=== PATIENT | male | born 1970 | race Caucasian/White ===

== ENCOUNTER 2023-12-22 18:06 | Inpatient (IN) | payer BC, SELFPAY ==
[2023-12-22 18:07] VITALS: BP 134/78; PULSE 90; RESP 18; TEMP 36.4; O2SAT 94
[2023-12-22 20:07] VITALS: BP 147/80; PULSE 78; RESP 17; O2SAT 98
[2023-12-22] MEDS: Ceftriaxone 1 GM/50 ML BAG IV (20:31)
[2023-12-22] MEDS: 0.9% Normal Saline (500mL Bag) 500 ML 999 ML IV (20:32)
[2023-12-22] MEDS: Morphine 4 MG/ML Syringe IV (20:50)
[2023-12-22] MEDS: Ondansetron 4 MG/2 ML Vial IV (20:50)
[2023-12-22 21:02] LABS: Lactic Acid 1.8 mmol/L (0.4-1.9)
[2023-12-22 21:10] LABS: Absolute Lymphocyte Count 2.21 X10^3/uL (0.83-4.51); Absolute Neutrophil Count 6.9 X10^3/uL (2.0-7.7); Basophil# 0.03 X10^3/uL; Basophil% 0.3 % (0-1); Hematocrit 51.8 % (40-54); Hemoglobin 16.8 g/dL (13.0-16.5); Lymphocyte # 2.21 X10^3/ul (0.83-4.51); Lymphocyte % 21.6 % (19-41); Mean Corp Hgb Conc 32.4 g/dL (32-36); Mean Corpuscular Hgb 29.2 pg (27.0-32.0); Mean Corpuscular Volume 89.9 fL (80-94); Mean Platelet Vol. 10.4 fl (6.2-12.0); Monocyte# 0.84 X10^3/uL; Monocyte% 8.2 % (0-10); NRBC Flagged by Analyzer 0 % (0-5); Neutrophil # 6.93 X10^3/uL (2.7-7.7); Neutrophil % 67.6 % (47-70); Platelet Count 324 K/mm3 (150-450); RBC Distribution Width CV 14.8 % (11.6-14.6); RBC Distribution Width SD 48.8 fl (35.1-43.9); Red Blood Count 5.76 M/mm3 (4.6-6.2); White Blood Count 10.2 K/mm3 (4.4-11.0)
[2023-12-22 21:16] LABS: International Normalized Ratio 1.1; Prothrombin Time (Protime)PT. 14.5 SECONDS (11.7-14.9)
[2023-12-22 21:17] LABS: Partial Thromboplast Time 29.6 Seconds (24.1-36.2)
[2023-12-22 21:27] VITALS: BP 168/105; PULSE 78; RESP 17; TEMP 36.6; O2SAT 99
[2023-12-22 21:30] LABS: ALB/GLOB Ratio 0.7 RATIO (0.9-2.4); AST(SGOT) 24 U/L (15-37); Alanine Aminotransfer ALT/SGPT 28 U/L (16-61); Albumin, Serum 3.3 g/dL (3.2-5.0); Alkaline Phosphatase 192 U/L (45-117); Anion Gap 4 (5-15); BUN 9 mg/dL (7-18); BUN/Creat Ratio 10.8 RATIO (10-20); Chloride 100 mmol/L (98-107); Creatinine, Serum 0.84 mg/dL (0.70-1.30); EST Glomerular Filtration Rate 103 mL/min (>60); Est Glom Filt Rate - Afr Amer 124 mL/min (>60); Globulin 4.9 g/dL (2.2-4.2); Glucose 98 mg/dL (74-106); Protein, Total 8.2 g/dL (6.4-8.2); Sodium Level 137 mmol/L (136-145)
--- NOTE | 2023-12-22 21:35 | RAD_ITS ---
INDICATION: BILATERAL EXTREMITY CELLULITIS EXAMINATION/TECHNIQUE: X-RAY - RIGHT XR Tibia/Fibula 2 Views COMPARISON: None. FINDINGS: SOFT TISSUES: Diffuse soft tissue swelling. No evidence of soft tissue gas. BONES/JOINTS: No fracture or dislocation. Severe degenerative changes of the knee. No erosive changes. RAD/Tibia & Fibula 2 Views IMPRESSION: Diffuse soft tissue swelling with no evidence of soft tissue gas and no acute osseous abnormality. Electronically Signed: Fernando Thomas DO at 22:06 EDT ,
--- NOTE | 2023-12-22 21:35 | RAD_ITS ---
INDICATION: Bilateral extremity cellulitis EXAMINATION/TECHNIQUE: X-RAY - LEFT XR Tibia/Fibula 2 Views COMPARISON: None. FINDINGS: SOFT TISSUES: Diffuse soft tissue swelling. No evidence of soft tissue gas. BONES/JOINTS: No fracture or dislocation. Severe degenerative changes of the knee. No erosive changes. RAD/Tibia & Fibula 2 Views IMPRESSION: Diffuse soft tissue swelling with no evidence of soft tissue gas and no acute osseous abnormality. Electronically Signed: Fernando Thomas DO at 22:07 EDT ,
--- NOTE | 2023-12-22 21:35 | RAD_ITS ---
INDICATION: sob EXAMINATION/TECHNIQUE: X-RAY - XR Chest 1 View COMPARISON: None. FINDINGS: LINES/DEVICES: None. LUNGS: No consolidation or evidence of an effusion. No evidence of edema or a pneumothorax. Pulmonary vascular congestion. MEDIASTINUM AND CARDIOVASCULAR STRUCTURES: Cardiac silhouette is normal in size and contour. Mediastinum is unremarkable. BONES AND SOFT TISSUES: No acute abnormality. RAD/Chest 1 View (Portable) IMPRESSION: Pulmonary vascular congestion. Electronically Signed: Fernando Thomas DO at 22:05 EDT ,
[2023-12-22 21:44] LABS: BNP,B-Type NATRIURETIC PEPTIDE 21.3 pg/mL (0-100)
[2023-12-22 22:00] VITALS: BP 102/76; PULSE 63; RESP 13; O2SAT 97
[2023-12-22 22:03] VITALS: BP 130/78; PULSE 84; RESP 16; TEMP 36.9; O2SAT 98
--- NOTE | 2023-12-22 22:04 | EX.ED.DYSGE1 ---
HPI History of Present Illness Chief Complaint: Wound Narrative Narrative: Patient is a 53-year-old male with no known significant past medical history does not follow with a physician on regular basis who presents to the emerged part with a chief complaint of bilateral lower extremity wounds. He states that he was recently admitted to [facility] for wounds to the bilateral lower extremities he states that he was given injections into his abdomen and that made him pee to get fluid off of him he states that he was given IV antibiotics however he states that he has not been on any antibiotics for quite some time now. He states that he has increasing redness and pain in the lower extremities prompting him to come here for further evaluation management today. Patient rates his pain a 7 out of 10 on exam bilaterally. Patient denies any history of blood clots. [facility] Medical History (Updated 12/22/23 @ 22:[address] Brennon Steiner DO) Tobacco abuse History of cellulitis Morbid obesity Medical History no medical history Allergy/AdvReac Type Severity Reaction Status Date / Time No Known Allergies Allergy Verified 12/22/23 18:07 Family History no significant family his Surgical History no surgical history Social History Smoking Status: Current every day smoker tobacco type: cigarettes ROS ROS ED ROS Narrative Constitutional: Complains of chills denies any fevers, headaches, lightness, dizziness Eyes: Denies any changes in vision double vision blurry vision Cardiovascular: Denies chest pain or palpitations Respiratory: Denies coughing wheezing shortness of breath Abdomen: Denies abdominal pain nausea vomit diarrhea : Denies any urinary symptoms Neurological: Denies numbness, weakness, tingling Musculoskeletal: Complains of bilateral extremity swelling and wounds as noted above Skin: Complains of lower extremity wounds as noted above EXAM Physical Exam Narrative Exam Narrative: General: Patient lying in bed did appear to be uncomfortable secondary to his leg pain Head: Atraumatic, normocephalic Eyes: PERRL bilaterally, EOMI bilateral, no conjunctival injection noted Neck: Soft, supple, trach midline Cardiovascular: Regular rate and rhythm no murmurs gallops rubs noted Respiratory: Clear to auscultation bilaterally Abdomen: Soft, no tenderness palpation Extremities: Patient has 2+ pitting edema in the bilateral lower extremities, +4/5 strength noted in the bilateral upper and lower extremities Neurological: Patient is following commands knew that he was at [facility] years 2023 Skin: Patient has bilateral lower extremity cellulitis noted on exam with chronic wounds in the lower extremities no purulent drainage noted Const Vital Signs: 12/22/23 18:07 12/22/23 20:07 12/22/23 20:26 Temperature 97.6 F L Temperature Source Temporal Pulse Rate 90 78 Respiratory Rate 18 17 Blood Pressure 134/78 H 147/80 H Blood Pressure Mean 96 102 Pulse Ox 94 98 Oxygen Delivery Method Room Air Room Air Room Air 12/22/23 21:27 12/22/23 22:00 12/22/23 22:03 Temperature 98 F 98.4 F Temperature Source Temporal Pulse Rate 78 63 84 Respiratory Rate 17 13 16 Blood Pressure 168/105 H 102/76 130/78 H Blood Pressure Mean 126 84 95 Pulse Ox 99 97 98 Oxygen Delivery Method MDM MDM MDM Narrative Medical decision making narrative: Patient is a 53-year-old male who presented to the emergency department chief complaint of bilateral lower extremity swelling and wounds. Patient will have a workup performed here on the differential diagnose includes Melamin to bilateral lower extremity cellulitis, CHF, osteomyelitis. Once workup is obtained reviewed he will be reevaluated. Patient will be given IV fluids however will not be given the full 30 cc/kg bolus as there is concern for a component of CHF exacerbation/volume overload. Patient be given vancomycin and Rocephin. Once the labs are obtained and reviewed he will be reevaluated. Patient CBC reviewed and was largely unremarkable no evidence leukocytosis white blood count normal at 10.2, hemoglobin was 16.8, platelet count normal at 324. Patient's INR normal 1.1, sodium normal 137, potassium normal at 4, creatinine normal at 0.84. Patient's AST and ALT were normal at 24 and 28 respectively, lactic acid normal 1.8, proBNP normal at 21.3. Patient's EKG reviewed showed sinus rhythm with a rate of 81 bpm. Patient's x-rays reviewed of his chest and showed concern for pulmonary vascular congestion. Patient's x-ray of his tibia-fibula is showed diffuse soft tissue swelling with no evidence of soft tissue gas and no osseous abnormality. Patient's x-ray of his tibia-fibula on the right showed diffuse soft tissue swelling as well no evidence of gas or any osseous abnormality. At this point in time do believe the patient will warrant admission to the hospital for his bilateral lower extremity cellulitis and likely volume overload status. Patient's case was discussed with hospitalist Dr. Pérez who accept patient for admission. Patient was notified with all question concerns answered at bedside. Lab Data Labs: Laboratory Results - last 24 hr 12/22/23 12/22/23 12/22/23 20:10 20:15 22:21 WBC 10.2 RBC 5.76 Hgb 16.8 H Hct 51.8 MCV 89.9 MCH 29.2 MCHC 32.4 RDW Std Deviation 48.8 H RDW Coeff of Pradeep 14.8 H Plt Count 324 MPV 10.4 Immature Gran % (Auto) 0.300 Neut % (Auto) 67.6 Lymph % (Auto) 21.6 [place] % (Auto) 8.2 Eos % (Auto) 2.0 Baso % (Auto) 0.3 Absolute Neuts (auto) 6.9 Absolute Lymphs (auto) 2.21 Nucleated RBC % 0 PT 14.5 INR 1.1 APTT 29.6 Sodium 137 Potassium 4.0 Chloride 100 Carbon Dioxide 33.0 H Anion Gap 4 L BUN 9 Creatinine 0.84 Est GFR (MDRD) Af Amer 124 Est GFR (MDRD) Non-Af 103 BUN/Creatinine Ratio 10.8 Glucose 98 Lactic Acid 1.8 Calcium 9.0 Total Bilirubin 0.90 AST 24 ALT 28 Alkaline Phosphatase 192 H B-Natriuretic Peptide 21.3 Cancelled Total Protein 8.2 Albumin 3.3 Globulin 4.9 H Albumin/Globulin Ratio 0.7 L Radiography Diagnostic Testing: Clinical Impression(s) from Imaging Studies Chest X-Ray 12/22/23 21:35 IMPRESSION: Pulmonary vascular congestion. Electronically Signed: Fernando Thomas DO at 22:05 EDT , Tibia/Fibula X-Ray 12/22/23 21:35 IMPRESSION: Diffuse soft tissue swelling with no evidence of soft tissue gas and no acute osseous abnormality. Electronically Signed: Fernando Thomas DO at 22:07 EDT , Tibia/Fibula X-Ray 12/22/23 21:35 IMPRESSION: Diffuse soft tissue swelling with no evidence of soft tissue gas and no acute osseous abnormality. Electronically Signed: Fernando Thomas DO at 22:06 EDT , Discharge Plan Triage Chief Complaint: Wound ED Provider: Brennon Steiner Dx/Rx/DC Orders Clinical Impression: Edema, Cellulitis Primary Care Provider: Care Physician,No Primary
--- NOTE | 2023-12-22 22:23 | PCM.HP.STD ---
HPI - General General Date of Admission: 12/22/23 Date of Service: 12/22/23 Chief Complaint: Bilateral leg pain, swelling, wounds HPI Narrative AZALIA MARTÍNEZ, is a 53 M who presented to the emergency department at [facility] on 12/22/2019 for with worsening bilateral lower extremity swelling, pain, and wounds that have been present for some time. The patient reports that he had recently been admitted at [facility]. He reported that since his discharge he is getting worse. He denies any knowledge of being treated with antibiotics there and states he takes no chronic medications and has been on no medications recently. He has a friend at the bedside who has been assisting in taking care of him. 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 He states he was told his oxygen levels drop at night but have never been tested for sleep apnea. He denies any chest pain or shortness of breath but states his swelling in his legs has been worsening. He does admit to tobacco abuse. Vital signs on presentation showed temperature of 97.6, heart rate 90, blood pressure 134/78, pulse ox 94% on room air. CBC shows erythrocytosis but is otherwise unremarkable with no leukocytosis or left shift. Coags are normal. Chemistry panel is normal except elevated serum bicarb of 33 which I highly suspect is chronic. Glucose level is normal. Lactic acid was 1.8. Liver functions are unremarkable. UA is not consistent with infection. Chest x-ray shows pulmonary vascular congestion but is otherwise unremarkable. Bilateral tibia and fibula films shows soft tissue changes with no deep changes or pocketing/abscess. He was treated with ceftriaxone emergency department and request for admission was made. [facility] Medical History (Updated 12/23/23 @ 00:50 by Cleo Moses) COPD (chronic obstructive pulmonary disease) Tobacco abuse History of cellulitis Morbid obesity Medical History no medical history Home Medications ?Medication ?Instructions ?Recorded ?Last Taken ?Type NK 12/22/23 Unknown History Allergy/AdvReac Type Severity Reaction Status Date / Time No Known Allergies Allergy Verified 12/22/23 18:07 Family History no significant family his no significant family history Surgical History (Updated 12/23/23 @ 00:50 by Cleo Moses) History of appendectomy Surgical History no surgical history Social History (Updated 12/23/23 @ 00:[address] 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 Smoking Status: Current every day smoker tobacco type: cigarettes alcohol intake: never substance use type: does not use ROS Constitutional Constitutional: Denies anorexia, change in weight, chills, fatigue, fever(s), malaise, night sweats, weakness or other Eyes Eyes: Denies blurry vision, change in eye color, change in vision, discharge from eye(s), double vision, erythema, eye pain, loss of vision or other ENT HEENT: Denies abnormal hearing, dysphagia, ear pain, epistaxis, headache(s), hearing loss, nasal congestion, nasal discharge, post nasal drip, sinus pressure, sore throat or other Cardiovascular Cardiovascular: Reports edema; Denies chest pain, claudication, dyspnea on exertion, lightheadedness, orthopnea, palpitations, paroxysmal nocturnal dyspnea, rapid heart rate, syncope or other Respiratory/Chest Respiratory/Chest: Denies cough, dyspnea, excessive phlegm production, hemoptysis, productive cough, shortness of breath at rest, shortness of breath with exertion, wheezing or other Gastrointestinal Gastrointestinal: Denies abdominal pain, coffee ground emesis, constipation, diarrhea, dyspepsia, hematemesis, hematochezia, loose stools, melena, nausea, vomiting or other Genitourinary Genitourinary: Denies burning urination, difficulty urinating, dysuria, hematuria, nocturia, urinary frequency, urinary hesitancy, urinary incontinence, urinary urgency or other Musculoskeletal Musculoskeletal: Reports back pain, joint pain and joint stiffness; Denies arthralgias, joint swelling, myalgias, neck pain or other Integumentary Integumentary: Reports dry skin, lesions, rash and wounds; Denies jaundice, new lesions, pruritus or other Neurologic Neurologic: Denies abnormal gait, abnormal speech, confusion, disequilibrium, dizziness, focal weakness, headache(s), numbness, paresthesias, seizure-like activity, seizures, syncope, tingling, tremor(s) or other Psychiatric Psychiatric: Denies anxiety, depression, homicidal ideation, suicidal ideation or other Endocrine Endocrinology: Denies change in body appearance, cold intolerance, excessive sweating, heat intolerance, polydipsia, polyuria or other Hematologic/Lymphatic Hematologic/Lymphatic: Denies anemia, easy bleeding, easy bruising, lymphadenopathy or other Allergic/Immunologic Allergic/Immunologic: Denies rhinitis, hives, eczemia, asthma or other Vital Signs Vital Signs Vital Signs: 12/22/23 18:07 12/22/23 20:07 12/22/23 20:26 Temperature 97.6 F L Temperature Source Temporal Pulse Rate 90 78 Respiratory Rate 18 17 Blood Pressure 134/78 H 147/80 H Blood Pressure Mean 96 102 Pulse Ox 94 98 Oxygen Delivery Method Room Air Room Air Room Air 12/22/23 21:27 12/22/23 22:00 12/22/23 22:03 Temperature 98 F 98.4 F Temperature Source Temporal Pulse Rate 78 63 84 Respiratory Rate 17 13 16 Blood Pressure 168/105 H 102/76 130/78 H Blood Pressure Mean 126 84 95 Pulse Ox 99 97 98 Oxygen Delivery Method Physical Exam Const alert, oriented x3, no apparent distress and well nourished; Negative for average body habitus or healthy appearing Constitutional Narrative: Super morbidly obese, white male, sitting up in a bed, appears comfortable, does not appear toxic, friend at bedside, somewhat disheveled General Appearance: cooperative HEENT normocephalic, head/scalp atraumatic, hearing grossly normal bilaterally and moist oral mucous membranes HEENT Narrative: Mallampati is 3, dentition is poor, no thrush Eyes PERRL, EOMs intact bilaterally and conjunctivae normal Eyes Narrative: No scleral icterus Neck no lymphadenopathy and supple Neck Narrative: Neck is short and thick, trachea midline, no thyroid enlargement Resp normal respiratory effort, no retractions, no use of accessory muscles and clear to auscultation bilaterally Resp Narrative: Distant breath sounds due to body habitus, diminished diffusely without any adventitious sounds Auscultation: Negative for crackles, rhonchi or wheezes Cardio regular rate, regular rhythm, S1 normal heart sound, S2 normal heart sound, no murmurs, no rub, no gallops and no clicks Cardio Narrative: Distant heart tones GI normal to inspection, nondistended, normoactive bowel sounds, soft to palpation and non-tender GI Narrative: Large protuberant abdomen Extremity Extremity Narrative: 3+ bilateral lower extremity edema, no cyanosis or clubbing, significant onychomycosis Skin No no rashes or lesions noted, No no wounds, skin turgor normal, no jaundice, no petechiae and no mottling Skin Narrative: Bilateral lower extremities with erythema and edema and tenderness to palpation, multiple superficial wounds noted with purulent drainage from ankle to knee area Neuro oriented x3, CN's II-XII intact bilaterally, moves all extremities and no focal motor deficits Speech: speech normal Psych affect normal Psych Narrative: Eye contact is good and patient interacts appropriately Results Lab / Micro Data 12/22/23 20:10 12/22/23 20:10 Labs: Laboratory Results - last 24 hr 12/22/23 20:10: WBC 10.2, RBC 5.76, Hgb 16.8 H, Hct 51.8, MCV 89.9, MCH 29.2, MCHC 32.4, RDW Std Deviation 48.8 H, RDW Coeff of Pradeep 14.8 H, Plt Count 324, MPV 10.4, Immature Gran % (Auto) 0.300, Neut % (Auto) 67.6, Lymph % (Auto) 21.6, [place] % (Auto) 8.2, Eos % (Auto) 2.0, Baso % (Auto) 0.3, Absolute Neuts (auto) 6.9, Absolute Lymphs (auto) 2.21, Nucleated RBC % 0, PT 14.5, INR 1.1, APTT 29.6, Sodium 137, Potassium 4.0, Chloride 100, Carbon Dioxide 33.0 H, Anion Gap 4 L, BUN 9, Creatinine 0.84, Est GFR (MDRD) Af Amer 124, Est GFR (MDRD) Non-Af 103, BUN/Creatinine Ratio 10.8, Glucose 98, Calcium 9.0, Total Bilirubin 0.90, AST 24, ALT 28, Alkaline Phosphatase 192 H, B-Natriuretic Peptide 21.3, Total Protein 8.2, Albumin 3.3, Globulin 4.9 H, Albumin/Globulin Ratio 0.7 L 12/22/23 20:15: Lactic Acid 1.8 Imaging Radiology Impression Chest X-Ray 12/22/23 21:35 IMPRESSION: Pulmonary vascular congestion. Electronically Signed: Fernando Thomas DO at 22:05 EDT , Tibia/Fibula X-Ray 12/22/23 21:35 IMPRESSION: Diffuse soft tissue swelling with no evidence of soft tissue gas and no acute osseous abnormality. Electronically Signed: Fernando Thomas DO at 22:07 EDT , Tibia/Fibula X-Ray 12/22/23 21:35 IMPRESSION: Diffuse soft tissue swelling with no evidence of soft tissue gas and no acute osseous abnormality. Electronically Signed: Fernando ThomasDO at 22:06 EDT , Assessment & Plan Assessment/Plan (1) Cellulitis: (2) Edema: (3) Metabolic alkalosis: (4) Erythrocytosis: PLAN: Plan Bilateral lower extremity wounds and cellulitis -Check cultures of wounds -Blood cultures are pending -Elevate bilateral lower extremities -Wound care consultation -Check MRSA wound PCR -Will cover with broad-spectrum antibiotics for now with vancomycin and Zosyn Lower extremity edema -Highly suspect patient has some component of right-sided heart failure due to untreated sleep apnea -Check echocardiogram -Lasix 40 mg 3 times daily for now -Fluid restrict and sodium restrict diet Metabolic alkalosis -Highly suspect compensatory for respiratory acidosis -Highly suspect patient has obstructive sleep apnea -Should be assessed after discharge for SINA if patient agreeable -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
--- NOTE | 2023-12-22 22:28 | ECHOCS_ITS ---
Reason For Study: CHF Procedure This was a 2D Doppler, Color Flow transthoracic echocardiogram. The study was technically difficult. The study was technically limited. Limited views were obtained. Contrast injection was performed. Due to body habitus. Exam performed portable in patient room. Left Ventricle The left ventricle is not well visualized. The left ventricular ejection fraction is 65 %. Unable to assess diastolic function based on available data. Right Ventricle The right ventricle is not well visualized. Atria The left atrium is not well visualized. The right atrium is not well visualized. Mitral Valve Mitral valve not well visualized. Tricuspid Valve The tricuspid valve is not well visualized. Aortic Valve The aortic valve is not well visualized. Pulmonic Valve The pulmonic valve is not well visualized. Great Vessels The aortic root is not well visualized. Pericardium/Pleural No pericardial effusion. Medication Diluted definity 9.0ml given slow IV push to enhance endocardial definition. MMode/2D Measurements & Calculations LVIDd: 5.4 cm IVSd: 1.2 cm Ao root diam: 3.0 cm LVIDs: 3.5 cm LVPWd: 1.2 cm FS: 35.7 % LVAd ap4: 34.0 cm2 SV(MOD-sp4): 68.8 ml SV(sp4-el): 71.7 ml LVLd ap4: 8.6 cm EDV(MOD-sp4): 112.2 ml EDV(sp4-el): 114.6 ml LVAs ap4: 20.0 cm2 LVLs ap4: 7.9 cm ESV(MOD-sp4): 43.4 ml ESV(sp4-el): 42.9 ml EF(MOD-sp4): 61.3 % EF(sp4-el): 62.5 % LA dimension(2D): 3.2 cm Doppler Measurements & Calculations PA V2 max: 86.7 cm/sec PA V2 mean: 55.5 cm/sec PA V2 VTI: 14.4 cm ECHO/Echo Complete W/ Contrast Interpretation Summary Technically difficult study with suboptimal images. The left ventricular ejection fraction is estimated at 65%. Ordering Physician: Irena Pérez Referring Physician: SARAI PCP Performed By: Farheen Mendez RDCS, RVT
[2023-12-22 22:49] LABS: Squamous Epithelial Cells - UA 0 SEEN /hpf (0-5)
[2023-12-22] MEDS: Ketorolac 15 MG/ML Vial IV (22:49)
[2023-12-22 22:58] LABS: Color, Urine Yellow (Yellow); Glucose, Dipstick Normal (Normal); Ketone-Dipstick 5 mg/dl (Negative); Leukocyte Esterase-Dipstick 25 /ul (Negative); Nitrite-Dipstick Negative (Negative); Occult Blood-Urine Negative /ul (Negative); Protein-Dipstick 30 mg/dl (Negative); Specific Gravity, Urine 1.025 (1.002-1.030); Urine Clarity Sl. Cloudy (Clear); Urine Urobilinogen 4 mg/dl (Normal)
[2023-12-22 23:00] VITALS: BP 122/52; PULSE 76; RESP 12; TEMP 36.6; O2SAT 97
[2023-12-22 23:08] LABS: Bacteria 1+ /hpf (None Seen); Mucous, Urine 1+ /hpf (<or=2+); Red Blood Cells-Urine 0-5 SEEN /hpf (0-5); Urine Bilirubin Dipstick 1 mg/dL (Negative); White Blood Cells 0-5 SEEN /hpf (0-5)
[2023-12-23] VITALS (15 sets, daily range): BP systolic 119–147; BP diastolic 65–86; PULSE 71–82; RESP 16–20; TEMP 36.4–36.8; O2SAT 76–96; BMI 65.0; BMI 64.8
--- NOTE | 2023-12-23 00:58 | VDLE_ITS ---
Reason For Study: BLE Swelling RIGHT LEFT GSV is normal. GSV is normal. CFV is compressible, spontaneous, phasic, CFV is compressible, spontaneous, phasic, competent and demonstrates normal competent, and demonstrates normal augmentation. augmentation. FV is compressible, spontaneous, phasic, FV is compressible, spontaneous, phasic, competent and demonstrates normal competent and demonstrates normal augmentation. augmentation. POP V is compressible, spontaneous, phasic, POP V is compressible, spontaneous, phasic, competent and demonstrates normal competent and demonstrates normal augmentation. augmentation. T/P Trunk is compressible. T/P Trunk is compressible. PTV is compressible. PTV is compressible. RT PerV is compressible. LT PerV is compressible. Procedure This is a venous duplex using B-mode, color flow and spectral Doppler. Exam performed in department. The exam was diagnostic. The study was technically difficult. Limited views were obtained. A preliminary report was called and/or faxed to M/S 3 RN. VL/Venous Duplex US - Sammy Extrem Interpretation Summary Deep veins of the lower extremities are bilaterally patent and compressible seg mentally. There is no evidence of deep vein thrombosis on either side. Valvular competence appears in tact within the proximal deep venous systems bilaterally. The great saphenous veins appear bila terally patent and compressible segmentally. Ordering Physician: Irena Pérez Performed By: Chris Lozada, RVT
[2023-12-23] MEDS: Vancomycin HCl 2,000 MG in 0.9% Normal Saline (500mL Bag) 500 ML 250 MG IV (01:31)
[2023-12-23] MEDS: oxyCODONE 5 MG Tablet PO ×3 (01:40→19:51)
[2023-12-23] MEDS: MELATONIN 3 MG TABLET PO (01:41)
[2023-12-23] MEDS: Acetaminophen 325 MG Tablet 650 MG PO ×3 (01:41→19:51)
[2023-12-23] MEDS: Furosemide 40 MG/4 ML Vial IV ×4 (01:41→22:03)
[2023-12-23] MEDS: Senna/Docusate Sodium 1 Tablet 2 TABLET PO (02:09)
--- NOTE | 2023-12-23 02:18 | PCM.RX.CS ---
Consult Antibiotic Management Pharmacy has been consulted to manage selected antibiotic: Vancomycin Type of Intervention Type of Consult: New start Labs Labs: Sodium 137 mmol/L (136-145) 12/22/23 20:10 Potassium 4.0 mmol/L (3.5-5.1) 12/22/23 20:10 Chloride 100 mmol/L (98-107) 12/22/23 20:10 Carbon Dioxide 33.0 mmol/L (21.0-32.0) H 12/22/23 20:10 Anion Gap 4 (5-15) L 12/22/23 20:10 BUN 9 mg/dL (7-18) 12/22/23 20:10 Creatinine 0.84 mg/dL (0.70-1.30) 12/22/23 20:10 Est GFR (MDRD) Af Amer 124 mL/min (>60) 12/22/23 20:10 Est GFR (MDRD) Non-Af 103 mL/min (>60) 12/22/23 20:10 BUN/Creatinine Ratio 10.8 RATIO (10-20) 12/22/23 20:10 Glucose 98 mg/dL (74-106) 12/22/23 20:10 Dosing Weight Weight used for dosin.3 kg Estimated Creatinine Clearance Estimated Creatinine Clearance: >120 Goal Trough Goal Trough: 15-20 mcg/mL Pharmacy Plan for Drug Dosing Pharmacy Plan for Drug Dosing: Pharmacy Service will continue to monitor and adjust dosing as required. LOADING DOSE 2GM. 1500MG Q8H TROUGH PRIOR TO 4TH DOSE Follow-Up Labs Follow-Up Labs: Trough: Vancomycin Date/Time Labs Ordered Labs to be done on [date and time ordered]: 12/23 @ 0100
[2023-12-23] MEDS: Piperacil/Tazobactam 3.375 GM in 0.9% Normal Saline (50mL MB+) 50 ML IV ×3 (06:02→22:04)
[2023-12-23 07:07] LABS: Absolute Lymphocyte Count 1.69 X10^3/uL (0.83-4.51); Absolute Neutrophil Count 3.9 X10^3/uL (2.0-7.7); Basophil# 0.05 X10^3/uL; Basophil% 0.8 % (0-1); Eosinophil# 0.24 X10^3/uL; Eosinophils% 3.6 % (0-5); Hematocrit 51.2 % (40-54); Hemoglobin 16.1 g/dL (13.0-16.5); Lymphocyte # 1.69 X10^3/ul (0.83-4.51); Lymphocyte % 25.7 % (19-41); Mean Corp Hgb Conc 31.4 g/dL (32-36); Mean Corpuscular Hgb 28.6 pg (27.0-32.0); Mean Corpuscular Volume 91.1 fL (80-94); Mean Platelet Vol. 9.3 fl (6.2-12.0); Monocyte# 0.71 X10^3/uL; Monocyte% 10.8 % (0-10); NRBC Flagged by Analyzer 0 % (0-5); Neutrophil # 3.88 X10^3/uL (2.7-7.7); Neutrophil % 58.9 % (47-70); Platelet Count 262 K/mm3 (150-450); RBC Distribution Width CV 14.6 % (11.6-14.6); RBC Distribution Width SD 48.8 fl (35.1-43.9); Red Blood Count 5.62 M/mm3 (4.6-6.2); White Blood Count 6.6 K/mm3 (4.4-11.0)
--- NOTE | 2023-12-23 07:30 | PN.HOSP_ITS ---
Reason for Visit Reason for Visit: Diagnoses Secondary polycythemia (12/22/23) Alkalosis (12/22/23) Cellulitis, unspecified (12/22/23) Edema, unspecified (12/22/23) Subjective Subjective Patient is a 53-year-old gentleman with chronic lower extremity wounds presented to the emergency department with increasing redness and pain Objective Data Objective Data Vital Signs: Vital Signs Temp Pulse Resp BP Pulse Ox O2 Del Method O2 Flow Rate 97.7 F L 72 16 137/80 H 93 Nasal Cannula 2 12/23/23 06:08 12/23/23 06:08 12/23/23 06:08 12/23/23 06:08 12/23/23 06:08 12/23/23 06:08 12/23/23 06:08 Oxygen Flow Rate (L/min) 2 Oxygen Delivery Method Nasal Cannula Weight: 217.3 kg Body Mass Index (BMI) 64.8 Intake & Output: Intake and Output for Last 24 Hours 12/21/23 12/22/23 12/23/23 23:59 23:59 23:59 Intake Total 550 / 550 740 / 740 Output Total 1000 / 1000 Balance 550 / 550 -260 / -260 Lab / Micro Data 12/23/23 06:48 12/23/23 06:48 Labs: Laboratory Results - last 24 hr 12/22/23 20:10: WBC 10.2, RBC 5.76, Hgb 16.8 H, Hct 51.8, MCV 89.9, MCH 29.2, MCHC 32.4, RDW Std Deviation 48.8 H, RDW Coeff of Pradeep 14.8 H, Plt Count 324, MPV 10.4, Immature Gran % (Auto) 0.300, Neut % (Auto) 67.6, Lymph % (Auto) 21.6, [place] % (Auto) 8.2, Eos % (Auto) 2.0, Baso % (Auto) 0.3, Absolute Neuts (auto) 6.9, Absolute Lymphs (auto) 2.21, Nucleated RBC % 0, PT 14.5, INR 1.1, APTT 29.6, Sodium 137, Potassium 4.0, Chloride 100, Carbon Dioxide 33.0 H, Anion Gap 4 L, BUN 9, Creatinine 0.84, Est GFR (MDRD) Af Amer 124, Est GFR (MDRD) Non-Af 103, BUN/Creatinine Ratio 10.8, Glucose 98, Calcium 9.0, Total Bilirubin 0.90, AST 24, ALT 28, Alkaline Phosphatase 192 H, B-Natriuretic Peptide 21.3, Total Protein 8.2, Albumin 3.3, Globulin 4.9 H, Albumin/Globulin Ratio 0.7 L 12/22/23 20:15: Lactic Acid 1.8 12/22/23 22:21: B-Natriuretic Peptide Cancelled 12/22/23 22:45: Urine Color Yellow, Urine Clarity Sl. Cloudy, Urine pH 5.0, Ur Specific [place] 1.025, Urine Protein 30 H, Urine Glucose (UA) Normal, Urine Ketones 5 H, Urine Occult Blood Negative, Urine Nitrite Negative, Urine Bilirubin 1 H, Urine Urobilinogen 4 H, Ur Leukocyte Esterase 25 H, Urine RBC 0-5 SEEN, Urine WBC 0-5 SEEN, Ur Squamous Epith Cells 0 SEEN, Urine Bacteria 1+, Urine Mucus 1+ 12/23/23 06:48: WBC 6.6, RBC 5.62, Hgb 16.1, Hct 51.2, MCV 91.1, MCH 28.6, MCHC 31.4 L, RDW Std Deviation 48.8 H, RDW Coeff of Pradeep 14.6, Plt Count 262, MPV 9.3, Immature Gran % (Auto) 0.200, Neut % (Auto) 58.9, Lymph % (Auto) 25.7, [place] % (Auto) 10.8 H, Eos % (Auto) 3.6, Baso % (Auto) 0.8, Absolute Neuts (auto) 3.9, Absolute Lymphs (auto) 1.69, Nucleated RBC % 0 Micro: Microbiology 12/23/23 01:55 Wound - Leg Skin and Soft Tissue MRSA/MSSA (PCR - Final Radiography Diagnostic Testing: Radiology Impression Chest X-Ray 12/22/23 21:35 IMPRESSION: Pulmonary vascular congestion. Electronically Signed: Fernando Thomas DO at 22:05 EDT , Tibia/Fibula X-Ray 12/22/23 21:35 IMPRESSION: Diffuse soft tissue swelling with no evidence of soft tissue gas and no acute osseous abnormality. Electronically Signed: Fernando Thomas DO at 22:07 EDT , Tibia/Fibula X-Ray 12/22/23 21:35 IMPRESSION: Diffuse soft tissue swelling with no evidence of soft tissue gas and no acute osseous abnormality. Electronically Signed: Fernando Thomas DO at 22:06 EDT , Physical Exam Narrative GENERAL: cooperative HEENT: Atraumatic; normocephalic EYES; Anicteric, Normal Conjunctiva NECK; supple, normal thyroid, RESPIRATORY: Diminished to auscultation CARDIOVASCULAR: Regular S1 S2, GI: soft, normoactive bowel sounds, : No Renal angle tenderness; EXTREMITIES: Bilateral stasis dermatitis MUSCULOSKELETAL: no muscle wasting NEURO: Awake; no lateralizing signs. SKIN: No Rash PSYCH; Flat affect Assessment & Plan Assessment/Plan (1) Cellulitis: (2) Edema: (3) Metabolic alkalosis: (4) Erythrocytosis: PLAN: Plan Patient is a 53-year-old gentleman with chronic lower extremity wounds presented to the emergency department with increasing redness and pain 1. Bilateral lower extremity wounds with cellulitis ? Patient has been admitted to regular nursing floor started on broad-spectrum antibiotic therapy with vancomycin and Zosyn. MRSA wound PCR was ordered with consultation placed to wound care nurse 2. Bilateral chronic venous stasis ? Patient seen in consultation by wound care. Patient may need compression stockings as outpatient 3. Suspected congestive heart failure with preserved ejection fraction ? Patient placed on diuretic therapy initiated strict input and output Daily weight as well as echo ordered for EF assessment 4. Class III obesity with BMI of 65 ? Complicating care weight loss advised 5. Tobacco dependence ? Counseled on cessation, offered nicotine patch for tobacco cravings 6. Polycythemia ? Suspected to be secondary to chronic hypoxia 7. Suspected sleep apnea ? Patient informed and advised to follow-up with primary care provider for sleep study as outpatient 8. Homelessness ? Impacting patient's care patient apparently lives in his truck 9. DVT prophylaxis ? On enoxaparin Time spent in the patient's overall evaluation,decision-making process, review of diagnostic data, adjustment of management, discussion with other providers, nursing nursing and ancillary staff involved in patient's care documentation, 52 Minutes Charges/Coding Visit Charges Inpatient E&M: 55809 Subs Hosp L3
[2023-12-23 08:18] LABS: Anion Gap 5 (5-15); BUN 9 mg/dL (7-18); BUN/Creat Ratio 12.2 RATIO (10-20); Calcium,Total 8.4 mg/dL (8.5-10.1); Chloride 101 mmol/L (98-107); Creatinine, Serum 0.74 mg/dL (0.70-1.30); EST Glomerular Filtration Rate 118 mL/min (>60); Est Glom Filt Rate - Afr Amer 143 mL/min (>60); Estimated Creatinine Clearance 220.46 ml/min; Glucose 120 mg/dL (74-106); Magnesium 2.2 mg/dL (1.6-2.6); Potassium 3.7 mmol/L (3.5-5.1); Sodium Level 136 mmol/L (136-145)
[2023-12-23] MEDS: Enoxaparin 40 MG/0.4 ML Syringe SC ×2 (09:07→22:04)
--- NOTE | 2023-12-23 09:07 | WOUNDNOTE ---
wound photo: right lower leg
[2023-12-23] MEDS: Menthol/Lanolin/Calamine/Znox 113 GM Tube 1 APPLIC TOPICAL (09:08)
[2023-12-23] MEDS: Nystatin Powder 15gm Bottle 1 APPLIC TOPICAL ×2 (09:08→22:03)
--- NOTE | 2023-12-23 09:08 | WOUNDNOTE ---
wound photo: right posterolateral lower leg
--- NOTE | 2023-12-23 09:08 | WOUNDNOTE ---
wound photo: left lower leg
--- NOTE | 2023-12-23 09:09 | WOUNDNOTE ---
wound photo: left posterior lower leg
[2023-12-23] MEDS: Vancomycin HCl 1,500 MG in 0.9% Normal Saline (500mL Bag) 500 ML 250 MG IV ×2 (09:13→17:02)
--- NOTE | 2023-12-23 09:50 | CASEMGMT ---
RN CM Face to Face with patient for initial transition planning/care coordination assessment. RN CM introduced self and role at [facility]. Patient lying in bed, alert and oriented. Patient willing to participate in assessment and is able to answer all questions appropriately. Care providers, pharmacy, and demographics verified. Strata: 1 PCP: No PCPGOLDEN to provide patient with list Specialists: none [facility]erred [facility]acy[facility] Insurance: [place] Prescription Benefit: yes Living Will/HPOA: none LNOK: friend Living Arrangements: Patient states he currently lives in his semi but just recently purchased a camper to stay in. Patient is independent and states he can perfom his own wound care. Transportation: self, friend DME/HHC: Patient has cane. Denies previous HHC or SNF Patient wishes to discharge home, denies need for home health at this time. Patient states he has no further needs or concerns at this time. CM to follow for discharge planning needs that may arise. Disposition Plan: Patient to discharge home with support from friends and follow-up plans in place. Fabby NUÑEZ, RN, CM
[2023-12-23 09:55] LABS: Phosphorus 4.1 mg/dL (2.5-4.9)
--- NOTE | 2023-12-23 10:49 | CASEMGMT ---
Discharge Planning PCP list sent to RN CM. Aishwarya Webb DC Planning Asst.
--- NOTE | 2023-12-23 15:08 | CASEMGMT ---
Addendum entered by Ana Castro 12/23/23 15:40: LADONNA provided list from [facility] for primary care providers. DARLEEN Holden Original Note: Social Work- SW met with pt, as it was reported that he lives in a semi that he drives. Pt also has a camper on a private lot in [place] that he resides in when he is not on the road. Pt states his primary residence is [facility]. Pt reports that he has no financial needs and needs no community information. SW will remain available to follow. DARLEEN Holden
[2023-12-23] MEDS: Juven (unflavored) Packet 1 PACKET PO (17:03)
[2023-12-24] VITALS (8 sets, daily range): BP systolic 128–136; BP diastolic 60–73; PULSE 69–84; RESP 16–20; TEMP 36.4–36.8; O2SAT 93–96; BMI 67.3
[2023-12-24] MEDS: oxyCODONE 5 MG Tablet PO ×4 (01:33→21:19)
[2023-12-24] MEDS: Acetaminophen 325 MG Tablet 650 MG PO ×3 (01:33→21:19)
[2023-12-24 02:02] LABS: Vancomycin, Trough Level 15.4 ug/mL (5.0-15.0)
[2023-12-24] MEDS: Vancomycin HCl 1,500 MG in 0.9% Normal Saline (500mL Bag) 500 ML 250 MG IV ×3 (02:25→17:44)
[2023-12-24] MEDS: Furosemide 40 MG/4 ML Vial IV ×3 (05:39→21:18)
[2023-12-24] MEDS: Piperacil/Tazobactam 3.375 GM in 0.9% Normal Saline (50mL MB+) 50 ML IV ×3 (05:39→21:18)
[2023-12-24 06:36] LABS: Absolute Lymphocyte Count 1.92 X10^3/uL (0.83-4.51); Absolute Neutrophil Count 3.6 X10^3/uL (2.0-7.7); Basophil# 0.05 X10^3/uL; Basophil% 0.8 % (0-1); Eosinophil# 0.27 X10^3/uL; Eosinophils% 4.2 % (0-5); Hematocrit 50.5 % (40-54); Hemoglobin 15.8 g/dL (13.0-16.5); Lymphocyte # 1.92 X10^3/ul (0.83-4.51); Lymphocyte % 30.1 % (19-41); Mean Corp Hgb Conc 31.3 g/dL (32-36); Mean Corpuscular Hgb 28.5 pg (27.0-32.0); Mean Corpuscular Volume 91.2 fL (80-94); Mean Platelet Vol. 9.3 fl (6.2-12.0); Monocyte# 0.55 X10^3/uL; Monocyte% 8.6 % (0-10); NRBC Flagged by Analyzer 0 % (0-5); Neutrophil # 3.56 X10^3/uL (2.7-7.7); Platelet Count 252 K/mm3 (150-450); RBC Distribution Width CV 14.6 % (11.6-14.6); Red Blood Count 5.54 M/mm3 (4.6-6.2); White Blood Count 6.4 K/mm3 (4.4-11.0)
[2023-12-24 07:07] LABS: Anion Gap 3 (5-15); BUN 14 mg/dL (7-18); BUN/Creat Ratio 19.1 RATIO (10-20); Calcium,Total 8.4 mg/dL (8.5-10.1); Chloride 98 mmol/L (98-107); Creatinine, Serum 0.73 mg/dL (0.70-1.30); EST Glomerular Filtration Rate 119 mL/min (>60); Est Glom Filt Rate - Afr Amer 144 mL/min (>60); Estimated Creatinine Clearance 228.91 ml/min; Glucose 142 mg/dL (74-106); Magnesium 2.2 mg/dL (1.6-2.6); Phosphorus 3.4 mg/dL (2.5-4.9); Potassium 3.5 mmol/L (3.5-5.1); Sodium Level 136 mmol/L (136-145)
--- NOTE | 2023-12-24 07:30 | PN.HOSP_ITS ---
Reason for Visit Reason for Visit: Diagnoses Secondary polycythemia (12/22/23) Alkalosis (12/22/23) Cellulitis, unspecified (12/22/23) Edema, unspecified (12/22/23) Subjective Subjective Patient seen much more interactive compared to previous day. Patient wound PCR came back positive for Staph aureus cultures however still pending Objective Data Objective Data Vital Signs: Vital Signs Temp Pulse Resp BP Pulse Ox O2 Del Method O2 Flow Rate 97.8 F 73 16 136/73 H 96 Nasal Cannula 3 12/24/23 05:37 12/24/23 05:37 12/24/23 05:37 12/24/23 05:37 12/24/23 05:37 12/24/23 05:37 12/24/23 05:37 Oxygen Flow Rate (L/min) 3 Oxygen Delivery Method Nasal Cannula Weight: 225.4 kg Body Mass Index (BMI) 67.3 Intake & Output: Intake and Output for Last 24 Hours 12/22/23 12/23/23 12/24/23 23:59 23:59 23:59 Intake Total 550 / 550 2650 / 3450 1380 / 1380 Output Total 4000 / 5550 2550 / 2550 Balance 550 / 550 -1350 / -2100 -1170 / -1170 Lab / Micro Data 12/24/23 06:14 12/24/23 06:14 Labs: Laboratory Results - last 24 hr 12/23/23 06:48: Sodium 136, Potassium 3.7, Chloride 101, Carbon Dioxide 30.0, Anion Gap 5, BUN 9, Creatinine 0.74, Estim Creat Clear Calc 220.46, Est GFR (MDRD) Af Amer 143, Est GFR (MDRD) Non-Af 118, BUN/Creatinine Ratio 12.2, G lucose 120 H, Calcium 8.4 L, Phosphorus 4.1, Magnesium 2.2, TSH 3.150 12/24/23 01:05: Vancomycin Trough 15.4 H 12/24/23 06:14: WBC 6.4, RBC 5.54, Hgb 15.8, Hct 50.5, MCV 91.2, MCH 28.5, MCHC 31.3 L, RDW Std Deviation 49.0 H, RDW Coeff of Pradeep 14.6, Plt Count 252, MPV 9.3, Immature Gran % (Auto) 0.300, Neut % (Auto) 56.0, Lymph % (Auto) 30.1, [place] % (Auto) 8.6, Eos % (Auto) 4.2, Baso % (Auto) 0.8, Absolute Neuts (auto) 3.6, Absolute Lymphs (auto) 1.92, Nucleated RBC % 0, Sodium 136, Potassium 3.5, Chloride 98, Carbon Dioxide 35.0 H, Anion Gap 3 L, BUN 14, Creatinine 0.73, Estim Creat Clear Calc 228.91, Est GFR (MDRD) Af Amer 144, Est GFR (MDRD) Non-Af 119, BUN/Creatinine Ratio 19.1, Glucose 142 H, Calcium 8.4 L, Phosphorus 3.4, Magnesium 2.2 Micro: Microbiology 12/23/23 01:55 Skin - Leg Gram Stain - Final 12/23/23 01:55 Wound - Leg Skin and Soft Tissue MRSA/MSSA (PCR - Final Staphylococcus aureus Radiography Diagnostic Testing: Radiology Impression Echocardiogram 12/22/23 22:28 Interpretation Summary Technically difficult study with suboptimal images. The left ventricular ejection fraction is estimated at 65%. Ordering Physician: Irena Pérez Referring Physician: SARAI PCP Performed By: Farheen Mendez, DIAMOND, RVT Venous Doppler Study 12/23/23 00:58 Interpretation Summary Deep veins of the lower extremities are bilaterally patent and compressible segmentally. There is no evidence of deep vein thrombosis on either side. Valvular competence appears intact within the proximal deep venous systems bilaterally. The great saphenous veins appear bilaterally patent and compressible segmentally. Ordering Physician: Irena Pérez Performed By: Chris Lozada RVT Physical Exam Narrative GENERAL: cooperative HEENT: Atraumatic; normocephalic EYES; Anicteric, Normal Conjunctiva NECK; supple, normal thyroid, RESPIRATORY: Diminished to auscultation CARDIOVASCULAR: Regular S1 S2, GI: soft, normoactive bowel sounds, : No Renal angle tenderness; EXTREMITIES: Bilateral stasis dermatitis; wrapped MUSCULOSKELETAL: no muscle wasting NEURO: Awake; no lateralizing signs. SKIN: No Rash PSYCH; Flat affect Assessment & Plan Assessment/Plan (1) Cellulitis: (2) Edema: (3) Metabolic alkalosis: (4) Erythrocytosis: PLAN: Plan Patient is a 53-year-old gentleman with chronic lower extremity wounds presented to the emergency department with increasing redness and pain 1. Bilateral lower extremity wounds with cellulitis ? Patient has been admitted to regular nursing floor started on broad-spectrum antibiotic therapy with vancomycin and Zosyn. MRSA wound PCR was ordered with consultation placed to wound care nurse ? 12/24/2023;Patient seen much more interactive compared to previous day. Patient wound PCR came back positive for Staph aureus cultures however still pending 2. Bilateral chronic venous stasis ? Patient seen in consultation by wound care. Patient may need compression stockings as outpatient 3. Suspected congestive heart failure with preserved ejection fraction ? Patient placed on diuretic therapy initiated strict input and output Daily weight as well as echo ordered for EF assessment 4. Class III obesity with BMI of 65 ? Complicating care weight loss advised 5. Tobacco dependence ? Counseled on cessation, offered nicotine patch for tobacco cravings 6. Polycythemia ? Suspected to be secondary to chronic hypoxia 7. Suspected sleep apnea ? Patient informed and advised to follow-up with primary care provider for sleep study as outpatient 8. Homelessness ? Impacting patient's care patient apparently lives in his truck 9. DVT prophylaxis ? On enoxaparin Time spent in the patient's overall evaluation,decision-making process, review of diagnostic data, adjustment of management, discussion with other providers, nursing nursing and ancillary staff involved in patient's care documentation, 38 minutes Charges/Coding Visit Charges Inpatient E&M: 52438 Subs Hosp L2
[2023-12-24] MEDS: Juven (unflavored) Packet 1 PACKET PO ×2 (10:00→17:44)
[2023-12-24] MEDS: Nystatin Powder 15gm Bottle 1 APPLIC TOPICAL (10:01)
[2023-12-24] MEDS: Menthol/Lanolin/Calamine/Znox 113 GM Tube 1 APPLIC TOPICAL (10:01)
[2023-12-24] MEDS: Enoxaparin 40 MG/0.4 ML Syringe SC ×2 (10:01→21:18)
[2023-12-25] MEDS: Vancomycin HCl 1,500 MG in 0.9% Normal Saline (500mL Bag) 500 ML 250 MG IV ×2 (02:00→10:23)
[2023-12-25 02:07] VITALS: BP 118/70; PULSE 74; RESP 18; TEMP 36.6; O2SAT 94
[2023-12-25] MEDS: Furosemide 40 MG/4 ML Vial IV (05:08)
[2023-12-25] MEDS: Piperacil/Tazobactam 3.375 GM in 0.9% Normal Saline (50mL MB+) 50 ML IV (05:09)
[2023-12-25 05:12] VITALS: BP 117/75; PULSE 85; RESP 18; TEMP 36.6; O2SAT 92
[2023-12-25 05:20] VITALS: BMI 67.3
[2023-12-25 06:41] LABS: Absolute Lymphocyte Count 2.03 X10^3/uL (0.83-4.51); Absolute Neutrophil Count 3.6 X10^3/uL (2.0-7.7); Basophil# 0.05 X10^3/uL; Basophil% 0.8 % (0-1); Eosinophil# 0.26 X10^3/uL; Eosinophils% 4.1 % (0-5); Hematocrit 51.2 % (40-54); Hemoglobin 16.2 g/dL (13.0-16.5); Lymphocyte # 2.03 X10^3/ul (0.83-4.51); Lymphocyte % 31.7 % (19-41); Mean Corp Hgb Conc 31.6 g/dL (32-36); Mean Corpuscular Hgb 28.5 pg (27.0-32.0); Mean Platelet Vol. 9.4 fl (6.2-12.0); Monocyte# 0.51 X10^3/uL; NRBC Flagged by Analyzer 0 % (0-5); Neutrophil # 3.55 X10^3/uL (2.7-7.7); Neutrophil % 55.2 % (47-70); Platelet Count 271 K/mm3 (150-450); RBC Distribution Width CV 14.2 % (11.6-14.6); RBC Distribution Width SD 46.6 fl (35.1-43.9); Red Blood Count 5.69 M/mm3 (4.6-6.2); White Blood Count 6.4 K/mm3 (4.4-11.0)
[2023-12-25] MEDS: Acetaminophen 325 MG Tablet 650 MG PO ×2 (06:50→13:07)
[2023-12-25] MEDS: oxyCODONE 5 MG Tablet PO ×2 (06:50→13:07)
--- NOTE | 2023-12-25 07:28 | PN.HOSP_ITS ---
Reason for Visit Reason for Visit: Diagnoses Secondary polycythemia (12/22/23) Alkalosis (12/22/23) Cellulitis, unspecified (12/22/23) Edema, unspecified (12/22/23) Subjective Subjective Patient seen plan is for patient to be assessed for possible discharge Objective Data Objective Data Vital Signs: Vital Signs Temp Pulse Resp BP Pulse Ox O2 Del Method O2 Flow Rate 97.8 F 85 18 117/75 92 Room Air 4 12/25/23 05:12 12/25/23 05:12 12/25/23 05:12 12/25/23 05:12 12/25/23 05:12 12/25/23 05:12 12/24/23 11:47 Oxygen Flow Rate (L/min) 4 Oxygen Delivery Method Room Air Weight: 225.4 kg Body Mass Index (BMI) 67.3 Intake & Output: Intake and Output for Last 24 Hours 12/23/23 12/24/23 12/25/23 23:59 23:59 23:59 Intake Total 2650 / 3450 3540 / 4340 2130 / 2130 Output Total 4000 / 5550 5150 / 7650 4500 / 4500 Balance -1350 / -2100 -1610 / -3310 -2370 / -2370 Lab / Micro Data 12/25/23 06:13 12/25/23 06:13 Labs: Laboratory Results - last 24 hr 12/25/23 06:13: WBC 6.4, RBC 5.69, Hgb 16.2, Hct 51.2, MCV 90.0, MCH 28.5, MCHC 31.6 L, RDW Std Deviation 46.6 H, RDW Coeff of Pradeep 14.2, Plt Count 271, MPV 9.4, Immature Gran % (Auto) 0.200, Neut % (Auto) 55.2, Lymph % (Auto) 31.7, [place] % (Auto) 8.0, Eos % (Auto) 4.1, Baso % (Auto) 0.8, Absolute Neuts (auto) 3.6, Absolute Lymphs (auto) 2.03, Nucleated RBC % 0 Micro: Microbiology 12/23/23 01:55 Skin - Leg Gram Stain - Final 12/23/23 01:55 Skin - Leg Wound Culture - Preliminary Mixed Gram Positive Organisms 12/22/23 22:45 Urine, Clean Catch Urine Culture - Final Mixed Gram Positive Organisms 12/23/23 01:55 Wound - Leg Skin and Soft Tissue MRSA/MSSA (PCR - Final Staphylococcus aureus Physical Exam Narrative GENERAL: cooperative HEENT: Atraumatic; normocephalic EYES; Anicteric, Normal Conjunctiva NECK; supple, normal thyroid, RESPIRATORY: Diminished to auscultation CARDIOVASCULAR: Regular S1 S2, GI: soft, normoactive bowel sounds, : No Renal angle tenderness; EXTREMITIES: Bilateral stasis dermatitis; wrapped MUSCULOSKELETAL: no muscle wasting NEURO: Awake; no lateralizing signs. SKIN: No Rash PSYCH; Flat affect Assessment & Plan Assessment/Plan (1) Cellulitis: (2) Edema: (3) Metabolic alkalosis: (4) Erythrocytosis: PLAN: Plan Patient is a 53-year-old gentleman with chronic lower extremity wounds presented to the emergency department with increasing redness and pain 1. Bilateral lower extremity wounds with cellulitis ? Patient has been admitted to regular nursing floor started on broad-spectrum antibiotic therapy with vancomycin and Zosyn. MRSA wound PCR was ordered with consultation placed to wound care nurse ? 12/24/2023;Patient seen much more interactive compared to previous day. Patient wound PCR came back positive for Staph aureus cultures however still pending ? 12/25/2023; final cultures reported as no growth plan is for patient to be discharged home 2. Bilateral chronic venous stasis ? Patient seen in consultation by wound care. Patient may need compression stockings as outpatient 3. Suspected congestive heart failure with preserved ejection fraction ? Patient placed on diuretic therapy initiated strict input and output Daily weight as well as echo ordered for EF assessment 4. Class III obesity with BMI of 65 ? Complicating care weight loss advised 5. Tobacco dependence ? Counseled on cessation, offered nicotine patch for tobacco cravings 6. Polycythemia ? Suspected to be secondary to chronic hypoxia 7. Suspected sleep apnea ? Patient informed and advised to follow-up with primary care provider for sleep study as outpatient 8. Homelessness ? Impacting patient's care patient apparently lives in his truck 9. DVT prophylaxis ? On enoxaparin Time spent in the patient's overall evaluation,decision-making process, review of diagnostic data, adjustment of management, discussion with other providers, nursing nursing and ancillary staff involved in patient's care documentation, 38 minutes
[2023-12-25] MEDS: Juven (unflavored) Packet 1 PACKET PO (07:59)
[2023-12-25 08:05] LABS: Anion Gap 5 (5-15); BUN 17 mg/dL (7-18); BUN/Creat Ratio 21.9 RATIO (10-20); Chloride 98 mmol/L (98-107); Creatinine, Serum 0.78 mg/dL (0.70-1.30); EST Glomerular Filtration Rate 112 mL/min (>60); Est Glom Filt Rate - Afr Amer 135 mL/min (>60); Estimated Creatinine Clearance 214.23 ml/min; Glucose 116 mg/dL (74-106); Potassium 3.8 mmol/L (3.5-5.1); Sodium Level 137 mmol/L (136-145)
[2023-12-25 08:12] VITALS: O2SAT 95
--- NOTE | 2023-12-25 09:13 | DS.PCM_ITS ---
Providers Date of Admission: 12/22/23 Date of Discharge: 12/25/23 Primary Care Physician: Deana Primary Care Phys Consultations 12/23/23 00:33 Consult: Onc/Wound/building wrecker Routine Comment: Reason For Visit: CELLULITIS/EDEMA Diagnosis Discharge Diagnosis (1) Cellulitis: Status: Acute Code(s): L03.90 - Cellulitis, unspecified (2) Edema: Status: Acute Code(s): R60.9 - Edema, unspecified (3) Metabolic alkalosis: Status: Acute Code(s): E87.3 - Alkalosis (4) Erythrocytosis: Status: Acute Code(s): D75.1 - Secondary polycythemia Plan Patient is a 53-year-old gentleman with chronic lower extremity wounds presented to the emergency department with increasing redness and pain 1. Bilateral lower extremity wounds with cellulitis ? Patient has been admitted to regular nursing floor started on broad-spectrum antibiotic therapy with vancomycin and Zosyn. MRSA wound PCR was ordered with consultation placed to wound care nurse ? 12/24/2023;Patient seen much more interactive compared to previous day. Patient wound PCR came back positive for Staph aureus cultures however still pending ? 12/25/2023; final cultures reported as no growth plan is for patient to be discharged home. Patient was discharged home with doxycycline. Instructions were written for patient to follow-up on the viral assessment clinic as well as the wound care center 2. Bilateral chronic venous stasis ? Patient seen in consultation by wound care. Patient may need compression stockings as outpatient 3. Suspected congestive heart failure with preserved ejection fraction ? Patient placed on diuretic therapy initiated strict input and output Daily weight as well as echo ordered for EF assessment ? 2D echo demonstrated ejection fraction of 65% 4. Class III obesity with BMI of 65 ? Complicating care weight loss advised 5. Tobacco dependence ? Counseled on cessation, offered nicotine patch for tobacco cravings 6. Polycythemia ? Suspected to be secondary to chronic hypoxia 7. Suspected sleep apnea ? Patient informed and advised to follow-up with primary care provider for sleep study as outpatient 8. Homelessness ? Impacting patient's care patient apparently lives in his truck 9. DVT prophylaxis ? On enoxaparin Time spent in the patient's overall evaluation,decision-making process, review of diagnostic data, adjustment of management, discussion with other providers, nursing nursing and ancillary staff involved in patient's care documentation, 38 minutes Medications at Discharge Home Medications acetaminophen 325 mg tablet 650 mg (2 x 325 mg) PO Q6H PRN PRN Pain 1-10 Or Fever >100.7 #0 tabs 12/25/23 doxycycline hyclate 100 mg tablet 100 mg PO BID #14 tabs 12/25/23 furosemide 40 mg tablet (Lasix) 40 mg PO DAILY #60 tabs 12/25/23 Physical Exam Narrative GENERAL: cooperative HEENT: Atraumatic; normocephalic EYES; Anicteric, Normal Conjunctiva NECK; supple, normal thyroid, RESPIRATORY: Diminished to auscultation CARDIOVASCULAR: Regular S1 S2, GI: soft, normoactive bowel sounds, : No Renal angle tenderness; EXTREMITIES: Bilateral stasis dermatitis; wrapped MUSCULOSKELETAL: no muscle wasting NEURO: Awake; no lateralizing signs. SKIN: No Rash PSYCH; Flat affect Weight / BMI Weight Weight: 225.4 kg Body Mass Index (BMI) 67.3 ABG / Lab / Microbiology Data 12/25/23 06:13 12/25/23 06:13 Laboratory: Laboratory Results - last 24 hr 12/25/23 06:13: WBC 6.4, RBC 5.69, Hgb 16.2, Hct 51.2, MCV 90.0, MCH 28.5, MCHC 31.6 L, RDW Std Deviation 46.6 H, RDW Coeff of Pradeep 14.2, Plt Count 271, MPV 9.4, Immature Gran % (Auto) 0.200, Neut % (Auto) 55.2, Lymph % (Auto) 31.7, [place] % (Auto) 8.0, Eos % (Auto) 4.1, Baso % (Auto) 0.8, Absolute Neuts (auto) 3.6, Absolute Lymphs (auto) 2.03, Nucleated RBC % 0, Sodium 137, Potassium 3.8, Chloride 98, Carbon Dioxide 34.0 H, Anion Gap 5, BUN 17, Creatinine 0.78, Estim Creat Clear Calc 214.23, Est GFR (MDRD) Af Amer 135, Est GFR (MDRD) Non-Af 112, BUN/Creatinine Ratio 21.9 H, Glucose 116 H, Calcium 9.0 Microbiology: Microbiology 12/23/23 01:55 Skin - Leg Gram Stain - Final 12/23/23 01:55 Skin - Leg Wound Culture - Preliminary Mixed Gram Positive Organisms 12/22/23 22:45 Urine, Clean Catch Urine Culture - Final Mixed Gram Positive Organisms 12/23/23 01:55 Wound - Leg Skin and Soft Tissue MRSA/MSSA (PCR - Final Staphylococcus aureus D/C Instructions Discharge Diet: No restrictions Discharge Activity: Return to Normal Activity Call your doctor if you observe: Fever of 101 or Higher, Shortness of breath, Fainting spells and Chest pain Meaningful Use Info Meaningful Use Meaningful Use Diagnoses (Choose all that apply): CHF CHF FLAQUITO/ARB ordered at discharge?: No Reason FLAQUITO/ARB not ordered?: Not indicated Documented LVEF (%): 65 Ischemic Stroke Statin Dosing Therapy Reference: STATIN DOSE THERAPY REFERENCE: * Patients > 75 years receive moderate or high dose statin therapy. * Patients 75 years or YOUNGER should receive HIGH intensity statin dose unless contraindicated. You will be required to document reason for non-treatment if statin daily dose does not meet guidelines. HIGH DOSE STATIN THERAPY DAILY Atorvastatin > than or = to 40 mg Rosuvastatin > than or = to 20 mg Amlodipine + Atorvastatin > than or = to 2.5/40 mg Ezetimibe + Simvastatin 10/80 mg Simvastatin 80mg Discharge Plan Admission Admit Date/Time: 12/22/23 22:24 Attending Provider: Isma Parkinson Primary Care Provider: Care Physician,No Primary Consulting Providers: Irena Pérez Discharge Orders/Prescriptions Prescriptions: New furosemide [Lasix] 40 mg tablet 40 mg PO DAILY Qty: 60 0RF doxycycline hyclate 100 mg tablet 100 mg PO BID Qty: 14 0RF acetaminophen 325 mg Tablet 650 mg PO Q6H PRN PRN (Reason: Pain 1-10 Or Fever >100.7) Qty: 0 0RF Referrals / Follow Up: Keli Mitchell [Non-Staff] - Within 1 Week Care Physician,No Primary [Primary Care Provider] - Center,Wound [Non-Staff] - 12/28/23 Disposition Disposition (needs filled in before D/C Order can be placed): Home, Self Care
[2023-12-25] MEDS: Nystatin Powder 15gm Bottle 1 APPLIC TOPICAL (10:23)
[2023-12-25] MEDS: Menthol/Lanolin/Calamine/Znox 113 GM Tube 1 APPLIC TOPICAL (10:23)
[2023-12-25] MEDS: Enoxaparin 40 MG/0.4 ML Syringe SC (10:24)
[2023-12-25 10:30] VITALS: BP 122/75; PULSE 70; RESP 18; TEMP 36.6; O2SAT 93
[2023-12-25 11:00] VITALS: PULSE 70
[2023-12-25 15:30] VITALS: BP 132/70; PULSE 68; RESP 16; TEMP 36.8; O2SAT 98
== END 2023-12-25 16:43 | disposition home or self-care (01) | DRG 603 ==
LOC: ED 20:41 → MS3 22:34
PROVIDERS: Admitting Provider Internal Medicine; Emergency Provider Emergency Medicine; Visit Provider Internal Medicine
DX: L03.116 Cellulitis of left lower limb (principal); E87.29 Other acidosis; I50.30 Unspecified diastolic (congestive) heart failure; E87.3 Alkalosis; Z68.44 Body mass index [BMI] 60.0-69.9, adult; Z59.00 Homelessness unspecified; J44.9 Chronic obstructive pulmonary disease, unspecified; E66.01 Morbid (severe) obesity due to excess calories; G47.33 Obstructive sleep apnea (adult) (pediatric); F17.210 Nicotine dependence, cigarettes, uncomplicated; D75.1 Secondary polycythemia; I87.8 Other specified disorders of veins; L03.115 Cellulitis of right lower limb; R09.02 Hypoxemia; Z90.49 Acquired absence of other specified parts of digestive tract
CPT/HCPCS: 36415; 71045; 73590; 80048; 80053; 80202; 81001; 83605; 83735; 83880; 84100; 84443; 85025; 85610; 85730; 87040; 87070; 87077; 87086; 87088; 87186; 87205; 87640; 93005; 93306; 93970; 94668; 97161; 97165; 97802; 99285; J7040; Q9957; A4216; C8929; J1940; J2405

== ENCOUNTER 2023-12-28 14:17 | Outpatient (RCR) | payer BC, SELFPAY ==
[2023-12-28 14:43] VITALS: BP 158/90; PULSE 88; RESP 20; BMI 67.3
--- NOTE | 2023-12-28 16:06 | HP.PCM_ITS ---
History of Present Illness Date of Service: 12/28/23 Chief Complaint: Ulcers bilateral lower legs and edema History of Wound: 53 year old male presents with a one month history of bilateral leg ulcers, bilateral lower leg edema and a recent hospitalization for cellulitis of his lower legs bilaterally. He states that his legs were very swollen and they were draining a lot of clear/yellow fluid. 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 He was initially hospitalized in [facility]. He was discharged home. He then went to [facility] a few days later for increased redness, pain and edema of his lower legs. He was hospitalized 12/22/23 - 12/25/23 with cellulitis and edema of his lower legs bilaterally. He had wound cultures of his leg obtained on 12/23/23 which were positive for Staphylococcus pseuintermediu, Schaalia odotolyticus and Enterococus faecalis. He was discharged home on Doxycycline. Venous doppler done 12/23/23 which showed no evidence of DVT on either side. Deep veins of the lower extremities are bilaterally patent and compressible segmentally. Valvular competence appears to be intact within the proximal deep venous systems bilaterally. The great saphenous veins appear bilaterally patent and compression segmentally. He had a cardiac echo on 12/23/23 which showed left ventricular EF = 65%. He was discharged home using Calmoseptine cream on his legs and wrapping them with AP wraps for compression. He was referred to the wound healing center for further management on his leg ulcers. Today he denies fever, chills, nausea or vomiting. Progress of Wound: He has a cluster of ulcers on both his right and left lower legs. They are superficial, fibrous and very painful .He has hemosiderin staining of his lower legs and +2-+3 non pitting edema bilaterally. [facility] Medical History (Updated 12/28/23 @ 17:53 by Betty Dumont NP, PHARMACOLOGIST-C) COPD (chronic obstructive pulmonary disease) Tobacco abuse History of cellulitis Morbid obesity Home Medications ?Medication ?Instructions ?Recorded ?Last Taken ?Type doxycycline hyclate 100 mg tablet 100 mg PO BID #14 tabs 12/25/23 Unknown Rx furosemide 40 mg tablet (Lasix) 40 mg PO DAILY #60 tabs 12/25/23 Unknown Rx amoxicillin 875 mg-potassium 1 tab PO BID 10 days #20 tabs 12/28/23 Unknown Rx clavulanate 125 mg tablet Allergy/AdvReac Type Severity Reaction Status Date / Time No Known Allergies Allergy Verified 12/28/23 15:05 Family History Mother Cancer Father Cancer Surgical History (Updated 12/28/23 @ 17:43 by Betty Dumont NP, PHARMACOLOGIST-C) History of cholecystectomy History of appendectomy Social History (Updated 12/28/23 @ 17:46 by Betty Dumont NP, PHARMACOLOGIST-C) household members: friend(s) 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 Smoking Status: Current every day smoker tobacco type: cigarettes Smoking packs per day: 1.5 Smoking cigarettes per day: 30.0 Years smoked: 36 Smoking pack- years: 54.00 Tobacco: How many years used: 36 alcohol intake: never substance use type: does not use ROS Constitutional Constitutional: Denies chills or fever(s) Eyes Eyes: Reports none ENT HEENT: Reports none Cardiovascular Cardiovascular: Denies chest pain or dyspnea Respiratory/Chest Respiratory/Chest: Denies cough Gastrointestinal Gastrointestinal: Denies dyspepsia, nausea or vomiting Musculoskeletal Musculoskeletal: Reports none Integumentary Integumentary: Reports skin ulcer Neurologic Neurologic: Reports none Psychiatric Psychiatric: Reports none Endocrine Endocrinology: Reports systems reviewed and no addt'l complaints, except as documented Vital Signs Vital Signs Vital Signs: 12/28/23 14:43 Pulse Rate 88 Respiratory Rate 20 H Blood Pressure 158/90 H Blood Pressure Mean 112 Blood Pressure Source Monitor Blood Pressure Position Sitting Blood Pressure Location Left Forearm Oxygen Delivery Method Room Air Weight Weight: 497 lb Body Mass Index (BMI) 67.3 Physical Exam Const alert and oriented x3 General Appearance: cooperative HEENT normocephalic Head and Scalp: atraumatic Eyes General Eye: normal appearance of both eyes Neck full ROM Resp normal respiratory effort, normal air movement and clear to auscultation bilaterally Effort and Inspection: able to speak in complete sentences Cardio regular rate and regular rhythm Back/Spine normal ROM Extremity normal capillary refill Extremity Narrative: +2-+3 non pitting edema bilateral lower extremities. Peripheral Pulses: Yes pulses 2+ throughout Skin Wound Narrative: Right and left lower anterior legs have a cluster of ulcers that are superficial with fibrous, dark red ulcer bed that are fibrous. They are very painful to touch. Neuro oriented x3 and moves all extremities Psych mental status grossly normal, thought process normal and cooperative Appearance: appropriate Debridement Note Debridement Note Wound debrided: lower anterior leg ulcer cluster Laterality: Right Wound Grade/Stage: StageIII Type of Debridement: Excisional debridement Anesthesia Used: 5% Lidocaine Gel Depth: Down to and including healthy tissue and in the subcutaneous layer Percentage of wound debrided: 100 Instrument Used: 5mm curette Tissue Removed: Non viable tissue and slough Severity: Fat Layer Exposed Bleeding Controlled with: Pressure and Compression and gauze Patient tolerated procedure: Patient tolerated procedure well Post-Debridement Measurements and Additional Note: Post-Debridement Measurements/Treatment - Nurse 1 - General Ulcer Assessment Start: 12/28/23 14:38 Freq: Status: Active Protocol: ANTONIO Activity Type Activity Date Activity User E-sign Co-sign Detail Recorded Client Recorded Date Recorded By Document 12/28/23 14:43 [facility] [id number] 12/28/23 15:05 [facility] 12/28/23 14:43 - Today's Visit Information Type of service Initial Visit Arrival Mode Ambulatory,Cane Transfer Assistance None Patient Identification Verified (Name & Yes ) Patient Requires Transmission-Based No Precautions Height and Weight Height 6 ft Weight 497 lb Weight in Pounds 497.0 lbs Weight Measurement Method Stated by Patient Body Mass Index (BMI) 67.3 BMI Classification Obese BSA - Berta 3.14 Vital Signs Pulse Rate (60-100) 88 Pulse Location Monitor Respiratory Rate (12-18) 20 H Respiratory rate source Observation Oxygen Delivery Method Room Air Blood Pressure (90/60-120/80) 158/90 H Blood Pressure Mean 112 Source Monitor Position Sitting Blood Pressure Location Left Forearm History Since Last Visit- (Skip if this is Patient's initial visit) Left Footwear Regular Shoe Right Footwear Regular Shoe Pain Scale: 0-10 Numeric Is Patient Pain Free? Yes Lower Extremity Assessment/ Foot Assessment/ Toe Nail Assessment Left -Polpliteal Pulses Palpable No -Popliteal Doppler Monophasic -Posterior Tibial Doppler Multiphasic -Extremity Color Hyperpigmented, Hemosiderin -Hair Growth on Legs No -Hair Growth on Toes No -Temperature of Extremity Warm -Capillary Refill Greater than 3 Seconds -Dependent Rubor No -Blanched when Elevated No -Lipodermatosclerosis No -Other Deformity No -Prior Foot Ulcer No -Charcot Joint No -Prior Amputation No -Thick Yes -Discolored Yes -Deformed Yes -Improper Length & Hygeine Yes Right -Popliteal Doppler Monophasic -Posterior Tibial Doppler Monophasic -Extremity Color Hyperpigmented, Hemosiderin -Hair Growth on Legs No -Hair Growth on Toes No -Temperature of Extremity Warm -Capillary Refill Greater than 3 Seconds -Dependent Rubor No -Blanched when Elevated No -Lipodermatosclerosis No -Other Deformity No -Prior Foot Ulcer No -Charcot Joint No -Prior Amputation No -Thick Yes -Discolored Yes -Deformed Yes Communication Assessment Preferred language Macedonian Shoe Dresser Required No Able to Read Yes Able to Write Yes Communication Tools None Right Hearing Abillity Normal Left Hearing Abillity Normal Visual Assistive Devices Glasses Teaching Assessment Preferences Verbal,Written Barriers to Learning None Readiness To Learn Excellent Willingness to Engage in Self Management High Activies Readiness to Engage in Self Management High Activities Anxiety Level Calm Cooperation Cooperative Perception Coherent Interest in Health Problem Asks Questions Education Importance Acknowledges Need Does Patient Smoke tobacco or other No substances Smoking Status Current every day smoker Is Patient Diabetic No Functional Assessment Recent Decline in Ability to Perform Denies Any Declines Culture/Spiritism/Column Precaster Cultural/Spiritism Needs that may affect No Treatment Plan Teaching: Wound Center *Welcome to the Wound Center -Person Taught Patient -Teaching Method Discussion -Response to teaching Verbalize Understanding - Nurse 1 - General Ulcer Measurement Start: 12/28/23 14:38 Freq: Status: Active Protocol: Activity Type Activity Date Activity User E-sign Co-sign Detail Recorded Client Recorded Date Recorded By Document 12/28/23 14:43 [facility] [id number] 12/28/23 15:05 [facility] 12/28/23 14:43 Wound Center Nurse 1 #2 L Stafford Cluster -Current Size (cm) - Length 1.8 -Current Size (cm) - Width 4.2 -Current Size (cm) - Depth 0.1 -Total Square Cm 7.56 -Date of Last Picture (Recall this 12/28/23 field) -Photo Taken Yes -Exudate Type Serosanguineous -Wound Margin Distinct, Outline Attached -Granulation Amt Medium (34-66%) -Granulation Quality Red -Necrosis Amt Medium (34-66%) -Necrotic Tissue Type Adherent Slough -Structure Exposed N/A -Texture (Michaela-wound Skin Appearance) Localized Edema ,Scarring -Moisture (Michaela-wound Skin Appearance) No Abnormality -Color (Michaela-wound Skin Appearance) Ecchymosis, Erythema, Hemosiderin Staining -Temperature (Michaela-wound Skin No Abnormality Appearance) (Pt Warm) -Tenderness on Palpation (Michaela-wound No Skin Appearance) -Ulcer Cleansing Soap and Water -Foul Odor after Cleansing No -Anesthetic Used 5% Lidocaine Gel #1 RLE Cluster -Combined with other wound No -Current Size (cm) - Length 6 -Current Size (cm) - Width 3.9 -Current Size (cm) - Depth 0.1 -Total Square Cm 23.4 -Date of Last Picture (Recall this 12/28/23 field) -Photo Taken Yes -Exudate Amt Medium -Exudate Type Serosanguineous -Wound Margin Distinct, Outline Attached -Granulation Amt Medium (34-66%) -Granulation Quality Red -Necrosis Amt Medium (34-66%) -Necrotic Tissue Type Adherent Slough -Structure Exposed N/A -Texture (Michaela-wound Skin Appearance) Localized Edema ,Scarring -Color (Michaela-wound Skin Appearance) Ecchymosis, Erythema, Hemosiderin Staining -Temperature (Michaela-wound Skin No Abnormality Appearance) (Pt Warm) -Tenderness on Palpation (Michaela-wound No Skin Appearance) -Ulcer Cleansing Soap and Water -Foul Odor after Cleansing No -Anesthetic Used 5% Lidocaine Gel Lower Limb Edema Present Yes Right Calf (cm) 54.9 Right Ankle (cm) 31.3 Left Calf (cm) 52.9 Left Ankle (cm) 32.3 WC - Nurse 2 - General Ulcer CM Notes Start: 12/28/23 14:38 Freq: Status: Active Protocol: Activity Type Activity Date Activity User E-sign Co-sign Detail Recorded Client Recorded Date Recorded By Document 12/28/23 15:18 [id number] 12/28/23 15:36 12/28/23 15:18 Wound Center Nurse 2 #2 L Stafford Cluster -Time 15:18 -Correct Patient Yes -Correct Side, Site, Position Yes -Correct Procedure Yes -Procedure Performed Yes -Type of Procedure Debridement -Clinical Debridement Subcutaneous -Tissue Removed Subcutaneous -Post Debridement (cm) - Length 9.0 -Post Debridement (cm) - Width 4.3 -Post Debridement (cm) - Depth 0.1 -Total Square (Post) (cm) 38.70 -Area of Debridement (cm) - Length 9.0 -Area of Debridement (cm) - Width 4.3 -Total Square (Area) (cm) 38.70 -Tunneling No -Undermining/Tunneling No -Circular Undermining No -Wound/Ulcer Outcome Not Healed -Ulcer Cleansing Rinsed/ Irrigated with Saline -Foul Odor after Cleansing No -Bioengineered Tissue No -Bleeding Controlled with Pressure -Treatment Response Procedure Tolerated Well -Debridement - Subq, 1st 20sq cm Yes -Debridement, SubQ, ea addt'l 20sq cm 3 or part thereof #1 RLE Cluster -Time 15:18 -Correct Patient Yes -Correct Side, Site, Position Yes -Correct Procedure Yes -Procedure Performed Yes -Type of Procedure Debridement -Clinical Debridement Subcutaneous -Tissue Removed Subcutaneous -Post Debridement (cm) - Length 7.5 -Post Debridement (cm) - Width 4.7 -Post Debridement (cm) - Depth 0.2 -Total Square (Post) (cm) 35.25 -Area of Debridement (cm) - Length 7.5 -Area of Debridement (cm) - Width 4.7 -Total Square (Area) (cm) 35.25 -Tunneling No -Undermining/Tunneling No -Circular Undermining No -Wound/Ulcer Outcome Not Healed -Ulcer Cleansing Rinsed/ Irrigated with Saline -Foul Odor after Cleansing No -Bioengineered Tissue No -Bleeding Controlled with Pressure -Treatment Response Procedure Tolerated Well -Debridement - Subq, 1st 20sq cm No Pain Scale: 0-10 Numeric Is Patient Pain Free? Yes - Nurse 3 - General Ulcer D/C NN Start: 12/28/23 14:38 Freq: Status: Active Protocol: Activity Type Activity Date Activity User E-sign Co-sign Detail Recorded Client Recorded Date Recorded By Document 12/28/23 15:55 KW [id number] 12/28/23 15:56 KW 12/28/23 15:55 Wound Care Center Nurse 3 #2 L Stafford Cluster -Primary Dressing Applied C Hydrogel ($), NonAdherent Contact Layer -Primary Dressing Covered/Secured with Dry Gauze & Roll Gauze, Secured with Tape #1 RLE Cluster -Primary Dressing Applied NonAdherent Contact Layer -Primary Dressing Covered/Secured with Dry Gauze & Roll Gauze, Secured with Tape Left -Compression Wrap Ap Wrap Right -Compression Wrap Ap Wrap Pain Scale: 0-10 Numeric Is Patient Pain Free? No WC - Visit Discharge Discharge Condition Stable Ambulatory Status Ambulatory Transportation Private Auto Medication Reconcilliation completed & No provided to patient/care provider Clinical Summary of Care Provided Yes Additional Wound Wound debrided: lower anterior leg ulcer cluster Laterality: Left Wound Grade/Stage: StageIII Type of Debridement: Excisional debridement Anesthesia Used: 5% Lidocaine Gel Depth: Down to and including healthy tissue and in the subcutaneous layer Percentage of wound debrided: 100 Instrument Used: 3mm curette Tissue Removed: Non viable tissue and slough Severity: Fat Layer Exposed Amount of bleeding with debridement: Mild Bleeding Controlled with: Pressure and Compression and gauze Patient tolerated procedure: Patient tolerated procedure well Charges/Coding Visit Charges Office Visits / Consults: 31972 OV L4 Est 30min (25 modifier) Procedures Integumentary [id number]: [id number] Marcela subq tissue 20 sq cm/< Add On Codes: 43522 Marcela subq tissue add-on (X 3) Assessment/Plan Assessment/Plan (1) Ulcer of right lower extremity with fat layer exposed: CODE(S): L97.912 - Non-pressure chronic ulcer of unspecified part of right lower leg with fat layer exposed (2) Ulcer of left lower extremity with fat layer exposed: CODE(S): L97.922 - Non-pressure chronic ulcer of unspecified part of left lower leg with fat layer exposed (3) Edema: CODE(S): R60.9 - Edema, unspecified QUALIFIERS: Edema type: unspecified Qualified Code(s): R60.9 - Edema, unspecified (4) Morbid obesity: CODE(S): E66.01 - Morbid (severe) obesity due to excess calories (5) Tobacco abuse: CODE(S): Z72.0 - Tobacco use PLAN: Plan Patient evaluated at the wound healing center. Patient has ulcer clusters on bilateral lower legs. Wound care - He will place collagen hydrogel over the ulcers top with Adaptic. He can cover these areas with ABD and hold that in place with Kerlix wrap. He will change his dressings daily. At the time of his dressing changes he will wash his legs with soap and water and pat them dry. Compression will be Ap wrap's. He had venous studies done while he was hospitalized which showed no incompetence. Will obtain arterial studies before we start to compress him with anything more than Ap wrap's. He wound cultures obtained while he was hospitalized. He was sent home on doxycycline but we will switch that to Augmentin. He does not have a PCP. Instructed him to find a PCP, gave him a list of suggestions on where he could establish care. He will follow-up in 1 week. Greater than 35 minutes was spent reviewing old records, assessing patient, educating patient.
--- NOTE | 2023-12-29 09:25 | WC ---
PHOTO 12/28/23 Ana CLUSTER(I)
--- NOTE | 2023-12-29 09:26 | WC ---
PHOTO 12/28/23 LEFT MIGUEL CLUSTER(I)
== END 2023-12-31 23:59 | disposition home or self-care (01) ==
LOC: WC 14:17
PROVIDERS: Referring Provider Internal Medicine; Visit Provider Nurse Practitioner Family
DX: L97.812 Non-pressure chronic ulcer of other part of right lower leg with fat layer exposed (principal); L97.822 Non-pressure chronic ulcer of other part of left lower leg with fat layer exposed; J44.9 Chronic obstructive pulmonary disease, unspecified; E66.01 Morbid (severe) obesity due to excess calories; R60.0 Localized edema; F17.210 Nicotine dependence, cigarettes, uncomplicated; Z79.899 Other long term (current) drug therapy
CPT/HCPCS: 11042; 11045; 99214; G0463

== ENCOUNTER 2024-01-09 10:45 | Outpatient (RCR) | payer BC, SELFPAY ==
[2024-01-01 00:36] VITALS: BP 158/90; PULSE 88; RESP 20; BMI 67.3
--- NOTE | 2024-01-06 13:33 | ART_ITS ---
Reason For Study: BLE EDEMA Procedure A bilateral lower extremity continuous wave Doppler with analog waveform analysis,segmental pressures,and ankle brachial indexes without exercise. Left Segmental Pressures Left brachial= 136mmHg. Left posterior tibial artery = 145mmHg. Left dorsalis pedis artery = 136mmHg. Left digit = 150 mmHg. The left posterior tibial artery waveforms are triphasic. The left dorsalis pedis waveforms are triphasic. Right Segmental Pressures Right brachial= 128mmHg. Right posterior tibial artery = 161mmHg. Right dorsalis pedis artery = 159mmHg. Right digit = 147 mmHg. The right posterior tibial artery waveforms are triphasic. The right dorsalis pedis waveforms are triphasic. Indices The right resting ankle brachial index is 1.18. The right ankle brachial index by the posterior tibial artery is 1.18. The right ankle brachial index by the dorsalis pedis is 1.17. The right digital-brachial index is 1.08. The left resting ankle brachial index is 1.07. The left ankle brachial index by the posterior tibial artery is 1.07. The left ankle brachial index by the dorsalis pedis is 1.0. The left digital-brachial index is 1.10. VL/Lower Ext Art Exam w/o Exercis Interpretation Summary Triphasic Doppler waveforms are noted at ankle level bilaterally. Pulse-volume recordings appear satisfactory at all levels bilaterally. Resting ankle-brachial indices are norm al bilaterally. Digital-brachial indices are normal bilaterally. There is no evidence of significant arterial occlusive disease in the lower ext remities bilaterally. Ordering Physician: Ray Us Referring Physician: RAY US DANCE ENTERTAINER-C Performed By: Farheen Mendez RVT, RDCS
[2024-01-09 11:03] VITALS: BP 167/83; PULSE 81; RESP 18; TEMP 35.9; BMI 67.3
--- NOTE | 2024-01-09 12:57 | PN.PCM_ITS ---
History of Present Illness Date of Service: 01/09/24 Chief Complaint: Ulcers bilateral lower legs and edema History of Wound: 53 year old male presents with a one month history of bilateral leg ulcers, bilateral lower leg edema and a recent hospitalization for cellulitis of his lower legs bilaterally. He states that his legs were very swollen and they were draining a lot of clear/yellow fluid. 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 He was initially hospitalized in [facility]. He was discharged home. He then went to [facility] a few days later for increased redness, pain and edema of his lower legs. He was hospitalized 12/22/23 - 12/25/23 with cellulitis and edema of his lower legs bilaterally. He had wound cultures of his leg obtained on 12/23/23 which were positive for Staphylococcus pseuintermediu, Schaalia odotolyticus and Enterococus faecalis. He was discharged home on Doxycycline. Venous doppler done 12/23/23 which showed no evidence of DVT on either side. Deep veins of the lower extremities are bilaterally patent and compressible segmentally. Valvular competence appears to be intact within the proximal deep venous systems bilaterally. The great saphenous veins appear bilaterally patent and compression segmentally. He had a cardiac echo on 12/23/23 which showed left ventricular EF = 65%. Arterial studies done 01/06/24 which showed triphasic doppler waveforms at ankle level bilaterally. Pulse-volume recordings appear satisfactory at all levels bilaterally. Resting ankle-brachial indices are normal bilaterally. Digital- brachial indices are normal bilaterally. Left CHRISTIAN = 1.08, Right CHRISTIAN-1.07 He was referred to the wound healing center for further management on his leg ulcers. Today he denies fever, chills, nausea or vomiting. Progress of Wound: His ulcers have improved since his last visit. Right leg is now two different ulcers. The left leg ulcer cluster is much smaller. His edema is +2. The ulcers continue to be very painful. He has increased drainage/dry s cabbing/crusting on the ulcers. He has not received his wound care supplies. He had arterial studies done last week, which were normal. Objective Data Objective Data Vital Signs: Vital Signs Temp Pulse Resp BP O2 Del Method 96.7 F L 81 18 167/83 H Room Air 01/09/24 11:03 01/09/24 11:03 01/09/24 11:03 01/09/24 11:03 01/09/24 11:03 Oxygen Delivery Method Room Air Weight: 497 lb Body Mass Index (BMI) 67.3 Charges/Coding Procedures Integumentary 111xxx-113xx: [id number] Marcela subq tissue 20 sq cm/< Debridement Note Debridement Note Wound debrided: lower anterior leg ulcer (superior and inferior) Laterality: Right Wound Grade/Stage: StageIII Type of Debridement: Excisional debridement Anesthesia Used: 5% Lidocaine Gel Depth: Down to and including healthy tissue and in the subcutaneous layer Percentage of wound debrided: 100 Instrument Used: 3mm curette and 5mm curette Tissue Removed: Non viable tissue and slough Severity: Fat Layer Exposed Bleeding Controlled with: Pressure and Compression and gauze Patient tolerated procedure: Patient tolerated procedure well Post-Debridement Measurements and Additional Note: Post-Debridement Measurements/Treatment - Nurse 1 - General Ulcer Assessment Start: 01/09/24 11:01 Freq: Status: Active Protocol: ANTONIO Activity Type Activity Date Activity User E-sign Co-sign Detail Recorded Client Recorded Date Recorded By Document 01/09/24 11:03 CALVIN [id number] 01/09/24 11:09 01/09/24 11:03 - Today's Visit Information Type of service Follow-up Visit (Physician/RENTAL COORDINATOR ) Arrival Mode Ambulatory,Cane Accompanied by friend Patient Identification Verified (Name & Yes ) Height and Weight Body Mass Index (BMI) 67.3 BMI Classification Obese Vital Signs Temperature (97.8 F-99.1 F) 96.7 F L Temperature Source Temporal Pulse Rate (60-100) 81 Pulse Location Monitor Respiratory Rate (12-18) 18 Respiratory rate source Observation Oxygen Delivery Method Room Air Blood Pressure (90/60-120/80) 167/83 H Blood Pressure Mean (mm Hg) 111 Source Monitor Position Semi-Fowlers Blood Pressure Location Left Arm History Since Last Visit- (Skip if this is Patient's initial visit) Have you changed medications since your No last visit? Any new allergies or adverse reactions No Had a fall/change in ADL's that may No increase risk of falls Signs or symptoms of abuse and/or No neglect since last visit Have you been in the hospital since your No last visit? Has dressing in place as prescribed Yes Has compression in place as prescribed Yes Has offloadiing in place as prescribed N/A Experienced any changes in pain level or No management Left Footwear Regular Shoe Right Footwear Regular Shoe Pain Scale: 0-10 Numeric Is Patient Pain Free? Yes WC - Nurse 1 - General Ulcer Measurement Start: 01/09/24 11:01 Freq: Status: Active Protocol: Activity Type Activity Date Activity User E-sign Co-sign Detail Recorded Client Recorded Date Recorded By Document 01/09/24 11:03 [id number] 01/09/24 11:09 01/09/24 11:03 Wound Center Nurse 1 #2 L Stafford Cluster -Current Size (cm) - Length 1.7 -Current Size (cm) - Width 3.8 -Current Size (cm) - Depth 0.1 -Total Square Cm 6.46 -Date of Last Picture (Recall this 01/09/24 field) -Exudate Amt Small -Exudate Type Serosanguineous -Wound Margin Distinct, Outline Attached -Granulation Amt Small (1-33%) -Granulation Quality Red -Necrosis Amt Large (67-100%) -Necrotic Tissue Type Eschar -Texture (Michaela-wound Skin Appearance) Assessed -Moisture (Michaela-wound Skin Appearance) Assessed,Dry/ Scaly -Color (Michaela-wound Skin Appearance) Assessed, Hemosiderin Staining -Temperature (Michaela-wound Skin No Abnormality Appearance) (Pt Warm) -Tenderness on Palpation (Michaela-wound No Skin Appearance) -Ulcer Cleansing Soap and Water -Foul Odor after Cleansing No -Anesthetic Used 4% Lidocaine Solution #1 RLE superior -Current Size (cm) - Length 6.1 -Current Size (cm) - Width 1.1 -Current Size (cm) - Depth 0.1 -Total Square Cm 6.71 -Date of Last Picture (Recall this 01/09/24 field) -Exudate Amt Small -Exudate Type Serosanguineous -Wound Margin Distinct, Outline Attached -Granulation Amt Small (1-33%) -Granulation Quality Red -Necrosis Amt Large (67-100%) -Necrotic Tissue Type Eschar -Texture (Michaela-wound Skin Appearance) Assessed -Moisture (Michaela-wound Skin Appearance) Assessed,Dry/ Scaly -Color (Michaela-wound Skin Appearance) Assessed, Hemosiderin Staining -Temperature (Michaela-wound Skin No Abnormality Appearance) (Pt Warm) -Tenderness on Palpation (Michaela-wound No Skin Appearance) -Ulcer Cleansing Soap and Water -Foul Odor after Cleansing No -Anesthetic Used 4% Lidocaine Solution Right Calf (cm) 56 Right Ankle (cm) 32.5 Left Calf (cm) 59 Left Ankle (cm) 33.5 WC - Nurse 2 - General Ulcer CM Notes Start: 01/09/24 11:01 Freq: Status: Active Protocol: Activity Type Activity Date Activity User E-sign Co-sign Detail Recorded Client Recorded Date Recorded By Document 01/09/24 11:30 MIKEY [id number] 01/09/24 11:44 MIKEY 01/09/24 11:30 Wound Center Nurse 2 3-right leg inferior -Time 11:41 -Correct Patient Yes -Correct Side, Site, Position Yes -Correct Procedure Yes -Procedure Performed Yes -Type of Procedure Debridement -Clinical Debridement Subcutaneous -Tissue Removed Subcutaneous -Post Debridement (cm) - Length 3.0 -Post Debridement (cm) - Width 3.0 -Post Debridement (cm) - Depth 0.2 -Total Square (Post) (cm) 9.00 -Area of Debridement (cm) - Length 3.0 -Area of Debridement (cm) - Width 3.0 -Total Square (Area) (cm) 9.00 -Tunneling No -Undermining/Tunneling No -Circular Undermining No -Wound/Ulcer Outcome Not Healed -Ulcer Cleansing Rinsed/ Irrigated with Saline -Foul Odor after Cleansing No -Bioengineered Tissue No -Bleeding Controlled with Pressure -Treatment Response Procedure Tolerated Well -Offloading No -Debridement - Subq, 1st 20sq cm Yes #2 L Stafford Cluster -Time 11:43 -Correct Patient Yes -Correct Side, Site, Position Yes -Correct Procedure Yes -Procedure Performed Yes -Type of Procedure Debridement -Clinical Debridement Subcutaneous -Tissue Removed Subcutaneous -Post Debridement (cm) - Length 2.0 -Post Debridement (cm) - Width 4.5 -Post Debridement (cm) - Depth 0.2 -Total Square (Post) (cm) 9.00 -Area of Debridement (cm) - Length 2.0 -Area of Debridement (cm) - Width 4.5 -Total Square (Area) (cm) 9.00 -Tunneling No -Undermining/Tunneling No -Circular Undermining No -Wound/Ulcer Outcome Not Healed -Ulcer Cleansing Rinsed/ Irrigated with Saline -Foul Odor after Cleansing No -Bioengineered Tissue No -Bleeding Controlled with Pressure -Treatment Response Procedure Tolerated Well -Offloading No -Debridement - Subq, 1st 20sq cm No #1 RLE superior -Time 11:40 -Correct Patient Yes -Correct Side, Site, Position Yes -Correct Procedure Yes -Procedure Performed Yes -Type of Procedure Debridement -Clinical Debridement Subcutaneous -Tissue Removed Subcutaneous -Post Debridement (cm) - Length 0.7 -Post Debridement (cm) - Width 1.0 -Post Debridement (cm) - Depth 0.2 -Total Square (Post) (cm) 0.70 -Area of Debridement (cm) - Length 0.7 -Area of Debridement (cm) - Width 1.0 -Total Square (Area) (cm) 0.70 -Tunneling No -Undermining/Tunneling No -Circular Undermining No -Wound/Ulcer Outcome Not Healed -Ulcer Cleansing Rinsed/ Irrigated with Saline -Foul Odor after Cleansing No -Bioengineered Tissue No -Bleeding Controlled with Pressure -Treatment Response Procedure Tolerated Well -Offloading No -Debridement - Subq, 1st 20sq cm No Pain Scale: 0-10 Numeric Is Patient Pain Free? Yes WC - Nurse 3 - General Ulcer D/C NN Start: 01/09/24 11:01 Freq: Status: Active Protocol: Activity Type Activity Date Activity User E-sign Co-sign Detail Recorded Client Recorded Date Recorded By Document 01/09/24 12:02 DL [id number] 01/09/24 12:05 DL 01/09/24 12:02 Wound Care Center Nurse 3 3-right leg inferior -Ulcer Cleansing Rinsed/ Irrigated with Saline -Foul Odor after Cleansing No -Primary Dressing Applied C Hydrogel ($), NonAdherent Contact Layer -Primary Dressing Covered/Secured with Dry Gauze & Roll Gauze, Secured with Tape #2 L Stafford Cluster -Ulcer Cleansing Rinsed/ Irrigated with Saline -Foul Odor after Cleansing No -Primary Dressing Applied NonAdherent Contact Layer -Other Dressing hydrogel -Primary Dressing Covered/Secured with Dry Gauze & Roll Gauze, Secured with Tape #1 RLE superior -Ulcer Cleansing Rinsed/ Irrigated with Saline -Foul Odor after Cleansing No -Primary Dressing Applied NonAdherent Contact Layer -Other Dressing hydrogel -Primary Dressing Covered/Secured with Dry Gauze & Roll Gauze, Secured with Tape arsh -Tubular Bandage Single Layer -Size of Tubigrip Used Size F -Size F ($) 1 Pain Scale: 0-10 Numeric Is Patient Pain Free? Yes WC - Visit Discharge Discharge Condition Stable Ambulatory Status Ambulatory Transportation Private Auto Notes: dressing applied per Leticia Redding today Additional Wound Wound debrided: lower anterior leg ulcer cluster Laterality: Left Wound Grade/Stage: StageIII Type of Debridement: Excisional debridement Anesthesia Used: 5% Lidocaine Gel Depth: Down to and including healthy tissue and in the subcutaneous layer Percentage of wound debrided: 100 Instrument Used: 5mm curette Tissue Removed: Non viable tissue and slough Severity: Fat Layer Exposed Amount of bleeding with debridement: Mild Bleeding Controlled with: Pressure and Compression and gauze Patient tolerated procedure: Patient tolerated procedure well Assessment/Plan Assessment/Plan (1) Ulcer of right lower extremity with fat layer exposed: CODE(S): L97.912 - Non-pressure chronic ulcer of unspecified part of right lower leg with fat layer exposed (2) Ulcer of left lower extremity with fat layer exposed: CODE(S): L97.922 - Non-pressure chronic ulcer of unspecified part of left lower leg with fat layer exposed (3) Edema: CODE(S): R60.9 - Edema, unspecified QUALIFIERS: Edema type: unspecified Qualified Code(s): R60.9 - Edema, unspecified (4) Morbid obesity: CODE(S): E66.01 - Morbid (severe) obesity due to excess calories (5) Tobacco abuse: CODE(S): Z72.0 - Tobacco use PLAN: Plan Patient evaluated at the wound healing center. Wound care - He will place collagen hydrogel over the ulcers top with Adaptic. He can cover these areas with ABD and hold that in place with Kerlix wrap. He will change his dressings daily. At the time of his dressing changes he will wash his legs with soap and water and pat them dry. Compression will be Single tubigrip. Arterial studies done 01/06/24 which showed triphasic doppler waveforms at ankle level bilaterally. Pulse-volume recordings appear satisfactory at all levels bilaterally. Resting ankle-brachial indices are normal bilaterally. Digital- brachial indices are normal bilaterally. Left CHRISTIAN = 1.08, Right CHRISTIAN-1.07 He wound cultures obtained while he was hospitalized. He was sent home on doxycycline but we will switch that to Augmentin. He does not have a PCP. Instructed him to find a PCP, gave him a list of suggestions on where he could establish care. He will follow-up in 2 weeks. He is not able to come weekly due to his work schedule.
--- NOTE | 2024-01-10 08:31 | WC ---
PHOTO 01/09/24 LT MIGUEL
== END 2024-01-30 23:59 | disposition home or self-care (01) ==
LOC: WC 10:45
PROVIDERS: Referring Provider Internal Medicine; Visit Provider Nurse Practitioner Family
DX: L97.812 Non-pressure chronic ulcer of other part of right lower leg with fat layer exposed (principal); L97.822 Non-pressure chronic ulcer of other part of left lower leg with fat layer exposed; E66.01 Morbid (severe) obesity due to excess calories; Z68.44 Body mass index [BMI] 60.0-69.9, adult; R60.0 Localized edema; Z72.0 Tobacco use
CPT/HCPCS: 11042; 93923

== ENCOUNTER 2024-06-13 20:50 | Observation (INO) | payer BC, SELFPAY ==
[2024-06-13 20:52] VITALS: BP 162/76; PULSE 75; RESP 18; TEMP 36.7; O2SAT 97
--- NOTE | 2024-06-13 20:59 | ED.VIS.DYS ---
HPI History of Present Illness Chief Complaint: Cold Sx PFSH PFS Medical History COPD (chronic obstructive pulmonary disease) Tobacco abuse History of cellulitis Morbid obesity Home Medications ?Medication ?Instructions ?Recorded ?Last Taken ?Type NK 06/13/24 Unknown History Allergy/AdvReac Type Severity Reaction Status Date / Time No Known Allergies Allergy Verified 06/13/24 20:54 Family History (Reviewed 12/28/23 @ 17:42 by Betty Dumont ONLINE ADVERTISING DIRECTOR, ONLINE ADVERTISING DIRECTOR-C) Mother Cancer Father Cancer Surgical History History of cholecystectomy History of appendectomy Social History (Updated 12/28/23 @ 17:46 by Betty Dumont ONLINE ADVERTISING DIRECTOR, ONLINE ADVERTISING DIRECTOR-C) household members: friend(s) 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 He states this began 3 to 4 days ago. He further states he has no chest pain. No sick contacts. No new leg swelling. Denies any bleeding diathesis. The patient denies recent surgery in the last 4 weeks or immobilization in the last 3 days, denies previous diagnosis of DVT or PE, hemoptysis, unilateral leg swelling or malignancy with treatment the last 6 months or palliative. No estrogen use noted. REVIEW OF SYSTEMS: Pertinent positives: As per HPI Pertinent negatives: Leg swelling, syncope PHYSICAL EXAM: Nursing triage notes reviewed, Vital signs reviewed Constitutional: please see mdm HENT: MMM Eyes: Pupils equal round and reactive to light, Extraocular muscles intact Neck: No stridor, no JVD, full neck ROM Lungs: Clear to auscultation, No wheezing or rales. No increased work of breathing, no conversational dyspnea, no accessory muscle use, no nasal flaring. No respiratory distress noted Heart: Regular rate and rhythm, No murmurs, No rubs and No gallops, 2+ distal pulses (radial, femoral, posterior tibial) in all extremities Abdomen: Soft, there is no tenderness, rigidity, rebound or guarding, no obvious peritoneal signs, no palpable pulsatile abdominal masses, no auscultated abdominal bruit : No CVAT Extremities: 2+ pitting edema bilateral lower extremities, chronic venous stasis changes noted. Neuro: No new focal neurological deficits, cranial nerves II through XII intact, 5/5 strength in all present extremities. Intact sensation to light touch in all present extremities, 2+ reflexes bilateral patella tendons. Skin: No rash or lesions noted MEDICAL DECISION MAKING: Chief Complaint: As per HPI External records reviewed: Reviewed prior imaging. Prior Echocardiogram from Factors affecting care: Obesity, COPD, Social determinants of health: Tobacco abuse History obtained from others: none Consults: Internal Medicine (Dr. Sheikh) -who accepted the patient to [facility] observation. MDM Narrative: Patient was initially hemodynamically stable, afebrile, nontoxic-appearing. Exam without focal cardiopulmonary abnormalities. No lower extremity edema. No stigmata of VTE. I considered the following differential diagnosis: ACS, arrhythmia, anemia, electrolyte disturbance ALL IMAGES (IF OBTAINED) HAVE BEEN PERSONALLY REVIEWED AND INTERPRETED BY MYSELF. High-sensitivity troponin is negative, no evidence of myocardial ischemia EKG with normal sinus rhythm rate of 77, normal axis, normal intervals, no STEMI COVID/flu/RSV. CBC without leukocytosis, severe anemia, no thrombocytopenia. BMP without evidence of significant electrolyte abnormalities, no anion gap, no acute kidney injury. Upon reassessment pt was hypoxic at rest. I initially attributed this to likely SINA and a component of obesity hypoventilation syndrome. The patient was then ambulated and he was unable to maintain his oxygen. He dropped as low as 84% with a good waveform. Given exertional hypoxia I decided to admit the patient. This time I reassessed his PE risk factors which remain negative. I do not suspect he suffering from a pulmonary embolism. Added VBG, BNP pending given hypoxia VBG shows chronic CO2 retention with a pH of 7.354 and a pCO2 of 59. Awaiting BNP. The patient and/or family, caregivers express understanding. The patient and/or family, caregivers agrees with the plan. Shared decision making: I will have a discussion with the patient and or visitors regarding risk/benefits of further testing or admission. They will be made aware of of the risk/benefits inherent in this decision they will be given the opportunity to voice understanding. Total critical care time today provided was at least 0 minutes. This excludes separately billable procedures. Critical care time (if documented) is secondary to the patient having high probability of clinically significant/life threatening deterioration in the patient's condition which required my urgent intervention. Impression: 1. Viral URI 2. Dyspnea 3. Hypoxia 4. Obesity Hypoventilation Syndrome Dispo: admit This note was generated with [employer] dictation software. It may contain incorrect words, spelling, and punctuation that were not noted in review of the chart prior to signing. Lab Data Labs: Laboratory Results - last 24 hr 06/13/24 06/13/24 06/13/24 21:20 21:20 22:30 WBC Cancelled 9.7 Corrected WBC Cancelled RBC Cancelled 5.30 Hgb Cancelled 15.3 Hct Cancelled 47.6 MCV Cancelled 89.8 MCH Cancelled 28.9 MCHC Cancelled 32.1 RDW Std Deviation Cancelled 47.6 H RDW Coeff of Pradeep Cancelled 14.6 Plt Count Cancelled 231 MPV Cancelled 9.9 Immature Gran % (Auto) Cancelled 0.300 Neut % (Auto) Cancelled 64.6 Lymph % (Auto) Cancelled 25.3 Trinity % (Auto) Cancelled 7.5 Eos % (Auto) Cancelled 2.0 Baso % (Auto) Cancelled 0.3 Absolute Neuts (auto) Cancelled 6.3 Absolute Lymphs (auto) Cancelled 2.46 Total Counted Cancelled Neutrophils % (Manual) Cancelled Band Neutrophils % Cancelled Lymphocytes % (Manual) Cancelled Monocytes % (Manual) Cancelled Eosinophils % (Manual) Cancelled Basophils % (Manual) Cancelled Metamyelocytes % Cancelled Myelocytes % Cancelled Promyelocytes % Cancelled Blast Cells % Cancelled Plasma Cell % (Manual) Cancelled Other Cells % Cancelled Nucleated RBC % Cancelled 0 Nucleated RBCs/100 WBC Cancelled Differential Comment Cancelled Diff Path Review Cancelled Hypersegmented Neuts Cancelled Atypical Lymphocytes Cancelled Reactive Lymphocytes Cancelled Smudge Cells Cancelled Toxic Granulation Cancelled Toxic Vacuolation Cancelled Dohle Bodies Cancelled [place] Cancelled Platelet Estimate Cancelled Plt Morphology Comment Cancelled RBC Morphology Cancelled Cancelled Polychromasia Cancelled Hypochromasia Cancelled Basophilic Stippling Cancelled Anisocytosis Cancelled Microcytosis Cancelled Macrocytosis Cancelled Spherocytes Cancelled Sickle Cells Cancelled Target Cells Cancelled Tear Drop Cells Cancelled Ovalocytes Cancelled Stomatocytes Cancelled Barrera-Croom Bodies Cancelled Zuly Cells Cancelled Bite Cells Cancelled Crenated Cell Cancelled Acanthocytes (Spur) Cancelled Rouleaux Cancelled Schistocytes Cancelled Sodium 136 Potassium 3.9 Chloride 104 Carbon Dioxide 26.0 Anion Gap 6 BUN 9 Creatinine 0.83 Estim Creat Clear Calc 212.46 Est GFR (MDRD) Af Amer 125 Est GFR (MDRD) Non-Af 103 BUN/Creatinine Ratio 10.8 Glucose 113 H Calcium 8.6 Troponin I High Sens 12 Radiography Diagnostic Testing: Clinical Impression(s) from Imaging Studies Chest X-Ray 06/13/24 21:28 IMPRESSION: Mild cardiomegaly and mild prominence of the pulmonary interstitium. No significant change. Reading Location: [facility] Discharge Plan Triage Chief Complaint: Cold Sx ED Provider: Jim Cortes Dx/Rx/DC Orders Prescriptions: No Action NK Primary Care Provider: Care Physician,No Primary Referrals: Care Physician,No Primary [Primary Care Provider] - Print Language: Italian
--- NOTE | 2024-06-13 21:07 | EKG12_ITS ---
Test Reason : DYSRHYTHMIA Blood Pressure : */* mmHG Vent. Rate : 77 BPM Atrial Rate : 77 BPM P-R Int : 174 ms QRS Dur : 104 ms QT Int : 388 ms P-R-T Axes : 70 41 50 degrees QTcB Int : 439 ms Normal sinus rhythm Normal ECG Confirmed by MILADY PETTIT, SABINE ([id number]), news assignment editor MURALI MORA ([id number]) on 06/15/2024 1:02:01 PM Referred By: Confirmed By: SABINE HENNING MD
[2024-06-13] MEDS: Ondansetron 4 MG/2 ML Vial IV (21:20)
[2024-06-13 21:23] VITALS: PULSE 72; BMI 73.0
--- NOTE | 2024-06-13 21:28 | RAD_ITS ---
PROCEDURE: CHEST 1 VIEW (PORTABLE) REASON FOR EXAM: Shortness of breath. TECHNIQUE: Frontal view of the chest. COMPARISON: Chest x-ray from 12/22/2023. FINDINGS: Cardiac size is stable and mildly prominent. There is mild prominence of the pulmonary interstitium. No consolidation, pleural effusion, or pneumothorax is present. RAD/Chest 1 View (Portable) IMPRESSION: Mild cardiomegaly and mild prominence of the pulmonary interstitium. No signif icant change. Reading Location: [facility]
[2024-06-13 21:57] LABS: Anion Gap 6 (5-15); BUN 9 mg/dL (7-18); BUN/Creat Ratio 10.8 RATIO (10-20); Calcium,Total 8.6 mg/dL (8.5-10.1); Chloride 104 mmol/L (98-107); Creatinine, Serum 0.83 mg/dL (0.70-1.30); EST Glomerular Filtration Rate 103 mL/min (>60); Est Glom Filt Rate - Afr Amer 125 mL/min (>60); Estimated Creatinine Clearance 212.46 ml/min; Glucose 113 mg/dL (74-106); Potassium 3.9 mmol/L (3.5-5.1); Sodium Level 136 mmol/L (136-145); Troponin-I HS 12 pg/mL (3.0-78.0)
[2024-06-13 22:42] LABS: Absolute Lymphocyte Count 2.46 X10^3/uL (0.83-4.51); Absolute Neutrophil Count 6.3 X10^3/uL (2.0-7.7); Basophil# 0.03 X10^3/uL; Basophil% 0.3 % (0-1); Eosinophil# 0.19 X10^3/uL; Hematocrit 47.6 % (40-54); Hemoglobin 15.3 g/dL (13.0-16.5); Lymphocyte # 2.46 X10^3/ul (0.83-4.51); Lymphocyte % 25.3 % (19-41); Mean Corp Hgb Conc 32.1 g/dL (32-36); Mean Corpuscular Hgb 28.9 pg (27.0-32.0); Mean Corpuscular Volume 89.8 fL (80-94); Mean Platelet Vol. 9.9 fl (6.2-12.0); Monocyte# 0.73 X10^3/uL; Monocyte% 7.5 % (0-10); NRBC Flagged by Analyzer 0 % (0-5); Neutrophil # 6.27 X10^3/uL (2.7-7.7); Neutrophil % 64.6 % (47-70); Platelet Count 231 K/mm3 (150-450); RBC Distribution Width CV 14.6 % (11.6-14.6); RBC Distribution Width SD 47.6 fl (35.1-43.9); White Blood Count 9.7 K/mm3 (4.4-11.0)
[2024-06-13 22:45] VITALS: O2SAT 93
[2024-06-13 23:09] VITALS: O2SAT 84
--- NOTE | 2024-06-13 23:27 | HP.PCM.HOS_ITS ---
[facility] - General General Date of Admission: 06/14/24 Date of Service: 06/13/24 Chief Complaint: Viral URI and SOB. [facility] Narrative AZALIA MARTÍNEZ, is a 53 M with a past medical history of tobacco abuse ~1 ppd x ~36 years; with subsequent COPD with 'blue-bloater' phenotype, super-morbid obesity; with BMI of 73 this admission, SINA, history of polycythemia; attributed to chronic hypoxia, chronic venous stasis with history of bilateral foot ulcers and LE cellulitis with admission here from December 22, 2023 to December 25, 2023 with subsequent discharge on oral doxycycline and with follow up treatment by the [facility] here on January 09, 2024 with noted improvement, history of appendectomy, history of cholecystectomy and history of homelessness who presents to [facility] ER complaining viral URI and shortness of breath. Mr. Martínez reports his symptoms began approximately 3-4 days prior to admission with the gradual-onset of SOB, fatigue and generalized weakness due to suspected viral URI. He denies associated fever, chills, nausea, vomiting, diarrhea, constipation, increased LE swelling, wheezing, chest pain, headache or known sick contacts. In the ER he was noted to have an unremarkable CXR and laboratory studies but he became hypoxic at 84% when he ambulated in the ER and then the ER physician sought admission so patient could continue his supplemental oxygen for hypoxia likely due to a combination of obesity hypoventilation syndrome, SINA and continued tobacco abuse with COPD that is not flaring at this time. He was then admitted to the general medical floor under observation status for a stay that is expected to be less than 2 midnights. [facility] Medical History (Updated 06/14/24 @ 05:[address] 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 Eyes: Patient denies changes in vision or discharge from eyes. ENT: Patient denies runny nose, sore throat or ear pain. Resp: Patient admits to SOB and nonproductive cough. CV: Patient denies chest pain, palpitations, heart racing or lower extremity edema. GI: Patient denies abdominal pain, nausea, vomiting, diarrhea or constipation. : Patient denies dysuria or hematuria. MSK: Patient admits to chronic debility with chronic Left leg pain attributed to previous falls as per HPI. Skin: Patient denies rash, abscess, wounds or jaundice. Psych: Patient denies symptoms of uncontrolled depression or anxiety. Neuro: Patient denies headache, paresthesias or focal neurologic deficits. Allergy: Patient denies lip swelling, tongue swelling or urticaria. Hematology: Patient denies recent bleeding. Endocrinology: Patient denies polyuria, polydipsia or polyphagia. 14 point ROS otherwise negative except for positives noted above in HPI. Vital Signs Vital Signs Vital Signs: 06/13/24 20:52 06/13/24 21:23 06/13/24 22:45 Temperature 98.0 F Temperature Source Temporal Pulse Rate 75 72 Respiratory Rate 18 Blood Pressure 162/76 H Blood Pressure Mean 104 Pulse Ox 97 93 Oxygen Delivery Method Room Air Nasal Cannula Oxygen Flow Rate (L/min) 2 Weight Weight: 538 lb 9.428 oz Body Mass Index (BMI) 73.0 Results Lab / Micro Data 06/13/24 22:30 06/13/24 21:20 Labs: Laboratory Results - last 24 hr 06/13/24 21:20: WBC Cancelled, Corrected WBC Cancelled, RBC Cancelled, Hgb Cancelled, Hct Cancelled, MCV Cancelled, MCH Cancelled, MCHC Cancelled, RDW Std Deviation Cancelled, RDW Coeff of Pradeep Cancelled, Plt Count Cancelled, MPV Cancelled, Immature Gran % (Auto) Cancelled, Neut % (Auto) Cancelled, Lymph % (Auto) Cancelled, [place] % (Auto) Cancelled, Eos % (Auto) Cancelled, Baso % (Auto) Cancelled, Absolute Neuts (auto) Cancelled, Absolute Lymphs (auto) Cancelled, Total Counted Cancelled, Neutrophils % (Manual) Cancelled, Band Neutrophils % Cancelled, Lymphocytes % (Manual) Cancelled, Monocytes % (Manual) Cancelled, Eosinophils % (Manual) Cancelled, Basophils % (Manual) Cancelled, Metamyelocytes % Cancelled, Myelocytes % Cancelled, Promyelocytes % Cancelled, Blast Cells % Cancelled, Plasma Cell % (Manual) Cancelled, Other Cells % Cancelled, Nucleated RBC % Cancelled, Nucleated RBCs/100 WBC Cancelled, Differential Comment Cancelled, Diff Path Review Cancelled, Hypersegmented Neuts Cancelled, Atypical Lymphocytes Cancelled, Reactive Lymphocytes Cancelled, Smudge Cells Cancelled, Toxic Granulation Cancelled, Toxic Vacuolation Cancelled, Dohle Bodies Cancelled, Cierra Rods Cancelled, Platelet Estimate Cancelled, Plt Morphology Comment Cancelled, RBC Morphology Cancelled 06/13/24 21:20: RBC Morphology Cancelled, Polychromasia Cancelled, Hypochromasia Cancelled, Basophilic Stippling Cancelled, Anisocytosis Cancelled, Microcytosis Cancelled, Macrocytosis Cancelled, Spherocytes Cancelled, Sickle Cells Cancelled, Target Cells Cancelled, Tear Drop Cells Cancelled, Ovalocytes Cancelled, Stomatocytes Cancelled, [place] Bodies Cancelled, [place] Cells Cancelled, Bite Cells Cancelled, Crenated Cell Cancelled, Acanthocytes (Spur) Cancelled, Rouleaux Cancelled, Schistocytes Cancelled, Sodium 136, Potassium 3.9, Chloride 104, Carbon Dioxide 26.0, Anion Gap 6, BUN 9, Creatinine 0.83, Estim Creat Clear Calc 212.46, Est GFR (MDRD) Af Amer 125, Est GFR (MDRD) Non-Af 103, BUN/Creatinine Ratio 10.8, Glucose 113 H, Calcium 8.6, Troponin I High Sens 12 06/13/24 22:30: WBC 9.7, RBC 5.30, Hgb 15.3, Hct 47.6, MCV 89.8, MCH 28.9, MCHC 32.1, RDW Std Deviation 47.6 H, RDW Coeff of Pradeep 14.6, Plt Count 231, MPV 9.9, Immature Gran % (Auto) 0.300, Neut % (Auto) 64.6, Lymph % (Auto) 25.3, [place] % (Auto) 7.5, Eos % (Auto) 2.0, Baso % (Auto) 0.3, Absolute Neuts (auto) 6.3, Absolute Lymphs (auto) 2.46, Nucleated RBC % 0 Micro: Microbiology 06/13/24 21:10 Mucosa - Nose SARS-CoV-2, Influenza & RSV (PCR) - Final Imaging Radiology Impression Chest X-Ray 06/13/24 21:28 IMPRESSION: Mild cardiomegaly and mild prominence of the pulmonary interstitium. No significant change. Reading Location: [facility] Assessment & Plan Assessment/Plan (1) Viral URI with cough: (2) Morbid obesity: (3) SINA (obstructive sleep apnea): (4) COPD (chronic obstructive pulmonary disease): QUALIFIERS: COPD type: unspecified COPD Qualified Code(s): J44.9 - Chronic obstructive pulmonary disease, unspecified (5) Tobacco abuse: PLAN: Plan 1. Viral URI with Hypoxia likely due to a combination of obesity hypoventilation syndrome, SINA and continued tobacco abuse with COPD that is not flaring at this time - Admit to general medical floor under observation status. Check extended viral respiratory panel with initial viral screening negative for influenza, RSV and COVID-19. Give acetaminophen prn for pain or fever. 2. Super-morbid obesity; with BMI of 73 this admission complicating #1 - Weight loss will be recommended. Check TSH. This complicates his case and may hamper recovery. 3. History of polycythemia; attributed to chronic hypoxia - Stable with normal range hemoglobin of 15.3 g/dL present on admission. 4. Chronic venous stasis with history of bilateral foot ulcers and LE cellulitis with admission here from December 22, 2023 to December 25, 2023 with subsequent discharge on oral doxycycline and with follow up treatment by the [facility] here on January 09, 2024 with noted improvement - Noted with no evidence of recurrence at this time. 5. History of appendectomy - Noted. 6. History of cholecystectomy - Noted. 7. History of homelessness - Case Management consulted to help patient with any ongoing needs related to this issue and to help him get supplemental oxygen if he qualifies with help appreciated in advance. 8. DVT prophylaxis - Lovenox 40 mg sq BID plus SCD's. Total time: Approximately (but not less than) 70 minutes. Charges/Coding Visit Charges OBSV E&M: 25993 Observ/hosp same date L2
[2024-06-13 23:39] VITALS: BP 142/75; PULSE 75; RESP 18; TEMP 36.6; O2SAT 95
[2024-06-13 23:44] LABS: Blood Gas Specimen Type VEN; O2 Delivery Device Cannula; SITE Not entered; VBG BASE EXCESS 8 mmol/L (-1.0-3.5); VBG Bicarbonate 33 mmol/L (22-26); VBG PO2 48 mmHg (25-40); VBG SO2 80 % (50-70); VBG TCO2 35 mmol/L (23-33); VBG pCO2 59.9 mmHg (41-51); VBG pH 7.35 (7.32-7.42)
[2024-06-13 23:50] LABS: BNP,B-Type NATRIURETIC PEPTIDE 29.4 pg/mL (0-100)
[2024-06-14] VITALS (8 sets, daily range): BP systolic 108–148; BP diastolic 62–96; PULSE 76–87; RESP 15–18; TEMP 36.5–37; O2SAT 85–96; BMI 67.9; BMI 67.8
--- NOTE | 2024-06-14 07:23 | PCM.PN.HOSP ---
Reason for Visit Reason for Visit: Diagnoses Morbid (severe) obesity due to excess calories (06/14/24) Obstructive sleep apnea (adult) (pediatric) (06/14/24) Acute upper respiratory infection, unspecified (06/14/24) Chronic obstructive pulmonary disease, unspecified (06/14/24) Tobacco use (06/14/24) Subjective Subjective Breathing well with oxygen. Objective Data Objective Data Vital Signs: Vital Signs Temp Pulse Resp BP Pulse Ox O2 Del Method O2 Flow Rate 36.6 C 79 18 108/68 96 Nasal Cannula 2 06/14/24 06:31 06/14/24 06:31 06/14/24 06:31 06/14/24 06:31 06/14/24 06:31 06/14/24 06:34 06/14/24 06:34 Oxygen Flow Rate (L/min) 2 Oxygen Delivery Method Nasal Cannula Weight: 227.25 kg Body Mass Index (BMI) 67.8 Intake & Output: Intake and Output for Last 24 Hours 06/12/24 06/13/24 06/14/24 23:59 23:59 23:59 Output Total 350 / 350 Balance -350 / -350 Lab / Micro Data 06/14/24 05:37 06/14/24 05:37 Labs: Laboratory Results - last 24 hr 06/13/24 21:20: WBC Cancelled, Corrected WBC Cancelled, RBC Cancelled, Hgb Cancelled, Hct Cancelled, MCV Cancelled, MCH Cancelled, MCHC Cancelled, RDW Std Deviation Cancelled, RDW Coeff of Pradeep Cancelled, Plt Count Cancelled, MPV Cancelled, Immature Gran % (Auto) Cancelled, Neut % (Auto) Cancelled, Lymph % (Auto) Cancelled, [place] % (Auto) Cancelled, Eos % (Auto) Cancelled, Baso % (Auto) Cancelled, Absolute Neuts (auto) Cancelled, Absolute Lymphs (auto) Cancelled, Total Counted Cancelled, Neutrophils % (Manual) Cancelled, Band Neutrophils % Cancelled, Lymphocytes % (Manual) Cancelled, Monocytes % (Manual) Cancelled, Eosinophils % (Manual) Cancelled, Basophils % (Manual) Cancelled, Metamyelocytes % Cancelled, Myelocytes % Cancelled, Promyelocytes % Cancelled, Blast Cells % Cancelled, Plasma Cell % (Manual) Cancelled, Other Cells % Cancelled, Nucleated RBC % Cancelled, Nucleated RBCs/100 WBC Cancelled, Differential Comment Cancelled, Diff Path Review Cancelled, Hypersegmented Neuts Cancelled, Atypical Lymphocytes Cancelled, Reactive Lymphocytes Cancelled, Smudge Cells Cancelled, Toxic Granulation Cancelled, Toxic Vacuolation Cancelled, Dohle Bodies Cancelled, Cierra Rods Cancelled, Platelet Estimate Cancelled, Plt Morphology Comment Cancelled, RBC Morphology Cancelled 06/13/24 21:20: RBC Morphology Cancelled, Polychromasia Cancelled, Hypochromasia Cancelled, Basophilic Stippling Cancelled, Anisocytosis Cancelled, Microcytosis Cancelled, Macrocytosis Cancelled, Spherocytes Cancelled, Sickle Cells Cancelled, Target Cells Cancelled, Tear Drop Cells Cancelled, Ovalocytes Cancelled, Stomatocytes Cancelled, [place] Bodies Cancelled, [place] Cells Cancelled, Bite Cells Cancelled, Crenated Cell Cancelled, Acanthocytes (Spur) Cancelled, Rouleaux Cancelled, Schistocytes Cancelled, Sodium 136, Potassium 3.9, Chloride 104, Carbon Dioxide 26.0, Anion Gap 6, BUN 9, Creatinine 0.83, Estim Creat Clear Calc 212.46, Est GFR (MDRD) Af Amer 125, Est GFR (MDRD) Non-Af 103, BUN/Creatinine Ratio 10.8, Glucose 113 H, Calcium 8.6, Troponin I High Sens 12, B-Natriuretic Peptide 29.4 06/13/24 22:30: WBC 9.7, RBC 5.30, Hgb 15.3, Hct 47.6, MCV 89.8, MCH 28.9, MCHC 32.1, RDW Std Deviation 47.6 H, RDW Coeff of Pradeep 14.6, Plt Count 231, MPV 9.9, Immature Gran % (Auto) 0.300, Neut % (Auto) 64.6, Lymph % (Auto) 25.3, [place] % (Auto) 7.5, Eos % (Auto) 2.0, Baso % (Auto) 0.3, Absolute Neuts (auto) 6.3, Absolute Lymphs (auto) 2.46, Nucleated RBC % 0 Micro: Microbiology 06/13/24 21:10 Mucosa - Nose SARS-CoV-2, Influenza & RSV (PCR) - Final ABG Data ABG results: ABG 02/12/25 23:40 Specimen Type BUD Sample Site Not entered O2 % 3.0 VBG pH 7.35 VBG pO2 48 H VBG HCO3 33 H VBG Total CO2 35 H VBG O2 Sat (Calc) 80 H VBG Base Excess 8 H POC Mix VBG pCO2 Pt Tmp 59.9 H O2 Delivery Device Cannula Radiography Diagnostic Testing: Radiology Impression Chest X-Ray 06/13/24 21:28 IMPRESSION: Mild cardiomegaly and mild prominence of the pulmonary interstitium. No significant change. Reading Location: [facility] Physical Exam Const alert and no apparent distress HEENT head/scalp atraumatic and moist oral mucous membranes Resp normal respiratory effort, no retractions, no use of accessory muscles and clear to auscultation bilaterally Cardio regular rate, regular rhythm, S1 normal heart sound and S2 normal heart sound GI normal to inspection, nondistended, normoactive bowel sounds, soft to palpation and non-tender Assessment & Plan Assessment/Plan (1) Viral URI with cough: (2) Morbid obesity: (3) SINA (obstructive sleep apnea): (4) COPD (chronic obstructive pulmonary disease): QUALIFIERS: COPD type: unspecified COPD Qualified Code(s): J44.9 - Chronic obstructive pulmonary disease, unspecified (5) Tobacco abuse: PLAN: Plan Viral URI COVID/Influenza/RSV negative. Acute hypoxia 2/2 unspecified viral illness compounded by COPD, SINA, OHVS wean oxygen as tolerated requires 2 liters oxygen with activity. followup with pulmonary for SINA mgmt. Chronic conditions: obesity class III: complicates care and recovery polycythemia DVT prophylaxis - Lovenox 40 mg sq BID
[2024-06-14 07:58] LABS: ALB/GLOB Ratio 0.8 RATIO (0.9-2.4); AST(SGOT) 32 U/L (15-37); Alanine Aminotransfer ALT/SGPT 37 U/L (16-61); Albumin, Serum 3.1 g/dL (3.2-5.0); Alkaline Phosphatase 179 U/L (45-117); Anion Gap 3 (5-15); BUN 8 mg/dL (7-18); BUN/Creat Ratio 11.1 RATIO (10-20); Calcium,Total 8.5 mg/dL (8.5-10.1); Chloride 105 mmol/L (98-107); Creatinine, Serum 0.72 mg/dL (0.70-1.30); EST Glomerular Filtration Rate 122 mL/min (>60); Est Glom Filt Rate - Afr Amer 147 mL/min (>60); Estimated Creatinine Clearance 233.34 ml/min; Globulin 3.9 g/dL (2.2-4.2); Glucose 127 mg/dL (74-106); Magnesium 2.2 mg/dL (1.6-2.6); Phosphorus 3.9 mg/dL (2.5-4.9); Potassium 3.4 mmol/L (3.5-5.1); Sodium Level 139 mmol/L (136-145)
[2024-06-14 08:18] LABS: Hemoglobin A1c 6.1 % (3.8-5.6)
[2024-06-14] MEDS: Enoxaparin 40 MG/0.4 ML Syringe SC (10:07)
[2024-06-14] MEDS: Acetaminophen 325 MG Tablet 650 MG PO (10:07)
[2024-06-14 13:50] LABS: Absolute Lymphocyte Count 1.98 X10^3/uL (0.83-4.51); Absolute Neutrophil Count 5.2 X10^3/uL (2.0-7.7); Basophil# 0.05 X10^3/uL; Basophil% 0.6 % (0-1); Eosinophil# 0.21 X10^3/uL; Eosinophils% 2.6 % (0-5); Hematocrit 46.2 % (40-54); Hemoglobin 14.6 g/dL (13.0-16.5); Lymphocyte # 1.98 X10^3/ul (0.83-4.51); Lymphocyte % 24.4 % (19-41); Mean Corp Hgb Conc 31.6 g/dL (32-36); Mean Corpuscular Volume 91.7 fL (80-94); Mean Platelet Vol. 10.1 fl (6.2-12.0); Monocyte# 0.66 X10^3/uL; Monocyte% 8.1 % (0-10); NRBC Flagged by Analyzer 0 % (0-5); Neutrophil # 5.21 X10^3/uL (2.7-7.7); Neutrophil % 64.1 % (47-70); Platelet Count 239 K/mm3 (150-450); Red Blood Count 5.04 M/mm3 (4.6-6.2); White Blood Count 8.1 K/mm3 (4.4-11.0)
--- NOTE | 2024-06-14 14:03 | DS.PCM_ITS ---
Providers Date of Admission: 06/14/24 Primary Care Physician: Deana Primary Care Phys Reason For Visit: HYPOXIA DUE TO POSSIBLE VIRAL URI AND OHS WITH SINA Diagnosis Discharge Diagnosis (1) Viral URI with cough: Status: Acute Code(s): J06.9 - Acute upper respiratory infection, unspecified (2) Morbid obesity: Status: Acute Code(s): E66.01 - Morbid (severe) obesity due to excess calories (3) SINA (obstructive sleep apnea): Status: Acute Code(s): G47.33 - Obstructive sleep apnea (adult) (pediatric) (4) COPD (chronic obstructive pulmonary disease): Status: Chronic Code(s): J44.9 - Chronic obstructive pulmonary disease, unspecified Qualifiers: COPD type: unspecified COPD Qualified Code(s): J44.9 - Chronic obstructive pulmonary disease, unspecified (5) Tobacco abuse: Status: Acute Code(s): Z72.0 - Tobacco use Plan Viral URI * COVID/Influenza/RSV negative. Acute hypoxia * 2/2 unspecified viral illness compounded by COPD, SINA, OHVS * wean oxygen as tolerated * requires 2 liters oxygen with activity. * followup with pulmonary for SINA mgmt. Chronic conditions: * obesity class III: complicates care and recovery * polycythemia DVT prophylaxis - Lovenox 40 mg sq BID Medications at Discharge Home Medications NK 06/13/24 Hospital Course Operations None Procedures None Weight / BMI Weight Weight: 227.25 kg Body Mass Index (BMI) 67.8 ABG / Lab / Microbiology Data 06/14/24 05:37 06/14/24 05:37 Laboratory: Laboratory Results - last 24 hr 06/13/24 21:20: WBC Cancelled, Corrected WBC Cancelled, RBC Cancelled, Hgb Cancelled, Hct Cancelled, MCV Cancelled, MCH Cancelled, MCHC Cancelled, RDW Std Deviation Cancelled, RDW Coeff of Pradeep Cancelled, Plt Count Cancelled, MPV Cancelled, Immature Gran % (Auto) Cancelled, Neut % (Auto) Cancelled, Lymph % (Auto) Cancelled, [place] % (Auto) Cancelled, Eos % (Auto) Cancelled, Baso % (Auto) Cancelled, Absolute Neuts (auto) Cancelled, Absolute Lymphs (auto) Cancelled, Total Counted Cancelled, Neutrophils % (Manual) Cancelled, Band Neutrophils % Cancelled, Lymphocytes % (Manual) Cancelled, Monocytes % (Manual) Cancelled, Eosinophils % (Manual) Cancelled, Basophils % (Manual) Cancelled, Metamyelocytes % Cancelled, Myelocytes % Cancelled, Promyelocytes % Cancelled, Blast Cells % Cancelled, Plasma Cell % (Manual) Cancelled, Other Cells % Cancelled, Nucleated RBC % Cancelled, Nucleated RBCs/100 WBC Cancelled, Differential Comment Cancelled, Diff Path Review Cancelled, Hypersegmented Neuts Cancelled, Atypical Lymphocytes Cancelled, Reactive Lymphocytes Cancelled, Smudge Cells Cancelled, Toxic Granulation Cancelled, Toxic Vacuolation Cancelled, Dohle Bodies Cancelled, Cierra Rods Cancelled, Platelet Estimate Cancelled, Plt Morphology Comment Cancelled, RBC Morphology Cancelled 06/13/24 21:20: RBC Morphology Cancelled, Polychromasia Cancelled, Hypochromasia Cancelled, Basophilic Stippling Cancelled, Anisocytosis Cancelled, Microcytosis Cancelled, Macrocytosis Cancelled, Spherocytes Cancelled, Sickle Cells Cancelled, Target Cells Cancelled, Tear Drop Cells Cancelled, Ovalocytes Cancelled, Stomatocytes Cancelled, [place] Bodies Cancelled, [place] Cells Cancelled, Bite Cells Cancelled, Crenated Cell Cancelled, Acanthocytes (Spur) Cancelled, Rouleaux Cancelled, Schistocytes Cancelled, Sodium 136, Potassium 3.9, Chloride 104, Carbon Dioxide 26.0, Anion Gap 6, BUN 9, Creatinine 0.83, Estim Creat Clear Calc 212.46, Est GFR (MDRD) Af Amer 125, Est GFR (MDRD) Non-Af 103, BUN/Creatinine Ratio 10.8, Glucose 113 H, Calcium 8.6, Troponin I High Sens 12, B-Natriuretic Peptide 29.4 06/13/24 22:30: WBC 9.7, RBC 5.30, Hgb 15.3, Hct 47.6, MCV 89.8, MCH 28.9, MCHC 32.1, RDW Std Deviation 47.6 H, RDW Coeff of Pradeep 14.6, Plt Count 231, MPV 9.9, Immature Gran % (Auto) 0.300, Neut % (Auto) 64.6, Lymph % (Auto) 25.3, [place] % (Auto) 7.5, Eos % (Auto) 2.0, Baso % (Auto) 0.3, Absolute Neuts (auto) 6.3, Absolute Lymphs (auto) 2.46, Nucleated RBC % 0 06/14/24 05:37: WBC 8.1, RBC 5.04, Hgb 14.6, Hct 46.2, MCV 91.7, MCH 29.0, MCHC 31.6 L, RDW Std Deviation 50.0 H, RDW Coeff of Pradeep 15.0 H, Plt Count 239, MPV 10.1, Immature Gran % (Auto) 0.200, Neut % (Auto) 64.1, Lymph % (Auto) 24.4, [place] % (Auto) 8.1, Eos % (Auto) 2.6, Baso % (Auto) 0.6, Absolute Neuts (auto) 5.2, Absolute Lymphs (auto) 1.98, Nucleated RBC % 0, Sodium 139, Potassium 3.4 L , Chloride 105, Carbon Dioxide 31.0, Anion Gap 3 L, BUN 8, Creatinine 0.72, Estim Creat Clear Calc 233.34, Est GFR (MDRD) Af Amer 147, Est GFR (MDRD) Non-Af 122, BUN/Creatinine Ratio 11.1, Glucose 127 H, Hemoglobin A1c 6.1 H, Calcium 8.5, Phosphorus 3.9, Magnesium 2.2, Total Bilirubin 0.60, AST 32, ALT 37, A lkaline Phosphatase 179 H, Total Protein 7.0, Albumin 3.1 L, Globulin 3.9, A lbumin/Globulin Ratio 0.8 L, TSH 1.840 Microbiology: Microbiology 06/14/24 07:43 Mucosa - Nasopharyngeal Respiratory Panel (PCR) - Final 06/13/24 21:10 Mucosa - Nose SARS-CoV-2, Influenza & RSV (PCR) - Final ABG: ABG 06/13/24 23:40 Specimen Type BUD Sample Site Not entered O2 % 3.0 VBG pH 7.35 VBG pO2 48 H VBG HCO3 33 H VBG Total CO2 35 H VBG O2 Sat (Calc) 80 H VBG Base Excess 8 H POC Mix VBG pCO2 Pt Tmp 59.9 H O2 Delivery Device Cannula Radiography Diagnostic Testing: Radiology Impression Chest X-Ray 06/13/24 21:28 IMPRESSION: Mild cardiomegaly and mild prominence of the pulmonary interstitium. No significant change. Reading Location: [facility] Instructions Discharge Diet: No restrictions DC O2, CPAP, BIPAP Needs RN Home O2 Qualification: Home O2 Qualification: Is the patient on home oxygen No 06/14/24 12:09 Home O2 Qualification: AT REST 1- Pulse Ox at rest 92 06/14/24 12:09 Home O2 Qualification: WITH AMBULATION 1- Pulse Ox with ambulation 85 06/14/24 12:09 1- Oxygen Flow Rate with 0 06/14/24 12:09 ambulation 2- Pulse Ox with ambulation 92 06/14/24 12:09 2- Oxygen Flow Rate with 2 06/14/24 12:09 ambulation Home O2 Discharge instructions: Yes Type of respiratory needs?: Oxygen Oxygen frequency: With Ambulation Oxygen liters per minute during Ambulation: 2 DC home with Oxygen: Yes Home O2 MD Review: I have reviewed the oxygen testing, and the patient qualifies for home oxygen equipment and portability. The patient is mobile in the home and the community. Meaningful Use Info Meaningful Use Meaningful Use Diagnoses (Choose all that apply): None applicable Ischemic Stroke Statin Dosing Therapy Reference: STATIN DOSE THERAPY REFERENCE: * Patients > 75 years receive moderate or high dose statin therapy. * Patients 75 years or YOUNGER should receive HIGH intensity statin dose unless contraindicated. You will be required to document reason for non-treatment if statin daily dose does not meet guidelines. HIGH DOSE STATIN THERAPY DAILY Atorvastatin > than or = to 40 mg Rosuvastatin > than or = to 20 mg Amlodipine + Atorvastatin > than or = to 2.5/40 mg Ezetimibe + Simvastatin 10/80 mg Simvastatin 80mg Discharge Plan Admission Admit Date/Time: 06/14/24 00:28 Primary Reason for Your Visit: hypoxia. Attending Provider: Ferny Coats Primary Care Provider: Care Physician,No Primary Consulting Providers: Isma Schneider Instructions Additional Instructions / Restrictions: You likely had a viral infection despite negative testing here. This was complicated by your weight. You will need oxygen with activity (2 liters/minute). Please follow up with pulmonary for outpt follow up. Discharge Orders/Prescriptions Prescriptions: No Action NK Referrals / Follow Up: [facility] [Provider Group] - Within 1 Month Care Physician,No Primary [Primary Care Provider] - Disposition Disposition (needs filled in before D/C Order can be placed): Home, Self Care
--- NOTE | 2024-06-14 15:36 | CASEMGMT ---
Addendum entered by Pratima Cole 06/14/24 16:26: Home O2 testing re-checked. Pt does not qualify for home O2. MADISON FRANKS back to room and he is aware and is appreciative. Dr Coats also made aware. Pt states he does not have a pulse ox. MADISON FRANKS encouraged him to purchase this to monitor his pulse ox. Questions answered and pt voices understanding. Pt does not have a PCP and is interested in getting one. Pt provided w/PCP directory for the [facility], per pt request. He was also provided w/[facility] info. 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 When he is not on the road, he lives in a camper in [place] and states he has everything he needs in the camper. He uses a cane @ baseline and denies further DME needs. Original Note: MADISON FRANKS NOTE: Home O2 testing completed, pt qualifies for O2 @ 2 L/M w/exertion. MADISON FRANKS to room. Pt resting in bed. Introduced self and role. Pt states he does not think he needs home O2. He states pulse ox mostly dropped as he went to sit down after walking and he thinks he was holding his breath, stating, My big belly gets in the way and I think I hold my breath. Libby WALLACE, states will re-test pt. Cher NUÑEZ RN, CM
== END 2024-06-14 17:52 | disposition home or self-care (01) ==
LOC: ED 22:15 → MS3 06-14 01:31
PROVIDERS: Admitting Provider Internal Medicine; Emergency Provider Emergency Medicine
DX: J06.9 Acute upper respiratory infection, unspecified (principal); J44.9 Chronic obstructive pulmonary disease, unspecified; Z68.45 Body mass index [BMI] 70 or greater, adult; E66.2 Morbid (severe) obesity with alveolar hypoventilation; E66.813 Obesity, class 3; G47.33 Obstructive sleep apnea (adult) (pediatric); R53.83 Other fatigue; F17.210 Nicotine dependence, cigarettes, uncomplicated; E87.29 Other acidosis; R53.1 Weakness; R06.02 Shortness of breath; I87.8 Other specified disorders of veins; D75.1 Secondary polycythemia
CPT/HCPCS: 99285; 36415; 71045; 80048; 80053; 82803; 83036; 83735; 83880; 84100; 84443; 84484; 85025; 87631; 87633; 93005; 94668; 96372; 96374; 99221; A4216; G0378; J2405

== ENCOUNTER 2024-09-06 00:23 | Inpatient (IN) | payer BC, MEDICAID, SELFPAY ==
[2024-09-06] VITALS (31 sets, daily range): BP systolic 98–158; BP diastolic 51–105; PULSE 70–88; RESP 16–30; TEMP 36.2–37.1; O2SAT 91–96; BMI 58.6; BMI 67.8
--- NOTE | 2024-09-06 00:36 | EKG12_ITS ---
Test Reason : SOB Blood Pressure : */* mmHG Vent. Rate : 78 BPM Atrial Rate : 78 BPM P-R Int : 166 ms QRS Dur : 96 ms QT Int : 392 ms P-R-T Axes : 56 52 57 degrees QTcB Int : 446 ms Normal sinus rhythm Normal ECG Confirmed by Se Walsh ([id number]), editor newspaper PATRICK MORALES ([id number]) on 09/07/2024 12:18:10 PM Referred By: Confirmed By: Se Walsh
--- NOTE | 2024-09-06 00:37 | EDS_ITS ---
HPI History of Present Illness Chief Complaint: Shortness of Breath Informant: patient and friend Narrative Narrative: 53-year-old male with a history of COPD but taking no maintenance medications or inhalers/nebulizers states he has been having trouble breathing for a while but worse in the past 3 days with increased cough and sputum production, color changed to green, no blood, chills, and some pleuritic discomfort in his left lung at times but not constantly. No other chest pain. Feeling malaised. No new GI symptoms or abdominal pain, palpitations, syncope, leg edema changes. 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 Smoking Status: Current every day smoker tobacco type: cigarettes Tobacco: How many years used: 36 alcohol intake: never substance use type: does not use ROS ROS ED Constitutional Constitutional ED: Reports chills and malaise; Denies fever(s) Eyes Eyes: Denies change in vision or diplopia ENT ENT ED: Denies rhinorrhea or sore throat Cardiovascular Cardiovascular: Reports chest pain and other Details: Chronic leg edema without changes ; Denies palpitations or syncope Respiratory/Chest Respiratory/Chest: Reports cough, dyspnea, dyspnea on exertion and sputum Gastrointestinal Gastrointestinal: Denies abdominal pain, diarrhea, nausea or vomiting Genitourinary Genitourinary ED: Denies dysuria or hematuria Musculoskeletal Musculoskeletal: Denies back pain or neck pain Integumentary Denies abscess or rash Neurologic Neurologic: Denies headache(s), paresthesias or weakness Psychiatric Psychiatric: Denies anxiety or suicidal thoughts EXAM Physical Exam Const Vital Signs: 09/06/24 00:23 09/06/24 00:47 09/06/24 00:53 Temperature 98 F Temperature Source Oral Pulse Rate 86 88 Respiratory Rate 26 H 20 H Respiratory Effort Blood Pressure Blood Pressure Mean Pulse Ox 92 Oxygen Delivery Method Room Air Room Air Oxygen Flow Rate (L/min) Fraction of Inspired Oxygen (FIO2) 09/06/24 00:59 09/06/24 00:59 09/06/24 01:10 Temperature Temperature Source Pulse Rate Respiratory Rate Respiratory Effort Normal Blood Pressure 141/62 H Blood Pressure Mean 88 Pulse Ox Oxygen Delivery Method Nasal Cannula Oxygen Flow Rate (L/min) 3 Fraction of Inspired Oxygen (FIO2) 09/06/24 01:19 09/06/24 01:27 09/06/24 02:00 Temperature 97.9 F 98.2 F Temperature Source Oral Temporal Pulse Rate 81 78 Respiratory Rate 25 H 16 Respiratory Effort Blood Pressure 152/91 H 98/51 L Blood Pressure Mean 111 66 Pulse Ox 91 94 Oxygen Delivery Method Nasal Cannula Nasal Cannula Nasal Cannula Oxygen Flow Rate (L/min) 3 4 Fraction of Inspired Oxygen (FIO2) 3 09/06/24 02:23 09/06/24 03:00 09/06/24 04:00 Temperature 98.2 F 98.7 F Temperature Source Oral Oral Pulse Rate 77 75 76 Respiratory Rate 20 H 19 H Respiratory Effort Blood Pressure 139/75 H 150/82 H Blood Pressure Mean 96 104 Pulse Ox 96 93 Oxygen Delivery Method Nasal Cannula Nasal Cannula Oxygen Flow Rate (L/min) 4 4 Fraction of Inspired Oxygen (FIO2) Positive well nourished, well developed and obese General Appearance ED: well developed and NAD Nutritional Appearance: obese HEENT Reports moist mucous membranes normocephalic and atraumatic Eyes PERRL and EOMs intact bilaterally Neck full ROM, no lymphadenopathy, supple and no meningeal signs Resp clear to auscultation bilaterally Resp Narrative: A little tachypneic no distress, conversive in full sentences Cardio regular rate and regular rhythm Cardio Narrative: Faint heart sounds, exam limited by obesity GI non-tender and non-distended GI Narrative: Morbidly obese, nontender and without pain Auscultation: normoactive bowel sounds Palpation: soft Back/Spine no CVA tenderness General Back: other FROM Extremity normal to inspection General Extremety ED: Yes edema; Negative for pulses abnormal or tenderness General Extremity: edema bilateral lower extremity Details: moderate (Appears to be chronic stasis dermatitis); Negative for pulses abnormal Neuro oriented x3, CN's II-XII intact bilaterally and no sensory deficits noted Sensorium / Orientation: awake and alert Motor Exam: strength 5/5 throughout Psych Thought Process: normal thought process Skin no rashes or lesions noted and no wounds MDM MDM MDM Narrative Medical decision making narrative: Patient is having symptoms consistent with a COPD exacerbation. After nebulizer treatment he feels better, however his oxygen went lower, down to 84% on room air and he is not on oxygen at home. Put him on nasal cannula which kept him in the low 90s. Two-view chest x-ray on my interpretation shows possibility of bilateral pneumonia. Cardiac workup unremarkable. He is amenable to staying in the hospital. Empiric antibiotics were started and I added a proBNP because of his diffuse leg edema bilaterally and a D-dimer. He is 53 and his D-dimer came back at 0.53. Technically the cutoff would be 0.52 for him when corrected for his age, however it is also noted that in 2 months he is going to be 54. He is feeling better, his symptoms are that of infection/COPD, so I think this is sensitive enough to rule out PE in context of his clinical symptoms. Given his hypoxemia, will admit. Solu-Medrol, Rocephin, Zithromax started. His proBNP came back within normal limits for his age. Lab Data Attestation: I reviewed the patient's lab results. Labs: Laboratory Results - last 24 hr 09/06/24 09/06/24 00:52 02:48 WBC 10.6 RBC 6.08 Hgb 17.7 H Hct 52.6 MCV 86.5 MCH 29.1 MCHC 33.7 RDW Std Deviation 43.9 RDW Coeff of Pradeep 13.9 Plt Count 258 MPV 9.6 Immature Gran % (Auto) 0.300 Neut % (Auto) 75.4 H Lymph % (Auto) 15.8 L Wilkinson % (Auto) 6.6 Eos % (Auto) 1.4 Baso % (Auto) 0.5 Absolute Neuts (auto) 8.0 H Absolute Lymphs (auto) 1.67 Nucleated RBC % 0 D-Dimer Quant (PE/DVT) 0.53 H* Sodium 137 Potassium 4.2 Chloride 101 Carbon Dioxide 24.5 Anion Gap 11 BUN 11 Creatinine 0.75 Estim Creat Clear Calc 203.83 Est GFR (MDRD) Non-Af 109 BUN/Creatinine Ratio 15.2 Glucose 113 H Calcium 8.9 Troponin T High Sens 10 Troponin T Hi Sens 2 Hr 9 NT pro BNP II 306 Radiography Diagnostic Testing: Clinical Impression(s) from Imaging Studies Chest X-Ray 09/06/24 01:20 IMPRESSION: Bilateral patchy increased appearance of the perihilar markings with a lower zone predominance may represent inflammatory/infectious process with possibility of edema considered less likely, clinically correlate. No pleural effusion. No focal consolidation. There is a continued appearance of narrowing of the midtrachea around the level of the clavicular heads which has a similar appearance to the prior studies and may represent possibility of goiter or other process, clinically correlate. Reading Location: [facility] Rhythm Strip Rhythm Strip: Sinus Rhythm Rate: 78 Ectopy: None EKG Initial EKG: Attestation: I personally reviewed and interpreted this EKG as follows: Interpretation: Sinus Rhythm and No Acute Injury Pattern Comments: Nml axis & intervals; nml EKG Management Discussion w/another healthcare provider: Hospitalist Discharge Plan Dx/Rx/DC Orders Clinical Impression: Hypoxemia, Acute exacerbation of chronic obstructive pulmonary disease (COPD), Pneumonia Disposition Disposition: Acute Care [facility]
[2024-09-06] MEDS: MethylPREDNISolone 125 MG/2 ML Vial IV (00:57)
[2024-09-06] MEDS: Ipratropium/Albuterol Sulfate 3 ML AMPUL.NEB INHALATION (01:00)
[2024-09-06 01:08] LABS: Absolute Lymphocyte Count 1.67 X10^3/uL (0.83-4.51); Basophil# 0.05 X10^3/uL; Basophil% 0.5 % (0-1); Eosinophil# 0.15 X10^3/uL; Eosinophils% 1.4 % (0-5); Hematocrit 52.6 % (40-54); Hemoglobin 17.7 g/dL (13.0-16.5); Lymphocyte # 1.67 X10^3/ul (0.83-4.51); Lymphocyte % 15.8 % (19-41); Mean Corp Hgb Conc 33.7 g/dL (32-36); Mean Corpuscular Hgb 29.1 pg (27.0-32.0); Mean Corpuscular Volume 86.5 fL (80-94); Mean Platelet Vol. 9.6 fl (6.2-12.0); Monocyte% 6.6 % (0-10); NRBC Flagged by Analyzer 0 % (0-5); Neutrophil # 7.98 X10^3/uL (2.7-7.7); Neutrophil % 75.4 % (47-70); Platelet Count 258 K/mm3 (150-450); RBC Distribution Width CV 13.9 % (11.6-14.6); RBC Distribution Width SD 43.9 fl (35.1-43.9); Red Blood Count 6.08 M/mm3 (4.6-6.2); White Blood Count 10.6 K/mm3 (4.4-11.0)
--- NOTE | 2024-09-06 01:20 | RAD_ITS ---
PROCEDURE: CHEST PA AND LATERAL 09/06/2024 REASON FOR EXAM: COUGH/SOB TECHNIQUE: Frontal and lateral views of the chest. COMPARISON: 06/13/2024 FINDINGS: Bilateral patchy increased appearance of the perihilar markings with a lower zone predominance may represent inflammatory/infectious process with possibility of edema considered less likely, clinically correlate. No pleural effusion. No focal consolidation. The cardiac and mediastinal contours appear within limits. There is a continued appearance of narrowing of the midtrachea around the level of the clavicular heads which has a similar appearance to the prior studies and may represent possibility of goiter or other process, clinically correlate. The visualized osseous structures appear within limits. RAD/Chest PA and Lateral IMPRESSION: Bilateral patchy increased appearance of the perihilar markings with a lower zo ne predominance may represent inflammatory/infectious process with possibility of edema considered less likel y, clinically correlate. No pleural effusion. No focal consolidation. There is a continued appearance of narrowing of the midtrachea around the level of the clavicular heads which has a similar appearance to the prior studies and may represent possibility of goiter or othe r process, clinically correlate. Reading Location: [id number]
[2024-09-06 02:01] LABS: Troponin T High Sensitivity 10 ng/L (<=22)
[2024-09-06 02:09] LABS: Anion Gap 11 (5-15); BUN 11 mg/dL (4-19); BUN/Creat Ratio 15.2 RATIO (10-20); Calcium,Total 8.9 mg/dL (7.6-11.0); Carbon Dioxide 24.5 mmol/L (21.0-32.0); Chloride 101 mmol/L (98-108); Creatinine, Serum 0.75 mg/dL (0.70-1.20); EST Glomerular Filtration Rate 109 (>60); Estimated Creatinine Clearance 203.83 ml/min (50-250); Glucose 113 mg/dL (70-99); Potassium 4.2 mmol/L (3.3-5.1); Sodium Level 137 mmol/L (133-145)
[2024-09-06] MEDS: Azithromycin 500 MG in 0.9% Normal Saline (250mL Bag) 250 ML 255 MG IV ×2 (02:43→21:27)
[2024-09-06 02:55] LABS: D-Dimer Quantitative (DVT/PE) 0.53 FEU/ug/m (0.27-0.49)
[2024-09-06 03:01] LABS: Pro- Brain NATRIURETIC PEPTIDE 306 pg/mL (<=900)
[2024-09-06 03:09] LABS: Troponin T High Sens 2 HR 9 ng/L (<=22)
[2024-09-06] MEDS: Piperacil/Tazobactam 4.5 GM in 0.9% Normal Saline (100mL MB+) 100 ML IV (03:59)
--- NOTE | 2024-09-06 04:09 | PCM.HP.STD ---
[facility] - General General Date of Admission: 09/06/24 Date of Service: 09/06/24 Chief Complaint: SOB. [facility] Narrative AZALIA MATTHEW, is a 53 M with a past medical history of tobacco abuse ~1 ppd x ~36 years; with subsequent COPD with 'blue-bloater' phenotype, super-morbid obesity; with BMI of 58.7 this admission, SINA, history of polycythemia; attributed to chronic hypoxia, chronic venous stasis with history of bilateral foot ulcers and LE cellulitis with admission here from December 22, 2023 to December 25, 2023 with subsequent discharge on oral doxycycline and with follow up treatment by the [facility] here on January 09, 2024 with noted improvement, history of appendectomy, history of cholecystectomy, history of homelessness and relatively recent admission here from June 13, 2024 to June 14, 2024 for treatment of viral URI with hypoxia in the setting of obesity hypoventilation syndrome and SINA complicated by ongoing tobacco abuse with COPD that was not flaring at that time who re-presents to [facility] ER complaining of shortness of breath. Mr. Matthew reports his symptoms began ~3 days prior to admission with increasing cough productive of greenish sputum and dyspnea on exertion that progressed to shortness of breath at rest. He admits to taking no maintenance medications or inhalers/nebulizers. He states his symptoms are similar to his previous COPD exacerbations with malaise and intermittent pleuritic discomfort primarily in his Left lung that is made worse with cough. He admits to chills and pleuritic chest pain with increasing wheezing. He denies associated fever, visual changes, runny nose, sore throat, palpitations, heart racing, syncope, near syncope, abdominal pain, nausea, vomiting, diarrhea, back pain, headache or rash. In the ER he was noted to have a CXR that revealed bilateral patchy increased appearance of the perihilar markings with a lower zone predominance that may represent inflammatory/infectious process with possibility of edema considered less likely and clinical correlation recommended with no pleural effusion or focal consolidation but with a continued appearance of narrowing of the mid-trachea around the level of the clavicular heads which is a similar appearance to prior studies and may represent possibility of goiter or other process with clinical correlation recommended. He was then diagnosed with suspected Pneumonia complicated by clinical evidence of AE COPD with Acute Respiratory Insufficiency compounded by mildly elevated D-dimer 0.53 present on admission and he was then admitted to the general medical floor for ongoing care for status expected to extend beyond 2 midnights. [facility] Medical History (Updated 09/06/24 @ 05:[address] 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 Eyes: Patient denies changes in vision or discharge from eyes. ENT: Patient denies runny nose, sore throat or ear pain. Resp: Patient admits to dyspnea on exertion the progressive shortness of breath at rest with wheezing and cough productive of greenish sputum as per HPI. CV: Patient admits to pleuritic chest pain mainly over his left lower rib cage with chronic lower extremity edema. He denies palpitations or heart racing. GI: Patient denies abdominal pain, nausea, vomiting, diarrhea or constipation. : Patient denies dysuria, hematuria urinary frequency. MSK: Patient denies arthralgias or myalgias. Skin: Patient denies rash, abscess, wounds or jaundice. Psych: Patient denies symptoms of uncontrolled depression or anxiety. Neuro: Patient denies headache, paresthesias or focal neurologic deficits. Allergy: Patient denies lip swelling, tongue swelling or urticaria. Hematology: Patient denies easy bleeding or easy bruisability. Endocrinology: Patient denies polyuria, polydipsia, polyphagia or heat/cold intolerance. 14 point ROS otherwise negative except for positives noted above in HPI. Vital Signs Vital Signs Vital Signs: 09/06/24 00:23 09/06/24 00:47 09/06/24 00:53 Temperature 98 F Temperature Source Oral Pulse Rate 86 88 Respiratory Rate 26 H 20 H Respiratory Effort Blood Pressure Blood Pressure Mean Pulse Ox 92 Oxygen Delivery Method Room Air Room Air Oxygen Flow Rate (L/min) Fraction of Inspired Oxygen (FIO2) 09/06/24 00:59 09/06/24 00:59 09/06/24 01:10 Temperature Temperature Source Pulse Rate Respiratory Rate Respiratory Effort Normal Blood Pressure 141/62 H Blood Pressure Mean 88 Pulse Ox Oxygen Delivery Method Nasal Cannula Oxygen Flow Rate (L/min) 3 Fraction of Inspired Oxygen (FIO2) 09/06/24 01:19 09/06/24 01:27 09/06/24 02:00 Temperature 97.9 F 98.2 F Temperature Source Oral Temporal Pulse Rate 81 78 Respiratory Rate 25 H 16 Respiratory Effort Blood Pressure 152/91 H 98/51 L Blood Pressure Mean 111 66 Pulse Ox 91 94 Oxygen Delivery Method Nasal Cannula Nasal Cannula Nasal Cannula Oxygen Flow Rate (L/min) 3 4 Fraction of Inspired Oxygen (FIO2) 3 09/06/24 02:23 09/06/24 03:00 Temperature 98.2 F Temperature Source Oral Pulse Rate 77 75 Respiratory Rate 20 H Respiratory Effort Blood Pressure 139/75 H Blood Pressure Mean 96 Pulse Ox 96 Oxygen Delivery Method Nasal Cannula Oxygen Flow Rate (L/min) 4 Fraction of Inspired Oxygen (FIO2) Weight Weight: 432 lb 12.278 oz Body Mass Index (BMI) 58.6 Physical Exam Const alert, oriented x3 and no apparent distress Constitutional Narrative: Patient is morbidly obese and dyspneic at rest. General Appearance: cooperative HEENT normocephalic, head/scalp atraumatic, hearing grossly normal bilaterally and moist oral mucous membranes Eyes PERRL and EOMs intact bilaterally Neck no lymphadenopathy and supple Resp Resp Narrative: Diminished breath sounds throughout with scattered wheezing and rhonchi. Auscultation: rhonchi and wheezes Cardio regular rate and regular rhythm GI normal to inspection, nondistended, normoactive bowel sounds, soft to palpation, non-tender and non-distended GI Narrative: Morbidly obese. Extremity Extremity Narrative: ~1-2+ bilateral lower extremity pitting edema. Skin Skin Narrative: Patient has evidence of rash, abscess, wounds or jaundice. Neuro oriented x3, CN's II-XII intact bilaterally, moves all extremities and no focal motor deficits Sensorium / Orientation: awake, alert, oriented to person, oriented to place and oriented to time Speech: speech normal Psych affect normal Results Medical Records Data Attestation: I reviewed the patient's medical records Lab / Micro Data Attestation: I reviewed the patient's lab results. 09/06/24 00:52 09/06/24 00:52 Labs: Laboratory Results - last 24 hr 09/06/24 00:52: WBC 10.6, RBC 6.08, Hgb 17.7 H, Hct 52.6, MCV 86.5, MCH 29.1, MCHC 33.7, RDW Std Deviation 43.9, RDW Coeff of Pradeep 13.9, Plt Count 258, MPV 9.6, Immature Gran % (Auto) 0.300, Neut % (Auto) 75.4 H, Lymph % (Auto) 15.8 L, [place] % (Auto) 6.6, Eos % (Auto) 1.4, Baso % (Auto) 0.5, Absolute Neuts (auto) 8.0 H, Absolute Lymphs (auto) 1.67, Nucleated RBC % 0, D-Dimer Quant (PE/DVT) 0.53 H*, Sodium 137, Potassium 4.2, Chloride 101, Carbon Dioxide 24.5, Anion Gap 11, BUN 11, Creatinine 0.75, Estim Creat Clear Calc 203.83, Est GFR (MDRD) Non-Af 109, BUN/Creatinine Ratio 15.2, Glucose 113 H, Calcium 8.9, Troponin T High Sens 10, NT pro BNP II 306 09/06/24 02:48: Troponin T Hi Sens 2 Hr 9 Micro: Microbiology 09/06/24 00:45 Mucosa - Nose SARS-CoV-2, Influenza & RSV (PCR) - Final Rhythm Strip Rhythm Strip: Sinus Rhythm Rate: 78 Ectopy: None Imaging Radiology Impression Chest X-Ray 09/06/24 01:20 IMPRESSION: Bilateral patchy increased appearance of the perihilar markings with a lower zone predominance may represent inflammatory/infectious process with possibility of edema considered less likely, clinically correlate. No pleural effusion. No focal consolidation. There is a continued appearance of narrowing of the midtrachea around the level of the clavicular heads which has a similar appearance to the prior studies and may represent possibility of goiter or other process, clinically correlate. Reading Location: [id number] Imaging Services [address] [place] [address] [id number] CTA Chest W/WO Contrast MR#: [id number] Acct: [id number] Name: AZALIA MATTHEW II Rep #: [id number] : 1970 M 53 From: Jas Steve MD PCP: Care Physician,No Primary Status: ADM IN Study: CTA Chest W/WO Contrast Date of Exam: 09/06/24 Exam# [id number] Ordering Dr: Isma Schneider DO PROCEDURE: CTA CHEST W/WO CONTRAST 09/06/2024 REASON FOR EXAM: PNA SUSPECTED ON CXR PLUS ELEVATED D-DIMER. ? PE. TECHNIQUE: CTA imaging of the chest with intravenous contrast. Multiplanar and multisequence images were obtained. Coronal and sagittal MIP images CONTRAST: 100 cc Isovue 370 IV One or more dose reduction techniques were used (e.g., Automated exposure control, adjustment of the mA and/or kV according to patient size, use of iterative reconstruction technique). RADIATION DOSE SUMMARY: CTDlvol: 41.45 mGy DLP: 844.49 mGycm FINDINGS: Pulmonary venous greater than pulmonary arterial contrast density limits the evaluation for pulmonary embolism. No large central or hilar pulmonary embolism identified. The segmental and subsegmental branches are not well evaluated without a definite filling defect identified. Thoracic aorta appears within limits. No pericardial or pleural effusion. Status post cholecystectomy. A smooth symmetric narrowing of the midtrachea without obvious mass. The thyroid appears within limits. The central airways are patent. Bilateral perihilar ground-glass opacities appears greatest right upper lobe may be inflammatory or infectious, possible viral etiology not excluded. No focal consolidation. The visualized osseous structures appear within limits. CT/CTA Chest W/WO Contrast IMPRESSION: Pulmonary venous greater than pulmonary arterial contrast density limits the evaluation for pulmonary embolism. No large central or hilar pulmonary embolism identified. The segmental and subsegmental branches are not well evaluated without a definite filling defect identified. Bilateral perihilar ground-glass opacities appears greatest right upper lobe may be inflammatory or infectious, possible viral etiology not excluded. No focal consolidation. Reading Location: [id number] CC: Dr. Isma Schneider DO; No Primary Care Physician ~ Pharmacovigilance Safety Expert: Signed Assessment & Plan Assessment/Plan (1) Pneumonia: QUALIFIERS: Laterality: unspecified laterality Lung location: unspecified part of lung Pneumonia type: due to unspecified organism Qualified Code(s): J18.9 - Pneumonia, unspecified organism (2) Acute exacerbation of chronic obstructive pulmonary disease (COPD): (3) Tracheal stenosis: (4) Acute respiratory insufficiency: (5) Morbid obesity with BMI of 50.0-59.9, adult: (6) Obesity hypoventilation syndrome: (7) SINA (obstructive sleep apnea): (8) Tobacco abuse: (9) Elevated d-dimer: PLAN: Plan 1. Pneumonia - Admit to general medical floor. Maintain IV piperacillin-tazobactam and IV azithromycin begun in ER and await culture and sensitivity data. Check urinary antigens to Streptococcus pneumonia and Legionella. Check extended viral respiratory panel. Start acidophilus probiotic with supplemental vitamin D3, vitamin C and zinc to help boost immunity and hopefully speed recovery. Give scheduled guaifenesin twice daily. Give acetaminophen as needed for [id number] (level 1-5/10) pain or fever. Give morphine IV as needed for severe (level 6-10/10) pain. 2. AE COPD with CXR this admission revealing narrowing of mid-trachea around the level of the clavicular heads Acute Respiratory Insufficiency complicating #1 - Continue IV methylprednisolone begun in the ER. Wean supplemental oxygen as tolerated. CTA of the chest with IV contrast ordered to further delineate etiology of tracheal narrowing and to evaluate for PE. 3. Super-morbid obesity; with BMI of 58.7 this admission plus SINA and OHS compounding #1 & #2 - Weight loss will be recommended. Continue nocturnal CPAP as previous. Check TSH. This complicates his case and may hamper recovery. 4. History of tobacco abuse ~1 ppd x ~36 years; with subsequent COPD with 'blue-bloater' phenotype adding to the medical complexity of #1 - #3 - Tobacco Cessation will be strongly encouraged with Nicotine patch offered to control cravings. 5. Elevated D-dimer of 0.53 present on admission adding to the burden of disease outlined from #1 - #4 - Check CTA of chest with IV contrast and LE Doppler to evaluate for DVT. 6. History of polycythemia; attributed to chronic hypoxia related to tobacco abuse and OHS - Noted with hemoglobin of 17.7 g deciliter present on admission (up from 14.6 on June 14, 2024). 7. Relatively recent admission here from June 13, 2024 to June 14, 2024 for treatment of viral URI with hypoxia in the setting of obesity hypoventilation syndrome and SIAN complicated by ongoing tobacco abuse with COPD that was not flaring at that time - Noted. 8. Chronic venous stasis with history of bilateral foot ulcers and LE cellulitis with admission here from December 22, 2023 to December 25, 2023 with subsequent discharge on oral doxycycline and with follow up treatment by the [facility] here on January 09, 2024 with noted improvement - Noted. 9. History of appendectomy - Noted for the sake of completeness. 10. History of cholecystectomy - Noted. 11. History of homelessness - Noted. 12. DVT/GI prophylaxis - Enoxaparin 40 mg sq BID. Famotidine 20 mg PO BID. Total time: Approximately (but not less than) 75 minutes. Charges/Coding Visit Charges Inpatient E&M: 38390 Init Hosp L3
[2024-09-06] MEDS: Acetaminophen 500 MG Tablet 1000 MG PO (04:17)
--- NOTE | 2024-09-06 04:50 | VDLE_ITS ---
Reason For Study Reason For Study: Elevated D-dimer RIGHT LEFT GSV is normal. GSV is normal. CFV is compressible, spontaneous, phasic, competent CFV is compressible, spontaneous, phasic, competent, and demonstrates normal augmentation. and demonstrates normal augmentation. FV is compressible, spontaneous, phasic, competent FV is compressible, spontaneous, phasic, competent and demonstrates normal augmentation. and demonstrates normal augmentation. POP V is compressible, spontaneous, phasic, competent POP V is compressible, spontaneous, phasic, competent and demonstrates normal augmentation. and demonstrates normal augmentation. T/P Trunk is compressible. T/P Trunk is compressible. PTV is compressible. PTV is compressible. RT PerV is compressible. LT PerV is compressible. Procedure This is a venous duplex using B-mode, color flow and spectral Doppler. Exam performed in department. A preliminary report was called and/or faxed to [facility]. VL/Venous Duplex US - Sammy Extrem Interpretation Summary Deep veins of the bilateral lower extremities are patent and compressible segme ntally. There is no evidence of bilateral lower extremity deep vein thrombosis. The bilateral great saphenous veins appea r patent and compressible segmentally. Ordering Physician: Isma Schneider Performed By: Fabby Hilliard RVT
--- NOTE | 2024-09-06 04:50 | CT_ITS ---
PROCEDURE: CTA CHEST W/WO CONTRAST 09/06/2024 REASON FOR EXAM: PNA SUSPECTED ON CXR PLUS ELEVATED D-DIMER. ? PE. TECHNIQUE: CTA imaging of the chest with intravenous contrast. Multiplanar and multisequence images were obtained. Coronal and sagittal MIP images CONTRAST: 100 cc Isovue 370 IV One or more dose reduction techniques were used (e.g., Automated exposure control, adjustment of the mA and/or kV according to patient size, use of iterative reconstruction technique). RADIATION DOSE SUMMARY: CTDlvol: 41.45 mGy DLP: 844.49 mGycm FINDINGS: Pulmonary venous greater than pulmonary arterial contrast density limits the evaluation for pulmonary embolism. No large central or hilar pulmonary embolism identified. The segmental and subsegmental branches are not well evaluated without a definite filling defect identified. Thoracic aorta appears within limits. No pericardial or pleural effusion. Status post cholecystectomy. A smooth symmetric narrowing of the midtrachea without obvious mass. The thyroid appears within limits. The central airways are patent. Bilateral perihilar ground-glass opacities appears greatest right upper lobe may be inflammatory or infectious, possible viral etiology not excluded. No focal consolidation. The visualized osseous structures appear within limits. CT/CTA Chest W/WO Contrast IMPRESSION: Pulmonary venous greater than pulmonary arterial contrast density limits the ev aluation for pulmonary embolism. No large central or hilar pulmonary embolism identified. The segmental and subsegmental branches are not well evaluated without a definite filling defect identified. Bilateral perihilar ground-glass opacities appears greatest right upper lobe ma y be inflammatory or infectious, possible viral etiology not excluded. No focal consolidation. Reading Location: [id number]
[2024-09-06 05:28] LABS: Magnesium 2.1 mg/dL (1.5-2.2)
--- NOTE | 2024-09-06 05:56 | US_ITS ---
PROCEDURE: ULTRASOUND THYROID N/A REASON FOR EXAM: TRACHEAL STENOSIS ON CT. ? GOITER/THYROID MASS TECHNIQUE: Real-time grayscale and color flow imaging was performed along with routine image documentation. COMPARISON: NO RELEVANT PRIOR. FINDINGS: Right thyroid lobe size: 5.1 x 2.1 x 1.6 cm Left thyroid lobe size: 4.9 x 2.0 x 1.6 cm Isthmus: 0.4 cm Background parenchymal echotexture is heterogeneous. Nodules: No nodules are identified. US/Thyroid IMPRESSION: Normal thyroid gland size. No suspicious nodules are demonstrated. No follow-up warranted at this time. Reading Location: [facility]
[2024-09-06] MEDS: 0.9% Saline Lock 10 ML Syringe IV ×3 (06:49→20:10)
[2024-09-06] MEDS: 0.9% Normal Saline (1000mL) 1,000 ML 70 ML IV (06:49)
[2024-09-06] MEDS: Ascorbic Acid 500 MG Tablet 1000 MG PO ×2 (09:36→18:24)
[2024-09-06] MEDS: Famotidine 20 MG Tablet PO ×2 (09:36→21:35)
[2024-09-06] MEDS: Lactobacillis Acidophilus 1 CAP PO (09:36)
[2024-09-06] MEDS: Enoxaparin 40 MG/0.4 ML Syringe SC ×2 (09:36→21:35)
[2024-09-06] MEDS: Cholecalciferol (Vit D3) 125 MCG CAPSULE (5,000 UNITS) PO (09:37)
[2024-09-06] MEDS: MethylPREDNISolone 125 MG/2 ML Vial 60 MG IV ×2 (09:37→21:35)
[2024-09-06] MEDS: Zinc Sulfate 50 mg zinc (220 mg) ORAL capsule PO (09:38)
--- NOTE | 2024-09-06 10:05 | PN.HOSP_ITS ---
Hospitalist Note .-year-old gentleman with history of COPD admitted with shortness of breath for several days to weeks but got worse in the last 3 days with increased cough and sputum production, greenish-yellow sputum, chills. Pleuritic chest discomfort on the left chest Acute exacerbation of COPD: Possible viral pneumonia with super morbid obesity: CTA chest was negative for large central or hilar PE. Segmental and subsegmental could not be evaluated because of timing of contrast. Small symmetric narrowing of the mid trachea without obvious mass. Bilateral perihilar groundglass opacity appears greatest in the right upper lobe may be inflammatory or infectious. No focal consolidation. It still is possible viral pneumonia although respiratory panel is negative. Patient is being managed on scheduled bronchodilator, IV Solu-Medrol, Mucinex, incentive spirometry and Pep. Discontinue Zosyn. Continue azithromycin. Patient is being managed on scheduled bronchodilator, IV Solu-Medrol, Mucinex, incentive spirometry and Pep. Microbiology Past 72 Hours 09/06/24 11:05 Mucosa - Nose Respiratory Panel (PCR) - Final 09/06/24 00:45 Mucosa - Nose SARS-CoV-2, Influenza & RSV (PCR) - Final Laboratory Results 09/06/24 00:52: WBC 10.6, RBC 6.08, Hgb 17.7 H, Hct 52.6, MCV 86.5, MCH 29.1, MCHC 33.7, RDW Std Deviation 43.9, RDW Coeff of Pradeep 13.9, Plt Count 258, MPV 9.6, Immature Gran % (Auto) 0.300, Neut % (Auto) 75.4 H, Lymph % (Auto) 15.8 L, Gregory % (Auto) 6.6, Eos % (Auto) 1.4, Baso % (Auto) 0.5, Absolute Neuts (auto) 8.0 H, Absolute Lymphs (auto) 1.67, Nucleated RBC % 0, D-Dimer Quant (PE/DVT) 0.53 H*, Sodium 137, Potassium 4.2, Chloride 101, Carbon Dioxide 24.5, Anion Gap 11, BUN 11, Creatinine 0.75, Estim Creat Clear Calc 203.83, Est GFR (MDRD) Non- Af 109, BUN/Creatinine Ratio 15.2, Glucose 113 H, Calcium 8.9, Troponin T High Sens 10, NT pro BNP II 306 09/06/24 02:48: Magnesium 2.1, Troponin T Hi Sens 2 Hr 9, TSH 3.070 09/06/24 06:55: Urine Color Yellow, Urine Clarity Clear, Urine pH 5.0, Ur Specific [place] 1.010, Urine Protein 30 H, Urine Glucose (UA) Normal, Urine Ketones Negative, Urine Occult Blood 10 H, Urine Nitrite Negative, Urine Bilirubin Negative, Urine Urobilinogen Normal, Ur Leukocyte Esterase Negative, Urine RBC 0-5 SEEN, Urine WBC 0-5 SEEN, Ur Squamous Epith Cells 0-5 SEEN, Urine Bacteria 0 SEEN, Urine Mucus 0 SEEN
--- NOTE | 2024-09-06 10:08 | CASEMGMT ---
MADISON FRANKS Assessment: Face to Face with pt for initial transition planning/care coordination assessment. MADISON FRANKS introduced self and role at [facility], pt voices understanding and consents to assessment. Pt is A&O x4 and answers all questions appropriately at this time. Care providers, pharmacy, and demographics verified/updated. Strata: 1 Admitting Dx: Pneumonia, AE COPD and Espiratory Insufficiency PCP: None, provide pt with a list of local providers. Discussed VSC with patient. Specialists: Denies Preferred Pharmacy: [facility] Insurance: [employer] Prescription Benefit: yes LNOK: Friend, Jose Living Arrangements: Pt lives alone in a camper in [place]. Pt states he is being kicked off the property and needs to find a new living arragement. Pt would like to get in touch with [employer]. MADISON FRANKS informed SW on the floor of pt housing situation, SW to follow up. ADLs: Pt reports I at baseline, states I live alone and handle all my own stuff Transportation: Pt reports I drive myself when I'm able, [place]. When MADISON FRANKS asked about transportatoin home, pt states I have my own transportation, at least I better, he (referring to person who's land his camper is on) has my truck right now and he better bring it back DME: [facility] HHC/SNF: Denies Hx of. Pt states no concerns with going home at time of dc. MADISON FRANKS discussed O2 needs, Pt does not currently have oxygen at home. Pt states he does not have electricity, he states I have a solar panel with a 12 volt that I can keep a cooler of food cold in, but it wouldn't be enough for oxygen to run off of. LADONNA/GOLDEN to follow. Advised pt to ask CM if any further question/concerns/needs arise, voices understanding. Pt Goal: Pt needs some assistance finding a place to live upon [place]. States the jami who's land my camper is on, his sister just changed the land into her name and she's kicking me off of it. She thinks I'm just like everyone else that's on drugs, a thief, doing all kinds of bad things. But I'm not like them. Plan: MADISON FRANKS/LADONNA to follow along for safe DC plan. Follow for O2 needs. Lisa WALLACE CM
[2024-09-06 14:06] LABS: Bacteria 0 SEEN /hpf (None Seen); Mucous, Urine 0 SEEN /hpf (<or=2+)
[2024-09-06 14:09] LABS: Color, Urine Yellow (Yellow); Glucose, Dipstick Normal (Normal); Ketone-Dipstick Negative (Negative); Leukocyte Esterase-Dipstick Negative /ul (Negative); Nitrite-Dipstick Negative (Negative); Occult Blood-Urine 10 /ul (Negative); Protein-Dipstick 30 mg/dl (Negative); Urine Bilirubin Dipstick Negative (Negative); Urine Clarity Clear (Clear); Urine Urobilinogen Normal (Normal)
--- NOTE | 2024-09-06 14:50 | CASEMGMT ---
Addendum entered by Ana Castro 09/07/24 10:29: SW called [employer]; they do not accept people with oxygen and also do not have any availability at this time. DARLEEN Holden Original Note: Social Work- SW met with pt to discuss community resources. SW introduced self and role; pt agreeable to meeting. Pt reports that he lives in a camper on a friend's property, however, the friend recently lost the property and pt is now required to move his camper. 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 SW provided information for TRA with [employer] for food stamps, as well as [facility], [facility], and financial assistance resources. SW also provided information for homeward bound and residential list. SW provided information for SSD. SW answered questions and provided education. Pt reports no additional needs at this time. DARLEEN Holden
[2024-09-06 14:53] LABS: Red Blood Cells-Urine 0-5 SEEN /hpf (0-5); Squamous Epithelial Cells - UA 0-5 SEEN /hpf (0-5); White Blood Cells 0-5 SEEN /hpf (0-5)
[2024-09-06] MEDS: Acetaminophen 325 MG Tablet 650 MG PO (15:20)
[2024-09-06] MEDS: Morphine 2 MG/ML Syringe IV (20:10)
[2024-09-06] MEDS: 0.9% Normal Saline (250mL Bag) 250 ML 15 ML IV (21:30)
[2024-09-07] VITALS (11 sets, daily range): BP systolic 120–189; BP diastolic 58–97; PULSE 64–81; RESP 18–20; TEMP 36.5–36.7; O2SAT 87–94; BMI 92.2
[2024-09-07] MEDS: Morphine 2 MG/ML Syringe IV ×2 (04:04→09:04)
[2024-09-07] MEDS: 0.9% Saline Lock 10 ML Syringe IV ×3 (04:04→21:56)
[2024-09-07 05:51] LABS: Absolute Lymphocyte Count 1.25 X10^3/uL (0.83-4.51); Absolute Neutrophil Count 10.1 X10^3/uL (2.0-7.7); Basophil# 0.02 X10^3/uL; Basophil% 0.2 % (0-1); Hematocrit 52.9 % (40-54); Hemoglobin 17.6 g/dL (13.0-16.5); Lymphocyte # 1.25 X10^3/ul (0.83-4.51); Lymphocyte % 10.7 % (19-41); Mean Corp Hgb Conc 33.3 g/dL (32-36); Mean Corpuscular Hgb 29.5 pg (27.0-32.0); Mean Corpuscular Volume 88.8 fL (80-94); Mean Platelet Vol. 9.8 fl (6.2-12.0); Monocyte# 0.35 X10^3/uL; NRBC Flagged by Analyzer 0 % (0-5); Neutrophil # 10.05 X10^3/uL (2.7-7.7); Neutrophil % 85.7 % (47-70); Platelet Count 262 K/mm3 (150-450); RBC Distribution Width CV 13.9 % (11.6-14.6); RBC Distribution Width SD 45.1 fl (35.1-43.9); Red Blood Count 5.96 M/mm3 (4.6-6.2); White Blood Count 11.7 K/mm3 (4.4-11.0)
[2024-09-07 06:26] LABS: AST(SGOT) 17 U/L (<=37); Alanine Aminotransfer ALT/SGPT 23 U/L (<=46); Albumin, Serum 3.9 g/dL (3.5-5.0); Alkaline Phosphatase 174 U/L (40-129); Anion Gap 10 (5-15); BUN 12 mg/dL (4-19); BUN/Creat Ratio 18.5 RATIO (10-20); Calcium,Total 9.1 mg/dL (7.6-11.0); Carbon Dioxide 23.2 mmol/L (21.0-32.0); Chloride 103 mmol/L (98-108); Creatinine, Serum 0.65 mg/dL (0.70-1.20); EST Glomerular Filtration Rate 113 (>60); Estimated Creatinine Clearance 232.49 ml/min (50-250); Globulin 3.9 g/dL (2.2-4.2); Glucose 156 mg/dL (70-99); Phosphorus 2.8 mg/dL (2.7-4.5); Potassium 4.4 mmol/L (3.3-5.1); Protein, Total 7.8 g/dL (5.9-8.4); Sodium Level 136 mmol/L (133-145)
[2024-09-07] MEDS: MethylPREDNISolone 125 MG/2 ML Vial 60 MG IV ×2 (09:03→22:18)
[2024-09-07] MEDS: hydrALAZINE 20 MG/ML Vial 5 MG IV (09:03)
[2024-09-07] MEDS: Enoxaparin 40 MG/0.4 ML Syringe SC ×2 (09:13→22:02)
[2024-09-07] MEDS: Cholecalciferol (Vit D3) 125 MCG CAPSULE (5,000 UNITS) PO (09:15)
[2024-09-07] MEDS: Famotidine 20 MG Tablet PO ×2 (09:16→22:02)
[2024-09-07] MEDS: Ascorbic Acid 500 MG Tablet 1000 MG PO (09:16)
[2024-09-07] MEDS: Chlorthalidone 50 MG Tablet 12.5 MG PO (11:37)
--- NOTE | 2024-09-07 12:30 | CASEMGMT ---
MADISON FRANKS in to [facility]'s room to discuss needs at discharge. Patient plans to return to his camper that only has 12v battery for electricity. Patient currently on oxygen but hoping to wean off of it prior to discharge. Patient prefers [employer] if he would need oxygen and would utilize portable tanks. RN GOLDEN encouraged patient to continue to us IS. Patient denies further needs at discharge. MADISON FRANKS placed green sheet on chart should patient need home oxygen at discharge.
[2024-09-07] MEDS: Lisinopril 20 MG Tablet PO (12:56)
--- NOTE | 2024-09-07 16:06 | PCM.PN.HOSP ---
Reason for Visit Reason for Visit: Diagnoses Morbid (severe) obesity due to excess calories (09/06/24) Morbid (severe) obesity with alveolar hypoventilation (09/06/24) Obstructive sleep apnea (adult) (pediatric) (09/06/24) Pneumonia, unspecified organism (09/06/24) Other specified diseases of upper respiratory tract (09/06/24) Chronic obstructive pulmonary disease with (acute) exacerbation (09/06/24) Other abnormalities of breathing (09/06/24) Other specified abnormal findings of blood chemistry (09/06/24) Body mass index [BMI] 50.0-59.9, adult (09/06/24) Tobacco use (09/06/24) Objective Data Objective Data Vital Signs: Vital Signs Temp Pulse Resp BP Pulse Ox O2 Del Method O2 Flow Rate 98.1 F 79 20 H 146/87 H 94 Nasal Cannula 2 09/07/24 14:50 09/07/24 14:50 09/07/24 14:50 09/07/24 14:50 09/07/24 14:50 09/07/24 14:50 09/07/24 14:50 FiO2 3 09/06/24 01:19 Oxygen Flow Rate (L/min) 2 Oxygen Delivery Method Nasal Cannula Weight: 500 lb 14.244 oz Body Mass Index (BMI) 92.2 Intake & Output: Intake and Output for Last 24 Hours 09/05/24 09/06/24 09/07/24 23:59 23:59 23:59 Intake Total 3210 / 3210 387.5 / 387.5 Output Total 790 / 790 400 / 400 Balance 2420 / 2420 -12.5 / -12.5 Lab / Micro Data 09/07/24 05:00 09/07/24 05:00 Labs: Laboratory Results - last 24 hr 09/07/24 05:00: WBC 11.7 H, RBC 5.96, Hgb 17.6 H, Hct 52.9, MCV 88.8, MCH 29.5, MCHC 33.3, RDW Std Deviation 45.1 H, RDW Coeff of Pradeep 13.9, Plt Count 262, MPV 9.8, Immature Gran % (Auto) 0.400, Neut % (Auto) 85.7 H, Lymph % (Auto) 10.7 L, [place] % (Auto) 3.0, Eos % (Auto) 0.0, Baso % (Auto) 0.2, Absolute Neuts (auto) 10.1 H, Absolute Lymphs (auto) 1.25, Nucleated RBC % 0, Sodium 136, Potassium 4.4, Chloride 103, Carbon Dioxide 23.2, Anion Gap 10, BUN 12, Creatinine 0.65 L, Estim Creat Clear Calc 232.49, Est GFR (MDRD) Non-Af 113, BUN/Creatinine Ratio 18.5, Glucose 156 H, Calcium 9.1, Phosphorus 2.8, Total Bilirubin 0.70, AST 17, ALT 23, Alkaline Phosphatase 174 H, Total Protein 7.8, Albumin 3.9, Globulin 3.9, Albumin/Globulin Ratio 1.0 Micro: Microbiology 09/06/24 11:05 Mucosa - Nose Respiratory Panel (PCR) - Final 09/06/24 00:45 Mucosa - Nose SARS-CoV-2, Influenza & RSV (PCR) - Final Rhythm Strip Rhythm Strip: Sinus Rhythm Rate: 78 Ectopy: None Physical Exam Narrative Seen and examined Patient shortness of breath is better. Morbidly obese. Possibly might have sleep apnea with short and wide neck. Patient lives in [facility] Physical exam General: Alert, Oriented x3, Cooperative. BMI 67.9 kg/m? HEENT: Atraumatic, PERRLA, EOMI, Normocephalic. Oral: Deep oropharyngeal structures could not be visualized Neck: Supple, No JVD, Negative Carotid Bruits Chest wall/Lungs: Air entry diminished in bilateral lungs. Bilateral expiratory wheezing Cardiovascular: Regular rate and rhythm, Normal S1,S2, No M/G/R Abdomen: Bowel Sounds Present, Soft, Non Tender, Non-Distended : No dysuria. No renal angle tenderness. No suprapubic tenderness. Extremities: No edema, Capillary Refill Less than 3 Seconds Skin: No rashes, No breakdown Musculoskeletal: No Tenderness to Palpation of Joints or Extremities Neurological: Cranial nerves II-XII grossly intact, DTR 2+/4. No acute focal neurological deficit. Psych/Mental Status: Flat affect. Assessment & Plan Assessment/Plan (1) Pneumonia: QUALIFIERS: Pneumonia type: due to unspecified organism Laterality: unspecified laterality Lung location: unspecified part of lung Qualified Code(s): J18.9 - Pneumonia, unspecified organism (2) Acute exacerbation of chronic obstructive pulmonary disease (COPD): (3) Tracheal stenosis: (4) Acute respiratory insufficiency: (5) Morbid obesity with BMI of 50.0-59.9, adult: (6) Obesity hypoventilation syndrome: (7) SINA (obstructive sleep apnea): (8) Tobacco abuse: (9) Elevated d-dimer: PLAN: Plan 53 year-old gentleman with history of COPD admitted with shortness of breath for several days to weeks but got worse in the last 3 days with increased cough and sputum production, greenish-yellow sputum, chills. Pleuritic chest discomfort on the left chest Acute exacerbation of COPD, possible due to viral pneumonia with super morbid obesity: CTA chest was negative for large central or hilar PE. Segmental and subsegmental could not be evaluated because of timing of contrast. Small symmetric narrowing of the mid trachea without obvious mass. Bilateral perihilar groundglass opacity appears greatest in the right upper lobe may be inflammatory or infectious. No focal consolidation. It still is possible viral pneumonia although respiratory panel is negative. Patient is being managed on scheduled bronchodilator, IV Solu-Medrol, Mucinex, incentive spirometry and Pep. Discontinue Zosyn. Continue azithromycin. Patient is being managed on scheduled bronchodilator, IV Solu-Medrol, Mucinex, incentive spirometry and Pep. Super-morbid obesity; with BMI of 67.9 kg/m?. Patient might have obesity hypoventilation syndrome/obstructive sleep apnea Chronic cigarette smoking/tobacco abuse ~1 ppd x ~36 years, Chronic venous stasis/varicose vein due to super morbid obesity DVT/GI prophylaxis - Enoxaparin 40 mg sq BID. Famotidine 20 mg PO BID. Charges/Coding Visit Charges Inpatient E&M: 07337 Subs Hosp L2
[2024-09-07] MEDS: Azithromycin 500 MG in 0.9% Normal Saline (250mL Bag) 250 ML 255 MG IV (22:21)
[2024-09-08 03:38] VITALS: BP 126/72; PULSE 65; RESP 18; TEMP 36.6; O2SAT 92
[2024-09-08 03:52] VITALS: O2SAT 92
[2024-09-08 04:19] VITALS: BMI 92.2
[2024-09-08 04:28] VITALS: PULSE 78
[2024-09-08 08:51] VITALS: BP 133/92; PULSE 72; RESP 20; TEMP 36.6; O2SAT 94
[2024-09-08] MEDS: MethylPREDNISolone 125 MG/2 ML Vial 60 MG IV (08:57)
[2024-09-08] MEDS: Famotidine 20 MG Tablet PO (08:59)
[2024-09-08] MEDS: Chlorthalidone 50 MG Tablet 12.5 MG PO (08:59)
[2024-09-08] MEDS: Lisinopril 20 MG Tablet PO (08:59)
[2024-09-08] MEDS: Cholecalciferol (Vit D3) 125 MCG CAPSULE (5,000 UNITS) PO (08:59)
[2024-09-08] MEDS: Ascorbic Acid 500 MG Tablet 1000 MG PO (09:00)
[2024-09-08] MEDS: Enoxaparin 40 MG/0.4 ML Syringe SC (09:00)
[2024-09-08] MEDS: 0.9% Saline Lock 10 ML Syringe IV (09:05)
--- NOTE | 2024-09-08 09:41 | DCINST_ITS ---
Discharge Instructions DC O2, CPAP, BIPAP needs Home O2 Discharge instructions: No Follow Up Care Test Results: Test results from this visit will be discussed in further detail at your follow- up appointment, if applicable. Discharge Plan Admission Admit Date/Time: 09/06/24 04:44 Primary Reason for Your Visit: COPD exacerbation Attending Provider: Francesco Montgomery Primary Care Provider: Care Physician,No Primary Consulting Providers: Isma Schneider Discharge Orders/Prescriptions Prescriptions: New nicotine 14 mg/24 hr Patch 24 Hour 14 mg transdermal DAILY 28 Days Qty: 28 0RF lisinopril 20 mg Tablet 20 mg PO DAILY 30 Days Qty: 30 0RF chlorthalidone 50 mg Tablet 12.5 mg PO DAILY 30 Days Qty: 8 0RF albuterol sulfate 90 mcg/actuation aerosol powdr breath activated 1 inh inhalation Q6H 30 Days Qty: 1 0RF prednisone 20 mg tablet 40 mg PO DAILY 5 Days Qty: 10 0RF dextromethorphan-guaifenesin [Mucinex DM] 60-1,200 mg tablet extended release 12 hr 1 tab PO Q12H 7 Days Qty: 14 0RF Referrals / Follow Up: Care Physician,No Primary [Primary Care Provider] - Chadd Gomez DO [Med Staff - Active Staff] - Within 2 Weeks (For sleep study, PFT. Possible OHS/SINA) Disposition Disposition (needs filled in before D/C Order can be placed): Home, Self Care
--- NOTE | 2024-09-08 10:50 | DS.PCM_ITS ---
Providers Date of Admission: 09/06/24 Date of Discharge: 09/08/24 Primary Care Physician: No Primary Care Phys Reason For Visit: PNEUMONIA, AE COPD AND ESPIRATORY INSUFFICIENCY. Diagnosis Discharge Diagnosis (1) Pneumonia: Status: Acute Code(s): J18.9 - Pneumonia, unspecified organism Qualifiers: Pneumonia type: due to unspecified organism Laterality: unspecified laterality Lung location: unspecified part of lung Qualified Code(s): J18.9 - Pneumonia, unspecified organism (2) Acute exacerbation of chronic obstructive pulmonary disease (COPD): Status: Chronic Code(s): J44.1 - Chronic obstructive pulmonary disease with (acute) exacerbation (3) Tracheal stenosis: Status: Acute Code(s): J39.8 - Other specified diseases of upper respiratory tract (4) Acute respiratory insufficiency: Status: Acute Code(s): R06.89 - Other abnormalities of breathing (5) Morbid obesity with BMI of 50.0-59.9, adult: Status: Acute Code(s): E66.01 - Morbid (severe) obesity due to excess calories; Z68.43 - Body mass index [BMI] 50.0-59.9, adult (6) Obesity hypoventilation syndrome: Status: Acute Code(s): E66.2 - Morbid (severe) obesity with alveolar hypoventilation (7) SINA (obstructive sleep apnea): Status: Acute Code(s): G47.33 - Obstructive sleep apnea (adult) (pediatric) (8) Tobacco abuse: Status: Acute Code(s): Z72.0 - Tobacco use (9) Elevated d-dimer: Status: Acute Code(s): R79.89 - Other specified abnormal findings of blood chemistry Plan 53 year-old gentleman with history of COPD admitted with shortness of breath for several days to weeks but got worse in the last 3 days with increased cough and sputum production, greenish-yellow sputum, chills. Pleuritic chest discomfort on the left chest Acute exacerbation of COPD, possible due to viral pneumonia with super morbid obesity: CTA chest was negative for large central or hilar PE. Segmental and subsegmental could not be evaluated because of timing of contrast. Small symmetric narrowing of the mid trachea without obvious mass. Bilateral perihilar groundglass opacity appears greatest in the right upper lobe may be inflammatory or infectious. No focal consolidation. It still is possible viral pneumonia although respiratory panel is negative. Patient is being managed on scheduled bronchodilator, IV Solu-Medrol, Mucinex, incentive spirometry and Pep. Discontinue Zosyn. Continue azithromycin. Patient is being managed on scheduled bronchodilator, IV Solu-Medrol, Mucinex, incentive spirometry and Pep. 09/08: Patient is doing well. Wheezing has much improved. Patient on room air. Patient is discharged on burst therapy of prednisone, albuterol inhaler, Mucinex DM. Advised follow-up in pulmonary clinic for PFT and sleep studies Hypertensive urgency: Patient blood pressure was very high, when he came in about 189/97, 186/94 and got controlled on lisinopril 20 mg daily and chlorthalidone 12.5 mg daily. Prescription given for both antihypertensive medications. Patient has to find PCP follow-up within 1 month. Super-morbid obesity; with BMI of 67.9 kg/m?. Patient might have obesity hypoventilation syndrome/obstructive sleep apnea Chronic cigarette smoking/tobacco abuse ~1 ppd x ~36 years, prescription given for nicotine patch Chronic venous stasis/varicose vein due to super morbid obesity DVT/GI prophylaxis - Enoxaparin 40 mg sq BID. Famotidine 20 mg PO BID. Discharge medication reconciliation done. Discharge follow-up instructions completed. Discharge process discussed with the patient and all questions were answered to patient's satisfaction. Follow with PCP in 1 to 2 weeks Total time spent, exact 35 minutes on discharge meds reconciliation, examination, coordination of care with nurses and ancillary staff, review of imaging and blood test and discussion with the patient on follow-up instructions. Medications at Discharge Home Medications albuterol sulfate 90 mcg/actuation breath activated powder inhaler 1 inh inhalation Q6H 1 month #1 ea 09/08/24 chlorthalidone 50 mg tablet 12.5 mg (1/4 x 50 mg) PO DAILY 30 days #8 tabs 09/08/24 dextromethorphan-guaifenesin ER 60 mg-1,200 mg tab,extend release,12hr (Mucinex DM) 1 tab PO Q12H 7 days #14 tabs 09/08/24 lisinopril 20 mg tablet 20 mg PO DAILY 30 days #30 tabs 09/08/24 nicotine 14 mg/24 hr daily transdermal patch 14 mg transdermal DAILY 4 weeks #28 ea 09/08/24 prednisone 20 mg tablet 40 mg (2 x 20 mg) PO DAILY 5 days #10 tabs 09/08/24 Physical Exam Narrative Seen and examined Patient shortness of breath has much improved. No audible wheezing. Morbidly obese. Possibly might have sleep apnea with short and wide neck. Patient lives in [facility] Physical exam General: Alert, Oriented x3, Cooperative. BMI 67.9 kg/m? HEENT: Atraumatic, PERRLA, EOMI, Normocephalic. Oral: Deep oropharyngeal structures could not be visualized Neck: Supple, No JVD, Negative Carotid Bruits Chest wall/Lungs: Air entry diminished in bilateral lungs. Mild expiratory wheezing Cardiovascular: Regular rate and rhythm, Normal S1,S2, No M/G/R Abdomen: Bowel Sounds Present, Soft, Non Tender, Non-Distended : No dysuria. No renal angle tenderness. No suprapubic tenderness. Extremities: No edema, Capillary Refill Less than 3 Seconds Skin: No rashes, No breakdown Musculoskeletal: No Tenderness to Palpation of Joints or Extremities Neurological: Cranial nerves II-XII grossly intact, DTR 2+/4. No acute focal neurological deficit. Psych/Mental Status: Flat affect. Weight / BMI Weight Weight: 500 lb 14.244 oz Body Mass Index (BMI) 92.2 ABG / Lab / Microbiology Data 09/07/24 05:00 09/07/24 05:00 Microbiology: Microbiology 09/06/24 11:05 Mucosa - Nose Respiratory Panel (PCR) - Final 09/06/24 00:45 Mucosa - Nose SARS-CoV-2, Influenza & RSV (PCR) - Final D/C Instructions DC O2, CPAP, BIPAP Needs Home O2 Discharge instructions: No Meaningful Use Info Meaningful Use Meaningful Use Diagnoses (Choose all that apply): None applicable Ischemic Stroke Statin Dosing Therapy Reference: STATIN DOSE THERAPY REFERENCE: * Patients > 75 years receive moderate or high dose statin therapy. * Patients 75 years or YOUNGER should receive HIGH intensity statin dose unless contraindicated. You will be required to document reason for non-treatment if statin daily dose does not meet guidelines. HIGH DOSE STATIN THERAPY DAILY Atorvastatin > than or = to 40 mg Rosuvastatin > than or = to 20 mg Amlodipine + Atorvastatin > than or = to 2.5/40 mg Ezetimibe + Simvastatin 10/80 mg Simvastatin 80mg Discharge Plan Admission Admit Date/Time: 09/06/24 04:44 Primary Reason for Your Visit: COPD exacerbation Attending Provider: Francesco Montgomery Primary Care Provider: Care Physician,No Primary Consulting Providers: Isma Schneider Discharge Orders/Prescriptions Prescriptions: New nicotine 14 mg/24 hr Patch 24 Hour 14 mg transdermal DAILY 28 Days Qty: 28 0RF lisinopril 20 mg Tablet 20 mg PO DAILY 30 Days Qty: 30 0RF chlorthalidone 50 mg Tablet 12.5 mg PO DAILY 30 Days Qty: 8 0RF albuterol sulfate 90 mcg/actuation aerosol powdr breath activated 1 inh inhalation Q6H 30 Days Qty: 1 0RF prednisone 20 mg tablet 40 mg PO DAILY 5 Days Qty: 10 0RF dextromethorphan-guaifenesin [Mucinex DM] 60-1,200 mg tablet extended release 12 hr 1 tab PO Q12H 7 Days Qty: 14 0RF Referrals / Follow Up: Chadd Gomez DO [Med Staff - Active Staff] - Within 2 Weeks (For sleep study, PFT. Possible OHS/SINA) Care Physician,No Primary [Primary Care Provider] - Disposition Disposition (needs filled in before D/C Order can be placed): Home, Self Care Charges/Coding Visit Charges Inpatient E&M: 80150 Disch Hosp >30min
[2024-09-08 12:16] VITALS: BP 153/80; PULSE 71; RESP 16; TEMP 36.6; O2SAT 92
[2024-09-08] MEDS: Azithromycin 250 MG Tablet 500 MG PO (12:26)
[2024-09-08 12:29] VITALS: O2SAT 90; O2SAT 92
== END 2024-09-08 14:15 | disposition home or self-care (01) | DRG 190 ==
LOC: ED 03:04 → PCU 04:54
PROVIDERS: Admitting Provider Internal Medicine; Emergency Provider Emergency Medicine; Visit Provider Internal Medicine
DX: J44.1 Chronic obstructive pulmonary disease with (acute) exacerbation (principal); J12.9 Viral pneumonia, unspecified; E66.2 Morbid (severe) obesity with alveolar hypoventilation; Z68.43 Body mass index [BMI] 50.0-59.9, adult; J44.0 Chronic obstructive pulmonary disease with (acute) lower respiratory infection; I16.0 Hypertensive urgency; F17.210 Nicotine dependence, cigarettes, uncomplicated; J39.8 Other specified diseases of upper respiratory tract; Z90.49 Acquired absence of other specified parts of digestive tract; R06.89 Other abnormalities of breathing; R79.89 Other specified abnormal findings of blood chemistry; R09.02 Hypoxemia
CPT/HCPCS: 36415; 71046; 71275; 76536; 80048; 80053; 81001; 83735; 83880; 84100; 84443; 84484; 85025; 85379; 87631; 87633; 93005; 93970; 94640; 94668; 99252; 99284; Q9967; A4216; G0463

== ENCOUNTER 2024-11-09 21:59 | Inpatient (IN) | payer BC, MEDICAID, SELFPAY ==
[2024-11-09 22:00] VITALS: BP 131/79; PULSE 82; RESP 18; TEMP 36.6; O2SAT 91
[2024-11-09 22:02] VITALS: BMI 71.8
--- NOTE | 2024-11-09 22:18 | RAD_ITS ---
PROCEDURE: CHEST 1 VIEW (PORTABLE) 11/09/2024 REASON FOR EXAM: SOB TECHNIQUE: Frontal view of the chest. COMPARISON: 09/06/2024 FINDINGS: Lungs/Pleura: There is pulmonary vascular congestion, perihilar and interstitial pulmonary edema. No large pleural effusions. No pneumothorax. Heart/Mediastinum: Cardiomegaly. Bones/Soft tissues: No significant abnormality. RAD/Chest 1 View (Portable) IMPRESSION: Cardiomegaly with vascular congestion and pulmonary edema. Reading Location: [id number]
--- NOTE | 2024-11-09 22:18 | RAD_ITS ---
PROCEDURE: L/S SPINE MIN 4 VIEWS 11/09/2024 REASON FOR EXAM: LOW BACK PAIN, FALL WEEK AGO WORSENING PAIN TECHNIQUE: L/S SPINE MIN 4 VIEWS COMPARISON: None. FINDINGS: No evidence of acute fracture or subluxation. Multilevel spondylotic changes with varying degrees of disc space narrowing with vacuum disc phenomena, endplate sclerosis and anterior osteophytosis, and hypertrophic facet arthropathy. Normal symmetric appearance of the sacroiliac joints. Normal bone mineralization. Unremarkable soft tissues. Cholecystectomy surgical clips. RAD/L/S Spine Min 4 Views IMPRESSION: No evidence of acute fracture or subluxation. Multilevel degenerative changes. Reading Location: [id number]
--- NOTE | 2024-11-09 22:20 | EDS_ITS ---
HPI History of Present Illness Chief Complaint: Edema Narrative Narrative: Patient is a 53-year-old male with past medical history of COPD, BMI of 71, SINA who presented to the emergency department with chief complaint of low back pain, bilateral heel pain, swelling in his lower extremities with shortness of breath. Patient states that he recently became homeless he states and notes that he was recently started on a medication by his doctor for the swelling in his lower extremities he states that this is not Lasix. Patient states that has had significant worsening shortness of breath on exertion as well. Patient states that he cannot put pressure on his heels bilaterally as this is significantly painful for him he notes that this started today. Patient states that he fell about a week to week and a half ago after picking up a generator and he landed on his back. He states he did not pass out did not lose consciousness denies any blood thinning medications. He states that the other day he fell as well and landed on the left side in the doorway. Once again he states he did not hit his head not pass out. [facility] Medical History Tracheal stenosis Obesity hypoventilation syndrome SINA (obstructive sleep apnea) Tobacco abuse COPD (chronic obstructive pulmonary disease) History of cellulitis Morbid obesity Home Medications ?Medication ?Instructions ?Recorded ?Last Taken ?Type chlorthalidone 50 mg tablet 12.5 mg (1/4 x 50 mg) PO D AILY 30 09/08/24 Unknown Rx days #8 tabs dextromethorphan-guaifenesin ER 60 1 tab PO Q12H 7 day s #14 tabs 09/08/24 Unknown Rx mg-1,200 mg tab,extend release,12hr (Mucinex DM) lisinopril 20 mg tablet 20 mg PO DAILY 30 days #30 t abs 09/08/24 Unknown Rx nicotine 14 mg/24 hr daily 14 mg transdermal DAILY 4 w eeks 09/08/24 Unknown Rx transdermal patch #28 ea albuterol sulfate 90 mcg/actuation 1 inh inhalation Q6 H PRN shortness 11/09/24 Unknown History breath activated powder inhaler of breath losartan 50 mg-hydrochlorothiazide 1 tab PO DAILY 10/30 05/26 Unknown History 12.5 mg tablet Allergy/AdvReac Type Severity Reaction Status Date / Time No Known Allergies Allergy Verified 11/09/24 22:03 Family History Mother Cancer Father Cancer Surgical History History of cholecystectomy History of appendectomy Social History household members: friend(s) 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 Smoking Status: Current every day smoker tobacco type: cigarettes Tobacco: How many years used: 36 alcohol intake: never substance use type: does not use ROS ROS ED ROS Narrative Constitutional: Denies any fevers, chills, headaches Eyes: Denies change in vision double vision blurry vision Cardiovascular: Denies chest pain Respiratory: Complains shortness of breath as noted above denies coughing Abdomen: Denies abdominal pain nausea vomit diarrhea : Denies urinary symptoms Neurological: Denies any numbness, wheeze, tingling Musculoskeletal: Complains of low back pain, heel pain as noted above Skin: Denies any new rashes or lesions EXAM Physical Exam Narrative Exam Narrative: General: Patient lying in bed rest comfortably did not appear to be in acute distress Head: Atraumatic, normocephalic Eyes: PERRL bilaterally, EOMI blood, no conjunctival injection noted Neck: Soft, supple, trachea midline Cardiovascular: Regular rate and rhythm no murmurs gallops rubs noted Respiratory: Clear to auscultation bilaterally Abdomen: No tenderness palpation Musculoskeletal: Patient has tenderness palpation over the heels bilaterally Extremities: +4/5 strength noted in the bilateral upper and lower extremities, Neurological: Patient functions knew that he was at [facility] year is 2024 Skin: Patient has chronic skin changes noted to the bilateral lower extremities no concern for infection at this point time Const Vital Signs: 11/09/24 22:00 11/09/24 22:29 Temperature 97.9 F Temperature Source Oral Pulse Rate 82 Respiratory Rate 18 Blood Pressure 131/79 H Blood Pressure Mean 96 Pulse Ox 91 95 Oxygen Delivery Method Room Air Room Air MDM MDM MDM Narrative Medical decision making narrative: Patient is a 53-year-old male who presented to the emergency department with a chief complaint of low back pain, bilateral heel pain, dyspnea on exertion. On the differential diagnose includes Melamin to compression fracture, plantar fasciitis, CHF. Once workup is obtained reviewed he will be reevaluated. Echocardiogram from 12/22/2023 was reviewed and showed ejection fraction of 65% and they were unable to assess diastolic function. Patient CBC reviewed and showed a white blood count of 8.3, hemoglobin is 15.4, plate count of 253. Patient sodium was normal at 139, potassium normal 3.9, creatinine was 0.73. Patient's proBNP was 184. Patient chest x-ray reviewed by myself and by radiology which showed cardiomegaly with vascular congestion pulmonary edema. Patient lumbar spine reviewed by myself by radiology showed no acute fracture or subluxation multilevel degenerative changes. Patient's x-ray of his feet bilaterally showed calcaneal spurs no acute abnormalities marked generalized bilateral lower extremity soft tissue edema. This was reviewed by myself and by radiology as well. Patient was ambulated here in the emergency department and with minimal exertion he dropped to 86%. Patient was given IV Lasix 40 mg. Will discuss case with hospitalist for admission. Discussed case with hospitalist Dr. Toledo who will accept patient for admis nora. Updated the patient he was agreeable to plan all question concerns answered at bedside. Lab Data Labs: Laboratory Results - last 24 hr 11/09/24 22:28 WBC 8.3 RBC 5.37 Hgb 15.4 Hct 47.9 MCV 89.2 MCH 28.7 MCHC 32.2 RDW Std Deviation 46.8 H RDW Coeff of Pradeep 14.5 Plt Count 253 MPV 9.6 Immature Gran % (Auto) 0.200 Neut % (Auto) 66.1 Lymph % (Auto) 22.6 [place] % (Auto) 8.4 Eos % (Auto) 2.2 Baso % (Auto) 0.5 Absolute Neuts (auto) 5.5 Absolute Lymphs (auto) 1.88 Nucleated RBC % 0 Sodium 139 Potassium 3.9 Chloride 101 Carbon Dioxide 26.8 Anion Gap 11 BUN 11 Creatinine 0.73 Estim Creat Clear Calc 232.29 Est GFR (MDRD) Non-Af 109 BUN/Creatinine Ratio 14.3 Glucose 93 Calcium 9.0 NT pro BNP II 184 Radiography Diagnostic Testing: Clinical Impression(s) from Imaging Studies Chest X-Ray 11/09/24 22:18 IMPRESSION: Cardiomegaly with vascular congestion and pulmonary edema. Reading Location: [facility] Lumbar Spine X-Ray 11/09/24 22:18 IMPRESSION: No evidence of acute fracture or subluxation. Multilevel degenerative changes. Reading Location: [facility] Foot X-Ray 11/09/24 22:23 IMPRESSION: 1. Bilateral calcaneal spurs. No acute abnormality. 2. Marked generalized bilateral lower extremity soft tissue edema. Reading Location: [facility] Foot X-Ray 11/09/24 22:45 IMPRESSION: 1. Bilateral calcaneal spurs. No acute abnormality. 2. Marked generalized bilateral lower extremity soft tissue edema. Reading Location: [facility] Discharge Plan Triage Chief Complaint: Edema Other Complaint: Lower Extremity Injury ED Provider: Brennon Steiner Dx/Rx/DC Orders Clinical Impression: Acute hypoxic respiratory failure, SINA (obstructive sleep apnea), CHF (congestive heart failure), Bilateral leg edema, Dyspnea on exertion, Back pain, Heel pain, bilateral Prescriptions: No Action nicotine 14 mg/24 hr Patch 24 Hour 14 mg transdermal DAILY 28 Days Qty: 28 0RF lisinopril 20 mg Tablet 20 mg PO DAILY 30 Days Qty: 30 0RF chlorthalidone 50 mg Tablet 12.5 mg PO DAILY 30 Days Qty: 8 0RF dextromethorphan-guaifenesin [Mucinex DM] 60-1,200 mg tablet extended release 12 hr 1 tab PO Q12H 7 Days Qty: 14 0RF losartan-hydrochlorothiazide 50-12.5 mg tablet 1 tab PO DAILY albuterol sulfate 90 mcg/actuation aerosol powdr breath activated 1 inh inhalation Q6H PRN (Reason: shortness of breath) Primary Care Provider: Juliana Cox Referrals: Care Physician,No Primary [Non-Staff] - Print Language: [place] Disposition Disposition: [facility]
--- NOTE | 2024-11-09 22:23 | RAD_ITS ---
PROCEDURE: FOOT MIN 3 VIEWS 11/09/2024 REASON FOR EXAM: HEEL PAIN TECHNIQUE: Frontal lateral oblique radiographs of bilateral feet. COMPARISON: None. FINDINGS: No acute fracture or dislocation. Bilaterally, joint spaces are preserved. Alignment is anatomic on these nonweightbearing radiographs. No osseous erosion or destruction. Bilateral plantar calcaneal spurs, slightly larger on the right. Marked diffuse lower extremity soft tissue swelling/edema. RAD/Foot min 3 Views IMPRESSION: 1. Bilateral calcaneal spurs. No acute abnormality. 2. Marked generalized bilateral lower extremity soft tissue edema. Reading Location: [id number]
[2024-11-09 22:29] VITALS: O2SAT 95
--- NOTE | 2024-11-09 22:45 | RAD_ITS ---
PROCEDURE: FOOT MIN 3 VIEWS 11/09/2024 REASON FOR EXAM: HEEL PAIN TECHNIQUE: Frontal lateral oblique radiographs of bilateral feet. COMPARISON: None. FINDINGS: No acute fracture or dislocation. Bilaterally, joint spaces are preserved. Alignment is anatomic on these nonweightbearing radiographs. No osseous erosion or destruction. Bilateral plantar calcaneal spurs, slightly larger on the right. Marked diffuse lower extremity soft tissue swelling/edema. RAD/Foot min 3 Views IMPRESSION: 1. Bilateral calcaneal spurs. No acute abnormality. 2. Marked generalized bilateral lower extremity soft tissue edema. Reading Location: [id number]
--- OUTSIDE RECORDS SUMMARY | 2024-11-09 22:47 | XMS RPT_ITS | CCD ---
Author Organization [facility] Care Team Providers Care Stable Hand Name Role Phone MD LD GIMENEZ Primary Care Provider [phone] MD NELLY DIMAS Emergency Provider [phone] MD AIDE MONREAL Other Provider Unavailable MD ALLA HERNANDEZ Admit Provider MD ALLA HERNANDEZ Attending Provider AIDE MONREAL Consulting Unavailable ALLA HERNANDEZ Admitting Unavailable ALLA HERNANDEZ Attending Unavailable LD GIMENEZ Primary Care Unavailable JOSE, ANSON Attending Unavailable JOSE, ANSON Referring Unavailable JOSE, ANSON Primary Care Unavailable PCP, NONE Primary Care Unavailable DEEPAK, SHAWNA Attending Unavailable DEEPAK, SHAWNA Referring Unavailable MEDONE, SERVICE Admitting Unavailable PCP, NONE Primary Care Unavailable CUMMINS, CANELO Attending Unavailable CUMMINSMICHELLECANELO Referring Unavailable MEDONE, SERVICE Admitting Unavailable GLOSSER, JOSIAS Referring Unavailable MEDONE, SERVICE Admitting Unavailable GLOSSER, JOSIAS Attending Unavailable PCP, NONE Primary Care Unavailable MEDONE, SERVICE Admitting Unavailable VERONICA, AAFTAB Attending Unavailable VERONICA, AAFTAB Referring Unavailable PCP, NONE Primary Care Unavailable PCP, NONE Primary Care Unavailable CUMMINS, CANELO Admitting Unavailable ANASTASIIA, HUMERA H Consulting Unavailable MEDONE, SERVICE Attending Unavailable LIZBETH DON Consulting Unavailable PCP, NONE Primary Care Unavailable DEEPAK, SHAWNA Attending Unavailable DEEPAK, SHAWNA Referring Unavailable MEDONE, SERVICE Admitting Unavailable Pcp, None Primary Care Provider Unavailabl e Care Physician, No Primary Primary Care Provider Unavailable Dr. Jim Cortes DO Emergency Provider Dr. Isma Sheikh DO Admit Provider Unavail able Dr. Isma Sheikh DO Other Provider Unavail able Dr. Ferny Coats DO Attending Provider Dr. Ferny Coats DO Other Provider Grzegorz PETTIT, Dr. Soni Emergency Provider Dr. Isma Sheikh DO Attending Provider Unav ailrehan Montgomery MD, Dr. Maya Attending Provider Janay PETTIT, Dr. Isaacs Attending Provider [phone] Ulises PETTIT, Dr. Maya Other Provider Care Physician, No Primary Primary Care Unava ilable de Isma Peterson Admitting Unavailable de Isma Peterson Consulting Unavailable Francesco Montgomery Attending Unavailable Francesco Montgomery Consulting Unavailable Isma Parkinson Attending Unavailable Care Physician, No Primary Primary Care Unava ilable Irena Pérez Admitting Unavailable Irena Pérez Consulting Unavailable Isma Parkinson Consulting Unavailable Care Physician, No Primary Primary Care Unava ilable Ferny Gustafson Attending Unavailable de Isma Peterson Referring Unavailable Kareem Rizzo Attending Unavailable Care Physician, No Primary Primary Care Unava ilable Care Physician, No Primary Primary Care Unava ilable Julia LOOM CHECKER, Ray E Attending Unavailabl e Julia LOOM CHECKER, Ray E Consulting Unavailerika e Isma Parkinson Referring Unavailable Care Physician, No Primary Primary Care Unava ilable Julia LOOM CHECKER, Ray E Referring Unavailabl e Julia LOOM CHECKER, Ray E Attending Unavailabl e Julia LOOM CHECKER, Ray E Consulting Unavailabl e Irena Pérez Attending Unavailable Care Physician, No Primary Primary Care Unava ilable Julia LOOM CHECKER, Ray E Attending Unavailerika e Isma Parkinson Referring Unavailable Care Physician, No Primary Primary Care Unava ilable de Isma Peterson Consulting Unavailable Isma Sheikh Admitting Unavailable de Isma Peterson Attending Unavailable Ferny Coats Attending Unavailable Ferny Coats Consulting Unavailable Care Physician, No Primary Primary Care Unava ilable Julia LOOM CHECKER, Ray E Attending UnavailIsma Carolina Referring Unavailable Ferny Coats Attending Unavailable Care Physician, No Primary Primary Care Unava ilable de Isma Peterson Admitting Unavailable de Isma Peterson Consulting Unavailable Care Physician, No Primary Primary Care Unava ilable Isma Sheikh Consulting Unavailable Isma Sheikh Admitting Unavailable Francesco Montgomery Attending Unavailable Care Physician, No Primary Primary Care Unava ilable Irena Pérez Consulting Unavailable Irena Pérez Admitting Unavailable Isma Parkinson Attending Unavailable Care Physician, No Primary Primary Care Unava ilable Julia LOOM CHECKER, Ray E Attending Unavailabl e Isma Parkinson Referring Unavailable Isma Sheikh Attending Unavailable Medications Current Medications Medication Drug Class(es) Dates Sig (Normalized) Sig (Original) 200 actuat albuterol 0.09 mg/actuat dry powder inhaler (1 source) beta2-Adrenergic Agonist Start: 09-08-2024 Albuterol Sulfate 90 mcg/actuation aerosol powdr breath activated Active 1 NMA INHALATION EVERY 6 HOURS 05 31September 08, 2024 12:00am azithromycin 250 mg oral tablet (5 sources) Macrolide Antimicrobial Start: 05-21-2022 Azithromycin Active 250 MG PO As Per Instructions 6 May 21, 2022 12:00am take two tablets by mouth on day one then take one tablet by mouth on days 2-5 then stop benzonatate 100 mg oral capsule (5 sources) Non-narcotic Antitussive Start: 05-21-2022 take 1 capsule by mouth every six hours Benzonatate (Tessalon Perle) 100 MG Capsule Active 100 MG PO Q6H 12 May 21, 2022 1:31pm chlorthalidone 50 mg oral tablet (1 source) Thiazide-like Diuretic Start: 09-08-2024 Chlorthalidone 50 mg Tablet Active 12.5 mg PO DAILY 8 September 08, 2024 12:00am 12 hr dextromethorphan hydrobromide 60 mg / guaiFENesin 1200 mg extended release oral tablet (1 source) Uncompetitive T-[place] te Receptor Antagonist, Sigma-1 Agonist Start: 09-08-2024 take 60-1200 mg by mouth every twelve hours Dextromethorphan-Gu aifenesin (Mucinex Dm) 60-1,200 mg tablet extended release 12 hr Active 1 {tbl} PO Q12H 14 September 08, 2024 12:00am lisinopril 20 mg oral tablet (1 source) Angiotensin Converting Enzyme Inhibitor Start: 05-10-2025 take 1 tablet by mouth once daily Lisinopril 20 mg Tablet Active 20 mg PO DAILY September 08, 2024 12:00am Naproxen (1 source) Nonsteroidal Anti-inflammatory Drug Naproxen Sodium (ALEVE PO) Take by mouth. Active 24 hr nicotine 0.583 mg/hr transdermal system (3 sources) Cholinergic Nicotinic Agonist Start: 09-08-2024 apply 1 dose transdermal route every twenty-four hours Nicotine 14 mg/24 hr Patch 24 Hour Active 14 mg TD DAILY September 08, 2024 12:00am Start: 11-22-2023 apply 1 dose transde rmal route every twenty-four hours 1 patch (21 mg), Transdermal, EVERY 24 HOURS SCHEDULED (Daily), First dose on Tue11/22/23 at 1745, Until Discontinued Start: 11-22-2023 4 mg, Oral, VA N, Smoking cessation, Starting on Tue11/22/23 at 1713, Until Discontinued, Caution: Do not crush or chew. [place] (Nk) (1 source) Start: 06-13-2024 [place] (Nk) A ctive June 13, 2024 1:00am Ondansetron (ZOFRAN-ODT) disintegrating tablet 4 mg (1 source) Start: 11-22-2023 take 1 tablet by mouth every six hours as needed Ondansetron (ZOFRAN-ODT) disintegrating tablet 4 mg predniSONE 20 mg oral tablet (11 sources) Start: 09-08-2024 take 2 tablets by mouth once daily Prednisone 20 mg tablet Active 40 mg PO DAILY 10 September 08, 2024 12:00am Start: 05-21-2022 Prednisone Act manny 0 MG PO As Per Instructions 15 May 21, 2022 12:00am take one tablet by mouth twice daily for 5 days then take one tablet by mouth daily for 5 days then stop. Start: 01-05-2013 End: 01-11-2013 take 1 tablet by mouth twice daily Prednisone (Prednisone 2o Mg Tablet) 20 MG Tablet Discontinued 20 MG PO Two Times A Day January 04, 2013 11:00pm January 11, 2013 11:47am silver sulfADIAZINE 10 mg/ml topical cream (2 sources) Sulfonamide Antibacterial Start: 11-26-2023 silver sulfADIAZINE (SILVADENE) 1 % cream Apply topically two times a day. 50 g 11/26/2023 Active Completed/Discontinued Medications Medication Drug Class(es) Dates Sig (Normalized) Sig (Original) acetaminophen 325 mg oral tablet (3 sources) Start: 12-25-2023 End: 12-28-2023 Acetaminophen 325 mg Tablet Discontinued 650 mg PO EVERY 6 HOURS NEEDED as needed for Pain 1-10 Or Fever >100.7 0 December 25, 2023 12:00am December 28, 2023 3:06pm Start: 11-22-2023 take 1 tablet by lashay th every six hours as needed 650 mg, Oral, EVERY 6 HOURS PRN, Mild Pain, Fever, Headaches, Starting on Tue11/22/23 at 1714, Until Discontinued, Maximum dose of acetaminophen is 4000 mg from all sources in 24 hours. aluminum hydroxide 40 mg/ml / magnesium hydroxide 40 mg/ml oral suspension (1 source) Start: 11-22-2023 take 30 mL by mouth every six hours as needed 30 mL, Oral, EVERY 6 HOURS PRN, Indigestion, Starting on Tue11/22/23 at 1713, Until Discontinued amoxicillin 875 mg / clavulanate 125 mg oral tablet (2 sources) Penicillin-class Antibacterial Start: 12-28-2023 End: 06-13-2024 Amoxicillin-Pot Clavulanate 875-125 mg tablet Discontinued 1 {tbl} PO TWICE A DAY 18 02December 28, 2023 12:00am June 14, 2024 12:38am calcium carbonate 500 mg chewable tablet (1 source) Start: 11-22-2023 take 1 tablet by mouth every four hours as needed 1,000 mg, Oral, EVERY 4 HOURS PRN, Heartburn, Starting on Tue11/22/23 at 1713, Until Discontinued cefepIme (MAXIPIME) 2,000 mg in sodium chloride 0.9 % 100 mL ivpb (1 source) Start: 11-22-2023 End: 11-22-2023 2,000 mg, Intravenous, Administer over 30 Minutes, On Tue11/22/23 at 1530, NOW, 1 dose, Indications: Wound Infection ciprofloxacin 500 mg oral tablet (10 sources) Quinolone Antimicrobial Start: 06-27-2013 End: 05-20-2022 take 1 tablet by mouth twice daily Ciprofloxacin Hcl (Cipro) 500 MG Tablet Discontinued 500 MG PO Two Times A Day 14 June 27, 2013 12:00am May 20, 2022 11:52pm Start: 01-05-2013 End: 01-11-2013 take 1 tablet by mouth twice daily Ciprofloxacin Hcl (Cipro) 500 MG Tablet Discontinued 500 MG PO Two Times A Day January 04, 2013 11:00pm January 11, 2013 11:47am doxycycline hyclate 100 mg oral tablet (2 sources) Tetracycline-class Drug Start: 12-25-2023 End: 06-13-2024 take 1 tablet by mouth twice daily Doxycycline Hyclate 100 mg tablet Discontinued 100 mg PO TWICE A DAY 14 December 25, 2023 12:00am June 14, 2024 12:38am 0.6 ml enoxaparin sodium 100 mg/ml prefilled syringe (1 source) Low Molecular Weight Heparin Start: 11-22-2023 inject 1 dose by subcutaneous injection twice daily as needed 60 mg, Subcutaneous, EVERY 12 HOURS SCHEDULED (2 times per day), First dose on Tue11/22/23 at 2000, Until Discontinued, If administering subcutaneously: Do not administer into bruised or scarred skin, into or near wounds, or through clothing. For abdominal surgery patients, do not administer in the abdomen., Indications: Prophylaxis of Venous Thromboembolism, Allow pharmacy to adjust dose and frequency as needed based on indication of use, renal function, and other relevant information? Yes For electrolyte abnormalities subsequent to initial labs (refer to the [facility] Electrolyte Replacement Orders) (1 source) Start: 11-22-2023 Other, PRN, For electrolyte abnormalities, Starting on Tue11/22/23 at 1713, Until Discontinued, For Potassium level furosemide 40 mg oral tablet (5 sources) Loop Diuretic Start: 12-25-2023 End: 06-13-2024 take 1 tablet by mouth once daily Furosemide (Lasix) 40 mg tablet Discontinued 40 mg PO DAILY 60 December 25, 2023 12:00am June 14, 2024 12:38am Start: 11-24-2023 take 40 mg intraveno usly every twenty-four hours 40 mg, IV Push, EVERY 24 HOURS SCHEDULED (Daily), First dose on Magaly 11/24/23 at 1245, Until Discontinued, Caution: This medication looks and/or sounds like another medication. Start: 11-23-2023 End: 11-23-2023 take 1 dose intravenously three times daily 40 mg, IV Push, EVERY 8 HOURS SCHEDULED (3 times per day), First dose (after last modification) on Tue11/23/23 at 0600, Until Discontinued, Caution: This medication looks and/or sounds like another medication. Start: 11-22-2023 End: 11-22-2023 take 60 mg intravenously every six hours 60 mg, IV Push, EVERY 6 HOURS, 2 doses, First dose on Tue11/22/23 at 1515, Last dose on Tue11/22/23 at 2115, Caution: This medication looks and/or sounds like another medication. 0.5 ml HYDROmorphone hydrochloride 1 mg/ml prefilled syringe (1 source) Opioid Agonist Start: 11-24-2023 End: 11-24-2023 take 0.5 mg intravenously once 0.5 mg, IV Push, ONCE, 1 dose, On Tue11/24/23 at 1215, Caution: This medication looks and/or sounds like another medication. melatonin 3 mg oral tablet (1 source) Start: 11-22-2023 take 3 mg by mouth once daily as needed for sleep 3 mg, Oral, NIGHTLY PRN, Sleep, Starting on Tue11/22/23 at 1713, Until Discontinued ondansetron 4 mg oral tablet (5 sources) Serotonin-3 Receptor Antagonist Start: 06-27-2013 End: 05-20-2022 take 1 tablet by mouth every six hours Ondansetron Hcl (Zofran) 4 MG Tablet Discontinued 4 MG PO Q6H June 27, 2013 9:17pm May 20, 2022 11:52pm oxyCODONE hydrochloride 5 mg oral tablet (2 sources) Opioid Agonist Start: 11-24-2023 take 1 tablet by mouth every four hours as needed 5 mg, Oral, EVERY 4 HOURS PRN, Moderate Pain, for dressing changes., Starting on Tue11/24/23 at 1143, Until Discontinued, Caution: This medication looks and/or sounds like another medication. Start: 11-23-2023 End: 11-23-2023 take 1 dose by mouth once 5 mg, Oral, ONCE, 1 dose, On Tue11/23/23 at 2215, Caution: This medication looks and/or sounds like another medication. Perflutren Lipid Microsphere (DEFINITY) 6.52 MG/ML injection (1 source) Start: 11-23-2023 End: 11-23-2023 1 dose, Starting on Tue11/23/23 at 0924, Until Tue11/23/23 at 0929, Created by emily shoemaker Perflutren Lipid Microsphere (DEFINITY) injection 1.3 mL (1 source) Start: 11-23-2023 End: 11-23-2023 1.3 mL, IV Push, ONCE, 1 dose, On Tue11/23/23 at 1000, Mix 1.3ml with 8.7ml NaCl for IV injection., Radiology polyethylene glycol 3350 62265 mg powder for oral solution (1 source) Osmotic Laxative Start: 11-22-2023 take 17 g by mouth every twenty-four hours as needed 17 g, Oral, DAILY PRN, Constipation, constipation, Starting on Tue11/22/23 at 1713, Until Discontinued, This is a maintenance laxative, begin for prevention of constipation. microencapsulated potassium chloride 20 meq extended release oral tablet (3 sources) Start: 11-23-2023 End: 11-24-2023 40 mEq, Oral, ONCE, 1 dose, On Tue11/24/23 at 0715, If potassium level 3.4-3.6 Repeat potassium in AM Start: 11-22-2023 End: 11-22-2023 take 4-5 [oz_av] by mouth at mealtime 40 mEq, Oral, NOW, 1 dose, On Tue11/22/23 at 1530, Mix in 4-5 oz water or beverage - Take with food Unna-Flex Elastic Unna Boot 4x10 yards ex misc 1 Application (1 source) Start: 11-24-2023 End: 11-26-2023 1 Application, Topical, KEYON Y, First dose on Tue11/24/23 at 0900, Until Discontinued, After applying Aquacel ag to wounds on the bilateral lower legs, loosely wrap Unna zinc from ankle to knee followed by kerlix. Change daily and prn. , Wound 11/22/23 Pretibial Distal;Right, Wound 11/22/23 Pretibial Left, Wound 11/22/23 Pretibial Distal;Left Problems Active Problems Problem Classification Problem Date Documented Date Episodic/Chronic Allergic reactions (5 sources) Urticaria 05-21-2022 Episodic Chronic obstructive pulmonary disease and bronchiectasis (20 sources) Chronic obstructive lung disease; Translations: [Chronic obstructive pulmonary disease, unspecified] Onset: 11-22-2023 05-20-2022 Chronic Chronic ulcer of skin (10 sources) Non-pressure chronic ulcer of other part of left lower leg with unspecified severity; Translations: [Non-pressure chronic ulcer of other part of right lower leg with unspecified severity] Onset: 11-22-2023 12-28-2023 Chronic Congestive heart failure; nonhypertensive (7 sources) Heart failure, unspecified; Translations: [Unspecified diastolic (congestive) heart failure] Onset: 11-22-2023 Resolved: 11-26-2023 11-22-2023 Chronic Immunizations and screening for infectious disease (10 sources) Suspected disease caused by 2019-nCoV; Translations: [Person under investigation for COVID-19] 05-20-2022 Episodic Noninfectious gastroenteritis (5 sources) Gastroenteritis 05-21-2022 Episodic Nonspecific chest pain (10 sources) Chest discomfort; Translations: [Other chest pain] 05-20-2022 Episodic Other diseases of veins and lymphatics (1 source) Venous insufficiency (chronic) (peripheral); Translations: [Venous insufficiency (chronic) (peripheral)] Onset: 11-22-2023 Episodic Other hematologic conditions (2 sources) Erythrocytosis; Translations: [Secondary polycythemia] 01-02-2024 Episodic Other lower respiratory disease (5 sources) Dyspnea; Translations: [Shortness of breath] 05-20-2022 Episodic Other lower respiratory disease (5 sources) Hemoptysis; Translations: [Hemoptysis] 05-20-2022 Episodic Other lower respiratory disease (5 sources) Hemoptysis; Translations: [Hemoptysis, unspecified] 05-21-2022 Episodic Other lower respiratory disease (5 sources) Shortness of breath; Translations: [Shortness of breath] 05-21-2022 Episodic Other lower respiratory disease (1 source) Hypoxemia; Translations: [Hypoxemia] Onset: 11-22-2023 Episodic Other lower respiratory disease (4 sources) Respiratory insufficiency; Translations: [Other abnormalities of breathing] 09-06-2024 Episodic Other lower respiratory disease (2 sources) Hypoxemia; Translations: [Hypoxemia] 09-06-2024 Episodic Other lower respiratory disease (1 source) Other abnormalities of breathing; Translations: [Other abnormalities of breathing] Onset: 09-08-2024 Episodic Other nutritional; endocrine; and metabolic disorders (1 source) Body mass index (BMI) 60.0-69.9, adult; Translations: [Body mass index (BMI) 60.0-69.9, adult] Onset: 11-22-2023 Chronic Other nutritional; endocrine; and metabolic disorders (3 sources) Morbid (severe) obesity due to excess calories; Translations: [Morbid (severe) obesity due to excess calories] Onset: 11-22-2023 Chronic Other nutritional; endocrine; and metabolic disorders (4 sources) Morbid obesity; Translations: [Morbid (severe) obesity due to excess calories] 06-22-2024 Chronic Other nutritional; endocrine; and metabolic disorders (4 sources) Body mass index 40+ - severely obese; Translations: [Morbid (severe) obesity due to excess calories] 09-06-2024 Chronic Other nutritional; endocrine; and metabolic disorders (4 sources) Alveolar hypoventilation; Translations: [Morbid (severe) obesity with alveolar hypoventilation] 09-06-2024 Chronic Other nutritional; endocrine; and metabolic disorders (1 source) Body mass index (BMI) 50.0-59.9, adult; Translations: [Body mass index [BMI] 50.0-59.9, adult] Onset: 09-08-2024 Chronic Other nutritional; endocrine; and metabolic disorders (1 source) Morbid (severe) obesity with alveolar hypoventilation; Translations: [Morbid (severe) obesity with alveolar hypoventilation] Onset: 09-08-2024 Chronic Other screening for suspected conditions (not mental disorders or infectious disease) (15 sources) D-dimer above reference range; Translations: [Other specified abnormal findings of blood chemistry] Onset: 09-08-2024 05-20-2022 Episodic Other upper respiratory disease (2 sources) Stenosis of trachea; Translations: [Other specified diseases of upper respiratory tract] 09-06-2024 Episodic Other upper respiratory disease (1 source) Other specified diseases of upper respiratory tract; Translations: [Other specified diseases of upper respiratory tract] Onset: 09-08-2024 Episodic Other upper respiratory infections (6 sources) Viral upper respiratory tract infection; Translations: [Acute upper respiratory infection, unspecified] Onset: 06-14-2024 06-14-2024 Episodic Peripheral and visceral atherosclerosis (4 sources) Peripheral vascular disease, unspecified; Translations: [Peripheral vascular disease] Onset: 11-22-2023 11-26-2023 Chronic Pneumonia (except that caused by tuberculosis or sexually transmitted disease) (5 sources) Pneumonia; Translations: [Pneumonia, unspecified organism] Onset: 09-08-2024 09-06-2024 Episodic Residual codes; unclassified (6 sources) Obstructive sleep apnea syndrome; Translations: [Obstructive sleep apnea (adult) (pediatric)] 09-06-2024 Chronic Residual codes; unclassified (1 source) Obstructive sleep apnea (adult) (pediatric); Translations: [Obstructive sleep apnea (adult) (pediatric)] Onset: 09-08-2024 Chronic Residual codes; unclassified (2 sources) Edema; Translations: [Edema, unspecified] 12-28-2023 Episodic Residual codes; unclassified (6 sources) Tobacco user; Translations: [Tobacco use] 09-06-2024 Episodic Residual codes; unclassified (2 sources) Tobacco use; Translations: [Tobacco use] Onset: 01-31-2024 Episodic Respiratory failure; insufficiency; arrest (adult) (1 source) Acute respiratory failure with hypoxia; Translations: [Acute respiratory failure with hypoxia] Onset: 11-22-2023 Episodic Substance-related disorders (1 source) Nicotine dependence, cigarettes, uncomplicated; Translations: [Nicotine dependence, cigarettes, uncomplicated] Onset: 11-22-2023 Chronic Unclassified (1 source) For sleep study, PFT. Possible OHS/SINA Past or Other Problems Problem Classification Problem Date Documented Date Episodic/Chronic Fluid and electrolyte disorders (4 sources) Hypokalemia; Translations: [Metabolic alkalosis] Onset: 11-22-2023 01-02-2024 Episodic Other diseases of veins and lymphatics (3 sources) Disorder of vein of lower extremity; Translations: [Venous insufficiency (chronic) (peripheral)] Onset: 11-25-2023 11-26-2023 Episodic Other hematologic conditions (1 source) Secondary polycythemia; Translations: [Secondary polycythemia] Onset: 12-25-2023 Episodic Other lower respiratory disease (1 source) Hypoxia; Translations: [Hypoxemia] 11-22-2023 Episodic Residual codes; unclassified (2 sources) Edema, unspecified; Translations: [Edema, unspecified] Onset: 01-31-2024 Episodic Skin and subcutaneous tissue infections (9 sources) Cellulitis of left lower limb; Translations: [Cellulitis of right lower limb] Onset: 11-22-2023 11-22-2023 Episodic Results Test Name Value Interpretation Reference Range Facility Discharge Instructionon 08-30 Discharge Instruction [facility] Medical Records Department [address] [place] [address] Instructions for Home/Discharge Instructions 09/08/24 0941 MR#: [id number] Acct: [id number] Name: AZALIA MATTHEW II Rep #: [id number] : 1970 53 From: Francesco Montgomery MD PCP: Tena Physician,No Primary Status:ADM IN Discharge Instructions DC O2, CPAP, BIPAP needs Home O2 Discharge instructions: No Follow Up Care Test Results: Test results from this visit will be discussed in further detail at your follow-up appointment, if applicable. Discharge Plan Admission Admit Date/Time: 09/06/24 04:44 Primary Reason for Your Visit: COPD exacerbation Attending Provider: Francesco Montgomery Primary Care Provider: Tena Physician,No Primary Consulting Providers: Isma Sheikh Discharge Orders/Prescriptions Prescriptions: New nicotine 14 mg/24 hr Patch 24 Hour 14 mg transdermal DAILY 28 Days Qty: 28 0RF lisinopril 20 mg Tablet 20 mg PO DAILY 30 Days Qty: 30 0RF chlorthalidone 50 mg Tablet 12.5 mg PO DAILY 30 Days Qty: 8 0RF albuterol sulfate 90 mcg/actuation aerosol powdr breath activated 1 inh inhalation Q6H 30 Days Qty: 1 0RF prednisone 20 mg tablet 40 mg PO DAILY 5 Days Qty: 10 0RF dextromethorphan-guaifenesi n [Mucinex DM] 60-1,200 mg tablet extended release 12 hr 1 tab PO Q12H 7 Days Qty: 14 0RF Referrals / Follow Up: Care Physician,No Primary [Primary Care Provider] - Chadd Gomez DO [Med Staff - Active Staff] - Within 2 Weeks (For sleep study, PFT. Possible OHS/SINA) Disposition Disposition (needs filled in before D/C Order can be placed): Home, Self Care 09/08/24 1049 Francesco Montgomery MD CC: Dr. Isma Sheikh, DO; No Primary Care Physician Signed Normal [facility] Absolute lymphocyte countOrd ered By: Isma Peterson on 09-07-2024 Lymphocytes Auto (Unsp spec) [#/Vol] 1.25 10*3/uL 0.83-4.51 [facility] Absolute neutrophil countOrd ered By: Isma Peterson on 09-07-2024 Neutrophils (Bld) [#/Vol] 10.1 10*3/uL High 2.0-7.7 [facility] Anion gap in Serum or Plasma Ordered By: Isma Peterson on 09-07-2024 Anion gap [Moles/Vol] 10 mmol/L 5-15 [facility] Automated blood erythrocyte countOrdered By: Isma Peterson on 09-07-2024 RBC (Bld) [#/Vol] 5.96 10*6/uL Normal 4.6-6.2 [facility] Comment on above: Performed By: #### L 500.4050, L501.2300, L100.0100 ####[facility] [address] [place], [place], [address] Automated blood hematocrit ( percentage)Ordered By: Isma Peterson on 09-07-2024 Hematocrit (Bld) [Volume fraction] 52.9 % Normal 40-54 [facility] Comment on above: Performed By: #### L 500.4050, L501.2300, L100.0100 ####[facility] [address] [place], [address] Automated lymphocyte count a s percentage of total leukocytesOrdered By: Isma Peterson on 09-07-2024 Lymphocytes/100 WBC Auto (Unsp spec) 10.7 % Low 19-41 [facility] BUN/creatinine ratioOrdered By: Isma Peterson on 09-07-2024 Urea nitrogen/Creatinine [Mass ratio] 18.5 mg/mg 10-20 [facility] Basophil percentageOrdered B y: Isma Peterson on 09-07-2024 Basophils/100 WBC (Bld) 0.2 % Normal 0-1 [facility] Comment on above: Performed By: #### L 500.4050, L501.2300, L100.0100 ####[facility] [address] [place], [address] Bilirubin, totalOrdered By: Isma Peterson on 09-07-2024 Bilirubin [Mass/Vol] 0.70 mg/dL Normal 0.00-1.30 [facility] Comment on above: Performed By: #### L 500.4050, L501.2300, L100.0100 ####[facility] [address] [place], [address] CBC W/Diff, Automatedon Absolute Lymph 1.25 X10 3/uL Normal 0.83-4.51 [facility] Comment on above: Performed By: #### L 500.4050, L501.2300, L100.0100 ####[facility] [address] [place], [address] Absolute Neut 10.1 X10 3/uL High 2.0-7.7 [facility] Comment on above: Performed By: #### L 500.4050, L501.2300, L100.0100 ####[facility] [address] [place], [address] IG% 0.400 Normal 0.0-0.9 [facility] Comment on above: Result Comment: IG% - Immature Granulocytes (promyelocytes, myelocytes and metamyelocytes) > 1% indicates that a LEFT SHIFT is Present. Performed By: #### L 500.4050, L501.2300, L100.0100 ####[facility] [address] [place], [address] Lymphocytes/100 WBC (Bld) 10.7 % Low 19-41 [facility] Comment on above: Performed By: #### L 500.4050, L501.2300, L100.0100 ####[facility] [address] [place], [address] Nucleated RBC (Bld) [#/Vol] 0 10*3/uL Normal 0-5 [facility] Comment on above: Performed By: #### L 500.4050, L501.2300, L100.0100 ####[facility] [address] [place], [address] RDW SD 45.1 fl High 35.1-43.9 [facility] Comment on above: Performed By: #### L 500.4050, L501.2300, L100.0100 ####[facility] [address] [place], [address] Carbon dioxide, total [Moles /volume] in Central venous bloodOrdered By: Isma Peterson on 09-07-2024 CO2 [Moles/Vol] 23.2 mmol/L Normal 21.0-32.0 [facility] Comment on above: Performed By: #### L 500.4050, L501.2300, L100.0100 ####[facility] [address] [place], [address] Chloride assayOrdered By: Ney Peterson on 09-07-2024 Chloride [Moles/Vol] 103 mmol/L Normal 98-108 [facility] Comment on above: Performed By: #### L 500.4050, L501.2300, L100.0100 ####[facility] [address] [place], [address] Comprehensive Metabolic Prof ilon 09-07-2024 ALK PHOS 174 U/L High 40-129 [facility] Comment on above: Performed By: #### L 500.4050, L501.2300, L100.0100 ####[facility] [address] [place], [address] BUN/CRE 18.5 RATIO Normal 10-20 [facility] Comment on above: Performed By: #### L 500.4050, L501.2300, L100.0100 ####[facility] [address] [place], [address] ECRCL 232.49 ml/min Normal 50-250 [facility] Comment on above: Performed By: #### L 500.4050, L501.2300, L100.0100 ####[facility] [address] [place], [address] GAP 10 Normal 5-15 [facility] Comment on above: Performed By: #### L 500.4050, L501.2300, L100.0100 ####[facility] [address] [place], [address] Potassium [Moles/Vol] 4.4 mmol/L Normal 3.3-5.1 [facility] Comment on above: Performed By: #### L 500.4050, L501.2300, L100.0100 ####[facility] [address] [place], [address] T PROT 7.8 g/dL Normal 5.9-8.4 [facility] Comment on above: Performed By: #### L 500.4050, L501.2300, L100.0100 ####[facility] [address] [place], [address] Comprehensive Metabolic Prof ilOrdered By: Isma Peterson on 09-07-2024 AST [Catalytic activity/Vol] 17 U/L Normal <=37 [facility] Comment on above: Performed By: #### L 500.4050, L501.2300, L100.0100 ####[facility] [address] [place], [address] Electrocardiogram reportOrde red By: Lizbeth Walsh on 09-07-2024 EKG study [facility] [address] [place] [address] 12 Lead EKG 09/06/24 0044 MR#: [id number] Acct: [id number] Name: AZALIA MATTHEW II Rep #:[id number] : 1970 53 From: Lizbeth de santiago MD Attending Dr: Dr. Francesco Montgomery MD Status: ADM IN Ordering Dr: Zachariah Lantigua MD Date: 09/06/24 Location: [facility] Sex: M C Admitted: 09/06/24 Test Reason : SOB Blood Pressure : */* mmHG Vent. Rate : 78 BPM Atrial Rate : 78 BPM P-R Int : 166 ms QRS Dur : 96 ms QT Int : 392 ms P-R-T Axes : 56 52 57 degrees QTcB Int : 446 ms Normal sinus rhythm Normal ECG Confirmed by Lizbeth Walsh ([id number]), science editor PATRICK MORALES ([id number]) on 09/07/2024 12:18:10 PM Referred By: Confirmed By: Lizbeth Walsh 09/07/24 1218 Date _ Lizbeth Walsh MD CC: Dr. Zachariah Lantigua MD; Dr. Francesco Montgomery MD; No Primary Care Physician ~ Signed [facility] Other Phone: Eosinophil percentageOrdered By: Isma Peterson on 09-07-2024 Eosinophils/100 WBC (Bld) 0.0 % Normal 0-5 [facility] Comment on above: Performed By: #### L 500.4050, L501.2300, L100.0100 ####[facility] [address] [place], [address] Erythrocyte distribution wid th ratioOrdered By: Isma Peterson on 09-07-2024 Erythrocyte distribution width (RBC) [Ratio] 13.9 % Normal 11.6-14.6 [facility] Comment on above: Performed By: #### L 500.4050, L501.2300, L100.0100 ####[facility] [address] [place], [address] Erythrocyte distribution wid th standard deviationOrdered By: Isma Peterson on 09-07-2024 Erythrocyte distribution width (RBC) [Ratio] 45.1 fl High 35.1-43.9 [facility] Glomerular filtration rate ( GFR) estimation/1.73 sq m using serum, plasma, or whole bOrdered By: Isma Peterson on 09-07-2024 GFR/1.73 sq M.predicted among non-blacks MDRD (S/P/Bld) [Vol rate/Area] 113 mL/min/{1.73_m2} Normal >60 [facility] Comment on above: mL/min/1.73m2 CKD-EP I Creatinine Equation (2020) Result Comment: mL/m in/1.73m2 CKD-EPI Creatinine Equation (2020) Performed By: #### L 500.4050, L501.2300, L100.0100 ####[facility] [address] [facility] [address] [place], [place], [id number] Hemoglobin measurementOrdere d By: Isma Peterson on 09-07-2024 Hemoglobin (Bld) [Mass/Vol] 17.6 g/dL High 13.0-16.5 [facility] Comment on above: Performed By: #### L 500.4050, L501.2300, L100.0100 ####[facility] [address] [place], [place], [address] Immature granulocytes/100 WB C Auto (Bld)Ordered By: Isma Peterson on 09-07-2024 Immature granulocytes/100 WBC (Bld) 0.400 % 0.0-0.9 [facility] Comment on above: IG% - Immature Granu locytes (promyelocytes, myelocytes and metamyelocytes) > 1% indicates that a LEFT SHIFT is Present. MCV (mean corpuscular volume ) determinationOrdered By: Isma Peterson on 09-07-2024 MCV (RBC) [Entitic vol] 88.8 fL Normal 80-94 [facility] Comment on above: Performed By: #### L 500.4050, L501.2300, L100.0100 ####[facility] [address] [place], [address] Mean corpuscular hemoglobin (MCH) determinationOrdered By: Isma Peterson on 09-07-2024 MCH (RBC) [Entitic mass] 29.5 pg Normal 27.0-32.0 [facility] Comment on above: Performed By: #### L 500.4050, L501.2300, L100.0100 ####[facility] [address] [place], [address] Mean corpuscular hemoglobin concentration (MCHC) determinationOrdered By: Isma Peterson on 09-07-2024 MCHC (RBC) [Mass/Vol] 33.3 g/dL Normal 32-36 [facility] Comment on above: Performed By: #### L 500.4050, L501.2300, L100.0100 ####[facility] [address] [place], [address] Mean platelet volume determi nationOrdered By: Isma Peterson on 09-07-2024 Platelet mean volume (Bld) [Entitic vol] 9.8 fL Normal 6.2-12.0 [facility] Comment on above: Performed By: #### L 500.4050, L501.2300, L100.0100 ####[facility] [address] [place], [address] Monocyte percentageOrdered B y: Isma Peterson on 09-07-2024 Monocytes/100 WBC (Bld) 3.0 % Normal 0-10 [facility] Comment on above: Performed By: #### L 500.4050, L501.2300, L100.0100 ####[facility] [address] [place], [address] Neutrophil percentageOrdered By: Isma Peterson on 09-07-2024 Neutrophils/100 WBC (Bld) 85.7 % High 47-70 [facility] Comment on above: Performed By: #### L 500.4050, L501.2300, L100.0100 ####[facility] [address] [place], [address] Nucleated red blood cell per centageOrdered By: Isma Peterson on 09-07-2024 Nucleated RBC/100 WBC (Bld) [Ratio] 0 % 0-5 [facility] Phosphoruson 09-07-2024 Phosphate [Mass/Vol] 2.8 mg/dL Normal 2.7-4.5 [facility] Comment on above: Performed By: #### L 500.4050, L501.2300, L100.0100 ####[facility] [address] [place], [address] Platelet countOrdered By: Ney Peterson on 09-07-2024 Platelets (Bld) [#/Vol] 262 10*3/uL Normal 150-450 [facility] Comment on above: Performed By: #### L 500.4050, L501.2300, L100.0100 ####[facility] [address] [place], [address] Potassium measurement (mass/ volume)Ordered By: Isma Peterson on 09-07-2024 Potassium (Unsp spec) [Mass/Vol] 4.4 mmol/L 3.3-5.1 [facility] Serum creatinine measurement (mass/volume)Ordered By: Isma Peterson on 09-07-2024 Creatinine [Mass/Vol] 0.65 mg/dL Low 0.70-1.20 [facility] Comment on above: Performed By: #### L 500.4050, L501.2300, L100.0100 ####[facility] [address] [place], [address] Serum globulin measurementOr dered By: Isma Peterson on 09-07-2024 Globulin (S) [Mass/Vol] 3.9 g/dL Normal 2.2-4.2 [facility] Comment on above: Performed By: #### L 500.4050, L501.2300, L100.0100 ####[facility] [address] [place], [address] Serum glucose measurement (m ass/volume)Ordered By: Isma Peterson on 09-07-2024 Glucose [Mass/Vol] 156 mg/dL High 70-99 [facility] Comment on above: Performed By: #### L 500.4050, L501.2300, L100.0100 ####[facility] [address] [place], [address] Serum or plasma alanine cast otransferase (ALT) measurementOrdered By: Isma Peterson on 09-07-2024 ALT [Catalytic activity/Vol] 23 U/L Normal <=46 [facility] Comment on above: Performed By: #### L 500.4050, L501.2300, L100.0100 ####[facility] [address] [place], [address] Serum or plasma albumin rosa urement (mass/volume)Ordered By: Isma Peterson on 09-07-2024 Albumin [Mass/Vol] 3.9 g/dL Normal 3.5-5.0 [facility] Comment on above: Performed By: #### L 500.4050, L501.2300, L100.0100 ####[facility] [address] [place], [address] Serum or plasma albumin/glob ulin mass ratioOrdered By: Isma Peterson on 09-07-2024 Albumin/Globulin [Mass ratio] 1.0 {ratio} Normal 0.9-2.4 [facility] Comment on above: Performed By: #### L 500.4050, L501.2300, L100.0100 ####[facility] [address] [place], [address] Serum or plasma alkaline roldan sphatase measurementOrdered By: Isma Peterson on 09-07-2024 ALP [Catalytic activity/Vol] 174 U/L High 40-129 [facility] Serum or plasma calcium rosa urement (mass/volume)Ordered By: Isma Peterson on 09-07-2024 Calcium [Mass/Vol] 9.1 mg/dL Normal 7.6-11.0 [facility] Comment on above: Performed By: #### L 500.4050, L501.2300, L100.0100 ####[facility] [address] [place], [address] Serum or plasma urea nitroge n measurement (mass/volume)Ordered By: Isma Peterson on 09-07-2024 Urea nitrogen [Mass/Vol] 12 mg/dL Normal 4-19 [facility] Comment on above: Performed By: #### L 500.4050, L501.2300, L100.0100 ####[facility] [address] [place], [address] Sodium levelOrdered By: Ethan Peterson on 09-07-2024 Sodium [Moles/Vol] 136 mmol/L Normal 133-145 [facility] Comment on above: Performed By: #### L 500.4050, L501.2300, L100.0100 ####[facility] [address] [place], [address] Total proteinOrdered By: Bryan Peterson on 09-07-2024 Protein [Mass/Vol] 7.8 g/dL 5.9-8.4 [facility] White blood cell (WBC) count Ordered By: Isma Peterson on 09-07-2024 WBC (Bld) [#/Vol] 11.7 10*3/uL High 4.4-11.0 [facility] Comment on above: Performed By: #### L 500.4050, L501.2300, L100.0100 ####[facility] [address] [place], [address] 12 Lead EKGon 09-06-2024 12 Lead EKG [facility] Cardiovascular Services [address] [place] [address] 12 Lead EKG 09/06/24 0044 MR#: [id number] Acct: [id number] Name: AZALIA MATTHEW II Rep #: [id number] : 1970 53 From: Lizbeth Walsh MD Attending Dr: Dr. Francesco Montgomery MD Status: ADM IN Ordering Dr: Zachariah Lantigua MD Date: 09/06/24 Location: [facility] Sex: M C Admitted: 09/06/24 Test Reason : SOB Blood Pressure : */* mmHG Vent. Rate : 78 BPM Atrial Rate : 78 BPM P-R Int : 166 ms QRS Dur : 96 ms QT Int : 392 ms P-R-T Axes : 56 52 57 degrees QTcB Int : 446 ms Normal sinus rhythm Normal ECG Confirmed by Lizbeth Walsh ([id number]), science editor PATRICK MORALES ([id number]) on 09/07/2024 12:18:10 PM Referred By: Confirmed By: Lizbeth Walsh 09/07/24 1218 Date Lizbeth Walsh MD CC: Dr. Zachariah Lantigua MD; Dr. Francesco Montgomery MD; No Primary Care Physician Signed Normal [facility] Absolute lymphocyte countOrd ered By: Zachariah Lantigua on 09-06-2024 Lymphocytes Auto (Unsp spec) [#/Vol] 1.67 10*3/uL 0.83-4.51 [facility] Absolute neutrophil countOrd ered By: Zachariah Lantigua on 09-06-2024 Neutrophils (Bld) [#/Vol] 8.0 10*3/uL High 2.0-7.7 [facility] Anion gap in Serum or Plasma Ordered By: Zachariah Lantigua on 09-06-2024 Anion gap [Moles/Vol] 11 mmol/L 5-15 [facility] Automated lymphocyte count a s percentage of total leukocytesOrdered By: Zachariah Lantigua on 09-06-2024 Lymphocytes/100 WBC Auto (Unsp spec) 15.8 % Low 19-41 [facility] BUN/creatinine ratioOrdered By: Zachariah Lantigua on 09-06-2024 Urea nitrogen/Creatinine [Mass ratio] 15.2 mg/mg - [facility] Basic Metabolic Profile (BMP )on 09-06-2024 BUN/CRE 15.2 RATIO Normal - [facility] Comment on above: Performed By: #### L 300.4310, L300.3900, L500.4050, L503.6620, L503.6005, L100.0100 #### [facility] [address] [place], [address] Calcium [Mass/Vol] 8.9 mg/dL Normal 7.6-11.0 [facility] Comment on above: Performed By: #### L 300.4310, L300.3900, L500.4050, L503.6620, L503.6005, L100.0100 #### [facility] [address] [place], [address] Chloride [Moles/Vol] 101 mmol/L Normal 98-108 [facility] Comment on above: Performed By: #### L 300.4310, L300.3900, L500.4050, L503.6620, L503.6005, L100.0100 #### [facility] [address] [place], [address] CO2 [Moles/Vol] 24.5 mmol/L Normal 21.0-32.0 [facility] Comment on above: Performed By: #### L 300.4310, L300.3900, L500.4050, L503.6620, L503.6005, L100.0100 #### [facility] [address] [place], [address] Creatinine [Mass/Vol] 0.75 mg/dL Normal 0.70-1.20 [facility] Comment on above: Performed By: #### L 300.4310, L300.3900, L500.4050, L503.6620, L503.6005, L100.0100 #### [facility] [address] [place], [address] ECRCL 203.83 ml/min Normal 50-250 [facility] Comment on above: Performed By: #### L 300.4310, L300.3900, L500.4050, L503.6620, L503.6005, L100.0100 #### [facility] [address] [place], [address] GAP 11 Normal 5-15 [facility] Comment on above: Performed By: #### L 300.4310, L300.3900, L500.4050, L503.6620, L503.6005, L100.0100 #### [facility] [address] [place], [address] GFR/1.73 sq M.predicted among non-blacks MDRD (S/P/Bld) [Vol rate/Area] 109 mL/min/{1.73_m2} Normal >60 [facility] Comment on above: Result Comment: mL/m in/1.73m2 CKD-EPI Creatinine Equation (2020) Performed By: #### L 300.4310, L300.3900, L500.4050, L503.6620, L503.6005, L100.0100 #### [facility] [address] [place], [address] Glucose [Mass/Vol] 113 mg/dL High 70-99 [facility] Comment on above: Performed By: #### L 300.4310, L300.3900, L500.4050, L503.6620, L503.6005, L100.0100 #### [facility] [address] [place], [address] Potassium [Moles/Vol] 4.2 mmol/L Normal 3.3-5.1 [facility] Comment on above: Result Comment: Hemo lysis present, Results??could be affected. ?? Performed By: #### L 300.4310, L300.3900, L500.4050, L503.6620, L503.6005, L100.0100 #### [facility] [address] [place], [address] Sodium [Moles/Vol] 137 mmol/L Normal 133-145 [facility] Comment on above: Performed By: #### L 300.4310, L300.3900, L500.4050, L503.6620, L503.6005, L100.0100 #### [facility] [address] [place], [address] Urea nitrogen [Mass/Vol] 11 mg/dL Normal 4-19 [facility] Comment on above: Performed By: #### L 300.4310, L300.3900, L500.4050, L503.6620, L503.6005, L100.0100 #### [facility] [address] [place], [address] Basophil percentageOrdered B y: Zachariah Lantigua on 09-06-2024 Basophils/100 WBC (Bld) 0.5 % 0-1 [facility] Bilirubin Test strip Ql (U)O rdered By: Isma Peterson on 09-06-2024 Bilirubin Ql (U) Negative Negative [facility] CBC W/Diff, Automatedon Absolute Lymph 1.67 X10 3/uL Normal 0.83-4.51 [facility] Comment on above: Performed By: #### L 300.4310, L300.3900, L500.4050, L503.6620, L503.6005, L100.0100 #### [facility] [address] [place], [address] Absolute Neut 8.0 X10 3/uL High 2.0-7.7 [facility] Comment on above: Performed By: #### L 300.4310, L300.3900, L500.4050, L503.6620, L503.6005, L100.0100 #### [facility] [address] [place], [address] Basophils/100 WBC (Bld) 0.5 % Normal 0-1 [facility] Comment on above: Performed By: #### L 300.4310, L300.3900, L500.4050, L503.6620, L503.6005, L100.0100 #### [facility] [address] [place], [address] Eosinophils/100 WBC (Bld) 1.4 % Normal 0-5 [facility] Comment on above: Performed By: #### L 300.4310, L300.3900, L500.4050, L503.6620, L503.6005, L100.0100 #### [facility] [address] [place], [address] Erythrocyte distribution width (RBC) [Ratio] 13.9 % Normal 11.6-14.6 [facility] Comment on above: Performed By: #### L 300.4310, L300.3900, L500.4050, L503.6620, L503.6005, L100.0100 #### [facility] [address] [place], [address] Hematocrit (Bld) [Volume fraction] 52.6 % Normal 40-54 [facility] Comment on above: Performed By: #### L 300.4310, L300.3900, L500.4050, L503.6620, L503.6005, L100.0100 #### [facility] [address] [place], [address] Hemoglobin (Bld) [Mass/Vol] 17.7 g/dL High 13.0-16.5 [facility] Comment on above: Performed By: #### L 300.4310, L300.3900, L500.4050, L503.6620, L503.6005, L100.0100 #### [facility] [address] [place], [address] IG% 0.300 Normal 0.0-0.9 [facility] Comment on above: Result Comment: IG% - Immature Granulocytes (promyelocytes, myelocytes and metamyelocytes) > 1% indicates that a LEFT SHIFT is Present. Performed By: #### L 300.4310, L300.3900, L500.4050, L503.6620, L503.6005, L100.0100 #### [facility] [address] [place], [address] Lymphocytes/100 WBC (Bld) 15.8 % Low 19-41 [facility] Comment on above: Performed By: #### L 300.4310, L300.3900, L500.4050, L503.6620, L503.6005, L100.0100 #### [facility] [address] [place], [address] MCH (RBC) [Entitic mass] 29.1 pg Normal 27.0-32.0 [facility] Comment on above: Performed By: #### L 300.4310, L300.3900, L500.4050, L503.6620, L503.6005, L100.0100 #### [facility] [address] [place], [address] MCHC (RBC) [Mass/Vol] 33.7 g/dL Normal 32-36 [facility] Comment on above: Performed By: #### L 300.4310, L300.3900, L500.4050, L503.6620, L503.6005, L100.0100 #### [facility] [address] [place], [address] MCV (RBC) [Entitic vol] 86.5 fL Normal 80-94 [facility] Comment on above: Performed By: #### L 300.4310, L300.3900, L500.4050, L503.6620, L503.6005, L100.0100 #### [facility] [address] [place], [address] Monocytes/100 WBC (Bld) 6.6 % Normal 0-10 [facility] Comment on above: Performed By: #### L 300.4310, L300.3900, L500.4050, L503.6620, L503.6005, L100.0100 #### [facility] [address] [place], [address] Neutrophils/100 WBC (Bld) 75.4 % High 47-70 [facility] Comment on above: Performed By: #### L 300.4310, L300.3900, L500.4050, L503.6620, L503.6005, L100.0100 #### [facility] [address] [place], [address] Nucleated RBC (Bld) [#/Vol] 0 10*3/uL Normal 0-5 [facility] Comment on above: Performed By: #### L 300.4310, L300.3900, L500.4050, L503.6620, L503.6005, L100.0100 #### [facility] [address] [place], [address] Platelet mean volume (Bld) [Entitic vol] 9.6 fL Normal 6.2-12.0 [facility] Comment on above: Performed By: #### L 300.4310, L300.3900, L500.4050, L503.6620, L503.6005, L100.0100 #### [facility] [address] [place], [address] Platelets (Bld) [#/Vol] 258 10*3/uL Normal 150-450 [facility] Comment on above: Performed By: #### L 300.4310, L300.3900, L500.4050, L503.6620, L503.6005, L100.0100 #### [facility] [address] [place], [address] RBC (Bld) [#/Vol] 6.08 10*6/uL Normal 4.6-6.2 [facility] Comment on above: Performed By: #### L 300.4310, L300.3900, L500.4050, L503.6620, L503.6005, L100.0100 #### [facility] [address] [place], [address] RDW SD 43.9 fl Normal 35.1-43.9 [facility] Comment on above: Performed By: #### L 300.4310, L300.3900, L500.4050, L503.6620, L503.6005, L100.0100 #### [facility] [address] [place], [address] WBC (Bld) [#/Vol] 10.6 10*3/uL Normal 4.4-11.0 [facility] Comment on above: Performed By: #### L 300.4310, L300.3900, L500.4050, L503.6620, L503.6005, L100.0100 #### [facility] [address] [place], [address] CTA Chest W/WO Contraston CTA Chest W/WO Contrast [facility] Imaging Services [address] [place] [address] CTA Chest W/WO Contrast MR#: [id number] Acct: [id number] Name: AZALIA MATTHEW TARI Rep #: [id number] : 1970 M 53 From: Jas Steve MD PCP: Care Physician,No Primary Status: ADM IN Study: CTA Chest W/WO Contrast Date of Exam: 09/06/24 Exam# [id number] Ordering Dr: Isma Sheikh DO PROCEDURE: CTA CHEST W/WO CONTRAST 09/06/2024 REASON FOR EXAM: PNA SUSPECTED ON CXR PLUS ELEVATED D-DIMER. ? PE. TECHNIQUE: CTA imaging of the chest with intravenous contrast. Multiplanar and multisequence images were obtained. Coronal and sagittal MIP images CONTRAST: 100 cc Isovue 370 IV One or more dose reduction techniques were used (e.g., Automated exposure control, adjustment of the mA and/or kV according to patient size, use of iterative reconstruction technique). RADIATION DOSE SUMMARY: CTDlvol: 41.45 mGy DLP: 844.49 mGycm FINDINGS: Pulmonary venous greater than pulmonary arterial contrast density limits the evaluation for pulmonary embolism. No large central or hilar pulmonary embolism identified. The segmental and subsegmental branches are not well evaluated without a definite filling defect identified. Thoracic aorta appears within limits. No pericardial or pleural effusion. Status post cholecystectomy. A smooth symmetric narrowing of the midtrachea without obvious mass. The thyroid appears within limits. The central airways are patent. Bilateral perihilar ground-glass opacities appears greatest right upper lobe may be inflammatory or infectious, possible viral etiology not excluded. No focal consolidation. The visualized osseous structures appear within limits. CT/CTA Chest W/WO Contrast IMPRESSION: Pulmonary venous greater than pulmonary arterial contrast density limits the evaluation for pulmonary embolism. No large central or hilar pulmonary embolism identified. The segmental and subsegmental branches are not well evaluated without a definite filling defect identified. Bilateral perihilar ground-glass opacities appears greatest right upper lobe may be inflammatory or infectious, possible viral etiology not excluded. No focal consolidation. Reading Location: [id number] CC: Dr. Isma Sheikh DO; No Primary Care Physician Silk Screen Printer Helper: Signed Normal [facility] Carbon dioxide, total [Moles /volume] in Central venous bloodOrdered By: Zachariah Lantigua on 09-06-2024 CO2 [Moles/Vol] 24.5 mmol/L 21.0-32.0 [facility] Chest PA and Lateralon 09-06 Chest PA and Lateral [facility] Imaging Services [address] [place], [place] [address] Chest PA and Lateral MR#: [id number] Acct: [id number] Name: AZAILA MATTHEW II Rep #: [id number] : 1970 M 53 From: Jas Steve MD PCP: Care Physician,No Primary Status: REG ER Study: Chest PA and Lateral Date of Exam: 09/06/24 Exam# [id number] Ordering Dr: Zachraiah Lantigua MD PROCEDURE: CHEST PA AND LATERAL 09/06/2024 REASON FOR EXAM: COUGH/SOB TECHNIQUE: Frontal and lateral views of the chest. COMPARISON: 06/13/2024 FINDINGS: Bilateral patchy increased appearance of the perihilar markings with a lower zone predominance may represent inflammatory/infectious process with possibility of edema considered less likely, clinically correlate. No pleural effusion. No focal consolidation. The cardiac and mediastinal contours appear within limits. There is a continued appearance of narrowing of the midtrachea around the level of the clavicular heads which has a similar appearance to the prior studies and may represent possibility of goiter or other process, clinically correlate. The visualized osseous structures appear within limits. RAD/Chest PA and Lateral IMPRESSION: Bilateral patchy increased appearance of the perihilar markings with a lower zone predominance may represent inflammatory/infectious process with possibility of edema considered less likely, clinically correlate. No pleural effusion. No focal consolidation. There is a continued appearance of narrowing of the midtrachea around the level of the clavicular heads which has a similar appearance to the prior studies and may represent possibility of goiter or other process, clinically correlate. Reading Location: [facility] CC: Dr. Zachariah Lantigua MD; No Primary Care Physician Silk Screen Printer Helper: Signed Normal [facility] Chloride assayOrdered By: Jovita Lantigua on 09-06-2024 Chloride [Moles/Vol] 101 mmol/L 98-108 [facility] D-Dimer Quantitative (DVT/PE )on 09-06-2024 D-DIMER QUANT 0.53 FEU/ug/m Invalid Interpretation Code 0.27-0.49 [facility] Comment on above: Result Comment: D-Di jc ELEVATED (>0.49): Additional studies and clinical assessments are indicated to conclude diagnosis of: Deep Vein Thrombosis (DVT) or Pulmonary Embolism (PE) CRITICAL VALUE CALLED TO LSPARR 09/06/24 0254 Bunny Castrejon. RESULTS READ BACK BY SAME. Performed By: #### L 300.4310, L300.3900, L500.4050, L503.6620, L503.6005, L100.0100 #### [facility] [address] [facility] [place], [address] Emergency Department Summary on 09-06-2024 Emergency Department Summary [facility] Medical Records Department [address] [place] [address] Emergency Department Summary 09/06/24 MR#: [id number] Acct: [id number] Name: AZALIA MATTHEW II Rep #: [id number] : 1970 53 From: Zachariah Lantigua MD PCP: Care Physician,No Primary Status:REG ER Location: ED HPI History of Present Illness Chief Complaint: Shortness of Breath Informant: patient and friend Narrative Narrative: 53-year-old male with a history of COPD but taking no maintenance medications or inhalers/nebulizers states he has been having trouble breathing for a while but worse in the past 3 days with increased cough and sputum production, color changed to green, no blood, chills, and some pleuritic discomfort in his left lung at times but not constantly. No other chest pain. Feeling malaised. No new GI symptoms or abdominal pain, palpitations, syncope, leg edema changes. 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 Smoking Status: Current every day smoker tobacco type: cigarettes Tobacco: How many years used: 36 alcohol intake: never substance use type: does not use ROS ROS ED Constitutional Constitutional ED: Reports chills and malaise; Denies fever(s) Eyes Eyes: Denies change in vision or diplopia ENT ENT ED: Denies rhinorrhea or sore throat Cardiovascular Cardiovascular: Reports chest pain and other Details: Chronic leg edema without changes ; Denies palpitations or syncope Respiratory/Chest Respiratory/Chest: Reports cough, dyspnea, dyspnea on exertion and sputum Gastrointestinal Gastrointestinal: Denies abdominal pain, diarrhea, nausea or vomiting Genitourinary Genitourinary ED: Denies dysuria or hematuria Musculoskeletal Musculoskeletal: Denies back pain or neck pain Integumentary Denies abscess or rash Neurologic Neurologic: Denies headache(s), paresthesias or weakness Psychiatric Psychiatric: Denies anxiety or suicidal thoughts EXAM Physical Exam Const Vital Signs: 09/06/24 00:23 09/06/24 00:47 09/06/24 00:53 Temperature 98 F Temperature Source Oral Pulse Rate 86 88 Respiratory Rate 26 H 20 H Respiratory Effort Blood Pressure Blood Pressure Mean Pulse Ox 92 Oxygen Delivery Method Room Air Room Air Oxygen Flow Rate (L/min) Fraction of Inspired Oxygen (FIO2) 09/06/24 00:59 09/06/24 00:59 09/06/24 01:10 Temperature Temperature Source Pulse Rate Respiratory Rate Respiratory Effort Normal Blood Pressure 141/62 H Blood Pressure Mean 88 Pulse Ox Oxygen Delivery Method Nasal Cannula Oxygen Flow Rate (L/min) 3 Fraction of Inspired Oxygen (FIO2) 09/06/24 01:19 09/06/24 01:27 09/06/24 02:00 Temperature 97.9 F 98.2 F Temperature Source Oral Temporal Pulse Rate 81 78 Respiratory Rate 25 H 16 Respiratory Effort Blood Pressure 152/91 H 98/51 L Blood Pressure Mean 111 66 Pulse Ox 91 94 Oxygen Delivery Method Nasal Cannula Nasal Cannula Nasal Cannula Oxygen Flow Rate (L/min) 3 4 Fraction of Inspired Oxygen (FIO2) 3 09/06/24 02:23 09/06/24 03:00 09/06/24 04:00 Temperature 98.2 F 98.7 F Temperature Source Oral Oral Pulse Rate 77 75 76 Respiratory Rate 20 H 19 H Respiratory Effort Blood Pressure 139/75 H 150/82 H Blood Pressure Mean 96 104 Pulse Ox 96 93 Oxygen Delivery Method Nasal Cannula Nasal Cannula Oxygen Flow Rate (L/min) 4 4 Fraction of Inspired Oxygen (FIO2) Positive well nourished, well developed and obese General Appearance ED: well developed and NAD Nutritional Appearance: obese HEENT Reports moist mucous membranes normocephalic and atraumatic Eyes PERRL and EOMs intact bilaterally Neck full ROM, no lymphadenopathy, supple and no meningeal signs Resp clear to auscultation bilaterally Resp Narrative: A little tachypneic no distress, conversive in full sentences Cardio regular rate and regular rhythm Cardio Narrative: Faint heart sounds, exam limited by obesity GI non-tender and (more content not included)... Normal [facility] Eosinophil percentageOrdered By: Zachariah Lantigua on 09-06-2024 Eosinophils/100 WBC (Bld) 1.4 % 0-5 [facility] Erythrocyte distribution wid th ratioOrdered By: Zachariah Lantigua on 09-06-2024 Erythrocyte distribution width (RBC) [Ratio] 13.9 % 11.6-14.6 [facility] Erythrocyte distribution wid th standard deviationOrdered By: Subiaco Grzegorz on 09-06-2024 Erythrocyte distribution width (RBC) [Ratio] 43.9 fl 35.1-43.9 [facility] Glomerular filtration rate ( GFR) estimation/1.73 sq m using serum, plasma, or whole bOrdered By: Zachariah Lantigua on 09-06-2024 GFR/1.73 sq M.predicted among non-blacks MDRD (S/P/Bld) [Vol rate/Area] 109 mL/min/{1.73_m2} >60 [facility] Comment on above: mL/min/1.73m2 CKD-EP I Creatinine Equation (2020) H AND P Exam - [facility] 09-06-2024 H&P Exam - Hospitalist [facility] Medical Records Department [address] [place] [address] H P Exam - Hospitalist 09/06/24 0409 MR#: [id number] Acct: [id number] Name: AZALIA MATTHEW II Rep #: [id number] : 1970 53 From: Isma Sheikh DO PCP: Care Physician,No Primary Status:ADM IN Location: [facility] [id number] HPI - General General Date of Admission: 09/06/24 Date of Service: 09/06/24 Chief Complaint: SOB. HPI Narrative AZALIA MATTHEW, is a 53 M with a past medical history of tobacco abuse 1 ppd x 36 years; with subsequent COPD with 'blue-bloater' phenotype, super-morbid obesity; with BMI of 58.7 this admission, SINA, history of polycythemia; attributed to chronic hypoxia, chronic venous stasis with history of bilateral foot ulcers and LE cellulitis with admission here from December 22, 2023 to December 25, 2023 with subsequent discharge on oral doxycycline and with follow up treatment by [facility] here on January 09, 2024 with noted improvement, history of appendectomy, history of cholecystectomy, history of homelessness and relatively recent admission here from June 13, 2024 to June 14, 2024 for treatment of viral URI with hypoxia in the setting of obesity hypoventilation syndrome and SINA complicated by ongoing tobacco abuse with COPD that was not flaring at that time who re-presents to [facility] complaining of shortness of breath. Mr. Matthew reports his symptoms began 3 days prior to admission with increasing cough productive of greenish sputum and dyspnea on exertion that progressed to shortness of breath at rest. He admits to taking no maintenance medications or inhalers/nebulizers. He states his symptoms are similar to his previous COPD exacerbations with malaise and intermittent pleuritic discomfort primarily in his Left lung that is made worse with cough. He admits to chills and pleuritic chest pain with increasing wheezing. He denies associated fever, visual changes, runny nose, sore throat, palpitations, heart racing, syncope, near syncope, abdominal pain, nausea, vomiting, diarrhea, back pain, headache or rash. In the ER he was noted to have a CXR that revealed bilateral patchy increased appearance of the perihilar markings with a lower zone predominance that may represent inflammatory/infectious process with possibility of edema considered less likely and clinical correlation recommended with no pleural effusion or focal consolidation but with a continued appearance of narrowing of the mid-trachea around the level of the clavicular heads which is a similar appearance to prior studies and may represent possibility of goiter or other process with clinical correlation recommended. He was then diagnosed with suspected Pneumonia complicated by clinical evidence of AE COPD with Acute Respiratory Insufficiency compounded by mildly elevated D- dimer 0.53 present on admission and he was then admitted to the general medical floor for ongoing care for status expected to extend beyond 2 midnights. [facility] Medical History (Updated 09/06/24 @ 05:[address] 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 Eyes: Patient denies changes in vision or discharge from eyes. ENT: Patient denies runny nose, sore throat or ear pain. Resp: Patient admits to dyspnea on exertion the progressive shortness of breath at rest with wheezing and cough productive of greenish sputum as per HPI. CV: Patient admits to pleuritic chest pain mainly over his left lower rib cage with chronic lower extremity edema. He denies palpitations or heart racing. GI: Patient denies abdominal pain, nausea, vomiting, diarrhea or constipation. : Patient denies dysuria, hematuria urinary frequency. MSK: Patient denies arthralgias or myalgias. Skin: Patient denies rash, abscess, wounds or jaundice. Psych: Patient denies symptoms of uncontrolled depression or anxie (more content not included)... Normal [facility] Hematocrit Auto (Bld) [Volum e fraction]Ordered By: Zachariah Lantigua on 09-06-2024 Hematocrit (Bld) [Volume fraction] 52.6 % 40-54 [facility] Hemoglobin measurementOrdere d By: Zachariah Lantigua on 09-06-2024 Hemoglobin (Bld) [Mass/Vol] 17.7 g/dL High 13.0-16.5 [facility] Immature granulocytes/100 WB C Auto (Bld)Ordered By: Zachariah Lantigua on 09-06-2024 Immature granulocytes/100 WBC (Bld) 0.300 % 0.0-0.9 [facility] Comment on above: IG% - Immature Granu locytes (promyelocytes, myelocytes and metamyelocytes) > 1% indicates that a LEFT SHIFT is Present. Influenza virus A and B and SARS-CoV-2 (COVID-19) and Respiratory syncytial virus RNAOrdered By: Zachariah Lantigua on 09-06-2024 SARS-CoV-2 (COVID-19) RNA BANDAR+probe Ql (Unsp spec) [facility] Ketones Test strip Ql (U)Ord ered By: Isma Peterson on 09-06-2024 Ketones Ql (U) Negative Negative [facility] L499.0042on 09-06-2024 Trop T High Sen 9 ng/L Normal <=22 [facility] Comment on above: Performed By: #### L 300.4310, L300.3900, L500.4050, L503.6620, L503.6005, L100.0100 #### [facility] [address] [place], [place], [address] L499.0043on 09-06-2024 Trop T High Sen Normal <=22 [facility] Comment on above: Result Comment: Canc elled via OM: no longer needed Performed By: #### L 300.4310, L300.3900, L500.4050, L503.6620, L503.6005, L100.0100 #### [facility] [address] [place], [address] L501.4021on 09-06-2024 Trop T High Sen 10 ng/L Normal <=22 [facility] Comment on above: Performed By: #### L 300.4310, L300.3900, L500.4050, L503.6620, L503.6005, L100.0100 #### [facility] [address] [place], [address] L503.7505on 09-06-2024 Natriuretic peptide B (Bld) [Mass/Vol] 306 pg/mL Normal <=900 [facility] Comment on above: Result Comment: Hear t Failure Unlikely: < 300 pg/mL Heart Failure Likely < 50 Years: > 450 pg/mL 50-75 Years: > 900 pg/mL >75 Years: > 1800 pg/mL Performed By: #### L 300.4310, L300.3900, L500.4050, L503.6620, L503.6005, L100.0100 #### [facility] [address] [place], [address] M100.678on 09-06-2024 M100.678 SARS-CoV-2 (COVID 19 ) Negative INFLUENZA A Negative INFLUENZA B Negative RSV PCR Negative Normal [facility] Comment on above: Performed By: #### M 100.678 ####[facility] [address] [place], [address] MCV (mean corpuscular volume ) determinationOrdered By: Zachariah Lantigua on 09-06-2024 MCV (RBC) [Entitic vol] 86.5 fL 80-94 [facility] Magnesiumon 09-06-2024 Magnesium [Mass/Vol] 2.1 mg/dL Normal 1.5-2.2 [facility] Comment on above: Performed By: #### L 501.5200, L501.9520 ####[facility] [address] [place], [address] Magnesium measurement (mass/ volume)Ordered By: Isma Peterson on 09-06-2024 Magnesium (Unsp spec) [Mass/Vol] 2.1 mg/dL 1.5-2.2 [facility] Mean corpuscular hemoglobin (MCH) determinationOrdered By: Zachariah Lantigua on 09-06-2024 MCH (RBC) [Entitic mass] 29.1 pg 27.0-32.0 [facility] Mean corpuscular hemoglobin concentration (MCHC) determinationOrdered By: Zachariah Lantigua on 09-06-2024 MCHC (RBC) [Mass/Vol] 33.7 g/dL 32-36 [facility] Mean platelet volume determi nationOrdered By: Zachariah Lantigua on 09-06-2024 Platelet mean volume (Bld) [Entitic vol] 9.6 fL 6.2-12.0 [facility] Microscopic analysis of urin e for red blood cells (RBC)Ordered By: Isma Peterson on 09-06-2024 Microscopic analysis of urine for red blood cells (RBC) 0-5 SEEN /hpf 0-5 [facility] Monocyte percentageOrdered B y: Zachariah Lantigua on 09-06-2024 Monocytes/100 WBC (Bld) 6.6 % 0-10 [facility] Mucus LM Ql (Urine sed)Order ed By: Isma Peterson on 09-06-2024 Mucus Ql (Urine sed) 0 SEEN /hpf [facility] Natriuretic peptide.B prohor diana N-Terminal [Mass/volume] in Serum or PlasmaOrdered By: Zachariah Lantigua on 09-06-2024 Natriuretic peptide.B prohormone N-Terminal [Mass/Vol] 306 pg/mL <900 [facility] Comment on above: Heart Failure Unlike ly: < 300 pg/mLHeart Failure Likely< 50 Years: > 450 pg/mL50-75 Years: > 900 pg/mL>75 Years: > 1800 pg/mL Neutrophil percentageOrdered By: Zachariah Lantigua on 09-06-2024 Neutrophils/100 WBC (Bld) 75.4 % High 47-70 [facility] Nitrite Test strip Ql (U)Ord ered By: Isma Peterson on 09-06-2024 Nitrite Ql (U) Negative Negative [facility] Nucleated red blood cell per centageOrdered By: Zachariah Lantigua on 09-06-2024 Nucleated RBC/100 WBC (Bld) [Ratio] 0 % 0-5 [facility] Platelet countOrdered By: Jovita Lantigua on 09-06-2024 Platelets (Bld) [#/Vol] 258 10*3/uL 150-450 [facility] Potassium measurement (mass/ volume)Ordered By: Zachariah Lantigua on 09-06-2024 Potassium (Unsp spec) [Mass/Vol] 4.2 mmol/L 3.3-5.1 [facility] Comment on above: Hemolysis present, R esults could be affected. Protein Test strip Ql (U)Ord ered By: Isma Peterson on 09-06-2024 Protein Ql (U) 30 mg/dl High Negative [facility] RBC Auto (Bld) [#/Vol]Ordere d By: Zachariah Lantigua on 09-06-2024 RBC (Bld) [#/Vol] 6.08 10*6/uL 4.6-6.2 [facility] RESPIRATORY PANEL MOLECULARo n 09-06-2024 RP PANEL ADENOVIRUS Not Detected INFLUENZA A Not Detected INFLUENZA A (SUBTYPE H1) Not Detected INFLUENZA A (SUBTYPE H3) Not Detected INFLUENZA B Not Detected HUMAN METAPHNEUMO Not Detected PARAINFLUENZA 1 Not Detected PARAINFLUENZA 2 Not Detected PARAINFLUENZA 3 Not Detected PARAINFLUENZA 4 Not Detected RHINOVIRUS Not Detected RSV A Not Detected RSV B Not Detected Normal [facility] Comment on above: Performed By: #### L 300.4310, L300.3900, L500.4050, L503.6620, L503.6005, L100.0100 #### [facility] [address] [place], [address] Respiratory pathogens detect ion panel by molecular detection methodOrdered By: Isma Peterson on 09-06-2024 Respiratory pathogens DNA and RNA panel BANDAR+probe (Resp) [facility] Serum creatinine measurement (mass/volume)Ordered By: Zachariah Lantigua on 09-06-2024 Creatinine [Mass/Vol] 0.75 mg/dL 0.70-1.20 [facility] Serum glucose measurement (m ass/volume)Ordered By: Zachariah Lantigua on 09-06-2024 Glucose [Mass/Vol] 113 mg/dL High 70-99 [facility] Serum or plasma calcium rosa urement (mass/volume)Ordered By: Zachariah Lantigua on 09-06-2024 Calcium [Mass/Vol] 8.9 mg/dL 7.6-11.0 [facility] Serum or plasma urea nitroge n measurement (mass/volume)Ordered By: Zachariha Lantigua on 09-06-2024 Urea nitrogen [Mass/Vol] 11 mg/dL 4-19 [facility] Sodium levelOrdered By: Clinton Lantigua on 09-06-2024 Sodium [Moles/Vol] 137 mmol/L 133-145 [facility] Squamous epithelial cells de tection in urine sediment by light microscopyOrdered By: Isma Peterson on 09-06-2024 Epithelial cells.squamous LM Ql (Urine sed) 0-5 SEEN /hpf 0-5 [facility] TSH DL <= 0.005 mIU/L QnOrde red By: Isma Peterson on 09-06-2024 TSH Qn 3.070 uIU/mL 0.300-4.20 0 [facility] Thyroidon 09-06-2024 Thyroid [facility] Imaging Services [address] [place] [address] Thyroid MR#: [id number] Acct: [id number] Name: AZALIA MATTHEW II Rep #: [id number] : 1970 M 53 From: Ferny Munoz MD PCP: Care Physician,No Primary Status: ADM IN Study: Thyroid Date of Exam: 09/06/24 Exam# [id number] Ordering Dr: Isma Sheikh DO PROCEDURE: ULTRASOUND THYROID N/A REASON FOR EXAM: TRACHEAL STENOSIS ON CT. ? GOITER/THYROID MASS TECHNIQUE: Real-time grayscale and color flow imaging was performed along with routine image documentation. COMPARISON: NO RELEVANT PRIOR. FINDINGS: Right thyroid lobe size: 5.1 x 2.1 x 1.6 cm Left thyroid lobe size: 4.9 x 2.0 x 1.6 cm Isthmus: 0.4 cm Background parenchymal echotexture is heterogeneous. Nodules: No nodules are identified. US/Thyroid IMPRESSION: Normal thyroid gland size. No suspicious nodules are demonstrated. No follow-up warranted at this time. Reading Location: [facility] CC: Dr. Isma Sheikh, DO; No Primary Care Physician Silk Screen Printer Helper: Signed Normal [facility] Thyroid Stim Hormone (TSH)on 09-06-2024 TSH 3.070 uIU/mL Normal 0.300-4.20 0 [facility] Comment on above: Performed By: #### L 501.5200, L501.9520 ####[facility] [address] [place], [place], [id number] Troponin T.cardiac [Mass/vol ume] in Serum or Plasma by High sensitivity methodOrdered By: Zachariah Lantigua on 09-06-2024 Troponin T.cardiac High sensitivity method [Mass/Vol] 9 ng/L <22 [facility] Troponin T.cardiac High sensitivity method [Mass/Vol] 10 ng/L <22 [facility] Urinalysis, Completeon 09-06 EPI,SQUAMOUS 0-5 SEEN Normal 0-5 [facility] Comment on above: Order Comment: CLEAN CATCH Performed By: #### L 300.4310, L300.3900, L500.4050, L503.6620, L503.6005, L100.0100 #### [facility] [address] [place], [place], [id number] ([phone]) RBC 0-5 SEEN Normal 0-5 [facility] Comment on above: Order Comment: CLEAN CATCH Performed By: #### L 300.4310, L300.3900, L500.4050, L503.6620, L503.6005, L100.0100 #### [facility] [address] [place], [address] WBC 0-5 SEEN Normal 0-5 [facility] Comment on above: Order Comment: CLEAN CATCH Performed By: #### L 300.4310, L300.3900, L500.4050, L503.6620, L503.6005, L100.0100 #### [facility] [address] [place], [address] BACTERIA 0 SEEN Normal None Seen [facility] Comment on above: Order Comment: CLEAN CATCH Performed By: #### L 300.4310, L300.3900, L500.4050, L503.6620, L503.6005, L100.0100 #### [facility] [address] [place], [address] Mucus Ql (Urine sed) 0 SEEN Normal [facility] Comment on above: Order Comment: CLEAN CATCH Performed By: #### L 300.4310, L300.3900, L500.4050, L503.6620, L503.6005, L100.0100 #### [facility] [address] [place], [address] Urine clarityOrdered By: Bryan Peterson on 09-06-2024 Clarity (U) Clear Clear [facility] Urine color determinationOrd ered By: Isma Peterson on 09-06-2024 Color (U) Yellow Yellow [facility] Urine glucose detectionOrder ed By: Isma Peterson on 09-06-2024 Glucose Ql (U) Normal mg/dl Normal [facility] Urine leukocyte esterase det ection by dipstickOrdered By: Isma Peterson on 09-06-2024 Leukocyte esterase Test strip Ql (U) Negative Negative [facility] Urine pHOrdered By: Isma arthur on 09-06-2024 pH (U) 5.0 [pH] 5.0 - 8.0 [facility] Urine sediment bacteria coun t by microscopy (number/high power field)Ordered By: Isma Peterson on 09-06-2024 Bacteria LM.HPF (Urine sed) [#/Area] 0 /[HPF] None Seen [facility] Urine specific gravity measu rementOrdered By: Isma Peterson on 09-06-2024 Specific gravity (U) [Rel density] 1.010 1.002-1.03 0 [facility] Urine urobilinogen measureme ntOrdered By: Isma Peterson on 09-06-2024 Urobilinogen Ql (U) Normal mg/dl Normal [facility] Venous Duplex US - Sammy Extre [facility] 09-06-2024 Venous Duplex US - Sammy Extrem [facility] [address] [place] [address] Venous Duplex US - Sammy Extrem 09/06/24 0831 MR#: [id number] Acct: [id number] Name: AZALIA MATTHEW II Rep #: [id number] : 1970 53 From: Ferny Gustafson MD Attending Dr: Dr. Francesco Montgomery MD Status: ADM IN Ordering Dr: Isma Sheikh DO Date: 09/06/24 Location: [facility] Sex: M C Admitted: 09/06/24 Reason For Study Reason For Study: Elevated D-dimer RIGHT LEFT GSV is normal. GSV is normal. CFV is compressible, spontaneous, phasic, competent CFV is compressible, spontaneous, phasic, competent, and demonstrates normal augmentation. and demonstrates normal augmentation. FV is compressible, spontaneous, phasic, competent FV is compressible, spontaneous, phasic, competent and demonstrates normal augmentation. and demonstrates normal augmentation. POP V is compressible, spontaneous, phasic, competent POP V is compressible, spontaneous, phasic, competent and demonstrates normal augmentation. and demonstrates normal augmentation. T/P Trunk is compressible. T/P Trunk is compressible. PTV is compressible. PTV is compressible. RT PerV is compressible. LT PerV is compressible. Procedure This is a venous duplex using B-mode, color flow and spectral Doppler. Exam performed in department. A preliminary report was called and/or faxed to [facility]. VL/Venous Duplex US - Sammy Extrem Interpretation Summary Deep veins of the bilateral lower extremities are patent and compressible segmentally. There is no evidence of bilateral lower extremity deep vein thrombosis. The bilateral great saphenous veins appear patent and compressible segmentally. Ordering Physician: Isma Sheikh Performed By: Fabby Hilliard RVT 09/06/24 1107 Date Ferny Gustafson MD CC: Dr. Isma Sheikh DO; Dr. Francesco Montgomery MD; No Primary Care Physician Date Dictated: 09/06/24830 Date Transcribed: 09/06/241106 [employer]k Screen Printer Helper: Signed Normal [facility] Venous duplex ultrasound rep ortOrdered By: Ferny Gustafson on 09-06-2024 US Vein [facility] [address] [facility] [facility] [address] Venous Duplex US - Sammy Extrem 09/06/24830 MR#: [id number] Acct: [id number] Name: AZALIA MATTHEW II Rep #:[id number] : 1970 53 From: Ferny Hawkins Attending Dr: Dr. Francesco Montgomery MD Status: ADM IN Ordering Dr: Isma Sheikh DO Date: 09/06/24 Location: [facility] Sex: M C Admitted: 09/06/24 Reason For Study Reason For Study: Elevated D-dimer RIGHT LEFT GSV is normal. GSV is normal. CFV is compressible, spontaneous, phasic, competent CFV is compressible, spontaneous, phasic, competent, and demonstrates normal augmentation. and demonstrates normal augmentation. FV is compressible, spontaneous, phasic, competent FV is compressible, spontaneous, phasic, competent and demonstrates normal augmentation. and demonstrates normal augmentation. POP V is compressible, spontaneous, phasic, competent POP V is compressible, spontaneous, phasic, competent and demonstrates normal augmentation. and demonstrates normal augmentation. T/P Trunk is compressible. T/P Trunk is compressible. PTV is compressible. PTV is compressible. RT PerV is compressible. LT PerV is compressible. Procedure This is a venous duplex using B-mode, color flow and spectral Doppler. Exam performed in department. A preliminary report was called and/or faxed to [facility]. VL/Venous Duplex US - Sammy Extrem Interpretation Summary Deep veins of the bilateral lower extremities are patent and compressible segmentally. There is no evidence of bilateral lower extremity deep vein thrombosis. The bilateral great saphenous veins appearpatent and compressible segmentally. Ordering Physician: Isma Sheikh Performed By: Fabby Hilliard, FABRICE 09/06/24 1107 Date _ Ferny Gustafson MD CC: Dr. Isma Sheikh DO; Dr. 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: Signed [facility] Work Phone: White blood cell (WBC) count Ordered By: Zachariah Lantigua on 09-06-2024 WBC (Bld) [#/Vol] 10.6 10*3/uL 4.4-11.0 [facility] White blood cell countOrdere d By: Isma Peterson on 09-06-2024 White blood cell count 0-5 SEEN /hpf 0-5 [facility] Absolute lymphocyte countOrd ered By: Isma Peterson on 06-14-2024 Lymphocytes Auto (Unsp spec) [#/Vol] 1.98 10*3/uL 0.83-4.51 [facility] Absolute neutrophil countOrd ered By: Isma Peterson on 06-14-2024 Neutrophils (Bld) [#/Vol] 5.2 10*3/uL 2.0-7.7 [facility] Albumin to globulin ratioOrd ered By: Isma Peterson on 06-14-2024 Albumin/Globulin [Mass ratio] 0.8 {ratio} Low 0.9-2.4 [facility] Automated lymphocyte count a s percentage of total leukocytesOrdered By: Isma Peterson on 06-14-2024 Lymphocytes/100 WBC Auto (Unsp spec) 24.4 % 19- [facility] Basophil percentageOrdered B y: Isma Peterson on 06-14-2024 Basophils/100 WBC (Bld) 0.6 % 0-1 [facility] Bilirubin, totalOrdered By: Isma Peterson on 06-14-2024 Bilirubin [Mass/Vol] 0.60 mg/dL 0.20-1.00 [facility] Comment on above: For patients on eltr ombopag therapy, use of Dimension [place] TBIL is not recommended. Blood urea nitrogen (BUN)/cr eatinine ratioOrdered By: Isma Peterson on 06-14-2024 Urea nitrogen/Creatinine [Mass ratio] 11.1 mg/mg 10-20 [facility] CBC W/Diff, Automatedon 06-02 Absolute Lymph 1.98 X10 3/uL Normal 0.83-4.51 [facility] Comment on above: Performed By: #### L 300.4310, L300.3900, L500.4050, L503.6620, L503.6005, L100.0100 #### [facility] [address] [place], [address] Absolute Neut 5.2 X10 3/uL Normal 2.0-7.7 [facility] Comment on above: Performed By: #### L 300.4310, L300.3900, L500.4050, L503.6620, L503.6005, L100.0100 #### [facility] [address] [place], [address] Basophils/100 WBC (Bld) 0.6 % Normal 0-1 [facility] Comment on above: Performed By: #### L 300.4310, L300.3900, L500.4050, L503.6620, L503.6005, L100.0100 #### [facility] [address] [place], [address] Eosinophils/100 WBC (Bld) 2.6 % Normal 0-5 [facility] Comment on above: Performed By: #### L 300.4310, L300.3900, L500.4050, L503.6620, L503.6005, L100.0100 #### [facility] [address] [place], [address] Erythrocyte distribution width (RBC) [Ratio] 15.0 % High 11.6-14.6 [facility] Comment on above: Performed By: #### L 300.4310, L300.3900, L500.4050, L503.6620, L503.6005, L100.0100 #### [facility] [address] [place], [address] Hematocrit (Bld) [Volume fraction] 46.2 % Normal 40-54 [facility] Comment on above: Performed By: #### L 300.4310, L300.3900, L500.4050, L503.6620, L503.6005, L100.0100 #### [facility] [address] [place], [address] Hemoglobin (Bld) [Mass/Vol] 14.6 g/dL Normal 13.0-16.5 [facility] Comment on above: Performed By: #### L 300.4310, L300.3900, L500.4050, L503.6620, L503.6005, L100.0100 #### [facility] [address] [place], [address] IG% 0.200 Normal 0.0-0.9 [facility] Comment on above: Result Comment: IG% - Immature Granulocytes (promyelocytes, myelocytes and metamyelocytes) > 1% indicates that a LEFT SHIFT is Present. Performed By: #### L 300.4310, L300.3900, L500.4050, L503.6620, L503.6005, L100.0100 #### [facility] [address] [place], [address] Lymphocytes/100 WBC (Bld) 24.4 % Normal 19-41 [facility] Comment on above: Performed By: #### L 300.4310, L300.3900, L500.4050, L503.6620, L503.6005, L100.0100 #### [facility] [address] [place], [address] MCH (RBC) [Entitic mass] 29.0 pg Normal 27.0-32.0 [facility] Comment on above: Performed By: #### L 300.4310, L300.3900, L500.4050, L503.6620, L503.6005, L100.0100 #### [facility] [address] [place], [address] MCHC (RBC) [Mass/Vol] 31.6 g/dL Low 32-36 [facility] Comment on above: Performed By: #### L 300.4310, L300.3900, L500.4050, L503.6620, L503.6005, L100.0100 #### [facility] [address] [place], [address] MCV (RBC) [Entitic vol] 91.7 fL Normal 80-94 [facility] Comment on above: Performed By: #### L 300.4310, L300.3900, L500.4050, L503.6620, L503.6005, L100.0100 #### [facility] [address] [place], [address] Monocytes/100 WBC (Bld) 8.1 % Normal 0-10 [facility] Comment on above: Performed By: #### L 300.4310, L300.3900, L500.4050, L503.6620, L503.6005, L100.0100 #### [facility] [address] [place], [address] Neutrophils/100 WBC (Bld) 64.1 % Normal 47-70 [facility] Comment on above: Performed By: #### L 300.4310, L300.3900, L500.4050, L503.6620, L503.6005, L100.0100 #### [facility] [address] [place], [address] Nucleated RBC (Bld) [#/Vol] 0 10*3/uL Normal 0-5 [facility] Comment on above: Performed By: #### L 300.4310, L300.3900, L500.4050, L503.6620, L503.6005, L100.0100 #### [facility] [address] [place], [address] Platelet mean volume (Bld) [Entitic vol] 10.1 fL Normal 6.2-12.0 [facility] Comment on above: Performed By: #### L 300.4310, L300.3900, L500.4050, L503.6620, L503.6005, L100.0100 #### [facility] [address] [place], [address] Platelets (Bld) [#/Vol] 239 10*3/uL Normal 150-450 [facility] Comment on above: Performed By: #### L 300.4310, L300.3900, L500.4050, L503.6620, L503.6005, L100.0100 #### [facility] [address] [place], [address] RBC (Bld) [#/Vol] 5.04 10*6/uL Normal 4.6-6.2 [facility] Comment on above: Performed By: #### L 300.4310, L300.3900, L500.4050, L503.6620, L503.6005, L100.0100 #### [facility] [address] [place], [address] RDW SD 50.0 fl High 35.1-43.9 [facility] Comment on above: Performed By: #### L 300.4310, L300.3900, L500.4050, L503.6620, L503.6005, L100.0100 #### [facility] [address] [place], [address] WBC (Bld) [#/Vol] 8.1 10*3/uL Normal 4.4-11.0 [facility] Comment on above: Performed By: #### L 300.4310, L300.3900, L500.4050, L503.6620, L503.6005, L100.0100 #### [facility] [address] [place], [address] Carbon dioxide measurementOr dered By: Isma Peterson on 06-14-2024 CO2 [Moles/Vol] 31.0 mmol/L 21.0-32.0 [facility] Chloride measurementOrdered By: Isma Peterson on 06-14-2024 Chloride [Moles/Vol] 105 mmol/L 98-107 [facility] Comprehensive Metabolic Prof ilon 06-14-2024 Albumin [Mass/Vol] 3.1 g/dL Low 3.2-5.0 [facility] Comment on above: Performed By: #### L 300.4310, L300.3900, L500.4050, L503.6620, L503.6005, L100.0100 #### [facility] [address] [place], [place], [id number] (694) Albumin/Globulin [Mass ratio] 0.8 {ratio} Low 0.9-2.4 [facility] Comment on above: Performed By: #### L 300.4310, L300.3900, L500.4050, L503.6620, L503.6005, L100.0100 #### [facility] [address] [place], [address] ALK P 179 U/L High 45-117 [facility] Comment on above: Performed By: #### L 300.4310, L300.3900, L500.4050, L503.6620, L503.6005, L100.0100 #### [facility] [address] [place], [address] ALT [Catalytic activity/Vol] 37 U/L Normal 16-61 [facility] Comment on above: Performed By: #### L 300.4310, L300.3900, L500.4050, L503.6620, L503.6005, L100.0100 #### [facility] [address] [place], [address] AST [Catalytic activity/Vol] 32 U/L Normal 15-37 [facility] Comment on above: Performed By: #### L 300.4310, L300.3900, L500.4050, L503.6620, L503.6005, L100.0100 #### [facility] [address] [place], [address] Bilirubin [Mass/Vol] 0.60 mg/dL Normal 0.20-1.00 [facility] Comment on above: Result Comment: For patients on eltrombopag therapy, use of Dimension [place] TBIL is not recommended. Performed By: #### L 300.4310, L300.3900, L500.4050, L503.6620, L503.6005, L100.0100 #### [facility] [address] [place], [address] BUN/CRE 11.1 RATIO Normal 10-20 [facility] Comment on above: Performed By: #### L 300.4310, L300.3900, L500.4050, L503.6620, L503.6005, L100.0100 #### [facility] [address] [place], [address] CA,Total 8.5 mg/dL Normal 8.5-10.1 [facility] Comment on above: Performed By: #### L 300.4310, L300.3900, L500.4050, L503.6620, L503.6005, L100.0100 #### [facility] [address] [place], [address] Chloride [Moles/Vol] 105 mmol/L Normal 98-107 [facility] Comment on above: Performed By: #### L 300.4310, L300.3900, L500.4050, L503.6620, L503.6005, L100.0100 #### [facility] [address] [place], [address] CO2 [Moles/Vol] 31.0 mmol/L Normal 21.0-32.0 [facility] Comment on above: Performed By: #### L 300.4310, L300.3900, L500.4050, L503.6620, L503.6005, L100.0100 #### [facility] [address] [place], [address] Creatinine [Mass/Vol] 0.72 mg/dL Normal 0.70-1.30 [facility] Comment on above: Result Comment: The validity of the calculated GFR GFRAA in patients over 70 years has not been determined. Clinical correlation is essential. Performed By: #### L 300.4310, L300.3900, L500.4050, L503.6620, L503.6005, L100.0100 #### [facility] [address] [place], [address] ECRCL 233.34 ml/min Normal [facility] Comment on above: Performed By: #### L 300.4310, L300.3900, L500.4050, L503.6620, L503.6005, L100.0100 #### [facility] [address] [place], [address] EST GFR - AA 147 mL/min Normal >60 [facility] Comment on above: Result Comment: Afri can [place] GFR Calc Performed By: #### L 300.4310, L300.3900, L500.4050, L503.6620, L503.6005, L100.0100 #### [facility] [address] [place], [address] GAP 3 Low 5-15 [facility] Comment on above: Performed By: #### L 300.4310, L300.3900, L500.4050, L503.6620, L503.6005, L100.0100 #### [facility] [address] [place], [address] GFR/1.73 sq M.predicted among non-blacks MDRD (S/P/Bld) [Vol rate/Area] 122 mL/min/{1.73_m2} Normal >60 [facility] Comment on above: Result Comment: Non- GFR Calc Performed By: #### L 300.4310, L300.3900, L500.4050, L503.6620, L503.6005, L100.0100 #### [facility] [address] [place], [address] Globulin (S) [Mass/Vol] 3.9 g/dL Normal 2.2-4.2 [facility] Comment on above: Performed By: #### L 300.4310, L300.3900, L500.4050, L503.6620, L503.6005, L100.0100 #### [facility] [address] [place], [address] Glucose [Mass/Vol] 127 mg/dL High 74-106 [facility] Comment on above: Result Comment: Fast ing Glucose result greater than or equal to 126 mg/dL suggests DIABETES MELLITUS per A.D.A. criteria. Performed By: #### L 300.4310, L300.3900, L500.4050, L503.6620, L503.6005, L100.0100 #### [facility] [address] [place], [address] Potassium [Moles/Vol] 3.4 mmol/L Low 3.5-5.1 [facility] Comment on above: Performed By: #### L 300.4310, L300.3900, L500.4050, L503.6620, L503.6005, L100.0100 #### [facility] [address] [place], [address] Sodium [Moles/Vol] 139 mmol/L Normal 136-145 [facility] Comment on above: Performed By: #### L 300.4310, L300.3900, L500.4050, L503.6620, L503.6005, L100.0100 #### [facility] [address] [place], [address] T PROT 7.0 g/dL Normal 6.4-8.2 [facility] Comment on above: Performed By: #### L 300.4310, L300.3900, L500.4050, L503.6620, L503.6005, L100.0100 #### [facility] [address] [place], [address] Urea nitrogen [Mass/Vol] 8 mg/dL Normal 7-18 [facility] Comment on above: Performed By: #### L 300.4310, L300.3900, L500.4050, L503.6620, L503.6005, L100.0100 #### [facility] [address] [place], [place], [id number] Eosinophil percentageOrdered By: Isma Peterson on 06-14-2024 Eosinophils/100 WBC (Bld) 2.6 % 0-5 [facility] Erythrocyte distribution wid th ratioOrdered By: Isma Peterson on 06-14-2024 Erythrocyte distribution width (RBC) [Ratio] 15.0 % High 11.6-14.6 [facility] Erythrocyte distribution wid th standard deviationOrdered By: Isma Peterson on 06-14-2024 Erythrocyte distribution width (RBC) [Ratio] 50.0 fl High 35.1-43.9 [facility] Glomerular filtration rate ( GFR) estimationOrdered By: Isma Peterson on 06-14-2024 GFR/1.73 sq M.predicted among non-blacks MDRD (S/P/Bld) [Vol rate/Area] 122 mL/min/{1.73_m2} >60 [facility] Comment on above: Non- GFR Calc Glucose measurementOrdered B y: Isma Peterson on 06-14-2024 Glucose [Mass/Vol] 127 mg/dL High 74-106 [facility] Comment on above: Fasting Glucose resu lt greater than or equal to 126 mg/dL suggests DIABETES MELLITUS per A.D.A. criteria. Hematocrit Auto (Bld) [Volum e fraction]Ordered By: Isma Peterson on 06-14-2024 Hematocrit (Bld) [Volume fraction] 46.2 % 40-54 [facility] Hemoglobin A1con 06-14-2024 HbA1c (Bld) [Mass fraction] 6.1 % High 3.8-5.6 [facility] Comment on above: Result Comment: Norm al < 5.7 % Prediabetic 5.7 - 6.4 % Diabetic >or= 6.5 % Please note range changes. Performed By: #### L 300.4310, L300.3900, L500.4050, L503.6620, L503.6005, L100.0100 #### [facility] [address] [place], [place], [id number] Hemoglobin A1c percentageOrd ered By: Isma Petreson on 06-14-2024 HbA1c (Bld) [Mass fraction] 6.1 % High 3.8-5.6 [facility] Comment on above: Normal < 5.7 % Predi abetic 5.7 - 6.4 % Diabetic >or= 6.5 % Please note range changes. Hemoglobin measurementOrdere d By: Isma Peterson on 06-14-2024 Hemoglobin (Bld) [Mass/Vol] 14.6 g/dL 13.0-16.5 [facility] Immature granulocytes/100 WB C Auto (Bld)Ordered By: Isma Peterson on 06-14-2024 Immature granulocytes/100 WBC (Bld) 0.200 % 0.0-0.9 [facility] Comment on above: IG% - Immature Granu locytes (promyelocytes, myelocytes and metamyelocytes) > 1% indicates that a LEFT SHIFT is Present. Laboratory - Chemistry and C hemistry - challengeOrdered By: Isma Peterson on 06-14-2024 AST [Catalytic activity/Vol] 32 U/L 15-37 [facility] MCV (mean corpuscular volume ) determinationOrdered By: Isma Peterson on 06-14-2024 MCV (RBC) [Entitic vol] 91.7 fL 80-94 [facility] Magnesiumon 06-14-2024 Magnesium [Mass/Vol] 2.2 mg/dL Normal 1.6-2.6 [facility] Comment on above: Performed By: #### L 300.4310, L300.3900, L500.4050, L503.6620, L503.6005, L100.0100 #### [facility] [address] [place], [address] Magnesium measurementOrdered By: Isma Peterson on 06-14-2024 Magnesium [Mass/Vol] 2.2 mg/dL 1.6-2.6 [facility] Mean corpuscular hemoglobin (MCH) determinationOrdered By: Isma Peterson on 06-14-2024 MCH (RBC) [Entitic mass] 29.0 pg 27.0-32.0 [facility] Mean corpuscular hemoglobin concentration (MCHC) determinationOrdered By: Isma Peterson on 06-14-2024 MCHC (RBC) [Mass/Vol] 31.6 g/dL Low 32-36 [facility] Mean platelet volume determi nationOrdered By: Isma Peterson on 06-14-2024 Platelet mean volume (Bld) [Entitic vol] 10.1 fL 6.2-12.0 [facility] Monocyte percentageOrdered B y: Isma Peterson on 06-14-2024 Monocytes/100 WBC (Bld) 8.1 % 0-10 [facility] [place] Neutrophil percentageOrdered By: Isma Peterson on 06-14-2024 Neutrophils/100 WBC (Bld) 64.1 % 47-70 [facility] [place] Nucleated red blood cell per centageOrdered By: Isma Peterson on 06-14-2024 Nucleated RBC/100 WBC (Bld) [Ratio] 0 % 0-5 [facility] [place] Phosphoruson 06-14-2024 Phosphate [Mass/Vol] 3.9 mg/dL Normal 2.5-4.9 [facility] Comment on above: Performed By: #### L 300.4310, L300.3900, L500.4050, L503.6620, L503.6005, L100.0100 #### [facility] [place] [facility] [place], [address] Platelet countOrdered By: Ney Peterson on 06-14-2024 Platelets (Bld) [#/Vol] 239 10*3/uL 150-450 [facility] [place] Potassium measurementOrdered By: Isma Peterson on 06-14-2024 Potassium [Moles/Vol] 3.4 mmol/L Low 3.5-5.1 [facility] RBC Auto (Bld) [#/Vol]Ordere d By: Isma Peterson on 06-14-2024 RBC (Bld) [#/Vol] 5.04 10*6/uL 4.6-6.2 [facility] RESPIRATORY PANEL MOLECULARo n 06-14-2024 RP PANEL ADENOVIRUS Not Detected INFLUENZA A Not Detected INFLUENZA A (SUBTYPE H1) Not Detected INFLUENZA A (SUBTYPE H3) Not Detected INFLUENZA B Not Detected HUMAN METAPHNEUMO Not Detected PARAINFLUENZA 1 Not Detected PARAINFLUENZA 2 Not Detected PARAINFLUENZA 3 Not Detected PARAINFLUENZA 4 Not Detected RHINOVIRUS Not Detected RSV A Not Detected RSV B Not Detected Normal [facility] [place] Comment on above: Performed By: #### L 300.4310, L300.3900, L500.4050, L503.6620, L503.6005, L100.0100 #### [facility] [place] [facility] [address] [place], [address] Respiratory pathogens detect ion panel by molecular detection methodOrdered By: Isma Peterson on 06-14-2024 Respiratory pathogens DNA and RNA panel BANDAR+probe (Resp) [facility] [place] Serum anion gap measurementO rdered By: Isma Peterson on 06-14-2024 Anion gap [Moles/Vol] 3 mmol/L Low 5-15 [facility] Serum globulin measurementOr dered By: Isma Peterson on 06-14-2024 Globulin (S) [Mass/Vol] 3.9 g/dL 2.2-4.2 [facility] [place] Serum or plasma alanine cast otransferase (ALT) measurementOrdered By: Isma Peterson on 06-14-2024 ALT [Catalytic activity/Vol] 37 U/L 16-61 [facility] [place] Serum or plasma albumin rosa urement (mass/volume)Ordered By: Isma Peterson on 06-14-2024 Albumin [Mass/Vol] 3.1 g/dL Low 3.2-5.0 [facility] Serum or plasma alkaline roldan sphatase measurementOrdered By: Isma Peterson on 06-14-2024 ALP [Catalytic activity/Vol] 179 U/L High 45-117 [facility] [place] Serum or plasma calcium rosa urement (mass/volume)Ordered By: Isma Peterson on 06-14-2024 Calcium [Mass/Vol] 8.5 mg/dL 8.5-10.1 [facility] Serum or plasma creatinine m easurement (mass/volume)Ordered By: Isma Peterson on 06-14-2024 Creatinine [Mass/Vol] 0.72 mg/dL 0.70-1.30 [facility] Comment on above: The validity of the calculated GFR & GFRAA in patients over 70 years has not been determined. Clinical correlation is essential. Serum or plasma thyroid stim ulating hormone (TSH) measurement (units/volume)Ordered By: Isma Peterson on 06-14-2024 TSH Qn 1.840 uIU/mL 0.358-3.74 0 [facility] [place] Serum or plasma urea nitroge n measurement (mass/volume)Ordered By: Isma Peterson on 06-14-2024 Urea nitrogen [Mass/Vol] 8 mg/dL 7-18 [facility] [place] Sodium levelOrdered By: Ethan Peterson on 06-14-2024 Sodium [Moles/Vol] 139 mmol/L 136-145 [facility] Thyroid Stim Hormone (TSH)on 06-14-2024 TSH 1.840 uIU/mL Normal 0.358-3.74 0 [facility] [place] Comment on above: Performed By: #### L 300.4310, L300.3900, L500.4050, L503.6620, L503.6005, L100.0100 #### [facility] [place] [facility] [address] [facility] [place], [place], [id number] Total proteinOrdered By: Bryan Peterson on 06-14-2024 Protein [Mass/Vol] 7.0 g/dL 6.4-8.2 [facility] White blood cell (WBC) count Ordered By: Isma Peterson on 06-14-2024 WBC (Bld) [#/Vol] 8.1 10*3/uL 4.4-11.0 [facility] 12 Lead EKGon 06-13-2024 12 Lead EKG [facility] [address] [facility] [place] [address] 12 Lead EKG 06/13/24 2131 MR#: [id number] Acct: [id number] Name: AZALIA MATTHEW II Rep #: [id number] : 1970 53 From: Brandee Beltre MD Attending Dr: Dr. Ferny Coats, DO Status: DIS JESSI Ordering : Jim Cortes DO Date: 06/13/24 Location: MS3 Sex: M C Admitted: 06/14/24 Test Reason : DYSRHYTHMIA Blood Pressure : */* mmHG Vent. Rate : 77 BPM Atrial Rate : 77 BPM P-R Int : 174 ms QRS Dur : 104 ms QT Int : 388 ms P-R-T Axes : 70 41 50 degrees QTcB Int : 439 ms Normal sinus rhythm Normal ECG Confirmed by MILADY PETTIT, SABINE ([id number]), science editor ABBEY MORA ([id number]) on 06/15/2024 1:02:01 PM Referred By: Confirmed By: SABINE BELTRE MD 06/15/24 1302 Date Brandee Beltre MD CC: Dr. Ferny Coats DO; Dr. Jim Cortes DO; No Primary Care Physician Signed Normal [facility] [place] BNP (brain natriuretic pepti de measurement)Ordered By: Jim Cortes on 06-13-2024 Natriuretic peptide B (Bld) [Mass/Vol] 29.4 pg/mL 0-100 [facility] [place] BNP,B-Type NATRIURETIC PEPTI [place] 06-13-2024 Natriuretic peptide B (Bld) [Mass/Vol] 29.4 pg/mL Normal 0-100 [facility] [place] Comment on above: Performed By: #### L 300.4310, L300.3900, L500.4050, L503.6620, L503.6005, L100.0100 #### [facility] [place] [facility] [address] [place], [address] Basic Metabolic Profile (BMP )on 06-13-2024 BUN/CRE 10.8 RATIO Normal 10-20 [facility] [place] Comment on above: Order Comment: 'TROP ' Serial specimen #1, #2 or #3: 1 Performed By: #### L 300.4310, L300.3900, L500.4050, L503.6620, L503.6005, L100.0100 #### [facility] [place] [facility] [address] [place], [address] CA,Total 8.6 mg/dL Normal 8.5-10.1 [facility] [place] Comment on above: Order Comment: 'TROP ' Serial specimen #1, #2 or #3: 1 Performed By: #### L 300.4310, L300.3900, L500.4050, L503.6620, L503.6005, L100.0100 #### [facility] [place] [facility] [address] [place], [address] Chloride [Moles/Vol] 104 mmol/L Normal 98-107 [facility] Comment on above: Order Comment: 'TROP ' Serial specimen #1, #2 or #3: 1 Performed By: #### L 300.4310, L300.3900, L500.4050, L503.6620, L503.6005, L100.0100 #### [facility] [place] [facility] [address] [place], [address] CO2 [Moles/Vol] 26.0 mmol/L Normal 21.0-32.0 [facility] [place] Comment on above: Order Comment: 'TROP ' Serial specimen #1, #2 or #3: 1 Performed By: #### L 300.4310, L300.3900, L500.4050, L503.6620, L503.6005, L100.0100 #### [facility] [place] [facility] [address] [place], [address] Creatinine [Mass/Vol] 0.83 mg/dL Normal 0.70-1.30 [facility] Comment on above: Order Comment: 'TROP ' Serial specimen #1, #2 or #3: 1 Result Comment: The validity of the calculated GFR GFRAA in patients over 70 years has not been determined. Clinical correlation is essential. Performed By: #### L 300.4310, L300.3900, L500.4050, L503.6620, L503.6005, L100.0100 #### [facility] [place] [facility] [address] [place], [address] ECRCL 212.46 ml/min Normal [facility] [place] Comment on above: Order Comment: 'TROP ' Serial specimen #1, #2 or #3: 1 Performed By: #### L 300.4310, L300.3900, L500.4050, L503.6620, L503.6005, L100.0100 #### [facility] [place] [facility] [address] [place], [address] EST GFR - AA 125 mL/min Normal >60 [facility] [place] Comment on above: Order Comment: 'TROP ' Serial specimen #1, #2 or #3: 1 Result Comment: Afri can [place] GFR Calc Performed By: #### L 300.4310, L300.3900, L500.4050, L503.6620, L503.6005, L100.0100 #### [facility] [place] [facility] [address] [place], [address] GAP 6 Normal 5-15 [facility] [place] Comment on above: Order Comment: 'TROP ' Serial specimen #1, #2 or #3: 1 Performed By: #### L 300.4310, L300.3900, L500.4050, L503.6620, L503.6005, L100.0100 #### [facility] [place] [facility] [address] [place], [address] GFR/1.73 sq M.predicted among non-blacks MDRD (S/P/Bld) [Vol rate/Area] 103 mL/min/{1.73_m2} Normal >60 [facility] [place] Comment on above: Order Comment: 'TROP ' Serial specimen #1, #2 or #3: 1 Result Comment: Non- GFR Calc Performed By: #### L 300.4310, L300.3900, L500.4050, L503.6620, L503.6005, L100.0100 #### [facility] [place] [facility] [address] [place], [address] Glucose [Mass/Vol] 113 mg/dL High 74-106 [facility] Comment on above: Order Comment: 'TROP ' Serial specimen #1, #2 or #3: 1 Result Comment: Fast ing Glucose result from 100 to 125 mg/dL suggests IMPAIRED HOMEOSTASIS per A.D.A. criteria. Performed By: #### L 300.4310, L300.3900, L500.4050, L503.6620, L503.6005, L100.0100 #### [facility] [place] [facility] [address] [place], [address] Potassium [Moles/Vol] 3.9 mmol/L Normal 3.5-5.1 [facility] Comment on above: Order Comment: 'TROP ' Serial specimen #1, #2 or #3: 1 Result Comment: Mode rate Hemolysis, Result may be falsely increased. Performed By: #### L 300.4310, L300.3900, L500.4050, L503.6620, L503.6005, L100.0100 #### [facility] [place] [facility] [address] [place], [address] Sodium [Moles/Vol] 136 mmol/L Normal 136-145 [facility] Comment on above: Order Comment: 'TROP ' Serial specimen #1, #2 or #3: 1 Performed By: #### L 300.4310, L300.3900, L500.4050, L503.6620, L503.6005, L100.0100 #### [facility] [place] [facility] [address] [place], [address] Urea nitrogen [Mass/Vol] 9 mg/dL Normal 7-18 [facility] [place] Comment on above: Order Comment: 'TROP ' Serial specimen #1, #2 or #3: 1 Performed By: #### L 300.4310, L300.3900, L500.4050, L503.6620, L503.6005, L100.0100 #### [facility] [place] [facility] [address] [place], [address] CBC W/Diff, Automatedon 02-05 03-2024 Absolute Lymph 2.46 X10 3/uL Normal 0.83-4.51 [facility] [place] Comment on above: Performed By: #### L 300.4310, L300.3900, L500.4050, L503.6620, L503.6005, L100.0100 #### [facility] [place] [facility] [address] [place], [address] Absolute Neut 6.3 X10 3/uL Normal 2.0-7.7 [facility] [place] Comment on above: Performed By: #### L 300.4310, L300.3900, L500.4050, L503.6620, L503.6005, L100.0100 #### [facility] [place] [facility] [address] [place], [address] Basophils/100 WBC (Bld) 0.3 % Normal 0-1 [facility] [place] Comment on above: Performed By: #### L 300.4310, L300.3900, L500.4050, L503.6620, L503.6005, L100.0100 #### [facility] [place] [facility] [address] [place], [address] Eosinophils/100 WBC (Bld) 2.0 % Normal 0-5 [facility] [place] Comment on above: Performed By: #### L 300.4310, L300.3900, L500.4050, L503.6620, L503.6005, L100.0100 #### [facility] [place] [facility] [address] [place], [address] Erythrocyte distribution width (RBC) [Ratio] 14.6 % Normal 11.6-14.6 [facility] [place] Comment on above: Performed By: #### L 300.4310, L300.3900, L500.4050, L503.6620, L503.6005, L100.0100 #### [facility] [place] [facility] [address] [place], [address] Hematocrit (Bld) [Volume fraction] 47.6 % Normal 40-54 [facility] [place] Comment on above: Performed By: #### L 300.4310, L300.3900, L500.4050, L503.6620, L503.6005, L100.0100 #### [facility] [place] [facility] [address] [place], [address] Hemoglobin (Bld) [Mass/Vol] 15.3 g/dL Normal 13.0-16.5 [facility] [place] Comment on above: Performed By: #### L 300.4310, L300.3900, L500.4050, L503.6620, L503.6005, L100.0100 #### [facility] [place] [facility] [address] [facility] [place], [address] IG% 0.300 Normal 0.0-0.9 [facility] [place] Comment on above: Result Comment: IG% - Immature Granulocytes (promyelocytes, myelocytes and metamyelocytes) > 1% indicates that a LEFT SHIFT is Present. Performed By: #### L 300.4310, L300.3900, L500.4050, L503.6620, L503.6005, L100.0100 #### [facility] [place] [facility] [address] [place], [address] Lymphocytes/100 WBC (Bld) 25.3 % Normal 19-41 [facility] [place] Comment on above: Performed By: #### L 300.4310, L300.3900, L500.4050, L503.6620, L503.6005, L100.0100 #### [facility] [place] [facility] [address] [place], [address] MCH (RBC) [Entitic mass] 28.9 pg Normal 27.0-32.0 [facility] [place] Comment on above: Performed By: #### L 300.4310, L300.3900, L500.4050, L503.6620, L503.6005, L100.0100 #### [facility] [place] [facility] [address] [place], [address] MCHC (RBC) [Mass/Vol] 32.1 g/dL Normal 32-36 [facility] Comment on above: Performed By: #### L 300.4310, L300.3900, L500.4050, L503.6620, L503.6005, L100.0100 #### [facility] [place] [facility] [address] [place], [address] MCV (RBC) [Entitic vol] 89.8 fL Normal 80-94 [facility] [place] Comment on above: Performed By: #### L 300.4310, L300.3900, L500.4050, L503.6620, L503.6005, L100.0100 #### [facility] [place] [facility] [address] [place], [address] Monocytes/100 WBC (Bld) 7.5 % Normal 0-10 [facility] [place] Comment on above: Performed By: #### L 300.4310, L300.3900, L500.4050, L503.6620, L503.6005, L100.0100 #### [facility] [place] [facility] [address] [place], [address] Neutrophils/100 WBC (Bld) 64.6 % Normal 47-70 [facility] [place] Comment on above: Performed By: #### L 300.4310, L300.3900, L500.4050, L503.6620, L503.6005, L100.0100 #### [facility] [place] [facility] [address] [place], [address] Nucleated RBC (Bld) [#/Vol] 0 10*3/uL Normal 0-5 [facility] [place] Comment on above: Performed By: #### L 300.4310, L300.3900, L500.4050, L503.6620, L503.6005, L100.0100 #### [facility] [place] [facility] [address] [place], [address] Platelet mean volume (Bld) [Entitic vol] 9.9 fL Normal 6.2-12.0 [facility] [place] Comment on above: Performed By: #### L 300.4310, L300.3900, L500.4050, L503.6620, L503.6005, L100.0100 #### [facility] [place] [facility] [address] [place], [address] Platelets (Bld) [#/Vol] 231 10*3/uL Normal 150-450 [facility] [place] Comment on above: Performed By: #### L 300.4310, L300.3900, L500.4050, L503.6620, L503.6005, L100.0100 #### [facility] [place] [facility] [address] [place], [address] RBC (Bld) [#/Vol] 5.30 10*6/uL Normal 4.6-6.2 [facility] Comment on above: Performed By: #### L 300.4310, L300.3900, L500.4050, L503.6620, L503.6005, L100.0100 #### [facility] [place] [facility] [address] [place], [address] RDW SD 47.6 fl High 35.1-43.9 [facility] [place] Comment on above: Performed By: #### L 300.4310, L300.3900, L500.4050, L503.6620, L503.6005, L100.0100 #### [facility] [place] [facility] [address] [place], [address] WBC (Bld) [#/Vol] 9.7 10*3/uL Normal 4.4-11.0 [facility] Comment on above: Performed By: #### L 300.4310, L300.3900, L500.4050, L503.6620, L503.6005, L100.0100 #### [facility] [place] [facility] [address] [place], [address] Absolute Neut Normal 2.0-7.7 [facility] [place] Comment on above: Result Comment: CELIO BEAVERS, SPOKE WITH LEONA Performed By: #### L 300.4310, L300.3900, L500.4050, L503.6620, L503.6005, L100.0100 #### [facility] [place] [facility] [address] [place], [address] HCT Normal 40-54 [facility] [place] Comment on above: Result Comment: CELIO BEAVERS, SPOKE WITH [place]ONA Performed By: #### L 300.4310, L300.3900, L500.4050, L503.6620, L503.6005, L100.0100 #### [facility] [place] [facility] [address] [place], [address] HGB Normal 13.0-16.5 [facility] [place] Comment on above: Result Comment: CELIO BEAVERS, SPOKE WITH LEONA Performed By: #### L 300.4310, L300.3900, L500.4050, L503.6620, L503.6005, L100.0100 #### [facility] [place] [facility] [address] [place], [address] MCH Normal 27.0-32.0 [facility] [place] Comment on above: Result Comment: CELIO BEAVERS, SPOKE WITH LEONA Performed By: #### L 300.4310, L300.3900, L500.4050, L503.6620, L503.6005, L100.0100 #### [facility] [place] [facility] [address] [place], [address] MCHC Normal 32-36 [facility] [place] Comment on above: Result Comment: CELIO BEAVERS, SPOKE WITH LEONA Performed By: #### L 300.4310, L300.3900, L500.4050, L503.6620, L503.6005, L100.0100 #### [facility] [place] [facility] [address] [place], [address] MCV Normal 80-94 [facility] [place] Comment on above: Result Comment: CELIO BEAVERS, SPOKE WITH LEONA Performed By: #### L 300.4310, L300.3900, L500.4050, L503.6620, L503.6005, L100.0100 #### [facility] [place] [facility] [address] [place], [address] NEUT% Normal 47-70 [facility] [place] Comment on above: Result Comment: CELIO BEAVERS, SPOKE WITH LEONA Performed By: #### L 300.4310, L300.3900, L500.4050, L503.6620, L503.6005, L100.0100 #### [facility] [place] [facility] [address] [place], [address] PLT Normal 150-450 [facility] [place] Comment on above: Result Comment: CELIO BEAVERS, SPOKE WITH LEONA Performed By: #### L 300.4310, L300.3900, L500.4050, L503.6620, L503.6005, L100.0100 #### [facility] [place] [facility] [address] [place], [address] RBC Normal 4.6-6.2 [facility] [place] Comment on above: Result Comment: CELIO BEAVERS, SPOKE WITH LEONA Performed By: #### L 300.4310, L300.3900, L500.4050, L503.6620, L503.6005, L100.0100 #### [facility] [place] [facility] [address] [place], [address] RDW CV Normal 11.6-14.6 [facility] [place] Comment on above: Result Comment: CELIO BEAVERS, SPOKE WITH LEONA Performed By: #### L 300.4310, L300.3900, L500.4050, L503.6620, L503.6005, L100.0100 #### [facility] [place] [facility] [address] [place], [address] RDW SD Normal 35.1-43.9 [facility] [place] Comment on above: Result Comment: CELIO BEAVERS, SPOKE WITH LEONA Performed By: #### L 300.4310, L300.3900, L500.4050, L503.6620, L503.6005, L100.0100 #### [facility] [place] [facility] [address] [place], [address] WBC Normal 4.4-11.0 [facility] [place] Comment on above: Result Comment: CELIO BEAVERS, SPOKE WITH LEONA Performed By: #### L 300.4310, L300.3900, L500.4050, L503.6620, L503.6005, L100.0100 #### [facility] [place] [facility] [address] [place], [address] CO2 (BldV) [Moles/Vol]Ordere d By: Jim Cortes on 06-13-2024 CO2 [Moles/Vol] 35 mmol/L High 23-33 [facility] [place] Chest 1 View (Portable)on Chest 1 View (Portable) [facility] Imaging Services [address] [place] [address] Chest 1 View (Portable) MR#: [id number] Acct: [id number] Name: AZALIA MATTHEW II Rep #: [id number] : 1970 M 53 From: [facility] DO PCP: Care Physician,No Primary Status: REG ER Study: Chest 1 View (Portable) Date of Exam: 06/13/24 Exam# [id number] Ordering Dr: Jim Cortes DO PROCEDURE: CHEST 1 VIEW (PORTABLE) REASON FOR EXAM: Shortness of breath. TECHNIQUE: Frontal view of the chest. COMPARISON: Chest x-ray from 12/22/2023. FINDINGS: Cardiac size is stable and mildly prominent. There is mild prominence of the pulmonary interstitium. No consolidation, pleural effusion, or pneumothorax is present. RAD/Chest 1 View (Portable) IMPRESSION: Mild cardiomegaly and mild prominence of the pulmonary interstitium. No significant change. Reading Location: [facility] CC: Dr. Jim Cortes, ; No Primary Care Physician Silk Screen Printer Helper: Signed Normal [facility] [place] Emergency Department Summary on 06-13-2024 Emergency Department Summary [facility] Medical Records Department [address] [place] [address] Emergency Department Summary 06/13/24 MR#: [id number] Acct: [id number] Name: AZALIA MATTHEW II Rep #: [id number] : 1970 53 From: Jim Cortes DO PCP: Care Physician,No Primary Status:ADM JESSI Location: [address] History of Present Illness Chief Complaint: Cold Sx PFSH PFSH Medical History COPD (chronic obstructive pulmonary disease) Tobacco abuse History of cellulitis Morbid obesity Home Medications ???Medication ???Instructions ???Recorded ???Last Taken ???Type NK 06/13/24 Unknown History Allergy/AdvReac Type Severity Reaction Status Date / Time No Known Allergies Allergy Verified 06/13/24 20:54 Family History Mother Cancer Father Cancer Surgical History History of cholecystectomy History of appendectomy Social History (Updated 12/28/23 @ 17:46 by Ray Us NP, LOOM CHECKER-C) household members: friend(s) 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 He states this began 3 to 4 days ago. He further states he has no chest pain. No sick contacts. No new leg swelling. Denies any bleeding diathesis. The patient denies recent surgery in the last 4 weeks or immobilization in the last 3 days, denies previous diagnosis of DVT or PE, hemoptysis, unilateral leg swelling or malignancy with treatment the last 6 months or palliative. No estrogen use noted. REVIEW OF SYSTEMS: Pertinent positives: As per HPI Pertinent negatives: Leg swelling, syncope PHYSICAL EXAM: Nursing triage notes reviewed, Vital signs reviewed Constitutional: please see [facility] HENT: MMM Eyes: Pupils equal round and reactive to light, Extraocular muscles intact Neck: No stridor, no JVD, full neck ROM Lungs: Clear to auscultation, No wheezing or rales. No increased work of breathing, no conversational dyspnea, no accessory muscle use, no nasal flaring. No respiratory distress noted Heart: Regular rate and rhythm, No murmurs, No rubs and No gallops, 2+ distal pulses (radial, femoral, posterior tibial) in all extremities Abdomen: Soft, there is no tenderness, rigidity, rebound or guarding, no obvious peritoneal signs, no palpable pulsatile abdominal masses, no auscultated abdominal bruit : No CVAT Extremities: 2+ pitting edema bilateral lower extremities, chronic venous stasis changes noted. Neuro: No new focal neurological deficits, cranial nerves II through XII intact, 5/5 strength in all present extremities. Intact sensation to light touch in all present extremities, 2+ reflexes bilateral patella tendons. Skin: No rash or lesions noted MEDICAL DECISION MAKING: Chief Complaint: As per HPI External records reviewed: Reviewed prior imaging. Prior Echocardiogram from Factors affecting care: Obesity, COPD, Social determinants of health: Tobacco abuse History obtained from others: none Consults: Internal Medicine (Dr[facility] Shekih[facility] Narrative: Patient was initially hemodynamically stable, afebrile, nontoxic-appearing. Exam without focal cardiopulmonary abnormalities. No lower extremity edema. No stigmata of VTE. I considered the following differential diagnosis: ACS, arrhythmia, anemia, electrolyte disturbance ALL IMAGES (IF OBTAINED) HAVE BEEN PERSONALLY REVIEWED AND INTERPRETED BY MYSELF. High-sensitivity troponin is negative, no evidence of myocardial ischemia EKG with normal sinus rhythm rate of 77, normal axis, normal intervals, no STEMI COVID/flu/RSV. CBC without leukocytosis, severe anemia, no thrombocytopenia. BMP without evidence of significant electrolyte abnormalities, no anion gap, no acute kidney injury. Upon reassessment pt was hypoxic at rest. I initially attributed this to likely SINA and a component of obesity hypoventilation syndrome. The patient was then ambulated and he was unable to maintain his oxygen. He dropped as low as 84% with a good waveform. Given exertional hypoxia I decided to admit the patient. This time I reassessed his (more content not included)... Normal [facility] H AND P Exam - [facility] 06-13-2024 H&P Exam - Hospitalist [facility] Medical Records Department [address] [place] [address] H P Exam - Hospitalist 06/13/24 2320 MR#: [id number] Acct: [id number] Name: AZALIA MATTHEW II Rep #: [id number] : 1970 53 From: Isma Sheikh DO PCP: Care Physician,No Primary Status:ADM JESSI Location: [place] [address] HPI - General General Date of Admission: 06/14/24 Date of Service: 06/13/24 Chief Complaint: Viral URI and SOB. HPI Narrative AZALIA MATTHEW, is a 53 M with a past medical history of tobacco abuse 1 ppd x 36 years; with subsequent COPD with 'blue-bloater' phenotype, super-morbid obesity; with BMI of 73 this admission, SINA, history of polycythemia; attributed to chronic hypoxia, chronic venous stasis with history of bilateral foot ulcers and LE cellulitis with admission here from December 22, 2023 to December 25, 2023 with subsequent discharge on oral doxycycline and with follow up treatment by the [facility] here on January 09, 2024 with noted improvement, history of appendectomy, history of cholecystectomy and history of homelessness who presents to [facility] ER complaining viral URI and shortness of breath. Mr. Matthew reports his symptoms began approximately 3-4 days prior to admission with the gradual-onset of SOB, fatigue and generalized weakness due to suspected viral URI. He denies associated fever, chills, nausea, vomiting, diarrhea, constipation, increased LE swelling, wheezing, chest pain, headache or known sick contacts. In the ER he was noted to have an unremarkable CXR and laboratory studies but he became hypoxic at 84% when he ambulated in the ER and then the ER physician sought admission so patient could continue his supplemental oxygen for hypoxia likely due to a combination of obesity hypoventilation syndrome, SINA and continued tobacco abuse with COPD that is not flaring at this time. He was then admitted to the general medical floor under observation status for a stay that is expected to be less than 2 midnights. [facility] Medical History (Updated 06/14/24 @ 05:[address] 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 Eyes: Patient denies changes in vision or discharge from eyes. ENT: Patient denies runny nose, sore throat or ear pain. Resp: Patient admits to SOB and nonproductive cough. CV: Patient denies chest pain, palpitations, heart racing or lower extremity edema. GI: Patient denies abdominal pain, nausea, vomiting, diarrhea or constipation. : Patient denies dysuria or hematuria. MSK: Patient admits to chronic debility with chronic Left leg pain attributed to previous falls as per HPI. Skin: Patient denies rash, abscess, wounds or jaundice. Psych: Patient denies symptoms of uncontrolled depression or anxiety. Neuro: Patient denies headache, paresthesias or focal neurologic deficits. Allergy: Patient denies lip swelling, tongue swelling or urticaria. Hematology: Patient denies recent bleeding. Endocrinology: Patient denies polyuria, polydipsia or polyphagia. 14 point ROS otherwise negative except for positives noted above in HPI. Vital Signs Vital Signs Vital Signs: 06/13/24 20:52 06/13/24 21:23 06/13/24 22:45 Temperature 98.0 F Temperature Source Temporal Pulse Rate 75 72 Respiratory Rate 18 Blood Pressure 162/76 H Blood Pressure Mean 104 Pulse Ox 97 93 Oxygen Delivery Method Room Air Nasal Cannula Oxygen Flow Rate (L/min) 2 Weight Weight: 538 lb 9.428 oz Body Mass Index (BMI) 73.0 Results Lab / Micro Data 06/13/24 22:30 06/13/24 21:20 Labs: Laboratory Results - last 24 hr 06/13/24 21:20: WBC Cancelled, Corrected WBC Cancelled, RBC Cancelled, Hgb Cancelled, Hct Cancelled, MCV Cancelled, MCH Cancelled, MCHC Cancelled, RDW Std Deviation Cancelled, RDW Coeff of Pradeep Cancelled, Plt Count Cancelled, MPV Cancelled, I (more content not included)... Normal [facility] Influenza virus A and B and SARS-CoV-2 (COVID-19) and Respiratory syncytial virus RNAOrdered By: Jim Cortes on 06-13-2024 SARS-CoV-2 (COVID-19) RNA BANDAR+probe Ql (Unsp spec) [facility] L501.4020on 06-13-2024 TROPONIN-I HS 12 pg/mL Normal 3.0-78.0 [facility] Comment on above: Order Comment: 'TROP ' Serial specimen #1, #2 or #3: 1 Result Comment: Adrienne leon Note: New Test Units and Gender Specific Reference Ranges. For more information see Policy Stat Procedure [place] High Sensitivity Troponin (TNIH) and attachments. Performed By: #### L 300.4310, L300.3900, L500.4050, L503.6620, L503.6005, L100.0100 #### [facility] [address] [place], [address] M100.678on 06-13-2024 M100.678 SARS-CoV-2 (COVID 19 ) Negative INFLUENZA A Negative INFLUENZA B Negative RSV PCR Negative Normal [facility] Comment on above: Performed By: #### L 300.4310, L300.3900, L500.4050, L503.6620, L503.6005, L100.0100 #### [facility] [address] [place], [address] No Panel InformationOrdered By: Jim Cortes on 06-13-2024 Blood Gas Sample Site Not entered [facility] Blood Gas Specimen Type BUD [facility] Oxygen Delivery Device Cannula [facility] Troponin IOrdered By: Jim Cortes on 06-13-2024 Troponin I 12 pg/mL 3.0-78.0 [facility] Comment on above: Please Note: New Fartun t Units and Gender Specific Reference Ranges. For more information see Policy Stat Procedure [place] High Sensitivity Troponin (TNIH) and attachments. Venous Blood Gason Blood Gas Type BUD Normal [facility] Comment on above: Performed By: #### L 9000.0810 ####[facility] [address] [place], [address] CO2 [Moles/Vol] 35 mmol/L High 23-33 [facility] Comment on above: Performed By: #### L 9000.0810 ####[facility] [address] [place], [address] FI02 3.0 Normal [facility] Comment on above: Performed By: #### L 9000.0810 ####[facility] [address] [place], [address] HCO3 (Bld) [Moles/Vol] 33 mmol/L High 22-26 [facility] Comment on above: Performed By: #### L 9000.0810 ####[facility] [address] [place], [address] O2 Delivery Dev Cannula Normal [facility] Comment on above: Performed By: #### L 9000.0810 ####[facility] [address] [place], [address] SITE Not entered Normal [facility] Comment on above: Performed By: #### L 9000.0810 ####[facility] [address] [place], [address] VBG BE 8 mmol/L High -1.0-3.5 [facility] Comment on above: Performed By: #### L 9000.0810 ####[facility] [address] [place], [address] VBG pCO2 59.9 mmHg High 41-51 [facility] Comment on above: Performed By: #### L 9000.0810 ####[facility] [address] [place], [address] VBG pH 7.35 Normal 7.32-7.42 [facility] Comment on above: Performed By: #### L 9000.0810 ####[facility] [address] [place], [address] VBG PO2 48 mmHg High 25-40 [facility] Comment on above: Performed By: #### L 9000.0810 ####[facility] [address] [place], [address] VBG SO2 80 High 50-70 [facility] Comment on above: Performed By: #### L 9000.0810 ####[facility] [address] [place], [address] Venous blood base excess catherine surementOrdered By: Jim Cortes on 06-13-2024 Base excess Calc (BldV) [Moles/Vol] 8 mmol/L High -1.0-3.5 [facility] Venous blood bicarbonate catherine surementOrdered By: Jim Cortes on 06-13-2024 HCO3 (Bld) [Moles/Vol] 33 mmol/L High 22-26 [facility] Venous blood oxygen saturati on measurementOrdered By: Jim Cortes on 06-13-2024 Oxygen saturation in Blood 80 % High 50-70 [facility] Venous blood pH measurementO rdered By: Jim Cortes on 06-13-2024 pH (BldV) 7.35 [pH] 7.32-7.42 [facility] Venous blood partial pressur e of carbon dioxide measurementOrdered By: Jim Cortes on 06-13-2024 CO2 (BldV) [Partial pressure] 59.9 mm[Hg] High 41-51 [facility] Venous blood partial pressur e of oxygen measurementOrdered By: Jim Cortes on 06-13-2024 Oxygen (BldV) [Partial pressure] 48 mm[Hg] High 25-40 [facility] Lower Ext Art Exam w/o Exerc miguelito 01-06-2024 Lower Ext Art Exam w/o Exercis [facility] [address] [place] [address] Lower Ext Art Exam w/o Exercis 01/06/24 1339 MR#: [id number] Acct: [id number] Name: AZALIA MATTHEW II Rep #: [id number] : 1970 53 From: Francesco Antoine MD Attending Dr: Ray Us LOOM CHECKER-C Status: R EG RCR Ordering Dr: Ray Us NP LOOM CHECKER-C Date: 01/05 Location: [facility] Sex: M C Admitted: Reason For Study: BLE EDEMA Procedure A bilateral lower extremity continuous wave Doppler with analog waveform analysis,segmental pressures,and ankle brachial indexes without exercise. Left Segmental Pressures Left brachial= 136mmHg. Left posterior tibial artery = 145mmHg. Left dorsalis pedis artery = 136mmHg. Left digit = 150 mmHg. The left posterior tibial artery waveforms are triphasic. The left dorsalis pedis waveforms are triphasic. Right Segmental Pressures Right brachial= 128mmHg. Right posterior tibial artery = 161mmHg. Right dorsalis pedis artery = 159mmHg. Right digit = 147 mmHg. The right posterior tibial artery waveforms are triphasic. The right dorsalis pedis waveforms are triphasic. Indices The right resting ankle brachial index is 1.18. The right ankle brachial index by the posterior tibial artery is 1.18. The right ankle brachial index by the dorsalis pedis is 1.17. The right digital-brachial index is 1.08. The left resting ankle brachial index is 1.07. The left ankle brachial index by the posterior tibial artery is 1.07. The left ankle brachial index by the dorsalis pedis is 1.0. The left digital-brachial index is 1.10. VL/Lower Ext Art Exam w/o Exercis Interpretation Summary Triphasic Doppler waveforms are noted at ankle level bilaterally. Pulse-volume recordings appear satisfactory at all levels bilaterally. Resting ankle-brachial indices are normal bilaterally. Digital-brachial indices are normal bilaterally. There is no evidence of significant arterial occlusive disease in the lower extremities bilaterally. Ordering Physician: Ray Us Referring Physician: RAY US LOOM CHECKER-C Performed By: Farheen Mendez RVT, RDCS 01/08/24 1246 Date Francesco Antoine MD CC: LOOM CHECKER-C Ray Us; Dr. Isma Parkinson MD; No Primary Care Physician Date Dictated: 01/06/24 1339 Date Transcribed: 01/08/24 1246 Silk Screen Printer Helper: Signed Normal [facility] Culture, Blood (WB)on 2023 CUB Blood cultures x2, f rom two different sites No growth in 5 days. Normal [facility] Comment on above: Performed By: #### L 300.4310, L300.3900, L500.4050, L503.6620, L503.6005, L100.0100 #### [facility] [address] [place], [address] Wound Ctr History AND Physic armond 12-28-2023 Wound Ctr History & Physical [facility] [address] [place] [address] H P Exam - Wound Care 12/28/23 1606 MR#: [id number] Acct: [id number] Name: AZALIA MATTHEW II Rep #: [id number] : 1970 53 From: Ray Us NP LOOM CHECKER-C PCP: Care Physician,No Primary Status:REG RCR Location: History of Present Illness Date of Service: 12/28/23 Chief Complaint: Ulcers bilateral lower legs and edema History of Wound: 53 year old male presents with a one month history of bilateral leg ulcers, bilateral lower leg edema and a recent hospitalization for cellulitis of his lower legs bilaterally. He states that his legs were very swollen and they were draining a lot of clear/yellow fluid. 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 He was initially hospitalized in [facility]. He was discharged home. He then went to [facility] a few days later for increased redness, pain and edema of his lower legs. He was hospitalized 12/22/23 - 12/25/23 with cellulitis and edema of his lower legs bilaterally. He had wound cultures of his leg obtained on 12/23/23 which were positive for Staphylococcus pseuintermediu, [place] odotolyticus and Enterococus faecalis. He was discharged home on Doxycycline. Venous doppler done 12/23/23 which showed no evidence of DVT on either side. Deep veins of the lower extremities are bilaterally patent and compressible segmentally. Valvular competence appears to be intact within the proximal deep venous systems bilaterally. The great saphenous veins appear bilaterally patent and compression segmentally. He had a cardiac echo on 12/23/23 which showed left ventricular EF = 65%. He was discharged home using Calmoseptine cream on his legs and wrapping them with FLAQUITO wraps for compression. He was referred to the wound healing center for further management on his leg ulcers. Today he denies fever, chills, nausea or vomiting. Progress of Wound: He has a cluster of ulcers on both his right and left lower legs. They are superficial, fibrous and very painful .He has hemosiderin staining of his lower legs and +2-+3 non pitting edema bilaterally. [facility] Medical History (Updated 12/28/23 @ 17:53 by Ray Us NP, LOOM CHECKER-C) COPD (chronic obstructive pulmonary disease) Tobacco abuse History of cellulitis Morbid obesity Home Medications ???Medication ???Instructions ???Recorded ???Last Taken ???Type doxycycline hyclate 100 mg tablet 100 mg PO BID #14 tabs 12/25/23 Unknown Rx furosemide 40 mg tablet (Lasix) 40 mg PO DAILY #60 tabs 12/25/23 Unknown Rx amoxicillin 875 mg-potassium 1 tab PO BID 10 days #20 tabs 12/28/23 Unknown Rx clavulanate 125 mg tablet Allergy/AdvReac Type Severity Reaction Status Date / Time No Known Allergies Allergy Verified 12/28/23 15:05 Family History Mother Cancer Father Cancer Surgical History (Updated 12/28/23 @ 17:43 by Ray Us NP, LOOM CHECKER-C) History of cholecystectomy History of appendectomy Social History (Updated 12/28/23 @ 17:46 by Ray Us NP, LOOM CHECKER-C) household members: friend(s) 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 Smoking Status: Current every day smoker tobacco type: cigarettes Smoking packs per day: 1.5 Smoking cigarettes per day: 30.0 Years smoked: 36 Smoking pack-years: 54.00 Tobacco: How many years used: 36 alcohol intake: never substance use type: does not use ROS Constitutional Constitutional: Denies chills or fever(s) Eyes Eyes: Reports none ENT HEENT: Reports none Cardiovascular Cardiovascular: Denies chest pain or dyspnea Respiratory/Chest Respiratory/Chest: Denies cough Gastrointestinal Gastrointestinal: Denies dyspepsia, nausea or vomiting Musculoskeletal Musculoskeletal: Reports none Integumentary Integumentary: Reports skin ulcer Neurologic Neurologic: Reports none Psychiatric Psychiatric: Reports none Endocrine Endocrinology: Reports systems reviewed and no addt'l complaints, except as documented Vital Signs Vital Signs Vital Signs: 12/28/23 14:43 Pulse Rate 88 Respiratory Rate 20 H Blood Pressure 158/90 H Blood Pressure Mean 112 Blood Pressure Source Monitor Blood Pressure Position Sitting Blood Pressure Location Left Forearm Oxygen Delivery Method Room Air Weight Weight: 497 lb Body Mass Index (BMI) 67.3 Physical Exam Const alert and oriented x3 General Appearance: cooperative HEENT normocephalic Head and Scalp: atraumatic Eyes General Eye: normal appearance of both eyes Neck full ROM Resp normal respiratory effort, normal air movement and clear to auscultation bilaterally Effort and Inspection: able to speak in complete sentences Cardio regular rate and regular rhythm Back/Spi (more content not included)... Normal [facility] Basic Metabolic Profile (BMP )on 12-26-2023 BUN Normal 7-18 [facility] Comment on above: Result Comment: Canc elled via OM: Order cancelled - Patient discharged Performed By: #### L 500.2500, L100.0100 ####[facility] [address] [facility] [address] BUN/CRE Normal 10-20 [facility] Comment on above: Result Comment: Canc elled via OM: Order cancelled - Patient discharged Performed By: #### L 500.2500, L100.0100 ####[facility] [address] [place], [address] CA,Total Normal 8.5-10.1 [facility] Comment on above: Result Comment: Canc elled via OM: Order cancelled - Patient discharged Performed By: #### L 500.2500, L100.0100 ####[facility] [address] [place], [address] CL Normal 98-107 [facility] Comment on above: Result Comment: Canc elled via OM: Order cancelled - Patient discharged Performed By: #### L 500.2500, L100.0100 ####[facility] [address] [place], [address] CO2 Normal 21.0-32.0 [facility] Comment on above: Result Comment: Canc elled via OM: Order cancelled - Patient discharged Performed By: #### L 500.2500, L100.0100 ####[facility] [address] [place], [address] CREAT,SERUM Normal 0.70-1.30 [facility] Comment on above: Result Comment: Canc elled via OM: Order cancelled - Patient discharged Performed By: #### L 500.2500, L100.0100 ####[facility] [address] [place], [address] EST GFR Normal >60 [facility] Comment on above: Result Comment: Canc elled via OM: Order cancelled - Patient discharged Performed By: #### L 500.2500, L100.0100 ####[facility] [address] [place], [address] EST GFR - AA Normal >60 [facility] Comment on above: Result Comment: Canc elled via OM: Order cancelled - Patient discharged Performed By: #### L 500.2500, L100.0100 ####[facility] [address] [place], [address] GAP Normal 5-15 [facility] Comment on above: Result Comment: Canc elled via OM: Order cancelled - Patient discharged Performed By: #### L 500.2500, L100.0100 ####[facility] [address] [place], [address] GLU Normal 74-106 [facility] Comment on above: Result Comment: Canc elled via OM: Order cancelled - Patient discharged Performed By: #### L 500.2500, L100.0100 ####[facility] [address] [place], [address] Potassium Normal 3.5-5.1 [facility] Comment on above: Result Comment: Canc elled via OM: Order cancelled - Patient discharged Performed By: #### L 500.2500, L100.0100 ####[facility] [address] [place], [address] Basic Metabolic Profile (BMP) Normal 136-145 [facility] Comment on above: Result Comment: Canc elled via OM: Order cancelled - Patient discharged Performed By: #### L 500.2500, L100.0100 ####[facility] [address] [place], [address] CBC W/Diff, Automatedon 08- Absolute Neut Normal 2.0-7.7 [facility] Comment on above: Result Comment: Canc elled via OM: Order cancelled - Patient discharged Performed By: #### L 500.2500, L100.0100 ####[facility] [address] [place], [address] HCT Normal 40-54 [facility] Comment on above: Result Comment: Canc elled via OM: Order cancelled - Patient discharged Performed By: #### L 500.2500, L100.0100 ####[facility] [address] [place], [address] HGB Normal 13.0-16.5 [facility] Comment on above: Result Comment: Canc elled via OM: Order cancelled - Patient discharged Performed By: #### L 500.2500, L100.0100 ####[facility] [address] [place], [address] MCH Normal 27.0-32.0 [facility] Comment on above: Result Comment: Canc elled via OM: Order cancelled - Patient discharged Performed By: #### L 500.2500, L100.0100 ####[facility] [address] [place], [address] MCHC Normal 32-36 [facility] Comment on above: Result Comment: Canc elled via OM: Order cancelled - Patient discharged Performed By: #### L 500.2500, L100.0100 ####[facility] [address] [place], [address] MCV Normal 80-94 [facility] Comment on above: Result Comment: Canc elled via OM: Order cancelled - Patient discharged Performed By: #### L 500.2500, L100.0100 ####[facility] [address] [place], [address] NEUT% Normal 47-70 [facility] Comment on above: Result Comment: Canc elled via OM: Order cancelled - Patient discharged Performed By: #### L 500.2500, L100.0100 ####[facility] [address] [place], [address] PLT Normal 150-450 [facility] Comment on above: Result Comment: Canc elled via OM: Order cancelled - Patient discharged Performed By: #### L 500.2500, L100.0100 ####[facility] [address] [place], [address] RBC Normal 4.6-6.2 [facility] Comment on above: Result Comment: Canc elled via OM: Order cancelled - Patient discharged Performed By: #### L 500.2500, L100.0100 ####[facility] [address] [place], [address] RDW CV Normal 11.6-14.6 [facility] Comment on above: Result Comment: Canc elled via OM: Order cancelled - Patient discharged Performed By: #### L 500.2500, L100.0100 ####[facility] [address] [place], [address] RDW SD Normal 35.1-43.9 [facility] Comment on above: Result Comment: Canc elled via OM: Order cancelled - Patient discharged Performed By: #### L 500.2500, L100.0100 ####[facility] [address] [place], [address] WBC Normal 4.4-11.0 [facility] Comment on above: Result Comment: Canc elled via OM: Order cancelled - Patient discharged Performed By: #### L 500.2500, L100.0100 ####[facility] [address] [place], [address] Wound Cultureon 12-26-2023 List Antibiotics Las t 48 Hours? ROCEPHIN #1 Clinical correlation necessary, Possible skin contamination. #2 Previously Actinomyces odontolyticus. Susceptibility not normally performed on this organism. Bacteria Wnd Cult Bacteria Wnd Cult Staphylococcus pseudintermediu Amount Growth 1+ [place] odontolyticus Amount Growth 1+ Enterococcus faecalis Amount Growth Rare Staphylococcus pseudintermediu: REACTION Clindamycin Islt NOREEN 0.25 S Clindamycin.induced Susc Islt NEG Erythromycin Islt NOREEN <=0.25 S Gentamicin Islt NOREEN <=0.5 S Oxacillin Susc Islt <=0.25 S Tetracycline Islt NOREEN <=1 S Vancomycin Islt NOREEN 1 S Enterococcus faecalis: REACTION Ampicillin Islt NOREEN <=2 S Gentamicin Synergy Susc Islt SYN-S S Linezolid Islt NOREEN 2 S Streptomycin High Pot Susc Islt SYN-S S Vancomycin Islt NOREEN 1 S Normal [facility] Comment on above: Performed By: #### L 300.4310, L300.3900, L500.4050, L503.6620, L503.6005, L100.0100 #### [facility] [address] [place], [address] Basic Metabolic Profile (BMP )on 12-25-2023 BUN/CRE 21.9 RATIO High 10-20 [facility] Comment on above: Performed By: #### L 100.0100, L500.2500 ####[facility] [address] [place], [address] CA,Total 9.0 mg/dL Normal 8.5-10.1 [facility] Comment on above: Performed By: #### L 100.0100, L500.2500 ####[facility] [address] [place], [address] Chloride [Moles/Vol] 98 mmol/L Normal 98-107 [facility] Comment on above: Performed By: #### L 100.0100, L500.2500 ####[facility] [address] [place], [address] CO2 [Moles/Vol] 34.0 mmol/L High 21.0-32.0 [facility] Comment on above: Performed By: #### L 100.0100, L500.2500 ####[facility] [address] [place], [address] Creatinine [Mass/Vol] 0.78 mg/dL Normal 0.70-1.30 [facility] Comment on above: Result Comment: The validity of the calculated GFR GFRAA in patients over 70 years has not been determined. Clinical correlation is essential. Performed By: #### L 100.0100, L500.2500 ####[facility] [address] [place], [address] ECRCL 214.23 ml/min Normal [facility] Comment on above: Performed By: #### L 100.0100, L500.2500 ####[facility] [address] [place], [address] EST GFR - AA 135 mL/min Normal >60 [facility] Comment on above: Result Comment: Afri can [place] GFR Calc Performed By: #### L 100.0100, L500.2500 ####[facility] [address] [place], [address] GAP 5 Normal 5-15 [facility] Comment on above: Performed By: #### L 100.0100, L500.2500 ####[facility] [address] [place], [address] GFR/1.73 sq M.predicted among non-blacks MDRD (S/P/Bld) [Vol rate/Area] 112 mL/min/{1.73_m2} Normal >60 [facility] Comment on above: Result Comment: Non- GFR Calc Performed By: #### L 100.0100, L500.2500 ####[facility] [address] [place], [address] Glucose [Mass/Vol] 116 mg/dL High 74-106 [facility] Comment on above: Result Comment: Fast ing Glucose result from 100 to 125 mg/dL suggests IMPAIRED HOMEOSTASIS per A.D.A. criteria. Performed By: #### L 100.0100, L500.2500 ####[facility] [address] [place], [address] Potassium [Moles/Vol] 3.8 mmol/L Normal 3.5-5.1 [facility] Comment on above: Performed By: #### L 100.0100, L500.2500 ####[facility] [address] [place], [address] Sodium [Moles/Vol] 137 mmol/L Normal 136-145 [facility] Comment on above: Performed By: #### L 100.0100, L500.2500 ####[facility] [address] [place], [address] Urea nitrogen [Mass/Vol] 17 mg/dL Normal 7-18 [facility] Comment on above: Performed By: #### L 100.0100, L500.2500 ####[facility] [address] [place], [address] CBC W/Diff, Automatedon 08-2 Absolute Lymph 2.03 X10 3/uL Normal 0.83-4.51 [facility] Comment on above: Performed By: #### L 100.0100, L500.2500 #### [facility] [address] [place], [address] Absolute Neut 3.6 X10 3/uL Normal 2.0-7.7 [facility] Comment on above: Performed By: #### L 100.0100, L500.2500 #### [facility] [address] [place], [address] Basophils/100 WBC (Bld) 0.8 % Normal 0-1 [facility] Comment on above: Performed By: #### L 100.0100, L500.2500 #### [facility] [address] [place], [address] Eosinophils/100 WBC (Bld) 4.1 % Normal 0-5 [facility] Comment on above: Performed By: #### L 100.0100, L500.2500 #### [facility] [address] [place], [address] Erythrocyte distribution width (RBC) [Ratio] 14.2 % Normal 11.6-14.6 [facility] Comment on above: Performed By: #### L 100.0100, L500.2500 #### [facility] [address] [place], [address] Hematocrit (Bld) [Volume fraction] 51.2 % Normal 40-54 [facility] Comment on above: Performed By: #### L 100.0100, L500.2500 #### [facility] [address] [place], [address] Hemoglobin (Bld) [Mass/Vol] 16.2 g/dL Normal 13.0-16.5 [facility] Comment on above: Performed By: #### L 100.0100, L500.2500 #### [facility] [address] [place], [address] IG% 0.200 Normal 0.0-0.9 [facility] Comment on above: Result Comment: IG% - Immature Granulocytes (promyelocytes, myelocytes and metamyelocytes) > 1% indicates that a LEFT SHIFT is Present. Performed By: #### L 100.0100, L500.2500 #### [facility] [address] [place], [address] Lymphocytes/100 WBC (Bld) 31.7 % Normal 19-41 [facility] Comment on above: Performed By: #### L 100.0100, L500.2500 #### [facility] [address] [place], [address] MCH (RBC) [Entitic mass] 28.5 pg Normal 27.0-32.0 [facility] Comment on above: Performed By: #### L 100.0100, L500.2500 #### [facility] [address] [place], [address] MCHC (RBC) [Mass/Vol] 31.6 g/dL Low 32-36 [facility] Comment on above: Performed By: #### L 100.0100, L500.2500 #### [facility] [address] [place], [address] MCV (RBC) [Entitic vol] 90.0 fL Normal 80-94 [facility] Comment on above: Performed By: #### L 100.0100, L500.2500 #### [facility] [address] [place], [address] Monocytes/100 WBC (Bld) 8.0 % Normal 0-10 [facility] Comment on above: Performed By: #### L 100.0100, L500.2500 #### [facility] [address] [place], [address] Neutrophils/100 WBC (Bld) 55.2 % Normal 47-70 [facility] Comment on above: Performed By: #### L 100.0100, L500.2500 #### [facility] [address] [place], [address] Nucleated RBC (Bld) [#/Vol] 0 10*3/uL Normal 0-5 [facility] Comment on above: Performed By: #### L 100.0100, L500.2500 #### [facility] [address] [place], [address] Platelet mean volume (Bld) [Entitic vol] 9.4 fL Normal 6.2-12.0 [facility] Comment on above: Performed By: #### L 100.0100, L500.2500 #### [facility] [address] [place], [address] Platelets (Bld) [#/Vol] 271 10*3/uL Normal 150-450 [facility] Comment on above: Performed By: #### L 100.0100, L500.2500 #### [facility] [address] [place], [address] RBC (Bld) [#/Vol] 5.69 10*6/uL Normal 4.6-6.2 [facility] Comment on above: Performed By: #### L 100.0100, L500.2500 #### [facility] [address] [place], [address] RDW SD 46.6 fl High 35.1-43.9 [facility] Comment on above: Performed By: #### L 100.0100, L500.2500 #### [facility] [address] [place], [address] WBC (Bld) [#/Vol] 6.4 10*3/uL Normal 4.4-11.0 [facility] Comment on above: Performed By: #### L 100.0100, L500.2500 #### [facility] [address] [place], [address] Basic Metabolic Profile (BMP )on 12-24-2023 BUN/CRE 19.1 RATIO Normal 10-20 [facility] Comment on above: Performed By: #### L 300.4310, L300.3900, L500.4050, L503.6620, L503.6005, L100.0100 #### [facility] [address] [place], [address] CA,Total 8.4 mg/dL Low 8.5-10.1 [facility] Comment on above: Performed By: #### L 300.4310, L300.3900, L500.4050, L503.6620, L503.6005, L100.0100 #### [facility] [address] [place], [address] Chloride [Moles/Vol] 98 mmol/L Normal 98-107 [facility] Comment on above: Performed By: #### L 300.4310, L300.3900, L500.4050, L503.6620, L503.6005, L100.0100 #### [facility] [address] [place], [address] CO2 [Moles/Vol] 35.0 mmol/L High 21.0-32.0 [facility] Comment on above: Performed By: #### L 300.4310, L300.3900, L500.4050, L503.6620, L503.6005, L100.0100 #### [facility] [address] [place], [address] Creatinine [Mass/Vol] 0.73 mg/dL Normal 0.70-1.30 [facility] Comment on above: Result Comment: The validity of the calculated GFR GFRAA in patients over 70 years has not been determined. Clinical correlation is essential. Performed By: #### L 300.4310, L300.3900, L500.4050, L503.6620, L503.6005, L100.0100 #### [facility] [address] [place], [address] ECRCL 228.91 ml/min Normal [facility] Comment on above: Performed By: #### L 300.4310, L300.3900, L500.4050, L503.6620, L503.6005, L100.0100 #### [facility] [address] [place], [address] EST GFR - AA 144 mL/min Normal >60 [facility] Comment on above: Result Comment: Afri can [place] GFR Calc Performed By: #### L 300.4310, L300.3900, L500.4050, L503.6620, L503.6005, L100.0100 #### [facility] [address] [place], [address] GAP 3 Low 5-15 [facility] Comment on above: Performed By: #### L 300.4310, L300.3900, L500.4050, L503.6620, L503.6005, L100.0100 #### [facility] [address] [place], [address] GFR/1.73 sq M.predicted among non-blacks MDRD (S/P/Bld) [Vol rate/Area] 119 mL/min/{1.73_m2} Normal >60 [facility] Comment on above: Result Comment: Non- GFR Calc Performed By: #### L 300.4310, L300.3900, L500.4050, L503.6620, L503.6005, L100.0100 #### [facility] [address] [place], [address] Glucose [Mass/Vol] 142 mg/dL High 74-106 [facility] Comment on above: Result Comment: Fast ing Glucose result greater than or equal to 126 mg/dL suggests DIABETES MELLITUS per A.D.A. criteria. Performed By: #### L 300.4310, L300.3900, L500.4050, L503.6620, L503.6005, L100.0100 #### [facility] [address] [place], [address] Potassium [Moles/Vol] 3.5 mmol/L Normal 3.5-5.1 [facility] Comment on above: Performed By: #### L 300.4310, L300.3900, L500.4050, L503.6620, L503.6005, L100.0100 #### [facility] [address] [place], [address] Sodium [Moles/Vol] 136 mmol/L Normal 136-145 [facility] Comment on above: Performed By: #### L 300.4310, L300.3900, L500.4050, L503.6620, L503.6005, L100.0100 #### [facility] [address] [place], [address] Urea nitrogen [Mass/Vol] 14 mg/dL Normal 7-18 [facility] Comment on above: Performed By: #### L 300.4310, L300.3900, L500.4050, L503.6620, L503.6005, L100.0100 #### [facility] [address] [place], [address] CBC W/Diff, Automatedon 08-2 Absolute Lymph 1.92 X10 3/uL Normal 0.83-4.51 [facility] Comment on above: Performed By: #### L 300.4310, L300.3900, L500.4050, L503.6620, L503.6005, L100.0100 #### [facility] [address] [place], [address] Absolute Neut 3.6 X10 3/uL Normal 2.0-7.7 [facility] Comment on above: Performed By: #### L 300.4310, L300.3900, L500.4050, L503.6620, L503.6005, L100.0100 #### [facility] [address] [place], [address] Basophils/100 WBC (Bld) 0.8 % Normal 0-1 [facility] Comment on above: Performed By: #### L 300.4310, L300.3900, L500.4050, L503.6620, L503.6005, L100.0100 #### [facility] [address] [place], [address] Eosinophils/100 WBC (Bld) 4.2 % Normal 0-5 [facility] Comment on above: Performed By: #### L 300.4310, L300.3900, L500.4050, L503.6620, L503.6005, L100.0100 #### [facility] [address] [place], [address] Erythrocyte distribution width (RBC) [Ratio] 14.6 % Normal 11.6-14.6 [facility] Comment on above: Performed By: #### L 300.4310, L300.3900, L500.4050, L503.6620, L503.6005, L100.0100 #### [facility] [address] [place], [address] Hematocrit (Bld) [Volume fraction] 50.5 % Normal 40-54 [facility] Comment on above: Performed By: #### L 300.4310, L300.3900, L500.4050, L503.6620, L503.6005, L100.0100 #### [facility] [address] [place], [address] Hemoglobin (Bld) [Mass/Vol] 15.8 g/dL Normal 13.0-16.5 [facility] Comment on above: Performed By: #### L 300.4310, L300.3900, L500.4050, L503.6620, L503.6005, L100.0100 #### [facility] [address] [place], [address] IG% 0.300 Normal 0.0-0.9 [facility] Comment on above: Result Comment: IG% - Immature Granulocytes (promyelocytes, myelocytes and metamyelocytes) > 1% indicates that a LEFT SHIFT is Present. Performed By: #### L 300.4310, L300.3900, L500.4050, L503.6620, L503.6005, L100.0100 #### [facility] [address] [place], [address] Lymphocytes/100 WBC (Bld) 30.1 % Normal 19-41 [facility] Comment on above: Performed By: #### L 300.4310, L300.3900, L500.4050, L503.6620, L503.6005, L100.0100 #### [facility] [address] [place], [address] MCH (RBC) [Entitic mass] 28.5 pg Normal 27.0-32.0 [facility] Comment on above: Performed By: #### L 300.4310, L300.3900, L500.4050, L503.6620, L503.6005, L100.0100 #### [facility] [address] [place], [address] MCHC (RBC) [Mass/Vol] 31.3 g/dL Low 32-36 [facility] Comment on above: Performed By: #### L 300.4310, L300.3900, L500.4050, L503.6620, L503.6005, L100.0100 #### [facility] [address] [place], [address] MCV (RBC) [Entitic vol] 91.2 fL Normal 80-94 [facility] Comment on above: Performed By: #### L 300.4310, L300.3900, L500.4050, L503.6620, L503.6005, L100.0100 #### [facility] [address] [place], [address] Monocytes/100 WBC (Bld) 8.6 % Normal 0-10 [facility] Comment on above: Performed By: #### L 300.4310, L300.3900, L500.4050, L503.6620, L503.6005, L100.0100 #### [facility] [address] [place], [address] Neutrophils/100 WBC (Bld) 56.0 % Normal 47-70 [facility] Comment on above: Performed By: #### L 300.4310, L300.3900, L500.4050, L503.6620, L503.6005, L100.0100 #### [facility] [address] [place], [address] Nucleated RBC (Bld) [#/Vol] 0 10*3/uL Normal 0-5 [facility] Comment on above: Performed By: #### L 300.4310, L300.3900, L500.4050, L503.6620, L503.6005, L100.0100 #### [facility] [address] [place], [address] Platelet mean volume (Bld) [Entitic vol] 9.3 fL Normal 6.2-12.0 [facility] Comment on above: Performed By: #### L 300.4310, L300.3900, L500.4050, L503.6620, L503.6005, L100.0100 #### [facility] [address] [place], [address] Platelets (Bld) [#/Vol] 252 10*3/uL Normal 150-450 [facility] Comment on above: Performed By: #### L 300.4310, L300.3900, L500.4050, L503.6620, L503.6005, L100.0100 #### [facility] [address] [place], [address] RBC (Bld) [#/Vol] 5.54 10*6/uL Normal 4.6-6.2 [facility] Comment on above: Performed By: #### L 300.4310, L300.3900, L500.4050, L503.6620, L503.6005, L100.0100 #### [facility] [address] [place], [address] RDW SD 49.0 fl High 35.1-43.9 [facility] Comment on above: Performed By: #### L 300.4310, L300.3900, L500.4050, L503.6620, L503.6005, L100.0100 #### [facility] [address] [place], [address] WBC (Bld) [#/Vol] 6.4 10*3/uL Normal 4.4-11.0 [facility] Comment on above: Performed By: #### L 300.4310, L300.3900, L500.4050, L503.6620, L503.6005, L100.0100 #### [facility] [address] [place], [address] Magnesiumon 12-24-2023 Magnesium [Mass/Vol] 2.2 mg/dL Normal 1.6-2.6 [facility] Comment on above: Performed By: #### L 300.4310, L300.3900, L500.4050, L503.6620, L503.6005, L100.0100 #### [facility] [address] [place], [address] Phosphoruson 12-24-2023 Phosphate [Mass/Vol] 3.4 mg/dL Normal 2.5-4.9 [facility] Comment on above: Performed By: #### L 300.4310, L300.3900, L500.4050, L503.6620, L503.6005, L100.0100 #### [facility] [address] [place], [address] Urine Cultureon 12-24-2023 URC Below infection leve l. Mixed Gram Positive Organisms [place] Count 1000-10,000 MIXC Mixed contaminants. Submit a new specimen if indicated. Normal [facility] Comment on above: Performed By: #### M 100.2200, L400.0001 ####[facility] [address] [place], [address] Vancomycin, Trough Levelon 0 12-24-2023 VANCO, TROUGH 15.4 ug/mL High 5.0-15.0 [facility] Comment on above: Order Comment: Comme nts: Trough to be drawn 30 mins prior to scheduled [id number] Result Comment: VANC OMYCIN STANDARED DRUG THERAPY TROUGH LEVEL: 5.0 - 15.0 mg/L VANCOMYCIN HIGH INTENSITY THERAPY TROUGH LEVEL: 15.0 - 20.0 mg/L High Intensity therapy recommended for serious life threatening infections include: - Meningitis -Endocarditis -Pneumonia (Ventilator/Healtcare Associated) -Sepsis PLEASE CONTACT PHARMACY SERVICES (#[phone]) FOR INTERPRETATION OF RESULTS. Performed By: #### L 300.4310, L300.3900, L500.4050, L503.6620, L503.6005, L100.0100 #### [facility] [address] [place], [address] Basic Metabolic Profile (BMP )on 12-23-2023 BUN/CRE 12.2 RATIO Normal 10-20 [facility] Comment on above: Performed By: #### L 501.9520, L500.2500, L501.5200 ####[facility] [address] [place], [address] CA,Total 8.4 mg/dL Low 8.5-10.1 [facility] Comment on above: Performed By: #### L 501.9520, L500.2500, L501.5200 ####[facility] [address] [place], [address] Chloride [Moles/Vol] 101 mmol/L Normal 98-107 [facility] Comment on above: Performed By: #### L 501.9520, L500.2500, L501.5200 ####[facility] [address] [place], [address] CO2 [Moles/Vol] 30.0 mmol/L Normal 21.0-32.0 [facility] Comment on above: Performed By: #### L 501.9520, L500.2500, L501.5200 ####[facility] [address] [place], [address] Creatinine [Mass/Vol] 0.74 mg/dL Normal 0.70-1.30 [facility] Comment on above: Result Comment: The validity of the calculated GFR GFRAA in patients over 70 years has not been determined. Clinical correlation is essential. Performed By: #### L 501.9520, L500.2500, L501.5200 ####[facility] [address] [place], [address] ECRCL 220.46 ml/min Normal [facility] Comment on above: Performed By: #### L 501.9520, L500.2500, L501.5200 ####[facility] [address] [place], [address] EST GFR - AA 143 mL/min Normal >60 [facility] Comment on above: Result Comment: Afri can [place] GFR Calc Performed By: #### L 501.9520, L500.2500, L501.5200 ####[facility] [address] [place], [address] GAP 5 Normal 5-15 [facility] Comment on above: Performed By: #### L 501.9520, L500.2500, L501.5200 ####[facility] [address] [place], [address] GFR/1.73 sq M.predicted among non-blacks MDRD (S/P/Bld) [Vol rate/Area] 118 mL/min/{1.73_m2} Normal >60 [facility] Comment on above: Result Comment: Non- GFR Calc Performed By: #### L 501.9520, L500.2500, L501.5200 ####[facility] [address] [place], [address] Glucose [Mass/Vol] 120 mg/dL High 74-106 [facility] Comment on above: Result Comment: Fast ing Glucose result from 100 to 125 mg/dL suggests IMPAIRED HOMEOSTASIS per A.D.A. criteria. Performed By: #### L 501.9520, L500.2500, L501.5200 ####[facility] [address] [place], [address] Potassium [Moles/Vol] 3.7 mmol/L Normal 3.5-5.1 [facility] Comment on above: Performed By: #### L 501.9520, L500.2500, L501.5200 ####[facility] [address] [place], [address] Sodium [Moles/Vol] 136 mmol/L Normal 136-145 [facility] Comment on above: Performed By: #### L 501.9520, L500.2500, L501.5200 ####[facility] [address] [place], [address] Urea nitrogen [Mass/Vol] 9 mg/dL Normal 7-18 [facility] Comment on above: Performed By: #### L 501.9520, L500.2500, L501.5200 ####[facility] [address] [place], [address] CBC W/Diff, Automatedon 12-01-2023 Absolute Lymph 1.69 X10 3/uL Normal 0.83-4.51 [facility] Comment on above: Performed By: #### L 300.4310, L300.3900, L500.4050, L503.6620, L503.6005, L100.0100 #### [facility] [address] [place], [address] Absolute Neut 3.9 X10 3/uL Normal 2.0-7.7 [facility] Comment on above: Performed By: #### L 300.4310, L300.3900, L500.4050, L503.6620, L503.6005, L100.0100 #### [facility] [address] [place], [address] Basophils/100 WBC (Bld) 0.8 % Normal 0-1 [facility] Comment on above: Performed By: #### L 300.4310, L300.3900, L500.4050, L503.6620, L503.6005, L100.0100 #### [facility] [address] [place], [address] Eosinophils/100 WBC (Bld) 3.6 % Normal 0-5 [facility] Comment on above: Performed By: #### L 300.4310, L300.3900, L500.4050, L503.6620, L503.6005, L100.0100 #### [facility] [address] [place], [address] Erythrocyte distribution width (RBC) [Ratio] 14.6 % Normal 11.6-14.6 [facility] Comment on above: Performed By: #### L 300.4310, L300.3900, L500.4050, L503.6620, L503.6005, L100.0100 #### [facility] [address] [place], [address] Hematocrit (Bld) [Volume fraction] 51.2 % Normal 40-54 [facility] Comment on above: Performed By: #### L 300.4310, L300.3900, L500.4050, L503.6620, L503.6005, L100.0100 #### [facility] [address] [place], [address] Hemoglobin (Bld) [Mass/Vol] 16.1 g/dL Normal 13.0-16.5 [facility] Comment on above: Performed By: #### L 300.4310, L300.3900, L500.4050, L503.6620, L503.6005, L100.0100 #### [facility] [facility] [address] [place], [address] IG% 0.200 Normal 0.0-0.9 [facility] Comment on above: Result Comment: IG% - Immature Granulocytes (promyelocytes, myelocytes and metamyelocytes) > 1% indicates that a LEFT SHIFT is Present. Performed By: #### L 300.4310, L300.3900, L500.4050, L503.6620, L503.6005, L100.0100 #### [facility] [address] [place], [address] Lymphocytes/100 WBC (Bld) 25.7 % Normal 19-41 [facility] Comment on above: Performed By: #### L 300.4310, L300.3900, L500.4050, L503.6620, L503.6005, L100.0100 #### [facility] [address] [place], [address] MCH (RBC) [Entitic mass] 28.6 pg Normal 27.0-32.0 [facility] Comment on above: Performed By: #### L 300.4310, L300.3900, L500.4050, L503.6620, L503.6005, L100.0100 #### [facility] [address] [place], [address] MCHC (RBC) [Mass/Vol] 31.4 g/dL Low 32-36 [facility] Comment on above: Performed By: #### L 300.4310, L300.3900, L500.4050, L503.6620, L503.6005, L100.0100 #### [facility] [address] [place], [address] MCV (RBC) [Entitic vol] 91.1 fL Normal 80-94 [facility] Comment on above: Performed By: #### L 300.4310, L300.3900, L500.4050, L503.6620, L503.6005, L100.0100 #### [facility] [address] [place], [address] Monocytes/100 WBC (Bld) 10.8 % High 0-10 [facility] Comment on above: Performed By: #### L 300.4310, L300.3900, L500.4050, L503.6620, L503.6005, L100.0100 #### [facility] [address] [place], [address] Neutrophils/100 WBC (Bld) 58.9 % Normal 47-70 [facility] Comment on above: Performed By: #### L 300.4310, L300.3900, L500.4050, L503.6620, L503.6005, L100.0100 #### [facility] [address] [place], [address] Nucleated RBC (Bld) [#/Vol] 0 10*3/uL Normal 0-5 [facility] Comment on above: Performed By: #### L 300.4310, L300.3900, L500.4050, L503.6620, L503.6005, L100.0100 #### [facility] [address] [place], [address] Platelet mean volume (Bld) [Entitic vol] 9.3 fL Normal 6.2-12.0 [facility] Comment on above: Performed By: #### L 300.4310, L300.3900, L500.4050, L503.6620, L503.6005, L100.0100 #### [facility] [address] [place], [address] Platelets (Bld) [#/Vol] 262 10*3/uL Normal 150-450 [facility] Comment on above: Performed By: #### L 300.4310, L300.3900, L500.4050, L503.6620, L503.6005, L100.0100 #### [facility] [address] [place], [address] RBC (Bld) [#/Vol] 5.62 10*6/uL Normal 4.6-6.2 [facility] Comment on above: Performed By: #### L 300.4310, L300.3900, L500.4050, L503.6620, L503.6005, L100.0100 #### [facility] [address] [place], [address] RDW SD 48.8 fl High 35.1-43.9 [facility] Comment on above: Performed By: #### L 300.4310, L300.3900, L500.4050, L503.6620, L503.6005, L100.0100 #### [facility] [address] [place], [address] WBC (Bld) [#/Vol] 6.6 10*3/uL Normal 4.4-11.0 [facility] Comment on above: Performed By: #### L 300.4310, L300.3900, L500.4050, L503.6620, L503.6005, L100.0100 #### [facility] [address] [place], [address] Gram Stainon 12-23-2023 GS List Antibiotics Las t 48 Hours? ROCEPHIN Gram Stain 1+ Gram positive cocci Rare Epithelial cells 2+ White Blood Cells No Epithelial cells [facility] Comment on above: Performed By: #### L 300.4310, L300.3900, L500.4050, L503.6620, L503.6005, L100.0100 #### [facility] [address] [place], [address] [id number] 12-23-2023 [id number] Normal Reference Ran ge = Negative MRSA/SAUR WOUND PCR GeneXpert Instrument, PCR method MRSA PCR MRSA NEGATIVE STAPH. AUREUS PCR STAPH AUREUS POSITIVEA STAPH. AUREUS PCR STAPH AUREUS POSITIVEA * This is an amended result. * A prior result that was reported as final has been changed. 12/23/23819 by JEM Espinosa [facility] Comment on above: Performed By: #### L 300.4310, L300.3900, L500.4050, L503.6620, L503.6005, L100.0100 #### [facility] [address] [place], [address] Magnesiumon 12-23-2023 Magnesium [Mass/Vol] 2.2 mg/dL Normal 1.6-2.6 [facility] Comment on above: Performed By: #### L 501.9520, L500.2500, L501.5200 ####[facility] [address] [place], [address] Phosphoruson 12-23-2023 Phosphate [Mass/Vol] 4.1 mg/dL Normal 2.5-4.9 [facility] Comment on above: Performed By: #### L 300.4310, L300.3900, L500.4050, L503.6620, L503.6005, L100.0100 #### [facility] [address] [place], [address] Thyroid Stim Hormone (TSH)on 12-23-2023 TSH 3.150 uIU/mL Normal 0.358-3.74 0 [facility] Comment on above: Performed By: #### L 501.9520, L500.2500, L501.5200 ####[facility] [address] [place], [address] Venous Duplex US - Sammy Extre mon 12-23-2023 Venous Duplex US - Sammy Extrem [facility] [address] [place] [address] Venous Duplex US - Sammy Extrem 12/23/23 1012 MR#: [id number] Acct: [id number] Name: AZALIA MATTHEW II Rep #: [id number] : 1970 53 From: Francesco Antoine MD Attending Dr: Dr. Isma Parkinson MD Status: ADM IN Ordering Dr: Irena Pérez DO Date: 12/23/23 Location: MS3 Sex: M C Admitted: 12/22/23 Reason For Study: BLE Swelling RIGHT LEFT GSV is normal. GSV is normal. CFV is compressible, spontaneous, phasic, CFV is compressible, spontaneous, phasic, competent and demonstrates normal competent, and demonstrates normal augmentation. augmentation. FV is compressible, spontaneous, phasic, FV is compressible, spontaneous, phasic, competent and demonstrates normal competent and demonstrates normal augmentation. augmentation. POP V is compressible, spontaneous, phasic, POP V is compressible, spontaneous, phasic, competent and demonstrates normal competent and demonstrates normal augmentation. augmentation. T/P Trunk is compressible. T/P Trunk is compressible. PTV is compressible. PTV is compressible. RT PerV is compressible. LT PerV is compressible. Procedure This is a venous duplex using B-mode, color flow and spectral Doppler. Exam performed in department. The exam was diagnostic. The study was technically difficult. Limited views were obtained. A preliminary report was called and/or faxed to M/S 3 RN. VL/Venous Duplex US - Sammy Extrem Interpretation Summary Deep veins of the lower extremities are bilaterally patent and compressible segmentally. There is no evidence of deep vein thrombosis on either side. Valvular competence appears intact within the proximal deep venous systems bilaterally. The great saphenous veins appear bilaterally patent and compressible segmentally. Ordering Physician: Irena Pérez Performed By: Chris Lozada, RVT 12/23/23 1438 Date Francesco Antoine MD CC: Dr. Isma Parkinson MD; Dr. Irena Pérez, DO; No Primary Care Physician Date Dictated: 12/23/23 1012 Date Transcribed: 12/23/23 1438 Silk Screen Printer Helper: Signed Normal [facility] BNP,B-Type NATRIURETIC PEPTI [place] 12-22-2023 Natriuretic peptide B (Bld) [Mass/Vol] 21.3 pg/mL Normal 0-100 [facility] Comment on above: Performed By: #### L 300.4310, L300.3900, L500.4050, L503.6620, L503.6005, L100.0100 #### [facility] [address] [place], [address] CBC W/Diff, Automatedon 08-2 2-2023 Absolute Lymph 2.21 X10 3/uL Normal 0.83-4.51 [facility] Comment on above: Performed By: #### L 300.4310, L300.3900, L500.4050, L503.6620, L503.6005, L100.0100 #### [facility] [address] [place], [address] Absolute Neut 6.9 X10 3/uL Normal 2.0-7.7 [facility] Comment on above: Performed By: #### L 300.4310, L300.3900, L500.4050, L503.6620, L503.6005, L100.0100 #### [facility] [address] [place], [address] Basophils/100 WBC (Bld) 0.3 % Normal 0-1 [facility] Comment on above: Performed By: #### L 300.4310, L300.3900, L500.4050, L503.6620, L503.6005, L100.0100 #### [facility] [address] [place], [address] Eosinophils/100 WBC (Bld) 2.0 % Normal 0-5 [facility] Comment on above: Performed By: #### L 300.4310, L300.3900, L500.4050, L503.6620, L503.6005, L100.0100 #### [facility] [address] [place], [address] Erythrocyte distribution width (RBC) [Ratio] 14.8 % High 11.6-14.6 [facility] Comment on above: Performed By: #### L 300.4310, L300.3900, L500.4050, L503.6620, L503.6005, L100.0100 #### [facility] [address] [place], [address] Hematocrit (Bld) [Volume fraction] 51.8 % Normal 40-54 [facility] Comment on above: Performed By: #### L 300.4310, L300.3900, L500.4050, L503.6620, L503.6005, L100.0100 #### [facility] [address] [place], [address] Hemoglobin (Bld) [Mass/Vol] 16.8 g/dL High 13.0-16.5 [facility] Comment on above: Performed By: #### L 300.4310, L300.3900, L500.4050, L503.6620, L503.6005, L100.0100 #### [facility] [address] [place], [address] IG% 0.300 Normal 0.0-0.9 [facility] Comment on above: Result Comment: IG% - Immature Granulocytes (promyelocytes, myelocytes and metamyelocytes) > 1% indicates that a LEFT SHIFT is Present. Performed By: #### L 300.4310, L300.3900, L500.4050, L503.6620, L503.6005, L100.0100 #### [facility] [address] [place], [address] Lymphocytes/100 WBC (Bld) 21.6 % Normal 19-41 [facility] Comment on above: Performed By: #### L 300.4310, L300.3900, L500.4050, L503.6620, L503.6005, L100.0100 #### [facility] [address] [place], [address] MCH (RBC) [Entitic mass] 29.2 pg Normal 27.0-32.0 [facility] Comment on above: Performed By: #### L 300.4310, L300.3900, L500.4050, L503.6620, L503.6005, L100.0100 #### [facility] [address] [place], [address] MCHC (RBC) [Mass/Vol] 32.4 g/dL Normal 32-36 [facility] Comment on above: Performed By: #### L 300.4310, L300.3900, L500.4050, L503.6620, L503.6005, L100.0100 #### [facility] [address] [place], [address] MCV (RBC) [Entitic vol] 89.9 fL Normal 80-94 [facility] Comment on above: Performed By: #### L 300.4310, L300.3900, L500.4050, L503.6620, L503.6005, L100.0100 #### [facility] [address] [place], [address] Monocytes/100 WBC (Bld) 8.2 % Normal 0-10 [facility] Comment on above: Performed By: #### L 300.4310, L300.3900, L500.4050, L503.6620, L503.6005, L100.0100 #### [facility] [address] [place], [address] Neutrophils/100 WBC (Bld) 67.6 % Normal 47-70 [facility] Comment on above: Performed By: #### L 300.4310, L300.3900, L500.4050, L503.6620, L503.6005, L100.0100 #### [facility] [address] [place], [address] Nucleated RBC (Bld) [#/Vol] 0 10*3/uL Normal 0-5 [facility] Comment on above: Performed By: #### L 300.4310, L300.3900, L500.4050, L503.6620, L503.6005, L100.0100 #### [facility] [address] [place], [address] Platelet mean volume (Bld) [Entitic vol] 10.4 fL Normal 6.2-12.0 [facility] Comment on above: Performed By: #### L 300.4310, L300.3900, L500.4050, L503.6620, L503.6005, L100.0100 #### [facility] [address] [place], [address] Platelets (Bld) [#/Vol] 324 10*3/uL Normal 150-450 [facility] Comment on above: Performed By: #### L 300.4310, L300.3900, L500.4050, L503.6620, L503.6005, L100.0100 #### [facility] [address] [place], [address] RBC (Bld) [#/Vol] 5.76 10*6/uL Normal 4.6-6.2 [facility] Comment on above: Performed By: #### L 300.4310, L300.3900, L500.4050, L503.6620, L503.6005, L100.0100 #### [facility] [address] [place], [address] RDW SD 48.8 fl High 35.1-43.9 [facility] Comment on above: Performed By: #### L 300.4310, L300.3900, L500.4050, L503.6620, L503.6005, L100.0100 #### [facility] [address] [place], [address] WBC (Bld) [#/Vol] 10.2 10*3/uL Normal 4.4-11.0 [facility] Comment on above: Performed By: #### L 300.4310, L300.3900, L500.4050, L503.6620, L503.6005, L100.0100 #### [facility] [address] [place], [address] Chest 1 View (Portable)on Chest 1 View (Portable) [facility] Imaging Services [address] [place] [address] Chest 1 View (Portable) MR#: [id number] Acct: [id number] Name: AZALIA MATTHEW II Rep #: [id number] : 1970 M 53 From: Fernando Thomas MD PCP: Care Physician,No Primary Status: REG ER Study: Chest 1 View (Portable) Date of Exam: 12/22/23 Exam# [id number] Ordering Dr: Brennon Steiner DO 0:[id number] INDICATION: sob EXAMINATION/TECHNIQUE: X-RAY - XR Chest 1 View COMPARISON: None. FINDINGS: LINES/DEVICES: None. LUNGS: No consolidation or evidence of an effusion. No evidence of edema or a pneumothorax. Pulmonary vascular congestion. MEDIASTINUM AND CARDIOVASCULAR STRUCTURES: Cardiac silhouette is normal in size and contour. Mediastinum is unremarkable. BONES AND SOFT TISSUES: No acute abnormality. RAD/Chest 1 View (Portable) IMPRESSION: Pulmonary vascular congestion. Electronically Signed: Fernando Thomas DO at 22:05 EDT , CC: Dr. Brennon Steiner DO; No Primary Care Physician Silk Screen Printer Helper: Signed Normal [facility] Comprehensive Metabolic Prof benigno 12-22-2023 Albumin [Mass/Vol] 3.3 g/dL Normal 3.2-5.0 [facility] Comment on above: Performed By: #### L 300.4310, L300.3900, L500.4050, L503.6620, L503.6005, L100.0100 #### [facility] [address] [place], [address] Albumin/Globulin [Mass ratio] 0.7 {ratio} Low 0.9-2.4 [facility] Comment on above: Performed By: #### L 300.4310, L300.3900, L500.4050, L503.6620, L503.6005, L100.0100 #### [facility] [address] [place], [address] ALK P 192 U/L High 45-117 [facility] Comment on above: Performed By: #### L 300.4310, L300.3900, L500.4050, L503.6620, L503.6005, L100.0100 #### [facility] [address] [place], [address] ALT [Catalytic activity/Vol] 28 U/L Normal 16-61 [facility] Comment on above: Performed By: #### L 300.4310, L300.3900, L500.4050, L503.6620, L503.6005, L100.0100 #### [facility] [address] [place], [address] AST [Catalytic activity/Vol] 24 U/L Normal 15-37 [facility] Comment on above: Result Comment: Slig ht Hemolysis, Result may be falsely increased. Performed By: #### L 300.4310, L300.3900, L500.4050, L503.6620, L503.6005, L100.0100 #### [facility] [address] [place], [address] Bilirubin [Mass/Vol] 0.90 mg/dL Normal 0.20-1.00 [facility] Comment on above: Result Comment: For patients on eltrombopag therapy, use of Dimension [place] TBIL is not recommended. Performed By: #### L 300.4310, L300.3900, L500.4050, L503.6620, L503.6005, L100.0100 #### [facility] [address] [place], [address] BUN/CRE 10.8 RATIO Normal 10-20 [facility] Comment on above: Performed By: #### L 300.4310, L300.3900, L500.4050, L503.6620, L503.6005, L100.0100 #### [facility] [address] [place], [address] CA,Total 9.0 mg/dL Normal 8.5-10.1 [facility] Comment on above: Performed By: #### L 300.4310, L300.3900, L500.4050, L503.6620, L503.6005, L100.0100 #### [facility] [address] [place], [address] Chloride [Moles/Vol] 100 mmol/L Normal 98-107 [facility] Comment on above: Performed By: #### L 300.4310, L300.3900, L500.4050, L503.6620, L503.6005, L100.0100 #### [facility] [address] [place], [address] CO2 [Moles/Vol] 33.0 mmol/L High 21.0-32.0 [facility] Comment on above: Performed By: #### L 300.4310, L300.3900, L500.4050, L503.6620, L503.6005, L100.0100 #### [facility] [address] [place], [address] Creatinine [Mass/Vol] 0.84 mg/dL Normal 0.70-1.30 [facility] Comment on above: Result Comment: The validity of the calculated GFR GFRAA in patients over 70 years has not been determined. Clinical correlation is essential. Performed By: #### L 300.4310, L300.3900, L500.4050, L503.6620, L503.6005, L100.0100 #### [facility] [address] [place], [address] EST GFR - AA 124 mL/min Normal >60 [facility] Comment on above: Result Comment: Afri can [place] GFR Calc Performed By: #### L 300.4310, L300.3900, L500.4050, L503.6620, L503.6005, L100.0100 #### [facility] [address] [place], [address] GAP 4 Low 5-15 [facility] Comment on above: Performed By: #### L 300.4310, L300.3900, L500.4050, L503.6620, L503.6005, L100.0100 #### [facility] [address] [place], [address] GFR/1.73 sq M.predicted among non-blacks MDRD (S/P/Bld) [Vol rate/Area] 103 mL/min/{1.73_m2} Normal >60 [facility] Comment on above: Result Comment: Non- GFR Calc Performed By: #### L 300.4310, L300.3900, L500.4050, L503.6620, L503.6005, L100.0100 #### [facility] [address] [place], [address] Globulin (S) [Mass/Vol] 4.9 g/dL High 2.2-4.2 [facility] Comment on above: Performed By: #### L 300.4310, L300.3900, L500.4050, L503.6620, L503.6005, L100.0100 #### [facility] [address] [place], [address] Glucose [Mass/Vol] 98 mg/dL Normal 74-106 [facility] Comment on above: Performed By: #### L 300.4310, L300.3900, L500.4050, L503.6620, L503.6005, L100.0100 #### [facility] [address] [place], [address] Potassium [Moles/Vol] 4.0 mmol/L Normal 3.5-5.1 [facility] Comment on above: Result Comment: Slig ht Hemolysis, Result may be falsely increased. Performed By: #### L 300.4310, L300.3900, L500.4050, L503.6620, L503.6005, L100.0100 #### [facility] [address] [place], [address] Sodium [Moles/Vol] 137 mmol/L Normal 136-145 [facility] Comment on above: Performed By: #### L 300.4310, L300.3900, L500.4050, L503.6620, L503.6005, L100.0100 #### [facility] [address] [place], [address] T PROT 8.2 g/dL Normal 6.4-8.2 [facility] Comment on above: Performed By: #### L 300.4310, L300.3900, L500.4050, L503.6620, L503.6005, L100.0100 #### [facility] [address] [place], [address] Urea nitrogen [Mass/Vol] 9 mg/dL Normal 7-18 [facility] Comment on above: Performed By: #### L 300.4310, L300.3900, L500.4050, L503.6620, L503.6005, L100.0100 #### [facility] [address] [place], [address] Echo Complete W/ Contraston 12-22-2023 Echo Complete W/ Contrast [facility] [address] [place] [address] Echo Complete W/ Contrast 12/23/23 0729 MR#: [id number] Acct: [id number] Name: AZALIA MATTHEW II Rep #: [id number] : 1970 53 From: Kareem Rizzo MD Attending Dr: Dr. Isma Parkinson MD Status: ADM IN Ordering Dr: Irena Pérez DO Date: 12/22/23 Location: MS3 Sex: M C Admitted: 12/22/23 Reason For Study: CHF Procedure This was a 2D Doppler, Color Flow transthoracic echocardiogram. The study was technically difficult. The study was technically limited. Limited views were obtained. Contrast injection was performed. Due to body habitus. Exam performed portable in patient room. Left Ventricle The left ventricle is not well visualized. The left ventricular ejection fraction is 65 %. Unable to assess diastolic function based on available data. Right Ventricle The right ventricle is not well visualized. Atria The left atrium is not well visualized. The right atrium is not well visualized. Mitral Valve Mitral valve not well visualized. Tricuspid Valve The tricuspid valve is not well visualized. Aortic Valve The aortic valve is not well visualized. Pulmonic Valve The pulmonic valve is not well visualized. Great Vessels The aortic root is not well visualized. Pericardium/Pleural No pericardial effusion. Medication Diluted definity 9.0ml given slow IV push to enhance endocardial definition. MMode/2D Measurements Calculations LVIDd: 5.4 cm IVSd: 1.2 cm Ao root diam: 3.0 cm LVIDs: 3.5 cm LVPWd: 1.2 cm FS: 35.7 % LVAd ap4: 34.0 cm2 SV(MOD-sp4): 68.8 ml SV(sp4-el): 71.7 ml LVLd ap4: 8.6 cm EDV(MOD-sp4): 112.2 ml EDV(sp4-el): 114.6 ml LVAs ap4: 20.0 cm2 LVLs ap4: 7.9 cm ESV(MOD-sp4): 43.4 ml ESV(sp4-el): 42.9 ml EF(MOD-sp4): 61.3 % EF(sp4-el): 62.5 % LA dimension(2D): 3.2 cm Doppler Measurements Calculations PA V2 max: 86.7 cm/sec PA V2 mean: 55.5 cm/sec PA V2 VTI: 14.4 cm ECHO/Echo Complete W/ Contrast Interpretation Summary Technically difficult study with suboptimal images. The left ventricular ejection fraction is estimated at 65%. Ordering Physician: Irena Pérez Referring Physician: SARAI PCP Performed By: Farheen Mendez RDCS, RVT 12/23/23999 Date Kareem Rizzo MD CC: Dr. Isma Parkinsno MD; Dr. Irena Pérez DO; No Primary Care Physician Date Dictated: 12/23/23728 Date Transcribed: 12/23/23 1000 Silk Screen Printer Helper: Signed Normal [facility] Emergency Department Summary on 12-22-2023 Emergency Department Summary [facility] Medical Records Department [address] [place] [address] Emergency Department Summary 12/22/23 MR#: [id number] Acct: [id number] Name: AZALIA MATTHEW II Rep #: [id number] : 1970 53 From: Brennon Steiner DO PCP: Care Physician,No Primary Status:ADM IN Location: [place] [address] HPI History of Present Illness Chief Complaint: Wound Narrative Narrative: Patient is a 53-year-old male with no known significant past medical history does not follow with a physician on regular basis who presents to the [facility] part with a chief complaint of bilateral lower extremity wounds. He states that he was recently admitted to [facility] for wounds to the bilateral lower extremities he states that he was given injections into his abdomen and that made him pee to get fluid off of him he states that he was given IV antibiotics however he states that he has not been on any antibiotics for quite some time now. He states that he has increasing redness and pain in the lower extremities prompting him to come here for further evaluation management today. Patient rates his pain a 7 out of 10 on exam bilaterally. Patient denies any history of blood clots. [facility] Medical History (Updated 12/22/23 @ 22:[address] Brennon Steiner DO) Tobacco abuse History of cellulitis Morbid obesity Medical History no medical history Allergy/AdvReac Type Severity Reaction Status Date / Time No Known Allergies Allergy Verified 12/22/23 18:07 Family History no significant family his Surgical History no surgical history Social History Smoking Status: Current every day smoker tobacco type: cigarettes ROS ROS ED ROS Narrative Constitutional: Complains of chills denies any fevers, headaches, lightness, dizziness Eyes: Denies any changes in vision double vision blurry vision Cardiovascular: Denies chest pain or palpitations Respiratory: Denies coughing wheezing shortness of breath Abdomen: Denies abdominal pain nausea vomit diarrhea : Denies any urinary symptoms Neurological: Denies numbness, weakness, tingling Musculoskeletal: Complains of bilateral extremity swelling and wounds as noted above Skin: Complains of lower extremity wounds as noted above EXAM Physical Exam Narrative Exam Narrative: General: Patient lying in bed did appear to be uncomfortable secondary to his leg pain Head: Atraumatic, normocephalic Eyes: PERRL bilaterally, EOMI bilateral, no conjunctival injection noted Neck: Soft, supple, trach midline Cardiovascular: Regular rate and rhythm no murmurs gallops rubs noted Respiratory: Clear to auscultation bilaterally Abdomen: Soft, no tenderness palpation Extremities: Patient has 2+ pitting edema in the bilateral lower extremities, +4/5 strength noted in the bilateral upper and lower extremities Neurological: Patient is following commands knew that he was at [facility] years 2023 Skin: Patient has bilateral lower extremity cellulitis noted on exam with chronic wounds in the lower extremities no purulent drainage noted Const Vital Signs: 12/22/23 18:07 12/22/23 20:07 12/22/23 20:26 Temperature 97.6 F L Temperature Source Temporal Pulse Rate 90 78 Respiratory Rate 18 17 Blood Pressure 134/78 H 147/80 H Blood Pressure Mean 96 102 Pulse Ox 94 98 Oxygen Delivery Method Room Air Room Air Room Air 12/22/23 21:27 12/22/23 22:00 12/22/23 22:03 Temperature 98 F 98.4 F Temperature Source Temporal Pulse Rate 78 63 84 Respiratory Rate 17 13 16 Blood Pressure 168/105 H 102/76 130/78 H Blood Pressure Mean 126 84 95 Pulse Ox 99 97 98 Oxygen Delivery Method MDM MDM MDM Narrative Medical decision making narrative: Patient is a 53-year-old male who presented to the emergency department chief complaint of bilateral lower extremity swelling and wounds. Patient will have a workup performed here on the differential diagnose includes Melamin to bilateral lower extremity cellulitis, CHF, osteomyelitis. Once workup is obtained reviewed he will be reevaluated. Patient will be given IV fluids however will not be given the full 30 cc/kg bolus as there is concern for a component of CHF exacerbation/volume overload. Patient be given vancomycin and Rocephin. Once the labs are obtained and reviewed he will be reevaluated. Patient CBC reviewed and was largely unremarkable no evidence leukocytosis white blood count normal at 10.2, hemoglobin was 16.8, platelet count normal at 324. Patient's INR normal 1.1, sodium normal 137, potassium normal at 4, creatinine normal at 0.84. Patient's AST and ALT were normal at 24 and 28 respectively, lactic acid normal 1.8, proBNP normal at 21.3. Patient's EKG reviewed showed sinus rhythm with a rate (more content not included)... Normal [facility] H AND P Exam - [facility] 12-22-2023 H&P Exam - Hospitalist [facility] Medical Records Department [address] [place] [address] H P Exam - Hospitalist 12/22/233 MR#: [id number] Acct: [id number] Name: AZALIA MATTHEW II Rep #: [id number] : 1970 53 From: Irena Pérez DO PCP: Care Physician,No Primary Status:ADM IN Location: [facility] HPI - General General Date of Admission: 12/22/23 Date of Service: 12/22/23 Chief Complaint: Bilateral leg pain, swelling, wounds HPI Narrative AZALIA MATTHEW, is a 53 M who presented to the emergency department at [facility] on 12/22/2019 for with worsening bilateral lower extremity swelling, pain, and wounds that have been present for some time. The patient reports that he had recently been admitted at [facility]. He reported that since his discharge he is getting worse. He denies any knowledge of being treated with antibiotics there and states he takes no chronic medications and has been on no medications recently. He has a friend at the bedside who has been assisting in taking care of him. 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 He states he was told his oxygen levels drop at night but have never been tested for sleep apnea. He denies any chest pain or shortness of breath but states his swelling in his legs has been worsening. He does admit to tobacco abuse. Vital signs on presentation showed temperature of 97.6, heart rate 90, blood pressure 134/78, pulse ox 94% on room air. CBC shows erythrocytosis but is otherwise unremarkable with no leukocytosis or left shift. Coags are normal. Chemistry panel is normal except elevated serum bicarb of 33 which I highly suspect is chronic. Glucose level is normal. Lactic acid was 1.8. Liver functions are unremarkable. UA is not consistent with infection. Chest x-ray shows pulmonary vascular congestion but is otherwise unremarkable. Bilateral tibia and fibula films shows soft tissue changes with no deep changes or pocketing/abscess. He was treated with ceftriaxone emergency department and request for admission was made. [facility] Medical History (Updated 12/23/23 @ 00:50 by Cleo Moses) COPD (chronic obstructive pulmonary disease) Tobacco abuse History of cellulitis Morbid obesity Medical History no medical history Home Medications ???Medication ???Instructions ???Recorded ???Last Taken ???Type NK 12/22/23 Unknown History Allergy/AdvReac Type Severity Reaction Status Date / Time No Known Allergies Allergy Verified 12/22/23 18:07 Family History no significant family his no significant family history Surgical History (Updated 12/23/23 @ 00:50 by Cleo Moses) History of appendectomy Surgical History no surgical history Social History (Updated 12/23/23 @ 00:[address] 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 Smoking Status: Current every day smoker tobacco type: cigarettes alcohol intake: never substance use type: does not use ROS Constitutional Constitutional: Denies anorexia, change in weight, chills, fatigue, fever(s), malaise, night sweats, weakness or other Eyes Eyes: Denies blurry vision, change in eye color, change in vision, discharge from eye(s), double vision, erythema, eye pain, loss of vision or other ENT HEENT: Denies abnormal hearing, dysphagia, ear pain, epistaxis, headache(s), hearing loss, nasal congestion, nasal discharge, post nasal drip, sinus pressure, sore throat or other Cardiovascular Cardiovascular: Reports edema; Denies chest pain, claudication, dyspnea on exertion, lightheadedness, orthopnea, palpitations, paroxysmal nocturnal dyspnea, rapid heart rate, syncope or other Respiratory/Chest Respiratory/Chest: Denies cough, dyspnea, excessive phlegm production, hemoptysis, productive cough, shortness of breath at rest, shortness of breath with exertion, wheezing or other Gastrointestinal Gastrointestinal: Denies abdominal pain, coffee ground emesis, constipation, diarrhea, dyspepsia, hematemesis, hematochezia, loose stools, melena, nausea, vomiting or other Genitourinary Genitourinary: Denies burning urination, difficulty urinating, dysuria, hematuria, nocturia, urinary frequency, urinary hesitancy, urinary incontinence, urinary urgency or other Musculoskeletal Musculoskeletal: Reports back pain, joint pain and joint stiffness; Denies arthralgias, joint swelling, myalgias, neck pain or other Integumentary Integumentary: Reports dry skin, lesions, rash and wounds; Denies jaundice, new lesions, pruritus or other Neurologic Neurologic: Denies abnormal gait, abnormal speech, confusion, disequilibrium, dizziness, focal weakness, headache(s), numbness, paresthesias, seizure-like activity, seizures, syncope, tingling, tremor(s) or other Psychiatric Psychiatric: Denies anxiety, depression, homicidal (more content not included)... Normal [facility] Lactic Acidon 12-22-2023 Lactate [Moles/Vol] 1.8 mmol/L Normal 0.4-1.9 [facility] Comment on above: Order Comment: Y Performed By: #### L 300.4310, L300.3900, L500.4050, L503.6620, L503.6005, L100.0100 #### [facility] [address] [place], [address] Partial Thromboplast Timeon 12-22-2023 aPTT Coag (Bld) [Time] 29.6 s Normal 24.1-36.2 [facility] Comment on above: Performed By: #### L 300.4310, L300.3900, L500.4050, L503.6620, L503.6005, L100.0100 #### [facility] [address] [place], [address] ( Prothrombin Time w/INRon INR Coag (PPP) [Relative time] 1.1 {INR} Normal [facility] Comment on above: Performed By: #### L 300.4310, L300.3900, L500.4050, L503.6620, L503.6005, L100.0100 #### [facility] [address] [place], [address] PT Coag (PPP) [Time] 14.5 s Normal 11.7-14.9 [facility] Comment on above: Performed By: #### L 300.4310, L300.3900, L500.4050, L503.6620, L503.6005, L100.0100 #### [facility] [address] [place], [address] Tibia Fibula 2 Viewson 12-21 Tibia Fibula 2 Views [facility] Imaging [facility] [address] [place], [place] [address] Tibia Fibula 2 Views MR#: [id number] Acct: [id number] Name: AZALIA MATTHEW TARI Rep #: [id number] : 1970 M 53 From: Fernando Thomas MD PCP: Care Physician,No Primary Status: REG ER Study: Tibia Fibula 2 Views Date of Exam: 12/22/23 Exam# [id number] Ordering Dr: Brennon Steiner DO [id number] INDICATION: Bilateral extremity cellulitis EXAMINATION/TECHNIQUE: X-RAY - LEFT XR Tibia/Fibula 2 Views COMPARISON: None. FINDINGS: SOFT TISSUES: Diffuse soft tissue swelling. No evidence of soft tissue gas. BONES/JOINTS: No fracture or dislocation. Severe degenerative changes of the knee. No erosive changes. RAD/Tibia Fibula 2 Views IMPRESSION: Diffuse soft tissue swelling with no evidence of soft tissue gas and no acute osseous abnormality. Electronically Signed: Fernando Thomas DO at 22:07 EDT , CC: Dr. Brennon Steiner DO; No Primary Care Physician Silk Screen Printer Helper: Signed Normal [facility] Tibia Fibula 2 Views [facility] Imaging Services [address] [place], [place] [address] Tibia Fibula 2 Views MR#: [id number] Acct: [id number] Name: AZALIA MATTHEW II Rep #: [id number] : 1970 M 53 From: Fernando Thomas MD PCP: Care Physician,No Primary Status: [facility] ER Study: Tibia Fibula 2 Views Date of Exam: 12/22/23 Exam# [id number] Ordering Dr: Brennon Steiner DO [id number] INDICATION: BILATERAL EXTREMITY CELLULITIS EXAMINATION/TECHNIQUE: X-RAY - RIGHT XR Tibia/Fibula 2 Views COMPARISON: None. FINDINGS: SOFT TISSUES: Diffuse soft tissue swelling. No evidence of soft tissue gas. BONES/JOINTS: No fracture or dislocation. Severe degenerative changes of the knee. No erosive changes. RAD/Tibia Fibula 2 Views IMPRESSION: Diffuse soft tissue swelling with no evidence of soft tissue gas and no acute osseous abnormality. Electronically Signed: Fernando Thomas DO at 22:06 EDT , CC: Dr. Brennon Steiner, DO; No Primary Care Physician Silk Screen Printer Helper: Signed Normal [facility] Urinalysis, Completeon 12-21 BACTERIA 1+ /hpf Normal None Seen [facility] Comment on above: Order Comment: COLLE CTOR TO SPECIFY Performed By: #### M 100.2200, L400.0001 ####[facility] [address] [place], [address] Mucus Ql (Urine sed) 1+ /hpf Normal [facility] Comment on above: Order Comment: COLLE CTOR TO SPECIFY Performed By: #### M 100.2200, L400.0001 ####[facility] [address] [place], [address] RBC 0-5 SEEN Normal 0-5 [facility] Comment on above: Order Comment: [facility] CTOR TO SPECIFY Performed By: #### M 100.2200, L400.0001 ####[facility] [address] [place], [address] WBC 0-5 SEEN Normal 0-5 [facility] Comment on above: Order Comment: [facility] CTOR TO SPECIFY Performed By: #### M 100.2200, L400.0001 ####[facility] [address] [place], [address] EPI,SQUAMOUS 0 SEEN Normal 0-5 [facility] Comment on above: Order Comment: COLLE CTOR TO SPECIFY Performed By: #### M 100.2200, L400.0001 ####[facility] [address] [place], [address] BASIC METABOLIC PANELon 07-2 Anion gap [Moles/Vol] 3 mmol/L Low 8-12 [facility] [employer] [facility] Comment on above: Performed By: #### 4 [id number], [id number] #### [address] [place] [id number] [facility] Calcium [Mass/Vol] 9.2 mg/dL Normal 8.4-10.4 [facility] Comment on above: Performed By: #### 4 [id number], [id number] #### [address] [place] [address] [place] Chloride [Moles/Vol] 97 mmol/L Normal 96-109 [facility] [employer] [facility] Comment on above: Performed By: #### 4 [id number], [id number] #### [address] [place] [address] [place] CO2 [Moles/Vol] 37 mmol/L High 22-30 [facility] Comment on above: Performed By: #### 4 [id number], [id number] #### [address] [place] [address] [facility] Creatinine [Mass/Vol] 0.87 mg/dL Normal 0.66-1.25 [facility] [employer] [facility] Comment on above: Performed By: #### 4 [id number], [id number] #### [address] [place] [address] [place] GLOMERULAR FILTRATION RATE ML/MIN/1.73 SQ M.PREDICTED 103.8 mL/min/1.73m*2 Normal >=60.0 [facility] Comment on above: Result Comment: eGFR calculation based on the Chronic Kidney Disease Epidemiology Collaboration (CKD-EPI) equation refit without adjustment for race. Categories in Chronic Kidney Disease (CKD) Category: GFR(mL/min/1.73m^2) Interpretation: G1* 90 or greater Normal or high G2* 60-89 Mild decrease G3a 45-59 Mild to moderate decrease G3b 30-44 Moderate to severe decrease G4 15-29 Severe decrease G5 14 or less Kidney failure *G1&G2: In the absence of evidence of kidney damage, neither GFR category G1 nor G2 fulfill the criteria for CKD Kidney Int Suppl.2013;3:1-150 Performed By: #### 4 [id number], [id number] #### [address] [place] [address] [place] Glucose [Mass/Vol] 112 mg/dL High 65-100 [facility] Comment on above: Performed By: #### 4 [id number], [id number] #### [address] [place] [address] [place] Potassium [Moles/Vol] 4.2 mmol/L Normal 3.6-5.1 [facility] Comment on above: Performed By: #### 4 [id number], [id number] #### [address] Sodium [Moles/Vol] 137 mmol/L Normal 135-147 [facility] Comment on above: Performed By: #### 4 [id number], [id number] #### [address] Urea nitrogen [Mass/Vol] 14 mg/dL Normal 8-26 [facility] Comment on above: Performed By: #### 4 [id number], [id number] #### [address] Basic metabolic panelon 07-2 Anion gap [Moles/Vol] 3 mmol/L Low 8 - 12 mmol/L [facility] Calcium [Mass/Vol] 9.2 mg/dL 8.4 - 10. 4 mg/dL [facility] Calcium hydrogen phosphate dihydrate crystals LM Ql (Urine sed) 14 mg/dL 8 - 26 mg/dL [facility] Chloride [Moles/Vol] 97 mmol/L 96 - 10 9 mmol/L [facility] CO2 (BldMV) [Moles/Vol] 37 mmol/L High 22 - 30 mmol/L [facility] Creatinine [Mass/Vol] 0.87 mg/dL 0.66 - 1.25 mg/dL [facility] GFR/1.73 sq M.predicted among non-blacks MDRD (S/P/Bld) [Vol rate/Area] 103.8 mL/min/{1.73_m2} - PINF [facility] Comment on above: eGFR calculation bas ed on the Chronic Kidney Disease Epidemiology Collaboration (CKD-EPI) equation refit without adjustment for race. Categories in Chronic Kidney Disease (CKD) Category: GFR(mL/min/1.73m^2) Interpretation: G1* 90 or greater Normal or high G2* 60-89 Mild decrease G3a 45-59 Mild to moderate decrease G3b 30-44 Moderate to severe decrease G4 15-29 Severe decrease G5 14 or less Kidney failure *G1&G2: In the absence of evidence of kidney damage, neither GFR category G1 nor G2 fulfill the criteria for CKD Kidney Int Suppl.2013;3:1-150 Glucose [Mass/Vol] 112 mg/dL High 65 - 100 mg/dL [facility] Potassium [Moles/Vol] 4.2 mmol/L 3.6 - 5.1 mmol/L [facility] Sodium [Moles/Vol] 137 mmol/L 135 - 147 mmol/L [facility] CBCon 11-26-2023 Age [Time] 88.2 fL 80.6 - 99 fL [facility] Age [Time] 29.1 pg 27.0 - 34.2 pg [facility] Age [Time] 33.0 g/dL 31.4 - 36.2 g/dL [facility] Erythrocyte distribution width (RBC) [Ratio] 13.8 % 11.5 - 14.5 % [facility] Hematocrit (Bld) [Volume fraction] 52.4 % High 37.7 - 51.1 % [facility] Hexanoylglycine (U) [Moles/Vol] 17.3 g/dL 12.8 - 17.7 g/dL [facility] Interpretation and review of laboratory results Abnormal [facility] Platelets (Bld) [#/Vol] 253 10*3/uL [facility] RBC (Bld) [#/Vol] 5.94 10*6/uL High [facility] WBC (Bld) [#/Vol] 6.7 10*3/uL [facility] Erythrocyte distribution width (RBC) [Ratio] 13.8 % Normal 11.5-14.5 [facility] Comment on above: Performed By: #### 4 [id number], [id number], [id number], [id number] #### HO GUEVARA (2012) [facility] [address] [place] [address] Hematocrit (Bld) [Volume fraction] 52.4 % High 37.7-51.1 [facility] Comment on above: Performed By: #### 4 [id number], [id number], [id number], [id number] #### HO GUEVARA (2012) [facility] [address] [place] [address] Hemoglobin (Bld) [Mass/Vol] 17.3 g/dL Normal 12.8-17.7 [facility] Comment on above: Performed By: #### 4 [id number], [id number], [id number], [id number] #### HO GUEVARA (2012) [facility] [address] [place] [address] MCH (RBC) [Entitic mass] 29.1 pg Normal 27.0-34.2 [facility] Comment on above: Performed By: #### 4 [id number], [id number], [id number], [id number] #### HO GUEVARA (2012) [facility] [address] [place] [address] MCHC (RBC) [Mass/Vol] 33.0 g/dL Normal 31.4-36.2 [facility] Comment on above: Performed By: #### 4 [id number], [id number], [id number], [id number] #### HO GUEVARA (2012) [facility] [address] [place] [address] MCV (RBC) [Entitic vol] 88.2 fL Normal 80.6-99 [facility] Comment on above: Performed By: #### 4 [id number], [id number], [id number], [id number] #### HO GUEVARA (2012) [facility] [address] [place] [address] PLATELET COUNT 253 x10*3/uL Normal 150-400 [facility] Comment on above: Performed By: #### 4 [id number], [id number], [id number], [id number] #### HO GUEVARA (2012) [facility] [address] [place] [address] RED BLOOD CELL COUNT 5.94 x10*6/uL High 3.70-5.70 [facility] Comment on above: Performed By: #### 4 [id number], [id number], [id number], [id number] #### HO GUEVARA (2012) [facility] [address] [place] [address] WHITE BLOOD CELLS 6.7 x10*3/uL Normal 4.3-10.3 [facility] Comment on above: Performed By: #### 4 [id number], [id number], [id number], [id number] #### HO GUEVARA (2012) [facility] [address] [place] [address] HEPATIC FUNCTION PANELon Albumin [Mass/Vol] 4.4 g/dL Normal 3.5-5.0 [facility] Comment on above: Performed By: #### 4 [id number], [id number] #### [address] ALK PHOS 201 U/L High 24-126 [facility] Comment on above: Performed By: #### 4 [id number], [id number] #### [facility] [address] ALT [Catalytic activity/Vol] 75 U/L High 4-50 [facility] Comment on above: Performed By: #### 4 [id number], [id number] #### [place] [address] AST [Catalytic activity/Vol] 63 U/L High 3-55 [facility] Comment on above: Performed By: #### 4 [id number], [id number] #### [place] [address] Bilirubin [Mass/Vol] 1.3 mg/dL Normal 0.2-1.6 [facility] Comment on above: Performed By: #### 4 [id number], [id number] #### [address] Bilirubin.indirect [Mass/Vol] 0.5 mg/dL Normal <=0.5 [facility] Comment on above: Performed By: #### 4 [id number], [id number] #### [facility] [address] Protein [Mass/Vol] 8.7 g/dL High 6.3-8.2 [facility] Comment on above: Performed By: #### 4 [id number], [id number] #### [facility] [address] Hepatic function panelon Albumin (Syn fld) [Mass/Vol] 4.4 g/dL 3.5 - 5.0 g/dL [facility] Aldosterone (U) [Mass/Vol] 201 U/L High 24 - 126 U/L [facility] ALT [Catalytic activity/Vol] 75 U/L High 4 - 50 U/L [facility] AST [Catalytic activity/Vol] 63 U/L High 3 - 55 U/L [facility] Bilirubin [Mass/Vol] 1.3 mg/dL 0.2 - 1 .6 mg/dL [facility] Bilirubin.conjugated [Mass/Vol] 0.5 mg/dL NINF - 0.5 mg/dL [facility] Protein [Mass/Vol] 8.7 g/dL High 6.3 - 8.2 g/dL [facility] No Panel Informationon 11-25 Interpretation and review of laboratory results Abnormal [facility] US LIVERon 11-26-2023 US LIVER Limited abdominal ultrasound . 11/26/2023 9:59 AM EDT History:need prior to d/c due to labs. Comparison: None available . LIVER: 19 cm in length. The parenchyma is somewhat obscured by habitus and overlying ribs. The overall echotexture is grossly unremarkable. GB/BILIARY: Status post cholecystectomy. CBD near the manuel is 5.8 mm. PANCREAS: In the included aspects of the pancreas, the pancreatic duct is not dilated. OTHER: No right hydronephrosis IMPRESSION: 1. Less than optimal. No distinct evidence of acute process on this exam Tech Notes: Vis panc wnl Liver difficult to penetrate, 19cm Gb removed CBD wnl Rt kidney wnl Ordering Physician: Sara Ramirez MD Normal [facility] 11-26-2023 1. Less than optimal. No distinct evidence of acute process on this exam [facility] Limited abdominal ultrasound . 11/26/2023 9:59 AM EDT History:need prior to d/c due to labs. Comparison: None available . LIVER: 19 cm in length. The parenchyma is somewhat obscured by habitus and overlying ribs. The overall echotexture is grossly unremarkable. GB/BILIARY: Status post cholecystectomy. CBD near the manuel is 5.8 mm. PANCREAS: In the included aspects of the pancreas, the pancreatic duct is not dilated. OTHER: No right hydronephrosis Kamron Garcia MD - 10/31 Limited abdominal ultrasound . 11/26/2023 9:59 AM EDT History:need prior to d/c due to labs. Comparison: None available . LIVER: 19 cm in length. The parenchyma is somewhat obscured by habitus and overlying ribs. The overall echotexture is grossly unremarkable. GB/BILIARY: Status post cholecystectomy. CBD near the manuel is 5.8 mm. PANCREAS: In the included aspects of the pancreas, the pancreatic duct is not dilated. OTHER: No right hydronephrosis IMPRESSION: 1. Less than optimal. No distinct evidence of acute process on this exam [facility] Radiology Study observation (narrative) [facility] US LiverOrdered By: Kamron Arrington on 11-26-2023 [facility] Work Phone: BASIC METABOLIC PANELon - Anion gap [Moles/Vol] 5 mmol/L Low 8-12 [facility] Comment on above: Performed By: #### 4 [id number], [id number], [id number], [id number] #### HO GUEVARA (2012) [facility] [address] [place] [address] Calcium [Mass/Vol] 9.1 mg/dL Normal 8.4-10.4 [facility] Comment on above: Performed By: #### 4 [id number], [id number], [id number], [id number] #### HO GUEVARA (2012) [facility] [address] [place] [address] Chloride [Moles/Vol] 97 mmol/L Normal 96-109 [facility] Comment on above: Performed By: #### 4 [id number], [id number], [id number], [id number] #### HO GUEVARA (2012) [facility] [address] [place] [address] CO2 [Moles/Vol] 37 mmol/L High 22-30 [facility] Comment on above: Performed By: #### 4 [id number], [id number], [id number], [id number] #### HO GUEVARA (2012) [facility] [address] [place] [address] Creatinine [Mass/Vol] 0.77 mg/dL Normal 0.66-1.25 [facility] Comment on above: Performed By: #### 4 [id number], [id number], [id number], [id number] #### HO GUEVARA (2012) [facility] [address] [place] [address] GLOMERULAR FILTRATION RATE ML/MIN/1.73 SQ M.PREDICTED 107.7 mL/min/1.73m*2 Normal >=60.0 [facility] Comment on above: Result Comment: eGFR calculation based on the Chronic Kidney Disease Epidemiology Collaboration (CKD-EPI) equation refit without adjustment for race. Categories in Chronic Kidney Disease (CKD) Category: GFR(mL/min/1.73m^2) Interpretation: G1* 90 or greater Normal or high G2* 60-89 Mild decrease G3a 45-59 Mild to moderate decrease G3b 30-44 Moderate to severe decrease G4 15-29 Severe decrease G5 14 or less Kidney failure *G1&G2: In the absence of evidence of kidney damage, neither GFR category G1 nor G2 fulfill the criteria for CKD Kidney Int Suppl.2013;3:1-150 Performed By: #### 4 [id number], [id number], [id number], [id number] #### HO GUEVARA (2012) [facility] [address] [place] [address] Glucose [Mass/Vol] 102 mg/dL High 65-100 [facility] Comment on above: Performed By: #### 4 [id number], [id number], [id number], [id number] #### HO GUEVARA (2012) [facility] [address] [place] [address] Potassium [Moles/Vol] 4.2 mmol/L Normal 3.6-5.1 [facility] Comment on above: Performed By: #### 4 [id number], [id number], [id number], [id number] #### HO GUEVARA (2012) [facility] [address] [place] [address] Sodium [Moles/Vol] 139 mmol/L Normal 135-147 [facility] Comment on above: Performed By: #### 4 [id number], [id number], [id number], [id number] #### HO GUEVARA (2012) [facility] [address] [place] [address] Urea nitrogen [Mass/Vol] 12 mg/dL Normal 8-26 [facility] Comment on above: Performed By: #### 4 [id number], [id number], [id number], [id number] #### HO GUEVARA (2013) [facility] [address] [place] [address] Bacteria identified Cx Nom ( Wound)on 11-25-2023 Interpretation and review of laboratory results Abnormal [facility] Microscopic observation Gram stain Nom (Unsp spec) No organisms seen [facility] Bacteria identified Cx Nom ( Wound)Ordered By: Daphne Rincon on 11-25-2023 Interpretation and review of laboratory results Abnormal [facility] Microscopic observation Gram stain Nom (Unsp spec) Rare PMNs [facility] Microscopic observation Gram stain Nom (Unsp spec) Rare RBCs [facility] Microscopic observation Gram stain Nom (Unsp spec) Positive [facility] Basic metabolic panelon 10-31 Anion gap [Moles/Vol] 5 mmol/L Low 8 - 12 mmol/L [facility] Calcium [Mass/Vol] 9.1 mg/dL 8.4 - 10. 4 mg/dL [facility] Calcium hydrogen phosphate dihydrate crystals LM Ql (Urine sed) 12 mg/dL 8 - 26 mg/dL [facility] Chloride [Moles/Vol] 97 mmol/L 96 - 10 9 mmol/L [facility] CO2 (BldMV) [Moles/Vol] 37 mmol/L High 22 - 30 mmol/L [facility] Creatinine [Mass/Vol] 0.77 mg/dL 0.66 - 1.25 mg/dL [facility] GFR/1.73 sq M.predicted among non-blacks MDRD (S/P/Bld) [Vol rate/Area] 107.7 mL/min/{1.73_m2} - PINF [facility] Comment on above: eGFR calculation bas ed on the Chronic Kidney Disease Epidemiology Collaboration (CKD-EPI) equation refit without adjustment for race. Categories in Chronic Kidney Disease (CKD) Category: GFR(mL/min/1.73m^2) Interpretation: G1* 90 or greater Normal or high G2* 60-89 Mild decrease G3a 45-59 Mild to moderate decrease G3b 30-44 Moderate to severe decrease G4 15-29 Severe decrease G5 14 or less Kidney failure *G1&G2: In the absence of evidence of kidney damage, neither GFR category G1 nor G2 fulfill the criteria for CKD Kidney Int Suppl.2013;3:1-150 Glucose [Mass/Vol] 102 mg/dL High 65 - 100 mg/dL [facility] Interpretation and review of laboratory results Abnormal [facility] Potassium [Moles/Vol] 4.2 mmol/L 3.6 - 5.1 mmol/L [facility] Sodium [Moles/Vol] 139 mmol/L 135 - 147 mmol/L [facility] CBC AND DIFFERENTIALon 11-24 ABSOLUTE BASOPHIL 0.1 x10*3/uL Normal 0.0-0.1 [facility] Comment on above: Performed By: #### 4 [id number], [id number], [id number], [id number] #### HO GUEVARA (2012) [facility] [address] [place] [address] ABSOLUTE EOSINOPHIL 0.3 x10*3/uL Normal 0.1-0.3 [facility] Comment on above: Performed By: #### 4 [id number], [id number], [id number], [id number] #### HO GUEVARA (2012) [facility] [address] [place] [address] ABSOLUTE IMMATURE GRANULOCYTES 0.0 x10*3/uL Normal 0.0-0.1 [facility] Comment on above: Performed By: #### 4 6145563, [id number], [id number], [id number] #### HO GUEVARA (2012) [facility] [address] [address] ABSOLUTE LYMPH 1.9 x10*3/uL Normal 1.2-3.3 [facility] Comment on above: Performed By: #### 4 3053772, 82351929, [id number], [id number] #### HO GUEVARA (2012) [facility] [address] [place] [address] ABSOLUTE MONO 0.6 x10*3/uL Normal 0.2-0.6 [facility] Comment on above: Performed By: #### 4 2679002, [id number], [id number], [id number] #### HO GUEVARA (2012) [facility] [address] [address] ABSOLUTE NEUTROPHIL 4.3 x10*3/uL Normal 2.4-6.6 [facility] Comment on above: Performed By: #### 4 [id number], [id number], [id number], [id number] #### HO GUEVARA (2012) [facility] [address] [place] [address] Basophils/100 WBC (Bld) 0.8 % Normal [facility] Comment on above: Performed By: #### 4 9062550, [id number], [id number], [id number] #### HO GUEVARA (2012) [facility] [address] [place] [address] Eosinophils/100 WBC (Bld) 3.8 % Normal [facility] Comment on above: Performed By: #### 4 2935617, 56264538, [id number], [id number] #### HO GUEVARA (2012) [facility] [address] [place] [address] Erythrocyte distribution width (RBC) [Ratio] 13.8 % Normal 11.5-14.5 [facility] Comment on above: Performed By: #### 4 [id number], [id number], [id number], [id number] #### HO GUEVARA (2012) [facility] [address] [facility] [place] [address] Hematocrit (Bld) [Volume fraction] 52.6 % High 37.7-51.1 [facility] Comment on above: Performed By: #### 4 [id number], [id number], [id number], [id number] #### HO GUEVARA (2012) [facility] [address] [facility] [place] [place] [address] Hemoglobin (Bld) [Mass/Vol] 17.2 g/dL Normal 12.8-17.7 [facility] Comment on above: Performed By: #### 4 [id number], 50225255, [id number], [id number] #### HO GUEVARA (2012) [facility] [address] [place] [address] Immature granulocytes/100 WBC (Bld) 0.1 % Normal [facility] Comment on above: Performed By: #### 4 6925674, 21979206, [id number], [id number] #### HO GUEVARA (2012) [facility] [address] [place] [address] Lymphocytes/100 WBC (Bld) 26.3 % Normal [facility] Comment on above: Performed By: #### 4 5185931, 29919265, [id number], [id number] #### HO GUEVARA (2012) [facility] [address] [place] [address] MCH (RBC) [Entitic mass] 29.0 pg Normal 27.0-34.2 [facility] Comment on above: Performed By: #### 4 9176386, [id number], [id number], [id number] #### HO GUEVARA (2012) [facility] [address] [place] [address] MCHC (RBC) [Mass/Vol] 32.7 g/dL Normal 31.4-36.2 [facility] Comment on above: Performed By: #### 4 3623260, 53636689, [id number], [id number] #### HO GUEVARA (2012) [facility] [address] [place] [address] MCV (RBC) [Entitic vol] 88.7 fL Normal 80.6-99 [facility] Comment on above: Performed By: #### 4 5066298, [id number], [id number], [id number] #### HO GUEVARA (2012) [facility] [address] [place] [address] Monocytes/100 WBC (Bld) 8.3 % Normal [facility] Comment on above: Performed By: #### 4 7901845, [id number], [id number], [id number] #### HO GUEVARA (2012) [facility] [address] [place] [address] Neutrophils/100 WBC (Bld) 60.7 % Normal [facility] Comment on above: Performed By: #### 4 8949364, [id number], [id number], [id number] #### HO GUEVARA (2012) [facility] [address] [address] NUCLEATED RED BLOOD CELLS AUTO 0.0 % Normal 0.0-1.0 [facility] Comment on above: Performed By: #### 4 5077031, [id number], [id number], [id number] #### HO GUEVARA (2012) [facility] [address] [facility] [address] PLATELET COUNT 263 x10*3/uL Normal 150-400 [facility] Comment on above: Performed By: #### 4 7146360, 76126191, [id number], [id number] #### HO GUEVARA (2012) [facility] [address] [facility] [place] [address] RED BLOOD CELL COUNT 5.93 x10*6/uL High 3.70-5.70 [facility] Comment on above: Performed By: #### 4 [id number], [id number], [id number], [id number] #### HO GUEVARA (2012) [facility] [address] [facility] [address] WHITE BLOOD CELLS 7.1 x10*3/uL Normal 4.3-10.3 [facility] Comment on above: Performed By: #### 4 [id number], [id number], [id number], [id number] #### HO GUEVARA (2012) [facility] [address] [place] [address] CBC with Differentialon 10-31 Absolute Immature Granulocytes 0.0 [facility] Age [Time] 88.7 fL 80.6 - 99 fL [facility] Age [Time] 29.0 pg 27.0 - 34.2 pg [facility] Age [Time] 32.7 g/dL 31.4 - 36.2 g/dL [facility] B. burgdorferi IgM IB Ql (CSF) 26.3 % [facility] Basophils (Bld) [#/Vol] 0.1 10*3/uL [facility] Basophils/100 WBC (Body fld) 0.8 % [facility] Eosinophils (Bld) [#/Vol] 1.9 10*3/uL [facility] Eosinophils (Bld) [#/Vol] 0.6 10*3/uL [facility] Eosinophils (Bld) [#/Vol] 0.3 10*3/uL [facility] Eosinophils/100 WBC (Bld) 3.8 % [facility] Erythrocyte distribution width (RBC) [Ratio] 13.8 % 11.5 - 14.5 % [facility] Hematocrit (Bld) [Volume fraction] 52.6 % High 37.7 - 51.1 % [facility] Hexanoylglycine (U) [Moles/Vol] 17.2 g/dL 12.8 - 17.7 g/dL [facility] Immature granulocytes/100 WBC (Bld) 0.1 % [facility] Interpretation and review of laboratory results Abnormal [facility] Monocytes/100 WBC (Bld) 8.3 % [facility] Neurotensin (P) [Mass/Vol] 60.7 % [facility] Neutrophils (Bld) [#/Vol] 4.3 10*3/uL [facility] Nucleated RBC/100 WBC (Bld) [Ratio] 0.0 % 0.0 - 1.0 % [facility] Platelets (Bld) [#/Vol] 263 10*3/uL [facility] RBC (Bld) [#/Vol] 5.93 10*6/uL High [facility] WBC (Bld) [#/Vol] 7.1 10*3/uL [facility] HEPATIC FUNCTION PANELon Albumin [Mass/Vol] 4.5 g/dL Normal 3.5-5.0 [facility] Comment on above: Performed By: #### 4 [id number], [id number], [id number], [id number] #### HO GUEVARA (2012) [facility] [address] [place] [address] ALK PHOS 204 U/L High 24-126 [facility] Comment on above: Performed By: #### 4 6402736, 64531574, [id number], [id number] #### HO GUEVARA (2012) [facility] [address] [place] [address] ALT [Catalytic activity/Vol] 71 U/L High 4-50 [facility] Comment on above: Performed By: #### 4 8398419, 99345961, [id number], [id number] #### HO GUEVARA (2012) [facility] [address] [place] [address] AST [Catalytic activity/Vol] 62 U/L High 3-55 [facility] Comment on above: Performed By: #### 4 4545277, [id number], [id number], [id number] #### HO GUEVARA (2012) [facility] [address] [place] [address] Bilirubin [Mass/Vol] 1.3 mg/dL Normal 0.2-1.6 [facility] Comment on above: Performed By: #### 4 0927852, [id number], [id number], [id number] #### HO GUEVARA (2012) [facility] [address] [place] [address] Bilirubin.indirect [Mass/Vol] 0.6 mg/dL High <=0.5 [facility] Comment on above: Performed By: #### 4 2174797, 15864968, [id number], [id number] #### HO GUVEARA (2012) [facility] [address] [address] Protein [Mass/Vol] 9.0 g/dL High 6.3-8.2 [facility] Comment on above: Performed By: #### 4 7681471, [id number], [id number], [id number] #### HO GUEVARA (2012) [facility] [address] [place] [address] Hepatic function panelon Albumin (Syn fld) [Mass/Vol] 4.5 g/dL 3.5 - 5.0 g/dL [facility] Aldosterone (U) [Mass/Vol] 204 U/L High 24 - 126 U/L [facility] ALT [Catalytic activity/Vol] 71 U/L High 4 - 50 U/L [facility] AST [Catalytic activity/Vol] 62 U/L High 3 - 55 U/L [facility] Bilirubin [Mass/Vol] 1.3 mg/dL 0.2 - 1 .6 mg/dL [facility] Bilirubin.conjugated [Mass/Vol] 0.6 mg/dL High NINF - 0.5 mg/dL [facility] Interpretation and review of laboratory results Abnormal [facility] Protein [Mass/Vol] 9.0 g/dL High 6.3 - 8.2 g/dL [facility] Wound culture (includes gram stain)Ordered By: Daphne Rincon on 11-25-2023 Bacteria identified Cx Nom (Wound) 4+ Staphylococcus pseudointermedius Abnormal [facility] Bacteria identified Cx Nom (Wound) 4+ Staphylococcus sciuri Abnormal [facility] Wound culture with gram stai non 11-25-2023 Bacteria identified Cx Nom (Wound) 4+ Staphylococcus pseudointermedius Abnormal [facility] Comment on above: Susceptibility testi ng not performed on this isolate. Refer to susceptibilities reported from same or similar culture source within previous 72 hours. Bacteria identified Cx Nom (Wound) 4+ Staphylococcus sciuri Abnormal [facility] Comment on above: Susceptibility testi ng not performed on this isolate. Refer to susceptibilities reported from same or similar culture source within previous 72 hours. BASIC METABOLIC PANELon 10-31 Anion gap [Moles/Vol] 6 mmol/L Low 8-12 [facility] Comment on above: Performed By: #### 4 [id number], [id number] #### [address] Calcium [Mass/Vol] 8.5 mg/dL Normal 8.4-10.4 [facility] Comment on above: Performed By: #### 4 [id number], [id number] #### [address] Chloride [Moles/Vol] 101 mmol/L Normal 96-109 [facility] Comment on above: Performed By: #### 4 [id number], [id number] #### [address] [address] CO2 [Moles/Vol] 30 mmol/L Normal 22-30 [facility] Comment on above: Performed By: #### 4 [id number], [id number] #### [address] Creatinine [Mass/Vol] 0.75 mg/dL Normal 0.66-1.25 [facility] Comment on above: Performed By: #### 4 [id number], [id number] #### [place] [address] [place] GLOMERULAR FILTRATION RATE ML/MIN/1.73 SQ M.PREDICTED 108.6 mL/min/1.73m*2 Normal >=60.0 [facility] Comment on above: Result Comment: eGFR calculation based on the Chronic Kidney Disease Epidemiology Collaboration (CKD-EPI) equation refit without adjustment for race. Categories in Chronic Kidney Disease (CKD) Category: GFR(mL/min/1.73m^2) Interpretation: G1* 90 or greater Normal or high G2* 60-89 Mild decrease G3a 45-59 Mild to moderate decrease G3b 30-44 Moderate to severe decrease G4 15-29 Severe decrease G5 14 or less Kidney failure *G1&G2: In the absence of evidence of kidney damage, neither GFR category G1 nor G2 fulfill the criteria for CKD Kidney Int Suppl.2013;3:1-150 Performed By: #### 4 [id number], [id number] #### [address] Glucose [Mass/Vol] 99 mg/dL Normal 65-100 [facility] [employer] [facility] Comment on above: Performed By: #### 4 [id number], [id number] #### [address] [facility] [address] Sodium [Moles/Vol] 137 mmol/L Normal 135-147 [facility] Comment on above: Performed By: #### 4 [id number], [id number] #### [facility] [address] Urea nitrogen [Mass/Vol] 13 mg/dL Normal 8-26 [facility] Comment on above: Performed By: #### 4 7068557, [id number] #### [facility] [facility] [address] Bacteria identified Cx Nom ( Bld)Ordered By: Jenelle Mahoney on 11-24-2023 Interpretation and review of laboratory results Abnormal [facility] [employer] [facility] Work Phone: Microscopic observation Gram stain Nom (Unsp spec) Positive Abnormal [facility] Work Phone: Comment on above: Growth in 1 bottle o f 2 cultures drawn [employer] Work Phone: Basic metabolic panelon 10-31 Anion gap [Moles/Vol] 6 mmol/L Low 8 - 12 mmol/L [facility] Calcium [Mass/Vol] 8.5 mg/dL 8.4 - 10. 4 mg/dL [facility] Calcium hydrogen phosphate dihydrate crystals LM Ql (Urine sed) 13 mg/dL 8 - 26 mg/dL [facility] Chloride [Moles/Vol] 101 mmol/L 96 - 10 9 mmol/L [facility] CO2 (BldMV) [Moles/Vol] 30 mmol/L 22 - 30 mmol/L [facility] Creatinine [Mass/Vol] 0.75 mg/dL 0.66 - 1.25 mg/dL [facility] GFR/1.73 sq M.predicted among non-blacks MDRD (S/P/Bld) [Vol rate/Area] 108.6 mL/min/{1.73_m2} - PINF [facility] Comment on above: eGFR calculation bas ed on the Chronic Kidney Disease Epidemiology Collaboration (CKD-EPI) equation refit without adjustment for race. Categories in Chronic Kidney Disease (CKD) Category: GFR(mL/min/1.73m^2) Interpretation: G1* 90 or greater Normal or high G2* 60-89 Mild decrease G3a 45-59 Mild to moderate decrease G3b 30-44 Moderate to severe decrease G4 15-29 Severe decrease G5 14 or less Kidney failure *G1&G2: In the absence of evidence of kidney damage, neither GFR category G1 nor G2 fulfill the criteria for CKD Kidney Int Suppl.2013;3:1-150 Glucose [Mass/Vol] 99 mg/dL 65 - 100 mg/dL [facility] Interpretation and review of laboratory results Abnormal [facility] Potassium [Moles/Vol] 3.5 mmol/L Low 3.6 - 5.1 mmol/L [facility] Sodium [Moles/Vol] 137 mmol/L 135 - 147 mmol/L [facility] Blood culture x2 (Includes g soo stain)Ordered By: Jenelle Mahoney on 11-24-2023 Bacteria identified Cx Nom (Bld) Negative Abnormal [facility] Work Phone: Comment on above: Growth in 1 bottle o f 2 cultures drawn PROBABLE CONTAMINANT If Physician requests additional work-up contact Microbiology Lab at [phone]. [phone] within 5 days. CBC AND DIFFERENTIALon 11-23 ABSOLUTE BASOPHIL 0.0 x10*3/uL Normal 0.0-0.[address] [facility] Comment on above: Performed By: #### 4 [id number], [id number], [id number], [id number] #### HO GUEVARA (2012) [facility] [address] [place] [address] ABSOLUTE EOSINOPHIL 0.2 x10*3/uL Normal 0.1-0.3 [facility] Comment on above: Performed By: #### 4 [id number], [id number], [id number], [id number] #### HO GUEVARA (2012) [facility] [address] [place] [address] ABSOLUTE IMMATURE GRANULOCYTES 0.0 x10*3/uL Normal 0.0-0.1 [facility] Comment on above: Performed By: #### 4 [id number], 79077307, [id number], [id number] #### HO GUEVARA (2012) [facility] [address] [place] [address] ABSOLUTE LYMPH 2.1 x10*3/uL Normal 1.2-3.3 [facility] Comment on above: Performed By: #### 4 [id number], [id number], [id number], [id number] #### HO GUEVARA (2012) [facility] [address] [place] [address] ABSOLUTE MONO 0.6 x10*3/uL Normal 0.2-0.6 [facility] Comment on above: Performed By: #### 4 [id number], [id number], [id number], [id number] #### HO GUEVARA (2012) [facility] [address] [place] [address] ABSOLUTE NEUTROPHIL 4.4 x10*3/uL Normal 2.4-6.6 [facility] Comment on above: Performed By: #### 4 [id number], [id number], [id number], [id number] #### HO GUEVARA (2012) [facility] [address] [place] [address] Basophils/100 WBC (Bld) 0.4 % Normal [facility] Comment on above: Performed By: #### 4 [id number], [id number], [id number], [id number] #### HO GUEVARA (2012) [facility] [address] [place] [address] Eosinophils/100 WBC (Bld) 3.2 % Normal [facility] Comment on above: Performed By: #### 4 [id number], [id number], [id number], [id number] #### HO GUEVARA (2012) [facility] [address] [place] [address] Erythrocyte distribution width (RBC) [Ratio] 14.0 % Normal 11.5-14.5 [facility] Comment on above: Performed By: #### 4 [id number], [id number], [id number], [id number] #### HO GUEVARA (2012) [facility] [address] [place] [address] Hematocrit (Bld) [Volume fraction] 50.6 % Normal 37.7-51.1 [facility] Comment on above: Performed By: #### 4 [id number], [id number], [id number], [id number] #### HO GUEVARA (2012) [facility] [address] [place] [address] Hemoglobin (Bld) [Mass/Vol] 16.8 g/dL Normal 12.8-17.7 [facility] Comment on above: Performed By: #### 4 [id number], [id number], [id number], [id number] #### HO GUEVARA (2012) [facility] [address] [place] [address] Immature granulocytes/100 WBC (Bld) 0.3 % Normal [facility] Comment on above: Performed By: #### 4 [id number], [id number], [id number], [id number] #### HO GUEVARA (2012) [facility] [address] [place] [address] Lymphocytes/100 WBC (Bld) 28.5 % Normal [facility] Comment on above: Performed By: #### 4 [id number], [id number], [id number], [id number] #### HO GUEVARA (2012) [facility] [address] [place] [address] MCH (RBC) [Entitic mass] 28.9 pg Normal 27.0-34.2 [facility] Comment on above: Performed By: #### 4 [id number], [id number], [id number], [id number] #### HO GUEVARA (2012) [facility] [address] [place] [address] MCHC (RBC) [Mass/Vol] 33.2 g/dL Normal 31.4-36.2 [facility] Comment on above: Performed By: #### 4 [id number], [id number], [id number], [id number] #### HO GUEVARA (2012) [facility] [address] [place] [address] MCV (RBC) [Entitic vol] 86.9 fL Normal 80.6-99 [facility] Comment on above: Performed By: #### 4 [id number], [id number], [id number], [id number] #### HO GUEVARA (2012) [facility] [address] [place] [address] Monocytes/100 WBC (Bld) 8.5 % Normal [facility] Comment on above: Performed By: #### 4 [id number], [id number], [id number], [id number] #### HO GUEVARA (2012) [facility] [address] [place] [address] Neutrophils/100 WBC (Bld) 59.1 % Normal [facility] Comment on above: Performed By: #### 4 [id number], [id number], [id number], [id number] #### HO GUEVARA (2012) [facility] [address] [place] [address] NUCLEATED RED BLOOD CELLS AUTO 0.0 % Normal 0.0-1.0 [facility] Comment on above: Performed By: #### 4 [id number], [id number], [id number], [id number] #### HO GUEVARA (2012) [facility] [address] [place] [address] PLATELET COUNT 266 x10*3/uL Normal 150-400 [facility] Comment on above: Performed By: #### 4 [id number], [id number], [id number], [id number] #### HO GUEVARA (2012) [facility] [address] [place] [address] RED BLOOD CELL COUNT 5.82 x10*6/uL High 3.70-5.70 [facility] Comment on above: Performed By: #### 4 [id number], [id number], [id number], [id number] #### HO GUEVARA (2012) [facility] [address] [address] WHITE BLOOD CELLS 7.4 x10*3/uL Normal 4.3-10.3 [facility] Comment on above: Performed By: #### 4 [id number], [id number], [id number], [id number] #### HO GUEVARA (2012) [facility] [address] [address] CBC with Differentialon 10-31 Absolute Immature Granulocytes 0.0 [facility] Age [Time] 86.9 fL 80.6 - 99 fL [facility] Age [Time] 28.9 pg 27.0 - 34.2 pg [facility] Age [Time] 33.2 g/dL 31.4 - 36.2 g/dL [facility] B. burgdorferi IgM IB Ql (CSF) 28.5 % [facility] Basophils (Bld) [#/Vol] 0.0 10*3/uL [facility] Basophils/100 WBC (Body fld) 0.4 % [facility] Eosinophils (Bld) [#/Vol] 2.1 10*3/uL [facility] Eosinophils (Bld) [#/Vol] 0.6 10*3/uL [facility] Eosinophils (Bld) [#/Vol] 0.2 10*3/uL [facility] Eosinophils/100 WBC (Bld) 3.2 % [facility] Erythrocyte distribution width (RBC) [Ratio] 14.0 % 11.5 - 14.5 % [facility] Hematocrit (Bld) [Volume fraction] 50.6 % 37.7 - 51.1 % [facility] Hexanoylglycine (U) [Moles/Vol] 16.8 g/dL 12.8 - 17.7 g/dL [facility] Immature granulocytes/100 WBC (Bld) 0.3 % [facility] Interpretation and review of laboratory results Abnormal [facility] Monocytes/100 WBC (Bld) 8.5 % [facility] Neurotensin (P) [Mass/Vol] 59.1 % [facility] Neutrophils (Bld) [#/Vol] 4.4 10*3/uL [facility] Nucleated RBC/100 WBC (Bld) [Ratio] 0.0 % 0.0 - 1.0 % [facility] Platelets (Bld) [#/Vol] 266 10*3/uL [facility] RBC (Bld) [#/Vol] 5.82 10*6/uL High [facility] WBC (Bld) [#/Vol] 7.4 10*3/uL [facility] POTASSIUMon 11-24-2023 Potassium [Moles/Vol] 3.5 mmol/L Low 3.6-5.1 [facility] Comment on above: Performed By: #### 4 [id number], [id number] #### JACQU[address] Potassium Levelon 11-24-2023 Interpretation and review of laboratory results Abnormal [facility] Potassium [Moles/Vol] 3.5 mmol/L Low 3.6 - 5.1 mmol/L 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 * Recommend physiologic arterial testing. Study Info Technical Quality: Technically Difficult Exam Type: VL LOWER EXT ARTERIAL DUPLEX - BILATERAL Indications Weak peripheral pulses - Patient Info Name: Azalia Matthew Age: 53 years : 1970 Gender: Male Ht: 72 in Wt: 500 lbs BSA: 3.54 m2 Exam Date: 11/24/2023 11:15 AM Patient Status: OBV Admit Date: 11/22/2023 A non-invasive vascular duplex imaging study of the lower extremity arteries was performed using two-dimensional evaluation, color flow and spectral Doppler analysis. Staff Primary Care Physician: None Pcp Cooler Conveyor Loader: Tamera Reina RVT Ordering Physician: Josias Coles CHANNEL MACHINE OPERATOR SPR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 Attending Physician: Lizbeth Wilson MD History/Risk Factors Obesity: Yes Tobacco Use: Current - Every Day History/Risk Factors open ulcerative wounds on bilat ankles. Right LE Arterial Findings Low color flow/spectral Doppler flow velocities with intraluminal plaque noted in the distal right anterior tibial artery consistent with subtotal occlusion. Left LE Arterial Findings Low color flow/spectral Doppler flow velocities with intraluminal plaque noted in the distal left anterior tibial artery consistent with a subtotal occlusion. Segmental BP Findings Unable to perform ABIs due to patient's low pain tolerance in bilateral ankle areas. Lower Extremity Arterial Measurements RIGHT Iliac PSV (cm/s): 184 cm/s RIGHT Iliac Waveform: Triphasic RIGHT PLATE DRILLER PSV (cm/s): 249 cm/s RIGHT PLATE DRILLER Waveform: Triphasic RIGHT PFA PSV (cm/s): 65 cm/s RIGHT PFA Waveform: Triphasic RIGHT Prox SFA PSV (cm/s): 147 cm/s RIGHT Prox SFA Waveform: Triphasic RIGHT Mid SFA PSV (cm/s): 134 cm/s RIGHT Mid SFA Waveform: Triphasic RIGHT Dist SFA PSV (cm/s): 102 cm/s RIGHT Dist SFA Waveform: Triphasic RIGHT Prox Pop PSV (cm/s): 132 cm/s RIGHT Prox Pop Waveform: Triphasic RIGHT Dist Pop PSV (cm/s): 108 cm/s RIGHT Dist Pop Waveform: Triphasic RIGHT Prox BURNER TENDER PSV (cm/s): 41 cm/s RIGHT Prox BURNER TENDER Waveform: Triphasic RIGHT Mid BURNER TENDER PSV (cm/s): 113 cm/s RIGHT Mid BURNER TENDER Waveform: Triphasic RIGHT Dist BURNER TENDER PSV (cm/s): 75 cm/s RIGHT Dist BURNER TENDER Waveform: Triphasic RIGHT Prox FLACA PSV (cm/s): 77 cm/s RIGHT Prox FLACA Waveform: Biphasic RIGHT Mid FLACA PSV (cm/s): 16 cm/s RIGHT Mid FLACA Waveform: Monophasic RIGHT Dist FLACA PSV (cm/s): 28 cm/s RIGHT Dist FLACA Waveform: Monophasic LEFT Iliac PSV (cm/s): 173 cm/s LEFT Iliac Waveform: Triphasic LEFT PLATE DRILLER PSV (cm/s): 172 cm/s LEFT PLATE DRILLER Waveform: Triphasic LEFT PFA PSV (cm/s): 266 cm/s LEFT PFA Waveform: Triphasic LEFT Prox SFA PSV (cm/s): 237 cm/s LEFT Prox SFA Waveform: Triphasic LEFT Mid SFA PSV (cm/s): 131 cm/s LEFT Mid SFA Waveform: Triphasic LEFT Dist SFA PSV (cm/s): 105 cm/s LEFT Dist SFA Waveform: Triphasic LEFT Prox Pop PSV (cm/s): 129 cm/s LEFT Prox Pop Waveform: Triphasic LEFT Dist Pop PSV (cm/s): 89 cm/s LEFT Dist Pop Waveform: Triphasic LEFT Prox BURNER TENDER PSV (cm/s): 102 cm/s LEFT Prox BURNER TENDER Waveform: Triphasic LEFT Mid BURNER TENDER PSV (cm/s): 59 cm/s LEFT Mid BURNER TENDER Waveform: Triphasic LEFT Dist BURNER TENDER PSV (cm/s): 65 cm/s LEFT Dist BURNER TENDER Waveform: Triphasic LEFT Prox FLACA PSV (cm/s): 82 cm/s LEFT Prox FLACA Waveform: Biphasic LEFT Mid FLACA PSV (cm/s): 113 cm/s LEFT Mid FLACA Waveform: Monophasic LEFT Dist FLACA PSV (cm/s): 51 cm/s LEFT Dist FLACA Waveform: Monophasic Report Signatures Finalized by Montse Plasencia DO on 11/24/2023 01:22 PM Doppler Findings Triphasic waveform demonstrated in the right femoral artery, superficial femoral artery, popliteal artery and posterior tibial artery. Monophasic waveform demonstrated in the right dorsalis pedis artery consistent with moderate peripheral vascular disease. Triphasic waveform demonstrated in the left femoral artery, superficial femoral artery, popliteal artery and posterior tibial artery. Monophasic waveform demonstrated in the left dorsalis pedis artery consistent with moderate peripheral vascular disease. Very difficult to visualize posterior tibial and anterior tibial arteries due to patient's body habitus and tissue changes bilaterally. Doppler RIGHT Femoral : Triphasic RIGHT Superficial Femoral : Triphasic RIGHT Popliteal : Triphasic RIGHT Posterior Tibial : Triphasic RIGHT Dorsalis Pedis : Monophasic LEFT Femoral : Triphasic LEFT Superficial Femoral : Triphasic LEFT Popliteal : Triphasic LEFT Posterior Tibial : Triphasic LEFT Dorsalis Pedis : Monophasic Montse Davies DO - 11/24/2023 IMPRESSION: * Significant infrapopliteal artery disease noted in both legs. * Recommend physiologic arterial testing. Study Info Technical Quality: Technically Difficult Exam Type: VL LOWER EXT ARTERIAL DUPLEX - BILATERAL Indications Weak peripheral pulses - Patient Info Name: Azalia Matthew Age: 53 years : 1970 Gender: Male Ht: 72 in Wt: 500 lbs BSA: 3.54 m2 Exam Date: 11/24/2023 11:15 AM Patient Status: OBV Admit Date: 11/22/2023 A non-invasive vascular duplex imaging study of the lower extremity arteries was performed using two-dimensional evaluation, color flow and spectral Doppler analysis. Staff Primary Care Physician: Dillon Pcp Cooler Conveyor Loader: Tamera Reina RVT Ordering Physician: Josias Coles APRN SPR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 Attending Physician: Lizbeth Wilson MD History/Risk Factors Obesity: Yes Tobacco Use: Current - Every Day History/Risk Factors open ulcerative wounds on bilat ankles. Right LE Arterial Findings Low color flow/spectral Doppler flow velocities with intraluminal plaque noted in the distal right anterior tibial artery consistent with subtotal occlusion. Left LE Arterial Findings Low color flow/spectral Doppler flow velocities with intraluminal plaque noted in the distal left anterior tibial artery consistent with a subtotal occlusion. Segmental BP Findings Unable to perform ABIs due to patient's low pain tolerance in bilateral ankle areas. Lower Extremity Arterial Measurements RIGHT Iliac PSV (cm/s): 184 cm/s RIGHT Iliac Waveform: Triphasic RIGHT PLATE DRILLER PSV (cm/s): 249 cm/s RIGHT PLATE DRILLER Waveform: Triphasic RIGHT PFA PSV (cm/s): 65 cm/s RIGHT PFA Waveform: Triphasic RIGHT Prox SFA PSV (cm/s): 147 cm/s RIGHT Prox SFA Waveform: Triphasic RIGHT Mid SFA PSV (cm/s): 134 cm/s RIGHT Mid SFA Waveform: Triphasic RIGHT Dist SFA PSV (cm/s): 102 cm/s RIGHT Dist SFA Waveform: Triphasic RIGHT Prox Pop PSV (cm/s): 132 cm/s RIGHT Prox Pop Waveform: Triphasic RIGHT Dist Pop PSV (cm/s): 108 cm/s RIGHT Dist Pop Waveform: Triphasic RIGHT Prox BURNER TENDER PSV (cm/s): 41 cm/s RIGHT Prox BURNER TENDER Waveform: Triphasic RIGHT Mid BURNER TENDER PSV (cm/s): 113 cm/s RIGHT Mid BURNER TENDER Waveform: Triphasic RIGHT Dist BURNER TENDER PSV (cm/s): 75 cm/s RIGHT Dist BURNER TENDER Waveform: Triphasic RIGHT Prox FLACA PSV (cm/s): 77 cm/s RIGHT Prox FLACA Waveform: Biphasic RIGHT Mid FLACA PSV (cm/s): 16 cm/s RIGHT Mid FLACA Waveform: Monophasic RIGHT Dist FLACA PSV (cm/s): 28 cm/s RIGHT Dist FLACA Waveform: Monophasic LEFT Iliac PSV (cm/s): 173 cm/s LEFT Iliac Waveform: Triphasic LEFT PLATE DRILLER PSV (cm/s): 172 cm/s LEFT PLATE DRILLER Waveform: Triphasic LEFT PFA PSV (cm/s): 266 cm/s LEFT PFA Waveform: Triphasic LEFT Prox SFA PSV (cm/s): 237 cm/s LEFT Prox SFA Waveform: Triphasic LEFT Mid SFA PSV (cm/s): 131 cm/s LEFT Mid SFA Waveform: Triphasic LEFT Dist SFA PSV (cm/s): 105 cm/s LEFT Dist SFA Waveform: Triphasic LEFT Prox Pop PSV (cm/s): 129 cm/s LEFT Prox Pop Waveform: Triphasic LEFT Dist Pop PSV (cm/s): 89 cm/s LEFT Dist Pop Waveform: Triphasic LEFT Prox BURNER TENDER PSV (cm/s): 102 cm/s LEFT Prox BURNER TENDER Waveform: Triphasic LEFT Mid BURNER TENDER PSV (cm/s): 59 cm/s LEFT Mid BURNER TENDER Waveform: Triphasic LEFT Dist BURNER TENDER PSV (cm/s): 65 cm/s LEFT Dist BURNER TENDER Waveform: Triphasic LEFT Prox FLACA PSV (cm/s): 82 cm/s LEFT Prox FLACA Waveform: Biphasic LEFT Mid FLACA PSV (cm/s): 113 cm/s LEFT Mid FLACA Waveform: Monophasic LEFT Dist FLACA PSV (cm/s): 51 cm/s LEFT Dist FLACA Waveform: Monophasic Report Signatures Finalized by Montse Plasencia DO on 11/24/2023 01:22 PM Doppler Findings Triphasic waveform demonstrated in the right femoral artery, superficial femoral artery, popliteal artery and posterior tibial artery. Monophasic waveform demonstrated in the right dorsalis pedis artery consistent with moderate peripheral vascular disease. Triphasic waveform demonstrated in the left femoral artery, superficial femoral artery, popliteal artery and posterior tibial artery. Monophasic waveform demonstrated in the left dorsalis pedis artery consistent with moderate peripheral vascular disease. Very difficult to visualize posterior tibial and anterior tibial arteries due to patient's body habitus and tissue changes bilaterally. Doppler RIGHT Femoral : Triphasic RIGHT Superficial Femoral : Triphasic RIGHT Popliteal : Triphasic RIGHT Posterior Tibial : Triphasic RIGHT Dorsalis Pedis : Monophasic LEFT Femoral : Triphasic LEFT Superficial Femoral : Triphasic LEFT Popliteal : Triphasic LEFT Posterior Tibial : Triphasic LEFT Dorsalis Pedis : Monophasic [facility] Radiology Study observation (narrative) [facility] US.doppler Lower extremity a rtery - bilateralOrdered By: Montse Plasencia on 11-24-2023 [facility] BASIC METABOLIC PANELon 07-2 Anion gap [Moles/Vol] 5 mmol/L Low 8-12 [facility] Comment on above: Performed By: #### 4 [id number], [id number], [id number], [id number] #### [place] GUEVARA (2012) [facility] [address] [place] [address] Calcium [Mass/Vol] 8.4 mg/dL Normal 8.4-10.4 [facility] Comment on above: Performed By: #### 4 [id number], [id number], [id number], [id number] #### HO GUEVARA (2012) [facility] [address] [place] [address] Chloride [Moles/Vol] 102 mmol/L Normal 96-109 [facility] Comment on above: Performed By: #### 4 [id number], [id number], [id number], [id number] #### HO GUEVARA (2012) [facility] [address] [place] [address] CO2 [Moles/Vol] 30 mmol/L Normal 22-30 [facility] Comment on above: Performed By: #### 4 [id number], [id number], [id number], [id number] #### HO GUEVARA (2012) [facility] [address] [place] [address] Creatinine [Mass/Vol] 0.75 mg/dL Normal 0.66-1.25 [facility] Comment on above: Performed By: #### 4 [id number], [id number], [id number], [id number] #### HO GUEVARA (2012) [facility] [address] [place] [address] GLOMERULAR FILTRATION RATE ML/MIN/1.73 SQ M.PREDICTED 108.6 mL/min/1.73m*2 Normal >=60.0 [facility] Comment on above: Result Comment: eGFR calculation based on the Chronic Kidney Disease Epidemiology Collaboration (CKD-EPI) equation refit without adjustment for race. Categories in Chronic Kidney Disease (CKD) Category: GFR(mL/min/1.73m^2) Interpretation: G1* 90 or greater Normal or high G2* 60-89 Mild decrease G3a 45-59 Mild to moderate decrease G3b 30-44 Moderate to severe decrease G4 15-29 Severe decrease G5 14 or less Kidney failure *G1&G2: In the absence of evidence of kidney damage, neither GFR category G1 nor G2 fulfill the criteria for CKD Kidney Int Suppl.2013;3:1-150 Performed By: #### 4 [id number], [id number], [id number], [id number] #### HO GUEVARA (2012) [facility] [address] [place] [address] Glucose [Mass/Vol] 94 mg/dL Normal 65-100 [facility] Comment on above: Performed By: #### 4 [id number], [id number], [id number], [id number] #### HO GUEVARA (2012) [facility] [address] [address] Potassium [Moles/Vol] 3.5 mmol/L Low 3.6-5.1 [facility] Comment on above: Performed By: #### 4 [id number], [id number], [id number], [id number] #### HO GUEVARA (2012) [facility] [address] [place] [address] Sodium [Moles/Vol] 137 mmol/L Normal 135-147 [facility] Comment on above: Performed By: #### 4 [id number], [id number], [id number], [id number] #### HO GUEVARA (2012) [facility] [address] [place] [address] Urea nitrogen [Mass/Vol] 11 mg/dL Normal 8-26 [facility] Comment on above: Performed By: #### 4 [id number], [id number], [id number], [id number] #### HO GUEVARA (2012) [facility] [address] [address] Basic metabolic panel aka Ch em 8on 11-23-2023 Anion gap [Moles/Vol] 5 mmol/L Low 8 - 12 mmol/L [facility] Calcium [Mass/Vol] 8.4 mg/dL 8.4 - 10. 4 mg/dL [facility] Calcium hydrogen phosphate dihydrate crystals LM Ql (Urine sed) 11 mg/dL 8 - 26 mg/dL [facility] Chloride [Moles/Vol] 102 mmol/L 96 - 10 9 mmol/L [facility] CO2 (BldMV) [Moles/Vol] 30 mmol/L 22 - 30 mmol/L [facility] Creatinine [Mass/Vol] 0.75 mg/dL 0.66 - 1.25 mg/dL [facility] GFR/1.73 sq M.predicted among non-blacks MDRD (S/P/Bld) [Vol rate/Area] 108.6 mL/min/{1.73_m2} - PINF [facility] Comment on above: eGFR calculation bas ed on the Chronic Kidney Disease Epidemiology Collaboration (CKD-EPI) equation refit without adjustment for race. Categories in Chronic Kidney Disease (CKD) Category: GFR(mL/min/1.73m^2) Interpretation: G1* 90 or greater Normal or high G2* 60-89 Mild decrease G3a 45-59 Mild to moderate decrease G3b 30-44 Moderate to severe decrease G4 15-29 Severe decrease G5 14 or less Kidney failure *G1&G2: In the absence of evidence of kidney damage, neither GFR category G1 nor G2 fulfill the criteria for CKD Kidney Int Suppl.2013;3:1-150 Glucose [Mass/Vol] 94 mg/dL 65 - 100 mg/dL [facility] Interpretation and review of laboratory results Abnormal [facility] Potassium [Moles/Vol] 3.5 mmol/L Low 3.6 - 5.1 mmol/L [facility] Sodium [Moles/Vol] 137 mmol/L 135 - 147 mmol/L [facility] CBCon 11-23-2023 Age [Time] 89.2 fL 80.6 - 99 fL [facility] Age [Time] 29.2 pg 27.0 - 34.2 pg [facility] Age [Time] 32.7 g/dL 31.4 - 36.2 g/dL [facility] Erythrocyte distribution width (RBC) [Ratio] 14.4 % 11.5 - 14.5 % [facility] Hematocrit (Bld) [Volume fraction] 49.8 % 37.7 - 51.1 % [facility] Hexanoylglycine (U) [Moles/Vol] 16.3 g/dL 12.8 - 17.7 g/dL [facility] Interpretation and review of laboratory results Normal [facility] Platelets (Bld) [#/Vol] 259 10*3/uL [facility] RBC (Bld) [#/Vol] 5.58 10*6/uL [facility] WBC (Bld) [#/Vol] 8.1 10*3/uL [facility] Erythrocyte distribution width (RBC) [Ratio] 14.4 % Normal 11.5-14.5 [facility] Comment on above: Performed By: #### 4 [id number], [id number], [id number], [id number] #### HO GUEVARA (2012) [facility] [address] [place] [address] Hematocrit (Bld) [Volume fraction] 49.8 % Normal 37.7-51.1 [facility] Comment on above: Performed By: #### 4 [id number], [id number], [id number], [id number] #### [place] GUEVARA (2012) [facility] [address] [place] [address] Hemoglobin (Bld) [Mass/Vol] 16.3 g/dL Normal 12.8-17.7 [facility] Comment on above: Performed By: #### 4 [id number], [id number], [id number], [id number] #### HO GUEVARA (2012) [facility] [address] [place] [address] MCH (RBC) [Entitic mass] 29.2 pg Normal 27.0-34.2 [facility] Comment on above: Performed By: #### 4 [id number], [id number], [id number], [id number] #### HO GUEVARA (2012) [facility] [address] [place] [address] MCHC (RBC) [Mass/Vol] 32.7 g/dL Normal 31.4-36.2 [facility] Comment on above: Performed By: #### 4 [id number], [id number], [id number], [id number] #### HO GUEVARA (2012) [facility] [address] [place] [address] MCV (RBC) [Entitic vol] 89.2 fL Normal 80.6-99 [facility] Comment on above: Performed By: #### 4 [id number], [id number], [id number], [id number] #### [place] GUEVARA (2012) [facility] [address] [place] [address] PLATELET COUNT 259 x10*3/uL Normal 150-400 [facility] Comment on above: Performed By: #### 4 [id number], [id number], [id number], [id number] #### [place] GUEVARA (2012) [facility] [address] [place] [address] RED BLOOD CELL COUNT 5.58 x10*6/uL Normal 3.70-5.70 [facility] Comment on above: Performed By: #### 4 [id number], [id number], [id number], [id number] #### HO GUEVARA (2012) [facility] [address] [facility] [place] [address] WHITE BLOOD CELLS 8.1 x10*3/uL Normal 4.3-10.3 [facility] Comment on above: Performed By: #### 4 [id number], [id number], [id number] #### HO GUEVARA (2012) [facility] [address] [place] [address] Cardiac echo study Procedure on 11-23-2023 1. Technically diffi cult study due to poor acoustic windows. Definity used to enhance ultrasound images. 2. Left ventricular ejection fraction is normal, visually estimated at 60-65%. 3. The right ventricle is not well-visualized. 4. Valves are not well-visualized. No hemodynamically significant abnormalities identified. Patient Info Name: Azalia Matthew Age: 53 years : 1970 Gender: Male Ht: 72 in Wt: 510 lbs BSA: 3.57 m2 HR: 81 bpm BP: 119 / 73 mmHg Technical Quality: Technically difficult with Definity Patient Status: OBV Site: [facility] Current Location: [facility] [place] Exam Type: ECHOCARDIOGRAM WITH CONTRAST Study Info Indications - CHF Procedure(s) A complete two-dimensional, color flow and Doppler transthoracic echocardiogram was performed with Definity contrast to opacify the left ventricle and to improve the delineation of the left ventricle endocardial borders. Staff Primary Care Provider: None Pcp Ordering Provider: Canelo Cummins MD Cooler Conveyor Loader: Parrish Hanna RD, T History/Risk Factors Tobacco Use: Current - Every Day Left Ventricle Images inadequate for left ventricular wall thickness evaluation. Left ventricular segmental wall motion is normal. The left ventricular diastolic function is normal. Left ventricular ejection fraction is normal, visually estimated at 60-65%. Right Ventricle The right ventricle is not well-visualized. Left Atrium Left atrium is not well-visualized. Right Atrium Right atrium is not well-visualized. Aortic Valve Aortic valve is not well-visualized. No aortic valve stenosis per Doppler interrogation. There is no aortic valve regurgitation. Pulmonic Valve The pulmonic valve is not well visualized. Mitral Valve The mitral valve has not well visualized. There is no mitral valve stenosis. There is no mitral valve regurgitation. Tricuspid Valve The tricuspid valve leaflets are not well visualized. There is no tricuspid valve stenosis. There is no tricuspid valve regurgitation. Unable to estimate pulmonary artery systolic pressure due to inadequate tricuspid regurgitant envelope. Pericardium/Pleural No pericardial effusion identified. Inferior Vena Cava IVC is not well-visualized. Aorta Aortic root and ascending aorta are not well-visualized. Measurements Left Ventricular Outflow Tract Name Value Normal LVOT Doppler LVOT Peak Velocity 100 cm/s LVOT Mean Gradient 2 mmHg LVOT VTI 21 cm LVOT VTI/AV VTI Ratio 0.86 Mitral Valve Name Value Normal MV Doppler MV Peak Velocity 112 cm/s MV Mean Gradient 2 mmHg MV VTI 29 cm MV Decel [place] 325 cm/s2 MV PHT 83 ms MV Area (PHT) 2.7 cm2 4.0-5.0 MV Diastolic Function MV E Peak Velocity 75 cm/s MV A Peak Velocity 67 cm/s MV E/A 1.1 MV Annular TDI MV Septal e' Velocity 13.5 cm/s MV E/e' (Septal) 5.6 MV Lateral e' Velocity 18.6 cm/s MV E/e' (Lateral) 4.0 MV e' Average 16.05 cm/s MV E/e' (Average) 4.8 Aortic Valve Name Value Normal AV Doppler AV Peak Velocity 154 cm/s AV Mean Gradient 5 mmHg AV VTI 24.80 cm AV DI (Son) (more content not included)... Salo Barajas MD - 11/23/2023 IMPRESSION: 1. Technically difficult study due to poor acoustic windows. Definity used to enhance ultrasound images. 2. Left ventricular ejection fraction is normal, visually estimated at 60-65%. 3. The right ventricle is not well-visualized. 4. Valves are not well-visualized. No hemodynamically significant abnormalities identified. Patient Info Name: Azalia Matthew Age: 53 years : 1970 Gender: Male Ht: 72 in Wt: 510 lbs BSA: 3.57 m2 HR: 81 bpm BP: 119 / 73 mmHg Technical Quality: Technically difficult with Definity Patient Status: V Site: [facility] Current Location: [facility] [place] Exam Type: ECHOCARDIOGRAM WITH CONTRAST Study Info Indications - CHF Procedure(s) A complete two-dimensional, color flow and Doppler transthoracic echocardiogram was performed with Definity contrast to opacify the left ventricle and to improve the delineation of the left ventricle endocardial borders. Staff Primary Care Provider: None Pcp Ordering Provider: Canelo Cummins MD Cooler Conveyor Loader: Parrish Hanna [facility], RVT History/Risk Factors Tobacco Use: Current - Every Day Left Ventricle Images inadequate for left ventricular wall thickness evaluation. Left ventricular segmental wall motion is normal. The left ventricular diastolic function is normal. Left ventricular ejection fraction is normal, visually estimated at 60-65%. Right Ventricle The right ventricle is not well-visualized. Left Atrium Left atrium is not well-visualized. Right Atrium Right atrium is not well-visualized. Aortic Valve Aortic valve is not well-visualized. No aortic valve stenosis per Doppler interrogation. There is no aortic valve regurgitation. Pulmonic Valve The pulmonic valve is not well visualized. Mitral Valve The mitral valve has not well visualized. There is no mitral valve stenosis. There is no mitral valve regurgitation. Tricuspid Valve The tricuspid valve leaflets are not well visualized. There is no tricuspid valve stenosis. There is no tricuspid valve regurgitation. Unable to estimate pulmonary artery systolic pressure due to inadequate tricuspid regurgitant envelope. Pericardium/Pleural No pericardial effusion identified. Inferior Vena Cava IVC is not well-visualized. Aorta Aortic root and ascending aorta are not well-visualized. Measurements Left Ventricular Outflow Tract Name Value Normal LVOT Doppler LVOT Peak Velocity 100 cm/s LVOT Mean Gradient 2 mmHg LVOT VTI 21 cm LVOT VTI/AV VTI Ratio 0.86 Mitral Valve Name Value Normal MV Doppler MV Peak Velocity 112 cm/s MV Mean Gradient 2 mmHg MV VTI 29 cm MV Decel [place] 325 cm/s2 MV PHT 83 ms MV Area (PHT) 2.7 cm2 4.0-5.0 MV Diastolic Function MV E Peak Velocity 75 cm/s MV A Peak Velocity 67 cm/s MV E/A 1.1 MV Annular TDI MV Septal e' Velocity 13.5 cm/s MV E/e' (Septal) 5.6 MV Lateral e' Velocity 18.6 cm/s MV E/e' (Lateral) 4.0 MV e' Average 16.05 cm/s MV E/e' (Average) 4.8 Aortic Valve Name Value Normal AV Doppler AV Peak Velocity 154 cm/s AV Mean Gradient 5 mmHg AV VTI 24.80 cm AV DI (Son) 0.65 Ventricles Name Value Normal LV Dimensions 2D/MM IVS Diastolic Thickness (2D) 1.2 cm 0.6-1.0 LVID Diastole (2D) 4.5 cm 4.2-5.8 LVIW Diastolic Thickness (2D) 1.4 cm 0.6-1.0 LVID Systole (2D) 3.1 cm 2.5-4.0 LV Mass (2D Cubed) 220.29 g 88.00-224.00 LV Mass Index (2D Cubed) 62 g/m2 49-115 Relative Wall Thickness (2D) 0.60 LV Fractional Shortening/Ejection Fraction 2D/MM LV EF (BP MOD) 68 % 52-72 LV EF (4C MOD) 63 % LV Stroke Volume (4C MOD) 83 cm3 LV EF (4C A-L) 64 % LV EF (2C A-L) 74 % LV EF (2C MOD) 73 % LV Fractional (more content not included)... [facility] Radiology Study observation (narrative) [facility] Cardiac echo study Procedure Ordered By: Salo Plaza on 11-23-2023 [facility] Work Phone: PROCALCITONINon 11-23-2023 PROCALCITONIN 0.075 ng/mL Normal <=0.078 [facility] Comment on above: Result Comment: Proc alcitonin Interpretation Guidelines: Diagnosis of Systemic Bacterial Infection/Sepsis/or Septic Shock <0.50 ng/mL: Low risk for sepsis; localized infection possible. Recommend retest within 6-24hrs. >=0.50-<2.0 ng/mL: Sepsis is possible. Interpret in context of clinical condition of the patient. Recommend retest within 6-24hrs. >=2.0 ng/mL: High risk for sepsis and /or septic shock. >10.0 ng/mL: Severe sepsis or septic shock. Diagnosis of Lower Respiratory Tract Infection (LRTI) and Antibiotic Therapy Recommendation <0.10 ng/mL: Bacterial infection very unlikely. Antibiotics strongly discouraged. 0.10-0.25 ng/mL: Bacterial infection unlikely. Antibiotics discouraged. 0.26-0.50 ng/mL: Bacterial infection likely. Antibiotics encouraged. >0.51 ng/mL: Bacterial infection very likely. Antibiotics strongly encouraged. Performed By: #### 4 [id number], [id number], [id number] #### HO GUEVARA (2013) [facility] [address] [place] [address] Procalcitoninon 11-23-2023 Interpretation and review of laboratory results Normal Jacqueline [employer] [facility] Procainamide [Mass/Vol] 0.075 ng/mL NINF - 0.078 ng/mL [facility] Comment on above: Procalcitonin Interp retation Guidelines: Diagnosis of Systemic Bacterial Infection/Sepsis/or Septic Shock <0.50 ng/mL: Low risk for sepsis; localized infection possible. Recommend retest within 6-24hrs. >=0.50-<2.0 ng/mL: Sepsis is possible. Interpret in context of clinical condition of the patient. Recommend retest within 6-24hrs. >=2.0 ng/mL: High risk for sepsis and /or septic shock. >10.0 ng/mL: Severe sepsis or septic shock. Diagnosis of Lower Respiratory Tract Infection (LRTI) and Antibiotic Therapy Recommendation <0.10 ng/mL: Bacterial infection very unlikely. Antibiotics strongly discouraged. 0.10-0.25 ng/mL: Bacterial infection unlikely. Antibiotics discouraged. 0.26-0.50 ng/mL: Bacterial infection likely. Antibiotics encouraged. >0.51 ng/mL: Bacterial infection very likely. Antibiotics strongly encouraged. Jacqueline [employer] [facility] US.doppler Lower extremity v ein - bilateralon 11-23-2023 * No evidence of corinna p or superficial venous thrombosis in the bilateral lower extremities. Study Info Technical Quality: Technically Difficult Exam Type: VL LOWER EXTREMITY VENOUS DUPLEX BILATERAL Indications PAIN, REDNESS, WARMTH, SWELLING - Patient Info Name: Azalia Matthew Age: 53 years : 1970 Gender: Male Exam Date: 11/22/2023 3:23 PM Patient Status: OBV Admit Date: 11/22/2023 Venous duplex examination using B-mode, color flow and spectral Doppler was performed. Staff Primary Care Physician: None Pcp Cooler Conveyor Loader: Libertad Connelly RDCS, RVT Ordering Physician: Shawna Sotelo APRN LOOM CHECKER Attending Physician: Lizbeth Wilson MD History/Risk Factors Tobacco Use: Current - Every Day Bilateral Lower Extremity Findings Bilateral lower extremities system are compressible with normal venous flow dynamics including spontaneous flow, respiratory phasic variation, and augmentation. No evidence of deep vein thrombosis or superficial thrombosis in the right and left lower extremity. The following vessels peroneal vein of the bilateral lower extremities were not visualized due to vessel depth and size. Right Common Femoral: Complete Comp Right Common Femoral: Normal Phasicity Right Common Femoral: No Thrombus Right Prox Femoral: Complete Comp Right Prox Femoral: Normal Phasicity Right Prox Femoral: No Thrombus Right Peroneal: Not Visualized Right Profunda Femoral: Complete Comp Right Profunda Femoral: Normal Phasicity Right Profunda Femoral: No Thrombus Right Popliteal: Complete Comp Right Popliteal: Normal Phasicity Right Popliteal: No Thrombus Right Posterior Tibial: Complete Comp Right Posterior Tibial: Normal Phasicity Right Posterior Tibial: No Thrombus Right Gastrocnemius: Complete Comp Right Gastrocnemius: No Thrombus Right Great Saphenous: Complete Comp Right Great Saphenous: Normal Phasicity Right Great Saphenous: No Thrombus Right Small Saphenous: Complete Comp Right Small Saphenous: No Thrombus Right Mid Femoral: Complete Comp Right Mid Femoral: Normal Phasicity Right Mid Femoral: No Thrombus Right Distal Femoral: Complete Comp Right Distal Femoral: Normal Phasicity Right Distal Femoral: No Thrombus Right SFJ: Complete Comp Right SFJ: Normal Phasicity Right SFJ: No Thrombus Left Prox Femoral: Complete Comp Left Prox Femoral: Normal Phasicity Left Prox Femoral: No Thrombus Left Peroneal: Not Visualized Left Popliteal: Complete Comp Left Popliteal: Normal Phasicity Left Popliteal: No Thrombus Left Posterior Tibial: Complete Comp Left Posterior Tibial: Normal Phasicity Left Posterior Tibial: No Thrombus Left Gastrocnemius: Complete Comp Left Gastrocnemius: No Thrombus Left Common Femoral: Complete Comp Left Common Femoral: Normal Phasicity Left Common Femoral: No Thrombus Left Profunda Femoral: Complete Comp Left Profunda Femoral: Normal Phasicity Left Profunda Femoral: No Thrombus Left Great Saphenous: Complete Comp Left Great Saphenous: Normal Phasicity Left Great Saphenous: No Thrombus Left Small Saphenous: Complete Comp Left Small Saphenous: No Thrombus Left Mid Femoral: Complete Comp Left Mid Femoral: Normal Phasicity Left Mid Femoral: No Thrombus Left Distal Femoral: Complete Comp Left Distal Femoral: Normal Phasicity Left Distal Femoral: No Thrombus Left SFJ: Complete Comp Left SFJ: Normal Phasicity Left SFJ: No Thrombus Report Signatures Finalized by Lizbeth Don DO on 11/23/2023 09:31 AM Lizbeth Parisi DO - 11/25/2023 IMPRESSION: * No evidence of deep or superficial venous thrombosis in the bilateral lower extremities. Study Info Technical Quality: Technically Difficult Exam Type: VL LOWER EXTREMITY VENOUS DUPLEX BILATERAL Indications PAIN, REDNESS, WARMTH, SWELLING - Patient Info Name: Azalia Matthew Age: 53 years : 1970 Gender: Male Exam Date: 11/22/2023 3:23 PM Patient Status: OBV Admit Date: 11/22/2023 Venous duplex examination using B-mode, color flow and spectral Doppler was performed. Staff Primary Care Physician: None Pcp Cooler Conveyor Loader: Libertad Connelly RDCS, RVT Ordering Physician: Shawna Sotelo APRN LOOM CHECKER Attending Physician: Lizbeth Wilson MD History/Risk Factors Tobacco Use: Current - Every Day Bilateral Lower Extremity Findings Bilateral lower extremities system are compressible with normal venous flow dynamics including spontaneous flow, respiratory phasic variation, and augmentation. No evidence of deep vein thrombosis or superficial thrombosis in the right and left lower extremity. The following vessels peroneal vein of the bilateral lower extremities were not visualized due to vessel depth and size. Right Common Femoral: Complete Comp Right Common Femoral: Normal Phasicity Right Common Femoral: No Thrombus Right Prox Femoral: Complete Comp Right Prox Femoral: Normal Phasicity Right Prox Femoral: No Thrombus Right Peroneal: Not Visualized Right Profunda Femoral: Complete Comp Right Profunda Femoral: Normal Phasicity Right Profunda Femoral: No Thrombus Right Popliteal: Complete Comp Right Popliteal: Normal Phasicity Right Popliteal: No Thrombus Right Posterior Tibial: Complete Comp Right Posterior Tibial: Normal Phasicity Right Posterior Tibial: No Thrombus Right Gastrocnemius: Complete Comp Right Gastrocnemius: No Thrombus Right Great Saphenous: Complete Comp Right Great Saphenous: Normal Phasicity Right Great Saphenous: No Thrombus Right Small Saphenous: Complete Comp Right Small Saphenous: No Thrombus Right Mid Femoral: Complete Comp Right Mid Femoral: Normal Phasicity Right Mid Femoral: No Thrombus Right Distal Femoral: Complete Comp Right Distal Femoral: Normal Phasicity Right Distal Femoral: No Thrombus Right SFJ: Complete Comp Right SFJ: Normal Phasicity Right SFJ: No Thrombus Left Prox Femoral: Complete Comp Left Prox Femoral: Normal Phasicity Left Prox Femoral: No Thrombus Left Peroneal: Not Visualized Left Popliteal: Complete Comp Left Popliteal: Normal Phasicity Left Popliteal: No Thrombus Left Posterior Tibial: Complete Comp Left Posterior Tibial: Normal Phasicity Left Posterior Tibial: No Thrombus Left Gastrocnemius: Complete Comp Left Gastrocnemius: No Thrombus Left Common Femoral: Complete Comp Left Common Femoral: Normal Phasicity Left Common Femoral: No Thrombus Left Profunda Femoral: Complete Comp Left Profunda Femoral: Normal Phasicity Left Profunda Femoral: No Thrombus Left Great Saphenous: Complete Comp Left Great Saphenous: Normal Phasicity Left Great Saphenous: No Thrombus Left Small Saphenous: Complete Comp Left Small Saphenous: No Thrombus Left Mid Femoral: Complete Comp Left Mid Femoral: Normal Phasicity Left Mid Femoral: No Thrombus Left Distal Femoral: Complete Comp Left Distal Femoral: Normal Phasicity Left Distal Femoral: No Thrombus Left SFJ: Complete Comp Left SFJ: Normal Phasicity Left SFJ: No Thrombus Report Signatures Finalized by Lizbeth Don DO on 11/23/2023 09:31 AM [facility] BASIC METABOLIC PANELon 07-2 Anion gap [Moles/Vol] 8 mmol/L Normal 8-12 [facility] Comment on above: Performed By: #### 4 [id number], [id number] #### HO GUEVARA (2012) [facility] [address] [place] [address] Calcium [Mass/Vol] 8.5 mg/dL Normal 8.4-10.4 [facility] Comment on above: Performed By: #### 4 [id number], [id number] #### HO GUEVARA (2012) [facility] [address] [place] [address] Chloride [Moles/Vol] 103 mmol/L Normal 96-109 [facility] Comment on above: Performed By: #### 4 [id number], [id number], [id number], [id number] #### HO GUEVARA (2012) [facility] [address] [place] [address] CO2 [Moles/Vol] 27 mmol/L Normal 22-30 [facility] Comment on above: Performed By: #### 4 [id number], [id number], [id number] #### HO GUEVARA (2012) [facility] [address] [place] [address] Creatinine [Mass/Vol] 0.66 mg/dL Normal 0.66-1.25 [facility] [facility] Comment on above: Performed By: #### 4 [id number], [id number], [id number] #### HO GUEVARA (2012) [facility] [address] [place] [address] GLOMERULAR FILTRATION RATE ML/MIN/1.73 SQ M.PREDICTED 112.9 mL/min/1.73m*2 Normal >=60.0 [facility] Comment on above: Result Comment: eGFR calculation based on the Chronic Kidney Disease Epidemiology Collaboration (CKD-EPI) equation refit without adjustment for race. Categories in Chronic Kidney Disease (CKD) Category: GFR(mL/min/1.73m^2) Interpretation: G1* 90 or greater Normal or high G2* 60-89 Mild decrease G3a 45-59 Mild to moderate decrease G3b 30-44 Moderate to severe decrease G4 15-29 Severe decrease G5 14 or less Kidney failure *G1&G2: In the absence of evidence of kidney damage, neither GFR category G1 nor G2 fulfill the criteria for CKD Kidney Int Suppl.2013;3:1-150 Performed By: #### 4 [id number], [id number] #### HO GUEVARA (2012) [facility] [address] [place] [address] Glucose [Mass/Vol] 168 mg/dL High 65-100 [facility] [employer] [facility] Comment on above: Performed By: #### 4 [id number], [id number], [id number], [id number] #### HO GUEVARA (2012) [facility] [address] [place] [address] Potassium [Moles/Vol] 3.5 mmol/L Low 3.6-5.1 [facility] [facility] Comment on above: Performed By: #### 4 [id number], [id number], [id number], [id number] #### HO GUEVARA (2012) [facility] [address] [place] [address] Sodium [Moles/Vol] 138 mmol/L Normal 135-147 [facility] [employer] [facility] Comment on above: Performed By: #### 4 [id number], [id number], [id number], [id number] #### HO GUEVARA (2012) [facility] [address] [place] [address] Urea nitrogen [Mass/Vol] 9 mg/dL Normal 8-26 [facility] Comment on above: Performed By: #### 4 [id number], [id number], [id number], [id number] #### HO GUEVARA (2012) [facility] [address] [place] [address] BLOOD CULTURE WITH GRAM STAI Non 11-22-2023 BLOOD CULTURE WITH GRAM STAIN BLOOD CULTURE GROWTH No Growth at 120 Hrs Normal [facility] Comment on above: Order Comment: Each culture must be from a different peripheral site. Do not draw from a central venous access device unless ordered by a physician. Performed By: #### 4 [id number], [id number], [id number], [id number] #### HO GUEVARA (2012) [facility] [address] [place] [address] BLOOD CULTURE WITH GRAM STAIN BLOOD CULTURE GROWTH 206COAGULASE NEGATIVE STAPH Coagulase negative Staph Growth in 1 bottle of 2 cultures drawn PROBABLE CONTAMINANT If Physician requests additional work-up contact Microbiology Lab at ext. [phone] within 5 days. GRAM STAIN OF CULTURE Gram positive cocci in clusters Growth in 1 bottle of 2 cultures drawn Normal [facility] Comment on above: Order Comment: Each culture must be from a different peripheral site. Do not draw from a central venous access device unless ordered by a physician. Performed By: #### 4 [id number] #### JACQUELINE [address] BNPon 11-22-2023 Interpretation and review of laboratory results Abnormal [facility] Nucleated RBC/100 WBC (Bld) [Ratio] 315 pg/mL High NINF - 299 pg/mL [facility] Comment on above: [place]: Result In determinate Consider other causes of NT-proBNP elevation. BRAIN NATRIURETIC PEPTIDEon 11-22-2023 Natriuretic peptide B (Bld) [Mass/Vol] 315 pg/mL High <=299 [facility] Comment on above: Result Comment: [place]: Result Indeterminate Consider other causes of NT-proBNP elevation. Performed By: #### 4 [id number], [id number], [id number] #### HO GUEVARA (2013) [facility] [address] [place] [address] Basic metabolic panel aka Ch em 811-22-2023 Anion gap [Moles/Vol] 8 mmol/L 8 - 12 mmol/L [facility] Calcium [Mass/Vol] 8.5 mg/dL 8.4 - 10. 4 mg/dL [facility] Calcium hydrogen phosphate dihydrate crystals LM Ql (Urine sed) 9 mg/dL 8 - 26 mg/dL [facility] Chloride [Moles/Vol] 103 mmol/L 96 - 10 9 mmol/L [facility] CO2 (BldMV) [Moles/Vol] 27 mmol/L 22 - 30 mmol/L [facility] Creatinine [Mass/Vol] 0.66 mg/dL 0.66 - 1.25 mg/dL [facility] GFR/1.73 sq M.predicted among non-blacks MDRD (S/P/Bld) [Vol rate/Area] 112.9 mL/min/{1.73_m2} - PINF [facility] Comment on above: eGFR calculation bas ed on the Chronic Kidney Disease Epidemiology Collaboration (CKD-EPI) equation refit without adjustment for race. Categories in Chronic Kidney Disease (CKD) Category: GFR(mL/min/1.73m^2) Interpretation: G1* 90 or greater Normal or high G2* 60-89 Mild decrease G3a 45-59 Mild to moderate decrease G3b 30-44 Moderate to severe decrease G4 15-29 Severe decrease G5 14 or less Kidney failure *G1&G2: In the absence of evidence of kidney damage, neither GFR category G1 nor G2 fulfill the criteria for CKD Kidney Int Suppl.2013;3:1-150 Glucose [Mass/Vol] 168 mg/dL High 65 - 100 mg/dL [facility] [facility] Interpretation and review of laboratory results Abnormal [facility] Potassium [Moles/Vol] 3.5 mmol/L Low 3.6 - 5.1 mmol/L [facility] Sodium [Moles/Vol] 138 mmol/L 135 - 147 mmol/L [facility] CBC AND DIFFERENTIALon 11-21 ABSOLUTE BASOPHIL 0.0 x10*3/uL Normal 0.0-0.1 [facility] Comment on above: Performed By: #### 4 [id number], [id number], [id number], [id number] #### HO GUEVARA (2012) [facility] [address] [place] [address] ABSOLUTE EOSINOPHIL 0.2 x10*3/uL Normal 0.1-0.3 [facility] Comment on above: Performed By: #### 4 [id number], [id number], [id number] #### HO GUEVARA (2012) [facility] [address] [place] [address] ABSOLUTE IMMATURE GRANULOCYTES 0.0 x10*3/uL Normal 0.0-0.1 [facility] Comment on above: Performed By: #### 4 [id number], [id number], [id number] #### HO GUEVARA (2012) [facility] [address] [place] [address] ABSOLUTE LYMPH 1.7 x10*3/uL Normal 1.2-3.3 [facility] Comment on above: Performed By: #### 4 [id number], [id number], [id number] #### HO GUEVARA (2012) [facility] [address] [place] [address] ABSOLUTE MONO 0.6 x10*3/uL Normal 0.2-0.6 [facility] Comment on above: Performed By: #### 4 [id number], [id number], [id number], [id number] #### HO GUEVARA (2012) [facility] [address] [place] [address] ABSOLUTE NEUTROPHIL 5.4 x10*3/uL Normal 2.4-6.6 [facility] Comment on above: Performed By: #### 4 [id number], [id number], [id number], [id number] #### HO GUEVARA (2012) [facility] [address] [place] [address] Basophils/100 WBC (Bld) 0.4 % Normal [facility] Comment on above: Performed By: #### 4 [id number], [id number], [id number], [id number] #### HO GUEVARA (2012) [facility] [address] [place] [address] Eosinophils/100 WBC (Bld) 2.7 % Normal [facility] Comment on above: Performed By: #### 4 [id number], [id number], [id number], [id number] #### HO GUEVARA (2012) [facility] [address] [facility] [place] [address] Erythrocyte distribution width (RBC) [Ratio] 14.2 % Normal 11.5-14.5 [facility] Comment on above: Performed By: #### 4 [id number], [id number], [id number], [id number] #### HO GUEVARA (2012) [facility] [address] [place] [address] Hematocrit (Bld) [Volume fraction] 53.1 % High 37.7-51.1 [facility] Comment on above: Performed By: #### 4 [id number], [id number], [id number], [id number] #### HO GUEVARA (2012) [facility] [address] [place] [address] Hemoglobin (Bld) [Mass/Vol] 16.9 g/dL Normal 12.8-17.7 [facility] Comment on above: Performed By: #### 4 [id number], [id number], [id number], [id number] #### HO GUEVARA (2012) [facility] [address] [facility] [address] Immature granulocytes/100 WBC (Bld) 0.1 % Normal [facility] Comment on above: Performed By: #### 4 [id number], [id number], [id number], [id number] #### HO GUEVARA (2012) [facility] [address] [facility] [address] Lymphocytes/100 WBC (Bld) 20.8 % Normal [facility] Comment on above: Performed By: #### 4 [id number], [id number], [id number], [id number] #### HO GUEVARA (2012) [facility] [address] [facility] [place] [address] MCH (RBC) [Entitic mass] 28.5 pg Normal 27.0-34.2 [facility] Comment on above: Performed By: #### 4 [id number], [id number], [id number], [id number] #### HO GUEVARA (2012) [facility] [address] [place] [address] MCHC (RBC) [Mass/Vol] 31.8 g/dL Normal 31.4-36.2 [facility] Comment on above: Performed By: #### 4 [id number], [id number], [id number], [id number] #### HO GUEVARA (2012) [facility] [address] [place] [address] MCV (RBC) [Entitic vol] 89.7 fL Normal 80.6-99 [facility] Comment on above: Performed By: #### 4 [id number], [id number], [id number], [id number] #### HO GUEVARA (2012) [facility] [address] [place] [address] Monocytes/100 WBC (Bld) 7.3 % Normal [facility] Comment on above: Performed By: #### 4 [id number], [id number], [id number], [id number] #### HO GUEVARA (2012) [facility] [address] [place] [address] Neutrophils/100 WBC (Bld) 68.7 % Normal [facility] Comment on above: Performed By: #### 4 [id number], [id number], [id number], [id number] #### HO GUEVARA (2012) [facility] [address] [place] [address] PLATELET COUNT 279 x10*3/uL Normal 150-400 [facility] Comment on above: Performed By: #### 4 [id number], [id number], [id number], [id number] #### HO GUEVARA (2012) [facility] [address] [place] [address] RED BLOOD CELL COUNT 5.92 x10*6/uL High 3.70-5.70 [facility] Comment on above: Performed By: #### 4 [id number], [id number], [id number], [id number] #### HO GUEVARA (2012) [facility] [address] [place] [address] WHITE BLOOD CELLS 7.9 x10*3/uL Normal 4.3-10.[address] [facility] Comment on above: Performed By: #### 4 [id number], [id number], [id number], [id number] #### HO GUEVARA (2013) [facility] [address] [place] [address] CBC with DifferentialOrdered By: Background Lab on 11-22-2023 Absolute Immature Granulocytes 0.0 [facility] Age [Time] 89.7 fL 80.6 - 99 fL [facility] Age [Time] 28.5 pg 27.0 - 34.2 pg [facility] Age [Time] 31.8 g/dL 31.4 - 36.2 g/dL [facility] B. burgdorferi IgM IB Ql (CSF) 20.8 % [facility] Basophils (Bld) [#/Vol] 0.0 10*3/uL [facility] Basophils/100 WBC (Body fld) 0.4 % [facility] Eosinophils (Bld) [#/Vol] 1.7 10*3/uL [facility] Eosinophils (Bld) [#/Vol] 0.6 10*3/uL [facility] Eosinophils (Bld) [#/Vol] 0.2 10*3/uL [facility] Eosinophils/100 WBC (Bld) 2.7 % [facility] Erythrocyte distribution width (RBC) [Ratio] 14.2 % 11.5 - 14.5 % [facility] Hematocrit (Bld) [Volume fraction] 53.1 % High 37.7 - 51.1 % [facility] Hexanoylglycine (U) [Moles/Vol] 16.9 g/dL 12.8 - 17.7 g/dL [facility] Immature granulocytes/100 WBC (Bld) 0.1 % [facility] Interpretation and review of laboratory results Abnormal [facility] Monocytes/100 WBC (Bld) 7.3 % [facility] Neurotensin (P) [Mass/Vol] 68.7 % [facility] Neutrophils (Bld) [#/Vol] 5.4 10*3/uL [facility] Platelets (Bld) [#/Vol] 279 10*3/uL [facility] RBC (Bld) [#/Vol] 5.92 10*6/uL High ETC Education [facility] WBC (Bld) [#/Vol] 7.9 10*3/uL [facility] EKG 12 leadon 11-22-2023 [facility] pt Test Date: 2023-11-22 Pat Name: AZALIA MATTHEW Department: Room: Gender: M Time Study Engineer: Jesse : 1970 Requested By: SHAWNA SOTELO Order Number: [id number] Reading MD: Lizbeth [facility] Study Reason: Measurements Intervals [place] Rate: 81 P: 56 VA: 176 QRS: 54 QRSD: 110 T: 60 QT: 374 QTc: 435 Interpretive Statements SINUS RHYTHM No prior EKG available for comparison. Electronically Signed On 11-22-2023 14:06:51 EDT by Lizbeth KELLER [facility] MAGNESIUMon 11-22-2023 Magnesium [Mass/Vol] 2.0 mg/dL Normal 1.6-2.3 [facility] Comment on above: Performed By: #### 4 [id number], [id number], [id number], [id number] #### HO GUEVARA (2012) [facility] [address] [place] [address] Magnesiumon 11-22-2023 Magnesium [Mass/Vol] 2.0 mg/dL 1.6 - 2 .3 mg/dL [facility] Magnesium [Mass/Vol]on 11-21 Interpretation and review of laboratory results Normal [facility] No Panel Informationon 11-[address] [facility] TROPONIN I SERIESon 11-22-19 24 Troponin I.cardiac [Mass/Vol] ng/mL Normal <=0.033 [facility] Comment on above: Result Comment: Nega tive: No detectable troponin-I. Performed By: #### 4 [id number], [id number], [id number], [id number] #### HO GUEVARA (2012) [facility] [address] [place] [address] Troponin I - Series (X 3)on 11-22-2023 Interpretation and review of laboratory results Normal [facility] Troponin I.cardiac [Mass/Vol] ng/mL NINF - 0.033 ng/mL [facility] Comment on above: Negative: No detectable troponin-I. US.doppler Lower extremity v ein - bilateralon 11-22-2023 Radiology Study observation (narrative) [facility] WOUND CULTURE WITH GRAM STAI Non 11-22-2023 WOUND CULTURE WITH GRAM STAIN WOUND CULTURE 669STAPHYLOCOCCUS PSEUDOINTERMEDIUS 4+ Staphylococcus pseudointermedius Susceptibility testing not performed on this isolate. Refer to susceptibilities reported from same or similar culture source within previous 72 hours. 673STAPHYLOCOCCUS SCIURI 4+ Staphylococcus sciuri Susceptibility testing not performed on this isolate. Refer to susceptibilities reported from same or similar culture source within previous 72 hours. GRAM STAIN OF CULTURE No organisms seen Normal [facility] Comment on above: Performed By: #### 4 [id number] #### [facility] [address] WOUND CULTURE WITH GRAM STAIN WOUND CULTURE 669STAPHYLOCOCCUS PSEUDOINTERMEDIUS 4+ Staphylococcus pseudointermedius 673STAPHYLOCOCCUS SCIURI 4+ Staphylococcus sciuri GRAM STAIN OF CULTURE Rare PMNs Rare RBCs Rare Gram positive cocci in pairs Organism ID: 1 Antibiotic Interpretation NOREEN Status Oxacillin Susc Islt S <=0.25 F Clindamycin Susc Islt S 0.25 F Doxycycline Susc Islt S <=0.5 F Jeffrey+ermC Islt/Spm Ql - Negative F levoFLOXacin Susc Islt S 0.25 F Tetracycline Susc Islt S <=1 F TMP SMX Susc Islt S <=10 F Vancomycin Susc Islt S 1 F ceFAZolin Susc Islt S F Organism ID: 2 Antibiotic Interpretation NOREEN Status Oxacillin Susc Islt S 2 F Clindamycin Susc Islt R >=4 F Doxycycline Susc Islt S <=0.5 F Jeffrey+ermC Islt/Spm Ql - Negative F levoFLOXacin Susc Islt S 1 F Tetracycline Susc Islt S <=1 F TMP SMX Susc Islt S <=10 F Vancomycin Susc Islt S 1 F ceFAZolin Susc Islt S F Susceptible [facility] Comment on above: Performed By: #### 4 [id number], [id number], [id number], [id number] #### HO GUEVARA (2013) [facility] [address] [place] [address] XR CHEST 1 VIEWon 11-22-2023 XR CHEST 1 VIEW EXAM: XR CHEST 1 VIE W, 11/22/2023 2:25 PM EDT INDICATION: leg swelling COMPARISON: None. TECHNIQUE: Single AP frontal view of the chest was obtained. FINDINGS: Medical devices/lines/tubes: None. Heart/mediastinum: Heart is magnified given AP technique, but is felt to be within normal limits. Pulmonary vascularity: Pulmonary vascularity is distended compatible with CHF/fluid overload. Pleura: No evidence of sizable pleural effusion on this single frontal view. No pneumothorax. Lungs: No focal airspace consolidation. Skeletal: No acute or concerning bony finding is evident. Other comments: None. IMPRESSION: 1. CHF/fluid overload. Shortness of breath Best possible - pt obese Normal UNX XR Chest Single viewon 11-21 1. CHF/fluid overload. [facility] EXAM: XR CHEST 1 VIE W, 11/22/2023 2:25 PM EDT INDICATION: leg swelling COMPARISON: None. TECHNIQUE: Single AP frontal view of the chest was obtained. FINDINGS: Medical devices/lines/tubes: None. Heart/mediastinum: Heart is magnified given AP technique, but is felt to be within normal limits. Pulmonary vascularity: Pulmonary vascularity is distended compatible with CHF/fluid overload. Pleura: No evidence of sizable pleural effusion on this single frontal view. No pneumothorax. Lungs: No focal airspace consolidation. Skeletal: No acute or concerning bony finding is evident. Other comments: None. Robert Chino MD - 11/22/2023 EXAM: XR CHEST 1 VIEW, 11/22/2023 2:25 PM EDT INDICATION: leg swelling COMPARISON: None. TECHNIQUE: Single AP frontal view of the chest was obtained. FINDINGS: Medical devices/lines/tubes: None. Heart/mediastinum: Heart is magnified given AP technique, but is felt to be within normal limits. Pulmonary vascularity: Pulmonary vascularity is distended compatible with CHF/fluid overload. Pleura: No evidence of sizable pleural effusion on this single frontal view. No pneumothorax. Lungs: No focal airspace consolidation. Skeletal: No acute or concerning bony finding is evident. Other comments: None. IMPRESSION: 1. CHF/fluid overload. [facility] Radiology Study observation (narrative) [facility] XR Chest Single viewOrdered By: Robert Sheehan on 11-22-2023 Jacqueline Cinario Work Phone: Absolute immature granulocyt e countOrdered By: FRANKO WAKEFIELD on 05-21-2022 Immature granulocytes (Bld) [#/Vol] 0.02 10*3/uL 0.00-0.10 [facility] Absolute lymphocyte countOrd ered By: FRANKO WAKEFIELD on 05-21-2022 Lymphocytes Auto (Unsp spec) [#/Vol] 1.30 10*3/uL 1.30-2.90 [facility] Appearance urOrdered By: TRIP DIMAS on 05-21-2022 Appearance (U) Clear Clear [facility] Basic Metabolic Panelon 05-03 Anion gap [Moles/Vol] 12.5 mmol/L Normal 8.0-16.0 [facility] Comment on above: Performed By: #### B MP #### [facility] [address] [place] [address] Calcium [Mass/Vol] 9.5 mg/dL Normal 8.2-10.0 [facility] Comment on above: Performed By: #### B MP #### [facility] [address] [place] [address] Chloride [Moles/Vol] 102 mmol/L Normal 94-110 [facility] Comment on above: Performed By: #### B MP #### [facility] [address] [place] [address] CO2 [Moles/Vol] 29 mmol/L Normal 21-34 [facility] Comment on above: Performed By: #### B MP #### [facility] [address] [place] [address] Creatinine [Mass/Vol] 0.66 mg/dL Normal 0.50-1.17 [facility] Comment on above: Performed By: #### B MP #### [address] [place] [address] EGFR Other Races >60 Normal >60 [facility] Comment on above: Performed By: #### B MP #### [facility] [address] [place] [address] GFR/1.73 sq M.predicted among blacks MDRD (S/P/Bld) [Vol rate/Area] mL/min/{1.73_m2} Normal >60 [facility] Comment on above: Result Comment: [employer] Consultant carlos Kidney Disease less than 60 mL/min/1.73 m2 Kidney Failure less than 15 mL/min/1.73 m2 Average estimated GFR by age: 50-59 years 93 mL/min/1.73 m2 Performed By: #### B MP #### [facility] [address] [place] [address] Glucose [Mass/Vol] 164 mg/dL High 65-100 [facility] Comment on above: Performed By: #### B MP #### [facility] [address] [place] [address] Potassium [Moles/Vol] 4.5 mmol/L Normal 3.3-5.1 [facility] Comment on above: Performed By: #### B MP #### [facility] [address] [place] [address] Sodium [Moles/Vol] 139 mmol/L Normal 132-145 [facility] Comment on above: Performed By: #### B MP #### [facility] [address] [place] [address] Urea nitrogen [Mass/Vol] 12.4 mg/dL Normal 3.2-26.9 [facility] Comment on above: Performed By: #### B MP #### [facility] [address] [place] [address] Urea nitrogen/Creatinine [Mass ratio] 19 mg/mg Normal 6-20 [facility] Comment on above: Performed By: #### B MP #### [facility] [address] [place] [address] CBC w/Auto Differentialon Basophils Abs. # 0.01 K/uL Normal 0.00-0.10 [facility] Comment on above: Performed By: #### C BCS #### [address] [place] [address] Basophils/100 WBC (Bld) 0.1 % Low 0.2-1.0 [facility] Comment on above: Performed By: #### C BCS #### [address] [place] [address] Eosinophils (Bld) [#/Vol] 0.00 10*3/uL Normal 0.00-0.20 [facility] Comment on above: Performed By: #### C BCS #### [facility] [address] [place] [address] Eosinophils/100 WBC (Bld) 0.1 % Low 0.9-2.9 [facility] Comment on above: Performed By: #### C BCS #### [address] [place] [address] Erythrocyte distribution width (RBC) [Ratio] 13.6 % Normal 11.5-14.5 [facility] Comment on above: Performed By: #### C BCS #### [address] [place] [address] Hematocrit (Bld) [Volume fraction] 52.8 % High 36.7-50.6 [facility] Comment on above: Performed By: #### C BCS #### [address] [address] Hemoglobin (Bld) [Mass/Vol] 17.0 g/dL Normal 12.4-17.3 [facility] Comment on above: Performed By: #### C BCS #### [address] [place] [address] Imm Grans % 0.20 % Normal 0.00-1.00 [facility] Comment on above: Performed By: #### C BCS #### [address] [place] [address] Imm Grans Absolute # 0.02 K/uL Normal 0.00-0.10 [facility] Comment on above: Performed By: #### C BCS #### [address] [place] [address] Lymphocytes (Bld) [#/Vol] 1.30 10*3/uL Normal 1.30-2.90 [facility] Comment on above: Performed By: #### C BCS #### [address] [place] [address] Lymphocytes/100 WBC (Bld) 14.6 % Low 17.0-45.5 [facility] Comment on above: Performed By: #### C BCS #### [address] [place] [address] MCH (RBC) [Entitic mass] 28.9 pg Normal 27.0-31.0 [facility] Comment on above: Performed By: #### C BCS #### [address] [place] [address] MCHC (RBC) [Mass/Vol] 32.2 g/dL Low 33.0-37.0 [facility] Comment on above: Performed By: #### C BCS #### [address] [place] [address] MCV (RBC) [Entitic vol] 89.8 fL Normal 80.0-94.0 [facility] Comment on above: Performed By: #### C BCS #### [address] [place] [address] Monocytes (Bld) [#/Vol] 0.10 10*3/uL Low 0.30-0.80 [facility] Comment on above: Performed By: #### C BCS #### [address] [place] [address] Monocytes/100 WBC (Bld) 1.3 % Low 5.5-11.7 [facility] Comment on above: Performed By: #### C BCS #### [address] [place] [address] Neutrophils Abs. # 7.14 K/uL High 2.20-4.80 [facility] Comment on above: Performed By: #### C BCS #### [address] [place] [address] Neutrophils/100 WBC (Bld) 83.7 % High 43.0-65.0 [facility] Comment on above: Performed By: #### C BCS #### [address] [address] Platelet mean volume (Bld) [Entitic vol] 10.5 fL High 7.4-10.4 [facility] Comment on above: Performed By: #### C BCS #### [address] [place] [address] Platelets (Bld) [#/Vol] 268 10*3/uL Normal 148-402 [facility] Comment on above: Performed By: #### C BCS #### [facility] [address] [place], [place] [address] RBC (Bld) [#/Vol] 5.88 10*6/uL High 4.13-5.69 [facility] Comment on above: Performed By: #### C BCS #### [facility] [address] [place], [place] [id number] WBC (Bld) [#/Vol] 8.5 10*3/uL Normal 3.6-10.8 [facility] Comment on above: Performed By: #### C BCS #### [address] [place] [address] Color urOrdered By: NELLY STEVE on 05-21-2022 Color (U) yellow Yellow [facility] Culture with gram stain, bod y fluidOrdered By: FRANKO WAKEFIELD on 05-21-2022 MCH (RBC) [Entitic mass] 28.9 pg 27.0-31.0 [facility] Determination of erythrocyte mean corpuscular volume (MCV)Ordered By: FRANKO WAKEFIELD on 05-21-2022 MCV (RBC) [Entitic vol] 89.8 fL 80.0-94.0 [facility] EMERGENCY DEPARTMENTon 05-21 [place] [address] HEALTH INFORMATION MANAGEMENT EMERGENCY DEPARTMENT : [id number] Signed with Octaviano Patient: AZALIA MATTHEW Acct:[id number] MRUN : [id number] : 1970 Sex: M Loc: 4TH FLOOR ADM Date: 05/20/22 Room/Bed: 425-B DISC Date: ADDENDUM--------- - I have been informed of the ct mri technologist the CT will not be possible due to the patient's size, they are not able to get him on the CT table here. Further evaluation for PE can be done at by the inpatient team, consideration should be given for VQ scan, Doppler study, etc. Addendum: Signed Date/Time: 05/20/221935 Co-Signed: Co-signed Date/Time 05/20/222241 History of Present Illness - General Symptom onset: Within the last few weeks HPI: Patient reports he started not feeling well a few weeks ago. Was having shortness of breath and that was folowed by a cough which resulted in the some left sided pain, flank area. He also reports some diarrhea 2 days ago. Complaining of fever and productive sputum which is brown tinged, symptoms going for about 3 to 4 weeks per patient. 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 Not seen any doctor for the same year. Denies any pain in the extremities. No injury or fall. Does smoke but does not wear oxygen at home. Patient got extremely short of breath when he ambulated from the waiting room to the ER room 5. Was put on 2 L nasal cannula, had some wheezing. Not vaccinated for COVID Mode of Transport: Ambulatory - History of Present Illness C O Chest Pain?: No - General Chief Complaint: URI symptoms Stated Complaint: PAIN LEFT LUNG SOB COUGH WEAKNESS Time Seen by Provider: 05/20/22 16:47 - Related Data Home Medications Medication Instructions Recorded Confirmed Ciprofloxacin HCl [Cipro] 500 mg PO BID #14 tablet 06/27/13 Ondansetron HCl [Zofran] 4 mg PO Q6H PRN #10 tablet 06/27/13 Allergies Allergy/AdvReac Type Severity Reaction Status Date / Time No Known Allergies Allergy Verified 06/27/13 20:42 Heart Score - Heart Score History: Slightly Suspicious ECG: Non-specific repolarization abnormality Age: 45-65 Risk Factors: 1-2 risk factors Troponin: < or = normal limit Heart Score Total: 3 Heart Score Interpretation: Low Risk ACS (HS 2-3) Review of System - Constitutional Constitutional: Present: see HPI, Well developed, Well nourished, Non-toxic, Morbidly Obese. Absent: diaphoresis, fever - Nose,Throat,Mouth Nose (ROS): Present: no symptoms reported. Absent: pain Throat: Present: no symptoms reported. Absent: pain, swelling, discharge Mouth: Present: no symptoms reported. Absent: pain, swelling - Respiratory Respiratory: Present: see HPI, cough, sputum, hemoptysis. Absent: short of breath, wheezing - CV Cardiology: Present: no symptoms reported, see HPI, chest pain, CP with movement. Absent: edema, syncope - GI Gastrointestinal/Abdominal: Present: no symptoms reported. Absent: abdominal pain, diarrhea, nausea, vomiting - Genitourinary Symptoms: Present: no symptoms reported. Absent: dysuria - Neuro Neurological: Present: no symptoms reported. Absent: headache, weakness - Muskuloskeletal Musculoskeletal: Present: no symptoms reported. Absent: back pain, joint pain, joint swelling, neck pain - Integumentary Skin: Absent: lesions, rash - Allergic/Immunologic Immunological/Allergic: Present: no symptoms reported - Hematologic Hematologic/Lymphatic: Absent: easy bleeding, easy bruising, swollen glands - Endocrine Endocrine: Present: no symptoms reported - Psychiatric Psychiatric: Present: Normal Affect, Normal Mood. Absent: Depressed - All Others/Exceptions All Other Systems: Reviewed and Negative Except Where Noted in Documentation ED PMH/Social HX/Family HX - Respiratory Hx Respiratory Disorders: Yes PMH--Respiratory: Pneumonia - Cardiovascular Hx Cardiac Disorders: No - Neurological Hx Neurological Disorder: Yes PMH--Neurological: Headaches - Endocrine Hx Endocrine Disorders: No - Gastrointestinal Hx Gastrointestinal Disorders: Yes PMH--Gastrointestinal: Obesity Past Surgical Hx--GI: Appendectomy, Lap. Cholecystectomy - Genitourinary Hx Genitourinary Disorders: Yes PMH--Genitourinary: Kidney Stones - Musculoskeletal Hx Musculoskeletal Disorders: Yes PMH--Musculoskeletal: Arthritis, Chronic Back Pain Other MS PMH: lower lumbar - Reproductive Hx Reproductive Disorders: No Other Reproductive PMH: BMI > 50 Kg/M squared - Psychological Hx Psychosocial Problems: No - HEENT Hx Ear, Nose Throat Disorders: No - Cancer Hx Cancer: No - Immunizations Hx Influenza Vaccination: No - Other Other PMH: Chicken Pox - Soc (more content not included)... Normal [facility] Eosinophils/100 WBC Auto (Bl d)Ordered By: FRANKO WAKEFIELD on 05-21-2022 Eosinophils/100 WBC (Bld) 0.1 % 0.9-2.9 [facility] Erythrocyte distribution wid th ratioOrdered By: FRANKO WAKEFIELD on 05-21-2022 Erythrocyte distribution width (RBC) [Ratio] 13.6 % 11.5-14.5 [facility] High Sensitivity TNIon 05-21 Abs Change hsTnI 1 ng/L Normal [facility] [place] Comment on above: Performed By: #### C MP #### [facility] [address] [place] [address] Delta % hsTnI 25 % Normal [facility] Comment on above: Performed By: #### C MP #### [facility] [address] [place] [address] High Sensitivity TNI 4 ng/L Normal 0-76 [facility] Comment on above: Result Comment: Inte rpretation comment: High-sensitivity troponin I (hsTnI) assay can reliably detect low troponin concentrations relative to conventional troponin assays. It is the preferred marker of myocardial necrosis as recommended by the Fourth [place] Definition of Myocardial Infarction Guidelines. The diagnosis of acute myocardial infarction (AMI) is made based on a rise or fall of troponin with at least one measurement exceeding the laboratory's upper limit of normal (indicating myocardial injury), in the context of reasonable suspicion for coronary ischemia (e.g. typical symptoms, changes on ECG, evidence for loss of myocardial infarction or demonstration of obstructive coronary artery disease). Note: Although abnormal hsTnI values reflect injury to myocardial cells, an elevated hsTnI does not indicate the cause of injury (i.e. ischemia versus non-ischemic disease). In some cases, myocardial injury is chronic and relatively stable such that hsTnI values remain elevated but do not change substantially over hours to days (examples include chronic kidney disease, heart failure or advanced patient age). When determining whether there has been a significant rise or fall of troponin on serial sampling, absolute change in troponin concentration has greater diagnostic accuracy for AMI then relative change criteria. A change of >7 ng/L over a 2-hour interval or a change of >10 ng/L over a 3-hour interval is suggested as a significant change. If the initial hsTnI is below or at the 99th percentile upper reference limit, a 50% change from the baseline is considered significant. If the initial hsTnI is above the 99th percentile upper reference limit, a 20% change from the baseline value is considered significant. Performed By: #### C MP #### [facility] [address] [place] [address] Abs Change hsTnI 2 ng/L Normal [facility] [place] Comment on above: Performed By: #### H STNI #### [facility] [address] [place] [address], [place] [id number] Delta % hsTnI 40 % Normal [facility] Comment on above: Performed By: #### H STNI #### [facility] [address] [place], [place] [id number] High Sensitivity TNI 5 ng/L Normal 0-76 [facility] Comment on above: Result Comment: Inte rpretation comment: High-sensitivity troponin I (hsTnI) assay can reliably detect low troponin concentrations relative to conventional troponin assays. It is the preferred marker of myocardial necrosis as recommended by the Fourth [place] Definition of Myocardial Infarction Guidelines. The diagnosis of acute myocardial infarction (AMI) is made based on a rise or fall of troponin with at least one measurement exceeding the laboratory's upper limit of normal (indicating myocardial injury), in the context of reasonable suspicion for coronary ischemia (e.g. typical symptoms, changes on ECG, evidence for loss of myocardial infarction or demonstration of obstructive coronary artery disease). Note: Although abnormal hsTnI values reflect injury to myocardial cells, an elevated hsTnI does not indicate the cause of injury (i.e. ischemia versus non-ischemic disease). In some cases, myocardial injury is chronic and relatively stable such that hsTnI values remain elevated but do not change substantially over hours to days (examples include chronic kidney disease, heart failure or advanced patient age). When determining whether there has been a significant rise or fall of troponin on serial sampling, absolute change in troponin concentration has greater diagnostic accuracy for AMI then relative change criteria. A change of >7 ng/L over a 2-hour interval or a change of >10 ng/L over a 3-hour interval is suggested as a significant change. If the initial hsTnI is below or at the 99th percentile upper reference limit, a 50% change from the baseline is considered significant. If the initial hsTnI is above the 99th percentile upper reference limit, a 20% change from the baseline value is considered significant. Performed By: #### H STNI #### [address] [address] Immature granulocytes/100 WB C Auto (Bld)Ordered By: FRANKO WAKEFIELD on 05-21-2022 Immature granulocytes/100 WBC (Bld) 0.20 % 0.00-1.00 [facility] Ketones Test strip Ql (U)Ord ered By: NELLY DIMAS on 05-21-2022 Ketones Ql (U) 5 Negative [facility] - Chemistry and C hemistry - challengeOrdered By: FRANKO WAKEFIELD on 05-21-2022 Calcium [Mass/Vol] 9.5 mg/dL 8.2-10.0 [facility] Creatinine [Mass/Vol] 0.66 mg/dL 0.50-1.17 [facility] Glucose [Mass/Vol] 164 mg/dL 65-100 [facility] Magnesium [Mass/Vol] 2.1 mg/dL 1.3-2.3 [facility] Urea nitrogen [Mass/Vol] 12.4 mg/dL 3.2-26.9 [facility] Urea nitrogen/Creatinine [Mass ratio] 19 mg/mg 6-20 [facility] - Chemistry and C hemistry - challengeOrdered By: NELLY DIMAS on 05-21-2022 Bilirubin Ql (U) Negative Negative [facility] [place] Glucose Ql (U) 50 Negative [facility] - Hematology and Cell countsOrdered By: FRANKO WAKEFIELD on 05-21-2022 Basophils (Bld) [#/Vol] 0.01 10*3/uL 0.00-0.10 [facility] Hematocrit (Bld) [Volume fraction] 52.8 % 36.7-50.6 [facility] MCHC (RBC) [Mass/Vol] 32.2 g/dL 33.0-37.0 [facility] Platelet mean volume (Bld) [Entitic vol] 10.5 fL 7.4-10.4 [facility] Platelets (Bld) [#/Vol] 268 10*3/uL 148-402 [facility] RBC (Bld) [#/Vol] 5.88 10*6/uL 4.13-5.69 [facility] WBC (Bld) [#/Vol] 8.5 10*3/uL 3.6-10.8 [facility] Magnesiumon 05-21-2022 Magnesium [Mass/Vol] 2.1 mg/dL Normal 1.3-2.3 [facility] Comment on above: Performed By: #### C BCS #### [facility] [address] [place] [address] Monocyte %Ordered By: MAYRA WAKEFIELD on 05-21-2022 Monocyte % 139 mmol/L 132-145 [facility] Monocyte % 4.5 mmol/L 3.3-5.1 [facility] Monocyte % 102 mmol/L 94-110 [facility] Monocyte % 29 mmol/L 21-34 [facility] Monocyte % 17.0 g/dL 12.4-17.3 [facility] Monocytes (Bld) [#/Vol] 7.14 10*3/uL 2.20-4.80 [facility] Monocytes (Bld) [#/Vol] 0.10 10*3/uL 0.30-0.80 [facility] Monocytes (Bld) [#/Vol] 0 10*3/uL 0.00-0.20 [facility] Monocytes/100 WBC (Bld) 14.6 % 17.0-45.5 [facility] Monocytes/100 WBC (Bld) 1.3 % 5.5-11.7 [facility] Monocytes/100 WBC (Bld) 0.1 % 0.2-1.0 [facility] Neutrophils seg % bldOrdered By: FRANKO WAKEFIELD on 05-21-2022 Segmented neutrophils/100 WBC (Bld) 83.7 % 43.0-65.0 [facility] Nitrite Test strip Ql (U)Ord ered By: NELLY DIMAS on 05-21-2022 Nitrite Ql (U) Negative Negative [facility] No Panel InformationOrdered By: FRANKO WAKEFIELD on 05-21-2022 Estimated GFR (MDRD) Amer > 60 >60 [facility] Comment on above: Chronic Kidney Disea se less than 60 mL/min/1.73 h7Thppcl Failure less than 15 mL/min/1.73 c2Oxcgrhg estimated GFR by age:50-59 years 93 mL/min/1.73 m2 Estimated GFR (MDRD) Non-Af Amer > 60 >60 [facility] No Panel InformationOrdered By: NELLY DIMAS on 05-21-2022 Urine Urobilinogen Normal mg/dL Normal-1.0 [facility] Urine WBC 0-2 /hpf 0 - 6 [facility] Protein ur QLOrdered By: TRIP DIMAS on 05-21-2022 Protein Ql (U) Negative Negative [facility] RBC LM Ql (Urine sed)Ordered By: NELLY DIMAS on 05-21-2022 RBC Ql (U) 0-2 /hpf 0 - 2 [facility] RBC Test strip (U) [#/Vol]Or dered By: NELLY DIMAS on 05-21-2022 RBC (U) [#/Vol] 10 /uL Negative [facility] Serum or plasma anion gapOrd ered By: FRANKO WAKEFIELD on 05-21-2022 Anion gap [Moles/Vol] 12.5 mmol/L 8.0-16.0 [facility] Specific gravity Test strip (U) [Rel density]Ordered By: NELLY DIMAS on 05-21-2022 Specific gravity (U) [Rel density] 1.015 1.015-1.02 5 [facility] UA w/Micrscopic-reflex cultu reon 05-21-2022 Appearance (U) CLEAR Normal Clear [facility] Comment on above: Performed By: #### U AMRC #### [facility] [address] [place] [address] Bacteria LOOM CHECKER Normal 0 - 1+ [facility] Comment on above: Performed By: #### U AMRC #### [facility] [address] [place] [address] Bilirubin Ql (U) Negative Normal Negative [facility] [place] Comment on above: Performed By: #### U AMRC #### [facility] [address] [place] [address] Casts LOOM CHECKER Normal [facility] Comment on above: Performed By: #### U AMRC #### [facility] [address] [place] [address] Casts. LOOM CHECKER Normal [facility] Comment on above: Performed By: #### U AMRC #### [facility] [address] [place] [address] Color (U) yellow Normal Yellow [facility] Comment on above: Performed By: #### U AMRC #### [facility] [address] [place] [address] Crystals LM Nom (Urine sed) LOOM CHECKER Normal [facility] Comment on above: Performed By: #### U AMRC #### [facility] [address] [place] [address] Crystals. LOOM CHECKER Normal [facility] Comment on above: Performed By: #### U AMRC #### [facility] [address] [place] [address] Epithelial cells LM Ql (Urine sed) LOOM CHECKER Normal 0 - 6 [facility] Comment on above: Performed By: #### U AMRC #### [facility] [address] [place] [address] Glucose Ql (U) 50 Abnormal Negative [facility] Comment on above: Performed By: #### U AMRC #### [facility] [address] [place] [address] Hemoglobin Ql (U) 10 Abnormal Negative [facility] Comment on above: Performed By: #### U AMRC #### [facility] [address] [place] [address] Ketones Ql (U) 5 Abnormal Negative [facility] Comment on above: Performed By: #### U AMRC #### [facility] [address] [place] [address] Leukocytes Esterase Negative Normal Negative [facility] Comment on above: Performed By: #### U AMRC #### [facility] [address] [place] [address] Mucus Ql (Urine sed) LOOM CHECKER Normal [facility] Comment on above: Performed By: #### U AMRC #### [facility] [address] [place] [address] Nitrite Ql (U) Negative Normal Negative [facility] Comment on above: Performed By: #### U AMRC #### [facility] [address] [place] [address] pH (U) 5 [pH] Normal [facility] Comment on above: Performed By: #### U AMRC #### [facility] [address] [place] [address] Protein Ql (U) Negative Normal Negative [facility] Comment on above: Performed By: #### U AMRC #### [facility] [address] [place] [address] RBC 0-2 Normal 0 - 2 [facility] Comment on above: Performed By: #### U AMRC #### [facility] [address] [place] [address] Specific gravity (U) [Rel density] 1.015 Normal 1.015-1.02 5 [facility] Comment on above: Performed By: #### U AMR #### [place] [address] [place] [address] Trichomonas LOOM CHECKER Normal [facility] Comment on above: Performed By: #### U AMRC #### [facility] [address] [place] [address] Urobilinogen NORMAL Normal Normal-1.0 [facility] Comment on above: Performed By: #### U AMRC #### [address] [place] [address] WBC 0-2 Normal 0 - 6 [facility] Comment on above: Performed By: #### U AMRC #### [facility] [address] [place] [address] Yeast LOOM CHECKER Normal [facility] Comment on above: Performed By: #### U AMRC #### [address] [place] [address] Other LOOM CHECKER Normal [facility] Comment on above: Performed By: #### U AMRC #### [address] [place] [address] US SAMMY LEGS FOR DVTon 2022 US SAMMY LEGS FOR DVT EXAMINATION: DUPLEX VENOUS ULTRASOUND OF THE BILATERAL LOWER EXTREMITIES05/21/2022 10:58 am TECHNIQUE: Duplex ultrasound using B-mode/mesa scaled imaging, Doppler spectral analysis and color flow Doppler was obtained of the deep venous structures of the lower bilateral extremities. COMPARISON: None. HISTORY: ORDERING SYSTEM PROVIDED HISTORY: possible dvt FINDINGS: The visualized veins of the bilateral lower extremities are patent and free of echogenic thrombus. The veins demonstrate good compressibility with normal color flow study and spectral analysis. IMPRESSION: No evidence of DVT in either lower extremity. RECOMMENDATIONS: Unavailable Normal [facility] Urine leukocyte esterase det ection by dipstickOrdered By: NELLY DIMAS on 05-21-2022 Leukocyte esterase Test strip Ql (U) Negative Negative [facility] pH Test strip (U)Ordered By: NELLY DIMAS on 05-21-2022 pH (U) 5 [pH] [facility] 2019 Novel Coronavirus (CoVI D-19), NAAon 05-20-2022 SARS-CoV-2 (COVID-19) RNA BANDAR+probe Ql (Unsp spec) Not detected Normal Not Detected [facility] Comment on above: Result Comment: This nucleic acid amplification test was developed and its performance characteristics determined by [employer]. Nucleic acid amplification tests include RT-PCR and TMA. This test has not been FDA cleared or approved. This test has been authorized by FDA under an Emergency Use Authorization (EUA). This test is only authorized for the duration of time the declaration that circumstances exist justifying the authorization of the emergency use of in vitro diagnostic tests for detection of SARS-CoV-2 virus and/or diagnosis of COVID-19 infection under section 564(b)(1) of the Act, 21 U.S.C. 360bbb-3(b) (1), unless the authorization is terminated or revoked sooner. When diagnostic testing is negative, the possibility of a false negative result should be considered in the context of a patient's recent exposures and the presence of clinical signs and symptoms consistent with COVID-19. An individual without symptoms of COVID-19 and who is not shedding SARS-CoV-2 virus would expect to have a negative (not detected) result in this assay. Performed at: [facility] [id number] Splitter Operator: Jose Alfredo Belle PhD, Phone: [phone] Performed By: #### L COV #### [address] [address] Albumin ser/plasOrdered By: NELLY DIMAS on 05-20-2022 Albumin [Mass/Vol] 3.6 g/dL 3.4-5.0 [facility] Blood total protein measurem entOrdered By: NELLY DIMAS on 05-20-2022 Protein [Mass/Vol] 8.2 g/dL 6.1-8.2 [facility] CBC w/Auto Differentialon Basophils Abs. # 0.02 K/uL Normal 0.00-0.10 [facility] [place] Comment on above: Performed By: #### C BCS #### [address] [address] Basophils/100 WBC (Bld) 0.3 % Normal 0.2-1.0 [facility] Comment on above: Performed By: #### C BCS #### [address] [address] Eosinophils (Bld) [#/Vol] 0.20 10*3/uL Normal 0.00-0.20 [facility] Comment on above: Performed By: #### C BCS #### [address] [address] Eosinophils/100 WBC (Bld) 2.7 % Normal 0.9-2.9 [facility] Comment on above: Performed By: #### C BCS #### [address] [address] Erythrocyte distribution width (RBC) [Ratio] 13.5 % Normal 11.5-14.5 [facility] Comment on above: Performed By: #### C BCS #### [place] [address] [place] [id number] Hematocrit (Bld) [Volume fraction] 53.7 % High 36.7-50.6 [facility] Comment on above: Performed By: #### C BCS #### [place] [address] Hemoglobin (Bld) [Mass/Vol] 17.1 g/dL Normal 12.4-17.3 [facility] Comment on above: Performed By: #### C BCS #### [place] [id number] Imm Grans % 0.10 % Normal 0.00-1.00 [facility] Comment on above: Performed By: #### C BCS #### [address] [place] [address] Imm Grans Absolute # 0.01 K/uL Normal 0.00-0.10 [facility] Comment on above: Performed By: #### C BCS #### [place] [address] Lymphocytes (Bld) [#/Vol] 2.40 10*3/uL Normal 1.30-2.90 [facility] Comment on above: Performed By: #### C BCS #### [place] [id number] Lymphocytes/100 WBC (Bld) 31.7 % Normal 17.0-45.5 [facility] Comment on above: Performed By: #### C BCS #### [address] [place] [address] MCH (RBC) [Entitic mass] 28.7 pg Normal 27.0-31.0 [facility] Comment on above: Performed By: #### C BCS #### [address] [place] [address] MCHC (RBC) [Mass/Vol] 31.8 g/dL Low 33.0-37.0 [facility] Comment on above: Performed By: #### C BCS #### [address] [place] [address] MCV (RBC) [Entitic vol] 90.1 fL Normal 80.0-94.0 [facility] Comment on above: Performed By: #### C BCS #### [address] [place] [address] Monocytes (Bld) [#/Vol] 0.60 10*3/uL Normal 0.30-0.80 [facility] Comment on above: Performed By: #### C BCS #### [address] [place] [address] Monocytes/100 WBC (Bld) 8.1 % Normal 5.5-11.7 [facility] Comment on above: Performed By: #### C BCS #### [address] [place] [address] Neutrophils Abs. # 4.25 K/uL Normal 2.20-4.80 [facility] Comment on above: Performed By: #### C BCS #### [address] [place] [address] Neutrophils/100 WBC (Bld) 57.1 % Normal 43.0-65.0 [facility] Comment on above: Performed By: #### C BCS #### [address] [place] [address] Platelet mean volume (Bld) [Entitic vol] 9.9 fL Normal 7.4-10.4 [facility] Comment on above: Performed By: #### C BCS #### [address] [place] [address] Platelets (Bld) [#/Vol] 252 10*3/uL Normal 148-402 [facility] Comment on above: Performed By: #### C BCS #### [address] [address] RBC (Bld) [#/Vol] 5.96 10*6/uL High 4.13-5.69 [facility] Comment on above: Performed By: #### C BCS #### [address] [address] WBC (Bld) [#/Vol] 7.4 10*3/uL Normal 3.6-10.8 [facility] Comment on above: Performed By: #### C BCS #### [address] [address] CHEST APon 05-20-2022 CHEST AP EXAMINATION: ONE XRAY VIEW OF THE CHEST 05/20/2022 5:29 pm COMPARISON: HISTORY: ORDERING SYSTEM PROVIDED HISTORY: dyspnea/cough FINDINGS: The lungs are without acute focal process. There is no effusion or pneumothorax. The cardiomediastinal silhouette is without acute process. The osseous structures are without acute process. IMPRESSION: No acute process. Normal [facility] Comprehensive Metabolic Pane art 05-20-2022 Albumin [Mass/Vol] 3.6 g/dL Normal 3.4-5.0 [facility] Comment on above: Performed By: #### C MP #### [address] [place] [address] Albumin/Globulin [Mass ratio] 0.8 {ratio} Low 1.1-2.5 [facility] Comment on above: Performed By: #### C MP #### [address] [place] [address] ALP [Catalytic activity/Vol] 210 U/L High 54-112 [facility] Comment on above: Performed By: #### C MP #### [address] [place] [address] ALT [Catalytic activity/Vol] 69 U/L High 13-66 [facility] Comment on above: Performed By: #### C MP #### [address] [place] [address] Anion gap [Moles/Vol] 12.2 mmol/L Normal 8.0-16.0 [facility] Comment on above: Performed By: #### C MP #### [address] [place] [address] AST [Catalytic activity/Vol] 32 U/L Normal 3-39 [facility] Comment on above: Performed By: #### C MP #### [address] [place] [address] Bilirubin [Mass/Vol] 0.34 mg/dL Normal 0.00-0.99 [facility] Comment on above: Performed By: #### C MP #### [address] [place] [address] Calcium [Mass/Vol] 9.3 mg/dL Normal 8.2-10.0 [facility] Comment on above: Performed By: #### C MP #### [address] [place] [address] Chloride [Moles/Vol] 103 mmol/L Normal 94-110 [facility] Comment on above: Performed By: #### C MP #### [facility] [address] [place] [address] CO2 [Moles/Vol] 31 mmol/L Normal 21-34 [facility] Comment on above: Performed By: #### C MP #### [facility] [address] [place] [address] Creatinine [Mass/Vol] 1.07 mg/dL Normal 0.50-1.17 [facility] Comment on above: Performed By: #### C MP #### [facility] [address] [place] [address] EGFR Other Races >60 Normal >60 [facility] [place] Comment on above: Performed By: #### C MP #### [facility] [address] [place] [address] GFR/1.73 sq M.predicted among blacks MDRD (S/P/Bld) [Vol rate/Area] mL/min/{1.73_m2} Normal >60 [facility] Comment on above: Result Comment: [employer] Consultant carlos Kidney Disease less than 60 mL/min/1.73 m2 Kidney Failure less than 15 mL/min/1.73 m2 Average estimated GFR by age: 50-59 years 93 mL/min/1.73 m2 Performed By: #### C MP #### [facility] [address] [place] [address] Globulin (S) [Mass/Vol] 4.6 g/dL High 1.5-4.5 [facility] Comment on above: Performed By: #### C MP #### [facility] [address] [place] [address] Glucose [Mass/Vol] 108 mg/dL High 65-100 [facility] Comment on above: Performed By: #### C MP #### [facility] [address] [place] [address] Potassium [Moles/Vol] 4.2 mmol/L Normal 3.3-5.1 [facility] Comment on above: Performed By: #### C MP #### [facility] [address] [place] [address] Protein [Mass/Vol] 8.2 g/dL Normal 6.1-8.2 [facility] Comment on above: Performed By: #### C MP #### [facility] [address] [place] [address] Sodium [Moles/Vol] 142 mmol/L Normal 132-145 [facility] Comment on above: Performed By: #### C MP #### [facility] [address] [place] [address] Urea nitrogen [Mass/Vol] 14.7 mg/dL Normal 3.2-26.9 [facility] Comment on above: Performed By: #### C MP #### [address] [place] [address] Urea nitrogen/Creatinine [Mass ratio] 14 mg/mg Normal 6-20 [facility] Comment on above: Performed By: #### C MP #### [facility] [address] [place] [address] Culture with gram stain, bod y fluidOrdered By: NELLY DIMAS on 05-20-2022 Albumin/Globulin [Mass ratio] 0.8 {ratio} 1.1-2.5 [facility] AST [Catalytic activity/Vol] 32 U/L 3-39 [facility] D-Dimeron 05-20-2022 D-Dimer 0.66 mg/L FEU Critically high 0.00-0.49 [facility] Comment on above: Result Comment: Nega tive Predictive Value = <0.50 mg/L FEU This D-dimer assay may be used in conjunction with a non-high clinical pretest probability (PTP) assessment model to exclude pulmonary embolism (PE) disease. In addition, it is indicated as an aid in the exclusion of deep vein thrombosis (DVT). The measurement of D-dimer should not be used as an aid in the diagnosis of venous thromboembolism (VTE), in a patients with: -Therapeutic dose anticoagulant therapy > 24 hours -Fibrinolytic therapy within previous 7 days -Trauma or surgery within previous 4 weeks -Disseminated malignancies -Aortic aneurysm -Sepsis, severe infections, pneumonia, severe skin infections -Liver cirrhosis - Performed By: #### D YUMIKO #### [place] [address] Detection in respiratory spe cimen of antigen of either or both severe acute respiratoOrdered By: NELLY DIMAS on 05-20-2022 SARS-CoV+SARS-CoV-2 (COVID-19) Ag IA.rapid Ql (Resp) Negative Negative [facility] Comment on above: The Viola 2 SARS Ant igen WING is a lateral flow immunofluorescent sandwichassay that is used with the Viola 2 instrument intended for the qualitativedetection of the nucleocapsid protein antigen from SARS-CoV-2 innasopharyngeal (LOOM CHECKER) and nasal (NS) swab specimens directly or after theswabs have been added to viral transport media from individuals who aresuspected of COVID-19 by their healthcare provider. Testing is limited tolaboratories certified under the Clinical Laboratory Improvement Amendmentsof 1988 (CLIA), 42 U.S.C. 263a, that meet the requirements to performmoderate, high or waived complexity tests. This test is authorized for useat the Point of Care (POC), i.e., in patient care settings operating under aCLIA Certificate of Waiver, Certificate of Compliance, or Certificate ofAccreditation.The SARS Antigen WING does not differentiate between SARS-CoV and SARS-CoV-2.Results are for the identification of SARS-CoV-2 nucleocapsid proteinantigen. Antigen is generally detectable in upper respiratory specimensduring the acute phase of infection.Positive results indicate the presence of viral antigens, but clinicalcorrelation with patient history and other diagnostic information isnecessary to determine infection status. Positive results do not rule outbacterial infection or co-infection with other viruses. The agent detectedmay not be the definite cause of disease.Negative results should be treated as presumptive and confirmed with amolecular assay, if necessary for patient management. Negative results donot rule out COVID-19 and should not be used as the sole basis for treatmentor patient management decisions, including infection control decisions.Negative results should be considered in the context of a patient s recentexposures, history and the presence of clinical signs and symptomsconsistent with COVID-19. High Sensitivity TNIon 05-20 Abs Change hsTnI 0 ng/L Normal [facility] [place] Comment on above: Performed By: #### H STNI #### [facility] [address] [place], [place] [id number] [phone] Delta % hsTnI 0 % Normal [facility] Comment on above: Performed By: #### H STNI #### [facility] [address] [place] [address] High Sensitivity TNI 7 ng/L Normal 0-76 [facility] Comment on above: Result Comment: Inte rpretation comment: High-sensitivity troponin I (hsTnI) assay can reliably detect low troponin concentrations relative to conventional troponin assays. It is the preferred marker of myocardial necrosis as recommended by the Fourth [place] Definition of Myocardial Infarction Guidelines. The diagnosis of acute myocardial infarction (AMI) is made based on a rise or fall of troponin with at least one measurement exceeding the laboratory's upper limit of normal (indicating myocardial injury), in the context of reasonable suspicion for coronary ischemia (e.g. typical symptoms, changes on ECG, evidence for loss of myocardial infarction or demonstration of obstructive coronary artery disease). Note: Although abnormal hsTnI values reflect injury to myocardial cells, an elevated hsTnI does not indicate the cause of injury (i.e. ischemia versus non-ischemic disease). In some cases, myocardial injury is chronic and relatively stable such that hsTnI values remain elevated but do not change substantially over hours to days (examples include chronic kidney disease, heart failure or advanced patient age). When determining whether there has been a significant rise or fall of troponin on serial sampling, absolute change in troponin concentration has greater diagnostic accuracy for AMI then relative change criteria. A change of >7 ng/L over a 2-hour interval or a change of >10 ng/L over a 3-hour interval is suggested as a significant change. If the initial hsTnI is below or at the 99th percentile upper reference limit, a 50% change from the baseline is considered significant. If the initial hsTnI is above the 99th percentile upper reference limit, a 20% change from the baseline value is considered significant. Performed By: #### H STNI #### [id number] [place] [address] High Sensitivity TNI 7 ng/L Normal 0-76 [facility] Comment on above: Result Comment: Inte rpretation comment: High-sensitivity troponin I (hsTnI) assay can reliably detect low troponin concentrations relative to conventional troponin assays. It is the preferred marker of myocardial necrosis as recommended by the Fourth [place] Definition of Myocardial Infarction Guidelines. The diagnosis of acute myocardial infarction (AMI) is made based on a rise or fall of troponin with at least one measurement exceeding the laboratory's upper limit of normal (indicating myocardial injury), in the context of reasonable suspicion for coronary ischemia (e.g. typical symptoms, changes on ECG, evidence for loss of myocardial infarction or demonstration of obstructive coronary artery disease). Note: Although abnormal hsTnI values reflect injury to myocardial cells, an elevated hsTnI does not indicate the cause of injury (i.e. ischemia versus non-ischemic disease). In some cases, myocardial injury is chronic and relatively stable such that hsTnI values remain elevated but do not change substantially over hours to days (examples include chronic kidney disease, heart failure or advanced patient age). When determining whether there has been a significant rise or fall of troponin on serial sampling, absolute change in troponin concentration has greater diagnostic accuracy for AMI then relative change criteria. A change of >7 ng/L over a 2-hour interval or a change of >10 ng/L over a 3-hour interval is suggested as a significant change. If the initial hsTnI is below or at the 99th percentile upper reference limit, a 50% change from the baseline is considered significant. If the initial hsTnI is above the 99th percentile upper reference limit, a 20% change from the baseline value is considered significant. Performed By: #### C MP #### [address] [place] [address] INR in Platelet poor plasma by Coagulation assayOrdered By: NELLY DIMAS on 05-20-2022 INR Coag (PPP) [Relative time] 0.97 {INR} [facility] Comment on above: 2.0 - 3.0 Group A2.5 - 3.5 Group BGroup A indications: Prophylaxis and treatment of venousthrombosis. Treatment of pulmonary embolism. Prevention ofsystemic embolism. Tissue heart valves. Acute myocardialinfarction. Valvular heart disease. Atrial fibrillation.Group B indications: Mechanical prosthetic valves. . Influenza A B (Rapid)on 05-02 Influenza A antigen Negative Normal (Negative) [facility] Comment on above: Performed By: #### C MP #### [address] [place] [address] Influenza B antigen Negative Normal (Negative) [facility] Comment on above: Performed By: #### C MP #### [address] [place] [address] Interpretation of serum or p lasma cardiac troponin I measurement by high sensitivityOrdered By: FRANKO WAKEFIELD on 05-20-2022 Troponin I.cardiac High sensitivity method Ql [Interp] 4 ng/L 0-76 [facility] Comment on above: Interpretation comme nt:High-sensitivity troponin I (hsTnI) assay can reliably detect low troponinconcentrations relative to conventional troponin assays. It is thepreferred marker of myocardial necrosis as recommended by the FourthUniversal Definition of Myocardial Infarction Guidelines.The diagnosis of acute myocardial infarction (AMI) is made based on a riseor fall of troponin with at least one measurement exceeding the laboratory'supper limit of normal (indicating myocardial injury), in the context ofreasonable suspicion for coronary ischemia (e.g. typical symptoms, changeson ECG, evidence for loss of myocardial infarction or demonstration ofobstructive coronary artery disease).Note: Although abnormal hsTnI values reflect injury to myocardial cells, anelevated hsTnI does not indicate the cause of injury (i.e. ischemia versusnon-ischemic disease).In some cases, myocardial injury is chronic and relatively stable such thathsTnI values remain elevated but do not change substantially over hours todays (examples include chronic kidney disease, heart failure or advancedpatient age).When determining whether there has been a significant rise or fall oftroponin on serial sampling, absolute change in troponin concentration hasgreater diagnostic accuracy for AMI then relative change criteria. A changeof >7 ng/L over a 2-hour interval or a change of >10 ng/L over a 3-hourinterval is suggested as a significant change. If the initial hsTnI isbelow or at the 99th percentile upper reference limit, a 50% change from thebaseline is considered significant. If the initial hsTnI is above the 99thpercentile upper reference limit, a 20% change from the baseline value isconsidered significant. Laboratory - Chemistry and C hemistry - challengeOrdered By: NELLY DIMAS on 05-20-2022 ALP [Catalytic activity/Vol] 210 U/L 54-112 [facility] ALT [Catalytic activity/Vol] 69 U/L 13-66 [facility] Globulin (S) [Mass/Vol] 4.6 g/dL 1.5-4.5 [facility] Natriuretic peptide B (Bld) [Mass/Vol] 104 pg/mL 0-125 [facility] Comment on above: NOTE-Dietary supplem ents containing high biotin levels may cause significantinterference with affected lab tests, including cardiovascular diagnostictests and hormone tests that use biotin technology. Incorrect test resultsmay be generated if there is biotin in the patients specimen. Lipaseon 05-20-2022 Lipase [Catalytic activity/Vol] 32 U/L Low 65-230 [facility] Comment on above: Performed By: #### L IPAS #### [facility] [address] [place], [place] [id number] Lipase ser/plasOrdered By: Park DIMAS on 05-20-2022 Lipase [Catalytic activity/Vol] 32 U/L 65-230 [facility] Monocyte %Ordered By: NELLY DIMAS on 05-20-2022 Monocyte % 0.34 mg/dL 0.00-0.99 [facility] NT Pro-BNPon 05-20-2022 Natriuretic peptide B (Bld) [Mass/Vol] 104 pg/mL Normal 0-125 [facility] Comment on above: Result Comment: NOTE -Dietary supplements containing high biotin levels may cause significant interference with affected lab tests, including cardiovascular diagnostic tests and hormone tests that use biotin technology. Incorrect test results may be generated if there is biotin in the patients specimen. Performed By: #### C BCS #### [address] [id number] No Panel InformationOrdered By: NELLY DIMAS on 05-20-2022 Influenza Type A Antigen Negative (Negative) [facility] Influenza Type B Antigen Negative (Negative) [facility] D-Dimer 0.66 mg/L FEU 0.00-0.49 [facility] Comment on above: Negative Predictive Value = <0.50 mg/L FEUThis D-dimer assay may be used in conjunction with a non-high clinicalpretest probability (PTP) assessment model to exclude pulmonary embolism(PE) disease. In addition, it is indicated as an aid in the exclusion ofdeep vein thrombosis (DVT).The measurement of D-dimer should not be used as an aid in the diagnosis ofvenous thromboembolism (VTE), in a patients with:-Therapeutic dose anticoagulant therapy > 24 hours-Fibrinolytic therapy within previous 7 days-Trauma or surgery within previous 4 weeks-Disseminated malignancies-Aortic aneurysm-Sepsis, severe infections, pneumonia, severe skin infections-Liver cirrhosis- Prothrombin Time 9.2 '' 8.9-12.2 [facility] [place] Comment on above: New Reference Ranges effective 2017. PTTon 05-20-2022 aPTT Coag (Bld) [Time] 28.1 s Normal 19.5-32.1 [facility] Comment on above: Result Comment: New Reference Ranges effective 2017. Performed By: #### P TT #### [address] [id number] PTT PPPOrdered By: NELLY HUNT on 05-20-2022 aPTT Coag (PPP) [Time] 28.1 '' 19.5-32.1 [facility] Comment on above: New Reference Ranges effective 2017. Prothrombin Timeon INR Coag (PPP) [Relative time] 0.97 {INR} Normal [facility] Comment on above: Result Comment: 2.0 - 3.0 Group A 2.5 - 3.5 Group B Group A indications: Prophylaxis and treatment of venous thrombosis. Treatment of pulmonary embolism. Prevention of systemic embolism. Tissue heart valves. Acute myocardial infarction. Valvular heart disease. Atrial fibrillation. Group B indications: Mechanical prosthetic valves. . Performed By: #### C BCS #### [address] [id number] PT Coag (PPP) [Time] 9.2 s Normal 8.9-12.2 [facility] Comment on above: Result Comment: New Reference Ranges effective 2017. Performed By: #### C BCS #### [address] [id number] SARS Antigen (Rapid)on 05-20 SARS Antigen Negative Normal Negative [facility] Comment on above: Result Comment: The Viola 2 SARS Antigen WING is a lateral flow immunofluorescent sandwich assay that is used with the Viola 2 instrument intended for the qualitative detection of the nucleocapsid protein antigen from SARS-CoV-2 in nasopharyngeal (LOOM CHECKER) and nasal (NS) swab specimens directly or after the swabs have been added to viral transport media from individuals who are suspected of COVID-19 by their healthcare provider. Testing is limited to laboratories certified under the Clinical Laboratory Improvement Amendments of 1988 (CLIA), 42 U.S.C. ?263a, that meet the requirements to perform moderate, high or waived complexity tests. This test is authorized for use at the Point of Care (POC), i.e., in patient care settings operating under a CLIA Certificate of Waiver, Certificate of Compliance, or Certificate of Accreditation. The SARS Antigen WING does not differentiate between SARS-CoV and SARS-CoV-2. Results are for the identification of SARS-CoV-2 nucleocapsid protein antigen. Antigen is generally detectable in upper respiratory specimens during the acute phase of infection. Positive results indicate the presence of viral antigens, but clinical correlation with patient history and other diagnostic information is necessary to determine infection status. Positive results do not rule out bacterial infection or co-infection with other viruses. The agent detected may not be the definite cause of disease. Negative results should be treated as presumptive and confirmed with a molecular assay, if necessary for patient management. Negative results do not rule out COVID-19 and should not be used as the sole basis for treatment or patient management decisions, including infection control decisions. Negative results should be considered in the context of a patient?s recent exposures, history and the presence of clinical signs and symptoms consistent with COVID-19. Performed By: #### C #### [address] [id number] Severe acute respiratory syn drome coronavirus 2 (SARS-CoV-2) RNA detection by probe aOrdered By: NELLY DIMAS on 05-20-2022 SARS-CoV-2 (COVID-19) RNA BANDAR+probe Ql (Unsp spec) Not detected Not Detected [facility] Comment on above: This nucleic acid am plification test wasdeveloped and its performancecharacteristics determined by [facility]. Nucleic acid amplificationtests include RT-PCR and TMA. This test hasnot been FDA cleared or approved. This testhas been authorized by FDA under anEmergency Use Authorization (EUA). This testis only authorized for the duration of timethe declaration that circumstances existjustifying the authorization of theemergency use of in vitro diagnostic testsfor detection of SARS-CoV-2 virus and/ordiagnosis of COVID-19 infection undersection 564(b)(1) of the Act, 21 U.S.C.360bbb-3(b) (1), unless the authorizationis terminated or revoked sooner.When diagnostic testing is negative, thepossibility of a false negative resultshould be considered in the context of apatient's recent exposures and the presenceof clinical signs and symptoms consistentwith COVID-19. An individual withoutsymptoms of COVID-19 and who is not [id number] virus would expect to have anegative (not detected) result in thisassay.Performed at: [facility] [id number] Director: Jose Alfredo Belle PhD, Phone: [phone] Troponin I measurement by co ghly sensitive enzyme immunoassayOrdered By: FRANKO WAKEFIELD on 05-20-2022 Troponin I.cardiac High sensitivity method [Mass/Vol] 1 ng/L [facility] Troponin I.cardiac High sensitivity method [Mass/Vol] 25 % [facility] Vital Signs Date Time Vital Sign Value Performing Clinician Facility 09-08-2024 12:16-0400 Body temperature 97.9 [degF] No Primary Care Physician [facility] 09-08-2024 12:16-0400 Diastolic blood pressure 80 mm[Hg] No Primary Care Physician [facility] 09-08-2024 12:16-0400 Heart rate 71 /min No Primary Care Physician [facility] 09-08-2024 12:16-0400 Respiratory rate 16 /min No Primary Care Physician [facility] 09-08-2024 12:16-0400 SaO2% (BldA) [Mass fraction] 92 % No Primary Care Physician [facility] 09-08-2024 12:16-0400 Systolic blood pressure 153 mm[Hg] No Primary Care Physician [facility] 09-08-2024 04:19-0400 Body mass index (BMI) [Ratio] 92.2 kg/m2 No Primary Care Physician [facility] 09-08-2024 04:19-0400 Body weight 227.2 kg No Primary Care Physician [facility] 09-07-2024 14:50-0400 Inhaled oxygen flow rate 2 L/min No Primary Care Physician [facility] 09-06-2024 15:37-0400 Body height 182.88 cm No Primary Care Physician [facility] 09-06-2024 05:00-0400 Heart rate 76 /min No Primary Care Physician [facility] 09-06-2024 05:00-0400 Respiratory rate 26 /min No Primary Care Physician [facility] 09-06-2024 04:30-0400 Diastolic blood pressure 105 mm[Hg] No Primary Care Physician [facility] 09-06-2024 04:30-0400 Systolic blood pressure 147 mm[Hg] No Primary Care Physician [facility] 09-06-2024 04:15-0400 Body temperature 98.7 [degF] No Primary Care Physician [facility] 09-06-2024 04:15-0400 SaO2% (BldA) [Mass fraction] 92 % No Primary Care Physician [facility] 09-06-2024 04:00-0400 Inhaled oxygen flow rate 4 L/min No Primary Care Physician [facility] 09-06-2024 01:19-0400 Inhaled oxygen concentration 3 % No Primary Care Physician [facility] 09-06-2024 00:23-0400 Body height 182.88 cm No Primary Care Physician [facility] 09-06-2024 00:23-0400 Body mass index (BMI) [Ratio] 58.6 kg/m2 No Primary Care Physician [facility] 09-06-2024 00:23-0400 Body weight 196.3 kg No Primary Care Physician [facility] 06-14-2024 16:56-0500 Body temperature 98.6 [degF] No Primary Care Physician [facility] 06-14-2024 16:56-0500 Diastolic blood pressure 96 mm[Hg] No Primary Care Physician [facility] 06-14-2024 16:56-0500 Heart rate 78 /min No Primary Care Physician [facility] 06-14-2024 16:56-0500 Respiratory rate 18 /min No Primary Care Physician [facility] 06-14-2024 16:56-0500 SaO2% (BldA) [Mass fraction] 95 % No Primary Care Physician [facility] 06-14-2024 16:56-0500 Systolic blood pressure 146 mm[Hg] No Primary Care Physician [facility] 06-14-2024 09:57-0500 Inhaled oxygen flow rate 2 L/min No Primary Care Physician [facility] 06-14-2024 05:50-0500 Body mass index (BMI) [Ratio] 67.8 kg/m2 No Primary Care Physician [facility] 06-14-2024 05:50-0500 Body weight 227.25 kg No Primary Care Physician [facility] 11-26-2023 11:00-0400 Body temperature 97.81 [degF] Lizbeth Wilson MD Work Phone: [phone] [address] 11-26-2023 11:00-0400 Diastolic blood pressure 59 mm[Hg] Lizbeth Wilson MD Work Phone: [phone] [address] 11-26-2023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 contraindicated. You will be required to document reason for non-treatment if statin daily dose does not meet guidelines. HIGH DOSE STATIN THERAPY DAILY Atorvastatin > than or = to 40 mg Rosuvastatin > than or = to 20 mg Amlodipine + Atorvastatin > than or = to 2.5/40 mg Ezetimibe + Simvastatin 10/80 mg Simvastatin 80mg Discharge Plan Admission Admit Date/Time: 09/06/24 04:44 Primary Reason for Your Visit: COPD exacerbation Attending Provider: Francesco Montgomery Primary Care Provider: Care Physician,No Primary Consulting Providers: Isma Sheikh Discharge Orders/Prescriptions Prescriptions: New nicotine 14 mg/24 hr Patch 24 Hour 14 mg transdermal DAILY 28 Days Qty: 28 0RF lisinopril 20 mg Tablet 20 mg PO DAILY 30 Days Qty: 30 0RF chlorthalidone 50 mg Tablet 12.5 mg PO DAILY 30 Days Qty: 8 0RF albuterol sulfate 90 mcg/actuation aerosol powdr breath activated 1 inh inhalation Q6H 30 Days Qty: 1 0RF prednisone 20 mg tablet 40 mg PO DAILY 5 Days Qty: 10 0RF dextromethorphan-guaifenesin [Mucinex DM] 60-1,200 mg tablet extended release 12 hr 1 tab PO Q12H 7 Days Qty: 14 0RF Referrals / Follow Up: Chadd Gomez DO [Med Staff - Active Staff] - Within 2 Weeks (For sleep study, PFT. Possible OHS/SINA) Care Physician,No Primary [Primary Care Provider] - Disposition Disposition (needs filled in before D/C Order can be placed): Home, Self Care Charges/Coding Visit Charges Inpatient E&M: 96548 Disch Hosp >30min 09/08/24 1053 <Electronically signed by Francesco Montgomery MD> Cosigner Signature (if applicable): CC: Dr. Francesco Montgomery MD; No Primary Care Physician~ Signed [facility] Work Phone: 1(105) 519-530605-10-2025 Discharge summary Author Francesco Montgomery [facility] Note Date/Time September 08, 2024 10:49 am [facility] Medical Records Department [address] [place] [address] Instructions for Home/Discharge Instructions 09/08/24 0941 MR#: [id number] Acct: [id number] Name: AZALIA MATTHEW II Rep #:[id number] 4 : 1970 53 From: Francesco Hawkins PCP: Tena Physician,No Primary Status :ADM IN Discharge Instructions DC O2, CPAP, BIPAP needs Home O2 Discharge instructions: No Follow Up Care Test Results: Test results from this visit will be discussed in further detail at your follow- up appointment, if applicable. Discharge Plan Admission Admit Date/Time: 09/06/24 04:44 Primary Reason for Your Visit: COPD exacerbation Attending Provider: Francesco Montgomery Primary Care Provider: Care Physician,No Primary Consulting Providers: Isma Sheikh Discharge Orders/Prescriptions Prescriptions: New nicotine 14 mg/24 hr Patch 24 Hour 14 mg transdermal DAILY 28 Days Qty: 28 0RF lisinopril 20 mg Tablet 20 mg PO DAILY 30 Days Qty: 30 0RF chlorthalidone 50 mg Tablet 12.5 mg PO DAILY 30 Days Qty: 8 0RF albuterol sulfate 90 mcg/actuation aerosol powdr breath activated 1 inh inhalation Q6H 30 Days Qty: 1 0RF prednisone 20 mg tablet 40 mg PO DAILY 5 Days Qty: 10 0RF dextromethorphan-guaifenesin [Mucinex DM] 60-1,200 mg tablet extended release 12 hr 1 tab PO Q12H 7 Days Qty: 14 0RF Referrals / Follow Up: Care Physician,No Primary [Primary Care Provider] - Chadd Gomez DO [Med Staff - Active Staff] - Within 2 Weeks (For sleep study, PFT. Possible OHS/SINA) Disposition Disposition (needs filled in before D/C Order can be placed): Home, Self Care 09/08/24 1049<Electronically signed by Francesco Montgomery MD>Francesco Montgomery MD CC: Dr. Isma Sheikh DO; No Primary Care Physician ~ Signed [facility] Work Phone: 1(929) 960-767605-10-2025 Discharge summary [facility] Medical Records Department [address] [place] [address] Discharge Summary 09/08/24 1050 MR#: [id number] Acct: [id number] Name: AZALIA MATTHEW II Rep #:[id number] : 1970 53 From: Francesco Hawkins PCP: Care Physician,No Primary Status :ADM IN Location: [place] [address] Providers Date of Admission: 09/06/24 Date of Discharge: 09/08/24 Primary Care Physician: No Primary Care Phys Reason For Visit: PNEUMONIA, AE COPD AND ESPIRATORY INSUFFICIENCY. Diagnosis Discharge Diagnosis (1) Pneumonia: Status: Acute Code(s): J18.9 - Pneumonia, unspecified organism Qualifiers: Pneumonia type: due to unspecified organism Laterality: unspecified laterality Lung location: unspecified part of lung Qualified Code(s): J18.9 - Pneumonia, unspecified organism (2) Acute exacerbation of chronic obstructive pulmonary disease (COPD): Status: Chronic Code(s): J44.1 - Chronic obstructive pulmonary disease with (acute) exacerbation (3) Tracheal stenosis: Status: Acute Code(s): J39.8 - Other specified diseases of upper respiratory tract (4) Acute respiratory insufficiency: Status: Acute Code(s): R06.89 - Other abnormalities of breathing (5) Morbid obesity with BMI of 50.0-59.9, adult: Status: Acute Code(s): E66.01 - Morbid (severe) obesity due to excess calories; Z68.43 - Body mass index [BMI] 50.0-59.9, adult (6) Obesity hypoventilation syndrome: Status: Acute Code(s): E66.2 - Morbid (severe) obesity with alveolar hypoventilation (7) SINA (obstructive sleep apnea): Status: Acute Code(s): G47.33 - Obstructive sleep apnea (adult) (pediatric) (8) Tobacco abuse: Status: Acute Code(s): Z72.0 - Tobacco use (9) Elevated d-dimer: Status: Acute Code(s): R79.89 - Other specified abnormal findings of blood chemistry Plan 53 year-old gentleman with history of COPD admitted with shortness of breath for several days to weeks but got worse in the last 3 days with increased cough and sputum production, greenish-yellow sputum, chills. Pleuritic chest discomfort on the left chest Acute exacerbation of COPD, possible due to viral pneumonia with super morbid obesity: CTA chest was negative for large central or hilar PE. Segmental and subsegmental could not be evaluated because of timing of contrast. Small symmetric narrowing of the mid trachea without obvious mass. Bilateral perihilar groundglass opacity appears greatest in the right upper lobe may be inflammatory or infectious. No focal consolidation. It still is possible viral pneumonia although respiratory panel is negative. Patient is being managed on scheduled bronchodilator, IV Solu-Medrol, Mucinex, incentive spirometryand Pep. Discontinue Zosyn. Continue azithromycin. Patient is being managed on scheduled bronchodilator, IV Solu-Medrol, Mucinex, incentive spirometry and Pep. 09/08: Patient is doing well. Wheezing has much improved. Patient on room air. Patient is dischargedon burst therapy of prednisone, albuterol inhaler, Mucinex DM. Advised follow-up in pulmonary clinic for PFT and sleep studies Hypertensive urgency: Patient blood pressure was very high, when he came in about 189/97, 186/94 and got controlled on lisinopril 20 mg daily and chlorthalidone 12.5 mg daily. Prescription given for both antihypertensive medications. Patient has to find PCP follow-up within 1 month. Super-morbid obesity; with BMI of 67.9 kg/m?. Patient might have obesity hypoventilation syndrome/obstructive sleep apnea Chronic cigarette smoking/tobacco abuse ~1 ppd x ~36 years, prescription given for nicotine patch Chronic venous stasis/varicose vein due to super morbid obesity DVT/GI prophylaxis - Enoxaparin 40 mg sq BID. Famotidine 20 mg PO BID. Discharge medication reconciliation done. Discharge follow-up instructions completed. Discharge process discussed with the patient and all questions were answered to patient's satisfaction. Follow with PCP in 1 to 2 weeks Total time spent, exact 35 minutes on discharge meds reconciliation, examination, coordination of care with nurses and ancillary staff, review of imaging and blood test and discussion with the patient on follow-up instructions. Medications at Discharge Home Medications albuterol sulfate 90 mcg/actuation breath activated powder inhaler 1 inh inhalation Q6H 1 month #1 ea 09/08/24 chlorthalidone 50 mg tablet 12.5 mg (1/4 x 50 mg) PO DAILY 30 days #8 tabs 09/08/24 dextromethorphan-guaifenesin ER 60 mg-1,200 mg tab,extend release,12hr (Mucinex DM) 1 tab PO Q12H 7days #14 tabs 09/08/24 lisinopril 20 mg tablet 20 mg PO DAILY 30 days #30 tabs 09/08/24 nicotine 14 mg/24 hr daily transdermal patch 14 mg transdermal DAILY 4 weeks #28 ea 09/08/24 prednisone 20 mg tablet 40 mg (2 x 20 mg) PO DAILY 5 days #10 tabs 09/08/24 Physical Exam Narrative Seen and examined Patient shortness of breath has much improved. No audible wheezing. Morbidly obese. Possibly might have sleep apnea with short and wide neck. Patient lives in [facility] Physical exam General: Alert, Oriented x3, Cooperative. BMI 67.9 kg/m? HEENT: Atraumatic, PERRLA, EOMI, Normocephalic. Oral: Deep oropharyngeal structures could not be visualized Neck: Supple, No JVD, Negative Carotid Bruits Chest wall/Lungs: Air entry diminished in bilateral lungs. Mild expiratory wheezing Cardiovascular: Regular rate and rhythm, Normal S1,S2, No M/G/R Abdomen: Bowel Sounds Present, Soft, Non Tender, Non-Distended : No dysuria. No renal angle tenderness. No suprapubic tenderness. Extremities: No edema, Capillary Refill Less than 3 Seconds Skin: No rashes, No breakdown Musculoskeletal: No Tenderness to Palpation of Joints or Extremities Neurological: Cranial nerves II-XII grossly intact, DTR 2+/4. No acute focal neurological deficit. Psych/Mental Status: Flat affect. Weight / BMI Weight Weight: 500 lb 14.244 oz Body Mass Index (BMI) 92.2 ABG / Lab / Microbiology Data 09/07/24 05:00 09/07/24 05:00 Microbiology: Microbiology 09/06/24 11:05 Mucosa - Nose Respiratory Panel (PCR) - Final 09/06/24 00:45 Mucosa - Nose SARS-CoV-2, Influenza & RSV (PCR) - Final D/C Instructions DC O2, CPAP, BIPAP Needs Home O2 Discharge instructions: No Meaningful Use Info Meaningful Use Meaningful Use Diagnoses (Choose all that apply): None applicable Ischemic Stroke Statin Dosing Therapy Reference: STATIN DOSE THERAPY REFERENCE: * Patients > 75 years receive moderate or high dose statin therapy. * Patients 75 years or YOUNGER should receive HIGH intensity statin dose unless contraindicated. You will be required to document reason for non-treatment if statin daily dose does not meet guidelines. HIGH DOSE STATIN THERAPY DAILY Atorvastatin > than or = to 40 mg Rosuvastatin > than or = to 20 mg Amlodipine + Atorvastatin > than or = to 2.5/40 mg Ezetimibe + Simvastatin 10/80 mg Simvastatin 80mg Discharge Plan Admission Admit Date/Time: 09/06/24 04:44 Primary Reason for Your Visit: COPD exacerbation Attending Provider: Francesco Montgomery Primary Care Provider: Care Physician,No Primary Consulting Providers: Isma Sheikh Discharge Orders/Prescriptions Prescriptions: New nicotine 14 mg/24 hr Patch 24 Hour 14 mg transdermal DAILY 28 Days Qty: 28 0RF lisinopril 20 mg Tablet 20 mg PO DAILY 30 Days Qty: 30 0RF chlorthalidone 50 mg Tablet 12.5 mg PO DAILY 30 Days Qty: 8 0RF albuterol sulfate 90 mcg/actuation aerosol powdr breath activated 1 inh inhalation Q6H 30 Days Qty: 1 0RF prednisone 20 mg tablet 40 mg PO DAILY 5 Days Qty: 10 0RF dextromethorphan-guaifenesin [Mucinex DM] 60-1,200 mg tablet extended release 12 hr 1 tab PO Q12H 7 Days Qty: 14 0RF Referrals / Follow Up: Chadd Gomez DO [Med Staff - Active Staff] - Within 2 Weeks (For sleep study, PFT. Possible OHS/SINA) Care Physician,No Primary [Primary Care Provider] - Disposition Disposition (needs filled in before D/C Order can be placed): Home, Self Care Charges/Coding Visit Charges Inpatient E&M: 24894 Disch Hosp >30min 09/08/24 1053 Cosigner Signature (if applicable): CC: Dr. Francesco Montgomery MD; No Primary Care Physician~ Signed [facility]05-10-2025 [facility] Medical Records Department [address] [place] [address] Discharge Summary 09/08/24 1050 MR#: [id number] Acct: [id number] Name: AZALIA MATTHEW II Rep #: [id number] : 1970 53 From: Francesco Montgomery MD PCP: Care Physician,No Primary Status:[facility]M [facility] Date of Admission: 09/06/24 Date of Discharge: 09/08/24 Primary Care Physician: No Primary Care Phys Reason For Visit: PNEUMONIA, AE COPD AND ESPIRATORY INSUFFICIENCY. Diagnosis Discharge Diagnosis (1) Pneumonia: Status: Acute Code(s): J18.9 - Pneumonia, unspecified organism Qualifiers: Pneumonia type: due to unspecified organism Laterality: unspecified laterality Lung location: unspecified part of lung Qualified Code(s): J18.9 - Pneumonia, unspecified organism (2) Acute exacerbation of chronic obstructive pulmonary disease (COPD): Status: Chronic Code(s): J44.1 - Chronic obstructive pulmonary disease with (acute) exacerbation (3) Tracheal stenosis: Status: Acute Code(s): J39.8 - Other specified diseases of upper respiratory tract (4) Acute respiratory insufficiency: Status: Acute Code(s): R06.89 - Other abnormalities of breathing (5) Morbid obesity with BMI of 50.0-59.9, adult: Status: Acute Code(s): E66.01 - Morbid (severe) obesity due to excess calories; Z68.43 - Body mass index [BMI] 50.0-59.9, adult (6) Obesity hypoventilation syndrome: Status: Acute Code(s): E66.2 - Morbid (severe) obesity with alveolar hypoventilation (7) SINA (obstructive sleep apnea): Status: Acute Code(s): G47.33 - Obstructive sleep apnea (adult) (pediatric) (8) Tobacco abuse: Status: Acute Code(s): Z72.0 - Tobacco use (9) Elevated d-dimer: Status: Acute Code(s): R79.89 - Other specified abnormal findings of blood chemistry Plan 53 year-old gentleman with history of COPD admitted with shortness of breath for several days to weeks but got worse in the last 3 days with increased cough and sputum production, greenish-yellow sputum, chills. Pleuritic chest discomfort on the left chest Acute exacerbation of COPD, possible due to viral pneumonia with super morbid obesity: CTA chest was negative for large central or hilar PE. Segmental and subsegmental could not be evaluated because of timing of contrast. Small symmetric narrowing of the mid trachea without obvious mass. Bilateral perihilar groundglass opacity appears greatest in the right upper lobe may be inflammatory or infectious. No focal consolidation. It still is possible viral pneumonia although respiratory panel is negative. Patient is being managed on scheduled bronchodilator, IV Solu-Medrol, Mucinex, incentive spirometry and Pep. Discontinue Zosyn. Continue azithromycin. Patient is being managed on scheduled bronchodilator, IV Solu-Medrol, Mucinex, incentive spirometry and Pep. 09/08: Patient is doing well. Wheezing has much improved. Patient on room air. Patient is discharged on burst therapy of prednisone, albuterol inhaler, Mucinex DM. Advised follow-up in pulmonary clinic for PFT and sleep studies Hypertensive urgency: Patient blood pressure was very high, when he came in about 189/97, 186/94 and got controlled on lisinopril 20 mg daily and chlorthalidone 12.5 mg daily. Prescription given for both antihypertensive medications. Patient has to find PCP follow-up within 1 month. Super-morbid obesity; with BMI of 67.9 kg/m???. Patient might have obesity hypoventilation syndrome/obstructive sleep apnea Chronic cigarette smoking/tobacco abuse 1 ppd x 36 years, prescription given for nicotine patch Chronic venous stasis/varicose vein due to super morbid obesity DVT/GI prophylaxis - Enoxaparin 40 mg sq BID. Famotidine 20 mg PO BID. Discharge medication reconciliation done. Discharge follow-up instructions completed. Discharge process discussed with the patient and all questions were answered to patient's satisfaction. Follow with PCP in 1 to 2 weeks Total time spent, exact 35 minutes on discharge meds reconciliation, examination, coordination of care with nurses and ancillary staff, review of imaging and blood test and discussion with the patient on follow-up instructions. Medications at Discharge Home Medications albuterol sulfate 90 mcg/actuation breath activated powder inhaler 1 inh inhalation Q6H 1 month #1 ea 09/08/24 chlorthalidone 50 mg tablet 12.5 mg (1/4 x 50 mg) PO DAILY 30 days #8 tabs 09/08/24 dextromethorphan-guaifenesin ER 60 mg-1,200 mg tab,extend release,12hr (Mucinex DM) 1 tab PO Q12H 7 days #14 tabs 09/08/24 lisinopril 20 mg tablet 20 mg PO DAILY 30 days #30 tabs 09/08/24 nicotine 14 mg/24 hr daily transdermal patch 14 mg transdermal DAILY 4 weeks #28 ea 09/08/24 prednisone 20 mg tablet 40 mg (2 x 20 mg) PO DAILY 5 days #10 tabs 09/08/24 Physical Exam Narrative Seen and examined Patient shortness (more content not included)...[facility] 09-08-2024 Discharge summary [facility] Medical Records Department [address] [place] [address] Instructions for Home/Discharge Instructions 09/08/24 0941 MR#: [id number] Acct: [id number] Name: AZALIA MATTHEW II Rep #:[id number] : 1970 53 From: Francesco Hawkins PCP: Tena Physician,No Primary Status :ADM IN Discharge Instructions DC O2, CPAP, BIPAP needs Home O2 Discharge instructions: No Follow Up Care Test Results: Test results from this visit will be discussed in further detail at your follow- up appointment, if applicable. Discharge Plan Admission Admit Date/Time: 09/06/24 04:44 Primary Reason for Your Visit: COPD exacerbation Attending Provider: Francesco Montgomery Primary Care Provider: Tena Physician,No Primary Consulting Providers: Isma Sheikh Discharge Orders/Prescriptions Prescriptions: New nicotine 14 mg/24 hr Patch 24 Hour 14 mg transdermal DAILY 28 Days Qty: 28 0RF lisinopril 20 mg Tablet 20 mg PO DAILY 30 Days Qty: 30 0RF chlorthalidone 50 mg Tablet 12.5 mg PO DAILY 30 Days Qty: 8 0RF albuterol sulfate 90 mcg/actuation aerosol powdr breath activated 1 inh inhalation Q6H 30 Days Qty: 1 0RF prednisone 20 mg tablet 40 mg PO DAILY 5 Days Qty: 10 0RF dextromethorphan-guaifenesin [Mucinex DM] 60-1,200 mg tablet extended release 12 hr 1 tab PO Q12H 7 Days Qty: 14 0RF Referrals / Follow Up: Care Physician,No Primary [Primary Care Provider] - Chadd Gomez DO [Med Staff - Active Staff] - Within 2 Weeks (For sleep study, PFT. Possible OHS/SINA) Disposition Disposition (needs filled in before D/C Order can be placed): Home, Self Care 09/08/24 1049Francesco Montgomery MD CC: Dr. Isma Sheikh DO; No Primary Care Physician ~ Signed [facility]05-09-2025 Progress note Author Francesco Montgomery [facility] Note Date/Time September 07, 2024 4:10pm [facility] Medical Records Department [address] [place] [address] Progress Note - Hospitalist 09/07/24 1606 MR#: [id number] Acct: [id number] Name: AZALIA MATTHEW TARI Rep #:[id number] : 1970 53 From: Francesco Hawkins PCP: Care Physician,No Primary Status :ADM IN Location: [place] [address] Reason for Visit Reason for Visit: Diagnoses Morbid (severe) obesity due to excess calories (09/06/24) Morbid (severe) obesity with alveolar hypoventilation (09/06/24) Obstructive sleep apnea (adult) (pediatric) (09/06/24) Pneumonia, unspecified organism (09/06/24) Other specified diseases of upper respiratory tract (09/06/24) Chronic obstructive pulmonary disease with (acute) exacerbation (09/06/24) Other abnormalities of breathing (09/06/24) Other specified abnormal findings of blood chemistry (09/06/24) Body mass index [BMI] 50.0-59.9, adult (09/06/24) Tobacco use (09/06/24) Objective Data Objective Data Vital Signs: Vital Signs Temp Pulse Resp BP Pulse Ox O2 Del Method O2 Flow Rate 98.1 F 79 20 H 146/87 H 94 Nasal Cannula 2 09/07/24 14:50 09/07/24 14:50 09/07/24 14:50 09/07/24 14:50 09/07/24 14:50 09/07/24 14:50 09/07/24 14:50 FiO2 3 09/06/24 01:19 Oxygen Flow Rate (L/min) 2 Oxygen Delivery Method Nasal Cannula Weight: 500 lb 14.244 oz Body Mass Index (BMI) 92.2 Intake & Output: Intake and Output for Last 24 Hours 09/05/24 09/06/24 09/07/24 23:59 23:59 23:59 Intake Total 3210 / 3210 387.5 / 387.5 Output Total 790 / 790 400 / 400 Balance 2420 / 2420 -12.5 / -12.5 Lab / Micro Data 09/07/24 05:00 09/07/24 05:00 Labs: Laboratory Results - last 24 hr 09/07/24 05:00: WBC 11.7 H, RBC 5.96, Hgb 17.6 H, Hct 52.9, MCV 88.8, MCH 29.5, MCHC 33.3, RDW Std Deviation 45.1 H, RDW Coeff of Pradeep 13.9, Plt Count 262, MPV 9.8, Immature Gran % (Auto) 0.400, Neut % (Auto) 85.7 H, Lymph % (Auto) 10.7 L, Price % (Auto) 3.0, Eos % (Auto) 0.0, Baso % (Auto) 0.2, Absolute Neuts (auto) 10.1 H, Absolute Lymphs (auto) 1.25, Nucleated RBC % 0, Sodium 136, Potassium 4.4, Chloride 103, Carbon Dioxide 23.2, Anion Gap 10, BUN 12, Creatinine 0.65 L, Estim Creat Clear Calc 232.49, Est GFR (MDRD) Non-Af 113, BUN/Creatinine Ratio 18.5, Glucose 156 H, Calcium 9.1, Phosphorus 2.8, Total Bilirubin 0.70, AST 17, ALT 23, Alkaline Phosphatase 174 H, Total Protein 7.8, Albumin 3.9, Globulin 3.9, Albumin/Globulin Ratio 1.0 Micro: Microbiology 09/06/24 11:05 Mucosa - Nose Respiratory Panel (PCR) - Final 09/06/24 00:45 Mucosa - Nose SARS-CoV-2, Influenza & RSV (PCR) - Final Rhythm Strip Rhythm Strip: Sinus Rhythm Rate: 78 Ectopy: None Physical Exam Narrative Seen and examined Patient shortness of breath is better. Morbidly obese. Possibly might have sleep apnea with short and wide neck. Patient lives in [facility] Physical exam General: Alert, Oriented x3, Cooperative. BMI 67.9 kg/m? HEENT: Atraumatic, PERRLA, EOMI, Normocephalic. Oral: Deep oropharyngeal structures could not be visualized Neck: Supple, No JVD, Negative Carotid Bruits Chest wall/Lungs: Air entry diminished in bilateral lungs. Bilateral expiratory wheezing Cardiovascular: Regular rate and rhythm, Normal S1,S2, No M/G/R Abdomen: Bowel Sounds Present, Soft, Non Tender, Non-Distended : No dysuria. No renal angle tenderness. No suprapubic tenderness. Extremities: No edema, Capillary Refill Less than 3 Seconds Skin: No rashes, No breakdown Musculoskeletal: No Tenderness to Palpation of Joints or Extremities Neurological: Cranial nerves II-XII grossly intact, DTR 2+/4. No acute focal neurological deficit. Psych/Mental Status: Flat affect. Assessment & Plan Assessment/Plan (1) Pneumonia: QUALIFIERS: Pneumonia type: due to unspecified organism Laterality: unspecified laterality Lung location: unspecified part of lung Qualified Code(s): J18.9 - Pneumonia, unspecified organism (2) Acute exacerbation of chronic obstructive pulmonary disease (COPD): (3) Tracheal stenosis: (4) Acute respiratory insufficiency: (5) Morbid obesity with BMI of 50.0-59.9, adult: (6) Obesity hypoventilation syndrome: (7) SINA (obstructive sleep apnea): (8) Tobacco abuse: (9) Elevated d-dimer: PLAN: Plan 53 year-old gentleman with history of COPD admitted with shortness of breath for several days to weeks but got worse in the last 3 days with increased cough and sputum production, greenish-yellow sputum, chills. Pleuritic chest discomfort on the left chest Acute exacerbation of COPD, possible due to viral pneumonia with super morbid obesity: CTA chest was negative for large central or hilar PE. Segmental and subsegmental could not be evaluated because of timing of contrast. Small symmetric narrowing of the mid trachea without obvious mass. Bilateral perihilar groundglass opacity appears greatest in the right upper lobe may be inflammatory or infectious. No focal consolidation. It still is possible viral pneumonia although respiratory panel is negative. Patient is being managed on scheduled bronchodilator, IV Solu-Medrol, Mucinex, incentive spirometry and Pep. Discontinue Zosyn. Continue azithromycin. Patient is being managed on scheduled bronchodilator, IV Solu-Medrol, Mucinex, incentive spirometry and Pep. Super-morbid obesity; with BMI of 67.9 kg/m?. Patient might have obesity hypoventilation syndrome/obstructive sleep apnea Chronic cigarette smoking/tobacco abuse ~1 ppd x ~36 years, Chronic venous stasis/varicose vein due to super morbid obesity DVT/GI prophylaxis - Enoxaparin 40 mg sq BID. Famotidine 20 mg PO BID. Charges/Coding Visit Charges Inpatient E&M: 69517 Subs Hosp L2 09/07/24 1610 <Electronically signed by Francesco Montgomery MD> Cosigner Signature (if applicable): CC: ~ Signed [facility] Work Phone: [phone]) 854-224005-09-2025 Progress note [facility] Medical Records Department [address] [place] [id number] Progress Note - Hospitalist 09/07/24 1606 MR#: [id number] Acct: [id number] Name: AZALIA MATTHEW II Rep #:[id number] : 1970 53 From: Francesco Hawkins PCP: Care Physician,No Primary Status :ADM IN Location: [place] [address] Reason for Visit Reason for Visit: Diagnoses Morbid (severe) obesity due to excess calories (09/06/24) Morbid (severe) obesity with alveolar hypoventilation (09/06/24) Obstructive sleep apnea (adult) (pediatric) (09/06/24) Pneumonia, unspecified organism (09/06/24) Other specified diseases of upper respiratory tract (09/06/24) Chronic obstructive pulmonary disease with (acute) exacerbation (09/06/24) Other abnormalities of breathing (09/06/24) Other specified abnormal findings of blood chemistry (09/06/24) Body mass index [BMI] 50.0-59.9, adult (09/06/24) Tobacco use (09/06/24) Objective Data Objective Data Vital Signs: Vital Signs Temp Pulse Resp BP Pulse Ox O2 Del Method O2 Flow Rate 98.1 F 79 20 H 146/87 H 94 Nasal Cannula 2 09/07/24 14:50 09/07/24 14:50 09/07/24 14:50 09/07/24 14:50 09/07/24 14:50 09/07/24 14:50 09/07/24 14:50 FiO2 3 09/06/24 01:19 Oxygen Flow Rate (L/min) 2 Oxygen Delivery Method Nasal Cannula Weight: 500 lb 14.244 oz Body Mass Index (BMI) 92.2 Intake & Output: Intake and Output for Last 24 Hours 09/05/24 09/06/24 09/07/24 23:59 23:59 23:59 Intake Total 3210 / 3210 387.5 / 387.5 Output Total 790 / 790 400 / 400 Balance 2420 / 2420 -12.5 / -12.5 Lab / Micro Data 09/07/24 05:00 09/07/24 05:00 Labs: Laboratory Results - last 24 hr 09/07/24 05:00: WBC 11.7 H, RBC 5.96, Hgb 17.6 H, Hct 52.9, MCV 88.8, MCH 29.5, MCHC 33.3, RDW Std Deviation 45.1 H, RDW Coeff of Pradeep 13.9, Plt Count 262, MPV 9.8, Immature Gran % (Auto) 0.400, Neut % (Auto) 85.7 H, Lymph % (Auto) 10.7 L, Price % (Auto) 3.0, Eos % (Auto) 0.0, Baso % (Auto) 0.2, Absolute Neuts (auto) 10.1 H, Absolute Lymphs (auto) 1.25, Nucleated RBC % 0, Sodium 136, Potassium 4.4,Chloride 103, Carbon Dioxide 23.2, Anion Gap 10, BUN 12, Creatinine 0.65 L, Estim Creat Clear Calc 232.49, Est GFR (MDRD) Non-Af 113, BUN/Creatinine Ratio 18.5, Glucose 156 H, Calcium 9.1, Phosphorus2.8, Total Bilirubin 0.70, AST 17, ALT 23, Alkaline Phosphatase 174 H, Total Protein 7.8, Albumin 3.9, Globulin 3.9, Albumin/Globulin Ratio 1.0 Micro: Microbiology 09/06/24 11:05 Mucosa - Nose Respiratory Panel (PCR) - Final 09/06/24 00:45 Mucosa - Nose SARS-CoV-2, Influenza & RSV (PCR) - Final Rhythm Strip Rhythm Strip: Sinus Rhythm Rate: 78 Ectopy: None Physical Exam Narrative Seen and examined Patient shortness of breath is better. Morbidly obese. Possibly might have sleep apnea with short and wide neck. Patient lives in [facility] Physical exam General: Alert, Oriented x3, Cooperative. BMI 67.9 kg/m? HEENT: Atraumatic, PERRLA, EOMI, Normocephalic. Oral: Deep oropharyngeal structures could not be visualized Neck: Supple, No JVD, Negative Carotid Bruits Chest wall/Lungs: Air entry diminished in bilateral lungs. Bilateral expiratory wheezing Cardiovascular: Regular rate and rhythm, Normal S1,S2, No M/G/R Abdomen: Bowel Sounds Present, Soft, Non Tender, Non-Distended : No dysuria. No renal angle tenderness. No suprapubic tenderness. Extremities: No edema, Capillary Refill Less than 3 Seconds Skin: No rashes, No breakdown Musculoskeletal: No Tenderness to Palpation of Joints or Extremities Neurological: Cranial nerves II-XII grossly intact, DTR 2+/4. No acute focal neurological deficit. Psych/Mental Status: Flat affect. Assessment & Plan Assessment/Plan (1) Pneumonia: QUALIFIERS: Pneumonia type: due to unspecified organism Laterality: unspecified laterality Lung location: unspecified part of lung Qualified Code(s): J18.9 - Pneumonia, unspecified organism (2) Acute exacerbation of chronic obstructive pulmonary disease (COPD): (3) Tracheal stenosis: (4) Acute respiratory insufficiency: (5) Morbid obesity with BMI of 50.0-59.9, adult: (6) Obesity hypoventilation syndrome: (7) SINA (obstructive sleep apnea): (8) Tobacco abuse: (9) Elevated d-dimer: PLAN: Plan 53 year-old gentleman with history of COPD admitted with shortness of breath for several days to weeks but got worse in the last 3 days with increased cough and sputum production, greenish-yellow sputum, chills. Pleuritic chest discomfort on the left chest Acute exacerbation of COPD, possible due to viral pneumonia with super morbid obesity: CTA chest was negative for large central or hilar PE. Segmental and subsegmental could not be evaluated because of timing of contrast. Small symmetric narrowing of the mid trachea without obvious mass. Bilateral perihilar groundglass opacity appears greatest in the right upper lobe may be inflammatory or infectious. No focal consolidation. It still is possible viral pneumonia although respiratory panel is negative. Patient is being managed on scheduled bronchodilator, IV Solu-Medrol, Mucinex, incentive spirometryand Pep. Discontinue Zosyn. Continue azithromycin. Patient is being managed on scheduled bronchodilator, IV Solu-Medrol, Mucinex, incentive spirometry and Pep. Super-morbid obesity; with BMI of 67.9 kg/m?. Patient might have obesity hypoventilation syndrome/obstructive sleep apnea Chronic cigarette smoking/tobacco abuse ~1 ppd x ~36 years, Chronic venous stasis/varicose vein due to super morbid obesity DVT/GI prophylaxis - Enoxaparin 40 mg sq BID. Famotidine 20 mg PO BID. Charges/Coding Visit Charges Inpatient E&M: 81679 Subs Hosp L2 09/07/24 1610 Cosigner Signature (if applicable): CC: ~ Signed [facility]05-08-2025 Progress note Author Francesco Montgomery [facility] Note Date/Time September 06, 2024 5:40pm [facility] Medical Records Department [address] [place] [address] Progress Note - Hospitalist 09/06/24 1005 MR#: [id number] Acct: [id number] Name: TANYAAZALIA BETO MARC Rep #:[id number] : 1970 53 From: Francesco Hawkins PCP: Care Physician,No Primary Status :ADM IN Location: [place] [address] Hospitalist Note .-year-old gentleman with history of COPD admitted with shortness of breath for several days to weeks but got worse in the last 3 days with increased cough and sputum production, greenish-yellow sputum, chills. Pleuritic chest discomfort on the left chest Acute exacerbation of COPD: Possible viral pneumonia with super morbid obesity: CTA chest was negative for large central or hilar PE. Segmental and subsegmental could not be evaluated because of timing of contrast. Small symmetric narrowing of the mid trachea without obvious mass. Bilateral perihilar groundglass opacity appears greatest in the right upper lobe may be inflammatory or infectious. No focal consolidation. It still is possible viral pneumonia although respiratory panel is negative. Patient is being managed on scheduled bronchodilator, IV Solu-Medrol, Mucinex, incentive spirometry and Pep. Discontinue Zosyn. Continue azithromycin. Patient is being managed on scheduled bronchodilator, IV Solu-Medrol, Mucinex, incentive spirometry and Pep. Microbiology Past 72 Hours 09/06/24 11:05 Mucosa - Nose Respiratory Panel (PCR) - Final 09/06/24 00:45 Mucosa - Nose SARS-CoV-2, Influenza & RSV (PCR) - Final Laboratory Results 09/06/24 00:52: WBC 10.6, RBC 6.08, Hgb 17.7 H, Hct 52.6, MCV 86.5, MCH 29.1, MCHC 33.7, RDW Std Deviation 43.9, RDW Coeff of Pradeep 13.9, Plt Count 258, MPV 9.6, Immature Gran % (Auto) 0.300, Neut % (Auto) 75.4 H, Lymph % (Auto) 15.8 L, Price % (Auto) 6.6, Eos % (Auto) 1.4, Baso % (Auto) 0.5, Absolute Neuts (auto) 8.0 H, Absolute Lymphs (auto) 1.67, Nucleated RBC % 0, D-Dimer Quant (PE/DVT) 0.53 H*, Sodium 137, Potassium 4.2, Chloride 101, Carbon Dioxide 24.5, Anion Gap11, BUN 11, Creatinine 0.75, Estim Creat Clear Calc 203.83, Est GFR (MDRD) Non-Af 109, BUN/Creatinine Ratio 15.2, Glucose 113 H, Calcium 8.9, Troponin T High Sens 10, NT pro BNP II 306 09/06/24 02:48: Magnesium 2.1, Troponin T Hi Sens 2 Hr 9, TSH 3.070 09/06/24 06:55: Urine Color Yellow, Urine Clarity Clear, Urine pH 5.0, Ur Specific [place] 1.010, Urine Protein 30 H, Urine Glucose (UA) Normal, Urine Ketones Negative, Urine Occult Blood 10 H, Urine Nitrite Negative, Urine Bilirubin Negative, Urine Urobilinogen Normal, Ur Leukocyte Esterase Negative, Urine RBC 0-5 SEEN, Urine WBC 0-5 SEEN, Ur Squamous Epith Cells 0-5 SEEN, Urine Bacteria 0 SEEN, Urine Mucus 0 SEEN 09/06/24 1740 <Electronically signed by Francesco Montgomery MD> Cosigner Signature (if applicable): CC: ~ Signed [facility] Work Phone: 1(137) 844-654605-08-2025 Progress note [facility] Medical Records Department [address] [place] [address] Progress Note - Hospitalist 09/06/24 1005 MR#: [id number] Acct: [id number] Name: AZALIA MATTHEW II Rep #:[id number] : 1970 53 From: Francesco Hawkins PCP: Care Physician,No Primary Status :ADM IN Location: [place] [address] Hospitalist Note .-year-old gentleman with history of COPD admitted with shortness of breath for several days to weeks but got worse in the last 3 days with increased cough and sputum production, greenish-yellow sputum, chills. Pleuritic chest discomfort on the left chest Acute exacerbation of COPD: Possible viral pneumonia with super morbid obesity: CTA chest was negative for large central or hilar PE. Segmental and subsegmental could not be evaluated because of timing of contrast. Small symmetric narrowing of the mid trachea without obvious mass. Bilateral perihilar groundglass opacity appears greatest in the right upper lobe may be inflammatory or infectious. No focal consolidation. It still is possible viral pneumonia although respiratory panel is negative. Patient is being managed on scheduled bronchodilator, IV Solu-Medrol, Mucinex, incentive spirometryand Pep. Discontinue Zosyn. Continue azithromycin. Patient is being managed on scheduled bronchodilator, IV Solu-Medrol, Mucinex, incentive spirometry and Pep. Microbiology Past 72 Hours 09/06/24 11:05 Mucosa - Nose Respiratory Panel (PCR) - Final 09/06/24 00:45 Mucosa - Nose SARS-CoV-2, Influenza & RSV (PCR) - Final Laboratory Results 09/06/24 00:52: WBC 10.6, RBC 6.08, Hgb 17.7 H, Hct 52.6, MCV 86.5, MCH 29.1, MCHC 33.7, RDW Std Deviation 43.9, RDW Coeff of Pradeep 13.9, Plt Count 258, MPV 9.6, Immature Gran % (Auto) 0.300, Neut % (Auto) 75.4 H, Lymph % (Auto) 15.8 L, Price % (Auto) 6.6, Eos % (Auto) 1.4, Baso % (Auto) 0.5, AbsoluteNeuts (auto) 8.0 H, Absolute Lymphs (auto) 1.67, Nucleated RBC % 0, D-Dimer Quant (PE/DVT) 0.53 H*,Sodium 137, Potassium 4.2, Chloride 101, Carbon Dioxide 24.5, Anion Gap11, BUN 11, Creatinine 0.75,Estim Creat Clear Calc 203.83, Est GFR (MDRD) Non-Af 109, BUN/Creatinine Ratio 15.2, Glucose 113 H,Calcium 8.9, Troponin T High Sens 10, NT pro BNP II 306 09/06/24 02:48: Magnesium 2.1, Troponin T Hi Sens 2 Hr 9, TSH 3.070 09/06/24 06:55: Urine Color Yellow, Urine Clarity Clear, Urine pH 5.0, Ur Specific [place] 1.010, Urine Protein 30 H, Urine Glucose (UA) Normal, Urine Ketones Negative, Urine Occult Blood 10 H, UrineNitrite Negative, Urine Bilirubin Negative, Urine Urobilinogen Normal, Ur Leukocyte Esterase Negative, Urine RBC 0-5 SEEN, Urine WBC 0-5 SEEN, Ur Squamous Epith Cells 0-5 SEEN, Urine Bacteria 0 SEEN,Urine Mucus 0 SEEN 09/06/24 1740 Cosigner Signature (if applicable): CC: ~ Signed [facility]05-08-2025 Radiology Diagnostic study note [facility] Imaging Services [address] [place] [address] Thyroid MR#: [id number] Acct: [id number] Name: AZALIA MATTHEW II Rep #: [id number] : 1970 M 53 From: Hoa Munoz MD PCP: Care Physician,No Primary Status: ADM IN Study:Thyroid Date of Exam: 09/06/24 Exam# [id number] Ordering Dr: Isma Silva DO PROCEDURE: ULTRASOUND THYROID N/A REASON FOR EXAM: TRACHEAL STENOSIS ON CT. ? GOITER/THYROID MASS TECHNIQUE: Real-time grayscale and color flow imaging was performed along with routine image documentation. COMPARISON: NO RELEVANT PRIOR. FINDINGS: Right thyroid lobe size: 5.1 x 2.1 x 1.6 cm Left thyroid lobe size: 4.9 x 2.0 x 1.6 cm Isthmus: 0.4 cm Background parenchymal echotexture is heterogeneous. Nodules: No nodules are identified. US/Thyroid IMPRESSION: Normal thyroid gland size. No suspicious nodules are demonstrated. No follow-up warranted at this time. Reading Location: [facility] CC: Dr. 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: Signed [facility]05-08-2025 History and physical note Author Isma Peterson [facility] Note Date/Time September 06, 2024 7:25am [facility] Medical Records Department [address] [place] [address] H&P Exam - Hospitalist 09/06/24 0409 MR#: [id number] Acct: [id number] Name: AZALIA MATTHEW II Rep #:[id number] : 1970 53 From: Isma Jauregui DO PCP: Care Physician,No Primary Status :ADM IN Location: [facility] [id number] [facility] - General General Date of Admission: 09/06/24 Date of Service: 09/06/24 Chief Complaint: SOB. HPI Narrative AZALIA MATTHEW, is a 53 M with a past medical history of tobacco abuse ~1 ppd x ~36 years; with subsequent COPD with 'blue-bloater' phenotype, super-morbid obesity;with BMI of 58.7 this admission, SINA, history of polycythemia; attributed to chronic hypoxia, chronic venous stasis with history of bilateral foot ulcers andLE cellulitis with admission here from December 22, 2023 to December 25, 2023 with subsequent discharge on oral doxycycline and with follow up treatment by the [facility] here on January 09, 2024 with noted improvement, history of appendectomy, history of cholecystectomy, history of homelessness and relativelyrecent admission here from June 13, 2024 to June 14, 2024 for treatment of viral URI with hypoxia in the setting of obesity hypoventilation syndrome andOSA complicated by ongoing tobacco abuse with COPD that was not flaring at that time who re-presents to [facility] ER complaining of shortness of breath. Mr. Matthew reports his symptoms began ~3 days prior to admission with increasing cough productive of greenish sputum and dyspnea on exertion that progressed to shortness of breath at rest. He admits to taking no maintenance medications or inhalers/nebulizers. He states his symptoms are similar to his previous COPD exacerbations with malaise and intermittent pleuritic discomfort primarily in his Left lung that is made worse with cough. He admits to chills and pleuritic chest pain with increasing wheezing. He denies associated fever, visual changes, runny nose, sore throat, palpitations, heart racing, syncope, near syncope, abdominal pain, nausea, vomiting, diarrhea, back pain, headache or rash. In the ER he was noted to have a CXR that revealed bilateral patchy increased appearance of the perihilar markings with a lower zone predominance that may represent inflammatory/infectious process with possibility of edema considered less likely and clinical correlation recommended with no pleural effusion or focal consolidation but with a continued appearance of narrowing of the mid-trachea around the level of the clavicular heads which is a similar appearance to prior studies and may represent possibility of goiter or other process with clinical correlation recommended. He was then diagnosed with suspected Pneumonia complicated by clinical evidence of AE COPD with Acute Respiratory Insufficiency compounded by mildly elevated D-dimer 0.53 present on admission and he was then admitted to the general medical floor for ongoing carefor status expected to extend beyond 2 midnights. [facility] Medical History (Updated 09/06/24 @ 05:[address] 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 Eyes: Patient denies changes in vision or discharge from eyes. ENT: Patient denies runny nose, sore throat or ear pain. Resp: Patient admits to dyspnea on exertion the progressive shortness of breath at rest with wheezing and cough productive of greenish sputum as per HPI. CV: Patient admits to pleuritic chest pain mainly over his left lower rib cage with chronic lower extremity edema. He denies palpitations or heart racing. GI: Patient denies abdominal pain, nausea, vomiting, diarrhea or constipation. : Patient denies dysuria, hematuria urinary frequency. MSK: Patient denies arthralgias or myalgias. Skin: Patient denies rash, abscess, wounds or jaundice. Psych: Patient denies symptoms of uncontrolled depression or anxiety. Neuro: Patient denies headache, paresthesias or focal neurologic deficits. Allergy: Patient denies lip swelling, tongue swelling or urticaria. Hematology: Patient denies easy bleeding or easy bruisability. Endocrinology: Patient denies polyuria, polydipsia, polyphagia or heat/cold intolerance. 14 point ROS otherwise negative except for positives noted above in HPI. Vital Signs Vital Signs Vital Signs: 09/06/24 00:23 09/06/24 00:47 09/06/24 00:53 Temperature 98 F Temperature Source Oral Pulse Rate 86 88 Respiratory Rate 26 H 20 H Respiratory Effort Blood Pressure Blood Pressure Mean Pulse Ox 92 Oxygen Delivery Method Room Air Room Air Oxygen Flow Rate (L/min) Fraction of Inspired Oxygen (FIO2) 09/06/24 00:59 09/06/24 00:59 09/06/24 01:10 Temperature Temperature Source Pulse Rate Respiratory Rate Respiratory Effort Normal Blood Pressure 141/62 H Blood Pressure Mean 88 Pulse Ox Oxygen Delivery Method Nasal Cannula Oxygen Flow Rate (L/min) 3 Fraction of Inspired Oxygen (FIO2) 09/06/24 01:19 09/06/24 01:27 09/06/24 02:00 Temperature 97.9 F 98.2 F Temperature Source Oral Temporal Pulse Rate 81 78 Respiratory Rate 25 H 16 Respiratory Effort Blood Pressure 152/91 H 98/51 L Blood Pressure Mean 111 66 Pulse Ox 91 94 Oxygen Delivery Method Nasal Cannula Nasal Cannula Nasal Cannula Oxygen Flow Rate (L/min) 3 4 Fraction of Inspired Oxygen (FIO2) 3 09/06/24 02:23 09/06/24 03:00 Temperature 98.2 F Temperature Source Oral Pulse Rate 77 75 Respiratory Rate 20 H Respiratory Effort Blood Pressure 139/75 H Blood Pressure Mean 96 Pulse Ox 96 Oxygen Delivery Method Nasal Cannula Oxygen Flow Rate (L/min) 4 Fraction of Inspired Oxygen (FIO2) Weight Weight: 432 lb 12.278 oz Body Mass Index (BMI) 58.6 Physical Exam Const alert, oriented x3 and no apparent distress Constitutional Narrative: Patient is morbidly obese and dyspneic at rest. General Appearance: cooperative HEENT normocephalic, head/scalp atraumatic, hearing grossly normal bilaterally and moist oral mucous membranes Eyes PERRL and EOMs intact bilaterally Neck no lymphadenopathy and supple Resp Resp Narrative: Diminished breath sounds throughout with scattered wheezing and rhonchi. Auscultation: rhonchi and wheezes Cardio regular rate and regular rhythm GI normal to inspection, nondistended, normoactive bowel sounds, soft to palpation,non-tender and non-distended GI Narrative: Morbidly obese. Extremity Extremity Narrative: ~1-2+ bilateral lower extremity pitting edema. Skin Skin Narrative: Patient has evidence of rash, abscess, wounds or jaundice. Neuro oriented x3, CN's II-XII intact bilaterally, moves all extremities and no focal motor deficits Sensorium / Orientation: awake, alert, oriented to person, oriented to place andoriented to time Speech: speech normal Psych affect normal Results Medical Records Data Attestation: I reviewed the patient's medical records Lab / Micro Data Attestation: I reviewed the patient's lab results. 09/06/24 00:52 09/06/24 00:52 Labs: Laboratory Results - last 24 hr 09/06/24 00:52: WBC 10.6, RBC 6.08, Hgb 17.7 H, Hct 52.6, MCV 86.5, MCH 29.1, MCHC 33.7, RDW Std Deviation 43.9, RDW Coeff of Pradeep 13.9, Plt Count 258, MPV 9.6, Immature Gran % (Auto) 0.300, Neut % (Auto) 75.4 H, Lymph % (Auto) 15.8 L, Price % (Auto) 6.6, Eos % (Auto) 1.4, Baso % (Auto) 0.5, Absolute Neuts (auto) 8.0 H, Absolute Lymphs (auto) 1.67, Nucleated RBC % 0, D-Dimer Quant (PE/DVT) 0.53 H*, Sodium 137, Potassium 4.2, Chloride 101, Carbon Dioxide 24.5, Anion Gap11, BUN 11, Creatinine 0.75, Estim Creat Clear Calc 203.83, Est GFR (MDRD) Non-Af 109, BUN/Creatinine Ratio 15.2, Glucose 113 H, Calcium 8.9, Troponin T High Sens 10, NT pro BNP II 306 09/06/24 02:48: Troponin T Hi Sens 2 Hr 9 Micro: Microbiology 09/06/24 00:45 Mucosa - Nose SARS-CoV-2, Influenza & RSV (PCR) - Final Rhythm Strip Rhythm Strip: Sinus Rhythm Rate: 78 Ectopy: None Imaging Radiology Impression Chest X-Ray 09/06/24 01:20 IMPRESSION: Bilateral patchy increased appearance of the perihilar markings with a lower zone predominance may represent inflammatory/infectious process with possibility of edema considered less likely, clinically correlate. No pleural effusion. No focal consolidation. There is a continued appearance of narrowing of the midtrachea around the level of the clavicular heads which has a similar appearance to the prior studies and may represent possibility of goiter or otherprocess, clinically correlate. Reading Location: [facility] Imaging Services [address] [place] [address] CTA Chest W/WO Contrast MR#: [id number] Acct: [id number] Name: AZALIA MATTHEW II Rep #: [id number] : 1970 M 53 From: Jas Steve MD PCP: Care Physician,No Primary Status: ADM IN Study: CTA Chest W/WO Contrast Date of Exam: 09/06/24 Exam# [id number] Ordering Dr: Isma Sheikh DO PROCEDURE: CTA CHEST W/WO CONTRAST 09/06/2024 REASON FOR EXAM: PNA SUSPECTED ON CXR PLUS ELEVATED D-DIMER. ? PE. TECHNIQUE: CTA imaging of the chest with intravenous contrast. Multiplanar and multisequence images were obtained. Coronal and sagittal MIP images CONTRAST: 100 cc Isovue 370 IV One or more dose reduction techniques were used (e.g., Automated exposure control, adjustment of the mA and/or kV according to patient size, use of iterative reconstruction technique). RADIATION DOSE SUMMARY: CTDlvol: 41.45 mGy DLP: 844.49 mGycm FINDINGS: Pulmonary venous greater than pulmonary arterial contrast density limits the evaluation for pulmonary embolism. No large central or hilar pulmonary embolism identified. The segmental and subsegmental branchesare not well evaluated without a definite filling defect identified. Thoracic aorta appears within limits. No pericardial or pleural effusion. Status post cholecystectomy. A smooth symmetric narrowing of the midtrachea without obvious mass. The thyroid appears within limits. The central airways are patent. Bilateral perihilar ground-glass opacities appears greatest right upperlobe may be inflammatory or infectious, possible viral etiology not excluded. No focal consolidation. The visualized osseous structures appear within limits. CT/CTA Chest W/WO Contrast IMPRESSION: Pulmonary venous greater than pulmonary arterial contrast density limits the evaluation for pulmonary embolism. No large central or hilar pulmonary embolism identified. The segmental and subsegmental branches are not well evaluated without a definite filling defect identified. Bilateral perihilar ground-glass opacities appears greatest right upper lobe maybe inflammatory or infectious, possible viral etiology not excluded. No focal consolidation. Reading Location: [id number] CC: Dr. Isma de Nicholas, DO; No Primary Care Physician ~ Silk Screen Printer Helper: Signed Assessment & Plan Assessment/Plan (1) Pneumonia: QUALIFIERS: Laterality: unspecified laterality Lung location: unspecified part of lung Pneumonia type: due to unspecified organism Qualified Code(s): J18.9 - Pneumonia, unspecified organism (2) Acute exacerbation of chronic obstructive pulmonary disease (COPD): (3) Tracheal stenosis: (4) Acute respiratory insufficiency: (5) Morbid obesity with BMI of 50.0-59.9, adult: (6) Obesity hypoventilation syndrome: (7) SINA (obstructive sleep apnea): (8) Tobacco abuse: (9) Elevated d-dimer: PLAN: Plan 1. Pneumonia - Admit to general medical floor. Maintain IV piperacillin- tazobactam and IV azithromycin begun in ER and await culture and sensitivity data. Check urinary antigens to Streptococcus pneumonia and Legionella. Check extended viral respiratory panel. Start acidophilus probiotic with supplementalvitamin D3, vitamin C and zinc to help boost immunity and hopefully speed recovery. Give scheduled guaifenesin twice daily. Give acetaminophen as neededfor [id number] (level 1-5/10) pain or fever. Give morphine IV as needed for severe (level 6-10/10) pain. 2. AE COPD with CXR this admission revealing narrowing of mid-trachea around the level of the clavicular heads Acute Respiratory Insufficiency complicating #1 - Continue IV methylprednisolone begun in the ER. Wean supplemental oxygen as tolerated. CTA of the chest with IV contrast ordered to further delineate etiology of tracheal narrowing and to evaluate for PE. 3. Super-morbid obesity; with BMI of 58.7 this admission plus SINA and OHS compounding #1 & #2 - Weight loss will be recommended. Continue nocturnal CPAP as previous. Check TSH. This complicates his case and may hamper recovery. 4. History of tobacco abuse ~1 ppd x ~36 years; with subsequent COPD with 'blue-bloater' phenotype adding to the medical complexity of #1 - #3 - Tobacco Cessation will be strongly encouraged with Nicotine patch offered to control cravings. 5. Elevated D-dimer of 0.53 present on admission adding to the burden of disease outlined from #1 - #4 - Check CTA of chest with IV contrast and LE Doppler to evaluate for DVT. 6. History of polycythemia; attributed to chronic hypoxia related to tobacco abuse and OHS - Noted with hemoglobin of 17.7 g deciliter present on admission (up from 14.6 on June 14, 2024). 7. Relatively recent admission here from June 13, 2024 to June 14, 2024for treatment of viral URI with hypoxia in the setting of obesity hypoventilation syndrome and SINA complicated by ongoing tobacco abuse with COPD that was not flaring at that time - Noted. 8. Chronic venous stasis with history of bilateral foot ulcers and LE cellulitis with admission here from December 22, 2023 to December 25, 2023 with subsequent discharge on oral doxycycline and with follow up treatment by the [facility] here on January 09, 2024 with noted improvement - Noted. 9. History of appendectomy - Noted for the sake of completeness. 10. History of cholecystectomy - Noted. 11. History of homelessness - Noted. 12. DVT/GI prophylaxis - Enoxaparin 40 mg sq BID. Famotidine 20 mg PO BID. Total time: Approximately (but not less than) 75 minutes. Charges/Coding Visit Charges Inpatient E&M: 72010 Init Hosp L3 09/06/24 0725 <Electronically signed by Isma Sheikh DO> Cosigner Signature (if applicable): CC: Dr. Isma Sheikh DO; No Primary Care Physician~ Signed [facility] Work Phone: 1(398) 524-159205-08-2025 History and physical note [facility] Medical Records Department [address] [place] [address] H&P Exam - Hospitalist 09/06/24 0409 MR#: [id number] Acct: [id number] Name: AZALIA MATTHEW TARI Rep #:[id number] : 1970 53 From: Isma Jauregui DO PCP: Care Physician,No Primary Status :ADM IN Location: [place] [id number] HPI - General General Date of Admission: 09/06/24 Date of Service: 09/06/24 Chief Complaint: SOB. HPI Narrative AZALIA MATTHEW, is a 53 M with a past medical history of tobacco abuse ~1 ppd x ~36 years; with subsequent COPD with 'blue-bloater' phenotype, super-morbid obesity;with BMI of 58.7 this admission, SINA, history of polycythemia; attributed to chronic hypoxia, chronic venous stasis with history of bilateral foot ulcers andLE cellulitis with admission here from December 22, 2023 to December 25, 2023 with subsequent discharge on oral doxycycline and with follow up treatment by the [facility] here on January 09, 2024 with noted improvement, history of appendectomy, history of cholecystectomy, history ofhomelessness and relativelyrecent admission here from June 13, 2024 to June 14, 2024 for treatment of viral URI with hypoxia in the setting of obesity hypoventilation syndrome andOSA complicated by ongoing tobacco abuse with COPD that was not flaring at that time who re-presents to [facility] ER complaining of shortness of breath. Mr. Matthew reports his symptoms began ~3 days prior to admission with increasing cough productive of greenish sputum and dyspnea on exertion that progressed to shortness of breath at rest. He admits totaking no maintenance medications or inhalers/nebulizers. He states his symptoms are similar to hisprevious COPD exacerbations with malaise and intermittent pleuritic discomfort primarily in his Left lung that is made worse with cough. He admits to chills and pleuritic chest pain with increasing wheezing. He denies associated fever, visual changes, runny nose, sore throat, palpitations, heart racing, syncope, near syncope, abdominal pain, nausea, vomiting, diarrhea, back pain, headache or rash. In the ER he was noted to have a CXR that revealed bilateral patchy increased appearance of the perihilar markings with a lower zone predominance that may represent inflammatory/infectious process with possibility of edema considered less likely and clinical correlation recommended with no pleuraleffusion or focal consolidation but with a continued appearance of narrowing of the mid- trachea around the level of the clavicular heads which is a similar appearance to prior studies and may represent possibility of goiter or other process with clinical correlation recommended. He was then diagnosed with suspected Pneumonia complicated by clinical evidence of AE COPD with Acute Respiratory Insuff iciency compounded by mildly elevated D-dimer 0.53 present on admission and he was then admitted tot general medical floor for ongoing carefor status expected to extend beyond 2 midnights. [facility] Medical History (Updated 09/06/24 @ 05:[address] 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 Eyes: Patient denies changes in vision or discharge from eyes. ENT: Patient denies runny nose, sore throat or ear pain. Resp: Patient admits to dyspnea on exertion the progressive shortness of breath at rest with wheezing and cough productive of greenish sputum as per HPI. CV: Patient admits to pleuritic chest pain mainly over his left lower rib cage with chronic lower extremity edema. He denies palpitations or heart racing. GI: Patient denies abdominal pain, nausea, vomiting, diarrhea or constipation. : Patient denies dysuria, hematuria urinary frequency. MSK: Patient denies arthralgias or myalgias. Skin: Patient denies rash, abscess, wounds or jaundice. Psych: Patient denies symptoms of uncontrolled depression or anxiety. Neuro: Patient denies headache, paresthesias or focal neurologic deficits. Allergy: Patient denies lip swelling, tongue swelling or urticaria. Hematology: Patient denies easy bleeding or easy bruisability. Endocrinology: Patient denies polyuria, polydipsia, polyphagia or heat/cold intolerance. 14 point ROS otherwise negative except for positives noted above in HPI. Vital Signs Vital Signs Vital Signs: 09/06/24 00:23 09/06/24 00:47 09/06/24 00:53 Temperature 98 F Temperature Source Oral Pulse Rate 86 88 Respiratory Rate 26 H 20 H Respiratory Effort Blood Pressure Blood Pressure Mean Pulse Ox 92 Oxygen Delivery Method Room Air Room Air Oxygen Flow Rate (L/min) Fraction of Inspired Oxygen (FIO2) 09/06/24 00:59 09/06/24 00:59 09/06/24 01:10 Temperature Temperature Source Pulse Rate Respiratory Rate Respiratory Effort Normal Blood Pressure 141/62 H Blood Pressure Mean 88 Pulse Ox Oxygen Delivery Method Nasal Cannula Oxygen Flow Rate (L/min) 3 Fraction of Inspired Oxygen (FIO2) 09/06/24 01:19 09/06/24 01:27 09/06/24 02:00 Temperature 97.9 F 98.2 F Temperature Source Oral Temporal Pulse Rate 81 78 Respiratory Rate 25 H 16 Respiratory Effort Blood Pressure 152/91 H 98/51 L Blood Pressure Mean 111 66 Pulse Ox 91 94 Oxygen Delivery Method Nasal Cannula Nasal Cannula Nasal Cannula Oxygen Flow Rate (L/min) 3 4 Fraction of Inspired Oxygen (FIO2) 3 09/06/24 02:23 09/06/24 03:00 Temperature 98.2 F Temperature Source Oral Pulse Rate 77 75 Respiratory Rate 20 H Respiratory Effort Blood Pressure 139/75 H Blood Pressure Mean 96 Pulse Ox 96 Oxygen Delivery Method Nasal Cannula Oxygen Flow Rate (L/min) 4 Fraction of Inspired Oxygen (FIO2) Weight Weight: 432 lb 12.278 oz Body Mass Index (BMI) 58.6 Physical Exam Const alert, oriented x3 and no apparent distress Constitutional Narrative: Patient is morbidly obese and dyspneic at rest. General Appearance: cooperative HEENT normocephalic, head/scalp atraumatic, hearing grossly normal bilaterally and moist oral mucous membranes Eyes PERRL and EOMs intact bilaterally Neck no lymphadenopathy and supple Resp Resp Narrative: Diminished breath sounds throughout with scattered wheezing and rhonchi. Auscultation: rhonchi and wheezes Cardio regular rate and regular rhythm GI normal to inspection, nondistended, normoactive bowel sounds, soft to palpation,non-tender and non-distended GI Narrative: Morbidly obese. Extremity Extremity Narrative: ~1-2+ bilateral lower extremity pitting edema. Skin Skin Narrative: Patient has evidence of rash, abscess, wounds or jaundice. Neuro oriented x3, CN's II-XII intact bilaterally, moves all extremities and no focal motor deficits Sensorium / Orientation: awake, alert, oriented to person, oriented to place andoriented to time Speech: speech normal Psych affect normal Results Medical Records Data Attestation: I reviewed the patient's medical records Lab / Micro Data Attestation: I reviewed the patient's lab results. 09/06/24 00:52 09/06/24 00:52 Labs: Laboratory Results - last 24 hr 09/06/24 00:52: WBC 10.6, RBC 6.08, Hgb 17.7 H, Hct 52.6, MCV 86.5, MCH 29.1, MCHC 33.7, RDW Std Deviation 43.9, RDW Coeff of Pradeep 13.9, Plt Count 258, MPV 9.6, Immature Gran % (Auto) 0.300, Neut % (Auto) 75.4 H, Lymph % (Auto) 15.8 L, Price % (Auto) 6.6, Eos % (Auto) 1.4, Baso % (Auto) 0.5, AbsoluteNeuts (auto) 8.0 H, Absolute Lymphs (auto) 1.67, Nucleated RBC % 0, D-Dimer Quant (PE/DVT) 0.53 H*,Sodium 137, Potassium 4.2, Chloride 101, Carbon Dioxide 24.5, Anion Gap11, BUN 11, Creatinine 0.75,Estim Creat Clear Calc 203.83, Est GFR (MDRD) Non-Af 109, BUN/Creatinine Ratio 15.2, Glucose 113 H,Calcium 8.9, Troponin T High Sens 10, NT pro BNP II 306 09/06/24 02:48: Troponin T Hi Sens 2 Hr 9 Micro: Microbiology 09/06/24 00:45 Mucosa - Nose SARS-CoV-2, Influenza & RSV (PCR) - Final Rhythm Strip Rhythm Strip: Sinus Rhythm Rate: 78 Ectopy: None Imaging Radiology Impression Chest X-Ray 09/06/24 01:20 IMPRESSION: Bilateral patchy increased appearance of the perihilar markings with a lower zone predominance may represent inflammatory/infectious process with possibility of edema considered less likely, clinically correlate. No pleural effusion. No focal consolidation. There is a continued appearance of narrowing of the midtrachea around the level of the clavicular heads which has a similar appearance to the prior studies and may represent possibility of goiter or otherprocess, clinicallycorrelate. Reading Location: [id number] Imaging Services [address] [place], [place] [address] CTA Chest W/WO Contrast MR#: [id number] Acct: [id number] Name: AZALIA MATTHEW II Rep #: [id number] : 1970 M 53 From: Jas Steve MD PCP: Care Physician,No Primary Status: ADM IN Study: CTA Chest W/WO Contrast Date of Exam: 09/06/24 Exam# [id number] Ordering Dr: Isma Sheikh DO PROCEDURE: CTA CHEST W/WO CONTRAST 09/06/2024 REASON FOR EXAM: PNA SUSPECTED ON CXR PLUS ELEVATED D-DIMER. ? PE. TECHNIQUE: CTA imaging of the chest with intravenous contrast. Multiplanar and multisequence images were obtained. Coronal and sagittal MIP images CONTRAST: 100 cc Isovue 370 IV One or more dose reduction techniques were used (e.g., Automated exposure control, adjustment of the mA and/or kV according to patient size, use of iterative reconstruction technique). RADIATION DOSE SUMMARY: CTDlvol: 41.45 mGy DLP: 844.49 mGycm FINDINGS: Pulmonary venous greater than pulmonary arterial contrast density limits the evaluation for pulmonary embolism. No large central or hilar pulmonary embolism identified. The segmental and subsegmental branchesare not well evaluated without a definite filling defect identified. Thoracic aorta appears within limits. No pericardial or pleural effusion. Status post cholecystectomy. A smooth symmetric narrowing of the midtrachea without obvious mass. The thyroid appears within limits. The central airways are patent. Bilateral perihilar ground-glass opacities appears greatest right upperlobe may be inflammatory or infectious, possible viral etiology not excluded. No focal consolidation. The visualized osseous structures appear within limits. CT/CTA Chest W/WO Contrast IMPRESSION: Pulmonary venous greater than pulmonary arterial contrast density limits the evaluation for pulmonary embolism. No large central or hilar pulmonary embolism identified. The segmental and subsegmental branches are not well evaluated without a definite filling defect identified. Bilateral perihilar ground-glass opacities appears greatest right upper lobe maybe inflammatory or infectious, possible viral etiology not excluded. No focal consolidation. Reading Location: [id number] CC: Dr. 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 Pneumonia - Admit to general medical floor. Maintain IV piperacillin- tazobactam and IV azithromycin begun in ER and await culture and sensitivity data. Check urinary antigens to Streptococcus pneumonia and Legionella. Check extended viral respiratory panel. Start acidophilus probiotic with supple mentalvitamin D3, vitamin C and zinc to help boost immunity and hopefully speed recovery. Give scheduled guaifenesin twice daily. Give acetaminophen as neededfor [id number] (level 1-5/10) pain or fever. Give morphine IV as needed for severe (level 6-10/10) pain. 2. AE COPD with CXR this admission revealing narrowing of mid-trachea around the level of the clavicular heads Acute Respiratory Insufficiency complicating #1 - Continue IV methylprednisolone begun in the ER. Wean supplemental oxygen as tolerated. CTA of the chest with IV contrast ordered to further delineate etiology of tracheal narrowing and to evaluate for PE. 3. Super-morbid obesity; with BMI of 58.7 this admission plus SINA and OHS compounding #1 & #2 -Weight loss will be recommended. Continue nocturnal CPAP as previous. Check TSH. This complicates his case and may hamper recovery. 4. History of tobacco abuse ~1 ppd x ~36 years; with subsequent COPD with 'blue- bloater' phenotype adding to the medical complexity of #1 - #3 - Tobacco Cessation will be strongly encouraged with Nicotine patch offered to control cravings. 5. Elevated D-dimer of 0.53 present on admission adding to the burden of disease outlined from #1 -#4 - Check CTA of chest with IV contrast and LE Doppler to evaluate for DVT. 6. History of polycythemia; attributed to chronic hypoxia related to tobacco abuse and OHS - Noted with hemoglobin of 17.7 g deciliter present on admission (up from 14.6 on June 14, 2024). 7. Relatively recent admission here from June 13, 2024 to June 14, 2024for treatment of viral URI with hypoxia in the setting of obesity hypoventilation syndrome and SINA complicated by ongoing tobacco abuse with COPD that was not flaring at that time - Noted. 8. Chronic venous stasis with history of bilateral foot ulcers and LE cellulitis with admission here from December 22, 2023 to December 25, 2023 with subsequent discharge on oral doxycycline and with follow up treatment by the [facility] here on January 09, 2024 with noted improvement - Noted. 9. History of appendectomy - Noted for the sake of completeness. 10. History of cholecystectomy - Noted. 11. History of homelessness - Noted. 12. DVT/GI prophylaxis - Enoxaparin 40 mg sq BID. Famotidine 20 mg PO BID. Total time: Approximately (but not less than) 75 minutes. Charges/Coding Visit Charges Inpatient E&M: 16999 Init Hosp L3 09/06/24 0725 Cosigner Signature (if applicable): CC: Dr. Isma Sheikh, DO; No Primary Care Physician~ Signed [facility]05-08-2025 Radiology Diagnostic study note [facility] Imaging Services [address] [place] [address] CTA Chest W/WO Contrast MR#: [id number] Acct: [id number] Name: AZALIA MATTHEW II Rep #: [id number] : 1970 M 53 From: Sukh Steve MD PCP: Care Physician,No Primary Status: ADM IN Study:CTA Chest W/WO Contrast Date of Exam: 09/06/24 Exam# [id number] Ordering Dr: Isma Silva DO PROCEDURE: CTA CHEST W/WO CONTRAST 09/06/2024 REASON FOR EXAM: PNA SUSPECTED ON CXR PLUS ELEVATED D-DIMER. ? PE. TECHNIQUE: CTA imaging of the chest with intravenous contrast. Multiplanar and multisequence images were obtained. Coronal and sagittal MIP images CONTRAST: 100 cc Isovue 370 IV One or more dose reduction techniques were used (e.g., Automated exposure control, adjustment of the mA and/or kV according to patient size, use of iterative reconstruction technique). RADIATION DOSE SUMMARY: CTDlvol: 41.45 mGy DLP: 844.49 mGycm FINDINGS: Pulmonary venous greater than pulmonary arterial contrast density limits the evaluation for pulmonary embolism. No large central or hilar pulmonary embolism identified. The segmental and subsegmental branchesare not well evaluated without a definite filling defect identified. Thoracic aorta appears within limits. No pericardial or pleural effusion. Status post cholecystectomy. A smooth symmetric narrowing of the midtrachea without obvious mass. The thyroid appears within limits. The central airways are patent. Bilateral perihilar ground-glass opacities appears greatest right upperlobe may be inflammatory or infectious, possible viral etiology not excluded. No focal consolidation. The visualized osseous structures appear within limits. CT/CTA Chest W/WO Contrast IMPRESSION: Pulmonary venous greater than pulmonary arterial contrast density limits the evaluation for pulmonary embolism. No large central or hilar pulmonary embolism identified. The segmental and subsegmental branches are not well evaluated without a definite filling defect identified. Bilateral perihilar ground-glass opacities appears greatest right upper lobe maybe inflammatory or infectious, possible viral etiology not excluded. No focal consolidation. Reading Location: [id number] CC: Dr. 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: Signed [facility]05-08-2025 Discharge summary Author Zachariah Lantigua [facility] Note Date/Time September 06, 2024 4:15am [facility] Medical Records Department [address] [place] [address] Emergency Department Summary 09/06/24 MR#: [id number] Acct: [id number] Name: TANYAAZALIA PÉREZ TARI Rep #:[id number] : 1970 53 From: Zachariah Lantigua MD PCP: Care Physician,No Primary Status :REG ER Location: ED HPI History of Present Illness Chief Complaint: Shortness of Breath Informant: patient and friend Narrative Narrative: 53-year-old male with a history of COPD but taking no maintenance medications orinhalers/nebulizers states he has been having trouble breathing for a while but worse in the past 3 days with increased cough and sputum production, color changed to green, no blood, chills, and some pleuritic discomfort in his left lung at times but not constantly. No other chest pain. Feeling malaised. No new GI symptoms or abdominal pain, palpitations, syncope, leg edema changes. 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 Smoking Status: Current every day smoker tobacco type: cigarettes Tobacco: How many years used: 36 alcohol intake: never substance use type: does not use ROS ROS ED Constitutional Constitutional ED: Reports chills and malaise; Denies fever(s) Eyes Eyes: Denies change in vision or diplopia ENT ENT ED: Denies rhinorrhea or sore throat Cardiovascular Cardiovascular: Reports chest pain and other Details: Chronic leg edema without changes ; Denies palpitations or syncope Respiratory/Chest Respiratory/Chest: Reports cough, dyspnea, dyspnea on exertion and sputum Gastrointestinal Gastrointestinal: Denies abdominal pain, diarrhea, nausea or vomiting Genitourinary Genitourinary ED: Denies dysuria or hematuria Musculoskeletal Musculoskeletal: Denies back pain or neck pain Integumentary Denies abscess or rash Neurologic Neurologic: Denies headache(s), paresthesias or weakness Psychiatric Psychiatric: Denies anxiety or suicidal thoughts EXAM Physical Exam Const Vital Signs: 09/06/24 00:23 09/06/24 00:47 09/06/24 00:53 Temperature 98 F Temperature Source Oral Pulse Rate 86 88 Respiratory Rate 26 H 20 H Respiratory Effort Blood Pressure Blood Pressure Mean Pulse Ox 92 Oxygen Delivery Method Room Air Room Air Oxygen Flow Rate (L/min) Fraction of Inspired Oxygen (FIO2) 09/06/24 00:59 09/06/24 00:59 09/06/24 01:10 Temperature Temperature Source Pulse Rate Respiratory Rate Respiratory Effort Normal Blood Pressure 141/62 H Blood Pressure Mean 88 Pulse Ox Oxygen Delivery Method Nasal Cannula Oxygen Flow Rate (L/min) 3 Fraction of Inspired Oxygen (FIO2) 09/06/24 01:19 09/06/24 01:27 09/06/24 02:00 Temperature 97.9 F 98.2 F Temperature Source Oral Temporal Pulse Rate 81 78 Respiratory Rate 25 H 16 Respiratory Effort Blood Pressure 152/91 H 98/51 L Blood Pressure Mean 111 66 Pulse Ox 91 94 Oxygen Delivery Method Nasal Cannula Nasal Cannula Nasal Cannula Oxygen Flow Rate (L/min) 3 4 Fraction of Inspired Oxygen (FIO2) 3 09/06/24 02:23 09/06/24 03:00 09/06/24 04:00 Temperature 98.2 F 98.7 F Temperature Source Oral Oral Pulse Rate 77 75 76 Respiratory Rate 20 H 19 H Respiratory Effort Blood Pressure 139/75 H 150/82 H Blood Pressure Mean 96 104 Pulse Ox 96 93 Oxygen Delivery Method Nasal Cannula Nasal Cannula Oxygen Flow Rate (L/min) 4 4 Fraction of Inspired Oxygen (FIO2) Positive well nourished, well developed and obese General Appearance ED: well developed and NAD Nutritional Appearance: obese HEENT Reports moist mucous membranes normocephalic and atraumatic Eyes PERRL and EOMs intact bilaterally Neck full ROM, no lymphadenopathy, supple and no meningeal signs Resp clear to auscultation bilaterally Resp Narrative: A little tachypneic no distress, conversive in full sentences Cardio regular rate and regular rhythm Cardio Narrative: Faint heart sounds, exam limited by obesity GI non-tender and non-distended GI Narrative: Morbidly obese, nontender and without pain Auscultation: normoactive bowel sounds Palpation: soft Back/Spine no CVA tenderness General Back: other FROM Extremity normal to inspection General Extremety ED: Yes edema; Negative for pulses abnormal or tenderness General Extremity: edema bilateral lower extremity Details: moderate (Appears robinson chronic stasis dermatitis); Negative for pulses abnormal Neuro oriented x3, CN's II-XII intact bilaterally and no sensory deficits noted Sensorium / Orientation: awake and alert Motor Exam: strength 5/5 throughout Psych Thought Process: normal thought process Skin no rashes or lesions noted and no wounds MDM MDM MDM Narrative Medical decision making narrative: Patient is having symptoms consistent with a COPD exacerbation. After nebulizertreatment he feels better, however his oxygen went lower, down to 84% on room air and he is not on oxygen at home. Put him on nasal cannula which kept him inthe low 90s. Two-view chest x-ray on my interpretation shows possibility of bilateral pneumonia. Cardiac workup unremarkable. He is amenable to staying [facility]. Empiric antibiotics were started and I added a proBNP because of his diffuse leg edema bilaterally and a D-dimer. He is 53 and his D-dimer came back at 0.53. Technically the cutoff would be 0.52 for him when corrected for his age, however it is also noted that in 2 months he is going to be 54. He is feeling better, his symptoms are that of infection/COPD, so I think this is sensitive enough to rule out PE in context of his clinical symptoms. Given his hypoxemia, will admit. Solu-Medrol, Rocephin, Zithromax started. His proBNP came back within normal limits for his age. Lab Data Attestation: I reviewed the patient's lab results. Labs: Laboratory Results - last 24 hr 09/06/24 09/06/24 00:52 02:48 WBC 10.6 RBC 6.08 Hgb 17.7 H Hct 52.6 MCV 86.5 MCH 29.1 MCHC 33.7 RDW Std Deviation 43.9 RDW Coeff of Pradeep 13.9 Plt Count 258 MPV 9.6 Immature Gran % (Auto) 0.300 Neut % (Auto) 75.4 H Lymph % (Auto) 15.8 L Price % (Auto) 6.6 Eos % (Auto) 1.4 Baso % (Auto) 0.5 Absolute Neuts (auto) 8.0 H Absolute Lymphs (auto) 1.67 Nucleated RBC % 0 D-Dimer Quant (PE/DVT) 0.53 H* Sodium 137 Potassium 4.2 Chloride 101 Carbon Dioxide 24.5 Anion Gap 11 BUN 11 Creatinine 0.75 Estim Creat Clear Calc 203.83 Est GFR (MDRD) Non-Af 109 BUN/Creatinine Ratio 15.2 Glucose 113 H Calcium 8.9 Troponin T High Sens 10 Troponin T Hi Sens 2 Hr 9 NT pro BNP II 306 Radiography Diagnostic Testing: Clinical Impression(s) from Imaging Studies Chest X-Ray 09/06/24 01:20 IMPRESSION: Bilateral patchy increased appearance of the perihilar markings with a lower zone predominance may represent inflammatory/infectious process with possibility of edema considered less likely, clinically correlate. No pleural effusion. No focal consolidation. There is a continued appearance of narrowing of the midtrachea around the level of the clavicular heads which has a similar appearance to the prior studies and may represent possibility of goiter or otherprocess, clinically correlate. Reading Location: [facility] Rhythm Strip Rhythm Strip: Sinus Rhythm Rate: 78 Ectopy: None EKG Initial EKG: Attestation: I personally reviewed and interpreted this EKG as follows: Interpretation: Sinus Rhythm and No Acute Injury Pattern Comments: Nml axis & intervals; nml EKG Management Discussion w/another healthcare provider: Hospitalist Discharge Plan Dx/Rx/DC Orders Clinical Impression: Hypoxemia, Acute exacerbation of chronic obstructive pulmonary disease (COPD), Pneumonia Disposition Disposition: Acute Care Hospital [facility] What to do if you have Problems For any increased pain, shortness of breath, bleeding, nausea or vomiting, chestpain, or any unexpected problems, contact your Primary Care Provider. Call [facility] ([phone]) or report to the closest Emergency Room. Call 911 if necessary. 09/06/24414 <Electronically signed by Zachariah Lantigua MD> Cosigner Signature (if applicable): CC: No Primary Care Physician ~ Signed [facility] Work Phone: [phone]) 977-395505-08-2025 Discharge summary [facility] Medical Records Department [address] [place] [address] Emergency Department Summary 09/06/24 MR#: [id number] Acct: [id number] Name: AZALIA MATTHEW II Rep #:[id number] : 1970 53 From: Zachariah Lantigua MD PCP: Care Physician,No Primary Status :REG ER Location: ED HPI History of Present Illness Chief Complaint: Shortness of Breath Informant: patient and friend Narrative Narrative: 53-year-old male with a history of COPD but taking no maintenance medications orinhalers/nebulizersstates he has been having trouble breathing for a while but worse in the past 3 days with increased cough and sputum production, color changed to green, no blood, chills, and some pleuritic discomfort in his left lung at times but not constantly. No other chest pain. Feeling malaised. No new GI symptoms or abdominal pain, palpitations, syncope, leg edema changes. 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 Smoking Status: Current every day smoker tobacco type: cigarettes Tobacco: How many years used: 36 alcohol intake: never substance use type: does not use ROS ROS ED Constitutional Constitutional ED: Reports chills and malaise; Denies fever(s) Eyes Eyes: Denies change in vision or diplopia ENT ENT ED: Denies rhinorrhea or sore throat Cardiovascular Cardiovascular: Reports chest pain and other Details: Chronic leg edema without changes ; Denies palpitations or syncope Respiratory/Chest Respiratory/Chest: Reports cough, dyspnea, dyspnea on exertion and sputum Gastrointestinal Gastrointestinal: Denies abdominal pain, diarrhea, nausea or vomiting Genitourinary Genitourinary ED: Denies dysuria or hematuria Musculoskeletal Musculoskeletal: Denies back pain or neck pain Integumentary Denies abscess or rash Neurologic Neurologic: Denies headache(s), paresthesias or weakness Psychiatric Psychiatric: Denies anxiety or suicidal thoughts EXAM Physical Exam Const Vital Signs: 09/06/24 00:23 09/06/24 00:47 09/06/24 00:53 Temperature 98 F Temperature Source Oral Pulse Rate 86 88 Respiratory Rate 26 H 20 H Respiratory Effort Blood Pressure Blood Pressure Mean Pulse Ox 92 Oxygen Delivery Method Room Air Room Air Oxygen Flow Rate (L/min) Fraction of Inspired Oxygen (FIO2) 09/06/24 00:59 09/06/24 00:59 09/06/24 01:10 Temperature Temperature Source Pulse Rate Respiratory Rate Respiratory Effort Normal Blood Pressure 141/62 H Blood Pressure Mean 88 Pulse Ox Oxygen Delivery Method Nasal Cannula Oxygen Flow Rate (L/min) 3 Fraction of Inspired Oxygen (FIO2) 09/06/24 01:19 09/06/24 01:27 09/06/24 02:00 Temperature 97.9 F 98.2 F Temperature Source Oral Temporal Pulse Rate 81 78 Respiratory Rate 25 H 16 Respiratory Effort Blood Pressure 152/91 H 98/51 L Blood Pressure Mean 111 66 Pulse Ox 91 94 Oxygen Delivery Method Nasal Cannula Nasal Cannula Nasal Cannula Oxygen Flow Rate (L/min) 3 4 Fraction of Inspired Oxygen (FIO2) 3 09/06/24 02:23 09/06/24 03:00 09/06/24 04:00 Temperature 98.2 F 98.7 F Temperature Source Oral Oral Pulse Rate 77 75 76 Respiratory Rate 20 H 19 H Respiratory Effort Blood Pressure 139/75 H 150/82 H Blood Pressure Mean 96 104 Pulse Ox 96 93 Oxygen Delivery Method Nasal Cannula Nasal Cannula Oxygen Flow Rate (L/min) 4 4 Fraction of Inspired Oxygen (FIO2) Positive well nourished, well developed and obese General Appearance ED: well developed and NAD Nutritional Appearance: obese HEENT Reports moist mucous membranes normocephalic and atraumatic Eyes PERRL and EOMs intact bilaterally Neck full ROM, no lymphadenopathy, supple and no meningeal signs Resp clear to auscultation bilaterally Resp Narrative: A little tachypneic no distress, conversive in full sentences Cardio regular rate and regular rhythm Cardio Narrative: Faint heart sounds, exam limited by obesity GI non-tender and non-distended GI Narrative: Morbidly obese, nontender and without pain Auscultation: normoactive bowel sounds Palpation: soft Back/Spine no CVA tenderness General Back: other FROM Extremity normal to inspection General Extremety ED: Yes edema; Negative for pulses abnormal or tenderness General Extremity: edema bilateral lower extremity Details: moderate (Appears robinson chronic stasis dermatitis); Negative for pulses abnormal Neuro oriented x3, CN's II-XII intact bilaterally and no sensory deficits noted Sensorium / Orientation: awake and alert Motor Exam: strength 5/5 throughout Psych Thought Process: normal thought process Skin no rashes or lesions noted and no wounds MDM MDM MDM Narrative Medical decision making narrative: Patient is having symptoms consistent with a COPD exacerbation. After nebulizertreatment he feels better, however his oxygen went lower, down to 84% on room air and he is not on oxygen at home. Put him on nasal cannula which kept him inthe low 90s. Two-view chest x-ray on my interpretation shows possibility of bilateral pneumonia. Cardiac workup unremarkable. He is amenable to staying [facility]. Empiric antibiotics were started and I added a proBNP because of his diffuse leg edema bilaterally and a D-dimer. He is 53 and his D-dimer came back at 0.53. Technically the cutoff would be 0.52 for him when corrected for his age, however it is also noted that in 2 months he is going to be 54. He is feeling better, his symptoms are that of infection/COPD, so I think this is sensitive enough to rule out PE in context of his clinical symptoms. Given his hypoxemia, will admit. Solu-Medrol, Rocephin, Zithromax started. His proBNP came back within normal limits for his age. Lab Data Attestation: I reviewed the patient's lab results. Labs: Laboratory Results - last 24 hr 09/06/24 09/06/24 00:52 02:48 WBC 10.6 RBC 6.08 Hgb 17.7 H Hct 52.6 MCV 86.5 MCH 29.1 MCHC 33.7 RDW Std Deviation 43.9 RDW Coeff of Pradeep 13.9 Plt Count 258 MPV 9.6 Immature Gran % (Auto) 0.300 Neut % (Auto) 75.4 H Lymph % (Auto) 15.8 L Price % (Auto) 6.6 Eos % (Auto) 1.4 Baso % (Auto) 0.5 Absolute Neuts (auto) 8.0 H Absolute Lymphs (auto) 1.67 Nucleated RBC % 0 D-Dimer Quant (PE/DVT) 0.53 H* Sodium 137 Potassium 4.2 Chloride 101 Carbon Dioxide 24.5 Anion Gap 11 BUN 11 Creatinine 0.75 Estim Creat Clear Calc 203.83 Est GFR (MDRD) Non-Af 109 BUN/Creatinine Ratio 15.2 Glucose 113 H Calcium 8.9 Troponin T High Sens 10 Troponin T Hi Sens 2 Hr 9 NT pro BNP II 306 Radiography Diagnostic Testing: Clinical Impression(s) from Imaging Studies Chest X-Ray 09/06/24 01:20 IMPRESSION: Bilateral patchy increased appearance of the perihilar markings with a lower zone predominance may represent inflammatory/infectious process with possibility of edema considered less likely, clinically correlate. No pleural effusion. No focal consolidation. There is a continued appearance of narrowing of the midtrachea around the level of the clavicular heads which has a similar appearance to the prior studies and may represent possibility of goiter or otherprocess, clinicallycorrelate. Reading Location: [facility] Rhythm Strip Rhythm Strip: Sinus Rhythm Rate: 78 Ectopy: None EKG Initial EKG: Attestation: I personally reviewed and interpreted this EKG as follows: Interpretation: Sinus Rhythm and No Acute Injury Pattern Comments: Nml axis & intervals; nml EKG Management Discussion w/another healthcare provider: Hospitalist Discharge Plan Dx/Rx/DC Orders Clinical Impression: Hypoxemia, Acute exacerbation of chronic obstructive pulmonary disease (COPD), Pneumonia Disposition Disposition: Acute Care Hospital [facility] What to do if you have Problems For any increased pain, shortness of breath, bleeding, nausea or vomiting, chestpain, or any unexpected problems, contact your Primary Care Provider. Call [facility] ([phone]) or report tothe closest Emergency Room. Call 911 if necessary. 09/06/24 044 Cosigner Signature (if applicable): CC: No Primary Care Physician ~ Signed [facility]05-08-2025 Radiology Diagnostic study note [facility] Imaging Services [address] [place] [address] Chest PA and Lateral MR#: [id number] Acct: [id number] Name: AZALIA MATTHEW II Rep #: [id number] : 1970 M 53 From: Sukh Steve MD PCP: Care Physician,No Primary Status: REG ER Study:Chest PA and Lateral Date of Exam: 09/06/24 Exam# [id number] Ordering Dr: Rosalio Lantigua MD PROCEDURE: CHEST PA AND LATERAL 09/06/2024 REASON FOR EXAM: COUGH/SOB TECHNIQUE: Frontal and lateral views of the chest. COMPARISON: 06/13/2024 FINDINGS: Bilateral patchy increased appearance of the perihilar markings with a lower zone predominance may represent inflammatory/infectious process with possibility of edema considered less likely, clinically correlate. No pleural effusion. No focal consolidation. The cardiac and mediastinal contours appear within limits. There is a continued appearance of narrowing of the midtrachea around the level of the clavicular heads which has a similar appearance to the priorstudies and may represent possibility of goiter or other process, clinically correlate. The visualized osseous structures appear within limits. RAD/Chest PA and Lateral IMPRESSION: Bilateral patchy increased appearance of the perihilar markings with a lower zone predominance may represent inflammatory/infectious process with possibility of edema considered less likely, clinically correlate. No pleural effusion. No focal consolidation. There is a continued appearance of narrowing of the midtrachea around the level of the clavicular heads which has a similar appearance to the prior studies and may represent possibility of goiter or otherprocess, clinicallycorrelate. Reading Location: [id number] CC: Dr. Zachariah Lantigua MD; No Primary Care Physician ~ Silk Screen Printer Helper: Signed [facility]02-13-2025 [facility] Medical Records Department [address] [place] [address] Discharge Summary 06/14/24 1403 MR#: [id number] Acct: [id number] Name: AZALIA MATTHEW II Rep #: [id number] : 1970 53 From: Ferny Coats DO PCP: Care Physician,No Primary Status:ADM JESSI Location: [place] [address] Providers Date of Admission: 06/14/24 Primary Care Physician: No Primary Care Phys Reason For Visit: HYPOXIA DUE TO POSSIBLE VIRAL URI AND OHS WITH SINA Diagnosis Discharge Diagnosis (1) Viral URI with cough: Status: Acute Code(s): J06.9 - Acute upper respiratory infection, unspecified (2) Morbid obesity: Status: Acute Code(s): E66.01 - Morbid (severe) obesity due to excess calories (3) SINA (obstructive sleep apnea): Status: Acute Code(s): G47.33 - Obstructive sleep apnea (adult) (pediatric) (4) COPD (chronic obstructive pulmonary disease): Status: Chronic Code(s): J44.9 - Chronic obstructive pulmonary disease, unspecified Qualifiers: COPD type: unspecified COPD Qualified Code(s): J44.9 - Chronic obstructive pulmonary disease, unspecified (5) Tobacco abuse: Status: Acute Code(s): Z72.0 - Tobacco use Plan Viral URI * COVID/Influenza/RSV negative. Acute hypoxia * 2/2 unspecified viral illness compounded by COPD, SINA, [facility] * wean oxygen as tolerated * requires 2 liters oxygen with activity. * followup with pulmonary for SINA mgmt. Chronic conditions: * obesity class III: complicates care and recovery * polycythemia DVT prophylaxis - Lovenox 40 mg sq BID Medications at Discharge Home Medications NK 06/13/24 Hospital Course Operations None Procedures None Weight / BMI Weight Weight: 227.25 kg Body Mass Index (BMI) 67.8 ABG / Lab / Microbiology Data 06/14/24 05:37 06/14/24 05:37 Laboratory: Laboratory Results - last 24 hr 06/13/24 21:20: WBC Cancelled, Corrected WBC Cancelled, RBC Cancelled, Hgb Cancelled, Hct Cancelled, MCV Cancelled, MCH Cancelled, MCHC Cancelled, RDW Std Deviation Cancelled, RDW Coeff of Pradeep Cancelled, Plt Count Cancelled, MPV Cancelled, Immature Gran % (Auto) Cancelled, Neut % (Auto) Cancelled, Lymph % (Auto) Cancelled, Price % (Auto) Cancelled, Eos % (Auto) Cancelled, Baso % (Auto) Cancelled, Absolute Neuts (auto) Cancelled, Absolute Lymphs (auto) Cancelled, Total Counted Cancelled, Neutrophils % (Manual) Cancelled, Band Neutrophils % Cancelled, Lymphocytes % (Manual) Cancelled, Monocytes % (Manual) Cancelled, Eosinophils % (Manual) Cancelled, Basophils % (Manual) Cancelled, Metamyelocytes % Cancelled, Myelocytes % Cancelled, Promyelocytes % Cancelled, Blast Cells % Cancelled, Plasma Cell % (Manual) Cancelled, Other Cells % Cancelled, Nucleated RBC % Cancelled, Nucleated RBCs/100 WBC Cancelled, Differential Comment Cancelled, Diff Path Review Cancelled, Hypersegmented Neuts Cancelled, Atypical Lymphocytes Cancelled, Reactive Lymphocytes Cancelled, Smudge Cells Cancelled, Toxic Granulation Cancelled, Toxic Vacuolation Cancelled, Dohle Bodies Cancelled, Cierra Rods Cancelled, Platelet Estimate Cancelled, Plt Morphology Comment Cancelled, RBC Morphology Cancelled 06/13/24 21:20: RBC Morphology Cancelled, Polychromasia Cancelled, Hypochromasia Cancelled, Basophilic Stippling Cancelled, Anisocytosis Cancelled, Microcytosis Cancelled, Macrocytosis Cancelled, Spherocytes Cancelled, Sickle Cells Cancelled, Target Cells Cancelled, Tear Drop Cells Cancelled, Ovalocytes Cancelled, Stomatocytes Cancelled, [place] Bodies Cancelled, Agency Cells Cancelled, Bite Cells Cancelled, Crenated Cell Cancelled, Acanthocytes (Spur) Cancelled, Rouleaux Cancelled, Schistocytes Cancelled, Sodium 136, Potassium 3.9, Chloride 104, Carbon Dioxide 26.0, Anion Gap 6, BUN 9, Creatinine 0.83, Estim Creat Clear Calc 212.46, Est GFR (MDRD) Af Amer 125, Est GFR (MDRD) Non-Af 103, BUN/Creatinine Ratio 10.8, Glucose 113 H, Calcium 8.6, Troponin I High Sens 12, B-Natriuretic Peptide 29.4 06/13/24 22:30: WBC 9.7, RBC 5.30, Hgb 15.3, Hct 47.6, MCV 89.8, MCH 28.9, MCHC 32.1, RDW Std Deviation 47.6 H, RDW Coeff of Pradeep 14.6, Plt Count 231, MPV 9.9, Immature Gran % (Auto) 0.300, Neut % (Auto) 64.6, Lymph % (Auto) 25.3, Price % (Auto) 7.5, Eos % (Auto) 2.0, Baso % (Auto) 0.3, Absolute Neuts (auto) 6.3, Absolute Lymphs (auto) 2.46, Nucleated RBC % 0 06/14/24 05:37: WBC 8.1, RBC 5.04, Hgb 14.6, Hct 46.2, MCV 91.7, MCH 29.0, MCHC 31.6 L, RDW Std Deviation 50.0 H, RDW Coeff of Pradeep 15.0 H, Plt Count 239, MPV 10.1, Immature Gran % (Auto) 0.200, Neut % (Auto) 64.1, Lymph % (Auto) 24.4, Price % (Auto) 8.1, Eos % (Auto) 2.6, Baso % (Auto) 0.6, Absolute Neuts (auto) 5.2, Absolute Lymphs (auto) 1.98, Nucleated RBC % 0, Sodium 139, Potassium 3.4 L, Chloride 105, Carbon Dioxide 31.0, Anion Gap 3 L, BUN 8, Creatinine 0.72, Estim Creat Clear Calc 233.34, Est GFR (MDRD) Af Amer (more content not included)...[facility]02-13-2025 Evaluation note* Diagnosis Onset Date Resolution Status Admit Date SINA (obstructive sleep apnea) acute June 14, 2024 12:28am Tobacco abuse acute June 142024 12:28am Viral URI with cough acute Febr uary 2024 12:28am COPD (chronic obstructive pulmonary disease) inactive June 12:28am Morbid obesity inactive June 022024 12:28am Acute respiratory insufficiency acut e September 06, 2024 4:44am Elevated d-dimer acute September 06, 2024 4:44am Morbid obesity with BMI of 50.0-59.9, adult acute September 06, 2024 4 :44am Obesity hypoventilation syndrome acute September 06, 2024 4: 44am SIAN (obstructive sleep apnea) acute September 06, 2024 4:44am Pneumonia acute September 06, 2024 4:44am Tobacco abuse acute September 06 4:44am Acute exacerbation of chroni c obstructive pulmonary disease (COPD) chronic September 06, 2024 4: 44am [facility] Work Phone: 1(516) 889-270902-13-2025 Evaluation note* Diagnosis Onset Date Resolution Status Admit Date SINA (obstructive sleep apnea) acute June 14, 2024 12:28am Tobacco abuse acute June 142024 12:28am Viral URI with cough acute Febr uary 2024 12:28am COPD (chronic obstructive pulmonary disease) inactive June 12:28am Morbid obesity inactive June 022024 12:28am Acute respiratory insufficiency acut e September 06, 2024 4:44am Elevated d-dimer acute September 06, 2024 4:44am Morbid obesity with BMI of 50.0-59.9, adult acute September 06, 2024 4 :44am Obesity hypoventilation syndrome acute September 06, 2024 4: 44am SINA (obstructive sleep apnea) acute September 06, 2024 4:44am Pneumonia acute September 06, 2024 4:44am Tobacco abuse acute September 06 4:44am Tracheal stenosis acute August 4:44am Acute exacerbation of chroni c obstructive pulmonary disease (COPD) chronic September 06, 2024 4: 44am [facility] Work Phone: 1(947) 244-270308-25-2024 [facility] Medical Records Department [address] [place] [address] Discharge Summary 12/25/23 0913 MR#: [id number] Acct: [id number] Name: AZALIA MATTHEW II Rep #: [id number] : 1970 53 From: Isma Parkinson MD PCP: Care Physician,No Primary Status:ADM IN Location: [place] [address] Providers Date of Admission: 12/22/23 Date of Discharge: 12/25/23 Primary Care Physician: No Primary Care Phys Consultations 12/23/23 00:33 Consult: Onc/Wound/concrete spreader Routine Comment: Reason For Visit: CELLULITIS/EDEMA Diagnosis Discharge Diagnosis (1) Cellulitis: Status: Acute Code(s): L03.90 - Cellulitis, unspecified (2) Edema: Status: Acute Code(s): R60.9 - Edema, unspecified (3) Metabolic alkalosis: Status: Acute Code(s): E87.3 - Alkalosis (4) Erythrocytosis: Status: Acute Code(s): D75.1 - Secondary polycythemia Plan Patient is a 53-year-old gentleman with chronic lower extremity wounds presented to the emergency department with increasing redness and pain 1. Bilateral lower extremity wounds with cellulitis ??? Patient has been admitted to regular nursing floor started on broad-spectrum antibiotic therapy with vancomycin and Zosyn. MRSA wound PCR was ordered with consultation placed to wound care nurse ??? 12/24/2023;Patient seen much more interactive compared to previous day. Patient wound PCR came back positive for Staph aureus cultures however still pending ??? 12/25/2023; final cultures reported as no growth plan is for patient to be discharged home. Patient was discharged home with doxycycline. Instructions were written for patient to follow-up on the viral assessment clinic as well as the wound care center 2. Bilateral chronic venous stasis ??? Patient seen in consultation by wound care. Patient may need compression stockings as outpatient 3. Suspected congestive heart failure with preserved ejection fraction ??? Patient placed on diuretic therapy initiated strict input and output Daily weight as well as echo ordered for EF assessment ??? 2D echo demonstrated ejection fraction of 65% 4. Class III obesity with BMI of 65 ??? Complicating care weight loss advised 5. Tobacco dependence ??? Counseled on cessation, offered nicotine patch for tobacco cravings 6. Polycythemia ??? Suspected to be secondary to chronic hypoxia 7. Suspected sleep apnea ??? Patient informed and advised to follow-up with primary care provider for sleep study as outpatient 8. Homelessness ??? Impacting patient's care patient apparently lives in his truck 9. DVT prophylaxis ??? On enoxaparin Time spent in the patient's overall evaluation,decision-making process, review of diagnostic data, adjustment of management, discussion with other providers, nursing nursing and ancillary staff involved in patient's care documentation, 38 minutes Medications at Discharge Home Medications acetaminophen 325 mg tablet 650 mg (2 x 325 mg) PO Q6H PRN PRN Pain 1-10 Or Fever >100.7 #0 tabs 12/25/23 doxycycline hyclate 100 mg tablet 100 mg PO BID #14 tabs 12/25/23 furosemide 40 mg tablet (Lasix) 40 mg PO DAILY #60 tabs 12/25/23 Physical Exam Narrative GENERAL: cooperative HEENT: Atraumatic; normocephalic EYES; Anicteric, Normal Conjunctiva NECK; supple, normal thyroid, RESPIRATORY: Diminished to auscultation CARDIOVASCULAR: Regular S1 S2, GI: soft, normoactive bowel sounds, : No Renal angle tenderness; EXTREMITIES: Bilateral stasis dermatitis; wrapped MUSCULOSKELETAL: no muscle wasting NEURO: Awake; no lateralizing signs. SKIN: No Rash PSYCH; Flat affect Weight / BMI Weight Weight: 225.4 kg Body Mass Index (BMI) 67.3 ABG / Lab / Microbiology Data 12/25/23 06:13 12/25/23 06:13 Laboratory: Laboratory Results - last 24 hr 12/25/23 06:13: WBC 6.4, RBC 5.69, Hgb 16.2, Hct 51.2, MCV 90.0, MCH 28.5, MCHC 31.6 L, RDW Std Deviation 46.6 H, RDW Coeff of Pradeep 14.2, Plt Count 271, MPV 9.4, Immature Gran % (Auto) 0.200, Neut % (Auto) 55.2, Lymph % (Auto) 31.7, Price % (Auto) 8.0, Eos % (Auto) 4.1, Baso % (Auto) 0.8, Absolute Neuts (auto) 3.6, Absolute Lymphs (auto) 2.03, Nucleated RBC % 0, Sodium 137, Potassium 3.8, Chloride 98, Carbon Dioxide 34.0 H, Anion Gap 5, BUN 17, Creatinine 0.78, Estim Creat Clear Calc 214.23, Est GFR (MDRD) Af Amer 135, Est GFR (MDRD) Non-Af 112, BUN/Creatinine Ratio 21.9 H, Glucose 116 H, Calcium 9.0 Microbiology: Microbiology 12/23/23 01:55 Skin - Leg Gram Stain - Final 12/23/23 01:55 Skin - Leg Wound Culture - Preliminary Mixed Gram Positive Organisms 12/22/23 22:45 Urine, Clean Catch Urine Culture - Final Mixed Gram Positive Organisms 12/23/23 01:55 Wound - Leg Skin and Soft Tissue MRSA/MSSA (PCR - Final Staphylococcus aureus D/C Instructions Discharge Diet: No restrictions Discharge Activity: (more content not included)...[facility] 11-26-2023 Nurse Note* Nursing - Yarely Arana LPN - 11/26/2023 12:27 PM EDT Discharge instructions read to patient at this time, verbalizes understanding. IV and tele removed.All belongings accounted for. Awaiting transportation. Wound supplies gathered for patient to take home. All needs met at this time. [facility]07-27-2024 Miscellaneous Notes* Nursing - Yarely Arana LPN - 11/26/2023 12:27 PM EDT Discharge instructions read to patient at this time, verbalizes understanding. IV and tele removed.All belongings accounted for. Awaiting transportation. Wound supplies gathered for patient to take home. All needs met at this time. * Nursing - Emma Larkin LPN - 11/25/2023 6:48 PM EDT Patient resting in bed. Bilateral dressing changes changed per orders. Vitals stable. No other needs at this time. Call light in reach. * D/C Planning - Alannah Crane RN - 11/25/2023 11:18 AM EDT Per rounds patient has vascular consult based on test results of yesterday. Patient will need a PCPor to go to [facility] for follow up labs after discharge. Discharge date to be determined after vascularsees the patient. 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 Oxygen being weaned and downto 1L as of rounds. CM following. * Nursing - Lore Walter RN - 11/24/2023 6:34 AM EDT Patient has rested at intervals this shift. O2 applied at 2L for desats to 83 while sleeping. Sats maintained on 2L. Dressing change to BLE per orders. PRN oxycodone effective for pain. Lovenox VTE. Continent to BSC. Call light in easy reach, able to verbalize needs. * Nursing - Lore Walter RN - 11/23/2023 9:35 PM EDT Dressing change attempted as ordered. Patient complains of 10/10 burning pain to BLE with cleansingof BLE with soap and water and application of zinc strips. Dr. Denney notified and orders received for one time dose of oxycodone * ET Notes - Lianne Mendenhall RN - 11/23/2023 3:03 PM EDT Images from the original note were not included. 11/23/23 1400 Wound 11/22/23 Pretibial Distal;Right Wound Occurrence Date : 11/22/23 Present on Original Admission: Yes Location: Pretibial Wound Location Orientation: Distal;Right Wound Image Site Assessment/Wound Bed Fragile;Full thickness;Red;Slough (Wound base primarily moist red, scant amount yellow slough) Michaela-Wound Assessment [place];Dry;Edematous;Fragile (Periwound tissue dusky red/burgundy, edematous, peeling scale like tissue.) Margins Attached edges;Dark edges;Defined edges;Irregular shaped Wound Length (cm) 6.1 cm Wound Width (cm) 5 cm Wound Depth (cm) 0.1 cm Wound Surface Area (cm^2) 30.5 cm^2 Wound Volume (cm^3) 3.05 cm^3 Dressing Status N/A open to air;Changed (Rec Aquacel ag to wound, unna zinc strips loosely wrapped from ankle to knee followed by kerlix.) Wound Care Cleansed with Normal Saline Drainage Amount Small Drainage Description Yellow Treatment/Interventions Cleansed;Elevate heels;Site care Closure Not approximated Wound 11/22/23 Pretibial Distal;Left Wound Occurrence Date : 11/22/23 Present on Original Admission: Yes Location: Pretibial Wound Location Orientation: Distal;Left Wound Image Site Assessment/Wound Bed Fragile;Full thickness;Red;Slough;Yellow (Base 50% moist red, 50% adherent yellow slough) Michaela-Wound Assessment Burgundy;Dry;Edematous;Fragile (Tissue dusky red/burgundy discolored, edematous, peeling scale like tissue) Margins Attached edges;Dark edges;Defined edges;Irregular shaped Wound Length (cm) 4.5 cm Wound Width (cm) 5 cm Can you measure the wound depth? No - Unable to determine depth Wound Surface Area (cm^2) 22.5 cm^2 Dressing Status N/A open to air;Changed (Rec Aquacel ag to wound, unna zinc strips loosely wrapped from ankle to knee followed by kerlix) Wound Care Cleansed with Normal Saline Drainage Amount Moderate Drainage Description Yellow;Foul Purulent Treatment/Interventions Cleansed;Elevate heels;Site care Closure Not approximated ET Note: Received consult regarding Non-healing wound. Patient admitted due to Heart Failure, chartreviewed. 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 Patient has not seen a Drywall Taper or had any venous/arterial testing. Patient seen in room, see above LDA's for wound images, measurements, anddescriptions. Patient bilateral lower legs are edematous, dusky red/burgundy discoloration noted primarily at the ankle to lower calf. Tissue with brown, dry discolored scale like appearance. Scattered dry red scab covered wounds noted primarily to the left lower leg. Bilateral feet noted to have thick, dry cracking tissue as well. Recommend Aquacel ag to the open wounds on the bilateral lower legs to aid in drainage absorption, provide antimicrobial properties, and aid in pain reduction with dressing changes. Over this recommend Unna zinc strips loosely wrapped from ankle to knee followed bykerlix. Zinc will aid in drying seeping tissue and will provide tissue comfort and relief from itching. Am concerned with patient bilateral lower leg edema, wounds. Patient will likely require compression however, do NOT recommend at this time given CHF. Also recommend Dermagran B to the bilateral feet to aid in providing moisture and aid in healing cracked tissue. Recommend Podiatry consult to fu rther assess the bilateral lower legs and for continued care after discharge. Attempted to call physician, unable to leave message. Will pend order for wound care, discussed with primary RN. Thank you for the consult. * D/C Planning - Abbey Vital Social Worker - 11/23/2023 2:48 PM EDT CM Initial Discharge Planning Azalia Beto Matthew 1970 Met with Azalia Matthew at Bedside. 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 Comes home to visit his aunt. 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 uses a cane. Denies agency involvement. Has no PCP. [facility]. Denies all CM needs. DCP home with self care. Initial Discharge Planning Reason for Referral: Routine Discharge Plan Obtained Information From: Patient, Chart Family contact name: Juliana Matthew Family Contact Number: [phone] Living Arrangements: (semi truck) Capacity for Self-Care of ADLs: Independent Are family members/care delivery providers able to provide care necessary upon discharge without environmental modification: No New functional deficits: Unable to assess Physical Therapy Screening: Unable to assess Occupational therapy screening: Unable to assess Speech therapy screening: Unable to assess Home Environment: Patient's home is Single Level Is patient diabetic?: No Agency Involvement: None Does Patient Currently Use DME: Yes DME Currently used by patient in home: Cane Have you served in armed services: No Who will provide transportation?: Other, Friend Barriers to Discharge: None Discharge Plans Complete: Yes Discharge Planning Needs Pre-cert started: Not applicable Pre-cert complete: Not applicable Anticipated Discharge Plan: Home or Self Care Med Outreach: No Med Precert needed: No Home Care Services: (declined need) Mode of Transportation: Car Barriers to Discharge: None Discharge plan developed in collaboration with: Patient, Attempted with Family/Caregiver Initial Discharge plan mutually acceptable to patient/family/field nurse case manager?: Yes % Social Rodrigo Ohara The patient has the right to participate in the development and implementation of his plan of care.The patient or his territory service representative (as allowed under State law) has the right to make informed decisions regarding his discharge plan. The patient's right includes being involved in care planning and treatment. * Rehab Therapies - Jerel [id number], CYRUS Russell - 11/23/2023 11:14 AM EDT Images from the original note were not included. [facility] OT Initial Evaluation Name: Azalia Matthew Date of : 1970 Admission Date: 11/22/2023 OT Recommendations Recommendations/Continuum of Care: No further acute therapy needed Feeding Level of Assistance: Independent Grooming Level of Assistance: Independent UE Bathing Level of Assistance: Independent LE Bathing Level of Assistance: Modified independent UE Dressing Level of Assistance: Independent LE Dressing Level of Assistance: Modified independent Toileting Level of Assistance: Modified independent Overall Cognitive Status: A&O X 4 Barriers to discharge: None AM-PAC Raw Score: 24 OT Assessment Assessment Prognosis: Good Problem List: Pain limiting mobility Barriers to discharge: None Safety Devices/Restraints Safety Devices Safety Devices in place: Not applicable OT Plan OT Plan OT Frequency: One-time visit Past Medical History: has a past medical history of COPD (chronic obstructive pulmonary disease) (HCC) and Kidney stones. Past Surgical History: has a past surgical history that includes Appendectomy and CHOLECYSTECTOMY. OT Frequency: One-time visit Documentation Type Documentation Type Documentation type: Initial Eval Patient/Family Goals Patient/Family Goal Patient/Family Goal: Get the swelling and pain in my legs down. Restrictions/Precautions Restrictions/Precautions Right Lower Extremity Weight Bearing: No restrictions Left Lower Extremity Weight Bearing: No restrictions Fall Risk: Yes Fall Risk - attributed to: Deconditioned Comments: Pain in legs Required Braces & Orthoses Braces/Orthoses Required Braces or Orthoses?: No Cognition Cognition Overall Cognitive Status: A&O X 4 Home Living Home Living Type of Home: Mobile home Lives With: Alone Home Layout: One level Home Access: Stairs to enter without rails/posts Home Adaptive Equipment: Single point cane Information Provided By: Patient Prior Function Prior Function Level of [place]: Independent with ADLs, Independent with functional mobility, Independent with homemaking from ambulatory level Additional Comments: (Patient independent prior to admission. 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 Eased pain when legs are elevated to 4/10. Transfers Transfer Transfer Level of Assistance: Stand by assistance Transfer From: Sit Transfer Type: To and from Transfer To: Stand Technique: Sit to stand, Stand to sit Transfer Device: Single point cane Hand Dominance Hand Dominance Hand Dominance: Right ROM LUE ROM (degrees) LUE ROM: WFL for ADL activity RUE ROM (degrees) RUE ROM: WFL for ADL activity Strength/Tone LUE Strength Overall Strength: Proximal 5/5 - Normal, Distal 5/5 - Normal RUE Strength Overall Strength: Proximal 5/5 - Normal, Distal 5/5 - Normal Tone LUE LUE Tone: Normotonic Tone RUE RUE Tone: Normotonic Edema In LE right LE 1+, left LE 2+ Vision Vision - Basic Assessment Prior Vision: Wears glasses only for reading Sensation/Coordination Sensation RUE Light Touch: Grossly intact LUE Light Touch: Grossly intact RUE Sharp/Dull: Grossly intact LUE Sharp/Dull: Grossly intact Coordination Movements Are Fluid And Coordinated: Yes ADL Treatments (Feeding) ADL Treatment - Feeding Feeding Level of Assistance: Independent ADL Treatments (Grooming) ADL Treatment - Grooming Grooming Level of Assistance: Independent ADL Treatments (Bathing) ADL Treatment - Bathing UE Bathing Level of Assistance: Independent LE Bathing Level of Assistance: Modified independent ADL Treatments (Dressing) ADL Treatment - Dressing UE Dressing Level of Assistance: Independent LE Dressing Level of Assistance: Modified independent ADL Treatments (Toileting) ADL Treatment - Toileting Toileting Level of Assistance: Modified independent Education Education Patient Education Completed With: Patient Role of Therapy and Goals Reviewed: Yes, Patient/Family verbalizes understanding Restrictions/Precautions Reviewed: Yes, Patient/Family verbalizes understanding Safety Reviewed: Yes, Patient/Family verbalizes understanding Therapy Schedule Reviewed: N/A AM-PAC Eating meals?: None Personal grooming such as: brushing teeth?: None Putting on and taking off regular upper body clothing?: None Putting on and taking off regular lower body clothing?: None Toileting: which includes using toilet, bedpan, or urinal?: None Bathing: including washing, rinsing, drying?: None AM-PAC Raw Score: 24 AM-PAC Scale Score: 57.54 AM-PAC CMS 0-100% Score: 0.00% AM-PAC CMS Modifier: CH Plan of Care & Goals Evaluation only. No further acute care needed. Patient/Family Goal Patient/Family Goal: Get the swelling and pain in my legs down. General Chart Reviewed: Yes Time spent with patient/family/caregiver: 34 Minutes Family / Caregiver Present: No Comments: Occupational Therapy evaluation completed this date. Patient demonstrates ability to perform ADL with Mod I due to body habitus. Mobility is limited by pain and edema in legs at this time resulting in need for extra time. Patient is at his functional baseline at this time and no further acute OT services are needed. End of Therapy Session: Resting in bed, Lower extremities elevated This note stands as the current Discharge Summary upon patient discharge from the hospital or completion of Occupational Therapy Plan. Signature: Yvonne Beltrán OT November 23, 2023 * D/C Planning - Abbey Vital Day Haul Youth Supervisor - 11/23/2023 11:10 AM EDT Attempted to meet with patient. OTR in room with patient at this time. SKIDWAY WORKER will attempt again at a later time. * Rehab Therapies - Dalila Reynoso PT - 11/23/2023 10:05 AM EDT Images from the original note were not included. PT Initial Evaluation Name: Azalia Matthew Date of : 1970 Admission Date: 11/22/2023 PT Recommendation Recommendations/Continuum of Care: No further therapy needed Comments: PT eval completed. Pt able to perform mobility with SBA this date. Did ambulate to/from door. Pt is primarily limited by LE pain and required increased time d/t same. No further acute PT needs, pt is at his baseline. Ambulation Level of Assistance: Stand by assistance Ambulation Distance: 20 feet Equipment Recommended: Patient has all needed equipment Barriers to discharge: None AM-PAC Raw Score: 20 Requires PT Follow Up: No PT Plan PT Frequency: One time visit PT Evaluation/Assessment History of present illness:Principal Problem: Heart failure (HCC) Past Medical History: has a past medical history of COPD (chronic obstructive pulmonary disease) (HCC) and Kidney stones. Past Surgical History: has a past surgical history that includes Appendectomy and CHOLECYSTECTOMY. Physical Therapist Physical Therapist Evaluating Physical Therapist: SIGIFREDO Consent Consent Informed consent: Yes Comments: Pt admitted for heart failure, bilat LE swelling and redness. Pt states that he is limited by his pain at this time. Patient's Goal Patient's Goal Patient's Therapy Goal(s): agreeable to participate in eval. Restrictions/Precautions Restrictions/Precautions Right Lower Extremity Weight Bearing: No restrictions Left Lower Extremity Weight Bearing: No restrictions Fall Risk: Yes Fall Risk - attributed to: Deconditioned Comments: Pain Braces/Orthoses Braces/Orthoses Required Braces or Orthoses?: No Cognition Cognition Level of Consciousness: Alert/Awake;Oriented Orientation Level: Oriented X4 Cognition: Follows commands Speech/Language: Clear, meaningful and understandable Home Living Home Living Type of Home: Trailer Lives With: Alone Home Layout: One level Home Access: Stairs to enter without rails/posts Home Adaptive Equipment: Single point cane Information Provided By: Patient Prior Function Prior Function Level of [place]: Independent with ADLs;Independent with functional mobility;Independent with homemaking from ambulatory level Additional Comments: 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 Physical Therapy Vitals Physical Therapy Vitals Additional PT Vitals Comments: SpO2 89-90. Nurse OK to take pt off supplemental oxygen. PT Pain Assessment PT Pain Assessment Is Patient Having Pain?: No LE ROM Assessment LE ROM Assessment RLE General ROM: WFL LLE General ROM: WFL Strength RLE Strength RLE Strength RLE: WFL Strength LLE Strength LLE Strength LLE: WFL Bed Mobility Bed Mobility Bed Mobility Level of Assistance: Stand by assistance Bed Mobility From: Supine Bed Mobility Type: To and from Bed Mobility To: Short sit Bed Mobility Therapy Interventions: Head of Bed raised;Bedrail used to assist self to sitting or tosupine Transfer Transfer Transfer Level of Assistance: Stand by assistance Transfer From: Sit Transfer Type: To and from Transfer To: Stand Technique: Sit to stand;Stand to sit Transfer Device: Single point cane Ambulation Ambulation Weight Bearing Status: No restrictions Ambulation Distance: 20 feet Ambulation Level of Assistance: Stand by assistance Surface: Level tile Device: Single point cane Quality of Gait: Decreased myra;Discontinuous steps Comments: Antalgic, increased lateral sway. Stairs Stairs Stairs?: No Wheelchair Mobility Wheelchair Mobility Wheelchair?: No Balance Balance Sitting - Static Supported: Good;+ Sitting - Static Unsupported: Good;+ Sitting - Dynamic Supported: Good;+ Sitting - Dynamic Unsupported: Good;+ Standing - Static Supported: Good Standing - Dynamic Supported: Good Activity Tolerance Activity Tolerance Activity Tolerance: Patient limited by pain Education Education Patient Education Completed With: Patient Role of Therapy and Goals Reviewed: Yes;Patient/Family verbalizes understanding Restrictions/Precautions Reviewed: Yes;Patient/Family verbalizes understanding Safety Reviewed: Yes;Patient/Family verbalizes understanding Therapy Schedule Reviewed: N/A Comments: Educated pt on source of pain likely being from the inflammation, swelling, redness in LEs and open wounds and benefit of wound care. Did palpate on R LE and increased pain at the lateral malleolus and anterior ankle. Assessment Assessment Prognosis: Good Problem List: Pain limiting mobility Barriers to discharge: None AM-PAC Mobility Scores AM-PAC Mobility Scores AM-PAC Raw Score: 20 AM-PAC Scale Score: 43.99 AM-PAC 0-100% CMS Score: 33.32% AM-PAC CMS Modifier: CJ General General Chart Reviewed: Yes Time spent with patient/family/caregiver: 20 Minutes Family / Caregiver Present: No End of Therapy Session: Resting in bed;Patient's comfort assured;Call light in reach This note stands as the current Discharge Summary upon patient discharge from the hospital or completion of Physical Therapy Plan. Signature: Dalila Reynoso PT November 23, 2023 * Nursing - Argenis Roberson LPN - 11/23/2023 6:17 AM EDT Patient slept for most of this shift. RR easy and unlabored. Call light within reach, no needs at this time. * Nursing - Lyndsay Kim MST - 11/22/2023 6:00 PM EDT MST tried to get a weight at this time bed scale wasn't working and patient states he can't stand on the standing scale at this time due to having leg pain * Pharmacy Note - Kaur Pastor PharmD - 11/22/2023 3:15 PM EDT Pharmacy To Dose Vancomycin For Emergency Department Ht: Wt:(!) 231.3 kg (510 lb) Vancomycin 2g IV x1 now Please administer Cefepime (Maxipime) prior to vancomycin administration. Thank you, Karu Pastor PharmD documented in this encounterWilson [facility]. [facility] Discharge instructions* Discharge Instructions* Sara Ramirez MD - 11/26/2023 11:35 AM EDT You are seen in the hospital for evaluation of volume overload as well as leg ulcers. Ultrasound your heart showed no evidence of acute heart failure. Your volume overload may be secondary to your body habitus and weight. You improved with IV diuretics and were not discharged with any. You are alsoseen by podiatry for chronic leg ulcers and they recommended outpatient follow-up in wound clinic. Continue wound care as prescribed. Vascular surgery evaluated you for peripheral arterial disease and recommended you be referred to a tertiary care center for evaluation by vascular surgery; PCP willneed to arrange this. documented in this encounterWilson N. [facility] Hospital course Narrative* Sara Ramirez MD - 11/26/2023 11:28 AM EDT [facility] Azalia Matthew Account: [id number] Admitted: 11/22/2023 Discharge Date/Time: 07/27/24 / 11:50 AM Handoff to PCP PCP to address the following Repeat LFTs within 1-2 weeks of discharge Outpatient follow-up with podiatry Patient will need [facility] of[facility] Clinical Summary Azalia Matthew is a 53 y.o. male with a history of COPD who presented to [facility] with lower extremity edema, exertional dyspnea/orthopnea. Patient was found to have CHF and acute hypoxic failure. Patient transferred to [facility] 11/22/2023 for further management. Hospital course complicated by leg ulcer and PAD. Evaluated by podiatry and vascular surgery. Patient improved and discharged home. Volume overload: suspect diastolic heart failure. Reported worsening lower extremity edema over thelast month. NT Pro BNP 315. CXR showed fluid overload. TTE 11/22/23 with LVEF 60-65%, diastolic function normal no heart failure on echo. Unclear etiology of volume overload given normal ECHO. Resolved with IV diuresis during admission. No diuretic prescribed on discharge. Follow-up with PCP. Acute Hypoxic Respiratory Failure: Required 3L of NC on admit. Suspect due to above. Resolved to room air at time of discharge. Chronic Leg Ulcers: suspect drinage due to lower extremity edema from CHF. BLED negative for DVT/SVT. S/p Vanco/Cefepime in the ED. In the absence of leukocytosis, fever will hold off on further antibiotics. ETRN following. Procalcition WNL. Podiatry followed: outpatient follow-up in wound clinic. D ischarged with supplies for dressing changes. PAD: Arterial duplex 11/24/23 with significant infrapopliteal artery disease. Vascular surgery followed: recommended outpatient evaluation by vascular surgery at [facility] due to weight. Abnormal Liver Enzymes: LFTs 11/25/23 with mild elevation. Stable during admission. Possibly hepaticcongestion from volume overload. Liver US without acute findings. Follow-up LFTs with PCP in 1-2 weeks. Hypokalemia: K 3.5. Resolved. COPD: per hx. No acute exacerbation on admit. Tobacco Abuse: per hx. Cessation advised Morbid Obesity: per Body mass index is 69.17 kg/m . Code Status: Full Code Disposition: Home Discharge plan discussed the patient, expressed understanding agreement. General: NAD Eyes: EOMI ENT: neck supple Cardiovascular: Regular rate. Respiratory: Clear to auscultation Gastrointestinal: Soft, non tender Genitourinary: no suprapubic tenderness Musculoskeletal: 2+ pitting edema in b/l LE Skin: b/l chronic venous stasis ulcers in b/l LE Neuro: Alert. Psych: Mood appropriate Discharge Medications Medication List START taking these medications Last dose given Next dose due Aquacel-Ag Extra Hydrofiber 4X5 Application Dose: 1 Application Refills: 0 Apply 1 Application topically daily for 30 days. Care: 1. Cleanse wound with: Normal Saline 2. Apply Aquacel ag cut to fit wounds on the bilateral lower legs 3. Cover wound with: Unna zinc strips loosely wrapped followed by kerlix from ankle to knee. silver sulfADIAZINE 1 % cream Quantity: 50 g Refills: 0 Apply topically two times a day. Commonly known as: SILVADENE This is the list of medications that you provided. Last dose given Next dose due ALEVE PO Refills: 0 Take by mouth. Physician(s) Family: None Pcp, Phone: None, Address: [address] [place] [address] / [place] [address] Follow Up: Isma Braxton DPM [address] [place] [address] [place] [address] Call Arrange for follow-up with wound care [facility] [address] [place] [address] [place] [address] Pcp, None [address] [place] [address] [address] [facility] [id number] No future appointments. A face to face visit was performed with the patient on the day of discharge. For more detailed information including patient medical records, please contact [phone] or go to [email or web address] Patient instructions, including activity, were given to the patient/family at discharge. Please seethe After Visit Summary in the medical record for details. Time spent on discharge: > 30 Minutes Completed by: Sara Ramirez MD on 11/26/23, 11:50 AM documented in this encounterWilson N. [facility]07-27-2024 History of Present illness Narrative* Isma Braxton DPM - 11/26/2023 6:39 AM EDT Progress Note Subjective: Primary Reason for Visit: Arterial and venous leg ulcer Alert and oriented x 3. 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 Objective: Vital signs in last 24 hours: Temp: [97.4 F (36.3 C)-98.2 F (36.8 C)] 97.8 F (36.6 C) Heart Rate: [74-82] 75 Resp: [20-24] 20 BP: (110-139)/(55-89) 138/89 I/O last 3 completed shifts: In: 1360 [P.O.:1360] Out: 2525 [Urine:2525] I/O this shift: In: 240 [P.O.:240] Out: 700 [Urine:700] Lower Extremity Exam: Wound is open, erythema, induration, healing, at this time appears that despite Silvadene Aquacel sticking and pulling off actually good skin thus order to switch this bilateral legs anteriorly both about 3-1/2 cm in diameter superficial depth superficial with remaining indurated no ascending infection no abscess or fluctuant lymphedema elephantitis of legs correlation with morbid obesity. And isImproved. Very faint DP nonpalpable PT pedal pulses. Results for orders placed or performed during the hospital encounter of 11/22/23 Wound culture with gram stain Specimen: Leg, Right; Wound Result Value Ref Range Wound Culture 4+ Staphylococcus pseudointermedius (A) Wound Culture 4+ Staphylococcus sciuri (A) Gram Stain of Culture No organisms seen Blood culture x2 (Includes gram stain) Specimen: Blood, Venous Result Value Ref Range Blood Culture Growth No Growth at 72 Hrs IMPRESSION: * Significant infrapopliteal artery disease noted in both legs. * Recommend physiologic arterial testing. Study Info Technical Quality: Technically Difficult Exam Type: VL LOWER EXT ARTERIAL DUPLEX - BILATERAL Indications Weak peripheral pulses - Patient Info Name: Azalia Matthew Age: 53 years : 1970 Gender: Male Ht: 72 in Wt: 500 lbs BSA: 3.54 m2 Exam Date: 11/24/2023 11:15 AM Patient Status: OBV Admit Date: 11/22/2023 A non-invasive vascular duplex imaging study of the lower extremity arteries was performed using two-dimensional evaluation, color flow and spectral Doppler analysis. Staff Primary Care Physician: Dillon Pcp Cooler Conveyor Loader: Tamera Reina RVT Ordering Physician: Josias Coles APRN [employer]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 Attending Physician: Lizbeth Wilson MD History/Risk Factors Obesity: Yes Tobacco Use: Current - Every Day History/Risk Factors open ulcerative wounds on bilat ankles. Right LE Arterial Findings Low color flow/spectral Doppler flow velocities with intraluminal plaque noted in the distal right anterior tibial artery consistent with subtotal occlusion. Left LE Arterial Findings Low color flow/spectral Doppler flow velocities with intraluminal plaque noted in the distal left anterior tibial artery consistent with a subtotal occlusion. Segmental BP Findings Unable to perform ABIs due to patient's low pain tolerance in bilateral ankle areas. Lower Extremity Arterial Measurements RIGHT Iliac PSV (cm/s): 184 cm/s RIGHT Iliac Waveform: Triphasic RIGHT PLATE DRILLER PSV (cm/s): 249 cm/s RIGHT PLATE DRILLER Waveform: Triphasic RIGHT PFA PSV (cm/s): 65 cm/s RIGHT PFA Waveform: Triphasic RIGHT Prox SFA PSV (cm/s): 147 cm/s RIGHT Prox SFA Waveform: Triphasic RIGHT Mid SFA PSV (cm/s): 134 cm/s RIGHT Mid SFA Waveform: Triphasic RIGHT Dist SFA PSV (cm/s): 102 cm/s RIGHT Dist SFA Waveform: Triphasic RIGHT Prox Pop PSV (cm/s): 132 cm/s RIGHT Prox Pop Waveform: Triphasic RIGHT Dist Pop PSV (cm/s): 108 cm/s RIGHT Dist Pop Waveform: Triphasic RIGHT Prox BURNER TENDER PSV (cm/s): 41 cm/s RIGHT Prox BURNER TENDER Waveform: Triphasic RIGHT Mid BURNER TENDER PSV (cm/s): 113 cm/s RIGHT Mid BURNER TENDER Waveform: Triphasic RIGHT Dist BURNER TENDER PSV (cm/s): 75 cm/s RIGHT Dist BURNER TENDER Waveform: Triphasic RIGHT Prox FLACA PSV (cm/s): 77 cm/s RIGHT Prox FLACA Waveform: Biphasic RIGHT Mid FLACA PSV (cm/s): 16 cm/s RIGHT Mid FLACA Waveform: Monophasic RIGHT Dist FLACA PSV (cm/s): 28 cm/s RIGHT Dist FLACA Waveform: Monophasic LEFT Iliac PSV (cm/s): 173 cm/s LEFT Iliac Waveform: Triphasic LEFT PLATE DRILLER PSV (cm/s): 172 cm/s LEFT PLATE DRILLER Waveform: Triphasic LEFT PFA PSV (cm/s): 266 cm/s LEFT PFA Waveform: Triphasic LEFT Prox SFA PSV (cm/s): 237 cm/s LEFT Prox SFA Waveform: Triphasic LEFT Mid SFA PSV (cm/s): 131 cm/s LEFT Mid SFA Waveform: Triphasic LEFT Dist SFA PSV (cm/s): 105 cm/s LEFT Dist SFA Waveform: Triphasic LEFT Prox Pop PSV (cm/s): 129 cm/s LEFT Prox Pop Waveform: Triphasic LEFT Dist Pop PSV (cm/s): 89 cm/s LEFT Dist Pop Waveform: Triphasic LEFT Prox BURNER TENDER PSV (cm/s): 102 cm/s LEFT Prox BURNER TENDER Waveform: Triphasic LEFT Mid BURNER TENDER PSV (cm/s): 59 cm/s LEFT Mid BURNER TENDER Waveform: Triphasic LEFT Dist BURNER TENDER PSV (cm/s): 65 cm/s LEFT Dist BURNER TENDER Waveform: Triphasic LEFT Prox FLACA PSV (cm/s): 82 cm/s LEFT Prox FLACA Waveform: Biphasic LEFT Mid FLACA PSV (cm/s): 113 cm/s LEFT Mid FLACA Waveform: Monophasic LEFT Dist FLACA PSV (cm/s): 51 cm/s LEFT Dist FLACA Waveform: Monophasic Report Signatures Finalized by Montse Plasencia DO on 11/24/2023 01:22 PM Doppler Findings Triphasic waveform demonstrated in the right femoral artery, superficial femoral artery, popliteal artery and posterior tibial artery. Monophasic waveform demonstrated in the right dorsalis pedis artery consistent with moderate peripheral vascular disease. Triphasic waveform demonstrated in the left femoral artery, superficial femoral artery, popliteal artery and posterior tibial artery. Monophasic waveform demonstrated in the left dorsalis pedis artery consistent with moderate peripheral vascular disease. Very difficult to visualize posterior tibial and anterior tibial arteries due to patient's body habitus and tissue changes bilaterally. Doppler RIGHT Femoral : Triphasic RIGHT Superficial Femoral : Triphasic RIGHT Popliteal : Triphasic RIGHT Posterior Tibial : Triphasic RIGHT Dorsalis Pedis : Monophasic LEFT Femoral : Triphasic LEFT Superficial Femoral : Triphasic LEFT Popliteal : Triphasic LEFT Posterior Tibial : Triphasic LEFT Dorsalis Pedis : Monophasic Lab Results Component Value Date WHITEBLOODCE 7.1 11/25/2023 HGB 17.2 11/25/2023 HCT 52.6 (H) 11/25/2023 PLT 263 11/25/2023 ALT 71 (H) 11/25/2023 AST 62 (H) 11/25/2023 NA 139 11/25/2023 K 4.2 11/25/2023 CL 97 11/25/2023 CREATININE 0.77 11/25/2023 BUN 12 11/25/2023 CO2 37 (H) 11/25/2023 No results found for: SEDRATE Results for orders placed or performed during the hospital encounter of 11/22/23 Wound culture with gram stain Specimen: Leg, Right; Wound Result Value Ref Range Wound Culture 4+ Staphylococcus pseudointermedius (A) Wound Culture 4+ Staphylococcus sciuri (A) Gram Stain of Culture No organisms seen Blood culture x2 (Includes gram stain) Specimen: Blood, Venous Result Value Ref Range Blood Culture Growth No Growth at 72 Hrs Assessment: Principal Problem: Heart failure ([facility]) Active Problems: Heart failure, unspecified ([facility]) Acute bilateral venous stasis dermatitis PVD (peripheral vascular disease) ([facility]) Plan: 1.) Exam 2.) At this time as far as podiatry patient can be discharged with vascular note that patient needsto be at a tertiary center due to morbid obesity but legs are stable without gross signs of infection #1 factors encourage leg elevation and wound care for now with combined segment will need tertiary center for vascular intervention but at this point due to dressing pulling feel we will just use si mple Silvadene with 4 x 4's and some Curlex patient possibly can do on his own he does not have much help at home which he is going there 3 to 4 days out of a month which is difficult at this point wound center may be able to get him special dressings that would benefit him that he could put on himself very easily large Band-Aid absorbent dressings but at this point we will switch dressings to prevent sticking and pulling off skin and patient is instructions to follow-up in wound center patientshould be able to be discharged today with follow-up proceeding Continue local wound care. Dr. Isma Braxton DPM This note was constructed and dictated with the use of [employer] Voice Recognition Software program which may omit or change portions of the dictation, and or substitute ominous and there by altering the original intent dictated statement. Unintended gender changes may also be incorporated due to misinterpretation of the spoken words. * Sara Ramirez MD - 11/25/2023 11:24 AM EDT [facility] Inpatient Progress Note 11/25/2023 Azalia Matthew 1970 [id number] Assessment/Plan: Azalia Matthew is a 53 y.o. male with a history of COPD who presented to [facility] with lower extremity edema, exertional dyspnea/orthopnea. Patient was found to have CHF and acute hypoxic failure. Patient transferred to [facility] 11/22/2023 for further management. Volume overload: suspect diastolic heart failure. Reported worsening lower extremity edema over thelast month. NT Pro BNP 315. CXR showed fluid overload. TTE 11/22/23 with LVEF 60-65%, diastolic function normal no heart failure on echo. May benefit from prn lasix for water retention/weight gain on dc. Continued IV lasix. LFTs ordered to rule out hepatic pathology. Acute Hypoxic Respiratory Failure: Required 3L of NC on admit. Suspect due to above. Wean oxygen asable. May need home O2 eval on dc. Chronic Leg Ulcers: suspect drinage due to lower extremity edema from CHF. BLED negative for DVT/SVT. S/p Vanco/Cefepime in the ED. In the absence of leukocytosis, fever will hold off on further antibiotics. ETRN following. Procalcition WNL. Podiatry following: outpatient follow-up in wound clinic. PAD: Arterial duplex 11/24/23 with significant infrapopliteal artery disease. Vascular surgery consulted. Hypokalemia: K 3.5. Replace with electrolyte replacement protocol as needed. COPD: per hx. No acute exacerbation on admit. Tobacco Abuse: per hx. NRT PRN. Morbid Obesity: per Body mass index is 69.17 kg/m . Code Status: Full Code DVT Prophylaxis: Lovenox Current living situation: Home Expected Disposition: Likely Home Estimated discharge date: TB, pending vascular surgery evaluation Subjective: I have personally reviewed notes, labs and imaging, which are notable for: Notes: Podiatry Labs: CBC, BMP Providers that I've discussed care with include: Podiatry, vascular surgery No acute events overnight. Patient reports feeling better this morning. Feels like his swelling is improving. Denies shortness of breath. CBC, BMP stable. Arterial duplex as above. Case discussed podiatry and they recommended vascular surgery evaluation. Discussed with vascular surgery and they will see the patient. Discussed with nursing to attempt to wean patient's oxygen. Physical Exam: Visit Vitals BP 110/56 (Patient Position: Lying) Pulse 82 Temp 98.2 F (36.8 C) (forehead) Resp 24 Ht 6' (1.829 m) Wt (!) 226.5 kg (499 lb 6.4 oz) SpO2 90% BMI 67.73 kg/m General: NAD Eyes: EOMI ENT: neck supple Cardiovascular: Regular rate. Respiratory: Clear to auscultation Gastrointestinal: Soft, non tender Genitourinary: no suprapubic tenderness Musculoskeletal: 2+ pitting edema in b/l LE Skin: b/l chronic venous stasis ulcers in b/l LE Neuro: Alert. Psych: Mood appropriate. Current Medications: Aquacel-Ag Extra Hydrofiber 1 Application Topical Daily enoxaparin 60 mg Subcutaneous 2 times per day Furosemide 40 mg IV Push Daily nicotine 21 mg Transdermal Daily Unna-Flex Elastic Unna Boot 1 Application Topical Daily Labs, Imaging and Studies reviewed: Recent Labs Lab 11/25/23 0506 11/24/23 0827 11/23/23 0539 HGB 17.2 16.8 16.3 HCT 52.6* 50.6 49.8 PLT 263 266 259 Recent Labs Lab 11/25/23 0557 11/24/23 0519 11/23/23 0649 NA 139 137 137 K 4.2 3.5* 3.5* 3.5* CL 97 101 102 BUN 12 13 11 CREATININE 0.77 0.75 0.75 EGFR 107.7 108.6 108.6 CALCIUM 9.1 8.5 8.4 No results for input(s): ALT, AST, ALKPHOS, BILITOT in the last 168 hours. No results for input(s): INR in the last 168 hours. * Isma Braxton DPM - 11/25/2023 5:15 AM EDT Images from the original note were not included. Progress Note Subjective: Primary Reason for Visit: Lateral venous stasis leg ulcers posterior irritation due to edema in coverage for Dr. Crawley Alert and oriented x 3. Patient seen sitting with legs down Review of Systems: Patient denies fever, sweats, chills, chest pain, shortness of breath, calf painor unusual fatigue. Objective: Vital signs in last 24 hours: Temp: [97.4 F (36.3 C)-98.1 F (36.7 C)] 97.8 F (36.6 C) Heart Rate: [66-77] 77 Resp: [18-24] 24 BP: (124-154)/(66-75) 154/75 I/O last 3 completed shifts: In: 880 [P.O.:880] Out: 2900 [Urine:2900] No intake/output data recorded. Lower Extremity Exam: Bilateral legs were wrapped legs down with picture documentation yesterday of skin slough posteriorly drying up from previous pictures patient had at this point no gross signs of infection indurated nonpitting edema bilaterally 1/4 very faint DP difficult PT due to edema but no cold limb CFT withinnormal limits extremities are soft and do not appear to be indurated or DVT type presentation IMPRESSION: * Significant infrapopliteal artery disease noted in both legs. * Recommend physiologic arterial testing. Study Info Technical Quality: Technically Difficult Exam Type: VL LOWER EXT ARTERIAL DUPLEX - BILATERAL Indications Weak peripheral pulses - Patient Info Name: Azalia Matthew Age: 53 years : 1970 Gender: Male Ht: 72 in Wt: 500 lbs BSA: 3.54 m2 Exam Date: 11/24/2023 11:15 AM Patient Status: OBV Admit Date: 11/22/2023 A non-invasive vascular duplex imaging study of the lower extremity arteries was performed using two-dimensional evaluation, color flow and spectral Doppler analysis. Staff Primary Care Physician: None Pcp Cooler Conveyor Loader: Tamera Reina RVT Ordering Physician: Josias Coles APRN 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 Attending Physician: Lizbeth Wilson MD History/Risk Factors Obesity: Yes Tobacco Use: Current - Every Day History/Risk Factors open ulcerative wounds on bilat ankles. Right LE Arterial Findings Low color flow/spectral Doppler flow velocities with intraluminal plaque noted in the distal right anterior tibial artery consistent with subtotal occlusion. Left LE Arterial Findings Low color flow/spectral Doppler flow velocities with intraluminal plaque noted in the distal left anterior tibial artery consistent with a subtotal occlusion. Segmental BP Findings Unable to perform ABIs due to patient's low pain tolerance in bilateral ankle areas. Lower Extremity Arterial Measurements RIGHT Iliac PSV (cm/s): 184 cm/s RIGHT Iliac Waveform: Triphasic RIGHT PLATE DRILLER PSV (cm/s): 249 cm/s RIGHT PLATE DRILLER Waveform: Triphasic RIGHT PFA PSV (cm/s): 65 cm/s RIGHT PFA Waveform: Triphasic RIGHT Prox SFA PSV (cm/s): 147 cm/s RIGHT Prox SFA Waveform: Triphasic RIGHT Mid SFA PSV (cm/s): 134 cm/s RIGHT Mid SFA Waveform: Triphasic RIGHT Dist SFA PSV (cm/s): 102 cm/s RIGHT Dist SFA Waveform: Triphasic RIGHT Prox Pop PSV (cm/s): 132 cm/s RIGHT Prox Pop Waveform: Triphasic RIGHT Dist Pop PSV (cm/s): 108 cm/s RIGHT Dist Pop Waveform: Triphasic RIGHT Prox BURNER TENDER PSV (cm/s): 41 cm/s RIGHT Prox BURNER TENDER Waveform: Triphasic RIGHT Mid BURNER TENDER PSV (cm/s): 113 cm/s RIGHT Mid BURNER TENDER Waveform: Triphasic RIGHT Dist BURNER TENDER PSV (cm/s): 75 cm/s RIGHT Dist BURNER TENDER Waveform: Triphasic RIGHT Prox FLACA PSV (cm/s): 77 cm/s RIGHT Prox FLACA Waveform: Biphasic RIGHT Mid FLACA PSV (cm/s): 16 cm/s RIGHT Mid FLACA Waveform: Monophasic RIGHT Dist FLACA PSV (cm/s): 28 cm/s RIGHT Dist FLACA Waveform: Monophasic LEFT Iliac PSV (cm/s): 173 cm/s LEFT Iliac Waveform: Triphasic LEFT PLATE DRILLER PSV (cm/s): 172 cm/s LEFT PLATE DRILLER Waveform: Triphasic LEFT PFA PSV (cm/s): 266 cm/s LEFT PFA Waveform: Triphasic LEFT Prox SFA PSV (cm/s): 237 cm/s LEFT Prox SFA Waveform: Triphasic LEFT Mid SFA PSV (cm/s): 131 cm/s LEFT Mid SFA Waveform: Triphasic LEFT Dist SFA PSV (cm/s): 105 cm/s LEFT Dist SFA Waveform: Triphasic LEFT Prox Pop PSV (cm/s): 129 cm/s LEFT Prox Pop Waveform: Triphasic LEFT Dist Pop PSV (cm/s): 89 cm/s LEFT Dist Pop Waveform: Triphasic LEFT Prox BURNER TENDER PSV (cm/s): 102 cm/s LEFT Prox BURNER TENDER Waveform: Triphasic LEFT Mid BURNER TENDER PSV (cm/s): 59 cm/s LEFT Mid BURNER TENDER Waveform: Triphasic LEFT Dist BURNER TENDER PSV (cm/s): 65 cm/s LEFT Dist BURNER TENDER Waveform: Triphasic LEFT Prox FLACA PSV (cm/s): 82 cm/s LEFT Prox FLACA Waveform: Biphasic LEFT Mid FLACA PSV (cm/s): 113 cm/s LEFT Mid FLACA Waveform: Monophasic LEFT Dist FLACA PSV (cm/s): 51 cm/s LEFT Dist FLACA Waveform: Monophasic Report Signatures Finalized by Montse Plasencia DO on 11/24/2023 01:22 PM Doppler Findings Triphasic waveform demonstrated in the right femoral artery, superficial femoral artery, popliteal artery and posterior tibial artery. Monophasic waveform demonstrated in the right dorsalis pedis artery consistent with moderate peripheral vascular disease. Triphasic waveform demonstrated in the left femoral artery, superficial femoral artery, popliteal artery and posterior tibial artery. Monophasic waveform demonstrated in the left dorsalis pedis artery consistent with moderate peripheral vascular disease. Very difficult to visualize posterior tibial and anterior tibial arteries due to patient's body habitus and tissue changes bilaterally. Doppler RIGHT Femoral : Triphasic RIGHT Superficial Femoral : Triphasic RIGHT Popliteal : Triphasic RIGHT Posterior Tibial : Triphasic RIGHT Dorsalis Pedis : Monophasic LEFT Femoral : Triphasic LEFT Superficial Femoral : Triphasic LEFT Popliteal : Triphasic LEFT Posterior Tibial : Triphasic LEFT Dorsalis Pedis : Monophasic Linked Documents View Report Imaging Arterial Duplex Lower Extremity Bilat (Order: [id number]) - 11/24/2023 Result History Arterial Duplex Lower Extremity Bilat (Order #[id number]) on 11/24/2023 - Order Result History Report Signed by Signed Date/Time Phone Pager MONTSE PLASENCIA 11/24/2023 13:22 PACS Images (Non Diagnostic quality) Show images for Arterial Duplex Lower Extremity Bilat Exam Information Status Exam Begun Exam Ended Final [99] 11/24/2023 11:15 11/24/2023 12:58 Linked Documents View Report Document Information <none specified> Attached To: Encounter on 01/26/73 Order-Level Documents: There are no order-level documents. Encounter-Level Documents: Wound Image - Scan on 11/23/2023 1400 by Lianne Mendenhall RN: Left lower anterior leg Wound Image - Scan on 11/23/2023 1400 by Lianne Mendenhall RN: Right lower leg anterior Wound Image - Scan on 11/22/20231957 by Argenis Roberson LPN Wound Image - Scan on 11/22/20231957 by Argenis Roberson LPN Wound Image - Scan on 11/22/20231957 by Argenis Roberson LPN Clinical Unknown - Scan on 11/22/20231901 by Adan Zaman PA Results for orders placed or performed during the hospital encounter of 11/22/23 Wound culture with gram stain Specimen: Leg, Right; Wound Result Value Ref Range Wound Culture 4+ Staphylococcus (A) Gram Stain of Culture No organisms seen Blood culture x2 (Includes gram stain) Specimen: Blood, Venous Result Value Ref Range Blood Culture Growth No Growth at 48 Hrs Lab Results Component Value Date WHITEBLOODCE 7.1 11/25/2023 HGB 17.2 11/25/2023 HCT 52.6 (H) 11/25/2023 PLT 263 11/25/2023 ALT 66 06/27/2013 AST 25 06/27/2013 NA 139 11/25/2023 K 4.2 11/25/2023 CL 97 11/25/2023 CREATININE 0.77 11/25/2023 BUN 12 11/25/2023 CO2 37 (H) 11/25/2023 No results found for: SEDRATE Results for orders placed or performed during the hospital encounter of 11/22/23 Wound culture with gram stain Specimen: Leg, Right; Wound Result Value Ref Range Wound Culture 4+ Staphylococcus (A) Gram Stain of Culture No organisms seen Blood culture x2 (Includes gram stain) Specimen: Blood, Venous Result Value Ref Range Blood Culture Growth No Growth at 48 Hrs Assessment: Principal Problem: Heart failure ([facility]) Active Problems: Heart failure, unspecified ([facility]) Acute bilateral venous stasis dermatitis PVD (peripheral vascular disease) ([facility]) Plan: 1.) Exam 2.) This time we will continue dressing of Aquacel Ag zinc strips and loosely applied Curlex daily patient will be followed in wound center 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 Will encourage leg elevation once again patient my understanding n be followedup in wound center patient may be able to be discharged today pending medical care patient should be sent home with supplies at this time upon review of the noninvasive study noted above and after talking with hospitalist patient probably has a combined arterial and venous but due to his situation feel best before leaving vascular to be seen Patient will follow-up in wound center if possible due to patient's work situation does not have a true residence does live with his aunt at times he is not back but usually is on the road 30 days orlonger Continue local wound care. Dr. Isma Braxton DPM This note was constructed and dictated with the use of [employer] Voice [employer]ognition Software program which may omit or change portions of the dictation, and or substitute ominous and there by altering the original intent dictated statement. Unintended gender changes may also be incorporated due to misinterpretation of the spoken words. * Tereso Arcos DO - 11/24/2023 12:34 PM EDT [facility] Medicine / [facility] Inpatient Progress Note 11/24/2023 Azalia Matthew 1970 [id number] Assessment/Plan: Azalia Matthew is a 53 y.o. male with a history of COPD who presented to [facility] with lower extremity edema, exertional dyspnea/orthopnea. Patient was found to have CHF and acute hypoxic failure. Patient transferred to [facility] 11/22/2023 for further management. Volume overload: suspect diastolic heart failure. Reported worsening lower extremity edema over thelast month. NT Pro BNP 315. CXR showed fluid overload. Initiated on IV diuresis in ED, continued onadmit. TTE 11/22/23 with EF 60-65% Diastolic function normal no heart failure on echo. May need benefit from prn lasix for water retention/weight gain on dc. Acute Hypoxic Respiratory Failure: Required 3L of NC on admit. Suspect due to above. IV diuresis asdiscussed. Wean oxygen as able. May need home O2 eval on dc. Chronic Leg Ulcers: suspect drinage due to lower extremity edema from CHF. BLED negative for DVT/SVT. S/p Vanco/Cefepime in the ED. In the absence of leukocytosis, fever will hold off on further antibiotics. ETRN following. Procalcition WNL. Podiatry following. Arterial duplex pending. Hypokalemia: K 3.5. Replace with electrolyte replacement protocol as needed. COPD: per hx. No acute exacerbation on admit. Tobacco Abuse: per hx. NRT PRN. Morbid Obesity: per Body mass index is 69.17 kg/m . Code Status: Full Code DVT Prophylaxis: Lovenox Current living situation: Home Expected Disposition: Likely Home Estimated discharge date: 1-2 days pending Subjective: Patient seen and examined. Denies any complaints. Patient does have some pain with dressing changesand required IV dilaudid to complete arterial duplex. BMP and CBC reviewed echo reviewed. Patient will likely need wound care as well PCP FU upon discharge. Physical Exam: Visit Vitals BP 149/68 (Patient Position: Lying) Pulse 75 Temp 98.1 F (36.7 C) (forehead) Resp 20 Ht 6' (1.829 m) Wt (!) 226.9 kg (500 lb 3.2 oz) SpO2 90% BMI 67.84 kg/m General: NAD Eyes: EOMI ENT: neck supple Cardiovascular: Regular rate. Respiratory: Clear to auscultation Gastrointestinal: Soft, non tender Genitourinary: no suprapubic tenderness Musculoskeletal: No edema. Skin: warm, dry Neuro: Alert. Psych: Mood appropriate. Current Medications: Aquacel-Ag Extra Hydrofiber 1 Application Topical Daily enoxaparin 60 mg Subcutaneous 2 times per day nicotine 21 mg Transdermal Daily Unna-Flex Elastic Unna Boot 1 Application Topical Daily Labs, Imaging and Studies reviewed: Recent Labs Lab 11/24/23 0827 11/23/23 0539 11/22/23 1405 HGB 16.8 16.3 16.9 HCT 50.6 49.8 53.1* PLT 266 259 279 Recent Labs Lab 11/24/23 0519 11/23/23 0649 11/22/23 1405 NA 137 137 138 K 3.5* 3.5* 3.5* 3.5* CL 101 102 103 BUN 13 11 9 CREATININE 0.75 0.75 0.66 EGFR 108.6 108.6 112.9 CALCIUM 8.5 8.4 8.5 No results for input(s): ALT, AST, ALKPHOS, BILITOT in the last 168 hours. No results for input(s): INR in the last 168 hours. * Josias Coles APRN SPR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 - 11/24/2023 8:05 AM EDT Azalia Pérez [place] 1970 Admission Date:11/22/2023 Patient Seen on 11/24/2023 Subjective: Patient seen in follow-up for bilateral lower extremity venous ulceration. 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 He states ulcers present for approximately 1 month. Patient reports he hasbeen using OTC cream and peroxide to help with wound healing. Patient denies fever/chills or other signs/symptoms of infection. He states he does not follow with a PCP. Past Medical History: Diagnosis Date COPD (chronic obstructive pulmonary disease) (HCC) Kidney stones Past Surgical History: Procedure Laterality Date APPENDECTOMY CHOLECYSTECTOMY Lab Results Component Value Date HGB 16.3 11/23/2023 HCT 49.8 11/23/2023 PLT 259 11/23/2023 ALT 66 06/27/2013 AST 25 06/27/2013 NA 137 11/23/2023 K 3.5 (L) 11/24/2023 CL 102 11/23/2023 CREATININE 0.75 11/23/2023 BUN 11 11/23/2023 CO2 30 11/23/2023 Results for orders placed or performed during the hospital encounter of 11/22/23 XR Chest 1 View Collection Time: 11/22/23 2:25 PM Narrative EXAM: XR CHEST 1 VIEW, 11/22/2023 2:25 PM EDT INDICATION: leg swelling COMPARISON: None. TECHNIQUE: Single AP frontal view of the chest was obtained. FINDINGS: Medical devices/lines/tubes: None. Heart/mediastinum: Heart is magnified given AP technique, but is felt to be within normal limits. Pulmonary vascularity: Pulmonary vascularity is distended compatible with CHF/fluid overload. Pleura: No evidence of sizable pleural effusion on this single frontal view. No pneumothorax. Lungs: No focal airspace consolidation. Skeletal: No acute or concerning bony finding is evident. Other comments: None. Impression 1. CHF/fluid overload. Venous Duplex Lower Ext Bilateral Collection Time: 11/22/23 4:12 PM Narrative Vascular prelim: No obvious evidence of DVT/SVT in vessels well visualized of the bilateral lower extremity. Echocardiogram Complete with contrast Collection Time: 11/23/23 11:21 AM Impression 1. Technically difficult study due to poor acoustic windows. Definity used to enhance ultrasound images. 2. Left ventricular ejection fraction is normal, visually estimated at 60-65%. 3. The right ventricle is not well-visualized. 4. Valves are not well-visualized. No hemodynamically significant abnormalities identified. Patient Info Name: Azalia Matthew Age: 53 years : 1970 Gender: Male Ht: 72 in Wt: 510 lbs BSA: 3.57 m2 HR: 81 bpm BP: 119 / 73 mmHg Technical Quality: Technically difficult with Definity Patient Status: OBV Site: [facility] Current Location: [facility] [place] Exam Type: ECHOCARDIOGRAM WITH CONTRAST Study Info Indications - CHF Procedure(s) A complete two-dimensional, color flow and Doppler transthoracic echocardiogram was performed with Definity contrast to opacify the left ventricle and to improve the delineation of the left ventricle endocardial borders. Staff Primary Care Provider: None Pcp Ordering Provider: Canelo Cummins MD Cooler Conveyor Loader: Parrish Hanna [facility], RVT History/Risk Factors Tobacco Use: Current - Every Day Left Ventricle Images inadequate for left ventricular wall thickness evaluation. Left ventricular segmental wall motion is normal. The left ventricular diastolic function is normal. Left ventricular ejection fraction is normal, visually estimated at 60-65%. Right Ventricle The right ventricle is not well-visualized. Left Atrium Left atrium is not well-visualized. Right Atrium Right atrium is not well-visualized. Aortic Valve Aortic valve is not well-visualized. No aortic valve stenosis per Doppler interrogation. There is no aortic valve regurgitation. Pulmonic Valve The pulmonic valve is not well visualized. Mitral Valve The mitral valve has not well visualized. There is no mitral valve stenosis. There is no mitral valve regurgitation. Tricuspid Valve The tricuspid valve leaflets are not well visualized. There is no tricuspid valve stenosis. There is no tricuspid valve regurgitation. Unable to estimate pulmonary artery systolic pressure due to inadequate tricuspid regurgitant envelope. Pericardium/Pleural No pericardial effusion identified. Inferior Vena Cava IVC is not well-visualized. Aorta Aortic root and ascending aorta are not well-visualized. Measurements Left Ventricular Outflow Tract Name Value Normal LVOT Doppler LVOT Peak Velocity 100 cm/s LVOT Mean Gradient 2 mmHg LVOT VTI 21 cm LVOT VTI/AV VTI Ratio 0.86 Mitral Valve Name Value Normal MV Doppler MV Peak Velocity 112 cm/s MV Mean Gradient 2 mmHg MV VTI 29 cm MV Decel [place] 325 cm/s2 MV PHT 83 ms MV Area (PHT) 2.7 cm2 4.0-5.0 MV Diastolic Function MV E Peak Velocity 75 cm/s MV A Peak Velocity 67 cm/s MV E/A 1.1 MV Annular TDI MV Septal e' Velocity 13.5 cm/s MV E/e' (Septal) 5.6 MV Lateral e' Velocity 18.6 cm/s MV E/e' (Lateral) 4.0 MV e' Average 16.05 cm/s MV E/e' (Average) 4.8 Aortic Valve Name Value Normal AV Doppler AV Peak Velocity 154 cm/s AV Mean Gradient 5 mmHg AV VTI 24.80 cm AV DI (Son) 0.65 Ventricles Name Value Normal LV Dimensions 2D/MM IVS Diastolic Thickness (2D) 1.2 cm 0.6-1.0 LVID Diastole (2D) 4.5 cm 4.2-5.8 LVIW Diastolic Thickness (2D) 1.4 cm 0.6-1.0 LVID Systole (2D) 3.1 cm 2.5-4.0 LV Mass (2D Cubed) 220.29 g 88.00-224.00 LV Mass Index (2D Cubed) 62 g/m2 49-115 Relative Wall Thickness (2D) 0.60 LV Fractional Shortening/Ejection Fraction 2D/MM LV EF (BP MOD) 68 % 52-72 LV EF (4C MOD) 63 % LV Stroke Volume (4C MOD) 83 cm3 LV EF (4C A-L) 64 % LV EF (2C A-L) 74 % LV EF (2C MOD) 73 % LV Fractional Shortening (2D) 31 % 25-43 LV Diastolic Volume (4C MOD) 131 ml LV EF (2D Teichholz) 58 % LV Diastolic Volume (2C MOD) 108 ml LV Diastolic Volume (BP MOD) 121 ml 62-150 LV Diastolic Volume Index (BP MOD) 34 ml/m2 34-74 LV Systolic Volume (BP MOD) 38 ml 21-61 LV Systolic Volume Index (BP MOD) 11 ml/m2 11-31 LV Diastolic Length (4C) 9.9 cm LV Systolic Length (4C) 8.5 cm Report Signatures Finalized by Salo Plaza MD on 11/23/2023 12:43 PM Vital signs in last 24 hours: Temp: [97.9 F (36.6 C)-98.1 F (36.7 C)] 97.9 F (36.6 C) Heart Rate: [66-80] 66 Resp: [18-20] 20 BP: (118-144)/(63-78) 144/78 Intake/Output last 3 shifts: I/O last 3 completed shifts: In: 1080 [P.O.:1080] Out: 3350 [Urine:3350] Intake/Output this shift: No intake/output data recorded. Scheduled Meds: Aquacel-Ag Extra Hydrofiber 1 Application Topical Daily enoxaparin 60 mg Subcutaneous 2 times per day nicotine 21 mg Transdermal Daily potassium chloride SA 40 mEq Oral Once Unna-Flex Elastic Unna Boot 1 Application Topical Daily Continuous Infusions: PRN Meds: acetaminophen aluminum-magnesium hydroxide calcium carbonate For electrolyte abnormalities subsequent to initial labs Melatonin nicotine polacrilex Ondansetron Or ondansetron hcl polyethylene glycol 3350 REVIEW OF SYSTEMS: General/Constitutional: Denies the following: change in appetite, fever, chills. Ophthalmologic: Denies the following: blurred vision, red eye. ENT: Denies the following: sore throat, swollen glands. Respiratory: Denies the following: cough, shortness of breath at rest, wheezing. Cardiovascular: Denies the following: chest pain at rest, irregular heart beat. Gastrointestinal: Denies the following: abdominal pain, diarrhea, vomiting. Podiatric: Please see HPI for further details. Skin: Denies the following: itching, rash. Neurologic: Denies the following: dizziness, headache. Objective: Neurologic: Protective sensation mildly diminished bilaterally; patient is alert and oriented Vascular: Pedal pulses barely palpable secondary to edema bilaterally; capillary refill less than 3seconds; Dermatologic: Skin temperature warm to cool from proximal to distal; skin texture atrophic with sparse hair growth; stasis dermatitis and hemosiderin staining noted Musculoskeletal: Muscle strength +5/5 bilaterally Lower Extremity exam: Full-thickness bilateral lower extremity pretibial venous ulcerations likely secondary to CHF. There is slough in wound beds. There is also an area on the posterior left lower extremity with dry eschar in the wound bed. Incision is well-approximated. Incision is clean/dry, sutures intact. There is erythema, edema, no drainage or bleeding. Extremities are soft and compressible. There is no fluctuance or crepitus on palpation. Extremities do not appear to be infected. WBC 8.1 Assessment: Bilateral lower extremity venous ulcerations with inflammation secondary to CHF; Principal Problem: Heart failure (HCC) Plan: Condition discussed at length with patient Agree with holding on antibiotic. In setting of no leukocytosis, no documented fevers Continue Aquacel AG, zinc strips, and loosely wrapped Kerlix from ankle to knee Will order arterial study to determine if there is an arterial component Recommend bed rest with bedside commode privileges only to help reduce edema Dr. Braxton will follow patient beginning 11/25/2023 Josias Coles 11/24/2023 8:05 AM * Tereso Arcos DO - 11/23/2023 4:06 PM EDT [facility] Medicine / [facility] Inpatient Progress Note 11/23/2023 Azalia Matthew 1970 [id number] Assessment/Plan: Azalia Matthew is a 53 y.o. male with a history of COPD who presented to [facility] with lower extremity edema, exertional dyspnea/orthopnea. Patient was found to have CHF and acute hypoxic failure. Patient transferred to [facility] 11/22/2023 for further management. Acute CHF: suspect diastolic heart failure. Reported worsening lower extremity edema over the last month. NT Pro BNP 315. CXR showed fluid overload. Initiated on IV diuresis in ED, continued on admit. TTE 11/22/23 with EF 60-65% Diastolic function normal Acute Hypoxic Respiratory Failure: Required 3L of NC on admit. Suspect due to above. IV diuresis asdiscussed. Wean oxygen as able. Chronic Leg Ulcers: suspect drinage due to lower extremity edema from CHF. BLED negative for DVT/SVT. S/p Vanco/Cefepime in the ED. In the absence of leukocytosis, fever will hold off on further antibiotics. ETRN following. Procalcition WNL. Hypokalemia: K 3.5. Replace with electrolyte replacement protocol as needed. COPD: per hx. No acute exacerbation on admit. Tobacco Abuse: per hx. NRT PRN. Morbid Obesity: per Body mass index is 69.17 kg/m . Code Status: Full Code DVT Prophylaxis: Lovenox Current living situation: Home Expected Disposition: Likely Home Estimated discharge date: 2-3 days Subjective: Patient seen and examined. Denies any complaints in regards to swelling or shortness of breath. Patient slightly hypoxic while sitting down. Legs examined with chronic wounds over the last month and drainage. Echo reviewed. BMP and CBC reviewed. In my medical opinion patient requires continued hospitalization due to LE wounds and PT/OT evaluation. Physical Exam: Visit Vitals BP 139/66 (Patient Position: Lying) Pulse 73 Temp 98 F (36.7 C) (Oral) Resp 18 Ht 6' (1.829 m) Wt (!) 227.1 kg (500 lb 9.6 oz) SpO2 90% BMI 67.89 kg/m General: NAD Eyes: EOMI ENT: neck supple Cardiovascular: Regular rate. Respiratory: Clear to auscultation Gastrointestinal: Soft, non tender Genitourinary: no suprapubic tenderness Musculoskeletal: No edema. Skin: warm, dry Neuro: Alert. Psych: Mood appropriate. Current Medications: enoxaparin 60 mg Subcutaneous 2 times per day Furosemide 40 mg IV Push 3 times per day nicotine 21 mg Transdermal Daily Labs, Imaging and Studies reviewed: Recent Labs Lab 11/23/23 0539 11/22/23 1405 HGB 16.3 16.9 HCT 49.8 53.1* PLT 259 279 Recent Labs Lab 11/23/23 0649 11/22/23 1405 NA 137 138 K 3.5* 3.5* CL 102 103 BUN 11 9 CREATININE 0.75 0.66 EGFR 108.6 112.9 CALCIUM 8.4 8.5 No results for input(s): ALT, AST, ALKPHOS, BILITOT in the last 168 hours. No results for input(s): INR in the last 168 hours. [facility]* Nursing - Emma Larkin LPN - 11/25/2023 6:48 PM EDT Patient resting in bed. Bilateral dressing changes changed per orders. Vitals stable. No other needs at this time. Call light in reach. [facility]07[facility] Consult note* Lizbeth Don DO - 11/25/2023 3:05 PM EDTAssociated Order(s): IP CONSULT TO VASCULAR SURGERY Vascular Consult 11/25/2023 Reason for Consult: PAD bilateral infrapopliteal disease Consulted by: Sara Ramirez MD Vascular surgery/attending note Based on size alone this patient will not be treated at this facility. I recommend transfer as an outpatient when stable to a tertiary center for evaluation. This does not need to be inpatient to inpatient edema and chronic ulcers are treated as outpatient. So he should be transferred or evaluated as an outpatient by somebody who treats morbid obese patients. We will follow as needed Chief Complaint: Heart failure (HCC) Chief Complaint Patient presents with Leg Swelling Assessment/Plan: Imp: Acute CHF Morbid obesity Bilateral lower extremity venous ulcers Lymphedema PAD? Plan: Patient's wounds look very venous/lymphedema related in nature. Secondary to abnormal arterial duplex will obtain a CTA with runoff for better visualization of arteries. CT scanner weight limit is 500 pounds. Patient weighed 499 pounds and 6.4 ounces this a.m. Diuresing patient as well as elevating legs will help. HPI: Patient is a 53 y.o. male with history of COPD and morbid obesity who presents with increasing lower extremity edema, exertional dyspnea and orthopnea. Patient was found to be in acute CHF. He was started on IV diuresis. Secondary to his leg ulcers ultrasound of his lower extremities were obtained.He was negative for DVTs bilaterally. Arterial duplex revealed significant infrapopliteal disease noted to bilateral lower extremities. Patient has no wounds to his toes nor heels. Doppler pulses areeasily found. Past Medical History: Diagnosis Date COPD (chronic obstructive pulmonary disease) (HCC) Kidney stones Past Surgical History: Procedure Laterality Date APPENDECTOMY CHOLECYSTECTOMY Medications Prior to Admission Medication Sig Dispense Refill Last Dose Naproxen Sodium (ALEVE PO) Take by mouth. No Known Allergies Social History Socioeconomic History Marital status: Spouse name: Not on file Number of children: Not on file Years of education: Not on file Highest education level: Not on file Occupational History Not on file Tobacco Use Smoking status: Every Day Current packs/day: 1.50 Types: Cigarettes Smokeless tobacco: Never Vaping Use Vaping status: Never Used Substance and Sexual Activity Alcohol use: Not Currently Drug use: Never Sexual activity: Not on file Other Topics Concern Not on file Social History Narrative Not on file Social Determinants of Health Financial Resource Strain: Not on file Food Insecurity: No Food Insecurity (11/22/2023) IP Food Inpatient social: Food: No Food Insecurity Transportation Needs: No Transportation Needs (11/22/2023) IP Transportation Inpatient social: Transportation: Unmet Transportation Needs Physical Activity: Not on file Stress: Not on file Social Connections: Not on file Intimate Partner Violence: Not At Risk (11/22/2023) Inpatient IPV Inpatient social: IPV: Not on file Housing Stability: Low Risk (11/22/2023) IP Housing Inpatient social: Housing: Medium Risk No family history on file. Review of Systems Review of Systems Unable to perform ROS: Other (patient would not wake up despite multiple verbal/physical stimuli attempts. Continued to sleep with audible snoring) No notes on file Objective: Visit Vitals BP 110/56 (Patient Position: Lying) Pulse 74 Temp 98.2 F (36.8 C) (forehead) Resp 24 Ht 6' (1.829 m) Wt (!) 226.5 kg (499 lb 6.4 oz) SpO2 90% BMI 67.73 kg/m Physical Exam Constitutional: Appearance: He is obese. HENT: Head: Normocephalic. Nose: Nose normal. Cardiovascular: Rate and Rhythm: Normal rate. Pulses: Dorsalis pedis pulses are detected w/ Doppler on the right side and detected w/ Doppler on the leftside. Posterior tibial pulses are detected w/ Doppler on the right side and detected w/ Doppler on the left side. Abdominal: General: Abdomen is protuberant. Palpations: Abdomen is soft. Musculoskeletal: General: Swelling present. Skin: General: Skin is warm. Comments: Bilateral LE ulcers with dressings intact Thick/dry skin noted to LE Data Review: Lab Results Component Value Date WHITEBLOODCE 7.1 11/25/2023 HGB 17.2 11/25/2023 HCT 52.6 (H) 11/25/2023 PLT 263 11/25/2023 ALT 71 (H) 11/25/2023 AST 62 (H) 11/25/2023 NA 139 11/25/2023 K 4.2 11/25/2023 CL 97 11/25/2023 CREATININE 0.77 11/25/2023 BUN 12 11/25/2023 CO2 37 (H) 11/25/2023 Imaging: Results for orders placed or performed during the hospital encounter of 11/22/23 XR Chest 1 View Collection Time: 11/22/23 2:25 PM Narrative EXAM: XR CHEST 1 VIEW, 11/22/2023 2:25 PM EDT INDICATION: leg swelling COMPARISON: None. TECHNIQUE: Single AP frontal view of the chest was obtained. FINDINGS: Medical devices/lines/tubes: None. Heart/mediastinum: Heart is magnified given AP technique, but is felt to be within normal limits. Pulmonary vascularity: Pulmonary vascularity is distended compatible with CHF/fluid overload. Pleura: No evidence of sizable pleural effusion on this single frontal view. No pneumothorax. Lungs: No focal airspace consolidation. Skeletal: No acute or concerning bony finding is evident. Other comments: None. Impression 1. CHF/fluid overload. Venous Duplex Lower Ext Bilateral Collection Time: 11/22/23 4:12 PM Narrative Vascular prelim: No obvious evidence of DVT/SVT in vessels well visualized of the bilateral lower extremity. Echocardiogram Complete with contrast Collection Time: 11/23/23 11:21 AM Impression 1. Technically difficult study due to poor acoustic windows. Definity used to enhance ultrasound images. 2. Left ventricular ejection fraction is normal, visually estimated at 60-65%. 3. The right ventricle is not well-visualized. 4. Valves are not well-visualized. No hemodynamically significant abnormalities identified. Patient Info Name: Azalia Matthew Age: 53 years : 1970 Gender: Male Ht: 72 in Wt: 510 lbs BSA: 3.57 m2 HR: 81 bpm BP: 119 / 73 mmHg Technical Quality: Technically difficult with Definity Patient Status: OBV Site: [facility] Current Location: [facility] [place] Exam Type: ECHOCARDIOGRAM WITH CONTRAST Study Info Indications - CHF Procedure(s) A complete two-dimensional, color flow and Doppler transthoracic echocardiogram was performed with Definity contrast to opacify the left ventricle and to improve the delineation of the left ventricle endocardial borders. Staff Primary Care Provider: None Pcp Ordering Provider: Canelo Cummins MD Cooler Conveyor Loader: Parrish Hanna [facility], RVT History/Risk Factors Tobacco Use: Current - Every Day Left Ventricle Images inadequate for left ventricular wall thickness evaluation. Left ventricular segmental wall motion is normal. The left ventricular diastolic function is normal. Left ventricular ejection fraction is normal, visually estimated at 60-65%. Right Ventricle The right ventricle is not well-visualized. Left Atrium Left atrium is not well-visualized. Right Atrium Right atrium is not well-visualized. Aortic Valve Aortic valve is not well-visualized. No aortic valve stenosis per Doppler interrogation. There is no aortic valve regurgitation. Pulmonic Valve The pulmonic valve is not well visualized. Mitral Valve The mitral valve has not well visualized. There is no mitral valve stenosis. There is no mitral valve regurgitation. Tricuspid Valve The tricuspid valve leaflets are not well visualized. There is no tricuspid valve stenosis. There is no tricuspid valve regurgitation. Unable to estimate pulmonary artery systolic pressure due to inadequate tricuspid regurgitant envelope. Pericardium/Pleural No pericardial effusion identified. Inferior Vena Cava IVC is not well-visualized. Aorta Aortic root and ascending aorta are not well-visualized. Measurements Left Ventricular Outflow Tract Name Value Normal LVOT Doppler LVOT Peak Velocity 100 cm/s LVOT Mean Gradient 2 mmHg LVOT VTI 21 cm LVOT VTI/AV VTI Ratio 0.86 Mitral Valve Name Value Normal MV Doppler MV Peak Velocity 112 cm/s MV Mean Gradient 2 mmHg MV VTI 29 cm MV Decel [place] 325 cm/s2 MV PHT 83 ms MV Area (PHT) 2.7 cm2 4.0-5.0 MV Diastolic Function MV E Peak Velocity 75 cm/s MV A Peak Velocity 67 cm/s MV E/A 1.1 MV Annular TDI MV Septal e' Velocity 13.5 cm/s MV E/e' (Septal) 5.6 MV Lateral e' Velocity 18.6 cm/s MV E/e' (Lateral) 4.0 MV e' Average 16.05 cm/s MV E/e' (Average) 4.8 Aortic Valve Name Value Normal AV Doppler AV Peak Velocity 154 cm/s AV Mean Gradient 5 mmHg AV VTI 24.80 cm AV DI (Son) 0.65 Ventricles Name Value Normal LV Dimensions 2D/MM IVS Diastolic Thickness (2D) 1.2 cm 0.6-1.0 LVID Diastole (2D) 4.5 cm 4.2-5.8 LVIW Diastolic Thickness (2D) 1.4 cm 0.6-1.0 LVID Systole (2D) 3.1 cm 2.5-4.0 LV Mass (2D Cubed) 220.29 g 88.00-224.00 LV Mass Index (2D Cubed) 62 g/m2 49-115 Relative Wall Thickness (2D) 0.60 LV Fractional Shortening/Ejection Fraction 2D/MM LV EF (BP MOD) 68 % 52-72 LV EF (4C MOD) 63 % LV Stroke Volume (4C MOD) 83 cm3 LV EF (4C A-L) 64 % LV EF (2C A-L) 74 % LV EF (2C MOD) 73 % LV Fractional Shortening (2D) 31 % 25-43 LV Diastolic Volume (4C MOD) 131 ml LV EF (2D Teichholz) 58 % LV Diastolic Volume (2C MOD) 108 ml LV Diastolic Volume (BP MOD) 121 ml 62-150 LV Diastolic Volume Index (BP MOD) 34 ml/m2 34-74 LV Systolic Volume (BP MOD) 38 ml 21-61 LV Systolic Volume Index (BP MOD) 11 ml/m2 11-31 LV Diastolic Length (4C) 9.9 cm LV Systolic Length (4C) 8.5 cm Report Signatures Finalized by Salo Plaza MD on 11/23/2023 12:43 PM Arterial Duplex Lower Extremity Bilat Collection Time: 11/24/23 12:58 PM Impression * Significant infrapopliteal artery disease noted in both legs. * Recommend physiologic arterial testing. Study Info Technical Quality: Technically Difficult Exam Type: VL LOWER EXT ARTERIAL DUPLEX - BILATERAL Indications Weak peripheral pulses - Patient Info Name: Azalia Matthew Age: 53 years : 1970 Gender: Male Ht: 72 in Wt: 500 lbs BSA: 3.54 m2 Exam Date: 11/24/2023 11:15 AM Patient Status: OBV Admit Date: 11/22/2023 A non-invasive vascular duplex imaging study of the lower extremity arteries was performed using two-dimensional evaluation, color flow and spectral Doppler analysis. Staff Primary Care Physician: None Pcp Cooler Conveyor Loader: Tamera Reina RVT Ordering Physician: Josias Coles APRN 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 Attending Physician: Lizbeth Wilson MD History/Risk Factors Obesity: Yes Tobacco Use: Current - Every Day History/Risk Factors open ulcerative wounds on bilat ankles. Right LE Arterial Findings Low color flow/spectral Doppler flow velocities with intraluminal plaque noted in the distal right anterior tibial artery consistent with subtotal occlusion. Left LE Arterial Findings Low color flow/spectral Doppler flow velocities with intraluminal plaque noted in the distal left anterior tibial artery consistent with a subtotal occlusion. Segmental BP Findings Unable to perform ABIs due to patient's low pain tolerance in bilateral ankle areas. Lower Extremity Arterial Measurements RIGHT Iliac PSV (cm/s): 184 cm/s RIGHT Iliac Waveform: Triphasic RIGHT PLATE DRILLER PSV (cm/s): 249 cm/s RIGHT PLATE DRILLER Waveform: Triphasic RIGHT PFA PSV (cm/s): 65 cm/s RIGHT PFA Waveform: Triphasic RIGHT Prox SFA PSV (cm/s): 147 cm/s RIGHT Prox SFA Waveform: Triphasic RIGHT Mid SFA PSV (cm/s): 134 cm/s RIGHT Mid SFA Waveform: Triphasic RIGHT Dist SFA PSV (cm/s): 102 cm/s RIGHT Dist SFA Waveform: Triphasic RIGHT Prox Pop PSV (cm/s): 132 cm/s RIGHT Prox Pop Waveform: Triphasic RIGHT Dist Pop PSV (cm/s): 108 cm/s RIGHT Dist Pop Waveform: Triphasic RIGHT Prox BURNER TENDER PSV (cm/s): 41 cm/s RIGHT Prox BURNER TENDER Waveform: Triphasic RIGHT Mid BURNER TENDER PSV (cm/s): 113 cm/s RIGHT Mid BURNER TENDER Waveform: Triphasic RIGHT Dist BURNER TENDER PSV (cm/s): 75 cm/s RIGHT Dist BURNER TENDER Waveform: Triphasic RIGHT Prox FLACA PSV (cm/s): 77 cm/s RIGHT Prox FLACA Waveform: Biphasic RIGHT Mid FLACA PSV (cm/s): 16 cm/s RIGHT Mid FLACA Waveform: Monophasic RIGHT Dist FLACA PSV (cm/s): 28 cm/s RIGHT Dist FLACA Waveform: Monophasic LEFT Iliac PSV (cm/s): 173 cm/s LEFT Iliac Waveform: Triphasic LEFT PLATE DRILLER PSV (cm/s): 172 cm/s LEFT PLATE DRILLER Waveform: Triphasic LEFT PFA PSV (cm/s): 266 cm/s LEFT PFA Waveform: Triphasic LEFT Prox SFA PSV (cm/s): 237 cm/s LEFT Prox SFA Waveform: Triphasic LEFT Mid SFA PSV (cm/s): 131 cm/s LEFT Mid SFA Waveform: Triphasic LEFT Dist SFA PSV (cm/s): 105 cm/s LEFT Dist SFA Waveform: Triphasic LEFT Prox Pop PSV (cm/s): 129 cm/s LEFT Prox Pop Waveform: Triphasic LEFT Dist Pop PSV (cm/s): 89 cm/s LEFT Dist Pop Waveform: Triphasic LEFT Prox BURNER TENDER PSV (cm/s): 102 cm/s LEFT Prox BURNER TENDER Waveform: Triphasic LEFT Mid BURNER TENDER PSV (cm/s): 59 cm/s LEFT Mid BURNER TENDER Waveform: Triphasic LEFT Dist BURNER TENDER PSV (cm/s): 65 cm/s LEFT Dist BURNER TENDER Waveform: Triphasic LEFT Prox FLACA PSV (cm/s): 82 cm/s LEFT Prox FLACA Waveform: Biphasic LEFT Mid FLACA PSV (cm/s): 113 cm/s LEFT Mid FLACA Waveform: Monophasic LEFT Dist FLACA PSV (cm/s): 51 cm/s LEFT Dist FLACA Waveform: Monophasic Report Signatures Finalized by Montse Plasencia DO on 11/24/2023 01:22 PM Doppler Findings Triphasic waveform demonstrated in the right femoral artery, superficial femoral artery, popliteal artery and posterior tibial artery. Monophasic waveform demonstrated in the right dorsalis pedis artery consistent with moderate peripheral vascular disease. Triphasic waveform demonstrated in the left femoral artery, superficial femoral artery, popliteal artery and posterior tibial artery. Monophasic waveform demonstrated in the left dorsalis pedis artery consistent with moderate peripheral vascular disease. Very difficult to visualize posterior tibial and anterior tibial arteries due to patient's body habitus and tissue changes bilaterally. Doppler RIGHT Femoral : Triphasic RIGHT Superficial Femoral : Triphasic RIGHT Popliteal : Triphasic RIGHT Posterior Tibial : Triphasic RIGHT Dorsalis Pedis : Monophasic LEFT Femoral : Triphasic LEFT Superficial Femoral : Triphasic LEFT Popliteal : Triphasic LEFT Posterior Tibial : Triphasic LEFT Dorsalis Pedis : Monophasic T [facility] Work Phone: [phone]) 756-894207-26-2024 Consult note* Lizbeth Don DO - 11/25/2023 3:05 PM EDTAssociated Order(s): IP CONSULT TO VASCULAR SURGERY Vascular Consult 11/25/2023 Reason for Consult: PAD bilateral infrapopliteal disease Consulted by: Sara Ramirez MD Vascular surgery/attending note Based on size alone this patient will not be treated at this facility. I recommend transfer as an outpatient when stable to a tertiary center for evaluation. This does not need to be inpatient to inpatient edema and chronic ulcers are treated as outpatient. So he should be transferred or evaluated as an outpatient by somebody who treats morbid obese patients. We will follow as needed Chief Complaint: Heart failure (HCC) Chief Complaint Patient presents with Leg Swelling Assessment/Plan: Imp: Acute CHF Morbid obesity Bilateral lower extremity venous ulcers Lymphedema PAD? Plan: Patient's wounds look very venous/lymphedema related in nature. Secondary to abnormal arterial duplex will obtain a CTA with runoff for better visualization of arteries. CT scanner weight limit is 500 pounds. Patient weighed 499 pounds and 6.4 ounces this a.m. Diuresing patient as well as elevating legs will help. HPI: Patient is a 53 y.o. male with history of COPD and morbid obesity who presents with increasing lower extremity edema, exertional dyspnea and orthopnea. Patient was found to be in acute CHF. He was started on IV diuresis. Secondary to his leg ulcers ultrasound of his lower extremities were obtained.He was negative for DVTs bilaterally. Arterial duplex revealed significant infrapopliteal disease noted to bilateral lower extremities. Patient has no wounds to his toes nor heels. Doppler pulses areeasily found. Past Medical History: Diagnosis Date COPD (chronic obstructive pulmonary disease) (HCC) Kidney stones Past Surgical History: Procedure Laterality Date APPENDECTOMY CHOLECYSTECTOMY Medications Prior to Admission Medication Sig Dispense Refill Last Dose Naproxen Sodium (ALEVE PO) Take by mouth. No Known Allergies Social History Socioeconomic History Marital status: Spouse name: Not on file Number of children: Not on file Years of education: Not on file Highest education level: Not on file Occupational History Not on file Tobacco Use Smoking status: Every Day Current packs/day: 1.50 Types: Cigarettes Smokeless tobacco: Never Vaping Use Vaping status: Never Used Substance and Sexual Activity Alcohol use: Not Currently Drug use: Never Sexual activity: Not on file Other Topics Concern Not on file Social History Narrative Not on file Social Determinants of Health Financial Resource Strain: Not on file Food Insecurity: No Food Insecurity (11/22/2023) IP Food Inpatient social: Food: No Food Insecurity Transportation Needs: No Transportation Needs (11/22/2023) IP Transportation Inpatient social: Transportation: Unmet Transportation Needs Physical Activity: Not on file Stress: Not on file Social Connections: Not on file Intimate Partner Violence: Not At Risk (11/22/2023) Inpatient IPV Inpatient social: IPV: Not on file Housing Stability: Low Risk (11/22/2023) IP Housing Inpatient social: Housing: Medium Risk No family history on file. Review of Systems Review of Systems Unable to perform ROS: Other (patient would not wake up despite multiple verbal/physical stimuli attempts. Continued to sleep with audible snoring) No notes on file Objective: Visit Vitals BP 110/56 (Patient Position: Lying) Pulse 74 Temp 98.2 F (36.8 C) (forehead) Resp 24 Ht 6' (1.829 m) Wt (!) 226.5 kg (499 lb 6.4 oz) SpO2 90% BMI 67.73 kg/m Physical Exam Constitutional: Appearance: He is obese. HENT: Head: Normocephalic. Nose: Nose normal. Cardiovascular: Rate and Rhythm: Normal rate. Pulses: Dorsalis pedis pulses are detected w/ Doppler on the right side and detected w/ Doppler on the leftside. Posterior tibial pulses are detected w/ Doppler on the right side and detected w/ Doppler on the left side. Abdominal: General: Abdomen is protuberant. Palpations: Abdomen is soft. Musculoskeletal: General: Swelling present. Skin: General: Skin is warm. Comments: Bilateral LE ulcers with dressings intact Thick/dry skin noted to LE Data Review: Lab Results Component Value Date WHITEBLOODCE 7.1 11/25/2023 HGB 17.2 11/25/2023 HCT 52.6 (H) 11/25/2023 PLT 263 11/25/2023 ALT 71 (H) 11/25/2023 AST 62 (H) 11/25/2023 NA 139 11/25/2023 K 4.2 11/25/2023 CL 97 11/25/2023 CREATININE 0.77 11/25/2023 BUN 12 11/25/2023 CO2 37 (H) 11/25/2023 Imaging: Results for orders placed or performed during the hospital encounter of 11/22/23 XR Chest 1 View Collection Time: 11/22/23 2:25 PM Narrative EXAM: XR CHEST 1 VIEW, 11/22/2023 2:25 PM EDT INDICATION: leg swelling COMPARISON: None. TECHNIQUE: Single AP frontal view of the chest was obtained. FINDINGS: Medical devices/lines/tubes: None. Heart/mediastinum: Heart is magnified given AP technique, but is felt to be within normal limits. Pulmonary vascularity: Pulmonary vascularity is distended compatible with CHF/fluid overload. Pleura: No evidence of sizable pleural effusion on this single frontal view. No pneumothorax. Lungs: No focal airspace consolidation. Skeletal: No acute or concerning bony finding is evident. Other comments: None. Impression 1. CHF/fluid overload. Venous Duplex Lower Ext Bilateral Collection Time: 11/22/23 4:12 PM Narrative Vascular prelim: No obvious evidence of DVT/SVT in vessels well visualized of the bilateral lower extremity. Echocardiogram Complete with contrast Collection Time: 11/23/23 11:21 AM Impression 1. Technically difficult study due to poor acoustic windows. Definity used to enhance ultrasound images. 2. Left ventricular ejection fraction is normal, visually estimated at 60-65%. 3. The right ventricle is not well-visualized. 4. Valves are not well-visualized. No hemodynamically significant abnormalities identified. Patient Info Name: Azalia Matthew Age: 53 years : 1970 Gender: Male Ht: 72 in Wt: 510 lbs BSA: 3.57 m2 HR: 81 bpm BP: 119 / 73 mmHg Technical Quality: Technically difficult with Definity Patient Status: OBV Site: [facility] Current Location: [facility] [place] Exam Type: ECHOCARDIOGRAM WITH CONTRAST Study Info Indications - CHF Procedure(s) A complete two-dimensional, color flow and Doppler transthoracic echocardiogram was performed with Definity contrast to opacify the left ventricle and to improve the delineation of the left ventricle endocardial borders. Staff Primary Care Provider: None Pcp Ordering Provider: Canelo Cummins MD Cooler Conveyor Loader: Parrish Hanna [facility], RVT History/Risk Factors Tobacco Use: Current - Every Day Left Ventricle Images inadequate for left ventricular wall thickness evaluation. Left ventricular segmental wall motion is normal. The left ventricular diastolic function is normal. Left ventricular ejection fraction is normal, visually estimated at 60-65%. Right Ventricle The right ventricle is not well-visualized. Left Atrium Left atrium is not well-visualized. Right Atrium Right atrium is not well-visualized. Aortic Valve Aortic valve is not well-visualized. No aortic valve stenosis per Doppler interrogation. There is no aortic valve regurgitation. Pulmonic Valve The pulmonic valve is not well visualized. Mitral Valve The mitral valve has not well visualized. There is no mitral valve stenosis. There is no mitral valve regurgitation. Tricuspid Valve The tricuspid valve leaflets are not well visualized. There is no tricuspid valve stenosis. There is no tricuspid valve regurgitation. Unable to estimate pulmonary artery systolic pressure due to inadequate tricuspid regurgitant envelope. Pericardium/Pleural No pericardial effusion identified. Inferior Vena Cava IVC is not well-visualized. Aorta Aortic root and ascending aorta are not well-visualized. Measurements Left Ventricular Outflow Tract Name Value Normal LVOT Doppler LVOT Peak Velocity 100 cm/s LVOT Mean Gradient 2 mmHg LVOT VTI 21 cm LVOT VTI/AV VTI Ratio 0.86 Mitral Valve Name Value Normal MV Doppler MV Peak Velocity 112 cm/s MV Mean Gradient 2 mmHg MV VTI 29 cm MV Decel [place] 325 cm/s2 MV PHT 83 ms MV Area (PHT) 2.7 cm2 4.0-5.0 MV Diastolic Function MV E Peak Velocity 75 cm/s MV A Peak Velocity 67 cm/s MV E/A 1.1 MV Annular TDI MV Septal e' Velocity 13.5 cm/s MV E/e' (Septal) 5.6 MV Lateral e' Velocity 18.6 cm/s MV E/e' (Lateral) 4.0 MV e' Average 16.05 cm/s MV E/e' (Average) 4.8 Aortic Valve Name Value Normal AV Doppler AV Peak Velocity 154 cm/s AV Mean Gradient 5 mmHg AV VTI 24.80 cm AV DI (Son) 0.65 Ventricles Name Value Normal LV Dimensions 2D/MM IVS Diastolic Thickness (2D) 1.2 cm 0.6-1.0 LVID Diastole (2D) 4.5 cm 4.2-5.8 LVIW Diastolic Thickness (2D) 1.4 cm 0.6-1.0 LVID Systole (2D) 3.1 cm 2.5-4.0 LV Mass (2D Cubed) 220.29 g 88.00-224.00 LV Mass Index (2D Cubed) 62 g/m2 49-115 Relative Wall Thickness (2D) 0.60 LV Fractional Shortening/Ejection Fraction 2D/MM LV EF (BP MOD) 68 % 52-72 LV EF (4C MOD) 63 % LV Stroke Volume (4C MOD) 83 cm3 LV EF (4C A-L) 64 % LV EF (2C A-L) 74 % LV EF (2C MOD) 73 % LV Fractional Shortening (2D) 31 % 25-43 LV Diastolic Volume (4C MOD) 131 ml LV EF (2D Teichholz) 58 % LV Diastolic Volume (2C MOD) 108 ml LV Diastolic Volume (BP MOD) 121 ml 62-150 LV Diastolic Volume Index (BP MOD) 34 ml/m2 34-74 LV Systolic Volume (BP MOD) 38 ml 21-61 LV Systolic Volume Index (BP MOD) 11 ml/m2 11-31 LV Diastolic Length (4C) 9.9 cm LV Systolic Length (4C) 8.5 cm Report Signatures Finalized by Salo Plaza MD on 11/23/2023 12:43 PM Arterial Duplex Lower Extremity Bilat Collection Time: 11/24/23 12:58 PM Impression * Significant infrapopliteal artery disease noted in both legs. * Recommend physiologic arterial testing. Study Info Technical Quality: Technically Difficult Exam Type: VL LOWER EXT ARTERIAL DUPLEX - BILATERAL Indications Weak peripheral pulses - Patient Info Name: Azalia Matthew Age: 53 years : 1970 Gender: Male Ht: 72 in Wt: 500 lbs BSA: 3.54 m2 Exam Date: 11/24/2023 11:15 AM Patient Status: OBV Admit Date: 11/22/2023 A non-invasive vascular duplex imaging study of the lower extremity arteries was performed using two-dimensional evaluation, color flow and spectral Doppler analysis. Staff Primary Care Physician: None Pcp Cooler Conveyor Loader: Tamera Reina RVT Ordering Physician: Josias Coles APRN SPR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 Attending Physician: Lizbeth Wilson MD History/Risk Factors Obesity: Yes Tobacco Use: Current - Every Day History/Risk Factors open ulcerative wounds on bilat ankles. Right LE Arterial Findings Low color flow/spectral Doppler flow velocities with intraluminal plaque noted in the distal right anterior tibial artery consistent with subtotal occlusion. Left LE Arterial Findings Low color flow/spectral Doppler flow velocities with intraluminal plaque noted in the distal left anterior tibial artery consistent with a subtotal occlusion. Segmental BP Findings Unable to perform ABIs due to patient's low pain tolerance in bilateral ankle areas. Lower Extremity Arterial Measurements RIGHT Iliac PSV (cm/s): 184 cm/s RIGHT Iliac Waveform: Triphasic RIGHT PLATE DRILLER PSV (cm/s): 249 cm/s RIGHT PLATE DRILLER Waveform: Triphasic RIGHT PFA PSV (cm/s): 65 cm/s RIGHT PFA Waveform: Triphasic RIGHT Prox SFA PSV (cm/s): 147 cm/s RIGHT Prox SFA Waveform: Triphasic RIGHT Mid SFA PSV (cm/s): 134 cm/s RIGHT Mid SFA Waveform: Triphasic RIGHT Dist SFA PSV (cm/s): 102 cm/s RIGHT Dist SFA Waveform: Triphasic RIGHT Prox Pop PSV (cm/s): 132 cm/s RIGHT Prox Pop Waveform: Triphasic RIGHT Dist Pop PSV (cm/s): 108 cm/s RIGHT Dist Pop Waveform: Triphasic RIGHT Prox BURNER TENDER PSV (cm/s): 41 cm/s RIGHT Prox BURNER TENDER Waveform: Triphasic RIGHT Mid BURNER TENDER PSV (cm/s): 113 cm/s RIGHT Mid BURNER TENDER Waveform: Triphasic RIGHT Dist BURNER TENDER PSV (cm/s): 75 cm/s RIGHT Dist BURNER TENDER Waveform: Triphasic RIGHT Prox FLACA PSV (cm/s): 77 cm/s RIGHT Prox FLACA Waveform: Biphasic RIGHT Mid FLACA PSV (cm/s): 16 cm/s RIGHT Mid FLACA Waveform: Monophasic RIGHT Dist FLACA PSV (cm/s): 28 cm/s RIGHT Dist FLACA Waveform: Monophasic LEFT Iliac PSV (cm/s): 173 cm/s LEFT Iliac Waveform: Triphasic LEFT PLATE DRILLER PSV (cm/s): 172 cm/s LEFT PLATE DRILLER Waveform: Triphasic LEFT PFA PSV (cm/s): 266 cm/s LEFT PFA Waveform: Triphasic LEFT Prox SFA PSV (cm/s): 237 cm/s LEFT Prox SFA Waveform: Triphasic LEFT Mid SFA PSV (cm/s): 131 cm/s LEFT Mid SFA Waveform: Triphasic LEFT Dist SFA PSV (cm/s): 105 cm/s LEFT Dist SFA Waveform: Triphasic LEFT Prox Pop PSV (cm/s): 129 cm/s LEFT Prox Pop Waveform: Triphasic LEFT Dist Pop PSV (cm/s): 89 cm/s LEFT Dist Pop Waveform: Triphasic LEFT Prox BURNER TENDER PSV (cm/s): 102 cm/s LEFT Prox BURNER TENDER Waveform: Triphasic LEFT Mid BURNER TENDER PSV (cm/s): 59 cm/s LEFT Mid BURNER TENDER Waveform: Triphasic LEFT Dist BURNER TENDER PSV (cm/s): 65 cm/s LEFT Dist BURNER TENDER Waveform: Triphasic LEFT Prox FLACA PSV (cm/s): 82 cm/s LEFT Prox FLACA Waveform: Biphasic LEFT Mid FLACA PSV (cm/s): 113 cm/s LEFT Mid FLACA Waveform: Monophasic LEFT Dist FLACA PSV (cm/s): 51 cm/s LEFT Dist FLACA Waveform: Monophasic Report Signatures Finalized by Montse Plasencia DO on 11/24/2023 01:22 PM Doppler Findings Triphasic waveform demonstrated in the right femoral artery, superficial femoral artery, popliteal artery and posterior tibial artery. Monophasic waveform demonstrated in the right dorsalis pedis artery consistent with moderate peripheral vascular disease. Triphasic waveform demonstrated in the left femoral artery, superficial femoral artery, popliteal artery and posterior tibial artery. Monophasic waveform demonstrated in the left dorsalis pedis artery consistent with moderate peripheral vascular disease. Very difficult to visualize posterior tibial and anterior tibial arteries due to patient's body habitus and tissue changes bilaterally. Doppler RIGHT Femoral : Triphasic RIGHT Superficial Femoral : Triphasic RIGHT Popliteal : Triphasic RIGHT Posterior Tibial : Triphasic RIGHT Dorsalis Pedis : Monophasic LEFT Femoral : Triphasic LEFT Superficial Femoral : Triphasic LEFT Popliteal : Triphasic LEFT Posterior Tibial : Triphasic LEFT Dorsalis Pedis : Monophasic documented in this [facility]07-26-2024 Plan of care note* D/C Planning - Alannah Crane RN - 11/25/2023 11:18 AM EDT Per rounds patient has vascular consult based on test results of yesterday. Patient will need a PCPor to go to [facility] [place] for follow up labs after discharge. Discharge date to be determined after vascularsees the patient. 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 Oxygen being weaned and downto 1L as of rounds. CM following. [facility] Work Phone: [phone] 177-236007-25-2024 Nurse Note* Nursing - Lore Walter RN - 11/24/2023 6:34 AM EDT Patient has rested at intervals this shift. O2 applied at 2L for desats to 83 while sleeping. Sats maintained on 2L. Dressing change to BLE per orders. PRN oxycodone effective for pain. Lovenox VTE. Continent to BSC. Call light in easy reach, able to verbalize needs. Laserlike [id number] Nurse Note* Nursing - Lore Walter RN - 11/23/2023 9:35 PM EDT Dressing change attempted as ordered. Patient complains of 10/10 burning pain to BLE with cleansingof BLE with soap and water and application of zinc strips. Dr. Denney notified and orders received for one time dose of oxycodone Laserlike [id number] Nurse Note* ET Notes - Lianne Mendenhall RN - 11/23/2023 3:03 PM EDT Images from the original note were not included. 11/23/23 1400 Wound 11/22/23 Pretibial Distal;Right Wound Occurrence Date : 11/22/23 Present on Original Admission: Yes Location: Pretibial Wound Location Orientation: Distal;Right Wound Image Site Assessment/Wound Bed Fragile;Full thickness;Red;Slough (Wound base primarily moist red, scant amount yellow slough) Michaela-Wound Assessment Burgundy;Dry;Edematous;Fragile (Periwound tissue dusky red/burgundy, edematous, peeling scale like tissue.) Margins Attached edges;Dark edges;Defined edges;Irregular shaped Wound Length (cm) 6.1 cm Wound Width (cm) 5 cm Wound Depth (cm) 0.1 cm Wound Surface Area (cm^2) 30.5 cm^2 Wound Volume (cm^3) 3.05 cm^3 Dressing Status N/A open to air;Changed (Rec Aquacel ag to wound, unna zinc strips loosely wrapped from ankle to knee followed by kerlix.) Wound Care Cleansed with Normal Saline Drainage Amount Small Drainage Description Yellow Treatment/Interventions Cleansed;Elevate heels;Site care Closure Not approximated Wound 11/22/23 Pretibial Distal;Left Wound Occurrence Date : 11/22/23 Present on Original Admission: Yes Location: Pretibial Wound Location Orientation: Distal;Left Wound Image Site Assessment/Wound Bed Fragile;Full thickness;Red;Slough;Yellow (Base 50% moist red, 50% adherent yellow slough) Michaela-Wound Assessment Burgundy;Dry;Edematous;Fragile (Tissue dusky red/burgundy discolored, edematous, peeling scale like tissue) Margins Attached edges;Dark edges;Defined edges;Irregular shaped Wound Length (cm) 4.5 cm Wound Width (cm) 5 cm Can you measure the wound depth? No - Unable to determine depth Wound Surface Area (cm^2) 22.5 cm^2 Dressing Status N/A open to air;Changed (Rec Aquacel ag to wound, unna zinc strips loosely wrapped from ankle to knee followed by kerlix) Wound Care Cleansed with Normal Saline Drainage Amount Moderate Drainage Description Yellow;Foul Purulent Treatment/Interventions Cleansed;Elevate heels;Site care Closure Not approximated ET Note: Received consult regarding Non-healing wound. Patient admitted due to Heart Failure, chartreviewed. 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 Patient has not seen a Drywall Taper or had any venous/arterial testing. Patient seen in room, see above LDA's for wound images, measurements, anddescriptions. Patient bilateral lower legs are edematous, dusky red/burgundy discoloration noted primarily at the ankle to lower calf. Tissue with brown, dry discolored scale like appearance. Scattered dry red scab covered wounds noted primarily to the left lower leg. Bilateral feet noted to have thick, dry cracking tissue as well. Recommend Aquacel ag to the open wounds on the bilateral lower legs to aid in drainage absorption, provide antimicrobial properties, and aid in pain reduction with dressing changes. Over this recommend Unna zinc strips loosely wrapped from ankle to knee followed bykerlix. Zinc will aid in drying seeping tissue and will provide tissue comfort and relief from itching. Am concerned with patient bilateral lower leg edema, wounds. Patient will likely require compression however, do NOT recommend at this time given CHF. Also recommend Dermagran B to the bilateral feet to aid in providing moisture and aid in healing cracked tissue. Recommend Podiatry consult to fu rther assess the bilateral lower legs and for continued care after discharge. Attempted to call physician, unable to leave message. Will pend order for wound care, discussed with primary RN. Thank you for the consult. [facility] Work Phone: [phone] Plan of care note* D/C Planning - Abbey Vital Social Worker - 11/23/2023 2:48 PM EDT CM Initial Discharge Planning Azalia Matthew 1970 Met with Azalia Matthew at Bedside. 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 Comes home to visit his aunt. 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 uses a cane. Denies agency involvement. Has no PCP. Uses [facility]. Denies all CM needs. DCP home with self care. Initial Discharge Planning Reason for Referral: Routine Discharge Plan Obtained Information From: Patient, Chart Family contact name: Juliana Matthew Family Contact Number: [phone] Living Arrangements: (semi truck) Capacity for Self-Care of ADLs: Independent Are family members/care delivery providers able to provide care necessary upon discharge without environmental modification: No New functional deficits: Unable to assess Physical Therapy Screening: Unable to assess Occupational therapy screening: Unable to assess Speech therapy screening: Unable to assess Home Environment: Patient's home is Single Level Is patient diabetic?: No Agency Involvement: None Does Patient Currently Use DME: Yes DME Currently used by patient in home: Cane Have you served in armMRO services: No Who will provide transportation?: Other, Friend Barriers to Discharge: None Discharge Plans Complete: Yes Discharge Planning Needs Pre-cert started: Not applicable Pre-cert complete: Not applicable Anticipated Discharge Plan: Home or Self Care Med Outreach: No Med Precert needed: No Home Care Services: (declined need) Mode of Transportation: Car Barriers to Discharge: None Discharge plan developed in collaboration with: Patient, Attempted with Family/Caregiver Initial Discharge plan mutually acceptable to patient/family/field nurse case manager?: Yes % Social Rodrigo Ohara The patient has the right to participate in the development and implementation of his plan of care.The patient or his territory service representative (as allowed under State law) has the right to make informed decisions regarding his discharge plan. The patient's right includes being involved in care planning and treatment. [facility] Work Phone: [phone]) 893-970507-24-2024 Progress note* Rehab Therapies - Jerel [id number] OT - 11/23/2023 11:14 AM EDT Images from the original note were not included. [facility] OT Initial Evaluation Name: Azalia Matthew Date of : 1970 Admission Date: 11/22/2023 OT Recommendations Recommendations/Continuum of Care: No further acute therapy needed Feeding Level of Assistance: Independent Grooming Level of Assistance: Independent UE Bathing Level of Assistance: Independent LE Bathing Level of Assistance: Modified independent UE Dressing Level of Assistance: Independent LE Dressing Level of Assistance: Modified independent Toileting Level of Assistance: Modified independent Overall Cognitive Status: A&O X 4 Barriers to discharge: None AM-PAC Raw Score: 24 OT Assessment Assessment Prognosis: Good Problem List: Pain limiting mobility Barriers to discharge: None Safety Devices/Restraints Safety Devices Safety Devices in place: Not applicable OT Plan OT Plan OT Frequency: One-time visit Past Medical History: has a past medical history of COPD (chronic obstructive pulmonary disease) (HCC) and Kidney stones. Past Surgical History: has a past surgical history that includes Appendectomy and CHOLECYSTECTOMY. OT Frequency: One-time visit Documentation Type Documentation Type Documentation type: Initial Eval Patient/Family Goals Patient/Family Goal Patient/Family Goal: Get the swelling and pain in my legs down. Restrictions/Precautions Restrictions/Precautions Right Lower Extremity Weight Bearing: No restrictions Left Lower Extremity Weight Bearing: No restrictions Fall Risk: Yes Fall Risk - attributed to: Deconditioned Comments: Pain in legs Required Braces & Orthoses Braces/Orthoses Required Braces or Orthoses?: No Cognition Cognition Overall Cognitive Status: A&O X 4 Home Living Home Living Type of Home: Mobile home Lives With: Alone Home Layout: One level Home Access: Stairs to enter without rails/posts Home Adaptive Equipment: Single point cane Information Provided By: Patient Prior Function Prior Function Level of [place]: Independent with ADLs, Independent with functional mobility, Independent with homemaking from ambulatory level Additional Comments: (Patient independent prior to admission. 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 Eased pain when legs are elevated to 4/10. Transfers Transfer Transfer Level of Assistance: Stand by assistance Transfer From: Sit Transfer Type: To and from Transfer To: Stand Technique: Sit to stand, Stand to sit Transfer Device: Single point cane Hand Dominance Hand Dominance Hand Dominance: Right ROM LUE ROM (degrees) LUE ROM: WFL for ADL activity RUE ROM (degrees) RUE ROM: WFL for ADL activity Strength/Tone LUE Strength Overall Strength: Proximal 5/5 - Normal, Distal 5/5 - Normal RUE Strength Overall Strength: Proximal 5/5 - Normal, Distal 5/5 - Normal Tone LUE LUE Tone: Normotonic Tone RUE RUE Tone: Normotonic Edema In LE right LE 1+, left LE 2+ Vision Vision - Basic Assessment Prior Vision: Wears glasses only for reading Sensation/Coordination Sensation RUE Light Touch: Grossly intact LUE Light Touch: Grossly intact RUE Sharp/Dull: Grossly intact LUE Sharp/Dull: Grossly intact Coordination Movements Are Fluid And Coordinated: Yes ADL Treatments (Feeding) ADL Treatment - Feeding Feeding Level of Assistance: Independent ADL Treatments (Grooming) ADL Treatment - Grooming Grooming Level of Assistance: Independent ADL Treatments (Bathing) ADL Treatment - Bathing UE Bathing Level of Assistance: Independent LE Bathing Level of Assistance: Modified independent ADL Treatments (Dressing) ADL Treatment - Dressing UE Dressing Level of Assistance: Independent LE Dressing Level of Assistance: Modified independent ADL Treatments (Toileting) ADL Treatment - Toileting Toileting Level of Assistance: Modified independent Education Education Patient Education Completed With: Patient Role of Therapy and Goals Reviewed: Yes, Patient/Family verbalizes understanding Restrictions/Precautions Reviewed: Yes, Patient/Family verbalizes understanding Safety Reviewed: Yes, Patient/Family verbalizes understanding Therapy Schedule Reviewed: N/A AM-PAC Eating meals?: None Personal grooming such as: brushing teeth?: None Putting on and taking off regular upper body clothing?: None Putting on and taking off regular lower body clothing?: None Toileting: which includes using toilet, bedpan, or urinal?: None Bathing: including washing, rinsing, drying?: None AM-PAC Raw Score: 24 AM-PAC Scale Score: 57.54 AM-PAC CMS 0-100% Score: 0.00% AM-PAC CMS Modifier: CH Plan of Care & Goals Evaluation only. No further acute care needed. Patient/Family Goal Patient/Family Goal: Get the swelling and pain in my legs down. General Chart Reviewed: Yes Time spent with patient/family/caregiver: 34 Minutes Family / Caregiver Present: No Comments: Occupational Therapy evaluation completed this date. Patient demonstrates ability to perform ADL with Mod I due to body habitus. Mobility is limited by pain and edema in legs at this time resulting in need for extra time. Patient is at his functional baseline at this time and no further acute OT services are needed. End of Therapy Session: Resting in bed, Lower extremities elevated This note stands as the current Discharge Summary upon patient discharge from the hospital or completion of Occupational Therapy Plan. Signature: Yvonne Beltrán OT November 23, 2023 [facility]07-24-2024 Plan of care note* D/C Planning - Abbey [employer] Youth Supervisor - 11/23/2023 11:10 AM EDT Attempted to meet with patient. OTR in room with patient at this time. SKIDWAY WORKER will attempt again at a later time. [facility]07-24-2024 Progress note* Rehab Therapies - Dalila Reynoso PT - 11/23/2023 10:05 AM EDT Images from the original note were not included. PT Initial Evaluation Name: Azalia Matthew Date of : 1970 Admission Date: 11/22/2023 PT Recommendation Recommendations/Continuum of Care: No further therapy needed Comments: PT eval completed. Pt able to perform mobility with SBA this date. Did ambulate to/from door. Pt is primarily limited by LE pain and required increased time d/t same. No further acute PT needs, pt is at his baseline. Ambulation Level of Assistance: Stand by assistance Ambulation Distance: 20 feet Equipment Recommended: Patient has all needed equipment Barriers to discharge: None AM-PAC Raw Score: 20 Requires PT Follow Up: No PT Plan PT Frequency: One time visit PT Evaluation/Assessment History of present illness:Principal Problem: Heart failure (HCC) Past Medical History: has a past medical history of COPD (chronic obstructive pulmonary disease) (HCC) and Kidney stones. Past Surgical History: has a past surgical history that includes Appendectomy and CHOLECYSTECTOMY. Physical Therapist Physical Therapist Evaluating Physical Therapist: TP Consent Consent Informed consent: Yes Comments: Pt admitted for heart failure, bilat LE swelling and redness. Pt states that he is limited by his pain at this time. Patient's Goal Patient's Goal Patient's Therapy Goal(s): agreeable to participate in eval. Restrictions/Precautions Restrictions/Precautions Right Lower Extremity Weight Bearing: No restrictions Left Lower Extremity Weight Bearing: No restrictions Fall Risk: Yes Fall Risk - attributed to: Deconditioned Comments: Pain Braces/Orthoses Braces/Orthoses Required Braces or Orthoses?: No Cognition Cognition Level of Consciousness: Alert/Awake;Oriented Orientation Level: Oriented X4 Cognition: Follows commands Speech/Language: Clear, meaningful and understandable Home Living Home Living Type of Home: Trailer Lives With: Alone Home Layout: One level Home Access: Stairs to enter without rails/posts Home Adaptive Equipment: Single point cane Information Provided By: Patient Prior Function Prior Function Level of [place]: Independent with ADLs;Independent with functional mobility;Independent with homemaking from ambulatory level Additional Comments: 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 Physical Therapy Vitals Physical Therapy Vitals Additional PT Vitals Comments: SpO2 89-90. Nurse OK to take pt off supplemental oxygen. PT Pain Assessment PT Pain Assessment Is Patient Having Pain?: No LE ROM Assessment LE ROM Assessment RLE General ROM: WFL LLE General ROM: WFL Strength RLE Strength RLE Strength RLE: WFL Strength LLE Strength LLE Strength LLE: WFL Bed Mobility Bed Mobility Bed Mobility Level of Assistance: Stand by assistance Bed Mobility From: Supine Bed Mobility Type: To and from Bed Mobility To: Short sit Bed Mobility Therapy Interventions: Head of Bed raised;Bedrail used to assist self to sitting or tosupine Transfer Transfer Transfer Level of Assistance: Stand by assistance Transfer From: Sit Transfer Type: To and from Transfer To: Stand Technique: Sit to stand;Stand to sit Transfer Device: Single point cane Ambulation Ambulation Weight Bearing Status: No restrictions Ambulation Distance: 20 feet Ambulation Level of Assistance: Stand by assistance Surface: Level tile Device: Single point cane Quality of Gait: Decreased myra;Discontinuous steps Comments: Antalgic, increased lateral sway. Stairs Stairs Stairs?: No Wheelchair Mobility Wheelchair Mobility Wheelchair?: No Balance Balance Sitting - Static Supported: Good;+ Sitting - Static Unsupported: Good;+ Sitting - Dynamic Supported: Good;+ Sitting - Dynamic Unsupported: Good;+ Standing - Static Supported: Good Standing - Dynamic Supported: Good Activity Tolerance Activity Tolerance Activity Tolerance: Patient limited by pain Education Education Patient Education Completed With: Patient Role of Therapy and Goals Reviewed: Yes;Patient/Family verbalizes understanding Restrictions/Precautions Reviewed: Yes;Patient/Family verbalizes understanding Safety Reviewed: Yes;Patient/Family verbalizes understanding Therapy Schedule Reviewed: N/A Comments: Educated pt on source of pain likely being from the inflammation, swelling, redness in LEs and open wounds and benefit of wound care. Did palpate on R LE and increased pain at the lateral malleolus and anterior ankle. Assessment Assessment Prognosis: Good Problem List: Pain limiting mobility Barriers to discharge: None AM-PAC Mobility Scores AM-PAC Mobility Scores AM-PAC Raw Score: 20 AM-PAC Scale Score: 43.99 AM-PAC 0-100% CMS Score: 33.32% AM-PAC CMS Modifier: CJ General General Chart Reviewed: Yes Time spent with patient/family/caregiver: 20 Minutes Family / Caregiver Present: No End of Therapy Session: Resting in bed;Patient's comfort assured;Call light in reach This note stands as the current Discharge Summary upon patient discharge from the hospital or completion of Physical Therapy Plan. Signature: Dalila Reynoso PT November 23, 2023 [facility]07-24-2024 Nurse Note* Nursing - Argenis Roberson LPN - 11/23/2023 6:17 AM EDT Patient slept for most of this shift. RR easy and unlabored. Call light within reach, no needs at this time. [facility]07-23-2024 Nurse Note* Nursing - Lyndsay Kim MST - 11/22/2023 6:00 PM EDT MST tried to get a weight at this time bed scale wasn't working and patient states he can't stand on the standing scale at this time due to having leg pain [facility]07-23-2024 History and physical note* Adan Zaman PA - 11/22/2023 5:43 PM EDT Images from the original note were not included. [facility] 11/22/23 Azalia Matthew 1970 [id number] Assessment/Plan: Azalia Matthew is a 53 y.o. male with a history of COPD who presented to [facility] with lower extremity edema, exertional dyspnea/orthopnea. Patient was found to have CHF and acute hypoxic failure. Patient transferred to [facility] 11/22/2023 for further management. Acute CHF: suspect diastolic heart failure. Reported worsening lower extremity edema over the last month. NT Pro BNP 315. CXR showed fluid overload. Initiated on IV diuresis in ED, continued on admit. TTE 11/22/23 pending. Acute Hypoxic Respiratory Failure: Required 3L of NC on admit. Suspect due to above. IV diuresis asdiscussed. Wean oxygen as able. Chronic Leg Ulcers: suspect drinage due to lower extremity edema from CHF. BLED negative for DVT/SVT. S/p Vanco/Cefepime in the ED. In the absence of leukocytosis, fever will hold off on further antibiotics. ETRN consulted. Hypokalemia: K 3.5. Replace with electrolyte replacement protocol as needed. COPD: per hx. No acute exacerbation on admit. Tobacco Abuse: per hx. NRT PRN. Morbid Obesity: per Body mass index is 69.17 kg/m . Code Status: Full Code DVT Prophylaxis: Lovenox Current living situation: Home Expected Disposition: Likely Home Estimated discharge date: 2-3 days Chief Complaint: Lower extremity swelling, drainage History of Present Illness: Azalia Matthew is a 53 y.o. male with a history of COPD who presented to [facility] with lower extremity edema, exertional dyspnea/orthopnea. Patient was found to have CHF and acute hypoxic failure. Patient transferred to [facility] 11/22/2023 for further management. Patient seen this evening. Patient reported that he chronically has felt short of breath due to hisCOPD. He states that he does not follow with family physician on routine basis. 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 Noticed increased itchiness to his bilateral lower extremities followed by clear fluid drainage now appearing more yellow. He denies any prior heart issues. Denies any chest pain, fever, chills, abdominal pain, nausea, vomiting. Discussed continued IV diuresis and TTE ROS: 10 systems were reviewed and negative, except as noted above Past Medical, Surgical, Social, Family History: Past Medical History: Diagnosis Date COPD (chronic obstructive pulmonary disease) (HCC) Kidney stones Past Surgical History: Procedure Laterality Date APPENDECTOMY CHOLECYSTECTOMY Social History Socioeconomic History Marital status: Spouse name: Not on file Number of children: Not on file Years of education: Not on file Highest education level: Not on file Occupational History Not on file Tobacco Use Smoking status: Every Day Current packs/day: 1.50 Types: Cigarettes Smokeless tobacco: Never Vaping Use Vaping status: Never Used Substance and Sexual Activity Alcohol use: Not Currently Drug use: Never Sexual activity: Not on file Other Topics Concern Not on file Social History Narrative Not on file Social Determinants of Health Financial Resource Strain: Not on file Food Insecurity: Not on file Transportation Needs: Not on file Physical Activity: Not on file Stress: Not on file Social Connections: Not on file Intimate Partner Violence: Not on file Housing Stability: Not on file No family history on file. Home Medications: No current facility-administered medications on file prior to encounter. Current Outpatient Medications on File Prior to Encounter Medication Sig Dispense Refill Naproxen Sodium (ALEVE PO) Take by mouth. Not on File Physical Exam: Visit Vitals BP (!) 147/97 Pulse 81 Temp 98.1 F (36.7 C) (Oral) Resp 23 Wt (!) 231.3 kg (510 lb) SpO2 94% General: NAD, alert Eyes: EOMI ENT: neck supple Cardiovascular: Regular rate. 2+ BLE pitting edema Respiratory: diminished breath sounds bilaterally Gastrointestinal: Soft, non tender Genitourinary: no suprapubic tenderness Musculoskeletal: No cyanosis. Skin: warm, dry (see media) Neuro: Alert. Psych: Mood appropriate. Labs, Imaging, and Studies reviewed: Recent Labs Lab 11/22/23 1405 HGB 16.9 HCT 53.1* PLT 279 Recent Labs Lab 11/22/23 1405 NA 138 K 3.5* CL 103 BUN 9 CREATININE 0.66 EGFR 112.9 CALCIUM 8.5 No results for input(s): ALT, AST, ALKPHOS, BILITOT in the last 168 hours. No results for input(s): INR in the last 168 hours. Associated attestation - Canelo Cummins MD - 11/22/2023 7:34 PM EDT I have personally performed a [id number] diagnostic evaluation of this patient on 11/22/23. Patient seen independently. Labs and imaging personally reviewed. I personally completed a substantive exam as detailed below. I preformed the substantive part of the medical decision making for this encounter as detailed in the note below by Adan GERMAIN. In summary, admitted for HF. Chart reviewed, has a history of COPD. ED workup reviewed, hypoxic at 87% requiring 2 L nasal cannula. Blood pressure stable. Potassium 3.5 otherwise NT proBNP 315 and troponin negative. Chest x-ray with volume overload otherwise venous duplex nonacute. EKG (personally reviewed) with normal sinus rhythm and otherwise no acute ischemic findings. Given IV Lasix and cefepime along with vancomycin. Having leg drainage for quite some time now, no other medical history, does smoke. Patient presented with LE edema and dyspnea. Workup significant for CHF. Plan to start IV diuresis,check TTE, no need for abx as this is bilateral and chronic and otherwise due to fluid overload - no signs of sepsis. Physical Exam: Vitals: 11/22/23 1657 BP: (!) 147/97 Pulse: 81 Resp: Temp: SpO2: 94% General: No acute distress, obese Eyes: EOMI ENT: neck supple Cardiovascular: Regular rate and rhythm. Respiratory: Room air, diminished Gastrointestinal: Soft, non-tender, non-distended Musculoskeletal: 2-3+ LE edema with chronic venous changes and ulceration Skin: warm, dry, without rash Neuro: Alert, oriented, no focal deficits Psych: Mood appropriate, affect appropriate to clinical situation Canelo Cummins MD [facility] Hospitalist Please do not hesitate to contact me via [employer] directory or bar machine operator. [employer] Work Phone: [phone] History and physical note* Adan Zaman PA - 11/22/2023 5:43 PM EDT Images from the original note were not included. [facility] Medicine / [facility] History and Physical 11/22/23 Azalia Matthew 1970 [id number] Assessment/Plan: Azalia Matthew is a 53 y.o. male with a history of COPD who presented to [facility] with lower extremity edema, exertional dyspnea/orthopnea. Patient was found to have CHF and acute hypoxic failure. Patient transferred to [facility] 11/22/2023 for further management. Acute CHF: suspect diastolic heart failure. Reported worsening lower extremity edema over the last month. NT Pro BNP 315. CXR showed fluid overload. Initiated on IV diuresis in ED, continued on admit. TTE 11/22/23 pending. Acute Hypoxic Respiratory Failure: Required 3L of NC on admit. Suspect due to above. IV diuresis asdiscussed. Wean oxygen as able. Chronic Leg Ulcers: suspect drinage due to lower extremity edema from CHF. BLED negative for DVT/SVT. S/p Vanco/Cefepime in the ED. In the absence of leukocytosis, fever will hold off on further antibiotics. ETRN consulted. Hypokalemia: K 3.5. Replace with electrolyte replacement protocol as needed. COPD: per hx. No acute exacerbation on admit. Tobacco Abuse: per hx. NRT PRN. Morbid Obesity: per Body mass index is 69.17 kg/m . Code Status: Full Code DVT Prophylaxis: Lovenox Current living situation: Home Expected Disposition: Likely Home Estimated discharge date: 2-3 days Chief Complaint: Lower extremity swelling, drainage History of Present Illness: Azalia Matthew is a 53 y.o. male with a history of COPD who presented to [facility] with lower extremity edema, exertional dyspnea/orthopnea. Patient was found to have CHF and acute hypoxic failure. Patient transferred to [facility] 11/22/2023 for further management. Patient seen this evening. Patient reported that he chronically has felt short of breath due to hisCOPD. He states that he does not follow with family physician on routine basis. 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 Noticed increased itchiness to his bilateral lower extremities followed by clear fluid drainage now appearing more yellow. He denies any prior heart issues. Denies any chest pain, fever, chills, abdominal pain, nausea, vomiting. Discussed continued IV diuresis and TTE ROS: 10 systems were reviewed and negative, except as noted above Past Medical, Surgical, Social, Family History: Past Medical History: Diagnosis Date COPD (chronic obstructive pulmonary disease) (HCC) Kidney stones Past Surgical History: Procedure Laterality Date APPENDECTOMY CHOLECYSTECTOMY Social History Socioeconomic History Marital status: Spouse name: Not on file Number of children: Not on file Years of education: Not on file Highest education level: Not on file Occupational History Not on file Tobacco Use Smoking status: Every Day Current packs/day: 1.50 Types: Cigarettes Smokeless tobacco: Never Vaping Use Vaping status: Never Used Substance and Sexual Activity Alcohol use: Not Currently Drug use: Never Sexual activity: Not on file Other Topics Concern Not on file Social History Narrative Not on file Social Determinants of Health Financial Resource Strain: Not on file Food Insecurity: Not on file Transportation Needs: Not on file Physical Activity: Not on file Stress: Not on file Social Connections: Not on file Intimate Partner Violence: Not on file Housing Stability: Not on file No family history on file. Home Medications: No current facility-administered medications on file prior to encounter. Current Outpatient Medications on File Prior to Encounter Medication Sig Dispense Refill Naproxen Sodium (ALEVE PO) Take by mouth. Not on File Physical Exam: Visit Vitals BP (!) 147/97 Pulse 81 Temp 98.1 F (36.7 C) (Oral) Resp 23 Wt (!) 231.3 kg (510 lb) SpO2 94% General: NAD, alert Eyes: EOMI ENT: neck supple Cardiovascular: Regular rate. 2+ BLE pitting edema Respiratory: diminished breath sounds bilaterally Gastrointestinal: Soft, non tender Genitourinary: no suprapubic tenderness Musculoskeletal: No cyanosis. Skin: warm, dry (see media) Neuro: Alert. Psych: Mood appropriate. Labs, Imaging, and Studies reviewed: Recent Labs Lab 11/22/23 1405 HGB 16.9 HCT 53.1* PLT 279 Recent Labs Lab 11/22/23 1405 NA 138 K 3.5* CL 103 BUN 9 CREATININE 0.66 EGFR 112.9 CALCIUM 8.5 No results for input(s): ALT, AST, ALKPHOS, BILITOT in the last 168 hours. No results for input(s): INR in the last 168 hours. Associated attestation - Canelo Cummins MD - 11/22/2023 7:34 PM EDT I have personally performed a [id number] diagnostic evaluation of this patient on 11/22/23. Patient seen independently. Labs and imaging personally reviewed. I personally completed a substantive exam as detailed below. I preformed the substantive part of the medical decision making for this encounter as detailed in the note below by Adan GERMAIN. In summary, admitted for HF. Chart reviewed, has a history of COPD. ED workup reviewed, hypoxic at 87% requiring 2 L nasal cannula. Blood pressure stable. Potassium 3.5 otherwise NT proBNP 315 and troponin negative. Chest x-ray with volume overload otherwise venous duplex nonacute. EKG (personally reviewed) with normal sinus rhythm and otherwise no acute ischemic findings. Given IV Lasix and cefepime along with vancomycin. Having leg drainage for quite some time now, no other medical history, does smoke. Patient presented with LE edema and dyspnea. Workup significant for CHF. Plan to start IV diuresis,check TTE, no need for abx as this is bilateral and chronic and otherwise due to fluid overload - no signs of sepsis. Physical Exam: Vitals: 11/22/23 1657 BP: (!) 147/97 Pulse: 81 Resp: Temp: SpO2: 94% General: No acute distress, obese Eyes: EOMI ENT: neck supple Cardiovascular: Regular rate and rhythm. Respiratory: Room air, diminished Gastrointestinal: Soft, non-tender, non-distended Musculoskeletal: 2-3+ LE edema with chronic venous changes and ulceration Skin: warm, dry, without rash Neuro: Alert, oriented, no focal deficits Psych: Mood appropriate, affect appropriate to clinical situation Canelo Cummins MD [facility] Hospitalist Please do not hesitate to contact me via [employer] directory or bar machine operator. [facility] Note* Beatrice Norman RN - 11/22/2023 4:56 PM EDT Lynn from [address] [place] [address] notified JADE at bedside for transport. [facility]07-23-2024 Emergency department Note* Beatrice Norman RN - 11/22/2023 4:56 PM EDT JADE at bedside. Report to JADE [facility]07-23-2024 Emergency department Note* Beatrice Norman RN - 11/22/2023 4:56 PM EDT Lynn from [address] [place] [address] notified JADE at bedside for transport. * Beatrice Norman RN - 11/22/2023 4:56 PM EDT JAED at bedside. Report to JADE * Beatrice Norman RN - 11/22/2023 4:23 PM EDT Patient placed on ANIBAL call at this time. * Beatrice Norman RN - 11/22/2023 3:42 PM EDT Ultrasound at bedside. * Lizbeth Wilson MD - 11/22/2023 2:59 PM EDT I personally saw and examined this patient. I supervised the care and treatment of this patient. I formulated the medical decision making plan verbally with the midlevel, LOOM CHECKER, or PA, that led to the disposition, treatment, discharge, or admission of this patient. The orders entered are part of the direct result of that medical decision making and treatment plan formulated and discussed. I have personally reviewed the patients past medical history as documented in the chart including past family history, social history, allergies, and past surgical history. Procedures XR Chest 1 View Final Result 1. CHF/fluid overload. Venous Duplex Lower Ext Bilateral (Results Pending) Recent Results (from the past 24 hour(s)) CBC with Differential Collection Time: 11/22/23 2:05 PM Result Value Ref Range White Blood Cells 7.9 4.3 - 10.3 x10*3/uL RBC 5.92 (H) 3.70 - 5.70 x10*6/uL Hgb 16.9 12.8 - 17.7 g/dL Hematocrit 53.1 (H) 37.7 - 51.1 % MCV 89.7 80.6 - 99 fL MCH 28.5 27.0 - 34.2 pg MCHC 31.8 31.4 - 36.2 g/dL RDW-CV 14.2 11.5 - 14.5 % Platelets 279 150 - 400 x10*3/uL Neutrophil % 68.7 % Absolute Neutrophil 5.4 2.4 - 6.6 x10*3/uL Lymphocyte % 20.8 % Absolute Lymph 1.7 1.2 - 3.3 x10*3/uL Monocytes % 7.3 % Absolute Price 0.6 0.2 - 0.6 x10*3/uL Eosinophil % 2.7 % Absolute Eosinophil 0.2 0.1 - 0.3 x10*3/uL Basophil % 0.4 % Absolute Basophil 0.0 0.0 - 0.1 x10*3/uL Immature Granulocytes % 0.1 % Absolute Immature Granulocytes 0.0 0.0 - 0.1 x10*3/uL Basic metabolic panel aka Chem 8 Collection Time: 11/22/23 2:05 PM Specimen: Blood, Venous Result Value Ref Range Sodium 138 135 - 147 mmol/L Potassium 3.5 (L) 3.6 - 5.1 mmol/L Chloride 103 96 - 109 mmol/L CO2 27 22 - 30 mmol/L Glucose 168 (H) 65 - 100 mg/dL BUN 9 8 - 26 mg/dL Creatinine 0.66 0.66 - 1.25 mg/dL Calcium 8.5 8.4 - 10.4 mg/dL EGFR 112.9 >=60.0 mL/min/1.73m*2 Anion Gap 8 8 - 12 mmol/L Magnesium Collection Time: 11/22/23 2:05 PM Result Value Ref Range Magnesium 2.0 1.6 - 2.3 mg/dL Troponin I - Series (X 3) Collection Time: 11/22/23 2:05 PM Result Value Ref Range Troponin I <0.012 <=0.033 ng/mL BNP Collection Time: 11/22/23 2:05 PM Result Value Ref Range NT-pro-BNP 315 (H) <=299 pg/mL Medical Decision Making Patient presents emergency department chief complaint of worsening lower extremity edema, bilateralleg erythema, exertional dyspnea, orthopnea. He reports that this problem has been worsening the past couple of years but has acutely worsened over the past few weeks. Patient has bilateral lower extremity edema with erythema. He has noted to have multiple wounds to his legs with serous drainage. Clinical exam is consistent with volume overload. Chest x-ray also shows evidence of CHF/volume overload. EKG does not show evidence of acute ischemia. Troponin is negative. Patient may have a component of secondary cellulitis versus venous stasis dermatitis in the lower extremities. Patient has normal white blood cell count. He is afebrile. Blood cultures were obtained. Antibiotics have been ordered. Patient with mild hypokalemia with potassium of 3.5. Oral potassium supplementation has been ordered for the patient as we are administering IV Lasix. Patient noted to be mildly hypoxic on arrivalwith SpO2 in the upper 80s on room air. He is currently on 2 L via nasal cannula. Given hypoxic respiratory failure, concern for CHF, and lower extremity cellulitis patient will be admitted for further evaluation and treatment. This note was constructed and dictated with the use of the [employer] voice recognition software program which may omit or change portions of the dictation, and/or substitute, homonyms and thereby alter the original intent of the dictated statement. Unintended gender changes may also be incorporated due to misinterpretation of the spoken words. Lizbeth Wilson MD 11/22/23 1502 * Beatrice Norman RN - 11/22/2023 2:00 PM EDT 2 liters O2 placed on patient at this time, increases SPO2 to 92% * Shawna Sotelo APRN NP - 11/22/2023 1:58 PM EDT Images from the original note were not included. ED Diagnosis and Summary 1. Acute congestive heart failure, unspecified heart failure type (HCC) 2. Bilateral lower leg cellulitis 3. Hypoxia ED Summary This 53 year old male with a history of COPD arrives via private vehicle with c/o bilateral leg edema and wounds. He is nonill, nontoxic in appearance. He has exp wheezes throughout. Abd large, soft and non tender. He arrives with ABD wrapped around both legs with small amount of serosanganuous drainage. He has discoloration and dry, rough skin to sammy lower extremity. LLE +2 edema, RLE +1. He is 87% on room air upon arrival. He was placed on 2L via nc and came up to 92-93%. Cbc and bmp are unremarkable. Mg and trop are WNL. BNP 315. Wound cultures and blood cultures are pending. Atb initiated in ED. Venous duplex is negative for DVT/SVT. Pt will be admitted to medicine for further eval and treatment. Labs Reviewed CBC AND DIFFERENTIAL - Abnormal; Notable for the following components: Result Value RBC 5.92 (*) Hematocrit 53.1 (*) All other components within normal limits BASIC METABOLIC PANEL - Abnormal; Notable for the following components: Potassium 3.5 (*) Glucose 168 (*) All other components within normal limits BRAIN NATRIURETIC PEPTIDE - Abnormal; Notable for the following components: NT-pro-BNP 315 (*) All other components within normal limits MAGNESIUM - Normal TROPONIN I SERIES - Normal WOUND CULTURE WITH GRAM STAIN WOUND CULTURE WITH GRAM STAIN BLOOD CULTURE WITH GRAM STAIN BLOOD CULTURE WITH GRAM STAIN RAINBOW DRAW Narrative: The following orders were created for panel order PC and [facility] ED Rentz Draw. Procedure Abnormality Status --------- ------ Gold Top[[id number]] In process LIGHT BLUE TOP[[id number]] In process Light Green Top[[id number]] In process Lavender Top[[id number]] In process Dark Green Top[[id number]] In process Please view results for these tests on the individual orders. GOLD TOP LIGHT BLUE TOP LIGHT GREEN TOP LAVENDER TOP DARK GREEN TOP TROPONIN I TROPONIN I Venous Duplex Lower Ext Bilateral XR Chest 1 View Final Result 1. CHF/fluid overload. This plan was discussed with patient and/or parent(s), questions were answered, the patient and or parent(s) appear to understand and agree with plan for admission. Spoke with Dr. Wilson attending regarding patient. Collaboration performed between this GENERAL OFFICE ASSISTANT and physician regarding patient's plan of care. History Chief Complaint Patient presents with Leg Swelling Patient's medications, allergies, past medical, surgical, social and family histories were reviewedand updated as appropriate. The history is provided by the patient. This 53 year old male with a history of COPD and obesity arrives via EMS with c/o bilateral leg edema and wounds. He reports having bilateral leg edema x1 year. He states approx one month ago he scratched bilateral lower legs causing wounds. He reports drainage from both wounds. He c/o dyspnea on exertion and some nausea. He smokes 1.5-2PPD. Denies fever, chills, body aches and chest pain. Review of Systems Constitutional: Negative for chills and fever. Respiratory: Positive for shortness of breath (on exertion). Cardiovascular: Positive for leg swelling. Negative for chest pain. Skin: Positive for wound. All other systems reviewed and are negative. Physical Exam ED Triage Vitals BP 11/22/23 1400 196/85 Heart Rate 11/22/23 1358 87 Resp 11/22/23 1358 18 Temp 11/22/23 1358 98.1 F (36.7 C) Temp src 11/22/23 1358 Oral SpO2 11/22/23 1358 (!) 87 % Weight 11/22/23 1358 (!) 510 lb (231.3 kg) Height -- BMI (Calculated) -- Physical Exam Constitutional: Appearance: He is obese. HENT: Head: Normocephalic. Mouth/Throat: Mouth: Mucous membranes are moist. Cardiovascular: Rate and Rhythm: Normal rate and regular rhythm. Pulses: Normal pulses. Heart sounds: Normal heart sounds. Pulmonary: Effort: Pulmonary effort is normal. Breath sounds: Wheezing (exp throughout) present. Abdominal: General: Bowel sounds are normal. Palpations: Abdomen is soft. Musculoskeletal: General: Normal range of motion. Cervical back: Normal range of motion. Right lower le+ Pitting Edema present. Left lower le+ Pitting Edema present. Skin: General: Skin is warm and dry. Capillary Refill: Capillary refill takes 2 to 3 seconds. Neurological: Mental Status: He is alert and oriented to person, place, and time. ED Course Procedures Medical Decision Making Amount and/or Complexity of Data Reviewed Labs: ordered. Decision-making details documented in ED Course. Radiology: ordered. Decision-making details documented in ED Course. Shawna Sotelo APRN NP 11/22/23 1616 * Beatrice Norman RN - 11/22/2023 1:56 PM EDT Patient arrives via [facility] with complaints of bilateral leg swelling, redness, and drainage. Patientstates he has been battling this for the past 2 years but states his legs worsened within the last 30 days. Patient states he has shortness of breath on exertion.Patient is alert and oriented, skin Pwd, respirations easy and unlabored. documented in this [facility]07-23-2024 Emergency department Note* Beatrice Norman RN - 11/22/2023 4:23 PM EDT Patient placed on ANIBAL call at this time. [facility]07-23-2024 Emergency department Note* Beatrice Norman RN - 11/22/2023 3:42 PM EDT Ultrasound at bedside. [facility]07-23-2024 Progress note* Pharmacy Note - Kaur Pastor PharmD - 11/22/2023 3:15 PM EDT Pharmacy To Dose Vancomycin For Emergency Department Ht: Wt:(!) 231.3 kg (510 lb) Vancomycin 2g IV x1 now Please administer Cefepime (Maxipime) prior to vancomycin administration. Thank you, Kaur Pastor PharmD [facility]07-23-2024 Physician Emergency department Note* Lizbeth Wilson MD - 11/22/2023 2:59 PM EDT I personally saw and examined this patient. I supervised the care and treatment of this patient. I formulated the medical decision making plan verbally with the midlevel, LOOM CHECKER, or PA, that led to the disposition, treatment, discharge, or admission of this patient. The orders entered are part of the direct result of that medical decision making and treatment plan formulated and discussed. I have personally reviewed the patients past medical history as documented in the chart including past family history, social history, allergies, and past surgical history. Procedures XR Chest 1 View Final Result 1. CHF/fluid overload. Venous Duplex Lower Ext Bilateral (Results Pending) Recent Results (from the past 24 hour(s)) CBC with Differential Collection Time: 11/22/23 2:05 PM Result Value Ref Range White Blood Cells 7.9 4.3 - 10.3 x10*3/uL RBC 5.92 (H) 3.70 - 5.70 x10*6/uL Hgb 16.9 12.8 - 17.7 g/dL Hematocrit 53.1 (H) 37.7 - 51.1 % MCV 89.7 80.6 - 99 fL MCH 28.5 27.0 - 34.2 pg MCHC 31.8 31.4 - 36.2 g/dL RDW-CV 14.2 11.5 - 14.5 % Platelets 279 150 - 400 x10*3/uL Neutrophil % 68.7 % Absolute Neutrophil 5.4 2.4 - 6.6 x10*3/uL Lymphocyte % 20.8 % Absolute Lymph 1.7 1.2 - 3.3 x10*3/uL Monocytes % 7.3 % Absolute Price 0.6 0.2 - 0.6 x10*3/uL Eosinophil % 2.7 % Absolute Eosinophil 0.2 0.1 - 0.3 x10*3/uL Basophil % 0.4 % Absolute Basophil 0.0 0.0 - 0.1 x10*3/uL Immature Granulocytes % 0.1 % Absolute Immature Granulocytes 0.0 0.0 - 0.1 x10*3/uL Basic metabolic panel aka Chem 8 Collection Time: 11/22/23 2:05 PM Specimen: Blood, Venous Result Value Ref Range Sodium 138 135 - 147 mmol/L Potassium 3.5 (L) 3.6 - 5.1 mmol/L Chloride 103 96 - 109 mmol/L CO2 27 22 - 30 mmol/L Glucose 168 (H) 65 - 100 mg/dL BUN 9 8 - 26 mg/dL Creatinine 0.66 0.66 - 1.25 mg/dL Calcium 8.5 8.4 - 10.4 mg/dL EGFR 112.9 >=60.0 mL/min/1.73m*2 Anion Gap 8 8 - 12 mmol/L Magnesium Collection Time: 11/22/23 2:05 PM Result Value Ref Range Magnesium 2.0 1.6 - 2.3 mg/dL Troponin I - Series (X 3) Collection Time: 11/22/23 2:05 PM Result Value Ref Range Troponin I <0.012 <=0.033 ng/mL BNP Collection Time: 11/22/23 2:05 PM Result Value Ref Range NT-pro-BNP 315 (H) <=299 pg/mL Medical Decision Making Patient presents emergency department chief complaint of worsening lower extremity edema, bilateralleg erythema, exertional dyspnea, orthopnea. He reports that this problem has been worsening the past couple of years but has acutely worsened over the past few weeks. Patient has bilateral lower extremity edema with erythema. He has noted to have multiple wounds to his legs with serous drainage. Clinical exam is consistent with volume overload. Chest x-ray also shows evidence of CHF/volume overload. EKG does not show evidence of acute ischemia. Troponin is negative. Patient may have a component of secondary cellulitis versus venous stasis dermatitis in the lower extremities. Patient has normal white blood cell count. He is afebrile. Blood cultures were obtained. Antibiotics have been ordered. Patient with mild hypokalemia with potassium of 3.5. Oral potassium supplementation has been ordered for the patient as we are administering IV Lasix. Patient noted to be mildly hypoxic on arrivalwith SpO2 in the upper 80s on room air. He is currently on 2 L via nasal cannula. Given hypoxic respiratory failure, concern for CHF, and lower extremity cellulitis patient will be admitted for further evaluation and treatment. This note was constructed and dictated with the use of the [employer] voice recognition software program which may omit or change portions of the dictation, and/or substitute, homonyms and thereby alter the original intent of the dictated statement. Unintended gender changes may also be incorporated due to misinterpretation of the spoken words. Lizbeth Wilson MD 11/22/23 1502 [facility] Work Phone: [phone]) 633-444707-23-2024 Emergency department Note* Beatrice Norman RN - 11/22/2023 2:00 PM EDT 2 liters O2 placed on patient at this time, increases SPO2 to 92% [facility]07-23-2024 Physician Emergency department Note* Shawna Sotelo APRN LOOM CHECKER - 11/22/2023 1:58 PM EDT Images from the original note were not included. ED Diagnosis and Summary 1. Acute congestive heart failure, unspecified heart failure type (HCC) 2. Bilateral lower leg cellulitis 3. Hypoxia ED Summary This 53 year old male with a history of COPD arrives via private vehicle with c/o bilateral leg edema and wounds. He is nonill, nontoxic in appearance. He has exp wheezes throughout. Abd large, soft and non tender. He arrives with ABD wrapped around both legs with small amount of serosanganuous drainage. He has discoloration and dry, rough skin to sammy lower extremity. LLE +2 edema, RLE +1. He is 87% on room air upon arrival. He was placed on 2L via nc and came up to 92-93%. Cbc and bmp are unremarkable. Mg and trop are WNL. BNP 315. Wound cultures and blood cultures are pending. Atb initiated in ED. Venous duplex is negative for DVT/SVT. Pt will be admitted to medicine for further eval and treatment. Labs Reviewed CBC AND DIFFERENTIAL - Abnormal; Notable for the following components: Result Value RBC 5.92 (*) Hematocrit 53.1 (*) All other components within normal limits BASIC METABOLIC PANEL - Abnormal; Notable for the following components: Potassium 3.5 (*) Glucose 168 (*) All other components within normal limits BRAIN NATRIURETIC PEPTIDE - Abnormal; Notable for the following components: NT-pro-BNP 315 (*) All other components within normal limits MAGNESIUM - Normal TROPONIN I SERIES - Normal WOUND CULTURE WITH GRAM STAIN WOUND CULTURE WITH GRAM STAIN BLOOD CULTURE WITH GRAM STAIN BLOOD CULTURE WITH GRAM STAIN RAINBOW DRAW Narrative: The following orders were created for panel order PC and [facility] ED Rent[facility] Draw. Procedure Abnormality Status --------- ------ Gold Top[[id number]] In process LIGHT BLUE TOP[[id number]] In process Light Green Top[[id number]] In process Lavender Top[[id number]] In process Dark Green Top[[id number]] In process Please view results for these tests on the individual orders. GOLD TOP LIGHT BLUE TOP LIGHT GREEN TOP LAVENDER TOP DARK GREEN TOP TROPONIN I TROPONIN I Venous Duplex Lower Ext Bilateral XR Chest 1 View Final Result 1. CHF/fluid overload. This plan was discussed with patient and/or parent(s), questions were answered, the patient and or parent(s) appear to understand and agree with plan for admission. Spoke with Dr. Wilson attending regarding patient. Collaboration performed between this GENERAL OFFICE ASSISTANT and physician regarding patient's plan of care. History Chief Complaint Patient presents with Leg Swelling Patient's medications, allergies, past medical, surgical, social and family histories were reviewedand updated as appropriate. The history is provided by the patient. This 53 year old male with a history of COPD and obesity arrives via EMS with c/o bilateral leg edema and wounds. He reports having bilateral leg edema x1 year. He states approx one month ago he scratched bilateral lower legs causing wounds. He reports drainage from both wounds. He c/o dyspnea on exertion and some nausea. He smokes 1.5-2PPD. Denies fever, chills, body aches and chest pain. Review of Systems Constitutional: Negative for chills and fever. Respiratory: Positive for shortness of breath (on exertion). Cardiovascular: Positive for leg swelling. Negative for chest pain. Skin: Positive for wound. All other systems reviewed and are negative. Physical Exam ED Triage Vitals BP 11/22/23 1400 196/85 Heart Rate 11/22/23 1358 87 Resp 11/22/23 1358 18 Temp 11/22/23 1358 98.1 F (36.7 C) Temp src 11/22/23 1358 Oral SpO2 11/22/23 1358 (!) 87 % Weight 11/22/23 1358 (!) 510 lb (231.3 kg) Height -- BMI (Calculated) -- Physical Exam Constitutional: Appearance: He is obese. HENT: Head: Normocephalic. Mouth/Throat: Mouth: Mucous membranes are moist. Cardiovascular: Rate and Rhythm: Normal rate and regular rhythm. Pulses: Normal pulses. Heart sounds: Normal heart sounds. Pulmonary: Effort: Pulmonary effort is normal. Breath sounds: Wheezing (exp throughout) present. Abdominal: General: Bowel sounds are normal. Palpations: Abdomen is soft. Musculoskeletal: General: Normal range of motion. Cervical back: Normal range of motion. Right lower le+ Pitting Edema present. Left lower le+ Pitting Edema present. Skin: General: Skin is warm and dry. Capillary Refill: Capillary refill takes 2 to 3 seconds. Neurological: Mental Status: He is alert and oriented to person, place, and time. ED Course Procedures Medical Decision Making Amount and/or Complexity of Data Reviewed Labs: ordered. Decision-making details documented in ED Course. Radiology: ordered. Decision-making details documented in ED Course. Shawna Sotelo APRN NP 11/22/23 1616 [facility]07-23-2024 Emergency department Triage note* Beatrice Norman RN - 11/22/2023 1:56 PM EDT Patient arrives via [facility] with complaints of bilateral leg swelling, redness, and drainage. Patientstates he has been battling this for the past 2 years but states his legs worsened within the last 30 days. Patient states he has shortness of breath on exertion.Patient is alert and oriented, skin Pwd, respirations easy and unlabored. [employer] [id number] [place] [address] HEALTH INFORMATION MANAGEMENT DISCHARGE SUMMARY : [id number] Signed Patient: AZALIA MATTHEW Acct:[id number] MRUN : [id number] : 1970 Sex: M Loc: 4TH FLOOR ADM Date: 05/20/22 Room/Bed: 425-B DISC Date: 05/21/22 - Hospital Course Events Since Admission: AZALIA MATTHEW was admitted to MEDICAL SURGICAL service into room 425 on 05/20/22 at 19:14 from Emergency Dept for complaints of SOB/COPD/CHEST DISCOMFORT/HEMOPTYSIS. Laboratory and diagnostic testing has been reviewed. The patient was seen, evaluated and found to be appropriate for discharge. Reason For Visit: SOB/COPD/CHEST DISCOMFORT/HEMOPTYSIS Hospital Treatment: 05/21/22 06:15 05/21/22 06:15 Laboratory Results - last 24 hr 05/21/22 06:15: WBC 8.5, RBC 5.88 H, Hgb 17.0, Hct 52.8 H, MCV 89.8, MCH 28.9, MCHC 32.2 L, RDW 13.6, Plt Count 268, MPV 10.5 H, Neut % (Auto) 83.7 H, Lymph % (Auto) 14.6 L, Price % (Auto) 1.3 L, Eos % (Auto) 0.1 L, Baso % (Auto) 0.1 L, Abs Immat Gran (man) 0.02, Absolute Neuts (auto) 7.14 H, Absolute Lymphs (auto) 1.30, Absolute Monos (auto) 0.10 L, Absolute Eos (auto) 0, Absolute Basos (auto) 0.01, Immature Gran % 0.20 05/21/22 06:15: Sodium 139, Potassium 4.5, Chloride 102, Total Carbon Dioxide 29, Anion Gap 12.5, BUN 12.4, Creatinine 0.66, Est GFR (MDRD) Af Amer > 60, Est GFR (MDRD) Non-Af > 60, BUN/Creatinine Ratio 19, Glucose 164 H, Calcium 9.5, Magnesium 2.1 05/21/22 03:51: Urine Color yellow, Urine Appearance Clear, Urine pH 5, Ur Specific [place] 1.015, Urine Protein Negative, Urine Ketones 5 A, Urine Blood 10 A, Urine Nitrite Negative, Urine Bilirubin Negative, Urine Urobilinogen Normal, Ur Leukocyte Esterase Negative, Urine RBC 0-2, Urine WBC 0-2, Urine Glucose 50 A 05/20/22 23:45: Troponin I High Sens 4, Troponin I Hi Sens Del 25, Troponin I Hi Sens Abs Chng 1 05/20/22 22:02: Troponin I High Sens 5, Troponin I Hi Sens Del 40, Troponin I Hi Sens Abs Chng 2 05/20/22 19:34: Troponin I High Sens 7, Troponin I Hi Sens Del 0, Troponin I Hi Sens Abs Chng 0 05/20/22 17:14: Influenza Type A Ag Negative, Influenza Type B Ag Negative 05/20/22 17:13: NT-Pro-B Natriuret Pep 104 05/20/22 17:13: SARS-CoV-2 Ag (Rapid) Negative 05/20/22 17:13: PT 9.2, INR 0.97, APTT 28.1 05/20/22 17:13: D-Dimer 0.66 H*, Sodium 142, Potassium 4.2, Chloride 103, Total Carbon Dioxide 31, Anion Gap 12.2, BUN 14.7, Creatinine 1.07, Est GFR (MDRD) Af Amer > 60, Est GFR (MDRD) Non-Af > 60, BUN/Creatinine Ratio 14, Glucose 108 H, Calcium 9.3, Total Bilirubin 0.34, AST 32, ALT 69 H, Alkaline Phosphatase 210 H, Troponin I High Sens 7, Total Protein 8.2, Albumin 3.6, Globulin 4.6 H, Albumin/Globulin Ratio 0.8 L, Lipase 32 L 05/20/22 17:13: WBC 7.4, RBC 5.96 H, Hgb 17.1, Hct 53.7 H, MCV 90.1, MCH 28.7, MCHC 31.8 L, RDW 13.5, Plt Count 252, MPV 9.9, Neut % (Auto) 57.1, Lymph % (Auto) 31.7, Price % (Auto) 8.1, Eos % (Auto) 2.7, Baso % (Auto) 0.3, Abs Immat Gran (man) 0.01, Absolute Neuts (auto) 4.25, Absolute Lymphs (auto) 2.40, Absolute Monos (auto) 0.60, Absolute Eos (auto) 0.20, Absolute Basos (auto) 0.02, Immature Gran % 0.10 Intake Output 05/18/22 05/19/22 05/20/22 05/21/22 23:59 23:59 23:59 23:59 Intake Total 300 1220 Output Total 1725 Balance 300 -505 Weight 510 lb 12.8 oz See radiology reports in electronic medical record. - Discharge Information Discharge Diagnosis:: sob/copd/chest discomfort/hemoptysis Disposition: HOME / SELF CARE / HOMELESS Condition: Improved Plan of Treatment: This patient presented to our ED on 05/20/22 for complaints of SOB and chest pain. Patient found to be hypoxic on presentation to the ED and was placed on 2l O2 via n/c which patient does not use at home. CXR was negative for acute processes. EKG showed sinus rhythm at a rate of 81. D.Dimer came back high at 0.66. Patient weight exceeds the limit for CT and VQ scan. I did obtain an ultrasound of the BLE which showed no evidence of DVT in either extremity. Cardiology was consulted and an echo was obtained which also showed no evidence of right heart strain which would make a large PE improbable. Cardiology agreed that patient should not be treated for PE or DVT as no further findings support it. Patient does not have a primary provider and so is being referred to you. Patient is now on room air and denies any further chest pain. Patient is being discharged on zithromax, prednisone and tesslon perles. Patient instructed to follow up with cardiology in 4 weeks and to follow up with Dr. Longoria to establish care. - Discharge Instructions Referrals: AIDE MONREAL MD [MEDICAL DOCTOR] - 4 Week -Nurse to Schedule OLIMPIA LONGORIA DO [DOCTOR OF OSTEOPATHY] - 1 Week -Nurse to Schedule LD GIMENEZ MD [P (more content not included)...[facility]01-23-2023 [place] [address] HEALTH INFORMATION MANAGEMENT CONSULTATION : [id number] Signed Patient: AZALIA MATTHEW Acct:[id number] MRUN : [id number] : 1970 Sex: M Loc: 4TH FLOOR ADM Date: 05/20/22 Room/Bed: 425-B DISC Date: 05/21/22 CARDIOLOGY CONSULT THIS DOCUMENT HAS BEEN CREATED USING VOICE RECOGNITION SOFTWARE AND MAY CONTAIN GRAMMATICAL, SYNTAX, AND TYPOGRAPHICAL ERRORS. Admission Date: 05/20/22 19:14 Current Date: 05/23/22 Admission Diagnosis: Chest pain Chief Complaint: Chest pain Referring Physician: Hospital medicine HPI: Patient is a 51-year-old female with obesity, chronic back pain, ongoing tobacco use disorder emergency room because of not feeling well along with shortness of breath and left-sided chest pain. Patient said that he has been having cough for the last couple of weeks. Recent upper respiratory wheezing. Since that he has been having pain in the left side. Chest worse with movement and also with coughing and breathing. He denies any hemoptysis. Denies any fever chills. In the emergency room his troponin stable. Blood pressure is elevated. Bradycardia probably improved from Wenckebach arrhythmias. She denies any exertional chest pain or shortness of breath. No dizziness lightheadedness or syncopal episodes. Allergies/Adverse Reactions: No Known Allergies Allergy (Verified 06/27/13 20:42) Last Vital Signs Temp 98.5 F 05/21/22 12:00 Pulse 85 05/21/22 12:00 Resp 18 05/21/22 12:00 BP 144/73 05/21/22 12:00 Pulse Ox 91 L 05/21/22 10:30 FiO2 Laboratory Last Values WBC 8.5 K/uL (3.6-10.8) 05/21/22 06:15 RBC 5.88 M/uL (4.13-5.69) H 05/21/22 06:15 Hgb 17.0 g/dL (12.4-17.3) 05/21/22 06:15 Hct 52.8 % (36.7-50.6) H 05/21/22 06:15 MCV 89.8 fL (80.0-94.0) 05/21/22 06:15 MCH 28.9 pg (27.0-31.0) 05/21/22 06:15 MCHC 32.2 g/dL (33.0-37.0) L 05/21/22 06:15 RDW 13.6 % (11.5-14.5) 05/21/22 06:15 Plt Count 268 K/uL (148-402) 05/21/22 06:15 MPV 10.5 fL (7.4-10.4) H 05/21/22 06:15 Neut % (Auto) 83.7 % (43.0-65.0) H 05/21/22 06:15 Lymph % (Auto) 14.6 % (17.0-45.5) L 05/21/22 06:15 Price % (Auto) 1.3 % (5.5-11.7) L 05/21/22 06:15 Eos % (Auto) 0.1 % (0.9-2.9) L 05/21/22 06:15 Baso % (Auto) 0.1 % (0.2-1.0) L 05/21/22 06:15 Abs Immat Gran (man) 0.02 K/uL (0.00-0.10) 05/21/22 06:15 Absolute Neuts (auto) 7.14 K/uL (2.20-4.80) H 05/21/22 06:15 Absolute Lymphs (auto) 1.30 K/uL (1.30-2.90) 05/21/22 06:15 Absolute Monos (auto) 0.10 K/uL (0.30-0.80) L 05/21/22 06:15 Absolute Eos (auto) 0 K/uL (0.00-0.20) 05/21/22 06:15 Absolute Basos (auto) 0.01 K/uL (0.00-0.10) 05/21/22 06:15 Immature Gran % 0.20 % (0.00-1.00) 05/21/22 06:15 PT 9.2 sec (8.9-12.2) 05/20/22 17:13 INR 0.97 ratio 05/20/22 17:13 APTT 28.1 sec (19.5-32.1) 05/20/22 17:13 D-Dimer 0.66 mg/L FEU (0.00-0.49) H* 05/20/22 17:13 Sodium 139 mmol/L (132-145) 05/21/22 06:15 Potassium 4.5 mmol/L (3.3-5.1) 05/21/22 06:15 Chloride 102 mmol/L (94-110) 05/21/22 06:15 Total Carbon Dioxide 29 mmol/L (21-34) 05/21/22 06:15 Anion Gap 12.5 mmol/L (8.0-16.0) 05/21/22 06:15 BUN 12.4 mg/dL (3.2-26.9) 05/21/22 06:15 Creatinine 0.66 mg/dL (0.50-1.17) 05/21/22 06:15 Est GFR (MDRD) Af Amer > 60 (>60) 05/21/22 06:15 Est GFR (MDRD) Non-Af > 60 (>60) 05/21/22 06:15 BUN/Creatinine Ratio 19 (6-20) 05/21/22 06:15 Glucose 164 mg/dL (65-100) H 05/21/22 06:15 Calcium 9.5 mg/dL (8.2-10.0) 05/21/22 06:15 Magnesium 2.1 mg/dL (1.3-2.3) 05/21/22 06:15 Total Bilirubin 0.34 mg/dL (0.00-0.99) 05/20/22 17:13 AST 32 U/L (3-39) 05/20/22 17:13 ALT 69 U/L (13-66) H 05/20/22 17:13 Alkaline Phosphatase 210 U/L (54-112) H 05/20/22 17:13 Troponin I High Sens 4 ng/L (0-76) 05/20/22 23:45 Troponin I Hi Sens Del 25 % 05/20/22 23:45 Troponin I Hi Sens Abs Chng 1 ng/L 05/20/22 23:45 NT-Pro-B Natriuret Pep 104 pg/mL (0-125) 05/20/22 17:13 Total Protein 8.2 g/dL (6.1-8.2) 05/20/22 17:13 Albumin 3.6 g/dL (3.4-5.0) 05/20/22 17:13 Globulin 4.6 g/dL (1.5-4.5) H 05/20/22 17:13 Albumin/Globulin Ratio 0.8 (1.1-2.5) L 05/20/22 17:13 Lipase 32 U/L (65-230) L 05/20/22 17:13 Urine Color yellow (Yellow) 05/21/22 03:51 Urine Appearance Clear (Clear) 05/21/22 03:51 Urine pH 5 05/21/22 03:51 Ur Specific [place] 1.015 (1.015-1.025) 05/21/22 03:51 Urine Protein Negative (Negative) 05/21/22 03:51 Urine Ketones 5 (Negative) A 05/21/22 03:51 Urine Blood 10 (Negative) A 05/21/22 03:51 Urine Nitrite Negative (Negative) 05/21/22 03:51 Urine Bilirubin Negative (Negative) 05/21/22 03:51 Urine Urobilinogen Normal mg/dL (Normal-1.0) 05/21/22 03:51 Ur Leukocyte Esterase Negative (Negative) 05/21/22 03:51 Urine RB (more content not included)...[facility] 05-24-2022 Consult note Author AIDE MONREAL [facility] May 23, 2022 11:53pm Note Date/Time May 23, 2022 1 1:52pm [facility] [address] [place] [id number] HEALTH INFORMATION MANAGEMENT CONSULTATION : [id number] Signed Patient: AZALIA MATTHEW Acct:[id number] MRUN: [id number] : 1970 Sex: M Loc: 4TH FLOOR ADM Date: 05/20/22 Room/Bed: 425-B DISC Date: 05/21/22 CARDIOLOGY CONSULT THIS DOCUMENT HAS BEEN CREATED USING VOICE RECOGNITION SOFTWARE AND MAY CONTAIN GRAMMATICAL, SYNTAX, AND TYPOGRAPHICAL ERRORS. Admission Date: 05/20/22 19:14 Current Date: 05/23/22 Admission Diagnosis: Chest pain Chief Complaint: Chest pain Referring Physician: [facility] medicine HPI: Patient is a 51-year-old female with obesity, chronic back pain, ongoing tobaccouse disorder emergency room because of not feeling well along with shortness of breath and left-sided chest pain. Patient said that he has been having cough for the last couple of weeks. Recent upper respiratory wheezing. Since that hehas been having pain in the left side. Chest worse with movement and also with coughing and breathing. He denies any hemoptysis. Denies any fever chills. Inthe emergency room his troponin stable. Blood pressure is elevated. Bradycardia probably improved from Wenckebach arrhythmias. She denies any exertional chest pain or shortness of breath. No dizziness lightheadedness or syncopal episodes. Allergies/Adverse Reactions: No Known Allergies Allergy (Verified 06/27/13 20:42) Last Vital Signs Temp 98.5 F 05/21/22 12:00 Pulse 85 05/21/22 12:00 Resp 18 05/21/22 12:00 BP 144/73 05/21/22 12:00 Pulse Ox 91 L 05/21/22 10:30 FiO2 Laboratory Last Values WBC 8.5 K/uL (3.6-10.8) 05/21/22 06:15 RBC 5.88 M/uL (4.13-5.69) H 05/21/22 06:15 Hgb 17.0 g/dL (12.4-17.3) 05/21/22 06:15 Hct 52.8 % (36.7-50.6) H 05/21/22 06:15 MCV 89.8 fL (80.0-94.0) 05/21/22 06:15 MCH 28.9 pg (27.0-31.0) 05/21/22 06:15 MCHC 32.2 g/dL (33.0-37.0) L 05/21/22 06:15 RDW 13.6 % (11.5-14.5) 05/21/22 06:15 Plt Count 268 K/uL (148-402) 05/21/22 06:15 MPV 10.5 fL (7.4-10.4) H 05/21/22 06:15 Neut % (Auto) 83.7 % (43.0-65.0) H 05/21/22 06:15 Lymph % (Auto) 14.6 % (17.0-45.5) L 05/21/22 06:15 Price % (Auto) 1.3 % (5.5-11.7) L 05/21/22 06:15 Eos % (Auto) 0.1 % (0.9-2.9) L 05/21/22 06:15 Baso % (Auto) 0.1 % (0.2-1.0) L 05/21/22 06:15 Abs Immat Gran (man) 0.02 K/uL (0.00-0.10) 05/21/22 06:15 Absolute Neuts (auto) 7.14 K/uL (2.20-4.80) H 05/21/22 06:15 Absolute Lymphs (auto) 1.30 K/uL (1.30-2.90) 05/21/22 06:15 Absolute Monos (auto) 0.10 K/uL (0.30-0.80) L 05/21/22 06:15 Absolute Eos (auto) 0 K/uL (0.00-0.20) 05/21/22 06:15 Absolute Basos (auto) 0.01 K/uL (0.00-0.10) 05/21/22 06:15 Immature Gran % 0.20 % (0.00-1.00) 05/21/22 06:15 PT 9.2 sec (8.9-12.2) 05/20/22 17:13 INR 0.97 ratio 05/20/22 17:13 APTT 28.1 sec (19.5-32.1) 05/20/22 17:13 D-Dimer 0.66 mg/L FEU (0.00-0.49) H* 05/20/22 17:13 Sodium 139 mmol/L (132-145) 05/21/22 06:15 Potassium 4.5 mmol/L (3.3-5.1) 05/21/22 06:15 Chloride 102 mmol/L (94-110) 05/21/22 06:15 Total Carbon Dioxide 29 mmol/L (21-34) 05/21/22 06:15 Anion Gap 12.5 mmol/L (8.0-16.0) 05/21/22 06:15 BUN 12.4 mg/dL (3.2-26.9) 05/21/22 06:15 Creatinine 0.66 mg/dL (0.50-1.17) 05/21/22 06:15 Est GFR (MDRD) Af Amer > 60 (>60) 05/21/22 06:15 Est GFR (MDRD) Non-Af > 60 (>60) 05/21/22 06:15 BUN/Creatinine Ratio 19 (6-20) 05/21/22 06:15 Glucose 164 mg/dL (65-100) H 05/21/22 06:15 Calcium 9.5 mg/dL (8.2-10.0) 05/21/22 06:15 Magnesium 2.1 mg/dL (1.3-2.3) 05/21/22 06:15 Total Bilirubin 0.34 mg/dL (0.00-0.99) 05/20/22 17:13 AST 32 U/L (3-39) 05/20/22 17:13 ALT 69 U/L (13-66) H 05/20/22 17:13 Alkaline Phosphatase 210 U/L (54-112) H 05/20/22 17:13 Troponin I High Sens 4 ng/L (0-76) 05/20/22 23:45 Troponin I Hi Sens Del 25 % 05/20/22 23:45 Troponin I Hi Sens Abs Chng 1 ng/L 05/20/22 23:45 NT-Pro-B Natriuret Pep 104 pg/mL (0-125) 05/20/22 17:13 Total Protein 8.2 g/dL (6.1-8.2) 05/20/22 17:13 Albumin 3.6 g/dL (3.4-5.0) 05/20/22 17:13 Globulin 4.6 g/dL (1.5-4.5) H 05/20/22 17:13 Albumin/Globulin Ratio 0.8 (1.1-2.5) L 05/20/22 17:13 Lipase 32 U/L (65-230) L 05/20/22 17:13 Urine Color yellow (Yellow) 05/21/22 03:51 Urine Appearance Clear (Clear) 05/21/22 03:51 Urine pH 5 05/21/22 03:51 Ur Specific [place] 1.015 (1.015-1.025) 05/21/22 03:51 Urine Protein Negative (Negative) 05/21/22 03:51 Urine Ketones 5 (Negative) A 05/21/22 03:51 Urine Blood 10 (Negative) A 05/21/22 03:51 Urine Nitrite Negative (Negative) 05/21/22 03:51 Urine Bilirubin Negative (Negative) 05/21/22 03:51 Urine Urobilinogen Normal mg/dL (Normal-1.0) 05/21/22 03:51 Ur Leukocyte Esterase Negative (Negative) 05/21/22 03:51 Urine RBC 0-2 /hpf (0 - 2) 05/21/22 03:51 Urine WBC 0-2 /hpf (0 - 6) 05/21/22 03:51 Urine Glucose 50 (Negative) A 05/21/22 03:51 SARS-CoV-2 (PCR) Not detected (Not Detected) 05/20/22 17:14 Influenza Type A Ag Negative ((Negative)) 05/20/22 17:14 Influenza Type B Ag Negative ((Negative)) 05/20/22 17:14 SARS-CoV-2 Ag (Rapid) Negative (Negative) 05/20/22 17:13 RX history Azithromycin 250 mg PO .PER.INSTRUCTIONS 5 Days #6 tablet 05/21/22 [Rx] Benzonatate [Tessalon Perle] 100 mg PO Q6H PRN 3 Days #12 capsule 05/21/22 [Rx] Prednisone See Taper PO .PER.INSTRUCTIONS 10 Days #15 tablet 05/21/22 [Rx] Past Medical History Hx Ear/Nose/Throat Disorders: No Hx Neurological Disorder: Yes PMH-Neurological: Confirms: Headaches Hx Psychosocial Problems: No Hx Cardiac Disorders: No Hx Respiratory Disorders: Yes PMH--Respiratory: Confirms: Pneumonia PMH--Other-Resp:: Productive Cough Currently - blood streaking. Hx Endocrine Disorders: No Hx Musculoskeletal Disorders: Yes PMH--Musculoskeletal: Confirms: Arthritis, Chronic Back Pain Hx Reproductive Disorders: No Hx Genitourinary Disorders: Yes PMH--Genitourinary: Confirms: Kidney Stones PMH--Other-:: lower lumbar Hx Gastrointestinal Disorders: Yes PMH--Gastrointestinal: Confirms: Obesity PMH--Other-GI:: BMI > 50 Kg/M squared Past Surgical Hx--GI: Confirms: Appendectomy, Lap. 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 Choose all that Apply: Male - [place]-Suicide Severity Rating Scale 1) Wish to be :: No 2) Suicidal Thoughts:: No 6) Suicidal Behavior Question (A): LIFETIME: No 6) Suicidal Behavior Question (B): PAST 3 MONTHS: No Family Medical History - Family Medical History Mother Living Status: Still Living Endocrine History: Hypothyroidism Other Cancer History: ovary Father Living Status: Cause of : lung cancer Review of Systems General: Denies: Fever, Chills Other: All systems reviewed and are negative as per HPI Cardiology Exam General: Yes: Alert, Oriented HEENT: Yes: Atraumatic Lungs: Yes: Clear to auscultation (Chest wall tenderness present normal) Cardiovascular: Yes: Regular Rate, Normal S2, Normal S1. No: Carotid Bruit, JVD Extremities/Skin/Pulses: No: Bilateral Leg Edema Abdomen: Yes: Soft, Large/Obese Neurological: Yes: Speech Clear Psych/Mental Status: Yes: Mental status NL ASSESSMENT/PLAN Reviewed Vitals, Medications, Labs and Notes. Impression: Left-sided chest pain likely musculoskeletal Ongoing tobacco use Chronic back pain Plan: Abrasion pain appears to be musculoskeletal in nature. Reviewed notes of Toradol. Echocardiogram revealed normal LV function without any significant valvular heart disease. It was a technically difficult study. Strongly advised the patient to stop smoking completely. Patient blood pressure slightly elevated this needs to be monitored as an outpatient. Follow-up in outpatient cardiology in 1 month. Cardiology will sign off. Electronically Generated By:AIDE MONREAL MD Generated Date/Time: 05/21/221749 Electronically Signed By: AIDE MONREAL MD Signed Date/Time 05/23/22 9675 Co Signed Electronically By: Co Signed Date/Time: CC: AIDE MONREAL MD; LD GIMENEZ MD [facility] Work Phone: 1(360) 842-963601-21-2023 History and physical note Author ALLA HERNANDEZ [facility] May 22, 2022 8:38pm Note Date/Time May 20, 2022 8 :52pm [facility] [address] [place] [id number] HEALTH INFORMATION MANAGEMENT HISTORY AND PHYSICAL : [id number] Signed Patient: AZALIA MATTHEW Acct:[id number] MRUN: [id number] : 1970 Sex: M Loc: 4TH FLOOR ADM Date: 05/20/22 Room/Bed: 425-B DISC Date: 05/21/22 History of Present Illness Date Of Admission: 05/20/22 Chief Complaint: SOB, Cough, L sided flank pain, diarrhea History of Present Illness: Visit History AZALIA MATTHEW is a 51 year old M patient of LD GIMENEZ MD. Patient was admitted from to room 425, bed B on 05/20/22 19:14. Pt was evaluated for complaints of , then admitted to [facility] for SOB/COPD/CHEST DISCOMFORT/HEMOPTYSIS. AZALIA was admitted as a ADM to [facility] for further evaluation and treatment. Pt was seen and evaluated on 05/20/222050, by this provider, FRANKO WAKEFIELD CNP. History of present illness: Mr. Matthew a 51-year-old male [facility] with and reports that he has not been feeling well for the past few weeks. He reports shortness of breath that was followed by a cough then he started to have some left-sided flank pain. He also states for the last 2 days he has had some diarrhea. He also reports fever and productive cough with sputum which is brown-tinged. The symptoms have been going on for 3 to 4 weeks per the patient. 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 It was noted in the emergency room when he ambulated from the waiting room to the exam room he became extremely short of breath and required oxygen 2 L per nasal cannula. He also had audible wheezing. Patient has a past medical/surgical history that includes: Pneumonia, headache, obesity, appendectomy, laparoscopic cholecystectomy, kidney stones, arthritis, chronic back pain, lower lumbar pain, BMI greater than 50. Patient reports he did not receive the COVID vaccine or the flu shot. 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 He started smoking at the age of 17 to the present and smokes 1-1/2 to 2 packs/day. He does not drink alcohol or use illicit drugs. 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 Choose all that Apply: Male - [place]-Suicide Severity Rating Scale 1) Wish to be :: No 2) Suicidal Thoughts:: No 6) Suicidal Behavior Question (A): LIFETIME: No 6) Suicidal Behavior Question (B): PAST 3 MONTHS: No Past Medical History Hx Ear/Nose/Throat Disorders: No Hx Neurological Disorder: Yes PMH-Neurological: Confirms: Headaches Hx Psychosocial Problems: No Hx Cardiac Disorders: No Hx Respiratory Disorders: Yes PMH--Respiratory: Confirms: Pneumonia PMH--Other-Resp:: Productive Cough Currently - blood streaking. Hx Endocrine Disorders: No Hx Musculoskeletal Disorders: Yes PMH--Musculoskeletal: Confirms: Arthritis, Chronic Back Pain Hx Reproductive Disorders: No Hx Genitourinary Disorders: Yes PMH--Genitourinary: Confirms: Kidney Stones PMH--Other-:: lower lumbar Hx Gastrointestinal Disorders: Yes PMH--Gastrointestinal: Confirms: Obesity PMH--Other-GI:: BMI > 50 Kg/M squared Past Surgical Hx--GI: Confirms: Appendectomy, Lap. Cholecystectomy Hx Cancer: No Other PMH: Confirms: Chicken Pox Family Medical History - Family Medical History Mother Living Status: Still Living Endocrine History: Hypothyroidism Other Cancer History: ovary Father Living Status: Cause of : lung cancer Review of Systems General: Confirms: Fever (Fever off and on for 3 to 4 weeks). Denies: Chills, Sweats, Weakness, Fatigue, Weight Gain, Weight Loss, Other Head/Eye: Denies: Headache, Head Injury/Trama, Hear Loss, Pain, Itching, Redness, Matting, Blurry Vision, Double Vision, Scotoma (Spots), Amauriosis, Excessive Tearing, Other ENT: Denies: Earache, Ear Discharge, Decreased Hearing, Tinnitus, Nose Congestion, Nose Drainage, Nasal Ulcers, Epitaxis, Sore Throat, Throat Swelling,Hoarseness, Loss Of Voice, Tongue Pain, Tongue Swelling, Lip Swelling, Dental Pain, Cervical, Other Respiratory: Confirms: Cough (Productive sputum which is brown-tinged for 3 to 4weeks), Shortness of Breath. Denies: Wheezing, Sputum Production, Hemoptysis, Dyspnea on Exertion, Pleuritic Pain, Other Cardiovascular: Denies: Chest Pain-Sharp, Chest Pain-Heavy, Orthopnea, Short of Breath, Dyspnea on Exertion, Paroxysmal Noc. Dyspnea, Edema, Palpitations, LightHeadedness, 7, Syncope, Diaphoresis, Claudication, Edema, Other Gastrointestinal: Confirms: Diarrhea (Diarrhea x2 days), Other (Left-sided flankpain). Denies: Nausea, Vomiting, Abdominal Pain, Constipation, Melena, Hematochezia, Hematemesis, Rectal Pain Genitourinary: Denies: Dysuria, Frequency, Incontinence, Hematuria, Retention, Urgency, Other Musculoskeletal: Denies: Neck Pain, Shoulder Pain, Arm Pain, Back Pain, Hand Pain, Leg Pain, Foot Pain, Other Skin: Denies: Rash, Lesions, Jaundice, Bruising, Other Neurological: Denies: Weakness, Numbness, Incoordination, Change in Speech, Confusion, Seizures, Other Physical Exam Review of Systems Completed?: Yes Vital Signs: Vital Signs (72 hours) 05/20/22 05/20/22 05/20/22 16:32 17:18 17:53 Temperature 98.0 F Pulse Rate 86 Pulse Rate [ 82 Post- Resp. Treatment] Pulse Rate [Pre 86 - Resp. Treatment] Pulse Rate [ 93 Pulse Ox] Respiratory 20 Rate Respiratory 20 Rate [Post- Resp. Treatment ] Respiratory 18 Rate [Pre- Resp . Treatment] Blood Pressure Blood Pressure 163/88 H [Left Arm Sitting] O2 Sat by Pulse 93 98 94 Oximetry(%) 05/20/22 05/20/22 05/20/22 18:00 18:01 18:10 Temperature Pulse Rate 83 83 80 Pulse Rate [ Post- Resp. Treatment] Pulse Rate [Pre - Resp. Treatment] Pulse Rate [ Pulse Ox] Respiratory Rate Respiratory Rate [Post- Resp. Treatment ] Respiratory Rate [Pre- Resp . Treatment] Blood Pressure 133/59 Blood Pressure [Left Arm Sitting] O2 Sat by Pulse 95 95 94 Oximetry(%) 05/20/22 05/20/22 05/20/22 18:20 18:30 18:40 Temperature Pulse Rate 81 84 83 Pulse Rate [ Post- Resp. Treatment] Pulse Rate [Pre - Resp. Treatment] Pulse Rate [ Pulse Ox] Respiratory Rate Respiratory Rate [Post- Resp. Treatment ] Respiratory Rate [Pre- Resp . Treatment] Blood Pressure 124/67 Blood Pressure [Left Arm Sitting] O2 Sat by Pulse 93 93 93 Oximetry(%) 05/20/22 05/20/22 05/20/22 18:50 19:00 19:01 Temperature Pulse Rate 77 83 84 Pulse Rate [ Post- Resp. Treatment] Pulse Rate [Pre - Resp. Treatment] Pulse Rate [ Pulse Ox] Respiratory Rate Respiratory Rate [Post- Resp. Treatment ] Respiratory Rate [Pre- Resp . Treatment] Blood Pressure 125/66 Blood Pressure [Left Arm Sitting] O2 Sat by Pulse 95 94 95 Oximetry(%) 05/20/22 05/20/22 05/20/22 19:10 19:20 19:30 Temperature Pulse Rate 83 86 86 Pulse Rate [ Post- Resp. Treatment] Pulse Rate [Pre - Resp. Treatment] Pulse Rate [ Pulse Ox] Respiratory Rate Respiratory Rate [Post- Resp. Treatment ] Respiratory Rate [Pre- Resp . Treatment] Blood Pressure 128/66 Blood Pressure [Left Arm Sitting] O2 Sat by Pulse 97 94 92 L Oximetry(%) 05/20/22 05/20/22 05/20/22 19:40 19:50 20:00 Temperature Pulse Rate 88 82 85 Pulse Rate [ Post- Resp. Treatment] Pulse Rate [Pre - Resp. Treatment] Pulse Rate [ Pulse Ox] Respiratory Rate Respiratory Rate [Post- Resp. Treatment ] Respiratory Rate [Pre- Resp . Treatment] Blood Pressure 121/72 Blood Pressure [Left Arm Sitting] O2 Sat by Pulse 91 L 93 93 Oximetry(%) Genitourinary/Rectal: Yes: Deferred-Not Relevant Breast Exam: Yes: Deferred-Not Relevant Impressions - Problems (1) COPD (chronic obstructive pulmonary disease) Problems: COPD type: unspecified COPD Qualified Code(s): J44.9 - Chronic obstructive pulmonary disease, unspecified Status: Acute Priority: High Present on admission?: Yes Current Visit: Yes (2) Shortness of breath Status: Acute Priority: High Present on admission?: Yes Current Visit: Yes (3) Person under investigation for COVID-19 Status: Acute Priority: High Present on admission?: Yes Current Visit: Yes (4) Chest discomfort Status: Acute Priority: High Present on admission?: Yes Current Visit: Yes (5) Elevated d-dimer Status: Acute Current Visit: Yes Plan/Treatment Current Plan: See New Orders Plan: Impression/plan: 1. COPD/SOB: Patient is afebrile with a normal white count of 7.4. Chest x- rayfinds no acute process. Due to patient's severe clinical presentation we have decided to treat with steroids and antibiotics as well as nebulizer treatments. Patient has received Solu-Medrol 125 mg IV, Zithromax 500 mg IV and Rocephin 1 gIV in the emergency room. I will continue Solu-Medrol 40 mg IV every 6 hours, azithromycin 500 mg IV daily and Rocephin 1 g IV daily as well as duo nebs nebulizers 4 times daily and albuterol aerosol every 2 hours as needed shortnessof breath. Patient is normally on room air however is requiring oxygen 2 L per nasal cannula to maintain oxygen saturation in the mid 90s. We will continue tomonitor vital signs, CBC with differential, electrolytes, kidney function, respiratory status and oxygen saturation throughout his hospital stay. 2. COVID-19 POI: Due to patient's presenting symptoms we have swabbed him for influenza A&B as well as rapid COVID which are all negative. He has also been swabbed for COVID-19 with a PCR swab and we are awaiting those results in the meantime we have placed him in airborne isolation. 3. Chest discomfort: Troponins have been titrated and are as follows 7, 7, 5. EKG was done in the ER and found sinus rhythm with some nonspecific S-T elevation in lead II and aVF. The EKG was forwarded to Dr. Monreal, artificial log machine operator who did not find a STEMI. He has been consulted to evaluate the patient in the morning. In the meantime we will continue to trend troponins. I will also order a echo for the morning. 4. Elevated D-dimer: D-dimer is 0.66 upon presentation to the emergency. CTA is unable to be obtained due to patient's weight exceeds the weight limit of thetable. I have ordered a VQ scan for the morning. 5. Tobacco abuse: Patient is a smoker and can have NicoDerm patch if he feels it is necessary 6 DVT prophylaxis: Patient will wear NIMESH hose/SCDs if able and receive Lovenox 60 mg subcu every 12 hours which is dinner suggested for his BMI. Electronically Generated By:FRANKO WAKEFIELD CNP Generated Date/Time: 05/20/222050 Electronically Signed By: FRANKO WAKEFIELD CNP Signed Date/Time 05/21/2256 Co Signed Electronically By: <Electronically signed by ALLA HERNANDEZ MD> <Electronically signed by ALLA HERNANDEZ MD> Co Signed Date/Time: 05/22/22203705/22/222037 CC: AIDE MONREAL MD; LD GIMENEZ MD [facility] Work Phone: 1(839) 348-694101-21-2023 [place] [address] HEALTH INFORMATION MANAGEMENT HISTORY AND PHYSICAL : [id number] Signed Patient: AZALIA MATTHEW Acct:[id number] MRUN : [id number] : 1970 Sex: M Loc: 4TH FLOOR ADM Date: 05/20/22 Room/Bed: 425-B DISC Date: 05/21/22 History of Present Illness Date Of Admission: 05/20/22 Chief Complaint: SOB, Cough, L sided flank pain, diarrhea History of Present Illness: Visit History AZALIA MATTHEW is a 51 year old M patient of LD GIMENEZ MD. Patient was admitted from to room 425, bed B on 05/20/22 19:14. Pt was evaluated for complaints of , then admitted to [facility] for SOB/COPD/CHEST DISCOMFORT/HEMOPTYSIS. AZALIA was admitted as a ADM to [facility] for further evaluation and treatment. Pt was seen and evaluated on 05/20/222050, by this provider, FRANKO WAKEFIELD CNP. History of present illness: Mr. Matthew a 51-year-old male [facility] with and reports that he has not been feeling well for the past few weeks. He reports shortness of breath that was followed by a cough then he started to have some left-sided flank pain. He also states for the last 2 days he has had some diarrhea. He also reports fever and productive cough with sputum which is brown-tinged. The symptoms have been going on for 3 to 4 weeks per the patient. 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 It was noted in the emergency room when he ambulated from the waiting room to the exam room he became extremely short of breath and required oxygen 2 L per nasal cannula. He also had audible wheezing. Patient has a past medical/surgical history that includes: Pneumonia, headache, obesity, appendectomy, laparoscopic cholecystectomy, kidney stones, arthritis, chronic back pain, lower lumbar pain, BMI greater than 50. Patient reports he did not receive the COVID vaccine or the flu shot. 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 He started smoking at the age of 17 to the present and smokes 1-1/2 to 2 packs/day. He does not drink alcohol or use illicit drugs. 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 Choose all that Apply: Male - [place]-Suicide Severity Rating Scale 1) Wish to be :: No 2) Suicidal Thoughts:: No 6) Suicidal Behavior Question (A): LIFETIME: No 6) Suicidal Behavior Question (B): PAST 3 MONTHS: No Past Medical History Hx Ear/Nose/Throat Disorders: No Hx Neurological Disorder: Yes PMH-Neurological: Confirms: Headaches Hx Psychosocial Problems: No Hx Cardiac Disorders: No Hx Respiratory Disorders: Yes PMH--Respiratory: Confirms: Pneumonia PMH--Other-Resp:: Productive Cough Currently - blood streaking. Hx Endocrine Disorders: No Hx Musculoskeletal Disorders: Yes PMH--Musculoskeletal: Confirms: Arthritis, Chronic Back Pain Hx Reproductive Disorders: No Hx Genitourinary Disorders: Yes PMH--Genitourinary: Confirms: Kidney Stones PMH--Other-:: lower lumbar Hx Gastrointestinal Disorders: Yes PMH--Gastrointestinal: Confirms: Obesity PMH--Other-GI:: BMI > 50 Kg/M squared Past Surgical Hx--GI: Confirms: Appendectomy, Lap. Cholecystectomy Hx Cancer: No Other PMH: Confirms: Chicken Pox Family Medical History - Family Medical History Mother Living Status: Still Living Endocrine History: Hypothyroidism Other Cancer History: ovary Father Living Status: Cause of : lung cancer Review of Systems General: Confirms: Fever (Fever off and on for 3 to 4 weeks). Denies: Chills, Sweats, Weakness, Fatigue, Weight Gain, Weight Loss, Other Head/Eye: Denies: Headache, Head Injury/Trama, Hear Loss, Pain, Itching, Redness, Matting, Blurry Vision, Double Vision, Scotoma (Spots), Amauriosis, Excessive Tearing, Other ENT: Denies: Earache, Ear Discharge, Decreased Hearing, Tinnitus, Nose Congestion, Nose Drainage, Nasal Ulcers, Epitaxis, Sore Throat, Throat Swelling, Hoarseness, Loss Of Voice, Tongue Pain, Tongue Swelling, Lip Swelling, Dental Pain, Cervical, Other Respiratory: Confirms: Cough (Productive sputum which is brown-tinged for 3 to 4 weeks), Shortness of Breath. Denies: Wheezing, Sputum Production, Hemoptysis, Dyspnea on Exertion, Pleuritic Pain, Other Cardiovascular: Denies: Chest Pain-Sh (more content not included)...[id number] Discharge summary Author NELLY DIMAS [facility] May 20, 2022 10:42pm Note Date/Time May 20, 2022 5 :22pm [facility] [address] [place] [address] HEALTH INFORMATION MANAGEMENT EMERGENCY DEPARTMENT : [phone] Signed with Octaviano Patient: AZALIA MATTHEW Acct:[id number] MRUN: [id number] : 1970 Sex: M Loc: 4TH FLOOR ADM Date: 05/20/22 Room/Bed: 425-B DISC Date: ADDENDUM I have been informed of the ct mri technologist the CT will not be possible due to the patient's size, they are not able to get him on the CT table here. Further evaluation for PE can be done at by the inpatient team, consideration should be given for VQ scan, Doppler study, etc. Addendum: <Electronically signed by LIZBETH MCCLAIN DO> Signed Date/Time: 05/20/22 1936 Co-Signed: <Electronically signed by NELLY DIMAS MD> Co-signed Date/Time 05/20/22 2242 History of Present Illness <LIZBETH MCCLAIN - Last Filed: 05/20/22 19:32> - General Symptom onset: Within the last few weeks HPI: Patient reports he started not feeling well a few weeks ago. Was having shortness of breath and that was folowed by a cough which resulted in the some left sided pain, flank area. He also reports some diarrhea 2 days ago. Complaining of fever and productive sputum which is brown tinged, symptoms goingfor about 3 to 4 weeks per patient. 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 Not seen any doctor for the same year. Denies any pain in the extremities. No injury or fall. Does smoke but does not wear oxygen at home. Patient got extremely short of breath when he ambulated from the waiting room to the ER room 5. Was put on 2 Lnasal cannula, had some wheezing. Not vaccinated for COVID Mode of Transport: Ambulatory - History of Present Illness C\O Chest Pain?: No <WINGTRIPNELLY Ej - Last Filed: 05/20/22 22:41> - General Chief Complaint: URI symptoms Stated Complaint: PAIN LEFT LUNG SOB COUGH WEAKNESS Time Seen by Provider: 05/20/22 16:47 - Related Data Home Medications Medication Instructions Recorded Confirmed Ciprofloxacin HCl [Cipro] 500 mg PO BID #14 tablet 06/27/13 Ondansetron HCl [Zofran] 4 mg PO Q6H PRN #10 tablet 06/27/13 Allergies Allergy/AdvReac Type Severity Reaction Status Date / Time No Known Allergies Allergy Verified 06/27/13 20:42 Heart Score - Heart Score History: Slightly Suspicious ECG: Non-specific repolarization abnormality Age: 45-65 Risk Factors: 1-2 risk factors Troponin: < or = normal limit Heart Score Total: 3 Heart Score Interpretation: Low Risk ACS (HS 2-3) <WINGNELLY Ej - Last Filed: 05/20/22 22:41> Review of System - Constitutional Constitutional: Present: see HPI, Well developed, Well nourished, Non-toxic, Morbidly Obese. Absent: diaphoresis, fever - Nose,Throat,Mouth Nose (ROS): Present: no symptoms reported. Absent: pain Throat: Present: no symptoms reported. Absent: pain, swelling, discharge Mouth: Present: no symptoms reported. Absent: pain, swelling - Respiratory Respiratory: Present: see HPI, cough, sputum, hemoptysis. Absent: short of breath, wheezing - CV Cardiology: Present: no symptoms reported, see HPI, chest pain, CP with movement. Absent: edema, syncope - GI Gastrointestinal/Abdominal: Present: no symptoms reported. Absent: abdominal pain, diarrhea, nausea, vomiting - Genitourinary Symptoms: Present: no symptoms reported. Absent: dysuria - Neuro Neurological: Present: no symptoms reported. Absent: headache, weakness - Muskuloskeletal Musculoskeletal: Present: no symptoms reported. Absent: back pain, joint pain, joint swelling, neck pain - Integumentary Skin: Absent: lesions, rash - Allergic/Immunologic Immunological/Allergic: Present: no symptoms reported - Hematologic Hematologic/Lymphatic: Absent: easy bleeding, easy bruising, swollen glands - Endocrine Endocrine: Present: no symptoms reported - Psychiatric Psychiatric: Present: Normal Affect, Normal Mood. Absent: Depressed - All Others/Exceptions All Other Systems: Reviewed and Negative Except Where Noted in Documentation <NELLY DIMAS M - Last Filed: 05/20/22 22:41> ED PMH/Social HX/Family HX - Respiratory Hx Respiratory Disorders: Yes PMH--Respiratory: Pneumonia - Cardiovascular Hx Cardiac Disorders: No - Neurological Hx Neurological Disorder: Yes PMH--Neurological: Headaches - Endocrine Hx Endocrine Disorders: No - Gastrointestinal Hx Gastrointestinal Disorders: Yes PMH--Gastrointestinal: Obesity Past Surgical Hx--GI: Appendectomy, Lap. Cholecystectomy - Genitourinary Hx Genitourinary Disorders: Yes PMH--Genitourinary: Kidney Stones - Musculoskeletal Hx Musculoskeletal Disorders: Yes PMH--Musculoskeletal: Arthritis, Chronic Back Pain Other MS PMH: lower lumbar - Reproductive Hx Reproductive Disorders: No Other Reproductive PMH: BMI > 50 Kg/M squared - Psychological Hx Psychosocial Problems: No - HEENT Hx Ear, Nose Throat Disorders: No - Cancer Hx Cancer: No - Immunizations Hx Influenza Vaccination: No - Other Other PMH: Chicken Pox - Social History Marital Status: Able to Read: Yes Able to Write: Yes Smoking Status: Heavy Smoker (>10 cig/day) Hx Chewing Tobacco Use: No Alcohol Use: Rarely Any recreational drug use reported?: No Feels Threatened In Home Environment: No Feels Threatened In a Relationship: No Hx Physical Abuse: No - [place]/Gender ID What is your current Gender Identity? Choose all that Apply: Male - [place]-Suicide Severity Rating Scale 1) Wish to be :: No 2) Suicidal Thoughts:: No 6) Suicidal Behavior Question (A): LIFETIME: No 6) Suicidal Behavior Question (B): PAST 3 MONTHS: No <NELLY DIMAS - Last Filed: 05/20/22 22:41> General Exam - General Limitations: Complains of: no limitations Constitutional: Present: see HPI, Well developed, Well nourished, well hydrated,Non-toxic, Obese. Absent: chills, diaphoresis, fever, malaise, weakness, Lethargic - Head Head exam: Present: atraumatic, normocephalic, normal inspection - Eye Eye exam: Present: normal apperance, normal accomodation, EOMI Pupils: Present: PERRL - ENT ENT exam: Present: normal orophraynx, mucous membranes moist, TMs clear w/ good light reflex, normal external ear exam, No Nasal Discharge, Posterior Pharynx Non-erethemetous - Expanded ENT Exam Ear exam: Present: normal external inspection Mouth exam: Present: normal external inspection Teeth exam: Present: normal inspection Throat exam: normal inspection - Neck Neck exam: Present: full ROM, Supple. Absent: tenderness, meningismus, Posterior Lymphadenopathy, Anterior Lymphadenopathy - Respiratory Respiratory exam: Present: wheezes (bilateral), decreased breath sounds (Bilaterally). Absent: respiratory distress, rales, rhonchi, stridor, accessorymuscle use, prolonged expiratory phase, Nasal Flaring - Cardiovascular Cardiovascular Exam: Present: regular rate, normal rhythm, normal heart sounds. Absent: murmur, rubs, gallop, clicks - GI/Abdominal GI/Abdominal exam: Present: soft, non tender, normal bowel sounds. Absent: guarding, rebound, rigid, mass, bruit, tenderness - Extremities Exam Extremities exam: Present: normal inspection, neurovascularly intact, full ROM, normal muscle strength, normal/equal pulses, pedal edema. Absent: calf tenderness, tenderness - Back Exam Back exam: Present: normal inspection, full ROM. Absent: tenderness, vertebral tenderness - Neurological Exam Neurological exam: Present: alert, oriented X3, CN II-XII intact. Absent: motorsensory deficit - Expanded Neurological Exam Patient oriented to: Present: person, place, time Speech: Present: fluid speech - Psychiatric Psychiatric exam: Present: normal affect, normal mood - Skin Skin Color: Present: Normal, [place] Skin exam: Present: warm, dry - Expanded Skin Exam Type of lesion: Absent: rash <NELLY DIMAS M - Last Filed: 05/20/22 22:41> - Vital Signs Vital Signs 05/20/22 05/20/22 05/20/22 16:32 17:18 17:53 Temperature 98.0 F Pulse Rate 86 Pulse Rate [ 82 Post- Resp. Treatment] Pulse Rate [Pre 86 - Resp. Treatment] Pulse Rate [ 93 Pulse Ox] Respiratory 20 Rate Respiratory 20 Rate [Post- Resp. Treatment ] Respiratory 18 Rate [Pre- Resp . Treatment] Blood Pressure Blood Pressure 163/88 H [Left Arm Sitting] O2 Sat by Pulse 93 98 94 Oximetry(%) 05/20/22 05/20/22 05/20/22 18:00 18:01 18:10 Temperature Pulse Rate 83 83 80 Pulse Rate [ Post- Resp. Treatment] Pulse Rate [Pre - Resp. Treatment] Pulse Rate [ Pulse Ox] Respiratory Rate Respiratory Rate [Post- Resp. Treatment ] Respiratory Rate [Pre- Resp . Treatment] Blood Pressure 133/59 Blood Pressure [Left Arm Sitting] O2 Sat by Pulse 95 95 94 Oximetry(%) 05/20/22 05/20/22 05/20/22 18:20 18:30 18:40 Temperature Pulse Rate 81 84 83 Pulse Rate [ Post- Resp. Treatment] Pulse Rate [Pre - Resp. Treatment] Pulse Rate [ Pulse Ox] Respiratory Rate Respiratory Rate [Post- Resp. Treatment ] Respiratory Rate [Pre- Resp . Treatment] Blood Pressure 124/67 Blood Pressure [Left Arm Sitting] O2 Sat by Pulse 93 93 93 Oximetry(%) 05/20/22 05/20/22 05/20/22 18:50 19:00 19:01 Temperature Pulse Rate 77 83 84 Pulse Rate [ Post- Resp. Treatment] Pulse Rate [Pre - Resp. Treatment] Pulse Rate [ Pulse Ox] Respiratory Rate Respiratory Rate [Post- Resp. Treatment ] Respiratory Rate [Pre- Resp . Treatment] Blood Pressure 125/66 Blood Pressure [Left Arm Sitting] O2 Sat by Pulse 95 94 95 Oximetry(%) 05/20/22 05/20/22 05/20/22 19:10 19:20 19:30 Temperature Pulse Rate 83 86 86 Pulse Rate [ Post- Resp. Treatment] Pulse Rate [Pre - Resp. Treatment] Pulse Rate [ Pulse Ox] Respiratory Rate Respiratory Rate [Post- Resp. Treatment ] Respiratory Rate [Pre- Resp . Treatment] Blood Pressure 128/66 Blood Pressure [Left Arm Sitting] O2 Sat by Pulse 97 94 92 L Oximetry(%) 05/20/22 05/20/22 05/20/22 19:40 19:50 20:00 Temperature Pulse Rate 88 82 85 Pulse Rate [ Post- Resp. Treatment] Pulse Rate [Pre - Resp. Treatment] Pulse Rate [ Pulse Ox] Respiratory Rate Respiratory Rate [Post- Resp. Treatment ] Respiratory Rate [Pre- Resp . Treatment] Blood Pressure 121/72 Blood Pressure [Left Arm Sitting] O2 Sat by Pulse 91 L 93 93 Oximetry(%) SOB MDM - Lab Data Result diagrams: 05/20/22 17:13 05/20/22 17:13 <HARITHALIZBETH TRINIDAD J - Last Filed: 05/20/22 19:32> - Lab Data Result diagrams: 05/20/22 17:13 05/20/22 17:13 - Radiology Data Radiology Report: Radiology report reviewed,see report for findings - Differential Diagnosis Differential Diagnosis: Considered: Acute Respiratory Failure, ACS/NSTEMI, AcuteMI, Pneumonthorax, Anxiety/Hyperventilation, Upper Airway Obstruction, Pleural effusion, Pericardial effusion, Metabolic derangement, Cardiogenic shock, PSVT, Dysrhythmia, URI, Sinusitis, Other, Asthma, COPD-Exacerbation, Pneumonia, ARDS, CHF/Pulmonary Hypertension, PE, DKA <NELLY DIMAS - Last Filed: 05/20/22 22:41> - Lab Data Lab Results 05/20/22 05/20/22 05/20/22 Range/Units 17:13 17:13 17:13 WBC 7.4 (3.6-10.8) K/uL RBC 5.96 H (4.13-5.69) M/uL Hgb 17.1 (12.4-17.3) g/dL Hct 53.7 H (36.7-50.6) % MCV 90.1 (80.0-94.0) fL MCH 28.7 (27.0-31.0) pg MCHC 31.8 L (33.0-37.0) g/dL RDW 13.5 (11.5-14.5) % Plt Count 252 (148-402) K/uL MPV 9.9 (7.4-10.4) fL Neut % (Auto) 57.1 (43.0-65.0) % Lymph % (Auto) 31.7 (17.0-45.5) % Price % (Auto) 8.1 (5.5-11.7) % Eos % (Auto) 2.7 (0.9-2.9) % Baso % (Auto) 0.3 (0.2-1.0) % Abs Immat Gran (man) 0.01 (0.00-0.10) K/uL Absolute Neuts (auto) 4.25 (2.20-4.80) K/uL Absolute Lymphs (auto) 2.40 (1.30-2.90) K/uL Absolute Monos (auto) 0.60 (0.30-0.80) K/uL Absolute Eos (auto) 0.20 (0.00-0.20) K/uL Absolute Basos (auto) 0.02 (0.00-0.10) K/uL Immature Gran % 0.10 (0.00-1.00) % PT 9.2 (8.9-12.2) sec INR 0.97 ratio APTT 28.1 (19.5-32.1) sec D-Dimer 0.66 H* (0.00-0.49) mg/L FEU Sodium 142 (132-145) mmol/L Potassium 4.2 (3.3-5.1) mmol/L Chloride 103 (94-110) mmol/L Total Carbon Dioxide 31 (21-34) mmol/L Anion Gap 12.2 (8.0-16.0) mmol/L BUN 14.7 (3.2-26.9) mg/dL Creatinine 1.07 (0.50-1.17) mg/dL Est GFR (MDRD) Af Amer > 60 (>60) Est GFR (MDRD) Non-Af > 60 (>60) BUN/Creatinine Ratio 14 (6-20) Glucose 108 H (65-100) mg/dL Calcium 9.3 (8.2-10.0) mg/dL Total Bilirubin 0.34 (0.00-0.99) mg/dL AST 32 (3-39) U/L ALT 69 H (13-66) U/L Alkaline Phosphatase 210 H (54-112) U/L Troponin I High Sens 7 (0-76) ng/L NT-Pro-B Natriuret Pep (0-125) pg/mL Total Protein 8.2 (6.1-8.2) g/dL Albumin 3.6 (3.4-5.0) g/dL Globulin 4.6 H (1.5-4.5) g/dL Albumin/Globulin Ratio 0.8 L (1.1-2.5) Lipase 32 L (65-230) U/L Influenza Type A Ag ((Negative)) Influenza Type B Ag ((Negative)) SARS-CoV-2 Ag (Rapid) (Negative) 05/20/22 05/20/22 05/20/22 Range/Units 17:13 17:13 17:14 WBC (3.6-10.8) K/uL RBC (4.13-5.69) M/uL Hgb (12.4-17.3) g/dL Hct (36.7-50.6) % MCV (80.0-94.0) fL MCH (27.0-31.0) pg MCHC (33.0-37.0) g/dL RDW (11.5-14.5) % Plt Count (148-402) K/uL MPV (7.4-10.4) fL Neut % (Auto) (43.0-65.0) % Lymph % (Auto) (17.0-45.5) % Price % (Auto) (5.5-11.7) % Eos % (Auto) (0.9-2.9) % Baso % (Auto) (0.2-1.0) % Abs Immat Gran (man) (0.00-0.10) K/uL Absolute Neuts (auto) (2.20-4.80) K/uL Absolute Lymphs (auto) (1.30-2.90) K/uL Absolute Monos (auto) (0.30-0.80) K/uL Absolute Eos (auto) (0.00-0.20) K/uL Absolute Basos (auto) (0.00-0.10) K/uL Immature Gran % (0.00-1.00) % PT (8.9-12.2) sec INR ratio APTT (19.5-32.1) sec D-Dimer (0.00-0.49) mg/L FEU Sodium (132-145) mmol/L Potassium (3.3-5.1) mmol/L Chloride (94-110) mmol/L Total Carbon Dioxide (21-34) mmol/L Anion Gap (8.0-16.0) mmol/L BUN (3.2-26.9) mg/dL Creatinine (0.50-1.17) mg/dL Est GFR (MDRD) Af Amer (>60) Est GFR (MDRD) Non-Af (>60) BUN/Creatinine Ratio (6-20) Glucose (65-100) mg/dL Calcium (8.2-10.0) mg/dL Total Bilirubin (0.00-0.99) mg/dL AST (3-39) U/L ALT (13-66) U/L Alkaline Phosphatase (54-112) U/L Troponin I High Sens (0-76) ng/L NT-Pro-B Natriuret Pep 104 (0-125) pg/mL Total Protein (6.1-8.2) g/dL Albumin (3.4-5.0) g/dL Globulin (1.5-4.5) g/dL Albumin/Globulin Ratio (1.1-2.5) Lipase (65-230) U/L Influenza Type A Ag Negative ((Negative)) Influenza Type B Ag Negative ((Negative)) SARS-CoV-2 Ag (Rapid) Negative (Negative) Orders: Medications Discontinued Medications Albuterol/Ipratropium (Ipratropium/Albuterol Sulf Neb Solution) 3 ml IH STAT STA Stop: 05/20/22 17:19 Last Admin: 05/20/22 17:30 Dose: 3 ml Documented by: [email or web address] Albuterol/Ipratropium (Ipratropium/Albuterol Sulf Neb Solution) 3 ml IH STAT STA Stop: 05/20/22 17:19 Last Admin: 05/20/22 17:30 Dose: 3 ml Documented by: [email or web address] Aspirin (Aspirin 81 Mg Chew Tablet) 324 mg PO STAT STA Stop: 05/20/22 19:11 Last Admin: 05/20/22 19:27 Dose: 324 mg Documented by: [email or web address] Ceftriaxone Sodium 1 gm/ (Sodium Chloride) 50 mls @ 100 mls/hr IVPB STAT STA Stop: 05/20/22 18:33 Last Infusion: 05/20/22 19:00 Dose: 0 mls/hr, 0 mls/hr Documented by: [email or web address] Azithromycin 500 mg/ Sodium (Chloride) 250 mls @ 250 mls/hr IVPB STAT STA Stop: 05/20/22 19:03 Last Infusion: 05/20/22 19:24 Dose: 0 mls/hr, 0 mls/hr Documented by: [email or web address] Methylprednisolone Sodium Succinate (Methylprednisolone Sod Succ 125 Mg/2 Ml Injection) 125 mg IVP ONE ONE Stop: 05/20/22 17:19 Last Admin: 05/20/22 17:32 Dose: 125 mg Documented by: [email or web address] Labs 05/20/22 16:16 Novel Coronavirus CoVid-19 [REF] Stat 05/20/22 16:47 COVID19 Discontinue of Isolation [RC] PRN ED-IV [RC] ONE Isolation/Precautions [RC] QS CHEST AP [DIAG] Stat EKG [CAR] Stat Telemetry [RC] ONE 05/20/22 16:48 12-Lead per nursing [RC] STAT UA w/micrscopic-reflex culture [URN] Stat 05/20/22 16:49 Isolation/Precautions [RC] QS 05/20/22 17:13 CBC w/Auto Differential [HEM] Stat Comprehensive Metabolic Panel [CHM] Stat D-Dimer [CHM] Stat High Sensitivity Troponin I* [CHM] Stat Lipase [CHM] Stat NT Pro-BNP [CHM] Stat PT [COA] Stat PTT [COA] Stat SARS Antigen (Rapid) [CHM] Stat 05/20/22 17:14 Influenza A&B (Rapid) [IMM] Stat 05/20/22 17:18 Ipratropium/Albuterol Sulfate [Duoneb Nebulizer Solution] 3 ml IH STAT STA Ipratropium/Albuterol Sulfate [Duoneb Nebulizer Solution] 3 ml IH STAT STA Methylprednisolone Sod Succ [Solu Medrol 125 mg/2 ml Injection] 125 mg IVP ONEONE Respiratory Aerosol Treatment [RESP] ONE Respiratory Aerosol Treatment [RESP] ONE 05/20/22 18:04 Azithromycin [Zithromax 500 mg Injection] 500 mg Normal Saline [Sodium Chloride 0.9 % 250 ml] 250 ml IVPB STAT Ceftriaxone Sodium [Rocephin 1 Gram Injection] 1 gm Normal Saline [Sodium Chloride 0.9 % 50 ml] 50 ml IVPB STAT 05/20/22 18:15 12-Lead per nursing [RC] STAT EKG [CAR] Stat 05/20/22 19:09 Admission Order Routine EKG as Needed [RC] PRN Notify Physician of [RC] PRN Resuscitation Status Order Routine Physician Consult [CONS] Routine 05/20/22 19:10 Aspirin [Aspirin 81 mg Chew Tablet] 324 mg PO STAT STA 05/20/22 19:34 High Sensitivity Troponin I* [CHM] Routine - Radiology Data IMPRESSIONS Chest X-Ray 05/20/22 16:47 IMPRESSION: No acute process. Electrocardiogram 05/20/22 16:47 [facility] ED Test Date: 2022-05-20 Test Time: 17:55:04 Pat Name: AZALIA MATTHEW Department: Patient ID: [id number] Room: Gender: M Time Study Engineer: : 1970 Requested By: NELLY DIMAS Order Number: [id number] Reading MD: NELLY DIMAS Measurements Intervals [place] Rate: 81 P: 12 VA: 161 QRS: 45 QRSD: 103 T: 59 QT: 368 QTc: 428 Interpretive Statements Sinus rhythm Low voltage, precordial leads ST elev, probable normal early repol pattern Compared to ECG 01/05/2013 19:14:24 Low QRS voltage now present ST (T wave) deviation now present Electronically Signed On 05-20-2022 19:08:17 EST by NELLY DIMAS Electrocardiogram 05/20/22 18:15 [facility] ED Test Date: 2022-05-20 Test Time: 18:50:09 Pat Name: AZALIA MATTHEW Department: Patient ID: [id number] Room: Gender: M Time Study Engineer: : 1970 Requested By: NELLY DIMAS Order Number: [id number] Reading MD: NELLY DIMAS Measurements Intervals [place] Rate: 79 P: 13 VA: 161 QRS: 39 QRSD: 105 T: 50 QT: 380 QTc: 436 Interpretive Statements Sinus rhythm Low voltage, precordial leads ST elev, probable normal early repol pattern Compared to ECG 05/20/2022 17:55:04 No significant changes Electronically Signed On 05-20-2022 19:07:33 EST by NELLY DIMAS - Medical Decision Making Patient has been admitted to the hospital by dayscoft physician, I relieved him at 7 PM. Second troponin was pending, which I will follow up on. D-dimer is come back above the age-adjusted cut off, CT has been ordered to exclude pulmonary embolism. (LIZBETH MCCLAIN) Labs were ordered, rapid COVID and flu test are negative, chest x-ray shows no acute process. First troponin normal, D-dimer was borderline elevated 0.66. EKG showed sinus rhythm heart rate of 81. Some nonspecific elevation in lead II and aVF. EKG was sent to and reviewed by artificial log machine operator Dr. Monreal. No findings of STEMI per Dr. Monreal, he wanted a repeat EKG and to follow-up on the troponin. Patient was found 8 pounds we do not have CT that we will be able to take his wait for a CTA chest testing, suspicion for PE is low with a low borderline elevated dimer, however if needed. we could do a VQ scan during his hospital admission. Patient will be admitted for shortness of breath since, suspected COPD exacerbation and chest discomfort. Patient given Solu-Medrol and 2 DuoNeb treatments in the emergency room, will be started on IV Rocephin and IV Zithromax. Case discussed with admitting hospitalist Dr. Hernandez who will admit the patient and agrees with management plan, patient also states understanding of admission to [facility] and agrees with this Patient hemodynamically stable. No arrhythmias noted on the cardiac catheterization technician. Sats are stable on supplemental oxygen. No acute distress noted (NELLY DIMAS) ED Discharge Summary <LIZBETH MCCLAIN - Last Filed: 05/20/22 19:32> <NELLY DIMAS - Last Filed: 05/20/22 22:41> - Discharge Data Clinical Impression: Shortness of breath, Hemoptysis, COPD (chronic obstructive pulmonary disease), Chest discomfort, Person under investigation for COVID-19 Condition: Fair Disposition: 09 ADMITTED INPATIENT Home Medications: Ambulatory Orders Medication Instructions Recorded Ciprofloxacin HCl [Cipro] 500 mg PO BID #14 tablet 06/27/13 Ondansetron HCl [Zofran] 4 mg PO Q6H PRN #10 tablet 06/27/13 Time Seen by Provider: 05/20/22 16:47 Electronically Generated By:NELLY DIMAS MD Generated Date/Time: 05/20/22 9240 Electronically Signed By: LIZBETH MCCLAIN DO Signed Date/Time 05/20/221932 Co Signed Electronically By: Co Signed Date/Time: CC: AIDE MONREAL MD; LD GIMENEZ MD [facility] Work Phone: Discharge summary Author Zachariah Lantigua [facility] Note Date/Time September 06, 2024 4:15am [facility] Medical Records Department [address] [place] [address] Emergency Department Summary 09/06/24 MR#: [id number] Acct: [id number] Name: AZALIA MATTHEW II Rep #:[id number] : 1970 53 From: Zachariah Lantigua MD PCP: Care Physician,No Primary Status :REG ER Location: ED HPI History of Present Illness Chief Complaint: Shortness of Breath Informant: patient and friend Narrative Narrative: 53-year-old male with a history of COPD but taking no maintenance medications orinhalers/nebulizers states he has been having trouble breathing for a while but worse in the past 3 days with increased cough and sputum production, color changed to green, no blood, chills, and some pleuritic discomfort in his left lung at times but not constantly. No other chest pain. Feeling malaised. No new GI symptoms or abdominal pain, palpitations, syncope, leg edema changes. 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 Smoking Status: Current every day smoker tobacco type: cigarettes Tobacco: How many years used: 36 alcohol intake: never substance use type: does not use ROS ROS ED Constitutional Constitutional ED: Reports chills and malaise; Denies fever(s) Eyes Eyes: Denies change in vision or diplopia ENT ENT ED: Denies rhinorrhea or sore throat Cardiovascular Cardiovascular: Reports chest pain and other Details: Chronic leg edema without changes ; Denies palpitations or syncope Respiratory/Chest Respiratory/Chest: Reports cough, dyspnea, dyspnea on exertion and sputum Gastrointestinal Gastrointestinal: Denies abdominal pain, diarrhea, nausea or vomiting Genitourinary Genitourinary ED: Denies dysuria or hematuria Musculoskeletal Musculoskeletal: Denies back pain or neck pain Integumentary Denies abscess or rash Neurologic Neurologic: Denies headache(s), paresthesias or weakness Psychiatric Psychiatric: Denies anxiety or suicidal thoughts EXAM Physical Exam Const Vital Signs: 09/06/24 00:23 09/06/24 00:47 09/06/24 00:53 Temperature 98 F Temperature Source Oral Pulse Rate 86 88 Respiratory Rate 26 H 20 H Respiratory Effort Blood Pressure Blood Pressure Mean Pulse Ox 92 Oxygen Delivery Method Room Air Room Air Oxygen Flow Rate (L/min) Fraction of Inspired Oxygen (FIO2) 09/06/24 00:59 09/06/24 00:59 09/06/24 01:10 Temperature Temperature Source Pulse Rate Respiratory Rate Respiratory Effort Normal Blood Pressure 141/62 H Blood Pressure Mean 88 Pulse Ox Oxygen Delivery Method Nasal Cannula Oxygen Flow Rate (L/min) 3 Fraction of Inspired Oxygen (FIO2) 09/06/24 01:19 09/06/24 01:27 09/06/24 02:00 Temperature 97.9 F 98.2 F Temperature Source Oral Temporal Pulse Rate 81 78 Respiratory Rate 25 H 16 Respiratory Effort Blood Pressure 152/91 H 98/51 L Blood Pressure Mean 111 66 Pulse Ox 91 94 Oxygen Delivery Method Nasal Cannula Nasal Cannula Nasal Cannula Oxygen Flow Rate (L/min) 3 4 Fraction of Inspired Oxygen (FIO2) 3 09/06/24 02:23 09/06/24 03:00 09/06/24 04:00 Temperature 98.2 F 98.7 F Temperature Source Oral Oral Pulse Rate 77 75 76 Respiratory Rate 20 H 19 H Respiratory Effort Blood Pressure 139/75 H 150/82 H Blood Pressure Mean 96 104 Pulse Ox 96 93 Oxygen Delivery Method Nasal Cannula Nasal Cannula Oxygen Flow Rate (L/min) 4 4 Fraction of Inspired Oxygen (FIO2) Positive well nourished, well developed and obese General Appearance ED: well developed and NAD Nutritional Appearance: obese HEENT Reports moist mucous membranes normocephalic and atraumatic Eyes PERRL and EOMs intact bilaterally Neck full ROM, no lymphadenopathy, supple and no meningeal signs Resp clear to auscultation bilaterally Resp Narrative: A little tachypneic no distress, conversive in full sentences Cardio regular rate and regular rhythm Cardio Narrative: Faint heart sounds, exam limited by obesity GI non-tender and non-distended GI Narrative: Morbidly obese, nontender and without pain Auscultation: normoactive bowel sounds Palpation: soft Back/Spine no CVA tenderness General Back: other FROM Extremity normal to inspection General Extremety ED: Yes edema; Negative for pulses abnormal or tenderness General Extremity: edema bilateral lower extremity Details: moderate (Appears robinson chronic stasis dermatitis); Negative for pulses abnormal Neuro oriented x3, CN's II-XII intact bilaterally and no sensory deficits noted Sensorium / Orientation: awake and alert Motor Exam: strength 5/5 throughout Psych Thought Process: normal thought process Skin no rashes or lesions noted and no wounds MDM MDM MDM Narrative Medical decision making narrative: Patient is having symptoms consistent with a COPD exacerbation. After nebulizertreatment he feels better, however his oxygen went lower, down to 84% on room air and he is not on oxygen at home. Put him on nasal cannula which kept him inthe low 90s. Two-view chest x-ray on my interpretation shows possibility of bilateral pneumonia. Cardiac workup unremarkable. He is amenable to staying [facility]. Empiric antibiotics were started and I added a proBNP because of his diffuse leg edema bilaterally and a D-dimer. He is 53 and his D-dimer came back at 0.53. Technically the cutoff would be 0.52 for him when corrected for his age, however it is also noted that in 2 months he is going to be 54. He is feeling better, his symptoms are that of infection/COPD, so I think this is sensitive enough to rule out PE in context of his clinical symptoms. Given his hypoxemia, will admit. Solu-Medrol, Rocephin, Zithromax started. His proBNP came back within normal limits for his age. Lab Data Attestation: I reviewed the patient's lab results. Labs: Laboratory Results - last 24 hr 09/06/24 09/06/24 00:52 02:48 WBC 10.6 RBC 6.08 Hgb 17.7 H Hct 52.6 MCV 86.5 MCH 29.1 MCHC 33.7 RDW Std Deviation 43.9 RDW Coeff of Pradeep 13.9 Plt Count 258 MPV 9.6 Immature Gran % (Auto) 0.300 Neut % (Auto) 75.4 H Lymph % (Auto) 15.8 L Price % (Auto) 6.6 Eos % (Auto) 1.4 Baso % (Auto) 0.5 Absolute Neuts (auto) 8.0 H Absolute Lymphs (auto) 1.67 Nucleated RBC % 0 D-Dimer Quant (PE/DVT) 0.53 H* Sodium 137 Potassium 4.2 Chloride 101 Carbon Dioxide 24.5 Anion Gap 11 BUN 11 Creatinine 0.75 Estim Creat Clear Calc 203.83 Est GFR (MDRD) Non-Af 109 BUN/Creatinine Ratio 15.2 Glucose 113 H Calcium 8.9 Troponin T High Sens 10 Troponin T Hi Sens 2 Hr 9 NT pro BNP II 306 Radiography Diagnostic Testing: Clinical Impression(s) from Imaging Studies Chest X-Ray 09/06/24 01:20 IMPRESSION: Bilateral patchy increased appearance of the perihilar markings with a lower zone predominance may represent inflammatory/infectious process with possibility of edema considered less likely, clinically correlate. No pleural effusion. No focal consolidation. There is a continued appearance of narrowing of the midtrachea around the level of the clavicular heads which has a similar appearance to the prior studies and may represent possibility of goiter or otherprocess, clinically correlate. Reading Location: [facility] Rhythm Strip Rhythm Strip: Sinus Rhythm Rate: 78 Ectopy: None EKG Initial EKG: Attestation: I personally reviewed and interpreted this EKG as follows: Interpretation: Sinus Rhythm and No Acute Injury Pattern Comments: Nml axis & intervals; nml EKG Management Discussion w/another healthcare provider: Hospitalist Discharge Plan Dx/Rx/DC Orders Clinical Impression: Hypoxemia, Acute exacerbation of chronic obstructive pulmonary disease (COPD), Pneumonia Disposition Disposition: Acute Care Hospital [facility] What to do if you have Problems For any increased pain, shortness of breath, bleeding, nausea or vomiting, chestpain, or any unexpected problems, contact your Primary Care Provider. Call [facility] ([phone]) or report to the closest Emergency Room. Call 911 if necessary. 09/06/24 0415 <Electronically signed by Zachariah Lantigua MD> Cosigner Signature (if applicable): CC: No Primary Care Physician ~ Signed [facility] Work Phone: Evaluation note* Diagnosis Onset Date Resolution Status Chronic obstructive pulmonary disease acute Chest discomfort acute Positive D-dimer acute Hemoptysis acute Person under investigation for COVID-19 acute Shortness of breath acute [facility] Work Phone: Evaluation note* Diagnosis Heart failure (HCC)- Primary Heart failure, unspecified Bilateral lower leg cellulitis Cellulitis and abscess of leg, except foot Acute congestive heart failure, unspecified heart failure type (HCC) Hypoxia Hypoxemia Acute bilateral venous stasis dermatitis PVD (peripheral vascular disease) (HCC) Peripheral vascular disease, unspecified Heart failure, unspecified (HCC) Heart failure, unspecified Acute bilateral venous stasis dermatitis PVD (peripheral vascular disease) (HCC) Peripheral vascular disease, unspecified documented in this encounter [facility] Consultation (Emergency) - Open Specialty Diagnoses / Procedures Referred By Torito hussein Referred To Contact Family Medicine Diagnoses PVD (peripheral vascular disease) (HCC) Sara Ramirez MD [address] [place] [address] [facility] [place] [address] [address] [place] [address] Referral ID Status Reason Start Date Expiration Date Visits Re quested Visits Authorized [id number] Open 11/26/2023 12/26/2024 1 1 * (Routine) - Incomplete Specialty Diagnoses / Procedures Referred By Torito hussein Referred To Contact Sara Ramirez MD [address] [place] [address] Referral ID Status Reason Start Date Expiration Date V isits Requested Visits Authorized [id number] Incomplete 11/26/2023 12/26/2024 1 1 * Wound Consultation (Routine) - Open Specialty Diagnoses / Procedures Referred By Contac t Referred To Contact Wound Care Diagnoses Acute bilateral venous stasis dermatitis Sara Ramirez MD [facility] [place] [address] [facility] [address] [place] [address] Referral ID Status Reason Start Date Expiration Date Visits Re quested Visits Authorized [id number] Open 11/26/2023 12/26/2024 1 1 [facility]arrative)No reason for referral information availableWUniversity Hospitals [facility] Work Phone: Chief Complaint and Reason for Visit Chief Complaint SOB/COPD/CHEST DISCO MFORT/HEMOPTYSIS Reason for Visit Chronic obstructive pulmonary disease Chest discomfort Positive D-dimer Hemoptysis Person under investigation for COVID-19 Shortness of breath Chief Complaint Admit Date HYPOXIA DUE TO POSSIBLE VIRAL URI AND OH S WITH SINA June 14, 2024 12:28am HYPOXIA DUE TO POSSIBLE VIRAL URI AND OH S WITH SINA June 14, 2024 7:23am PNEUMONIA, AE COPD AND ESPIRATORY INSUFF ICIENCY. September 06, 2024 4:44am Reason for Visit Admit Date SINA (obstructive sleep apnea) June 022024 12:28am Tobacco abuse June 14, 2024 12:28am Viral URI with cough June 14, 2024 12:28am COPD (chronic obstructive pulmonary dise ase) June 14, 2024 12:28am Morbid obesity June 14, 2024 12:28am Acute respiratory insufficiency September 06, 2024 4:44am Elevated d-dimer September 06, 2024 4:44am Morbid obesity with BMI of 50.0-59.9, ad ult September 06, 2024 4:44am Obesity hypoventilation syndrome August 4:44am SINA (obstructive sleep apnea) September 06 025 4:44am Pneumonia September 06, 2024 4:44am Tobacco abuse September 06, 2024 4:44am Acute exacerbation of chroni c obstructive pulmonary disease (COPD) September 06, 2024 4:44am Chief Complaint Admit Date HYPOXIA DUE TO POSSIBLE VIRAL URI AND OH S WITH SINA June 14, 2024 12:28am HYPOXIA DUE TO POSSIBLE VIRAL URI AND OH S WITH SNIA June 14, 2024 7:23am PNEUMONIA, AE COPD AND ESPIRATORY INSUFF ICIENCY. September 06, 2024 4:44am PNEUMONIA, AE COPD AND ESPIRATORY INSUFF ICIENCY. September 07, 2024 4:06pm PNEUMONIA, AE COPD AND ESPIRATORY INSUFF ICIENCY. September 08, 2024 10:50am Reason for Visit Admit Date SINA (obstructive sleep apnea) June 022024 12:28am Tobacco abuse June 14, 2024 12:28am Viral URI with cough June 14, 2024 12:28am COPD (chronic obstructive pulmonary dise ase) June 14, 2024 12:28am Morbid obesity June 14, 2024 12:28am Acute respiratory insufficiency September 06, 2024 4:44am Elevated d-dimer September 06, 2024 4:44am Morbid obesity with BMI of 50.0-59.9, ad ult September 06, 2024 4:44am Obesity hypoventilation syndrome August 4:44am SINA (obstructive sleep apnea) September 06 025 4:44am Pneumonia September 06, 2024 4:44am Tobacco abuse September 06, 2024 4:44am Tracheal stenosis September 06, 2024 4:44am Acute exacerbation of chroni c obstructive pulmonary disease (COPD) September 06, 2024 4:44am Family History No Family History Records Found Relationship Condition Age at Onset Recorded Date/T barbara Mother Other Cancer History?ovary Unknown J anuary 2022 11:53pm Endocrine?Hypothyroidism Unknown Shaka uary 2022 11:53pm Unknown Endocrine?Hypothyroidism Unknown [facility] 2013 9:08am Gastrointestinal?Col orectal Cancer Unknown July 25, 2013 9:08am Musculoskeletal?Arthritis Unknown [facility] 2013 9:08am Psychological and Psychosocial?Alcohol Abuse Unknown July 25, 2013 9:08am Reproductive?Down Syndrome Unknown M arch 2013 9:08am Respiratory?Lung Cancer Unknown Naveed nugent 2013 9:08am Relationship Condition Age at Onset Recorded Date/T barbara mother Malignant neoplasm Unknown father Malignant neoplasm Unknown Advance Directives No Advanced Directives Records Found Advance Directive Response Recorded Date/ Time Advance Directives No May 20, 2022 11:26pm Advance Directives Information Provided Yes May 20, 2022 11:26pm Advanced Directive on File No Claus ry 2022 11:26pm Date Activated Date Inactivated Comments 11/26/2023 11:42 AM Date Activated Date Inactivated Comments 11/22/2023 5:14 PM 11/26/2023 11:42 AM Advance Directive Response Recorded Date/ Time Living Will No June 14, 2 025 2:15am Do you have a Healthcare Power of Ripening Room Attendant? No June 14, 2024 2:15am Do you have a Healthcare Power of Ripening Room Attendant? No September 06, 2024 12:54am Advance Directive Response Recorded Date/ Time Living Will No June 14, 2 025 2:15am Do you have a Healthcare Power of Ripening Room Attendant? No June 14, 2024 2:15am Do you have a Healthcare Power of Ripening Room Attendant? No September 06, 2024 6:16am Summary Purpose Additional Source Comments Care Teams (unrecognized sec tion and content) Team Status: Active Member Role Status Dates LD GIMENEZ MD Primary Care Provider Active Start: May 20, 2022 NELLY DIMAS MD Emergency Provider Active Start: May 20, 2022 AIDE MONREAL MD Other Provider Active Start: J anuary 2022 ALLA HERNANDEZ MD Admit Provider Active Start: May 20, 2022 ALLA HERNANDEZ MD Attending Provider Active Sta rt: May 20, 2022 RAY HERNANDEZ next of kin Active AZALIA MATTHEW Guarantor Active Stable Hand Relationship Specialty Start Date End Date Pcp, None [address] [facility] [place] [place] [address] PCP - General 11/22/23 Team Status: Active Member Role Status Dates No Primary Care Physician Primary Care Provider Active Team Status: Inactive Member Role Status Dates No Primary Care Physician Primary Care Provider Active Start: June 14, 2024 End: June 14, 2024 Dr. Jmi Cortes , Emergency Provider Active Start: June 14, 2024 End: June 14, 2024 Dr. Isma Sheikh , Admit Provider Active Start: June 14, 2024 End: June 14, 2024 Dr. Isma Sheikh , Other Provider Active Start: June 14, 2024 End: June 14, 2024 Dr. Ferny Coats DO Attending Provider Active Start: June 14, 2024 End: June 14, 2024 Team Status: Active Member Role Status Dates No Primary Care Physician Primary Care Provider Active Start: June 14, 2024 Dr. Jim Cortes , Emergency Provider Active Start: June 14, 2024 Dr. Isma Sheikh DO Admit Provider Active Start: June 14, 2024 Dr. Isma Sheikh DO Other Provider Active Start: June 14, 2024 Dr. Ferny Coats DO Attending Provider Active Start: June 14, 2024 Dr. Ferny Coats DO Other Provider Active Star t: June 14, 2024 Team Status: Active Member Role Status Dates No Primary Care Physician Primary Care Provider Active Start: September 06, 2024 Dr. Zachariah Lantigua MD Emergency Provider Active Start: September 06, 2024 Dr. Isma Sheikh DO Admit Provider Active Start: September 06, 2024 Dr. Isma Sheikh DO Attending Provider Active Start: September 06, 2024 Team Status: Inactive Member Role Status Dates No Primary Care Physician Primary Care Provider Active Start: September 06, 2024 End: September 08, 2024 Dr. Zachariah Lantigua MD Emergency Provider Active Start: September 06, 2024 End: September 08, 2024 Dr. Isma Sheikh , DO Admit Provider Active Start: September 06, 2024 End: September 08, 2024 Dr. Isma Sheikh DO Other Provider Active Start: September 06, 2024 End: September 08, 2024 Dr. Francesco Montgomery MD Attending Provider Active Start: September 06, 2024 End: September 08, 2024 Dr. Francesco Montgomery MD Other Provider Active Sta rt: September 06, 2024 Team Status: Active Member Role Status Dates No Primary Care Physician Primary Care Provider Active Start: September 06, 2024 Dr. Ferny Gustafson MD Attending Provider Active S tart: September 06, 2024 Team Status: Active Member Role Status Dates No Primary Care Physician Primary Care Provider Active Start: September 07, 2024 Dr. Zachariah Lantigua MD Emergency Provider Active Start: September 07, 2024 Dr. Isma Sheikh , Admit Provider Active Start: September 07, 2024 Dr. Isma Sheikh DO Other Provider Active Start: September 07, 2024 Dr. Francesco Montgomery MD Attending Provider Active Start: September 07, 2024 Dr. Francesco Montgomery MD Other Provider Active Sta rt: September 07, 2024 Team Status: Active Member Role Status Dates No Primary Care Physician Primary Care Provider Active Start: September 08, 2024 Dr. Zachariah Lantigua MD Emergency Provider Active Start: September 08, 2024 Dr. Isma Sheikh DO Admit Provider Active Start: September 08, 2024 Dr. Isma Sheikh DO Other Provider Active Start: September 08, 2024 Dr. Francesco Montgomery MD Attending Provider Active Start: September 08, 2024 Dr. Francesco Montgomery MD Other Provider Active Sta rt: September 08, 2024 (unrecognized sect ion and content) No Status Records FoundNo Status Records FoundNo Status Records Found INFORMATION SOURCE (unrecogn ized section and content) DATE CREATED AUTHOR 05/28/2022 [facility] DATE CREATED AUTHOR AUTHOR'S ORGANIZ ATION 12/30/2023 [facility] DATE CREATED AUTHOR AUTHOR'S ORGANIZ ATION 09/11/2024 [facility] Reason for Visit (unrecogniz ed section and content) Reason Comments Leg Swelling Specialty Diagnoses / Procedures Referred By Contac t Referred To Contact Diagnoses Hypoxia Bilateral lower leg cellulitis Acute congestive heart failure, unspecified heart failure type (HCC) Heart failure (HCC) Procedures NO PC OBS/NO TIME LIMIT/ NO PROC Referral ID Status Reason Start Date Expiration Date Visits Re quested Visits Authorized [id number] 1 1 Scheduled Active and Recently Administ ered Medications (unrecognized section and content) Medication Order 11/24/2023 11/25/2023 11/26/2023 Aquacel- Extra Hydrofiber Application 1 Application 1 Application , Topical, DAILY, First dose on Magaly 11/24/23 at 0900, Until Discontinued, Care: 1. Cleanse wound with: Normal Saline 2. Apply Aquacel ag cut to fit wounds on the bilateral lower legs 3. Cover wound with: Unna zinc strips loosely wrapped followed by kerlix from ankle to knee. , Wound 11/22/23 Pretibial Distal;Right, Wound 11/22/23 Pretibial Left, Wound 11/22/23 Pretibial Distal;Left 181 (Given - Provider: Jessica Taveras RN) 180 (Given - Provider: Emma Larkin LPN) 0820 (Canceled Entry - Provider: Yarely Arana LPN) Enoxaparin Sodium (LOVENOX) injection 60 mg 60 mg, Subcutaneous, EVERY 12 HOURS SCHEDULED (2 times per day), First dose on Tue11/22/23 at 2000, Until Discontinued, If administering subcutaneously: Do not administer into bruised or scarred skin, into or near wounds, or through clothing. For abdominal surgery patients, do not administer in the abdomen., Indications: Prophylaxis of Venous Thromboembolism, Allow pharmacy to adjust dose and frequency as needed based on indication of use, renal function, and other relevant information? Yes 0536 (Given - Provider: Lore Walter RN)1818 (Given - Provider: Jessica Taveras RN) 0533 (Given - Provider: Tawanda Smith RN)1802 (Given - Provider: Emma Larkin LPN) 0510 (Given - Provider: Tawanda Smith RN)1800 (Due) Furosemide (LASIX) injection 40 mg 40 mg, IV Push, EVERY 24 HOURS SCHEDULED (Daily), First dose on Magaly 11/24/23 at 1245, Until Discontinued, Caution: This medication looks and/or sounds like another medication. 1612 (Given - Provider: Jessica Taveras RN) 0533 (Given - Provider: Tawanda Smith RN) 0510 (Given - Provider: Tawanda Smith RN) HYDROmorphone (DILAUDID) injection 0.5 mg (COMPLETED) 0.5 mg, IV Push, ONCE, 1 dose, On Magaly 11/24/23 at 1215, Caution: This medication looks and/or sounds like another medication. 1146 (Given - Provider: Jessica Taveras RN) nicotine (NICODERM CQ) 21 MG/24HR 1 patch 1 patch (21 mg), Transdermal, EVERY 24 HOURS SCHEDULED (Daily), First dose on Tue11/22/23 at 1745, Until Discontinued 0902 (Not Given - Provider: Jessica Taveras RN - Reason: Patient/family refused) 18 (Not Given - Provider: Emma Larkin LPN - Reason: Patient/family refused) 818 (Not Given - Provider: Yarely Arana LPN - Reason: Patient/family refused) potassium chloride SA (K-DUR,KLOR-CON M20) CR tablet 40 mEq (COMPLETED) 40 mEq, Oral, ONCE, 1 dose, On Tue11/24/23 at 0715, If potassium level 3.4-3.6 Repeat potassium in AM 09 (Given - Provider: Jessica Taveras RN) silver sulfADIAZINE (SILVADENE) 1 % cream Topical, TWO TIMES A DAY, First dose on Tue11/26/23 at 0715, Until Discontinued, Rinse leg normal saline to areas then apply Silvadene may use tongue depressor placed on 4 x 4 a lot thick amounts over ulcer 4 x 4's and Curlex 1220 (Given - Provider: Yarely Arana LPN)1800 (Due) Unna-Flex Elastic Unna Boot 4x10 yards ex misc 1 Application (CANCELED) 1 Application, Topical, DAILY, First dose on Tue11/24/23 at 0900, Until Discontinued, After applying Aquacel ag to wounds on the bilateral lower legs, loosely wrap Unna zinc from ankle to knee followed by arlene. Change daily and prn. , Wound 11/22/23 Pretibial Distal;Right, Wound 11/22/23 Pretibial Left, Wound 11/22/23 Pretibial Distal;Left 1818 (Given - Provider: Jessica Taveras RN) 1801 (Given - Provider: Emma Larkin LPN) PRN Medication Order 11/24/2023 11/25/2023 11/26/2023 acetaminophen (TYLENOL) tablet 650 mg 650 mg, Oral, EVERY 6 HOURS PRN, Mild Pain, Fever, Headaches, Starting on Tue11/22/23 at 1714, Until Discontinued, Maximum dose of acetaminophen is 4000 mg from all sources in 24 hours. 1121 (Given - Provider: Jessica Taveras RN) 0527 (Given - Provider: Tawanda Smith RN) aluminum-magnesium hydroxide 200-200 MG/5ML suspension 30 mL 30 mL, Oral, EVERY 6 HOURS PRN, Indigestion, Starting on Tue11/22/23 at 1713, Until Discontinued calcium carbonate (TUMS) chewable tablet 1,000 mg 1,000 mg, Oral, EVERY 4 HOURS PRN, Heartburn, Starting on Tue11/22/23 at 1713, Until Discontinued For electrolyte abnormalities subsequent to initial labs (refer to the [facility] Electrolyte Replacement Orders) Other, PRN, For electrolyte abnormalities, Starting on Tue11/22/23 at 1712, Until Discontinued, For Potassium level <=3.9 or Magnesium level <=1.9, please use Order Set #100 to order medications and repeat labs. BE SURE TO CONTINUE PROTOCOL AFTER REPLACEMENT UNTIL LABS NORMALIZE. melatonin tablet 3 mg 3 mg, Oral, NIGHTLY PRN, Sleep, Starting on Tue11/22/23 at 1713, Until Discontinued nicotine polacrilex (COMMIT) lozenge 4 mg 4 mg, Oral, PRN, Smoking cessation, Starting on Tue11/22/23 at 171, Until Discontinued, Caution: Do not crush or chew. Ondansetron (ZOFRAN-ODT) disintegrating tablet 4 mg(Linked Group 1) 4 mg, Oral, EVERY 6 HOURS PRN, Nausea and/or Vomiting, Starting on Tue11/22/23 at 1713, Until Discontinued ondansetron hcl (ZOFRAN) injection 4 mg(Linked Group 1) 4 mg, IV Push, EVERY 6 HOURS PRN, Nausea and/or Vomiting, For nausea or vomiting unrelieved by oral Zofran after 30 minutes or if unable to tolerate oral intake, Starting on Tue11/22/23 at 171, Until Discontinued, Caution: This medication looks and/or sounds like another medication. oxyCODONE (ROXICODONE) immediate release tablet 5 mg 5 mg, Oral, EVERY 4 HOURS PRN, Moderate Pain, for dressing changes., Starting on Tue11/24/23 at 1143, Until Discontinued, Caution: This medication looks and/or sounds like another medication. 1540 (Given - Provider: Jessica Taveras RN) 1701 (Given - Provider: Emma Larkin LPN) 0907 (Given - Provider: Yarely Arana LPN) polyethylene glycol 3350 (GLYCOLAX, MIRALAX) packet 17 g 17 g, Oral, DAILY PRN, Constipation, constipation, Starting on Tue11/22/23 at 1713, Until Discontinued, This is a maintenance laxative, begin for prevention of constipation. Linked Groups Order Group 1: Ondansetron (ZOFRAN-ODT) disintegrating tablet 4 mgJump to med 4 mg, Oral, EVERY 6 HOURS PRN, Nausea and/or Vomiting, Starting on Tue11/22/23 at 1713, Until Discontinued Or ondansetron hcl (ZOFRAN) injection 4 mgJump to med 4 mg, IV Push, EVERY 6 HOURS PRN, Nausea and/or Vomiting, For nausea or vomiting unrelieved by oral Zofran after 30 minutes or if unable to tolerate oral intake, Starting on Tue11/22/23 at 1712, Until Discontinued, Caution: This medication looks and/or sounds like another medication. Goals (unrecognized section and content) Goals may be documented in a n alternate section FOR RECORDS PERTAINING TO PATIENTS WHO ARE OR HAVE BEEN ENROLLED IN A CHEMICAL DEPENDENCY/SUBSTANCEABUSE PROGRAM, SOME INFORMATION MAY BE OMITTED. This clinical summary was aggregated from multiple sources. Caution should be exercised in using it in the provision of clinical care. This summary normalizes information from multiple sources, and as a consequence, information in this document may materially change the coding, format and clinical context of patient data. In addition, data may be omitted in some cases. CLINICAL DECISIONS SHOULD BE BASED ON THE PRIMARY CLINICAL RECORDS. [employer] [facility]. provides no warranty or guarantee of the accuracy or completeness of information in this document.
[2024-11-09 22:53] LABS: Hematocrit 47.9 % (40-54); Hemoglobin 15.4 g/dL (13.0-16.5); Immature Granulocytes Count 0.020 X10^3/uL (0.0-0.0); Mean Corp Hgb Conc 32.2 g/dL (32-36); Mean Corpuscular Volume 89.2 fL (80-94); Mean Platelet Vol. 9.6 fl (6.2-12.0); NRBC Flagged by Analyzer 0 % (0-5); Platelet Count 253 K/mm3 (150-450); RBC Distribution Width CV 14.5 % (11.6-14.6); RBC Distribution Width SD 46.8 fl (35.1-43.9); Red Blood Count 5.37 M/mm3 (4.6-6.2); White Blood Count 8.3 K/mm3 (4.4-11.0)
[2024-11-09 23:14] LABS: Anion Gap 11 (5-15); BUN 11 mg/dL (4-19); BUN/Creat Ratio 14.3 RATIO (10-20); Calcium,Total 9.0 mg/dL (7.6-11.0); Carbon Dioxide 26.8 mmol/L (21.0-32.0); Chloride 101 mmol/L (98-108); Estimated Creatinine Clearance 232.29 ml/min (50-250); Glucose 93 mg/dL (70-99); Potassium 3.9 mmol/L (3.3-5.1); Pro- Brain NATRIURETIC PEPTIDE 184 pg/mL (<=900)
[2024-11-09 23:59] VITALS: BP 154/81; PULSE 67; RESP 21; O2SAT 92
[2024-11-10] VITALS (11 sets, daily range): BP systolic 113–168; BP diastolic 60–95; PULSE 66–87; RESP 13–20; TEMP 35.7–36.7; O2SAT 92–98; BMI 71.4
--- NOTE | 2024-11-10 00:06 | PCM.HP.STD ---
HPI - General General Date of Admission: 11/10/24 Date of Service: 11/10/24 Chief Complaint: Worsening shortness of breath and lower extremity swelling HPI Narrative AZALIA MARTÍNEZ, is a 53 M who presented to [facility] ED on 11/10/2024 with worsening shortness of breath and lower extremity swelling. Medical history significant for super morbid obesity with BMI 70, HFpEF, COPD, SINA, AntiBac obese. He was last hospitalized here in August for a COPD exacerbation. He presents today with progressive worsening shortness of breath and lower extremity swelling with heel pain. Notes that he recently became homeless. He was started on a medication apparently by his PCP for lower extremity swelling but it was not Lasix. In the ED he was mildly hypertensive to the 150s systolic. Oxygen saturation in the low 90s on room air at rest but dropped to the mid 80s with minimal exertion. Chest x-ray showed vascular congestion and pulmonary edema. Foot x-rays showed marked generalized bilateral lower extremity soft tissue edema with bilateral calcaneal spurs. CBC and BMP were fairly benign. NT proBNP normal at 168 though this is underestimated with obesity. Given CHF exacerbation with hypoxia, hospitalist was contacted for admission. I saw the patient at bedside in the ED. Patient was laying back in bed, conversing normally, in no acute distress. Denies any shortness of breath at rest. Denies any chest pain. Has chronic back pain that his writing him currently. Otherwise denies any other acute concerns. Will be admitted for further management. [facility] Medical History Tracheal stenosis Obesity hypoventilation syndrome SINA (obstructive sleep apnea) Tobacco abuse COPD (chronic obstructive pulmonary disease) History of cellulitis Morbid obesity Home Medications ?Medication ?Instructions ?Recorded ?Last Taken ?Type chlorthalidone 50 mg tablet 12.5 mg (1/4 x 50 mg) PO DAILY 30 09/08/24 Unknown Rx days #8 tabs dextromethorphan-guaifenesin ER 60 1 tab PO Q12H 7 days #14 tabs 09/08/24 Unknown Rx mg-1,200 mg tab,extend release,12hr (Mucinex DM) lisinopril 20 mg tablet 20 mg PO DAILY 30 days #30 tabs 09/08/24 Unknown Rx nicotine 14 mg/24 hr daily 14 mg transdermal DAILY 4 weeks 09/08/24 Unknown Rx transdermal patch #28 ea albuterol sulfate 90 mcg/actuation 1 inh inhalation Q6H PRN shortness 11/09/24 Unknown History breath activated powder inhaler of breath losartan 50 mg-hydrochlorothiazide 1 tab PO DAILY 11/09/24 Unknown History 12.5 mg tablet Allergy/AdvReac Type Severity Reaction Status Date / Time No Known Allergies Allergy Verified 11/09/24 22:03 Family History Mother Cancer Father Cancer Surgical History History of cholecystectomy History of appendectomy Social History household members: friend(s) 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 Smoking Status: Current every day smoker tobacco type: cigarettes Tobacco: How many years used: 36 alcohol intake: never substance use type: does not use ROS Constitutional Constitutional: Reports fatigue; Denies chills, fever(s) or weakness Eyes Eyes: Denies change in vision Cardiovascular Cardiovascular: Reports dyspnea on exertion and edema; Denies chest pain, lightheadedness, orthopnea or palpitations Respiratory/Chest Respiratory/Chest: Reports shortness of breath with exertion; Denies cough, shortness of breath at rest or wheezing Gastrointestinal Gastrointestinal: Denies abdominal pain Musculoskeletal Musculoskeletal: Denies arthralgias or myalgias Vital Signs Vital Signs Vital Signs: 11/09/24 22:00 11/09/24 22:29 11/09/24 23:59 Temperature 97.9 F Temperature Source Oral Pulse Rate 82 67 Respiratory Rate 18 21 H Blood Pressure 131/79 H 154/81 H Blood Pressure Mean 96 105 Pulse Ox 91 95 92 Oxygen Delivery Method Room Air Room Air Room Air 11/10/24 00:04 Temperature 98.1 F Temperature Source Pulse Rate 69 Respiratory Rate 18 Blood Pressure 154/81 H Blood Pressure Mean 105 Pulse Ox 92 Oxygen Delivery Method Weight Weight: 233.9 kg Body Mass Index (BMI) 71.8 Physical Exam Const alert, oriented x3 and no apparent distress Constitutional Narrative: Middle-age male, super morbid obesity, otherwise laying back comfortably in bed, conversing normally, in no acute distress. General Appearance: cooperative and comfortable HEENT normocephalic, head/scalp atraumatic, hearing grossly normal bilaterally, nasal mucous membranes and turbinates normal and moist oral mucous membranes Eyes PERRL, EOMs intact bilaterally and conjunctivae normal Neck full ROM Chest inspection of chest normal Resp normal respiratory effort and no use of accessory muscles Resp Narrative: Breathing comfortably on room air at rest. Diminished breath sounds throughout with crackles noted in mid lung zones bilaterally. No wheezing noted. Cardio regular rate, regular rhythm, no murmurs and peripheral pulses 2+ throughout GI normal to inspection, nondistended, normoactive bowel sounds, soft to palpation, non-tender and non-distended Back/Spine normal ROM Extremity Extremity Narrative: +3-4 lower extremity edema with erythema and chronic venous stasis changes noted. Psych mental status grossly normal Results Lab / Micro Data 11/09/24 22:28 11/09/24 22:28 Labs: Laboratory Results - last 24 hr 11/09/24 22:28: WBC 8.3, RBC 5.37, Hgb 15.4, Hct 47.9, MCV 89.2, MCH 28.7, MCHC 32.2, RDW Std Deviation 46.8 H, RDW Coeff of Pradeep 14.5, Plt Count 253, MPV 9.6, Immature Gran % (Auto) 0.200, Neut % (Auto) 66.1, Lymph % (Auto) 22.6, [place] % (Auto) 8.4, Eos % (Auto) 2.2, Baso % (Auto) 0.5, Absolute Neuts (auto) 5.5, Absolute Lymphs (auto) 1.88, Nucleated RBC % 0, Sodium 139, Potassium 3.9, Chloride 101, Carbon Dioxide 26.8, Anion Gap 11, BUN 11, Creatinine 0.73, Estim Creat Clear Calc 232.29, Est GFR (MDRD) Non-Af 109, BUN/Creatinine Ratio 14.3, Glucose 93, Calcium 9.0, NT pro BNP II 184 Imaging Radiology Impression Chest X-Ray 11/09/24 22:18 IMPRESSION: Cardiomegaly with vascular congestion and pulmonary edema. Reading Location: [facility] Lumbar Spine X-Ray 11/09/24 22:18 IMPRESSION: No evidence of acute fracture or subluxation. Multilevel degenerative changes. Reading Location: [facility] Foot X-Ray 11/09/24 22:23 IMPRESSION: 1. Bilateral calcaneal spurs. No acute abnormality. 2. Marked generalized bilateral lower extremity soft tissue edema. Reading Location: [facility] Foot X-Ray 11/09/24 22:45 IMPRESSION: 1. Bilateral calcaneal spurs. No acute abnormality. 2. Marked generalized bilateral lower extremity soft tissue edema. Reading Location: [facility] Assessment & Plan Assessment/Plan (1) Acute on chronic heart failure with preserved ejection fraction (HFpEF): (2) Bilateral leg edema: PLAN: Plan Patient is a 53-year-old male who presented to [facility] ED on 11/10/2024 with worsening shortness of breath and lower extremity swelling. 1. Acute on chronic HFpEF with hypoxia with exertion, lower extremity swelling with chronic venous stasis changes ? Admit under inpatient status to PCU. Chest x-ray with cardiomegaly with vascular congestion pulmonary edema. Foot x-rays with marked bilateral lower extremity swelling. BNP normal but underestimated with obesity. Hypoxic to 86% on exertion in the ED. Last echo in 12/2023 showed EF 65%, with otherwise technically difficult due to body habitus. Will treat with IV Lasix 40 mg every 8 hours for now. Monitor daily BMP and urine output. 2. Acute on chronic debility with homelessness, history of chronic back pain ? PT/OT/case management consulted. Patient reports recently becoming homeless, unclear where he is living right now. Debility is primarily due to obesity, chronic back pain, severe lower extremity swelling and bilateral heel pain from calcaneal spurs. Appreciate therapy and case management recommendations. Chronic medical conditions: ? Class III obesity with SINA: BMI 71 on admit. Complicates hospital course, care and prognosis. Continue PAP therapy at night. ? Hypertension: Continue home losartan?hydrochlorothiazide. ? COPD: No wheezing on exam, not in acute exacerbation. Continue home albuterol inhaler as needed. ? Tobacco abuse: Denied need for nicotine replacement therapy on admission. Discussed cessation on discharge. DVT prophylaxis: Lovenox twice daily CODE STATUS: Full code, verified Expected disposition: TBD Total clinical time spent by myself addressing the patient's medical issues, reviewing all the data, and collaborating with patient's care team: 75 minutes. Charges/Coding Visit Charges Inpatient E&M: 80811 Init Hosp L3
--- OUTSIDE RECORDS SUMMARY | 2024-11-10 00:37 | XMS RPT_ITS | CCD ---
Author Organization [facility] Care Team Providers Care Supervisor [employer] Name Role Phone MD LD GIMENEZ Primary Care Provider MD NELLY DIMAS Emergency Provider MD AIDE MONREAL Other Provider Unavailable MD [...] ailrehan Montgomery MD, Dr. Maya Attending Provider [phone] Janay PETTIT, Dr. Isaacs Attending Provider Ulises PETTIT, Dr. Maya Other Provider [phone] Care Physician, No Primary Primary Care Unava [...] No Primary Primary Care Unava ilable Julia COUNTER POCKET TRIMMER, Ray E Attending Unavailabl e Julia COUNTER POCKET TRIMMER, Ray E Consulting Unavailerika e Isma Parkinson Referring Unavailable Care Physician, No Primary Primary Care Unava ilable Julia COUNTER POCKET TRIMMER, Ray E Referring Unavailabl e Julia COUNTER POCKET TRIMMER, Ray E Attending Unavailabl e Julia COUNTER POCKET TRIMMER, Ray E Consulting Unavailabl e Irena Pérez Attending Unavailable Care Physician, No Primary Primary Care Unava ilable Julia COUNTER POCKET TRIMMER, Ray E Attending Unavailerika e Isma Parkinson Referring Unavailable Care Physician, No Primary Primary Care Unava ilable de Isma Peterson Consulting Unavailable Isma Sheikh Admitting Unavailable de Isma Peterson Attending Unavailable Ferny Coats Attending Unavailable Ferny Coats Consulting Unavailable Care Physician, No Primary Primary Care Unava ilable Julia COUNTER POCKET TRIMMER, Ray E Attending UnavailIsma Carolina Referring Unavailable [...] No Primary Primary Care Unava ilable Julia COUNTER POCKET TRIMMER, Ray E Attending Unavailabl e Isma Parkinson [...] extended release oral tablet (1 source) Uncompetitive F-yibyeb-P-asparta te Receptor Antagonist, Sigma-1 Agonist Start: 09-08-2024 [...] Until Discontinued Start: 11-22-2023 4 mg, Oral, NM N, Smoking cessation, Starting on Tue11/22/23 at 1713, Until Discontinued, Caution: Do not crush or chew. Quay (Nk) (1 source) Start: 06-13-2024 Quay (Nk) A ctive June 13, 2024 1:00am [...] subsequent to initial labs (refer to the [facility] Electrolyte Replacement Orders) (1 source) Start: 11-22-2023 [...] for IV injection., Radiology polyethylene glycol 3350 34849 mg powder for oral solution (1 source) [...] Range Facility Discharge Instructionon 08-30 Discharge Instruction [facility] Medical Records Department [address] [place] [address] Instructions for Home/Discharge Instructions 09/08/24 0941 MR#: [id number] Acct: [id number] Name: AZALIA MATTHEW II Rep #: [id number] : 1970 53 From: Francesco Montgomery MD [...] DO; No Primary Care Physician Signed Normal [facility] Absolute lymphocyte countOrd ered By: Isma Peterson on 09-07-2024 Lymphocytes Auto (Unsp spec) [#/Vol] 1.25 10*3/uL 0.83-4.51 [facility] Absolute neutrophil countOrd ered By: Isma Peterson on 09-07-2024 Neutrophils (Bld) [#/Vol] 10.1 10*3/uL High 2.0-7.7 [facility] Anion gap in Serum or Plasma Ordered By: Isma Peterson on 09-07-2024 Anion gap [Moles/Vol] 10 mmol/L 5-15 [facility] Automated blood erythrocyte countOrdered By: Isma Peterson on 09-07-2024 RBC (Bld) [#/Vol] 5.96 10*6/uL Normal 4.6-6.2 [facility] Comment on above: Performed By: #### L 500.4050, L501.2300, L100.0100 ####[facility] [address] [place], [place], [address] Automated blood hematocrit ( percentage)Ordered By: Isma Peterson on 09-07-2024 Hematocrit (Bld) [Volume fraction] 52.9 % Normal 40-54 [facility] Comment on above: Performed By: #### L 500.4050, L501.2300, L100.0100 ####[facility] [address] [place], [address] Automated lymphocyte count a s percentage of total leukocytesOrdered By: Isma Peterson on 09-07-2024 Lymphocytes/100 WBC Auto (Unsp spec) 10.7 % Low 19-41 [facility] BUN/creatinine ratioOrdered By: Isma Peterson on 09-07-2024 Urea nitrogen/Creatinine [Mass ratio] 18.5 mg/mg 10-20 [facility] Basophil percentageOrdered B y: Isma Peterson on 09-07-2024 Basophils/100 WBC (Bld) 0.2 % Normal 0-1 [facility] Comment on above: Performed By: #### L 500.4050, L501.2300, L100.0100 ####[facility] [address] [place], [address] Bilirubin, totalOrdered By: Isma Peterson on 09-07-2024 Bilirubin [Mass/Vol] 0.70 mg/dL Normal 0.00-1.30 [facility] Comment on above: Performed By: #### L 500.4050, L501.2300, L100.0100 ####[facility] [address] [place], [address] CBC W/Diff, Automatedon Absolute Lymph 1.25 X10 3/uL Normal 0.83-4.51 [facility] Comment on above: Performed By: #### L 500.4050, L501.2300, L100.0100 ####[facility] [address] [place], [address] Absolute Neut 10.1 X10 3/uL High 2.0-7.7 [facility] Comment on above: Performed By: #### L 500.4050, L501.2300, L100.0100 ####[facility] [address] [place], [address] IG% 0.400 Normal 0.0-0.9 [facility] Comment on above: Result Comment: IG% - Immature Granulocytes (promyelocytes, myelocytes and metamyelocytes) > 1% indicates that a LEFT SHIFT is Present. Performed By: #### L 500.4050, L501.2300, L100.0100 ####[facility] [address] [place], [address] Lymphocytes/100 WBC (Bld) 10.7 % Low 19-41 [facility] Comment on above: Performed By: #### L 500.4050, L501.2300, L100.0100 ####[facility] [address] [place], [address] Nucleated RBC (Bld) [#/Vol] 0 10*3/uL Normal 0-5 [facility] Comment on above: Performed By: #### L 500.4050, L501.2300, L100.0100 ####[facility] [address] [place], [address] RDW SD 45.1 fl High 35.1-43.9 [facility] Comment on above: Performed By: #### L 500.4050, L501.2300, L100.0100 ####[facility] [address] [place], [address] Carbon dioxide, total [Moles /volume] in Central venous bloodOrdered By: Isma Peterson on 09-07-2024 CO2 [Moles/Vol] 23.2 mmol/L Normal 21.0-32.0 [facility] Comment on above: Performed By: #### L 500.4050, L501.2300, L100.0100 ####[facility] [address] [place], [address] Chloride assayOrdered By: Ney Peterson on 09-07-2024 Chloride [Moles/Vol] 103 mmol/L Normal 98-108 [facility] Comment on above: Performed By: #### L 500.4050, L501.2300, L100.0100 ####[facility] [address] [place], [address] Comprehensive Metabolic Prof ilon 09-07-2024 ALK PHOS 174 U/L High 40-129 [facility] Comment on above: Performed By: #### L 500.4050, L501.2300, L100.0100 ####[facility] [address] [place], [address] BUN/CRE 18.5 RATIO Normal 10-20 [facility] Comment on above: Performed By: #### L 500.4050, L501.2300, L100.0100 ####[facility] [address] [place], [address] ECRCL 232.49 ml/min Normal 50-250 [facility] Comment on above: Performed By: #### L 500.4050, L501.2300, L100.0100 ####[facility] [address] [place], [address] GAP 10 Normal 5-15 [facility] Comment on above: Performed By: #### L 500.4050, L501.2300, L100.0100 ####[facility] [address] [place], [address] Potassium [Moles/Vol] 4.4 mmol/L Normal 3.3-5.1 [facility] Comment on above: Performed By: #### L 500.4050, L501.2300, L100.0100 ####[facility] [address] [place], [address] T PROT 7.8 g/dL Normal 5.9-8.4 [facility] Comment on above: Performed By: #### L 500.4050, L501.2300, L100.0100 ####[facility] [address] [place], [address] Comprehensive Metabolic Prof ilOrdered By: Isma Peterson on 09-07-2024 AST [Catalytic activity/Vol] 17 U/L Normal <=37 [facility] Comment on above: Performed By: #### L 500.4050, L501.2300, L100.0100 ####[facility] [address] [place], [address] Electrocardiogram reportOrde red By: Lizbeth Walsh on 09-07-2024 EKG study [facility] [address] [place] [address] 12 Lead EKG 09/06/24 0044 MR#: [id number] Acct: [id number] Name: AZALIA MATTHEW II Rep #:[id number] : 1970 53 From: Lizbeth de santiago MD Attending Dr: Dr. Francesco Montgomery MD Status: ADM IN Ordering Dr: Zachariah Lantigua MD Date: 09/06/24 Location: [facility] Sex: M C Admitted: 09/06/24 Test Reason : SOB Blood Pressure : */* mmHG Vent. Rate : 78 BPM Atrial Rate : 78 BPM P-R Int : 166 ms QRS Dur : 96 ms QT Int : 392 ms P-R-T Axes : 56 52 57 degrees QTcB Int : 446 ms Normal sinus rhythm Normal ECG Confirmed by Lizbeth Walsh ([id number]), loan expeditor PATRICK MORALES ([id number]) on 09/07/2024 12:18:10 PM Referred By: Confirmed By: Lizbeth Walsh 09/07/24 1218 Date _ Lizbeth Walsh MD CC: Dr. Zachariah Lantigua MD; Dr. Francesco Montgomery MD; No Primary Care Physician ~ Signed [facility] Other Phone: Eosinophil percentageOrdered By: Isma Peterson on 09-07-2024 Eosinophils/100 WBC (Bld) 0.0 % Normal 0-5 [facility] Comment on above: Performed By: #### L 500.4050, L501.2300, L100.0100 ####[facility] [address] [place], [address] Erythrocyte distribution wid th ratioOrdered By: Isma Peterson on 09-07-2024 Erythrocyte distribution width (RBC) [Ratio] 13.9 % Normal 11.6-14.6 [facility] Comment on above: Performed By: #### L 500.4050, L501.2300, L100.0100 ####[facility] [address] [place], [address] Erythrocyte distribution wid th standard deviationOrdered By: Isma Peterson on 09-07-2024 Erythrocyte distribution width (RBC) [Ratio] 45.1 fl High 35.1-43.9 [facility] Glomerular filtration rate ( GFR) estimation/1.73 sq m using serum, plasma, or whole bOrdered By: Isma Peterson on 09-07-2024 GFR/1.73 sq M.predicted among non-blacks MDRD (S/P/Bld) [Vol rate/Area] 113 mL/min/{1.73_m2} Normal >60 [facility] Comment on above: mL/min/1.73m2 CKD-EP I Creatinine Equation (2020) Result Comment: mL/m in/1.73m2 CKD-EPI Creatinine Equation (2020) Performed By: #### L 500.4050, L501.2300, L100.0100 ####[facility] [address] [place], [place], [id number] Hemoglobin measurementOrdere d By: Isma Peterson on 09-07-2024 Hemoglobin (Bld) [Mass/Vol] 17.6 g/dL High 13.0-16.5 [facility] Comment on above: Performed By: #### L 500.4050, L501.2300, L100.0100 ####[facility] [address] [place], [place], [address] Immature granulocytes/100 WB C Auto (Bld)Ordered By: Isma Peterson on 09-07-2024 Immature granulocytes/100 WBC (Bld) 0.400 % 0.0-0.9 [facility] Comment on above: IG% - Immature Granu locytes (promyelocytes, myelocytes and metamyelocytes) > 1% indicates that a LEFT SHIFT is Present. MCV (mean corpuscular volume ) determinationOrdered By: Isma Peterson on 09-07-2024 MCV (RBC) [Entitic vol] 88.8 fL Normal 80-94 [facility] Comment on above: Performed By: #### L 500.4050, L501.2300, L100.0100 ####[facility] [address] [place], [address] Mean corpuscular hemoglobin (MCH) determinationOrdered By: Isma Peterson on 09-07-2024 MCH (RBC) [Entitic mass] 29.5 pg Normal 27.0-32.0 [facility] Comment on above: Performed By: #### L 500.4050, L501.2300, L100.0100 ####[facility] [address] [place], [address] Mean corpuscular hemoglobin concentration (MCHC) determinationOrdered By: Isma Peterson on 09-07-2024 MCHC (RBC) [Mass/Vol] 33.3 g/dL Normal 32-36 [facility] Comment on above: Performed By: #### L 500.4050, L501.2300, L100.0100 ####[facility] [address] [place], [address] Mean platelet volume determi nationOrdered By: Isma Peterson on 09-07-2024 Platelet mean volume (Bld) [Entitic vol] 9.8 fL Normal 6.2-12.0 [facility] Comment on above: Performed By: #### L 500.4050, L501.2300, L100.0100 ####[facility] [address] [place], [address] Monocyte percentageOrdered B y: Isma Peterson on 09-07-2024 Monocytes/100 WBC (Bld) 3.0 % Normal 0-10 [facility] Comment on above: Performed By: #### L 500.4050, L501.2300, L100.0100 ####[facility] [address] [place], [address] Neutrophil percentageOrdered By: Isma Peterson on 09-07-2024 Neutrophils/100 WBC (Bld) 85.7 % High 47-70 [facility] Comment on above: Performed By: #### L 500.4050, L501.2300, L100.0100 ####[facility] [address] [place], [address] Nucleated red blood cell per centageOrdered By: Isma Peterson on 09-07-2024 Nucleated RBC/100 WBC (Bld) [Ratio] 0 % 0-5 [facility] Phosphoruson 09-07-2024 Phosphate [Mass/Vol] 2.8 mg/dL Normal 2.7-4.5 [facility] Comment on above: Performed By: #### L 500.4050, L501.2300, L100.0100 ####[facility] [address] [place], [address] Platelet countOrdered By: Ney Peterosn on 09-07-2024 Platelets (Bld) [#/Vol] 262 10*3/uL Normal 150-450 [facility] Comment on above: Performed By: #### L 500.4050, L501.2300, L100.0100 ####[facility] [address] [place], [address] Potassium measurement (mass/ volume)Ordered By: Isma Peterson on 09-07-2024 Potassium (Unsp spec) [Mass/Vol] 4.4 mmol/L 3.3-5.1 [facility] Serum creatinine measurement (mass/volume)Ordered By: Isma Peterson on 09-07-2024 Creatinine [Mass/Vol] 0.65 mg/dL Low 0.70-1.20 [facility] Comment on above: Performed By: #### L 500.4050, L501.2300, L100.0100 ####[facility] [address] [place], [address] Serum globulin measurementOr dered By: Isma Peterson on 09-07-2024 Globulin (S) [Mass/Vol] 3.9 g/dL Normal 2.2-4.2 [facility] Comment on above: Performed By: #### L 500.4050, L501.2300, L100.0100 ####[facility] [address] [place], [address] Serum glucose measurement (m ass/volume)Ordered By: Isma Peterson on 09-07-2024 Glucose [Mass/Vol] 156 mg/dL High 70-99 [facility] Comment on above: Performed By: #### L 500.4050, L501.2300, L100.0100 ####[facility] [address] [place], [address] Serum or plasma alanine cast otransferase (ALT) measurementOrdered By: Isma Peterson on 09-07-2024 ALT [Catalytic activity/Vol] 23 U/L Normal <=46 [facility] Comment on above: Performed By: #### L 500.4050, L501.2300, L100.0100 ####[facility] [address] [place], [address] Serum or plasma albumin rosa urement (mass/volume)Ordered By: Isma Peterson on 09-07-2024 Albumin [Mass/Vol] 3.9 g/dL Normal 3.5-5.0 [facility] Comment on above: Performed By: #### L 500.4050, L501.2300, L100.0100 ####[facility] [address] [place], [address] Serum or plasma albumin/glob ulin mass ratioOrdered By: Isma Peterson on 09-07-2024 Albumin/Globulin [Mass ratio] 1.0 {ratio} Normal 0.9-2.4 [facility] Comment on above: Performed By: #### L 500.4050, L501.2300, L100.0100 ####[facility] [address] [place], [address] Serum or plasma alkaline roldan sphatase measurementOrdered By: Isma Peterson on 09-07-2024 ALP [Catalytic activity/Vol] 174 U/L High 40-129 [facility] Serum or plasma calcium rosa urement (mass/volume)Ordered By: Isma Peterson on 09-07-2024 Calcium [Mass/Vol] 9.1 mg/dL Normal 7.6-11.0 [facility] Comment on above: Performed By: #### L 500.4050, L501.2300, L100.0100 ####[facility] [address] [place], [address] Serum or plasma urea nitroge n measurement (mass/volume)Ordered By: Isma Peterson on 09-07-2024 Urea nitrogen [Mass/Vol] 12 mg/dL Normal 4-19 [facility] Comment on above: Performed By: #### L 500.4050, L501.2300, L100.0100 ####[facility] [address] [place], [address] Sodium levelOrdered By: Ethan Peterson on 09-07-2024 Sodium [Moles/Vol] 136 mmol/L Normal 133-145 [facility] Comment on above: Performed By: #### L 500.4050, L501.2300, L100.0100 ####[facility] [address] [place], [address] Total proteinOrdered By: Bryan Peterson on 09-07-2024 Protein [Mass/Vol] 7.8 g/dL 5.9-8.4 [facility] White blood cell (WBC) count Ordered By: Isma Peterson on 09-07-2024 WBC (Bld) [#/Vol] 11.7 10*3/uL High 4.4-11.0 [facility] Comment on above: Performed By: #### L 500.4050, L501.2300, L100.0100 ####[facility] [address] [place], [address] 12 Lead EKGon 09-06-2024 12 Lead EKG [facility] Cardiovascular Services [address] [place] [address] 12 Lead EKG 09/06/24 0044 MR#: [id number] Acct: [id number] Name: AZALIA MATTHEW II Rep #: [id number] : 1970 53 From: Lizbeth Walsh MD Attending Dr: Dr. Francesco Montgomery MD Status: ADM IN Ordering Dr: Zachariah Lantigua MD Date: 09/06/24 Location: [facility] Sex: M C Admitted: 09/06/24 Test Reason : SOB Blood Pressure : */* mmHG Vent. Rate : 78 BPM Atrial Rate : 78 BPM P-R Int : 166 ms QRS Dur : 96 ms QT Int : 392 ms P-R-T Axes : 56 52 57 degrees QTcB Int : 446 ms Normal sinus rhythm Normal ECG Confirmed by Lizbeth Walsh ([id number]), loan expeditor PATRICK MORALES ([id number]) on 09/07/2024 12:18:10 PM Referred By: Confirmed By: Lizbeth Walsh 09/07/24 1218 Date Lizbeth Walsh MD CC: Dr. Zachariah Lantigua MD; Dr. Francesco Montgomery MD; No Primary Care Physician Signed Normal [facility] Absolute lymphocyte countOrd ered By: Zachariah Lantigua on 09-06-2024 Lymphocytes Auto (Unsp spec) [#/Vol] 1.67 10*3/uL 0.83-4.51 [facility] Absolute neutrophil countOrd ered By: Zachariah Lantigua on 09-06-2024 Neutrophils (Bld) [#/Vol] 8.0 10*3/uL High 2.0-7.7 [facility] Anion gap in Serum or Plasma Ordered By: Zachariah Lantigua on 09-06-2024 Anion gap [Moles/Vol] 11 mmol/L 5-15 [facility] Automated lymphocyte count a s percentage of total leukocytesOrdered By: Zachariah Lantigua on 09-06-2024 Lymphocytes/100 WBC Auto (Unsp spec) 15.8 % Low 19-41 [facility] BUN/creatinine ratioOrdered By: Zachariah Lantigua on 09-06-2024 Urea nitrogen/Creatinine [Mass ratio] 15.2 mg/mg - [facility] Basic Metabolic Profile (BMP )on 09-06-2024 BUN/CRE 15.2 RATIO Normal - [facility] Comment on above: Performed By: #### L 300.4310, L300.3900, L500.4050, L503.6620, L503.6005, L100.0100 #### [facility] Laboratory [address] [place], [address] Calcium [Mass/Vol] 8.9 mg/dL Normal 7.6-11.0 [facility] Comment on above: Performed By: #### L 300.4310, L300.3900, L500.4050, L503.6620, L503.6005, L100.0100 #### [facility] Laboratory [address] [place], [address] Chloride [Moles/Vol] 101 mmol/L Normal 98-108 [facility] Comment on above: Performed By: #### L 300.4310, L300.3900, L500.4050, L503.6620, L503.6005, L100.0100 #### [facility] Laboratory [address] [place], [address] CO2 [Moles/Vol] 24.5 mmol/L Normal 21.0-32.0 [facility] Comment on above: Performed By: #### L 300.4310, L300.3900, L500.4050, L503.6620, L503.6005, L100.0100 #### [facility] Laboratory [address] [place], [address] Creatinine [Mass/Vol] 0.75 mg/dL Normal 0.70-1.20 [facility] Comment on above: Performed By: #### L 300.4310, L300.3900, L500.4050, L503.6620, L503.6005, L100.0100 #### [facility] Laboratory [address] [place], [address] ECRCL 203.83 ml/min Normal 50-250 [facility] Comment on above: Performed By: #### L 300.4310, L300.3900, L500.4050, L503.6620, L503.6005, L100.0100 #### [facility] Laboratory [address] [place], [address] GAP 11 Normal 5-15 [facility] Comment on above: Performed By: #### L 300.4310, L300.3900, L500.4050, L503.6620, L503.6005, L100.0100 #### [facility] Laboratory [address] [place], [address] GFR/1.73 sq M.predicted among non-blacks MDRD (S/P/Bld) [Vol rate/Area] 109 mL/min/{1.73_m2} Normal >60 [facility] Comment on above: Result Comment: mL/m in/1.73m2 CKD-EPI Creatinine Equation (2020) Performed By: #### L 300.4310, L300.3900, L500.4050, L503.6620, L503.6005, L100.0100 #### [facility] Laboratory [address] [place], [address] Glucose [Mass/Vol] 113 mg/dL High 70-99 [facility] Comment on above: Performed By: #### L 300.4310, L300.3900, L500.4050, L503.6620, L503.6005, L100.0100 #### [facility] [address] [place], [address] Potassium [Moles/Vol] 4.2 mmol/L Normal 3.3-5.1 [facility] Comment on above: Result Comment: Hemo lysis present, Results??could be affected. ?? Performed By: #### L 300.4310, L300.3900, L500.4050, L503.6620, L503.6005, L100.0100 #### [facility] [address] [place], [address] Sodium [Moles/Vol] 137 mmol/L Normal 133-145 [facility] Comment on above: Performed By: #### L 300.4310, L300.3900, L500.4050, L503.6620, L503.6005, L100.0100 #### [facility] [address] [place], [address] Urea nitrogen [Mass/Vol] 11 mg/dL Normal 4-19 [facility] Comment on above: Performed By: #### L 300.4310, L300.3900, L500.4050, L503.6620, L503.6005, L100.0100 #### [facility] [address] [place], [address] Basophil percentageOrdered B y: Zachariah Lantigua on 09-06-2024 Basophils/100 WBC (Bld) 0.5 % 0-1 [facility] Bilirubin Test strip Ql (U)O rdered By: Isma Peterson on 09-06-2024 Bilirubin Ql (U) Negative Negative [facility] CBC W/Diff, Automatedon Absolute Lymph 1.67 X10 3/uL Normal 0.83-4.51 [facility] Comment on above: Performed By: #### L 300.4310, L300.3900, L500.4050, L503.6620, L503.6005, L100.0100 #### [facility] [address] [place], [address] Absolute Neut 8.0 X10 3/uL High 2.0-7.7 [facility] Comment on above: Performed By: #### L 300.4310, L300.3900, L500.4050, L503.6620, L503.6005, L100.0100 #### [facility] [address] [place], [address] Basophils/100 WBC (Bld) 0.5 % Normal 0-1 [facility] Comment on above: Performed By: #### L 300.4310, L300.3900, L500.4050, L503.6620, L503.6005, L100.0100 #### [facility] [address] [place], [address] Eosinophils/100 WBC (Bld) 1.4 % Normal 0-5 [facility] Comment on above: Performed By: #### L 300.4310, L300.3900, L500.4050, L503.6620, L503.6005, L100.0100 #### [facility] [address] [place], [address] Erythrocyte distribution width (RBC) [Ratio] 13.9 % Normal 11.6-14.6 [facility] Comment on above: Performed By: #### L 300.4310, L300.3900, L500.4050, L503.6620, L503.6005, L100.0100 #### [facility] [address] [place], [address] Hematocrit (Bld) [Volume fraction] 52.6 % Normal 40-54 [facility] Comment on above: Performed By: #### L 300.4310, L300.3900, L500.4050, L503.6620, L503.6005, L100.0100 #### [facility] [address] [place], [address] Hemoglobin (Bld) [Mass/Vol] 17.7 g/dL High 13.0-16.5 [facility] Comment on above: Performed By: #### L 300.4310, L300.3900, L500.4050, L503.6620, L503.6005, L100.0100 #### [facility] [address] [place], [address] IG% 0.300 Normal 0.0-0.9 [facility] Comment on above: Result Comment: IG% - Immature Granulocytes (promyelocytes, myelocytes and metamyelocytes) > 1% indicates that a LEFT SHIFT is Present. Performed By: #### L 300.4310, L300.3900, L500.4050, L503.6620, L503.6005, L100.0100 #### [facility] [address] [place], [address] Lymphocytes/100 WBC (Bld) 15.8 % Low 19-41 [facility] Comment on above: Performed By: #### L 300.4310, L300.3900, L500.4050, L503.6620, L503.6005, L100.0100 #### [facility] [address] [place], [address] MCH (RBC) [Entitic mass] 29.1 pg Normal 27.0-32.0 [facility] Comment on above: Performed By: #### L 300.4310, L300.3900, L500.4050, L503.6620, L503.6005, L100.0100 #### [facility] [address] [place], [address] MCHC (RBC) [Mass/Vol] 33.7 g/dL Normal 32-36 [facility] Comment on above: Performed By: #### L 300.4310, L300.3900, L500.4050, L503.6620, L503.6005, L100.0100 #### [facility] [address] [place], [address] MCV (RBC) [Entitic vol] 86.5 fL Normal 80-94 [facility] Comment on above: Performed By: #### L 300.4310, L300.3900, L500.4050, L503.6620, L503.6005, L100.0100 #### [facility] [address] [place], [address] Monocytes/100 WBC (Bld) 6.6 % Normal 0-10 [facility] Comment on above: Performed By: #### L 300.4310, L300.3900, L500.4050, L503.6620, L503.6005, L100.0100 #### [facility] [address] [place], [address] Neutrophils/100 WBC (Bld) 75.4 % High 47-70 [facility] Comment on above: Performed By: #### L 300.4310, L300.3900, L500.4050, L503.6620, L503.6005, L100.0100 #### [facility] [address] [place], [address] Nucleated RBC (Bld) [#/Vol] 0 10*3/uL Normal 0-5 [facility] Comment on above: Performed By: #### L 300.4310, L300.3900, L500.4050, L503.6620, L503.6005, L100.0100 #### [facility] [address] [place], [address] Platelet mean volume (Bld) [Entitic vol] 9.6 fL Normal 6.2-12.0 [facility] Comment on above: Performed By: #### L 300.4310, L300.3900, L500.4050, L503.6620, L503.6005, L100.0100 #### [facility] [address] [place], [address] Platelets (Bld) [#/Vol] 258 10*3/uL Normal 150-450 [facility] Comment on above: Performed By: #### L 300.4310, L300.3900, L500.4050, L503.6620, L503.6005, L100.0100 #### [facility] [address] [place], [address] RBC (Bld) [#/Vol] 6.08 10*6/uL Normal 4.6-6.2 [facility] Comment on above: Performed By: #### L 300.4310, L300.3900, L500.4050, L503.6620, L503.6005, L100.0100 #### [facility] [address] [place], [address] RDW SD 43.9 fl Normal 35.1-43.9 [facility] Comment on above: Performed By: #### L 300.4310, L300.3900, L500.4050, L503.6620, L503.6005, L100.0100 #### [facility] [address] [place], [address] WBC (Bld) [#/Vol] 10.6 10*3/uL Normal 4.4-11.0 [facility] Comment on above: Performed By: #### L 300.4310, L300.3900, L500.4050, L503.6620, L503.6005, L100.0100 #### [facility] [address] [place], [address] CTA Chest W/WO Contraston CTA Chest W/WO Contrast [facility] Imaging Services [address] [place] [address] CTA Chest W/WO Contrast MR#: [id number] Acct: [id number] Name: AZALIA MATTHEW TARI Rep #: [id number] : 1970 M 53 From: Jas Steve MD PCP: Care Physician,No Primary Status: ADM IN Study: CTA Chest W/WO Contrast Date of Exam: 09/06/24 Exam# [id number] Ordering Dr: Isma Sheikh DO PROCEDURE: CTA [...] not excluded. No focal consolidation. Reading Location: [id number] CC: Dr. Isma Sheikh DO; No Primary Care Physician Patient Support Representative: Signed Normal [facility] Carbon dioxide, total [Moles /volume] in Central venous bloodOrdered By: Zachariah Lantigua on 09-06-2024 CO2 [Moles/Vol] 24.5 mmol/L 21.0-32.0 [facility] Chest PA and Lateralon 09-06 Chest PA and Lateral [facility] Imaging Services [address] [place], [place] [address] Chest PA and Lateral MR#: [id number] Acct: [id number] Name: AZALIA MATTHEW II Rep #: [id number] : 1970 M 53 From: Jas Steve MD PCP: Care Physician,No Primary Status: REG ER Study: Chest PA and Lateral Date of Exam: 09/06/24 Exam# [id number] Ordering Dr: Zachariah Lantigua MD PROCEDURE: CHEST PA AND LATERAL [...] or other process, clinically correlate. Reading Location: [facility] CC: Dr. Zachariah Lantigua MD; No Primary Care Physician Patient Support Representative: Signed Normal [facility] Chloride assayOrdered By: Jovita Lantigua on 09-06-2024 Chloride [Moles/Vol] 101 mmol/L 98-108 [facility] D-Dimer Quantitative (DVT/PE )on 09-06-2024 D-DIMER QUANT 0.53 FEU/ug/m Invalid Interpretation Code 0.27-0.49 [facility] Comment on above: Result Comment: D-Di jc ELEVATED (>0.49): Additional studies and clinical assessments are indicated to conclude diagnosis of: Deep Vein Thrombosis (DVT) or Pulmonary Embolism (PE) CRITICAL VALUE CALLED TO LSPARR 09/06/24 0254 Bunny Castrejon. RESULTS READ BACK BY SAME. Performed By: #### L 300.4310, L300.3900, L500.4050, L503.6620, L503.6005, L100.0100 #### [facility] [address] [facility] [place], [address] Emergency Department Summary on 09-06-2024 Emergency Department Summary [facility] Medical Records Department [address] [place] [address] Emergency Department Summary 09/06/24 MR#: [id number] Acct: [id number] Name: AZALIA MATTHEW II Rep #: [id number] : 1970 53 From: Zachariah Lantigua MD [...] abdominal pain, palpitations, syncope, leg edema changes. 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 Normal [facility] Eosinophil percentageOrdered By: Zachariah Lantigua on 09-06-2024 Eosinophils/100 WBC (Bld) 1.4 % 0-5 [facility] Erythrocyte distribution wid th ratioOrdered By: Zachariah Lantigua on 09-06-2024 Erythrocyte distribution width (RBC) [Ratio] 13.9 % 11.6-14.6 [facility] Erythrocyte distribution wid th standard deviationOrdered By: [place] Grzegorz on 09-06-2024 Erythrocyte distribution width (RBC) [Ratio] 43.9 fl 35.1-43.9 [facility] Glomerular filtration rate ( GFR) estimation/1.73 sq m using serum, plasma, or whole bOrdered By: Zachariah Lantigua on 09-06-2024 GFR/1.73 sq M.predicted among non-blacks MDRD (S/P/Bld) [Vol rate/Area] 109 mL/min/{1.73_m2} >60 [facility] Comment on above: mL/min/1.73m2 CKD-EP I Creatinine Equation (2020) H AND P Exam - [facility] 09-06-2024 H&P Exam - Hospitalist [facility] Medical Records Department [address] [place] [address] H P Exam - Hospitalist 09/06/24 0409 MR#: [id number] Acct: [id number] Name: AZALIA MATTHEW II Rep #: [id number] : 1970 53 From: Isma Sheikh DO PCP: Care Physician,No Primary Status:ADM IN Location: [facility] [id number] HPI - General General Date of Admission: [...] flaring at that time who re-presents to [facility] ER complaining of shortness of breath. Mr. [...] status expected to extend beyond 2 midnights. 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 Normal [facility] Hematocrit Auto (Bld) [Volum e fraction]Ordered By: Zahcariah Lantigua on 09-06-2024 Hematocrit (Bld) [Volume fraction] 52.6 % 40-54 [facility] Hemoglobin measurementOrdere d By: Zachariah Lantigua on 09-06-2024 Hemoglobin (Bld) [Mass/Vol] 17.7 g/dL High 13.0-16.5 [facility] Immature granulocytes/100 WB C Auto (Bld)Ordered By: Zachariah Lantigua on 09-06-2024 Immature granulocytes/100 WBC (Bld) 0.300 % 0.0-0.9 [facility] Comment on above: IG% - Immature Granu locytes (promyelocytes, myelocytes and metamyelocytes) > 1% indicates that a LEFT SHIFT is Present. Influenza virus A and B and SARS-CoV-2 (COVID-19) and Respiratory syncytial virus RNAOrdered By: Zachariah Lantigua on 09-06-2024 SARS-CoV-2 (COVID-19) RNA BANDAR+probe Ql (Unsp spec) [facility] Ketones Test strip Ql (U)Ord ered By: Isma Peterson on 09-06-2024 Ketones Ql (U) Negative Negative [facility] L499.0042on 09-06-2024 Trop T High Sen 9 ng/L Normal <=22 [facility] Comment on above: Performed By: #### L 300.4310, L300.3900, L500.4050, L503.6620, L503.6005, L100.0100 #### [facility] Laboratory [address] [place], [place], [address] L499.0043on 09-06-2024 Trop T High Sen Normal <=22 [facility] Comment on above: Result Comment: Canc elled via OM: no longer needed Performed By: #### L 300.4310, L300.3900, L500.4050, L503.6620, L503.6005, L100.0100 #### [facility] [address] [place], [address] L501.4021on 09-06-2024 Trop T High Sen 10 ng/L Normal <=22 [facility] Comment on above: Performed By: #### L 300.4310, L300.3900, L500.4050, L503.6620, L503.6005, L100.0100 #### [facility] [address] [place], [address] L503.7505on 09-06-2024 Natriuretic peptide B (Bld) [Mass/Vol] 306 pg/mL Normal <=900 [facility] Comment on above: Result Comment: Hear t Failure Unlikely: < 300 pg/mL Heart Failure Likely < 50 Years: > 450 pg/mL 50-75 Years: > 900 pg/mL >75 Years: > 1800 pg/mL Performed By: #### L 300.4310, L300.3900, L500.4050, L503.6620, L503.6005, L100.0100 #### [facility] [address] [place], [address] M100.678on 09-06-2024 M100.678 SARS-CoV-2 (COVID 19 ) Negative INFLUENZA A Negative INFLUENZA B Negative RSV PCR Negative Normal [facility] Comment on above: Performed By: #### M 100.678 ####[facility] [address] [place], [address] MCV (mean corpuscular volume ) determinationOrdered By: Zachariah Lantigua on 09-06-2024 MCV (RBC) [Entitic vol] 86.5 fL 80-94 [facility] Magnesiumon 09-06-2024 Magnesium [Mass/Vol] 2.1 mg/dL Normal 1.5-2.2 [facility] Comment on above: Performed By: #### L 501.5200, L501.9520 ####[facility] [address] [place], [address] Magnesium measurement (mass/ volume)Ordered By: Isma Peterson on 09-06-2024 Magnesium (Unsp spec) [Mass/Vol] 2.1 mg/dL 1.5-2.2 [facility] Mean corpuscular hemoglobin (MCH) determinationOrdered By: Zachariah Lantigua on 09-06-2024 MCH (RBC) [Entitic mass] 29.1 pg 27.0-32.0 [facility] Mean corpuscular hemoglobin concentration (MCHC) determinationOrdered By: Zachariah Lantigua on 09-06-2024 MCHC (RBC) [Mass/Vol] 33.7 g/dL 32-36 [facility] Mean platelet volume determi nationOrdered By: Zachariah Lantigua on 09-06-2024 Platelet mean volume (Bld) [Entitic vol] 9.6 fL 6.2-12.0 [facility] Microscopic analysis of urin e for red blood cells (RBC)Ordered By: Isma Peterson on 09-06-2024 Microscopic analysis of urine for red blood cells (RBC) 0-5 SEEN /hpf 0-5 [facility] Monocyte percentageOrdered B y: Zachariah Lantigua on 09-06-2024 Monocytes/100 WBC (Bld) 6.6 % 0-10 [facility] Mucus LM Ql (Urine sed)Order ed By: Isma Peterson on 09-06-2024 Mucus Ql (Urine sed) 0 SEEN /hpf [facility] Natriuretic peptide.B prohor diana N-Terminal [Mass/volume] in Serum or PlasmaOrdered By: Zachariah Lantigua on 09-06-2024 Natriuretic peptide.B prohormone N-Terminal [Mass/Vol] 306 pg/mL <900 [facility] Comment on above: Heart Failure Unlike ly: < 300 pg/mLHeart Failure Likely< 50 Years: > 450 pg/mL50-75 Years: > 900 pg/mL>75 Years: > 1800 pg/mL Neutrophil percentageOrdered By: Zachariah Lantigua on 09-06-2024 Neutrophils/100 WBC (Bld) 75.4 % High 47-70 [facility] Nitrite Test strip Ql (U)Ord ered By: Isma Peterson on 09-06-2024 Nitrite Ql (U) Negative Negative [facility] Nucleated red blood cell per centageOrdered By: Zachariah Lantigua on 09-06-2024 Nucleated RBC/100 WBC (Bld) [Ratio] 0 % 0-5 [facility] Platelet countOrdered By: Jovita Lantigua on 09-06-2024 Platelets (Bld) [#/Vol] 258 10*3/uL 150-450 [facility] Potassium measurement (mass/ volume)Ordered By: Zachariah Lantigua on 09-06-2024 Potassium (Unsp spec) [Mass/Vol] 4.2 mmol/L 3.3-5.1 [facility] Comment on above: Hemolysis present, R esults could be affected. Protein Test strip Ql (U)Ord ered By: Isma Peterson on 09-06-2024 Protein Ql (U) 30 mg/dl High Negative [facility] RBC Auto (Bld) [#/Vol]Ordere d By: Zachariah Lantigua on 09-06-2024 RBC (Bld) [#/Vol] 6.08 10*6/uL 4.6-6.2 [facility] RESPIRATORY PANEL MOLECULARo n 09-06-2024 RP PANEL ADENOVIRUS Not Detected INFLUENZA A Not Detected INFLUENZA A (SUBTYPE H1) Not Detected INFLUENZA A (SUBTYPE H3) Not Detected INFLUENZA B Not Detected HUMAN METAPHNEUMO Not Detected PARAINFLUENZA 1 Not Detected PARAINFLUENZA 2 Not Detected PARAINFLUENZA 3 Not Detected PARAINFLUENZA 4 Not Detected RHINOVIRUS Not Detected RSV A Not Detected RSV B Not Detected Normal [facility] Comment on above: Performed By: #### L 300.4310, L300.3900, L500.4050, L503.6620, L503.6005, L100.0100 #### [facility] [address] [place], [address] Respiratory pathogens detect ion panel by molecular detection methodOrdered By: Isma Peterson on 09-06-2024 Respiratory pathogens DNA and RNA panel BANDAR+probe (Resp) [facility] Serum creatinine measurement (mass/volume)Ordered By: Zachariah Lantigua on 09-06-2024 Creatinine [Mass/Vol] 0.75 mg/dL 0.70-1.20 [facility] Serum glucose measurement (m ass/volume)Ordered By: Zachariah Lantigua on 09-06-2024 Glucose [Mass/Vol] 113 mg/dL High 70-99 [facility] Serum or plasma calcium rosa urement (mass/volume)Ordered By: Zachariah Lantigua on 09-06-2024 Calcium [Mass/Vol] 8.9 mg/dL 7.6-11.0 [facility] Serum or plasma urea nitroge n measurement (mass/volume)Ordered By: Zachariah Lantigua on 09-06-2024 Urea nitrogen [Mass/Vol] 11 mg/dL 4-19 [facility] Sodium levelOrdered By: [place] Lantigua on 09-06-2024 Sodium [Moles/Vol] 137 mmol/L 133-145 [facility] Squamous epithelial cells de tection in urine sediment by light microscopyOrdered By: Isma Peterson on 09-06-2024 Epithelial cells.squamous LM Ql (Urine sed) 0-5 SEEN /hpf 0-5 [facility] TSH DL <= 0.005 mIU/L QnOrde red By: Isma Peetrson on 09-06-2024 TSH Qn 3.070 uIU/mL 0.300-4.20 0 [facility] Thyroidon 09-06-2024 Thyroid [facility] Imaging Services [address] [place] [address] Thyroid MR#: [id number] Acct: [id number] Name: AZALIA MATTHEW II Rep #: [id number] : 1970 M 53 From: Ferny Munoz MD PCP: Care Physician,No Primary Status: ADM IN Study: Thyroid Date of Exam: 09/06/24 Exam# [id number] Ordering Dr: Isma Sheikh DO PROCEDURE: ULTRASOUND [...] Isma Sheikh, DO; No Primary Care Physician Patient Support Representative: Signed Normal [facility] Thyroid Stim Hormone (TSH)on 09-06-2024 TSH 3.070 uIU/mL Normal 0.300-4.20 0 [facility] Comment on above: Performed By: #### L 501.5200, L501.9520 ####[facility] [address] [place], [place], [id number] Troponin T.cardiac [Mass/vol ume] in Serum or Plasma by High sensitivity methodOrdered By: Zachariah Lantigua on 09-06-2024 Troponin T.cardiac High sensitivity method [Mass/Vol] 9 ng/L <22 [facility] Troponin T.cardiac High sensitivity method [Mass/Vol] 10 ng/L <22 [facility] Urinalysis, Completeon 09-06 EPI,SQUAMOUS 0-5 SEEN Normal 0-5 [facility] Comment on above: Order Comment: CLEAN CATCH Performed By: #### L 300.4310, L300.3900, L500.4050, L503.6620, L503.6005, L100.0100 #### [facility] Laboratory [address] [place], [place], [id number] (898) RBC 0-5 SEEN Normal 0-5 [facility] Comment on above: Order Comment: CLEAN CATCH Performed By: #### L 300.4310, L300.3900, L500.4050, L503.6620, L503.6005, L100.0100 #### [facility] [address] [place], [address] WBC 0-5 SEEN Normal 0-5 [facility] Comment on above: Order Comment: CLEAN CATCH Performed By: #### L 300.4310, L300.3900, L500.4050, L503.6620, L503.6005, L100.0100 #### [facility] [address] [place], [address] BACTERIA 0 SEEN Normal None Seen [facility] Comment on above: Order Comment: CLEAN CATCH Performed By: #### L 300.4310, L300.3900, L500.4050, L503.6620, L503.6005, L100.0100 #### [facility] [address] [place], [address] Mucus Ql (Urine sed) 0 SEEN Normal [facility] Comment on above: Order Comment: CLEAN CATCH Performed By: #### L 300.4310, L300.3900, L500.4050, L503.6620, L503.6005, L100.0100 #### [facility] Laboratory [address] [place], [address] Urine clarityOrdered By: Bryan Peterson on 09-06-2024 Clarity (U) Clear Clear [facility] Urine color determinationOrd ered By: Isma Peterson on 09-06-2024 Color (U) Yellow Yellow [facility] Urine glucose detectionOrder ed By: Isma Peterson on 09-06-2024 Glucose Ql (U) Normal mg/dl Normal [facility] Urine leukocyte esterase det ection by dipstickOrdered By: Isma Peterson on 09-06-2024 Leukocyte esterase Test strip Ql (U) Negative Negative [facility] Urine pHOrdered By: Isma arthur on 09-06-2024 pH (U) 5.0 [pH] 5.0 - 8.0 [facility] Urine sediment bacteria coun t by microscopy (number/high power field)Ordered By: Isma Peterson on 09-06-2024 Bacteria LM.HPF (Urine sed) [#/Area] 0 /[HPF] None Seen [facility] Urine specific gravity measu rementOrdered By: Isma Peterson on 09-06-2024 Specific gravity (U) [Rel density] 1.010 1.002-1.03 0 [facility] Urine urobilinogen measureme ntOrdered By: Isma Peterson on 09-06-2024 Urobilinogen Ql (U) Normal mg/dl Normal [facility] Venous Duplex US - Sammy Extre [facility] 09-06-2024 Venous Duplex US - Sammy Extrem [facility] [address] [place] [address] Venous Duplex US - Sammy Extrem 09/06/24 0831 MR#: [id number] Acct: [id number] Name: AZALIA MATTHEW II Rep #: [id number] : 1970 53 From: Ferny Gustafson MD Attending Dr: Dr. Francesco Montgomery MD Status: ADM IN Ordering Dr: Isma Sheikh DO Date: 09/06/24 Location: [facility] Sex: M C Admitted: 09/06/24 Reason [...] preliminary report was called and/or faxed to [facility]. VL/Venous Duplex US - Sammy Extrem [...] Physician Date Dictated: 09/06/24830 Date Transcribed: 09/06/241106 Patient Support Representative: Signed Normal [facility] Venous duplex ultrasound rep ortOrdered By: Ferny Gustafson on 09-06-2024 [facility] [address] [place] [address] Venous Duplex US - Sammy Extrem 09/06/24830 MR#: [id number] Acct: [id number] Name: AZALIA MATTHEW II Rep #:[id number] : 1970 53 From: Ferny Hawkins Attending Dr: Dr. Francesco Montgomery MD Status: ADM IN Ordering Dr: Isma Sheikh DO Date: 09/06/24 Location: [facility] Sex: M C Admitted: 09/06/24 Reason [...] preliminary report was called and/or faxed to [facility]. VL/Venous Duplex US - Sammy Extrem [...] Physician~ Date Dictated: 09/06/24830 Date Transcribed: 09/06/241106 Patient Support Representative: Signed [facility] Work Phone: White blood cell (WBC) count Ordered By: Zachariah Lantigua on 09-06-2024 WBC (Bld) [#/Vol] 10.6 10*3/uL 4.4-11.0 [facility] White blood cell countOrdere d By: Isma Peterson on 09-06-2024 White blood cell count 0-5 SEEN /hpf 0-5 [facility] Absolute lymphocyte countOrd ered By: Isma Peterson on 06-14-2024 Lymphocytes Auto (Unsp spec) [#/Vol] 1.98 10*3/uL 0.83-4.51 [facility] Absolute neutrophil countOrd ered By: Isma Peterson on 06-14-2024 Neutrophils (Bld) [#/Vol] 5.2 10*3/uL 2.0-7.7 [facility] Albumin to globulin ratioOrd ered By: Isma Peterson on 06-14-2024 Albumin/Globulin [Mass ratio] 0.8 {ratio} Low 0.9-2.4 [facility] Automated lymphocyte count a s percentage of total leukocytesOrdered By: Isma Peterson on 06-14-2024 Lymphocytes/100 WBC Auto (Unsp spec) 24.4 % 19- [facility] Basophil percentageOrdered B y: Isma Peterson on 06-14-2024 Basophils/100 WBC (Bld) 0.6 % 0-1 [facility] Bilirubin, totalOrdered By: Isma Peterson on 06-14-2024 Bilirubin [Mass/Vol] 0.60 mg/dL 0.20-1.00 [facility] Comment on above: For patients on eltr ombopag therapy, use of Dimension [place] TBIL is not recommended. Blood urea nitrogen (BUN)/cr eatinine ratioOrdered By: Isma Peterson on 06-14-2024 Urea nitrogen/Creatinine [Mass ratio] 11.1 mg/mg 10-20 [facility] CBC W/Diff, Automatedon 06-02 Absolute Lymph 1.98 X10 3/uL Normal 0.83-4.51 [facility] Comment on above: Performed By: #### L 300.4310, L300.3900, L500.4050, L503.6620, L503.6005, L100.0100 #### [facility] Laboratory [address] [place], [address] Absolute Neut 5.2 X10 3/uL Normal 2.0-7.7 [facility] Comment on above: Performed By: #### L 300.4310, L300.3900, L500.4050, L503.6620, L503.6005, L100.0100 #### [facility] Laboratory [address] [place], [address] Basophils/100 WBC (Bld) 0.6 % Normal 0-1 [facility] Comment on above: Performed By: #### L 300.4310, L300.3900, L500.4050, L503.6620, L503.6005, L100.0100 #### [facility] Laboratory [address] [place], [address] Eosinophils/100 WBC (Bld) 2.6 % Normal 0-5 [facility] Comment on above: Performed By: #### L 300.4310, L300.3900, L500.4050, L503.6620, L503.6005, L100.0100 #### [facility] Laboratory [address] [place], [address] Erythrocyte distribution width (RBC) [Ratio] 15.0 % High 11.6-14.6 [facility] Comment on above: Performed By: #### L 300.4310, L300.3900, L500.4050, L503.6620, L503.6005, L100.0100 #### [facility] Laboratory [address] [place], [address] Hematocrit (Bld) [Volume fraction] 46.2 % Normal 40-54 [facility] Comment on above: Performed By: #### L 300.4310, L300.3900, L500.4050, L503.6620, L503.6005, L100.0100 #### [facility] Laboratory [address] [place], [address] Hemoglobin (Bld) [Mass/Vol] 14.6 g/dL Normal 13.0-16.5 [facility] Comment on above: Performed By: #### L 300.4310, L300.3900, L500.4050, L503.6620, L503.6005, L100.0100 #### [facility] Laboratory [address] [place], [address] IG% 0.200 Normal 0.0-0.9 [facility] Comment on above: Result Comment: IG% - Immature Granulocytes (promyelocytes, myelocytes and metamyelocytes) > 1% indicates that a LEFT SHIFT is Present. Performed By: #### L 300.4310, L300.3900, L500.4050, L503.6620, L503.6005, L100.0100 #### [facility] Laboratory [address] [place], [address] Lymphocytes/100 WBC (Bld) 24.4 % Normal 19-41 [facility] Comment on above: Performed By: #### L 300.4310, L300.3900, L500.4050, L503.6620, L503.6005, L100.0100 #### [facility] Laboratory [address] [place], [address] MCH (RBC) [Entitic mass] 29.0 pg Normal 27.0-32.0 [facility] Comment on above: Performed By: #### L 300.4310, L300.3900, L500.4050, L503.6620, L503.6005, L100.0100 #### [facility] Laboratory [address] [place], [address] MCHC (RBC) [Mass/Vol] 31.6 g/dL Low 32-36 [facility] Comment on above: Performed By: #### L 300.4310, L300.3900, L500.4050, L503.6620, L503.6005, L100.0100 #### [facility] Laboratory [address] [place], [address] MCV (RBC) [Entitic vol] 91.7 fL Normal 80-94 [facility] Comment on above: Performed By: #### L 300.4310, L300.3900, L500.4050, L503.6620, L503.6005, L100.0100 #### [facility] Laboratory [address] [place], [address] Monocytes/100 WBC (Bld) 8.1 % Normal 0-10 [facility] Comment on above: Performed By: #### L 300.4310, L300.3900, L500.4050, L503.6620, L503.6005, L100.0100 #### [facility] Laboratory [address] [place], [address] Neutrophils/100 WBC (Bld) 64.1 % Normal 47-70 [facility] Comment on above: Performed By: #### L 300.4310, L300.3900, L500.4050, L503.6620, L503.6005, L100.0100 #### [facility] Laboratory [address] [place], [address] Nucleated RBC (Bld) [#/Vol] 0 10*3/uL Normal 0-5 [facility] Comment on above: Performed By: #### L 300.4310, L300.3900, L500.4050, L503.6620, L503.6005, L100.0100 #### [facility] Laboratory [address] [place], [address] Platelet mean volume (Bld) [Entitic vol] 10.1 fL Normal 6.2-12.0 [facility] Comment on above: Performed By: #### L 300.4310, L300.3900, L500.4050, L503.6620, L503.6005, L100.0100 #### [facility] Laboratory [address] [place], [address] Platelets (Bld) [#/Vol] 239 10*3/uL Normal 150-450 [facility] Comment on above: Performed By: #### L 300.4310, L300.3900, L500.4050, L503.6620, L503.6005, L100.0100 #### [facility] Laboratory [address] [place], [address] RBC (Bld) [#/Vol] 5.04 10*6/uL Normal 4.6-6.2 [facility] Comment on above: Performed By: #### L 300.4310, L300.3900, L500.4050, L503.6620, L503.6005, L100.0100 #### [facility] Laboratory [address] [place], [address] RDW SD 50.0 fl High 35.1-43.9 [facility] Comment on above: Performed By: #### L 300.4310, L300.3900, L500.4050, L503.6620, L503.6005, L100.0100 #### [facility] Laboratory [address] [place], [address] WBC (Bld) [#/Vol] 8.1 10*3/uL Normal 4.4-11.0 [facility] Comment on above: Performed By: #### L 300.4310, L300.3900, L500.4050, L503.6620, L503.6005, L100.0100 #### [facility] Laboratory [address] [place], [address] Carbon dioxide measurementOr dered By: Isma Peterson on 06-14-2024 CO2 [Moles/Vol] 31.0 mmol/L 21.0-32.0 [facility] Chloride measurementOrdered By: Isma Peterson on 06-14-2024 Chloride [Moles/Vol] 105 mmol/L 98-107 [facility] Comprehensive Metabolic Prof ilon 06-14-2024 Albumin [Mass/Vol] 3.1 g/dL Low 3.2-5.0 [facility] Comment on above: Performed By: #### L 300.4310, L300.3900, L500.4050, L503.6620, L503.6005, L100.0100 #### [facility] Laboratory [address] [place], [place], [id number] (841) Albumin/Globulin [Mass ratio] 0.8 {ratio} Low 0.9-2.4 [facility] Comment on above: Performed By: #### L 300.4310, L300.3900, L500.4050, L503.6620, L503.6005, L100.0100 #### [facility] Laboratory [address] [place], [address] ALK P 179 U/L High 45-117 [facility] Comment on above: Performed By: #### L 300.4310, L300.3900, L500.4050, L503.6620, L503.6005, L100.0100 #### [facility] Laboratory [address] [place], [address] ALT [Catalytic activity/Vol] 37 U/L Normal 16-61 [facility] Comment on above: Performed By: #### L 300.4310, L300.3900, L500.4050, L503.6620, L503.6005, L100.0100 #### [facility] Laboratory [address] [place], [address] AST [Catalytic activity/Vol] 32 U/L Normal 15-37 [facility] Comment on above: Performed By: #### L 300.4310, L300.3900, L500.4050, L503.6620, L503.6005, L100.0100 #### [facility] Laboratory [address] [place], [address] Bilirubin [Mass/Vol] 0.60 mg/dL Normal 0.20-1.00 [facility] Comment on above: Result Comment: For patients on eltrombopag therapy, use of Dimension [place] TBIL is not recommended. Performed By: #### L 300.4310, L300.3900, L500.4050, L503.6620, L503.6005, L100.0100 #### [facility] Laboratory [address] [place], [address] BUN/CRE 11.1 RATIO Normal 10-20 [facility] Comment on above: Performed By: #### L 300.4310, L300.3900, L500.4050, L503.6620, L503.6005, L100.0100 #### [facility] Laboratory [address] [place], [address] CA,Total 8.5 mg/dL Normal 8.5-10.1 [facility] Comment on above: Performed By: #### L 300.4310, L300.3900, L500.4050, L503.6620, L503.6005, L100.0100 #### [facility] Laboratory [address] [place], [address] Chloride [Moles/Vol] 105 mmol/L Normal 98-107 [facility] Comment on above: Performed By: #### L 300.4310, L300.3900, L500.4050, L503.6620, L503.6005, L100.0100 #### [facility] Laboratory [address] [place], [address] CO2 [Moles/Vol] 31.0 mmol/L Normal 21.0-32.0 [facility] Comment on above: Performed By: #### L 300.4310, L300.3900, L500.4050, L503.6620, L503.6005, L100.0100 #### [facility] Laboratory [address] [place], [address] Creatinine [Mass/Vol] 0.72 mg/dL Normal 0.70-1.30 [facility] Comment on above: Result Comment: The validity of the calculated GFR GFRAA in patients over 70 years has not been determined. Clinical correlation is essential. Performed By: #### L 300.4310, L300.3900, L500.4050, L503.6620, L503.6005, L100.0100 #### [facility] Laboratory [address] [place], [address] ECRCL 233.34 ml/min Normal [facility] Comment on above: Performed By: #### L 300.4310, L300.3900, L500.4050, L503.6620, L503.6005, L100.0100 #### [facility] Laboratory [address] [place], [address] EST GFR - AA 147 mL/min Normal >60 [facility] Comment on above: Result Comment: Afri can [place] GFR Calc Performed By: #### L 300.4310, L300.3900, L500.4050, L503.6620, L503.6005, L100.0100 #### [facility] Laboratory [address] [place], [address] GAP 3 Low 5-15 [facility] Comment on above: Performed By: #### L 300.4310, L300.3900, L500.4050, L503.6620, L503.6005, L100.0100 #### [facility] Laboratory [address] [place], [address] GFR/1.73 sq M.predicted among non-blacks MDRD (S/P/Bld) [Vol rate/Area] 122 mL/min/{1.73_m2} Normal >60 [facility] Comment on above: Result Comment: Non- GFR Calc Performed By: #### L 300.4310, L300.3900, L500.4050, L503.6620, L503.6005, L100.0100 #### [facility] Laboratory [address] [place], [address] Globulin (S) [Mass/Vol] 3.9 g/dL Normal 2.2-4.2 [facility] Comment on above: Performed By: #### L 300.4310, L300.3900, L500.4050, L503.6620, L503.6005, L100.0100 #### [facility] Laboratory [address] [place], [address] Glucose [Mass/Vol] 127 mg/dL High 74-106 [facility] Comment on above: Result Comment: Fast ing Glucose result greater than or equal to 126 mg/dL suggests DIABETES MELLITUS per A.D.A. criteria. Performed By: #### L 300.4310, L300.3900, L500.4050, L503.6620, L503.6005, L100.0100 #### [facility] Laboratory [address] [place], [address] Potassium [Moles/Vol] 3.4 mmol/L Low 3.5-5.1 [facility] Comment on above: Performed By: #### L 300.4310, L300.3900, L500.4050, L503.6620, L503.6005, L100.0100 #### [facility] Laboratory [address] [place], [address] Sodium [Moles/Vol] 139 mmol/L Normal 136-145 [facility] Comment on above: Performed By: #### L 300.4310, L300.3900, L500.4050, L503.6620, L503.6005, L100.0100 #### [facility] Laboratory [address] [place], [address] T PROT 7.0 g/dL Normal 6.4-8.2 [facility] Comment on above: Performed By: #### L 300.4310, L300.3900, L500.4050, L503.6620, L503.6005, L100.0100 #### [facility] Laboratory [address] [place], [address] Urea nitrogen [Mass/Vol] 8 mg/dL Normal 7-18 [facility] Comment on above: Performed By: #### L 300.4310, L300.3900, L500.4050, L503.6620, L503.6005, L100.0100 #### [facility] Laboratory [address] [place], [place], [id number] Eosinophil percentageOrdered By: Isma Peterson on 06-14-2024 Eosinophils/100 WBC (Bld) 2.6 % 0-5 [facility] Erythrocyte distribution wid th ratioOrdered By: Isma Peterson on 06-14-2024 Erythrocyte distribution width (RBC) [Ratio] 15.0 % High 11.6-14.6 [facility] Erythrocyte distribution wid th standard deviationOrdered By: Isma Peterson on 06-14-2024 Erythrocyte distribution width (RBC) [Ratio] 50.0 fl High 35.1-43.9 [facility] Glomerular filtration rate ( GFR) estimationOrdered By: Isma Peterson on 06-14-2024 GFR/1.73 sq M.predicted among non-blacks MDRD (S/P/Bld) [Vol rate/Area] 122 mL/min/{1.73_m2} >60 [facility] Comment on above: Non- GFR Calc Glucose measurementOrdered B y: Isma Peterson on 06-14-2024 Glucose [Mass/Vol] 127 mg/dL High 74-106 [facility] Comment on above: Fasting Glucose resu lt greater than or equal to 126 mg/dL suggests DIABETES MELLITUS per A.D.A. criteria. Hematocrit Auto (Bld) [Volum e fraction]Ordered By: Isma Peterson on 06-14-2024 Hematocrit (Bld) [Volume fraction] 46.2 % 40-54 [facility] Hemoglobin A1con 06-14-2024 HbA1c (Bld) [Mass fraction] 6.1 % High 3.8-5.6 [facility] Comment on above: Result Comment: Norm al < 5.7 % Prediabetic 5.7 - 6.4 % Diabetic >or= 6.5 % Please note range changes. Performed By: #### L 300.4310, L300.3900, L500.4050, L503.6620, L503.6005, L100.0100 #### [facility] Laboratory [address] [place], [place], [address] Hemoglobin A1c percentageOrd ered By: Isma Peterson on 06-14-2024 HbA1c (Bld) [Mass fraction] 6.1 % High 3.8-5.6 [facility] Comment on above: Normal < 5.7 % Predi abetic 5.7 - 6.4 % Diabetic >or= 6.5 % Please note range changes. Hemoglobin measurementOrdere d By: Isma Peterson on 06-14-2024 Hemoglobin (Bld) [Mass/Vol] 14.6 g/dL 13.0-16.5 [facility] Immature granulocytes/100 WB C Auto (Bld)Ordered By: Isma Peterson on 06-14-2024 Immature granulocytes/100 WBC (Bld) 0.200 % 0.0-0.9 [facility] Comment on above: IG% - Immature Granu locytes (promyelocytes, myelocytes and metamyelocytes) > 1% indicates that a LEFT SHIFT is Present. Laboratory - Chemistry and C hemistry - challengeOrdered By: Isma Peterson on 06-14-2024 AST [Catalytic activity/Vol] 32 U/L 15-37 [facility] MCV (mean corpuscular volume ) determinationOrdered By: Isma Peterson on 06-14-2024 MCV (RBC) [Entitic vol] 91.7 fL 80-94 [facility] Magnesiumon 06-14-2024 Magnesium [Mass/Vol] 2.2 mg/dL Normal 1.6-2.6 [facility] Comment on above: Performed By: #### L 300.4310, L300.3900, L500.4050, L503.6620, L503.6005, L100.0100 #### [facility] Laboratory [address] [place], [address] Magnesium measurementOrdered By: Isma Peterson on 06-14-2024 Magnesium [Mass/Vol] 2.2 mg/dL 1.6-2.6 [facility] Mean corpuscular hemoglobin (MCH) determinationOrdered By: Isma Peterson on 06-14-2024 MCH (RBC) [Entitic mass] 29.0 pg 27.0-32.0 [facility] Mean corpuscular hemoglobin concentration (MCHC) determinationOrdered By: Isma Peterson on 06-14-2024 MCHC (RBC) [Mass/Vol] 31.6 g/dL Low 32-36 [facility] Mean platelet volume determi nationOrdered By: Isma Peterson on 06-14-2024 Platelet mean volume (Bld) [Entitic vol] 10.1 fL 6.2-12.0 [facility] Monocyte percentageOrdered B y: Isma Peterson on 06-14-2024 Monocytes/100 WBC (Bld) 8.1 % 0-10 [facility] Neutrophil percentageOrdered By: Isma Peterson on 06-14-2024 Neutrophils/100 WBC (Bld) 64.1 % 47-70 [facility] Nucleated red blood cell per centageOrdered By: Isma Peterson on 06-14-2024 Nucleated RBC/100 WBC (Bld) [Ratio] 0 % 0-5 [facility] Phosphoruson 06-14-2024 Phosphate [Mass/Vol] 3.9 mg/dL Normal 2.5-4.9 [facility] Comment on above: Performed By: #### L 300.4310, L300.3900, L500.4050, L503.6620, L503.6005, L100.0100 #### [facility] Laboratory [facility] [place], [address] Platelet countOrdered By: Ney Peterson on 06-14-2024 Platelets (Bld) [#/Vol] 239 10*3/uL 150-450 [facility] Potassium measurementOrdered By: Isma Peterson on 06-14-2024 Potassium [Moles/Vol] 3.4 mmol/L Low 3.5-5.1 [facility] RBC Auto (Bld) [#/Vol]Ordere d By: Isma Peterson on 06-14-2024 RBC (Bld) [#/Vol] 5.04 10*6/uL 4.6-6.2 [facility] RESPIRATORY PANEL MOLECULARo n 06-14-2024 RP PANEL ADENOVIRUS Not Detected INFLUENZA A Not Detected INFLUENZA A (SUBTYPE H1) Not Detected INFLUENZA A (SUBTYPE H3) Not Detected INFLUENZA B Not Detected HUMAN METAPHNEUMO Not Detected PARAINFLUENZA 1 Not Detected PARAINFLUENZA 2 Not Detected PARAINFLUENZA 3 Not Detected PARAINFLUENZA 4 Not Detected RHINOVIRUS Not Detected RSV A Not Detected RSV B Not Detected Normal [facility] Comment on above: Performed By: #### L 300.4310, L300.3900, L500.4050, L503.6620, L503.6005, L100.0100 #### [facility] Laboratory [address] [place], [address] Respiratory pathogens detect ion panel by molecular detection methodOrdered By: Isma Peterson on 06-14-2024 Respiratory pathogens DNA and RNA panel BANDAR+probe (Resp) [facility] Serum anion gap measurementO rdered By: Isma Peterson on 06-14-2024 Anion gap [Moles/Vol] 3 mmol/L Low 5-15 [facility] Serum globulin measurementOr dered By: Isma Peterson on 06-14-2024 Globulin (S) [Mass/Vol] 3.9 g/dL 2.2-4.2 [facility] Serum or plasma alanine cast otransferase (ALT) measurementOrdered By: Isma Peterson on 06-14-2024 ALT [Catalytic activity/Vol] 37 U/L 16-61 [facility] Serum or plasma albumin rosa urement (mass/volume)Ordered By: Isma Peterson on 06-14-2024 Albumin [Mass/Vol] 3.1 g/dL Low 3.2-5.0 [facility] Serum or plasma alkaline roldan sphatase measurementOrdered By: Isma Peterson on 06-14-2024 ALP [Catalytic activity/Vol] 179 U/L High 45-117 [facility] Serum or plasma calcium rosa urement (mass/volume)Ordered By: Isma Peterson on 06-14-2024 Calcium [Mass/Vol] 8.5 mg/dL 8.5-10.1 [facility] Serum or plasma creatinine m easurement (mass/volume)Ordered By: Isma Peterson on 06-14-2024 Creatinine [Mass/Vol] 0.72 mg/dL 0.70-1.30 [facility] Comment on above: The validity of the calculated GFR & GFRAA in patients over 70 years has not been determined. Clinical correlation is essential. Serum or plasma thyroid stim ulating hormone (TSH) measurement (units/volume)Ordered By: Isma Peterson on 06-14-2024 TSH Qn 1.840 uIU/mL 0.358-3.74 0 [facility] Serum or plasma urea nitroge n measurement (mass/volume)Ordered By: sIma Peterson on 06-14-2024 Urea nitrogen [Mass/Vol] 8 mg/dL 7-18 [facility] Sodium levelOrdered By: Ethan Peterson on 06-14-2024 Sodium [Moles/Vol] 139 mmol/L 136-145 [facility] Thyroid Stim Hormone (TSH)on 06-14-2024 TSH 1.840 uIU/mL Normal 0.358-3.74 0 [facility] Comment on above: Performed By: #### L 300.4310, L300.3900, L500.4050, L503.6620, L503.6005, L100.0100 #### [facility] Laboratory [address] [place], [place], [id number] Total proteinOrdered By: Bryan Peterson on 06-14-2024 Protein [Mass/Vol] 7.0 g/dL 6.4-8.2 [facility] White blood cell (WBC) count Ordered By: Isma Peterson on 06-14-2024 WBC (Bld) [#/Vol] 8.1 10*3/uL 4.4-11.0 [facility] 12 Lead EKGon 06-13-2024 12 Lead EKG [facility] Cardiovascular Services [address] [place] [address] 12 Lead EKG 06/13/24 2131 MR#: [id number] Acct: [id number] Name: AZALIA MATTHEW II Rep #: [id number] : 1970 53 From: Brandee Beltre MD [...] ECG Confirmed by MILADY PETTIT, SABINE ([id number]), loan expeditor BABEY MORA ([id number]) on 06/15/2024 1:02:01 PM Referred By: Confirmed By: SABINE BELTRE MD 06/15/24 1302 Date Brandee Beltre MD CC: Dr. Ferny Coats DO; Dr. Jim Cortes DO; No Primary Care Physician Signed Normal [facility] BNP (brain natriuretic pepti de measurement)Ordered By: Jim Cortes on 06-13-2024 Natriuretic peptide B (Bld) [Mass/Vol] 29.4 pg/mL 0-100 [facility] BNP,B-Type NATRIURETIC PEPTI [place] 06-13-2024 Natriuretic peptide B (Bld) [Mass/Vol] 29.4 pg/mL Normal 0-100 [facility] Comment on above: Performed By: #### L 300.4310, L300.3900, L500.4050, L503.6620, L503.6005, L100.0100 #### [facility] Laboratory [address] [place], [address] Basic Metabolic Profile (BMP )on 06-13-2024 BUN/CRE 10.8 RATIO Normal 10-20 [facility] Comment on above: Order Comment: 'TROP ' Serial specimen #1, #2 or #3: 1 Performed By: #### L 300.4310, L300.3900, L500.4050, L503.6620, L503.6005, L100.0100 #### [facility] Laboratory [address] [place], [address] CA,Total 8.6 mg/dL Normal 8.5-10.1 [facility] Comment on above: Order Comment: 'TROP ' Serial specimen #1, #2 or #3: 1 Performed By: #### L 300.4310, L300.3900, L500.4050, L503.6620, L503.6005, L100.0100 #### [facility] Laboratory [address] [place], [address] Chloride [Moles/Vol] 104 mmol/L Normal 98-107 [facility] Comment on above: Order Comment: 'TROP ' Serial specimen #1, #2 or #3: 1 Performed By: #### L 300.4310, L300.3900, L500.4050, L503.6620, L503.6005, L100.0100 #### [facility] Laboratory [address] [place], [address] CO2 [Moles/Vol] 26.0 mmol/L Normal 21.0-32.0 [facility] Comment on above: Order Comment: 'TROP ' Serial specimen #1, #2 or #3: 1 Performed By: #### L 300.4310, L300.3900, L500.4050, L503.6620, L503.6005, L100.0100 #### [facility] Laboratory [address] [place], [address] Creatinine [Mass/Vol] 0.83 mg/dL Normal 0.70-1.30 [facility] Comment on above: Order Comment: 'TROP ' Serial specimen #1, #2 or #3: 1 Result Comment: The validity of the calculated GFR GFRAA in patients over 70 years has not been determined. Clinical correlation is essential. Performed By: #### L 300.4310, L300.3900, L500.4050, L503.6620, L503.6005, L100.0100 #### [facility] Laboratory [address] [place], [address] ECRCL 212.46 ml/min Normal [facility] Comment on above: Order Comment: 'TROP ' Serial specimen #1, #2 or #3: 1 Performed By: #### L 300.4310, L300.3900, L500.4050, L503.6620, L503.6005, L100.0100 #### [facility] Laboratory [address] [place], [address] EST GFR - AA 125 mL/min Normal >60 [facility] Comment on above: Order Comment: 'TROP ' Serial specimen #1, #2 or #3: 1 Result Comment: Afri can [place] GFR Calc Performed By: #### L 300.4310, L300.3900, L500.4050, L503.6620, L503.6005, L100.0100 #### [facility] Laboratory [address] [place], [address] GAP 6 Normal 5-15 [facility] Comment on above: Order Comment: 'TROP ' Serial specimen #1, #2 or #3: 1 Performed By: #### L 300.4310, L300.3900, L500.4050, L503.6620, L503.6005, L100.0100 #### [facility] Laboratory [address] [place], [address] GFR/1.73 sq M.predicted among non-blacks MDRD (S/P/Bld) [Vol rate/Area] 103 mL/min/{1.73_m2} Normal >60 [facility] Comment on above: Order Comment: 'TROP ' Serial specimen #1, #2 or #3: 1 Result Comment: Non- GFR Calc Performed By: #### L 300.4310, L300.3900, L500.4050, L503.6620, L503.6005, L100.0100 #### [facility] Laboratory [address] [place], [address] Glucose [Mass/Vol] 113 mg/dL High 74-106 [facility] Comment on above: Order Comment: 'TROP ' Serial specimen #1, #2 or #3: 1 Result Comment: Fast ing Glucose result from 100 to 125 mg/dL suggests IMPAIRED HOMEOSTASIS per A.D.A. criteria. Performed By: #### L 300.4310, L300.3900, L500.4050, L503.6620, L503.6005, L100.0100 #### [facility] Laboratory [address] [place], [address] Potassium [Moles/Vol] 3.9 mmol/L Normal 3.5-5.1 [facility] Comment on above: Order Comment: 'TROP ' Serial specimen #1, #2 or #3: 1 Result Comment: Mode rate Hemolysis, Result may be falsely increased. Performed By: #### L 300.4310, L300.3900, L500.4050, L503.6620, L503.6005, L100.0100 #### [facility] Laboratory [address] [place], [address] Sodium [Moles/Vol] 136 mmol/L Normal 136-145 [facility] Comment on above: Order Comment: 'TROP ' Serial specimen #1, #2 or #3: 1 Performed By: #### L 300.4310, L300.3900, L500.4050, L503.6620, L503.6005, L100.0100 #### [facility] Laboratory [address] [place], [address] Urea nitrogen [Mass/Vol] 9 mg/dL Normal 7-18 [facility] Comment on above: Order Comment: 'TROP ' Serial specimen #1, #2 or #3: 1 Performed By: #### L 300.4310, L300.3900, L500.4050, L503.6620, L503.6005, L100.0100 #### [facility] Laboratory [address] [place], [address] CBC W/Diff, Automatedon 02-05 03-2024 Absolute Lymph 2.46 X10 3/uL Normal 0.83-4.51 [facility] Comment on above: Performed By: #### L 300.4310, L300.3900, L500.4050, L503.6620, L503.6005, L100.0100 #### [facility] Laboratory [address] [place], [address] Absolute Neut 6.3 X10 3/uL Normal 2.0-7.7 [facility] Comment on above: Performed By: #### L 300.4310, L300.3900, L500.4050, L503.6620, L503.6005, L100.0100 #### [facility] Laboratory [address] [place], [address] Basophils/100 WBC (Bld) 0.3 % Normal 0-1 [facility] Comment on above: Performed By: #### L 300.4310, L300.3900, L500.4050, L503.6620, L503.6005, L100.0100 #### [facility] Laboratory [address] [place], [address] Eosinophils/100 WBC (Bld) 2.0 % Normal 0-5 [facility] Comment on above: Performed By: #### L 300.4310, L300.3900, L500.4050, L503.6620, L503.6005, L100.0100 #### [facility] Laboratory [address] [place], [address] Erythrocyte distribution width (RBC) [Ratio] 14.6 % Normal 11.6-14.6 [facility] Comment on above: Performed By: #### L 300.4310, L300.3900, L500.4050, L503.6620, L503.6005, L100.0100 #### [facility] Laboratory [address] [place], [address] Hematocrit (Bld) [Volume fraction] 47.6 % Normal 40-54 [facility] Comment on above: Performed By: #### L 300.4310, L300.3900, L500.4050, L503.6620, L503.6005, L100.0100 #### [facility] Laboratory [address] [place], [address] Hemoglobin (Bld) [Mass/Vol] 15.3 g/dL Normal 13.0-16.5 [facility] Comment on above: Performed By: #### L 300.4310, L300.3900, L500.4050, L503.6620, L503.6005, L100.0100 #### [facility] Laboratory [address] [place], [address] IG% 0.300 Normal 0.0-0.9 [facility] Comment on above: Result Comment: IG% - Immature Granulocytes (promyelocytes, myelocytes and metamyelocytes) > 1% indicates that a LEFT SHIFT is Present. Performed By: #### L 300.4310, L300.3900, L500.4050, L503.6620, L503.6005, L100.0100 #### [facility] Laboratory [address] [place], [address] Lymphocytes/100 WBC (Bld) 25.3 % Normal 19-41 [facility] Comment on above: Performed By: #### L 300.4310, L300.3900, L500.4050, L503.6620, L503.6005, L100.0100 #### [facility] Laboratory [address] [place], [address] MCH (RBC) [Entitic mass] 28.9 pg Normal 27.0-32.0 [facility] Comment on above: Performed By: #### L 300.4310, L300.3900, L500.4050, L503.6620, L503.6005, L100.0100 #### [facility] Laboratory [address] [place], [address] MCHC (RBC) [Mass/Vol] 32.1 g/dL Normal 32-36 [facility] Comment on above: Performed By: #### L 300.4310, L300.3900, L500.4050, L503.6620, L503.6005, L100.0100 #### [facility] Laboratory [address] [place], [address] MCV (RBC) [Entitic vol] 89.8 fL Normal 80-94 [facility] Comment on above: Performed By: #### L 300.4310, L300.3900, L500.4050, L503.6620, L503.6005, L100.0100 #### [facility] Laboratory [address] [place], [address] Monocytes/100 WBC (Bld) 7.5 % Normal 0-10 [facility] Comment on above: Performed By: #### L 300.4310, L300.3900, L500.4050, L503.6620, L503.6005, L100.0100 #### [facility] Laboratory [address] [place], [address] Neutrophils/100 WBC (Bld) 64.6 % Normal 47-70 [facility] Comment on above: Performed By: #### L 300.4310, L300.3900, L500.4050, L503.6620, L503.6005, L100.0100 #### [facility] Laboratory [address] [place], [address] Nucleated RBC (Bld) [#/Vol] 0 10*3/uL Normal 0-5 [facility] Comment on above: Performed By: #### L 300.4310, L300.3900, L500.4050, L503.6620, L503.6005, L100.0100 #### [facility] Laboratory [address] [place], [address] Platelet mean volume (Bld) [Entitic vol] 9.9 fL Normal 6.2-12.0 [facility] Comment on above: Performed By: #### L 300.4310, L300.3900, L500.4050, L503.6620, L503.6005, L100.0100 #### [facility] Laboratory [address] [place], [address] Platelets (Bld) [#/Vol] 231 10*3/uL Normal 150-450 [facility] Comment on above: Performed By: #### L 300.4310, L300.3900, L500.4050, L503.6620, L503.6005, L100.0100 #### [facility] Laboratory [address] [place], [address] RBC (Bld) [#/Vol] 5.30 10*6/uL Normal 4.6-6.2 [facility] Comment on above: Performed By: #### L 300.4310, L300.3900, L500.4050, L503.6620, L503.6005, L100.0100 #### [facility] Laboratory [address] [place], [address] RDW SD 47.6 fl High 35.1-43.9 [facility] Comment on above: Performed By: #### L 300.4310, L300.3900, L500.4050, L503.6620, L503.6005, L100.0100 #### [facility] Laboratory [address] [place], [address] WBC (Bld) [#/Vol] 9.7 10*3/uL Normal 4.4-11.0 [facility] Comment on above: Performed By: #### L 300.4310, L300.3900, L500.4050, L503.6620, L503.6005, L100.0100 #### [facility] Laboratory [address] [place], [address] Absolute Neut Normal 2.0-7.7 [facility] Comment on above: Result Comment: CELIO BEAVERS, SPOKE WITH LEONA Performed By: #### L 300.4310, L300.3900, L500.4050, L503.6620, L503.6005, L100.0100 #### [facility] Laboratory [address] [place], [address] HCT Normal 40-54 [facility] Comment on above: Result Comment: CELIO BEAVERS, SPOKE WITH LEONA Performed By: #### L 300.4310, L300.3900, L500.4050, L503.6620, L503.6005, L100.0100 #### [facility] Laboratory [address] [place], [address] HGB Normal 13.0-16.5 [facility] Comment on above: Result Comment: CELIO BEAVERS, SPOKE WITH LEONA Performed By: #### L 300.4310, L300.3900, L500.4050, L503.6620, L503.6005, L100.0100 #### [facility] Laboratory [address] [place], [address] MCH Normal 27.0-32.0 [facility] Comment on above: Result Comment: CELIO BEAVERS, SPOKE WITH LEONA Performed By: #### L 300.4310, L300.3900, L500.4050, L503.6620, L503.6005, L100.0100 #### [facility] Laboratory [address] [place], [address] MCHC Normal 32-36 [facility] Comment on above: Result Comment: CELIO BEAVERS, SPOKE WITH LEONA Performed By: #### L 300.4310, L300.3900, L500.4050, L503.6620, L503.6005, L100.0100 #### [facility] Laboratory [address] [place], [address] MCV Normal 80-94 [facility] Comment on above: Result Comment: CELIO BEAVERS, SPOKE WITH LEONA Performed By: #### L 300.4310, L300.3900, L500.4050, L503.6620, L503.6005, L100.0100 #### [facility] Laboratory [address] [place], [address] NEUT% Normal 47-70 [facility] Comment on above: Result Comment: CELIO BEAVERS, SPOKE WITH LEONA Performed By: #### L 300.4310, L300.3900, L500.4050, L503.6620, L503.6005, L100.0100 #### [facility] Laboratory [address] [place], [address] PLT Normal 150-450 [facility] Comment on above: Result Comment: CELIO BEAVERS, SPOKE WITH LEONA Performed By: #### L 300.4310, L300.3900, L500.4050, L503.6620, L503.6005, L100.0100 #### [facility] Laboratory [address] [place], [address] RBC Normal 4.6-6.2 [facility] Comment on above: Result Comment: CELIO BEAVERS, SPOKE WITH LEONA Performed By: #### L 300.4310, L300.3900, L500.4050, L503.6620, L503.6005, L100.0100 #### [facility] Laboratory [address] [place], [address] RDW CV Normal 11.6-14.6 [facility] Comment on above: Result Comment: CELIO BEAVERS, SPOKE WITH LEONA Performed By: #### L 300.4310, L300.3900, L500.4050, L503.6620, L503.6005, L100.0100 #### [facility] Laboratory [address] [place], [address] RDW SD Normal 35.1-43.9 [facility] Comment on above: Result Comment: CELIO BEAVERS, SPOKE WITH LEONA Performed By: #### L 300.4310, L300.3900, L500.4050, L503.6620, L503.6005, L100.0100 #### [facility] Laboratory [address] [place], [address] WBC Normal 4.4-11.0 [facility] Comment on above: Result Comment: CELIO BEAVERS, SPOKE WITH LEONA Performed By: #### L 300.4310, L300.3900, L500.4050, L503.6620, L503.6005, L100.0100 #### [facility] Laboratory [address] [place], [address] CO2 (BldV) [Moles/Vol]Ordere d By: Jim Cortes on 06-13-2024 CO2 [Moles/Vol] 35 mmol/L High 23-33 [facility] Chest 1 View (Portable)on Chest 1 View (Portable) [facility] Imaging Services [address] [place] [address] Chest 1 View (Portable) MR#: [id number] Acct: [id number] Name: AZALIA MATTHEW II Rep #: [id number] : 1970 M 53 From: [facility] DO PCP: Care Physician,No Primary Status: REG ER Study: Chest 1 View (Portable) Date of Exam: 06/13/24 Exam# [id number] Ordering Dr: Jim Cortes DO PROCEDURE: CHEST [...] Jim Cortes, ; No Primary Care Physician Patient Support Representative: Signed Normal [facility] Emergency Department Summary on 06-13-2024 Emergency Department Summary [facility] Medical Records Department [address] [place] [address] Emergency Department Summary 06/13/24 MR#: [id number] Acct: [id number] Name: AZALIA MATTHEW II Rep #: [id number] : 1970 53 From: Jim Cortes DO PCP: Care Physician,No Primary Status:ADM JESSI Location: [address] History of Present Illness Chief Complaint: [...] 12/28/23 @ 17:46 by Ray Us NP, COUNTER [employer]OCK[employer]-C) household members: friend(s) 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 Sheikh[facility] Narrative: Patient was initially hemodynamically stable, [...] reassessed his (more content not included)... Normal [facility] H AND P Exam - [facility] 06-13-2024 H&P Exam - Hospitalist [facility] Medical Records Department [address] [place] [address] H P Exam - Hospitalist 06/13/24 2321 MR#: [id number] Acct: [id number] Name: AZALIA MATTHEW II Rep #: [id number] : 1970 53 From: Isma Sheikh DO PCP: Care Physician,No Primary Status:ADM JESSI Location: [place] [address] HPI - General General Date of Admission: [...] and history of homelessness who presents to [facility] ER complaining viral URI and shortness of [...] expected to be less than 2 midnights. 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 Normal [facility] Influenza virus A and B and SARS-CoV-2 (COVID-19) and Respiratory syncytial virus RNAOrdered By: Jim Cortes on 06-13-2024 SARS-CoV-2 (COVID-19) RNA BANDAR+probe Ql (Unsp spec) [facility] L501.4020on 06-13-2024 TROPONIN-I HS 12 pg/mL Normal 3.0-78.0 [facility] Comment on above: Order Comment: 'TROP ' Serial specimen #1, #2 or #3: 1 Result Comment: Adrienne leon Note: New Test Units and Gender Specific Reference Ranges. For more information see Policy Stat Procedure [place] High Sensitivity Troponin (TNIH) and attachments. Performed By: #### L 300.4310, L300.3900, L500.4050, L503.6620, L503.6005, L100.0100 #### [facility] Laboratory [address] [place], [address] M100.678on 06-13-2024 M100.678 SARS-CoV-2 (COVID 19 ) Negative INFLUENZA A Negative INFLUENZA B Negative RSV PCR Negative Normal [facility] Comment on above: Performed By: #### L 300.4310, L300.3900, L500.4050, L503.6620, L503.6005, L100.0100 #### [facility] Laboratory [address] [place], [address] No Panel InformationOrdered By: Jim Cortes on 06-13-2024 Blood Gas Sample Site Not entered [facility] Blood Gas Specimen Type BUD [facility] Oxygen Delivery Device Cannula [facility] Troponin IOrdered By: Jim Cortes on 06-13-2024 Troponin I 12 pg/mL 3.0-78.0 [facility] Comment on above: Please Note: New Fartun t Units and Gender Specific Reference Ranges. For more information see Policy Stat Procedure [place] High Sensitivity Troponin (TNIH) and attachments. Venous Blood Gason Blood Gas Type BUD Normal [facility] Comment on above: Performed By: #### L 9000.0810 ####[facility] [address] [place], [address] CO2 [Moles/Vol] 35 mmol/L High 23-33 [facility] Comment on above: Performed By: #### L 9000.0810 ####[facility] [address] [place], [address] FI02 3.0 Normal [facility] Comment on above: Performed By: #### L 9000.0810 ####[facility] [address] [place], [address] HCO3 (Bld) [Moles/Vol] 33 mmol/L High 22-26 [facility] Comment on above: Performed By: #### L 9000.0810 ####[facility] [address] [place], [address] O2 Delivery Dev Cannula Normal [facility] Comment on above: Performed By: #### L 9000.0810 ####[facility] [address] [place], [address] SITE Not entered Normal [facility] Comment on above: Performed By: #### L 9000.0810 ####[facility] [address] [place], [address] VBG BE 8 mmol/L High -1.0-3.5 [facility] Comment on above: Performed By: #### L 9000.0810 ####[facility] [address] [place], [address] VBG pCO2 59.9 mmHg High 41-51 [facility] Comment on above: Performed By: #### L 9000.0810 ####[facility] [address] [place], [address] VBG pH 7.35 Normal 7.32-7.42 [facility] Comment on above: Performed By: #### L 9000.0810 ####[facility] [address] [place], [address] VBG PO2 48 mmHg High 25-40 [facility] Comment on above: Performed By: #### L 9000.0810 ####[facility] [address] [place], [address] VBG SO2 80 High 50-70 [facility] Comment on above: Performed By: #### L 9000.0810 ####[facility] [address] [place], [address] Venous blood base excess catherine surementOrdered By: Jim Cortes on 06-13-2024 Base excess Calc (BldV) [Moles/Vol] 8 mmol/L High -1.0-3.5 [facility] Venous blood bicarbonate catherine surementOrdered By: Jim Cortes on 06-13-2024 HCO3 (Bld) [Moles/Vol] 33 mmol/L High 22-26 [facility] Venous blood oxygen saturati on measurementOrdered By: Jim Cortes on 06-13-2024 Oxygen saturation in Blood 80 % High 50-70 [facility] Venous blood pH measurementO rdered By: Jim Cortes on 06-13-2024 pH (BldV) 7.35 [pH] 7.32-7.42 [facility] Venous blood partial pressur e of carbon dioxide measurementOrdered By: Jim Cortes on 06-13-2024 CO2 (BldV) [Partial pressure] 59.9 mm[Hg] High 41-51 [facility] Venous blood partial pressur e of oxygen measurementOrdered By: Jim Cortes on 06-13-2024 Oxygen (BldV) [Partial pressure] 48 mm[Hg] High 25-40 [facility] Lower Ext Art Exam w/o Exerc miguelito 01-06-2024 Lower Ext Art Exam w/o Exercis [facility] [address] [place] [address] Lower Ext Art Exam w/o Exercis 01/06/24 1339 MR#: [id number] Acct: [id number] Name: AZALIA MATTHEW II Rep #: [id number] : 1970 53 From: Francesco Antoine MD Attending Dr: Ray Us COUNTER POCKET TRIMMER-C Status: R EG RCR Ordering Dr: Ray Us NP [employer]TER POCKET TRIMMER-C Date: 01/05 Location: [facility] Sex: M C Admitted: Reason For Study: [...] Physician: Ray Us Referring Physician: RAY US COUNTER POCKET TRIMMER-C Performed By: Farheen Mendez RVT, RDCS 01/08/24 1246 Date Francesco Antoine MD CC: COUNTER POCKET TRIMMER-C Ray Us; Dr. Isma Parkinson MD; No Primary Care Physician Date Dictated: 01/06/24 1339 Date Transcribed: 01/08/24 1246 Patient Support Representative: Signed Normal [facility] Culture, Blood (WB)on 2023 CUB Blood cultures x2, f rom two different sites No growth in 5 days. Normal [facility] Comment on above: Performed By: #### L 300.4310, L300.3900, L500.4050, L503.6620, L503.6005, L100.0100 #### [facility] Laboratory [address] [place], [address] Wound Ctr History AND Physic armond 12-28-2023 Wound Ctr History & Physical [facility] [address] [place] [address] H P Exam - Wound Care 12/28/23 1606 MR#: [id number] Acct: [id number] Name: AZALIA MATTHEW II Rep #: [id number] : 1970 53 From: Ray Us NP COUNTER POCKET TRIMMER-C PCP: Care Physician,No Primary Status:REG RCR Location: [...] clear/yellow fluid. 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 He was initially hospitalized in [facility]. He was discharged home. He then went to [facility] a few days later for increased [...] legs and +2-+3 non pitting edema bilaterally. 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 Normal [facility] Basic Metabolic Profile (BMP )on 12-26-2023 BUN Normal 7-18 [facility] Comment on above: Result Comment: Canc elled via OM: Order cancelled - Patient discharged Performed By: #### L 500.2500, L100.0100 ####[facility] [address] [facility] [address] BUN/CRE Normal 10-20 [facility] Comment on above: Result Comment: Canc elled via OM: Order cancelled - Patient discharged Performed By: #### L 500.2500, L100.0100 ####[facility] [address] [place], [address] CA,Total Normal 8.5-10.1 [facility] Comment on above: Result Comment: Canc elled via OM: Order cancelled - Patient discharged Performed By: #### L 500.2500, L100.0100 ####[facility] [address] [place], [address] CL Normal 98-107 [facility] Comment on above: Result Comment: Canc elled via OM: Order cancelled - Patient discharged Performed By: #### L 500.2500, L100.0100 ####[facility] [address] [place], [address] CO2 Normal 21.0-32.0 [facility] Comment on above: Result Comment: Canc elled via OM: Order cancelled - Patient discharged Performed By: #### L 500.2500, L100.0100 ####[facility] [address] [place], [address] CREAT,SERUM Normal 0.70-1.30 [facility] Comment on above: Result Comment: Canc elled via OM: Order cancelled - Patient discharged Performed By: #### L 500.2500, L100.0100 ####[facility] [address] [place], [address] EST GFR Normal >60 [facility] Comment on above: Result Comment: Canc elled via OM: Order cancelled - Patient discharged Performed By: #### L 500.2500, L100.0100 ####[facility] [address] [place], [address] EST GFR - AA Normal >60 [facility] Comment on above: Result Comment: Canc elled via OM: Order cancelled - Patient discharged Performed By: #### L 500.2500, L100.0100 ####[facility] [address] [place], [address] GAP Normal 5-15 [facility] Comment on above: Result Comment: Canc elled via OM: Order cancelled - Patient discharged Performed By: #### L 500.2500, L100.0100 ####[facility] [address] [place], [address] GLU Normal 74-106 [facility] Comment on above: Result Comment: Canc elled via OM: Order cancelled - Patient discharged Performed By: #### L 500.2500, L100.0100 ####[facility] [address] [place], [address] Potassium Normal 3.5-5.1 [facility] Comment on above: Result Comment: Canc elled via OM: Order cancelled - Patient discharged Performed By: #### L 500.2500, L100.0100 ####[facility] [address] [place], [address] Basic Metabolic Profile (BMP) Normal 136-145 [facility] Comment on above: Result Comment: Canc elled via OM: Order cancelled - Patient discharged Performed By: #### L 500.2500, L100.0100 ####[facility] [address] [place], [address] CBC W/Diff, Automatedon 08- Absolute Neut Normal 2.0-7.7 [facility] Comment on above: Result Comment: Canc elled via OM: Order cancelled - Patient discharged Performed By: #### L 500.2500, L100.0100 ####[facility] [address] [place], [address] HCT Normal 40-54 [facility] Comment on above: Result Comment: Canc elled via OM: Order cancelled - Patient discharged Performed By: #### L 500.2500, L100.0100 ####[facility] [address] [place], [address] HGB Normal 13.0-16.5 [facility] Comment on above: Result Comment: Canc elled via OM: Order cancelled - Patient discharged Performed By: #### L 500.2500, L100.0100 ####[facility] [address] [place], [address] MCH Normal 27.0-32.0 [facility] Comment on above: Result Comment: Canc elled via OM: Order cancelled - Patient discharged Performed By: #### L 500.2500, L100.0100 ####[facility] [address] [place], [address] MCHC Normal 32-36 [facility] Comment on above: Result Comment: Canc elled via OM: Order cancelled - Patient discharged Performed By: #### L 500.2500, L100.0100 ####[facility] [address] [place], [address] MCV Normal 80-94 [facility] Comment on above: Result Comment: Canc elled via OM: Order cancelled - Patient discharged Performed By: #### L 500.2500, L100.0100 ####[facility] [address] [place], [address] NEUT% Normal 47-70 [facility] Comment on above: Result Comment: Canc elled via OM: Order cancelled - Patient discharged Performed By: #### L 500.2500, L100.0100 ####[facility] [address] [place], [address] PLT Normal 150-450 [facility] Comment on above: Result Comment: Canc elled via OM: Order cancelled - Patient discharged Performed By: #### L 500.2500, L100.0100 ####[facility] [address] [place], [address] RBC Normal 4.6-6.2 [facility] Comment on above: Result Comment: Canc elled via OM: Order cancelled - Patient discharged Performed By: #### L 500.2500, L100.0100 ####[facility] [address] [place], [address] RDW CV Normal 11.6-14.6 [facility] Comment on above: Result Comment: Canc elled via OM: Order cancelled - Patient discharged Performed By: #### L 500.2500, L100.0100 ####[facility] [address] [place], [address] RDW SD Normal 35.1-43.9 [facility] Comment on above: Result Comment: Canc elled via OM: Order cancelled - Patient discharged Performed By: #### L 500.2500, L100.0100 ####[facility] [address] [place], [address] WBC Normal 4.4-11.0 [facility] Comment on above: Result Comment: Canc elled via OM: Order cancelled - Patient discharged Performed By: #### L 500.2500, L100.0100 ####[facility] [address] [place], [address] Wound Cultureon 12-26-2023 List Antibiotics Las t [...] S Vancomycin Islt NOREEN 1 S Normal [facility] Comment on above: Performed By: #### L 300.4310, L300.3900, L500.4050, L503.6620, L503.6005, L100.0100 #### [facility] Laboratory [address] [place], [address] Basic Metabolic Profile (BMP )on 12-25-2023 BUN/CRE 21.9 RATIO High 10-20 [facility] Comment on above: Performed By: #### L 100.0100, L500.2500 ####[facility] [address] [place], [address] CA,Total 9.0 mg/dL Normal 8.5-10.1 [facility] Comment on above: Performed By: #### L 100.0100, L500.2500 ####[facility] [address] [place], [address] Chloride [Moles/Vol] 98 mmol/L Normal 98-107 [facility] Comment on above: Performed By: #### L 100.0100, L500.2500 ####[facility] [address] [place], [address] CO2 [Moles/Vol] 34.0 mmol/L High 21.0-32.0 [facility] Comment on above: Performed By: #### L 100.0100, L500.2500 ####[facility] [address] [place], [address] Creatinine [Mass/Vol] 0.78 mg/dL Normal 0.70-1.30 [facility] Comment on above: Result Comment: The validity of the calculated GFR GFRAA in patients over 70 years has not been determined. Clinical correlation is essential. Performed By: #### L 100.0100, L500.2500 ####[facility] [address] [place], [address] ECRCL 214.23 ml/min Normal [facility] Comment on above: Performed By: #### L 100.0100, L500.2500 ####[facility] [address] [place], [address] EST GFR - AA 135 mL/min Normal >60 [facility] Comment on above: Result Comment: Afri can [place] GFR Calc Performed By: #### L 100.0100, L500.2500 ####[facility] [address] [place], [address] GAP 5 Normal 5-15 [facility] Comment on above: Performed By: #### L 100.0100, L500.2500 ####[facility] [address] [place], [address] GFR/1.73 sq M.predicted among non-blacks MDRD (S/P/Bld) [Vol rate/Area] 112 mL/min/{1.73_m2} Normal >60 [facility] Comment on above: Result Comment: Non- GFR Calc Performed By: #### L 100.0100, L500.2500 ####[facility] [address] [place], [address] Glucose [Mass/Vol] 116 mg/dL High 74-106 [facility] Comment on above: Result Comment: Fast ing Glucose result from 100 to 125 mg/dL suggests IMPAIRED HOMEOSTASIS per A.D.A. criteria. Performed By: #### L 100.0100, L500.2500 ####[facility] [address] [place], [address] Potassium [Moles/Vol] 3.8 mmol/L Normal 3.5-5.1 [facility] Comment on above: Performed By: #### L 100.0100, L500.2500 ####[facility] [address] [place], [address] Sodium [Moles/Vol] 137 mmol/L Normal 136-145 [facility] Comment on above: Performed By: #### L 100.0100, L500.2500 ####[facility] [address] [place], [address] Urea nitrogen [Mass/Vol] 17 mg/dL Normal 7-18 [facility] Comment on above: Performed By: #### L 100.0100, L500.2500 ####[facility] [address] [place], [address] CBC W/Diff, Automatedon 08-2 Absolute Lymph 2.03 X10 3/uL Normal 0.83-4.51 [facility] Comment on above: Performed By: #### L 100.0100, L500.2500 #### [facility] Laboratory [address] [place], [address] Absolute Neut 3.6 X10 3/uL Normal 2.0-7.7 [facility] Comment on above: Performed By: #### L 100.0100, L500.2500 #### [facility] Laboratory [address] [place], [address] Basophils/100 WBC (Bld) 0.8 % Normal 0-1 [facility] Comment on above: Performed By: #### L 100.0100, L500.2500 #### [facility] Laboratory [address] [place], [address] Eosinophils/100 WBC (Bld) 4.1 % Normal 0-5 [facility] Comment on above: Performed By: #### L 100.0100, L500.2500 #### [facility] Laboratory [address] [place], [address] Erythrocyte distribution width (RBC) [Ratio] 14.2 % Normal 11.6-14.6 [facility] Comment on above: Performed By: #### L 100.0100, L500.2500 #### [facility] Laboratory [address] [place], [address] Hematocrit (Bld) [Volume fraction] 51.2 % Normal 40-54 [facility] Comment on above: Performed By: #### L 100.0100, L500.2500 #### [facility] Laboratory [address] [place], [address] Hemoglobin (Bld) [Mass/Vol] 16.2 g/dL Normal 13.0-16.5 [facility] Comment on above: Performed By: #### L 100.0100, L500.2500 #### [facility] [address] [place], [address] IG% 0.200 Normal 0.0-0.9 [facility] Comment on above: Result Comment: IG% - Immature Granulocytes (promyelocytes, myelocytes and metamyelocytes) > 1% indicates that a LEFT SHIFT is Present. Performed By: #### L 100.0100, L500.2500 #### [facility] [address] [place], [address] Lymphocytes/100 WBC (Bld) 31.7 % Normal 19-41 [facility] Comment on above: Performed By: #### L 100.0100, L500.2500 #### [facility] Laboratory [address] [place], [address] MCH (RBC) [Entitic mass] 28.5 pg Normal 27.0-32.0 [facility] Comment on above: Performed By: #### L 100.0100, L500.2500 #### [facility] Laboratory [address] [place], [address] MCHC (RBC) [Mass/Vol] 31.6 g/dL Low 32-36 [facility] Comment on above: Performed By: #### L 100.0100, L500.2500 #### [facility] Laboratory [address] [place], [address] MCV (RBC) [Entitic vol] 90.0 fL Normal 80-94 [facility] Comment on above: Performed By: #### L 100.0100, L500.2500 #### [facility] Laboratory [address] [place], [address] Monocytes/100 WBC (Bld) 8.0 % Normal 0-10 [facility] Comment on above: Performed By: #### L 100.0100, L500.2500 #### [facility] Laboratory [address] [place], [address] Neutrophils/100 WBC (Bld) 55.2 % Normal 47-70 [facility] Comment on above: Performed By: #### L 100.0100, L500.2500 #### [facility] Laboratory [address] [place], [address] Nucleated RBC (Bld) [#/Vol] 0 10*3/uL Normal 0-5 [facility] Comment on above: Performed By: #### L 100.0100, L500.2500 #### [facility] Laboratory [address] [place], [address] Platelet mean volume (Bld) [Entitic vol] 9.4 fL Normal 6.2-12.0 [facility] Comment on above: Performed By: #### L 100.0100, L500.2500 #### [facility] Laboratory [address] [place], [address] Platelets (Bld) [#/Vol] 271 10*3/uL Normal 150-450 [facility] Comment on above: Performed By: #### L 100.0100, L500.2500 #### [facility] Laboratory [address] [place], [address] RBC (Bld) [#/Vol] 5.69 10*6/uL Normal 4.6-6.2 [facility] Comment on above: Performed By: #### L 100.0100, L500.2500 #### [facility] Laboratory [address] [place], [address] RDW SD 46.6 fl High 35.1-43.9 [facility] Comment on above: Performed By: #### L 100.0100, L500.2500 #### [facility] Laboratory [address] [place], [address] WBC (Bld) [#/Vol] 6.4 10*3/uL Normal 4.4-11.0 [facility] Comment on above: Performed By: #### L 100.0100, L500.2500 #### [facility] Laboratory [address] [place], [address] Basic Metabolic Profile (BMP )on 12-24-2023 BUN/CRE 19.1 RATIO Normal 10-20 [facility] Comment on above: Performed By: #### L 300.4310, L300.3900, L500.4050, L503.6620, L503.6005, L100.0100 #### [facility] Laboratory [address] [place], [address] CA,Total 8.4 mg/dL Low 8.5-10.1 [facility] Comment on above: Performed By: #### L 300.4310, L300.3900, L500.4050, L503.6620, L503.6005, L100.0100 #### [facility] Laboratory [address] [place], [address] Chloride [Moles/Vol] 98 mmol/L Normal 98-107 [facility] Comment on above: Performed By: #### L 300.4310, L300.3900, L500.4050, L503.6620, L503.6005, L100.0100 #### [facility] Laboratory [address] [place], [address] CO2 [Moles/Vol] 35.0 mmol/L High 21.0-32.0 [facility] Comment on above: Performed By: #### L 300.4310, L300.3900, L500.4050, L503.6620, L503.6005, L100.0100 #### [facility] Laboratory [address] [place], [address] Creatinine [Mass/Vol] 0.73 mg/dL Normal 0.70-1.30 [facility] Comment on above: Result Comment: The validity of the calculated GFR GFRAA in patients over 70 years has not been determined. Clinical correlation is essential. Performed By: #### L 300.4310, L300.3900, L500.4050, L503.6620, L503.6005, L100.0100 #### [facility] Laboratory [address] [place], [address] ECRCL 228.91 ml/min Normal [facility] Comment on above: Performed By: #### L 300.4310, L300.3900, L500.4050, L503.6620, L503.6005, L100.0100 #### [facility] Laboratory [address] [place], [address] EST GFR - AA 144 mL/min Normal >60 [facility] Comment on above: Result Comment: Afri can [place] GFR Calc Performed By: #### L 300.4310, L300.3900, L500.4050, L503.6620, L503.6005, L100.0100 #### [facility] Laboratory [address] [place], [address] GAP 3 Low 5-15 [facility] Comment on above: Performed By: #### L 300.4310, L300.3900, L500.4050, L503.6620, L503.6005, L100.0100 #### [facility] Laboratory [address] [place], [address] GFR/1.73 sq M.predicted among non-blacks MDRD (S/P/Bld) [Vol rate/Area] 119 mL/min/{1.73_m2} Normal >60 [facility] Comment on above: Result Comment: Non- GFR Calc Performed By: #### L 300.4310, L300.3900, L500.4050, L503.6620, L503.6005, L100.0100 #### [facility] Laboratory [address] [place], [address] Glucose [Mass/Vol] 142 mg/dL High 74-106 [facility] Comment on above: Result Comment: Fast ing Glucose result greater than or equal to 126 mg/dL suggests DIABETES MELLITUS per A.D.A. criteria. Performed By: #### L 300.4310, L300.3900, L500.4050, L503.6620, L503.6005, L100.0100 #### [facility] Laboratory [address] [place], [address] Potassium [Moles/Vol] 3.5 mmol/L Normal 3.5-5.1 [facility] Comment on above: Performed By: #### L 300.4310, L300.3900, L500.4050, L503.6620, L503.6005, L100.0100 #### [facility] Laboratory [address] [place], [address] Sodium [Moles/Vol] 136 mmol/L Normal 136-145 [facility] Comment on above: Performed By: #### L 300.4310, L300.3900, L500.4050, L503.6620, L503.6005, L100.0100 #### [facility] Laboratory [address] [place], [address] Urea nitrogen [Mass/Vol] 14 mg/dL Normal 7-18 [facility] Comment on above: Performed By: #### L 300.4310, L300.3900, L500.4050, L503.6620, L503.6005, L100.0100 #### [facility] Laboratory [address] [place], [address] CBC W/Diff, Automatedon 08-2 Absolute Lymph 1.92 X10 3/uL Normal 0.83-4.51 [facility] Comment on above: Performed By: #### L 300.4310, L300.3900, L500.4050, L503.6620, L503.6005, L100.0100 #### [facility] Laboratory [address] [place], [address] Absolute Neut 3.6 X10 3/uL Normal 2.0-7.7 [facility] Comment on above: Performed By: #### L 300.4310, L300.3900, L500.4050, L503.6620, L503.6005, L100.0100 #### [facility] Laboratory [address] [place], [address] Basophils/100 WBC (Bld) 0.8 % Normal 0-1 [facility] Comment on above: Performed By: #### L 300.4310, L300.3900, L500.4050, L503.6620, L503.6005, L100.0100 #### [facility] Laboratory [address] [place], [address] Eosinophils/100 WBC (Bld) 4.2 % Normal 0-5 [facility] Comment on above: Performed By: #### L 300.4310, L300.3900, L500.4050, L503.6620, L503.6005, L100.0100 #### [facility] Laboratory [address] [place], [address] Erythrocyte distribution width (RBC) [Ratio] 14.6 % Normal 11.6-14.6 [facility] Comment on above: Performed By: #### L 300.4310, L300.3900, L500.4050, L503.6620, L503.6005, L100.0100 #### [facility] Laboratory [address] [place], [address] Hematocrit (Bld) [Volume fraction] 50.5 % Normal 40-54 [facility] Comment on above: Performed By: #### L 300.4310, L300.3900, L500.4050, L503.6620, L503.6005, L100.0100 #### [facility] Laboratory [address] [place], [address] Hemoglobin (Bld) [Mass/Vol] 15.8 g/dL Normal 13.0-16.5 [facility] Comment on above: Performed By: #### L 300.4310, L300.3900, L500.4050, L503.6620, L503.6005, L100.0100 #### [facility] Laboratory [address] [place], [address] IG% 0.300 Normal 0.0-0.9 [facility] Comment on above: Result Comment: IG% - Immature Granulocytes (promyelocytes, myelocytes and metamyelocytes) > 1% indicates that a LEFT SHIFT is Present. Performed By: #### L 300.4310, L300.3900, L500.4050, L503.6620, L503.6005, L100.0100 #### [facility] Laboratory [address] [place], [address] Lymphocytes/100 WBC (Bld) 30.1 % Normal 19-41 [facility] Comment on above: Performed By: #### L 300.4310, L300.3900, L500.4050, L503.6620, L503.6005, L100.0100 #### [facility] Laboratory [address] [place], [address] MCH (RBC) [Entitic mass] 28.5 pg Normal 27.0-32.0 [facility] Comment on above: Performed By: #### L 300.4310, L300.3900, L500.4050, L503.6620, L503.6005, L100.0100 #### [facility] Laboratory [address] [place], [address] MCHC (RBC) [Mass/Vol] 31.3 g/dL Low 32-36 [facility] Comment on above: Performed By: #### L 300.4310, L300.3900, L500.4050, L503.6620, L503.6005, L100.0100 #### [facility] Laboratory [address] [place], [address] MCV (RBC) [Entitic vol] 91.2 fL Normal 80-94 [facility] Comment on above: Performed By: #### L 300.4310, L300.3900, L500.4050, L503.6620, L503.6005, L100.0100 #### [facility] Laboratory [address] [place], [address] Monocytes/100 WBC (Bld) 8.6 % Normal 0-10 [facility] Comment on above: Performed By: #### L 300.4310, L300.3900, L500.4050, L503.6620, L503.6005, L100.0100 #### [facility] Laboratory [address] [place], [address] Neutrophils/100 WBC (Bld) 56.0 % Normal 47-70 [facility] Comment on above: Performed By: #### L 300.4310, L300.3900, L500.4050, L503.6620, L503.6005, L100.0100 #### [facility] Laboratory [address] [place], [address] Nucleated RBC (Bld) [#/Vol] 0 10*3/uL Normal 0-5 [facility] Comment on above: Performed By: #### L 300.4310, L300.3900, L500.4050, L503.6620, L503.6005, L100.0100 #### [facility] Laboratory [address] [place], [address] Platelet mean volume (Bld) [Entitic vol] 9.3 fL Normal 6.2-12.0 [facility] Comment on above: Performed By: #### L 300.4310, L300.3900, L500.4050, L503.6620, L503.6005, L100.0100 #### [facility] Laboratory [address] [place], [address] Platelets (Bld) [#/Vol] 252 10*3/uL Normal 150-450 [facility] Comment on above: Performed By: #### L 300.4310, L300.3900, L500.4050, L503.6620, L503.6005, L100.0100 #### [facility] Laboratory [address] [place], [address] RBC (Bld) [#/Vol] 5.54 10*6/uL Normal 4.6-6.2 [facility] Comment on above: Performed By: #### L 300.4310, L300.3900, L500.4050, L503.6620, L503.6005, L100.0100 #### [facility] Laboratory [address] [place], [address] RDW SD 49.0 fl High 35.1-43.9 [facility] Comment on above: Performed By: #### L 300.4310, L300.3900, L500.4050, L503.6620, L503.6005, L100.0100 #### [facility] Laboratory [address] [place], [address] WBC (Bld) [#/Vol] 6.4 10*3/uL Normal 4.4-11.0 [facility] Comment on above: Performed By: #### L 300.4310, L300.3900, L500.4050, L503.6620, L503.6005, L100.0100 #### [facility] Laboratory [address] [place], [address] Magnesiumon 12-24-2023 Magnesium [Mass/Vol] 2.2 mg/dL Normal 1.6-2.6 [facility] Comment on above: Performed By: #### L 300.4310, L300.3900, L500.4050, L503.6620, L503.6005, L100.0100 #### [facility] Laboratory [address] [place], [address] Phosphoruson 12-24-2023 Phosphate [Mass/Vol] 3.4 mg/dL Normal 2.5-4.9 [facility] Comment on above: Performed By: #### L 300.4310, L300.3900, L500.4050, L503.6620, L503.6005, L100.0100 #### [facility] Laboratory [address] [place], [address] Urine Cultureon 12-24-2023 URC Below infection leve l. Mixed Gram Positive Organisms [place] Count 1000-10,000 MIXC Mixed contaminants. Submit a new specimen if indicated. Normal [facility] Comment on above: Performed By: #### M 100.2200, L400.0001 ####[facility] [address] [place], [address] Vancomycin, Trough Levelon 0 12-24-2023 VANCO, TROUGH 15.4 ug/mL High 5.0-15.0 [facility] Comment on above: Order Comment: Comme nts: Trough to be drawn 30 mins prior to scheduled [id number] Result Comment: VANC OMYCIN STANDARED DRUG THERAPY TROUGH LEVEL: 5.0 - 15.0 mg/L VANCOMYCIN HIGH INTENSITY THERAPY TROUGH LEVEL: 15.0 - 20.0 mg/L High Intensity therapy recommended for serious life threatening infections include: - Meningitis -Endocarditis -Pneumonia (Ventilator/Healtcare Associated) -Sepsis PLEASE CONTACT PHARMACY SERVICES (#[id number]) FOR INTERPRETATION OF RESULTS. Performed By: #### L 300.4310, L300.3900, L500.4050, L503.6620, L503.6005, L100.0100 #### [facility] Laboratory [address] [place], [address] Basic Metabolic Profile (BMP )on 12-23-2023 BUN/CRE 12.2 RATIO Normal 10-20 [facility] Comment on above: Performed By: #### L 501.9520, L500.2500, L501.5200 ####[facility] [address] [place], [address] CA,Total 8.4 mg/dL Low 8.5-10.1 [facility] Comment on above: Performed By: #### L 501.9520, L500.2500, L501.5200 ####[facility] [address] [place], [address] Chloride [Moles/Vol] 101 mmol/L Normal 98-107 [facility] Comment on above: Performed By: #### L 501.9520, L500.2500, L501.5200 ####[facility] [address] [place], [address] CO2 [Moles/Vol] 30.0 mmol/L Normal 21.0-32.0 [facility] Comment on above: Performed By: #### L 501.9520, L500.2500, L501.5200 ####[facility] [address] [place], [address] Creatinine [Mass/Vol] 0.74 mg/dL Normal 0.70-1.30 [facility] Comment on above: Result Comment: The validity of the calculated GFR GFRAA in patients over 70 years has not been determined. Clinical correlation is essential. Performed By: #### L 501.9520, L500.2500, L501.5200 ####[facility] [address] [place], [address] ECRCL 220.46 ml/min Normal [facility] Comment on above: Performed By: #### L 501.9520, L500.2500, L501.5200 ####[facility] [address] [place], [address] EST GFR - AA 143 mL/min Normal >60 [facility] Comment on above: Result Comment: Afri can [place] GFR Calc Performed By: #### L 501.9520, L500.2500, L501.5200 ####[facility] [address] [place], [address] GAP 5 Normal 5-15 [facility] Comment on above: Performed By: #### L 501.9520, L500.2500, L501.5200 ####[facility] [address] [place], [address] GFR/1.73 sq M.predicted among non-blacks MDRD (S/P/Bld) [Vol rate/Area] 118 mL/min/{1.73_m2} Normal >60 [facility] Comment on above: Result Comment: Non- GFR Calc Performed By: #### L 501.9520, L500.2500, L501.5200 ####[facility] [address] [place], [address] Glucose [Mass/Vol] 120 mg/dL High 74-106 [facility] Comment on above: Result Comment: Fast ing Glucose result from 100 to 125 mg/dL suggests IMPAIRED HOMEOSTASIS per A.D.A. criteria. Performed By: #### L 501.9520, L500.2500, L501.5200 ####[facility] [address] [place], [address] Potassium [Moles/Vol] 3.7 mmol/L Normal 3.5-5.1 [facility] Comment on above: Performed By: #### L 501.9520, L500.2500, L501.5200 ####[facility] [address] [place], [address] Sodium [Moles/Vol] 136 mmol/L Normal 136-145 [facility] Comment on above: Performed By: #### L 501.9520, L500.2500, L501.5200 ####[facility] [address] [place], [address] Urea nitrogen [Mass/Vol] 9 mg/dL Normal 7-18 [facility] Comment on above: Performed By: #### L 501.9520, L500.2500, L501.5200 ####[facility] [address] [place], [address] CBC W/Diff, Automatedon 12-01-2023 Absolute Lymph 1.69 X10 3/uL Normal 0.83-4.51 [facility] Comment on above: Performed By: #### L 300.4310, L300.3900, L500.4050, L503.6620, L503.6005, L100.0100 #### [facility] Laboratory [address] [place], [address] Absolute Neut 3.9 X10 3/uL Normal 2.0-7.7 [facility] Comment on above: Performed By: #### L 300.4310, L300.3900, L500.4050, L503.6620, L503.6005, L100.0100 #### [facility] Laboratory [address] [place], [address] Basophils/100 WBC (Bld) 0.8 % Normal 0-1 [facility] Comment on above: Performed By: #### L 300.4310, L300.3900, L500.4050, L503.6620, L503.6005, L100.0100 #### [facility] Laboratory [address] [place], [address] Eosinophils/100 WBC (Bld) 3.6 % Normal 0-5 [facility] Comment on above: Performed By: #### L 300.4310, L300.3900, L500.4050, L503.6620, L503.6005, L100.0100 #### [facility] Laboratory [address] [place], [address] Erythrocyte distribution width (RBC) [Ratio] 14.6 % Normal 11.6-14.6 [facility] Comment on above: Performed By: #### L 300.4310, L300.3900, L500.4050, L503.6620, L503.6005, L100.0100 #### [facility] Laboratory [address] [place], [address] Hematocrit (Bld) [Volume fraction] 51.2 % Normal 40-54 [facility] Comment on above: Performed By: #### L 300.4310, L300.3900, L500.4050, L503.6620, L503.6005, L100.0100 #### [facility] Laboratory [address] [place], [address] Hemoglobin (Bld) [Mass/Vol] 16.1 g/dL Normal 13.0-16.5 [facility] Comment on above: Performed By: #### L 300.4310, L300.3900, L500.4050, L503.6620, L503.6005, L100.0100 #### [facility] Laboratory [address] [place], [address] IG% 0.200 Normal 0.0-0.9 [facility] Comment on above: Result Comment: IG% - Immature Granulocytes (promyelocytes, myelocytes and metamyelocytes) > 1% indicates that a LEFT SHIFT is Present. Performed By: #### L 300.4310, L300.3900, L500.4050, L503.6620, L503.6005, L100.0100 #### [facility] Laboratory [address] [place], [address] Lymphocytes/100 WBC (Bld) 25.7 % Normal 19-41 [facility] Comment on above: Performed By: #### L 300.4310, L300.3900, L500.4050, L503.6620, L503.6005, L100.0100 #### [facility] Laboratory [address] [place], [address] MCH (RBC) [Entitic mass] 28.6 pg Normal 27.0-32.0 [facility] Comment on above: Performed By: #### L 300.4310, L300.3900, L500.4050, L503.6620, L503.6005, L100.0100 #### [facility] Laboratory [address] [place], [address] MCHC (RBC) [Mass/Vol] 31.4 g/dL Low 32-36 [facility] Comment on above: Performed By: #### L 300.4310, L300.3900, L500.4050, L503.6620, L503.6005, L100.0100 #### [facility] Laboratory [address] [place], [address] MCV (RBC) [Entitic vol] 91.1 fL Normal 80-94 [facility] Comment on above: Performed By: #### L 300.4310, L300.3900, L500.4050, L503.6620, L503.6005, L100.0100 #### [facility] Laboratory [address] [place], [address] Monocytes/100 WBC (Bld) 10.8 % High 0-10 [facility] Comment on above: Performed By: #### L 300.4310, L300.3900, L500.4050, L503.6620, L503.6005, L100.0100 #### [facility] Laboratory [address] [place], [address] Neutrophils/100 WBC (Bld) 58.9 % Normal 47-70 [facility] Comment on above: Performed By: #### L 300.4310, L300.3900, L500.4050, L503.6620, L503.6005, L100.0100 #### [facility] Laboratory [address] [place], [address] Nucleated RBC (Bld) [#/Vol] 0 10*3/uL Normal 0-5 [facility] Comment on above: Performed By: #### L 300.4310, L300.3900, L500.4050, L503.6620, L503.6005, L100.0100 #### [facility] Laboratory [address] [place], [address] Platelet mean volume (Bld) [Entitic vol] 9.3 fL Normal 6.2-12.0 [facility] Comment on above: Performed By: #### L 300.4310, L300.3900, L500.4050, L503.6620, L503.6005, L100.0100 #### [facility] Laboratory [address] [place], [address] Platelets (Bld) [#/Vol] 262 10*3/uL Normal 150-450 [facility] Comment on above: Performed By: #### L 300.4310, L300.3900, L500.4050, L503.6620, L503.6005, L100.0100 #### [facility] Laboratory [address] [place], [address] RBC (Bld) [#/Vol] 5.62 10*6/uL Normal 4.6-6.2 [facility] Comment on above: Performed By: #### L 300.4310, L300.3900, L500.4050, L503.6620, L503.6005, L100.0100 #### [facility] Laboratory [address] [place], [address] RDW SD 48.8 fl High 35.1-43.9 [facility] Comment on above: Performed By: #### L 300.4310, L300.3900, L500.4050, L503.6620, L503.6005, L100.0100 #### [facility] Laboratory [address] [place], [address] WBC (Bld) [#/Vol] 6.6 10*3/uL Normal 4.4-11.0 [facility] Comment on above: Performed By: #### L 300.4310, L300.3900, L500.4050, L503.6620, L503.6005, L100.0100 #### [facility] Laboratory [address] [place], [address] Gram Stainon 12-23-2023 GS List Antibiotics [place] 48 Hours? ROCEPHIN Gram Stain 1+ Gram positive cocci Rare Epithelial cells 2+ White Blood Cells No Epithelial cells [facility] Comment on above: Performed By: #### L 300.4310, L300.3900, L500.4050, L503.6620, L503.6005, L100.0100 #### [facility] Laboratory [address] [place], [address] [id number] 12-23-2023 [id number] Normal Reference Ran ge = Negative MRSA/SAUR WOUND PCR GeneXpert Instrument, PCR method MRSA PCR MRSA NEGATIVE STAPH. AUREUS PCR STAPH AUREUS POSITIVEA STAPH. AUREUS PCR STAPH AUREUS POSITIVEA * This is an amended result. * A prior result that was reported as final has been changed. 12/23/23819 by JEM Espinosa [facility] Comment on above: Performed By: #### L 300.4310, L300.3900, L500.4050, L503.6620, L503.6005, L100.0100 #### [facility] Laboratory [address] [place], [address] Magnesiumon 12-23-2023 Magnesium [Mass/Vol] 2.2 mg/dL Normal 1.6-2.6 [facility] Comment on above: Performed By: #### L 501.9520, L500.2500, L501.5200 ####[facility] [address] [place], [address] Phosphoruson 12-23-2023 Phosphate [Mass/Vol] 4.1 mg/dL Normal 2.5-4.9 [facility] Comment on above: Performed By: #### L 300.4310, L300.3900, L500.4050, L503.6620, L503.6005, L100.0100 #### [facility] Laboratory [address] [place], [address] Thyroid Stim Hormone (TSH)on 12-23-2023 TSH 3.150 uIU/mL Normal 0.358-3.74 0 [facility] Comment on above: Performed By: #### L 501.9520, L500.2500, L501.5200 ####[facility] [address] [place], [address] Venous Duplex US - Sammy Extre mon 12-23-2023 Venous Duplex US - Sammy Extrem [facility] [address] [place] [address] Venous Duplex US - Sammy Extrem 12/23/23 1012 MR#: [id number] Acct: [id number] Name: AZALIA MATTHEW II Rep #: [id number] : 1970 53 From: Francesco Antoine MD [...] Dictated: 12/23/23 1012 Date Transcribed: 12/23/23 1438 Patient Support Representative: Signed Normal [facility] BNP,B-Type NATRIURETIC PEPTI [place] 12-22-2023 Natriuretic peptide B (Bld) [Mass/Vol] 21.3 pg/mL Normal 0-100 [facility] Comment on above: Performed By: #### L 300.4310, L300.3900, L500.4050, L503.6620, L503.6005, L100.0100 #### [facility] Laboratory [address] [place], [address] CBC W/Diff, Automatedon 08-2 2-2023 Absolute Lymph 2.21 X10 3/uL Normal 0.83-4.51 [facility] Comment on above: Performed By: #### L 300.4310, L300.3900, L500.4050, L503.6620, L503.6005, L100.0100 #### [facility] Laboratory [address] [place], [address] Absolute Neut 6.9 X10 3/uL Normal 2.0-7.7 [facility] Comment on above: Performed By: #### L 300.4310, L300.3900, L500.4050, L503.6620, L503.6005, L100.0100 #### [facility] Laboratory [address] [place], [address] Basophils/100 WBC (Bld) 0.3 % Normal 0-1 [facility] Comment on above: Performed By: #### L 300.4310, L300.3900, L500.4050, L503.6620, L503.6005, L100.0100 #### [facility] Laboratory [address] [place], [address] Eosinophils/100 WBC (Bld) 2.0 % Normal 0-5 [facility] Comment on above: Performed By: #### L 300.4310, L300.3900, L500.4050, L503.6620, L503.6005, L100.0100 #### [facility] Laboratory [address] [place], [address] Erythrocyte distribution width (RBC) [Ratio] 14.8 % High 11.6-14.6 [facility] Comment on above: Performed By: #### L 300.4310, L300.3900, L500.4050, L503.6620, L503.6005, L100.0100 #### [facility] Laboratory [address] [place], [address] Hematocrit (Bld) [Volume fraction] 51.8 % Normal 40-54 [facility] Comment on above: Performed By: #### L 300.4310, L300.3900, L500.4050, L503.6620, L503.6005, L100.0100 #### [facility] Laboratory [address] [place], [address] Hemoglobin (Bld) [Mass/Vol] 16.8 g/dL High 13.0-16.5 [facility] Comment on above: Performed By: #### L 300.4310, L300.3900, L500.4050, L503.6620, L503.6005, L100.0100 #### [facility] Laboratory [address] [place], [address] IG% 0.300 Normal 0.0-0.9 [facility] Comment on above: Result Comment: IG% - Immature Granulocytes (promyelocytes, myelocytes and metamyelocytes) > 1% indicates that a LEFT SHIFT is Present. Performed By: #### L 300.4310, L300.3900, L500.4050, L503.6620, L503.6005, L100.0100 #### [facility] [address] [place], [address] Lymphocytes/100 WBC (Bld) 21.6 % Normal 19-41 [facility] Comment on above: Performed By: #### L 300.4310, L300.3900, L500.4050, L503.6620, L503.6005, L100.0100 #### [facility] [address] [place], [address] MCH (RBC) [Entitic mass] 29.2 pg Normal 27.0-32.0 [facility] Comment on above: Performed By: #### L 300.4310, L300.3900, L500.4050, L503.6620, L503.6005, L100.0100 #### [facility] Laboratory [address] [place], [address] MCHC (RBC) [Mass/Vol] 32.4 g/dL Normal 32-36 [facility] Comment on above: Performed By: #### L 300.4310, L300.3900, L500.4050, L503.6620, L503.6005, L100.0100 #### [facility] Laboratory [address] [place], [address] MCV (RBC) [Entitic vol] 89.9 fL Normal 80-94 [facility] Comment on above: Performed By: #### L 300.4310, L300.3900, L500.4050, L503.6620, L503.6005, L100.0100 #### [facility] Laboratory [address] [place], [address] Monocytes/100 WBC (Bld) 8.2 % Normal 0-10 [facility] Comment on above: Performed By: #### L 300.4310, L300.3900, L500.4050, L503.6620, L503.6005, L100.0100 #### [facility] [address] [place], [address] Neutrophils/100 WBC (Bld) 67.6 % Normal 47-70 [facility] Comment on above: Performed By: #### L 300.4310, L300.3900, L500.4050, L503.6620, L503.6005, L100.0100 #### [facility] Laboratory [address] [place], [address] Nucleated RBC (Bld) [#/Vol] 0 10*3/uL Normal 0-5 [facility] Comment on above: Performed By: #### L 300.4310, L300.3900, L500.4050, L503.6620, L503.6005, L100.0100 #### [facility] Laboratory [address] [place], [address] Platelet mean volume (Bld) [Entitic vol] 10.4 fL Normal 6.2-12.0 [facility] Comment on above: Performed By: #### L 300.4310, L300.3900, L500.4050, L503.6620, L503.6005, L100.0100 #### [facility] Laboratory [address] [place], [address] Platelets (Bld) [#/Vol] 324 10*3/uL Normal 150-450 [facility] Comment on above: Performed By: #### L 300.4310, L300.3900, L500.4050, L503.6620, L503.6005, L100.0100 #### [facility] Laboratory [address] [place], [address] RBC (Bld) [#/Vol] 5.76 10*6/uL Normal 4.6-6.2 [facility] Comment on above: Performed By: #### L 300.4310, L300.3900, L500.4050, L503.6620, L503.6005, L100.0100 #### [facility] Laboratory [address] [place], [address] RDW SD 48.8 fl High 35.1-43.9 [facility] Comment on above: Performed By: #### L 300.4310, L300.3900, L500.4050, L503.6620, L503.6005, L100.0100 #### [facility] [address] [place], [address] WBC (Bld) [#/Vol] 10.2 10*3/uL Normal 4.4-11.0 [facility] Comment on above: Performed By: #### L 300.4310, L300.3900, L500.4050, L503.6620, L503.6005, L100.0100 #### [facility] Laboratory [address] [place], [address] Chest 1 View (Portable)on Chest 1 View (Portable) [facility] Imaging Services [address] [place] [address] Chest 1 View (Portable) MR#: [id number] Acct: [id number] Name: AZALIA MATTHEW II Rep #: [id number] : 1970 M 53 From: Fernando Thomas MD PCP: Care Physician,No Primary Status: REG ER Study: Chest 1 View (Portable) Date of Exam: 12/22/23 Exam# [id number] Ordering Dr: Brennon Steiner DO [id number] INDICATION: sob EXAMINATION/TECHNIQUE: X-RAY - XR Chest [...] IMPRESSION: Pulmonary vascular congestion. Electronically Signed: Fernando Thomsa DO at 22:05 EDT , CC: Dr. Brennon Steiner DO; No Primary Care Physician Patient Support Representative: Signed Normal [facility] Comprehensive Metabolic Prof benigno 12-22-2023 Albumin [Mass/Vol] 3.3 g/dL Normal 3.2-5.0 [facility] Comment on above: Performed By: #### L 300.4310, L300.3900, L500.4050, L503.6620, L503.6005, L100.0100 #### [facility] Laboratory [address] [place], [address] Albumin/Globulin [Mass ratio] 0.7 {ratio} Low 0.9-2.4 [facility] Comment on above: Performed By: #### L 300.4310, L300.3900, L500.4050, L503.6620, L503.6005, L100.0100 #### [facility] Laboratory [address] [place], [address] ALK P 192 U/L High 45-117 [facility] Comment on above: Performed By: #### L 300.4310, L300.3900, L500.4050, L503.6620, L503.6005, L100.0100 #### [facility] Laboratory [address] [place], [address] ALT [Catalytic activity/Vol] 28 U/L Normal 16-61 [facility] Comment on above: Performed By: #### L 300.4310, L300.3900, L500.4050, L503.6620, L503.6005, L100.0100 #### [facility] Laboratory [address] [place], [address] AST [Catalytic activity/Vol] 24 U/L Normal 15-37 [facility] Comment on above: Result Comment: Slig ht Hemolysis, Result may be falsely increased. Performed By: #### L 300.4310, L300.3900, L500.4050, L503.6620, L503.6005, L100.0100 #### [facility] Laboratory [address] [place], [address] Bilirubin [Mass/Vol] 0.90 mg/dL Normal 0.20-1.00 [facility] Comment on above: Result Comment: For patients on eltrombopag therapy, use of Dimension [place] TBIL is not recommended. Performed By: #### L 300.4310, L300.3900, L500.4050, L503.6620, L503.6005, L100.0100 #### [facility] Laboratory [address] [place], [address] BUN/CRE 10.8 RATIO Normal 10-20 [facility] Comment on above: Performed By: #### L 300.4310, L300.3900, L500.4050, L503.6620, L503.6005, L100.0100 #### [facility] Laboratory [address] [place], [address] CA,Total 9.0 mg/dL Normal 8.5-10.1 [facility] Comment on above: Performed By: #### L 300.4310, L300.3900, L500.4050, L503.6620, L503.6005, L100.0100 #### [facility] Laboratory [address] [place], [address] Chloride [Moles/Vol] 100 mmol/L Normal 98-107 [facility] Comment on above: Performed By: #### L 300.4310, L300.3900, L500.4050, L503.6620, L503.6005, L100.0100 #### [facility] Laboratory [address] [place], [address] CO2 [Moles/Vol] 33.0 mmol/L High 21.0-32.0 [facility] Comment on above: Performed By: #### L 300.4310, L300.3900, L500.4050, L503.6620, L503.6005, L100.0100 #### [facility] Laboratory [address] [place], [address] Creatinine [Mass/Vol] 0.84 mg/dL Normal 0.70-1.30 [facility] Comment on above: Result Comment: The validity of the calculated GFR GFRAA in patients over 70 years has not been determined. Clinical correlation is essential. Performed By: #### L 300.4310, L300.3900, L500.4050, L503.6620, L503.6005, L100.0100 #### [facility] Laboratory [address] [place], [address] EST GFR - AA 124 mL/min Normal >60 [facility] Comment on above: Result Comment: Afri can [place] GFR Calc Performed By: #### L 300.4310, L300.3900, L500.4050, L503.6620, L503.6005, L100.0100 #### [facility] Laboratory [address] [place], [address] GAP 4 Low 5-15 [facility] Comment on above: Performed By: #### L 300.4310, L300.3900, L500.4050, L503.6620, L503.6005, L100.0100 #### [facility] Laboratory [address] [place], [address] GFR/1.73 sq M.predicted among non-blacks MDRD (S/P/Bld) [Vol rate/Area] 103 mL/min/{1.73_m2} Normal >60 [facility] Comment on above: Result Comment: Non- GFR Calc Performed By: #### L 300.4310, L300.3900, L500.4050, L503.6620, L503.6005, L100.0100 #### [facility] Laboratory [address] [place], [address] Globulin (S) [Mass/Vol] 4.9 g/dL High 2.2-4.2 [facility] Comment on above: Performed By: #### L 300.4310, L300.3900, L500.4050, L503.6620, L503.6005, L100.0100 #### [facility] Laboratory [address] [place], [address] Glucose [Mass/Vol] 98 mg/dL Normal 74-106 [facility] Comment on above: Performed By: #### L 300.4310, L300.3900, L500.4050, L503.6620, L503.6005, L100.0100 #### [facility] Laboratory [address] [place], [address] Potassium [Moles/Vol] 4.0 mmol/L Normal 3.5-5.1 [facility] Comment on above: Result Comment: Slig ht Hemolysis, Result may be falsely increased. Performed By: #### L 300.4310, L300.3900, L500.4050, L503.6620, L503.6005, L100.0100 #### [facility] Laboratory [address] [place], [address] Sodium [Moles/Vol] 137 mmol/L Normal 136-145 [facility] Comment on above: Performed By: #### L 300.4310, L300.3900, L500.4050, L503.6620, L503.6005, L100.0100 #### [facility] Laboratory [address] [place], [address] T PROT 8.2 g/dL Normal 6.4-8.2 [facility] Comment on above: Performed By: #### L 300.4310, L300.3900, L500.4050, L503.6620, L503.6005, L100.0100 #### [facility] Laboratory [address] [place], [address] Urea nitrogen [Mass/Vol] 9 mg/dL Normal 7-18 [facility] Comment on above: Performed By: #### L 300.4310, L300.3900, L500.4050, L503.6620, L503.6005, L100.0100 #### [facility] Laboratory [address] [place], [address] Echo Complete W/ Contraston 12-22-2023 Echo Complete W/ Contrast [facility] [address] [place] [address] Echo Complete W/ Contrast 12/23/23 0729 MR#: [id number] Acct: [id number] Name: AZALIA MATTHEW II Rep #: [id number] : 1970 53 From: Kareem Rizzo MD [...] Date Kareem Rizzo MD CC: Dr. Isma Parkinson MD; Dr. Irena Pérez DO; No Primary Care Physician Date Dictated: 12/23/23728 Date Transcribed: 12/23/23 1000 Patient Support Representative: Signed Normal [facility] Emergency Department Summary on 12-22-2023 Emergency Department Summary [facility] Medical Records Department [address] [place] [address] Emergency Department Summary 12/22/23 MR#: [id number] Acct: [id number] Name: AZALIA MATTHEW II Rep #: [id number] : 1970 53 From: Brennon Steiner DO PCP: Care Physician,No Primary Status:ADM IN Location: [place] [address] HPI History of Present Illness Chief Complaint: Wound Narrative Narrative: Patient is a 53-year-old male with no known significant past medical history does not follow with a physician on regular basis who presents to the [facility] part with a chief complaint of bilateral lower extremity wounds. He states that he was recently admitted to [facility] for wounds to the bilateral lower extremities [...] Patient denies any history of blood clots. [facility] Medical History (Updated 12/22/23 @ 22:48 by [...] following commands knew that he was at [facility] years 2023 Skin: Patient has bilateral lower [...] a rate (more content not included)... Normal [facility] H AND P Exam - Hospitaliston 12-22-2023 H&P Exam - Hospitalist [facility] Medical Records Department [address] [place] [address] H P Exam - Hospitalist 12/22/233 MR#: [id number] Acct: [id number] Name: AZALIA MATTHEW II Rep #: [id number] : 1970 53 From: Irena Pérez DO PCP: Care Physician,No Primary Status:ADM IN [place] [facility] [id number] HPI - General General Date of Admission: 12/22/23 Date of Service: 12/22/23 Chief Complaint: Bilateral leg pain, swelling, wounds HPI Narrative AZALIA MATTHEW, is a 53 M who presented to the emergency department at [facility] on 12/22/2019 for with worsening bilateral lower extremity swelling, pain, and wounds that have been present for some time. The patient reports that he had recently been admitted at [facility]. He reported that since his discharge he is getting worse. He denies any knowledge of being treated with antibiotics there and states he takes no chronic medications and has been on no medications recently. He has a friend at the bedside who has been assisting in taking care of him. 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 [...] department and request for admission was made. 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 Normal [facility] Lactic Acidon 12-22-2023 Lactate [Moles/Vol] 1.8 mmol/L Normal 0.4-1.9 [facility] Comment on above: Order Comment: Y Performed By: #### L 300.4310, L300.3900, L500.4050, L503.6620, L503.6005, L100.0100 #### [facility] Laboratory [address] [place], [address] Partial Thromboplast Timeon 12-22-2023 aPTT Coag (Bld) [Time] 29.6 s Normal 24.1-36.2 [facility] Comment on above: Performed By: #### L 300.4310, L300.3900, L500.4050, L503.6620, L503.6005, L100.0100 #### [facility] Laboratory [address] [place], [address] ( Prothrombin Time w/INRon INR Coag (PPP) [Relative time] 1.1 {INR} Normal [facility] Comment on above: Performed By: #### L 300.4310, L300.3900, L500.4050, L503.6620, L503.6005, L100.0100 #### [facility] Laboratory [address] [place], [address] PT Coag (PPP) [Time] 14.5 s Normal 11.7-14.9 [facility] Comment on above: Performed By: #### L 300.4310, L300.3900, L500.4050, L503.6620, L503.6005, L100.0100 #### [facility] Laboratory [address] [place], [address] Tibia Fibula 2 Viewson 12-21 Tibia Fibula 2 Views [facility] Imaging Services [address] [place], [place] [address] Tibia Fibula 2 Views MR#: [id number] Acct: [id number] Name: AZALIA MATTHEW TARI Rep #: [id number] : 1970 M 53 From: Fernando Thomas MD PCP: Care Physician,No Primary Status: REG ER Study: Tibia Fibula 2 Views Date of Exam: 12/22/23 Exam# [id number] Ordering Dr: Brennon Steiner DO [id number] INDICATION: Bilateral extremity cellulitis EXAMINATION/TECHNIQUE: X-RAY - [...] Brennon Steiner DO; No Primary Care Physician Patient Support Representative: Signed Normal [facility] Tibia Fibula 2 Views [facility] Imaging Services [address] [place], [place] [address] Tibia Fibula 2 Views MR#: [id number] Acct: [id number] Name: AZALIA MATTHEW II Rep #: [id number] : 1970 M 53 From: Fernando Thomas MD PCP: Care Physician,No Primary Status: [facility] ER Study: Tibia Fibula 2 Views Date of Exam: 12/22/23 Exam# [id number] Ordering Dr: Brennon Steiner DO [id number] INDICATION: BILATERAL EXTREMITY CELLULITIS EXAMINATION/TECHNIQUE: X-RAY - [...] Brennon Steiner, DO; No Primary Care Physician Patient Support Representative: Signed Normal [facility] Urinalysis, Completeon 12-21 BACTERIA 1+ /hpf Normal None Seen [facility] Comment on above: Order Comment: COLLE CTOR TO SPECIFY Performed By: #### M 100.2200, L400.0001 ####[facility] [address] [place], [address] Mucus Ql (Urine sed) 1+ /hpf Normal [facility] Comment on above: Order Comment: COLLE CTOR TO SPECIFY Performed By: #### M 100.2200, L400.0001 ####[facility] [address] [place], [address] RBC 0-5 SEEN Normal 0-5 [facility] Comment on above: Order Comment: [facility] CTOR TO SPECIFY Performed By: #### M 100.2200, L400.0001 ####[facility] [address] [place], [address] WBC 0-5 SEEN Normal 0-5 [facility] Comment on above: Order Comment: [facility] CTOR TO SPECIFY Performed By: #### M 100.2200, L400.0001 ####[facility] [address] [place], [address] EPI,SQUAMOUS 0 SEEN Normal 0-5 [facility] Comment on above: Order Comment: COLLE CTOR TO SPECIFY Performed By: #### M 100.2200, L400.0001 ####[facility] [address] [place], [address] BASIC METABOLIC PANELon 07-2 Anion gap [Moles/Vol] 3 mmol/L Low 8-12 [facility] Comment on above: Performed By: #### 4 [id number], [id number] #### [address] [place] [address] [facility] Calcium [Mass/Vol] 9.2 mg/dL Normal 8.4-10.4 [facility] Comment on above: Performed By: #### 4 [id number], [id number] #### [address] [place] [address] [place] Chloride [Moles/Vol] 97 mmol/L Normal 96-109 [facility] Comment on above: Performed By: #### 4 [id number], [id number] #### [address] [place] [address] [place] CO2 [Moles/Vol] 37 mmol/L High 22-30 [facility] Comment on above: Performed By: #### 4 [id number], [id number] #### [address] [place] [address] [facility] Creatinine [Mass/Vol] 0.87 mg/dL Normal 0.66-1.25 [facility] Comment on above: Performed By: #### 4 [id number], [id number] #### [address] [place] [address] [place] GLOMERULAR FILTRATION RATE ML/MIN/1.73 SQ M.PREDICTED 103.8 mL/min/1.73m*2 Normal >=60.0 [facility] Comment on above: Result [...] Kidney Int Suppl.2013;3:1-150 Performed By: #### 4 [id number], [id number] #### [address] [place] [address] [place] Glucose [Mass/Vol] 112 mg/dL High 65-100 [facility] Comment on above: Performed By: #### 4 [id number], [id number] #### [address] [place] [address] [place] Potassium [Moles/Vol] 4.2 mmol/L Normal 3.6-5.1 [facility] Comment on above: Performed By: #### 4 [id number], [id number] #### [address] Sodium [Moles/Vol] 137 mmol/L Normal 135-147 [facility] Comment on above: Performed By: #### 4 [id number], [id number] #### [address] Urea nitrogen [Mass/Vol] 14 mg/dL Normal 8-26 [facility] Comment on above: Performed By: #### 4 [id number], [id number] #### [address] Basic metabolic panelon 07-2 Anion gap [Moles/Vol] 3 mmol/L Low 8 - 12 mmol/L [facility] Calcium [Mass/Vol] 9.2 mg/dL 8.4 - 10. 4 mg/dL [facility] Calcium hydrogen phosphate dihydrate crystals LM Ql (Urine sed) 14 mg/dL 8 - 26 mg/dL [facility] Chloride [Moles/Vol] 97 mmol/L 96 - 10 9 mmol/L [facility] CO2 (BldMV) [Moles/Vol] 37 mmol/L High 22 - 30 mmol/L [facility] Creatinine [Mass/Vol] 0.87 mg/dL 0.66 - 1.25 mg/dL [facility] GFR/1.73 sq M.predicted among non-blacks MDRD (S/P/Bld) [Vol rate/Area] 103.8 mL/min/{1.73_m2} - PINF [facility] Comment on above: eGFR [...] 112 mg/dL High 65 - 100 mg/dL [facility] Potassium [Moles/Vol] 4.2 mmol/L 3.6 - 5.1 mmol/L [facility] Sodium [Moles/Vol] 137 mmol/L 135 - 147 mmol/L [facility] CBCon 11-26-2023 Age [Time] 88.2 fL 80.6 - 99 fL [facility] Age [Time] 29.1 pg 27.0 - 34.2 pg [facility] Age [Time] 33.0 g/dL 31.4 - 36.2 g/dL [facility] Erythrocyte distribution width (RBC) [Ratio] 13.8 % 11.5 - 14.5 % [facility] Hematocrit (Bld) [Volume fraction] 52.4 % High 37.7 - 51.1 % [facility] Hexanoylglycine (U) [Moles/Vol] 17.3 g/dL 12.8 - 17.7 g/dL [facility] Interpretation and review of laboratory results Abnormal [facility] Platelets (Bld) [#/Vol] 253 10*3/uL [facility] RBC (Bld) [#/Vol] 5.94 10*6/uL High [facility] WBC (Bld) [#/Vol] 6.7 10*3/uL [facility] Erythrocyte distribution width (RBC) [Ratio] 13.8 % Normal 11.5-14.5 [facility] Comment on above: Performed By: #### 4 [id number], [id number], [id number], [id number] #### HO GUEVARA (2012) [facility] [address] [place] [address] Hematocrit (Bld) [Volume fraction] 52.4 % High 37.7-51.1 [facility] Comment on above: Performed By: #### 4 1121496, 38133664, [id number], [id number] #### HO GUEVARA (2012) [facility] [address] [place] [address] Hemoglobin (Bld) [Mass/Vol] 17.3 g/dL Normal 12.8-17.7 [facility] Comment on above: Performed By: #### 4 [id number], [id number], [id number], [id number] #### HO GUEVARA (2012) [facility] [address] [place] [address] MCH (RBC) [Entitic mass] 29.1 pg Normal 27.0-34.2 [facility] Comment on above: Performed By: #### 4 [id number], [id number], [id number], [id number] #### HO GUEVARA (2012) [facility] [address] [place] [address] MCHC (RBC) [Mass/Vol] 33.0 g/dL Normal 31.4-36.2 [facility] Comment on above: Performed By: #### 4 [id number], [id number], [id number], [id number] #### HO GUEVARA (2012) [facility] [address] [place] [address] MCV (RBC) [Entitic vol] 88.2 fL Normal 80.6-99 [facility] Comment on above: Performed By: #### 4 [id number], [id number], [id number], [id number] #### HO GUEVARA (2012) [facility] [address] [place] [address] PLATELET COUNT 253 x10*3/uL Normal 150-400 [facility] Comment on above: Performed By: #### 4 [id number], [id number], [id number], [id number] #### HO GUEVARA (2012) [facility] [address] [place] [address] RED BLOOD CELL COUNT 5.94 x10*6/uL High 3.70-5.70 [facility] Comment on above: Performed By: #### 4 8065052, [id number], [id number], [id number] #### HO GUEVARA (2012) [facility] [address] [place] [address] WHITE BLOOD CELLS 6.7 x10*3/uL Normal 4.3-10.3 [facility] Comment on above: Performed By: #### 4 5729163, [id number], [id number], [id number] #### HO GUEVARA (2012) [facility] [address] [place] [address] HEPATIC FUNCTION PANELon Albumin [Mass/Vol] 4.4 g/dL Normal 3.5-5.0 [facility] Comment on above: Performed By: #### 4 [id number], [id number] #### [address] ALK PHOS 201 U/L High 24-126 [facility] Comment on above: Performed By: #### 4 [id number], [id number] #### [facility] [address] ALT [Catalytic activity/Vol] 75 U/L High 4-50 [facility] Comment on above: Performed By: #### 4 [id number], [id number] #### [place] [address] AST [Catalytic activity/Vol] 63 U/L High 3-55 [facility] Comment on above: Performed By: #### 4 [id number], [id number] #### [place] [address] Bilirubin [Mass/Vol] 1.3 mg/dL Normal 0.2-1.6 [facility] Comment on above: Performed By: #### 4 4090206, [id number] #### [address] Bilirubin.indirect [Mass/Vol] 0.5 mg/dL Normal <=0.5 [facility] Comment on above: Performed By: #### 4 [id number], [id number] #### [facility] [address] Protein [Mass/Vol] 8.7 g/dL High 6.3-8.2 [facility] Comment on above: Performed By: #### 4 [id number], [id number] #### [facility] [address] Hepatic function panelon Albumin (Syn fld) [Mass/Vol] 4.4 g/dL 3.5 - 5.0 g/dL [facility] Aldosterone (U) [Mass/Vol] 201 U/L High 24 - 126 U/L [facility] ALT [Catalytic activity/Vol] 75 U/L High 4 - 50 U/L [facility] AST [Catalytic activity/Vol] 63 U/L High 3 - 55 U/L [facility] Bilirubin [Mass/Vol] 1.3 mg/dL 0.2 - 1 .6 mg/dL [facility] Bilirubin.conjugated [Mass/Vol] 0.5 mg/dL NINF - 0.5 mg/dL [facility] Protein [Mass/Vol] 8.7 g/dL High 6.3 - 8.2 g/dL [facility] No Panel Informationon 11-25 Interpretation and review of laboratory results Abnormal [facility] US LIVERon 11-26-2023 US LIVER Limited [...] wnl Ordering Physician: Sara Ramirez MD Normal [facility] 11-26-2023 1. Less than optimal. No distinct evidence of acute process on this exam [facility] Limited abdominal ultrasound . 11/26/2023 9:59 AM [...] evidence of acute process on this exam [facility] Radiology Study observation (narrative) [facility] US LiverOrdered By: Kamron Arrington on 11-26-2023 [facility] Work Phone: BASIC METABOLIC PANELon - Anion gap [Moles/Vol] 5 mmol/L Low 8-12 [facility] Comment on above: Performed By: #### 4 [id number], [id number], [id number], [id number] #### HO GUEVARA (2012) [facility] [address] [place] [address] Calcium [Mass/Vol] 9.1 mg/dL Normal 8.4-10.4 [facility] Comment on above: Performed By: #### 4 [id number], [id number], [id number], [id number] #### HO GUEVARA (2012) [facility] [address] [place] [address] Chloride [Moles/Vol] 97 mmol/L Normal 96-109 [facility] Comment on above: Performed By: #### 4 9205190, 69815175, [id number], [id number] #### HO GUEVARA (2012) [facility] [address] [place] [address] CO2 [Moles/Vol] 37 mmol/L High 22-30 [facility] Comment on above: Performed By: #### 4 5587780, 23217387, [id number], [id number] #### HO GUEVARA (2012) [facility] [address] [place] [address] Creatinine [Mass/Vol] 0.77 mg/dL Normal 0.66-1.25 [facility] Comment on above: Performed By: #### 4 6918529, 76645025, [id number], [id number] #### HO GUEVARA (2012) [facility] [address] [place] [address] GLOMERULAR FILTRATION RATE ML/MIN/1.73 SQ M.PREDICTED 107.7 mL/min/1.73m*2 Normal >=60.0 [facility] Comment on above: Result [...] Kidney Int Suppl.2013;3:1-150 Performed By: #### 4 8239042, 35260072, [id number], [id number] #### HO GUEVARA (2012) [facility] [address] [place] [address] Glucose [Mass/Vol] 102 mg/dL High 65-100 [facility] Comment on above: Performed By: #### 4 6742549, 97473518, [id number], [id number] #### HO GUEVARA (2012) [facility] [address] [place] [address] Potassium [Moles/Vol] 4.2 mmol/L Normal 3.6-5.1 [facility] Comment on above: Performed By: #### 4 2705469, [id number], [id number], 67594592 #### HO GUEVARA (2012) [facility] [address] [place] [address] Sodium [Moles/Vol] 139 mmol/L Normal 135-147 [facility] Comment on above: Performed By: #### 4 6039701, 65962379, [id number], [id number] #### HO GUEVARA (2012) [facility] [address] [place] [address] Urea nitrogen [Mass/Vol] 12 mg/dL Normal 8-26 [facility] Comment on above: Performed By: #### 4 2154191, 39772536, [id number], [id number] #### HO GUEVARA (2013) [facility] [address] [place] [address] Bacteria identified Cx Nom ( Wound)on 11-25-2023 Interpretation and review of laboratory results Abnormal [facility] Microscopic observation Gram stain Nom (Unsp spec) No organisms seen [facility] Bacteria identified Cx Nom ( Wound)Ordered By: Daphne Rincon on 11-25-2023 Interpretation and review of laboratory results Abnormal [facility] Microscopic observation Gram stain Nom (Unsp spec) Rare PMNs [facility] Microscopic observation Gram stain Nom (Unsp spec) Rare RBCs [facility] Microscopic observation Gram stain Nom (Unsp spec) Positive [facility] Basic metabolic panelon 10-31 Anion gap [Moles/Vol] 5 mmol/L Low 8 - 12 mmol/L [facility] Calcium [Mass/Vol] 9.1 mg/dL 8.4 - 10. 4 mg/dL [facility] Calcium hydrogen phosphate dihydrate crystals LM Ql (Urine sed) 12 mg/dL 8 - 26 mg/dL [facility] Chloride [Moles/Vol] 97 mmol/L 96 - 10 9 mmol/L [facility] CO2 (BldMV) [Moles/Vol] 37 mmol/L High 22 - 30 mmol/L [facility] Creatinine [Mass/Vol] 0.77 mg/dL 0.66 - 1.25 mg/dL [facility] GFR/1.73 sq M.predicted among non-blacks MDRD (S/P/Bld) [Vol rate/Area] 107.7 mL/min/{1.73_m2} - PINF [facility] Comment on above: eGFR [...] 102 mg/dL High 65 - 100 mg/dL [facility] Interpretation and review of laboratory results Abnormal [facility] Potassium [Moles/Vol] 4.2 mmol/L 3.6 - 5.1 mmol/L [facility] Sodium [Moles/Vol] 139 mmol/L 135 - 147 mmol/L [facility] CBC AND DIFFERENTIALon 11-24 ABSOLUTE BASOPHIL 0.1 x10*3/uL Normal 0.0-0.1 [facility] Comment on above: Performed By: #### 4 [id number], [id number], [id number], [id number] #### HO GUEVARA (2012) [facility] [address] [place] [address] ABSOLUTE EOSINOPHIL 0.3 x10*3/uL Normal 0.1-0.3 [facility] Comment on above: Performed By: #### 4 8425769, 11551617, [id number], [id number] #### HO GUEVARA (2012) [facility] [address] [place] [address] ABSOLUTE IMMATURE GRANULOCYTES 0.0 x10*3/uL Normal 0.0-0.1 [facility] Comment on above: Performed By: #### 4 2465303, 78696893, [id number], [id number] #### HO GUEVARA (2012) [facility] [address] [place] [address] ABSOLUTE LYMPH 1.9 x10*3/uL Normal 1.2-3.3 [facility] Comment on above: Performed By: #### 4 [id number], 95226625, [id number], [id number] #### HO GUEVARA (2012) [facility] [address] [place] [address] ABSOLUTE MONO 0.6 x10*3/uL Normal 0.2-0.6 [facility] Comment on above: Performed By: #### 4 5674993, 56840331, [id number], 53500918 #### HO GUEVARA (2012) [facility] [address] [place] [address] ABSOLUTE NEUTROPHIL 4.3 x10*3/uL Normal 2.4-6.6 [facility] Comment on above: Performed By: #### 4 9479781, 82357726, [id number], [id number] #### HO GUEVARA (2012) [facility] [address] [place] [address] Basophils/100 WBC (Bld) 0.8 % Normal [facility] Comment on above: Performed By: #### 4 3504957, 57838205, [id number], [id number] #### HO GUEVARA (2012) [facility] [address] [place] [address] Eosinophils/100 WBC (Bld) 3.8 % Normal [facility] Comment on above: Performed By: #### 4 8169365, 91180164, [id number], [id number] #### HO GUEVARA (2012) [facility] [address] [place] [address] Erythrocyte distribution width (RBC) [Ratio] 13.8 % Normal 11.5-14.5 [facility] Comment on above: Performed By: #### 4 9920582, 60924970, [id number], [id number] #### HO GUEVARA (2012) [facility] [address] [facility] [place] [address] Hematocrit (Bld) [Volume fraction] 52.6 % High 37.7-51.1 [facility] Comment on above: Performed By: #### 4 5920867, 98517928, [id number], [id number] #### HO GUEVARA (2012) [facility] [address] [facility] [place] [address] Hemoglobin (Bld) [Mass/Vol] 17.2 g/dL Normal 12.8-17.7 [facility] Comment on above: Performed By: #### 4 7685559, 24230465, [id number], [id number] #### HO GUEVARA (2012) [facility] [address] [place] [address] Immature granulocytes/100 WBC (Bld) 0.1 % Normal [facility] Comment on above: Performed By: #### 4 6062707, 61638586, [id number], [id number] #### HO GUEVARA (2012) [facility] [address] [place] [address] Lymphocytes/100 WBC (Bld) 26.3 % Normal [facility] Comment on above: Performed By: #### 4 6394693, 67552541, [id number], [id number] #### HO GUEVARA (2012) [facility] [address] [place] [address] MCH (RBC) [Entitic mass] 29.0 pg Normal 27.0-34.2 [facility] Comment on above: Performed By: #### 4 0458574, 96479280, [id number], [id number] #### HO GUEVARA (2012) [facility] [address] [place] [address] MCHC (RBC) [Mass/Vol] 32.7 g/dL Normal 31.4-36.2 [facility] Comment on above: Performed By: #### 4 4911811, 71436992, [id number], [id number] #### HO GUEVARA (2012) [facility] [address] [place] [address] MCV (RBC) [Entitic vol] 88.7 fL Normal 80.6-99 [facility] Comment on above: Performed By: #### 4 1195810, 77778588, [id number], [id number] #### HO GUEVARA (2012) [facility] [address] [place] [address] Monocytes/100 WBC (Bld) 8.3 % Normal [facility] Comment on above: Performed By: #### 4 2812032, 90046005, [id number], [id number] #### HO GUEVARA (2012) [facility] [address] [place] [address] Neutrophils/100 WBC (Bld) 60.7 % Normal [facility] Comment on above: Performed By: #### 4 9421243, 62347849, [id number], 53575189 #### HO GUEVARA (2012) [facility] [address] [place] [address] NUCLEATED RED BLOOD CELLS AUTO 0.0 % Normal 0.0-1.0 [facility] Comment on above: Performed By: #### 4 8967610, 49258526, [id number], [id number] #### HO GUEVARA (2012) [facility] [address] [facility] [place] [address] PLATELET COUNT 263 x10*3/uL Normal 150-400 [facility] Comment on above: Performed By: #### 4 0666989, 87327918, [id number], [id number] #### HO GUEVARA (2012) [facility] [address] [place] [address] RED BLOOD CELL COUNT 5.93 x10*6/uL High 3.70-5.70 [facility] Comment on above: Performed By: #### 4 [id number], 17089710, [id number], [id number] #### HO GUEVARA (2012) [facility] [address] [place] [address] WHITE BLOOD CELLS 7.1 x10*3/uL Normal 4.3-10.3 [facility] Comment on above: Performed By: #### 4 4907397, 23507653, [id number], [id number] #### HO GUEVARA (2012) [facility] [address] [facility] [address] CBC with Differentialon 10-31 Absolute Immature Granulocytes 0.0 [facility] Age [Time] 88.7 fL 80.6 - 99 fL [facility] Age [Time] 29.0 pg 27.0 - 34.2 pg [facility] Age [Time] 32.7 g/dL 31.4 - 36.2 g/dL [facility] B. burgdorferi IgM IB Ql (CSF) 26.3 % [facility] Basophils (Bld) [#/Vol] 0.1 10*3/uL [facility] Basophils/100 WBC (Body fld) 0.8 % [facility] Eosinophils (Bld) [#/Vol] 1.9 10*3/uL [facility] Eosinophils (Bld) [#/Vol] 0.6 10*3/uL [facility] Eosinophils (Bld) [#/Vol] 0.3 10*3/uL [facility] Eosinophils/100 WBC (Bld) 3.8 % [facility] Erythrocyte distribution width (RBC) [Ratio] 13.8 % 11.5 - 14.5 % [facility] Hematocrit (Bld) [Volume fraction] 52.6 % High 37.7 - 51.1 % [facility] Hexanoylglycine (U) [Moles/Vol] 17.2 g/dL 12.8 - 17.7 g/dL [facility] Immature granulocytes/100 WBC (Bld) 0.1 % [facility] Interpretation and review of laboratory results Abnormal [facility] Monocytes/100 WBC (Bld) 8.3 % [facility] Neurotensin (P) [Mass/Vol] 60.7 % [facility] Neutrophils (Bld) [#/Vol] 4.3 10*3/uL [facility] Nucleated RBC/100 WBC (Bld) [Ratio] 0.0 % 0.0 - 1.0 % [facility] Platelets (Bld) [#/Vol] 263 10*3/uL [facility] RBC (Bld) [#/Vol] 5.93 10*6/uL High [facility] WBC (Bld) [#/Vol] 7.1 10*3/uL [facility] HEPATIC FUNCTION PANELon Albumin [Mass/Vol] 4.5 g/dL Normal 3.5-5.0 [facility] Comment on above: Performed By: #### 4 [id number], 52274247, [id number], [id number] #### HO GUEVARA (2012) [facility] [address] [place] [address] ALK PHOS 204 U/L High 24-126 [facility] Comment on above: Performed By: #### 4 6376371, [id number], [id number], [id number] #### HO GUEVARA (2012) [facility] [address] [place] [address] ALT [Catalytic activity/Vol] 71 U/L High 4-50 [facility] Comment on above: Performed By: #### 4 7057240, 27963479, [id number], [id number] #### HO GUEVARA (2012) [facility] [address] [place] [address] AST [Catalytic activity/Vol] 62 U/L High 3-55 [facility] Comment on above: Performed By: #### 4 0579236, 32922446, [id number], [id number] #### HO GUEVARA (2012) [facility] [address] [place] [address] Bilirubin [Mass/Vol] 1.3 mg/dL Normal 0.2-1.6 [facility] Comment on above: Performed By: #### 4 9032476, 40082572, [id number], [id number] #### HO GUEVARA (2012) [facility] [address] [place] [address] Bilirubin.indirect [Mass/Vol] 0.6 mg/dL High <=0.5 [facility] Comment on above: Performed By: #### 4 2230195, 05629895, [id number], [id number] #### HO GUEVARA (2012) [facility] [address] [place] [address] Protein [Mass/Vol] 9.0 g/dL High 6.3-8.2 [facility] Comment on above: Performed By: #### 4 8331524, 65324741, [id number], [id number] #### HO GUEVARA (2012) [facility] [address] [place] [address] Hepatic function panelon Albumin (Syn fld) [Mass/Vol] 4.5 g/dL 3.5 - 5.0 g/dL [facility] Aldosterone (U) [Mass/Vol] 204 U/L High 24 - 126 U/L [facility] ALT [Catalytic activity/Vol] 71 U/L High 4 - 50 U/L [facility] AST [Catalytic activity/Vol] 62 U/L High 3 - 55 U/L [facility] Bilirubin [Mass/Vol] 1.3 mg/dL 0.2 - 1 .6 mg/dL [facility] Bilirubin.conjugated [Mass/Vol] 0.6 mg/dL High NINF - 0.5 mg/dL [facility] Interpretation and review of laboratory results Abnormal [facility] Protein [Mass/Vol] 9.0 g/dL High 6.3 - 8.2 g/dL [facility] Wound culture (includes gram stain)Ordered By: Daphne Rincon on 11-25-2023 Bacteria identified Cx Nom (Wound) 4+ Staphylococcus pseudointermedius Abnormal [facility] Bacteria identified Cx Nom (Wound) 4+ Staphylococcus sciuri Abnormal [facility] Wound culture with gram stai non 11-25-2023 Bacteria identified Cx Nom (Wound) 4+ Staphylococcus pseudointermedius Abnormal [facility] Comment on above: Susceptibility testi ng not performed on this isolate. Refer to susceptibilities reported from same or similar culture source within previous 72 hours. Bacteria identified Cx Nom (Wound) 4+ Staphylococcus sciuri Abnormal [facility] Comment on above: Susceptibility testi ng not performed on this isolate. Refer to susceptibilities reported from same or similar culture source within previous 72 hours. BASIC METABOLIC PANELon 10-31 Anion gap [Moles/Vol] 6 mmol/L Low 8-12 [facility] Comment on above: Performed By: #### 4 [id number], [id number] #### [address] Calcium [Mass/Vol] 8.5 mg/dL Normal 8.4-10.4 [facility] Comment on above: Performed By: #### 4 8060108, [id number] #### [address] Chloride [Moles/Vol] 101 mmol/L Normal 96-109 [facility] Comment on above: Performed By: #### 4 [id number], [id number] #### [address] [address] CO2 [Moles/Vol] 30 mmol/L Normal 22-30 [facility] Comment on above: Performed By: #### 4 [id number], [id number] #### [address] Creatinine [Mass/Vol] 0.75 mg/dL Normal 0.66-1.25 [facility] Comment on above: Performed By: #### 4 [id number], [id number] #### [place] [address] [place] GLOMERULAR FILTRATION RATE ML/MIN/1.73 SQ M.PREDICTED 108.6 mL/min/1.73m*2 Normal >=60.0 [facility] Comment on above: Result [...] Kidney Int Suppl.2013;3:1-150 Performed By: #### 4 [id number], [id number] #### [address] Glucose [Mass/Vol] 99 mg/dL Normal 65-100 [facility] [employer] [facility] Comment on above: Performed By: #### 4 [id number], [id number] #### [address]ACQUELINE [facility] [address] Sodium [Moles/Vol] 137 mmol/L Normal 135-147 [facility] Comment on above: Performed By: #### 4 [id number], [id number] #### [address] [facility] [address] Urea nitrogen [Mass/Vol] 13 mg/dL Normal 8-26 [facility] Comment on above: Performed By: #### 4 [id number], [id number] #### JACQUELINE [facility] [address] Bacteria identified Cx Nom ( Bld)Ordered By: Jenelle Mahoney on 11-24-2023 Interpretation and review of laboratory results Abnormal Jacqueline [facility] Work Phone: Microscopic observation Gram stain Nom (Unsp spec) Positive Abnormal [facility] Work Phone: Comment on above: Growth in 1 bottle o f 2 cultures drawn [facility] Work Phone: Basic metabolic panelon 10-31 Anion gap [Moles/Vol] 6 mmol/L Low 8 - 12 mmol/L [facility] Calcium [Mass/Vol] 8.5 mg/dL 8.4 - 10. 4 mg/dL [facility] Calcium hydrogen phosphate dihydrate crystals LM Ql (Urine sed) 13 mg/dL 8 - 26 mg/dL [facility] Chloride [Moles/Vol] 101 mmol/L 96 - 10 9 mmol/L [facility] CO2 (BldMV) [Moles/Vol] 30 mmol/L 22 - 30 mmol/L [facility] Creatinine [Mass/Vol] 0.75 mg/dL 0.66 - 1.25 mg/dL [facility] GFR/1.73 sq M.predicted among non-blacks MDRD (S/P/Bld) [Vol rate/Area] 108.6 mL/min/{1.73_m2} - PINF [facility] Comment on above: eGFR [...] [Mass/Vol] 99 mg/dL 65 - 100 mg/dL [facility] Interpretation and review of laboratory results Abnormal [facility] Potassium [Moles/Vol] 3.5 mmol/L Low 3.6 - 5.1 mmol/L [facility] Sodium [Moles/Vol] 137 mmol/L 135 - 147 mmol/L [facility] Blood culture x2 (Includes g soo stain)Ordered By: Jenelle Mahoney on 11-24-2023 Bacteria identified Cx Nom (Bld) Negative Abnormal [facility] Work Phone: Comment on above: Growth in 1 bottle o f 2 cultures drawn PROBABLE CONTAMINANT If Physician requests additional work-up contact Microbiology Lab at ext. [phone] within 5 days. CBC AND DIFFERENTIALon 11-23 ABSOLUTE BASOPHIL 0.0 x10*3/uL Normal 0.0-0.1 [facility] Comment on above: Performed By: #### 4 [id number], [id number], [id number], [id number] #### HO GUEVARA (2012) [facility] [address] [place] [address] ABSOLUTE EOSINOPHIL 0.2 x10*3/uL Normal 0.1-0.3 [facility] Comment on above: Performed By: #### 4 [id number], [id number], [id number], [id number] #### HO GUEVARA (2012) [facility] [address] [place] [address] ABSOLUTE IMMATURE GRANULOCYTES 0.0 x10*3/uL Normal 0.0-0.1 [facility] Comment on above: Performed By: #### 4 [id number], [id number], [id number], [id number] #### HO GUEVARA (2012) [facility] [address] [place] [address] ABSOLUTE LYMPH 2.1 x10*3/uL Normal 1.2-3.3 [facility] Comment on above: Performed By: #### 4 [id number], [id number], [id number], [id number] #### HO GUEVARA (2012) [facility] [address] [place] [address] ABSOLUTE MONO 0.6 x10*3/uL Normal 0.2-0.6 [facility] Comment on above: Performed By: #### 4 [id number], [id number], [id number], [id number] #### HO GUEVARA (2012) [facility] [address] [place] [address] ABSOLUTE NEUTROPHIL 4.4 x10*3/uL Normal 2.4-6.6 [facility] Comment on above: Performed By: #### 4 [id number], [id number], [id number], [id number] #### HO GUEVARA (2012) [facility] [address] [place] [address] Basophils/100 WBC (Bld) 0.4 % Normal [facility] Comment on above: Performed By: #### 4 [id number], [id number], [id number], [id number] #### HO GUEVARA (2012) [facility] [address] [place] [address] Eosinophils/100 WBC (Bld) 3.2 % Normal [facility] Comment on above: Performed By: #### 4 [id number], [id number], [id number], [id number] #### HO GUEVARA (2012) [facility] [address] [place] [address] Erythrocyte distribution width (RBC) [Ratio] 14.0 % Normal 11.5-14.5 [facility] Comment on above: Performed By: #### 4 [id number], [id number], [id number], [id number] #### HO GUEVARA (2012) [facility] [address] [place] [address] Hematocrit (Bld) [Volume fraction] 50.6 % Normal 37.7-51.1 [facility] Comment on above: Performed By: #### 4 [id number], [id number], [id number], [id number] #### HO GUEVARA (2012) [facility] [address] [place] [address] Hemoglobin (Bld) [Mass/Vol] 16.8 g/dL Normal 12.8-17.7 [facility] Comment on above: Performed By: #### 4 5785404, [id number], [id number], [id number] #### HO GUEVARA (2012) [facility] [address] [place] [address] Immature granulocytes/100 WBC (Bld) 0.3 % Normal [facility] Comment on above: Performed By: #### 4 [id number], 61790077, [id number], [id number] #### HO GUEVARA (2012) [facility] [address] [place] [address] Lymphocytes/100 WBC (Bld) 28.5 % Normal [facility] Comment on above: Performed By: #### 4 [id number], [id number], [id number], [id number] #### HO GUEVARA (2012) [facility] [address] [place] [address] MCH (RBC) [Entitic mass] 28.9 pg Normal 27.0-34.2 [facility] Comment on above: Performed By: #### 4 [id number], [id number], [id number], [id number] #### HO GUEVARA (2012) [facility] [address] [place] [address] MCHC (RBC) [Mass/Vol] 33.2 g/dL Normal 31.4-36.2 [facility] Comment on above: Performed By: #### 4 [id number], [id number], [id number], [id number] #### HO GUEVARA (2012) [facility] [address] [place] [address] MCV (RBC) [Entitic vol] 86.9 fL Normal 80.6-99 [facility] Comment on above: Performed By: #### 4 [id number], [id number], [id number], [id number] #### HO GUEVARA (2012) [facility] [address] [place] [address] Monocytes/100 WBC (Bld) 8.5 % Normal [facility] Comment on above: Performed By: #### 4 [id number], [id number], [id number], [id number] #### HO GUEVARA (2012) [facility] [address] [place] [address] Neutrophils/100 WBC (Bld) 59.1 % Normal [facility] Comment on above: Performed By: #### 4 [id number], [id number], [id number], [id number] #### HO GUEVARA (2012) [facility] [address] [place] [address] NUCLEATED RED BLOOD CELLS AUTO 0.0 % Normal 0.0-1.0 [facility] Comment on above: Performed By: #### 4 [id number], [id number], [id number], [id number] #### HO GUEVARA (2012) [facility] [address] [place] [address] PLATELET COUNT 266 x10*3/uL Normal 150-400 [facility] Comment on above: Performed By: #### 4 3253274, [id number], [id number], [id number] #### HO GUEVARA (2012) [facility] [address] [place] [address] RED BLOOD CELL COUNT 5.82 x10*6/uL High 3.70-5.70 [facility][note 3[facility] Comment on above: Performed By: #### 4 [id number], 76774575, [id number], [id number] #### HO GUEVARA (2012) [facility] [address] [place] [address] WHITE BLOOD CELLS 7.4 x10*3/uL Normal 4.3-10.3 [facility] Comment on above: Performed By: #### 4 [id number], [id number], [id number], [id number] #### HO GUEVARA (2012) [facility] [address] [place] [address] CBC with Differentialon 10-31 Absolute Immature Granulocytes 0.0 [facility] Age [Time] 86.9 fL 80.6 - 99 fL [facility] Age [Time] 28.9 pg 27.0 - 34.2 pg [facility] Age [Time] 33.2 g/dL 31.4 - 36.2 g/dL [facility] B. burgdorferi IgM IB Ql (CSF) 28.5 % [facility] Basophils (Bld) [#/Vol] 0.0 10*3/uL [facility] Basophils/100 WBC (Body fld) 0.4 % [facility] Eosinophils (Bld) [#/Vol] 2.1 10*3/uL [facility] Eosinophils (Bld) [#/Vol] 0.6 10*3/uL [facility] Eosinophils (Bld) [#/Vol] 0.2 10*3/uL [facility] Eosinophils/100 WBC (Bld) 3.2 % [facility] Erythrocyte distribution width (RBC) [Ratio] 14.0 % 11.5 - 14.5 % [facility] Hematocrit (Bld) [Volume fraction] 50.6 % 37.7 - 51.1 % [facility] Hexanoylglycine (U) [Moles/Vol] 16.8 g/dL 12.8 - 17.7 g/dL [facility] Immature granulocytes/100 WBC (Bld) 0.3 % [facility] Interpretation and review of laboratory results Abnormal [facility] Monocytes/100 WBC (Bld) 8.5 % [facility] Neurotensin (P) [Mass/Vol] 59.1 % [facility] Neutrophils (Bld) [#/Vol] 4.4 10*3/uL [facility] Nucleated RBC/100 WBC (Bld) [Ratio] 0.0 % 0.0 - 1.0 % [facility] Platelets (Bld) [#/Vol] 266 10*3/uL [facility] RBC (Bld) [#/Vol] 5.82 10*6/uL High [facility] WBC (Bld) [#/Vol] 7.4 10*3/uL [facility] POTASSIUMon 11-24-2023 Potassium [Moles/Vol] 3.5 mmol/L Low 3.6-5.1 [facility] Comment on above: Performed By: #### 4 [id number], [id number] #### JACQUELINE [address] Potassium Levelon 11-24-2023 Interpretation and review of laboratory results Abnormal [facility] Potassium [Moles/Vol] 3.5 mmol/L Low 3.6 - 5.1 mmol/L [facility] US.doppler Lower extremity a rtery - [...] analysis. Staff Primary Care Physician: None Pcp Stripper Soft Plastic: Tamera Reina RVT Ordering Physician: Josias Coles DIRECTOR OF INSTRUCTION STALLION KEEPER Attending Physician: Lizbeth Wilson MD History/Risk Factors [...] 184 cm/s RIGHT Iliac Waveform: Triphasic RIGHT APPLICATIONS DEVELOPMENT CONSULTANT PSV (cm/s): 249 cm/s RIGHT APPLICATIONS DEVELOPMENT CONSULTANT Waveform: Triphasic RIGHT PFA PSV (cm/s): 65 [...] RIGHT Dist Pop Waveform: Triphasic RIGHT Prox HOUSING MANAGER PSV (cm/s): 41 cm/s RIGHT Prox HOUSING MANAGER Waveform: Triphasic RIGHT Mid HOUSING MANAGER PSV (cm/s): 113 cm/s RIGHT Mid HOUSING MANAGER Waveform: Triphasic RIGHT Dist HOUSING MANAGER PSV (cm/s): 75 cm/s RIGHT Dist HOUSING MANAGER Waveform: Triphasic RIGHT Prox FLACA PSV (cm/s): 77 cm/s RIGHT Prox FLACA Waveform: Biphasic RIGHT Mid FLACA PSV (cm/s): 16 cm/s RIGHT Mid FLACA Waveform: Monophasic RIGHT Dist FLACA PSV (cm/s): 28 cm/s RIGHT Dist FLACA Waveform: Monophasic LEFT Iliac PSV (cm/s): 173 cm/s LEFT Iliac Waveform: Triphasic LEFT APPLICATIONS DEVELOPMENT CONSULTANT PSV (cm/s): 172 cm/s LEFT APPLICATIONS DEVELOPMENT CONSULTANT Waveform: Triphasic LEFT PFA PSV (cm/s): 266 [...] LEFT Dist Pop Waveform: Triphasic LEFT Prox HOUSING MANAGER PSV (cm/s): 102 cm/s LEFT Prox HOUSING MANAGER Waveform: Triphasic LEFT Mid HOUSING MANAGER PSV (cm/s): 59 cm/s LEFT Mid HOUSING MANAGER Waveform: Triphasic LEFT Dist HOUSING MANAGER PSV (cm/s): 65 cm/s LEFT Dist HOUSING MANAGER Waveform: Triphasic LEFT Prox FLACA PSV (cm/s): 82 cm/s LEFT Prox FLACA Waveform: Biphasic LEFT Mid FALCA PSV (cm/s): 113 cm/s LEFT Mid FLACA [...] analysis. Staff Primary Care Physician: Dillon Pcp Stripper Soft Plastic: Tamera Reina RVT Ordering Physician: Josias Coles APRN STALLION KEEPER Attending Physician: Lizbeth Wilson MD History/Risk Factors [...] 184 cm/s RIGHT Iliac Waveform: Triphasic RIGHT APPLICATIONS DEVELOPMENT CONSULTANT PSV (cm/s): 249 cm/s RIGHT APPLICATIONS DEVELOPMENT CONSULTANT Waveform: Triphasic RIGHT PFA PSV (cm/s): 65 [...] RIGHT Dist Pop Waveform: Triphasic RIGHT Prox HOUSING MANAGER PSV (cm/s): 41 cm/s RIGHT Prox HOUSING MANAGER Waveform: Triphasic RIGHT Mid HOUSING MANAGER PSV (cm/s): 113 cm/s RIGHT Mid HOUSING MANAGER Waveform: Triphasic RIGHT Dist HOUSING MANAGER PSV (cm/s): 75 cm/s RIGHT Dist HOUSING MANAGER Waveform: Triphasic RIGHT Prox FLACA PSV (cm/s): 77 cm/s RIGHT Prox FLACA Waveform: Biphasic RIGHT Mid FLACA PSV (cm/s): 16 cm/s RIGHT Mid FLACA Waveform: Monophasic RIGHT Dist FLACA PSV (cm/s): 28 cm/s RIGHT Dist FLACA Waveform: Monophasic LEFT Iliac PSV (cm/s): 173 cm/s LEFT Iliac Waveform: Triphasic LEFT APPLICATIONS DEVELOPMENT CONSULTANT PSV (cm/s): 172 cm/s LEFT APPLICATIONS DEVELOPMENT CONSULTANT Waveform: Triphasic LEFT PFA PSV (cm/s): 266 [...] LEFT Dist Pop Waveform: Triphasic LEFT Prox HOUSING MANAGER PSV (cm/s): 102 cm/s LEFT Prox HOUSING MANAGER Waveform: Triphasic LEFT Mid HOUSING MANAGER PSV (cm/s): 59 cm/s LEFT Mid HOUSING MANAGER Waveform: Triphasic LEFT Dist HOUSING MANAGER PSV (cm/s): 65 cm/s LEFT Dist HOUSING MANAGER Waveform: Triphasic LEFT Prox FLACA PSV (cm/s): [...] : Triphasic LEFT Dorsalis Pedis : Monophasic [facility] Radiology Study observation (narrative) [facility] US.doppler Lower extremity a rtery - bilateralOrdered By: Montse Plasencia on 11-24-2023 [facility] BASIC METABOLIC PANELon 07-2 Anion gap [Moles/Vol] 5 mmol/L Low 8-12 [facility] Comment on above: Performed By: #### 4 [id number], [id number], [id number], [id number] #### HO GUEVARA (2012) [facility] [address] [place] [address] Calcium [Mass/Vol] 8.4 mg/dL Normal 8.4-10.4 [facility] Comment on above: Performed By: #### 4 [id number], [id number], [id number], [id number] #### HO GUEVARA (2012) [facility] [address] [place] [address] Chloride [Moles/Vol] 102 mmol/L Normal 96-109 [facility] Comment on above: Performed By: #### 4 [id number], 23289193, [id number], [id number] #### HO GUEVARA (2012) [facility] [address] [place] [address] CO2 [Moles/Vol] 30 mmol/L Normal 22-30 [facility] Comment on above: Performed By: #### 4 2348545, 07548848, [id number], [id number] #### HO GUEVARA (2012) [facility] [address] [place] [address] Creatinine [Mass/Vol] 0.75 mg/dL Normal 0.66-1.25 [facility] Comment on above: Performed By: #### 4 [id number], [id number], [id number], [id number] #### HO GUEVARA (2012) [facility] [address] [place] [address] GLOMERULAR FILTRATION RATE ML/MIN/1.73 SQ M.PREDICTED 108.6 mL/min/1.73m*2 Normal >=60.0 [facility] Comment on above: Result [...] Kidney Int Suppl.2013;3:1-150 Performed By: #### 4 [id number], [id number], [id number], [id number] #### HO GUEVARA (2012) [facility] [address] [place] [address] Glucose [Mass/Vol] 94 mg/dL Normal 65-100 [facility] Comment on above: Performed By: #### 4 [id number], [id number], [id number], [id number] #### HO GUEVARA (2012) [facility] [address] [place] [address] Potassium [Moles/Vol] 3.5 mmol/L Low 3.6-5.1 [facility] Comment on above: Performed By: #### 4 3403900, [id number], [id number], [id number] #### HO GUEVARA (2012) [facility] [address] [place] [address] Sodium [Moles/Vol] 137 mmol/L Normal 135-147 [facility] Comment on above: Performed By: #### 4 [id number], [id number], [id number], [id number] #### HO GUEVARA (2012) [facility] [address] [place] [address] Urea nitrogen [Mass/Vol] 11 mg/dL Normal 8-26 [facility] Comment on above: Performed By: #### 4 [id number], [id number], [id number], [id number] #### HO GUEVARA (2012) [facility] [address] [place] [address] Basic metabolic panel aka Ch em 8on 11-23-2023 Anion gap [Moles/Vol] 5 mmol/L Low 8 - 12 mmol/L [facility] Calcium [Mass/Vol] 8.4 mg/dL 8.4 - 10. 4 mg/dL [facility] Calcium hydrogen phosphate dihydrate crystals LM Ql (Urine sed) 11 mg/dL 8 - 26 mg/dL [facility] Chloride [Moles/Vol] 102 mmol/L 96 - 10 9 mmol/L [facility] CO2 (BldMV) [Moles/Vol] 30 mmol/L 22 - 30 mmol/L [facility] Creatinine [Mass/Vol] 0.75 mg/dL 0.66 - 1.25 mg/dL [facility] GFR/1.73 sq M.predicted among non-blacks MDRD (S/P/Bld) [Vol rate/Area] 108.6 mL/min/{1.73_m2} - PINF [facility] Comment on above: eGFR [...] [Mass/Vol] 94 mg/dL 65 - 100 mg/dL [facility] Interpretation and review of laboratory results Abnormal [facility] Potassium [Moles/Vol] 3.5 mmol/L Low 3.6 - 5.1 mmol/L [facility] Sodium [Moles/Vol] 137 mmol/L 135 - 147 mmol/L [facility] CBCon 11-23-2023 Age [Time] 89.2 fL 80.6 - 99 fL [facility] Age [Time] 29.2 pg 27.0 - 34.2 pg [facility] Age [Time] 32.7 g/dL 31.4 - 36.2 g/dL [facility] Erythrocyte distribution width (RBC) [Ratio] 14.4 % 11.5 - 14.5 % [facility] Hematocrit (Bld) [Volume fraction] 49.8 % 37.7 - 51.1 % [facility] Hexanoylglycine (U) [Moles/Vol] 16.3 g/dL 12.8 - 17.7 g/dL [facility] Interpretation and review of laboratory results Normal [facility] Platelets (Bld) [#/Vol] 259 10*3/uL [facility] RBC (Bld) [#/Vol] 5.58 10*6/uL [facility] WBC (Bld) [#/Vol] 8.1 10*3/uL [facility] Erythrocyte distribution width (RBC) [Ratio] 14.4 % Normal 11.5-14.5 [facility] Comment on above: Performed By: #### 4 [id number], [id number], [id number], [id number] #### HO GUEVARA (2012) [facility] [address] [place] [address] Hematocrit (Bld) [Volume fraction] 49.8 % Normal 37.7-51.1 [facility] Comment on above: Performed By: #### 4 [id number], [id number], [id number], [id number] #### HO GUEVARA (2012) [facility] [address] [place] [address] Hemoglobin (Bld) [Mass/Vol] 16.3 g/dL Normal 12.8-17.7 [facility] Comment on above: Performed By: #### 4 7440524, 48196479, [id number], [id number] #### HO GUEVARA (2012) [facility] [address] [place] [address] MCH (RBC) [Entitic mass] 29.2 pg Normal 27.0-34.2 [facility] Comment on above: Performed By: #### 4 0184794, 31781188, [id number], [id number] #### HO GUEVARA (2012) [facility] [address] [place] [address] MCHC (RBC) [Mass/Vol] 32.7 g/dL Normal 31.4-36.2 [facility] Comment on above: Performed By: #### 4 5140837, [id number], [id number], [id number] #### HO GUEVARA (2012) [facility] [address] [place] [address] MCV (RBC) [Entitic vol] 89.2 fL Normal 80.6-99 [facility] Comment on above: Performed By: #### 4 1170540, 32493070, [id number], [id number] #### HO GUEVARA (2012) [facility] [address] [facility] [address] PLATELET COUNT 259 x10*3/uL Normal 150-400 [facility] Comment on above: Performed By: #### 4 [id number], [id number], [id number], [id number] #### HO GUEVARA (2012) [facility] [address] [facility] [address] RED BLOOD CELL COUNT 5.58 x10*6/uL Normal 3.70-5.70 [facility] Comment on above: Performed By: #### 4 4802198, 25963658, [id number], [id number] #### HO GUEVARA (2012) [facility] [address] [place] [address] WHITE BLOOD CELLS 8.1 x10*3/uL Normal 4.3-10.3 [facility] Comment on above: Performed By: #### 4 4471756, [id number], [id number], [id number] #### HO GUEVARA (2012) [facility] [address] [place] [address] Cardiac echo study Procedure on 11-23-2023 1. [...] difficult with Definity Patient Status: OBV Site: [facility] Current Location: [facility] Exam Type: ECHOCARDIOGRAM WITH CONTRAST Study Info Indications - CHF Procedure(s) A complete two-dimensional, color flow and Doppler transthoracic echocardiogram was performed with Definity contrast to opacify the left ventricle and to improve the delineation of the left ventricle endocardial borders. Staff Primary Care Provider: None Pcp Ordering Provider: Canelo Cummins MD Stripper Soft Plastic: Parrish Hanna RD, T History/Risk Factors Tobacco [...] mmHg MV VTI 29 cm MV Decel Cobb 325 cm/s2 MV PHT 83 ms MV [...] difficult with Definity Patient Status: V Site: [facility] [place] [facility] [place] Type: ECHOCARDIOGRAM WITH CONTRAST Study Info Indications - CHF Procedure(s) A complete two-dimensional, color flow and Doppler transthoracic echocardiogram was performed with Definity contrast to opacify the left ventricle and to improve the delineation of the left ventricle endocardial borders. Staff Primary Care Provider: None Pcp Ordering Provider: Canelo Cummins MD Stripper Soft Plastic: Parrish Hanna [facility], RVT History/Risk Factors Tobacco Use: Current [...] mmHg MV VTI 29 cm MV Decel Cobb 325 cm/s2 MV PHT 83 ms MV [...] % LV Fractional (more content not included)... [facility] Radiology Study observation (narrative) [facility] Cardiac echo study Procedure Ordered By: [place]o Plaza on 11-23-2023 [facility] Work Phone: PROCALCITONINon 11-23-2023 PROCALCITONIN 0.075 ng/mL Normal <=0.078 [facility] Comment on above: Result Comment: Proc alcitonin [...] Antibiotics strongly encouraged. Performed By: #### 4 [id number], [id number], [id number], [id number] #### HO GUEVARA (2013) [facility] [address] [place] [address] Procalcitoninon 11-23-2023 Interpretation and review of laboratory results Normal Jacqueline [facility] Procainamide [Mass/Vol] 0.075 ng/mL NINF - 0.078 ng/mL [facility] Comment on above: Procalcitonin [...] infection very likely. Antibiotics strongly encouraged. Jacqueline Lookwider [facility] US.doppler Lower extremity v ein - [...] performed. Staff Primary Care Physician: None Pcp Stripper Soft Plastic: Libertad Connelly RDCS, RVT Ordering Physician: Shawna Sotelo APRN COUNTER POCKET TRIMMER Attending Physician: Lizbeth Wilson MD History/Risk Factors [...] performed. Staff Primary Care Physician: None Pcp Stripper Soft Plastic: Libertad Connelly RDCS, RVT Ordering Physician: Shawna Sotelo APRN COUNTER POCKET TRIMMER Attending Physician: Lizbeth Wilson MD History/Risk Factors [...] Lizbeth Don DO on 11/23/2023 09:31 AM [facility] [employer] BASIC METABOLIC PANELon 07-2 Anion gap [Moles/Vol] 8 mmol/L Normal 8-12 [facility] Comment on above: Performed By: #### 4 [id number], [id number], [id number], [id number] #### HO GUEVARA (2012) [facility] [address] [place] [address] Calcium [Mass/Vol] 8.5 mg/dL Normal 8.4-10.4 [facility] Comment on above: Performed By: #### 4 [id number], [id number], [id number], [id number] #### HO GUEVARA (2012) [facility] [address] [place] [address] Chloride [Moles/Vol] 103 mmol/L Normal 96-109 [facility] Comment on above: Performed By: #### 4 [id number], [id number], [id number], [id number] #### HO GUEVARA (2012) [facility] [address] [place] [address] CO2 [Moles/Vol] 27 mmol/L Normal 22-30 [facility] Comment on above: Performed By: #### 4 [id number], [id number], [id number], [id number] #### HO GUEVARA (2012) [facility] [address] [place] [address] Creatinine [Mass/Vol] 0.66 mg/dL Normal 0.66-1.25 [facility] Comment on above: Performed By: #### 4 [id number], [id number], [id number], [id number] #### HO GUEVARA (2012) [facility] [address] [place] [address] GLOMERULAR FILTRATION RATE ML/MIN/1.73 SQ M.PREDICTED 112.9 mL/min/1.73m*2 Normal >=60.0 [facility] [employer] [facility] Comment on above: Result Comment: eGFR calculation [...] Kidney Int Suppl.2013;3:1-150 Performed By: #### 4 [id number], [id number], [id number], [id number] #### HO GUEVARA (2012) [facility] [address] [place] [address] Glucose [Mass/Vol] 168 mg/dL High 65-100 [facility] Comment on above: Performed By: #### 4 [id number], [id number], [id number], [id number] #### HO GUEVARA (2012) [facility] [address] [place] [address] Potassium [Moles/Vol] 3.5 mmol/L Low 3.6-5.1 [facility] Comment on above: Performed By: #### 4 [id number], [id number], [id number], [id number] #### HO GUEVARA (2012) [facility] [address] [place] [address] Sodium [Moles/Vol] 138 mmol/L Normal 135-147 [facility] Comment on above: Performed By: #### 4 [id number], [id number], [id number], [id number] #### HO GUEVARA (2012) [facility] [address] [place] [address] Urea nitrogen [Mass/Vol] 9 mg/dL Normal 8-26 [facility] Comment on above: Performed By: #### 4 [id number], [id number], [id number], [id number] #### HO GUEVARA (2012) [facility] [address] [place] [address] BLOOD CULTURE WITH GRAM STAI Non 11-22-2023 BLOOD CULTURE WITH GRAM STAIN BLOOD CULTURE GROWTH No Growth at 120 Hrs Normal [facility] Comment on above: Order Comment: Each culture must be from a different peripheral site. Do not draw from a central venous access device unless ordered by a physician. Performed By: #### 4 [id number], [id number], [id number], [id number] #### HO GUEVARA (2012) [facility] [address] [place] [address] BLOOD CULTURE WITH GRAM STAIN BLOOD CULTURE GROWTH 206COAGULASE NEGATIVE STAPH Coagulase negative Staph Growth in 1 bottle of 2 cultures drawn PROBABLE CONTAMINANT If Physician requests additional work-up contact Microbiology Lab at ext. [phone] within 5 days. GRAM STAIN OF CULTURE Gram positive cocci in clusters Growth in 1 bottle of 2 cultures drawn Normal [facility] Comment on above: Order Comment: Each culture must be from a different peripheral site. Do not draw from a central venous access device unless ordered by a physician. Performed By: #### 4 [id number] #### JACQUELINE [address] BNPon 11-22-2023 Interpretation and review of laboratory results Abnormal [facility] Nucleated RBC/100 WBC (Bld) [Ratio] 315 pg/mL High NINF - 299 pg/mL [facility] Comment on above: [place]: Result In determinate Consider other causes of NT-proBNP elevation. BRAIN NATRIURETIC PEPTIDEon 11-22-2023 Natriuretic peptide B (Bld) [Mass/Vol] 315 pg/mL High <=299 [facility] Comment on above: Result Comment: [place]: Result Indeterminate Consider other causes of NT-proBNP elevation. Performed By: #### 4 [id number], [id number], [id number], [id number] #### HO GUEVARA (2013) [facility] [address] [place] [address] Basic metabolic panel aka Ch em 811-22-2023 Anion gap [Moles/Vol] 8 mmol/L 8 - 12 mmol/L [facility] [employer] [facility] Calcium [Mass/Vol] 8.5 mg/dL 8.4 - 10. 4 mg/dL [facility] Calcium hydrogen phosphate dihydrate crystals LM Ql (Urine sed) 9 mg/dL 8 - 26 mg/dL [facility] Chloride [Moles/Vol] 103 mmol/L 96 - 10 9 mmol/L [facility] CO2 (BldMV) [Moles/Vol] 27 mmol/L 22 - 30 mmol/L [facility] [facility] Creatinine [Mass/Vol] 0.66 mg/dL 0.66 - 1.25 mg/dL [facility] GFR/1.73 sq M.predicted among non-blacks MDRD (S/P/Bld) [Vol rate/Area] 112.9 mL/min/{1.73_m2} - PINF [facility] Comment on above: eGFR [...] 168 mg/dL High 65 - 100 mg/dL [facility] Interpretation and review of laboratory results Abnormal [facility] [employer] Potassium [Moles/Vol] 3.5 mmol/L Low 3.6 - 5.1 mmol/L [facility] [employer] [facility] Sodium [Moles/Vol] 138 mmol/L 135 - 147 mmol/L [facility] CBC AND DIFFERENTIALon 11-21 ABSOLUTE BASOPHIL 0.0 x10*3/uL Normal 0.0-0.1 [facility] Comment on above: Performed By: #### 4 [id number], [id number], [id number], [id number] #### HO GUEVARA (2012) [facility] [address] [place] [address] ABSOLUTE EOSINOPHIL 0.2 x10*3/uL Normal 0.1-0.3 [facility] Comment on above: Performed By: #### 4 [id number], [id number], [id number], [id number] #### HO GUEVARA (2012) [facility] [address] [place] [address] ABSOLUTE IMMATURE GRANULOCYTES 0.0 x10*3/uL Normal 0.0-0.1 [facility] Comment on above: Performed By: #### 4 [id number], [id number], [id number], [id number] #### HO GUEVARA (2012) [facility] [address] [place] [address] ABSOLUTE LYMPH 1.7 x10*3/uL Normal 1.2-3.3 [facility] Comment on above: Performed By: #### 4 [id number], [id number], [id number], [id number] #### HO GUEVARA (2012) [facility] [address] [place] [address] ABSOLUTE MONO 0.6 x10*3/uL Normal 0.2-0.6 [facility] Comment on above: Performed By: #### 4 [id number], [id number], [id number], [id number] #### [place] GUE[place] (2012) [facility] [address] [place] [address] ABSOLUTE NEUTROPHIL 5.4 x10*3/uL Normal 2.4-6.6 [facility] Comment on above: Performed By: #### 4 [id number], [id number], [id number], [id number] #### HO GUEVARA (2012) [facility] [address] [place] [address] Basophils/100 WBC (Bld) 0.4 % Normal [facility] Comment on above: Performed By: #### 4 [id number], [id number], [id number], [id number] #### HO GUEVARA (2012) [facility] [address] [place] [address] Eosinophils/100 WBC (Bld) 2.7 % Normal [facility] Comment on above: Performed By: #### 4 [id number], [id number], [id number], [id number] #### HO GUEVARA (2012) [facility] [address] [facility] [address] Erythrocyte distribution width (RBC) [Ratio] 14.2 % Normal 11.5-14.5 [facility] Comment on above: Performed By: #### 4 [id number], [id number], [id number], [id number] #### HO GUEVARA (2012) [facility] [address] [place] [address] Hematocrit (Bld) [Volume fraction] 53.1 % High 37.7-51.1 [facility] Comment on above: Performed By: #### 4 [id number], [id number], [id number], [id number] #### HO GUEVARA (2012) [facility] [address] [place] [address] Hemoglobin (Bld) [Mass/Vol] 16.9 g/dL Normal 12.8-17.7 [facility] Comment on above: Performed By: #### 4 [id number], [id number], [id number], [id number] #### HO GUEVARA (2012) [facility] [address] [place] [address] Immature granulocytes/100 WBC (Bld) 0.1 % Normal [facility] Comment on above: Performed By: #### 4 [id number], [id number], [id number], [id number] #### HO GUEVARA (2012) [facility] [address] [place] [address] Lymphocytes/100 WBC (Bld) 20.8 % Normal [facility] Comment on above: Performed By: #### 4 [id number], [id number], [id number], [id number] #### HO GUEVARA (2012) [facility] [address] [facility] [place] [address] MCH (RBC) [Entitic mass] 28.5 pg Normal 27.0-34.2 [facility] Comment on above: Performed By: #### 4 [id number], [id number], [id number], [id number] #### HO GUEVARA (2012) [facility] [address] [place] [address] MCHC (RBC) [Mass/Vol] 31.8 g/dL Normal 31.4-36.2 [facility] Comment on above: Performed By: #### 4 [id number], [id number], [id number], [id number] #### HO GUEVARA (2012) [facility] [address] [place] [address] MCV (RBC) [Entitic vol] 89.7 fL Normal 80.6-99 [facility] Comment on above: Performed By: #### 4 [id number], [id number], [id number], [id number] #### HO GUEVARA (2012) [facility] [address] [place] [address] Monocytes/100 WBC (Bld) 7.3 % Normal [facility] Comment on above: Performed By: #### 4 [id number], [id number], [id number], [id number] #### HO GUEVARA (2012) [facility] [address] [place] [address] Neutrophils/100 WBC (Bld) 68.7 % Normal [facility] Comment on above: Performed By: #### 4 [id number], [id number], [id number], [id number] #### HO GUEVARA (2012) [facility] [address] [place] [address] PLATELET COUNT 279 x10*3/uL Normal 150-400 [facility] Comment on above: Performed By: #### 4 [id number], [id number], [id number], [id number] #### HO GUEVARA (2012) [facility] [address] [place] [address] RED BLOOD CELL COUNT 5.92 x10*6/uL High 3.70-5.70 [facility] Comment on above: Performed By: #### 4 [id number], [id number], [id number], [id number] #### HO GUEVARA (2012) [facility] [address] [place] [address] WHITE BLOOD CELLS 7.9 x10*3/uL Normal 4.3-10.3 [facility] Comment on above: Performed By: #### 4 [id number], [id number], [id number], [id number] #### HO GUEVARA (2013) [facility] [address] [place] [address] CBC with DifferentialOrdered By: Background Lab on 11-22-2023 Absolute Immature Granulocytes 0.0 [facility] Age [Time] 89.7 fL 80.6 - 99 fL [facility] Age [Time] 28.5 pg 27.0 - 34.2 pg [facility] Age [Time] 31.8 g/dL 31.4 - 36.2 g/dL [facility] B. burgdorferi IgM IB Ql (CSF) 20.8 % [facility] Basophils (Bld) [#/Vol] 0.0 10*3/uL [facility] Basophils/100 WBC (Body fld) 0.4 % [facility] Eosinophils (Bld) [#/Vol] 1.7 10*3/uL [facility] Eosinophils (Bld) [#/Vol] 0.6 10*3/uL [facility] Eosinophils (Bld) [#/Vol] 0.2 10*3/uL [facility] Eosinophils/100 WBC (Bld) 2.7 % [facility] Erythrocyte distribution width (RBC) [Ratio] 14.2 % 11.5 - 14.5 % [facility] Hematocrit (Bld) [Volume fraction] 53.1 % High 37.7 - 51.1 % [facility] Hexanoylglycine (U) [Moles/Vol] 16.9 g/dL 12.8 - 17.7 g/dL [facility] Immature granulocytes/100 WBC (Bld) 0.1 % [facility] Interpretation and review of laboratory results Abnormal [facility] Monocytes/100 WBC (Bld) 7.3 % [facility] Neurotensin (P) [Mass/Vol] 68.7 % [facility] Neutrophils (Bld) [#/Vol] 5.4 10*3/uL [facility] Platelets (Bld) [#/Vol] 279 10*3/uL [facility] RBC (Bld) [#/Vol] 5.92 10*6/uL [facility] WBC (Bld) [#/Vol] 7.9 10*3/uL [facility] EKG 12 leadon 11-22-2023 [facility] pt Test Date: 2023-11-22 Pat Name: AZALIA MATTHEW Department: Room: Gender: M 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 Electronically Signed On 11-22-2023 14:06:51 EDT by Lizbeth KELLER [facility] MAGNESIUMon 11-22-2023 Magnesium [Mass/Vol] 2.0 mg/dL Normal 1.6-2.3 [facility] Comment on above: Performed By: #### 4 [id number], [id number], [id number], [id number] #### HO GUEVARA (2012) [facility] [address] [place] [address] Magnesiumon 11-22-2023 Magnesium [Mass/Vol] 2.0 mg/dL 1.6 - 2 .3 mg/dL [facility] Magnesium [Mass/Vol]on 11-21 Interpretation and review of laboratory results Normal [facility] No Panel Informationon 11-21 [facility] TROPONIN I SERIESon 11-22-19 24 Troponin I.cardiac [Mass/Vol] ng/mL Normal <=0.033 [facility] Comment on above: Result Comment: Nega tive: No detectable troponin-I. Performed By: #### 4 [id number], [id number], [id number], [id number] #### HO GUEVARA (2012) [facility] [address] [place] [address] Troponin I - Series (X 3)on 11-22-2023 Interpretation and review of laboratory results Normal [facility] Troponin I.cardiac [Mass/Vol] ng/mL NINF - 0.033 ng/mL [facility] Comment on above: Negative: No detectable troponin-I. US.doppler Lower extremity v ein - bilateralon 11-22-2023 Radiology Study observation (narrative) [facility] WOUND CULTURE WITH GRAM [...] STAIN OF CULTURE No organisms seen Normal [facility] Comment on above: Performed By: #### 4 [id number] #### [facility] [address] WOUND CULTURE WITH GRAM STAIN WOUND [...] F ceFAZolin Susc Islt S F Susceptible [facility] Comment on above: Performed By: #### 4 [id number], [id number], [id number], [id number] #### HO GUEVARA (2013) [facility] [address] [place] [address] XR CHEST 1 VIEWon 11-22-2023 XR CHEST [...] breath Best possible - pt obese Normal [facility]DSo[facility] XR Chest Single viewon 11-21 1. CHF/fluid overload. [facility] EXAM: XR CHEST 1 VIE W, 11/22/2023 [...] Other comments: None. IMPRESSION: 1. CHF/fluid overload. [facility] Radiology Study observation (narrative) [facility] XR Chest Single viewOrdered By: Robert Sheehan on 11-22-2023 [facility] [employer] Work Phone: Absolute immature granulocyt e countOrdered By: FRANKO WAKEFIELD on 05-21-2022 Immature granulocytes (Bld) [#/Vol] 0.02 10*3/uL 0.00-0.10 [facility] Absolute lymphocyte countOrd ered By: FRANKO WAKEFIELD on 05-21-2022 Lymphocytes Auto (Unsp spec) [#/Vol] 1.30 10*3/uL 1.30-2.90 [facility] Appearance urOrdered By: TRIP DIMAS on 05-21-2022 Appearance (U) Clear Clear [facility] Basic Metabolic Panelon 05-03 Anion gap [Moles/Vol] 12.5 mmol/L Normal 8.0-16.0 [facility] Comment on above: Performed By: #### B MP #### [facility] [address] [place] [address] Calcium [Mass/Vol] 9.5 mg/dL Normal 8.2-10.0 [facility] Comment on above: Performed By: #### B MP #### [facility] [address] [place] [address] Chloride [Moles/Vol] 102 mmol/L Normal 94-110 [facility] Comment on above: Performed By: #### B MP #### [facility] [address] [place] [address] CO2 [Moles/Vol] 29 mmol/L Normal 21-34 [facility] Comment on above: Performed By: #### B MP #### [facility] [address] [place] [address] Creatinine [Mass/Vol] 0.66 mg/dL Normal 0.50-1.17 [facility] Comment on above: Performed By: #### B MP #### [address] [place] [address] EGFR Other Races >60 Normal >60 [facility] Comment on above: Performed By: #### B MP #### [facility] [address] [place] [address] GFR/1.73 sq M.predicted among blacks MDRD (S/P/Bld) [Vol rate/Area] mL/min/{1.73_m2} Normal >60 [facility] Comment on above: Result Comment: Chief Unit Forester carlos Kidney Disease less than 60 mL/min/1.73 m2 Kidney Failure less than 15 mL/min/1.73 m2 Average estimated GFR by age: 50-59 years 93 mL/min/1.73 m2 Performed By: #### B MP #### [facility] [address] [place] [address] Glucose [Mass/Vol] 164 mg/dL High 65-100 [facility] Comment on above: Performed By: #### B MP #### [facility] [address] [place] [address] Potassium [Moles/Vol] 4.5 mmol/L Normal 3.3-5.1 [facility] Comment on above: Performed By: #### B MP #### [facility] [address] [place] [address] Sodium [Moles/Vol] 139 mmol/L Normal 132-145 [facility] Comment on above: Performed By: #### B MP #### [facility] [address] [place] [address] Urea nitrogen [Mass/Vol] 12.4 mg/dL Normal 3.2-26.9 [facility] Comment on above: Performed By: #### B MP #### [facility] [address] [place] [address] Urea nitrogen/Creatinine [Mass ratio] 19 mg/mg Normal 6-20 [facility] Comment on above: Performed By: #### B MP #### [facility] [address] [place] [address] CBC w/Auto Differentialon Basophils Abs. # 0.01 K/uL Normal 0.00-0.10 [facility] Comment on above: Performed By: #### C BCS #### [address] [place] [address] Basophils/100 WBC (Bld) 0.1 % Low 0.2-1.0 [facility] Comment on above: Performed By: #### C BCS #### [address] [place] [address] Eosinophils (Bld) [#/Vol] 0.00 10*3/uL Normal 0.00-0.20 [facility] Comment on above: Performed By: #### C BCS #### [facility] [address] [place] [address] Eosinophils/100 WBC (Bld) 0.1 % Low 0.9-2.9 [facility] Comment on above: Performed By: #### C BCS #### [address] [place] [address] Erythrocyte distribution width (RBC) [Ratio] 13.6 % Normal 11.5-14.5 [facility] Comment on above: Performed By: #### C BCS #### [address] [place] [address] Hematocrit (Bld) [Volume fraction] 52.8 % High 36.7-50.6 [facility] Comment on above: Performed By: #### C BCS #### [address] [address] Hemoglobin (Bld) [Mass/Vol] 17.0 g/dL Normal 12.4-17.3 [facility] Comment on above: Performed By: #### C BCS #### [address] [place] [address] Imm Grans % 0.20 % Normal 0.00-1.00 [facility] Comment on above: Performed By: #### C BCS #### [address] [place] [address] Imm Grans Absolute # 0.02 K/uL Normal 0.00-0.10 [facility] Comment on above: Performed By: #### C BCS #### [address] [place] [address] Lymphocytes (Bld) [#/Vol] 1.30 10*3/uL Normal 1.30-2.90 [facility] Comment on above: Performed By: #### C BCS #### [address] [place] [address] Lymphocytes/100 WBC (Bld) 14.6 % Low 17.0-45.5 [facility] Comment on above: Performed By: #### C BCS #### [address] [place] [address] MCH (RBC) [Entitic mass] 28.9 pg Normal 27.0-31.0 [facility] Comment on above: Performed By: #### C BCS #### [address] [place] [address] MCHC (RBC) [Mass/Vol] 32.2 g/dL Low 33.0-37.0 [facility] Comment on above: Performed By: #### C BCS #### [address] [place] [address] MCV (RBC) [Entitic vol] 89.8 fL Normal 80.0-94.0 [facility] Comment on above: Performed By: #### C BCS #### [address] [place] [address] Monocytes (Bld) [#/Vol] 0.10 10*3/uL Low 0.30-0.80 [facility] Comment on above: Performed By: #### C BCS #### [address] [place] [address] Monocytes/100 WBC (Bld) 1.3 % Low 5.5-11.7 [facility] Comment on above: Performed By: #### C BCS #### [address] [place] [address] Neutrophils Abs. # 7.14 K/uL High 2.20-4.80 [facility] Comment on above: Performed By: #### C BCS #### [address] [place] [address] Neutrophils/100 WBC (Bld) 83.7 % High 43.0-65.0 [facility] Comment on above: Performed By: #### C BCS #### [address] [address] Platelet mean volume (Bld) [Entitic vol] 10.5 fL High 7.4-10.4 [facility] Comment on above: Performed By: #### C BCS #### [address] [place] [address] Platelets (Bld) [#/Vol] 268 10*3/uL Normal 148-402 [facility] Comment on above: Performed By: #### C BCS #### [facility] [address] [place], [place] [id number] RBC (Bld) [#/Vol] 5.88 10*6/uL High 4.13-5.69 [facility] Comment on above: Performed By: #### C BCS #### [facility] [address] [place], [place] [id number] WBC (Bld) [#/Vol] 8.5 10*3/uL Normal 3.6-10.8 [facility] Comment on above: Performed By: #### C BCS #### [address] [place] [address] Color urOrdered By: NELLY STEVE on 05-21-2022 Color (U) yellow Yellow [facility] Culture with gram stain, bod y fluidOrdered By: FRANKO WAKEFIELD on 05-21-2022 MCH (RBC) [Entitic mass] 28.9 pg 27.0-31.0 [facility] Determination of erythrocyte mean corpuscular volume (MCV)Ordered By: FRANKO WAKEFIELD on 05-21-2022 MCV (RBC) [Entitic vol] 89.8 fL 80.0-94.0 [facility] EMERGENCY DEPARTMENTon 05-21 [place] [address] HEALTH INFORMATION MANAGEMENT EMERGENCY DEPARTMENT : [phone] Signed with Octaviano Patient: AZALIA MATTHEW Acct:[id number] MRUN : [id number] : 1970 Sex: M Loc: 4TH FLOOR ADM Date: 05/20/22 Room/Bed: 425-B DISC Date: ADDENDUM--------- - I have been informed of the oracle technical developer the CT will not be possible due [...] 4 weeks per patient. 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 Not seen any doctor for the same [...] - Soc (more content not included)... Normal [facility] Eosinophils/100 WBC Auto (Bl d)Ordered By: FRANKO WAKEFIELD on 05-21-2022 Eosinophils/100 WBC (Bld) 0.1 % 0.9-2.9 [facility] Erythrocyte distribution wid th ratioOrdered By: FRANKO WAKEFIELD on 05-21-2022 Erythrocyte distribution width (RBC) [Ratio] 13.6 % 11.5-14.5 [facility] High Sensitivity TNIon 05-21 Abs Change hsTnI 1 ng/L Normal [facility] Comment on above: Performed By: #### C MP #### [facility] [address] [place] [address] Delta % hsTnI 25 % Normal [facility] Comment on above: Performed By: #### C MP #### [facility] [address] [place] [address] High Sensitivity TNI 4 ng/L Normal 0-76 [facility] Comment on above: Result Comment: Inte rpretation comment: High-sensitivity troponin I (hsTnI) assay can reliably detect low troponin concentrations relative to conventional troponin assays. It is the preferred marker of myocardial necrosis as recommended by the Fourth Minter Definition of Myocardial Infarction Guidelines. The diagnosis [...] significant. Performed By: #### C MP #### [facility] [address] [place] [address] Abs Change hsTnI 2 ng/L Normal [facility] Comment on above: Performed By: #### H STNI #### [facility] [address] [place], [place] [id number] Delta % hsTnI 40 % Normal [facility] Comment on above: Performed By: #### H STNI #### [facility] [address] [place], [place] [id number] High Sensitivity TNI 5 ng/L Normal 0-76 [facility] Comment on above: Result Comment: Inte rpretation comment: High-sensitivity troponin I (hsTnI) assay can reliably detect low troponin concentrations relative to conventional troponin assays. It is the preferred marker of myocardial necrosis as recommended by the Fourth Minter Definition of Myocardial Infarction Guidelines. The diagnosis [...] significant. Performed By: #### H STNI #### [address] [address] Immature granulocytes/100 WB C Auto (Bld)Ordered By: FRANKO WAKEFIELD on 05-21-2022 Immature granulocytes/100 WBC (Bld) 0.20 % 0.00-1.00 [facility] Ketones Test strip Ql (U)Ord ered By: NELLY DIMAS on 05-21-2022 Ketones Ql (U) 5 Negative [facility] - Chemistry and C hemistry - challengeOrdered By: FRANKO WAKEFIELD on 05-21-2022 Calcium [Mass/Vol] 9.5 mg/dL 8.2-10.0 [facility] Creatinine [Mass/Vol] 0.66 mg/dL 0.50-1.17 [facility] Glucose [Mass/Vol] 164 mg/dL 65-100 [facility] Magnesium [Mass/Vol] 2.1 mg/dL 1.3-2.3 [facility] Urea nitrogen [Mass/Vol] 12.4 mg/dL 3.2-26.9 [facility] Urea nitrogen/Creatinine [Mass ratio] 19 mg/mg 6-20 [facility] - Chemistry and C hemistry - challengeOrdered By: NELLY DIMAS on 05-21-2022 Bilirubin Ql (U) Negative Negative [facility] Glucose Ql (U) 50 Negative [facility] - Hematology and Cell countsOrdered By: FRANKO WAKEFIELD on 05-21-2022 Basophils (Bld) [#/Vol] 0.01 10*3/uL 0.00-0.10 [facility] Hematocrit (Bld) [Volume fraction] 52.8 % 36.7-50.6 [facility] MCHC (RBC) [Mass/Vol] 32.2 g/dL 33.0-37.0 [facility] Platelet mean volume (Bld) [Entitic vol] 10.5 fL 7.4-10.4 [facility] Platelets (Bld) [#/Vol] 268 10*3/uL 148-402 [facility] RBC (Bld) [#/Vol] 5.88 10*6/uL 4.13-5.69 [facility] WBC (Bld) [#/Vol] 8.5 10*3/uL 3.6-10.8 [facility] Magnesiumon 05-21-2022 Magnesium [Mass/Vol] 2.1 mg/dL Normal 1.3-2.3 [facility] Comment on above: Performed By: #### C BCS #### [facility] [address] [place] [address] Monocyte %Ordered By: MAYRA WAKEFIELD on 05-21-2022 Monocyte % 139 mmol/L 132-145 [facility] Monocyte % 4.5 mmol/L 3.3-5.1 [facility] Monocyte % 102 mmol/L 94-110 [facility] Monocyte % 29 mmol/L 21-34 [facility] Monocyte % 17.0 g/dL 12.4-17.3 [facility] Monocytes (Bld) [#/Vol] 7.14 10*3/uL 2.20-4.80 [facility] Monocytes (Bld) [#/Vol] 0.10 10*3/uL 0.30-0.80 [facility] Monocytes (Bld) [#/Vol] 0 10*3/uL 0.00-0.20 [facility] Monocytes/100 WBC (Bld) 14.6 % 17.0-45.5 [facility] Monocytes/100 WBC (Bld) 1.3 % 5.5-11.7 [facility] Monocytes/100 WBC (Bld) 0.1 % 0.2-1.0 [facility] Neutrophils seg % bldOrdered By: FRANKO WAKEFIELD on 05-21-2022 Segmented neutrophils/100 WBC (Bld) 83.7 % 43.0-65.0 [facility] Nitrite Test strip Ql (U)Ord ered By: NELLY DIMAS on 05-21-2022 Nitrite Ql (U) Negative Negative [facility] No Panel InformationOrdered By: FRANKO WAKEFIELD on 05-21-2022 Estimated GFR (MDRD) Amer > 60 >60 [facility] Comment on above: Chronic Kidney Disea se less than 60 mL/min/1.73 [id number] Failure less than 15 mL/min/1.73 [id number] estimated GFR by age:50-59 years 93 mL/min/1.73 m2 Estimated GFR (MDRD) Non-Af Amer > 60 >60 [facility] No Panel InformationOrdered By: NELLY DIMAS on 05-21-2022 Urine Urobilinogen Normal mg/dL Normal-1.0 [facility] Urine WBC 0-2 /hpf 0 - 6 [facility] Protein ur QLOrdered By: TRIP DIMAS on 05-21-2022 Protein Ql (U) Negative Negative [facility] RBC LM Ql (Urine sed)Ordered By: NELLY DIMAS on 05-21-2022 RBC Ql (U) 0-2 /hpf 0 - 2 [facility] RBC Test strip (U) [#/Vol]Or dered By: NELLY DIMAS on 05-21-2022 RBC (U) [#/Vol] 10 /uL Negative [facility] Serum or plasma anion gapOrd ered By: FRANKO WAKEFIELD on 05-21-2022 Anion gap [Moles/Vol] 12.5 mmol/L 8.0-16.0 [facility] Specific gravity Test strip (U) [Rel density]Ordered By: NELLY DIMAS on 05-21-2022 Specific gravity (U) [Rel density] 1.015 1.015-1.02 5 [facility] UA w/Micrscopic-reflex cultu reon 05-21-2022 Appearance (U) CLEAR Normal Clear [facility] Comment on above: Performed By: #### U AMRC #### [facility] [address] [place] [address] Bacteria COUNTER POCKET TRIMMER Normal 0 - 1+ [facility] Comment on above: Performed By: #### U AMRC #### [facility] [address] [place] [address] Bilirubin Ql (U) Negative Normal Negative [facility] Comment on above: Performed By: #### U AMRC #### [facility] [address] [place] [address] Casts COUNTER POCKET TRIMMER Normal [facility] Comment on above: Performed By: #### U AMRC #### [facility] [address] [place] [address] Casts. COUNTER POCKET TRIMMER Normal [facility] Comment on above: Performed By: #### U AMRC #### [facility] [address] [place] [address] Color (U) yellow Normal Yellow [facility] Comment on above: Performed By: #### U AMRC #### [facility] [address] [place] [address] Crystals LM Nom (Urine sed) COUNTER POCKET TRIMMER Normal [facility] Comment on above: Performed By: #### U AMRC #### [facility] [address] [place] [address] Crystals. COUNTER POCKET TRIMMER Normal [facility] Comment on above: Performed By: #### U AMRC #### [facility] [address] [place] [address] Epithelial cells LM Ql (Urine sed) COUNTER POCKET TRIMMER Normal 0 - 6 [facility] Comment on above: Performed By: #### U AMRC #### [facility] [address] [place] [address] Glucose Ql (U) 50 Abnormal Negative [facility] Comment on above: Performed By: #### U AMRC #### [facility] [address] [place] [address] Hemoglobin Ql (U) 10 Abnormal Negative [facility] Comment on above: Performed By: #### U AMRC #### [facility] [address] [place] [address] Ketones Ql (U) 5 Abnormal Negative [facility] Comment on above: Performed By: #### U AMRC #### [facility] [address] [place] [address] Leukocytes Esterase Negative Normal Negative [facility] Comment on above: Performed By: #### U AMRC #### [facility] [address] [place] [address] Mucus Ql (Urine sed) COUNTER POCKET TRIMMER Normal [facility] Comment on above: Performed By: #### U AMRC #### [facility] [address] [place] [address] Nitrite Ql (U) Negative Normal Negative [facility] Comment on above: Performed By: #### U AMRC #### [facility] [address] [place] [address] pH (U) 5 [pH] Normal [facility] Comment on above: Performed By: #### U AMRC #### [facility] [address] [place] [address] Protein Ql (U) Negative Normal Negative [facility] Comment on above: Performed By: #### U AMRC #### [facility] [address] [place] [address] RBC 0-2 Normal 0 - 2 [facility] Comment on above: Performed By: #### U AMRC #### [facility] [address] [place] [address] Specific gravity (U) [Rel density] 1.015 Normal 1.015-1.02 5 [facility] Comment on above: Performed By: #### U AMR #### [address] [place] [address] Trichomonas COUNTER POCKET TRIMMER Normal [facility] Comment on above: Performed By: #### U AMRC #### [facility] [address] [place] [address] Urobilinogen NORMAL Normal Normal-1.0 [facility] Comment on above: Performed By: #### U AMRC #### [address] [place] [address] WBC 0-2 Normal 0 - 6 [facility] Comment on above: Performed By: #### U AMRC #### [facility] [address] [place] [address] Yeast COUNTER POCKET TRIMMER Normal [facility] Comment on above: Performed By: #### U AMRC #### [address] [place] [address] Other COUNTER POCKET TRIMMER Normal [facility] Comment on above: Performed By: #### U AMRC #### [address] [place] [address] US SAMMY LEGS FOR DVTon 2022 US [...] in either lower extremity. RECOMMENDATIONS: Unavailable Normal [facility] Urine leukocyte esterase det ection by dipstickOrdered By: NELLY DIMAS on 05-21-2022 Leukocyte esterase Test strip Ql (U) Negative Negative [facility] pH Test strip (U)Ordered By: NELLY DIMAS on 05-21-2022 pH (U) 5 [pH] [facility] 2019 Novel Coronavirus (CoVI D-19), NAAon 05-20-2022 SARS-CoV-2 (COVID-19) RNA BANDAR+probe Ql (Unsp spec) Not detected Normal Not Detected [facility] Comment on above: Result Comment: This nucleic acid amplification test was developed and its performance characteristics determined by [employer]. Nucleic acid amplification tests include RT-PCR and [...] detected) result in this assay. Performed at: [facility] [address] [id number] Obstetrician: Jose Alfredo Belle PhD, Phone: [phone] Performed By: #### L COV #### [address] [address] Albumin ser/plasOrdered By: NELLY DIMAS on 05-20-2022 Albumin [Mass/Vol] 3.6 g/dL 3.4-5.0 [facility] Blood total protein measurem entOrdered By: NELLY DIMAS on 05-20-2022 Protein [Mass/Vol] 8.2 g/dL 6.1-8.2 [facility] CBC w/Auto Differentialon Basophils Abs. # 0.02 K/uL Normal 0.00-0.10 [facility] Comment on above: Performed By: #### C BCS #### [address] [address] Basophils/100 WBC (Bld) 0.3 % Normal 0.2-1.0 [facility] Comment on above: Performed By: #### C BCS #### [address] [address] Eosinophils (Bld) [#/Vol] 0.20 10*3/uL Normal 0.00-0.20 [facility] Comment on above: Performed By: #### C BCS #### [address] [address] Eosinophils/100 WBC (Bld) 2.7 % Normal 0.9-2.9 [facility] Comment on above: Performed By: #### C BCS #### [address] [address] Erythrocyte distribution width (RBC) [Ratio] 13.5 % Normal 11.5-14.5 [facility] Comment on above: Performed By: #### C BCS #### [address] [place] [id number] Hematocrit (Bld) [Volume fraction] 53.7 % High 36.7-50.6 [facility] Comment on above: Performed By: #### C BCS #### [place] [address] Hemoglobin (Bld) [Mass/Vol] 17.1 g/dL Normal 12.4-17.3 [facility] Comment on above: Performed By: #### C BCS #### [place] [id number] Imm Grans % 0.10 % Normal 0.00-1.00 [facility] Comment on above: Performed By: #### C BCS #### [address] [place] [address] Imm Grans Absolute # 0.01 K/uL Normal 0.00-0.10 [facility] Comment on above: Performed By: #### C BCS #### [place] [address] Lymphocytes (Bld) [#/Vol] 2.40 10*3/uL Normal 1.30-2.90 [facility] Comment on above: Performed By: #### C BCS #### [id number] Lymphocytes/100 WBC (Bld) 31.7 % Normal 17.0-45.5 [facility] Comment on above: Performed By: #### C BCS #### [address] [place] [address] MCH (RBC) [Entitic mass] 28.7 pg Normal 27.0-31.0 [facility] Comment on above: Performed By: #### C BCS #### [address] [place] [address] MCHC (RBC) [Mass/Vol] 31.8 g/dL Low 33.0-37.0 [facility] Comment on above: Performed By: #### C BCS #### [address] [place] [address] MCV (RBC) [Entitic vol] 90.1 fL Normal 80.0-94.0 [facility] Comment on above: Performed By: #### C BCS #### [address] [place] [address] Monocytes (Bld) [#/Vol] 0.60 10*3/uL Normal 0.30-0.80 [facility] Comment on above: Performed By: #### C BCS #### [address] [place] [address] Monocytes/100 WBC (Bld) 8.1 % Normal 5.5-11.7 [facility] Comment on above: Performed By: #### C BCS #### [address] [place] [address] Neutrophils Abs. # 4.25 K/uL Normal 2.20-4.80 [facility] Comment on above: Performed By: #### C BCS #### [address] [place] [address] Neutrophils/100 WBC (Bld) 57.1 % Normal 43.0-65.0 [facility] Comment on above: Performed By: #### C BCS #### [address] [place] [address] Platelet mean volume (Bld) [Entitic vol] 9.9 fL Normal 7.4-10.4 [facility] Comment on above: Performed By: #### C BCS #### [address] [place] [address] Platelets (Bld) [#/Vol] 252 10*3/uL Normal 148-402 [facility] Comment on above: Performed By: #### C BCS #### [address] [address] RBC (Bld) [#/Vol] 5.96 10*6/uL High 4.13-5.69 [facility] Comment on above: Performed By: #### C BCS #### [address] [address] WBC (Bld) [#/Vol] 7.4 10*3/uL Normal 3.6-10.8 [facility] Comment on above: Performed By: #### C BCS #### [address] [address] CHEST APon 05-20-2022 CHEST AP EXAMINATION: ONE XRAY VIEW OF THE CHEST 05/20/2022 5:29 pm COMPARISON: HISTORY: ORDERING SYSTEM PROVIDED HISTORY: dyspnea/cough FINDINGS: The lungs are without acute focal process. There is no effusion or pneumothorax. The cardiomediastinal silhouette is without acute process. The osseous structures are without acute process. IMPRESSION: No acute process. Normal [facility] Comprehensive Metabolic Pane art 05-20-2022 Albumin [Mass/Vol] 3.6 g/dL Normal 3.4-5.0 [facility] Comment on above: Performed By: #### C MP #### [address] [place] [address] Albumin/Globulin [Mass ratio] 0.8 {ratio} Low 1.1-2.5 [facility] Comment on above: Performed By: #### C MP #### [address] [place] [address] ALP [Catalytic activity/Vol] 210 U/L High 54-112 [facility] Comment on above: Performed By: #### C MP #### [address] [place] [address] ALT [Catalytic activity/Vol] 69 U/L High 13-66 [facility] Comment on above: Performed By: #### C MP #### [address] [place] [address] Anion gap [Moles/Vol] 12.2 mmol/L Normal 8.0-16.0 [facility] Comment on above: Performed By: #### C MP #### [address] [place] [address] AST [Catalytic activity/Vol] 32 U/L Normal 3-39 [facility] Comment on above: Performed By: #### C MP #### [address] [place] [address] Bilirubin [Mass/Vol] 0.34 mg/dL Normal 0.00-0.99 [facility] Comment on above: Performed By: #### C MP #### [address] [place] [address] Calcium [Mass/Vol] 9.3 mg/dL Normal 8.2-10.0 [facility] Comment on above: Performed By: #### C MP #### [address] [place] [address] Chloride [Moles/Vol] 103 mmol/L Normal 94-110 [facility] Comment on above: Performed By: #### C MP #### [facility] [address] [place] [address] CO2 [Moles/Vol] 31 mmol/L Normal 21-34 [facility] Comment on above: Performed By: #### C MP #### [facility] [address] [place] [address] Creatinine [Mass/Vol] 1.07 mg/dL Normal 0.50-1.17 [facility] Comment on above: Performed By: #### C MP #### [facility] [address] [place] [address] EGFR Other Races >60 Normal >60 [facility] Comment on above: Performed By: #### C MP #### [facility] [address] [place] [address] GFR/1.73 sq M.predicted among blacks MDRD (S/P/Bld) [Vol rate/Area] mL/min/{1.73_m2} Normal >60 [facility] Comment on above: Result Comment: Chief Unit Forester carlos Kidney Disease less than 60 mL/min/1.73 m2 Kidney Failure less than 15 mL/min/1.73 m2 Average estimated GFR by age: 50-59 years 93 mL/min/1.73 m2 Performed By: #### C MP #### [facility] [address] [place] [address] Globulin (S) [Mass/Vol] 4.6 g/dL High 1.5-4.5 [facility] Comment on above: Performed By: #### C MP #### [facility] [address] [place] [address] Glucose [Mass/Vol] 108 mg/dL High 65-100 [facility] Comment on above: Performed By: #### C MP #### [facility] [address] [place] [address] Potassium [Moles/Vol] 4.2 mmol/L Normal 3.3-5.1 [facility] Comment on above: Performed By: #### C MP #### [facility] [address] [place] [address] Protein [Mass/Vol] 8.2 g/dL Normal 6.1-8.2 [facility] Comment on above: Performed By: #### C MP #### [facility] [address] [place] [address] Sodium [Moles/Vol] 142 mmol/L Normal 132-145 [facility] Comment on above: Performed By: #### C MP #### [facility] [address] [place] [address] Urea nitrogen [Mass/Vol] 14.7 mg/dL Normal 3.2-26.9 [facility] Comment on above: Performed By: #### C MP #### [address] [place] [address] Urea nitrogen/Creatinine [Mass ratio] 14 mg/mg Normal 6-20 [facility] Comment on above: Performed By: #### C MP #### [facility] [address] [place] [address] Culture with gram stain, bod y fluidOrdered By: NELLY DIMAS on 05-20-2022 Albumin/Globulin [Mass ratio] 0.8 {ratio} 1.1-2.5 [facility] AST [Catalytic activity/Vol] 32 U/L 3-39 [facility] D-Dimeron 05-20-2022 D-Dimer 0.66 mg/L FEU Critically high 0.00-0.49 [facility] Comment on above: Result Comment: Nega [...] - Performed By: #### D YUMIKO #### [place] [address] Detection in respiratory spe cimen of antigen of either or both severe acute respiratoOrdered By: NELLY DIMAS on 05-20-2022 SARS-CoV+SARS-CoV-2 (COVID-19) Ag IA.rapid Ql (Resp) Negative Negative [facility] Comment on above: The Viola 2 SARS Ant igen WING is a lateral flow immunofluorescent sandwichassay that is used with the Viola 2 instrument intended for the qualitativedetection of the nucleocapsid protein antigen from SARS-CoV-2 innasopharyngeal (COUNTER POCKET TRIMMER) and nasal (NS) swab specimens directly or [...] 05-20 Abs Change hsTnI 0 ng/L Normal [facility] Comment on above: Performed By: #### H STNI #### [facility] [address] [place], [place] [id number] [phone] Delta % hsTnI 0 % Normal [facility] Comment on above: Performed By: #### H STNI #### [facility] [address] [place] [address] High Sensitivity TNI 7 ng/L Normal 0-76 [facility] Comment on above: Result Comment: Inte rpretation comment: High-sensitivity troponin I (hsTnI) assay can reliably detect low troponin concentrations relative to conventional troponin assays. It is the preferred marker of myocardial necrosis as recommended by the Fourth Minter Definition of Myocardial Infarction Guidelines. The diagnosis [...] significant. Performed By: #### H STNI #### [address] [place] [address] High Sensitivity TNI 7 ng/L Normal 0-76 [facility] Comment on above: Result Comment: Inte rpretation comment: High-sensitivity troponin I (hsTnI) assay can reliably detect low troponin concentrations relative to conventional troponin assays. It is the preferred marker of myocardial necrosis as recommended by the Fourth Minter Definition of Myocardial Infarction Guidelines. The diagnosis [...] significant. Performed By: #### C MP #### [address] [place] [address] INR in Platelet poor plasma by Coagulation assayOrdered By: NELLY DIMAS on 05-20-2022 INR Coag (PPP) [Relative time] 0.97 {INR} [facility] Comment on above: 2.0 - 3.0 Group A2.5 - 3.5 Group BGroup A indications: Prophylaxis and treatment of venousthrombosis. Treatment of pulmonary embolism. Prevention ofsystemic embolism. Tissue heart valves. Acute myocardialinfarction. Valvular heart disease. Atrial fibrillation.Group B indications: Mechanical prosthetic valves. . Influenza A B (Rapid)on 05-02 Influenza A antigen Negative Normal (Negative) [facility] Comment on above: Performed By: #### C MP #### [address] [place] [address] Influenza B antigen Negative Normal (Negative) [facility] Comment on above: Performed By: #### C MP #### [address] [place] [address] Interpretation of serum or p lasma cardiac troponin I measurement by high sensitivityOrdered By: FRANKO WAKEFIELD on 05-20-2022 Troponin I.cardiac High sensitivity method Ql [Interp] 4 ng/L 0-76 [facility] Comment on above: Interpretation comme nt:High-sensitivity troponin [...] 05-20-2022 ALP [Catalytic activity/Vol] 210 U/L 54-112 [facility] ALT [Catalytic activity/Vol] 69 U/L 13-66 [facility] Globulin (S) [Mass/Vol] 4.6 g/dL 1.5-4.5 [facility] Natriuretic peptide B (Bld) [Mass/Vol] 104 pg/mL 0-125 [facility] Comment on above: NOTE-Dietary supplem ents containing high biotin levels may cause significantinterference with affected lab tests, including cardiovascular diagnostictests and hormone tests that use biotin technology. Incorrect test resultsmay be generated if there is biotin in the patients specimen. Lipaseon 05-20-2022 Lipase [Catalytic activity/Vol] 32 U/L Low 65-230 [facility] Comment on above: Performed By: #### L IPAS #### [facility] [address] [place], [place] [id number] Lipase ser/plasOrdered By: Park DIMAS on 05-20-2022 Lipase [Catalytic activity/Vol] 32 U/L 65-230 [facility] Monocyte %Ordered By: NELLY DIMAS on 05-20-2022 Monocyte % 0.34 mg/dL 0.00-0.99 [facility] NT Pro-BNPon 05-20-2022 Natriuretic peptide B (Bld) [Mass/Vol] 104 pg/mL Normal 0-125 [facility] Comment on above: Result Comment: NOTE -Dietary supplements containing high biotin levels may cause significant interference with affected lab tests, including cardiovascular diagnostic tests and hormone tests that use biotin technology. Incorrect test results may be generated if there is biotin in the patients specimen. Performed By: #### C BCS #### [address] [id number] No Panel InformationOrdered By: NELLY DIMAS on 05-20-2022 Influenza Type A Antigen Negative (Negative) [facility] Influenza Type B Antigen Negative (Negative) [facility] D-Dimer 0.66 mg/L FEU 0.00-0.49 [facility] Comment on above: Negative Predictive Value = [...] infections-Liver cirrhosis- Prothrombin Time 9.2 '' 8.9-12.2 [facility] Comment on above: New Reference Ranges effective 2017. PTTon 05-20-2022 aPTT Coag (Bld) [Time] 28.1 s Normal 19.5-32.1 [facility] Comment on above: Result Comment: New Reference Ranges effective 2017. Performed By: #### P TT #### [address] [id number] PTT PPPOrdered By: NELLY HUNT on 05-20-2022 aPTT Coag (PPP) [Time] 28.1 '' 19.5-32.1 [facility] Comment on above: New Reference Ranges effective 2017. Prothrombin Timeon INR Coag (PPP) [Relative time] 0.97 {INR} Normal [facility] Comment on above: Result Comment: 2.0 - 3.0 Group A 2.5 - 3.5 Group B Group A indications: Prophylaxis and treatment of venous thrombosis. Treatment of pulmonary embolism. Prevention of systemic embolism. Tissue heart valves. Acute myocardial infarction. Valvular heart disease. Atrial fibrillation. Group B indications: Mechanical prosthetic valves. . Performed By: #### C BCS #### [address] [id number] PT Coag (PPP) [Time] 9.2 s Normal 8.9-12.2 [facility] Comment on above: Result Comment: New Reference Ranges effective 2017. Performed By: #### C BCS #### [address] [id number] SARS Antigen (Rapid)on 05-20 SARS Antigen Negative Normal Negative [facility] Comment on above: Result Comment: The Viola 2 SARS Antigen WING is a lateral flow immunofluorescent sandwich assay that is used with the Viola 2 instrument intended for the qualitative detection of the nucleocapsid protein antigen from SARS-CoV-2 in nasopharyngeal (COUNTER POCKET TRIMMER) and nasal (NS) swab specimens directly or [...] with COVID-19. Performed By: #### C #### [address] [address] Severe acute respiratory syn drome coronavirus 2 (SARS-CoV-2) RNA detection by probe aOrdered By: NELLY DIMAS on 05-20-2022 SARS-CoV-2 (COVID-19) RNA BANDAR+probe Ql (Unsp spec) Not detected Not Detected [facility] Comment on above: This nucleic acid am [...] withoutsymptoms of COVID-19 and who is not [id number] virus would expect to have anegative (not detected) result in thisassay.Performed at: [facility] [id number] Director: Jose Alfredo Belle PhD, Phone: [phone] Troponin I measurement by ne ghly sensitive enzyme immunoassayOrdered By: FRANKO WAKEFIELD on 05-20-2022 Troponin I.cardiac High sensitivity method [Mass/Vol] 1 ng/L [facility] Troponin I.cardiac High sensitivity method [Mass/Vol] 25 % [facility] Vital Signs Date Time Vital Sign Value Performing Clinician Facility 09-08-2024 12:16-0400 Body temperature 97.9 [degF] No Primary Care Physician [facility] 09-08-2024 12:16-0400 Diastolic blood pressure 80 mm[Hg] No Primary Care Physician [facility] 09-08-2024 12:16-0400 Heart rate 71 /min No Primary Care Physician [facility] 09-08-2024 12:16-0400 Respiratory rate 16 /min No Primary Care Physician [facility] 09-08-2024 12:16-0400 SaO2% (BldA) [Mass fraction] 92 % No Primary Care Physician [facility] 09-08-2024 12:16-0400 Systolic blood pressure 153 mm[Hg] No Primary Care Physician [facility] 09-08-2024 04:19-0400 Body mass index (BMI) [Ratio] 92.2 kg/m2 No Primary Care Physician [facility] 09-08-2024 04:19-0400 Body weight 227.2 kg No Primary Care Physician [facility] 09-07-2024 14:50-0400 Inhaled oxygen flow rate 2 L/min No Primary Care Physician [facility] 09-06-2024 15:37-0400 Body height 182.88 cm No Primary Care Physician [facility] 09-06-2024 05:00-0400 Heart rate 76 /min No [facility] Phys[facility] Rehabilitation 09-06-2024 05:00-0400 Respiratory rate 26 /min No Primary Care Physician [facility] 09-06-2024 04:30-0400 Diastolic blood pressure 105 mm[Hg] No Primary Care Physician [facility] 09-06-2024 04:30-0400 Systolic blood pressure 147 mm[Hg] No Primary Care Physician [facility] 09-06-2024 04:15-0400 Body temperature 98.7 [degF] No Primary Care Physician [facility] 09-06-2024 04:15-0400 SaO2% (BldA) [Mass fraction] 92 % No Primary Care Physician [facility] 09-06-2024 04:00-0400 Inhaled oxygen flow rate 4 L/min No Primary Care Physician [facility] 09-06-2024 01:19-0400 Inhaled oxygen concentration 3 % No Primary Care Physician [facility] 09-06-2024 00:23-0400 Body height 182.88 cm No Primary Care Physician [facility] 09-06-2024 00:23-0400 Body mass index (BMI) [Ratio] 58.6 kg/m2 No Primary Care Physician [facility] 09-06-2024 00:23-0400 Body weight 196.3 kg No Primary Care Physician [facility] 06-14-2024 16:56-0500 Body temperature 98.6 [degF] No Primary Care Physician [facility] 06-14-2024 16:56-0500 Diastolic blood pressure 96 mm[Hg] No Primary Care Physician [facility] 06-14-2024 16:56-0500 Heart rate 78 /min No Primary Care Physician [facility] 06-14-2024 16:56-0500 Respiratory rate 18 /min No Primary Care Physician [facility] 06-14-2024 16:56-0500 SaO2% (BldA) [Mass fraction] 95 % No Primary Care Physician [facility] 06-14-2024 16:56-0500 Systolic blood pressure 146 mm[Hg] No Primary Care Physician [facility] 06-14-2024 09:57-0500 Inhaled oxygen flow rate 2 L/min No Primary Care Physician [facility] 06-14-2024 05:50-0500 Body mass index (BMI) [Ratio] 67.8 kg/m2 No Primary Care Physician [facility] 06-14-2024 05:50-0500 Body weight 227.25 kg No Primary Care Physician [facility] 11-26-2023 11:00-0400 Body temperature 97.81 [degF] Lizbeth Wilson MD Work Phone: 1(328)483-995290 [address] 11-26-2023 11:00-0400 Diastolic blood pressure 59 mm[Hg] Lizbeth Wilson MD Work Phone: 5([phone])[phone] [address] 11-26-2023 11:00-0400 Heart rate 78 /min Lizbeth Wilson MD Work Phone: 7(845)[phone] [address] 11-26-2023 11:00-0400 Respiratory rate 23 /min Lizbeth Wilson MD Work Phone: [facility] 11-26-2023 11:00-0400 SaO2% (BldA) [Mass fraction] 92 % Lizbeth Wilson MD Work Phone: [facility] 11-26-2023 11:00-0400 Systolic blood pressure 127 mm[Hg] Lizbeth Wilson MD Work Phone: [facility] 11-26-2023 06:50-0400 Body mass index (BMI) [Ratio] 67.34 kg/m2 Lizbeth Wilson MD Work Phone: [facility] 11-26-2023 06:50-0400 Body weight 225.21 kg Lizbeth Wilson MD Work Phone: [facility] 11-22-2023 18:00-0400 Body height 182.9 cm Lizbeth Wilson MD Work Phone: [facility] 05-21-2022 12:00-0500 Body temperature 98.5 [degF] MD LD GIMENEZ Work Phone: [facility] 05-21-2022 12:00-0500 Diastolic blood pressure 73 mm[Hg] MD LD GIMENEZ Work Phone: [facility] 05-21-2022 12:00-0500 Heart rate 85 /min MD LD GIMENEZ Work Phone: [facility] 05-21-2022 12:00-0500 Respiratory rate 18 /min MD LD GIMENEZ Work Phone: [facility] 05-21-2022 12:00-0500 Systolic blood pressure 144 mm[Hg] MD LD GIMENEZ Work Phone: [facility] 05-21-2022 10:30-0500 SaO2% (BldA) [Mass fraction] 91 % MD LD GIMENEZ Work Phone: [facility] 05-20-2022 20:40-0500 Body weight 231.7 kg MD LD GIMENEZ Work Phone: [facility] 05-20-2022 16:32-0500 Body height 182.88 cm MD LD GIMENEZ Work Phone: [facility] Encounters Encounter Date Encounter Type Care Provider Facility Start: 09-08-2024 Non-patient / Non-visit Dr. [facility] Work Phone: Start: 09-07-2024 Non-patient / Non-visit Dr. [facility] Work Phone: Start: 09-06-2024 ambulatory No Primary Car e Physician Facility:[facility] Start: 09-06-2024 Non-patient / Non-visit Dr. Ferny joy MD -[facility] Start: 09-06-2024 ambulatory No Primary Car e Physician Facility:[facility] Start: 09-06-2024 End: 09-08-2024 Evaluation and management of inpatient Dr. Isma Sheikh DO -[facility] Work Phone: Start: 06-14-2024 Non-patient / Non-visit Dr. Ferny alva DO -[facility] Work Phone: Start: 06-14-2024 End: 06-14-2024 ambulatory Ferny Coats Facility:[facility] Start: 06-14-2024 End: 06-14-2024 Evaluation and management of inpatient Dr. Ferny Coats DO -Medical Surgical 3 Work Phone: Start: 02-10-2024 ambulatory No Primary Car e Physician Facility:[facility] Start: 01-09-2024 ambulatory No Primary Car e Physician Facility:[facility] Start: 01-09-2024 End: 01-30-2024 ambulatory No Primary Care Physician Facility:[facility] Start: 12-28-2023 ambulatory No Primary Car e Physician Facility:[facility] Start: 12-28-2023 End: 12-31-2023 ambulatory No Primary Care Physician Facility:[facility] Start: 12-23-2023 ambulatory Kareem Matthias Facility:[facility] Start: 12-22-2023 ambulatory Isma Parkinson Facility:[facility] Start: 12-22-2023 End: 12-25-2023 Evaluation and management of inpatient No Primary Care Physician Facility:[facility] Start: 11-26-2023 Evaluation and management of inpatient [facility] Start: 11-24-2023 ambulatory JOSIAS COLES [facility] Start: 11-23-2023 ambulatory NONE [facility]CP [facility] Start: 11-22-2023 Emergency department patient visit NONE [facility]CP [facility] Start: 11-22-2023 Emergency department patient visit NONE [facility]CP [facility] Start: 11-22-2023 End: 11-26-2023 Evaluation and management of inpatient NONE PCP [facility] Comment on above: Acute congestive hea rt [...] of inpatient MD LD GIMENEZ Work Phone: [facility] Start: 05-20-2022 End: 05-21-2022 observation encounter MD LD GIMENEZ Work Phone: [facility] Work Phone: Procedures Date Procedure Procedure Detail [...] or Pulmonary Embolism (PE)CRITICAL VALUE CALLED TO [id number]/08/25 025 Bunny Castrejon.RESULTS READ BACK BY SAME. [...] bpgs compl bi study Josias Coles APRN STALLION KEEPER Work Phone: Start: 11-24-2023 Blood count complete [...] veins complete bilateral study Shawna Sotelo APRN COUNTER POCKET TRIMMER Work Phone: Start: 11-22-2023 End: 11-22-2023 Culture bacterial blood aerobic w/id isolates Shawna Sotelo APRN COUNTER POCKET TRIMMER Work Phone: Start: 11-22-2023 Radiologic exam chest single view Shawna Sotelo APRN COUNTER POCKET TRIMMER Work Phone: Start: 11-22-2023 Basic metabolic panel calcium total Shawna Sotelo APRN COUNTER POCKET TRIMMER Work Phone: Start: 11-22-2023 Ecg routine ecg w/least 12 lds trcg only w/o i&r Shawna Sotelo APRN COUNTER POCKET TRIMMER Work Phone: Start: 05-21-2022 Ultrasonography of deep [...] Activity Detail Author Start: 09-08-[address] [facility] Start: 09-07-2024 Provision of activit y privileges [facility] Start: 09-06-2024 Following clinical pathway protocol [facility] Start: 09-06-2024 Assessment of risk o f venous thromboembolism [facility] Start: 09-06-2024 Inhalation therapy procedure [facility] Start: 09-06-2024 Insertion of cathete r into peripheral vein [facility] Start: 09-06-2024 Measuring intake and output [facility] Start: 09-06-2024 Oxygen therapy [facility] Start: 09-06-2024 Providing care accor ding to standard [facility] Start: 09-06-2024 Provision of activit y privileges [facility] Start: 09-06-2024 Referral to service [facility] Start: 09-06-2024 Tobacco use cessatio n education [facility] Start: 09-06-2024 [facility] Start: 09-06-2024 CT angiography of ch est with contrast CTA Chest W/WO Contrast [facility] Start: 09-06-2024 CTA Chest vessels WO and W contrast IV [facility] Start: 09-06-2024 Urinalysis complete panel - Urine [facility] Start: 09-06-2024 Admission procedure [facility] Start: 09-06-2024 Verification routine [facility] Start: 09-06-2024 Hospital admission, emergency, from emergency room, medical nature [facility] Start: 09-06-2024 [facility] Start: 09-06-2024 End: 09-06-2024 [facility] Start: 06-14-[address] [facility] Start: 06-14-2024 Emergency dept visit high severity&threat funcj EMERGENCY DEPT VISIT HI MDM [facility] Start: 06-14-2024 Respiratory secretio n precautions [facility] Start: 06-14-2024 Application of intermittent pneumatic compression device [facility] Start: 06-14-2024 Following clinical pathway protocol [facility] Start: 06-14-2024 Ambulation without limitation [facility] Start: 06-14-2024 Assessment of risk o f venous thromboembolism [facility] Start: 06-14-2024 Catheterization of vein [facility] Start: 06-14-2024 Incentive spirometry [facility] Start: 06-14-2024 Inhalation therapy procedure [facility] Start: 06-14-2024 Insertion of cathete r into peripheral vein [facility] Start: 06-14-2024 Measuring intake and output [facility] Start: 06-14-2024 Oxygen therapy [facility] Start: 06-14-2024 Providing care accor ding to standard [facility] Start: 06-14-2024 Referral to service [facility] Start: 06-14-2024 [facility] Start: 06-14-2024 Continuous positive airway pressure ventilation treatment [facility] Start: 06-14-2024 Admission procedure [facility] Start: 01-01-2024 Influenza vaccinatio n given INFLUENZA VACCINE (#1) [facility] Start: 12-31-2022 COVID-19 VACCINE ( season) COVID-19 VACCINE ( season) [facility] Start: 05-20-2022 Consultation [facility] Start: 05-20-2022 Hospital admission, emergency, from emergency room [facility] Start: 05-20-2022 Resuscitation [facility] Start: 05-20-2022 Pulmonary ventilatio n perfusion study [facility] Start: 11-19-2021 Screening for malign ant neoplasm of lung CT SCAN CHEST (LOW DOSE) [facility] Start: 11-19-2021 Zoster vaccine hzv l manny for subcutaneous use ZOSTER (SHINGLES) VACCINE (1 of 2) [facility] Start: 11-19-2016 Screening for malign ant neoplasm of colon [facility] Start: 11-19-2006 Fasting lipid profile LIPID SCREENIN G [facility] Start: 11-19-1989 ANNUAL WELLNESS VISIT ANNUAL WELLNES S VISIT [facility] Start: 1983 Depression screening using PHQ-9 (Patient Health Questionnaire 9) score DEPRESSION SCREENING [facility] Start: 11-19-1982 Administration of diphtheria + tetanus + acellular pertussis vaccine DTAP/TDAP/TD VACCINE (1 - Tdap) [facility] Bacteria identified in Blood by Culture Blood culture x2 (Includes gram stain) Microbiology [facility] 11/22/2023 2:52 PM EDT [facility] Basic metabolic 2000 panel - Serum or Plasma Basic metabolic panel Lab Routine Daily 0500 until discontinued starting 11/26/2023, 1 completed [facility] Comment on above: Daily 0500 until dis continued starting 11/26/2023, 1 completed CBC panel - Blood by Automated count CBC Lab Routine Daily 0500 until discontinued starting 11/26/2023, 1 completed [employer] Work Phone: Comment on above: Daily 0500 until dis continued starting 11/26/2023, 1 completed End: 11-22-2023 Consult Enterostomal Therapy To Eval And Treat Consult Enterostomal Therapy To Eval And Treat Wound Ostomy Routine One Time for 1 Occurrences starting 11/22/2023 until 11/22/2023 [facility] [employer] Work Phone: Comment on above: One Time for 1 Occur rences starting 11/22/2023 until 11/22/2023 End: 11-22-2023 [facility] [employer] Comment on above: Once for 1 Occurrenc es starting 11/22/2023 until 11/22/2023, 1 completed End: 11-22-2023 [facility] Comment on above: Once for 1 Occurrenc es starting 11/22/2023 until 11/22/2023, 1 completed Hepatic function 200 0 panel - Serum or Plasma Hepatic function panel Lab Routine Daily 0500 until discontinued starting 11/26/2023, 1 completed [employer] Comment on above: Daily 0500 until dis continued starting 11/26/2023, 1 completed End: 11-22-2023 [facility] Comment on above: Once for 1 Occurrenc es starting 11/22/2023 until 11/22/2023, 1 completed End: 11-22-2023 [facility] Comment on above: Once for 1 Occurrenc es starting 11/22/2023 until 11/22/2023, 1 completed End: 11-22-2023 [facility] Comment on above: Once for 1 Occurrenc es starting 11/22/2023 until 11/22/2023, 1 completed N terminal pro-brain natriuretic peptide level [facility] Oxygen Therapy Nasal Cannula; Liters Per Minute: 2.0 LPM; RT may modify oxygen administration per policy: Yes Titrate and maintain SaO2 > 88% Oxygen Therapy Nasal Cannula; Liters Per Minute: 2.0 LPM; RT may modify oxygen administration per policy: Yes Titrate and maintain SaO2 > 88% Respiratory Care Routine Continuous until discontinued starting 11/22/2023 [employer] Work Phone: Comment on above: Continuous until dis continued starting 11/22/2023 Patient Education Chronic Obstru ctive Pulmonary Disease, [id number] [facility] [employer] Work Phone: Patient referral [facility] Work Phone: Platelet count every other day starting day 3 Platelet count every other day starting day 3 Lab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 [address] Follow Up: Isma Braxton DPM [address] [place] [address] [place] [address] Call Arrange for follow-up with wound care [facility] [address] [place] [address] [place] [address] Pcp, None [address] [place] [address] [address] [address] [address] [facility] [address] No future appointments. A face to face visit was performed with the patient on the day of discharge. For more detailed information including patient medical records, please contact [phone] or go to [email or web address] Patient instructions, including activity, were given to the patient/family at discharge. Please seethe After Visit Summary in the medical record for details. Time spent on discharge: > 30 Minutes Completed by: Sara Ramirez MD on 11/26/23, 11:50 AM documented in this encounterPalestine [facility]07-27-2024 History of Present illness Narrative* Isma Braxton DPM - 11/26/2023 6:39 AM EDT Progress Note Subjective: Primary Reason for Visit: Arterial and venous leg ulcer Alert and oriented x 3. 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 Staff Primary Care Physician: Dillon Pcp Stripper Soft Plastic: Tamera Reina RVT Ordering Physician: Josias Coles APRN STALLION KEEPER Attending Physician: Lizbeth Wilson MD History/Risk Factors [...] 184 cm/s RIGHT Iliac Waveform: Triphasic RIGHT APPLICATIONS DEVELOPMENT CONSULTANT PSV (cm/s): 249 cm/s RIGHT APPLICATIONS DEVELOPMENT CONSULTANT Waveform: Triphasic RIGHT PFA PSV (cm/s): 65 [...] RIGHT Dist Pop Waveform: Triphasic RIGHT Prox HOUSING MANAGER PSV (cm/s): 41 cm/s RIGHT Prox HOUSING MANAGER Waveform: Triphasic RIGHT Mid HOUSING MANAGER PSV (cm/s): 113 cm/s RIGHT Mid HOUSING MANAGER Waveform: Triphasic RIGHT Dist HOUSING MANAGER PSV (cm/s): 75 cm/s RIGHT Dist HOUSING MANAGER Waveform: Triphasic RIGHT Prox FLACA PSV (cm/s): 77 cm/s RIGHT Prox FLACA Waveform: Biphasic RIGHT Mid FLACA PSV (cm/s): 16 cm/s RIGHT Mid FLACA Waveform: Monophasic RIGHT Dist FLACA PSV (cm/s): 28 cm/s RIGHT Dist FLACA Waveform: Monophasic LEFT Iliac PSV (cm/s): 173 cm/s LEFT Iliac Waveform: Triphasic LEFT APPLICATIONS DEVELOPMENT CONSULTANT PSV (cm/s): 172 cm/s LEFT APPLICATIONS DEVELOPMENT CONSULTANT Waveform: Triphasic LEFT PFA PSV (cm/s): 266 [...] LEFT Dist Pop Waveform: Triphasic LEFT Prox HOUSING MANAGER PSV (cm/s): 102 cm/s LEFT Prox HOUSING MANAGER Waveform: Triphasic LEFT Mid HOUSING MANAGER PSV (cm/s): 59 cm/s LEFT Mid HOUSING MANAGER Waveform: Triphasic LEFT Dist HOUSING MANAGER PSV (cm/s): 65 cm/s LEFT Dist HOUSING MANAGER Waveform: Triphasic LEFT Prox FLACA PSV (cm/s): [...] 72 Hrs Assessment: Principal Problem: Heart failure ([facility]) Active Problems: Heart failure, unspecified ([facility]) Acute bilateral venous stasis dermatitis PVD (peripheral vascular disease) ([facility]) Plan: 1.) Exam 2.) At this time [...] constructed and dictated with the use of [employer] Voice Recognition Software program which may omit or change portions of the dictation, and or substitute ominous and there by altering the original intent dictated statement. Unintended gender changes may also be incorporated due to misinterpretation of the spoken words. * Sara Ramirez MD - 11/25/2023 11:24 AM EDT [facility] Inpatient Progress Note 11/25/2023 Azalia Matthew 1970 [id number] Assessment/Plan: Azalia Matthew is a 53 y.o. male with a history of COPD who presented to [facility] with lower extremity edema, exertional dyspnea/orthopnea. Patient was found to have CHF and acute hypoxic failure. Patient transferred to [facility] 11/22/2023 for further management. Volume overload: suspect [...] analysis. Staff Primary Care Physician: None Pcp Stripper Soft Plastic: Tamera Reina RVT Ordering Physician: Josias Coles APRN STALLION KEEPER Attending Physician: Lizbeth Wilson MD History/Risk Factors [...] 184 cm/s RIGHT Iliac Waveform: Triphasic RIGHT APPLICATIONS DEVELOPMENT CONSULTANT PSV (cm/s): 249 cm/s RIGHT APPLICATIONS DEVELOPMENT CONSULTANT Waveform: Triphasic RIGHT PFA PSV (cm/s): 65 [...] RIGHT Dist Pop Waveform: Triphasic RIGHT Prox HOUSING MANAGER PSV (cm/s): 41 cm/s RIGHT Prox HOUSING MANAGER Waveform: Triphasic RIGHT Mid HOUSING MANAGER PSV (cm/s): 113 cm/s RIGHT Mid HOUSING MANAGER Waveform: Triphasic RIGHT Dist HOUSING MANAGER PSV (cm/s): 75 cm/s RIGHT Dist HOUSING MANAGER Waveform: Triphasic RIGHT Prox FLACA PSV (cm/s): 77 cm/s RIGHT Prox FLACA Waveform: Biphasic RIGHT Mid FLACA PSV (cm/s): 16 cm/s RIGHT Mid FLACA Waveform: Monophasic RIGHT Dist FLACA PSV (cm/s): 28 cm/s RIGHT Dist FLACA Waveform: Monophasic LEFT Iliac PSV (cm/s): 173 cm/s LEFT Iliac Waveform: Triphasic LEFT APPLICATIONS DEVELOPMENT CONSULTANT PSV (cm/s): 172 cm/s LEFT APPLICATIONS DEVELOPMENT CONSULTANT Waveform: Triphasic LEFT PFA PSV (cm/s): 266 [...] LEFT Dist Pop Waveform: Triphasic LEFT Prox HOUSING MANAGER PSV (cm/s): 102 cm/s LEFT Prox HOUSING MANAGER Waveform: Triphasic LEFT Mid HOUSING MANAGER PSV (cm/s): 59 cm/s LEFT Mid HOUSING MANAGER Waveform: Triphasic LEFT Dist HOUSING MANAGER PSV (cm/s): 65 cm/s LEFT Dist HOUSING MANAGER Waveform: Triphasic LEFT Prox FLACA PSV (cm/s): [...] Imaging Arterial Duplex Lower Extremity Bilat (Order: [id number]) - 11/24/2023 Result History Arterial Duplex Lower Extremity Bilat (Order #[id number]) on 11/24/2023 - Order Result History Report [...] followed in wound center 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 [...] constructed and dictated with the use of [employer] Voice Recognition Software program which may omit or change portions of the dictation, and or substitute ominous and there by altering the original intent dictated statement. Unintended gender changes may also be incorporated due to misinterpretation of the spoken words. * Tereso Arcos DO - 11/24/2023 12:34 PM EDT [facility] Medicine / [facility] Inpatient Progress Note 11/24/2023 Azalia Matthew 1970 [id number] Assessment/Plan: Azalia Matthew is a 53 y.o. male with a history of COPD who presented to [facility] with lower extremity edema, exertional dyspnea/orthopnea. Patient was found to have CHF and acute hypoxic failure. Patient transferred to [facility] 11/22/2023 for further management. Volume overload: suspect [...] last 168 hours. * Josias Coles APRN STALLION KEEPER - 11/24/2023 8:05 AM EDT Azalia Pérez [place] 1970 Admission Date:11/22/2023 Patient Seen on 11/24/2023 Subjective: Patient seen in follow-up for bilateral lower extremity venous ulceration. 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 He states ulcers present for approximately 1 [...] difficult with Definity Patient Status: OBV Site: [facility] [place] [facility] [place] Type: ECHOCARDIOGRAM WITH CONTRAST Study Info Indications - CHF Procedure(s) A complete two-dimensional, color flow and Doppler transthoracic echocardiogram was performed with Definity contrast to opacify the left ventricle and to improve the delineation of the left ventricle endocardial borders. Staff Primary Care Provider: None Pcp Ordering Provider: Canelo Cummins MD Stripper Soft Plastic: Parrish Hanna [facility], RVT History/Risk Factors Tobacco Use: Current [...] mmHg MV VTI 29 cm MV Decel Cobb 325 cm/s2 MV PHT 83 ms MV [...] Arcos DO - 11/23/2023 4:06 PM EDT [facility] Medicine / [facility] In[facility] Progress Note 11/23/2023 Azalia Matthew 1970 [id number] Assessment/Plan: Azalia Matthew is a 53 y.o. male with a history of COPD who presented to [facility] with lower extremity edema, exertional dyspnea/orthopnea. Patient was found to have CHF and acute hypoxic failure. Patient transferred to [facility] 11/22/2023 for further management. Acute CHF: suspect [...] the last 168 hours. [facility] Nurse Note* Nursing - Emma Larkin LPN - 11/25/2023 6:48 PM EDT Patient resting in bed. Bilateral dressing changes changed per orders. Vitals stable. No other needs at this time. Call light in reach. [facility]07-26-2024 Consult note* Lizbeth Don [...] difficult with Definity Patient Status: OBV Site: [facility] [place] [facility] [place] Type: ECHOCARDIOGRAM WITH CONTRAST Study Info Indications - CHF Procedure(s) A complete two-dimensional, color flow and Doppler transthoracic echocardiogram was performed with Definity contrast to opacify the left ventricle and to improve the delineation of the left ventricle endocardial borders. Staff Primary Care Provider: None Pcp Ordering Provider: Canelo Cummins MD Stripper Soft Plastic: Parrish Hanna [facility], RVT History/Risk Factors Tobacco Use: Current [...] mmHg MV VTI 29 cm MV Decel Cobb 325 cm/s2 MV PHT 83 ms MV [...] analysis. Staff Primary Care Physician: None Pcp Stripper Soft Plastic: Tamera Reina RVT Ordering Physician: Josias Coles APRN STALLION KEEPER Attending Physician: Lizbeth Wilson MD History/Risk Factors [...] 184 cm/s RIGHT Iliac Waveform: Triphasic RIGHT APPLICATIONS DEVELOPMENT CONSULTANT PSV (cm/s): 249 cm/s RIGHT APPLICATIONS DEVELOPMENT CONSULTANT Waveform: Triphasic RIGHT PFA PSV (cm/s): 65 [...] RIGHT Dist Pop Waveform: Triphasic RIGHT Prox HOUSING MANAGER PSV (cm/s): 41 cm/s RIGHT Prox HOUSING MANAGER Waveform: Triphasic RIGHT Mid HOUSING MANAGER PSV (cm/s): 113 cm/s RIGHT Mid HOUSING MANAGER Waveform: Triphasic RIGHT Dist HOUSING MANAGER PSV (cm/s): 75 cm/s RIGHT Dist HOUSING MANAGER Waveform: Triphasic RIGHT Prox FLACA PSV (cm/s): 77 cm/s RIGHT Prox FLACA Waveform: Biphasic RIGHT Mid FLACA PSV (cm/s): 16 cm/s RIGHT Mid FLACA Waveform: Monophasic RIGHT Dist FLACA PSV (cm/s): 28 cm/s RIGHT Dist FLACA Waveform: Monophasic LEFT Iliac PSV (cm/s): 173 cm/s LEFT Iliac Waveform: Triphasic LEFT APPLICATIONS DEVELOPMENT CONSULTANT PSV (cm/s): 172 cm/s LEFT APPLICATIONS DEVELOPMENT CONSULTANT Waveform: Triphasic LEFT PFA PSV (cm/s): 266 [...] LEFT Dist Pop Waveform: Triphasic LEFT Prox HOUSING MANAGER PSV (cm/s): 102 cm/s LEFT Prox HOUSING MANAGER Waveform: Triphasic LEFT Mid HOUSING MANAGER PSV (cm/s): 59 cm/s LEFT Mid HOUSING MANAGER Waveform: Triphasic LEFT Dist HOUSING MANAGER PSV (cm/s): 65 cm/s LEFT Dist HOUSING MANAGER Waveform: Triphasic LEFT Prox FLACA PSV (cm/s): 82 cm/s LEFT Prox FLACA Waveform: Biphasic LEFT Mid FLACA PSV (cm/s): 113 cm/s LEFT Mid FLACA Waveform: Monophasic LEFT Dist FLACA PSV (cm/s): 51 cm/s LEFT Dist FLACA Waveform: Monophasic Report Signatures Finalized by Montse Plasenica DO on 11/24/2023 01:22 PM Doppler Findings [...] Triphasic LEFT Dorsalis Pedis : Monophasic T [employer] Work Phone: 1(527) 723-357607-26-2024 Consult note* Lizbeth Don DO - 11/25/2023 [...] difficult with Definity Patient Status: OBV Site: [facility] [place] [facility] [place]am Type: ECHOCARDIOGRAM WITH CONTRAST Study Info Indications - CHF Procedure(s) A complete two-dimensional, color flow and Doppler transthoracic echocardiogram was performed with Definity contrast to opacify the left ventricle and to improve the delineation of the left ventricle endocardial borders. Staff Primary Care Provider: None Pcp Ordering Provider: Canelo Cummins MD Stripper Soft Plastic: Parrish Hanna [facility], RVT History/Risk Factors Tobacco Use: Current [...] mmHg MV VTI 29 cm MV Decel Cobb 325 cm/s2 MV PHT 83 ms MV [...] analysis. Staff Primary Care Physician: None Pcp Stripper Soft Plastic: Tamera Reina RVT Ordering Physician: Josias Coles APRN STALLION KEEPER Attending Physician: Lizbeth Wilson MD History/Risk Factors [...] 184 cm/s RIGHT Iliac Waveform: Triphasic RIGHT APPLICATIONS DEVELOPMENT CONSULTANT PSV (cm/s): 249 cm/s RIGHT APPLICATIONS DEVELOPMENT CONSULTANT Waveform: Triphasic RIGHT PFA PSV (cm/s): 65 [...] RIGHT Dist Pop Waveform: Triphasic RIGHT Prox HOUSING MANAGER PSV (cm/s): 41 cm/s RIGHT Prox HOUSING MANAGER Waveform: Triphasic RIGHT Mid HOUSING MANAGER PSV (cm/s): 113 cm/s RIGHT Mid HOUSING MANAGER Waveform: Triphasic RIGHT Dist HOUSING MANAGER PSV (cm/s): 75 cm/s RIGHT Dist HOUSING MANAGER Waveform: Triphasic RIGHT Prox FLACA PSV (cm/s): 77 cm/s RIGHT Prox FLACA Waveform: Biphasic RIGHT Mid FLACA PSV (cm/s): 16 cm/s RIGHT Mid FLACA Waveform: Monophasic RIGHT Dist FLACA PSV (cm/s): 28 cm/s RIGHT Dist FLACA Waveform: Monophasic LEFT Iliac PSV (cm/s): 173 cm/s LEFT Iliac Waveform: Triphasic LEFT APPLICATIONS DEVELOPMENT CONSULTANT PSV (cm/s): 172 cm/s LEFT APPLICATIONS DEVELOPMENT CONSULTANT Waveform: Triphasic LEFT PFA PSV (cm/s): 266 [...] LEFT Dist Pop Waveform: Triphasic LEFT Prox HOUSING MANAGER PSV (cm/s): 102 cm/s LEFT Prox HOUSING MANAGER Waveform: Triphasic LEFT Mid HOUSING MANAGER PSV (cm/s): 59 cm/s LEFT Mid HOUSING MANAGER Waveform: Triphasic LEFT Dist HOUSING MANAGER PSV (cm/s): 65 cm/s LEFT Dist HOUSING MANAGER Waveform: Triphasic LEFT Prox FLACA PSV (cm/s): [...] Dorsalis Pedis : Monophasic documented in this [facility]07-26-2024 Plan of care note* D/C Planning - Alannah Crane RN - 11/25/2023 11:18 AM EDT Per rounds patient has vascular consult based on test results of yesterday. Patient will need a PCPor to go to [facility] for follow up labs after discharge. Discharge date to be determined after vascularsees the patient. 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 Oxygen being weaned and downto 1L as of rounds. CM following. [facility] Work Phone: 1(992) 618-278707-25-2024 Nurse Note* Nursing - Lore Walter RN - 11/24/2023 6:34 AM EDT Patient has rested at intervals this shift. O2 applied at 2L for desats to 83 while sleeping. Sats maintained on 2L. Dressing change to BLE per orders. PRN oxycodone effective for pain. Lovenox VTE. Continent to BSC. Call light in easy reach, able to verbalize needs. [employer] [id number] Nurse Note* Nursing - Lore Walter RN - 11/23/2023 9:35 PM EDT Dressing change attempted as ordered. Patient complains of 10/10 burning pain to BLE with cleansingof BLE with soap and water and application of zinc strips. Dr. Denney notified and orders received for one time dose of oxycodone [employer] [id number] Nurse Note* ET Notes - Lianne Mendenhall [...] to Heart Failure, chartreviewed. 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 Patient has not seen a Computer Programming Manager or had any venous/arterial testing. Patient seen [...] primary RN. Thank you for the consult. [employer] Work Phone: 1(166) 673-699107-24-2024 Plan of care note* D/C Planning - Abbey Vital Social Worker - 11/23/2023 2:48 PM EDT CM Initial Discharge Planning Azalia Matthew 1970 Met with Azalia Mathtew at Bedside. 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 Comes home to visit his aunt. 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 uses a cane. Denies agency involvement. Has no PCP. Uses [facility]. Denies all CM needs. DCP home with self care. Initial Discharge Planning Reason for Referral: Routine Discharge Plan Obtained Information From: Patient, Chart Family contact name: Juliana Matthew Family Contact Number: [phone] Living Arrangements: (semi truck) Capacity for Self-Care [...] in home: Cane Have you served in [employer] services: No Who will provide transportation?: Other, [...] Family/Caregiver Initial Discharge plan mutually acceptable to patient/family/adult protective caseworker?: Yes % Social Rodrigo Ohara The patient has the right to participate in the development and implementation of his plan of care.The patient or his housing management representative (as allowed under State law) has the right to make informed decisions regarding his discharge plan. The patient's right includes being involved in care planning and treatment. [employer] Work Phone: [phone]) 585-359407-24-2024 Progress note* Rehab Therapies - Jerel [id number] OT - 11/23/2023 11:14 AM EDT Images [...] Patient Prior Function Prior Function Level of [place]: Independent with ADLs, Independent with functional mobility, Independent with homemaking from ambulatory level Additional Comments: (Patient independent prior to admission. 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 OTR in room with patient at this time. 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 RR easy and unlabored. Call light within reach, no needs at this time. [facility]07-23-20[facility] Nurse Note* Nursing - Lyndsay Kim MST - 11/22/2023 6:00 PM EDT MST tried to get a weight at this time bed scale wasn't working and patient states he can't stand on the standing scale at this time due to having leg pain [facility]07-23-[facility]24 History and physical note* Adan Zaman PA - 11/22/2023 5:43 PM EDT Images from the original note were not included. [facility] Physical 11/22/23 Azalia Matthew 1970 [id number] Assessment/Plan: Azalia Matthew is a 53 y.o. male with a history of COPD who presented to [facility] with lower extremity edema, exertional dyspnea/orthopnea. Patient was found to have CHF and acute hypoxic failure. Patient transferred to [facility] 11/22/2023 for further management. Acute CHF: suspect [...] a history of COPD who presented to [facility] with lower extremity edema, exertional dyspnea/orthopnea. Patient was found to have CHF and acute hypoxic failure. Patient transferred to [facility] 11/22/2023 for further management. Patient seen this [...] PM EDT I have personally performed a [id number]-goam diagnostic evaluation of this patient on 11/22/23. [...] appropriate to clinical situation Canelo Cummins MD [facility] Hospitalist Please do not hesitate to contact me via [facility] directory or metal machine operator. [employer] Work Phone: 1(999) 757-560307-23-2024 History and physical note* Adan Zaman PA - 11/22/2023 5:43 PM EDT Images from the original note were not included. [facility] Medicine / [employer] History and Physical 11/22/23 Azalia Matthew 1970 [id number] Assessment/Plan: Azalia Matthew is a 53 y.o. male with a history of COPD who presented to [facility] with lower extremity edema, exertional dyspnea/orthopnea. Patient was found to have CHF and acute hypoxic failure. Patient transferred to [facility] 11/22/2023 for further management. Acute CHF: suspect [...] a history of COPD who presented to [facility] with lower extremity edema, exertional dyspnea/orthopnea. Patient was found to have CHF and acute hypoxic failure. Patient transferred to [facility] 11/22/2023 for further management. Patient seen this [...] PM EDT I have personally performed a pvqw-vc-[id number] diagnostic evaluation of this patient on 11/22/23. [...] appropriate to clinical situation Canelo Cummins MD [facility] Hospitalist Please do not hesitate to contact me via [employer] directory or metal machine operator. documented in this [facility]24 Emergency department Note* Beatrice Norman RN - 11/22/2023 4:56 PM EDT Lynn from [address] [place] [address] notified JADE at bedside for transport. [facility]07-23-[facility] Emergency department Note* Beatrice Norman RN - 11/22/2023 4:56 PM EDT JADE at bedside. Report to JADE [facility]07-23-20[facility] Emergency department Note* Beatrice Norman RN - 11/22/2023 4:56 PM EDT Lynn from [address] [place] [address] notified JADE at bedside for transport. * Beatrice Norman RN - 11/22/2023 4:56 PM EDT JADE at bedside. Report to JADE * Beatrice [...] decision making plan verbally with the midlevel, COUNTER POCKET TRIMMER, or PA, that led to the disposition, [...] 3.3 x10*3/uL Monocytes % 7.3 % Absolute [place] 0.6 0.2 - 0.6 x10*3/uL Eosinophil % [...] and dictated with the use of the [employer] voice recognition software program which may omit [...] were created for panel order PC and [facility] ED [place] Draw. Procedure Abnormality Status --------- ------ Gold Top[[id number]] In process LIGHT BLUE TOP[[id number]] In process Light Green Top[[id number]] In process Lavender Top[[id number]] In process Dark Green Top[[id number]] In process Please view results for these [...] attending regarding patient. Collaboration performed between this COOK'S ASSISTANT and physician regarding patient's plan of [...] respirations easy and unlabored. documented in this [facility]07-23-2024 Emergency department Note* Beatrice Norman RN - 11/22/2023 4:23 PM EDT Patient placed on ANIBAL call at this time. [facility]07-23-2024 Emergency department Note* Beatrice Norman RN - 11/22/2023 3:42 PM EDT Ultrasound at bedside. [facility]07-23-2024 Progress note* Pharmacy Note - Kaur Pastor PharmD - 11/22/2023 3:15 PM EDT Pharmacy To Dose Vancomycin For Emergency Department Ht: Wt:(!) 231.3 kg (510 lb) Vancomycin 2g IV x1 now Please administer Cefepime (Maxipime) prior to vancomycin administration. Thank you, Kaur Pastor PharmD [facility]07-23-2024 Physician Emergency department Note* Lizbeth Wilson MD - 11/22/2023 2:59 PM EDT I personally saw and examined this patient. I supervised the care and treatment of this patient. I formulated the medical decision making plan verbally with the midlevel, COUNTER POCKET TRIMMER, or PA, that led to the disposition, [...] 3.3 x10*3/uL Monocytes % 7.3 % Absolute [place] 0.6 0.2 - 0.6 x10*3/uL Eosinophil % [...] and dictated with the use of the [employer] voice recognition software program which may omit or change portions of the dictation, and/or substitute, homonyms and thereby alter the original intent of the dictated statement. Unintended gender changes may also be incorporated due to misinterpretation of the spoken words. Lizbeth Wilson MD 11/22/23 1502 [facility] Work Phone: 1(978) 433-818007-23-2024 Emergency department Note* Beatrice Norman RN - 11/22/2023 2:00 PM EDT 2 liters O2 placed on patient at this time, increases SPO2 to 92% [facility]07-23-2024 Physician Emergency department Note* Shawna Sotelo APRN COUNTER POCKET TRIMMER - 11/22/2023 1:58 PM EDT Images from [...] were created for panel order PC and [facility] ED [place] Draw. Procedure Abnormality Status --------- ------ Gold Top[[id number]] In process LIGHT BLUE TOP[[id number]] In process Light Green Top[[id number]] In process Lavender Top[[id number]] In process Dark Green Top[[id number]] In process Please view results for these [...] attending regarding patient. Collaboration performed between this COOK'S ASSISTANT and physician regarding patient's plan of [...] Course. Shawna Sotelo APRN NP 11/22/23 1616 [facility]07-23-2024 Emergency department Triage note* Beatrice Norman RN [...] oriented, skin Pwd, respirations easy and unlabored. [employer] [id number] [place] [address] HEALTH INFORMATION MANAGEMENT DISCHARGE SUMMARY : [id number] Signed Patient: AZALIA MATTHEW Acct:[id number] MRUN : [id number] : 1970 Sex: M Loc: 4TH FLOOR [...] 83.7 H, Lymph % (Auto) 14.6 L, [place] % (Auto) 1.3 L, Eos % (Auto) [...] Appearance Clear, Urine pH 5, Ur Specific Chauncey 1.015, Urine Protein Negative, Urine Ketones 5 [...] % (Auto) 57.1, Lymph % (Auto) 31.7, [place] % (Auto) 8.1, Eos % (Auto) 2.7, [...] LD GIMENEZ MD [P (more content not included)...[facility]01-23-2023 [place] [address] HEALTH INFORMATION MANAGEMENT CONSULTATION : [id number] Signed Patient: AZALIA MATTHEW Acct:[id number] MRUN : [id number] : 1970 Sex: M Loc: 4TH FLOOR [...] (Auto) 14.6 % (17.0-45.5) L 05/21/22 06:15 [place] % (Auto) 1.3 % (5.5-11.7) L 05/21/22 [...] Urine pH 5 05/21/22 03:51 Ur Specific Chauncey 1.015 (1.015-1.025) 05/21/22 03:51 Urine Protein Negative (Negative) 05/21/22 03:51 Urine Ketones 5 (Negative) A 05/21/22 03:51 Urine Blood 10 (Negative) A 05/21/22 03:51 Urine Nitrite Negative (Negative) 05/21/22 03:51 Urine Bilirubin Negative (Negative) 05/21/22 03:51 Urine Urobilinogen Normal mg/dL (Normal-1.0) 05/21/22 03:51 Ur Leukocyte Esterase Negative (Negative) 05/21/22 03:51 Urine RB (more content not included)...[facility] 05-24-2022 Consult note Author AIDE MONREAL [facility] May 23, 2022 11:53pm Note Date/Time May 23, 2022 1 1:52pm [facility] [address] [place] [address] HEALTH INFORMATION MANAGEMENT CONSULTATION : [id number] Signed Patient: AZALIA MATTHEW Acct:[id number] MRUN: [id number] : 1970 Sex: M Loc: 4TH FLOOR ADM Date: 05/20/22 Room/Bed: 425-B DISC Date: 05/21/22 CARDIOLOGY CONSULT THIS DOCUMENT HAS BEEN CREATED USING VOICE RECOGNITION SOFTWARE AND MAY CONTAIN GRAMMATICAL, SYNTAX, AND TYPOGRAPHICAL ERRORS. 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 Choose all that Apply: Male - Pep-Suicide Severity Rating Scale 1) Wish to be [...] By: AIDE MONREAL MD Signed Date/Time 05/23/22 5350 Co Signed Electronically By: Co Signed Date/Time: CC: AIDE MONREAL MD; LD GIMENEZ MD [facility] Work Phone: 1(687) 435-289101-21-2023 History and physical note Author ALLA HERNANDEZ [facility] May 22, 2022 8:38pm Note Date/Time May 20, 2022 8 :52pm [facility] [address] [place] [address] HEALTH INFORMATION MANAGEMENT HISTORY AND PHYSICAL : [id number] Signed Patient: AZALIA MATTHEW Acct:[id number] MRUN: [id number] : 1970 Sex: M Loc: 4TH FLOOR [...] for complaints of , then admitted to [facility] for SOB/COPD/CHEST DISCOMFORT/HEMOPTYSIS. AZALIA was admitted as a ADM to [facility] for further evaluation and treatment. Pt was seen and evaluated on 05/20/222050, by this provider, FRANKO WAKEFIELD CNP. History of present illness: Mr. Matthew a 51-year-old male [facility] with and reports that he has not [...] weeks per the patient. 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 Choose all that Apply: Male - Pep-Suicide Severity Rating Scale 1) Wish to be [...] The EKG was forwarded to Dr. Monreal, climatology teacher who did not find a STEMI. He [...] CC: AIDE MONREAL MD; LD GIMENEZ MD [facility] Work Phone: 1(303) 251-837301-21-2023 [place] [address] HEALTH INFORMATION MANAGEMENT HISTORY AND PHYSICAL : [id number] Signed Patient: AZALIA MATTHEW Acct:[id number] MRUN : [id number] : 1970 Sex: M Loc: 4TH FLOOR [...] for complaints of , then admitted to [facility] for SOB/COPD/CHEST DISCOMFORT/HEMOPTYSIS. AZALIA was admitted as a ADM to [facility] for further evaluation and treatment. Pt was seen and evaluated on 05/20/222050, by this provider, FRANKO WAKEFIELD CNP. History of present illness: Mr. Matthew a 51-year-old male [facility] with and reports that he has not [...] weeks per the patient. 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 Choose all that Apply: Male - Pep-Suicide Severity Rating Scale 1) Wish to be [...] Cardiovascular: Denies: Chest Pain-Sh (more content not included)...[facility] [id number] Discharge summary Author NELLY DIMAS [facility] May 20, 2022 10:42pm Note Date/Time May 20, 2022 5 :22pm [facility] [address] [place] [address] HEALTH INFORMATION MANAGEMENT EMERGENCY DEPARTMENT : [phone] Signed with Octaviano Patient: AZALIA MATTHEW Acct:[id number] MRUN: [id number] : 1970 Sex: M Loc: 4TH FLOOR ADM Date: 05/20/22 Room/Bed: 425-B DISC Date: ADDENDUM I have been informed of the oracle technical developer the CT will not be possible due [...] 4 weeks per patient. 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 Not seen any doctor for the same [...] Relationship: No Hx Physical Abuse: No - [place]/Gender ID What is your current Gender Identity? Choose all that Apply: Male - Pep-Suicide Severity Rating Scale 1) Wish to be [...] mood - Skin Skin Color: Present: Normal, [place] Skin exam: Present: warm, dry - Expanded [...] % Lymph % (Auto) 31.7 (17.0-45.5) % [place] % (Auto) 8.1 (5.5-11.7) % Eos % [...] (43.0-65.0) % Lymph % (Auto) (17.0-45.5) % [place] % (Auto) (5.5-11.7) % Eos % (Auto) [...] IMPRESSION: No acute process. 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: : 1970 Requested By: NELLY DIMAS Order Number: [id number] Reading MD: NELLY DIMAS Measurements Intervals [place] Rate: 81 P: 12 NM: 161 QRS: 45 QRSD: 103 T: 59 QT: 368 QTc: 428 Interpretive Statements Sinus rhythm Low voltage, precordial leads ST elev, probable normal early repol pattern Compared to ECG 01/05/2013 19:14:24 Low QRS voltage now present ST (T wave) deviation now present Electronically Signed On 05-20-2022 19:08:17 EST by NELLY DIMAS Electrocardiogram 05/20/22 18:15 [facility] ED Test Date: 2022-05-20 Test Time: 18:50:09 Pat Name: AZALIA MATTHEW Department: Patient ID: [id number] Room: Gender: M Compress Trucker: : 1970 Requested By: NELLY DIMAS Order Number: [id number] Reading MD: NELLY DIMAS Measurements Intervals [place] Rate: 79 P: 13 NM: 161 QRS: 39 QRSD: 105 T: 50 QT: 380 QTc: 436 Interpretive Statements Sinus rhythm Low voltage, precordial leads ST elev, probable normal early repol pattern Compared to ECG 05/20/2022 17:55:04 No significant changes Electronically Signed On 05-20-2022 19:07:33 EST by NELLY DIMAS - Medical Decision Making Patient has been admitted to the hospital by daysneft physician, I relieved him at 7 PM. [...] EKG was sent to and reviewed by climatology teacher Dr. Monreal. No findings of STEMI per [...] patient also states understanding of admission to [facility] and agrees with this Patient hemodynamically stable. No arrhythmias noted on the security test engineer. Sats are stable on supplemental oxygen. No [...] Generated By:NELLY DIMAS MD Generated Date/Time: 05/20/22 3826 Electronically Signed By: LIZBETH MCCLAIN DO Signed Date/Time 05/20/221932 Co Signed Electronically By: Co Signed Date/Time: CC: AIDE MONREAL MD; LD GIMENEZ MD [facility] Work Phone: Discharge summary Author Zachariah Lantigua [facility] Note Date/Time September 06, 2024 4:15am [facility] Medical Records Department [address] [place] [address] Emergency Department Summary 09/06/24 MR#: [id number] Acct: [id number] Name: AZALIA MATTHEW II Rep #:[id number] : 1970 53 From: Zachariah Lantigua [...] abdominal pain, palpitations, syncope, leg edema changes. 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 Empiric antibiotics were started and I added [...] 75.4 H Lymph % (Auto) 15.8 L [place] % (Auto) 6.6 Eos % (Auto) 1.4 [...] goiter or otherprocess, clinically correlate. Reading Location: [facility] Rhythm Strip Rhythm Strip: Sinus Rhythm [...] (COPD), Pneumonia Disposition Disposition: Acute Care Hospital [facility] What to do if you have Problems For any increased pain, shortness of breath, bleeding, nausea or vomiting, chestpain, or any unexpected problems, contact your Primary Care Provider. Call [facility] ([phone]) or report to the closest Emergency Room. Call 911 if necessary. 09/06/24 0415 <Electronically signed by Zachariah Lantigua MD> Cosigner Signature (if applicable): CC: No Primary Care Physician ~ Signed [facility] Work Phone: Evaluation note* Diagnosis Onset Date Resolution Status Chronic obstructive pulmonary disease acute Chest discomfort acute Positive D-dimer acute Hemoptysis acute Person under investigation for COVID-19 acute Shortness of breath acute [facility] Work Phone: Evaluation note* Diagnosis Heart failure [...] vascular disease, unspecified documented in this encounter [facility] Consultation (Emergency) - Open Specialty Diagnoses / Procedures Referred By Torito hussein Referred To Contact Family Medicine Diagnoses PVD (peripheral vascular disease) (HCC) Sara Ramirez MD [address] [place] [address] [place] [address] [address] [place] [address] Referral ID Status Reason Start Date Expiration Date Visits Re quested Visits Authorized [id number] Open 11/26/2023 12/26/2024 1 1 * (Routine) - Incomplete Specialty Diagnoses / Procedures Referred By Torito hussein Referred To Contact Sara Ramirez MD [address] [place] [address] Referral ID Status Reason Start Date Expiration Date V isits Requested Visits Authorized [id number] Incomplete 11/26/2023 12/26/2024 1 1 * Wound Consultation (Routine) - Open Specialty Diagnoses / Procedures Referred By Contac t Referred To Contact Wound Care Diagnoses Acute bilateral venous stasis dermatitis Sara Ramirez MD [facility] [place] [address] [facility] [address] [place] [address] Referral ID Status Reason Start Date Expiration Date Visits Re quested Visits Authorized [id number] Open 11/26/2023 12/26/2024 1 1 [facility]ative)No reason for referral information [facility] Work Phone: Chief Complaint and Reason for [...] Shaka uary 2022 11:53pm Unknown Endocrine?Hypothyroidism Unknown [facility] 2013 9:08am Gastrointestinal?Col orectal Cancer Unknown July 25, 2013 9:08am Musculoskeletal?Arthritis Unknown [facility] 2013 9:08am Psychological and Psychosocial?Alcohol Abuse [...] Do you have a Healthcare Power of Cutting Inspector? No June 14, 2024 2:15am Do you have a Healthcare Power of Cutting Inspector? No September 06, 2024 12:54am Advance Directive Response Recorded Date/ Time Living Will No June 14, 2 025 2:15am Do you have a Healthcare Power of Cutting Inspector? No June 14, 2024 2:15am Do you have a Healthcare Power of Cutting Inspector? 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 Jim Cortes , [...] section and content) DATE CREATED AUTHOR 05/28/2022 [facility] DATE CREATED AUTHOR AUTHOR'S ORGANIZ ATION 12/30/2023 [facility] DATE CREATED AUTHOR AUTHOR'S ORGANIZ ATION 09/11/2024 [facility] Reason for Visit (unrecogniz ed section and content) Reason Comments Leg Swelling Specialty Diagnoses / Procedures Referred By Contac t Referred To Contact Diagnoses Hypoxia Bilateral lower leg cellulitis Acute congestive heart failure, unspecified heart failure type (HCC) Heart failure (HCC) Procedures NO PC OBS/NO TIME LIMIT/ NO PROC Referral ID Status Reason Start Date Expiration Date Visits Re quested Visits Authorized [id number] 1 1 Scheduled Active and Recently Administ [...] Discontinued 0902 (Not Given - Provider: Jessica Tavears RN - Reason: Patient/family refused) 18 (Not [...] subsequent to initial labs (refer to the [facility] Electrolyte Replacement Orders) Other, PRN, For electrolyte [...] BE BASED ON THE PRIMARY CLINICAL RECORDS. [facility]. provides no warranty or guarantee of the accuracy or completeness of information in this document.
[2024-11-10] MEDS: 0.9% Saline Lock 10 ML Syringe IV (05:57)
[2024-11-10 06:31] LABS: Hematocrit 44.6 % (40-54); Hemoglobin 14.3 g/dL (13.0-16.5); Mean Corp Hgb Conc 32.1 g/dL (32-36); Mean Corpuscular Volume 90.1 fL (80-94); Mean Platelet Vol. 9.5 fl (6.2-12.0); Platelet Count 233 K/mm3 (150-450); RBC Distribution Width CV 14.5 % (11.6-14.6); RBC Distribution Width SD 47.2 fl (35.1-43.9); Red Blood Count 4.95 M/mm3 (4.6-6.2); White Blood Count 7.2 K/mm3 (4.4-11.0)
[2024-11-10 06:58] LABS: Anion Gap 9 (5-15); BUN 11 mg/dL (4-19); BUN/Creat Ratio 15.5 RATIO (10-20); Calcium,Total 8.7 mg/dL (7.6-11.0); Carbon Dioxide 28.7 mmol/L (21.0-32.0); Chloride 103 mmol/L (98-108); Estimated Creatinine Clearance 240.92 ml/min (50-250); Glucose 111 mg/dL (70-99); Potassium 3.3 mmol/L (3.3-5.1)
--- NOTE | 2024-11-10 08:22 | ECHOLC_ITS ---
Reason For Study Reason For Study: CONGESTIVE HEART FAILURE Procedure This was a 2D Doppler, Color Flow transthoracic echocardiogram. The patient was scanned supine. The study was technically difficult. Contrast injection was performed. Exam performed portable in patient room. Left Ventricle Normal left ventricle. Left ventricular systolic function is normal. The LV ejection fraction is 55 %. Normal diastology for age. No regional wall motion abnormalities noted. Right Ventricle Normal right ventricle. Normal systolic function. Atria Normal left atrium. Mitral Valve No mitral valve insufficiency. Tricuspid Valve Unable to estimate RV systolic pressure due to insufficient tricuspid regurgitant envelope. Aortic Valve The aortic valve is not well visualized in the short axis view. There is no aortic stenosis. Pulmonic Valve No eccentric pulmonic valve insufficiency. Great Vessels Normal sized aortic root. Pericardium/Pleural No pericardial effusion. Epicardial fat. Medication Diluted definity 6ml given slow IV push to enhance endocardial definition. MMode/2D Measurements & Calculations LVIDd: 4.9 cm IVSd: 1.5 cm LAV(MOD-sp4): 49.2 ml LVIDs: 3.1 cm LVPWd: 1.3 cm RVDd: 4.2 cm FS: 36.3 % LVAd ap4: 34.4 cm2 LVAd ap2: 32.7 cm2 SV(MOD-sp4): 63.9 ml LVLd ap4: 8.8 cm LVLd ap2: 8.2 cm SI(MOD-sp4): 20.8 ml/m2 EDV(MOD-sp4): 112.0 ml EDV(MOD-sp2): 101.8 ml EDV(sp4-el): 114.5 ml EDV(sp2-el): 110.7 ml LVAs ap4: 21.7 cm2 LVAs ap2: 20.0 cm2 LVLs ap4: 8.1 cm LVLs ap2: 7.4 cm ESV(MOD-sp4): 48.1 ml ESV(MOD-sp2): 44.6 ml ESV(sp4-el): 49.5 ml ESV(sp2-el): 45.9 ml EF(MOD-sp4): 57.0 % EF(MOD-sp2): 56.2 % EF(sp4-el): 56.7 % SV(MOD-sp2): 57.2 ml SV(sp4-el): 64.9 ml LA A4 area: 18.3 cm2 SI(MOD-sp2): 18.6 ml/m2 RA A4 area: 17.2 cm2 TAPSE: 2.1 cm Time Measurements MV dec time: 0.16 sec Doppler Measurements & Calculations MV E max son: 80.0 cm/sec Lat Peak E' Son: 14.1 cm/sec Med Peak E' Son: 10.5 cm/sec MV A max son: 59.7 cm/sec E/E' lat: 5.7 E/E' med: 7.6 MV E/A: 1.3 MV apr slope: 485.8 cm/sec2 ECHO/Echo Limited w/Contrast Interpretation Summary The LV ejection fraction is 55 %. Left ventricular systolic function is normal. Ordering Physician: Adelso Paniagua Performed By: Sadie Dboson RDCS
[2024-11-10] MEDS: Furosemide 500 MG in Empty Viaflex 50 mL 1 EACH CONT INF (11:17)
--- NOTE | 2024-11-10 11:48 | CASEMGMT ---
Social Work SW?to room to meet with patient for initial transition planning/care coordination?assessment.?SW?introduced self and role at [facility].? Pt voices understanding and consents to?assessment.? Pt is A/Ox4 and answers all questions appropriately.?? Care providers, pharmacy, and demographics verified. PCP: [facility] Specialists: none Preferred Pharmacy: [facility] Insurance: [employer] Prescription Benefit:? yes LNOK: Friend, Jose Lorenzo Living Arrangements: Pt is currently homeless. Pt had been living in a camper until 2 weeks ago when he was asked to leave. Since then pt has been borrowing a friends truck and staying in it. Pt is independent with care needs. Transportation:? pt has a truck he is borrowing from a friend and the friend is providing gas DME: ? none HHC/SNF: none PLAN: Social Work discussed homeless shelters with pt and pt adamantly refuses to go to a senior living. Pt plans to return to his truck at time of discharge. PT/OT has been ordered for pt and care management will follow for additional needs. SDOH: SDOH assessment completed and pt is homeless as stated above. SW provided resources on homeless shelters and [facility]housing program along with [employer], [employer], food pantries and served meals and transportation resources. DARLEEN Hardin
--- NOTE | 2024-11-10 13:53 | CM.UR ---
Social Work Therapy is recommending SNF placement. SW met with pt and discussed and pt is willing to consider this option. a list of SNF providers including quality and resource use data and consistent with the patient?s preferred geographic region, medical needs, and insurance network were provided from the [employer] Guide. SW will follow up on Tuesday for choices. DARLEEN Nguyễn
--- NOTE | 2024-11-10 19:07 | PCM.HOSP.N ---
Hospitalist Note Patient was seen and examined briefly today, he confirmed to me that he is presently homeless and lives in his car. Patient states he has never had a diagnosis of congestive heart failure before although he does have problems with water retention/edema. I have decided today to place the patient on IV Lasix drip to expedite diuresis. I ordered an echocardiogram today which showed a normal EF of 55% and no significant valvular heart disease.
[2024-11-11] VITALS (8 sets, daily range): BP systolic 90–133; BP diastolic 55–79; PULSE 66–97; RESP 16–18; TEMP 36–36.5; O2SAT 90–93; BMI 40.3
--- NOTE | 2024-11-11 15:18 | PN.HOSP_ITS ---
Reason for Visit Chief Complaint: Worsening shortness of breath and lower extremity swelling Subjective Subjective Today, I stopped his blood pressure medication due to hypotension, I would like him to remain on IV Lasix at this time. I briefly discussed possibility of him going to the custodial facility for short-term rehab services, patient is not against this. Objective Data Objective Data Vital Signs: Vital Signs Temp Pulse Resp BP Pulse Ox O2 Del Method O2 Flow Rate 97.7 F L 68 18 107/68 92 Room Air 2 11/11/24 14:48 11/11/24 15:00 11/11/24 14:48 11/11/24 14:48 11/11/24 14:48 11/11/24 14:48 11/10/24 02:45 Oxygen Flow Rate (L/min) 2 Oxygen Delivery Method Room Air Weight: 127.4 kg Body Mass Index (BMI) 40.3 Intake & Output: Intake and Output for Last 24 Hours 11/09/24 11/10/24 11/11/24 23:59 23:59 23:59 Intake Total 444 / 1044 600 / 600 Output Total 6875 / 56923 4850 / 4850 Balance -6431 / -9106 -4250 / -4250 Lab / Micro Data 11/10/24 06:15 11/10/24 06:15 Social Homelessness:: Unsheltered Physical Exam Const alert, oriented x3 and no apparent distress Constitutional Narrative: Patient has class III obesity General Appearance: cooperative, well kempt and well developed Orientation / Consciousness: awake, oriented to person, oriented to place and oriented to time HEENT normocephalic, head/scalp atraumatic and moist oral mucous membranes Eyes PERRL, EOMs intact bilaterally and conjunctivae normal Neck supple, no JVD and thyroid normal General: trachea midline Resp normal respiratory effort, no retractions, no use of accessory muscles and clear to auscultation bilaterally Auscultation: Negative for rales, rhonchi or wheezes Cardio regular rate, regular rhythm, S1 normal heart sound, S2 normal heart sound, no murmurs, no rub and no gallops GI normal to inspection, nondistended, normoactive bowel sounds, soft to palpation, non-tender and non-distended Extremity Extremity Narrative: Generalized edema and stasis dermatitis changes are noted over both lower legs, there are bruised areas noted on the patient's heels bilaterally Skin General Skin Exam: no breakdown Neuro oriented x3, CN's II-XII intact bilaterally, moves all extremities, no focal motor deficits and no sensory deficits noted Sensorium / Orientation: awake and alert Speech: speech normal Psych affect normal Assessment & Plan Assessment/Plan (1) CHF (congestive heart failure): PLAN: Plan 1. Acute diastolic CHF-according to the patient, he has never had a diagnosis of CHF before, this rules out acute on chronic CHF. Patient will remain on IV Lasix at this time, echocardiogram showed preserved ejection fraction with no evidence of valvular heart disease and no evidence of pulmonary hypertension. #2 acute debility secondary #1 on a backdrop of class III obesity-PT and OT will continue to see the patient, he has consented to go to a skilled facility for short-term rehab services. #3 class III obesity-complicates care, management, recovery, and prognosis #4 essential hypertension-patient's losartan and hydrochlorothiazide was discontinued, he remains on Lasix drip for now, BMP will be rechecked tomorrow Total clinical time spent by myself addressing the patient's medical issues, reviewing all of his data, and collaborating with patient's care team: 35 minutes Charges/Coding Visit Charges Inpatient E&M: 96955 Subs Hosp L2
[2024-11-11] MEDS: Furosemide 500 MG in Empty Viaflex 50 mL 1 EACH CONT INF (20:48)
[2024-11-11] MEDS: 0.9% Saline Lock 10 ML Syringe IV (21:04)
--- NOTE | 2024-11-11 21:43 | NURSING ---
Verbal report received from Joselyn Parham RN. This RN assuming care at this time.
[2024-11-12] VITALS (7 sets, daily range): BP systolic 100–143; BP diastolic 41–99; PULSE 74–90; RESP 16–18; TEMP 36.4–37; O2SAT 92–95; BMI 71.3
--- NOTE | 2024-11-12 10:10 | CASEMGMT ---
Addendum entered by Aishwarya Webb 11/12/24 10:24: [facility] declined d/t pt exceeding weight limit. SW updated. Aishwarya Webb DC Planning Asst. Original Note: Discharge Planning SNF referral sent to [facility]. Aishwarya Webb DC Planning Asst.
[2024-11-12 10:18] LABS: Anion Gap 9 (5-15); BUN 13 mg/dL (4-19); BUN/Creat Ratio 14.0 RATIO (10-20); Calcium,Total 9.3 mg/dL (7.6-11.0); Carbon Dioxide 36.1 mmol/L (21.0-32.0); Chloride 95 mmol/L (98-108); Estimated Creatinine Clearance 176.11 ml/min (50-250); Glucose 113 mg/dL (70-99); Potassium 4.6 mmol/L (3.3-5.1)
--- NOTE | 2024-11-12 10:24 | CASEMGMT ---
Addendum entered by Aishwarya Webb 11/12/24 14:52: Pt has chosen another snf. [facility] asked to cancel referral. Aishwarya Webb DC Planning Asst. Addendum entered by Aishwarya Webb 11/12/24 11:52: [facility] has accepted. Aishwarya Webb DC Planning Asst. Original Note: Discharge Planning SNF referral sent to [facility]. Aishwarya Webb DC Planning Asst.
--- NOTE | 2024-11-12 10:27 | CASEMGMT ---
Addendum entered by Aishwarya Webb 11/12/24 14:52: [facility] has accepted and will submit for precert. SW updated. Aishwarya Webb DC Planning Asst. Original Note: Discharge Planning SNF referral sent to [facility]. Aishwarya Webb DC Planning Asst.
--- NOTE | 2024-11-12 10:39 | CASEMGMT ---
Social Work Pt had informed physician his choices are [facility], [facility] and [facility]. SW informed SW stylist assistant Aishwarya, and she will make referrals. GILBERTO Garcia
--- NOTE | 2024-11-12 15:30 | CASEMGMT ---
Social Work SW met w/pt, family friends in room. SW let pt know that [facility] cannot take pt, but [facility] can and started precert. Pt states understanding and is in agreement. SW will continue to follow. GILBERTO Garcia
--- NOTE | 2024-11-12 18:37 | PCM.PN.HOSP ---
Reason for Visit Chief Complaint: Worsening shortness of breath and lower extremity swelling Subjective Subjective Patient was seen and examined today, we are are awaiting approval for him to go to a skilled facility. Patient remains on room air at this time Objective Data Objective Data Vital Signs: Vital Signs Temp Pulse Resp BP Pulse Ox O2 Del Method O2 Flow Rate 98.6 F 88 18 139/99 H 93 Room Air 2 11/12/24 16:30 11/12/24 16:30 11/12/24 16:30 11/12/24 16:30 11/12/24 16:30 11/12/24 16:30 11/12/24 07:32 Oxygen Flow Rate (L/min) 2 Oxygen Delivery Method Room Air Weight: 225.5 kg Body Mass Index (BMI) 71.3 Intake & Output: Intake and Output for Last 24 Hours 11/10/24 11/11/24 11/12/24 23:59 23:59 23:59 Intake Total 444 / 1044 1470 / 1470 700 / 700 Output Total 6875 / 75747 5825 / 5825 2425 / 2425 Balance -6431 / -9106 -4355 / -4355 -1725 / -1725 Lab / Micro Data 11/10/24 06:15 11/12/24 09:33 Labs: Laboratory Results - last 24 hr 11/12/24 09:33: Sodium 140, Potassium 4.6, Chloride 95 L, Carbon Dioxide 36.1 H, Anion Gap 9, BUN 13, Creatinine 0.93, Estim Creat Clear Calc 176.11, Est GFR (MDRD) Non-Af 98, BUN/Creatinine Ratio 14.0, Glucose 113 H, Calcium 9.3 Social Homelessness:: Unsheltered Physical Exam Narrative alert, oriented x3 and no apparent distress Constitutional Narrative: Patient has class III obesity General Appearance: cooperative, well kempt and well developed Orientation / Consciousness: awake, oriented to person, oriented to place and oriented to time HEENT normocephalic, head/scalp atraumatic and moist oral mucous membranes Eyes PERRL, EOMs intact bilaterally and conjunctivae normal Neck supple, no JVD and thyroid normal General: trachea midline Resp normal respiratory effort, no retractions, no use of accessory muscles and clear to auscultation bilaterally Auscultation: Negative for rales, rhonchi or wheezes Cardio regular rate, regular rhythm, S1 normal heart sound, S2 normal heart sound, no murmurs, no rub and no gallops GI normal to inspection, nondistended, normoactive bowel sounds, soft to palpation, non-tender and non-distended Extremity Extremity Narrative: Generalized edema and stasis dermatitis changes are noted over both lower legs, there are bruised areas noted on the patient's heels bilaterally Skin General Skin Exam: no breakdown Neuro oriented x3, CN's II-XII intact bilaterally, moves all extremities, no focal motor deficits and no sensory deficits noted Sensorium / Orientation: awake and alert Speech: speech normal Psych affect normal Assessment & Plan Assessment/Plan (1) CHF (congestive heart failure): PLAN: Plan 1. Acute diastolic CHF-according to the patient, he has never had a diagnosis of CHF before, this rules out acute on chronic CHF. Patient will remain on IV Lasix at this time, echocardiogram showed preserved ejection fraction with no evidence of valvular heart disease and no evidence of pulmonary hypertension. #2 acute debility secondary #1 on a backdrop of class III obesity-PT and OT will continue to see the patient, he has consented to go to a skilled facility for short-term rehab services. #3 class III obesity-complicates care, management, recovery, and prognosis #4 essential hypertension-patient's losartan and hydrochlorothiazide was discontinued, he remains on Lasix drip for now Total clinical time spent by myself addressing the patient's medical issues, reviewing all of his data, and collaborating with patient's care team: 35 minutes Charges/Coding Visit Charges Inpatient E&M: 14868 Subs Hosp L2
[2024-11-13] VITALS (8 sets, daily range): BP systolic 123–141; BP diastolic 69–97; PULSE 65–94; RESP 16–19; TEMP 36.5–36.6; O2SAT 90–99; BMI 70.8
[2024-11-13] MEDS: Furosemide 500 MG in Empty Viaflex 50 mL 1 EACH CONT INF (04:54)
[2024-11-13] MEDS: 0.9% Saline Lock 10 ML Syringe IV ×2 (10:55→23:00)
--- NOTE | 2024-11-13 17:38 | PCM.PN.HOSP ---
Reason for Visit Chief Complaint: Worsening shortness of breath and lower extremity swelling Subjective Subjective Patient was seen and examined today, I stopped his Lasix drip and placed him on oral Lasix today. We are awaiting approval for the patient to go to a skilled facility for skilled services presently. Objective Data Objective Data Vital Signs: Vital Signs Temp Pulse Resp BP Pulse Ox O2 Del Method O2 Flow Rate 97.8 F 76 18 127/73 H 92 Room Air 92 11/13/24 10:55 11/13/24 10:55 11/13/24 10:55 11/13/24 10:55 11/13/24 13:10 11/13/24 10:55 11/13/24 13:06 Oxygen Flow Rate (L/min) 92 Oxygen Delivery Method Room Air Weight: 224 kg Body Mass Index (BMI) 70.8 Intake & Output: Intake and Output for Last 24 Hours 11/11/24 11/12/24 11/13/24 23:59 23:59 23:59 Intake Total 1470 / 1470 1060 / 1060 56.03 / 56.03 Output Total 5825 / 5825 3400 / 3400 2225 / 2225 Balance -4355 / -4355 -2340 / -2340 -2168.97 / -2168.97 Lab / Micro Data 11/10/24 06:15 11/12/24 09:33 Social Homelessness:: Unsheltered Physical Exam Narrative alert, oriented x3 and no apparent distress Constitutional Narrative: Patient has class III obesity General Appearance: cooperative, well kempt and well developed Orientation / Consciousness: awake, oriented to person, oriented to place and oriented to time HEENT normocephalic, head/scalp atraumatic and moist oral mucous membranes Eyes PERRL, EOMs intact bilaterally and conjunctivae normal Neck supple, no JVD and thyroid normal General: trachea midline Resp normal respiratory effort, no retractions, no use of accessory muscles and clear to auscultation bilaterally Auscultation: Negative for rales, rhonchi or wheezes Cardio regular rate, regular rhythm, S1 normal heart sound, S2 normal heart sound, no murmurs, no rub and no gallops GI normal to inspection, nondistended, normoactive bowel sounds, soft to palpation, non-tender and non-distended Extremity Extremity Narrative: Generalized edema and stasis dermatitis changes are noted over both lower legs, there are bruised areas noted on the patient's heels bilaterally Skin General Skin Exam: no breakdown Neuro oriented x3, CN's II-XII intact bilaterally, moves all extremities, no focal motor deficits and no sensory deficits noted Sensorium / Orientation: awake and alert Speech: speech normal Psych affect normal Assessment & Plan Assessment/Plan (1) CHF (congestive heart failure): PLAN: Plan 1. Acute diastolic CHF-according to the patient, he has never had a diagnosis of CHF before, this rules out acute on chronic CHF. Patient will remain on oral Lasix at this time, we are awaiting approval for the patient to go to a skilled facility for short-term rehab services. Patient is presently homeless #2 acute debility secondary #1 on a backdrop of class III obesity-PT and OT will continue to see the patient, he has consented to go to a skilled facility for short-term rehab services. #3 class III obesity-complicates care, management, recovery, and prognosis #4 essential hypertension-patient's losartan and hydrochlorothiazide was discontinued, he remains on oral Lasix #5 homelessness-complicates care, management, recovery, and prognosis Total clinical time spent by myself addressing the patient's medical issues, reviewing all of his data, and collaborating with patient's care team: 35 minutes Charges/Coding Visit Charges Inpatient E&M: 68661 Subs Hosp L2
[2024-11-14 03:00] VITALS: PULSE 65
[2024-11-14 04:03] VITALS: BMI 71.0
[2024-11-14 05:23] VITALS: BP 105/54; PULSE 86; RESP 15; TEMP 36.8; O2SAT 93
[2024-11-14 08:57] VITALS: BP 156/90; PULSE 78; RESP 16; TEMP 36.4; O2SAT 92
[2024-11-14 09:00] VITALS: PULSE 78
[2024-11-14] MEDS: Potassium Chloride Oral Tablet 20 MEQ PO (09:00)
[2024-11-14] MEDS: Metoprolol(XL)Succ 25 MG Tablet 12.5 MG PO (09:00)
--- NOTE | 2024-11-14 09:18 | PCM.PN.HOSP ---
Reason for Visit Chief Complaint: Worsening shortness of breath and lower extremity swelling Objective Data Objective Data Vital Signs: Vital Signs Temp Pulse Resp BP Pulse Ox O2 Del Method O2 Flow Rate 97.5 F L 78 16 156/90 H 92 Room Air 92 11/14/24 08:57 11/14/24 09:00 11/14/24 08:57 11/14/24 08:57 11/14/24 08:57 11/14/24 08:57 11/13/24 13:06 Oxygen Flow Rate (L/min) 92 Oxygen Delivery Method Room Air Weight: 494 lb 15.004 oz Body Mass Index (BMI) 71.0 Intake & Output: Intake and Output for Last 24 Hours 11/12/24 11/13/24 11/14/24 23:59 23:59 23:59 Intake Total 1060 / 1060 476.03 / 476.03 Output Total 3400 / 3400 2900 / 2900 1300 / 1300 Balance -2340 / -2340 -2423.97 / -2423.97 -1300 / -1300 Lab / Micro Data 11/10/24 06:15 11/12/24 09:33 Social Homelessness:: Unsheltered Physical Exam Narrative The patient has generalized swelling over her lower extremities. Patient was sleeping and got awake. No acute chest pain or shortness of breath. Physical exam: General: Alert, Oriented x3, Cooperative. Morbid obesity BMI 71.0 kg/m?. HEENT: Atraumatic, PERRLA, EOMI, Normocephalic. Oral: Deep oropharyngeal structures could not be seen Neck: Supple, No JVD, Negative Carotid Bruits Chest wall/Lungs: Air entry diminished in bilateral lung bases. No crepitation/rhonchi Cardiovascular: Regular rate and rhythm, Normal S1,S2, No M/G/R Abdomen: Bowel Sounds Present, Soft, Non Tender, Non-Distended : No dysuria. No renal angle tenderness. No suprapubic tenderness. Extremities: Bilateral lower extremity edema Skin: right heel tenderness with corn Musculoskeletal: No Tenderness to Palpation of Joints or Extremities Neurological: Cranial nerves II-XII grossly intact, DTR 2+/4. No acute focal neurological deficit. Psych/Mental Status: Flat affect Assessment & Plan Assessment/Plan (1) CHF (congestive heart failure): PLAN: Plan 1. Acute diastolic CHF-according to the patient, he has never had a diagnosis of CHF before, this rules out acute on chronic CHF. Patient will remain on oral Lasix at this time, we are awaiting approval for the patient to go to a skilled facility for short-term rehab services. Patient is presently homeless #2 acute debility secondary #1 on a backdrop of class III obesity-PT and OT will continue to see the patient, he has consented to go to a skilled facility for short-term rehab services. #3 class III obesity-complicates care, management, recovery, and prognosis #4 essential hypertension-patient's losartan and hydrochlorothiazide was discontinued, he remains on oral Lasix #5 homelessness-complicates care, management, recovery, and prognosis Total clinical time spent by myself addressing the patient's medical issues, reviewing all of his data, and collaborating with patient's care team: 35 minutes
--- NOTE | 2024-11-14 10:09 | CASEMGMT ---
Discharge Planning Updates sent to [facility]. [facility] remains pending. Aishwarya Webb DC Planning Asst.
[2024-11-14] MEDS: HYDROcodone Bitartrate/Apap 5/325 Tablet PO (14:49)
[2024-11-14 15:01] VITALS: BP 141/77; PULSE 77; RESP 16; TEMP 36.4; O2SAT 91
[2024-11-14 15:11] VITALS: O2SAT 94
--- NOTE | 2024-11-14 15:38 | CASEMGMT ---
Discharge Planning [facility] has obtained auth to admit. SW updated. Aishwarya Webb DC Planning Asst.
--- NOTE | 2024-11-14 15:39 | PCM.TXEXTCAR ---
Diet Diet Order/Speech Therapy: INPATIENT Hospital Diet / Speech Therapy Order(s) 11/10/24 00:51 Diet: Cardiac - Heart Healthy Food consistency:: Regular Liquid Consistency:: Regular/Thin Routine Orders/Code Status Suppository Type: Dulcolax 10mg Suppository Frequency: Daily PRN DC O2, CPAP, BIPAP needs Home O2 Discharge instructions: No Wound(s) left aleman\: Wound Type: Stasis Ulcer Therapies Extremity Affected:: Bilateral Lower Physical Therapy: Eval and Treat Occupational Therapy: Eval and Treat Speech Therapy: Eval and Treat Problem/Diagnosis (1) CHF (congestive heart failure): Status: Acute Code(s): I50.9 - Heart failure, unspecified Plan 1. Acute diastolic CHF-according to the patient, he has never had a diagnosis of CHF before, this rules out acute on chronic CHF. Patient will remain on oral Lasix at this time, we are awaiting approval for the patient to go to a skilled facility for short-term rehab services. Patient is presently homeless #2 acute debility secondary #1 on a backdrop of class III obesity-PT and OT will continue to see the patient, he has consented to go to a skilled facility for short-term rehab services. #3 class III obesity-complicates care, management, recovery, and prognosis #4 essential hypertension-patient's losartan and hydrochlorothiazide was discontinued, he remains on oral Lasix #5 homelessness-complicates care, management, recovery, and prognosis Total clinical time spent by myself addressing the patient's medical issues, reviewing all of his data, and collaborating with patient's care team: 35 minutes Allergies/Procedures Done in Hospital Allergies No Known Allergies Allergy (Verified 11/09/24 22:03) Type of Care/Length of Stay Estimated LOS: Convalescent Care Less Than 30 days Type of Care Needed: Skilled Rehab Potential: Good Prognosis: Good Additional Orders/Day of Discharge Day of Discharge: 11/14/24 Dietary and Speech Recommendations Dietitian Recommendations/Changes: Adjust to cardiac diet. No medical history of diabetics. Will monitor weight trends. Discharge Plan Admission Admit Date/Time: 11/10/24 00:06 Primary Reason for Your Visit: Acute HFpEF Attending Provider: Francecso Montgomery Primary Care Provider: Juliana Cox Consulting Providers: Efraín Toledo; Adelso Paniagua Discharge Orders/Prescriptions Prescriptions: New furosemide 40 mg Tablet 40 mg PO BIDLX Qty: 0 0RF potassium chloride 20 mEq Tablet,Er Particles/Crystals 20 meq PO DAILYCM Qty: 0 0RF metoprolol succinate 25 mg Tablet Extended Release 24 Hr 25 mg PO DAILY Qty: 0 0RF losartan 50 mg tablet 50 mg PO DAILY 30 Days Qty: 30 1RF Continued nicotine 14 mg/24 hr Patch 24 Hour 14 mg transdermal DAILY 28 Days Qty: 28 0RF albuterol sulfate 90 mcg/actuation aerosol powdr breath activated 1 inh inhalation Q6H PRN (Reason: shortness of breath) Discontinued chlorthalidone 50 mg Tablet 12.5 mg PO DAILY 30 Days Qty: 8 0RF losartan-hydrochlorothiazide 50-12.5 mg tablet 1 tab PO DAILY Referrals / Follow Up: Juliana Cox DO [Primary Care Provider] - Care Physician,No Primary [Non-Staff] - Disposition Disposition (needs filled in before D/C Order can be placed): Home, Self Care
--- NOTE | 2024-11-14 15:47 | PCM.DC.SUM ---
Providers Date of Admission: 11/10/24 Date of Discharge: 11/14/24 Primary Care Physician: Dr. Juliana Cox, Reason For Visit: CHF EXACERBATION W/ HYPOXIA Diagnosis Discharge Diagnosis (1) CHF (congestive heart failure): Status: Acute Code(s): I50.9 - Heart failure, unspecified Plan 53-year-old gentleman being admitted for bilateral leg swelling that started about 1 and half weeks ago along with bilateral heel pain and low back pain and shortness of breath. He was admitted in PCU and found to have heart failure as described below 1. Acute diastolic CHF: This is a new diagnosis for the patient. The patient was started on IV Lasix which changed to oral Lasix. Heart failure core measures including intake and output, daily weight monitoring, kidney and electrolytes monitoring. Patient discharged on furosemide 40 mg p.o. twice daily. Patient is homeless. Pre-CERT approved and going to rehab today #2. Acute debility secondary super morbid obesity, BMI 71.0 kg/m?:-PT and OT. SNF. #3 Super morbid obesity-complicates care, management, recovery, and prognosis #4 essential hypertension-patient on losartan/HCTZ at home. HCTZ discontinued. Patient BP 141/77, 156/90, fluctuates. Losartan 50 mg daily started and discharged on them. #5 homelessness-complicates care, management, recovery, and prognosis Discharge medication reconciliation done. Discharge follow-up instructions completed. Discharge process discussed with the patient and all questions were answered to patient's satisfaction. Follow with PCP in 1 to 2 weeks Total time spent, exact 35 minutes on discharge meds reconciliation, examination, coordination of care with nurses and ancillary staff, review of imaging and blood test and discussion with the patient on follow-up instructions. 2D echo 11/10/2024 Interpretation Summary The LV ejection fraction is 55 %. Normal left atrium. Normal right ventricular systolic function Left ventricular systolic function is normal. Medications at Discharge Home Medications nicotine 14 mg/24 hr daily transdermal patch 14 mg transdermal DAILY 4 weeks #28 ea 09/08/24 albuterol sulfate 90 mcg/actuation breath activated powder inhaler 1 inh inhalation Q6H PRN shortness of breath 11/09/24 furosemide 40 mg tablet 40 mg PO BIDLX #0 tabs 11/14/24 losartan 50 mg tablet 50 mg PO DAILY 1 month #30 tabs 11/14/24 metoprolol succinate 25 mg tablet,extended release 24 hr 25 mg PO DAILY #0 tabs 11/14/24 potassium chloride 20 mEq tablet,extended release(part/cryst) 20 meq PO DAILYCM #0 tabs 11/14/24 Physical Exam Narrative Seen and examined Patient is morbidly obese. Was sleeping in the morning then woke up. Still has leg swelling but improved Physical exam General: Alert, Oriented x3, Cooperative HEENT: Atraumatic, PERRLA, EOMI, Normocephalic. Oral: Deep pharynx history could not be evaluated. Thick and white neck Neck: Supple, No JVD, Negative Carotid Bruits Chest wall/Lungs: Air entry diminished in bilateral lung bases. No crepitation/rhonchi Cardiovascular: Regular rate and rhythm, Normal S1,S2, No M/G/R Abdomen: Bowel Sounds Present, Soft, Non Tender, Non-Distended : No dysuria. No renal angle tenderness. No suprapubic tenderness. Extremities: 2+ bilateral pitting below knee edema, Capillary Refill Less than 3 Seconds Skin: No rashes, No breakdown Musculoskeletal: No Tenderness to Palpation of Joints or Extremities Neurological: Cranial nerves II-XII grossly intact, DTR 2+/4. No acute focal neurological deficit. Psych/Mental Status: Normal Affect, Appropriate. Medical Records Data Homelessness:: Unsheltered Weight / BMI Weight Weight: 494 lb 15.004 oz Body Mass Index (BMI) 71.0 ABG / Lab / Microbiology Data 11/10/24 06:15 11/12/24 09:33 D/C Instructions DC O2, CPAP, BIPAP Needs Home O2 Discharge instructions: No Meaningful Use Info Meaningful Use Meaningful Use Diagnoses (Choose all that apply): CHF CHF FLAQUITO/ARB ordered at discharge?: Yes Documented LVEF (%): 55 Discharge Plan Admission Admit Date/Time: 11/10/24 00:06 Primary Reason for Your Visit: Acute HFpEF Attending Provider: Francesco Montgomery Primary Care Provider: Juliana Cox Consulting Providers: Efraín Toledo; Adelso Paniagua Discharge Orders/Prescriptions Prescriptions: New furosemide 40 mg Tablet 40 mg PO BIDLX Qty: 0 0RF potassium chloride 20 mEq Tablet,Er Particles/Crystals 20 meq PO DAILYCM Qty: 0 0RF metoprolol succinate 25 mg Tablet Extended Release 24 Hr 25 mg PO DAILY Qty: 0 0RF losartan 50 mg tablet 50 mg PO DAILY 30 Days Qty: 30 1RF Continued nicotine 14 mg/24 hr Patch 24 Hour 14 mg transdermal DAILY 28 Days Qty: 28 0RF albuterol sulfate 90 mcg/actuation aerosol powdr breath activated 1 inh inhalation Q6H PRN (Reason: shortness of breath) Discontinued chlorthalidone 50 mg Tablet 12.5 mg PO DAILY 30 Days Qty: 8 0RF losartan-hydrochlorothiazide 50-12.5 mg tablet 1 tab PO DAILY Referrals / Follow Up: Juliana Cox DO [Primary Care Provider] - Care Physician,No Primary [Non-Staff] - Se Walsh MD [Med Staff - Active Staff] - Within 1 Month Disposition Disposition (needs filled in before D/C Order can be placed): Home, Self Care Charges/Coding Visit Charges Inpatient E&M: 71685 Disch Hosp >30min
--- NOTE | 2024-11-14 16:02 | CASEMGMT ---
Social Work Precert has been obtained for pt to go to [facility]. Physician notified and pt is ready for discharge today. [address] [place] [address] exemption form completed in [facility]. DC front desk assistant updated and to complete discharge. Disposition: [facility], skilled level of care under convalescent stay DARLEEN Hardin
--- NOTE | 2024-11-14 16:16 | CASEMGMT ---
Discharge Planning Discharge orders, signed med list, and transport time sent to [facility]. Physicians will transport pt by wheelchair at 4:30p. Nursing, SW, and pt updated. Pt states that he will contact his EC (Jose). Aishwarya Webb DC Planning Asst.
--- NOTE | 2024-11-14 16:27 | NURSING ---
Report called to [facility]
== END 2024-11-14 17:00 | disposition skilled nursing facility (03) | DRG 291 ==
LOC: ED 11-10 00:09 → PCU 11-10 00:33
PROVIDERS: Internal Medicine; Admitting Provider Hospitalist; Emergency Provider Emergency Medicine; PCP Student in an Organized Health Care Education/Training Program; Visit Provider Internal Medicine
DX: I11.0 Hypertensive heart disease with heart failure (principal); I50.31 Acute diastolic (congestive) heart failure; Z59.02 Unsheltered homelessness; Z68.45 Body mass index [BMI] 70 or greater, adult; Z99.81 Dependence on supplemental oxygen; J44.9 Chronic obstructive pulmonary disease, unspecified; G47.33 Obstructive sleep apnea (adult) (pediatric); F17.210 Nicotine dependence, cigarettes, uncomplicated; Z90.49 Acquired absence of other specified parts of digestive tract; R60.0 Localized edema; R09.02 Hypoxemia; R53.81 Other malaise; Z79.899 Other long term (current) drug therapy; E66.813 Obesity, class 3
CPT/HCPCS: 36415; 71045; 72110; 73630; 80048; 83880; 85025; 85027; 93005; 93308; 94668; 97116; 97162; 97165; 97530; 97535; 99285; Q9957; A4216; C8924; J1938

== ENCOUNTER 2024-12-14 21:11 | Emergency (ER) | payer BC, MEDICAID, SELFPAY ==
[2024-12-14 21:12] VITALS: BP 149/64; PULSE 69; RESP 16; TEMP 36.7; O2SAT 91; BMI 72.7
[2024-12-14 21:14] VITALS: BP 149/64; PULSE 69; RESP 16; TEMP 36.7; O2SAT 94
--- OUTSIDE RECORDS SUMMARY | 2024-12-14 21:56 | XMS RPT_ITS | CCD ---
Author Organization [facility] Care Team Providers Care Automotive Quality Manager Name Role Phone MD LD GIMENEZ Primary Care Provider MD NELLY DIMAS Emergency Provider MD AIDE MONREAL Other Provider Unavailable MD ALLA HERNANDEZ Admit Provider MD ALLA HERNANDEZ Attending Provider [phone] AIDE MONREAL Consulting Unavailable ALLA HERNANDEZ Admitting Unavailable ALLA HERNANDEZ Attending Unavailable DL GIMENEZ Primary Care Unavailable JOSE, ANSON Attending [...] Primary Care Unavailable CUMMINS, CANELO Admitting Unavailable ARI, HUMERA H Consulting Unavailable MEDONE, SERVICE Attending Unavailable LIZBETH DON Consulting Unavailable PCP, NONE Primary Care Unavailable DEEPAK, SHAWNA Attending Unavailable DEEPAK, SHAWNA Referring Unavailable MEDONE, SERVICE Admitting Unavailable Pcp, None Primary Care Provider Unavailabl e Care Physician, No Primary Primary Care Provider Unavailable Dr. Jim Cortes DO Emergency Provider Dr. Isma Schneider DO Admit Provider Unavail able Dr. Isma Schneider DO Other Provider Unavail able Dr. Ferny Coats DO Attending Provider Jorge L ROSA, Dr. Isaacs Other Provider Grzegorz PETTIT, Dr. Soni Emergency Provider de Nicholas DO, Dr. Monreal Attending Provider Unav bandarable Ulises PETTIT, Dr. Maya Attending Provider Janay PETTIT, Dr. Isaacs Attending Provider Ulises PETTIT, Dr. Maya Other Provider Care Physician, No Primary Primary Care Provider Unavailable de Nicholas DO, Dr. Monreal Admit Provider Unavail able de Nicholas DO, Dr. Monreal Other Provider Unavail able de Nicholas ROSA, Dr. Monreal Referring Provider Unav ivet Steiner DO, Dr. Willett Emergency Provider Brooke ROSA, Dr. Juliana Pagan Primary Care Provider Tre ROSA, Dr. Kenny Admit Provider [phone] Tre ROSA, Dr. Kenny Attending Provider Tre ROSA, Dr. Kenny Other Provider Siva ROSA, Dr. Darden Other Provider Siva ROSA, Dr. Darden Attending Provider Juliana Cox Primary Care Unavailable Efraín Toledo Admitting Unavailable Efraín Toledo Attending Unavailable Efraín Toledo Consulting Unavailable Isma Schneider Admitting Unavailable de Isma Peterson Attending Unavailable de Isma Peterson Consulting Unavailable Care Physician, No Primary Primary Care Unava ilable Adelso Paniagua Attending Unavailable Adelso Paniagua Consulting Unavailable Juliana Cox Primary Care Unavailable Efraín Toledo Consulting Unavailable Francesco Montgomery Attending Unavailable Efraín Toledo Admitting Unavailable Adelso Paniagua Consulting Unavailable Julia OUTBOUND SALES CONSULTANT, Ray E Attending Unavailabl e Care Physician, No Primary Primary Care Unava ilable Isma Parkinson Referring Unavailable Care Physician, No Primary Primary Care Unava ilable Julia OUTBOUND SALES CONSULTANT, Ray Perez Attending Unavailerika e Isma Parkinson Referring Unavailable de Isma Peterson Admitting Unavailable de NicholasIsma preciado Consulting Unavailable Francesco Montgomery Attending Unavailable Care Physician, No Primary Primary Care Unava ilable Francesco Montgomery Consulting Unavailable Francesco Montgomery Attending Unavailable Francesco Montgomery Consulting Unavailable Irena Pérez Consulting Unavailable Irena Pérez Admitting Unavailable Isma Parkinson Attending Unavailable Care Physician, No Primary Primary Care Unava ilable Isma Parkinson Consulting Unavailable Ferny Coats Attending Unavailable Ferny Coats Consulting Unavailable Isma Schneider Attending Unavailable Irena Pérez Attending Unavailable Julia OUTBOUND SALES CONSULTANT, Ray Perez Attending UnavailIsma Carolina Referring Unavailable Care Physician, No Primary Primary Care Unava ilable Isma Schneider Admitting Unavailable Isma Schneider Consulting Unavailable Francesco Montgomery Attending Unavailable Care Physician, No Primary Primary Care Unava ilable Kareem Rizzo Attending Unavailable Care Physician, No Primary Primary Care Unava ilable Irena Pérez Consulting Unavailable Irena Pérez Admitting Unavailable Isma Parkinson Attending Unavailable Care Physician, No Primary Primary Care Unava ilable Isma Schneider Consulting Unavailable Ferny Coats Attending Unavailable Isma Schneider Admitting Unavailable Care Physician, No Primary Primary Care Unava ilable Juliana Cox Primary Care Unavailable Kallie Amin Attending Unavailable Adelso Paniagua Referring Unavailable Isma Schneider Referring Unavailable Ferny Gustafson Attending Unavailable Care Physician, No Primary Primary Care Unava ilable Julia OUTBOUND SALES CONSULTANT, Ray E Consulting Unavailerika e Julia OUTBOUND SALES CONSULTANT, Ray E Attending Unavailabl e Care Physician, No Primary Primary Care Unava ilable Isma Parkinson Referring Unavailable Julia OUTBOUND SALES CONSULTANT, Ray E Attending Unavailabl e Julia OUTBOUND SALES CONSULTANT, Ray E Consulting Unavailabl e Julia OUTBOUND SALES CONSULTANT, Ray E Referring Unavailabl e Care Physician, No Primary Primary Care Unava ilable Medications Current Medications Medication Drug Class(es) Dates Sig (Normalized) Sig (Original) 200 actuat albuterol 0.09 mg/actuat dry powder inhaler (5 sources) beta2-Adrenergic Agonist Start: 09-08-2024 End: 11-09-2024 Albuterol Sulfate 90 mcg/actuation aerosol powdr breath activated Active 1 NMA INHALATION EVERY 6 HOURS as needed for shortness of breath November 09, 2024 12:00am azithromycin 250 mg oral tablet [...] PO Q6H 12 May 21, 2022 1:31pm furosemide 40 mg oral tablet (8 sources) Loop Diuretic Start: 11-14-2024 take 1 tablet by mouth twice daily Furosemide 40 mg Tablet Active 40 mg PO TWICE DAILY 0 November 14, 2024 12:00am Start: 12-25-2023 End: 06-13-2024 take 1 tablet by mouth once daily Furosemide (Lasix) 4 0 mg tablet Discontinued 40 mg PO DAILY 60 0 December 25, 2023 12:00am June 14, 2024 12:38am Start: 11-24-2023 take 40 mg intraveno usly every twenty-four hours 40 mg, IV Push, EVERY 24 HOURS SCHEDULED (Daily), First dose on Tue11/24/23 at 1245, Until Discontinued, Caution: This medication [...] medication looks and/or sounds like another medication. losartan potassium 50 mg oral tablet (1 source) Angiotensin 2 Receptor Christine Start: 11-14-2024 take 1 tablet by mouth once daily Losartan 50 mg tablet Active 50 mg PO DAILY 30 30 November 14, 2024 12:00am 24 hr metoprolol succinate 25 mg extended release oral tablet (1 source) beta-Adrenergic Christine Start: 11-14-2024 take 1 tablet by mouth once daily Metoprolol Succinate 25 mg Tablet Extended Release 24 Hr Active 25 mg PO DAILY 0 November 14, 2024 12:00am Naproxen (1 source) Nonsteroidal Anti-inflammatory Drug Naproxen Sodium (ALEVE PO) Take by mouth. Active 24 hr nicotine 0.583 mg/hr transdermal system (5 sources) Cholinergic Nicotinic Agonist Start: 09-08-2024 apply 1 dose transdermal route every twenty-four hours Nicotine 14 mg/24 hr Patch 24 Hour Active 14 mg TD DAILY 28 28 September 08, 2024 12:00am Start: 11-22-2023 apply 1 dose transde rmal route every twenty-four hours 1 patch (21 mg), Transdermal, EVERY 24 HOURS SCHEDULED (Daily), First dose on Tue11/22/23 at 1745, Until Discontinued Start: 11-22-2023 4 mg, Oral, PA N, Smoking cessation, Starting on Tue11/22/23 at 1713, Until Discontinued, Caution: Do not crush or chew. [place]om (Nk) (1 source) Start: 06-13-2024 [place] (Nk) A ctive June 13, 2024 1:00am Ondansetron (ZOFRAN-ODT) disintegrating tablet 4 mg (1 source) Start: 11-22-2023 take 1 tablet by mouth every six hours as needed Ondansetron (ZOFRAN-ODT) disintegrating tablet 4 mg microencapsulated potassium chloride 20 meq extended release oral tablet (4 sources) Start: 11-14-2024 take 1 tablet by mouth once daily at mealtime Potassium Chloride 20 mEq Tablet,Er Particles/Crystals Active 20 meq PO DAILY WITH MEALS 0 November 14, 2024 12:00am Start: 11-23-2023 End: 11-24-2023 40 mEq, Oral, ONCE, 1 dose, On Tue11/24/23 at 0715, If potassium level 3.4-3.6 Repeat potassium in AM Start: 11-22-2023 End: 11-22-2023 take 4-5 [oz_av] by mouth at mealtime 40 mEq, Oral, NOW, 1 dose, On Tue11/22/23 at 1530, Mix in 4-5 oz water or beverage - Take with food silver sulfADIAZINE 10 mg/ml topical cream (2 sources) Sulfonamide Antibacterial Start: 11-26-2023 silver sulfADIAZINE (SILVADENE) 1 % cream Apply topically two times a day. 50 g 11/26/2023 Active Completed/Discontinued Medications Medication Drug Class(es) Dates Sig (Normalized) Sig (Original) acetaminophen 325 mg oral tablet (5 sources) Start: 12-25-2023 End: 12-28-2023 Acetaminophen 325 mg Tablet Discontinued 650 mg PO EVERY 6 HOURS NEEDED as needed for Pain 1-10 Or Fever >100.7 0 0 December 25, 2023 12:00am December 28, [...] mg / clavulanate 125 mg oral tablet (4 sources) Penicillin-class Antibacterial Start: 12-28-2023 End: 06-13-2024 Amoxicillin-Pot Clavulanate 875-125 mg tablet Discontinued 1 {tbl} PO TWICE A DAY 20 10 0 December 28, 2023 12:00am June 14, 2024 12:38am [...] 1530, NOW, 1 dose, Indications: Wound Infection chlorthalidone 50 mg oral tablet (3 sources) Thiazide-like Diuretic Start: 09-08-2024 End: 11-14-2024 Chlorthalidone 50 mg Tablet Discontinued 12.5 mg PO DAILY 8 30 0 September 08, 2024 12:00am November 14, 2024 3:43pm ciprofloxacin 500 mg oral tablet (10 sources) [...] 04, 2013 11:00pm January 11, 2013 11:47am 12 hr dextromethorphan hydrobromide 60 mg / guaiFENesin 1200 mg extended release oral tablet (3 sources) Uncompetitive P-jhqeqr-Z-aspartate Receptor Antagonist, Sigma-1 Agonist Start: 09-08-2024 End: 11-10-2024 take 60-1200 mg by mouth every twelve hours Dextromethorphan-Guaifenesin (Mucinex Dm) 60-1,200 mg tablet extended release 12 hr Discontinued 1 {tbl} PO Q12H 14 7 0 September 08, 2024 12:00am November 10, 2024 1:11am doxycycline hyclate 100 mg oral tablet (4 sources) Tetracycline-class Drug Start: 12-25-2023 End: 06-13-2024 take 1 tablet by mouth twice daily Doxycycline Hyclate 100 mg tablet Discontinued 100 mg PO TWICE A DAY 14 December 25, 2023 12:00am June 14, 2024 12:38am 0.6 ml enoxaparin sodium 100 mg/ml prefilled syringe (1 source) Low Molecular Weight Heparin Start: 11-22-2023 inject 1 dose by subcutan eous injectio n twice daily as needed 60 mg, Subcutaneous, [...] subsequent to initial labs (refer to the [facility] Electrolyte Replacement Orders) (1 source) Start: 11-22-2023 Other, PRN, For electrolyte abnormalities, Starting on Tue11/22/23 at 1713, Until Discontinued, For Potassium level hydroCHLOROthiazi de 12.5 mg / losartan potassium 50 mg oral tablet (2 sources) Thiazide Diuretic, Angiotensin 2 Receptor Christine Start: 11-09-2024 End: 11-14-2024 Losartan-Hydrochlorothiazide 50-12.5 mg tablet Discontinued 1 {tbl} PO DAILY November 09, 2024 12:00am November 14, 2024 3:42pm BP 0.5 ml HYDROmorphone hydrochloride 1 mg/ml prefilled syringe (1 source) Opioid Agonist Start: 11-24-2023 End: 11-24-2023 take 0.5 mg intraven ously once 0.5 mg, IV Push, ONCE, 1 dose, On Magaly 11/24/23 at 1215, Caution: This medication looks and/or sounds like another medication. lisinopril 20 mg oral tablet (3 sources) Angiotensin Converting Enzyme Inhibitor Start: 09-08-2024 End: 11-10-2024 take 1 tablet by mouth once daily Lisinopril 20 mg Tablet Discontinued 20 mg PO DAILY 30 30 0 September 08, 2024 12:00am November 10, 2024 1:10am melatonin 3 mg oral tablet (1 source) [...] MG PO Q6H June 27, 2013 9:17pm Rosie 19th, 2023 11:52pm oxyCODONE hydrochloride 5 mg oral tablet [...] 0924, Until Tue11/23/23 at 0929, Created by cabinet override Perflutren Lipid Microsphere (DEFINITY) injection 1.3 mL (1 source) Start: 11-23-2023 End: 11-23-2023 1.3 mL, IV Push, ONCE, 1 dose, On Tue11/23/23 at 1000, Mix 1.3ml with 8.7ml NaCl for IV injection., Radiology polyethylene glycol 3350 64289 mg powder for oral solution (1 source) Osmotic Laxative Start: 11-22-2023 take 17 g by mouth every twenty-four hours as needed 17 g, Oral, DAILY PRN, Constipation, constipation, Starting on Tue11/22/23 at 1713, Until Discontinued, This is a maintenance laxative, begin for prevention of constipation. predniSONE 20 mg oral tablet (13 sources) Start: 09-08-2024 End: 11-09-2024 take 2 tablets by mouth once daily Prednisone 20 mg tablet Discontinued 40 mg PO DAILY 10 5 September 08, 2024 12:00am November 09, 2024 10:12pm Start: 05-21-2022 Prednisone Act manny 0 MG PO As Per Instructions 13 02May 21, 2022 12:00am take one tablet by mouth twice daily for 5 days then take one tablet by mouth daily for 5 days then stop. Start: 01-05-2013 End: 01-11-2013 take 1 tablet by mouth twice daily Prednisone (Prednisone 2o Mg Tablet) 20 MG Tablet Discontinued 20 MG PO Two Times A Day January 04, 2013 11:00pm January 11, 2013 11:47am Unna-Flex Elastic Unna Boot 4x10 yards ex misc 1 Application (1 source) Start: 11-24-2023 End: 11-26-2023 1 Application, Topical, KEYON Y, First dose on Magaly 11/24/23 at 0900, Until Discontinued, After applying Aquacel [...] 11-22-2023 05-20-2022 Chronic Chronic ulcer of skin (14 sources) Non-pressure chronic ulcer of other part of left lower leg with unspecified severity; Translations: [Non-pressure chronic ulcer of other part of right lower leg with unspecified severity] Onset: 11-22-2023 12-28-2023 Chronic Congestive heart failure; nonhypertensive (17 sources) Heart failure, unspecified; Translations: [Unspecified diastolic (congestive) heart failure] Onset: 11-22-2023 Resolved: 11-26-2023 11-22-2023 Chronic Hypertension with complications and secondary hypertension (1 source) Hypertensive heart disease with heart failure; Translations: [Hypertensive heart disease with heart failure] Onset: 11-23-2024 Chronic Immunizations and screening for infectious disease (10 sources) Suspected disease caused by 2019-nCoV; Translations: [Person under investigation for COVID-19] 05-20-2022 Episodic Noninfectious gastroenteritis (5 sources) Gastroenteritis 05-21-2022 Episodic Nonspecific chest pain (10 sources) Chest discomfort; Translations: [Other chest pain] 05-20-2022 Episodic Other connective tissue disease (4 sources) Heel pain; Translations: [Pain in right foot] 11-10-2024 Episodic Other diseases of veins and lymphatics (1 source) Venous insufficiency (chronic) (peripheral); Translations: [Venous insufficiency (chronic) (peripheral)] Onset: 11-22-2023 Episodic Other hematologic conditions (4 sources) Erythrocytosis; Translations: [Secondary polycythemia] 01-02-2024 Episodic [...] Onset: 11-22-2023 Episodic Other lower respiratory disease (8 sources) Respiratory insufficiency; Translations: [Other abnormalities of breathing] 09-06-2024 Episodic Other lower respiratory disease (4 sources) Hypoxemia; Translations: [Hypoxemia] 09-06-2024 Episodic Other lower respiratory disease (4 sources) Dyspnea on exertion; Translations: [Other forms of dyspnea] 11-10-2024 Episodic Other lower respiratory disease (1 source) [...] Chronic Other nutritional; endocrine; and metabolic disorders (6 sources) Morbid obesity; Translations: [Morbid (severe) obesity due to excess calories] 06-22-2024 Chronic Other nutritional; endocrine; and metabolic disorders (8 sources) Body mass index 40+ - severely obese; Translations: [Morbid (severe) obesity due to excess calories] 09-06-2024 Chronic Other nutritional; endocrine; and metabolic disorders (8 sources) Alveolar hypoventilation; Translations: [Morbid (severe) obesity [...] conditions (not mental disorders or infectious disease) (19 sources) D-dimer above reference range; Translations: [Other specified abnormal findings of blood chemistry] Onset: 09-08-2024 05-20-2022 Episodic Other upper respiratory disease (6 sources) Stenosis of trachea; Translations: [Other specified diseases of upper respiratory tract] 09-06-2024 Episodic Other upper respiratory disease (1 source) Other specified diseases of upper respiratory tract; Translations: [Other specified diseases of upper respiratory tract] Onset: 09-08-2024 Episodic Peripheral and visceral atherosclerosis (4 sources) Peripheral vascular disease, unspecified; Translations: [Peripheral vascular disease] Onset: 11-22-2023 11-26-2023 Chronic Pneumonia (except that caused by tuberculosis or sexually transmitted disease) (9 sources) Pneumonia; Translations: [Pneumonia, unspecified organism] Onset: 09-08-2024 09-06-2024 Episodic Residual codes; unclassified (14 sources) Obstructive sleep apnea syndrome; Translations: [Obstructive sleep apnea (adult) (pediatric)] 09-06-2024 Chronic Residual codes; unclassified (1 source) Obstructive sleep apnea (adult) (pediatric); Translations: [Obstructive sleep apnea (adult) (pediatric)] Onset: 09-08-2024 Chronic Residual codes; unclassified (4 sources) Edema; Translations: [Edema, unspecified] 12-28-2023 Episodic Residual codes; unclassified (10 sources) Tobacco user; Translations: [Tobacco use] 09-06-2024 Episodic Residual codes; unclassified (4 sources) Bilateral lower limb edema; Translations: [Localized edema] 11-10-2024 Episodic Residual codes; unclassified (1 source) Localized edema; Translations: [Localized edema] Onset: 11-14-2024 Episodic Residual codes; unclassified (2 sources) Tobacco use; Translations: [Tobacco use] Onset: 01-31-2024 Episodic Respiratory failure; insufficiency; arrest (adult) (5 sources) Acute respiratory failure with hypoxia; Translations: [Acute respiratory failure] Onset: 11-22-2023 11-10-2024 Episodic Spondylosis; intervertebral disc disorders; other back problems (4 sources) Backache; Translations: [Dorsalgia, unspecified] 11-10-2024 Episodic Substance-related disorders (1 source) Nicotine dependence, cigarettes, uncomplicated; Translations: [Nicotine dependence, cigarettes, uncomplicated] Onset: 11-22-2023 Chronic Unclassified (3 sources) For sleep study, PFT. Possible OHS/SINA Past or Other Problems Problem Classification Problem Date Documented Date Episodic/Chronic Fluid and electrolyte disorders (6 sources) Hypokalemia; Translations: [Metabolic alkalosis] Onset: 11-22-2023 01-02-2024 Episodic Other diseases of veins and lymphatics (3 sources) Disorder of vein of lower extremity; Translations: [Venous insufficiency (chronic) (peripheral)] Onset: 11-25-2023 11-26-2023 Episodic Other hematologic conditions (1 source) Secondary polycythemia; Translations: [Secondary polycythemia] Onset: 12-25-2023 Episodic Other lower respiratory disease (1 source) Hypoxia; Translations: [Hypoxemia] 11-22-2023 Episodic Other upper respiratory infections (8 sources) Viral upper respiratory tract infection; Translations: [Acute upper respiratory infection, unspecified] Onset: 06-14-2024 06-14-2024 Episodic Residual codes; unclassified (2 sources) Edema, unspecified; Translations: [Edema, unspecified] Onset: 01-31-2024 Episodic Skin and subcutaneous tissue infections (13 sources) Cellulitis of left lower limb; Translations: [Cellulitis of right lower limb] Onset: 11-22-2023 11-22-2023 Episodic Results Test Name Value Interpretation Reference Range Facility Anion gap in Serum or Plasma Ordered By: Adelso Paniagua on 11-12-2024 Anion gap [Moles/Vol] 9 mmol/L 09-13 [facility] BUN/creatinine ratioOrdered By: Adelso Paniagua on 11-12-2024 Urea nitrogen/Creatinine [Mass ratio] 14.0 mg/mg - [facility] Basic Metabolic Profile (BMP )on 11-12-2024 BUN/CRE 14.0 RATIO Normal - [facility] Comment on above: Performed By: #### L 500.2500 ####[facility] [address] [place], [address] Calcium [Mass/Vol] 9.3 mg/dL Normal 7.6-11.0 [facility] Comment on above: Performed By: #### L 500.2500 ####[facility] [address] [place], [address] Chloride [Moles/Vol] 95 mmol/L Low 98-108 [facility] Comment on above: Performed By: #### L 500.2500 ####[facility] [address] [place], [address] CO2 [Moles/Vol] 36.1 mmol/L High 21.0-32.0 [facility] Comment on above: Performed By: #### L 500.2500 ####[facility] [address] [place], [address] Creatinine [Mass/Vol] 0.93 mg/dL Normal 0.70-1.20 [facility] Comment on above: Performed By: #### L 500.2500 ####[facility] [address] [place], [address] ECRCL 176.11 ml/min Normal 50-250 [facility] Comment on above: Performed By: #### L 500.2500 ####[facility] [address] [place], [address] GAP 9 Normal 5-15 [facility] Comment on above: Performed By: #### L 500.2500 ####[facility] [address] [place], [address] GFR/1.73 sq M.predicted among non-blacks MDRD (S/P/Bld) [Vol rate/Area] 98 mL/min/{1.73_m2} Normal >60 [facility] Comment on above: Result Comment: mL/m in/1.73m2 CKD-EPI Creatinine Equation (2020) Performed By: #### L 500.2500 ####[facility] [address] [place], [address] Glucose [Mass/Vol] 113 mg/dL High 70-99 [facility] Comment on above: Performed By: #### L 500.2500 ####[facility] [address] [place], [address] Potassium [Moles/Vol] 4.6 mmol/L Normal 3.3-5.1 [facility] Comment on above: Performed By: #### L 500.2500 ####[facility] [address] [place], [address] Sodium [Moles/Vol] 140 mmol/L Normal 133-145 [facility] Comment on above: Performed By: #### L 500.2500 ####[facility] [address] [place], [address] Urea nitrogen [Mass/Vol] 13 mg/dL Normal 4-19 [facility] Comment on above: Performed By: #### L 500.2500 ####[facility] [address] [place], [address] Carbon dioxide, total [Moles /volume] in Central venous bloodOrdered By: Adelso Paniagua on 11-12-2024 CO2 [Moles/Vol] 36.1 mmol/L High 21.0-32.0 [facility] Chloride assayOrdered By: Chris Paniagua on 11-12-2024 Chloride [Moles/Vol] 95 mmol/L Low 98-108 [facility] Glomerular filtration rate ( GFR) estimation/1.73 sq m using serum, plasma, or whole bOrdered By: Adelso Paniagua on 11-12-2024 GFR/1.73 sq M.predicted among non-blacks MDRD (S/P/Bld) [Vol rate/Area] 98 mL/min/{1.73_m2} >60 [facility] Comment on above: mL/min/1.73m2 CKD-EP I Creatinine Equation (2020) Potassium measurement (mass/ volume)Ordered By: Adelso Paniagua on 11-12-2024 Potassium (Unsp spec) [Mass/Vol] 4.6 mmol/L 3.3-5.1 [facility] Serum creatinine measurement (mass/volume)Ordered By: Adelso Paniagua on 11-12-2024 Creatinine [Mass/Vol] 0.93 mg/dL 0.70-1.20 [facility] Serum glucose measurement (m ass/volume)Ordered By: Adelso Paniagua on 11-12-2024 Glucose [Mass/Vol] 113 mg/dL High 70-99 [facility] Serum or plasma calcium rosa urement (mass/volume)Ordered By: Adelso Paniagua on 11-12-2024 Calcium [Mass/Vol] 9.3 mg/dL 7.6-11.0 [facility] Serum or plasma urea nitroge n measurement (mass/volume)Ordered By: Adelso Paniagua on 11-12-2024 Urea nitrogen [Mass/Vol] 13 mg/dL 4-19 [facility] Sodium levelOrdered By: Adelso Paniagua on 11-12-2024 Sodium [Moles/Vol] 140 mmol/L 133-145 [facility] Basic Metabolic Profile (BMP )on 11-10-2024 BUN/CRE 15.5 RATIO Normal 10-20 [facility] Comment on above: Performed By: #### L 100.0500, L500.2500 ####[facility] [address] [place], [address] Calcium [Mass/Vol] 8.7 mg/dL Normal 7.6-11.0 [facility] Comment on above: Performed By: #### L 100.0500, L500.2500 ####[facility] [address] [place], [address] Chloride [Moles/Vol] 103 mmol/L Normal 98-108 [facility] Comment on above: Performed By: #### L 100.0500, L500.2500 ####[facility] [address] [place], [address] CO2 [Moles/Vol] 28.7 mmol/L Normal 21.0-32.0 [facility] Comment on above: Performed By: #### L 100.0500, L500.2500 ####[facility] [address] [place], [address] Creatinine [Mass/Vol] 0.68 mg/dL Low 0.70-1.20 [facility] Comment on above: Performed By: #### L 100.0500, L500.2500 ####[facility] [address] [place], [address] ECRCL 240.92 ml/min Normal 50-250 [facility] Comment on above: Performed By: #### L 100.0500, L500.2500 ####[facility] [address] [place], [address] GAP 9 Normal 5-15 [facility] Comment on above: Performed By: #### L 100.0500, L500.2500 ####[facility] [address] [place], [address] GFR/1.73 sq M.predicted among non-blacks MDRD (S/P/Bld) [Vol rate/Area] 112 mL/min/{1.73_m2} Normal >60 [facility] Comment on above: Result Comment: mL/m in/1.73m2 CKD-EPI Creatinine Equation (2020) Performed By: #### L 100.0500, L500.2500 ####[facility] [address] [place], [address] Glucose [Mass/Vol] 111 mg/dL High 70-99 [facility] Comment on above: Performed By: #### L 100.0500, L500.2500 ####[facility] [address] [place], [address] Potassium [Moles/Vol] 3.3 mmol/L Normal 3.3-5.1 [facility] Comment on above: Performed By: #### L 100.0500, L500.2500 ####[facility] [address] [place], [address] Sodium [Moles/Vol] 141 mmol/L Normal 133-145 [facility] Comment on above: Performed By: #### L 100.0500, L500.2500 ####[facility] [address] [place], [address] Urea nitrogen [Mass/Vol] 11 mg/dL Normal 4-19 [facility] Comment on above: Performed By: #### L 100.0500, L500.2500 ####[facility] [address] [place], [address] [facility] Erythrocyte distribution width (RBC) [Ratio] 14.5 % Normal 11.6-14.6 [facility] Comment on above: Performed By: #### L 100.0500, L500.2500 ####[facility] [address] [place], [address] Hematocrit (Bld) [Volume fraction] 44.6 % Normal 40-54 [facility] Comment on above: Performed By: #### L 100.0500, L500.2500 ####[facility] [address] [place], [address] Hemoglobin (Bld) [Mass/Vol] 14.3 g/dL Normal 13.0-16.5 [facility] Comment on above: Performed By: #### L 100.0500, L500.2500 ####[facility] [address] [place], [address] MCH (RBC) [Entitic mass] 28.9 pg Normal 27.0-32.0 [facility] Comment on above: Performed By: #### L 100.0500, L500.2500 ####[facility] [address] [place], [address] MCHC (RBC) [Mass/Vol] 32.1 g/dL Normal 32-36 [facility] Comment on above: Performed By: #### L 100.0500, L500.2500 ####[facility] [address] [place], [address] MCV (RBC) [Entitic vol] 90.1 fL Normal 80-94 [facility] Comment on above: Performed By: #### L 100.0500, L500.2500 ####[facility] [address] [place], [address] Platelet mean volume (Bld) [Entitic vol] 9.5 fL Normal 6.2-12.0 [facility] Comment on above: Performed By: #### L 100.0500, L500.2500 ####[facility] [address] [place], [address] Platelets (Bld) [#/Vol] 233 10*3/uL Normal 150-450 [facility] Comment on above: Performed By: #### L 100.0500, L500.2500 ####[facility] [address] [place], [address] RBC (Bld) [#/Vol] 4.95 10*6/uL Normal 4.6-6.2 [facility] Comment on above: Performed By: #### L 100.0500, L500.2500 ####[facility] [address] [place], [address] RDW SD 47.2 fl High 35.1-43.9 [facility] Comment on above: Performed By: #### L 100.0500, L500.2500 ####[facility] [address] [place], [address] WBC (Bld) [#/Vol] 7.2 10*3/uL Normal 4.4-11.0 [facility] Comment on above: Performed By: #### L 100.0500, L500.2500 ####[facility] [address] [place], [address] Echo Limited w/Contraston Echo Limited w/Contrast Normal [facility] Erythrocyte distribution wid th ratioOrdered By: Efraín Toledo on 11-10-2024 Erythrocyte distribution width (RBC) [Ratio] 14.5 % 11.6-14.6 [facility] Erythrocyte distribution wid th standard deviationOrdered By: Efraín Toledo on 11-10-2024 Erythrocyte distribution width (RBC) [Ratio] 47.2 fl High 35.1-43.9 [facility] H AND P Exam - Hospitaliston 11-10-2024 H&P Exam - Hospitalist Normal [facility] Hematocrit Auto (Bld) [Volum e fraction]Ordered By: Efraín Toledo on 11-10-2024 Hematocrit (Bld) [Volume fraction] 44.6 % 40-54 [facility] Hemoglobin measurementOrdere d By: Efraín Toledo on 11-10-2024 Hemoglobin (Bld) [Mass/Vol] 14.3 g/dL 13.0-16.5 [facility] Limited echocardiogram repor tOrdered By: Kallie Amin on 11-10-2024 Study report [facility] [address] [place] [address] Echo Limited w/Contrast 11/10/24 1044 MR#: [id number] Acct: [id number] Name: AZALIA MATTHEW II Rep #:[id number] : 1970 53 From: Kallie Hawkins Attending Dr: Dr. Adelso Paniagua DO Status: ADM IN Ordering Dr: Adelso Paniagua DO Date: 11/10/24 Location: [facility] Sex: M C Admitted: 11/10/24 Reason For Study Reason For Study: CONGESTIVE HEART FAILURE Procedure This was a 2D Doppler, Color Flow transthoracic echocardiogram. The patient was scanned supine. The study was technically difficult. Contrast injection was performed. Exam performed portablein patient room. Left Ventricle Normal left ventricle. Left ventricular systolic function is normal. The LV ejection fraction is 55 %. Normal diastology for age. No regional wall motion abnormalities noted. Right Ventricle Normal right ventricle. Normal systolic function. Atria Normal left atrium. Mitral Valve No mitral valve insufficiency. Tricuspid Valve Unable to estimate RV systolic pressure due to insufficient tricuspid regurgitant envelope. Aortic Valve The aortic valve is not well visualized in the short axis view. There is no aortic stenosis. Pulmonic Valve No eccentric pulmonic valve insufficiency. Great Vessels Normal sized aortic root. Pericardium/Pleural No pericardial effusion. Epicardial fat. Medication Diluted definity 6ml given slow IV push to enhance endocardial definition. MMode/2D Measurements & Calculations LVIDd: 4.9 cm IVSd: 1.5 cm LAV(MOD-sp4): 49.2 ml LVIDs: 3.1 cm LVPWd: 1.3 cm RVDd: 4.2 cm FS: 36.3 % LVAd ap4: 34.4 cm2 LVAd ap2: 32.7 cm2 SV(MOD-sp4): 63.9 ml LVLd ap4: 8.8 cm LVLd ap2: 8.2 cm SI(MOD-sp4): 20.8 ml/m2 EDV(MOD-sp4): 112.0 ml EDV(MOD-sp2): 101.8 ml EDV(sp4-el): 114.5 ml EDV(sp2-el): 110.7 ml LVAs ap4: 21.7 cm2 LVAs ap2: 20.0 cm2 LVLs ap4: 8.1 cm LVLs ap2: 7.4 cm ESV(MOD-sp4): 48.1 ml ESV(MOD-sp2): 44.6 ml ESV(sp4-el): 49.5 ml ESV(sp2-el): 45.9 ml EF(MOD-sp4): 57.0 % EF(MOD-sp2): 56.2 % EF(sp4-el): 56.7 % SV(MOD-sp2): 57.2 ml SV(sp4-el): 64.9 ml LA A4 area: 18.3 cm2 SI(MOD-sp2): 18.6 ml/m2 RA A4 area: 17.2 cm2 TAPSE: 2.1 cm Time Measurements MV dec time: 0.16 sec Doppler Measurements & Calculations MV E max eliazar: 80.0 cm/sec Lat Peak E' Eliazar: 14.1 cm/sec Med Peak E' Eliazar: 10.5 cm/sec MV A max eliazar: 59.7 cm/sec E/E' lat: 5.7 E/E' med: 7.6 MV E/A: 1.3 MV dec slope: 485.8 cm/sec2 ECHO/Echo Limited w/Contrast Interpretation Summary The LV ejection fraction is 55 %. Left ventricular systolic function is normal. Ordering Physician: Adelso Paniagua Performed By: Sadie Dobson RDCS 11/10/24 1437 Date _ Kallie Amin MD CC: Dr. Juliana Cox, DO; Dr. Adelso Paniagua, DO ~ Date Dictated: 11/10/24 1044 Date Transcribed: 11/10/24 1437 [employer] Winder: Signed [facility] MCV (mean corpuscular volume ) determinationOrdered By: Efraín Toledo on 11-10-2024 MCV (RBC) [Entitic vol] 90.1 fL 80-94 [facility] Mean corpuscular hemoglobin (MCH) determinationOrdered By: Efraín Toledo on 11-10-2024 MCH (RBC) [Entitic mass] 28.9 pg 27.0-32.0 [facility] Mean corpuscular hemoglobin concentration (MCHC) determinationOrdered By: Efraín Toledo on 11-10-2024 MCHC (RBC) [Mass/Vol] 32.1 g/dL 32-36 [facility] Mean platelet volume determi nationOrdered By: Efraín Toledo on 11-10-2024 Platelet mean volume (Bld) [Entitic vol] 9.5 fL 6.2-12.0 [facility] Platelet countOrdered By: Phani Toledo on 11-10-2024 Platelets (Bld) [#/Vol] 233 10*3/uL 150-450 [facility] RBC Auto (Bld) [#/Vol]Ordere d By: Efraín Toledo on 11-10-2024 RBC (Bld) [#/Vol] 4.95 10*6/uL 4.6-6.2 [facility] White blood cell (WBC) count Ordered By: Efraín Toledo on 11-10-2024 WBC (Bld) [#/Vol] 7.2 10*3/uL 4.4-11.0 [facility] Absolute lymphocyte countOrd ered By: Brennon Steiner on 11-09-2024 Lymphocytes Auto (Unsp spec) [#/Vol] 1.88 10*3/uL 0.83-4.51 [facility] Absolute neutrophil countOrd ered By: Brennon Steiner on 11-09-2024 Neutrophils (Bld) [#/Vol] 5.5 10*3/uL 2.0-7.7 [facility] Anion gap in Serum or Plasma Ordered By: Brennon Steiner on 11-09-2024 Anion gap [Moles/Vol] 11 mmol/L 5-15 [facility] Automated lymphocyte count a s percentage of total leukocytesOrdered By: Brennon Steiner on 11-09-2024 Lymphocytes/100 WBC Auto (Unsp spec) 22.6 % 19-41 [facility] BUN/creatinine ratioOrdered By: Brennon Steiner on 11-09-2024 Urea nitrogen/Creatinine [Mass ratio] 14.3 mg/mg 10- [facility] Basic Metabolic Profile (BMP )on 11-09-2024 BUN/CRE 14.3 RATIO Normal - [facility] Comment on above: Performed By: #### L 503.7505, L100.0100, L500.2500 ####[facility] [address] [place], [place], [address] Calcium [Mass/Vol] 9.0 mg/dL Normal 7.6-11.0 [facility] Comment on above: Performed By: #### L 503.7505, L100.0100, L500.2500 ####[facility] [address] [place], [address] Chloride [Moles/Vol] 101 mmol/L Normal 98-108 [facility] Comment on above: Performed By: #### L 503.7505, L100.0100, L500.2500 ####[facility] [address] [place], [address] CO2 [Moles/Vol] 26.8 mmol/L Normal 21.0-32.0 [facility] Comment on above: Performed By: #### L 503.7505, L100.0100, L500.2500 ####[facility] [address] [place], [address] Creatinine [Mass/Vol] 0.73 mg/dL Normal 0.70-1.20 [facility] Comment on above: Performed By: #### L 503.7505, L100.0100, L500.2500 ####[facility] [address] [place], [address] ECRCL 232.29 ml/min Normal 50-250 [facility] Comment on above: Performed By: #### L 503.7505, L100.0100, L500.2500 ####[facility] [address] [place], [address] GAP 11 Normal 5-15 [facility] Comment on above: Performed By: #### L 503.7505, L100.0100, L500.2500 ####[facility] [address] [place], [address] GFR/1.73 sq M.predicted among non-blacks MDRD (S/P/Bld) [Vol rate/Area] 109 mL/min/{1.73_m2} Normal >60 [facility] Comment on above: Result Comment: mL/m in/1.73m2 CKD-EPI Creatinine Equation (2020) Performed By: #### L 503.7505, L100.0100, L500.2500 ####[facility] [address] [place], [address] Glucose [Mass/Vol] 93 mg/dL Normal 70-99 [facility] Comment on above: Performed By: #### L 503.7505, L100.0100, L500.2500 ####[facility] [address] [place], [address] Potassium [Moles/Vol] 3.9 mmol/L Normal 3.3-5.1 [facility] Comment on above: Result Comment: Hemo lysis present, Results??could be affected.?? Performed By: #### L 503.7505, L100.0100, L500.2500 ####[facility] [address] [place], [address] Sodium [Moles/Vol] 139 mmol/L Normal 133-145 [facility] Comment on above: Performed By: #### L 503.7505, L100.0100, L500.2500 ####[facility] [address] [place], [address] Urea nitrogen [Mass/Vol] 11 mg/dL Normal 4-19 [facility] Comment on above: Performed By: #### L 503.7505, L100.0100, L500.2500 ####[facility] [address] [place], [address] Basophil percentageOrdered B y: Brennon Steiner on 11-09-2024 Basophils/100 WBC (Bld) 0.5 % 0-1 [facility] CBC W/Diff, Automatedon 10-30 Absolute Lymph 1.88 X10 3/uL Normal 0.83-4.51 [facility] Comment on above: Performed By: #### L 503.7505, L100.0100, L500.2500 ####[facility] [address] [place], [address] Absolute Neut 5.5 X10 3/uL Normal 2.0-7.7 [facility] Comment on above: Performed By: #### L 503.7505, L100.0100, L500.2500 ####[facility] [address] [place], [address] Basophils/100 WBC (Bld) 0.5 % Normal 0-1 [facility] Comment on above: Performed By: #### L 503.7505, L100.0100, L500.2500 ####[facility] [address] [place], [address] Eosinophils/100 WBC (Bld) 2.2 % Normal 0-5 [facility] Comment on above: Performed By: #### L 503.7505, L100.0100, L500.2500 ####[facility] [address] [place], [address] Erythrocyte distribution width (RBC) [Ratio] 14.5 % Normal 11.6-14.6 [facility] Comment on above: Performed By: #### L 503.7505, L100.0100, L500.2500 ####[facility] [address] [place], [address] Hematocrit (Bld) [Volume fraction] 47.9 % Normal 40-54 [facility] Comment on above: Performed By: #### L 503.7505, L100.0100, L500.2500 ####[facility] [address] [place], [address] Hemoglobin (Bld) [Mass/Vol] 15.4 g/dL Normal 13.0-16.5 [facility] Comment on above: Performed By: #### L 503.7505, L100.0100, L500.2500 ####[facility] [address] [place], [address] IG% 0.200 Normal 0.0-0.9 [facility] Comment on above: Result Comment: IG% - Immature Granulocytes (promyelocytes, myelocytes andmetamyelocytes) > 1% indicates that a LEFT SHIFT is Present. Performed By: #### L 503.7505, L100.0100, L500.2500 ####[facility] [address] [place], [address] Lymphocytes/100 WBC (Bld) 22.6 % Normal 19-41 [facility] Comment on above: Performed By: #### L 503.7505, L100.0100, L500.2500 ####[facility] [address] [place], [address] MCH (RBC) [Entitic mass] 28.7 pg Normal 27.0-32.0 [facility] Comment on above: Performed By: #### L 503.7505, L100.0100, L500.2500 ####[facility] [address] [place], [address] MCHC (RBC) [Mass/Vol] 32.2 g/dL Normal 32-36 [facility] Comment on above: Performed By: #### L 503.7505, L100.0100, L500.2500 ####[facility] [address] [place], [address] MCV (RBC) [Entitic vol] 89.2 fL Normal 80-94 [facility] Comment on above: Performed By: #### L 503.7505, L100.0100, L500.2500 ####[facility] [address] [place], [address] Monocytes/100 WBC (Bld) 8.4 % Normal 0-10 [facility] Comment on above: Performed By: #### L 503.7505, L100.0100, L500.2500 ####[facility] [address] [place], [address] Neutrophils/100 WBC (Bld) 66.1 % Normal 47-70 [facility] Comment on above: Performed By: #### L 503.7505, L100.0100, L500.2500 ####[facility] [address] [place], [address] Nucleated RBC (Bld) [#/Vol] 0 10*3/uL Normal 0-5 [facility] Comment on above: Performed By: #### L 503.7505, L100.0100, L500.2500 ####[facility] [address] [place], [address] Platelet mean volume (Bld) [Entitic vol] 9.6 fL Normal 6.2-12.0 [facility] Comment on above: Performed By: #### L 503.7505, L100.0100, L500.2500 ####[facility] [address] [place], [address] Platelets (Bld) [#/Vol] 253 10*3/uL Normal 150-450 [facility] Comment on above: Performed By: #### L 503.7505, L100.0100, L500.2500 ####[facility] [address] [place], [address] RBC (Bld) [#/Vol] 5.37 10*6/uL Normal 4.6-6.2 [facility] Comment on above: Performed By: #### L 503.7505, L100.0100, L500.2500 ####[facility] [address] [place], [address] RDW SD 46.8 fl High 35.1-43.9 [facility] Comment on above: Performed By: #### L 503.7505, L100.0100, L500.2500 ####[facility] [address] [place], [address] WBC (Bld) [#/Vol] 8.3 10*3/uL Normal 4.4-11.0 [facility] Comment on above: Performed By: #### L 503.7501, L100.0100, L500.2500 ####[facility] [address] [place], [address] Carbon dioxide, total [Moles /volume] in Central venous bloodOrdered By: Brennon Steiner on 11-09-2024 CO2 [Moles/Vol] 26.8 mmol/L 21.0-32.0 [facility] Chest 1 View (Portable)on Chest 1 View (Portable) Normal [facility] Chloride assayOrdered By: Sy Steiner on 11-09-2024 Chloride [Moles/Vol] 101 mmol/L 98-108 [facility] Emergency Department Summary on 11-09-2024 Emergency Department Summary Normal [facility] Eosinophil percentageOrdered By: Brennon Steiner on 11-09-2024 Eosinophils/100 WBC (Bld) 2.2 % 0-5 [facility] Erythrocyte distribution wid th ratioOrdered By: Brennon Steiner on 11-09-2024 Erythrocyte distribution width (RBC) [Ratio] 14.5 % 11.6-14.6 [facility] Erythrocyte distribution wid th standard deviationOrdered By: Brennon Steiner on 11-09-2024 Erythrocyte distribution width (RBC) [Ratio] 46.8 fl High 35.1-43.9 [facility] Foot min 3 Viewson 5 Foot min 3 Views Normal [facility] Foot min 3 Views Normal [facility] Glomerular filtration rate ( GFR) estimation/1.73 sq m using serum, plasma, or whole bOrdered By: Brennon Steiner on 11-09-2024 GFR/1.73 sq M.predicted among non-blacks MDRD (S/P/Bld) [Vol rate/Area] 109 mL/min/{1.73_m2} >60 [facility] Comment on above: mL/min/1.73m2 CKD-EP I Creatinine Equation (2020) Hematocrit Auto (Bld) [Volum e fraction]Ordered By: Brennon Steiner on 11-09-2024 Hematocrit (Bld) [Volume fraction] 47.9 % 40-54 [facility] Hemoglobin measurementOrdere d By: Brennon Steiner on 11-09-2024 Hemoglobin (Bld) [Mass/Vol] 15.4 g/dL 13.0-16.5 [facility] Immature granulocytes/100 WB C Auto (Bld)Ordered By: Brennon Steiner on 11-09-2024 Immature granulocytes/100 WBC (Bld) 0.200 % 0.0-0.9 [facility] Comment on above: IG% - Immature Granu locytes (promyelocytes, myelocytes and metamyelocytes) > 1% indicates that a LEFT SHIFT is Present. L/S Spine Min 4 Viewson 10-30 L/S Spine Min 4 Views Normal [facility] L503.7505on 11-09-2024 Natriuretic peptide B (Bld) [Mass/Vol] 184 pg/mL Normal <=900 [facility] Comment on above: Result Comment: Hear t Failure Unlikely: < 300 pg/mLHeart Failure Likely< 50 Years: > 450 pg/mL50-75 Years: > 900 pg/mL>75 Years: > 1800 pg/mL Performed By: #### L 503.7505, L100.0100, L500.2500 ####[facility] [address] [place], [address] MCV (mean corpuscular volume ) determinationOrdered By: Brennon Steiner on 11-09-2024 MCV (RBC) [Entitic vol] 89.2 fL 80-94 [facility] Mean corpuscular hemoglobin (MCH) determinationOrdered By: Brennon Steiner on 11-09-2024 MCH (RBC) [Entitic mass] 28.7 pg 27.0-32.0 [facility] Mean corpuscular hemoglobin concentration (MCHC) determinationOrdered By: Brennon Steiner on 11-09-2024 MCHC (RBC) [Mass/Vol] 32.2 g/dL 32-36 [facility] Mean platelet volume determi nationOrdered By: Brennon Steiner on 11-09-2024 Platelet mean volume (Bld) [Entitic vol] 9.6 fL 6.2-12.0 [facility] Monocyte percentageOrdered B y: Brennon Steiner on 11-09-2024 Monocytes/100 WBC (Bld) 8.4 % 0-10 [facility] Natriuretic peptide.B prohor diana N-Terminal [Mass/volume] in Serum or PlasmaOrdered By: Brennon Steiner on 11-09-2024 Natriuretic peptide.B prohormone N-Terminal [Mass/Vol] 184 pg/mL <900 [facility] Comment on above: Heart Failure Unlike ly: < 300 pg/mLHeart Failure Likely< 50 Years: > 450 pg/mL50-75 Years: > 900 pg/mL>75 Years: > 1800 pg/mL Neutrophil percentageOrdered By: Brennon Steiner on 11-09-2024 Neutrophils/100 WBC (Bld) 66.1 % 47-70 [facility] Nucleated red blood cell per centageOrdered By: Brennon Steiner on 11-09-2024 Nucleated RBC/100 WBC (Bld) [Ratio] 0 % 0-5 [facility] Platelet countOrdered By: Sy Steiner on 11-09-2024 Platelets (Bld) [#/Vol] 253 10*3/uL 150-450 [facility] Potassium measurement (mass/ volume)Ordered By: Brennon Steiner on 11-09-2024 Potassium (Unsp spec) [Mass/Vol] 3.9 mmol/L 3.3-5.1 [facility] Comment on above: Hemolysis present, R esults could be affected. RBC Auto (Bld) [#/Vol]Ordere d By: Brennon Steiner on 11-09-2024 RBC (Bld) [#/Vol] 5.37 10*6/uL 4.6-6.2 [facility] Serum creatinine measurement (mass/volume)Ordered By: Brennon Steiner on 11-09-2024 Creatinine [Mass/Vol] 0.73 mg/dL 0.70-1.20 [facility] Serum glucose measurement (m ass/volume)Ordered By: Brennon Steiner on 11-09-2024 Glucose [Mass/Vol] 93 mg/dL 70-99 [facility] Serum or plasma calcium rosa urement (mass/volume)Ordered By: Brennon Steiner on 11-09-2024 Calcium [Mass/Vol] 9.0 mg/dL 7.6-11.0 [facility] Serum or plasma urea nitroge n measurement (mass/volume)Ordered By: Brennon Steiner on 11-09-2024 Urea nitrogen [Mass/Vol] 11 mg/dL 4-19 [facility] Sodium levelOrdered By: Hang Steiner on 11-09-2024 Sodium [Moles/Vol] 139 mmol/L 133-145 [facility] White blood cell (WBC) count Ordered By: Brennon Steiner on 11-09-2024 WBC (Bld) [#/Vol] 8.3 10*3/uL 4.4-11.0 [facility] Discharge Instructionon 08-30 Discharge Instruction Normal [facility] Absolute lymphocyte countOrd ered By: Isma Peterson on 09-07-2024 Lymphocytes Auto (Unsp spec) [#/Vol] 1.25 10*3/uL 0.83-4.51 [facility] Absolute neutrophil countOrd ered By: Isma Peterson on 09-07-2024 Neutrophils (Bld) [#/Vol] 10.1 10*3/uL High 2.0-7.7 [facility] Anion gap in Serum or Plasma Ordered By: Isma Peterson on 09-07-2024 Anion gap [Moles/Vol] 10 mmol/L 5-15 [facility] Automated blood erythrocyte countOrdered By: Isma Peterson on 09-07-2024 RBC (Bld) [#/Vol] 5.96 10*6/uL Normal 4.6-6.2 [facility] Comment on above: Performed By: #### L 500.4050, L501.2300, L100.0100 ####[facility] [address] [place], [place], [address] Automated blood hematocrit ( percentage)Ordered By: Isma Peterson on 09-07-2024 Hematocrit (Bld) [Volume fraction] 52.9 % Normal 40-54 [facility] Comment on above: Performed By: #### L 500.4050, L501.2300, L100.0100 ####[facility] [address] [place], [address] Automated lymphocyte count a s percentage of total leukocytesOrdered By: Isma Peterson on 09-07-2024 Lymphocytes/100 WBC Auto (Unsp spec) 10.7 % Low 19-41 [facility] BUN/creatinine ratioOrdered By: Isma Nicholas on 09-07-2024 Urea nitrogen/Creatinine [Mass ratio] 18.5 mg/mg 10-20 [facility] Basophil percentageOrdered B y: Isma Nicholas on 09-07-2024 Basophils/100 WBC (Bld) 0.2 % Normal 0-1 [facility] Comment on above: Performed By: #### L 500.4050, L501.2300, L100.0100 ####[facility] [address] [place], [address] Bilirubin, totalOrdered By: Isma Peterson on 09-07-2024 Bilirubin [Mass/Vol] 0.70 mg/dL Normal 0.00-1.30 [facility] Comment on above: Performed By: #### L 500.4050, L501.2300, L100.0100 ####[facility] [address] [place], [address] CBC W/Diff, Automatedon 05-0 Absolute Lymph 1.25 X10 3/uL Normal 0.83-4.51 [facility] Comment on above: Performed By: #### L 500.4050, L501.2300, L100.0100 ####[facility] [address] [place], [address] Absolute Neut 10.1 X10 3/uL High 2.0-7.7 [facility] Comment on above: Performed By: #### L 500.4050, L501.2300, L100.0100 ####[facility] [address] [place], [address] IG% 0.400 Normal 0.0-0.9 [facility] Comment on above: Result Comment: IG% - Immature Granulocytes (promyelocytes, myelocytes andmetamyelocytes) > 1% indicates that a LEFT SHIFT is Present. Performed By: #### L 500.4050, L501.2300, L100.0100 ####[facility] [address] [place], [address] Lymphocytes/100 WBC (Bld) 10.7 % Low 19-41 [facility] Comment on above: Performed By: #### L 500.4050, L501.2300, L100.0100 ####[facility] [address] [place], [address] Nucleated RBC (Bld) [#/Vol] 0 10*3/uL Normal 0-5 [facility] Comment on above: Performed By: #### L 500.4050, L501.2300, L100.0100 ####[facility] [address] [place], [address] RDW SD 45.1 fl High 35.1-43.9 [facility] Comment on above: Performed By: #### L 500.4050, L501.2300, L100.0100 ####[facility] [address] [place], [address] Carbon dioxide, total [Moles /volume] in Central venous bloodOrdered By: Isma Peterson on 09-07-2024 CO2 [Moles/Vol] 23.2 mmol/L Normal 21.0-32.0 [facility] Comment on above: Performed By: #### L 500.4050, L501.2300, L100.0100 ####[facility] [address] [place], [address] Chloride assayOrdered By: Ney Peterson on 09-07-2024 Chloride [Moles/Vol] 103 mmol/L Normal 98-108 [facility] Comment on above: Performed By: #### L 500.4050, L501.2300, L100.0100 ####[facility] [address] [place], [address] Comprehensive Metabolic Prof benigno 09-07-2024 ALK PHOS 174 U/L High 40-129 [facility] Comment on above: Performed By: #### L 500.4050, L501.2300, L100.0100 ####[facility] [address] [place], [address] BUN/CRE 18.5 RATIO Normal 10-20 [facility] Comment on above: Performed By: #### L 500.4050, L501.2300, L100.0100 ####[facility] [address] [place], [address] ECRCL 232.49 ml/min Normal 50-250 [facility] Comment on above: Performed By: #### L 500.4050, L501.2300, L100.0100 ####[facility] [address] [place], [address] GAP 10 Normal 5-15 [facility] Comment on above: Performed By: #### L 500.4050, L501.2300, L100.0100 ####[facility] [address] [place], [address] Potassium [Moles/Vol] 4.4 mmol/L Normal 3.3-5.1 [facility] Comment on above: Performed By: #### L 500.4050, L501.2300, L100.0100 ####[facility] [address] [place], [address] T PROT 7.8 g/dL Normal 5.9-8.4 [facility] Comment on above: Performed By: #### L 500.4050, L501.2300, L100.0100 ####[facility] [address] [place], [address] Comprehensive Metabolic Prof ilOrdered By: Isma Peterson on 09-07-2024 AST [Catalytic activity/Vol] 17 U/L Normal <=37 [facility] Comment on above: Performed By: #### L 500.4272, L501.2300, L100.0100 ####[facility] [address] [place], [address] Electrocardiogram reportOrde red By: Lizbeth Walsh on 09-07-2024 EKG study [facility] [address] [place] [address] 12 Lead EKG 09/06/24 0044 MR#: [id number] Acct: [id number] Name: AZALIA MATTHEW II Rep #:[id number] : 1970 53 From: Lizbeth de santiago MD Attending Dr: Dr. Francesco Montgomery MD Status: ADM IN Ordering Dr: Zachariah Lantigua MD Date: 09/06/24 Location: [facility] Sex: M C Admitted: 09/06/24 Test Reason : SOB Blood Pressure : */* mmHG Vent. Rate : 78 BPM Atrial Rate : 78 BPM P-R Int : 166 ms QRS Dur : 96 ms QT Int : 392 ms P-R-T Axes : 56 52 57 degrees QTcB Int : 446 ms Normal sinus rhythm Normal ECG Confirmed by Lizbeth Walhs ([id number]), fashion editor PATRICK MORALES ([id number]) on 09/07/2024 12:18:10 PM Referred By: Confirmed By: Lizbeth Walsh 09/07/24 1218 Date _ Lizbeth Walsh MD CC: Dr. Zachariah Lantigua MD; Dr. Francesco Montgomery MD; No Primary Care Physician ~ Signed [facility] Other Phone: Eosinophil percentageOrdered By: Isma Peterson on 09-07-2024 Eosinophils/100 WBC (Bld) 0.0 % Normal 0-5 [facility] Comment on above: Performed By: #### L 500.4050, L501.2300, L100.0100 ####[facility] [address] [place], [address] Erythrocyte distribution wid th ratioOrdered By: Isma Peterson on 09-07-2024 Erythrocyte distribution width (RBC) [Ratio] 13.9 % Normal 11.6-14.6 [facility] Comment on above: Performed By: #### L 500.4050, L501.2300, L100.0100 ####[facility] [address] [place], [address] Erythrocyte distribution wid th standard deviationOrdered By: Isma Peterson on 09-07-2024 Erythrocyte distribution width (RBC) [Ratio] 45.1 fl High 35.1-43.9 [facility] Glomerular filtration rate ( GFR) estimation/1.73 sq m using serum, plasma, or whole bOrdered By: Isma Peterson on 09-07-2024 GFR/1.73 sq M.predicted among non-blacks MDRD (S/P/Bld) [Vol rate/Area] 113 mL/min/{1.73_m2} Normal >60 [facility] Comment on above: mL/min/1.73m2 CKD-EP I Creatinine Equation (2020) Result Comment: mL/m in/1.73m2 CKD-EPI Creatinine Equation (2020) Performed By: #### L 500.4050, L501.2300, L100.0100 ####[facility] [address] [place], [address] Hemoglobin measurementOrdere d By: Isma Peterson on 09-07-2024 Hemoglobin (Bld) [Mass/Vol] 17.6 g/dL High 13.0-16.5 [facility] Comment on above: Performed By: #### L 500.4050, L501.2300, L100.0100 ####[facility] [address] [place], [address] Immature granulocytes/100 WB C Auto (Bld)Ordered By: Isma Peterson on 09-07-2024 Immature granulocytes/100 WBC (Bld) 0.400 % 0.0-0.9 [facility] Comment on above: IG% - Immature Granu locytes (promyelocytes, myelocytes and metamyelocytes) > 1% indicates that a LEFT SHIFT is Present. MCV (mean corpuscular volume ) determinationOrdered By: Isma Peterson on 09-07-2024 MCV (RBC) [Entitic vol] 88.8 fL Normal 80-94 [facility] Comment on above: Performed By: #### L 500.4050, L501.2300, L100.0100 ####[facility] [address] [place], [address] Mean corpuscular hemoglobin (MCH) determinationOrdered By: Isma Peterson on 09-07-2024 MCH (RBC) [Entitic mass] 29.5 pg Normal 27.0-32.0 [facility] Comment on above: Performed By: #### L 500.4050, L501.2300, L100.0100 ####[facility] [address] [place], [address] Mean corpuscular hemoglobin concentration (MCHC) determinationOrdered By: Isma Peterson on 09-07-2024 MCHC (RBC) [Mass/Vol] 33.3 g/dL Normal 32-36 [facility] Comment on above: Performed By: #### L 500.4050, L501.2300, L100.0100 ####[facility] [address] [place], [address] Mean platelet volume determi nationOrdered By: Isma Peterson on 09-07-2024 Platelet mean volume (Bld) [Entitic vol] 9.8 fL Normal 6.2-12.0 [facility] Comment on above: Performed By: #### L 500.4050, L501.2300, L100.0100 ####[facility] [address] [place], [address] Monocyte percentageOrdered B y: Isma Peterson on 09-07-2024 Monocytes/100 WBC (Bld) 3.0 % Normal 0-10 [facility] Comment on above: Performed By: #### L 500.4050, L501.2300, L100.0100 ####[facility] [address] [place], [address] Neutrophil percentageOrdered By: Isma Peterson on 09-07-2024 Neutrophils/100 WBC (Bld) 85.7 % High 47-70 [facility] Comment on above: Performed By: #### L 500.4050, L501.2300, L100.0100 ####[facility] [address] [place], [address] Nucleated red blood cell per centageOrdered By: Isma Peterson on 09-07-2024 Nucleated RBC/100 WBC (Bld) [Ratio] 0 % 0-5 [facility] Phosphoruson 09-07-2024 Phosphate [Mass/Vol] 2.8 mg/dL Normal 2.7-4.5 [facility] Comment on above: Performed By: #### L 500.4050, L501.2300, L100.0100 ####[facility] [address] [place], [address] Platelet countOrdered By: Ney Peterson on 09-07-2024 Platelets (Bld) [#/Vol] 262 10*3/uL Normal 150-450 [facility] Comment on above: Performed By: #### L 500.4050, L501.2300, L100.0100 ####[facility] [address] [place], [address] Potassium measurement (mass/ volume)Ordered By: Isma Peterson on 09-07-2024 Potassium (Unsp spec) [Mass/Vol] 4.4 mmol/L 3.3-5.1 [facility] Serum creatinine measurement (mass/volume)Ordered By: Isma Peterson on 09-07-2024 Creatinine [Mass/Vol] 0.65 mg/dL Low 0.70-1.20 [facility] Comment on above: Performed By: #### L 500.4050, L501.2300, L100.0100 ####[facility] [address] [place], [address] Serum globulin measurementOr dered By: Isma Peterson on 09-07-2024 Globulin (S) [Mass/Vol] 3.9 g/dL Normal 2.2-4.2 [facility] Comment on above: Performed By: #### L 500.4050, L501.2300, L100.0100 ####[facility] [address] [place], [address] Serum glucose measurement (m ass/volume)Ordered By: Isma Peterson on 09-07-2024 Glucose [Mass/Vol] 156 mg/dL High 70-99 [facility] Comment on above: Performed By: #### L 500.4050, L501.2300, L100.0100 ####[facility] [address] [place], [address] Serum or plasma alanine cast otransferase (ALT) measurementOrdered By: Isma Peterson on 09-07-2024 ALT [Catalytic activity/Vol] 23 U/L Normal <=46 [facility] Comment on above: Performed By: #### L 500.4050, L501.2300, L100.0100 ####[facility] [address] [place], [address] Serum or plasma albumin rosa urement (mass/volume)Ordered By: Imsa Peterson on 09-07-2024 Albumin [Mass/Vol] 3.9 g/dL Normal 3.5-5.0 [facility] Comment on above: Performed By: #### L 500.4050, L501.2300, L100.0100 ####[facility] [address] [place], [address] Serum or plasma albumin/glob ulin mass ratioOrdered By: Isma Peterson on 09-07-2024 Albumin/Globulin [Mass ratio] 1.0 {ratio} Normal 0.9-2.4 [facility] Comment on above: Performed By: #### L 500.4050, L501.2300, L100.0100 ####[facility] [address] [place], [address] Serum or plasma alkaline roldan sphatase measurementOrdered By: sIma Peterson on 09-07-2024 ALP [Catalytic activity/Vol] 174 U/L High 40-129 [facility] Serum or plasma calcium rosa urement (mass/volume)Ordered By: Isma Peterson on 09-07-2024 Calcium [Mass/Vol] 9.1 mg/dL Normal 7.6-11.0 [facility] Comment on above: Performed By: #### L 500.4050, L501.2300, L100.0100 ####[facility] [address] [place], [address] Serum or plasma urea nitroge n measurement (mass/volume)Ordered By: Isma Peterson on 09-07-2024 Urea nitrogen [Mass/Vol] 12 mg/dL Normal 4-19 [facility] Comment on above: Performed By: #### L 500.4050, L501.2300, L100.0100 ####[facility] [address] [place], [address] Sodium levelOrdered By: Ethan Peterson on 09-07-2024 Sodium [Moles/Vol] 136 mmol/L Normal 133-145 [facility] Comment on above: Performed By: #### L 500.4050, L501.2300, L100.0100 ####[facility] [address] [place], [address] Total proteinOrdered By: Bryan Peterson on 09-07-2024 Protein [Mass/Vol] 7.8 g/dL 5.9-8.4 [facility] White blood cell (WBC) count Ordered By: Isma Peterson on 09-07-2024 WBC (Bld) [#/Vol] 11.7 10*3/uL High 4.4-11.0 [facility] Comment on above: Performed By: #### L 500.4050, L501.2300, L100.0100 ####[facility] [address] [place], [address] 12 Lead EKGon 09-06-2024 12 Lead EKG Normal [facility] Absolute lymphocyte countOrd ered By: Zachariah Lantigua on 09-06-2024 Lymphocytes Auto (Unsp spec) [#/Vol] 1.67 10*3/uL 0.83-4.51 [facility] Absolute neutrophil countOrd ered By: Zachariah Lantigua on 09-06-2024 Neutrophils (Bld) [#/Vol] 8.0 10*3/uL High 2.0-7.7 [facility] Anion gap in Serum or Plasma Ordered By: Zachariah Lantigua on 09-06-2024 Anion gap [Moles/Vol] 11 mmol/L 5-15 [facility] Automated lymphocyte count a s percentage of total leukocytesOrdered By: Zachariah Lantigua on 09-06-2024 Lymphocytes/100 WBC Auto (Unsp spec) 15.8 % Low 19-41 [facility] BUN/creatinine ratioOrdered By: Zachariah Lantigua on 09-06-2024 Urea nitrogen/Creatinine [Mass ratio] 15.2 mg/mg 10-20 [facility] Basic Metabolic Profile (BMP )on 09-06-2024 BUN/CRE 15.2 RATIO Normal - [facility] Comment on above: Performed By: #### L 501.4021, L500.2500, L100.0100 ####[facility] [address] [place], [address] Calcium [Mass/Vol] 8.9 mg/dL Normal 7.6-11.0 [facility] Comment on above: Performed By: #### L 501.4021, L500.2500, L100.0100 ####[facility] [address] [place], [address] Chloride [Moles/Vol] 101 mmol/L Normal 98-108 [facility] Comment on above: Performed By: #### L 501.4021, L500.2500, L100.0100 ####[facility] [address] [place], [address] CO2 [Moles/Vol] 24.5 mmol/L Normal 21.0-32.0 [facility] Comment on above: Performed By: #### L 501.4021, L500.2500, L100.0100 ####[facility] [address] [place], [address] Creatinine [Mass/Vol] 0.75 mg/dL Normal 0.70-1.20 [facility] Comment on above: Performed By: #### L 501.4021, L500.2500, L100.0100 ####[facility] [address] [place], [address] ECRCL 203.83 ml/min Normal 50-250 [facility] Comment on above: Performed By: #### L 501.4021, L500.2500, L100.0100 ####[facility] [address] [place], [address] GAP 11 Normal 5-15 [facility] Comment on above: Performed By: #### L 501.4021, L500.2500, L100.0100 ####[facility] [address] [place], [address] GFR/1.73 sq M.predicted among non-blacks MDRD (S/P/Bld) [Vol rate/Area] 109 mL/min/{1.73_m2} Normal >60 [facility] Comment on above: Result Comment: mL/m in/1.73m2 CKD-EPI Creatinine Equation (2020) Performed By: #### L 501.4021, L500.2500, L100.0100 ####[facility] [address] [place], [address] Glucose [Mass/Vol] 113 mg/dL High 70-99 [facility] Comment on above: Performed By: #### L 501.4021, L500.2500, L100.0100 ####[facility] [address] [place], [address] Potassium [Moles/Vol] 4.2 mmol/L Normal 3.3-5.1 [facility] Comment on above: Result Comment: Hemo lysis present, Results??could be affected.?? Performed By: #### L 501.4021, L500.2500, L100.0100 ####[facility] [address] [place], [address] Sodium [Moles/Vol] 137 mmol/L Normal 133-145 [facility] Comment on above: Performed By: #### L 501.4021, L500.2500, L100.0100 ####[facility] [address] [place], [address] Urea nitrogen [Mass/Vol] 11 mg/dL Normal 4-19 [facility] Comment on above: Performed By: #### L 501.4021, L500.2500, L100.0100 ####[facility] [address] [place], [address] Basophil percentageOrdered B y: Zachariah Lantigua on 09-06-2024 Basophils/100 WBC (Bld) 0.5 % 0-1 [facility] Bilirubin Test strip Ql (U)O rdered By: sIma Peterson on 09-06-2024 Bilirubin Ql (U) Negative Negative [facility] CBC W/Diff, Automatedon Absolute Lymph 1.67 X10 3/uL Normal 0.83-4.51 [facility] Comment on above: Performed By: #### L 501.4021, L500.2500, L100.0100 ####[facility] [address] [place], [address] Absolute Neut 8.0 X10 3/uL High 2.0-7.7 [facility] Comment on above: Performed By: #### L 501.4021, L500.2500, L100.0100 ####[facility] [address] [place], [address] Basophils/100 WBC (Bld) 0.5 % Normal 0-1 [facility] Comment on above: Performed By: #### L 501.4021, L500.2500, L100.0100 ####[facility] [address] [place], [address] Eosinophils/100 WBC (Bld) 1.4 % Normal 0-5 [facility] Comment on above: Performed By: #### L 501.4021, L500.2500, L100.0100 ####[facility] [address] [place], [address] Erythrocyte distribution width (RBC) [Ratio] 13.9 % Normal 11.6-14.6 [facility] Comment on above: Performed By: #### L 501.4021, L500.2500, L100.0100 ####[facility] [address] [place], [address] Hematocrit (Bld) [Volume fraction] 52.6 % Normal 40-54 [facility] Comment on above: Performed By: #### L 501.4021, L500.2500, L100.0100 ####[facility] [address] [place], [address] Hemoglobin (Bld) [Mass/Vol] 17.7 g/dL High 13.0-16.5 [facility] Comment on above: Performed By: #### L 501.4021, L500.2500, L100.0100 ####[facility] [address] [place], [address] IG% 0.300 Normal 0.0-0.9 [facility] Comment on above: Result Comment: IG% - Immature Granulocytes (promyelocytes, myelocytes andmetamyelocytes) > 1% indicates that a LEFT SHIFT is Present. Performed By: #### L 501.4021, L500.2500, L100.0100 ####[facility] [address] [place], [address] Lymphocytes/100 WBC (Bld) 15.8 % Low 19-41 [facility] Comment on above: Performed By: #### L 501.4021, L500.2500, L100.0100 ####[facility] [address] [place], [address] MCH (RBC) [Entitic mass] 29.1 pg Normal 27.0-32.0 [facility] Comment on above: Performed By: #### L 501.4021, L500.2500, L100.0100 ####[facility] [address] [place], [address] MCHC (RBC) [Mass/Vol] 33.7 g/dL Normal 32-36 [facility] Comment on above: Performed By: #### L 501.4021, L500.2500, L100.0100 ####[facility] [address] [place], [address] MCV (RBC) [Entitic vol] 86.5 fL Normal 80-94 [facility] Comment on above: Performed By: #### L 501.4021, L500.2500, L100.0100 ####[facility] [address] [place], [address] Monocytes/100 WBC (Bld) 6.6 % Normal 0-10 [facility] Comment on above: Performed By: #### L 501.4021, L500.2500, L100.0100 ####[facility] [address] [place], [address] Neutrophils/100 WBC (Bld) 75.4 % High 47-70 [facility] Comment on above: Performed By: #### L 501.4021, L500.2500, L100.0100 ####[facility] [address] [place], [address] Nucleated RBC (Bld) [#/Vol] 0 10*3/uL Normal 0-5 [facility] Comment on above: Performed By: #### L 501.4021, L500.2500, L100.0100 ####[facility] [address] [place], [address] Platelet mean volume (Bld) [Entitic vol] 9.6 fL Normal 6.2-12.0 [facility] Comment on above: Performed By: #### L 501.4021, L500.2500, L100.0100 ####[facility] [address] [place], [address] Platelets (Bld) [#/Vol] 258 10*3/uL Normal 150-450 [facility] Comment on above: Performed By: #### L 501.4021, L500.2500, L100.0100 ####[facility] [address] [place], [address] RBC (Bld) [#/Vol] 6.08 10*6/uL Normal 4.6-6.2 [facility] Comment on above: Performed By: #### L 501.4021, L500.2500, L100.0100 ####[facility] [address] [place], [address] RDW SD 43.9 fl Normal 35.1-43.9 [facility] Comment on above: Performed By: #### L 501.4021, L500.2500, L100.0100 ####[facility] [address] [place], [address] WBC (Bld) [#/Vol] 10.6 10*3/uL Normal 4.4-11.0 [facility] Comment on above: Performed By: #### L 501.4021, L500.2500, L100.0100 ####[facility] [address] [place], [address] CTA Chest W/WO Contraston CTA Chest W/WO Contrast Normal [facility] Carbon dioxide, total [Moles /volume] in Central venous bloodOrdered By: Zachariah Lantigua on 09-06-2024 CO2 [Moles/Vol] 24.5 mmol/L 21.0-32.0 [facility] Chest PA and Lateralon 09-06 Chest PA and Lateral Normal [facility] Chloride assayOrdered By: Jovita Lantigua on 09-06-2024 Chloride [Moles/Vol] 101 mmol/L 98-108 [facility] D-Dimer Quantitative (DVT/PE )on 09-06-2024 D-DIMER QUANT 0.53 FEU/ug/m Invalid Interpretation Code 0.27-0.49 [facility] Comment on above: Result Comment: D-Di jc ELEVATED (>0.49): Additional studies and clinicalassessments are indicated to conclude diagnosis of:Deep Vein Thrombosis (DVT) or Pulmonary Embolism (PE)CRITICAL VALUE CALLED TO LZBEYZ13/08/25 [facility] Bunny Castrejon.RESULTS READ BACK BY SAME. Performed By: #### L 300.8000, L503.7505 ####[facility] [address] [place], [address] Emergency Department Summary on 09-06-2024 Emergency Department Summary Normal [facility] Eosinophil percentageOrdered By: Zachariah Lantigua on 09-06-2024 Eosinophils/100 WBC (Bld) 1.4 % 0-5 [facility] Erythrocyte distribution wid th ratioOrdered By: Zachariah Lantigua on 09-06-2024 Erythrocyte distribution width (RBC) [Ratio] 13.9 % 11.6-14.6 [facility] Erythrocyte distribution wid th standard deviationOrdered By: aZchariah Lantigua on 09-06-2024 Erythrocyte distribution width (RBC) [Ratio] 43.9 fl 35.1-43.9 [facility] Glomerular filtration rate ( GFR) estimation/1.73 sq m using serum, plasma, or whole bOrdered By: Zachariah Lantigua on 09-06-2024 GFR/1.73 sq M.predicted among non-blacks MDRD (S/P/Bld) [Vol rate/Area] 109 mL/min/{1.73_m2} >60 [facility] Comment on above: mL/min/1.73m2 CKD-EP I Creatinine Equation (2020) H AND P Exam - [facility] 09-06-2024 H&P Exam - Hospitalist Normal [facility] Hematocrit Auto (Bld) [Volum e fraction]Ordered By: Zachariah Lantigua on 09-06-2024 Hematocrit (Bld) [Volume fraction] 52.6 % 40-54 [facility] Hemoglobin measurementOrdere d By: Zachariah Lantigua on 09-06-2024 Hemoglobin (Bld) [Mass/Vol] 17.7 g/dL High 13.0-16.5 [facility] Immature granulocytes/100 WB C Auto (Bld)Ordered By: Zachariah Lantigua on 09-06-2024 Immature granulocytes/100 WBC (Bld) 0.300 % 0.0-0.9 [facility] Comment on above: IG% - Immature Granu locytes (promyelocytes, myelocytes and metamyelocytes) > 1% indicates that a LEFT SHIFT is Present. Influenza virus A and B and SARS-CoV-2 (COVID-19) and Respiratory syncytial virus RNAOrdered By: Zachariah Lantigua on 09-06-2024 SARS-CoV-2 (COVID-19) RNA BANDAR+probe Ql (Unsp spec) [facility] Ketones Test strip Ql (U)Ord ered By: Isma Peterson on 09-06-2024 Ketones Ql (U) Negative Negative [facility] L499.0042on 09-06-2024 Trop T High Sen 9 ng/L Normal <=22 [facility] Comment on above: Performed By: #### L 499.0042 ####[facility] [address] [place], [address] L499.0043on 09-06-2024 Trop T High Sen Normal <=22 [facility] Comment on above: Result Comment: Canc elled via OM: no longer needed Performed By: #### L 499.0043 ####[facility] [address] [place], [address] L501.4021on 09-06-2024 Trop T High Sen 10 ng/L Normal <=22 [facility] Comment on above: Performed By: #### L 501.4021, L500.2500, L100.0100 ####[facility] [address] [place], [address] L503.7505on 09-06-2024 Natriuretic peptide B (Bld) [Mass/Vol] 306 pg/mL Normal <=900 [facility] Comment on above: Result Comment: Hear t Failure Unlikely: < 300 pg/mLHeart Failure Likely< 50 Years: > 450 pg/mL50-75 Years: > 900 pg/mL>75 Years: > 1800 pg/mL Performed By: #### L 300.8000, L503.7505 ####[facility] [address] [place], [address] M100.678on 09-06-2024 M100.678 SARS-CoV-2 (COVID 19 ) Negative INFLUENZA A Negative INFLUENZA B Negative RSV PCR Negative Normal [facility] Comment on above: Performed By: #### M 100.678 ####[facility] [address] [place], [address] MCV (mean corpuscular volume ) determinationOrdered By: Zachariah Lantigua on 09-06-2024 MCV (RBC) [Entitic vol] 86.5 fL 80-94 [facility] Magnesiumon 09-06-2024 Magnesium [Mass/Vol] 2.1 mg/dL Normal 1.5-2.2 [facility] Comment on above: Performed By: #### L 501.5200, L501.9520 ####[facility] [address] [place], [address] Magnesium measurement (mass/ volume)Ordered By: Isma Peterson on 09-06-2024 Magnesium (Unsp spec) [Mass/Vol] 2.1 mg/dL 1.5-2.2 [facility] Mean corpuscular hemoglobin (MCH) determinationOrdered By: Zachariah Lantigua on 09-06-2024 MCH (RBC) [Entitic mass] 29.1 pg 27.0-32.0 [facility] Mean corpuscular hemoglobin concentration (MCHC) determinationOrdered By: Zachariah Lantigua on 09-06-2024 MCHC (RBC) [Mass/Vol] 33.7 g/dL 32-36 [facility] Mean platelet volume determi nationOrdered By: Zachariah Lantigua on 09-06-2024 Platelet mean volume (Bld) [Entitic vol] 9.6 fL 6.2-12.0 [facility] Microscopic analysis of urin e for red blood cells (RBC)Ordered By: Isma Peterson on 09-06-2024 Microscopic analysis of urine for red blood cells (RBC) 0-5 SEEN /hpf 0-5 [facility] Monocyte percentageOrdered B y: Zachariah Lantigua on 09-06-2024 Monocytes/100 WBC (Bld) 6.6 % 0-10 [facility] Mucus LM Ql (Urine sed)Order ed By: Isma Peterson on 09-06-2024 Mucus Ql (Urine sed) 0 SEEN /hpf [facility] Natriuretic peptide.B prohor diana N-Terminal [Mass/volume] in Serum or PlasmaOrdered By: Zachariah Lantigua on 09-06-2024 Natriuretic peptide.B prohormone N-Terminal [Mass/Vol] 306 pg/mL <900 [facility] Comment on above: Heart Failure Unlike ly: < 300 pg/mLHeart Failure Likely< 50 Years: > 450 pg/mL50-75 Years: > 900 pg/mL>75 Years: > 1800 pg/mL Neutrophil percentageOrdered By: Zachariah Lantigua on 09-06-2024 Neutrophils/100 WBC (Bld) 75.4 % High 47-70 [facility] Nitrite Test strip Ql (U)Ord ered By: Isma Peterson on 09-06-2024 Nitrite Ql (U) Negative Negative [facility] Nucleated red blood cell per centageOrdered By: Zachariah Lantigua on 09-06-2024 Nucleated RBC/100 WBC (Bld) [Ratio] 0 % 0-5 [facility] Platelet countOrdered By: Jovita Lantigua on 09-06-2024 Platelets (Bld) [#/Vol] 258 10*3/uL 150-450 [facility] Potassium measurement (mass/ volume)Ordered By: Zachariah Lantigua on 09-06-2024 Potassium (Unsp spec) [Mass/Vol] 4.2 mmol/L 3.3-5.1 [facility] Comment on above: Hemolysis present, R esults could be affected. Protein Test strip Ql (U)Ord ered By: Isma Peterson on 09-06-2024 Protein Ql (U) 30 mg/dl High Negative [facility] RBC Auto (Bld) [#/Vol]Ordere d By: Zachariah Lantigua on 09-06-2024 RBC (Bld) [#/Vol] 6.08 10*6/uL 4.6-6.2 [facility] RESPIRATORY PANEL MOLECULARo n 09-06-2024 RP PANEL Normal [facility] Comment on above: Performed By: #### M 100.173 ####[facility] [address] [place], [place], [id number] Respiratory pathogens detect ion panel by molecular detection methodOrdered By: Isma Peterson on 09-06-2024 Respiratory pathogens DNA and RNA panel BANDAR+probe (Resp) [facility] Serum creatinine measurement (mass/volume)Ordered By: Zachariah Lantigua on 09-06-2024 Creatinine [Mass/Vol] 0.75 mg/dL 0.70-1.20 [facility] Serum glucose measurement (m ass/volume)Ordered By: Zachariah Lantigua on 09-06-2024 Glucose [Mass/Vol] 113 mg/dL High 70-99 [facility] Serum or plasma calcium rosa urement (mass/volume)Ordered By: Zachariah Lantigua on 09-06-2024 Calcium [Mass/Vol] 8.9 mg/dL 7.6-11.0 [facility] Serum or plasma urea nitroge n measurement (mass/volume)Ordered By: Zachariah Lantigua on 09-06-2024 Urea nitrogen [Mass/Vol] 11 mg/dL 4-19 [facility] Sodium levelOrdered By: Clinton Lantigua on 09-06-2024 Sodium [Moles/Vol] 137 mmol/L 133-145 [facility] Squamous epithelial cells de tection in urine sediment by light microscopyOrdered By: Isma Peterson on 09-06-2024 Epithelial cells.squamous LM Ql (Urine sed) 0-5 SEEN /hpf 0-5 [facility] TSH DL <= 0.005 mIU/L QnOrde red By: Isma Peterson on 09-06-2024 TSH Qn 3.070 uIU/mL 0.300-4.20 0 [facility] Thyroidon 09-06-2024 Thyroid Normal [facility] Thyroid Stim Hormone (TSH)on 09-06-2024 TSH 3.070 uIU/mL Normal 0.300-4.20 0 [facility] Comment on above: Performed By: #### L 501.5200, L501.9520 ####[facility] [address] [place], [place], [id number] Troponin T.cardiac [Mass/vol ume] in Serum or Plasma by High sensitivity methodOrdered By: Zachariah Lantigua on 09-06-2024 Troponin T.cardiac High sensitivity method [Mass/Vol] 9 ng/L <22 [facility] Troponin T.cardiac High sensitivity method [Mass/Vol] 10 ng/L <22 [facility] Urinalysis, Completeon 09-06 EPI,SQUAMOUS 0-5 SEEN Normal 0-5 [facility] Comment on above: Order Comment: CLEAN CATCH Performed By: #### L 400.0001 ####[facility] [address] [place], [address] RBC 0-5 SEEN Normal 0-5 [facility] Comment on above: Order Comment: CLEAN CATCH Performed By: #### L 400.0001 ####[facility] [address] [place], [address] WBC 0-5 SEEN Normal 0-5 [facility] Comment on above: Order Comment: CLEAN CATCH Performed By: #### L 400.0001 ####[facility] [address] [place], [address] BACTERIA 0 SEEN Normal None Seen [facility] Comment on above: Order Comment: CLEAN CATCH Performed By: #### L 400.0001 ####[facility] [address] [place], [address] Mucus Ql (Urine sed) [address] [facility] Comment on above: Order Comment: CLEAN CATCH Performed By: #### L 400.0001 ####[facility] [address] [place], [address] Urine clarityOrdered By: Bryan Peterson on 09-06-2024 Clarity (U) Clear Clear [facility] Urine color determinationOrd ered By: Isma Peterson on 09-06-2024 Color (U) Yellow Yellow [facility] Urine glucose detectionOrder ed By: Isma Peterson on 09-06-2024 Glucose Ql (U) Normal mg/dl Normal [facility] Urine leukocyte esterase det ection by dipstickOrdered By: Isma Peterson on 09-06-2024 Leukocyte esterase Test strip Ql (U) Negative Negative [facility] Urine pHOrdered By: Isma arthur on 09-06-2024 pH (U) 5.0 [pH] 5.0 - 8.0 [facility] Urine sediment bacteria coun t by microscopy (number/high power field)Ordered By: Isma Peterson on 09-06-2024 Bacteria LM.HPF (Urine sed) [#/Area] 0 /[HPF] None Seen [facility] Urine specific gravity measu rementOrdered By: Isma Peterson on 09-06-2024 Specific gravity (U) [Rel density] 1.010 1.002-1.03 0 [facility] Urine urobilinogen measureme ntOrdered By: Isma Peterson on 09-06-2024 Urobilinogen Ql (U) Normal mg/dl Normal [facility] Venous Duplex US - Sammy Extre mon 09-06-2024 Venous Duplex US - Sammy Extrem Normal [facility] Venous duplex ultrasound rep ortOrdered By: Ferny Gustafson on 09-06-2024 US Vein [facility] [address] [place] [address] Venous Duplex US - Sammy Extrem 09/06/24 0831 MR#: [id number] Acct: [id number] Name: AZALIA MATTHEW II Rep #:[id number] 1 : 1970 53 From: Ferny Hawkins Attending Dr: Dr. Francesco Montgomery MD Status: ADM IN Ordering Dr: Isma Schneider DO Date: 09/06/24 Location: [facility] Sex: M C Admitted: 09/06/24 [...] preliminary report was called and/or faxed to [facility]. VL/Venous Duplex US - Sammy Extrem Interpretation Summary Deep veins of the bilateral lower extremities are patent and compressible segmentally. There is no evidence of bilateral lower extremity deep vein thrombosis. The bilateral great saphenous veins appearpatent and compressible segmentally. Ordering Physician: Isma Schneider Performed By: Fabby Hilliard, RVT 09/06/24 1107 Date _ Ferny Gustafson MD CC: Dr. Isma Schneider DO; Dr. Francesco Montgomery MD; No Primary Care Physician~ Date Dictated: 09/06/24830 Date Transcribed: 09/06/241106 [employer]: Signed [facility] Work Phone: [phone] White blood cell (WBC) count Ordered By: Zachariah Lantigua on 09-06-2024 WBC (Bld) [#/Vol] 10.6 10*3/uL 4.4-11.0 [facility] White blood cell countOrdere d By: Isma Peterson on 09-06-2024 White blood cell count 0-5 SEEN /hpf 0-5 [facility] Absolute lymphocyte countOrd ered By: Isma Peterson on 06-14-2024 Lymphocytes Auto (Unsp spec) [#/Vol] 1.98 10*3/uL 0.83-4.51 [facility] Absolute neutrophil countOrd ered By: Isma Peterson on 06-14-2024 Neutrophils (Bld) [#/Vol] 5.2 10*3/uL 2.0-7.7 [facility] Albumin to globulin ratioOrd ered By: Isma Peterson on 06-14-2024 Albumin/Globulin [Mass ratio] 0.8 {ratio} Low 0.9-2.4 [facility] Automated lymphocyte count a s percentage of total leukocytesOrdered By: Isma Peterson on 06-14-2024 Lymphocytes/100 WBC Auto (Unsp spec) 24.4 % 19- [facility] Basophil percentageOrdered B y: Isma Peterson on 06-14-2024 Basophils/100 WBC (Bld) 0.6 % 0-1 [facility] Bilirubin, totalOrdered By: Isma Peterson on 06-14-2024 Bilirubin [Mass/Vol] 0.60 mg/dL 0.20-1.00 [facility] Comment on above: For patients on eltr ombopag therapy, use of Dimension [place] TBIL is not recommended. Blood urea nitrogen (BUN)/cr eatinine ratioOrdered By: Isma Peterson on 06-14-2024 Urea nitrogen/Creatinine [Mass ratio] 11.1 mg/mg 10- [facility] CBC W/Diff, Automatedon 06-02 Absolute Lymph 1.98 X10 3/uL Normal 0.83-4.51 [facility] Comment on above: Performed By: #### L 501.9520, L500.4050, L501.5200, L501.2300, L100.0100 ####[facility] [address] [place], [address] Absolute Neut 5.2 X10 3/uL Normal 2.0-7.7 [facility] Comment on above: Performed By: #### L 501.9520, L500.4050, L501.5200, L501.2300, L100.0100 ####[facility] [address] [place], [address] Basophils/100 WBC (Bld) 0.6 % Normal 0-1 [facility] Comment on above: Performed By: #### L 501.9520, L500.4050, L501.5200, L501.2300, L100.0100 ####[facility] [address] [place], [address] Eosinophils/100 WBC (Bld) 2.6 % Normal 0-5 [facility] Comment on above: Performed By: #### L 501.9520, L500.4050, L501.5200, L501.2300, L100.0100 ####[facility] [address] [place], [address] Erythrocyte distribution width (RBC) [Ratio] 15.0 % High 11.6-14.6 [facility] Comment on above: Performed By: #### L 501.9520, L500.4050, L501.5200, L501.2300, L100.0100 ####[facility] [address] [place], [address] Hematocrit (Bld) [Volume fraction] 46.2 % Normal 40-54 [facility] Comment on above: Performed By: #### L 501.9520, L500.4050, L501.5200, L501.2300, L100.0100 ####[facility] [address] [place], [address] Hemoglobin (Bld) [Mass/Vol] 14.6 g/dL Normal 13.0-16.5 [facility] Comment on above: Performed By: #### L 501.9520, L500.4050, L501.5200, L501.2300, L100.0100 ####[facility] [address] [place], [address] IG% 0.200 Normal 0.0-0.9 [facility] Comment on above: Result Comment: IG% - Immature Granulocytes (promyelocytes, myelocytes andmetamyelocytes) > 1% indicates that a LEFT SHIFT is Present. Performed By: #### L 501.9520, L500.4050, L501.5200, L501.2300, L100.0100 ####[facility] [address] [place], [address] Lymphocytes/100 WBC (Bld) 24.4 % Normal 19-41 [facility] Comment on above: Performed By: #### L 501.9520, L500.4050, L501.5200, L501.2300, L100.0100 ####[facility] [address] [place], [address] MCH (RBC) [Entitic mass] 29.0 pg Normal 27.0-32.0 [facility] Comment on above: Performed By: #### L 501.9520, L500.4050, L501.5200, L501.2300, L100.0100 ####[facility] [address] [place], [address] MCHC (RBC) [Mass/Vol] 31.6 g/dL Low 32-36 [facility] Comment on above: Performed By: #### L 501.9520, L500.4050, L501.5200, L501.2300, L100.0100 ####[facility] [address] [place], [address] MCV (RBC) [Entitic vol] 91.7 fL Normal 80-94 [facility] Comment on above: Performed By: #### L 501.9520, L500.4050, L501.5200, L501.2300, L100.0100 ####[facility] [address] [place], [address] Monocytes/100 WBC (Bld) 8.1 % Normal 0-10 [facility] Comment on above: Performed By: #### L 501.9520, L500.4050, L501.5200, L501.2300, L100.0100 ####[facility] [address] [place], [address] Neutrophils/100 WBC (Bld) 64.1 % Normal 47-70 [facility] Comment on above: Performed By: #### L 501.9520, L500.4050, L501.5200, L501.2300, L100.0100 ####[facility] [address] [place], [address] Nucleated RBC (Bld) [#/Vol] 0 10*3/uL Normal 0-5 [facility] Comment on above: Performed By: #### L 501.9520, L500.4050, L501.5200, L501.2300, L100.0100 ####[facility] [address] [place], [address] Platelet mean volume (Bld) [Entitic vol] 10.1 fL Normal 6.2-12.0 [facility] Comment on above: Performed By: #### L 501.9520, L500.4050, L501.5200, L501.2300, L100.0100 ####[facility] [address] [place], [address] Platelets (Bld) [#/Vol] 239 10*3/uL Normal 150-450 [facility] Comment on above: Performed By: #### L 501.9520, L500.4050, L501.5200, L501.2300, L100.0100 ####[facility] [address] [place], [address] RBC (Bld) [#/Vol] 5.04 10*6/uL Normal 4.6-6.2 [facility] Comment on above: Performed By: #### L 501.9520, L500.4050, L501.5200, L501.2300, L100.0100 ####[facility] [address] [place], [address] RDW SD 50.0 fl High 35.1-43.9 [facility] Comment on above: Performed By: #### L 501.9520, L500.4050, L501.5200, L501.2300, L100.0100 ####[facility] [address] [place], [address] WBC (Bld) [#/Vol] 8.1 10*3/uL Normal 4.4-11.0 [facility] Comment on above: Performed By: #### L 501.9520, L500.4050, L501.5200, L501.2300, L100.0100 ####[facility] [address] [place], [address] Carbon dioxide measurementOr dered By: Isma Peterson on 06-14-2024 CO2 [Moles/Vol] 31.0 mmol/L 21.0-32.0 [facility] Chloride measurementOrdered By: Isma Peterson on 06-14-2024 Chloride [Moles/Vol] 105 mmol/L 98-107 [facility] Comprehensive Metabolic Prof ilon 06-14-2024 Albumin [Mass/Vol] 3.1 g/dL Low 3.2-5.0 [facility] Comment on above: Performed By: #### L 501.9520, L500.4050, L501.5200, L501.2300, L100.0100 ####[facility] [address] [place], [address] Albumin/Globulin [Mass ratio] 0.8 {ratio} Low 0.9-2.4 [facility] Comment on above: Performed By: #### L 501.9520, L500.4050, L501.5200, L501.2300, L100.0100 ####[facility] [address] [place], [address] ALK P 179 U/L High 45-117 [facility] Comment on above: Performed By: #### L 501.9520, L500.4050, L501.5200, L501.2300, L100.0100 ####[facility] [address] [place], [address] ALT [Catalytic activity/Vol] 37 U/L Normal 16-61 [facility] Comment on above: Performed By: #### L 501.9520, L500.4050, L501.5200, L501.2300, L100.0100 ####[facility] [address] [place], [address] AST [Catalytic activity/Vol] 32 U/L Normal 15-37 [facility] Comment on above: Performed By: #### L 501.9520, L500.4050, L501.5200, L501.2300, L100.0100 ####[facility] [address] [place], [address] Bilirubin [Mass/Vol] 0.60 mg/dL Normal 0.20-1.00 [facility] Comment on above: Result Comment: For patients on eltrombopag therapy, use of Dimension [place] TBIL is not recommended. Performed By: #### L 501.9520, L500.4050, L501.5200, L501.2300, L100.0100 ####[facility] [address] [place], [address] BUN/CRE 11.1 RATIO Normal 10-20 [facility] Comment on above: Performed By: #### L 501.9520, L500.4050, L501.5200, L501.2300, L100.0100 ####[facility] [address] [place], [address] CA,Total 8.5 mg/dL Normal 8.5-10.1 [facility] Comment on above: Performed By: #### L 501.9520, L500.4050, L501.5200, L501.2300, L100.0100 ####[facility] [address] [place], [address] Chloride [Moles/Vol] 105 mmol/L Normal 98-107 [facility] Comment on above: Performed By: #### L 501.9520, L500.4050, L501.5200, L501.2300, L100.0100 ####[facility] [address] [place], [address] CO2 [Moles/Vol] 31.0 mmol/L Normal 21.0-32.0 [facility] Comment on above: Performed By: #### L 501.9520, L500.4050, L501.5200, L501.2300, L100.0100 ####[facility] [address] [place], [address] Creatinine [Mass/Vol] 0.72 mg/dL Normal 0.70-1.30 [facility] Comment on above: Result Comment: The validity of the calculated GFR GFRAA in patients over70 years has not been determined. Clinical correlation isessential. Performed By: #### L 501.9520, L500.4050, L501.5200, L501.2300, L100.0100 ####[facility] [address] [place], [address] ECRCL 233.34 ml/min Normal [facility] Comment on above: Performed By: #### L 501.9520, L500.4050, L501.5200, L501.2300, L100.0100 ####[facility] [address] [place], [address] EST GFR - AA 147 mL/min Normal >60 [facility] Comment on above: Result Comment: Afri can Vietnamese GFR Calc Performed By: #### L 501.9520, L500.4050, L501.5200, L501.2300, L100.0100 ####[facility] [address] [place], [address] GAP 3 Low 5-15 [facility] Comment on above: Performed By: #### L 501.9520, L500.4050, L501.5200, L501.2300, L100.0100 ####[facility] [address] [place], [address] GFR/1.73 sq M.predicted among non-blacks MDRD (S/P/Bld) [Vol rate/Area] 122 mL/min/{1.73_m2} Normal >60 [facility] Comment on above: Result Comment: Non- GFR Calc Performed By: #### L 501.9520, L500.4050, L501.5200, L501.2300, L100.0100 ####[facility] [address] [place], [address] Globulin (S) [Mass/Vol] 3.9 g/dL Normal 2.2-4.2 [facility] Comment on above: Performed By: #### L 501.9520, L500.4050, L501.5200, L501.2300, L100.0100 ####[facility] [address] [place], [address] Glucose [Mass/Vol] 127 mg/dL High 74-106 [facility] Comment on above: Result Comment: Fast ing Glucose result greater than or equal to 126 mg/dLsuggests DIABETES MELLITUS per A.D.A. criteria. Performed By: #### L 501.9520, L500.4050, L501.5200, L501.2300, L100.0100 ####[facility] [address] [place], [address] Potassium [Moles/Vol] 3.4 mmol/L Low 3.5-5.1 [facility] Comment on above: Performed By: #### L 501.9520, L500.4050, L501.5200, L501.2300, L100.0100 ####[facility] [address] [place], [address] Sodium [Moles/Vol] 139 mmol/L Normal 136-145 [facility] Comment on above: Performed By: #### L 501.9520, L500.4050, L501.5200, L501.2300, L100.0100 ####[facility] [address] [place], [address] T PROT 7.0 g/dL Normal 6.4-8.2 [facility] Comment on above: Performed By: #### L 501.9520, L500.4050, L501.5200, L501.2300, L100.0100 ####[facility] [address] [place], [address] Urea nitrogen [Mass/Vol] 8 mg/dL Normal 7-18 [facility] Comment on above: Performed By: #### L 501.9520, L500.4050, L501.5200, L501.2300, L100.0100 ####[facility] [address] [place], [address] Eosinophil percentageOrdered By: Isma Peterson on 06-14-2024 Eosinophils/100 WBC (Bld) 2.6 % 0-5 [facility] Erythrocyte distribution wid th ratioOrdered By: Isma Peterson on 06-14-2024 Erythrocyte distribution width (RBC) [Ratio] 15.0 % High 11.6-14.6 [facility] Erythrocyte distribution wid th standard deviationOrdered By: Isma Peterson on 06-14-2024 Erythrocyte distribution width (RBC) [Ratio] 50.0 fl High 35.1-43.9 [facility] Glomerular filtration rate ( GFR) estimationOrdered By: Isma Peterson on 06-14-2024 GFR/1.73 sq M.predicted among non-blacks MDRD (S/P/Bld) [Vol rate/Area] 122 mL/min/{1.73_m2} >60 [facility] Comment on above: Non- GFR Calc Glucose measurementOrdered B y: Isma Peterson on 06-14-2024 Glucose [Mass/Vol] 127 mg/dL High 74-106 [facility] Comment on above: Fasting Glucose resu lt greater than or equal to 126 mg/dL suggests DIABETES MELLITUS per A.D.A. criteria. Hematocrit Auto (Bld) [Volum e fraction]Ordered By: Isma Peterson on 06-14-2024 Hematocrit (Bld) [Volume fraction] 46.2 % 40-54 [facility] Hemoglobin A1con 06-14-2024 HbA1c (Bld) [Mass fraction] 6.1 % High 3.8-5.6 [facility] Comment on above: Result Comment: Norm al < 5.7 % Prediabetic 5.7 - 6.4 % Diabetic >or= 6.5 % Please note range changes. Performed By: #### L 501.9963 ####[facility] [address] [place], [place], [id number] Hemoglobin A1c percentageOrd ered By: Isma Peterson on 06-14-2024 HbA1c (Bld) [Mass fraction] 6.1 % High 3.8-5.6 [facility] Comment on above: Normal < 5.7 % Predi abetic 5.7 - 6.4 % Diabetic >or= 6.5 % Please note range changes. Hemoglobin measurementOrdere d By: Isma Peterson on 06-14-2024 Hemoglobin (Bld) [Mass/Vol] 14.6 g/dL 13.0-16.5 [facility] Immature granulocytes/100 WB C Auto (Bld)Ordered By: Isma Peterson on 06-14-2024 Immature granulocytes/100 WBC (Bld) 0.200 % 0.0-0.9 [facility] Comment on above: IG% - Immature Granu locytes (promyelocytes, myelocytes and metamyelocytes) > 1% indicates that a LEFT SHIFT is Present. Laboratory - Chemistry and C hemistry - challengeOrdered By: Isma Peterson on 06-14-2024 AST [Catalytic activity/Vol] 32 U/L 15-37 [facility] MCV (mean corpuscular volume ) determinationOrdered By: Isma Peterson on 06-14-2024 MCV (RBC) [Entitic vol] 91.7 fL 80-94 [facility] Magnesiumon 06-14-2024 Magnesium [Mass/Vol] 2.2 mg/dL Normal 1.6-2.6 [facility] Comment on above: Performed By: #### L 501.9520, L500.4050, L501.5200, L501.2300, L100.0100 ####[facility] [address] [place], [address] Magnesium measurementOrdered By: Isma Peterson on 06-14-2024 Magnesium [Mass/Vol] 2.2 mg/dL 1.6-2.6 [facility] Mean corpuscular hemoglobin (MCH) determinationOrdered By: Isma Peetrson on 06-14-2024 MCH (RBC) [Entitic mass] 29.0 pg 27.0-32.0 [facility] Mean corpuscular hemoglobin concentration (MCHC) determinationOrdered By: Isma Peterson on 06-14-2024 MCHC (RBC) [Mass/Vol] 31.6 g/dL Low 32-36 [facility] Mean platelet volume determi nationOrdered By: Isma Peterson on 06-14-2024 Platelet mean volume (Bld) [Entitic vol] 10.1 fL 6.2-12.0 [facility] Monocyte percentageOrdered B y: Isma Peterson on 06-14-2024 Monocytes/100 WBC (Bld) 8.1 % 0-10 [facility] Neutrophil percentageOrdered By: Isma Peterson on 06-14-2024 Neutrophils/100 WBC (Bld) 64.1 % 47-70 [facility] Nucleated red blood cell per centageOrdered By: Isma Peterson on 06-14-2024 Nucleated RBC/100 WBC (Bld) [Ratio] 0 % 0-5 [facility] Phosphoruson 06-14-2024 Phosphate [Mass/Vol] 3.9 mg/dL Normal 2.5-4.9 [facility] Comment on above: Performed By: #### L 501.9520, L500.4050, L501.5200, L501.2300, L100.0100 ####[facility] [address] [place], [place], [id number] Platelet countOrdered By: Ney Peterson on 06-14-2024 Platelets (Bld) [#/Vol] 239 10*3/uL 150-450 [facility] Potassium measurementOrdered By: Isma Peterson on 06-14-2024 Potassium [Moles/Vol] 3.4 mmol/L Low 3.5-5.1 [facility] RBC Auto (Bld) [#/Vol]Ordere d By: Isma Peterson on 06-14-2024 RBC (Bld) [#/Vol] 5.04 10*6/uL 4.6-6.2 [facility] RESPIRATORY PANEL MOLECULARo n 06-14-2024 RP PANEL Normal [facility] Comment on above: Performed By: #### M 100.989 ####[facility] [address] [place], [place], [id number] Respiratory pathogens detect ion panel by molecular detection methodOrdered By: Isma Peterson on 06-14-2024 Respiratory pathogens DNA and RNA panel BANDAR+probe (Resp) [facility] Serum anion gap measurementO rdered By: Isma Peterson on 06-14-2024 Anion gap [Moles/Vol] 3 mmol/L Low 5-15 [facility] Serum globulin measurementOr dered By: Isma Peterson on 06-14-2024 Globulin (S) [Mass/Vol] 3.9 g/dL 2.2-4.2 [facility] Serum or plasma alanine cast otransferase (ALT) measurementOrdered By: Isma Peterson on 06-14-2024 ALT [Catalytic activity/Vol] 37 U/L 16-61 [facility] Serum or plasma albumin rosa urement (mass/volume)Ordered By: Isma Peterson on 06-14-2024 Albumin [Mass/Vol] 3.1 g/dL Low 3.2-5.0 [facility] Serum or plasma alkaline roldan sphatase measurementOrdered By: Isma Peterson on 06-14-2024 ALP [Catalytic activity/Vol] 179 U/L High 45-117 [facility] Serum or plasma calcium rosa urement (mass/volume)Ordered By: Isma Peterson on 06-14-2024 Calcium [Mass/Vol] 8.5 mg/dL 8.5-10.1 [facility] Serum or plasma creatinine m easurement (mass/volume)Ordered By: Isma Peterson on 06-14-2024 Creatinine [Mass/Vol] 0.72 mg/dL 0.70-1.30 [facility] Comment on above: The validity of the calculated GFR & GFRAA in patients over 70 years has not been determined. Clinical correlation is essential. Serum or plasma thyroid stim ulating hormone (TSH) measurement (units/volume)Ordered By: Isma Peterson on 06-14-2024 TSH Qn 1.840 uIU/mL 0.358-3.74 0 [facility] Serum or plasma urea nitroge n measurement (mass/volume)Ordered By: Isma Peterson on 06-14-2024 Urea nitrogen [Mass/Vol] 8 mg/dL 7-18 [facility] Sodium levelOrdered By: Ethan Peterson on 06-14-2024 Sodium [Moles/Vol] 139 mmol/L 136-145 [facility] Thyroid Stim Hormone (TSH)on 06-14-2024 TSH 1.840 uIU/mL Normal 0.358-3.74 0 [facility] Comment on above: Performed By: #### L 501.9520, L500.4050, L501.5200, L501.2300, L100.0100 ####[facility] [address] [place], [place], [address] Total proteinOrdered By: Bryan Peterson on 06-14-2024 Protein [Mass/Vol] 7.0 g/dL 6.4-8.2 [facility] White blood cell (WBC) count Ordered By: Isma Peterson on 06-14-2024 WBC (Bld) [#/Vol] 8.1 10*3/uL 4.4-11.0 [facility] 12 Lead EKGon 06-13-2024 12 Lead EKG Normal [facility] BNP (brain natriuretic pepti de measurement)Ordered By: Jim Cortes on 06-13-2024 Natriuretic peptide B (Bld) [Mass/Vol] 29.4 pg/mL 0-100 [facility] BNP,B-Type NATRIURETIC PEPTI [place] 06-13-2024 Natriuretic peptide B (Bld) [Mass/Vol] 29.4 pg/mL Normal 0-100 [facility] Comment on above: Performed By: #### L 503.6620 ####[facility] [address] [place], [address] Basic Metabolic Profile (BMP )on 06-13-2024 BUN/CRE 10.8 RATIO Normal 10-20 [facility] Comment on above: Order Comment: 'TROP ' Serial specimen #1, #2 or #3: 1 Performed By: #### L 501.4020, L500.2500, L100.0100 ####[facility] [address] [place], [address] CA,Total 8.6 mg/dL Normal 8.5-10.1 [facility] Comment on above: Order Comment: 'TROP ' Serial specimen #1, #2 or #3: 1 Performed By: #### L 501.4020, L500.2500, L100.0100 ####[facility] [address] [place], [address] Chloride [Moles/Vol] 104 mmol/L Normal 98-107 [facility] Comment on above: Order Comment: 'TROP ' Serial specimen #1, #2 or #3: 1 Performed By: #### L 501.4020, L500.2500, L100.0100 ####[facility] [address] [place], [address] CO2 [Moles/Vol] 26.0 mmol/L Normal 21.0-32.0 [facility] Comment on above: Order Comment: 'TROP ' Serial specimen #1, #2 or #3: 1 Performed By: #### L 501.4020, L500.2500, L100.0100 ####[facility] [address] [place], [address] Creatinine [Mass/Vol] 0.83 mg/dL Normal 0.70-1.30 [facility] Comment on above: Order Comment: 'TROP ' Serial specimen #1, #2 or #3: 1 Result Comment: The validity of the calculated GFR GFRAA in patients over70 years has not been determined. Clinical correlation isessential. Performed By: #### L 501.4020, L500.2500, L100.0100 ####[facility] [address] [place], [address] ECRCL 212.46 ml/min Normal [facility] Comment on above: Order Comment: 'TROP ' Serial specimen #1, #2 or #3: 1 Performed By: #### L 501.4020, L500.2500, L100.0100 ####[facility] [address] [place], [address] EST GFR - AA 125 mL/min Normal >60 [facility] Comment on above: Order Comment: 'TROP ' Serial specimen #1, #2 or #3: 1 Result Comment: Afri can Vietnamese GFR Calc Performed By: #### L 501.4020, L500.2500, L100.0100 ####[facility] [address] [place], [address] GAP 6 Normal 5-15 [facility] Comment on above: Order Comment: 'TROP ' Serial specimen #1, #2 or #3: 1 Performed By: #### L 501.4020, L500.2500, L100.0100 ####[facility] [address] [place], [address] GFR/1.73 sq M.predicted among non-blacks MDRD (S/P/Bld) [Vol rate/Area] 103 mL/min/{1.73_m2} Normal >60 [facility] Comment on above: Order Comment: 'TROP ' Serial specimen #1, #2 or #3: 1 Result Comment: Non- GFR Calc Performed By: #### L 501.4020, L500.2500, L100.0100 ####[facility] [address] [place], [address] Glucose [Mass/Vol] 113 mg/dL High 74-106 [facility] Comment on above: Order Comment: 'TROP ' Serial specimen #1, #2 or #3: 1 Result Comment: Fast ing Glucose result from 100 to 125 mg/dLsuggests IMPAIRED HOMEOSTASIS per A.D.A. criteria. Performed By: #### L 501.4020, L500.2500, L100.0100 ####[facility] [address] [place], [address] Potassium [Moles/Vol] 3.9 mmol/L Normal 3.5-5.1 [facility] Comment on above: Order Comment: 'TROP ' Serial specimen #1, #2 or #3: 1 Result Comment: Mode rate Hemolysis, Result may be falsely increased. Performed By: #### L 501.4020, L500.2500, L100.0100 ####[facility] [address] [place], [address] Sodium [Moles/Vol] 136 mmol/L Normal 136-145 [facility] Comment on above: Order Comment: 'TROP ' Serial specimen #1, #2 or #3: 1 Performed By: #### L 501.4020, L500.2500, L100.0100 ####[facility] [address] [place], [address] Urea nitrogen [Mass/Vol] 9 mg/dL Normal 7-18 [facility] Comment on above: Order Comment: 'TROP ' Serial specimen #1, #2 or #3: 1 Performed By: #### L 501.4020, L500.2500, L100.0100 ####[facility] [address] [place], [address] CBC W/Diff, Automatedon 06-02 Absolute Lymph 2.46 X10 3/uL Normal 0.83-4.51 [facility] Comment on above: Performed By: #### L 100.0100 ####[facility] [address] [place], [address] Absolute Neut 6.3 X10 3/uL Normal 2.0-7.7 [facility] Comment on above: Performed By: #### L 100.0100 ####[facility] [address] [place], [address] Basophils/100 WBC (Bld) 0.3 % Normal 0-1 [facility] Comment on above: Performed By: #### L 100.0100 ####[facility] [address] [place], [address] Eosinophils/100 WBC (Bld) 2.0 % Normal 0-5 [facility] Comment on above: Performed By: #### L 100.0100 ####[facility] [address] [place], [address] Erythrocyte distribution width (RBC) [Ratio] 14.6 % Normal 11.6-14.6 [facility] Comment on above: Performed By: #### L 100.0100 ####[facility] [address] [place], [address] Hematocrit (Bld) [Volume fraction] 47.6 % Normal 40-54 [facility] Comment on above: Performed By: #### L 100.0100 ####[facility] [address] [place], [address] Hemoglobin (Bld) [Mass/Vol] 15.3 g/dL Normal 13.0-16.5 [facility] Comment on above: Performed By: #### L 100.0100 ####[facility] [address] [place], [address] IG% 0.300 Normal 0.0-0.9 [facility] Comment on above: Result Comment: IG% - Immature Granulocytes (promyelocytes, myelocytes andmetamyelocytes) > 1% indicates that a LEFT SHIFT is Present. Performed By: #### L 100.0100 ####[facility] [address] [place], [address] Lymphocytes/100 WBC (Bld) 25.3 % Normal 19-41 [facility] Comment on above: Performed By: #### L 100.0100 ####[facility] [address] [place], [address] MCH (RBC) [Entitic mass] 28.9 pg Normal 27.0-32.0 [facility] Comment on above: Performed By: #### L 100.0100 ####[facility] [address] [place], [address] MCHC (RBC) [Mass/Vol] 32.1 g/dL Normal 32-36 [facility] Comment on above: Performed By: #### L 100.0100 ####[facility] [address] [place], [address] MCV (RBC) [Entitic vol] 89.8 fL Normal 80-94 [facility] Comment on above: Performed By: #### L 100.0100 ####[facility] [address] [place], [address] Monocytes/100 WBC (Bld) 7.5 % Normal 0-10 [facility] Comment on above: Performed By: #### L 100.0100 ####[facility] [address] [place], [address] Neutrophils/100 WBC (Bld) 64.6 % Normal 47-70 [facility] Comment on above: Performed By: #### L 100.0100 ####[facility] [address] [place], [address] Nucleated RBC (Bld) [#/Vol] 0 10*3/uL Normal 0-5 [facility] Comment on above: Performed By: #### L 100.0100 ####[facility] [address] [place], [address] Platelet mean volume (Bld) [Entitic vol] 9.9 fL Normal 6.2-12.0 [facility] Comment on above: Performed By: #### L 100.0100 ####[facility] [address] [place], [address] Platelets (Bld) [#/Vol] 231 10*3/uL Normal 150-450 [facility] Comment on above: Performed By: #### L 100.0100 ####[facility] [address] [place], [address] RBC (Bld) [#/Vol] 5.30 10*6/uL Normal 4.6-6.2 [facility] Comment on above: Performed By: #### L 100.0100 ####[facility] [address] [place], [address] RDW SD 47.6 fl High 35.1-43.9 [facility] Comment on above: Performed By: #### L 100.0100 ####[facility] [address] [place], [address] WBC (Bld) [#/Vol] 9.7 10*3/uL Normal 4.4-11.0 [facility] Comment on above: Performed By: #### L 100.0100 ####[facility] [address] [place], [address] Absolute Neut Normal 2.0-7.7 [facility] Comment on above: Result Comment: CELIO BEAVERS, SPOKE WITH LEONA Performed By: #### L 501.4020, L500.2500, L100.0100 ####[facility] [address] [place], [address] HCT Normal 40-54 [facility] Comment on above: Result Comment: CELIO BEAVERS, SPOKE WITH LEONA Performed By: #### L 501.4020, L500.2500, L100.0100 ####[facility] [address] [place], [address] HGB Normal 13.0-16.5 [facility] Comment on above: Result Comment: CELIO BEAVERS, SPOKE WITH LEONA Performed By: #### L 501.4020, L500.2500, L100.0100 ####[facility] [address] [place], [address] MCH Normal 27.0-32.0 [facility] Comment on above: Result Comment: CELIO BEAVERS, SPOKE WITH LEONA Performed By: #### L 501.4020, L500.2500, L100.0100 ####[facility] [address] [place], [address] MCHC Normal 32-36 [facility] Comment on above: Result Comment: CELIO BEAVERS, SPOKE WITH LEONA Performed By: #### L 501.4020, L500.2500, L100.0100 ####[facility] [address] [place], [address] MCV Normal 80-94 [facility] Comment on above: Result Comment: CELIO BEAVERS, SPOKE WITH LEONA Performed By: #### L 501.4020, L500.2500, L100.0100 ####[facility] [address] [place], [address] NEUT% Normal 47-70 [facility] Comment on above: Result Comment: CELIO BEAVERS, SPOKE WITH LEONA Performed By: #### L 501.4020, L500.2500, L100.0100 ####[facility] [address] [place], [address] PLT Normal 150-450 [facility] Comment on above: Result Comment: CELIO BEAVERS, SPOKE WITH LEONA Performed By: #### L 501.4020, L500.2500, L100.0100 ####[facility] [address] [place], [address] RBC Normal 4.6-6.2 [facility] Comment on above: Result Comment: CELIO BEAVERS, SPOKE WITH LEONA Performed By: #### L 501.4020, L500.2500, L100.0100 ####[facility] [address] [place], [address] RDW CV Normal 11.6-14.6 [facility] Comment on above: Result Comment: CELIO BEAVERS, SPOKE WITH LEONA Performed By: #### L 501.4020, L500.2500, L100.0100 ####[facility] [address] [place], [address] RDW SD Normal 35.1-43.9 [facility] Comment on above: Result Comment: CELIO BEAVERS, SPOKE WITH LEONA Performed By: #### L 501.4020, L500.2500, L100.0100 ####[facility] [address] [place], [address] WBC Normal 4.4-11.0 [facility] Comment on above: Result Comment: CELIO BEAVERS, SPOKE WITH LEONA Performed By: #### L 501.4020, L500.2500, L100.0100 ####[facility] [address] [place], [address] CO2 (BldV) [Moles/Vol]Ordere d By: Jim Cortes on 06-13-2024 CO2 [Moles/Vol] 35 mmol/L High 23-33 [facility] Chest 1 View (Portable)on Chest 1 View (Portable) Normal [facility] Emergency Department Summary on 06-13-2024 Emergency Department Summary Normal [facility] H AND P Exam - Hospitaliston 06-13-2024 H&P Exam - Hospitalist Normal [facility] Influenza virus A and B and SARS-CoV-2 (COVID-19) and Respiratory syncytial virus RNAOrdered By: Jim Cortes on 06-13-2024 SARS-CoV-2 (COVID-19) RNA BANDAR+probe Ql (Unsp spec) [facility] L501.4020on 06-13-2024 TROPONIN-I HS 12 pg/mL Normal 3.0-78.0 [facility] Comment on above: Order Comment: 'TROP ' Serial specimen #1, #2 or #3: 1 Result Comment: Adrienne leon Note: New Test Units and Gender Specific Reference Ranges. For more information see Policy Stat Procedure [place] High Sensitivity Troponin (TNIH) and attachments. Performed By: #### L 501.4020, L500.2500, L100.0100 ####[facility] [address] [place], [address] M100.678on 06-13-2024 M100.678 SARS-CoV-2 (COVID 19 ) Negative INFLUENZA A Negative INFLUENZA B Negative RSV PCR Negative Normal [facility] Comment on above: Performed By: #### M 100.678 ####[facility] [address] [place], [address] No Panel InformationOrdered By: Jim Cortes on 06-13-2024 Blood Gas Sample Site Not entered [facility] Blood Gas Specimen Type BUD [facility] Oxygen Delivery Device Cannula [facility] Troponin IOrdered By: Jim Cortes on 06-13-2024 Troponin I 12 pg/mL 3.0-78.0 [facility] Comment on above: Please Note: New Fartun t Units and Gender Specific Reference Ranges. For more information see Policy Stat Procedure [place] High Sensitivity Troponin (TNIH) and attachments. Venous Blood Gason 5 Blood Gas Type BUD Normal [facility] Comment on above: Performed By: #### L 9000.0810 ####[facility] [address] [place], [address] CO2 [Moles/Vol] 35 mmol/L High 23-33 [facility] Comment on above: Performed By: #### L 9000.0810 ####[facility] [address] [place], [address] FI02 3.0 Normal [facility] Comment on above: Performed By: #### L 9000.0810 ####[facility] [address] [place], [address] HCO3 (Bld) [Moles/Vol] 33 mmol/L High 22-26 [facility] Comment on above: Performed By: #### L 9000.0810 ####[facility] [address] [place], [address] O2 Delivery Dev Cannula Normal [facility] Comment on above: Performed By: #### L 9000.0810 ####[facility] [address] [place], [address] SITE Not entered [facility] Comment on above: Performed By: #### L 9000.0810 ####[facility] [address] [place], [address] VBG BE 8 mmol/L High -1.0-3.5 [facility] Comment on above: Performed By: #### L 9000.0810 ####[facility] [address] [place], [address] VBG pCO2 59.9 mmHg High 41-51 [facility] Comment on above: Performed By: #### L 9000.0810 ####[facility] [address] [place], [address] VBG pH 7.35 Normal 7.32-7.42 [facility] Comment on above: Performed By: #### L 9000.0810 ####[facility] [address] [place], [address] VBG PO2 48 mmHg High 25-40 [facility] Comment on above: Performed By: #### L 9000.0810 ####[facility] [address] [place], [address] VBG SO2 80 High 50-70 [facility] Comment on above: Performed By: #### L 9000.0810 ####[facility] [address] [place], [place], [id number] Venous blood base excess catherine surementOrdered By: Jim Cortes on 06-13-2024 Base excess Calc (BldV) [Moles/Vol] 8 mmol/L High -1.0-3.5 [facility] Venous blood bicarbonate catherine surementOrdered By: Jim Cortes on 06-13-2024 HCO3 (Bld) [Moles/Vol] 33 mmol/L High 22-26 [facility] Venous blood oxygen saturati on measurementOrdered By: Jim Cortes on 06-13-2024 Oxygen saturation in Blood 80 % High 50-70 [facility] Venous blood pH measurementO rdered By: Jim Cortes on 06-13-2024 pH (BldV) 7.35 [pH] 7.32-7.42 [facility] Venous blood partial pressur e of carbon dioxide measurementOrdered By: Jim Cortes on 06-13-2024 CO2 (BldV) [Partial pressure] 59.9 mm[Hg] High 41-51 [facility] Venous blood partial pressur e of oxygen measurementOrdered By: Jim Cortes on 06-13-2024 Oxygen (BldV) [Partial pressure] 48 mm[Hg] High 25-40 [facility] Lower Ext Art Exam w/o Exerc miguelito 01-06-2024 Lower Ext Art Exam w/o Exercis Normal [facility] Culture, Blood (WB)on 2023 CUB Blood cultures x2, f rom two different sites No growth in 5 days. Normal [facility] Comment on above: Performed By: #### M 200.1000 ####[facility] [address] [place], [place], [id number] Wound Ctr History AND Physic armond 12-28-2023 Wound Ctr History & Physical Normal [facility] Basic Metabolic Profile (BMP )on 12-26-2023 BUN Normal 7-18 [facility] Comment on above: Result Comment: Canc elled via OM: Order cancelled - Patient discharged Performed By: #### L 100.0100, L500.2500 ####[facility] [address] [place], [address] BUN/CRE Normal 10-20 [facility] Comment on above: Result Comment: Canc elled via OM: Order cancelled - Patient discharged Performed By: #### L 100.0100, L500.2500 ####[facility] [address] [place], [address] CA,Total Normal 8.5-10.1 [facility] Comment on above: Result Comment: Canc elled via OM: Order cancelled - Patient discharged Performed By: #### L 100.0100, L500.2500 ####[facility] [address] [place], [address] CL Normal 98-107 [facility] Comment on above: Result Comment: Canc elled via OM: Order cancelled - Patient discharged Performed By: #### L 100.0100, L500.2500 ####[facility] [address] [place], [address] CO2 Normal 21.0-32.0 [facility] Comment on above: Result Comment: Canc elled via OM: Order cancelled - Patient discharged Performed By: #### L 100.0100, L500.2500 ####[facility] [address] [place], [address] CREAT,SERUM Normal 0.70-1.30 [facility] Comment on above: Result Comment: Canc elled via OM: Order cancelled - Patient discharged Performed By: #### L 100.0100, L500.2500 ####[facility] [address] [place], [address] EST GFR Normal >60 [facility] Comment on above: Result Comment: Canc elled via OM: Order cancelled - Patient discharged Performed By: #### L 100.0100, L500.2500 ####[facility] [address] [place], [address] EST GFR - AA Normal >60 [facility] Comment on above: Result Comment: Canc elled via OM: Order cancelled - Patient discharged Performed By: #### L 100.0100, L500.2500 ####[facility] [address] [place], [address] GAP Normal 5-15 [facility] Comment on above: Result Comment: Canc elled via OM: Order cancelled - Patient discharged Performed By: #### L 100.0100, L500.2500 ####[facility] [address] [place], [address] GLU Normal 74-106 [facility] Comment on above: Result Comment: Canc elled via OM: Order cancelled - Patient discharged Performed By: #### L 100.0100, L500.2500 ####[facility] [address] [place], [address] Potassium Normal 3.5-5.1 [facility] Comment on above: Result Comment: Canc elled via OM: Order cancelled - Patient discharged Performed By: #### L 100.0100, L500.2500 ####[facility] [address] [place], [address] Basic Metabolic Profile (BMP) Normal 136-145 [facility] Comment on above: Result Comment: Canc elled via OM: Order cancelled - Patient discharged Performed By: #### L 100.0100, L500.2500 ####[facility] [address] [place], [address] CBC W/Diff, Automatedon 08-2 Absolute Neut Normal 2.0-7.7 [facility] Comment on above: Result Comment: Canc elled via OM: Order cancelled - Patient discharged Performed By: #### L 100.0100, L500.2500 ####[facility] [address] [place], [address] HCT Normal 40-54 [facility] Comment on above: Result Comment: Canc elled via OM: Order cancelled - Patient discharged Performed By: #### L 100.0100, L500.2500 ####[facility] [address] [place], [address] HGB Normal 13.0-16.5 [facility] Comment on above: Result Comment: Canc elled via OM: Order cancelled - Patient discharged Performed By: #### L 100.0100, L500.2500 ####[facility] [address] [place], [address] MCH Normal 27.0-32.0 [facility] Comment on above: Result Comment: Canc elled via OM: Order cancelled - Patient discharged Performed By: #### L 100.0100, L500.2500 ####[facility] [address] [place], [address] MCHC Normal 32-36 [facility] Comment on above: Result Comment: Canc elled via OM: Order cancelled - Patient discharged Performed By: #### L 100.0100, L500.2500 ####[facility] [address] [place], [address] MCV Normal 80-94 [facility] Comment on above: Result Comment: Canc elled via OM: Order cancelled - Patient discharged Performed By: #### L 100.0100, L500.2500 ####[facility] [address] [place], [address] NEUT% Normal 47-70 [facility] Comment on above: Result Comment: Canc elled via OM: Order cancelled - Patient discharged Performed By: #### L 100.0100, L500.2500 ####[facility] [address] [place], [address] PLT Normal 150-450 [facility] Comment on above: Result Comment: Canc elled via OM: Order cancelled - Patient discharged Performed By: #### L 100.0100, L500.2500 ####[facility] [address] [place], [address] RBC Normal 4.6-6.2 [facility] Comment on above: Result Comment: Canc elled via OM: Order cancelled - Patient discharged Performed By: #### L 100.0100, L500.2500 ####[facility] [address] [place], [address] RDW CV Normal 11.6-14.6 [facility] Comment on above: Result Comment: Canc elled via OM: Order cancelled - Patient discharged Performed By: #### L 100.0100, L500.2500 ####[facility] [address] [place], [address] RDW SD Normal 35.1-43.9 [facility] Comment on above: Result Comment: Canc elled via OM: Order cancelled - Patient discharged Performed By: #### L 100.0100, L500.2500 ####[facility] [address] [place], [address] WBC Normal 4.4-11.0 [facility] Comment on above: Result Comment: Canc elled via OM: Order cancelled - Patient discharged Performed By: #### L 100.0100, L500.2500 ####[facility] [address] [place], [address] Wound Cultureon 12-26-2023 WC Normal [facility] Comment on above: Performed By: #### M 8200.1075, M100.3000, M100.2000 ####[facility] [address] [place], [address] Basic Metabolic Profile (BMP )on 12-25-2023 BUN/CRE 21.9 RATIO High 10-20 [facility] Comment on above: Performed By: #### L 100.0100, L500.2500 ####[facility] [address] [place], [address] CA,Total 9.0 mg/dL Normal 8.5-10.1 [facility] Comment on above: Performed By: #### L 100.0100, L500.2500 ####[facility] [address] [place], [address] Chloride [Moles/Vol] 98 mmol/L Normal 98-107 [facility] Comment on above: Performed By: #### L 100.0100, L500.2500 ####[facility] [address] [place], [address] CO2 [Moles/Vol] 34.0 mmol/L High 21.0-32.0 [facility] Comment on above: Performed By: #### L 100.0100, L500.2500 ####[facility] [address] [place], [address] Creatinine [Mass/Vol] 0.78 mg/dL Normal 0.70-1.30 [facility] Comment on above: Result Comment: The validity of the calculated GFR GFRAA in patients over70 years has not been determined. Clinical correlation isessential. Performed By: #### L 100.0100, L500.2500 ####[facility] [address] [place], [address] ECRCL 214.23 ml/min Normal [facility] Comment on above: Performed By: #### L 100.0100, L500.2500 ####[facility] [address] [place], [address] EST GFR - AA 135 mL/min Normal >60 [facility] Comment on above: Result Comment: Afri can Vietnamese GFR Calc Performed By: #### L 100.0100, L500.2500 ####[facility] [address] [place], [address] GAP 5 Normal 5-15 [facility] Comment on above: Performed By: #### L 100.0100, L500.2500 ####[facility] [address] [place], [address] GFR/1.73 sq M.predicted among non-blacks MDRD (S/P/Bld) [Vol rate/Area] 112 mL/min/{1.73_m2} Normal >60 [facility] Comment on above: Result Comment: Non- GFR Calc Performed By: #### L 100.0100, L500.2500 ####[facility] [address] [place], [address] Glucose [Mass/Vol] 116 mg/dL High 74-106 [facility] Comment on above: Result Comment: Fast ing Glucose result from 100 to 125 mg/dLsuggests IMPAIRED HOMEOSTASIS per A.D.A. criteria. Performed By: #### L 100.0100, L500.2500 ####[facility] [address] [place], [address] Potassium [Moles/Vol] 3.8 mmol/L Normal 3.5-5.1 [facility] Comment on above: Performed By: #### L 100.0100, L500.2500 ####[facility] [address] [place], [address] Sodium [Moles/Vol] 137 mmol/L Normal 136-145 [facility] Comment on above: Performed By: #### L 100.0100, L500.2500 ####[facility] [address] [place], [address] Urea nitrogen [Mass/Vol] 17 mg/dL Normal 7-18 [facility] Comment on above: Performed By: #### L 100.0100, L500.2500 ####[facility] [address] [place], [address] CBC W/Diff, Automatedon 08-2023 Absolute Lymph 2.03 X10 3/uL Normal 0.83-4.51 [facility] Comment on above: Performed By: #### L 100.0100, L500.2500 ####[facility] [address] [place], [address] Absolute Neut 3.6 X10 3/uL Normal 2.0-7.7 [facility] Comment on above: Performed By: #### L 100.0100, L500.2500 ####[facility] [address] [place], [address] Basophils/100 WBC (Bld) 0.8 % Normal 0-1 [facility] Comment on above: Performed By: #### L 100.0100, L500.2500 ####[facility] [address] [place], [address] Eosinophils/100 WBC (Bld) 4.1 % Normal 0-5 [facility] Comment on above: Performed By: #### L 100.0100, L500.2500 ####[facility] [address] [place], [address] Erythrocyte distribution width (RBC) [Ratio] 14.2 % Normal 11.6-14.6 [facility] Comment on above: Performed By: #### L 100.0100, L500.2500 ####[facility] [address] [place], [address] Hematocrit (Bld) [Volume fraction] 51.2 % Normal 40-54 [facility] Comment on above: Performed By: #### L 100.0100, L500.2500 ####[facility] [address] [place], [address] Hemoglobin (Bld) [Mass/Vol] 16.2 g/dL Normal 13.0-16.5 [facility] Comment on above: Performed By: #### L 100.0100, L500.2500 ####[facility] [address] [place], [address] IG% 0.200 Normal 0.0-0.9 [facility] Comment on above: Result Comment: IG% - Immature Granulocytes (promyelocytes, myelocytes andmetamyelocytes) > 1% indicates that a LEFT SHIFT is Present. Performed By: #### L 100.0100, L500.2500 ####[facility] [address] [place], [address] Lymphocytes/100 WBC (Bld) 31.7 % Normal 19-41 [facility] Comment on above: Performed By: #### L 100.0100, L500.2500 ####[facility] [address] [place], [address] MCH (RBC) [Entitic mass] 28.5 pg Normal 27.0-32.0 [facility] Comment on above: Performed By: #### L 100.0100, L500.2500 ####[facility] [address] [place], [address] MCHC (RBC) [Mass/Vol] 31.6 g/dL Low 32-36 [facility] Comment on above: Performed By: #### L 100.0100, L500.2500 ####[facility] [address] [place], [address] MCV (RBC) [Entitic vol] 90.0 fL Normal 80-94 [facility] Comment on above: Performed By: #### L 100.0100, L500.2500 ####[facility] [address] [place], [address] Monocytes/100 WBC (Bld) 8.0 % Normal 0-10 [facility] Comment on above: Performed By: #### L 100.0100, L500.2500 ####[facility] [address] [place], [address] Neutrophils/100 WBC (Bld) 55.2 % Normal 47-70 [facility] Comment on above: Performed By: #### L 100.0100, L500.2500 ####[facility] [address] [place], [address] Nucleated RBC (Bld) [#/Vol] 0 10*3/uL Normal 0-5 [facility] Comment on above: Performed By: #### L 100.0100, L500.2500 ####[facility] [address] [place], [address] Platelet mean volume (Bld) [Entitic vol] 9.4 fL Normal 6.2-12.0 [facility] Comment on above: Performed By: #### L 100.0100, L500.2500 ####[facility] [address] [place], [address] Platelets (Bld) [#/Vol] 271 10*3/uL Normal 150-450 [facility] Comment on above: Performed By: #### L 100.0100, L500.2500 ####[facility] [address] [place], [address] RBC (Bld) [#/Vol] 5.69 10*6/uL Normal 4.6-6.2 [facility] Comment on above: Performed By: #### L 100.0100, L500.2500 ####[facility] [address] [place], [address] RDW SD 46.6 fl High 35.1-43.9 [facility] Comment on above: Performed By: #### L 100.0100, L500.2500 ####[facility] [address] [place], [address] WBC (Bld) [#/Vol] 6.4 10*3/uL Normal 4.4-11.0 [facility] Comment on above: Performed By: #### L 100.0100, L500.2500 ####[facility] [address] [place], [address] Basic Metabolic Profile (BMP )on 12-24-2023 BUN/CRE 19.1 RATIO Normal 10-20 [facility] Comment on above: Performed By: #### L 501.2300, L501.5200, L100.0100, L500.2500 ####[facility] [address] [place], [address] CA,Total 8.4 mg/dL Low 8.5-10.1 [facility] Comment on above: Performed By: #### L 501.2300, L501.5200, L100.0100, L500.2500 ####[facility] [address] [place], [address] Chloride [Moles/Vol] 98 mmol/L Normal 98-107 [facility] Comment on above: Performed By: #### L 501.2300, L501.5200, L100.0100, L500.2500 ####[facility] [address] [place], [address] CO2 [Moles/Vol] 35.0 mmol/L High 21.0-32.0 [facility] Comment on above: Performed By: #### L 501.2300, L501.5200, L100.0100, L500.2500 ####[facility] [address] [place], [address] Creatinine [Mass/Vol] 0.73 mg/dL Normal 0.70-1.30 [facility] Comment on above: Result Comment: The validity of the calculated GFR GFRAA in patients over70 years has not been determined. Clinical correlation isessential. Performed By: #### L 501.2300, L501.5200, L100.0100, L500.2500 ####[facility] [address] [place], [address] ECRCL 228.91 ml/min Normal [facility] Comment on above: Performed By: #### L 501.2300, L501.5200, L100.0100, L500.2500 ####[facility] [address] [place], [address] EST GFR - AA 144 mL/min Normal >60 [facility] Comment on above: Result Comment: Afri can Vietnamese GFR Calc Performed By: #### L 501.2300, L501.5200, L100.0100, L500.2500 ####[facility] [address] [place], [address] GAP 3 Low 5-15 [facility] Comment on above: Performed By: #### L 501.2300, L501.5200, L100.0100, L500.2500 ####[facility] [address] [place], [address] GFR/1.73 sq M.predicted among non-blacks MDRD (S/P/Bld) [Vol rate/Area] 119 mL/min/{1.73_m2} Normal >60 [facility] Comment on above: Result Comment: Non- GFR Calc Performed By: #### L 501.2300, L501.5200, L100.0100, L500.2500 ####[facility] [address] [place], [address] Glucose [Mass/Vol] 142 mg/dL High 74-106 [facility] Comment on above: Result Comment: Fast ing Glucose result greater than or equal to 126 mg/dLsuggests DIABETES MELLITUS per A.D.A. criteria. Performed By: #### L 501.2300, L501.5200, L100.0100, L500.2500 ####[facility] [address] [place], [address] Potassium [Moles/Vol] 3.5 mmol/L Normal 3.5-5.1 [facility] Comment on above: Performed By: #### L 501.2300, L501.5200, L100.0100, L500.2500 ####[facility] [address] [place], [address] Sodium [Moles/Vol] 136 mmol/L Normal 136-145 [facility] Comment on above: Performed By: #### L 501.2300, L501.5200, L100.0100, L500.2500 ####[facility] [address] [place], [address] Urea nitrogen [Mass/Vol] 14 mg/dL Normal 7-18 [facility] Comment on above: Performed By: #### L 501.2300, L501.5200, L100.0100, L500.2500 ####[facility] [address] [place], [address] CBC W/Diff, Automatedon 08- Absolute Lymph 1.92 X10 3/uL Normal 0.83-4.51 [facility] Comment on above: Performed By: #### L 501.2300, L501.5200, L100.0100, L500.2500 ####[facility] [address] [place], [address] Absolute Neut 3.6 X10 3/uL Normal 2.0-7.7 [facility] Comment on above: Performed By: #### L 501.2300, L501.5200, L100.0100, L500.2500 ####[facility] [address] [place], [address] Basophils/100 WBC (Bld) 0.8 % Normal 0-1 [facility] Comment on above: Performed By: #### L 501.2300, L501.5200, L100.0100, L500.2500 ####[facility] [address] [place], [address] Eosinophils/100 WBC (Bld) 4.2 % Normal 0-5 [facility] Comment on above: Performed By: #### L 501.2300, L501.5200, L100.0100, L500.2500 ####[facility] [address] [place], [address] Erythrocyte distribution width (RBC) [Ratio] 14.6 % Normal 11.6-14.6 [facility] Comment on above: Performed By: #### L 501.2300, L501.5200, L100.0100, L500.2500 ####[facility] [address] [place], [address] Hematocrit (Bld) [Volume fraction] 50.5 % Normal 40-54 [facility] Comment on above: Performed By: #### L 501.2300, L501.5200, L100.0100, L500.2500 ####[facility] [address] [place], [address] Hemoglobin (Bld) [Mass/Vol] 15.8 g/dL Normal 13.0-16.5 [facility] Comment on above: Performed By: #### L 501.2300, L501.5200, L100.0100, L500.2500 ####[facility] [address] [place], [address] IG% 0.300 Normal 0.0-0.9 [facility] Comment on above: Result Comment: IG% - Immature Granulocytes (promyelocytes, myelocytes andmetamyelocytes) > 1% indicates that a LEFT SHIFT is Present. Performed By: #### L 501.2300, L501.5200, L100.0100, L500.2500 ####[facility] [address] [place], [address] Lymphocytes/100 WBC (Bld) 30.1 % Normal 19-41 [facility] Comment on above: Performed By: #### L 501.2300, L501.5200, L100.0100, L500.2500 ####[facility] [address] [place], [address] MCH (RBC) [Entitic mass] 28.5 pg Normal 27.0-32.0 [facility] Comment on above: Performed By: #### L 501.2300, L501.5200, L100.0100, L500.2500 ####[facility] [address] [place], [address] MCHC (RBC) [Mass/Vol] 31.3 g/dL Low 32-36 [facility] Comment on above: Performed By: #### L 501.2300, L501.5200, L100.0100, L500.2500 ####[facility] [address] [place], [address] MCV (RBC) [Entitic vol] 91.2 fL Normal 80-94 [facility] Comment on above: Performed By: #### L 501.2300, L501.5200, L100.0100, L500.2500 ####[facility] [address] [place], [address] Monocytes/100 WBC (Bld) 8.6 % Normal 0-10 [facility] Comment on above: Performed By: #### L 501.2300, L501.5200, L100.0100, L500.2500 ####[facility] [address] [place], [address] Neutrophils/100 WBC (Bld) 56.0 % Normal 47-70 [facility] Comment on above: Performed By: #### L 501.2300, L501.5200, L100.0100, L500.2500 ####[facility] [address] [place], [address] Nucleated RBC (Bld) [#/Vol] 0 10*3/uL Normal 0-5 [facility] Comment on above: Performed By: #### L 501.2300, L501.5200, L100.0100, L500.2500 ####[facility] [address] [place], [address] Platelet mean volume (Bld) [Entitic vol] 9.3 fL Normal 6.2-12.0 [facility] Comment on above: Performed By: #### L 501.2300, L501.5200, L100.0100, L500.2500 ####[facility] [address] [place], [address] Platelets (Bld) [#/Vol] 252 10*3/uL Normal 150-450 [facility] Comment on above: Performed By: #### L 501.2300, L501.5200, L100.0100, L500.2500 ####[facility] [address] [place], [address] RBC (Bld) [#/Vol] 5.54 10*6/uL Normal 4.6-6.2 [facility] Comment on above: Performed By: #### L 501.2300, L501.5200, L100.0100, L500.2500 ####[facility] [address] [place], [address] RDW SD 49.0 fl High 35.1-43.9 [facility] Comment on above: Performed By: #### L 501.2300, L501.5200, L100.0100, L500.2500 ####[facility] [address] [place], [address] WBC (Bld) [#/Vol] 6.4 10*3/uL Normal 4.4-11.0 [facility] Comment on above: Performed By: #### L 501.2300, L501.5200, L100.0100, L500.2500 ####[facility] [address] [place], [address] Magnesiumon 12-24-2023 Magnesium [Mass/Vol] 2.2 mg/dL Normal 1.6-2.6 [facility] Comment on above: Performed By: #### L 501.2300, L501.5200, L100.0100, L500.2500 ####[facility] [address] [place], [address] Phosphoruson 12-24-2023 Phosphate [Mass/Vol] 3.4 mg/dL Normal 2.5-4.9 [facility] Comment on above: Performed By: #### L 501.2300, L501.5200, L100.0100, L500.2500 ####[facility] [address] [place], [address] Urine Cultureon 12-24-2023 URC Below infection leve l. Mixed Gram Positive Organisms [place] Count 1000-10,000 MIXC Mixed contaminants. Submit a new specimen if indicated. Normal [facility] Comment on above: Performed By: #### M 100.2200, L400.0001 ####[facility] [address] [place], [address] Vancomycin, Trough Levelon 0 12-24-2023 VANCO, TROUGH 15.4 ug/mL High 5.0-15.0 [facility] Comment on above: Order Comment: Comme nts: Trough to be drawn 30 mins prior to scheduled [id number] Result Comment: VANC OMYCIN STANDARED DRUG THERAPY TROUGH LEVEL: 5.0 - 15.0 mg/LVANCOMYCIN HIGH INTENSITY THERAPY TROUGH LEVEL: 15.0 - 20.0 mg/LHigh Intensity therapy recommended for serious lifethreatening infections include:- Ddlhmbyguf-Wjkpunnozglo-Qrzbktuyo (Ventilator/Healtcare Associated)-SepsisPLEASE CONTACT PHARMACY SERVICES (#7861) FOR INTERPRETATIONOF RESULTS. Performed By: #### L 501.8820 ####[facility] [address] [place], [address] Basic Metabolic Profile (BMP )on 12-23-2023 BUN/CRE 12.2 RATIO Normal 10-20 [facility] Comment on above: Performed By: #### L 501.9520, L500.2500, L501.5200 ####[facility] [address] [place], [address] CA,Total 8.4 mg/dL Low 8.5-10.1 [facility] Comment on above: Performed By: #### L 501.9520, L500.2500, L501.5200 ####[facility] [address] [place], [address] Chloride [Moles/Vol] 101 mmol/L Normal 98-107 [facility] Comment on above: Performed By: #### L 501.9520, L500.2500, L501.5200 ####[facility] [address] [place], [address] CO2 [Moles/Vol] 30.0 mmol/L Normal 21.0-32.0 [facility] Comment on above: Performed By: #### L 501.9520, L500.2500, L501.5200 ####[facility] [address] [place], [address] Creatinine [Mass/Vol] 0.74 mg/dL Normal 0.70-1.30 [facility] Comment on above: Result Comment: The validity of the calculated GFR GFRAA in patients over70 years has not been determined. Clinical correlation isessential. Performed By: #### L 501.9520, L500.2500, L501.5200 ####[facility] [address] [place], [address] ECRCL 220.46 ml/min Normal [facility] Comment on above: Performed By: #### L 501.9520, L500.2500, L501.5200 ####[facility] [address] [place], [address] EST GFR - AA 143 mL/min Normal >60 [facility] Comment on above: Result Comment: Afri can Vietnamese GFR Calc Performed By: #### L 501.9520, L500.2500, L501.5200 ####[facility] [address] [place], [address] GAP 5 Normal 5-15 [facility] Comment on above: Performed By: #### L 501.9520, L500.2500, L501.5200 ####[facility] [address] [place], [address] GFR/1.73 sq M.predicted among non-blacks MDRD (S/P/Bld) [Vol rate/Area] 118 mL/min/{1.73_m2} Normal >60 [facility] Comment on above: Result Comment: Non- GFR Calc Performed By: #### L 501.9520, L500.2500, L501.5200 ####[facility] [address] [place], [address] Glucose [Mass/Vol] 120 mg/dL High 74-106 [facility] Comment on above: Result Comment: Fast ing Glucose result from 100 to 125 mg/dLsuggests IMPAIRED HOMEOSTASIS per A.D.A. criteria. Performed By: #### L 501.9520, L500.2500, L501.5200 ####[facility] [address] [place], [address] Potassium [Moles/Vol] 3.7 mmol/L Normal 3.5-5.1 [facility] Comment on above: Performed By: #### L 501.9520, L500.2500, L501.5200 ####[facility] [address] [place], [address] Sodium [Moles/Vol] 136 mmol/L Normal 136-145 [facility] Comment on above: Performed By: #### L 501.9520, L500.2500, L501.5200 ####[facility] [address] [place], [address] Urea nitrogen [Mass/Vol] 9 mg/dL Normal 7-18 [facility] Comment on above: Performed By: #### L 501.9520, L500.2500, L501.5200 ####[facility] [address] [place], [address] CBC W/Diff, Automatedon 12-01-2023 Absolute Lymph 1.69 X10 3/uL Normal 0.83-4.51 [facility] Comment on above: Performed By: #### L 501.2300, L100.0100 ####[facility] [address] [place], [address] Absolute Neut 3.9 X10 3/uL Normal 2.0-7.7 [facility] Comment on above: Performed By: #### L 501.2300, L100.0100 ####[facility] [address] [place], [address] Basophils/100 WBC (Bld) 0.8 % Normal 0-1 [facility] Comment on above: Performed By: #### L 501.2300, L100.0100 ####[facility] [address] [place], [address] Eosinophils/100 WBC (Bld) 3.6 % Normal 0-5 [facility] Comment on above: Performed By: #### L 501.2300, L100.0100 ####[facility] [address] [place], [address] Erythrocyte distribution width (RBC) [Ratio] 14.6 % Normal 11.6-14.6 [facility] Comment on above: Performed By: #### L 501.2300, L100.0100 ####[facility] [address] [place], [address] Hematocrit (Bld) [Volume fraction] 51.2 % Normal 40-54 [facility] Comment on above: Performed By: #### L 501.2300, L100.0100 ####[facility] [address] [place], [address] Hemoglobin (Bld) [Mass/Vol] 16.1 g/dL Normal 13.0-16.5 [facility] Comment on above: Performed By: #### L 501.2300, L100.0100 ####[facility] [address] [place], [address] IG% 0.200 Normal 0.0-0.9 [facility] Comment on above: Result Comment: IG% - Immature Granulocytes (promyelocytes, myelocytes andmetamyelocytes) > 1% indicates that a LEFT SHIFT is Present. Performed By: #### L 501.2300, L100.0100 ####[facility] [address] [place], [address] Lymphocytes/100 WBC (Bld) 25.7 % Normal 19-41 [facility] Comment on above: Performed By: #### L 501.2300, L100.0100 ####[facility] [address] [place], [address] MCH (RBC) [Entitic mass] 28.6 pg Normal 27.0-32.0 [facility] Comment on above: Performed By: #### L 501.2300, L100.0100 ####[facility] [address] [place], [address] MCHC (RBC) [Mass/Vol] 31.4 g/dL Low 32-36 [facility] Comment on above: Performed By: #### L 501.2300, L100.0100 ####[facility] [address] [facility] [place], [address] MCV (RBC) [Entitic vol] 91.1 fL Normal 80-94 [facility] Comment on above: Performed By: #### L 501.2300, L100.0100 ####[facility] [address] [place], [address] Monocytes/100 WBC (Bld) 10.8 % High 0-10 [facility] Comment on above: Performed By: #### L 501.2300, L100.0100 ####[facility] [address] [place], [address] Neutrophils/100 WBC (Bld) 58.9 % Normal 47-70 [facility] Comment on above: Performed By: #### L 501.2300, L100.0100 ####[facility] [address] [place], [address] Nucleated RBC (Bld) [#/Vol] 0 10*3/uL Normal 0-5 [facility] Comment on above: Performed By: #### L 501.2300, L100.0100 ####[facility] [address] [place], [address] Platelet mean volume (Bld) [Entitic vol] 9.3 fL Normal 6.2-12.0 [facility] Comment on above: Performed By: #### L 501.2300, L100.0100 ####[facility] [address] [place], [address] Platelets (Bld) [#/Vol] 262 10*3/uL Normal 150-450 [facility] Comment on above: Performed By: #### L 501.2300, L100.0100 ####[facility] [address] [place], [address] RBC (Bld) [#/Vol] 5.62 10*6/uL Normal 4.6-6.2 [facility] Comment on above: Performed By: #### L 501.2300, L100.0100 ####[facility] [address] [place], [address] RDW SD 48.8 fl High 35.1-43.9 [facility] Comment on above: Performed By: #### L 501.2300, L100.0100 ####[facility] [address] [place], [address] WBC (Bld) [#/Vol] 6.6 10*3/uL Normal 4.4-11.0 [facility] Comment on above: Performed By: #### L 501.2300, L100.0100 ####[facility] [address] [place], [address] Gram Stainon 12-23-2023 GS List Antibiotics [place] 48 Hours? ROCEPHIN Gram Stain 1+ Gram positive cocci Rare Epithelial cells 2+ White Blood Cells No Epithelial cells Normal [facility] Comment on above: Performed By: #### M 8200.1075, M100.3000, M1.1999 ####[facility] [address] [place], [address] M8200.1075on 12-23-2023 M8200.1075 Normal [facility] Comment on above: Performed By: #### M 8200.1075, M100.3000, M1.1999 ####[facility] [address] [place], [address] Magnesiumon 12-23-2023 Magnesium [Mass/Vol] 2.2 mg/dL Normal 1.6-2.6 [facility] Comment on above: Performed By: #### L 501.9520, L500.2500, L501.5200 ####[facility] [address] [place], [address] Phosphoruson 12-23-2023 Phosphate [Mass/Vol] 4.1 mg/dL Normal 2.5-4.9 [facility] Comment on above: Performed By: #### L 501.2300, L100.0100 ####[facility] [address] [place], [address] Thyroid Stim Hormone (TSH)on 12-23-2023 TSH 3.150 uIU/mL Normal 0.358-3.74 0 [facility] Comment on above: Performed By: #### L 501.9520, L500.2500, L501.5200 ####[facility] [address] [place], [address] Venous Duplex US - Sammy Extre mon 12-23-2023 Venous Duplex US - Sammy Extrem Normal [facility] BNP,B-Type NATRIURETIC PEPTI [place] 12-22-2023 Natriuretic peptide B (Bld) [Mass/Vol] 21.3 pg/mL Normal 0-100 [facility] Comment on above: Performed By: #### L 300.4310, L300.3900, L500.4050, L503.6620, L503.6005, L100.0100 ####[facility] [address] [place], [address] CBC W/Diff, Automatedon 12-01 Absolute Lymph 2.21 X10 3/uL Normal 0.83-4.51 [facility] Comment on above: Performed By: #### L 300.4310, L300.3900, L500.4050, L503.6620, L503.6005, L100.0100 ####[facility] [address] [place], [address] Absolute Neut 6.9 X10 3/uL Normal 2.0-7.7 [facility] Comment on above: Performed By: #### L 300.4310, L300.3900, L500.4050, L503.6620, L503.6005, L100.0100 ####[facility] [address] [place], [address] Basophils/100 WBC (Bld) 0.3 % Normal 0-1 [facility] Comment on above: Performed By: #### L 300.4310, L300.3900, L500.4050, L503.6620, L503.6005, L100.0100 ####[facility] [address] [place], [address] Eosinophils/100 WBC (Bld) 2.0 % Normal 0-5 [facility] Comment on above: Performed By: #### L 300.4310, L300.3900, L500.4050, L503.6620, L503.6005, L100.0100 ####[facility] [address] [place], [address] Erythrocyte distribution width (RBC) [Ratio] 14.8 % High 11.6-14.6 [facility] Comment on above: Performed By: #### L 300.4310, L300.3900, L500.4050, L503.6620, L503.6005, L100.0100 ####[facility] [address] [place], [address] Hematocrit (Bld) [Volume fraction] 51.8 % Normal 40-54 [facility] Comment on above: Performed By: #### L 300.4310, L300.3900, L500.4050, L503.6620, L503.6005, L100.0100 ####[facility] [address] [place], [address] Hemoglobin (Bld) [Mass/Vol] 16.8 g/dL High 13.0-16.5 [facility] Comment on above: Performed By: #### L 300.4310, L300.3900, L500.4050, L503.6620, L503.6005, L100.0100 ####[facility] [address] [place], [address] IG% 0.300 Normal 0.0-0.9 [facility] Comment on above: Result Comment: IG% - Immature Granulocytes (promyelocytes, myelocytes andmetamyelocytes) > 1% indicates that a LEFT SHIFT is Present. Performed By: #### L 300.4310, L300.3900, L500.4050, L503.6620, L503.6005, L100.0100 ####[facility] [address] [place], [address] Lymphocytes/100 WBC (Bld) 21.6 % Normal 19-41 [facility] Comment on above: Performed By: #### L 300.4310, L300.3900, L500.4050, L503.6620, L503.6005, L100.0100 ####[facility] [address] [place], [address] MCH (RBC) [Entitic mass] 29.2 pg Normal 27.0-32.0 [facility] Comment on above: Performed By: #### L 300.4310, L300.3900, L500.4050, L503.6620, L503.6005, L100.0100 ####[facility] [address] [place], [address] MCHC (RBC) [Mass/Vol] 32.4 g/dL Normal 32-36 [facility] Comment on above: Performed By: #### L 300.4310, L300.3900, L500.4050, L503.6620, L503.6005, L100.0100 ####[facility] [address] [place], [address] MCV (RBC) [Entitic vol] 89.9 fL Normal 80-94 [facility] Comment on above: Performed By: #### L 300.4310, L300.3900, L500.4050, L503.6620, L503.6005, L100.0100 ####[facility] [address] [place], [address] Monocytes/100 WBC (Bld) 8.2 % Normal 0-10 [facility] Comment on above: Performed By: #### L 300.4310, L300.3900, L500.4050, L503.6620, L503.6005, L100.0100 ####[facility] [address] [place], [address] Neutrophils/100 WBC (Bld) 67.6 % Normal 47-70 [facility] Comment on above: Performed By: #### L 300.4310, L300.3900, L500.4050, L503.6620, L503.6005, L100.0100 ####[facility] [address] [place], [address] Nucleated RBC (Bld) [#/Vol] 0 10*3/uL Normal 0-5 [facility] Comment on above: Performed By: #### L 300.4310, L300.3900, L500.4050, L503.6620, L503.6005, L100.0100 ####[facility] [address] [place], [address] Platelet mean volume (Bld) [Entitic vol] 10.4 fL Normal 6.2-12.0 [facility] Comment on above: Performed By: #### L 300.4310, L300.3900, L500.4050, L503.6620, L503.6005, L100.0100 ####[facility] [address] [place], [address] Platelets (Bld) [#/Vol] 324 10*3/uL Normal 150-450 [facility] Comment on above: Performed By: #### L 300.4310, L300.3900, L500.4050, L503.6620, L503.6005, L100.0100 ####[facility] [address] [place], [address] RBC (Bld) [#/Vol] 5.76 10*6/uL Normal 4.6-6.2 [facility] Comment on above: Performed By: #### L 300.4310, L300.3900, L500.4050, L503.6620, L503.6005, L100.0100 ####[facility] [address] [place], [address] RDW SD 48.8 fl High 35.1-43.9 [facility] Comment on above: Performed By: #### L 300.4310, L300.3900, L500.4050, L503.6620, L503.6005, L100.0100 ####[facility] [address] [place], [address] WBC (Bld) [#/Vol] 10.2 10*3/uL Normal 4.4-11.0 [facility] Comment on above: Performed By: #### L 300.4310, L300.3900, L500.4050, L503.6620, L503.6005, L100.0100 ####[facility] [address] [place], [address] Chest 1 View (Portable)on Chest 1 View (Portable) Normal [facility] Comprehensive Metabolic Prof ilon 12-22-2023 Albumin [Mass/Vol] 3.3 g/dL Normal 3.2-5.0 [facility] Comment on above: Performed By: #### L 300.4310, L300.3900, L500.4050, L503.6620, L503.6005, L100.0100 ####[facility] [address] [place], [address] Albumin/Globulin [Mass ratio] 0.7 {ratio} Low 0.9-2.4 [facility] Comment on above: Performed By: #### L 300.4310, L300.3900, L500.4050, L503.6620, L503.6005, L100.0100 ####[facility] [address] [place], [address] ALK P 192 U/L High 45-117 [facility] Comment on above: Performed By: #### L 300.4310, L300.3900, L500.4050, L503.6620, L503.6005, L100.0100 ####[facility] [address] [place], [address] ALT [Catalytic activity/Vol] 28 U/L Normal 16-61 [facility] Comment on above: Performed By: #### L 300.4310, L300.3900, L500.4050, L503.6620, L503.6005, L100.0100 ####[facility] [address] [place], [address] AST [Catalytic activity/Vol] 24 U/L Normal 15-37 [facility] Comment on above: Result Comment: Slig ht Hemolysis, Result may be falsely increased. Performed By: #### L 300.4310, L300.3900, L500.4050, L503.6620, L503.6005, L100.0100 ####[facility] [address] [place], [address] Bilirubin [Mass/Vol] 0.90 mg/dL Normal 0.20-1.00 [facility] Comment on above: Result Comment: For patients on eltrombopag therapy, use of Dimension [place] TBIL is not recommended. Performed By: #### L 300.4310, L300.3900, L500.4050, L503.6620, L503.6005, L100.0100 ####[facility] [address] [place], [address] BUN/CRE 10.8 RATIO Normal 10-20 [facility] Comment on above: Performed By: #### L 300.4310, L300.3900, L500.4050, L503.6620, L503.6005, L100.0100 ####[facility] [address] [place], [address] CA,Total 9.0 mg/dL Normal 8.5-10.1 [facility] Comment on above: Performed By: #### L 300.4310, L300.3900, L500.4050, L503.6620, L503.6005, L100.0100 ####[facility] [address] [place], [address] Chloride [Moles/Vol] 100 mmol/L Normal 98-107 [facility] Comment on above: Performed By: #### L 300.4310, L300.3900, L500.4050, L503.6620, L503.6005, L100.0100 ####[facility] [address] [place], [address] CO2 [Moles/Vol] 33.0 mmol/L High 21.0-32.0 [facility] Comment on above: Performed By: #### L 300.4310, L300.3900, L500.4050, L503.6620, L503.6005, L100.0100 ####[facility] [address] [place], [address] Creatinine [Mass/Vol] 0.84 mg/dL Normal 0.70-1.30 [facility] Comment on above: Result Comment: The validity of the calculated GFR GFRAA in patients over70 years has not been determined. Clinical correlation isessential. Performed By: #### L 300.4310, L300.3900, L500.4050, L503.6620, L503.6005, L100.0100 ####[facility] [address] [place], [address] EST GFR - AA 124 mL/min Normal >60 [facility] Comment on above: Result Comment: Afri can Vietnamese GFR Calc Performed By: #### L 300.4310, L300.3900, L500.4050, L503.6620, L503.6005, L100.0100 ####[facility] [address] [place], [address] GAP 4 Low 5-15 [facility] Comment on above: Performed By: #### L 300.4310, L300.3900, L500.4050, L503.6620, L503.6005, L100.0100 ####[facility] [address] [place], [address] GFR/1.73 sq M.predicted among non-blacks MDRD (S/P/Bld) [Vol rate/Area] 103 mL/min/{1.73_m2} Normal >60 [facility] Comment on above: Result Comment: Non- GFR Calc Performed By: #### L 300.4310, L300.3900, L500.4050, L503.6620, L503.6005, L100.0100 ####[facility] [address] [place], [address] Globulin (S) [Mass/Vol] 4.9 g/dL High 2.2-4.2 [facility] Comment on above: Performed By: #### L 300.4310, L300.3900, L500.4050, L503.6620, L503.6005, L100.0100 ####[facility] [address] [place], [address] Glucose [Mass/Vol] 98 mg/dL Normal 74-106 [facility] Comment on above: Performed By: #### L 300.4310, L300.3900, L500.4050, L503.6620, L503.6005, L100.0100 ####[facility] [address] [place], [address] Potassium [Moles/Vol] 4.0 mmol/L Normal 3.5-5.1 [facility] Comment on above: Result Comment: Slig ht Hemolysis, Result may be falsely increased. Performed By: #### L 300.4310, L300.3900, L500.4050, L503.6620, L503.6005, L100.0100 ####[facility] [address] [place], [address] Sodium [Moles/Vol] 137 mmol/L Normal 136-145 [facility] Comment on above: Performed By: #### L 300.4310, L300.3900, L500.4050, L503.6620, L503.6005, L100.0100 ####[facility] [address] [place], [address] T PROT 8.2 g/dL Normal 6.4-8.2 [facility] Comment on above: Performed By: #### L 300.4310, L300.3900, L500.4050, L503.6620, L503.6005, L100.0100 ####[facility] [address] [place], [address] Urea nitrogen [Mass/Vol] 9 mg/dL Normal 7-18 [facility] Comment on above: Performed By: #### L 300.4310, L300.3900, L500.4050, L503.6620, L503.6005, L100.0100 ####[facility] [address] [place], [address] Echo Complete W/ Contraston 12-22-2023 Echo Complete W/ Contrast Normal [facility] Emergency Department Summary on 12-22-2023 Emergency Department Summary Normal [facility] H AND P Exam - Hospitaliston 12-22-2023 H&P Exam - Hospitalist Normal [facility] Lactic Acidon 12-22-2023 Lactate [Moles/Vol] 1.8 mmol/L Normal 0.4-1.9 [facility] Comment on above: Order Comment: Y Performed By: #### L 300.4310, L300.3900, L500.4050, L503.6620, L503.6005, L100.0100 ####[facility] [address] [place], [address] Partial Thromboplast Timeon 12-22-2023 aPTT Coag (Bld) [Time] 29.6 s Normal 24.1-36.2 [facility] Comment on above: Performed By: #### L 300.4310, L300.3900, L500.4050, L503.6620, L503.6005, L100.0100 ####[facility] [address] [place], [address] Prothrombin Time w/INRon INR Coag (PPP) [Relative time] 1.1 {INR} Normal [facility] Comment on above: Performed By: #### L 300.4310, L300.3900, L500.4050, L503.6620, L503.6005, L100.0100 ####[facility] [address] [place], [address] PT Coag (PPP) [Time] 14.5 s Normal 11.7-14.9 [facility] Comment on above: Performed By: #### L 300.4310, L300.3900, L500.4050, L503.6620, L503.6005, L100.0100 ####[facility] [address] [place], [address] Tibia Fibula 2 Viewson 12-21 Tibia Fibula [address] [facility] Urinalysis, Completeon 12-21 BACTERIA 1+ /hpf Normal None Seen [facility] Comment on above: Order Comment: COLLE CTOR TO SPECIFY Performed By: #### M 100.2200, L400.0001 ####[facility] [address] [place], [address] Mucus Ql (Urine sed) 1+ /hpf Normal [facility] Comment on above: Order Comment: COLLE CTOR TO SPECIFY Performed By: #### M 100.2200, L400.0001 ####[facility] [address] [place], [address] RBC 0-5 SEEN Normal 0-5 [facility] Comment on above: Order Comment: [facility] CTOR TO SPECIFY Performed By: #### M 100.2200, L400.0001 ####[facility] [address] [place], [address] WBC 0-5 SEEN Normal 0-5 [facility] Comment on above: Order Comment: [facility] CTOR TO SPECIFY Performed By: #### M 100.2200, L400.0001 ####[facility] [address] [place], [address] EPI,SQUAMOUS 0 SEEN Normal 0-5 [facility] Comment on above: Order Comment: COLLE CTOR TO SPECIFY Performed By: #### M 100.2200, L400.0001 ####[facility] [address] [place], [address] BASIC METABOLIC PANELon 07-2 Anion gap [Moles/Vol] 3 mmol/L Low 8-12 [facility] [employer] Comment on above: Performed By: #### 4 [id number], [id number] #### [place] [address] Calcium [Mass/Vol] 9.2 mg/dL Normal 8.4-10.4 [facility] [employer] [facility] Comment on above: Performed By: #### 4 [id number], [id number] #### JACQUELINE [address] Chloride [Moles/Vol] 97 mmol/L Normal 96-109 [facility] [employer] Comment on above: Performed By: #### 4 [id number], [id number] #### [address]ACQU[address]INE [address] [place], [place] [address] CO2 [Moles/Vol] 37 mmol/L High 22-30 Jacqueline [employer] [facility] Comment on above: Performed By: #### 4 [id number], [id number] #### [place] [address] Creatinine [Mass/Vol] 0.87 mg/dL Normal 0.66-1.25 [facility] [employer] Comment on above: Performed By: #### 4 [id number], [id number] #### [address] GLOMERULAR FILTRATION RATE ML/MIN/1.73 SQ M.PREDICTED 103.8 mL/min/1.73m*2 Normal >=60.0 Jacqueline [employer] Comment on above: Result Comment: eGFR calculation [...] Kidney Int Suppl.2013;3:1-150 Performed By: #### 4 [id number], [id number] #### [address] [place], [place] [address] Glucose [Mass/Vol] 112 mg/dL High 65-100 [facility] [employer] [facility] Comment on above: Performed By: #### 4 [id number], [id number] #### [address] [place] [address] [facility] Potassium [Moles/Vol] 4.2 mmol/L Normal 3.6-5.1 [facility] [employer] Comment on above: Performed By: #### 4 [id number], [id number] #### JACQUELINE [facility] [address] Sodium [Moles/Vol] 137 mmol/L Normal 135-[address] [facility] Comment on above: Performed By: #### 4 [id number], [id number] #### JACQUELINE [address] Urea nitrogen [Mass/Vol] 14 mg/dL Normal 8-26 [facility] Comment on above: Performed By: #### 4 [id number], [id number] #### JACQUELINE [address] Basic metabolic panelon 07-2 Anion gap [Moles/Vol] 3 mmol/L Low 8 - 12 mmol/L [facility] Calcium [Mass/Vol] 9.2 mg/dL 8.4 - 10. 4 mg/dL [facility] Calcium hydrogen phosphate dihydrate crystals LM Ql (Urine sed) 14 mg/dL 8 - 26 mg/dL [facility] Chloride [Moles/Vol] 97 mmol/L 96 - 10 9 mmol/L [facility] CO2 (BldMV) [Moles/Vol] 37 mmol/L High 22 - 30 mmol/L [facility] Creatinine [Mass/Vol] 0.87 mg/dL 0.66 - 1.25 mg/dL [facility] GFR/1.73 sq M.predicted among non-blacks MDRD (S/P/Bld) [Vol rate/Area] 103.8 mL/min/{1.73_m2} - PINF [facility] Comment on above: eGFR [...] 112 mg/dL High 65 - 100 mg/dL Jac[facility] Potassium [Moles/Vol] 4.2 mmol/L 3.6 - 5.1 mmol/L [facility] Sodium [Moles/Vol] 137 mmol/L 135 - 147 mmol/L [facility] CBCon 11-26-2023 Age [Time] 88.2 fL 80.6 - 99 fL [facility] Age [Time] 29.1 pg 27.0 - 34.2 pg [facility] Age [Time] 33.0 g/dL 31.4 - 36.2 g/dL [facility] Erythrocyte distribution width (RBC) [Ratio] 13.8 % 11.5 - 14.5 % [facility] Hematocrit (Bld) [Volume fraction] 52.4 % High 37.7 - 51.1 % [facility] Hexanoylglycine (U) [Moles/Vol] 17.3 g/dL 12.8 - 17.7 g/dL [facility] Interpretation and review of laboratory results Abnormal [facility] Platelets (Bld) [#/Vol] 253 10*3/uL [facility] RBC (Bld) [#/Vol] 5.94 10*6/uL High [facility] WBC (Bld) [#/Vol] 6.7 10*3/uL [facility] Erythrocyte distribution width (RBC) [Ratio] 13.8 % Normal 11.5-14.5 [facility] Comment on above: Performed By: #### 4 [id number], [id number], [id number], [id number] #### HO GUEVARA (2012) [facility] [address] [place] [address] Hematocrit (Bld) [Volume fraction] 52.4 % High 37.7-51.1 [facility] Comment on above: Performed By: #### 4 [id number], [id number], [id number], [id number] #### HO GUEVARA (2012) [facility] [address] [employer] [facility] [place] [address] Hemoglobin (Bld) [Mass/Vol] 17.3 g/dL Normal 12.8-17.7 [facility] Comment on above: Performed By: #### 4 [id number], [id number], [id number], [id number] #### HO GUEVARA (2012) [facility] [address] [place] [address] MCH (RBC) [Entitic mass] 29.1 pg Normal 27.0-34.2 [facility] Comment on above: Performed By: #### 4 [id number], [id number], [id number], [id number] #### HO GUEVARA (2012) [facility] [address] [place] [address] MCHC (RBC) [Mass/Vol] 33.0 g/dL Normal 31.4-36.2 [facility] Comment on above: Performed By: #### 4 [id number], [id number], [id number], [id number] #### HO GUEVARA (2012) [facility] [address] [place] [address] MCV (RBC) [Entitic vol] 88.2 fL Normal 80.6-99 [facility] Comment on above: Performed By: #### 4 [id number], [id number], [id number], [id number] #### HO GUEVARA (2012) [facility] [address] [place] [address] PLATELET COUNT 253 x10*3/uL Normal 150-400 [facility] Comment on above: Performed By: #### 4 [id number], [id number], [id number], [id number] #### HO GUEVARA (2012) [facility] [address] [place] [address] RED BLOOD CELL COUNT 5.94 x10*6/uL High 3.70-5.70 [facility] Comment on above: Performed By: #### 4 [id number], [id number], [id number], [id number] #### HO GUEVARA (2012) [facility] [address] [place] [address] WHITE BLOOD CELLS 6.7 x10*3/uL Normal 4.3-10.3 [facility] Comment on above: Performed By: #### 4 [id number], [id number], [id number], [id number] #### HO GUEVARA (2012) [facility] [address] [place] [address] HEPATIC FUNCTION PANELon Albumin [Mass/Vol] 4.4 g/dL Normal 3.5-5.[address] [facility] Comment on above: Performed By: #### 4 [id number], [id number] #### [address] ALK PHOS 201 U/L High 24-126 [facility] Comment on above: Performed By: #### 4 [id number], [id number] #### [address] ALT [Catalytic activity/Vol] 75 U/L High 4-50 [facility] Comment on above: Performed By: #### 4 [id number], [id number] #### [address] AST [Catalytic activity/Vol] 63 U/L High 3-55 [facility] Comment on above: Performed By: #### 4 [id number], [id number] #### [address] Bilirubin [Mass/Vol] 1.3 mg/dL Normal 0.2-1.6 [facility] Comment on above: Performed By: #### 4 [id number], [id number] #### [address] Bilirubin.indirect [Mass/Vol] 0.5 mg/dL Normal <=0.5 [facility] Comment on above: Performed By: #### 4 [id number], [id number] #### [address] Protein [Mass/Vol] 8.7 g/dL High 6.3-8.[address] [facility] Comment on above: Performed By: #### 4 [id number], [id number] #### [address] Hepatic function panelon Albumin (Syn fld) [Mass/Vol] 4.4 g/dL 3.5 - 5.0 g/dL [facility] Aldosterone (U) [Mass/Vol] 201 U/L High 24 - 126 U/L [facility] ALT [Catalytic activity/Vol] 75 U/L High 4 - 50 U/L [facility] AST [Catalytic activity/Vol] 63 U/L High 3 - 55 U/L [facility] Bilirubin [Mass/Vol] 1.3 mg/dL 0.2 - 1 .6 mg/dL [facility] Bilirubin.conjugated [Mass/Vol] 0.5 mg/dL NINF - 0.5 mg/dL [facility] Protein [Mass/Vol] 8.7 g/dL High 6.3 - 8.2 g/dL [facility] No Panel Informationon 11-25 Interpretation and review of laboratory results Abnormal [facility] US LIVERon 11-26-2023 US LIVER Limited abdominal [...] wnl Ordering Physician: Sara Ramirez MD Normal [facility] US Liveron 11-26-2023 1. Less than optimal. No distinct evidence of acute process on this exam [facility] Limited abdominal ultrasound . 11/26/2023 [...] evidence of acute process on this exam [facility] Radiology Study observation (narrative) [facility] US LiverOrdered By: Kamron Arrington on 11-26-2023 [facility] Work Phone: BASIC METABOLIC PANELon 10-31 Anion gap [Moles/Vol] 5 mmol/L Low 8-12 [facility] Comment on above: Performed By: #### 4 [id number], [id number], [id number], [id number] #### HO GUEVARA (2012) [facility] [address] [place] [address] Calcium [Mass/Vol] 9.1 mg/dL Normal 8.4-10.[address] [facility] Comment on above: Performed By: #### 4 [id number], [id number], [id number], [id number] #### HO GUEVARA (2012) [facility] [address] [place] [address] Chloride [Moles/Vol] 97 mmol/L Normal 96-109 [facility] Comment on above: Performed By: #### 4 [id number], [id number], [id number], [id number] #### HO GUEVARA (2012) [facility] [address] [place] [address] CO2 [Moles/Vol] 37 mmol/L High 22-30 [facility] Comment on above: Performed By: #### 4 7066760, [id number], [id number], [id number] #### HO GUEVARA (2012) [facility] [address] [place] [address] Creatinine [Mass/Vol] 0.77 mg/dL Normal 0.66-1.25 [facility] Comment on above: Performed By: #### 4 [id number], [id number], [id number], [id number] #### HO GUEVARA (2012) [facility] [address] [place] [address] GLOMERULAR FILTRATION RATE ML/MIN/1.73 SQ M.PREDICTED 107.7 mL/min/1.73m*2 Normal >=60.0 [facility] Comment on above: Result [...] Kidney Int Suppl.2013;3:1-150 Performed By: #### 4 [id number], [id number], [id number], [id number] #### HO GUEVARA (2012) [facility] [address] [place] [address] Glucose [Mass/Vol] 102 mg/dL High 65-[address] [facility] Comment on above: Performed By: #### 4 [id number], 93342644, [id number], [id number] #### HO GUEVARA (2012) [facility] [address] [place] [address] Potassium [Moles/Vol] 4.2 mmol/L Normal 3.6-5.1 [facility] Comment on above: Performed By: #### 4 [id number], [id number], [id number], [id number] #### HO GUEVARA (2012) [facility] [address] [place] [address] Sodium [Moles/Vol] 139 mmol/L Normal 135-[address] [facility] Comment on above: Performed By: #### 4 [id number], 40308711, [id number], [id number] #### HO GUEVARA (2012) [facility] [address] [place] [address] Urea nitrogen [Mass/Vol] 12 mg/dL Normal 8-26 [facility] Comment on above: Performed By: #### 4 6552466, [id number], [id number], [id number] #### HO GUEVARA (2012) [facility] [address] [place] [address] Bacteria identified Cx Nom ( Wound)on 11-25-2023 Interpretation and review of laboratory results Abnormal [facility] Microscopic observation Gram stain Nom (Unsp spec) No organisms seen [facility] Bacteria identified Cx Nom ( Wound)Ordered By: Daphne Rincon on 11-25-2023 Interpretation and review of laboratory results Abnormal [facility] Microscopic observation Gram stain Nom (Unsp spec) Rare PMNs [facility] Microscopic observation Gram stain Nom (Unsp spec) Rare RBCs [facility] Microscopic observation Gram stain Nom (Unsp spec) Positive [facility] Basic metabolic panelon 10-31 Anion gap [Moles/Vol] 5 mmol/L Low 8 - 12 mmol/L [facility] Calcium [Mass/Vol] 9.1 mg/dL 8.4 - 10. 4 mg/dL [facility] Calcium hydrogen phosphate dihydrate crystals LM Ql (Urine sed) 12 mg/dL 8 - 26 mg/dL [facility] Chloride [Moles/Vol] 97 mmol/L 96 - 10 9 mmol/L [facility] CO2 (BldMV) [Moles/Vol] 37 mmol/L High 22 - 30 mmol/L [facility] Creatinine [Mass/Vol] 0.77 mg/dL 0.66 - 1.25 mg/dL [facility] GFR/1.73 sq M.predicted among non-blacks MDRD (S/P/Bld) [Vol rate/Area] 107.7 mL/min/{1.73_m2} - PINF [facility] Comment on above: eGFR [...] 102 mg/dL High 65 - 100 mg/dL [facility] Interpretation and review of laboratory results Abnormal [facility] Potassium [Moles/Vol] 4.2 mmol/L 3.6 - 5.1 mmol/L [facility] Sodium [Moles/Vol] 139 mmol/L 135 - 147 mmol/L [facility] CBC AND DIFFERENTIALon 11-24 ABSOLUTE BASOPHIL 0.1 x10*3/uL Normal 0.0-0.1 [facility] Comment on above: Performed By: #### 4 [id number], [id number], [id number], [id number] #### HO GUEVARA (2012) [facility] [address] [place] [address] ABSOLUTE EOSINOPHIL 0.3 x10*3/uL Normal 0.1-0.3 [facility] Comment on above: Performed By: #### 4 [id number], [id number], [id number], [id number] #### HO GUEVARA (2012) [facility] [address] [place] [address] ABSOLUTE IMMATURE GRANULOCYTES 0.0 x10*3/uL Normal 0.0-0.1 [facility] Comment on above: Performed By: #### 4 [id number], 39508574, [id number], [id number] #### HO GUEVARA (2012) [facility] [address] [place] [address] ABSOLUTE LYMPH 1.9 x10*3/uL Normal 1.2-3.3 [facility] Comment on above: Performed By: #### 4 [id number], [id number], [id number], [id number] #### HO GUEVARA (2012) [facility] [address] [place] [address] ABSOLUTE MONO 0.6 x10*3/uL Normal 0.2-0.6 [facility] Comment on above: Performed By: #### 4 [id number], [id number], [id number], [id number] #### [place] GUEVAR[place] (2012) [facility] [address] [place] [address] ABSOLUTE NEUTROPHIL 4.3 x10*3/uL Normal 2.4-6.6 [facility] Comment on above: Performed By: #### 4 [id number], [id number], [id number], [id number] #### HO GUEVARA (2012) [facility] [address] [place] [address] Basophils/100 WBC (Bld) 0.8 % Normal [facility] Comment on above: Performed By: #### 4 [id number], 95130084, [id number], [id number] #### HO GUEVARA (2012) [facility] [address] [place] [address] Eosinophils/100 WBC (Bld) 3.8 % Normal [facility] Comment on above: Performed By: #### 4 [id number], 48717670, [id number], [id number] #### HO GUEVARA (2012) [facility] [address] [place] [address] Erythrocyte distribution width (RBC) [Ratio] 13.8 % Normal 11.5-14.5 [facility] Comment on above: Performed By: #### 4 [id number], [id number], [id number], [id number] #### HO GUEVARA (2012) [facility] [address] [place] [address] Hematocrit (Bld) [Volume fraction] 52.6 % High 37.7-51.1 [facility] Comment on above: Performed By: #### 4 [id number], 63353074, [id number], [id number] #### HO GUEVARA (2012) [facility] [address] [place] [address] Hemoglobin (Bld) [Mass/Vol] 17.2 g/dL Normal 12.8-17.7 [facility] Comment on above: Performed By: #### 4 [id number], [id number], [id number], [id number] #### HO GUEVARA (2012) [facility] [address] [place] [address] Immature granulocytes/100 WBC (Bld) 0.1 % Normal [facility] Comment on above: Performed By: #### 4 [id number], [id number], [id number], [id number] #### HO GUEVARA (2012) [facility] [address] [place] [address] Lymphocytes/100 WBC (Bld) 26.3 % Normal [facility] Comment on above: Performed By: #### 4 4466424, 86544877, [id number], [id number] #### HO GUEVARA (2012) [facility] [address] [place] [address] MCH (RBC) [Entitic mass] 29.0 pg Normal 27.0-34.2 [facility] Comment on above: Performed By: #### 4 6969826, 64134118, [id number], [id number] #### HO GUEVARA (2012) [facility] [address] [place] [address] MCHC (RBC) [Mass/Vol] 32.7 g/dL Normal 31.4-36.2 [facility] Comment on above: Performed By: #### 4 [id number], 39433285, [id number], [id number] #### HO GUEVARA (2012) [facility] [address] [place] [address] MCV (RBC) [Entitic vol] 88.7 fL Normal 80.6-99 [facility] Comment on above: Performed By: #### 4 [id number], [id number], [id number], [id number] #### HO GUEVARA (2012) [facility] [address] [place] [address] Monocytes/100 WBC (Bld) 8.3 % Normal [facility] Comment on above: Performed By: #### 4 [id number], [id number], [id number], [id number] #### HO GUEVARA (2012) [facility] [address] [place] [address] Neutrophils/100 WBC (Bld) 60.7 % Normal [facility] Comment on above: Performed By: #### 4 4068920, 34503690, [id number], [id number] #### HO GUEVARA (2012) [facility] [address] [place] [address] NUCLEATED RED BLOOD CELLS AUTO 0.0 % Normal 0.0-1.0 [facility] Comment on above: Performed By: #### 4 9747659, 60893639, [id number], [id number] #### HO GUEVARA (2012) [facility] [address] [facility] [address] PLATELET COUNT 263 x10*3/uL Normal 150-400 [facility] Comment on above: Performed By: #### 4 [id number], 93470177, [id number], [id number] #### HO GUEVARA (2012) [facility] [address] [facility] [address] RED BLOOD CELL COUNT 5.93 x10*6/uL High 3.70-5.70 [facility] Comment on above: Performed By: #### 4 9397558, [id number], [id number], [id number] #### HO GUEVARA (2012) [facility] [address] [facility] [address] WHITE BLOOD CELLS 7.1 x10*3/uL Normal 4.3-10.3 [facility] Comment on above: Performed By: #### 4 [id number], [id number], [id number], [id number] #### HO GUEVARA (2012) [facility] [address] [place] [address] CBC with Differentialon 10-31 Absolute Immature Granulocytes 0.0 [facility] Age [Time] 88.7 fL 80.6 - 99 fL [facility] Age [Time] 29.0 pg 27.0 - 34.2 pg [facility] Age [Time] 32.7 g/dL 31.4 - 36.2 g/dL [facility] B. burgdorferi IgM IB Ql (CSF) 26.3 % [facility] Basophils (Bld) [#/Vol] 0.1 10*3/uL [facility] Basophils/100 WBC (Body fld) 0.8 % [facility] Eosinophils (Bld) [#/Vol] 1.9 10*3/uL [facility] Eosinophils (Bld) [#/Vol] 0.6 10*3/uL [facility] Eosinophils (Bld) [#/Vol] 0.3 10*3/uL [facility] Eosinophils/100 WBC (Bld) 3.8 % [facility] Erythrocyte distribution width (RBC) [Ratio] 13.8 % 11.5 - 14.5 % [facility] Hematocrit (Bld) [Volume fraction] 52.6 % High 37.7 - 51.1 % [facility] Hexanoylglycine (U) [Moles/Vol] 17.2 g/dL 12.8 - 17.7 g/dL [facility] Immature granulocytes/100 WBC (Bld) 0.1 % [facility] Interpretation and review of laboratory results Abnormal [facility] Monocytes/100 WBC (Bld) 8.3 % [facility] Neurotensin (P) [Mass/Vol] 60.7 % [facility] Neutrophils (Bld) [#/Vol] 4.3 10*3/uL [facility] Nucleated RBC/100 WBC (Bld) [Ratio] 0.0 % 0.0 - 1.0 % [facility] Platelets (Bld) [#/Vol] 263 10*3/uL [facility] RBC (Bld) [#/Vol] 5.93 10*6/uL High [facility] WBC (Bld) [#/Vol] 7.1 10*3/uL [facility] HEPATIC FUNCTION PANELon Albumin [Mass/Vol] 4.5 g/dL Normal 3.5-5.[address] [facility] Comment on above: Performed By: #### 4 [id number], [id number], [id number], [id number] #### HO GUEVARA (2012) [facility] [address] [place] [address] ALK PHOS 204 U/L High 24-126 [facility] Comment on above: Performed By: #### 4 [id number], [id number], [id number], [id number] #### HO GUEVARA (2012) [facility] [address] [place] [address] ALT [Catalytic activity/Vol] 71 U/L High 4-50 [facility] Comment on above: Performed By: #### 4 [id number], 28051361, [id number], [id number] #### HO GUEVARA (2012) [facility] [address] [place] [address] AST [Catalytic activity/Vol] 62 U/L High 3-55 [facility] Comment on above: Performed By: #### 4 [id number], [id number], [id number], [id number] #### HO GUEVARA (2012) [facility] [address] [facility] [address] Bilirubin [Mass/Vol] 1.3 mg/dL Normal 0.2-1.6 [facility] Comment on above: Performed By: #### 4 5568965, [id number], [id number], [id number] #### HO GUEVARA (2012) [facility] [address] [facility] [place] [address] Bilirubin.indirect [Mass/Vol] 0.6 mg/dL High <=0.5 [facility] Comment on above: Performed By: #### 4 [id number], 19061890, [id number], [id number] #### HO GUEVARA (2012) [facility] [address] [facility] [address] Protein [Mass/Vol] 9.0 g/dL High 6.3-8.[address] [facility] Comment on above: Performed By: #### 4 [id number], 58438944, [id number], [id number] #### HO GUEVARA (2012) [facility] [address] [facility] [address] Hepatic function panelon Albumin (Syn fld) [Mass/Vol] 4.5 g/dL 3.5 - 5.0 g/dL [facility] Aldosterone (U) [Mass/Vol] 204 U/L High 24 - 126 U/L [facility] ALT [Catalytic activity/Vol] 71 U/L High 4 - 50 U/L [facility] AST [Catalytic activity/Vol] 62 U/L High 3 - 55 U/L [facility] Bilirubin [Mass/Vol] 1.3 mg/dL 0.2 - 1 .6 mg/dL [facility] Bilirubin.conjugated [Mass/Vol] 0.6 mg/dL High NINF - 0.5 mg/dL [facility] Interpretation and review of laboratory results Abnormal [facility] Protein [Mass/Vol] 9.0 g/dL High 6.3 - 8.2 g/dL [facility] Wound culture (includes gram stain)Ordered By: Daphne Rincon on 11-25-2023 Bacteria identified Cx Nom (Wound) 4+ Staphylococcus pseudointermedius Abnormal [facility] Bacteria identified Cx Nom (Wound) 4+ Staphylococcus sciuri Abnormal [facility] Wound culture with gram stai non 11-25-2023 Bacteria identified Cx Nom (Wound) 4+ Staphylococcus pseudointermedius Abnormal [facility] Comment on above: Susceptibility testi ng not performed on this isolate. Refer to susceptibilities reported from same or similar culture source within previous 72 hours. Bacteria identified Cx Nom (Wound) 4+ Staphylococcus sciuri Abnormal [facility] Comment on above: Susceptibility testi ng not performed on this isolate. Refer to susceptibilities reported from same or similar culture source within previous 72 hours. BASIC METABOLIC PANELon 10-31 Anion gap [Moles/Vol] 6 mmol/L Low 8-12 [facility] Comment on above: Performed By: #### 4 [id number], [id number] #### [facility] [address] [place], [place] [address] Calcium [Mass/Vol] 8.5 mg/dL Normal 8.4-10.[address] [facility] Comment on above: Performed By: #### 4 [id number], [id number] #### [facility] [address] [place] [address] [place] Chloride [Moles/Vol] 101 mmol/L Normal 96-109 [facility] Comment on above: Performed By: #### 4 [id number], [id number] #### [facility] [address] [place] [address] [place] CO2 [Moles/Vol] 30 mmol/L Normal 22-30 [facility] Comment on above: Performed By: #### 4 [id number], [id number] #### [facility] [address] [place] [address] [facility] Creatinine [Mass/Vol] 0.75 mg/dL Normal 0.66-1.25 [facility] Comment on above: Performed By: #### 4 [id number], [id number] #### [facility] [address] [place] [address] [place] GLOMERULAR FILTRATION RATE ML/MIN/1.73 SQ M.PREDICTED 108.6 mL/min/1.73m*2 Normal >=60.0 [facility] Comment on above: Result [...] Kidney Int Suppl.2013;3:1-150 Performed By: #### 4 [id number], [id number] #### [address] Glucose [Mass/Vol] 99 mg/dL Normal 65-[address] [facility] Comment on above: Performed By: #### 4 [id number], [id number] #### [address] [place] [address] [facility] Sodium [Moles/Vol] 137 mmol/L Normal 135-[address] [facility] Comment on above: Performed By: #### 4 [id number], [id number] #### [address] [place] [address] [facility] Urea nitrogen [Mass/Vol] 13 mg/dL Normal 8-26 [facility] Comment on above: Performed By: #### 4 [id number], [id number] #### [address] [place] [address] [facility] Bacteria identified Cx Nom ( Bld)Ordered By: Jenelle Mahoney on 11-24-2023 Interpretation and review of laboratory results Abnormal [facility] Work Phone: Microscopic observation Gram stain Nom (Unsp spec) Positive Abnormal [facility] Work Phone: Comment on above: Growth in 1 bottle o f 2 cultures drawn [facility] Work Phone: Basic metabolic panelon 10-31 Anion gap [Moles/Vol] 6 mmol/L Low 8 - 12 mmol/L [facility] Calcium [Mass/Vol] 8.5 mg/dL 8.4 - 10. 4 mg/dL [facility] Calcium hydrogen phosphate dihydrate crystals LM Ql (Urine sed) 13 mg/dL 8 - 26 mg/dL [facility] Chloride [Moles/Vol] 101 mmol/L 96 - 10 9 mmol/L [facility] CO2 (BldMV) [Moles/Vol] 30 mmol/L 22 - 30 mmol/L [facility] Creatinine [Mass/Vol] 0.75 mg/dL 0.66 - 1.25 mg/dL [facility] GFR/1.73 sq M.predicted among non-blacks MDRD (S/P/Bld) [Vol rate/Area] 108.6 mL/min/{1.73_m2} - PINF [facility] Comment on above: eGFR [...] [Mass/Vol] 99 mg/dL 65 - 100 mg/dL [facility] Interpretation and review of laboratory results Abnormal [facility] Potassium [Moles/Vol] 3.5 mmol/L Low 3.6 - 5.1 mmol/L [facility] Sodium [Moles/Vol] 137 mmol/L 135 - 147 mmol/L [facility] Blood culture x2 (Includes g soo stain)Ordered By: Jenelle Mahoney on 11-24-2023 Bacteria identified Cx Nom (Bld) Negative Abnormal [facility] Work Phone: Comment on above: Growth in 1 bottle o f 2 cultures drawn PROBABLE CONTAMINANT If Physician requests additional work-up contact Microbiology Lab at ext. [phone] within 5 days. CBC AND DIFFERENTIALon 11-23 ABSOLUTE BASOPHIL 0.0 x10*3/uL Normal 0.0-0.1 [facility] Comment on above: Performed By: #### 4 [id number], [id number], [id number], [id number] #### HO GUEVARA (2013) [facility] [address] [place] [address] ABSOLUTE EOSINOPHIL 0.2 x10*3/uL Normal 0.1-0.3 [facility] Comment on above: Performed By: #### 4 [id number], [id number], [id number], [id number] #### HO GUEVARA (2012) [facility] [address] [place] [address] ABSOLUTE IMMATURE GRANULOCYTES 0.0 x10*3/uL Normal 0.0-0.1 [facility] Comment on above: Performed By: #### 4 [id number], [id number], [id number], [id number] #### HO GUEVARA (2012) [facility] [address] [place] [address] ABSOLUTE LYMPH 2.1 x10*3/uL Normal 1.2-3.3 [facility] Comment on above: Performed By: #### 4 [id number], [id number], [id number], [id number] #### HO GUEVARA (2012) [facility] [address] [place] [address] ABSOLUTE MONO 0.6 x10*3/uL Normal 0.2-0.6 [facility] Comment on above: Performed By: #### 4 [id number], [id number], [id number], [id number] #### HO GUEVARA (2012) [facility] [address] [place] [address] ABSOLUTE NEUTROPHIL 4.4 x10*3/uL Normal 2.4-6.[address] [facility] Comment on above: Performed By: #### 4 [id number], [id number], [id number], [id number] #### HO GUEVARA (2012) [facility] [address] [place] [address] Basophils/100 WBC (Bld) 0.4 % Normal [facility] Comment on above: Performed By: #### 4 [id number], [id number], [id number], [id number] #### HO GUEVARA (2012) [facility] [address] [place] [address] Eosinophils/100 WBC (Bld) 3.2 % Normal [facility] Comment on above: Performed By: #### 4 [id number], [id number], [id number], [id number] #### HO GUEVARA (2012) [facility] [address] [place] [address] Erythrocyte distribution width (RBC) [Ratio] 14.0 % Normal 11.5-14.5 [facility] Comment on above: Performed By: #### 4 [id number], [id number], [id number], [id number] #### HO GUEVARA (2012) [facility] [address] [place] [address] Hematocrit (Bld) [Volume fraction] 50.6 % Normal 37.7-51.1 [facility] Comment on above: Performed By: #### 4 [id number], [id number], [id number], [id number] #### HO GUEVARA (2012) [facility] [address] [place] [address] Hemoglobin (Bld) [Mass/Vol] 16.8 g/dL Normal 12.8-17.7 [facility] Comment on above: Performed By: #### 4 [id number], [id number], [id number], [id number] #### HO GUEVARA (2012) [facility] [address] [place] [address] Immature granulocytes/100 WBC (Bld) 0.3 % Normal [facility] Comment on above: Performed By: #### 4 [id number], [id number], [id number], [id number] #### HO GUEVARA (2012) [facility] [address] [place] [address] Lymphocytes/100 WBC (Bld) 28.5 % Normal [facility] Comment on above: Performed By: #### 4 [id number], [id number], [id number], [id number] #### HO GUEVARA (2012) [facility] [address] [place] [address] MCH (RBC) [Entitic mass] 28.9 pg Normal 27.0-34.2 [facility] Comment on above: Performed By: #### 4 [id number], [id number], [id number], [id number] #### HO GUEVARA (2012) [facility] [address] [place] [address] MCHC (RBC) [Mass/Vol] 33.2 g/dL Normal 31.4-36.2 [facility] Comment on above: Performed By: #### 4 [id number], [id number], [id number], [id number] #### HO GUEVARA (2012) [facility] [address] [place] [address] MCV (RBC) [Entitic vol] 86.9 fL Normal 80.6-99 [facility] Comment on above: Performed By: #### 4 [id number], [id number], [id number], [id number] #### HO GUEVARA (2012) [facility] [address] [place] [address] Monocytes/100 WBC (Bld) 8.5 % Normal [facility] Comment on above: Performed By: #### 4 [id number], [id number], [id number], [id number] #### HO GUEVARA (2012) [facility] [address] [place] [address] Neutrophils/100 WBC (Bld) 59.1 % Normal [facility] Comment on above: Performed By: #### 4 [id number], [id number], [id number], [id number] #### HO GUEVARA (2012) [facility] [address] [place] [address] NUCLEATED RED BLOOD CELLS AUTO 0.0 % Normal 0.0-1.0 [facility] Comment on above: Performed By: #### 4 [id number], [id number], [id number], [id number] #### HO GUEVARA (2012) [facility] [address] [place] [address] PLATELET COUNT 266 x10*3/uL Normal 150-400 [facility] Comment on above: Performed By: #### 4 [id number], [id number], [id number], [id number] #### HO GUEVARA (2012) [facility] [address] [place] [address] RED BLOOD CELL COUNT 5.82 x10*6/uL High 3.70-5.70 [facility] Comment on above: Performed By: #### 4 [id number], [id number], [id number], [id number] #### HO GUEVARA (2012) [facility] [address] [place] [address] WHITE BLOOD CELLS 7.4 x10*3/uL Normal 4.3-10.3 [facility] Comment on above: Performed By: #### 4 [id number], [id number], [id number], [id number] #### HO GUEVARA (2013) [facility] [address] [place] [address] CBC with Differentialon 10-31 Absolute Immature Granulocytes 0.0 [facility] Age [Time] 86.9 fL 80.6 - 99 fL [facility] Age [Time] 28.9 pg 27.0 - 34.2 pg [facility] Age [Time] 33.2 g/dL 31.4 - 36.2 g/dL [facility] B. burgdorferi IgM IB Ql (CSF) 28.5 [...] [Moles/Vol] 16.8 g/dL 12.8 - 17.7 g/dL [facility] Immature granulocytes/100 WBC (Bld) 0.3 % [facility] Interpretation and review of laboratory results Abnormal [facility] Monocytes/100 WBC (Bld) 8.5 % [facility] Neurotensin (P) [Mass/Vol] 59.1 % [facility] Neutrophils (Bld) [#/Vol] 4.4 10*3/uL [facility] Nucleated RBC/100 WBC (Bld) [Ratio] 0.0 % 0.0 - 1.0 % [facility] Platelets (Bld) [#/Vol] 266 10*3/uL [facility] RBC (Bld) [#/Vol] 5.82 10*6/uL High [facility] WBC (Bld) [#/Vol] 7.4 10*3/uL [facility] POTASSIUMon 11-24-2023 Potassium [Moles/Vol] 3.5 mmol/L Low 3.6-5.[address] [facility] Comment on above: Performed By: #### 4 [id number], [id number] #### [address] Potassium Levelon 11-24-2023 Interpretation and review of laboratory results Abnormal [facility] Potassium [Moles/Vol] 3.5 mmol/L Low 3.6 - 5.1 mmol/L [facility] US.doppler Lower extremity a rtery - bilateralon [...] analysis. Staff Primary Care Physician: None Pcp Body Repairer: Tamera Reina RVT Ordering Physician: Josias Vigil APRN ADVERTISEMENT DISTRIBUTOR Attending Physician: Lizbeth Wilson MD History/Risk Factors [...] 184 cm/s RIGHT Iliac Waveform: Triphasic RIGHT LUSTERER PSV (cm/s): 249 cm/s RIGHT LUSTERER Waveform: Triphasic RIGHT PFA PSV (cm/s): 65 [...] RIGHT Dist Pop Waveform: Triphasic RIGHT Prox OIL BURNER SERVICER AND INSTALLER PSV (cm/s): 41 cm/s RIGHT Prox OIL BURNER SERVICER AND INSTALLER Waveform: Triphasic RIGHT Mid OIL BURNER SERVICER AND INSTALLER PSV (cm/s): 113 cm/s RIGHT Mid OIL BURNER SERVICER AND INSTALLER Waveform: Triphasic RIGHT Dist OIL BURNER SERVICER AND INSTALLER PSV (cm/s): 75 cm/s RIGHT Dist OIL BURNER SERVICER AND INSTALLER Waveform: Triphasic RIGHT Prox FLACA PSV (cm/s): 77 cm/s RIGHT Prox FLACA Waveform: Biphasic RIGHT Mid FLACA PSV (cm/s): 16 cm/s RIGHT Mid FLACA Waveform: Monophasic RIGHT Dist FLACA PSV (cm/s): 28 cm/s RIGHT Dist FLACA Waveform: Monophasic LEFT Iliac PSV (cm/s): 173 cm/s LEFT Iliac Waveform: Triphasic LEFT LUSTERER PSV (cm/s): 172 cm/s LEFT LUSTERER Waveform: Triphasic LEFT PFA PSV (cm/s): 266 [...] LEFT Dist Pop Waveform: Triphasic LEFT Prox OIL BURNER SERVICER AND INSTALLER PSV (cm/s): 102 cm/s LEFT Prox OIL BURNER SERVICER AND INSTALLER Waveform: Triphasic LEFT Mid OIL BURNER SERVICER AND INSTALLER PSV (cm/s): 59 cm/s LEFT Mid OIL BURNER SERVICER AND INSTALLER Waveform: Triphasic LEFT Dist OIL BURNER SERVICER AND INSTALLER PSV (cm/s): 65 cm/s LEFT Dist OIL BURNER SERVICER AND INSTALLER Waveform: Triphasic LEFT Prox FLACA PSV (cm/s): [...] analysis. 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: Lizbeth Wilson MD History/Risk Factors [...] 184 cm/s RIGHT Iliac Waveform: Triphasic RIGHT LUSTERER PSV (cm/s): 249 cm/s RIGHT LUSTERER Waveform: Triphasic RIGHT PFA PSV (cm/s): 65 [...] RIGHT Dist Pop Waveform: Triphasic RIGHT Prox OIL BURNER SERVICER AND INSTALLER PSV (cm/s): 41 cm/s RIGHT Prox OIL BURNER SERVICER AND INSTALLER Waveform: Triphasic RIGHT Mid OIL BURNER SERVICER AND INSTALLER PSV (cm/s): 113 cm/s RIGHT Mid OIL BURNER SERVICER AND INSTALLER Waveform: Triphasic RIGHT Dist OIL BURNER SERVICER AND INSTALLER PSV (cm/s): 75 cm/s RIGHT Dist OIL BURNER SERVICER AND INSTALLER Waveform: Triphasic RIGHT Prox FLACA PSV (cm/s): 77 cm/s RIGHT Prox FLACA Waveform: Biphasic RIGHT Mid FLACA PSV (cm/s): 16 cm/s RIGHT Mid FLACA Waveform: Monophasic RIGHT Dist FLACA PSV (cm/s): 28 cm/s RIGHT Dist FLACA Waveform: Monophasic LEFT Iliac PSV (cm/s): 173 cm/s LEFT Iliac Waveform: Triphasic LEFT LUSTERER PSV (cm/s): 172 cm/s LEFT LUSTERER Waveform: Triphasic LEFT PFA PSV (cm/s): 266 [...] LEFT Dist Pop Waveform: Triphasic LEFT Prox OIL BURNER SERVICER AND INSTALLER PSV (cm/s): 102 cm/s LEFT Prox OIL BURNER SERVICER AND INSTALLER Waveform: Triphasic LEFT Mid OIL BURNER SERVICER AND INSTALLER PSV (cm/s): 59 cm/s LEFT Mid OIL BURNER SERVICER AND INSTALLER Waveform: Triphasic LEFT Dist OIL BURNER SERVICER AND INSTALLER PSV (cm/s): 65 cm/s LEFT Dist OIL BURNER SERVICER AND INSTALLER Waveform: Triphasic LEFT Prox FLACA PSV (cm/s): [...] : Triphasic LEFT Dorsalis Pedis : Monophasic [facility] Radiology Study observation (narrative) [facility] US.doppler Lower extremity a rtery - bilateralOrdered By: Montse Plasencia on 11-24-2023 [facility] BASIC METABOLIC PANELon 10-31 Anion gap [Moles/Vol] 5 mmol/L Low 8-12 [facility] Comment on above: Performed By: #### 4 [id number], [id number], [id number], [id number] #### HO GUEVARA (2012) [facility] [address] [email or web address] [address] Calcium [Mass/Vol] 8.4 mg/dL Normal 8.4-10.[address] [facility] Comment on above: Performed By: #### 4 [id number], [id number], [id number], [id number] #### HO GUEVARA (2012) [facility] [address] [place] [address] Chloride [Moles/Vol] 102 mmol/L Normal 96-109 [facility] Comment on above: Performed By: #### 4 [id number], [id number], [id number], [id number] #### HO GUEVARA (2012) [facility] [address] [place] [address] CO2 [Moles/Vol] 30 mmol/L Normal 22-30 [facility] Comment on above: Performed By: #### 4 [id number], [id number], [id number], [id number] #### HO GUEVARA (2012) [facility] [address] [place] [address] Creatinine [Mass/Vol] 0.75 mg/dL Normal 0.66-1.25 [facility] Comment on above: Performed By: #### 4 [id number], [id number], [id number], [id number] #### HO GUEVARA (2012) [facility] [address] [place] [address] GLOMERULAR FILTRATION RATE ML/MIN/1.73 SQ M.PREDICTED 108.6 mL/min/1.73m*2 Normal >=60.0 [facility] Comment on above: Result [...] Kidney Int Suppl.2013;3:1-150 Performed By: #### 4 [id number], [id number], [id number], [id number] #### HO GUEVARA (2012) [facility] [address] [place] [address] Glucose [Mass/Vol] 94 mg/dL Normal 65-[address] [facility] Comment on above: Performed By: #### 4 [id number], 40302115, [id number], [id number] #### HO GUEVARA (2012) [facility] [address] [place] [address] Potassium [Moles/Vol] 3.5 mmol/L Low 3.6-5.1 [facility] Comment on above: Performed By: #### 4 [id number], [id number], [id number], [id number] #### HO GUEVARA (2012) [facility] [address] [email or web address] [address] Sodium [Moles/Vol] 137 mmol/L Normal 135-[address] [facility] Comment on above: Performed By: #### 4 [id number], [id number], [id number], [id number] #### HO GUEVARA (2012) [facility] [address] [place] [address] Urea nitrogen [Mass/Vol] 11 mg/dL Normal 8-26 [facility] Comment on above: Performed By: #### 4 [id number], [id number], [id number], [id number] #### HO GUEVARA (2012) [facility] [address] [email or web address] [address] Basic metabolic panel aka Ch em 811-23-2023 Anion gap [Moles/Vol] 5 mmol/L Low 8 - 12 mmol/L [facility] Calcium [Mass/Vol] 8.4 mg/dL 8.4 - 10. 4 mg/dL [facility] Calcium hydrogen phosphate dihydrate crystals LM Ql (Urine sed) 11 mg/dL 8 - 26 mg/dL [facility] Chloride [Moles/Vol] 102 mmol/L 96 - 10 9 mmol/L [facility] CO2 (BldMV) [Moles/Vol] 30 mmol/L 22 - 30 mmol/L [facility] Creatinine [Mass/Vol] 0.75 mg/dL 0.66 - 1.25 mg/dL [facility] GFR/1.73 sq M.predicted among non-blacks MDRD (S/P/Bld) [Vol rate/Area] 108.6 mL/min/{1.73_m2} - PINF [facility] Comment on above: eGFR [...] [Mass/Vol] 94 mg/dL 65 - 100 mg/dL [facility] Interpretation and review of laboratory results Abnormal [facility] Potassium [Moles/Vol] 3.5 mmol/L Low 3.6 - 5.1 mmol/L [facility] Sodium [Moles/Vol] 137 mmol/L 135 - 147 mmol/L [facility] CBCon 11-23-2023 Age [Time] 89.2 fL 80.6 - 99 fL [facility] Age [Time] 29.2 pg 27.0 - 34.2 pg [facility] Age [Time] 32.7 g/dL 31.4 - 36.2 g/dL [facility] Erythrocyte distribution width (RBC) [Ratio] 14.4 % 11.5 - 14.5 % [facility] Hematocrit (Bld) [Volume fraction] 49.8 % 37.7 - 51.1 % [facility] Hexanoylglycine (U) [Moles/Vol] 16.3 g/dL 12.8 - 17.7 g/dL [facility] Interpretation and review of laboratory results Normal [facility] Platelets (Bld) [#/Vol] 259 10*3/uL [facility] RBC (Bld) [#/Vol] 5.58 10*6/uL [facility] WBC (Bld) [#/Vol] 8.1 10*3/uL [facility] Erythrocyte distribution width (RBC) [Ratio] 14.4 % Normal 11.5-14.5 [facility] Comment on above: Performed By: #### 4 [id number], [id number], [id number], [id number] #### HO GUEVARA (2012) [facility] [address] [email or web address] [address] Hematocrit (Bld) [Volume fraction] 49.8 % Normal 37.7-51.1 [facility] Comment on above: Performed By: #### 4 [id number], [id number], [id number], [id number] #### HO GUEVARA (2012) [facility] [address] [email or web address] [address] Hemoglobin (Bld) [Mass/Vol] 16.3 g/dL Normal 12.8-17.7 [facility] Comment on above: Performed By: #### 4 [id number], [id number], [id number], [id number] #### HO GUEVARA (2012) [facility] [address] [email or web address] [address] MCH (RBC) [Entitic mass] 29.2 pg Normal 27.0-34.2 [facility] Comment on above: Performed By: #### 4 [id number], [id number], [id number], [id number] #### HO GUEVARA (2012) [facility] [address] [email or web address] [address] MCHC (RBC) [Mass/Vol] 32.7 g/dL Normal 31.4-36.2 [facility] Comment on above: Performed By: #### 4 [id number], [id number], [id number], [id number] #### HO GUEVARA (2012) [facility] [address] [email or web address] [address] MCV (RBC) [Entitic vol] 89.2 fL Normal 80.6-99 [facility] Comment on above: Performed By: #### 4 [id number], [id number], [id number], [id number] #### HO GUEVARA (2012) [facility] [address] [email or web address] [address] PLATELET COUNT 259 x10*3/uL Normal 150-400 [facility] Comment on above: Performed By: #### 4 [id number], [id number], [id number], [id number] #### HO GUEVARA (2012) [facility] [address] [place] [address] RED BLOOD CELL COUNT 5.58 x10*6/uL Normal 3.70-5.70 [facility] Comment on above: Performed By: #### 4 [id number], [id number], [id number], [id number] #### HO GUEVARA (2012) [facility] [address] [facility] [address] WHITE BLOOD CELLS 8.1 x10*3/uL Normal 4.3-10.3 [facility] Comment on above: Performed By: #### 4 [id number], [id number], [id number], [id number] #### HO GUEVARA (2012) [facility] [address] [place] [address] Cardiac echo study Procedure on 11-23-2023 1. [...] difficult with Definity Patient Status: OBV Site: [facility] Current Location: [facility] Exam Type: ECHOCARDIOGRAM WITH CONTRAST Study Info Indications - CHF Procedure(s) A complete two-dimensional, color flow and Doppler transthoracic echocardiogram was performed with Definity contrast to opacify the left ventricle and to improve the delineation of the left ventricle endocardial borders. Staff Primary Care Provider: None Pcp Ordering Provider: Canelo Cummins MD Body Repairer: Parrish Hanna [facility], RVT History/Risk Factors Tobacco Use: Current [...] mmHg MV VTI 29 cm MV Decel Andrew 325 cm/s2 MV PHT 83 ms MV [...] mmHg AV VTI 24.80 cm AV DI (Eliazar) (more content not included)... Salo Barajas MD [...] difficult with Definity Patient Status: V Site: [facility] Current Location: [facility] Exam Type: ECHOCARDIOGRAM WITH CONTRAST Study Info Indications - CHF Procedure(s) A complete two-dimensional, color flow and Doppler transthoracic echocardiogram was performed with Definity contrast to opacify the left ventricle and to improve the delineation of the left ventricle endocardial borders. Staff Primary Care Provider: None Pcp Ordering Provider: Canelo Cummins MD Body Repairer: Parrish Hanna [facility], RVT History/Risk Factors Tobacco Use: Current [...] mmHg MV VTI 29 cm MV Decel Andrew 325 cm/s2 MV PHT 83 ms MV [...] mmHg AV VTI 24.80 cm AV DI (Eliazar) 0.65 Ventricles Name Value Normal LV Dimensions [...] % LV Fractional (more content not included)... [facility] Radiology Study observation (narrative) [facility] Cardiac echo study Procedure Ordered By: Salo Plaza on 11-23-2023 [facility] Work Phone: PROCALCITONINon 11-23-2023 PROCALCITONIN 0.075 ng/mL Normal <=0.078 [facility] Comment on above: Result Comment: Proc alcitonin [...] Antibiotics strongly encouraged. Performed By: #### 4 [id number], [id number], [id number], [id number] #### HO GUEVARA (2013) [facility] [address] [place] [address] Procalcitoninon 11-23-2023 Interpretation and review of laboratory results Normal [facility] Procainamide [Mass/Vol] 0.075 ng/mL NINF - 0.078 ng/mL [facility] Comment on above: Procalcitonin Interp retation Guidelines: [...] Bacterial infection very likely. Antibiotics strongly encouraged. [facility] US.doppler Lower extremity v ein - bilateralon [...] performed. Staff Primary Care Physician: None Pcp Body Repairer: Libertad Connelly RDCS, RVT Ordering Physician: Shawna Sotelo APRN OUTBOUND SALES CONSULTANT Attending Physician: Lizbeth Wilson MD History/Risk Factors [...] performed. Staff Primary Care Physician: None Pcp Body Repairer: Libertad Connelly RD, RVT Ordering Physician: Shawna Sotelo APRN OUTBOUND SALES CONSULTANT Attending Physician: Lizbeth Wilson MD History/Risk Factors [...] Lizbeth Don DO on 11/23/2023 09:31 AM [facility] [employer] [facility] [employer] BASIC METABOLIC PANELon 10-31 Anion gap [Moles/Vol] 8 mmol/L Normal 8-12 [facility] Comment on above: Performed By: #### 4 [id number], [id number], [id number], [id number] #### HO GUEVARA (2012) [facility] [address] [place] [address] Calcium [Mass/Vol] 8.5 mg/dL Normal 8.4-10.[address] [facility] Comment on above: Performed By: #### 4 [id number], [id number], [id number], [id number] #### HO GUEVARA (2012) [facility] [address] [place] [address] Chloride [Moles/Vol] 103 mmol/L Normal 96-109 [facility] Comment on above: Performed By: #### 4 [id number], [id number], [id number], [id number] #### HO GUEVARA (2012) [facility] [address] [place] [address] CO2 [Moles/Vol] 27 mmol/L Normal 22-30 [facility] Comment on above: Performed By: #### 4 [id number], [id number], [id number], [id number] #### HO GUEVARA (2012) [facility] [address] [place] [address] Creatinine [Mass/Vol] 0.66 mg/dL Normal 0.66-1.25 [facility] Comment on above: Performed By: #### 4 [id number], [id number], [id number], [id number] #### HO GUEVARA (2012) [facility] [address] [place] [address] GLOMERULAR FILTRATION RATE ML/MIN/1.73 SQ M.PREDICTED 112.9 mL/min/1.73m*2 Normal >=60.0 [facility] [employer] Comment on above: Result Comment: eGFR calculation [...] Kidney Int Suppl.2013;3:1-150 Performed By: #### 4 [id number], [id number], [id number], [id number] #### HO GUEVARA (2012) [facility] [address] [place] [address] Glucose [Mass/Vol] 168 mg/dL High 65-100 [facility] Comment on above: Performed By: #### 4 [id number], [id number], [id number], [id number] #### HO GUEVARA (2012) [facility] [address] [place] [address] Potassium [Moles/Vol] 3.5 mmol/L Low 3.6-5.1 [facility] Comment on above: Performed By: #### 4 [id number], [id number], [id number], [id number] #### HO GUEVARA (2012) [facility] [address] [place] [address] Sodium [Moles/Vol] 138 mmol/L Normal 135-[address] [facility] Comment on above: Performed By: #### 4 [id number], [id number], [id number], [id number] #### HO GUEVARA (2012) [facility] [address] [place] [address] Urea nitrogen [Mass/Vol] 9 mg/dL Normal 8-26 [facility] Comment on above: Performed By: #### 4 [id number], [id number], [id number], [id number] #### HO GUEVARA (2012) [facility] [address] [place] [address] BLOOD CULTURE WITH GRAM STAI Non 11-22-2023 BLOOD CULTURE WITH GRAM STAIN BLOOD CULTURE GROWTH No Growth at 120 Hrs Normal [facility] Comment on above: Order Comment: Each culture must be from a different peripheral site. Do not draw from a central venous access device unless ordered by a physician. Performed By: #### 4 [id number], [id number], [id number], [id number] #### HO GUEVARA (2012) [facility] [address] [place] [address] BLOOD CULTURE WITH GRAM STAIN BLOOD CULTURE GROWTH 206COAGULASE NEGATIVE STAPH Coagulase negative Staph Growth in 1 bottle of 2 cultures drawn PROBABLE CONTAMINANT If Physician requests additional work-up contact Microbiology Lab at ext. [phone] within 5 days. GRAM STAIN OF CULTURE Gram positive cocci in clusters Growth in 1 bottle of 2 cultures drawn Normal [facility] Comment on above: Order Comment: Each culture must be from a different peripheral site. Do not draw from a central venous access device unless ordered by a physician. Performed By: #### 4 [id number] #### JACQU[address]INE [address] [place] [address] [place] BNPon 11-22-2023 Interpretation and review of laboratory results Abnormal [facility] Nucleated RBC/100 WBC (Bld) [Ratio] 315 pg/mL High NINF - 299 pg/mL [facility] Comment on above: [place]: Result In determinate Consider other causes of NT-proBNP elevation. BRAIN NATRIURETIC PEPTIDEon 11-22-2023 Natriuretic peptide B (Bld) [Mass/Vol] 315 pg/mL High <=299 [facility] Comment on above: Result Comment: [place]: Result Indeterminate Consider other causes of NT-proBNP elevation. Performed By: #### 4 [id number], [id number], [id number], [id number] #### HO GUEVARA (2012) [facility] [address] [facility] [place] [address] Basic metabolic panel aka Ch em 8on 11-22-2023 Anion gap [Moles/Vol] 8 mmol/L 8 - 12 mmol/L [facility] Calcium [Mass/Vol] 8.5 mg/dL 8.4 - 10. 4 mg/dL [facility] Calcium hydrogen phosphate dihydrate crystals LM Ql (Urine sed) 9 mg/dL 8 - 26 mg/dL [facility] Chloride [Moles/Vol] 103 mmol/L 96 - 10 9 mmol/L [facility] CO2 (BldMV) [Moles/Vol] 27 mmol/L 22 - 30 mmol/L [facility] [employer] Creatinine [Mass/Vol] 0.66 mg/dL 0.66 - 1.25 mg/dL [facility] [employer] GFR/1.73 sq M.predicted among non-blacks MDRD (S/P/Bld) [Vol rate/Area] 112.9 mL/min/{1.73_m2} - PINF [facility] Comment on above: eGFR [...] 168 mg/dL High 65 - 100 mg/dL [facility] Interpretation and review of laboratory results Abnormal [facility] [employer] Potassium [Moles/Vol] 3.5 mmol/L Low 3.6 - 5.1 mmol/L [facility] [employer] Sodium [Moles/Vol] 138 mmol/L 135 - 147 mmol/L [facility] CBC AND DIFFERENTIALon 11-21 ABSOLUTE BASOPHIL 0.0 x10*3/uL Normal 0.0-0.1 [facility] Comment on above: Performed By: #### 4 [id number], [id number], [id number], [id number] #### HO GUEVARA (2013) [facility] [address] [place] [address] ABSOLUTE EOSINOPHIL 0.2 x10*3/uL Normal 0.1-0.3 [facility] Comment on above: Performed By: #### 4 [id number], [id number], [id number], [id number] #### HO GUEVARA (2012) [facility] [address] [place] [address] ABSOLUTE IMMATURE GRANULOCYTES 0.0 x10*3/uL Normal 0.0-0.1 [facility] Comment on above: Performed By: #### 4 [id number], [id number], [id number], [id number] #### HO GUEVARA (2012) [facility] [address] [place] [address] ABSOLUTE LYMPH 1.7 x10*3/uL Normal 1.2-3.3 [facility] Comment on above: Performed By: #### 4 [id number], [id number], [id number], [id number] #### HO GUEVARA (2012) [facility] [address] [place] [address] ABSOLUTE MONO 0.6 x10*3/uL Normal 0.2-0.6 [facility] Comment on above: Performed By: #### 4 [id number], [id number], [id number], [id number] #### HO GUEVARA (2012) [facility] [address] [place] [address] ABSOLUTE NEUTROPHIL 5.4 x10*3/uL Normal 2.4-6.[address] [facility] Comment on above: Performed By: #### 4 [id number], [id number], [id number], [id number] #### HO GUEVARA (2012) [facility] [address] [place] [address] Basophils/100 WBC (Bld) 0.4 % Normal [facility] Comment on above: Performed By: #### 4 [id number], [id number], [id number], [id number] #### HO GUEVARA (2012) [facility] [address] [place] [address] Eosinophils/100 WBC (Bld) 2.7 % Normal [facility] Comment on above: Performed By: #### 4 [id number], [id number], [id number], [id number] #### HO GUEVARA (2012) [facility] [address] [address] Erythrocyte distribution width (RBC) [Ratio] 14.2 % Normal 11.5-14.5 [facility] Comment on above: Performed By: #### 4 [id number], [id number], [id number], [id number] #### HO GUEVARA (2012) [facility] [address] [address] Hematocrit (Bld) [Volume fraction] 53.1 % High 37.7-51.1 [facility] Comment on above: Performed By: #### 4 [id number], [id number], [id number], [id number] #### HO GUEVARA (2012) [facility] [address] [address] Hemoglobin (Bld) [Mass/Vol] 16.9 g/dL Normal 12.8-17.7 [facility] Comment on above: Performed By: #### 4 [id number], [id number], [id number], [id number] #### HO GUEVARA (2012) [facility] [address] [place] [address] Immature granulocytes/100 WBC (Bld) 0.1 % Normal [facility] Comment on above: Performed By: #### 4 [id number], [id number], [id number], [id number] #### HO GUEVARA (2012) [facility] [address] [place] [address] Lymphocytes/100 WBC (Bld) 20.8 % Normal [facility] Comment on above: Performed By: #### 4 [id number], [id number], [id number], [id number] #### HO GUEVARA (2012) [facility] [address] [address] MCH (RBC) [Entitic mass] 28.5 pg Normal 27.0-34.2 [facility] Comment on above: Performed By: #### 4 [id number], [id number], [id number], [id number] #### HO GUEVARA (2012) [facility] [address] [place] [address] MCHC (RBC) [Mass/Vol] 31.8 g/dL Normal 31.4-36.2 [facility] Comment on above: Performed By: #### 4 [id number], [id number], [id number], [id number] #### HO GUEVARA (2012) [facility] [address] [place] [address] MCV (RBC) [Entitic vol] 89.7 fL Normal 80.6-99 [facility] Comment on above: Performed By: #### 4 [id number], [id number], [id number], [id number] #### HO GUEVARA (2012) [facility] [address] [place] [address] Monocytes/100 WBC (Bld) 7.3 % Normal [facility] Comment on above: Performed By: #### 4 [id number], [id number], [id number], [id number] #### HO GUEVARA (2012) [facility] [address] [place] [address] Neutrophils/100 WBC (Bld) 68.7 % Normal [facility] Comment on above: Performed By: #### 4 [id number], [id number], [id number], [id number] #### HO GUEVARA (2012) [facility] [address] [place] [address] PLATELET COUNT 279 x10*3/uL Normal 150-400 [facility] Comment on above: Performed By: #### 4 [id number], [id number], [id number], [id number] #### HO GUEVARA (2012) [facility] [address] [place] [address] RED BLOOD CELL COUNT 5.92 x10*6/uL High 3.70-5.70 [facility] Comment on above: Performed By: #### 4 [id number], [id number], [id number], [id number] #### HO GUEVARA (2012) [facility] [address] [place] [address] WHITE BLOOD CELLS 7.9 x10*3/uL Normal 4.3-10.3 [facility] Comment on above: Performed By: #### 4 [id number], [id number], [id number], [id number] #### HO GUEVARA (2013) [facility] [address] [place] [address] CBC with DifferentialOrdered By: Background Lab on 11-22-2023 Absolute Immature Granulocytes 0.0 [facility] Age [Time] 89.7 fL 80.6 - 99 fL [facility] Age [Time] 28.5 pg 27.0 - 34.2 pg [facility] Age [Time] 31.8 g/dL 31.4 - 36.2 g/dL [facility] B. burgdorferi IgM IB [...] 53.1 % High 37.7 - 51.1 % [facility] Hexanoylglycine (U) [Moles/Vol] 16.9 g/dL 12.8 - 17.7 g/dL [facility] Immature granulocytes/100 WBC (Bld) 0.1 % [facility] Interpretation and review of laboratory results Abnormal [facility] Monocytes/100 WBC (Bld) 7.3 % [facility] Neurotensin (P) [Mass/Vol] 68.7 % [facility] Neutrophils (Bld) [#/Vol] 5.4 10*3/uL [facility] Platelets (Bld) [#/Vol] 279 10*3/uL [facility] RBC (Bld) [#/Vol] 5.92 10*6/uL High [facility] WBC (Bld) [#/Vol] 7.9 10*3/uL [facility] EKG 12 leadon 11-22-2023 [facility] pt Test Date: 2023-11-22 Pat Name: AZALIA MATTHEW Department: Room: Gender: M [employer]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 Electronically Signed On 11-22-2023 14:06:51 EDT by Lizbeth KELLER [facility] MAGNESIUMon 11-22-2023 Magnesium [Mass/Vol] 2.0 mg/dL Normal 1.6-2.3 [facility] Comment on above: Performed By: #### 4 [id number], [id number], [id number], [id number] #### HO GUEVARA (2012) [facility] [address] [address] Magnesiumon 11-22-2023 Magnesium [Mass/Vol] 2.0 mg/dL 1.6 - 2 .3 mg/dL [facility] Magnesium [Mass/Vol]on 11-21 Interpretation and review of laboratory results Normal Jacqueline [facility] No Panel Informationon 11-21 [facility] TROPONIN I SERIESon 11-22-19 24 Troponin I.cardiac [Mass/Vol] ng/mL Normal <=0.033 [facility] Comment on above: Result Comment: Nega tive: No detectable troponin-I. Performed By: #### 4 [id number], [id number], [id number], [id number] #### HO GUEVARA (2012) [facility] [address] [address] Troponin I - Series (X 3)on 11-22-2023 Interpretation and review of laboratory results Normal [facility] Troponin I.cardiac [Mass/Vol] ng/mL NINF - 0.033 ng/mL [facility] Comment on above: Negative: No detectable troponin-I. US.doppler Lower extremity v ein - bilateralon 11-22-2023 Radiology Study observation (narrative) [facility] WOUND CULTURE WITH GRAM [...] STAIN OF CULTURE No organisms seen Normal [facility] Comment on above: Performed By: #### 4 [id number] #### JAC[address] [place] [address] WOUND CULTURE WITH GRAM STAIN WOUND CULTURE [...] F ceFAZolin Susc Islt S F Susceptible [facility] Comment on above: Performed By: #### 4 [id number], [id number], [id number], [id number] #### HO GUEVRAA (2013) [facility] [address] [place] [address] XR CHEST 1 VIEWon 11-22-2023 XR CHEST [...] breath Best possible - pt obese Normal [facility] XR Chest Single viewon 11-21 1. CHF/fluid overload. [facility] EXAM: XR CHEST 1 VIE [...] Other comments: None. IMPRESSION: 1. CHF/fluid overload. [facility] Radiology Study observation (narrative) [facility] XR Chest Single viewOrdered By: Robert Sheehan on 11-22-2023 [facility] Work Phone: Absolute immature granulocyt e countOrdered By: FRANKO WAKEFIELD on 05-21-2022 Immature granulocytes (Bld) [#/Vol] 0.02 10*3/uL 0.00-0.10 [facility] Absolute lymphocyte countOrd ered By: FRANKO WAKEFIELD on 05-21-2022 Lymphocytes Auto (Unsp spec) [#/Vol] 1.30 10*3/uL 1.30-2.90 [facility] Appearance urOrdered By: TRIP PK FIGUEROAMARILEE on 05-21-2022 Appearance (U) Clear Clear [facility] Basic Metabolic Panelon 05-03 Anion gap [Moles/Vol] 12.5 mmol/L Normal 8.0-16.0 [facility] Comment on above: Performed By: #### B MP #### [address] [address] Calcium [Mass/Vol] 9.5 mg/dL Normal 8.2-10.0 [facility] Comment on above: Performed By: #### B MP #### [address] [address] Chloride [Moles/Vol] 102 mmol/L Normal 94-110 [facility] Comment on above: Performed By: #### B MP #### [address] [address] CO2 [Moles/Vol] 29 mmol/L Normal 21-34 [facility] Comment on above: Performed By: #### B MP #### [address] [address] Creatinine [Mass/Vol] 0.66 mg/dL Normal 0.50-1.17 [facility] Comment on above: Performed By: #### B MP #### [address] [place] [address] EGFR Other Races >60 Normal >60 [facility] Comment on above: Performed By: #### B MP #### [facility] [address] [place] [address] GFR/1.73 sq M.predicted among blacks MDRD (S/P/Bld) [Vol rate/Area] mL/min/{1.73_m2} Normal >60 [facility] Comment on above: Result Comment: Health Services Rn carlos Kidney Disease less than 60 mL/min/1.73 m2 Kidney Failure less than 15 mL/min/1.73 m2 Average estimated GFR by age: 50-59 years 93 mL/min/1.73 m2 Performed By: #### B MP #### [facility] [address] [place] [address] Glucose [Mass/Vol] 164 mg/dL High 65-100 [facility] Comment on above: Performed By: #### B MP #### [address] [place] [address] Potassium [Moles/Vol] 4.5 mmol/L Normal 3.3-5.1 [facility] Comment on above: Performed By: #### B MP #### [facility] [address] [place] [address] Sodium [Moles/Vol] 139 mmol/L Normal 132-145 [facility] Comment on above: Performed By: #### B MP #### [facility] [address] [place] [address] Urea nitrogen [Mass/Vol] 12.4 mg/dL Normal 3.2-26.9 [facility] Comment on above: Performed By: #### B MP #### [address] [place] [address] Urea nitrogen/Creatinine [Mass ratio] 19 mg/mg Normal 6-20 [facility] Comment on above: Performed By: #### B MP #### [address] [place] [address] CBC w/Auto Differentialon Basophils Abs. # 0.01 K/uL Normal 0.00-0.10 [facility] Comment on above: Performed By: #### C BCS #### [address] [place] [address] Basophils/100 WBC (Bld) 0.1 % Low 0.2-1.0 [facility] Comment on above: Performed By: #### C BCS #### [address] [address] Eosinophils (Bld) [#/Vol] 0.00 10*3/uL Normal 0.00-0.20 [facility] Comment on above: Performed By: #### C BCS #### [address] [address] Eosinophils/100 WBC (Bld) 0.1 % Low 0.9-2.9 [facility] Comment on above: Performed By: #### C BCS #### [address] [address] Erythrocyte distribution width (RBC) [Ratio] 13.6 % Normal 11.5-14.5 [facility] Comment on above: Performed By: #### C BCS #### [address] [address] Hematocrit (Bld) [Volume fraction] 52.8 % High 36.7-50.6 [facility] Comment on above: Performed By: #### C BCS #### [address] [place] [address] Hemoglobin (Bld) [Mass/Vol] 17.0 g/dL Normal 12.4-17.3 [facility] Comment on above: Performed By: #### C BCS #### [facility] [address] [place] [address] Imm Grans % 0.20 % Normal 0.00-1.00 [facility] Comment on above: Performed By: #### C BCS #### [address] [place] [address] Imm Grans Absolute # 0.02 K/uL Normal 0.00-0.10 [facility] Comment on above: Performed By: #### C BCS #### [address] [place] [address] Lymphocytes (Bld) [#/Vol] 1.30 10*3/uL Normal 1.30-2.90 [facility] Comment on above: Performed By: #### C BCS #### [address] [place] [address] Lymphocytes/100 WBC (Bld) 14.6 % Low 17.0-45.5 [facility] Comment on above: Performed By: #### C BCS #### [address] [place] [address] MCH (RBC) [Entitic mass] 28.9 pg Normal 27.0-31.0 [facility] Comment on above: Performed By: #### C BCS #### [address] [place] [address] MCHC (RBC) [Mass/Vol] 32.2 g/dL Low 33.0-37.0 [facility] Comment on above: Performed By: #### C BCS #### [address] [place] [address] MCV (RBC) [Entitic vol] 89.8 fL Normal 80.0-94.0 [facility] Comment on above: Performed By: #### C BCS #### [facility] [address] [place] [address] Monocytes (Bld) [#/Vol] 0.10 10*3/uL Low 0.30-0.80 [facility] Comment on above: Performed By: #### C BCS #### [facility] [address] [place] [address] Monocytes/100 WBC (Bld) 1.3 % Low 5.5-11.7 [facility] Comment on above: Performed By: #### C BCS #### [address] [place] [address] Neutrophils Abs. # 7.14 K/uL High 2.20-4.80 [facility] Comment on above: Performed By: #### C BCS #### [facility] [address] [place] [address] Neutrophils/100 WBC (Bld) 83.7 % High 43.0-65.0 [facility] Comment on above: Performed By: #### C BCS #### [address] [place] [address] Platelet mean volume (Bld) [Entitic vol] 10.5 fL High 7.4-10.4 [facility] Comment on above: Performed By: #### C BCS #### [address] [place] [address] Platelets (Bld) [#/Vol] 268 10*3/uL Normal 148-402 [facility] Comment on above: Performed By: #### C BCS #### [address] [place] [address] RBC (Bld) [#/Vol] 5.88 10*6/uL High 4.13-5.69 [facility] Comment on above: Performed By: #### C BCS #### [address] [place] [address] WBC (Bld) [#/Vol] 8.5 10*3/uL Normal 3.6-10.8 [facility] Comment on above: Performed By: #### C BCS #### [address] [address] Color urOrdered By: NELLY STEVE on 05-21-2022 Color (U) yellow Yellow [facility] Culture with gram stain, bod y fluidOrdered By: FRANKO WAKEFIELD on 05-21-2022 MCH (RBC) [Entitic mass] 28.9 pg 27.0-31.0 [facility] Determination of erythrocyte mean corpuscular volume (MCV)Ordered By: FRANKO WAKEFIELD on 05-21-2022 MCV (RBC) [Entitic vol] 89.8 fL 80.0-94.0 [facility] EMERGENCY DEPARTMENTon 05-21 EMERGENCY DEPARTMENT [address] [id number] HEALTH INFORMATION MANAGEMENT EMERGENCY DEPARTMENT : [phone] Signed with Octaviano Patient: AZALIA MATTHEW FRANK Acct:[id number] : [id number] : 1970 Sex: M Loc: 4TH FLOOR ADM Date: 05/20/22 Room/Bed: 425-B DISC Date: ADDENDUM--------- - I have been informed of the technology education instructor the CT will not be possible due to the patient's size, they are not able to get him on the CT table here. Further evaluation for PE can be done at by the inpatient team, consideration should be given for VQ scan, Doppler study, etc. Addendum: Signed Date/Time: 05/20/221935 Co-Signed: Co-signed Date/Time 05/20/22 7445 History of Present Illness - General Symptom [...] 4 weeks per patient. 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 Not seen any doctor for the same [...] - Soc (more content not included)... Normal [facility] Eosinophils/100 WBC Auto (Bl d)Ordered By: FRANKO WAKEFIELD on 05-21-2022 Eosinophils/100 WBC (Bld) 0.1 % 0.9-2.9 [facility] Erythrocyte distribution wid th ratioOrdered By: FRANKO WAKEFIELD on 05-21-2022 Erythrocyte distribution width (RBC) [Ratio] 13.6 % 11.5-14.5 [facility] High Sensitivity TNIon 05-21 Abs Change hsTnI 1 ng/L Normal [facility] Comment on above: Performed By: #### C MP #### [facility] [address] [place], [place] [id number] Delta % hsTnI 25 % Normal [facility] Comment on above: Performed By: #### C MP #### [facility] [address] [place], [place] [id number] High Sensitivity TNI 4 ng/L Normal 0-76 [facility] Comment on above: Result Comment: Inte rpretation comment: High-sensitivity troponin I (hsTnI) assay can reliably detect low troponin concentrations relative to conventional troponin assays. It is the preferred marker of myocardial necrosis as recommended by the Fourth [place] Definition of Myocardial Infarction Guidelines. The diagnosis [...] significant. Performed By: #### C MP #### [facility] [address] [place] [address] Abs Change hsTnI 2 ng/L Normal [facility] Comment on above: Performed By: #### H STNI #### [facility] [address] [place] [address] Delta % hsTnI 40 % Normal [facility] Comment on above: Performed By: #### H STNI #### [facility] [address] [place] [address] High Sensitivity TNI 5 ng/L Normal 0-76 [facility] Comment on above: Result Comment: Inte rpretation comment: High-sensitivity troponin I (hsTnI) assay can reliably detect low troponin concentrations relative to conventional troponin assays. It is the preferred marker of myocardial necrosis as recommended by the Fourth [place] Definition of Myocardial Infarction Guidelines. The diagnosis [...] significant. Performed By: #### H STNI #### [facility] [address] [place] [address] Immature granulocytes/100 WB C Auto (Bld)Ordered By: FRANKO WAKEFIELD on 05-21-2022 Immature granulocytes/100 WBC (Bld) 0.20 % 0.00-1.00 [facility] Ketones Test strip Ql (U)Ord ered By: NELLY DIMAS on 05-21-2022 Ketones Ql (U) 5 Negative [facility] Laboratory - Chemistry and C hemistry - challengeOrdered By: FRANKO WAKEFIELD on 05-21-2022 Calcium [Mass/Vol] 9.5 mg/dL 8.2-10.0 [facility] Creatinine [Mass/Vol] 0.66 mg/dL 0.50-1.17 [facility] Glucose [Mass/Vol] 164 mg/dL 65-100 [facility] Magnesium [Mass/Vol] 2.1 mg/dL 1.3-2.3 [facility] Urea nitrogen [Mass/Vol] 12.4 mg/dL 3.2-26.9 [facility] Urea nitrogen/Creatinine [Mass ratio] 19 mg/mg 6-20 [facility] Laboratory - Chemistry and C hemistry - challengeOrdered By: NELLY DIMAS on 05-21-2022 Bilirubin Ql (U) Negative Negative [facility] Glucose Ql (U) 50 Negative [facility] Laboratory - Hematology and Cell countsOrdered By: FRANKO WAKEFIELD on 05-21-2022 Basophils (Bld) [#/Vol] 0.01 10*3/uL 0.00-0.10 [facility] Hematocrit (Bld) [Volume fraction] 52.8 % 36.7-50.6 [facility] MCHC (RBC) [Mass/Vol] 32.2 g/dL 33.0-37.0 [facility] Platelet mean volume (Bld) [Entitic vol] 10.5 fL 7.4-10.4 [facility] Platelets (Bld) [#/Vol] 268 10*3/uL 148-402 [facility] RBC (Bld) [#/Vol] 5.88 10*6/uL 4.13-5.69 [facility] WBC (Bld) [#/Vol] 8.5 10*3/uL 3.6-10.8 [facility] Magnesiumon 05-21-2022 Magnesium [Mass/Vol] 2.1 mg/dL Normal 1.3-2.3 [facility] Comment on above: Performed By: #### C BCS #### [facility] [address] [place] [address] Monocyte %Ordered By: MAYRA WAKEFIELD on 05-21-2022 Monocyte % 139 mmol/L 132-145 [facility] Monocyte % 4.5 mmol/L 3.3-5.1 [facility] Monocyte % 102 mmol/L 94-110 [facility] Monocyte % 29 mmol/L 21-34 [facility] Monocyte % 17.0 g/dL 12.4-17.3 [facility] Monocytes (Bld) [#/Vol] 7.14 10*3/uL 2.20-4.80 [facility] Monocytes (Bld) [#/Vol] 0.10 10*3/uL 0.30-0.80 [facility] Monocytes (Bld) [#/Vol] 0 10*3/uL 0.00-0.20 [facility] Monocytes/100 WBC (Bld) 14.6 % 17.0-45.5 [facility] Monocytes/100 WBC (Bld) 1.3 % 5.5-11.7 [facility] Monocytes/100 WBC (Bld) 0.1 % 0.2-1.0 [facility] Neutrophils seg % bldOrdered By: FRANKO WAKEFIELD on 05-21-2022 Segmented neutrophils/100 WBC (Bld) 83.7 % 43.0-65.0 [facility] Nitrite Test strip Ql (U)Ord ered By: NELLY DIMAS on 05-21-2022 Nitrite Ql (U) Negative Negative [facility] No Panel InformationOrdered By: FRANKO WAKEFIELD on 05-21-2022 Estimated GFR (MDRD) Amer > 60 >60 [facility] Comment on above: Chronic Kidney Disea se less than 60 mL/min/1.73 [id number] Failure less than 15 mL/min/1.73 [id number] estimated GFR by age:50-59 years 93 mL/min/1.73 m2 Estimated GFR (MDRD) Non-Af Amer > 60 >60 [facility] No Panel InformationOrdered By: NELLY DIMAS on 05-21-2022 Urine Urobilinogen Normal mg/dL Normal-1.0 [facility] Urine WBC 0-2 /hpf 0 - 6 [facility] Protein ur QLOrdered By: TRIP DIMAS on 05-21-2022 Protein Ql (U) Negative Negative [facility] RBC LM Ql (Urine sed)Ordered By: NELLY DIMAS on 05-21-2022 RBC Ql (U) 0-2 /hpf 0 - 2 [facility] RBC Test strip (U) [#/Vol]Or dered By: NELLY DIMAS on 05-21-2022 RBC (U) [#/Vol] 10 /uL Negative [facility] Serum or plasma anion gapOrd ered By: FRANKO WAKEFIELD on 05-21-2022 Anion gap [Moles/Vol] 12.5 mmol/L 8.0-16.0 [facility] Specific gravity Test strip (U) [Rel density]Ordered By: NELLY DIMAS on 05-21-2022 Specific gravity (U) [Rel density] 1.015 1.015-1.02 5 [facility] UA w/Micrscopic-reflex cultu reon 05-21-2022 Appearance (U) CLEAR Normal Clear [facility] Comment on above: Performed By: #### U AMRC #### [facility] [address] [place] [address] Bacteria OUTBOUND SALES CONSULTANT Normal 0 - 1+ [facility] Comment on above: Performed By: #### U AMRC #### [facility] [address] [place] [address] Bilirubin Ql (U) Negative Normal Negative [facility] Comment on above: Performed By: #### U AMRC #### [address] [place] [address] Casts OUTBOUND SALES CONSULTANT Normal [facility] Comment on above: Performed By: #### U AMRC #### [facility] [address] [place] [address] Casts. OUTBOUND SALES CONSULTANT Normal [facility] Comment on above: Performed By: #### U AMRC #### [facility] [address] [place] [address] Color (U) yellow Normal Yellow [facility] Comment on above: Performed By: #### U AMRC #### [facility] [address] [place] [address] Crystals LM Nom (Urine sed) OUTBOUND SALES CONSULTANT Normal [facility] Comment on above: Performed By: #### U AMRC #### [facility] [address] [place] [address] Crystals. OUTBOUND SALES CONSULTANT Normal [facility] Comment on above: Performed By: #### U AMRC #### [address] [place], [place] [id number] Epithelial cells LM Ql (Urine sed) OUTBOUND SALES CONSULTANT Normal 0 - 6 [facility] Comment on above: Performed By: #### U AMRC #### [facility] [address] [place] [address] Glucose Ql (U) 50 Abnormal Negative [facility] Comment on above: Performed By: #### U AMRC #### [address] [place] [address] Hemoglobin Ql (U) 10 Abnormal Negative [facility] Comment on above: Performed By: #### U AMRC #### [address] [address] Ketones Ql (U) 5 Abnormal Negative [facility] Comment on above: Performed By: #### U AMRC #### [address] [place] [address] Leukocytes Esterase Negative Normal Negative [facility] Comment on above: Performed By: #### U AMRC #### [address] [place] [address] Mucus Ql (Urine sed) OUTBOUND SALES CONSULTANT Normal [facility] Comment on above: Performed By: #### U AMRC #### [address] [place] [address] Nitrite Ql (U) Negative Normal Negative [facility] Comment on above: Performed By: #### U AMRC #### [address] [place] [address] pH (U) 5 [pH] Normal [facility] Comment on above: Performed By: #### U AMRC #### [address] [place], [place] [id number] Protein Ql (U) Negative Normal Negative [facility] Comment on above: Performed By: #### U AMRC #### [address] [place] [address] RBC 0-2 Normal 0 - 2 [facility] Comment on above: Performed By: #### U AMRC #### [address] [place] [address] Specific gravity (U) [Rel density] 1.015 Normal 1.015-1.02 5 [facility] Comment on above: Performed By: #### U AMRC #### [place] [address] Trichomonas OUTBOUND SALES CONSULTANT Normal [facility] Comment on above: Performed By: #### U AMRC #### [place] [address] Urobilinogen NORMAL Normal Normal-1.0 [facility] Comment on above: Performed By: #### U AMRC #### [place] [address] WBC 0-2 Normal 0 - 6 [facility] Comment on above: Performed By: #### U AMRC #### [place] [address] Yeast OUTBOUND SALES CONSULTANT Normal [facility] Comment on above: Performed By: #### U AMRC #### [id number] Other OUTBOUND SALES CONSULTANT Normal [facility] Comment on above: Performed By: #### U AMRC #### [id number] US SAMMY LEGS FOR DVTon 2022 US [...] in either lower extremity. RECOMMENDATIONS: Unavailable Normal [facility] Urine leukocyte esterase det ection by dipstickOrdered By: NELLY DIMAS on 05-21-2022 Leukocyte esterase Test strip Ql (U) Negative Negative [facility] pH Test strip (U)Ordered By: NELLY DIMAS on 05-21-2022 pH (U) 5 [pH] [facility] 2019 Novel Coronavirus (CoVI D-19), NAAon 05-20-2022 SARS-CoV-2 (COVID-19) RNA BANDAR+probe Ql (Unsp spec) Not detected Normal Not Detected [facility] Comment on above: Result Comment: This nucleic acid amplification test was developed and its performance characteristics determined by [employer]. Nucleic acid amplification tests include RT-PCR and [...] detected) result in this assay. Performed at: [facility] [id number] Director Cardiology: Jose Alfredo Belle PhD, Phone: [phone] Performed By: #### L COV #### [address] [address] Albumin ser/plasOrdered By: NELLY DIMAS on 05-20-2022 Albumin [Mass/Vol] 3.6 g/dL 3.4-5.0 [facility] Blood total protein measurem entOrdered By: NELLY DIMAS on 05-20-2022 Protein [Mass/Vol] 8.2 g/dL 6.1-8.2 [facility] CBC w/Auto Differentialon Basophils Abs. # 0.02 K/uL Normal 0.00-0.10 [facility] Comment on above: Performed By: #### C BCS #### [address] [address] Basophils/100 WBC (Bld) 0.3 % Normal 0.2-1.0 [facility] Comment on above: Performed By: #### C BCS #### [address] [address] Eosinophils (Bld) [#/Vol] 0.20 10*3/uL Normal 0.00-0.20 [facility] Comment on above: Performed By: #### C BCS #### [address] [address] Eosinophils/100 WBC (Bld) 2.7 % Normal 0.9-2.9 [facility] Comment on above: Performed By: #### C BCS #### [address] [address] Erythrocyte distribution width (RBC) [Ratio] 13.5 % Normal 11.5-14.5 [facility] Comment on above: Performed By: #### C BCS #### [address] [place] [address] Hematocrit (Bld) [Volume fraction] 53.7 % High 36.7-50.6 [facility] Comment on above: Performed By: #### C BCS #### [address] [address] Hemoglobin (Bld) [Mass/Vol] 17.1 g/dL Normal 12.4-17.3 [facility] Comment on above: Performed By: #### C BCS #### [address] [address] Imm Grans % 0.10 % Normal 0.00-1.00 [facility] Comment on above: Performed By: #### C BCS #### [address] [address] Imm Grans Absolute # 0.01 K/uL Normal 0.00-0.10 [facility] Comment on above: Performed By: #### C BCS #### [place] [address] Lymphocytes (Bld) [#/Vol] 2.40 10*3/uL Normal 1.30-2.90 [facility] Comment on above: Performed By: #### C BCS #### [address] [place] [address] Lymphocytes/100 WBC (Bld) 31.7 % Normal 17.0-45.5 [facility] Comment on above: Performed By: #### C BCS #### [address] [place] [id number] MCH (RBC) [Entitic mass] 28.7 pg Normal 27.0-31.0 [facility] Comment on above: Performed By: #### C BCS #### [address] [place] [address] MCHC (RBC) [Mass/Vol] 31.8 g/dL Low 33.0-37.0 [facility] Comment on above: Performed By: #### C BCS #### [address] [place] [address] MCV (RBC) [Entitic vol] 90.1 fL Normal 80.0-94.0 [facility] Comment on above: Performed By: #### C BCS #### [address] [place] [address] Monocytes (Bld) [#/Vol] 0.60 10*3/uL Normal 0.30-0.80 [facility] Comment on above: Performed By: #### C BCS #### [address] [place] [address] Monocytes/100 WBC (Bld) 8.1 % Normal 5.5-11.7 [facility] Comment on above: Performed By: #### C BCS #### [address] [place] [address] Neutrophils Abs. # 4.25 K/uL Normal 2.20-4.80 [facility] Comment on above: Performed By: #### C BCS #### [address] [place] [address] Neutrophils/100 WBC (Bld) 57.1 % Normal 43.0-65.0 [facility] Comment on above: Performed By: #### C BCS #### [address] [place] [address] Platelet mean volume (Bld) [Entitic vol] 9.9 fL Normal 7.4-10.4 [facility] Comment on above: Performed By: #### C BCS #### [facility] [address] [place] [address] Platelets (Bld) [#/Vol] 252 10*3/uL Normal 148-402 [facility] Comment on above: Performed By: #### C BCS #### [address] [place] [address] RBC (Bld) [#/Vol] 5.96 10*6/uL High 4.13-5.69 [facility] Comment on above: Performed By: #### C BCS #### [address] [place] [address] WBC (Bld) [#/Vol] 7.4 10*3/uL Normal 3.6-10.8 [facility] Comment on above: Performed By: #### C BCS #### [address] [place] [address] CHEST APon 05-20-2022 CHEST AP EXAMINATION: ONE XRAY VIEW OF THE CHEST 05/20/2022 5:29 pm COMPARISON: HISTORY: ORDERING SYSTEM PROVIDED HISTORY: dyspnea/cough FINDINGS: The lungs are without acute focal process. There is no effusion or pneumothorax. The cardiomediastinal silhouette is without acute process. The osseous structures are without acute process. IMPRESSION: No acute process. Normal [facility] Comprehensive Metabolic Pane art 05-20-2022 Albumin [Mass/Vol] 3.6 g/dL Normal 3.4-5.0 [facility] Comment on above: Performed By: #### C MP #### [address] [place] [address] Albumin/Globulin [Mass ratio] 0.8 {ratio} Low 1.1-2.5 [facility] Comment on above: Performed By: #### C MP #### [address] [place] [address] ALP [Catalytic activity/Vol] 210 U/L High 54-112 [facility] Comment on above: Performed By: #### C MP #### [address] [place] [address] ALT [Catalytic activity/Vol] 69 U/L High 13-66 [facility] Comment on above: Performed By: #### C MP #### [address] [address] Anion gap [Moles/Vol] 12.2 mmol/L Normal 8.0-16.0 [facility] Comment on above: Performed By: #### C MP #### [address] [place] [address] AST [Catalytic activity/Vol] 32 U/L Normal 3-39 [facility] Comment on above: Performed By: #### C MP #### [address] [place] [address] Bilirubin [Mass/Vol] 0.34 mg/dL Normal 0.00-0.99 [facility] Comment on above: Performed By: #### C MP #### [address] [place] [address] Calcium [Mass/Vol] 9.3 mg/dL Normal 8.2-10.0 [facility] Comment on above: Performed By: #### C MP #### [address] [place] [address] Chloride [Moles/Vol] 103 mmol/L Normal 94-110 [facility] Comment on above: Performed By: #### C MP #### [facility] [address] [place] [address] CO2 [Moles/Vol] 31 mmol/L Normal 21-34 [facility] Comment on above: Performed By: #### C MP #### [facility] [address] [place] [address] Creatinine [Mass/Vol] 1.07 mg/dL Normal 0.50-1.17 [facility] Comment on above: Performed By: #### C MP #### [facility] [address] [place] [address] EGFR Other Races >60 Normal >60 [facility] Comment on above: Performed By: #### C MP #### [facility] [address] [place] [address] GFR/1.73 sq M.predicted among blacks MDRD (S/P/Bld) [Vol rate/Area] mL/min/{1.73_m2} Normal >60 [facility] Comment on above: Result Comment: Health Services Rn carlos Kidney Disease less than 60 mL/min/1.73 m2 Kidney Failure less than 15 mL/min/1.73 m2 Average estimated GFR by age: 50-59 years 93 mL/min/1.73 m2 Performed By: #### C MP #### [facility] [address] [place] [address] Globulin (S) [Mass/Vol] 4.6 g/dL High 1.5-4.5 [facility] Comment on above: Performed By: #### C MP #### [facility] [address] [place] [address] Glucose [Mass/Vol] 108 mg/dL High 65-100 [facility] Comment on above: Performed By: #### C MP #### [facility] [address] [place] [address] Potassium [Moles/Vol] 4.2 mmol/L Normal 3.3-5.1 [facility] Comment on above: Performed By: #### C MP #### [facility] [address] [place] [address] Protein [Mass/Vol] 8.2 g/dL Normal 6.1-8.2 [facility] Comment on above: Performed By: #### C MP #### [facility] [address] [place] [address] Sodium [Moles/Vol] 142 mmol/L Normal 132-145 [facility] Comment on above: Performed By: #### C MP #### [address] [place] [address] Urea nitrogen [Mass/Vol] 14.7 mg/dL Normal 3.2-26.9 [facility] Comment on above: Performed By: #### C MP #### [address] [place] [address] Urea nitrogen/Creatinine [Mass ratio] 14 mg/mg Normal 6-20 [facility] Comment on above: Performed By: #### C MP #### [address] [place] [address] Culture with gram stain, bod y fluidOrdered By: NELLY IDMAS on 05-20-2022 Albumin/Globulin [Mass ratio] 0.8 {ratio} 1.1-2.5 [facility] AST [Catalytic activity/Vol] 32 U/L 3-39 [facility] D-Dimeron 05-20-2022 D-Dimer 0.66 mg/L FEU Critically high 0.00-0.49 [facility] Comment on above: Result Comment: Nega tive [...] - Performed By: #### D YUMIKO #### [address] [address] Detection in respiratory spe cimen of antigen of either or both severe acute respiratoOrdered By: NELLY DIMAS on 05-20-2022 SARS-CoV+SARS-CoV-2 (COVID-19) Ag IA.rapid Ql (Resp) Negative Negative [facility] Comment on above: The Viola 2 SARS Ant igen WING is a lateral flow immunofluorescent sandwichassay that is used with the Viola 2 instrument intended for the qualitativedetection of the nucleocapsid protein antigen from SARS-CoV-2 innasopharyngeal (OUTBOUND SALES CONSULTANT) and nasal (NS) swab specimens directly or [...] 05-20 Abs Change hsTnI 0 ng/L Normal [facility] Comment on above: Performed By: #### H STNI #### [facility] [address] [place] [address] Delta % hsTnI 0 % Normal [facility] Comment on above: Performed By: #### H STNI #### [facility] [address] [place] [address] High Sensitivity TNI 7 ng/L Normal 0-76 [facility] Comment on above: Result Comment: Inte rpretation comment: High-sensitivity troponin I (hsTnI) assay can reliably detect low troponin concentrations relative to conventional troponin assays. It is the preferred marker of myocardial necrosis as recommended by the Fourth [place] Definition of Myocardial Infarction Guidelines. The diagnosis [...] significant. Performed By: #### H STNI #### [address] [place] [address] High Sensitivity TNI 7 ng/L Normal 0-76 [facility] Comment on above: Result Comment: Inte rpretation comment: High-sensitivity troponin I (hsTnI) assay can reliably detect low troponin concentrations relative to conventional troponin assays. It is the preferred marker of myocardial necrosis as recommended by the Fourth [place] Definition of Myocardial Infarction Guidelines. The diagnosis [...] significant. Performed By: #### C MP #### [address] [address] INR in Platelet poor plasma by Coagulation assayOrdered By: NELLY DIMAS on 05-20-2022 INR Coag (PPP) [Relative time] 0.97 {INR} [facility] Comment on above: 2.0 - 3.0 Group A2.5 - 3.5 Group BGroup A indications: Prophylaxis and treatment of venousthrombosis. Treatment of pulmonary embolism. Prevention ofsystemic embolism. Tissue heart valves. Acute myocardialinfarction. Valvular heart disease. Atrial fibrillation.Group B indications: Mechanical prosthetic valves. . Influenza A B (Rapid)on 05-02 Influenza A antigen Negative Normal (Negative) [facility] Comment on above: Performed By: #### C MP #### [address] [place] [address] Influenza B antigen Negative Normal (Negative) [facility] Comment on above: Performed By: #### C MP #### [address] [place] [address] Interpretation of serum or p lasma cardiac troponin I measurement by high sensitivityOrdered By: FRANKO WAKEFIELD on 05-20-2022 Troponin I.cardiac High sensitivity method Ql [Interp] 4 ng/L 0-76 [facility] Comment on above: Interpretation comme nt:High-sensitivity [...] 05-20-2022 ALP [Catalytic activity/Vol] 210 U/L 54-112 [facility] ALT [Catalytic activity/Vol] 69 U/L 13-66 [facility] Globulin (S) [Mass/Vol] 4.6 g/dL 1.5-4.5 [facility] Natriuretic peptide B (Bld) [Mass/Vol] 104 pg/mL 0-125 [facility] Comment on above: NOTE-Dietary supplem ents containing high biotin levels may cause significantinterference with affected lab tests, including cardiovascular diagnostictests and hormone tests that use biotin technology. Incorrect test resultsmay be generated if there is biotin in the patients specimen. Lipaseon 05-20-2022 Lipase [Catalytic activity/Vol] 32 U/L Low 65-230 [facility] Comment on above: Performed By: #### L IPAS #### [address] [place] [address] Lipase ser/plasOrdered By: Park DIMAS on 05-20-2022 Lipase [Catalytic activity/Vol] 32 U/L 65-230 [facility]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 Equipment Origin al Text Equipment Identifier Dates Start: 11-24-2023 End: 12-26-2023 Goals Date Patient Goal Desired Activity /State Interventions Dates Intervention Start: 11-23-2023 (2 sources) Functional Status Date Assessment Result Facility 11-14-2024 Functional status D[place] Feet [facility] Work Phone: 09-08-2024 Functional status Ambulates [facility] Work Phone: 09-07-2024 Functional status Straight Cane [facility] Work Phone: 06-14-2024 Functional status Standby Assist [facility] Work Phone: 05-21-2022 Functional status Eating (Feedin g) Ability Independent [facility] Work Phone: 05-21-2022 Functional status Barriers to Learning No ne [facility] Work Phone: 05-20-2022 Functional status Oral Expressio n Ability No Impairment [facility] Work Phone: Mental Status Date Assessment Result Facility 11-14-2024 Cognitive function Voice/Name [facility] Work Phone: 11-09-2024 Cognitive function Level Of Cons ciousness Awake;Alert;Appropriate;Follow s Commands [facility] Work Phone: 09-08-2024 Cognitive function Voice/Name [facility] Work Phone: 09-07-2024 Cognitive function Voice/Name [facility] Work Phone: 06-14-2024 Cognitive function Voice/Name [facility] Work Phone: 05-21-2022 Cognitive function Level Of Cons ciousness Awake;Alert;Appropriate;Follow s Commands [facility] Work Phone: 05-21-2022 Cognitive function Name [facility] Work Phone: 05-20-2022 Cognitive function Comprehension Ability No Impairment [facility] Work Phone: Clinical Notes 05-21-2022 to 11-14-2024 Note Date & Type Note Facility 11-14-2024 Discharge summary [facility] 11-14-2024 Discharge summary [facility] 11-14-2024 Note [facility] 11-14-2024 Hospital Discharg e instructions Additional Instructions Date of Discharge: 11/14/24 [facility] Work Phone: 11-13-2024 Progress note Note Date/Time November 13, 2024 5:41pm [facility] Medical Records Department [address] [place] [address] Progress Note - Hospitalist 11/13/24 1738 MR#: [id number] Acct: [id number] Name: AZALIA MATTHEW II Rep #:[id number] 1 : 1970 53 From: Adelso Paniagua DO PCP: Dr. Juliana Cox, DO Status:ADM IN Location: [place] [address] 1 Reason for Visit Chief Complaint: Worsening shortness of breath and lower extremity swelling Subjective Subjective Patient was seen and examined today, I stopped his Lasix drip and placed him on oral Lasix today. We are awaiting approval for the patient to go to a skilled facility for skilled services presently. Objective Data Objective Data Vital Signs: Vital Signs Temp Pulse Resp BP Pulse Ox O2 Del Method O2 Flow Rate 97.8 F 76 18 127/73 H 92 Room Air 92 11/13/24 10:55 11/13/24 10:55 11/13/24 10:55 11/13/24 10:55 11/13/24 13:10 11/13/24 10:55 11/13/24 13:06 Oxygen Flow Rate (L/min) 92 Oxygen Delivery Method Room Air Weight: 224 kg Body Mass Index (BMI) 70.8 Intake & Output: Intake and Output for Last 24 Hours 11/11/24 11/12/24 11/13/24 23:59 23:59 23:59 Intake Total 1470 / 1470 1060 / 1060 56.03 / 56.03 Output Total 5825 / 5825 3400 / 3400 2225 / 2225 Balance -4355 / -4355 -2340 / -2340 -2168.97 / -2168.97 Lab / Micro Data 11/10/24 06:15 11/12/24 09:33 Social Homelessness:: Unsheltered Physical Exam Narrative alert, oriented x3 and no apparent distress Constitutional Narrative: Patient has class III obesity General Appearance: cooperative, well kempt and well developed Orientation / Consciousness: awake, oriented to person, oriented to place and oriented to time HEENT normocephalic, head/scalp atraumatic and moist oral mucous membranes Eyes PERRL, EOMs intact bilaterally and conjunctivae normal Neck supple, no JVD and thyroid normal General: trachea midline Resp normal respiratory effort, no retractions, no use of accessory muscles and clearto auscultation bilaterally Auscultation: Negative for rales, rhonchi or wheezes Cardio regular rate, regular rhythm, S1 normal heart sound, S2 normal heart sound, no murmurs, no rub and no gallops GI normal to inspection, nondistended, normoactive bowel sounds, soft to palpation,non-tender and non-distended Extremity Extremity Narrative: Generalized edema and stasis dermatitis changes are noted over both lower legs, there are bruised areas noted on the patient's heels bilaterally Skin General Skin Exam: no breakdown Neuro oriented x3, CN's II-XII intact bilaterally, moves all extremities, no focal motor deficits and no sensory deficits noted Sensorium / Orientation: awake and alert Speech: speech normal Psych affect normal Assessment & Plan Assessment/Plan (1) CHF (congestive heart failure): PLAN: Plan 1. Acute diastolic CHF-according to the patient, he has never had a diagnosis of CHF before, this rules out acute on chronic CHF. Patient will remain on oralLasix at this time, we are awaiting approval for the patient to go to a skilled facility for short-term rehab services. Patient is presently homeless #2 acute debility secondary #1 on a backdrop of class III obesity-PT and OT willcontinue to see the patient, he has consented to go to a skilled facility for short-term rehab services. #3 class III obesity-complicates care, management, recovery, and prognosis #4 essential hypertension-patient's losartan and hydrochlorothiazide was discontinued, he remains on oral Lasix #5 homelessness-complicates care, management, recovery, and prognosis Total clinical time spent by myself addressing the patient's medical issues, reviewing all of his data, and collaborating with patient's care team: 35 minutes Charges/Coding Visit Charges Inpatient E&M: 08044 Subs Hosp L2 11/13/24 1741 <Electronically signed by Adelso Paniagua DO> Cosigner Signature (if applicable): CC: ~ Signed [facility] Work Phone: 1(649) 156-254707-15-2025 Progress note [facility] Medical Records Department [address] [place] [address] Progress Note - Hospitalist 11/13/24 4811 MR#: [id number] Acct: [id number] Name: AZALIA MATTHEW II Rep #:[id number] 1 : 1970 53 From: Adelso Paniagua DO PCP: Dr. Juliana Cox, DO Status:ADM IN Location: [place] [address] Reason for Visit Chief Complaint: Worsening shortness of breath and lower extremity swelling Subjective Subjective Patient was seen and examined today, I stopped his Lasix drip and placed him on oral Lasix today. We are awaiting approval for the patient to go to a skilled facility for skilled services presently. Objective Data Objective Data Vital Signs: Vital Signs Temp Pulse Resp BP Pulse Ox O2 Del Method O2 Flow Rate 97.8 F 76 18 127/73 H 92 Room Air 92 11/13/24 10:55 11/13/24 10:55 11/13/24 10:55 11/13/24 10:55 11/13/24 13:10 11/13/24 10:55 11/13/24 13:06 Oxygen Flow Rate (L/min) 92 Oxygen Delivery Method Room Air Weight: 224 kg Body Mass Index (BMI) 70.8 Intake & Output: Intake and Output for Last 24 Hours 11/11/24 11/12/24 11/13/24 23:59 23:59 23:59 Intake Total 1470 / 1470 1060 / 1060 56.03 / 56.03 Output Total 5825 / 5825 3400 / 3400 2225 / 2225 Balance -4355 / -4355 -2340 / -2340 -2168.97 / -2168.97 Lab / Micro Data 11/10/24 06:15 11/12/24 09:33 Social Homelessness:: Unsheltered Physical Exam Narrative alert, oriented x3 and no apparent distress Constitutional Narrative: Patient has class III obesity General Appearance: cooperative, well kempt and well developed Orientation / Consciousness: awake, oriented to person, oriented to place and oriented to time HEENT normocephalic, head/scalp atraumatic and moist oral mucous membranes Eyes PERRL, EOMs intact bilaterally and conjunctivae normal Neck supple, no JVD and thyroid normal General: trachea midline Resp normal respiratory effort, no retractions, no use of accessory muscles and clearto auscultation bilaterally Auscultation: Negative for rales, rhonchi or wheezes Cardio regular rate, regular rhythm, S1 normal heart sound, S2 normal heart sound, no murmurs, no rub and no gallops GI normal to inspection, nondistended, normoactive bowel sounds, soft to palpation,non-tender and non-distended Extremity Extremity Narrative: Generalized edema and stasis dermatitis changes are noted over both lower legs, there are bruised areas noted on the patient's heels bilaterally Skin General Skin Exam: no breakdown Neuro oriented x3, CN's II-XII intact bilaterally, moves all extremities, no focal motor deficits and no sensory deficits noted Sensorium / Orientation: awake and alert Speech: speech normal Psych affect normal Assessment & Plan Assessment/Plan (1) CHF (congestive heart failure): PLAN: Plan 1. Acute diastolic CHF-according to the patient, he has never had a diagnosis of CHF before, this rules out acute on chronic CHF. Patient will remain on oralLasix at this time, we are awaiting approval for the patient to go to a skilled facility for short-term rehab services. Patient is presently homeless #2 acute debility secondary #1 on a backdrop of class III obesity-PT and OT willcontinue to see thepatient, he has consented to go to a skilled facility for short-term rehab services. #3 class III obesity-complicates care, management, recovery, and prognosis #4 essential hypertension-patient's losartan and hydrochlorothiazide was discontinued, he remains on oral Lasix #5 homelessness-complicates care, management, recovery, and prognosis Total clinical time spent by myself addressing the patient's medical issues, reviewing all of his data, and collaborating with patient's care team: 35 minutes Charges/Coding Visit Charges Inpatient E&M: 09220 Subs Hosp L2 11/13/24 1741 Cosigner Signature (if applicable): CC: ~ Signed [facility]07-14-2025 Progress note Author Adelso Paniagua [facility] Note Date/Time November 12, 2024 6:40 pm [facility] Medical Records Department [address] [place] [address] Progress Note - Hospitalist 11/12/24 1837 MR#: [id number] Acct: [id number] Name: AZALIA MATTHEW II Rep #:[id number] 5 : 1970 53 From: Adelso Paniagua DO PCP: Dr. Juliana Cox, DO Status:ADM IN Location: [place] [address] Reason for Visit Chief Complaint: Worsening shortness of breath and lower extremity swelling Subjective Subjective Patient was seen and examined today, we are are awaiting approval for him to go to a skilled facility. Patient remains on room air at this time Objective Data Objective Data Vital Signs: Vital Signs Temp Pulse Resp BP Pulse Ox O2 Del Method O2 Flow Rate 98.6 F 88 18 139/99 H 93 Room Air 2 11/12/24 16:30 11/12/24 16:30 11/12/24 16:30 11/12/24 16:30 11/12/24 16:30 11/12/24 16:30 11/12/24 07:32 Oxygen Flow Rate (L/min) 2 Oxygen Delivery Method Room Air Weight: 225.5 kg Body Mass Index (BMI) 71.3 Intake & Output: Intake and Output for Last 24 Hours 11/10/24 11/11/24 11/12/24 23:59 23:59 23:59 Intake Total 444 / 1044 1470 / 1470 700 / 700 Output Total 6875 / 15955 5825 / 5825 2425 / 2425 Balance -6431 / -9106 -4355 / -4355 -1725 / -1725 Lab / Micro Data 11/10/24 06:15 11/12/24 09:33 Labs: Laboratory Results - last 24 hr 11/12/24 09:33: Sodium 140, Potassium 4.6, Chloride 95 L, Carbon Dioxide 36.1 H,Anion Gap 9, BUN 13, Creatinine 0.93, Estim Creat Clear Calc 176.11, Est GFR (MDRD) Non-Af 98, BUN/Creatinine Ratio 14.0, Glucose 113 H, Calcium 9.3 Social Homelessness:: Unsheltered Physical Exam Narrative alert, oriented x3 and no apparent distress Constitutional Narrative: Patient has class III obesity General Appearance: cooperative, well kempt and well developed Orientation / Consciousness: awake, oriented to person, oriented to place and oriented to time HEENT normocephalic, head/scalp atraumatic and moist oral mucous membranes Eyes PERRL, EOMs intact bilaterally and conjunctivae normal Neck supple, no JVD and thyroid normal General: trachea midline Resp normal respiratory effort, no retractions, no use of accessory muscles and clearto auscultation bilaterally Auscultation: Negative for rales, rhonchi or wheezes Cardio regular rate, regular rhythm, S1 normal heart sound, S2 normal heart sound, no murmurs, no rub and no gallops GI normal to inspection, nondistended, normoactive bowel sounds, soft to palpation,non-tender and non-distended Extremity Extremity Narrative: Generalized edema and stasis dermatitis changes are noted over both lower legs, there are bruised areas noted on the patient's heels bilaterally Skin General Skin Exam: no breakdown Neuro oriented x3, CN's II-XII intact bilaterally, moves all extremities, no focal motor deficits and no sensory deficits noted Sensorium / Orientation: awake and alert Speech: speech normal Psych affect normal Assessment & Plan Assessment/Plan (1) CHF (congestive heart failure): PLAN: Plan 1. Acute diastolic CHF-according to the patient, he has never had a diagnosis of CHF before, this rules out acute on chronic CHF. Patient will remain on IV Lasix at this time, echocardiogram showed preserved ejection fraction with no evidence of valvular heart disease and no evidence of pulmonary hypertension. #2 acute debility secondary #1 on a backdrop of class III obesity-PT and OT willcontinue to see the patient, he has consented to go to a skilled facility for short-term rehab services. #3 class III obesity-complicates care, management, recovery, and prognosis #4 essential hypertension-patient's losartan and hydrochlorothiazide was discontinued, he remains on Lasix drip for now Total clinical time spent by myself addressing the patient's medical issues, reviewing all of his data, and collaborating with patient's care team: 35 minutes Charges/Coding Visit Charges Inpatient E&M: 61892 Subs Hosp L2 11/12/24 1840 <Electronically signed by Adelso Paniagua DO> Cosigner Signature (if applicable): CC: ~ Signed [facility] Work Phone: 1(776) 527-326807-14-2025 Progress note [facility] Medical Records Department [address] [place] [address] Progress Note - Hospitalist 11/12/24 1837 MR#: [id number] Acct: [id number] Name: AZALIA MATTHEW II Rep #:[id number] 5 : 1970 53 From: Adelso Paniagua DO PCP: Dr. Juliana oCx, DO Status:ADM IN Location: [place] [address] Reason for Visit Chief Complaint: Worsening shortness of breath and lower extremity swelling Subjective Subjective Patient was seen and examined today, we are are awaiting approval for him to go to a skilled facility. Patient remains on room air at this time Objective Data Objective Data Vital Signs: Vital Signs Temp Pulse Resp BP Pulse Ox O2 Del Method O2 Flow Rate 98.6 F 88 18 139/99 H 93 Room Air 2 11/12/24 16:30 11/12/24 16:30 11/12/24 16:30 11/12/24 16:30 11/12/24 16:30 11/12/24 16:30 11/12/24 07:32 Oxygen Flow Rate (L/min) 2 Oxygen Delivery Method Room Air Weight: 225.5 kg Body Mass Index (BMI) 71.3 Intake & Output: Intake and Output for Last 24 Hours 11/10/24 11/11/24 11/12/24 23:59 23:59 23:59 Intake Total 444 / 1044 1470 / 1470 700 / 700 Output Total 6875 / 05729 5825 / 5825 2425 / 2425 Balance -6431 / -9106 -4355 / -4355 -1725 / -1725 Lab / Micro Data 11/10/24 06:15 11/12/24 09:33 Labs: Laboratory Results - last 24 hr 11/12/24 09:33: Sodium 140, Potassium 4.6, Chloride 95 L, Carbon Dioxide 36.1 H,Anion Gap 9, BUN 13, Creatinine 0.93, Estim Creat Clear Calc 176.11, Est GFR (MDRD) Non-Af 98, BUN/Creatinine Ratio 14.0, Glucose 113 H, Calcium 9.3 Social Homelessness:: Unsheltered Physical Exam Narrative alert, oriented x3 and no apparent distress Constitutional Narrative: Patient has class III obesity General Appearance: cooperative, well kempt and well developed Orientation / Consciousness: awake, oriented to person, oriented to place and oriented to time HEENT normocephalic, head/scalp atraumatic and moist oral mucous membranes Eyes PERRL, EOMs intact bilaterally and conjunctivae normal Neck supple, no JVD and thyroid normal General: trachea midline Resp normal respiratory effort, no retractions, no use of accessory muscles and clearto auscultation bilaterally Auscultation: Negative for rales, rhonchi or wheezes Cardio regular rate, regular rhythm, S1 normal heart sound, S2 normal heart sound, no murmurs, no rub and no gallops GI normal to inspection, nondistended, normoactive bowel sounds, soft to palpation,non-tender and non-distended Extremity Extremity Narrative: Generalized edema and stasis dermatitis changes are noted over both lower legs, there are bruised areas noted on the patient's heels bilaterally Skin General Skin Exam: no breakdown Neuro oriented x3, CN's II-XII intact bilaterally, moves all extremities, no focal motor deficits and no sensory deficits noted Sensorium / Orientation: awake and alert Speech: speech normal Psych affect normal Assessment & Plan Assessment/Plan (1) CHF (congestive heart failure): PLAN: Plan 1. Acute diastolic CHF-according to the patient, he has never had a diagnosis of CHF before, this rules out acute on chronic CHF. Patient will remain on IV Lasix at this time, echocardiogram showed preserved ejection fraction with no evidence of valvular heart disease and no evidence of pulmonary hypertension. #2 acute debility secondary #1 on a backdrop of class III obesity-PT and OT willcontinue to see thepatient, he has consented to go to a skilled facility for short-term rehab services. #3 class III obesity-complicates care, management, recovery, and prognosis #4 essential hypertension-patient's losartan and hydrochlorothiazide was discontinued, he remains on Lasix drip for now Total clinical time spent by myself addressing the patient's medical issues, reviewing all of his data, and collaborating with patient's care team: 35 minutes Charges/Coding Visit Charges Inpatient E&M: 23325 Subs Hosp L2 11/12/24 1840 Cosigner Signature (if applicable): CC: ~ Signed [facility]07-13-2025 Progress note Author Adelso Paniagua [facility] Note Date/Time November 11, 2024 3:23 pm [facility] Medical Records Department [address] [place] [address] Progress Note - Hospitalist 11/11/24 1518 MR#: [id number] Acct: [id number] Name: AZALIA MATTHEW II Rep #:[id number] 8 : 1970 53 From: Adelso Paniagua DO PCP: Dr. Juliana Cox, DO Status:ADM IN Location: [place] [address] Reason for Visit Chief Complaint: Worsening shortness of breath and lower extremity swelling Subjective Subjective Today, I stopped his blood pressure medication due to hypotension, I would like him to remain on IV Lasix at this time. I briefly discussed possibility of him going to the custodial facility for short-term rehab services, patient is not against this. Objective Data Objective Data Vital Signs: Vital Signs Temp Pulse Resp BP Pulse Ox O2 Del Method O2 Flow Rate 97.7 F L 68 18 107/68 92 Room Air 2 11/11/24 14:48 11/11/24 15:00 11/11/24 14:48 11/11/24 14:48 11/11/24 14:48 11/11/24 14:48 11/10/24 02:45 Oxygen Flow Rate (L/min) 2 Oxygen Delivery Method Room Air Weight: 127.4 kg Body Mass Index (BMI) 40.3 Intake & Output: Intake and Output for Last 24 Hours 11/09/24 11/10/24 11/11/24 23:59 23:59 23:59 Intake Total 444 / 1044 600 / 600 Output Total 6875 / 22366 4850 / 4850 Balance -6431 / -9106 -4250 / -4250 Lab / Micro Data 11/10/24 06:15 11/10/24 06:15 Social Homelessness:: Unsheltered Physical Exam Const alert, oriented x3 and no apparent distress Constitutional Narrative: Patient has class III obesity General Appearance: cooperative, well kempt and well developed Orientation / Consciousness: awake, oriented to person, oriented to place and oriented to time HEENT normocephalic, head/scalp atraumatic and moist oral mucous membranes Eyes PERRL, EOMs intact bilaterally and conjunctivae normal Neck supple, no JVD and thyroid normal General: trachea midline Resp normal respiratory effort, no retractions, no use of accessory muscles and clearto auscultation bilaterally Auscultation: Negative for rales, rhonchi or wheezes Cardio regular rate, regular rhythm, S1 normal heart sound, S2 normal heart sound, no murmurs, no rub and no gallops GI normal to inspection, nondistended, normoactive bowel sounds, soft to palpation,non-tender and non-distended Extremity Extremity Narrative: Generalized edema and stasis dermatitis changes are noted over both lower legs, there are bruised areas noted on the patient's heels bilaterally Skin General Skin Exam: no breakdown Neuro oriented x3, CN's II-XII intact bilaterally, moves all extremities, no focal motor deficits and no sensory deficits noted Sensorium / Orientation: awake and alert Speech: speech normal Psych affect normal Assessment & Plan Assessment/Plan (1) CHF (congestive heart failure): PLAN: Plan 1. Acute diastolic CHF-according to the patient, he has never had a diagnosis of CHF before, this rules out acute on chronic CHF. Patient will remain on IV Lasix at this time, echocardiogram showed preserved ejection fraction with no evidence of valvular heart disease and no evidence of pulmonary hypertension. #2 acute debility secondary #1 on a backdrop of class III obesity-PT and OT willcontinue to see the patient, he has consented to go to a skilled facility for short-term rehab services. #3 class III obesity-complicates care, management, recovery, and prognosis #4 essential hypertension-patient's losartan and hydrochlorothiazide was discontinued, he remains on Lasix drip for now, BMP will be rechecked tomorrow Total clinical time spent by myself addressing the patient's medical issues, reviewing all of his data, and collaborating with patient's care team: 35 minutes Charges/Coding Visit Charges Inpatient E&M: 13721 Subs Hosp L2 11/11/24 1523 <Electronically signed by Adelso Paniagua DO> Cosigner Signature (if applicable): CC: ~ Signed [facility] Work Phone: 1(920) 807-147107-13-2025 Progress note [facility] Medical Records Department [address] [place] [address] Progress Note - Hospitalist 11/11/24 1518 MR#: [id number] Acct: [id number] Name: AZALIA MATTHEW II Rep #:[id number] : 1970 53 From: Adelso Paniagua DO PCP: Dr. Juliana Cox, Status:ADM IN Location: [place] [address] Reason for Visit Chief Complaint: Worsening shortness of breath and lower extremity swelling Subjective Subjective Today, I stopped his blood pressure medication due to hypotension, I would like him to remain on IVLasix at this time. I briefly discussed possibility of him going to the custodial facility for short-term rehab services, patient is not against this. Objective Data Objective Data Vital Signs: Vital Signs Temp Pulse Resp BP Pulse Ox O2 Del Method O2 Flow Rate 97.7 F L 68 18 107/68 92 Room Air 2 11/11/24 14:48 11/11/24 15:00 11/11/24 14:48 11/11/24 14:48 11/11/24 14:48 11/11/24 14:48 11/10/24 02:45 Oxygen Flow Rate (L/min) 2 Oxygen Delivery Method Room Air Weight: 127.4 kg Body Mass Index (BMI) 40.3 Intake & Output: Intake and Output for Last 24 Hours 11/09/24 11/10/24 11/11/24 23:59 23:59 23:59 Intake Total 444 / 1044 600 / 600 Output Total 6875 / 30978 4850 / 4850 Balance -6431 / -9106 -4250 / -4250 Lab / Micro Data 11/10/24 06:15 11/10/24 06:15 Social Homelessness:: Unsheltered Physical Exam Const alert, oriented x3 and no apparent distress Constitutional Narrative: Patient has class III obesity General Appearance: cooperative, well kempt and well developed Orientation / Consciousness: awake, oriented to person, oriented to place and oriented to time HEENT normocephalic, head/scalp atraumatic and moist oral mucous membranes Eyes PERRL, EOMs intact bilaterally and conjunctivae normal Neck supple, no JVD and thyroid normal General: trachea midline Resp normal respiratory effort, no retractions, no use of accessory muscles and clearto auscultation bilaterally Auscultation: Negative for rales, rhonchi or wheezes Cardio regular rate, regular rhythm, S1 normal heart sound, S2 normal heart sound, no murmurs, no rub and no gallops GI normal to inspection, nondistended, normoactive bowel sounds, soft to palpation,non-tender and non-distended Extremity Extremity Narrative: Generalized edema and stasis dermatitis changes are noted over both lower legs, there are bruised areas noted on the patient's heels bilaterally Skin General Skin Exam: no breakdown Neuro oriented x3, CN's II-XII intact bilaterally, moves all extremities, no focal motor deficits and no sensory deficits noted Sensorium / Orientation: awake and alert Speech: speech normal Psych affect normal Assessment & Plan Assessment/Plan (1) CHF (congestive heart failure): PLAN: Plan 1. Acute diastolic CHF-according to the patient, he has never had a diagnosis of CHF before, this rules out acute on chronic CHF. Patient will remain on IV Lasix at this time, echocardiogram showed preserved ejection fraction with no evidence of valvular heart disease and no evidence of pulmonary hypertension. #2 acute debility secondary #1 on a backdrop of class III obesity-PT and OT willcontinue to see thepatient, he has consented to go to a skilled facility for short-term rehab services. #3 class III obesity-complicates care, management, recovery, and prognosis #4 essential hypertension-patient's losartan and hydrochlorothiazide was discontinued, he remains on Lasix drip for now, BMP will be rechecked tomorrow Total clinical time spent by myself addressing the patient's medical issues, reviewing all of his data, and collaborating with patient's care team: 35 minutes Charges/Coding Visit Charges Inpatient E&M: 97091 Subs Hosp L2 11/11/24 1523 Cosigner Signature (if applicable): CC: ~ Signed [facility]07-12-2025 Progress note Author Adelso [facility] Note Date/Time November 10, 2024 7:08 pm [facility] Medical Records Department [address] [place] [address] Progress Note - Hospitalist 11/10/241906 MR#: [id number] Acct: [id number] Name: AZALIA MATTHEW TARI Rep #:[id number] : 1970 53 From: Adelso Paniagua DO PCP: Dr. Juliana Cox, DO Status:ADM IN Location: [place] [address] Hospitalist Note Patient was seen and examined briefly today, he confirmed to me that he is presently homeless and lives in his car. Patient states he has never had a diagnosis of congestive heart failure before although he does have problems withwater retention/edema. I have decided today to place the patient on IV Lasix drip to expedite diuresis. I ordered an echocardiogram today which showed a normal EF of 55% and no significant valvular heart disease. 11/10/241907 <Electronically signed by Adelso Paniagua DO> Cosigner Signature (if applicable): CC: ~ Signed [facility] Work Phone: 1(411) 576-737907-12-2025 Progress note [facility] Medical Records Department [address] [place] [address] Progress Note - Hospitalist 11/10/241906 MR#: [id number] Acct: [id number] Name: AZALIA MATTHEW II Rep #:[id number] 2 : 1970 53 From: Adelso Paniagua DO PCP: Dr. Juliana Cox, Status:ADM IN Location: [facility] [id number]- [id number] Hospitalist Note Patient was seen and examined briefly today, he confirmed to me that he is presently homeless and lives in his car. Patient states he has never had a diagnosis of congestive heart failure before although he does have problems withwater retention/edema. I have decided today to place the patient on IV Lasix drip to expedite diuresis. I ordered an echocardiogram today which showed a normal EF of 55%and no significant valvular heart disease. 11/10/24 190 Cosigner Signature (if applicable): CC: ~ Signed [facility]07-12-2025 History and physical note Author Efraín Toledo [facility] Note Date/Time November 10, 2024 12:4 2am [facility] Medical Records Department [address] [place] [address] H&P Exam - Hospitalist 11/10/24 0006 MR#: [id number] Acct: [id number] Name: AZALIA MATTHEW II Rep #:[id number] 1 : 1970 53 From: Efraín weinberg DO PCP: Dr. Juliana Cox, DO Status:ADM IN Location: [facility] [id number]- [id number] HPI - General General Date of Admission: 11/10/24 Date of Service: 11/10/24 Chief Complaint: Worsening shortness of breath and lower extremity swelling HPI Narrative AZALIA MATTHEW, is a 53 M who presented to [facility] ED on 11/10/2024 with worsening shortness of breath and lower extremity swelling. Medical history significant for super morbid obesity with BMI 70, HFpEF, COPD, SINA, AntiBac obese. He was last hospitalized here in August for a COPD exacerbation. He presents today with progressive worsening shortness of breath and lower extremity swelling with heel pain. Notes that he recently became homeless. He was started on a medication apparently by his PCP for lower extremity swelling but it was not Lasix. In the ED he was mildly hypertensive to the 150s systolic. Oxygen saturation in the low 90s on room air at rest but dropped to the mid 80s with minimal exertion. Chest x-ray showed vascular congestion and pulmonary edema. Foot x-rays showed marked generalized bilaterallower extremity soft tissue edema with bilateral calcaneal spurs. CBC and BMP were fairly benign. NT proBNP normal at 168 though this is underestimated with obesity. Given CHF exacerbation with hypoxia, hospitalist was contacted for admission. I saw the patient at bedside in the ED. Patient was laying back in bed, conversing normally, in no acute distress. Denies any shortness of breath at rest. Denies any chest pain. Has chronic back pain that his writing him currently. Otherwise denies any other acute concerns. Will be admitted for further management. [facility] Medical History Tracheal stenosis Obesity hypoventilation syndrome SINA (obstructive sleep apnea) Tobacco abuse COPD (chronic obstructive pulmonary disease) History of cellulitis Morbid obesity Home Medications ?Medication ?Instructions ?Recorded ?Last Taken ?Type chlorthalidone 50 mg tablet 12.5 mg (1/4 x 50 mg) PO D AILY 30 09/08/24 Unknown Rx days #8 tabs dextromethorphan-guaifenesin ER 60 1 tab PO Q12H 7 day s #14 tabs 09/08/24 Unknown Rx mg-1,200 mg tab,extend release,12hr (Mucinex DM) lisinopril 20 mg tablet 20 mg PO DAILY 30 days #30 t abs 09/08/24 Unknown Rx nicotine 14 mg/24 hr daily 14 mg transdermal DAILY 4 w eeks 09/08/24 Unknown Rx transdermal patch #28 ea albuterol sulfate 90 mcg/actuation 1 inh inhalation Q6 H PRN shortness 11/09/24 Unknown History breath activated powder inhaler of breath losartan 50 mg-hydrochlorothiazide 1 tab PO DAILY 10/30 05/26 Unknown History 12.5 mg tablet Allergy/AdvReac Type Severity Reaction Status Date / Time No Known Allergies Allergy Verified 11/09/24 22:03 Family History Mother Cancer Father Cancer Surgical History History of cholecystectomy History of appendectomy Social History household members: friend(s) 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 Smoking Status: Current every day smoker tobacco type: cigarettes Tobacco: How many years used: 36 alcohol intake: never substance use type: does not use ROS Constitutional Constitutional: Reports fatigue; Denies chills, fever(s) or weakness Eyes Eyes: Denies change in vision Cardiovascular Cardiovascular: Reports dyspnea on exertion and edema; Denies chest pain, lightheadedness, orthopnea or palpitations Respiratory/Chest Respiratory/Chest: Reports shortness of breath with exertion; Denies cough, shortness of breath at rest or wheezing Gastrointestinal Gastrointestinal: Denies abdominal pain Musculoskeletal Musculoskeletal: Denies arthralgias or myalgias Vital Signs Vital Signs Vital Signs: 11/09/24 22:00 11/09/24 22:29 11/09/24 23:59 Temperature 97.9 F Temperature Source Oral Pulse Rate 82 67 Respiratory Rate 18 21 H Blood Pressure 131/79 H 154/81 H Blood Pressure Mean 96 105 Pulse Ox 91 95 92 Oxygen Delivery Method Room Air Room Air Room Air 11/10/24 00:04 Temperature 98.1 F Temperature Source Pulse Rate 69 Respiratory Rate 18 Blood Pressure 154/81 H Blood Pressure Mean 105 Pulse Ox 92 Oxygen Delivery Method Weight Weight: 233.9 kg Body Mass Index (BMI) 71.8 Physical Exam Const alert, oriented x3 and no apparent distress Constitutional Narrative: Middle-age male, super morbid obesity, otherwise laying back comfortably in bed,conversing normally, in no acute distress. General Appearance: cooperative and comfortable HEENT normocephalic, head/scalp atraumatic, hearing grossly normal bilaterally, nasal mucous membranes and turbinates normal and moist oral mucous membranes Eyes PERRL, EOMs intact bilaterally and conjunctivae normal Neck full ROM Chest inspection of chest normal Resp normal respiratory effort and no use of accessory muscles Resp Narrative: Breathing comfortably on room air at rest. Diminished breath sounds throughout with crackles noted in mid lung zones bilaterally. No wheezing noted. Cardio regular rate, regular rhythm, no murmurs and peripheral pulses 2+ throughout GI normal to inspection, nondistended, normoactive bowel sounds, soft to palpation,non-tender and non-distended Back/Spine normal ROM Extremity Extremity Narrative: +3-4 lower extremity edema with erythema and chronic venous stasis changes noted. Psych mental status grossly normal Results Lab / Micro Data 11/09/24 22:28 11/09/24 22:28 Labs: Laboratory Results - last 24 hr 11/09/24 22:28: WBC 8.3, RBC 5.37, Hgb 15.4, Hct 47.9, MCV 89.2, MCH 28.7, MCHC 32.2, RDW Std Deviation 46.8 H, RDW Coeff of Pradeep 14.5, Plt Count 253, MPV 9.6, Immature Gran % (Auto) 0.200, Neut % (Auto) 66.1, Lymph % (Auto) 22.6, [place] % (Auto) 8.4, Eos % (Auto) 2.2, Baso % (Auto) 0.5, Absolute Neuts (auto) 5.5, Absolute Lymphs (auto) 1.88, Nucleated RBC % 0, Sodium 139, Potassium 3.9, Chloride 101, Carbon Dioxide 26.8, Anion Gap 11, BUN 11, Creatinine 0.73, Estim Creat Clear Calc 232.29, Est GFR (MDRD) Non-Af 109, BUN/Creatinine Ratio 14.3, Glucose 93, Calcium 9.0, NT pro BNP II 184 Imaging Radiology Impression Chest X-Ray 11/09/24 22:18 IMPRESSION: Cardiomegaly with vascular congestion and pulmonary edema. Reading Location: [facility] Lumbar Spine X-Ray 11/09/24 22:18 IMPRESSION: No evidence of acute fracture or subluxation. Multilevel degenerative changes. Reading Location: [facility] Foot X-Ray 11/09/24 22:23 IMPRESSION: 1. Bilateral calcaneal spurs. No acute abnormality. 2. Marked generalized bilateral lower extremity soft tissue edema. Reading Location: [facility] Foot X-Ray 11/09/24 22:45 IMPRESSION: 1. Bilateral calcaneal spurs. No acute abnormality. 2. Marked generalized bilateral lower extremity soft tissue edema. Reading Location: [facility] Assessment & Plan Assessment/Plan (1) Acute on chronic heart failure with preserved ejection fraction (HFpEF): (2) Bilateral leg edema: PLAN: Plan Patient is a 53-year-old male who presented to [facility] ED on 11/10/2024 with worsening shortness of breath and lower extremity swelling. 1. Acute on chronic HFpEF with hypoxia with exertion, lower extremity swelling with chronic venous stasis changes ? Admit under inpatient status to PCU. Chest x-ray with cardiomegaly with vascular congestion pulmonary edema. Foot x-rays with marked bilateral lower extremity swelling. BNP normal but underestimated with obesity. Hypoxic to 86%on exertion in the ED. Last echo in 12/2023 showed EF 65%, with otherwise technically difficult due to body habitus. Will treat with IV Lasix 40 mg every8 hours for now. Monitor daily BMP and urine output. 2. Acute on chronic debility with homelessness, history of chronic back pain ? PT/OT/case management consulted. Patient reports recently becoming homeless, unclear where he is living right now. Debility is primarily due to obesity, chronic back pain, severe lower extremity swelling and bilateral heel pain from calcaneal spurs. Appreciate therapy and case management recommendations. Chronic medical conditions: ? Class III obesity with SINA: BMI 71 on admit. Complicates hospital course, care and prognosis. Continue PAP therapy at night. ? Hypertension: Continue home losartan?hydrochlorothiazide. ? COPD: No wheezing on exam, not in acute exacerbation. Continue home albuterolinhaler as needed. ? Tobacco abuse: Denied need for nicotine replacement therapy on admission. Discussed cessation on discharge. DVT prophylaxis: Lovenox twice daily CODE STATUS: Full code, verified Expected disposition: TBD Total clinical time spent by myself addressing the patient's medical issues, reviewing all the data, and collaborating with patient's care team: 75 minutes. Charges/Coding Visit Charges Inpatient E&M: 67992 Init Hosp L3 11/10/24 0042 <Electronically signed by Efraín Toledo DO> Cosigner Signature (if applicable): CC: Dr. Efraín Toledo, ; Dr. Juliana Cox DO~ Signed [facility] Work Phone: 1(358) 668-518207-12-2025 Discharge summary Author Brennon Steiner [facility] Note Date/Time November 10, 2024 12:2 7am [facility] Medical Records Department [address] [place] [address] Emergency Department Summary 11/09/24 MR#: [id number] Acct: [id number] Name: AZALIA MATTHEW TARI Rep #:[id number] : 1970 53 From: Brennon Steiner DO PCP: Dr. Juliana Cox DO Status:REG ER Location: ED ADDENDUM by Dr. Brennon Steiner DO on 11/10/24 at 0027 Patient's EKG reviewed showed sinus rhythm with a rate of 73 beats per minutes. 11/10/24 0027<Electronically signed by Brennon Steiner DO> Cosigner Signature (if applicable): cc: Dr. Juliana Cox, ~* Signed HPI History of Present Illness Chief Complaint: Edema Narrative Narrative: Patient is a 53-year-old male with past medical history of COPD, BMI of 71, SINA who presented to the emergency department with chief complaint of low back pain,bilateral heel pain, swelling in his lower extremities with shortness of breath. Patient states that he recently became homeless he states and notes that he wasrecently started on a medication by his doctor for the swelling in his lower extremities he states that this is not Lasix. Patient states that has had significant worsening shortness of breath on exertion as well. Patient states that he cannot put pressure on his heels bilaterally as this is significantly painful for him he notes that this started today. Patient states that he fell about a week to week and a half ago after picking up a generator and he landed on his back. He states he did not pass out did not lose consciousness denies any blood thinning medications. He states that the other day he fell as well and landed on the left side in the doorway. Once again he states he did not hithis head not pass out. [facility] Medical History Tracheal stenosis Obesity hypoventilation syndrome SINA (obstructive sleep apnea) Tobacco abuse COPD (chronic obstructive pulmonary disease) History of cellulitis Morbid obesity Home Medications ?Medication ?Instructions ?Recorded ?Last Taken ?Type chlorthalidone 50 mg tablet 12.5 mg (1/4 x 50 mg) PO D AILY 30 09/08/24 Unknown Rx days #8 tabs dextromethorphan-guaifenesin ER 60 1 tab PO Q12H 7 day s #14 tabs 09/08/24 Unknown Rx mg-1,200 mg tab,extend release,12hr (Mucinex DM) lisinopril 20 mg tablet 20 mg PO DAILY 30 days #30 t abs 09/08/24 Unknown Rx nicotine 14 mg/24 hr daily 14 mg transdermal DAILY 4 w eeks 09/08/24 Unknown Rx transdermal patch #28 ea albuterol sulfate 90 mcg/actuation 1 inh inhalation Q6 H PRN shortness 11/09/24 Unknown History breath activated powder inhaler of breath losartan 50 mg-hydrochlorothiazide 1 tab PO DAILY 10/30 05/26 Unknown History 12.5 mg tablet Allergy/AdvReac Type Severity Reaction Status Date / Time No Known Allergies Allergy Verified 11/09/24 22:03 Family History Mother Cancer Father Cancer Surgical History History of cholecystectomy History of appendectomy Social History household members: friend(s) 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 Smoking Status: Current every day smoker tobacco type: cigarettes Tobacco: How many years used: 36 alcohol intake: never substance use type: does not use ROS ROS ED ROS Narrative Constitutional: Denies any fevers, chills, headaches Eyes: Denies change in vision double vision blurry vision Cardiovascular: Denies chest pain Respiratory: Complains shortness of breath as noted above denies coughing Abdomen: Denies abdominal pain nausea vomit diarrhea : Denies urinary symptoms Neurological: Denies any numbness, wheeze, tingling Musculoskeletal: Complains of low back pain, heel pain as noted above Skin: Denies any new rashes or lesions EXAM Physical Exam Narrative Exam Narrative: General: Patient lying in bed rest comfortably did not appear to be in acute distress Head: Atraumatic, normocephalic Eyes: PERRL bilaterally, EOMI blood, no conjunctival injection noted Neck: Soft, supple, trachea midline Cardiovascular: Regular rate and rhythm no murmurs gallops rubs noted Respiratory: Clear to auscultation bilaterally Abdomen: No tenderness palpation Musculoskeletal: Patient has tenderness palpation over the heels bilaterally Extremities: +4/5 strength noted in the bilateral upper and lower extremities, Neurological: Patient functions knew that he was at [facility] year is 2024 Skin: Patient has chronic skin changes noted to the bilateral lower extremities no concern for infection at this point time Const Vital Signs: 11/09/24 22:00 11/09/24 22:29 Temperature 97.9 F Temperature Source Oral Pulse Rate 82 Respiratory Rate 18 Blood Pressure 131/79 H Blood Pressure Mean 96 Pulse Ox 91 95 Oxygen Delivery Method Room Air Room Air MDM MDM MDM Narrative Medical decision making narrative: Patient is a 53-year-old male who presented to the emergency department with a chief complaint of low back pain, bilateral heel pain, dyspnea on exertion. On the differential diagnose includes Melamin to compression fracture, plantar fasciitis, CHF. Once workup is obtained reviewed he will be reevaluated. Echocardiogram from 12/22/2023 was reviewed and showed ejection fraction of 65% and they were unable to assess diastolic function. Patient CBC reviewed and showed a white blood count of 8.3, hemoglobin is 15.4, plate count of 253. Patient sodium was normal at 139, potassium normal 3.9, creatinine was 0.73. Patient's proBNP was 184. Patient chest x-ray reviewed bymyself and by radiology which showed cardiomegaly with vascular congestion pulmonary edema. Patient lumbar spine reviewed by myself by radiology showed noacute fracture or subluxation multilevel degenerative changes. Patient's x-ray of his feet bilaterally showed calcaneal spurs no acute abnormalities marked generalized bilateral lower extremity soft tissue edema. This was reviewed by myself and by radiology as well. Patient was ambulated here in the emergency department and with minimal exertionhe dropped to 86%. Patient was given IV Lasix 40 mg. Will discuss case with hospitalist for admission. Discussed case with hospitalist Dr. Toledo who will accept patient for admission. Updated the patient he was agreeable to plan all question concerns answered at bedside. Lab Data Labs: Laboratory Results - last 24 hr 11/09/24 22:28 WBC 8.3 RBC 5.37 Hgb 15.4 Hct 47.9 MCV 89.2 MCH 28.7 MCHC 32.2 RDW Std Deviation 46.8 H RDW Coeff of Pradeep 14.5 Plt Count 253 MPV 9.6 Immature Gran % (Auto) 0.200 Neut % (Auto) 66.1 Lymph % (Auto) 22.6 [place] % (Auto) 8.4 Eos % (Auto) 2.2 Baso % (Auto) 0.5 Absolute Neuts (auto) 5.5 Absolute Lymphs (auto) 1.88 Nucleated RBC % 0 Sodium 139 Potassium 3.9 Chloride 101 Carbon Dioxide 26.8 Anion Gap 11 BUN 11 Creatinine 0.73 Estim Creat Clear Calc 232.29 Est GFR (MDRD) Non-Af 109 BUN/Creatinine Ratio 14.3 Glucose 93 Calcium 9.0 NT pro BNP II 184 Radiography Diagnostic Testing: Clinical Impression(s) from Imaging Studies Chest X-Ray 11/09/24 22:18 IMPRESSION: Cardiomegaly with vascular congestion and pulmonary edema. Reading Location: [facility] Lumbar Spine X-Ray 11/09/24 22:18 IMPRESSION: No evidence of acute fracture or subluxation. Multilevel degenerative changes. Reading Location: [facility] Foot X-Ray 11/09/24 22:23 IMPRESSION: 1. Bilateral calcaneal spurs. No acute abnormality. 2. Marked generalized bilateral lower extremity soft tissue edema. Reading Location: [facility] Foot X-Ray 11/09/24 22:45 IMPRESSION: 1. Bilateral calcaneal spurs. No acute abnormality. 2. Marked generalized bilateral lower extremity soft tissue edema. Reading Location: [facility] Discharge Plan Triage Chief Complaint: Edema Other Complaint: Lower Extremity Injury ED Provider: Brennon Steiner Dx/Rx/DC Orders Clinical Impression: Acute hypoxic respiratory failure, SINA (obstructive sleep apnea), CHF (congestive heart failure), Bilateral leg edema, Dyspnea on exertion, Back pain,Heel pain, bilateral Prescriptions: No Action nicotine 14 mg/24 hr Patch 24 Hour 14 mg transdermal DAILY 28 Days Qty: 28 0RF lisinopril 20 mg Tablet 20 mg PO DAILY 30 Days Qty: 30 0RF chlorthalidone 50 mg Tablet 12.5 mg PO DAILY 30 Days Qty: 8 0RF dextromethorphan-guaifenesin [Mucinex DM] 60-1,200 mg tablet extended release 12 hr 1 tab PO Q12H 7 Days Qty: 14 0RF losartan-hydrochlorothiazide 50-12.5 mg tablet 1 tab PO DAILY albuterol sulfate 90 mcg/actuation aerosol powdr breath activated 1 inh inhalation Q6H PRN (Reason: shortness of breath) Primary Care Provider: Juliana Cox Referrals: Care Physician,No Primary [Non-Staff] - Print Language: Syrian Disposition Disposition: Acute Care Hospital [facility] What to do if you have Problems For any increased pain, shortness of breath, bleeding, nausea or vomiting, chestpain, or any unexpected problems, contact your Primary Care Provider. Call [facility] ([phone]) or report to the closest Emergency Room. Call 911 if necessary. 11/10/248 <Electronically signed by Brennon Steiner DO> Cosigner Signature (if applicable): CC: Dr. Juliana Cox DO ~ Signed [facility] Work Phone: 1(103) 564-148407-12-2025 History and physical note [facility] Medical Records Department [address] [place] [address] H&P Exam - Hospitalist 11/10/24 0006 MR#: [id number] Acct: [id number] Name: AZALIA MATTHEW II Rep #:[id number] : 1970 53 From: Efraín weinberg DO PCP: Dr. Juliana Cox DO Status:ADM IN Location: [place] [address] HPI - General General Date of Admission: 11/10/24 Date of Service: 11/10/24 Chief Complaint: Worsening shortness of breath and lower extremity swelling HPI Narrative AZALIA MATTHEW, is a 53 M who presented to [facility] ED on 11/10/2024 with worsening shortness of breath and lower extremity swelling. Medical history significant for super morbid obesitywith BMI 70, HFpEF, COPD, SINA, AntiBac obese. He was last hospitalized here in August for a COPD exacer bation. He presents today with progressive worsening shortness of breath and lower extremity swelling with heel pain. Notes that he recently became homeless. He was started on a medication apparentlyby his PCP for lower extremity swelling but it was not Lasix. In the ED he was mildly hypertensive to the 150s systolic. Oxygen saturation in the low 90s on room air at rest but dropped to the mid 80s with minimal exertion. Chest x-ray showed vascular congestion and pulmonary edema. Foot x-rays showed marked generalized bilaterallower extremity soft tissue edema with bilateral calcaneal spurs. CBC and BMP were fairly benign. NT proBNP normal at 168 though this is underestimated with obesity. Given CHF exacerbation with hypoxia, hospitalist was contacted for admission. I saw the patient at bedside in the ED. Patient was laying back in bed, conversing normally, in no acute distress. Denies any shortness of breath at rest. Denies any chest pain. Has chronic back pain that his writing him currently. Otherwise denies any other acute concerns. Will be admitted for further management. [facility] Medical History Tracheal stenosis Obesity hypoventilation syndrome SINA (obstructive sleep apnea) Tobacco abuse COPD (chronic obstructive pulmonary disease) History of cellulitis Morbid obesity Home Medications ?Medication ?Instructions ?Recorded ?Last Taken ?Type chlorthalidone 50 mg tablet 12.5 mg (/ x 50 mg) PO D AILY 30 09/08/24 Unknown Rx days #8 tabs dextromethorphan-guaifenesin ER 60 1 tab PO Q12H 7 day s #14 tabs 09/08/24 Unknown Rx mg-1,200 mg tab,extend release,12hr (Mucinex DM) lisinopril 20 mg tablet 20 mg PO DAILY 30 days #30 t abs 09/08/24 Unknown Rx nicotine 14 mg/24 hr daily 14 mg transdermal DAILY 4 w eeks 09/08/24 Unknown Rx transdermal patch #28 ea albuterol sulfate 90 mcg/actuation 1 inh inhalation Q6 H PRN shortness 11/09/24 Unknown History breath activated powder inhaler of breath losartan 50 mg-hydrochlorothiazide 1 tab PO DAILY 10/30 05/26 Unknown History 12.5 mg tablet Allergy/AdvReac Type Severity Reaction Status Date / Time No Known Allergies Allergy Verified 11/09/24 22:03 Family History Mother Cancer Father Cancer Surgical History History of cholecystectomy History of appendectomy Social History household members: friend(s) 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 Smoking Status: Current every day smoker tobacco type: cigarettes Tobacco: How many years used: 36 alcohol intake: never substance use type: does not use ROS Constitutional Constitutional: Reports fatigue; Denies chills, fever(s) or weakness Eyes Eyes: Denies change in vision Cardiovascular Cardiovascular: Reports dyspnea on exertion and edema; Denies chest pain, lightheadedness, orthopnea or palpitations Respiratory/Chest Respiratory/Chest: Reports shortness of breath with exertion; Denies cough, shortness of breath at rest or wheezing Gastrointestinal Gastrointestinal: Denies abdominal pain Musculoskeletal Musculoskeletal: Denies arthralgias or myalgias Vital Signs Vital Signs Vital Signs: 11/09/24 22:00 11/09/24 22:29 11/09/24 23:59 Temperature 97.9 F Temperature Source Oral Pulse Rate 82 67 Respiratory Rate 18 21 H Blood Pressure 131/79 H 154/81 H Blood Pressure Mean 96 105 Pulse Ox 91 95 92 Oxygen Delivery Method Room Air Room Air Room Air 11/10/24 00:04 Temperature 98.1 F Temperature Source Pulse Rate 69 Respiratory Rate 18 Blood Pressure 154/81 H Blood Pressure Mean 105 Pulse Ox 92 Oxygen Delivery Method Weight Weight: 233.9 kg Body Mass Index (BMI) 71.8 Physical Exam Const alert, oriented x3 and no apparent distress Constitutional Narrative: Middle-age male, super morbid obesity, otherwise laying back comfortably in bed,conversing normally, in no acute distress. General Appearance: cooperative and comfortable HEENT normocephalic, head/scalp atraumatic, hearing grossly normal bilaterally, nasal mucous membranes and turbinates normal and moist oral mucous membranes Eyes PERRL, EOMs intact bilaterally and conjunctivae normal Neck full ROM Chest inspection of chest normal Resp normal respiratory effort and no use of accessory muscles Resp Narrative: Breathing comfortably on room air at rest. Diminished breath sounds throughout with crackles noted in mid lung zones bilaterally. No wheezing noted. Cardio regular rate, regular rhythm, no murmurs and peripheral pulses 2+ throughout GI normal to inspection, nondistended, normoactive bowel sounds, soft to palpation,non-tender and non-distended Back/Spine normal ROM Extremity Extremity Narrative: +3-4 lower extremity edema with erythema and chronic venous stasis changes noted. Psych mental status grossly normal Results Lab / Micro Data 11/09/24 22:28 11/09/24 22:28 Labs: Laboratory Results - last 24 hr 11/09/24 22:28: WBC 8.3, RBC 5.37, Hgb 15.4, Hct 47.9, MCV 89.2, MCH 28.7, MCHC 32.2, RDW Std Deviation 46.8 H, RDW Coeff of Pradeep 14.5, Plt Count 253, MPV 9.6, Immature Gran % (Auto) 0.200, Neut % (Auto) 66.1, Lymph % (Auto) 22.6, [place] % (Auto) 8.4, Eos % (Auto) 2.2, Baso % (Auto) 0.5, Absolute Neuts (auto) 5.5, Absolute Lymphs (auto) 1.88, Nucleated RBC % 0, Sodium 139, Potassium 3.9, Chloride 101, Carbon Dioxide 26.8, Anion Gap 11, BUN 11, Creatinine 0.73, Estim Creat Clear Calc 232.29, Est GFR (MDRD) Non-Af 109, BUN/Creatinine Ratio 14.3, Glucose 93, Calcium 9.0, NT pro BNP II 184 Imaging Radiology Impression Chest X-Ray 11/09/24 22:18 IMPRESSION: Cardiomegaly with vascular congestion and pulmonary edema. Reading Location: [facility] Lumbar Spine X-Ray 11/09/24 22:18 IMPRESSION: No evidence of acute fracture or subluxation. Multilevel degenerative changes. Reading Location: [facility] Foot X-Ray 11/09/24 22:23 IMPRESSION: 1. Bilateral calcaneal spurs. No acute abnormality. 2. Marked generalized bilateral lower extremity soft tissue edema. Reading Location: [facility] Foot X-Ray 11/09/24 22:45 IMPRESSION: 1. Bilateral calcaneal spurs. No acute abnormality. 2. Marked generalized bilateral lower extremity soft tissue edema. Reading Location: [facility] Assessment & Plan Assessment/Plan (1) Acute on chronic heart failure with preserved ejection fraction (HFpEF): (2) Bilateral leg edema: PLAN: Plan Patient is a 53-year-old male who presented to [facility] ED on 11/10/2024 with worsening shortness of breath and lower extremity swelling. 1. Acute on chronic HFpEF with hypoxia with exertion, lower extremity swelling with chronic venous stasis changes ? Admit under inpatient status to PCU. Chest x-ray with cardiomegaly with vascular congestion pulmonary edema. Foot x-rays with marked bilateral lower extremity swelling. BNP normal but underestimated with obesity. Hypoxic to 86%on exertion in the ED. Last echo in 12/2023 showed EF 65%, with otherwise technically difficult due to body habitus. Will treat with IV Lasix 40 mg every8 hours for now. Monitor daily BMP and urine output. 2. Acute on chronic debility with homelessness, history of chronic back pain ? PT/OT/case management consulted. Patient reports recently becoming homeless, unclear where he is living right now. Debility is primarily due to obesity, chronic back pain, severe lower extremity swelling and bilateral heel pain from calcaneal spurs. Appreciate therapy and case management recommendations. Chronic medical conditions: ? Class III obesity with SINA: BMI 71 on admit. Complicates hospital course, care and prognosis. Continue PAP therapy at night. ? Hypertension: Continue home losartan?hydrochlorothiazide. ? COPD: No wheezing on exam, not in acute exacerbation. Continue home albuterolinhaler as needed. ? Tobacco abuse: Denied need for nicotine replacement therapy on admission. Discussed cessation on discharge. DVT prophylaxis: Lovenox twice daily CODE STATUS: Full code, verified Expected disposition: TBD Total clinical time spent by myself addressing the patient's medical issues, reviewing all the data, and collaborating with patient's care team: 75 minutes. Charges/Coding Visit Charges Inpatient E&M: 87362 Init Hosp L3 11/10/24 0042 Cosigner Signature (if applicable): CC: Dr. Efraín Toledo DO; Dr. Juliana Cox DO~ Signed [facility]07-12-2025 Discharge summary [facility] Medical Records Department [address] [place] [id number] Emergency Department Summary 11/09/24 MR#: [id number] Acct: [id number] Name: AZALIA MATTHEW II Rep #:[id number] : 1970 53 From: Brennon Steiner DO PCP: Dr. Jluiana Cox DO Status:REG ER Location: ED ADDENDUM by Dr. Brennon Steiner DO on 11/10/24 at 0027 Patient's EKG reviewed showed sinus rhythm with a rate of 73 beats per minutes. 11/10/24 0027 Cosigner Signature (if applicable): cc: Dr. Juliana Cox, ~* Signed HPI History of Present Illness Chief Complaint: Edema Narrative Narrative: Patient is a 53-year-old male with past medical history of COPD, BMI of 71, SINA who presented to the emergency department with chief complaint of low back pain,bilateral heel pain, swelling in his lower extremities with shortness of breath. Patient states that he recently became homeless he states and notes that he wasrecently started on a medication by his doctor for the swelling in his lower extremities he states that this is not Lasix. Patient states that has had significant worsening shortness of breath on exertion as well. Patient states that he cannot put pressure on his heels bilaterally as this is significantly painful for him he notes that this started today. Patient states that hefell about a week to week and a half ago after picking up a generator and he landed on his back. Hestates he did not pass out did not lose consciousness denies any blood thinning medications. He states that the other day he fell as well and landed on the left side in the doorway. Once again he states he did not hithis head not pass out. [facility] Medical History Tracheal stenosis Obesity hypoventilation syndrome SINA (obstructive sleep apnea) Tobacco abuse COPD (chronic obstructive pulmonary disease) History of cellulitis Morbid obesity Home Medications ?Medication ?Instructions ?Recorded ?Last Taken ?Type chlorthalidone 50 mg tablet 12.5 mg (1/4 x 50 mg) PO D AILY 30 09/08/24 Unknown Rx days #8 tabs dextromethorphan-guaifenesin ER 60 1 tab PO Q12H 7 day s #14 tabs 09/08/24 Unknown Rx mg-1,200 mg tab,extend release,12hr (Mucinex DM) lisinopril 20 mg tablet 20 mg PO DAILY 30 days #30 t abs 09/08/24 Unknown Rx nicotine 14 mg/24 hr daily 14 mg transdermal DAILY 4 w eeks 09/08/24 Unknown Rx transdermal patch #28 ea albuterol sulfate 90 mcg/actuation 1 inh inhalation Q6 H PRN shortness 11/09/24 Unknown History breath activated powder inhaler of breath losartan 50 mg-hydrochlorothiazide 1 tab PO DAILY 10/30 05/26 Unknown History 12.5 mg tablet Allergy/AdvReac Type Severity Reaction Status Date / Time No Known Allergies Allergy Verified 11/09/24 22:03 Family History Mother Cancer Father Cancer Surgical History History of cholecystectomy History of appendectomy Social History household members: friend(s) 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 Smoking Status: Current every day smoker tobacco type: cigarettes Tobacco: How many years used: 36 alcohol intake: never substance use type: does not use ROS ROS ED ROS Narrative Constitutional: Denies any fevers, chills, headaches Eyes: Denies change in vision double vision blurry vision Cardiovascular: Denies chest pain Respiratory: Complains shortness of breath as noted above denies coughing Abdomen: Denies abdominal pain nausea vomit diarrhea : Denies urinary symptoms Neurological: Denies any numbness, wheeze, tingling Musculoskeletal: Complains of low back pain, heel pain as noted above Skin: Denies any new rashes or lesions EXAM Physical Exam Narrative Exam Narrative: General: Patient lying in bed rest comfortably did not appear to be in acute distress Head: Atraumatic, normocephalic Eyes: PERRL bilaterally, EOMI blood, no conjunctival injection noted Neck: Soft, supple, trachea midline Cardiovascular: Regular rate and rhythm no murmurs gallops rubs noted Respiratory: Clear to auscultation bilaterally Abdomen: No tenderness palpation Musculoskeletal: Patient has tenderness palpation over the heels bilaterally Extremities: +4/5 strength noted in the bilateral upper and lower extremities, Neurological: Patient functions knew that he was at [facility] year is 2024 Skin: Patient has chronic skin changes noted to the bilateral lower extremities no concern for infection at this point time Const Vital Signs: 11/09/24 22:00 11/09/24 22:29 Temperature 97.9 F Temperature Source Oral Pulse Rate 82 Respiratory Rate 18 Blood Pressure 131/79 H Blood Pressure Mean 96 Pulse Ox 91 95 Oxygen Delivery Method Room Air Room Air MDM MDM MDM Narrative Medical decision making narrative: Patient is a 53-year-old male who presented to the emergency department with a chief complaint of low back pain, bilateral heel pain, dyspnea on exertion. On the differential diagnose includes Melamin to compression fracture, plantar fasciitis, CHF. Once workup is obtained reviewed he will be reevaluated. Echocardiogram from 12/22/2023 was reviewed and showed ejection fraction of 65% and they were unableto assess diastolic function. Patient CBC reviewed and showed a white blood count of 8.3, hemoglobin is 15.4, plate count of 253.Patient sodium was normal at 139, potassium normal 3.9, creatinine was 0.73. Patient's proBNP was 184. Patient chest x-ray reviewed bymyself and by radiology which showed cardiomegaly with vascular congestion pulmonary edema. Patient lumbar spine reviewed by myself by radiology showed noacute fracture or subluxation multilevel degenerative changes. Patient's x-ray of his feet bilaterally showed calcaneal spurs no acute abnormalities marked generalized bilateral lower extremity soft tissue edema. This was reviewed by myself and by radiology as well. Patient was ambulated here in the emergency department and with minimal exertionhe dropped to 86%. Patient was given IV Lasix 40 mg. Will discuss case with hospitalist for admission. Discussed case with hospitalist Dr. Toledo who will accept patient for admission. Updated the patient he was agreeable to plan all question concerns answered at bedside. Lab Data Labs: Laboratory Results - last 24 hr 11/09/24 22:28 WBC 8.3 RBC 5.37 Hgb 15.4 Hct 47.9 MCV 89.2 MCH 28.7 MCHC 32.2 RDW Std Deviation 46.8 H RDW Coeff of Pradeep 14.5 Plt Count 253 MPV 9.6 Immature Gran % (Auto) 0.200 Neut % (Auto) 66.1 Lymph % (Auto) 22.6 [place] % (Auto) 8.4 Eos % (Auto) 2.2 Baso % (Auto) 0.5 Absolute Neuts (auto) 5.5 Absolute Lymphs (auto) 1.88 Nucleated RBC % 0 Sodium 139 Potassium 3.9 Chloride 101 Carbon Dioxide 26.8 Anion Gap 11 BUN 11 Creatinine 0.73 Estim Creat Clear Calc 232.29 Est GFR (MDRD) Non-Af 109 BUN/Creatinine Ratio 14.3 Glucose 93 Calcium 9.0 NT pro BNP II 184 Radiography Diagnostic Testing: Clinical Impression(s) from Imaging Studies Chest X-Ray 11/09/24 22:18 IMPRESSION: Cardiomegaly with vascular congestion and pulmonary edema. Reading Location: [facility] Lumbar Spine X-Ray 11/09/24 22:18 IMPRESSION: No evidence of acute fracture or subluxation. Multilevel degenerative changes. Reading Location: [facility] Foot X-Ray 11/09/24 22:23 IMPRESSION: 1. Bilateral calcaneal spurs. No acute abnormality. 2. Marked generalized bilateral lower extremity soft tissue edema. Reading Location: [facility] Foot X-Ray 11/09/24 22:45 IMPRESSION: 1. Bilateral calcaneal spurs. No acute abnormality. 2. Marked generalized bilateral lower extremity soft tissue edema. Reading Location: [facility] Discharge Plan Triage Chief Complaint: Edema Other Complaint: Lower Extremity Injury ED Provider: Brennon Steiner Dx/Rx/DC Orders Clinical Impression: Acute hypoxic respiratory failure, SINA (obstructive sleep apnea), CHF (congestive heart failure), Bilateral leg edema, Dyspnea on exertion, Back pain,Heel pain, bilateral Prescriptions: No Action nicotine 14 mg/24 hr Patch 24 Hour 14 mg transdermal DAILY 28 Days Qty: 28 0RF lisinopril 20 mg Tablet 20 mg PO DAILY 30 Days Qty: 30 0RF chlorthalidone 50 mg Tablet 12.5 mg PO DAILY 30 Days Qty: 8 0RF dextromethorphan-guaifenesin [Mucinex DM] 60-1,200 mg tablet extended release 12 hr 1 tab PO Q12H 7 Days Qty: 14 0RF losartan-hydrochlorothiazide 50-12.5 mg tablet 1 tab PO DAILY albuterol sulfate 90 mcg/actuation aerosol powdr breath activated 1 inh inhalation Q6H PRN (Reason: shortness of breath) Primary Care Provider: Juliana Cox Referrals: Care Physician,No Primary [Non-Staff] - Print Language: Syrian Disposition Disposition: Acute Care Hospital [facility] What to do if you have Problems For any increased pain, shortness of breath, bleeding, nausea or vomiting, chestpain, or any unexpected problems, contact your Primary Care Provider. Call [facility] ([phone]) or report tothe closest Emergency Room. Call 911 if necessary. 11/10/24 000 Cosigner Signature (if applicable): CC: Dr. Juliana Cox, ~ Signed [facility]07-11-2025 Radiology Diagnostic study note [facility] Imaging Services [address] [place] [id number] Foot min 3 Views MR#: [id number] Acct: [id number] Name: AZALIA MATTHEW II Rep #: [id number] : 1970 M 53 From: Dejon Gonzalez MD PCP: Dr. Juliana Cox DO Status: REG ER Study:Foot min 3 Views Date of Exam: 03/26 Exam# [id number] Ordering Dr: Harshil Steiner DO PROCEDURE: FOOT MIN 3 VIEWS 11/09/2024 REASON FOR EXAM: HEEL PAIN TECHNIQUE: Frontal lateral oblique radiographs of bilateral feet. COMPARISON: None. FINDINGS: No acute fracture or dislocation. Bilaterally, joint spaces are preserved. Alignment is anatomic onthese nonweightbearing radiographs. No osseous erosion or destruction. Bilateral plantar calcaneal spurs, slightly larger on the right. Marked diffuse lower extremity soft tissue swelling/edema. RAD/Foot min 3 Views IMPRESSION: 1. Bilateral calcaneal spurs. No acute abnormality. 2. Marked generalized bilateral lower extremity soft tissue edema. Reading Location: [facility] CC: Dr. Juliana Cox DO; Dr. Brennon Steiner DO ~ [employer] Roving Winder: Signed [facility]07-11-2025 Radiology Diagnostic study note [facility] Imaging Services [address] [place], [place] [address] Foot min 3 Views MR#: [id number] Acct: [id number] Name: AZALIA MATTHEW II Rep #: [id number] : 1970 M 53 From: Dejon Gonzalez MD PCP: Dr. Juliana Cox DO Status: REG ER Study:Foot min 3 Views Date of Exam: 03/26 Exam# [id number] Ordering Dr: Harshil Steiner DO PROCEDURE: FOOT MIN 3 VIEWS 11/09/2024 REASON FOR EXAM: HEEL PAIN TECHNIQUE: Frontal lateral oblique radiographs of bilateral feet. COMPARISON: None. FINDINGS: No acute fracture or dislocation. Bilaterally, joint spaces are preserved. Alignment is anatomic onthese nonweightbearing radiographs. No osseous erosion or destruction. Bilateral plantar calcaneal spurs, slightly larger on the right. Marked diffuse lower extremity soft tissue swelling/edema. RAD/Foot min 3 Views IMPRESSION: 1. Bilateral calcaneal spurs. No acute abnormality. 2. Marked generalized bilateral lower extremity soft tissue edema. Reading Location: [facility] CC: Dr. Juliana Cox DO; Dr. Brennon Steiner DO ~ [employer] Roving Winder: Signed [facility]07-11-2025 Radiology Diagnostic study note [facility] Imaging Services [address] [place], [place] [id number] Chest 1 View (Portable) MR#: [id number] Acct: [id number] Name: AZALIA MATTHEW II Rep #: [id number] : 1970 M 53 From: Dejon Gonzalez MD PCP: Dr. Juliana Cox DO Status: REG ER Study:Chest 1 View (Portable) Date of Exam: 11/09/24 Exam# [id number] Ordering Dr: Harshil Steiner DO PROCEDURE: CHEST 1 VIEW (PORTABLE) 11/09/2024 REASON FOR EXAM: SOB TECHNIQUE: Frontal view of the chest. COMPARISON: 09/06/2024 FINDINGS: Lungs/Pleura: There is pulmonary vascular congestion, perihilar and interstitialpulmonary edema. [place]ge pleural effusions. No pneumothorax. Heart/Mediastinum: Cardiomegaly. Bones/Soft tissues: No significant abnormality. RAD/Chest 1 View (Portable) IMPRESSION: Cardiomegaly with vascular congestion and pulmonary edema. Reading Location: [facility] CC: Dr. Juliana Cox DO; Dr. Brennon Steiner DO ~ [employer] Roving Winder: Signed [facility]07-11-2025 Radiology Diagnostic study note [facility] Imaging Services [address] [place] [address] L/S Spine Min 4 Views MR#: [id number] Acct: [id number] Name: AZALIA MATTHEW II Rep #: [id number] : 1970 M 53 From: Dejon Gonzalez MD PCP: Dr. Juliana Cox DO Status: REG ER Study:L/S Spine Min 4 Views Date of Exam: 11/09/24 Exam# [id number] Ordering Dr: Harshil Steiner DO PROCEDURE: L/S SPINE MIN 4 VIEWS 11/09/2024 REASON FOR EXAM: LOW BACK PAIN, FALL WEEK AGO WORSENING PAIN TECHNIQUE: L/S SPINE MIN 4 VIEWS COMPARISON: None. FINDINGS: No evidence of acute fracture or subluxation. Multilevel spondylotic changes with varying degrees of disc space narrowing with vacuum disc phenomena, endplate sclerosis and anterior osteophytosis, and hypertrophic facet arthropathy. Normal symmetric appearance of the sacroiliac joints. Normal bone mineralization. Unremarkable soft tissues. Cholecystectomy surgical clips. RAD/L/S Spine Min 4 Views IMPRESSION: No evidence of acute fracture or subluxation. Multilevel degenerative changes. Reading Location: [facility] CC: Dr. Juliana Cox DO; Dr. Brennon Steiner DO ~ [employer] Roving Winder: Signed [facility]07-11-2025 Discharge summary Author Brennon Steiner [facility] Note Date/Time November 10, 2024 12:2 7am [facility] Medical Records Department [address] [place] [address] Emergency Department Summary 11/09/24 MR#: [id number] Acct: [id number] Name: AZALIA MATTHEW II Rep #:[id number] : 1970 53 From: Brennon Steiner DO PCP: Dr. Juliana Cox DO Status:REG ER Location: ED ADDENDUM by Dr. Brennon Steiner DO on 11/10/24 at 0027 Patient's EKG reviewed showed sinus rhythm with a rate of 73 beats per minutes. 11/10/24 0027<Electronically signed by Brennon Steiner DO> Cosigner Signature (if applicable): cc: Dr. Juliana Cox DO ~* Signed HPI History of Present Illness Chief Complaint: Edema Narrative Narrative: Patient is a 53-year-old male with past medical history of COPD, BMI of 71, SINA who presented to the emergency department with chief complaint of low back pain,bilateral heel pain, swelling in his lower extremities with shortness of breath. Patient states that he recently became homeless he states and notes that he wasrecently started on a medication by his doctor for the swelling in his lower extremities he states that this is not Lasix. Patient states that has had significant worsening shortness of breath on exertion as well. Patient states that he cannot put pressure on his heels bilaterally as this is significantly painful for him he notes that this started today. Patient states that he fell about a week to week and a half ago after picking up a generator and he landed on his back. He states he did not pass out did not lose consciousness denies any blood thinning medications. He states that the other day he fell as well and landed on the left side in the doorway. Once again he states he did not hithis head not pass out. [facility] Medical History Tracheal stenosis Obesity hypoventilation syndrome SINA (obstructive sleep apnea) Tobacco abuse COPD (chronic obstructive pulmonary disease) History of cellulitis Morbid obesity Home Medications ?Medication ?Instructions ?Recorded ?Last Taken ?Type chlorthalidone 50 mg tablet 12.5 mg (1/4 x 50 mg) PO D AILY 30 09/08/24 Unknown Rx days #8 tabs dextromethorphan-guaifenesin ER 60 1 tab PO Q12H 7 day s #14 tabs 09/08/24 Unknown Rx mg-1,200 mg tab,extend release,12hr (Mucinex DM) lisinopril 20 mg tablet 20 mg PO DAILY 30 days #30 t abs 09/08/24 Unknown Rx nicotine 14 mg/24 hr daily 14 mg transdermal DAILY 4 w eeks 09/08/24 Unknown Rx transdermal patch #28 ea albuterol sulfate 90 mcg/actuation 1 inh inhalation Q6 H PRN shortness 11/09/24 Unknown History breath activated powder inhaler of breath losartan 50 mg-hydrochlorothiazide 1 tab PO DAILY 10/30 05/26 Unknown History 12.5 mg tablet Allergy/AdvReac Type Severity Reaction Status Date / Time No Known Allergies Allergy Verified 11/09/24 22:03 Family History Mother Cancer Father Cancer Surgical History History of cholecystectomy History of appendectomy Social History household members: friend(s) 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 Smoking Status: Current every day smoker tobacco type: cigarettes Tobacco: How many years used: 36 alcohol intake: never substance use type: does not use ROS ROS ED ROS Narrative Constitutional: Denies any fevers, chills, headaches Eyes: Denies change in vision double vision blurry vision Cardiovascular: Denies chest pain Respiratory: Complains shortness of breath as noted above denies coughing Abdomen: Denies abdominal pain nausea vomit diarrhea : Denies urinary symptoms Neurological: Denies any numbness, wheeze, tingling Musculoskeletal: Complains of low back pain, heel pain as noted above Skin: Denies any new rashes or lesions EXAM Physical Exam Narrative Exam Narrative: General: Patient lying in bed rest comfortably did not appear to be in acute distress Head: Atraumatic, normocephalic Eyes: PERRL bilaterally, EOMI blood, no conjunctival injection noted Neck: Soft, supple, trachea midline Cardiovascular: Regular rate and rhythm no murmurs gallops rubs noted Respiratory: Clear to auscultation bilaterally Abdomen: No tenderness palpation Musculoskeletal: Patient has tenderness palpation over the heels bilaterally Extremities: +4/5 strength noted in the bilateral upper and lower extremities, Neurological: Patient functions knew that he was at [facility] year is 2024 Skin: Patient has chronic skin changes noted to the bilateral lower extremities no concern for infection at this point time Const Vital Signs: 11/09/24 22:00 11/09/24 22:29 Temperature 97.9 F Temperature Source Oral Pulse Rate 82 Respiratory Rate 18 Blood Pressure 131/79 H Blood Pressure Mean 96 Pulse Ox 91 95 Oxygen Delivery Method Room Air Room Air MDM MDM MDM Narrative Medical decision making narrative: Patient is a 53-year-old male who presented to the emergency department with a chief complaint of low back pain, bilateral heel pain, dyspnea on exertion. On the differential diagnose includes Melamin to compression fracture, plantar fasciitis, CHF. Once workup is obtained reviewed he will be reevaluated. Echocardiogram from 12/22/2023 was reviewed and showed ejection fraction of 65% and they were unable to assess diastolic function. Patient CBC reviewed and showed a white blood count of 8.3, hemoglobin is 15.4, plate count of 253. Patient sodium was normal at 139, potassium normal 3.9, creatinine was 0.73. Patient's proBNP was 184. Patient chest x-ray reviewed bymyself and by radiology which showed cardiomegaly with vascular congestion pulmonary edema. Patient lumbar spine reviewed by myself by radiology showed noacute fracture or subluxation multilevel degenerative changes. Patient's x-ray of his feet bilaterally showed calcaneal spurs no acute abnormalities marked generalized bilateral lower extremity soft tissue edema. This was reviewed by myself and by radiology as well. Patient was ambulated here in the emergency department and with minimal exertionhe dropped to 86%. Patient was given IV Lasix 40 mg. Will discuss case with hospitalist for admission. Discussed case with hospitalist Dr. Toledo who will accept patient for admission. Updated the patient he was agreeable to plan all question concerns answered at bedside. Lab Data Labs: Laboratory Results - last 24 hr 11/09/24 22:28 WBC 8.3 RBC 5.37 Hgb 15.4 Hct 47.9 MCV 89.2 MCH 28.7 MCHC 32.2 RDW Std Deviation 46.8 H RDW Coeff of Pradeep 14.5 Plt Count 253 MPV 9.6 Immature Gran % (Auto) 0.200 Neut % (Auto) 66.1 Lymph % (Auto) 22.6 [place] % (Auto) 8.4 Eos % (Auto) 2.2 Baso % (Auto) 0.5 Absolute Neuts (auto) 5.5 Absolute Lymphs (auto) 1.88 Nucleated RBC % 0 Sodium 139 Potassium 3.9 Chloride 101 Carbon Dioxide 26.8 Anion Gap 11 BUN 11 Creatinine 0.73 Estim Creat Clear Calc 232.29 Est GFR (MDRD) Non-Af 109 BUN/Creatinine Ratio 14.3 Glucose 93 Calcium 9.0 NT pro BNP II 184 Radiography Diagnostic Testing: Clinical Impression(s) from Imaging Studies Chest X-Ray 11/09/24 22:18 IMPRESSION: Cardiomegaly with vascular congestion and pulmonary edema. Reading Location: [facility] Lumbar Spine X-Ray 11/09/24 22:18 IMPRESSION: No evidence of acute fracture or subluxation. Multilevel degenerative changes. Reading Location: [facility] Foot X-Ray 11/09/24 22:23 IMPRESSION: 1. Bilateral calcaneal spurs. No acute abnormality. 2. Marked generalized bilateral lower extremity soft tissue edema. Reading Location: [facility] Foot X-Ray 11/09/24 22:45 IMPRESSION: 1. Bilateral calcaneal spurs. No acute abnormality. 2. Marked generalized bilateral lower extremity soft tissue edema. Reading Location: [facility] Discharge Plan Triage Chief Complaint: Edema Other Complaint: Lower Extremity Injury ED Provider: Brennon Steiner Dx/Rx/DC Orders Clinical Impression: Acute hypoxic respiratory failure, SINA (obstructive sleep apnea), CHF (congestive heart failure), Bilateral leg edema, Dyspnea on exertion, Back pain,Heel pain, bilateral Prescriptions: No Action nicotine 14 mg/24 hr Patch 24 Hour 14 mg transdermal DAILY 28 Days Qty: 28 0RF lisinopril 20 mg Tablet 20 mg PO DAILY 30 Days Qty: 30 0RF chlorthalidone 50 mg Tablet 12.5 mg PO DAILY 30 Days Qty: 8 0RF dextromethorphan-guaifenesin [Mucinex DM] 60-1,200 mg tablet extended release 12 hr 1 tab PO Q12H 7 Days Qty: 14 0RF losartan-hydrochlorothiazide 50-12.5 mg tablet 1 tab PO DAILY albuterol sulfate 90 mcg/actuation aerosol powdr breath activated 1 inh inhalation Q6H PRN (Reason: shortness of breath) Primary Care Provider: Juliana Cox Referrals: Care Physician,No Primary [Non-Staff] - Print Language: Syrian Disposition Disposition: Acute Care Hospital [facility] What to do if you have Problems For any increased pain, shortness of breath, bleeding, nausea or vomiting, chestpain, or any unexpected problems, contact your Primary Care Provider. Call [facility] ([phone]) or report to the closest Emergency Room. Call 911 if necessary. 11/10/248 <Electronically signed by Brennon Steiner DO> Cosigner Signature (if applicable): CC: Dr. Juliana Cox DO ~ Signed [facility] Work Phone: 1(882) 972-643805-10-2025 Discharge summary Author Francesco Montgomery [facility] Note Date/Time September 08, 2024 10:53 am [facility] Medical Records Department [address] [place] [address] Discharge Summary 09/08/24 1050 MR#: [id number] Acct: [id number] Name: TANYAAZALIA FRANK MARC Rep #:[id number] : 1970 53 From: Francesco Hawkins PCP: Care Physician,No Primary Status :ADM IN Location: [place] [address] Providers Date of Admission: 09/06/24 Date of [...] short and wide neck. Patient lives in [facility] Physical exam General: Alert, Oriented x3, Cooperative. [...] Provider: Care Physician,No Primary Consulting Providers: Isma Schneider Discharge Orders/Prescriptions Prescriptions: New nicotine 14 mg/24 [...] Self Care Charges/Coding Visit Charges Inpatient E&M: 91144 Disch Hosp >30min 09/08/24 1053 <Electronically signed by Francesco Montgomery MD> Cosigner Signature (if applicable): CC: Dr. Francesco Montgomery MD; No Primary Care Physician~ Signed [facility] Work Phone: 1([phone]) [phone] Discharge summary Author Francesco Montgomery [facility] Note Date/Time September 08, 2024 10:49 am [facility] Medical Records Department [address] [place] [address] Instructions for Home/Discharge Instructions 09/08/24 0941 MR#: [id number] Acct: [id number] Name: AZALIA MATTHEW II Rep #:[id number] : 1970 53 From: Francesco Hawkins PCP: Care Physician,No Primary Status :ADM IN Discharge Instructions [...] Provider: Care Physician,No Primary Consulting Providers: Isma Schneider Discharge Orders/Prescriptions Prescriptions: New nicotine 14 mg/24 [...] Home, Self Care 09/08/24 1049<Electronically signed by Francesoc Montgomery MD>Francesco Montgomery MD CC: Dr. Isma Schneider DO; No Primary Care Physician ~ Signed [facility] Work Phone: 1([phone]) 620-358605-10-2025 Discharge summary [facility] Medical Records Department [address] [place] [address] Discharge Summary 09/08/24 1050 MR#: [id number] Acct: [id number] Name: AZALIA MATTHEW II Rep #:[id number] : 1970 53 From: Francesco Hawkins PCP: Care Physician,No Primary Status :ADM [facility] Prov[facility] Date of Admission: 09/06/24 Date of [...] short and wide neck. Patient lives in [facility] [facility] Physical exam General: Alert, Oriented x3, Cooperative. [...] Provider: Care Physician,No Primary Consulting Providers: Isma Schneider Discharge Orders/Prescriptions Prescriptions: New nicotine 14 mg/24 [...] Self Care Charges/Coding Visit Charges Inpatient E&M: 49529 Disch Hosp >30min 09/08/24 1053 Cosigner Signature (if applicable): CC: Dr. Francesco Montgomery MD; No Primary Care Physician~ Signed [facility]05-10-2025 [facility]05-10-2025 Discharge summary [facility] Medical Records Department [address] [place] [address] Instructions for Home/Discharge Instructions 09/08/24 0941 MR#: [id number] Acct: [id number] Name: AZALIA MATTHEW II Rep #:[id number] : 1970 53 From: Francesco Hawkins PCP: Care Physician,No Primary Status :ADM IN Discharge Instructions [...] Provider: Care Physician,No Primary Consulting Providers: Isma Schneider Discharge Orders/Prescriptions Prescriptions: New nicotine 14 mg/24 [...] 09/08/24 1049Francesco Montgomery MD CC: Dr. Isma Schneider DO; No Primary Care Physician ~ Signed [facility]05-09-2025 Progress note Author Francesco Montgomery [facility] Note Date/Time September 07, 2024 4:10pm [facility] Medical Records Department [address] [place] [address] Progress Note - Hospitalist 09/07/24 1606 MR#: [id number] Acct: [id number] Name: AZALIA MATTHEW II Rep #:[id number] : 1970 53 From: Francesco Hawkins PCP: Care Physician,No Primary Status :ADM IN Location: [place] [address] Reason for Visit Reason for Visit: Diagnoses [...] 85.7 H, Lymph % (Auto) 10.7 L, [place] % (Auto) 3.0, Eos % (Auto) 0.0, [...] short and wide neck. Patient lives in [facility] [facility] Physical exam General: Alert, Oriented x3, Cooperative. [...] PO BID. Charges/Coding Visit Charges Inpatient E&M: 23030 Subs Hosp L2 09/07/24 1610 <Electronically signed by Francesco Montgomery MD> Cosigner Signature (if applicable): CC: ~ Signed [facility] Work Phone: 1([phone]) 554-234105-09-2025 Progress note [facility] Medical Records Department [address] [place] [address] Progress Note - Hospitalist 09/07/24 1606 MR#: [id number] Acct: [id number] Name: AZALIA MATTHEW II Rep #:[id number] : 1970 53 From: Francesco Hawkins PCP: Care Physician,No Primary Status :ADM IN Location: [place] [address] Reason for Visit Reason for Visit: Diagnoses [...] 85.7 H, Lymph % (Auto) 10.7 L, [place] % (Auto) 3.0, Eos % (Auto) 0.0, [...] short and wide neck. Patient lives in [place] [facility] Physical exam General: Alert, Oriented x3, Cooperative. [...] PO BID. Charges/Coding Visit Charges Inpatient E&M: 28638 Subs Hosp L2 09/07/24 1610 Cosigner Signature (if applicable): CC: ~ Signed [facility]05-08-2025 Progress note Author Francesco Montgomery [facility] Note Date/Time September 06, 2024 5:40pm [facility] Medical Records Department [address] [place] [address] Progress Note - Hospitalist 09/06/24 1005 MR#: [id number] Acct: [id number] Name: AZALIA MATTHEW TARI Rep #:[id number] : 1970 53 From: Francesco Hawkins PCP: Care Physician,No Primary Status :ADM IN Location: [place] [address] Hospitalist Note .-year-old gentleman with history of [...] 75.4 H, Lymph % (Auto) 15.8 L, [place] % (Auto) 6.6, Eos % (Auto) 1.4, [...] Clarity Clear, Urine pH 5.0, Ur Specific [place] 1.010, Urine Protein 30 H, Urine Glucose [...] Cosigner Signature (if applicable): CC: ~ Signed [facility] Work Phone: [phone]) 708-472305-08-2025 Progress note [facility] Medical Records Department [address] [place] [address] Progress Note - Hospitalist 09/06/24 1005 MR#: [id number] Acct: [id number] Name: AZALIA MATTHEW II Rep #:[id number] : 1970 53 From: Francesco Hawkins PCP: Care Physician,No Primary Status :ADM IN Location: [place] [address] Hospitalist Note .-year-old gentleman with history of [...] 75.4 H, Lymph % (Auto) 15.8 L, [place] % (Auto) 6.6, Eos % (Auto) 1.4, [...] Clarity Clear, Urine pH 5.0, Ur Specific [place] 1.010, Urine Protein 30 H, Urine Glucose (UA) Normal, Urine Ketones Negative, Urine Occult Blood 10 H, UrineNitrite Negative, Urine Bilirubin Negative, Urine Urobilinogen Normal, Ur Leukocyte Esterase Negative, Urine RBC 0-5 SEEN, Urine WBC 0-5 SEEN, Ur Squamous Epith Cells 0-5 SEEN, Urine Bacteria 0 SEEN,Urine Mucus 0 SEEN 09/06/24 1740 Cosigner Signature (if applicable): CC: ~ Signed [facility]05-08-2025 Radiology Diagnostic study note [facility] Imaging Services [address] [place], [place] [address] Thyroid MR#: [id number] Acct: [id number] Name: AZALIA MATTHEW II Rep #: [id number] : 1970 M 53 From: Hoa Munoz MD PCP: Care Physician,No Primary Status: ADM IN Study:Thyroid Date of Exam: 09/06/24 Exam# [id number] Ordering Dr: Isma Silva DO PROCEDURE: ULTRASOUND [...] time. Reading Location: [facility] CC: Dr. Isma Schneider DO; No Primary Care Physician ~ [employer] R[employer] Winder: Signed [facility]05-08-2025 History and physical note Author Isma Peterson [facility] Note Date/Time September 06, 2024 7:25am [facility] Medical Records Department [address] [place] [address] H&P Exam - Hospitalist 09/06/24 0409 MR#: [id number] Acct: [id number] Name: AZALIA MATTHEW II Rep #:[id number] : 1970 53 From: Isma Jauregui DO PCP: Care Physician,No Primary Status :ADM IN Location: [facility] [id number]- [id number] HPI - General General Date of [...] flaring at that time who re-presents to [facility] ER complaining of shortness of breath. Mr. [...] status expected to extend beyond 2 midnights. [facility] Medical History (Updated 09/06/24 @ 05:[address] 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 Reading Location: [facility] Imaging Services [address] [place] [address] CTA Chest W/WO Contrast MR#: [id number] Acct: [id number] Name: AZALIA MATTHEW II Rep #: [id number] : 1970 M 53 From: Jas Steve MD PCP: Care Physician,No Primary Status: ADM IN Study: CTA Chest W/WO Contrast Date of Exam: 09/06/24 Exam# [id number] Ordering Dr: Isma Schneider DO PROCEDURE: CTA CHEST W/WO CONTRAST 09/06/2024 [...] not excluded. No focal consolidation. Reading Location: [facility] CC: Dr. Isma de Nicholas, DO; No Primary Care Physician ~ [employer] Winder: Signed Assessment & Plan Assessment/Plan (1) Pneumonia: [...] guaifenesin twice daily. Give acetaminophen as neededfor esga-fa-szphihif (level 1-5/10) pain or fever. Give morphine [...] 75 minutes. Charges/Coding Visit Charges Inpatient E&M: 25352 Init Hosp L3 09/06/24 0725 <Electronically signed by Isma Schneider DO> Cosigner Signature (if applicable): CC: Dr. Isma Schneider, ; No Primary Care Physician~ Signed [facility] Work Phone: [phone]) 117-114505-08-2025 History and physical note [facility] Medical Records Department [address] [place] [address] H&P Exam - Hospitalist 09/06/24 0409 MR#: [id number] Acct: [id number] Name: AZALIA MATTHEW II Rep #:[id number] : 1970 53 From: Isma Jauregui DO PCP: Care Physician,No Primary Status :ADM IN Location: [place] [id number] HPI - General General Date of [...] flaring at that time who re-presents to [facility] ER complaining of shortness of breath. Mr. [...] on admission and he was then admitted tothe general medical floor for ongoing carefor status expected to extend beyond 2 midnights. [facility] Medical History (Updated 09/06/24 @ 05:[address] 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 Reading Location: [id number] Imaging Services [address] [facility] [facility] [place] [place] [id number] CTA Chest W/WO Contrast MR#: [id number] Acct: [id number] Name: AZALIA MATTHEW II Rep #: [id number] : 1970 M 53 From: Jas Steve MD PCP: Care Physician,No Primary Status: ADM IN Study: CTA Chest W/WO Contrast Date of Exam: 09/06/24 Exam# [id number] Ordering Dr: Isma Schneider DO PROCEDURE: CTA CHEST W/WO CONTRAST 09/06/2024 [...] not excluded. No focal consolidation. Reading Location: [id number] CC: Dr. Isma Schneider, DO; No Primary Care Physician ~ [employer] Winder: Signed Assessment & Plan Assessment/Plan (1) Pneumonia: [...] guaifenesin twice daily. Give acetaminophen as neededfor bugq-yl-ahistmht (level 1-5/10) pain or fever. Give morphine [...] 75 minutes. Charges/Coding Visit Charges Inpatient E&M: 80849 Init Hosp L3 09/06/24 0725 Cosigner Signature (if applicable): CC: Dr. Isma Schneider DO; No Primary Care Physician~ Signed [facility]05-08-2025 Evaluation note* Diagnosis Onset Date Resolution Status Admit Date Acute respiratory insufficiency acut e September 06, 2024 4:44am Elevated d-dimer acute September 06, 2024 4:44am Morbid obesity with BMI of 50.0-59.9, adult acute September 06, 2024 4 :44am SINA (obstructive sleep apnea) acute September 06, 2024 4:44am Pneumonia acute September 06, 2024 4:44am Tobacco abuse acute September 06 4:44am Acute exacerbation of chroni c obstructive pulmonary disease (COPD) resolved September 06, 2024 4: 44am Obesity hypoventilation syndrome jad ctive September 06, 2024 4:44am Tracheal stenosis inactive August 4:44am Acute hypoxic respiratory failure acute November 10, 2024 12:06am Acute on chronic heart failu re with preserved ejection fraction (HFpEF) acute November 10, 2024 12:06am Back pain acute November 10 12:06am Bilateral leg edema acute November 10, 2024 12:06am CHF (congestive heart failure) acute November 10, 2024 12:06am Dyspnea on exertion acute November 10, 2024 12:06am Heel pain, bilateral acute November 10, 2024 12:06am SINA (obstructive sleep apnea) acute November 10, 2024 12:06am [facility] Work Phone: 1(463) 256-308605-08-2025 Radiology Diagnostic study note [facility] Imaging Services [address] [place], [place] [address] CTA Chest W/WO Contrast MR#: [id number] Acct: [id number] Name: AZALIA MATTHEW II Rep #: [id number] : 1970 M 53 From: Sukh Steve MD PCP: Care Physician,No Primary Status: ADM IN Study:CTA Chest W/WO Contrast Date of Exam: 09/06/24 Exam# [id number] Ordering Dr: Isma Silva DO PROCEDURE: CTA [...] not excluded. No focal consolidation. Reading Location: [id number] CC: Dr. Isma Schneider, DO; No Primary Care Physician ~ [employer] Winder: Signed [facility]05-08-2025 Discharge summary Author Zachariah Lantigua [facility] Note Date/Time September 06, 2024 4:15am [facility] Medical Records Department [address] [place] [address] Emergency Department Summary 09/06/24 MR#: [id number] Acct: [id number] Name: AZALIA MATTHEW II Rep #:[id number] : 1970 53 From: Zachariah Lantigua [...] abdominal pain, palpitations, syncope, leg edema changes. 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 He is amenable to staying int hospital. Empiric antibiotics were started and I [...] 75.4 H Lymph % (Auto) 15.8 L [place] % (Auto) 6.6 Eos % (Auto) 1.4 [...] goiter or otherprocess, clinically correlate. Reading Location: [facility] Rhythm Strip Rhythm Strip: Sinus Rhythm [...] (COPD), Pneumonia Disposition Disposition: Acute Care Hospital [facility] What to do if you have Problems For any increased pain, shortness of breath, bleeding, nausea or vomiting, chestpain, or any unexpected problems, contact your Primary Care Provider. Call [facility] ([phone]) or report to the closest Emergency Room. Call 911 if necessary. 09/06/24414 <Electronically signed by Zachariah Lantigua MD> Cosigner Signature (if applicable): CC: No Primary Care Physician ~ Signed [facility] Work Phone: 1(177) 927-174205-08-2025 Discharge summary [facility] Medical Records Department [address] [place] [address] Emergency Department Summary 09/06/24 MR#: [id number] Acct: [id number] Name: AZALIA MATTHEW II Rep #:[id number] : 1970 53 From: Zachariah Lantigua [...] abdominal pain, palpitations, syncope, leg edema changes. 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 He is amenable to staying int hospital. Empiric antibiotics were started and I [...] 75.4 H Lymph % (Auto) 15.8 L [place] % (Auto) 6.6 Eos % (Auto) 1.4 [...] of goiter or otherprocess, clinicallycorrelate. Reading Location: [facility] Rhythm Strip Rhythm Strip: Sinus Rhythm Rate: 78 Ectopy: None EKG Initial EKG: Attestation: I personally reviewed and interpreted this EKG as follows: Interpretation: Sinus Rhythm and No Acute Injury Pattern Comments: Nml axis & intervals; nml EKG Management Discussion w/another healthcare provider: Hospitalist Discharge Plan Dx/Rx/DC Orders Clinical Impression: Hypoxemia, Acute exacerbation of chronic obstructive pulmonary disease (COPD), Pneumonia Disposition Disposition: [facility] What to do if you have Problems For any increased pain, shortness of breath, bleeding, nausea or vomiting, chestpain, or any unexpected problems, contact your Primary Care Provider. Call [facility] ([phone]) or report tothe closest Emergency Room. Call 911 if necessary. 09/06/245 Cosigner Signature (if applicable): CC: No Primary Care Physician ~ Signed [facility]05-08-2025 Radiology Diagnostic study note [facility] Imaging Services [address] [place] [address] Chest PA and Lateral MR#: [id number] Acct: [id number] Name: AZALIA MATTHEW II Rep #: [id number] : 1970 M 53 From: Sukh Steve MD PCP: Care Physician,No Primary Status: REG ER Study:Chest PA and Lateral Date of Exam: 09/06/24 Exam# [id number] Ordering Dr: Rosalio Lantigua MD PROCEDURE: CHEST [...] of goiter or otherprocess, clinicallycorrelate. Reading Location: [id number] CC: Dr. Zachariah Lantigua MD; No Primary Care Physician ~ Fiberglass Roving Winder: Signed [facility]02-13-2025 [facility]02-13-2025 Evaluation note* Diagnosis Onset Date Resolution Status [...] (COPD) chronic September 06, 2024 4: 44am [facility] Work Phone: 1(229) 720-982302-13-2025 Evaluation note* Diagnosis Onset Date Resolution Status [...] (COPD) chronic September 06, 2024 4: 44am [facility] Work Phone: 1(752) 512-815808-25-2024 [facility]07-27-2024 Nurse Note* Nursing - Yarely Arana LPN - 11/26/2023 12:27 PM EDT Discharge instructions read to patient at this time, verbalizes understanding. IV and tele removed.All belongings accounted for. Awaiting transportation. Wound supplies gathered for patient to take home. All needs met at this time. [facility]07-27-2024 Miscellaneous Notes* Nursing - [...] will need a PCPor to go to [facility] for follow up labs after discharge. Discharge date to be determined after vascularsees the patient. 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 Oxygen being weaned and downto 1L [...] to Heart Failure, chartreviewed. 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 Patient has not seen a Shopper or had any venous/arterial testing. Patient seen [...] the consult. * D/C Planning - Abbey Vital, Stave Planer Tender - 11/23/2023 2:48 PM EDT CM Initial Discharge Planning Azalia Matthew 1970 Met with Azalia Matthew at Bedside. 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 Comes home to visit his aunt. 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 uses a cane. Denies agency involvement. Has no PCP. [facility]. Denies all CM needs. DCP home with self care. Initial Discharge Planning Reason for Referral: Routine Discharge Plan Obtained Information From: Patient, Chart Family contact name: Juliana Matthew Family Contact Number: [phone] Living Arrangements: (semi truck) Capacity for Self-Care [...] Family/Caregiver Initial Discharge plan mutually acceptable to patient/family/case mgr?: Yes % Social Rodrigo Ohara The patient has the right to participate in the development and implementation of his plan of care.The patient or his employment representative (as allowed under State law) has the right to make informed decisions regarding his discharge plan. The patient's right includes being involved in care planning and treatment. * Rehab Therapies - Jerel [id number], CYRUS Russell - 11/23/2023 11:14 AM EDT Images from the original note were not included. [facility] OT Initial Evaluation Name: Azalia Matthew Date [...] Patient Prior Function Prior Function Level of [place]: Independent with ADLs, Independent with functional mobility, Independent with homemaking from ambulatory level Additional Comments: (Patient independent prior to admission. 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 OTR in room with patient at this time. TANGLED YARN SPOOL STRAIGHTENER will attempt again at a later time. 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 documented in this [facility]07-27-2024 Hospital course Narrative* Sara Ramirez MD - 11/26/2023 11:28 AM EDT [facility] Discharge Summary Azalia Matthew Account: [id number] Admitted: 11/22/2023 Discharge Date/Time: 11/26/23 / 11:50 AM Handoff to PCP PCP to address the following Repeat LFTs within 1-2 weeks of discharge Outpatient follow-up with podiatry Patient will need outpatient referral to vascular surgery at tertiary care center for management ofPAD Clinical Summary Azalia Matthew is a 53 y.o. male with a history of COPD who presented to [facility] with lower extremity edema, exertional dyspnea/orthopnea. Patient was found to have CHF and acute hypoxic failure. Patient transferred to [facility] 11/22/2023 for further management. Hospital course complicated [...] recommended outpatient evaluation by vascular surgery at tertiary [facility] due to weight. Abnormal Liver Enzymes: LFTs [...] Physician(s) Family: None Pcp, Phone: None, Address: [address] [place] [address] [place] [address] Follow Up: Isma Braxton DPM [address] [place] [address] Call Arrange for follow-up with wound care [facility] [address] [place] [address] Pcp, None [address] [facility] [address] [facility] [place] [address] [facility] [address] No future appointments. A face to face visit was performed with the patient on the day of discharge. For more detailed information including patient medical records, please contact [phone] or go to [email or web address] Patient instructions, including activity, were given to the patient/family at discharge. Please seethe After Visit Summary in the medical record for details. Time spent on discharge: > 30 Minutes Completed by: Sara Ramirez MD on 11/26/23, 11:50 AM [facility] History of Present illness Narrative* Isma Braxton DPM - 11/26/2023 6:39 AM EDT Progress Note Subjective: Primary Reason for Visit: Arterial and venous leg ulcer Alert and oriented x 3. 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 Staff Primary Care Physician: None Pcp Body Repairer: Tamera Reina RVT Ordering Physician: Josias Vigil APRN ADVERTISEMENT DISTRIBUTOR Attending Physician: Lizbeth Wilson MD History/Risk Factors [...] 184 cm/s RIGHT Iliac Waveform: Triphasic RIGHT LUSTERER PSV (cm/s): 249 cm/s RIGHT LUSTERER Waveform: Triphasic RIGHT PFA PSV (cm/s): 65 [...] RIGHT Dist Pop Waveform: Triphasic RIGHT Prox OIL BURNER SERVICER AND INSTALLER PSV (cm/s): 41 cm/s RIGHT Prox OIL BURNER SERVICER AND INSTALLER Waveform: Triphasic RIGHT Mid OIL BURNER SERVICER AND INSTALLER PSV (cm/s): 113 cm/s RIGHT Mid OIL BURNER SERVICER AND INSTALLER Waveform: Triphasic RIGHT Dist OIL BURNER SERVICER AND INSTALLER PSV (cm/s): 75 cm/s RIGHT Dist OIL BURNER SERVICER AND INSTALLER Waveform: Triphasic RIGHT Prox FLACA PSV (cm/s): 77 cm/s RIGHT Prox FLACA Waveform: Biphasic RIGHT Mid FLACA PSV (cm/s): 16 cm/s RIGHT Mid FLACA Waveform: Monophasic RIGHT Dist FLACA PSV (cm/s): 28 cm/s RIGHT Dist FLACA Waveform: Monophasic LEFT Iliac PSV (cm/s): 173 cm/s LEFT Iliac Waveform: Triphasic LEFT LUSTERER PSV (cm/s): 172 cm/s LEFT LUSTERER Waveform: Triphasic LEFT PFA PSV (cm/s): 266 [...] LEFT Dist Pop Waveform: Triphasic LEFT Prox OIL BURNER SERVICER AND INSTALLER PSV (cm/s): 102 cm/s LEFT Prox OIL BURNER SERVICER AND INSTALLER Waveform: Triphasic LEFT Mid OIL BURNER SERVICER AND INSTALLER PSV (cm/s): 59 cm/s LEFT Mid OIL BURNER SERVICER AND INSTALLER Waveform: Triphasic LEFT Dist OIL BURNER SERVICER AND INSTALLER PSV (cm/s): 65 cm/s LEFT Dist OIL BURNER SERVICER AND INSTALLER Waveform: Triphasic LEFT Prox FLACA PSV (cm/s): [...] 73 Hrs Assessment: Principal Problem: Heart failure (HCC) Active Problems: Heart failure, unspecified (HCC) Acute bilateral venous stasis dermatitis PVD (peripheral vascular disease) (HCC) Plan: 1.) Exam 2.) At this time [...] constructed and dictated with the use of [employer]der[employer] Voice Recognition Software program which may omit or change portions of the dictation, and or substitute ominous and there by altering the original intent dictated statement. Unintended gender changes may also be incorporated due to misinterpretation of the spoken words. * Sara Ramirez MD - 11/25/2023 11:24 AM EDT [facility] Medicine / [facility] Inpatient Progress Note 11/25/2023 Azalia Matthew 1970 [id number] Assessment/Plan: Azalia Matthew is a 53 y.o. male with a history of COPD who presented to [facility] with lower extremity edema, exertional dyspnea/orthopnea. Patient was found to have CHF and acute hypoxic failure. Patient transferred to [facility] 11/22/2023 for further management. Volume overload: suspect [...] Expected Disposition: Likely Home Estimated discharge date: TBD, pending vascular surgery evaluation Subjective: I have [...] analysis. Staff Primary Care Physician: None Pcp Body Repairer: Tamera Reina RVT Ordering Physician: Josias Vigil APRN ADVERTISEMENT DISTRIBUTOR Attending Physician: Lizbeth Wilson MD History/Risk Factors [...] 184 cm/s RIGHT Iliac Waveform: Triphasic RIGHT LUSTERER PSV (cm/s): 249 cm/s RIGHT LUSTERER Waveform: Triphasic RIGHT PFA PSV (cm/s): 65 [...] RIGHT Dist Pop Waveform: Triphasic RIGHT Prox OIL BURNER SERVICER AND INSTALLER PSV (cm/s): 41 cm/s RIGHT Prox OIL BURNER SERVICER AND INSTALLER Waveform: Triphasic RIGHT Mid OIL BURNER SERVICER AND INSTALLER PSV (cm/s): 113 cm/s RIGHT Mid OIL BURNER SERVICER AND INSTALLER Waveform: Triphasic RIGHT Dist OIL BURNER SERVICER AND INSTALLER PSV (cm/s): 75 cm/s RIGHT Dist OIL BURNER SERVICER AND INSTALLER Waveform: Triphasic RIGHT Prox FLACA PSV (cm/s): 77 cm/s RIGHT Prox FLACA Waveform: Biphasic RIGHT Mid FLACA PSV (cm/s): 16 cm/s RIGHT Mid FLACA Waveform: Monophasic RIGHT Dist FLACA PSV (cm/s): 28 cm/s RIGHT Dist FALCA Waveform: Monophasic LEFT Iliac PSV (cm/s): 173 cm/s LEFT Iliac Waveform: Triphasic LEFT LUSTERER PSV (cm/s): 172 cm/s LEFT LUSTERER Waveform: Triphasic LEFT PFA PSV (cm/s): 266 [...] LEFT Dist Pop Waveform: Triphasic LEFT Prox OIL BURNER SERVICER AND INSTALLER PSV (cm/s): 102 cm/s LEFT Prox OIL BURNER SERVICER AND INSTALLER Waveform: Triphasic LEFT Mid OIL BURNER SERVICER AND INSTALLER PSV (cm/s): 59 cm/s LEFT Mid OIL BURNER SERVICER AND INSTALLER Waveform: Triphasic LEFT Dist OIL BURNER SERVICER AND INSTALLER PSV (cm/s): 65 cm/s LEFT Dist OIL BURNER SERVICER AND INSTALLER Waveform: Triphasic LEFT Prox FLACA PSV (cm/s): [...] Imaging Arterial Duplex Lower Extremity Bilat (Order: [id number]) - 11/24/2023 Result History Arterial Duplex Lower Extremity Bilat (Order #[id number]) on 11/24/2023 - Order Result History Report [...] - Scan on 11/23/2023 1400 by Lianne Mednenhall RN: Right lower leg anterior Wound Image [...] venous stasis dermatitis PVD (peripheral vascular disease) (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 [...] constructed and dictated with the use of Ander[employer] Voice Recognition Software program which may omit or change portions of the dictation, and or substitute ominous and there by altering the original intent dictated statement. Unintended gender changes may also be incorporated due to misinterpretation of the spoken words. * Tereso Arcos, - 11/24/2023 12:34 PM EDT [facility] Inpatient Progress Note 11/24/2023 Azalia Matthew 1970 [id number] Assessment/Plan: Azalia Matthew is a 53 y.o. male with a history of COPD who presented to [facility] with lower extremity edema, exertional dyspnea/orthopnea. Patient was found to have CHF and acute hypoxic failure. Patient transferred to [facility] 11/22/2023 for further management. Volume overload: suspect [...] in the last 168 hours. * Josias Vigil APRN ADVERTISEMENT DISTRIBUTOR - 11/24/2023 8:05 AM EDT Azalia Matthew 1970 Admission Date:11/22/2023 Patient Seen on 11/24/2023 Subjective: Patient seen in follow-up for bilateral lower extremity venous ulceration. 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 He states ulcers present for approximately 1 [...] difficult with Definity Patient Status: OBV Site: [facility] Current Location: [facility] Exam Type: ECHOCARDIOGRAM WITH CONTRAST Study Info Indications - CHF Procedure(s) A complete two-dimensional, color flow and Doppler transthoracic echocardiogram was performed with Definity contrast to opacify the left ventricle and to improve the delineation of the left ventricle endocardial borders. Staff Primary Care Provider: None Pcp Ordering Provider: Canelo Cummins MD Body Repairer: Parrish Hanna [facility], RVT History/Risk Factors Tobacco Use: Current [...] mmHg MV VTI 29 cm MV Decel Andrew 325 cm/s2 MV PHT 83 ms MV [...] mmHg AV VTI 24.80 cm AV DI (Eliazar) 0.65 Ventricles Name Value Normal LV Dimensions [...] Braxton will follow patient beginning 11/25/2023 Josias Vigil 11/24/2023 8:05 AM * Tereso Arcos DO - 11/23/2023 4:06 PM EDT [facility] / [facility] Inpatient Progress Note 11/23/2023 Azalia Matthew 1970 [id number] Assessment/Plan: Azalia Matthew is a 53 y.o. male with a history of COPD who presented to [facility] with lower extremity edema, exertional dyspnea/orthopnea. Patient was found to have CHF and acute hypoxic failure. Patient transferred to [facility] 11/22/2023 for further management. Acute CHF: suspect [...] the last 168 hours. [facility] Note* Nursing - Emma Larkin LPN - 11/25/2023 6:48 PM EDT Patient resting in bed. Bilateral dressing changes changed per orders. Vitals stable. No other needs at this time. Call light in reach. [facility]07-26-2024 Consult note* FlorenciosaraLizbeth, - 11/25/2023 3:05 PM EDTAssociated Order(s): IP [...] difficult with Definity Patient Status: OBV Site: [facility] Current Location: [facility] Exam Type: ECHOCARDIOGRAM WITH CONTRAST Study Info Indications - CHF Procedure(s) A complete two-dimensional, color flow and Doppler transthoracic echocardiogram was performed with Definity contrast to opacify the left ventricle and to improve the delineation of the left ventricle endocardial borders. Staff Primary Care Provider: None Pcp Ordering Provider: Canelo Cummins MD Body Repairer: Parrish Hanna [facility], RVT History/Risk Factors Tobacco Use: Current [...] mmHg MV VTI 29 cm MV Decel Andrew 325 cm/s2 MV PHT 83 ms MV [...] mmHg AV VTI 24.80 cm AV DI (Eliazar) 0.65 Ventricles Name Value Normal LV Dimensions [...] analysis. Staff Primary Care Physician: None Pcp Body Repairer: Tamera Reina RVT Ordering Physician: Josias Vigil APRN ADVERTISEMENT DISTRIBUTOR Attending Physician: Lizbeth Wilson MD History/Risk Factors [...] 184 cm/s RIGHT Iliac Waveform: Triphasic RIGHT LUSTERER PSV (cm/s): 249 cm/s RIGHT LUSTERER Waveform: Triphasic RIGHT PFA PSV (cm/s): 65 [...] RIGHT Dist Pop Waveform: Triphasic RIGHT Prox OIL BURNER SERVICER AND INSTALLER PSV (cm/s): 41 cm/s RIGHT Prox OIL BURNER SERVICER AND INSTALLER Waveform: Triphasic RIGHT Mid OIL BURNER SERVICER AND INSTALLER PSV (cm/s): 113 cm/s RIGHT Mid OIL BURNER SERVICER AND INSTALLER Waveform: Triphasic RIGHT Dist OIL BURNER SERVICER AND INSTALLER PSV (cm/s): 75 cm/s RIGHT Dist OIL BURNER SERVICER AND INSTALLER Waveform: Triphasic RIGHT Prox FLACA PSV (cm/s): 77 cm/s RIGHT Prox FLACA Waveform: Biphasic RIGHT Mid FLACA PSV (cm/s): 16 cm/s RIGHT Mid FLACA Waveform: Monophasic RIGHT Dist FLACA PSV (cm/s): 28 cm/s RIGHT Dist FLACA Waveform: Monophasic LEFT Iliac PSV (cm/s): 173 cm/s LEFT Iliac Waveform: Triphasic LEFT LUSTERER PSV (cm/s): 172 cm/s LEFT LUSTERER Waveform: Triphasic LEFT PFA PSV (cm/s): 266 [...] LEFT Dist Pop Waveform: Triphasic LEFT Prox OIL BURNER SERVICER AND INSTALLER PSV (cm/s): 102 cm/s LEFT Prox OIL BURNER SERVICER AND INSTALLER Waveform: Triphasic LEFT Mid OIL BURNER SERVICER AND INSTALLER PSV (cm/s): 59 cm/s LEFT Mid OIL BURNER SERVICER AND INSTALLER Waveform: Triphasic LEFT Dist OIL BURNER SERVICER AND INSTALLER PSV (cm/s): 65 cm/s LEFT Dist OIL BURNER SERVICER AND INSTALLER Waveform: Triphasic LEFT Prox FLACA PSV (cm/s): [...] : Triphasic LEFT Dorsalis Pedis : Monophasic [facility] Work Phone: 1(466) 876-504507-26-2024 Consult note* Lizbeth Don, DO - 11/25/2023 3:05 PM EDTAssociated Order(s): [...] Diagnosis Date COPD (chronic obstructive pulmonary disease) ([facility]) Kidney stones Past Surgical History: Procedure Laterality [...] difficult with Definity Patient Status: OBV Site: [facility] Current Location: [facility] Exam Type: ECHOCARDIOGRAM WITH CONTRAST Study Info Indications - CHF Procedure(s) A complete two-dimensional, color flow and Doppler transthoracic echocardiogram was performed with Definity contrast to opacify the left ventricle and to improve the delineation of the left ventricle endocardial borders. Staff Primary Care Provider: None Pcp Ordering Provider: Canelo Cummins MD Body Repairer: Parrish Hanna [facility], RVT History/Risk Factors Tobacco Use: Current [...] mmHg MV VTI 29 cm MV Decel Andrew 325 cm/s2 MV PHT 83 ms MV [...] mmHg AV VTI 24.80 cm AV DI (Eliazar) 0.65 Ventricles Name Value Normal LV Dimensions [...] analysis. Staff Primary Care Physician: None Pcp Body Repairer: Tamera Reina RVT Ordering Physician: Josias Vigil APRN ADVERTISEMENT DISTRIBUTOR Attending Physician: Lizbeth Wilson MD History/Risk Factors [...] 184 cm/s RIGHT Iliac Waveform: Triphasic RIGHT LUSTERER PSV (cm/s): 249 cm/s RIGHT LUSTERER Waveform: Triphasic RIGHT PFA PSV (cm/s): 65 [...] RIGHT Dist Pop Waveform: Triphasic RIGHT Prox OIL BURNER SERVICER AND INSTALLER PSV (cm/s): 41 cm/s RIGHT Prox OIL BURNER SERVICER AND INSTALLER Waveform: Triphasic RIGHT Mid OIL BURNER SERVICER AND INSTALLER PSV (cm/s): 113 cm/s RIGHT Mid OIL BURNER SERVICER AND INSTALLER Waveform: Triphasic RIGHT Dist OIL BURNER SERVICER AND INSTALLER PSV (cm/s): 75 cm/s RIGHT Dist OIL BURNER SERVICER AND INSTALLER Waveform: Triphasic RIGHT Prox FLACA PSV (cm/s): 77 cm/s RIGHT Prox FLACA Waveform: Biphasic RIGHT Mid FLACA PSV (cm/s): 16 cm/s RIGHT Mid FLACA Waveform: Monophasic RIGHT Dist FLACA PSV (cm/s): 28 cm/s RIGHT Dist FLACA Waveform: Monophasic LEFT Iliac PSV (cm/s): 173 cm/s LEFT Iliac Waveform: Triphasic LEFT LUSTERER PSV (cm/s): 172 cm/s LEFT LUSTERER Waveform: Triphasic LEFT PFA PSV (cm/s): 266 [...] LEFT Dist Pop Waveform: Triphasic LEFT Prox OIL BURNER SERVICER AND INSTALLER PSV (cm/s): 102 cm/s LEFT Prox OIL BURNER SERVICER AND INSTALLER Waveform: Triphasic LEFT Mid OIL BURNER SERVICER AND INSTALLER PSV (cm/s): 59 cm/s LEFT Mid OIL BURNER SERVICER AND INSTALLER Waveform: Triphasic LEFT Dist OIL BURNER SERVICER AND INSTALLER PSV (cm/s): 65 cm/s LEFT Dist OIL BURNER SERVICER AND INSTALLER Waveform: Triphasic LEFT Prox FLACA PSV (cm/s): [...] LEFT Dorsalis Pedis : Monophasic documented in [facility]07-26-2024 Plan of care note* D/C Planning - Alannah Crane RN - 11/25/2023 11:18 AM EDT Per rounds patient has vascular consult based on test results of yesterday. Patient will need a PCPor to go to [facility] for follow up labs after discharge. Discharge date to be determined after vascularsees the patient. 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 Oxygen being weaned and downto 1L as of rounds. CM following. [facility] Work Phone: 1(392) 713-735807-25-2024 Nurse Note* Nursing - Lore Walter RN - 11/24/2023 6:34 AM EDT Patient has rested at intervals this shift. O2 applied at 2L for desats to 83 while sleeping. Sats maintained on 2L. Dressing change to BLE per orders. PRN oxycodone effective for pain. Lovenox VTE. Continent to BSC. Call light in easy reach, able to verbalize needs. [facility] [id number] Nurse Note* Nursing - Lore Walter RN - 11/23/2023 9:35 PM EDT Dressing change attempted as ordered. Patient complains of 10/10 burning pain to BLE with cleansingof BLE with soap and water and application of zinc strips. Dr. Denney notified and orders received for one time dose of oxycodone [facility] [id number] Nurse Note* ET Notes - Lianne Mendenhall [...] to Heart Failure, chartreviewed. 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 Patient has not seen a Shopper or had any venous/arterial testing. Patient seen [...] primary RN. Thank you for the consult. [facility] Work Phone: 1(701) 220-444607-24-2024 Plan of care note* D/C Planning - Abbey Vital, Stave Planer Tender - 11/23/2023 2:48 PM EDT CM Initial Discharge Planning Azalia Matthew 1970 Met with Azalia Matthew at Bedside. 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 Comes home to visit his aunt. 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 uses a cane. Denies agency involvement. Has no PCP. [facility]. Denies all CM needs. DCP home with self care. Initial Discharge Planning Reason for Referral: Routine Discharge Plan Obtained Information From: Patient, Chart Family contact name: Juliana Matthew Family Contact Number: [phone] Living Arrangements: (semi truck) Capacity for Self-Care [...] Family/Caregiver Initial Discharge plan mutually acceptable to patient/family/case mgr?: Yes % Social Rodrigo Ohara The patient has the right to participate in the development and implementation of his plan of care.The patient or his employment representative (as allowed under State law) has the right to make informed decisions regarding his discharge plan. The patient's right includes being involved in care planning and treatment. [facility] Work Phone: 1(752) 455-363707-24-2024 Progress note* Rehab Therapies - Jerel [id number] OT - 11/23/2023 11:14 AM EDT Images from the original note were not included. S OT Initial Evaluation Name: Azalia Matthew Date [...] Patient Prior Function Prior Function Level of [place]: Independent with ADLs, Independent with functional mobility, Independent with homemaking from ambulatory level Additional Comments: (Patient independent prior to admission. 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 OTR in room with patient at this time. TANGLED YARN SPOOL STRAIGHTENER will attempt again at a later time. 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 Signature: Dalila Reynoso, PT November 23, 2023 [facility]07-24-2024 Nurse Note* Nursing - Argenis Roberson LPN - 11/23/2023 6:17 AM EDT Patient slept for most of this shift. RR easy and unlabored. Call light within reach, no needs at this time. [facility]07-23-2024 Nurse Note* Nursing - Lyndsay Kim MST - 11/22/2023 6:00 PM EDT VINH tried to get a weight at this time bed scale wasn't working and patient states he can't stand on the standing scale at this time due to having leg pain [facility]07-23-2024 History and physical note* Adan Zaman PA - 11/22/2023 5:43 PM EDT Images from the original note were not included. [facility] Medicine / [facility] History and Physical 11/22/23 Azalia Matthew 1970 [id number] Assessment/Plan: Azalia Matthew is a 53 y.o. male with a history of COPD who presented to [facility] with lower extremity edema, exertional dyspnea/orthopnea. Patient was found to have CHF and acute hypoxic failure. Patient transferred to [facility] 11/22/2023 for further management. Acute CHF: suspect [...] a history of COPD who presented to [facility] with lower extremity edema, exertional dyspnea/orthopnea. Patient was found to have CHF and acute hypoxic failure. Patient transferred to [facility] 11/22/2023 for further management. Patient seen this [...] Diagnosis Date COPD (chronic obstructive pulmonary disease) ([facility]) Kidney stones Past Surgical History: Procedure Laterality [...] PM EDT I have personally performed a axop-fb-nhfz diagnostic evaluation of this patient on 11/22/23. [...] appropriate to clinical situation Canelo Cummins MD [facility] Please do not hesitate to contact me via [employer] directory or threshing operator. [employer] Work Phone: 1(138) 297-394407-23-2024 History and physical note* Adan Zaman PA - 11/22/2023 5:43 PM EDT Images from the original note were not included. [facility] Medicine / [facility] History and Physical 11/22/23 Azalia Matthew 1970 [id number] Assessment/Plan: Azalia Matthew is a 53 y.o. male with a history of COPD who presented to [facility] with lower extremity edema, exertional dyspnea/orthopnea. Patient was found to have CHF and acute hypoxic failure. Patient transferred to [facility] 11/22/2023 for further management. Acute CHF: suspect [...] a history of COPD who presented to [facility] with lower extremity edema, exertional dyspnea/orthopnea. Patient was found to have CHF and acute hypoxic failure. Patient transferred to [facility] 11/22/2023 for further management. Patient seen this [...] PM EDT I have personally performed a pkze-qa-dpza diagnostic evaluation of this patient on 11/22/23. [...] appropriate to clinical situation Canelo Cummins MD [facility] Hospitalist Please do not hesitate to contact me via [employer] directory or threshing operator. [facility] Note* Beatrice Norman RN - 11/22/2023 4:56 PM EDT Lynn from [address] [place] [address] notified JADE at bedside for transport. [facility]07-23-2024 Emergency department Note* Beatrice Norman RN - 11/22/2023 4:56 PM EDT JADE at bedside. Report to JADE [facility]07-23-2024 Emergency department Note* Beatrice Norman RN - 11/22/2023 4:56 PM EDT Lynn from [address] [place] [address] notified JADE at bedside for transport. * [...] decision making plan verbally with the midlevel, OUTBOUND SALES CONSULTANT, or PA, that led to the disposition, [...] 3.3 x10*3/uL Monocytes % 7.3 % Absolute [place] 0.6 0.2 - 0.6 x10*3/uL Eosinophil % [...] and dictated with the use of the Andera voice recognition software program which may omit [...] were created for panel order PC and [facility] ED [place] Draw. Procedure Abnormality Status --------- ------ Gold Top[[id number]] In process LIGHT BLUE TOP[[id number]] In process Light Green Top[[id number]] In process Lavender Top[[id number]] In process Dark Green Top[[id number]] In process Please view results for these [...] attending regarding patient. Collaboration performed between this EMD SPECIAL EDUCATION TEACHER and physician regarding patient's plan of care. [...] documented in ED Course. Shawna Sotelo APRN OUTBOUND SALES CONSULTANT 11/22/23 1616 * Beatrice Norman RN - [...] respirations easy and unlabored. documented in this [facility]07-23-2024 Emergency department Note* Beatrice Norman RN - 11/22/2023 4:23 PM EDT Patient placed on ANIBAL call at this time. [facility]07-23-2024 Emergency department Note* Beatrice Norman RN - 11/22/2023 3:42 PM EDT Ultrasound at bedside. [facility]07-23-2024 Progress note* Pharmacy Note - Kaur Pastor PharmD - 11/22/2023 3:15 PM EDT Pharmacy To Dose Vancomycin For Emergency Department Ht: Wt:(!) 231.3 kg (510 lb) Vancomycin 2g IV x1 now Please administer Cefepime (Maxipime) prior to vancomycin administration. Thank you, Kaur Pastor PharmD [facility]07-23-2024 Physician Emergency department Note* Lizbeth Wilson MD - 11/22/2023 2:59 PM EDT I personally saw and examined this patient. I supervised the care and treatment of this patient. I formulated the medical decision making plan verbally with the midlevel, OUTBOUND SALES CONSULTANT, or PA, that led to the disposition, [...] 3.3 x10*3/uL Monocytes % 7.3 % [place] 0.6 0.2 - 0.6 x10*3/uL Eosinophil % [...] and dictated with the use of the Andera voice recognition software program which may omit or change portions of the dictation, and/or substitute, homonyms and thereby alter the original intent of the dictated statement. Unintended gender changes may also be incorporated due to misinterpretation of the spoken words. Lizbeth Wilson MD 11/22/23 1502 [facility] Work Phone: [phone] Emergency department Note* Beatrice Norman RN - 11/22/2023 2:00 PM EDT 2 liters O2 placed on patient at this time, increases SPO2 to 92% [facility]07-23-2024 Physician Emergency department Note* Shawna Sotelo APRN OUTBOUND SALES CONSULTANT - 11/22/2023 1:58 PM EDT Images from [...] following orders were created for panel order and [facility] ED [place] Draw. Procedure Abnormality Status --------- ------ Gold Top[[id number]] In process LIGHT BLUE TOP[[id number]] In process Light Green Top[[id number]] In process Lavender Top[[id number]] In process Dark Green Top[[id number]] In process Please view results for these [...] attending regarding patient. Collaboration performed between this EMD SPECIAL EDUCATION TEACHER and physician regarding patient's plan of care. [...] Course. Shawna Sotelo APRN NP 11/22/23 1616 [facility]07-23-2024 Emergency department Triage note* Beatrice Norman RN [...] oriented, skin Pwd, respirations easy and unlabored. [facility]01-23-2023 [place] [address] HEALTH INFORMATION MANAGEMENT DISCHARGE SUMMARY : [phone] Signed Patient: AZALIA MATTHEW Acct:[id number] MRUN : [id number] : 1970 Sex: M Loc: 4TH FLOOR [...] 83.7 H, Lymph % (Auto) 14.6 L, [place] % (Auto) 1.3 L, Eos % (Auto) [...] Appearance Clear, Urine pH 5, Ur Specific [place] 1.015, Urine Protein Negative, Urine Ketones 5 [...] % (Auto) 57.1, Lymph % (Auto) 31.7, [place] % (Auto) 8.1, Eos % (Auto) 2.7, [...] LD GIMENEZ MD [P (more content not included)...[facility]01-23-2023 [place] [address] HEALTH INFORMATION MANAGEMENT CONSULTATION : [id number] Signed Patient: AZALIA MATTHEW Acct:[id number] MRUN : [id number] : 1970 Sex: M Loc: 4TH FLOOR ADM Date: 05/20/22 Room/Bed: 425-B DISC Date: 05/21/22 CARDIOLOGY CONSULT THIS DOCUMENT HAS BEEN CREATED USING VOICE RECOGNITION SOFTWARE AND MAY CONTAIN GRAMMATICAL, SYNTAX, AND TYPOGRAPHICAL ERRORS. Admission Date: 05/20/22 19:14 Current Date: 05/23/22 Admission Diagnosis: Chest pain Chief Complaint: Chest pain Referring Physician: [facility] medicine HPI: Patient is a 51-year-old [...] (Auto) 14.6 % (17.0-45.5) L 05/21/22 06:15 [place] % (Auto) 1.3 % (5.5-11.7) L 05/21/22 [...] Urine pH 5 05/21/22 03:51 Ur Specific [place] 1.015 (1.015-1.025) 05/21/22 03:51 Urine Protein Negative (Negative) 05/21/22 03:51 Urine Ketones 5 (Negative) A 05/21/22 03:51 Urine Blood 10 (Negative) A 05/21/22 03:51 Urine Nitrite Negative (Negative) 05/21/22 03:51 Urine Bilirubin Negative (Negative) 05/21/22 03:51 Urine Urobilinogen Normal mg/dL (Normal-1.0) 05/21/22 03:51 Ur Leukocyte Esterase Negative (Negative) 05/21/22 03:51 Urine RB (more content not included)...[facility] 05-24-2022 Consult note Author AIDE MONREAL [facility] May 23, 2022 11:53pm Note Date/Time May 23, 2022 1 1:52pm [facility] [address] [place] [address] HEALTH INFORMATION MANAGEMENT CONSULTATION : [phone] Signed Patient: AZALIA MATTHEW Acct:[id number] MRUN: [id number] : 1970 Sex: M Loc: 4TH FLOOR ADM Date: 05/20/22 Room/Bed: 425-B DISC Date: 05/21/22 CARDIOLOGY CONSULT THIS DOCUMENT HAS BEEN CREATED USING VOICE RECOGNITION SOFTWARE AND MAY CONTAIN GRAMMATICAL, SYNTAX, AND TYPOGRAPHICAL ERRORS. Admission Date: 05/20/22 19:14 Current Date: 05/23/22 Admission Diagnosis: Chest pain Chief Complaint: Chest pain Referring Physician: 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 Choose all that Apply: Male - Isabella-Suicide Severity Rating Scale 1) Wish to be [...] Electronically Generated By:AIDE MONREAL MD Generated Date/Time: 05/21/22 1750 Electronically Signed By: AIDE MONREAL MD Signed Date/Time 05/23/22 271 Co Signed Electronically By: Co Signed Date/Time: CC: AIDE MONREAL MD; LD GIMENEZ MD [facility] Work Phone: 1(759) 604-527701-21-2023 History and physical note Author ALLA HERNANDEZ [facility] May 22, 2022 8:38pm Note Date/Time May 20, 2022 8 :52pm [facility] [address] [place] [address] HEALTH INFORMATION MANAGEMENT HISTORY AND PHYSICAL : [phone] Signed Patient: AZALIA MATTHEW Acct:[id number] MRUN: [id number] : 1970 Sex: M Loc: 4TH FLOOR ADM Date: 05/20/22 Room/Bed: 425-B DISC Date: 05/21/22 History of Present Illness Date Of Admission: 05/20/22 Chief Complaint: SOB, Cough, L sided flank pain, diarrhea History of Present Illness: Visit History AZLAIA MATTHEW is a 51 year old M patient of LD GIMENEZ MD. Patient was admitted from to room 425, bed B on 05/20/22 19:14. Pt was evaluated for complaints of , then admitted to [facility] for SOB/COPD/CHEST DISCOMFORT/HEMOPTYSIS. AZALIA was admitted as a ADM to [facility] for further evaluation and treatment. Pt was seen and evaluated on 05/20/222050, by this provider, FRANKO WAKEFIELD CNP. History of present illness: Mr. Matthew a 51-year-old male [facility] with and reports that he has [...] weeks per the patient. 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 Choose all that Apply: Male - Isabella-Suicide Severity Rating Scale 1) Wish to be [...] The EKG was forwarded to Dr. Monreal, oil burner servicer and installer who did not find a STEMI. He [...] CC: AIDE MONREAL MD; LD GIMENEZ MD [facility] Work Phone: 1(770) 248-904701-21-[address] [address] HEALTH INFORMATION MANAGEMENT HISTORY AND PHYSICAL : [id number] Signed Patient: AZALIA MATTHEW Acct:[id number] MRUN : [id number] : 1970 Sex: M Loc: 4TH FLOOR [...] for complaints of , then admitted to [facility] for SOB/COPD/CHEST DISCOMFORT/HEMOPTYSIS. AZALIA was admitted as a ADM to [facility] for further evaluation and treatment. Pt was seen and evaluated on 05/20/222050, by this provider, FRANKO WAKEFIELD CNP. History of present illness: Mr. Matthew a 51-year-old male [facility] with and reports that he has [...] weeks per the patient. 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 Choose all that Apply: Male - Isabella-Suicide Severity Rating Scale 1) Wish to be [...] Cardiovascular: Denies: Chest Pain-Sh (more content not included)...[facility]01-20-2023 Discharge summary Author NELLY DIMAS [facility] May 20, 2022 10:42pm Note Date/Time May 20, 2022 5 :22pm [facility] [address] [place] [address] HEALTH INFORMATION MANAGEMENT EMERGENCY DEPARTMENT : [phone] Signed with Octaviano Patient: AZALIA MATTHEW Acct:[id number] MRUN: [id number] : 1970 Sex: M Loc: 4TH FLOOR ADM Date: 05/20/22 Room/Bed: 425-B DISC Date: ADDENDUM I have been informed of the technology education instructor the CT will not be possible due to the patient's size, they are not able to get him on the CT table here. Further evaluation for PE can be done at by the inpatient team, consideration should be given for VQ scan, Doppler study, etc. Addendum: <Electronically signed by LIZBETH MCCLAIN DO> Signed Date/Time: 05/20/221935 Co-Signed: <Electronically signed by NELLY DIMAS MD> Co-signed Date/Time 05/20/22 6582 History of Present Illness <LIZBETH MCCLAIN - [...] 4 weeks per patient. 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 Not seen any doctor for the same [...] of Present Illness C\O Chest Pain?: No <NELLY DIMAS - Last Filed: 05/20/22 22:41> - General [...] Score Interpretation: Low Risk ACS (HS 2-3) <NELLY DIMAS - Last Filed: 05/20/22 22:41> Review of [...] Relationship: No Hx Physical Abuse: No - [place]/Gender ID What is your current Gender Identity? Choose all that Apply: Male - Isabella-Suicide Severity Rating Scale 1) Wish to be :: No 2) Suicidal Thoughts:: No 6) Suicidal Behavior Question (A): LIFETIME: No 6) Suicidal Behavior Question (B): PAST 3 MONTHS: No <NELLY DIMAS M - Last Filed: 05/20/22 22:41> General Exam [...] mood - Skin Skin Color: Present: Normal, [place] Skin exam: Present: warm, dry - Expanded [...] Data Result diagrams: 05/20/22 17:13 05/20/22 17:13 <LIZBETH MCCLAIN - Last Filed: 05/20/22 19:32> - Lab [...] % Lymph % (Auto) 31.7 (17.0-45.5) % [place] % (Auto) 8.1 (5.5-11.7) % Eos % [...] (43.0-65.0) % Lymph % (Auto) (17.0-45.5) % [place] % (Auto) (5.5-11.7) % Eos % (Auto) [...] IMPRESSION: No acute process. 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: : 1970 Requested By: NELLY DIMAS Order Number: [id number] Reading MD: NELLY DIMAS Measurements Intervals [place] Rate: 81 P: 12 PA: 161 QRS: 45 QRSD: 103 T: 59 QT: 368 QTc: 428 Interpretive Statements Sinus rhythm Low voltage, precordial leads ST elev, probable normal early repol pattern Compared to ECG 01/05/2013 19:14:24 Low QRS voltage now present ST (T wave) deviation now present Electronically Signed On 05-20-2022 19:08:17 EST by NELLY DIMAS Electrocardiogram 05/20/22 18:15 [facility] ED Test Date: 2022-05-20 Test Time: 18:50:09 Pat Name: AZALIA MATTHEW Department: Room: Gender: M Apparel Trimmings Sales Representative: JULIANN : 1970 Requested By: NELLY DIMAS Order Number: [id number] Reading MD: NELLY DIMAS Measurements Intervals [place] Rate: 79 P: 13 PA: 161 QRS: 39 QRSD: 105 T: 50 QT: 380 QTc: 436 Interpretive Statements Sinus rhythm Low voltage, precordial leads ST elev, probable normal early repol pattern Compared to ECG 05/20/2022 17:55:04 No significant changes Electronically Signed On 05-20-2022 19:07:33 EST by NELLY DIMAS - Medical Decision Making [facility], I relieved him at 7 PM. [...] EKG was sent to and reviewed by oil burner servicer and installer Dr. Monreal. No findings of STEMI per [...] patient also states understanding of admission to [facility] and agrees with this Patient hemodynamically stable. 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 Sats are stable on supplemental oxygen. No [...] Generated By:NELLY DIMAS MD Generated Date/Time: 05/20/22 1719 Electronically Signed By: LIZBETH MCCLAIN DO Signed Date/Time 05/20/22 1933 Co Signed Electronically By: Co Signed Date/Time: CC: AIDE MONREAL MD; LD GIMENEZ MD [facility] Work Phone: Discharge summary Author Zachariah Lantigua [facility] Note Date/Time September 06, 2024 4:15am [facility] Medical Records Department [address] [place] [address] Emergency Department Summary 09/06/24 MR#: [id number] Acct: [id number] Name: AZALIA MATTHEW II Rep #:[id number] : 1970 53 From: Zachariah Lantigua [...] abdominal pain, palpitations, syncope, leg edema changes. 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 [facility]ir[facility] antibiotics were started and I [...] 75.4 H Lymph % (Auto) 15.8 L [place] % (Auto) 6.6 Eos % (Auto) 1.4 [...] goiter or otherprocess, clinically correlate. Reading Location: [facility] Rhythm Strip Rhythm Strip: Sinus Rhythm [...] (COPD), Pneumonia Disposition Disposition: Acute Care Hospital [facility] What to do if you have Problems For any increased pain, shortness of breath, bleeding, nausea or vomiting, chestpain, or any unexpected problems, contact your Primary Care Provider. Call [facility] ([phone]) or report to the closest Emergency Room. Call 911 if necessary. 09/06/245 <Electronically signed by Zachariah Lantigua MD> Cosigner Signature (if applicable): CC: No Primary Care Physician ~ Signed [facility] Work Phone: Discharge summary Author Francesco Montgomery [facility] Note Date/Time November 14, 2024 3:47 pm [facility] Medical Records Department [address] [place] [address] Transfer to [facility] MR#: [id number] Acct: [id number] Name: AZALIA MATTHEW II Rep #:[id number] : 1970 53 From: Francesco Hawkins PCP: Dr. Juliana Cox, DO Status:ADM IN Certification of patient admission REQUIRED AT TIME OF ADMISSION. I CERTIFY THAT POST-HOSPITAL ECF SERVICES ARE REQUIRED TO BE GIVEN ON AN IN-PATIENT BASIS BECAUSE OF THE ABOVE NAMED PATIENT'S NEED FOR INTERMEDIATE CARE ON A CONTINUING BASIS FOR THE CONDITION(S) FOR WHICH HE/SHE WAS RECEIVING IN-PATIENT HOSPITAL SERVICES PRIOR TO HIS/HER TRANSFER TO THE [facility]. 11/14/24 1547<Electronically signed by Francesco Montgomery MD> Diet Diet Order/Speech Therapy: INPATIENT Hospital Diet / Speech Therapy Order(s) 11/10/24 00:51 Diet: Cardiac - Heart Healthy Food consistency:: Regular Liquid Consistency:: Regular/Thin Routine Orders/Code Status Suppository Type: Dulcolax 10mg Suppository Frequency: Daily PRN DC O2, CPAP, BIPAP needs Home O2 Discharge instructions: No Wound(s) left aleman\: Wound Type: Stasis Ulcer Therapies Extremity Affected:: Bilateral Lower Physical Therapy: Eval and Treat Occupational Therapy: Eval and Treat Speech Therapy: Eval and Treat Problem/Diagnosis (1) CHF (congestive heart failure): Status: Acute Code(s): I50.9 - Heart failure, unspecified Plan 1. Acute diastolic CHF-according to the patient, he has never had a diagnosis of CHF before, this rules out acute on chronic CHF. Patient will remain on oralLasix at this time, we are awaiting approval for the patient to go to a skilled facility for short-term rehab services. Patient is presently homeless #2 acute debility secondary #1 on a backdrop of class III obesity-PT and OT willcontinue to see the patient, he has consented to go to a skilled facility for short-term rehab services. #3 class III obesity-complicates care, management, recovery, and prognosis #4 essential hypertension-patient's losartan and hydrochlorothiazide was discontinued, he remains on oral Lasix #5 homelessness-complicates care, management, recovery, and prognosis Total clinical time spent by myself addressing the patient's medical issues, reviewing all of his data, and collaborating with patient's care team: 35 minutes Allergies/Procedures Done in Hospital Allergies No Known Allergies Allergy (Verified 11/09/24 22:03) Type of Care/Length of Stay Estimated LOS: Convalescent Care Less Than 30 days Type of Care Needed: Skilled Rehab Potential: Good Prognosis: Good Additional Orders/Day of Discharge Day of Discharge: 11/14/24 Dietary and Speech Recommendations Dietitian Recommendations/Changes: Adjust to cardiac diet. No medical history ofdiabetics. Will monitor weight trends. Discharge Plan Admission Admit Date/Time: 11/10/24 00:06 Primary Reason for Your Visit: Acute HFpEF Attending Provider: Francesco Montgomery Primary Care Provider: Juliana Cox Consulting Providers: Efraín Toledo; Adelso Paniagua Discharge Orders/Prescriptions Prescriptions: New furosemide 40 mg Tablet 40 mg PO BIDLX Qty: 0 0RF potassium chloride 20 mEq Tablet,Er Particles/Crystals 20 meq PO DAILYCM Qty: 0 0RF metoprolol succinate 25 mg Tablet Extended Release 24 Hr 25 mg PO DAILY Qty: 0 0RF losartan 50 mg tablet 50 mg PO DAILY 30 Days Qty: 30 1RF Continued nicotine 14 mg/24 hr Patch 24 Hour 14 mg transdermal DAILY 28 Days Qty: 28 0RF albuterol sulfate 90 mcg/actuation aerosol powdr breath activated 1 inh inhalation Q6H PRN (Reason: shortness of breath) Discontinued chlorthalidone 50 mg Tablet 12.5 mg PO DAILY 30 Days Qty: 8 0RF losartan-hydrochlorothiazide 50-12.5 mg tablet 1 tab PO DAILY Referrals / Follow Up: Juliana Cox DO [Primary Care Provider] - Care Physician,No Primary [Non-Staff] - Disposition Disposition (needs filled in before D/C Order can be placed): Home, Self Care 11/14/241546 <Electronically signed by Francesco Montgomery MD> Cosigner Signature (if applicable): CC: Dr. Efraín Toledo, ; Dr. Juliana Cox DO; Dr. Adelso Paniagua, ~ [facility] Work Phone: Discharge summary Author Francesco Montgomery [facility] Note Date/Time November 14, 2024 3:55 pm [facility] [facility] [address] [place] [address] Discharge Summary 11/14/24 1547 MR#: [id number] Acct: [id number] Name: AZALIA MATTHEW TARI Rep #:[id number] : 1970 53 From: Francesco Hawkins PCP: Dr. Juliana Cox DO Status:ADM IN Location: [place] [address] Providers Date of Admission: 11/10/24 Date of Discharge: 11/14/24 Primary Care Physician: Dr. Juliana Cox DO Reason For Visit: CHF EXACERBATION W/ HYPOXIA Diagnosis Discharge Diagnosis (1) CHF (congestive heart failure): Status: Acute Code(s): I50.9 - Heart failure, unspecified Plan 53-year-old gentleman being admitted for bilateral leg swelling that started about 1 and half weeks ago along with bilateral heel pain and low back pain and shortness of breath. He was admitted in PCU and found to have heart failure as described below 1. Acute diastolic CHF: This is a new diagnosis for the patient. The patient was started on IV Lasix which changed to oral Lasix. Heart failure core measures including intake and output, daily weight monitoring, kidney and electrolytes monitoring. Patient discharged on furosemide 40 mg p.o. twice daily. Patient is homeless. Pre-CERT approved and going to rehab today #2. Acute debility secondary super morbid obesity, BMI 71.0 kg/m?:-PT and OT. SNF. #3 Super morbid obesity-complicates care, management, recovery, and prognosis #4 essential hypertension-patient on losartan/HCTZ at home. HCTZ discontinued. Patient BP 141/77, 156/90, fluctuates. Losartan 50 mg daily started and discharged on them. #5 homelessness-complicates care, management, recovery, and prognosis Discharge medication reconciliation done. Discharge follow-up instructions completed. Discharge process discussed with the patient and all questions wereanswered to patient's satisfaction. Follow with PCP in 1 to 2 weeks Total time spent, exact 35 minutes on discharge meds reconciliation, examination, coordination of care with nurses and ancillary staff, review of imaging and blood test and discussion with the patient on follow-up instructions. 2D echo 11/10/2024 Interpretation Summary The LV ejection fraction is 55 %. Normal left atrium. Normal right ventricularsystolic function Left ventricular systolic function is normal. Medications at Discharge Home Medications nicotine 14 mg/24 hr daily transdermal patch 14 mg transdermal DAILY 4 weeks #28ea 09/08/24 albuterol sulfate 90 mcg/actuation breath activated powder inhaler 1 inh inhalation Q6H PRN shortness of breath 11/09/24 furosemide 40 mg tablet 40 mg PO BIDLX #0 tabs 11/14/24 losartan 50 mg tablet 50 mg PO DAILY 1 month #30 tabs 11/14/24 metoprolol succinate 25 mg tablet,extended release 24 hr 25 mg PO DAILY #0 tabs 07/16/25 potassium chloride 20 mEq tablet,extended release(part/cryst) 20 meq PO DAILYCM #0 tabs 11/14/24 Physical Exam Narrative Seen and examined Patient is morbidly obese. Was sleeping in the morning then woke up. Still hasleg swelling but improved Physical exam General: Alert, Oriented x3, Cooperative HEENT: Atraumatic, PERRLA, EOMI, Normocephalic. Oral: Deep pharynx history could not be evaluated. Thick and white neck Neck: Supple, No JVD, Negative Carotid Bruits Chest wall/Lungs: Air entry diminished in bilateral lung bases. No crepitation/rhonchi Cardiovascular: Regular rate and rhythm, Normal S1,S2, No M/G/R Abdomen: Bowel Sounds Present, Soft, Non Tender, Non-Distended : No dysuria. No renal angle tenderness. No suprapubic tenderness. Extremities: 2+ bilateral pitting below knee edema, Capillary Refill Less than 3Seconds Skin: No rashes, No breakdown Musculoskeletal: No Tenderness to Palpation of Joints or Extremities Neurological: Cranial nerves II-XII grossly intact, DTR 2+/4. No acute focal neurological deficit. Psych/Mental Status: Normal Affect, Appropriate. Medical Records Data Homelessness:: Unsheltered Weight / BMI Weight Weight: 494 lb 15.004 oz Body Mass Index (BMI) 71.0 ABG / Lab / Microbiology Data 11/10/24 06:15 11/12/24 09:33 D/C Instructions DC O2, CPAP, BIPAP Needs Home O2 Discharge instructions: No Meaningful Use Info Meaningful Use Meaningful Use Diagnoses (Choose all that apply): CHF CHF FLAQUITO/ARB ordered at discharge?: Yes Documented LVEF (%): 55 Discharge Plan Admission Admit Date/Time: 11/10/24 00:06 Primary Reason for Your Visit: Acute HFpEF Attending Provider: Francesco Montgomery Primary Care Provider: Juliana Cox Consulting Providers: Efraín Toledo; Adelso Paniagua Discharge Orders/Prescriptions Prescriptions: New furosemide 40 mg Tablet 40 mg PO BIDLX Qty: 0 0RF potassium chloride 20 mEq Tablet,Er Particles/Crystals 20 meq PO DAILYCM Qty: 0 0RF metoprolol succinate 25 mg Tablet Extended Release 24 Hr 25 mg PO DAILY Qty: 0 0RF losartan 50 mg tablet 50 mg PO DAILY 30 Days Qty: 30 1RF Continued nicotine 14 mg/24 hr Patch 24 Hour 14 mg transdermal DAILY 28 Days Qty: 28 0RF albuterol sulfate 90 mcg/actuation aerosol powdr breath activated 1 inh inhalation Q6H PRN (Reason: shortness of breath) Discontinued chlorthalidone 50 mg Tablet 12.5 mg PO DAILY 30 Days Qty: 8 0RF losartan-hydrochlorothiazide 50-12.5 mg tablet 1 tab PO DAILY Referrals / Follow Up: Juliana Cox DO [Primary Care Provider] - Care Physician,No Primary [Non-Staff] - Lizbeth Walsh MD [Med Staff - Active Staff] - Within 1 Month Disposition Disposition (needs filled in before D/C Order can be placed): Home, Self Care Charges/Coding Visit Charges Inpatient E&M: 83565 Disch Hosp >30min 11/14/24 6583 <Electronically signed by Francesco Montgomery MD> Cosigner Signature (if applicable): CC: Dr. Juliana Cox DO; Dr. Francesco Montgomery MD~ Signed [facility] Work Phone: Evaluation note* Diagnosis Onset Date Resolution Status Chronic obstructive pulmonary disease acute Chest discomfort acute Positive D-dimer acute Hemoptysis acute Person under investigation for COVID-19 acute Shortness of breath acute [facility] Work Phone: Evaluation note* Diagnosis Heart failure [...] vascular disease, unspecified documented in this encounter [facility] System[facility] and [facility] note Author Efraín Toledo [facility] Note Date/Time November 10, 2024 12:4 2am [facility] Medical Records Department [address] [place] [address] H&P Exam - Hospitalist 11/10/24 0006 MR#: [id number] Acct: [id number] Name: AZALIA MATTHEW II Rep #:[id number] : 1970 53 From: Efraín weinberg DO PCP: Dr. Juliana Cox, Status:ADM IN Location: [facility] [id number] HPI - General General Date of Admission: 11/10/24 Date of Service: 11/10/24 Chief Complaint: Worsening shortness of breath and lower extremity swelling HPI Narrative AZALIA MATTHEW, is a 53 M who presented to [facility] ED on 11/10/2024 with worsening shortness of breath and lower extremity swelling. Medical history significant for super morbid obesity with BMI 70, HFpEF, COPD, SINA, AntiBac obese. He was last hospitalized here in August for a COPD exacerbation. He presents today with progressive worsening shortness of breath and lower extremity swelling with heel pain. Notes that he recently became homeless. He was started on a medication apparently by his PCP for lower extremity swelling but it was not Lasix. In the ED he was mildly hypertensive to the 150s systolic. Oxygen saturation in the low 90s on room air at rest but dropped to the mid 80s with minimal exertion. Chest x-ray showed vascular congestion and pulmonary edema. Foot x-rays showed marked generalized bilaterallower extremity soft tissue edema with bilateral calcaneal spurs. CBC and BMP were fairly benign. NT proBNP normal at 168 though this is underestimated with obesity. Given CHF exacerbation with hypoxia, hospitalist was contacted for admission. I saw the patient at bedside in the ED. Patient was laying back in bed, conversing normally, in no acute distress. Denies any shortness of breath at rest. Denies any chest pain. Has chronic back pain that his writing him currently. Otherwise denies any other acute concerns. Will be admitted for further management. [facility] Medical History Tracheal stenosis Obesity hypoventilation syndrome SINA (obstructive sleep apnea) Tobacco abuse COPD (chronic obstructive pulmonary disease) History of cellulitis Morbid obesity Home Medications ?Medication ?Instructions ?Recorded ?Last Taken ?Type chlorthalidone 50 mg tablet 12.5 mg (1/4 x 50 mg) PO D AILY 30 09/08/24 Unknown Rx days #8 tabs dextromethorphan-guaifenesin ER 60 1 tab PO Q12H 7 day s #14 tabs 09/08/24 Unknown Rx mg-1,200 mg tab,extend release,12hr (Mucinex DM) lisinopril 20 mg tablet 20 mg PO DAILY 30 days #30 t abs 09/08/24 Unknown Rx nicotine 14 mg/24 hr daily 14 mg transdermal DAILY 4 w eeks 09/08/24 Unknown Rx transdermal patch #28 ea albuterol sulfate 90 mcg/actuation 1 inh inhalation Q6 H PRN shortness 11/09/24 Unknown History breath activated powder inhaler of breath losartan 50 mg-hydrochlorothiazide 1 tab PO DAILY 10/30 05/26 Unknown History 12.5 mg tablet Allergy/AdvReac Type Severity Reaction Status Date / Time No Known Allergies Allergy Verified 11/09/24 22:03 Family History Mother Cancer Father Cancer Surgical History History of cholecystectomy History of appendectomy Social History household members: friend(s) 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 Smoking Status: Current every day smoker tobacco type: cigarettes Tobacco: How many years used: 36 alcohol intake: never substance use type: does not use ROS Constitutional Constitutional: Reports fatigue; Denies chills, fever(s) or weakness Eyes Eyes: Denies change in vision Cardiovascular Cardiovascular: Reports dyspnea on exertion and edema; Denies chest pain, lightheadedness, orthopnea or palpitations Respiratory/Chest Respiratory/Chest: Reports shortness of breath with exertion; Denies cough, shortness of breath at rest or wheezing Gastrointestinal Gastrointestinal: Denies abdominal pain Musculoskeletal Musculoskeletal: Denies arthralgias or myalgias Vital Signs Vital Signs Vital Signs: 11/09/24 22:00 11/09/24 22:29 11/09/24 23:59 Temperature 97.9 F Temperature Source Oral Pulse Rate 82 67 Respiratory Rate 18 21 H Blood Pressure 131/79 H 154/81 H Blood Pressure Mean 96 105 Pulse Ox 91 95 92 Oxygen Delivery Method Room Air Room Air Room Air 11/10/24 00:04 Temperature 98.1 F Temperature Source Pulse Rate 69 Respiratory Rate 18 Blood Pressure 154/81 H Blood Pressure Mean 105 Pulse Ox 92 Oxygen Delivery Method Weight Weight: 233.9 kg Body Mass Index (BMI) 71.8 Physical Exam Const alert, oriented x3 and no apparent distress Constitutional Narrative: Middle-age male, super morbid obesity, otherwise laying back comfortably in bed,conversing normally, in no acute distress. General Appearance: cooperative and comfortable HEENT normocephalic, head/scalp atraumatic, hearing grossly normal bilaterally, nasal mucous membranes and turbinates normal and moist oral mucous membranes Eyes PERRL, EOMs intact bilaterally and conjunctivae normal Neck full ROM Chest inspection of chest normal Resp normal respiratory effort and no use of accessory muscles Resp Narrative: Breathing comfortably on room air at rest. Diminished breath sounds throughout with crackles noted in mid lung zones bilaterally. No wheezing noted. Cardio regular rate, regular rhythm, no murmurs and peripheral pulses 2+ throughout GI normal to inspection, nondistended, normoactive bowel sounds, soft to palpation,non-tender and non-distended Back/Spine normal ROM Extremity Extremity Narrative: +3-4 lower extremity edema with erythema and chronic venous stasis changes noted. Psych mental status grossly normal Results Lab / Micro Data 11/09/24 22:28 11/09/24 22:28 Labs: Laboratory Results - last 24 hr 11/09/24 22:28: WBC 8.3, RBC 5.37, Hgb 15.4, Hct 47.9, MCV 89.2, MCH 28.7, MCHC 32.2, RDW Std Deviation 46.8 H, RDW Coeff of Pradeep 14.5, Plt Count 253, MPV 9.6, Immature Gran % (Auto) 0.200, Neut % (Auto) 66.1, Lymph % (Auto) 22.6, [place] % (Auto) 8.4, Eos % (Auto) 2.2, Baso % (Auto) 0.5, Absolute Neuts (auto) 5.5, Absolute Lymphs (auto) 1.88, Nucleated RBC % 0, Sodium 139, Potassium 3.9, Chloride 101, Carbon Dioxide 26.8, Anion Gap 11, BUN 11, Creatinine 0.73, Estim Creat Clear Calc 232.29, Est GFR (MDRD) Non-Af 109, BUN/Creatinine Ratio 14.3, Glucose 93, Calcium 9.0, NT pro BNP II 184 Imaging Radiology Impression Chest X-Ray 11/09/24 22:18 IMPRESSION: Cardiomegaly with vascular congestion and pulmonary edema. Reading Location: [facility] Lumbar Spine X-Ray 11/09/24 22:18 IMPRESSION: No evidence of acute fracture or subluxation. Multilevel degenerative changes. Reading Location: [facility] Foot X-Ray 11/09/24 22:23 IMPRESSION: 1. Bilateral calcaneal spurs. No acute abnormality. 2. Marked generalized bilateral lower extremity soft tissue edema. Reading Location: [facility] Foot X-Ray 11/09/24 22:45 IMPRESSION: 1. Bilateral calcaneal spurs. No acute abnormality. 2. Marked generalized bilateral lower extremity soft tissue edema. Reading Location: [facility] Assessment & Plan Assessment/Plan (1) Acute on chronic heart failure with preserved ejection fraction (HFpEF): (2) Bilateral leg edema: PLAN: Plan Patient is a 53-year-old male who presented to [facility] ED on 11/10/2024 with worsening shortness of breath and lower extremity swelling. 1. Acute on chronic HFpEF with hypoxia with exertion, lower extremity swelling with chronic venous stasis changes ? Admit under inpatient status to PCU. Chest x-ray with cardiomegaly with vascular congestion pulmonary edema. Foot x-rays with marked bilateral lower extremity swelling. BNP normal but underestimated with obesity. Hypoxic to 86%on exertion in the ED. Last echo in 12/2023 showed EF 65%, with otherwise technically difficult due to body habitus. Will treat with IV Lasix 40 mg every8 hours for now. Monitor daily BMP and urine output. 2. Acute on chronic debility with homelessness, history of chronic back pain ? PT/OT/case management consulted. Patient reports recently becoming homeless, unclear where he is living right now. Debility is primarily due to obesity, chronic back pain, severe lower extremity swelling and bilateral heel pain from calcaneal spurs. Appreciate therapy and case management recommendations. Chronic medical conditions: ? Class III obesity with SINA: BMI 71 on admit. Complicates hospital course, care and prognosis. Continue PAP therapy at night. ? Hypertension: Continue home losartan?hydrochlorothiazide. ? COPD: No wheezing on exam, not in acute exacerbation. Continue home albuterolinhaler as needed. ? Tobacco abuse: Denied need for nicotine replacement therapy on admission. Discussed cessation on discharge. DVT prophylaxis: Lovenox twice daily CODE STATUS: Full code, verified Expected disposition: TBD Total clinical time spent by myself addressing the patient's medical issues, reviewing all the data, and collaborating with patient's care team: 75 minutes. Charges/Coding Visit Charges Inpatient E&M: 81147 Init Hosp L3 11/10/24 0042 <Electronically signed by Efraín Toledo DO> Cosigner Signature (if applicable): CC: Dr. Efraín Toledo DO; Dr. Juliana Cox DO~ Signed [facility] Work Phone: Reason for referral (narrative)* Consultation (Emergency) - Open Specialty Diagnoses / Procedures Referred By Torito hussein Referred To Contact Family Medicine Diagnoses PVD (peripheral vascular disease) ([facility]) Sara Ramirez MD [address] [place] [address] [facility] [address] [place] [address] Referral ID Status Reason Start Date Expiration Date Visits Re quested Visits Authorized [id number] Open 11/26/2023 12/26/2024 1 1 * (Routine) - Incomplete Specialty Diagnoses / Procedures Referred By Torito hussein Referred To Contact Sara Ramirez MD [address] [place] [address] Referral ID Status Reason Start Date Expiration Date V isits Requested Visits Authorized [id number] Incomplete 11/26/2023 12/26/2024 1 1 * Wound Consultation (Routine) - Open Specialty Diagnoses / Procedures Referred By Contac t Referred To Contact Wound Care Diagnoses Acute bilateral venous stasis dermatitis Sara Ramirez MD [address] [address] [facility] [address] [place] [address] Referral ID Status Reason Start Date Expiration Date Visits Re quested Visits Authorized [id number] Open 11/26/2023 12/26/2024 1 1 [facility]No reason for referral information availableWMercy [facility] Work Phone: Chief Complaint and Reason for [...] August 4:44am SINA (obstructive sleep apnea) September 06, 4:44am Pneumonia September 06, 2024 4:44am Tobacco [...] August 4:44am SINA (obstructive sleep apnea) September 06, 2 025 4:44am Pneumonia September 06, 2024 4:44am Tobacco abuse September 06, 2024 4:44am Tracheal stenosis September 06, 2024 4:44am Acute exacerbation of chroni c obstructive pulmonary disease (COPD) September 06, 2024 4:44am Chief Complaint Admit Date PNEUMONIA, AE COPD AND ESPIRATORY INSUFF ICIENCY. September 06, 2024 4:44am PNEUMONIA, AE COPD AND ESPIRATORY INSUFF ICIENCY. September 07, 2024 4:06pm PNEUMONIA, AE COPD AND ESPIRATORY INSUFF ICIENCY. September 08, 2024 10:50am CHF EXACERBATION November 10, 2024 12:0 6am Reason for Visit Admit Date Acute respiratory insufficiency September 06, 2024 4:44am Elevated d-dimer September 06, 2024 4:44am Morbid obesity with BMI of 50.0-59.9, ad ult September 06, 2024 4:44am SIAN (obstructive sleep apnea) September 06, 2 025 4:44am Pneumonia September 06, 2024 4:44am Tobacco abuse September 06, 2024 4:44am Acute exacerbation of chroni c obstructive pulmonary disease (COPD) September 06, 2024 4:44am Obesity hypoventilation syndrome August 4:44am Tracheal stenosis September 06, 2024 4:44am Acute hypoxic respiratory failure October 302024 12:06am Acute on chronic heart failu re with preserved ejection fraction (HFpEF) November 10, 2024 12:06am Back pain November 10, 2024 12:0 6am Bilateral leg edema November 10, 2024 12:0 6am CHF (congestive heart failure) October 12:06am Dyspnea on exertion November 10, 2024 12:0 6am Heel pain, bilateral November 10, 2024 12: 06am SINA (obstructive sleep apnea) November 10, 2024 12:06am Chief Complaint Admit Date PNEUMONIA, AE COPD AND ESPIRATORY INSUFF ICIENCY. September 06, 2024 4:44am PNEUMONIA, AE COPD AND ESPIRATORY INSUFF ICIENCY. September 07, 2024 4:06pm PNEUMONIA, AE COPD AND ESPIRATORY INSUFF ICIENCY. September 08, 2024 10:50am CHF EXACERBATION W/ HYPOXIA November 10, 025 12:06am CHF EXACERBATION W/ HYPOXIA November 11, 2 025 3:18pm CHF EXACERBATION W/ HYPOXIA November 12, 2 025 6:37pm CHF EXACERBATION W/ HYPOXIA November 13, 2 025 5:38pm CHF EXACERBATION W/ HYPOXIA November 14, 2 025 3:39pm Family History No Family History Records Found Relationship Condition Age at Onset Recorded Date/T barbara Mother Other Cancer History?ovary Unknown J anuary 2022 11:53pm Endocrine?Hypothyroidism Unknown Shaka uary 2022 11:53pm Unknown Endocrine?Hypothyroidism Unknown [facility] 2013 9:08am Gastrointestinal?Col orectal Cancer Unknown July 25, 2013 9:08am Musculoskeletal?Arthritis Unknown [facility] 2013 9:08am Psychological and Psychosocial?Alcohol Abuse Unknown July 25, 2013 9:08am Reproductive?Down Syndrome Unknown [facility] 2013 9:08am Respiratory?Lung Cancer Unknown [facility] 2013 9:08am Relationship Condition Age at Onset Recorded Date/T barbara mother Malignant neoplasm Unknown father Malignant neoplasm Unknown Advance Directives No Advanced Directives Records Found Advance Directive Response Recorded Date/ Time Advance Directives No May 20, 2022 11:26pm Advance Directives Information Provided Yes May 20, 2022 11:26pm Advanced Directive on File No Claus langston 2022 11:26pm Date Activated Date Inactivated Comments 11/26/2023 11:42 AM Date Activated Date Inactivated Comments 11/22/2023 5:14 PM 11/26/2023 11:42 AM Advance Directive Response Recorded Date/ Time Living Will No June 14 025 2:15am Do you have a Healthcare Power of Traffic Investigator? No June 14, 2024 2:15am Do you have a Healthcare Power of Traffic Investigator? No September 06, 2024 12:54am Advance Directive Response Recorded Date/ Time Living Will No June 14 2:15am Do you have a Healthcare Power of Traffic Investigator? No June 14, 2024 2:15am Do you have a Healthcare Power of Traffic Investigator? No September 06, 2024 6:16am Advance Directive Response Recorded Date/ Time Do you have a Healthcare Power of Traffic Investigator? No September 06, 2024 6:16am Do you have a Healthcare Power of Traffic Investigator? No November 09, 2024 10:02pm Advance Directive Response Recorded Date/ Time Do you have a Healthcare Power of Traffic Investigator? No September 06, 2024 6:16am Do you have a Healthcare Power of Traffic Investigator? 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 Jim Cortes DO Emergency Provider Active Start: June 14, 2024 End: June 14, 2024 Dr. Isma Schneider DO Admit Provider Active Start: June 14, 2024 End: June 14, 2024 Dr. Isma Schneider DO Other Provider Active Start: June 14, 2024 End: June 14, 2024 Dr. Ferny Coats DO Attending Provider Active Start: June 14, 2024 End: June 14, 2024 Team Status: Active Member Role Status Dates No Primary Care Physician Primary Care Provider Active Start: June 14, 2024 Dr. Jim Cortes DO Emergency Provider Active Start: June 14, 2024 Dr. Isma Schneider DO Admit Provider Active Start: June 14, 2024 Dr. Isma Schneider DO Other Provider Active Start: June 14, 2024 Dr. Ferny Coats DO Attending Provider Active Start: June 14, 2024 Dr. Ferny Coats DO Other Provider Active Star t: June 14, 2024 Team Status: Active Member Role Status Dates No Primary Care Physician Primary Care Provider Active Start: September 06, 2024 Dr. Zachariah Lantigua MD Emergency Provider Active Start: September 06, 2024 Dr. Isma Schneider DO Admit Provider Active Start: September 06, 2024 Dr. Isma Schneider DO Attending Provider Active Start: September 06, 2024 Team Status: Inactive Member Role Status Dates No Primary Care Physician Primary Care Provider Active Start: September 06, 2024 End: September 08, 2024 Dr. Zachariah Lantigua MD Emergency Provider Active Start: September 06, 2024 End: September 08, 2024 Dr. Isma Schneider DO Admit Provider Active Start: September 06, 2024 End: September 08, 2024 Dr. Isma Schneider DO Other Provider Active Start: September 06, [...] Active Start: September 07, 2024 Dr. Isma Schneider DO Admit Provider Active Start: September 07, 2024 Dr. Isma Schneider DO Other Provider Active Start: September 07, 2024 Dr. Francesco Montgomery MD Attending Provider Active Start: September 07, 2024 Dr. Francesco Montgomery MD Other Provider Active Sta rt: September 07, 2024 Team Status: Active Member Role Status Dates No Primary Care Physician Primary Care Provider Active Start: September 08, 2024 Dr. Zachariah Lantigua MD Emergency Provider Active Start: September 08, 2024 Dr. Isma Schneider DO Admit Provider Active Start: September 08, 2024 Dr. Isma Schneider DO Other Provider Active Start: September 08, 2024 Dr. Francesco Montgomery MD Attending Provider Active Start: September 08, 2024 Dr. Francesco Montgomery MD Other Provider Active Sta rt: September 08, 2024 Team Status: Active Member Role/Relationship Status Dates Dr. Juliana Cox DO Primary Care Provider Active Team Status: Inactive Member Role/Relationship Status Dates No Primary Care Physician Primary Care Provider Active Start: September 06, 2024 End: September 08, 2024 Dr. Zachariah Lantigua MD Emergency Provider Active Start: September 06, 2024 End: September 08, 2024 Dr. Isma Schneider DO Admit Provider Active Start: September 06, 2024 End: September 08, 2024 Dr. Isma Schneider DO Other Provider Active Start: September 06, 2024 End: September 08, 2024 Dr. Francesco Montgomery MD Attending Provider Active Start: September 06, 2024 End: September 08, 2024 Dr. Francesco Montgomery MD Other Provider Active Sta rt: September 06, 2024 Team Status: Active Member Role/Relationship Status Dates No Primary Care Physician Primary Care Provider Active Start: September 06, 2024 Dr. Ferny Gustafson MD Attending Provider Active S tart: September 06, 2024 Dr. Isma Schneider , DO Referring Provider Active Start: September 06, 2024 Team Status: Active Member Role/Relationship Status Dates No Primary Care Physician Primary Care Provider Active Start: September 07, 2024 Dr. Zachariah Lantigua MD Emergency Provider Active Start: September 07, 2024 Dr. Isma Schneider , DO Admit Provider Active Start: September 07, 2024 Dr. Isma Schneider , DO Other Provider Active Start: September 07, 2024 Dr. Francesco Montgomery MD Attending Provider Active Start: September 07, 2024 Dr. Francesco Montgomery MD Other Provider Active Sta rt: September 07, 2024 Team Status: Active Member Role/Relationship Status Dates No Primary Care Physician Primary Care Provider Active Start: September 08, 2024 Dr. Zachariah Lantigua MD Emergency Provider Active Start: September 08, 2024 Dr. Isma Schneider , Admit Provider Active Start: September 08, 2024 Dr. Isma Schneider , Other Provider Active Start: September 08, 2024 Dr. Francesco Montgomery MD Attending Provider Active Start: September 08, 2024 Dr. Francesco Montgomery MD Other Provider Active Sta rt: September 08, 2024 Team Status: Active Member Role/Relationship Status Dates Dr. Brennon Steiner DO Emergency Provider Active Start: November 10, 2024 Dr. Juliana Cox , Primary Care Provider Active Start: November 10, 2024 Dr. Efraín Toledo , Admit Provider Active Start: November 10, 2024 Dr. Efraín Toledo DO Attending Provider Active Start: November 10, 2024 Dr. Efraín Toledo , DO Other Provider Active Start: November 10, 2024 Team Status: Inactive Member Role/Relationship Status Dates Dr. Brennon Steiner DO Emergency Provider Active Start: November 10, 2024 End: November 14, 2024 Dr. Juliana Cox , DO Primary Care Provider Active Start: November 10, 2024 End: November 14, 2024 Dr. Efraín Toledo , DO Admit Provider Active Start: November 10, 2024 End: November 14, 2024 Dr. Efraín Toledo , DO Other Provider Active Start: November 10, 2024 End: November 14, 2024 Dr. Francesco Montgomery MD Attending Provider Active Start: November 10, 2024 End: November 14, 2024 Dr. Adelso Paniagua , DO Other Provider Active S tart: November 10, 2024 End: November 14, 2024 Team Status: Active Member Role/Relationship Status Dates Dr. Brennon Steiner , DO Emergency Provider Active Start: November 11, 2024 Dr. Juliana Cox , DO Primary Care Provider Active Start: November 11, 2024 Dr. Efraín Toledo , DO Admit Provider Active Start: November 11, 2024 Dr. Efraín Toledo , DO Other Provider Active Start: November 11, 2024 Dr. Adelso Paniauga , DO Attending Provider Active Start: November 11, 2024 Dr. Adelso Paniagua , DO Other Provider Active S tart: November 11, 2024 Team Status: Active Member Role/Relationship Status Dates Dr. Brennon Steiner , DO Emergency Provider Active Start: November 12, 2024 Dr. Juliana Cox , DO Primary Care Provider Active Start: November 12, 2024 Dr. Efraín Toledo , DO Admit Provider Active Start: November 12, 2024 Dr. Efraín Toledo , DO Other Provider Active Start: November 12, 2024 Dr. Adelso Paniagua , DO Attending Provider Active Start: November 12, 2024 Dr. Adelso Paniagua , DO Other Provider Active S tart: November 12, 2024 Team Status: Active Member Role/Relationship Status Dates Dr. Brennon Steiner , DO Emergency Provider Active Start: November 13, 2024 Dr. Juliana Cox , DO Primary Care Provider Active Start: November 13, 2024 Dr. Efraín Toledo , DO Admit Provider Active Start: November 13, 2024 Dr. Efraín Toledo , DO Other Provider Active Start: November 13, 2024 Dr. Adelso Paniagua , DO Attending Provider Active Start: November 13, 2024 Dr. Adelso Paniagua , DO Other Provider Active S tart: November 13, 2024 Team Status: Active Member Role/Relationship Status Dates Dr. Brennon Steiner , DO Emergency Provider Active Start: November 14, 2024 Dr. Juliana Cox , DO Primary Care Provider Active Start: November 14, 2024 Dr. Efraín Toledo , DO Admit Provider Active Start: November 14, 2024 Dr. Efraín Toledo , Other Provider Active Start: November 14, 2024 Dr. Francesco Montgomery MD Attending Provider Active Start: November 14, 2024 Dr. Francesco Montgomery MD Other Provider Active Sta rt: November 14, 2024 Dr. Adelso Paniagua DO Other Provider Active S tart: November 14, 2024 (unrecognized sect ion and content) No Status Records FoundNo Status Records FoundNo Status Records Found INFORMATION SOURCE (unrecogn ized section and content) DATE CREATED AUTHOR 05/28/2022 [facility] DATE CREATED AUTHOR AUTHOR'S ORGANIZ ATION 12/30/2023 [employer] DATE CREATED AUTHOR AUTHOR'S ORGANIZ ATION 11/24/2024 [facility] Reason for Visit (unrecogniz ed section and content) Reason Comments Leg Swelling Specialty Diagnoses / Procedures Referred By Contac t Referred To Contact Diagnoses Hypoxia Bilateral lower leg cellulitis Acute congestive heart failure, unspecified heart failure type (HCC) Heart failure (HCC) Procedures NO PC OBS/NO TIME LIMIT/ NO PROC Referral ID Status Reason Start Date Expiration Date Visits Re quested Visits Authorized [id number] 1 Scheduled Active and Recently Administ ered Medications (unrecognized section and content) Medication Order 11/24/2023 11/25/2023 11/26/2023 Aquacel-Ag Extra Hydrofiber Application 1 Application 1 Application , Topical, DAILY, First dose on Tue11/24/23 at 0900, Until Discontinued, Care: 1. Cleanse wound with: Normal Saline 2. Apply Aquacel ag cut to fit wounds on the bilateral lower legs 3. Cover wound with: Unna zinc strips loosely wrapped followed by kerlix from ankle to knee. , Wound 11/22/23 Pretibial Distal;Right, Wound 11/22/23 Pretibial Left, Wound 11/22/23 Pretibial Distal;Left 1818 (Given - Provider: Jessica Taveras RN) 180 [...] 24 HOURS SCHEDULED (Daily), First dose on Tue11/24/23 at 1245, Until Discontinued, Caution: This medication [...] dose on Tue11/22/23 at 1745, Until Discontinued 09 (Not Given - Provider: Jessica Taveras RN - Reason: Patient/family refused) 0918 (Not Given - Provider: Emma Larkin LPN - Reason: Patient/family refused) 0819 (Not Given - Provider: Yarely Arana LPN - Reason: Patient/family refused) potassium chloride SA (K-DUR,KLOR-CON M20) CR tablet 40 mEq (COMPLETED) 40 mEq, Oral, ONCE, 1 dose, On Tue11/24/23 at 0715, If potassium level 3.4-3.6 Repeat potassium in AM 0906 (Given - Provider: Jessica Taveras RN) silver [...] 1818 (Given - Provider: Jessica Taveras RN) 180 (Given - Provider: Emma Larkin LPN) PRN [...] subsequent to initial labs (refer to the [facility] Electrolyte Replacement Orders) Other, PRN, For electrolyte abnormalities, Starting on Tue11/22/23 at 1713, Until Discontinued, For Potassium level <=3.9 or [...] PRN, Smoking cessation, Starting on Tue11/22/23 at 1713, [...] tolerate oral intake, Starting on Tue11/22/23 at 1713, Until Discontinued, Caution: This medication looks and/or [...] tolerate oral intake, Starting on Tue11/22/23 at 1713, Until Discontinued, Caution: This medication looks and/or [...] BE BASED ON THE PRIMARY CLINICAL RECORDS. [employer] provides no warranty or guarantee of the accuracy or completeness of information in this document.
[2024-12-14 22:14] VITALS: BP 122/81; PULSE 71; RESP 18; TEMP 36.6; O2SAT 92
--- NOTE | 2024-12-14 22:14 | EDS_ITS ---
HPI History of Present Illness Chief Complaint: Cellulitis Narrative Narrative: Patient is a 54-year-old male presenting to emergency department for concerns of cellulitis. Patient is at a facility. Has a past medical history as below. Reportedly his feet looked purple to the nurses at his facility and they sent him here to be evaluated. He states that he does have a wound on his left lower leg that is seen by wound care. He is currently on Bactrim for it. He denies any numbness or weakness in his legs. Denies any pain in his legs. Denies fever or chills. Denies nausea or vomiting. [facility] Medical History Acute on chronic heart failure with preserved ejection fraction (HFpEF) Depression Smoker Smoker Tracheal stenosis Obesity hypoventilation syndrome SINA (obstructive sleep apnea) COPD (chronic obstructive pulmonary disease) Tobacco abuse History of cellulitis Morbid obesity Home Medications ?Medication ?Instructions ?Recorded ?Last Taken ?Type albuterol sulfate 90 mcg/actuation 1 inh inhalation Q6 H PRN shortness 11/09/24 Unknown History breath activated powder inhaler of breath losartan 50 mg tablet 50 mg PO DAILY 1 month #30 t abs 11/14/24 Unknown Rx metoprolol succinate 25 mg 25 mg PO DAILY #0 tabs 10/30 10/24 Unknown Rx tablet,extended release 24 hr baclofen 5 mg tablet 5 mg PO DAILY 12/14/24 Unkno wn History cholecalciferol (vitamin D3) 125 125 mcg PO DAILY 11/30 09/23 Unknown History mcg (5,000 unit) capsule cyanocobalamin (vitamin B-12) 1,000 mcg PO DAILY 12/14 Unknown History 1,000 mcg tablet furosemide 40 mg tablet 40 mg PO DAILY 12/14/24 Unkn own History loperamide 2 mg capsule 2 mg PO Q12H PRN loose stool 12/14/24 Unknown History mometasone-formoterol HFA 100 2 inh inhalation DAILY 0 12/14/24 Unknown History mcg-5 mcg/actuation aerosol inhaler (Dulera) potassium chloride 20 mEq 20 meq PO DAILY 12/14/24 Unk nown History tablet,extended release(part/cryst) sulfamethoxazole 800 1 tab PO QHS 12/14/24 Unknow n History mg-trimethoprim 160 mg tablet (Bactrim DS) tramadol 50 mg tablet 50 mg PO BID 12/14/24 Unknow n History Allergy/AdvReac Type Severity Reaction Status Date / Time No Known Allergies Allergy Verified 12/14/24 21:14 Family History Mother Cancer Father Cancer Surgical History History of cholecystectomy History of appendectomy Social History household members: friend(s) 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 No acute distress. Chronically ill-appearing, obese. HEENT: Head is normocephalic and atraumatic, sinuses nontender, pupils equal round and reactive. Nares are patent. Oropharynx and throat exams normal. Neck: Supple without lymphadenopathy nontender Cardiovascular: Regular rate and rhythm, no murmurs. No rubs or gallops. Normal S1 and S2 Respiratory: Clear to auscultation bilaterally. No wheezes, rales, rhonchi Abdominal: Protuberant. Soft and nontender. Normal bowel sounds. No guarding or rebound. Nonsurgical abdomen Extremities: Bilateral lower extremities are symmetrically edematous. They both have some weeping secondary to his CHF. He has a wound to his left lateral distal tib-fib that has a little bit of erythema but no significant fluctuance or drainage. Sensation and motor intact in bilateral lower extremities. Unable to palpate pulses due to edema however DP and PT pulses are dopplered with strong pulse. No pallor to feet or legs. Warm to touch. Neurological: Cranial nerves II through XII are grossly intact. Normal strength and sensation. Normal cerebellar function The rest of the physical exam is unremarkable Const Vital Signs: 12/14/24 21:12 12/14/24 21:14 12/14/24 22:14 Temperature 98.0 F 98.0 F 98 F Temperature Source Oral Oral Oral Pulse Rate 69 69 71 Respiratory Rate 16 16 18 Blood Pressure 149/64 H 149/64 H 122/81 H Blood Pressure Mean 92 92 94 Pulse Ox 91 94 92 Oxygen Delivery Method Room Air Room Air Room Air 12/14/24 22:14 Temperature 98 F Temperature Source Pulse Rate 71 Respiratory Rate 18 Blood Pressure 122/81 H Blood Pressure Mean 94 Pulse Ox 92 Oxygen Delivery Method MDM MDM MDM Narrative Medical decision making narrative: Patient is a 54-year-old male presenting to the emergency department for possible cellulitis. Patient was seen and examined. Vitals are stable. Patient resting bed comfortably no acute distress. Differential includes but is not limited to: Cellulitis, DVT, acute ischemic limb There are no signs of acute limb ischemia. No pallor. Normal pulses. Normal motor and sensation. Patient states that he thinks they sent him here due to some skin changes on his feet but states that in the light his feet look normal to him. The wound on his left lateral aleman is being cared for at wound care center and I verified that he is on Bactrim for this in his paperwork. I do not see any indication to change this antibiotic or add an antibiotic. He has no pain to palpation of his calf and no asymmetric swelling to be concerned about a DVT. Patient is stable for transfer back to his facility. He is agreeable. Patient discharged from the Emergency Department. I do not feel that the patient's evaluation reveals any acute reason for admission at this time. I instructed them to either follow-up with their primary care physician or promptly return to the Emergency Department for reevaluation should symptoms worsen or new symptoms develop. I explained what symptoms would indicate the need to return to the emergency department. Shared decision making was used. The patient voiced understanding of the treatment plan and is agreeable with it. Clinical impression Wound check Discharge Plan Triage Chief Complaint: Cellulitis ED Provider: Zora Beckman Dx/Rx/DC Orders Clinical Impression: Bilateral leg edema Instructions: Cellulitis Dc, ED Peripheral Edema, Bilateral Prescriptions: No Action albuterol sulfate 90 mcg/actuation aerosol powdr breath activated 1 inh inhalation Q6H PRN (Reason: shortness of breath) metoprolol succinate 25 mg Tablet Extended Release 24 Hr 25 mg PO DAILY Qty: 0 0RF losartan 50 mg tablet 50 mg PO DAILY 30 Days Qty: 30 1RF baclofen 5 mg tablet 5 mg PO DAILY sulfamethoxazole-trimethoprim [Bactrim DS] 800-160 mg tablet 1 tab PO QHS Dulera 100-5 mcg/actuation HFA aerosol inhaler 2 inh inhalation DAILY loperamide 2 mg capsule 2 mg PO Q12H PRN (Reason: loose stool) tramadol 50 mg tablet 50 mg PO BID cyanocobalamin (vitamin B-12) 1,000 mcg tablet 1,000 mcg PO DAILY cholecalciferol (vitamin D3) 125 mcg (5,000 unit) capsule 125 mcg PO DAILY furosemide 40 mg Tablet 40 mg PO DAILY potassium chloride 20 mEq Tablet,Er Particles/Crystals 20 meq PO DAILY Primary Care Provider: Juliana Cox Referrals: Juliana Cox, [Primary Care Provider] - 2 Days Activity Restrictions/Additional Instructions: Your evaluation in the Emergency Department did not reveal any acute reason for admission. However, I want to emphasize that you may be early in the course of a disease process or illness even if it is not present. For this reason you should follow-up within 24 hours for reevaluation with either your primary care physician or if necessary back here in the Emergency Department. You should return to the Emergency Department immediately if your symptoms worsen or new symptoms develop. Print Language: [place] Zealander Disposition Disposition: Home, Self Care Discharge Date/Time: 12/14/24 22:45
--- NOTE | 2024-12-14 22:25 | ED.RN ---
This RN spoke to Irving at [facility], who takes care of the patient at [facility]. This RN updated the patient on our findings and informed Irving that d/t the patient being on antibiotics, a diuretic, follows with wound care, and has normal vital signs while in the ED, he is safe to go back to the facility. The patient is going to find a personal ride back to [facility] and is discharged at this time. Irving had no questions at this time and is agreeable with this plan.
== END 2024-12-14 22:45 | disposition home or self-care (01) ==
PROVIDERS: Emergency Provider Student in an Organized Health Care Education/Training Program; PCP Student in an Organized Health Care Education/Training Program; Visit Provider Student in an Organized Health Care Education/Training Program
DX: R60.0 Localized edema (principal); I50.33 Acute on chronic diastolic (congestive) heart failure; J44.9 Chronic obstructive pulmonary disease, unspecified; Z90.49 Acquired absence of other specified parts of digestive tract; Z79.51 Long term (current) use of inhaled steroids; F17.210 Nicotine dependence, cigarettes, uncomplicated
CPT/HCPCS: 99284

== ENCOUNTER 2025-01-02 13:59 | Emergency (ER) | payer BC, MEDICAID, SELFPAY ==
[2025-01-02 14:00] VITALS: BP 127/53; PULSE 68; RESP 18; TEMP 36.4; O2SAT 92
--- NOTE | 2025-01-02 14:31 | EDS_ITS ---
HPI History of Present Illness Chief Complaint: Lower Extremity Injury Detail of Chief Complaint: Left lower extremity pain, chronic wound, reported wheezing RUL, frontal Informant: patient and other (Reviewed care home records and read reason he was sent in. They are numerous.) Limited: other (Patient a good informant. He has not know what meds he is on or why he is on medication.) Onset/Context/Timing Onset: Month(s) (Wound has been present for 2 months. The pain apparently is worse and reported to be a 10 out of 10) Context: Gradual Onset Timing: Continuous Quality: Wound anterior distal left leg, venous stasis dermatitis with P OP Location: Anterior distal left leg Current Severity: Mild Maximum Severity: Severe Worsened by: Light touch/tactile stimulus Relieved by: Nothing Associated Symptoms Associated Symptoms: Reports chills. Narrative Narrative: Patient is a 54-year-old male. He is a poor informant. His BMI is greater than 50. He has history of chronic respiratory failure, obstructive sleep apnea, congestive heart failure, bilateral lower extremity edema, bifrontal head discomfort, tobacco use. He states he smokes 2 cigarettes a day. 5 years ago he smoked 3 packs/day. The midlevel who saw him reports that he had wheezing right upper lung. He does have a history of COPD. He denies cough. Denies sputum production. He denies rhinorrhea, postnasal drainage with sore throat. He denies pain with breathing or pain at rest. Patient's reports compliance with his medicine. He states they give B12 pills I take them all. Apparently he is receiving tramadol and acetaminophen for his pain. He does report some photophobia. He has no history of migraine headaches. Prior similar symptoms: Yes Recent Illness/Hospitalization: No PFSH [facility] Medical History Acute on chronic heart failure with preserved ejection fraction (HFpEF) Depression Smoker Smoker Tracheal stenosis Obesity hypoventilation syndrome SINA (obstructive sleep apnea) COPD (chronic obstructive pulmonary disease) Tobacco abuse History of cellulitis Morbid obesity Home Medications ?Medication ?Instructions ?Recorded ?Last Taken ?Type albuterol sulfate 90 mcg/actuation 1 inh inhalation Q6 H PRN shortness 11/09/24 Unknown History breath activated powder inhaler of breath losartan 50 mg tablet 50 mg PO DAILY 1 month #30 t abs 11/14/24 Unknown Rx metoprolol succinate 25 mg 25 mg PO DAILY #0 tabs 10/30 10/24 Unknown Rx tablet,extended release 24 hr baclofen 5 mg tablet 5 mg PO DAILY 12/14/24 Unkno wn History cholecalciferol (vitamin D3) 125 125 mcg PO DAILY 11/30 09/23 Unknown History mcg (5,000 unit) capsule cyanocobalamin (vitamin B-12) 1,000 mcg PO DAILY 12/14 Unknown History 1,000 mcg tablet furosemide 40 mg tablet 40 mg PO DAILY 12/14/24 Unkn own History loperamide 2 mg capsule 2 mg PO Q12H PRN loose stool 12/14/24 Unknown History mometasone-formoterol HFA 100 2 inh inhalation DAILY 0 12/14/24 Unknown History mcg-5 mcg/actuation aerosol inhaler (Dulera) potassium chloride 20 mEq 20 meq PO DAILY 12/14/24 Unk nown History tablet,extended release(part/cryst) sulfamethoxazole 800 1 tab PO QHS 12/14/24 Unknow n History mg-trimethoprim 160 mg tablet (Bactrim DS) tramadol 50 mg tablet 50 mg PO BID 12/14/24 Unknow n History doxycycline monohydrate 100 mg 100 mg PO BID #14 CAPSU LES 01/02/25 Unknown Rx capsule gabapentin 300 mg capsule 300 mg PO BID #60 caps 01/02 Unknown Rx Allergy/AdvReac Type Severity Reaction Status Date / Time No Known Allergies Allergy Verified 01/02/25 14:02 Family History Mother Cancer Father Cancer Surgical History History of cholecystectomy History of appendectomy Social History household members: friend(s) 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 ; Denies blurry vision, change in vision or diplopia ENT ENT ED: Denies ear pain, rhinorrhea or sore throat Cardiovascular Cardiovascular: Denies chest pain, palpitations, paroxysmal nocturnal dyspnea or racing heartbeat Respiratory/Chest Respiratory/Chest: Denies cough, dyspnea, dyspnea on exertion, paroxysmal nocturnal dyspnea or sputum Gastrointestinal Gastrointestinal: Reports diarrhea and other Details: Patient reports intermittent diarrhea over the past 2 weeks. He denies blood or mucus in his diarrhea. ; Denies abdominal pain, nausea or vomiting Genitourinary Genitourinary ED: Denies dysuria, hematuria or urinary frequency Musculoskeletal Musculoskeletal: Denies arthralgias or myalgias Integumentary Reports rash and other Details: Superficial wound anterior distal left leg with no drainage at this time. Neurologic Neurologic: Reports headache(s) and weakness; Denies paresthesias Psychiatric Psychiatric: Reports depression; Denies anxiety or suicidal ideation Endocrine Endocrinology: Denies cold intolerance or heat intolerance Hematologic/Lymphatic Hematologic/Lymphatic: Reports systems reviewed and no addt'l complaints, except as documented EXAM Physical Exam Const Vital Signs: 01/02/25 14:00 Temperature 97.6 F L Temperature Source Oral Pulse Rate 68 Respiratory Rate 18 Blood Pressure 127/53 H Blood Pressure Mean 77 Pulse Ox 92 Oxygen Delivery Method Room Air Positive well nourished and well developed Constitutional Narrative: Vital signs are unremarkable. His BMI is greater than 50. He is not well- groomed. General Appearance ED: well developed HEENT Reports dry mucous membranes HEENT Narrative: He has no tenderness over his frontal or maxillary sinuses. Ears normal. Nares patent. Posterior pharynx is normal. Uvula is midline. No deviation tongue with protrusion Mouth ED: Yes dry mucous membranes Mouth: dry mucous membranes Eyes PERRL and EOMs intact bilaterally Eyes Narrative: No photophobia on my exam. Funduscopic exam reveals no papilledema. Cup-to-disc ratio appears normal. Pupils were not dilated. General Eye ED: Negative for pale conjunctiva or scleral icterus Neck no lymphadenopathy, supple and no JVD Neck Narrative: Negative Kernig's presents carrillo sign. Chest Wall inspection of chest normal and palpation of chest normal Resp normal respiratory effort and clear to auscultation bilaterally Cardio regular rate, regular rhythm, S1 normal heart sound, S2 normal heart sound and no murmurs GI normal to inspection, nondistended, normoactive bowel sounds, non-tender, non- distended and no masses; Negative for hepatosplenomegaly Palpation: soft Extremity Negative for normal to inspection Extremity Narrative: Patient has venous stasis dermatitis both lower extremities. Patient has no pain posteriorly, no palpable cords, no tenderness on distribution deep venous system and no leg vein distention. Patient's discoloration is anterior and his pain is anterior. There are no deep venous anteriorly. Furthermore there is slight warmth. There is no induration, fluctuance, lymphangitis or popliteal lymphadenopathy. Patient does have dry skin. Neuro oriented x3 and CN's II-XII intact bilaterally Sensorium / Orientation: alert Psych mental status grossly normal Skin No no rashes or lesions noted, No no wounds and skin turgor normal Skin Narrative: Described under the extremity portion of the medical record. MDM MDM MDM Narrative Medical decision making narrative: Patient may have an early cellulitis. Because he complains of chills we will obtain CBC to assess white count differential. Since the pain is anterior there is no concern for DVT. Even though the practitioner who saw him at the nurse really reported wheezing right upper lobe region there is none at this time. Since he is not tachypneic, tachycardic or hypoxic and is no abnormal oscillatory findings x-ray was not obtained. Lab Data Attestation: I reviewed the patient's lab results. Lab results narrative: CBC is unremarkable. Basic metabolic panel/comprehensive metabolic panel is remarkable for a glucose of 131 with a normal CO2 anion gap. Alkaline phosphatase slightly elevated 158. Labs: Laboratory Results - last 24 hr 01/02/25 14:52 WBC 8.1 RBC 4.78 Hgb 14.2 Hct 42.2 MCV 88.3 MCH 29.7 MCHC 33.6 RDW Std Deviation 42.9 RDW Coeff of Pradeep 13.2 Plt Count 237 MPV 8.9 Sodium 138 Potassium 3.8 Chloride 104 Carbon Dioxide 23.4 Anion Gap 10 BUN 18 Creatinine 0.81 Estim Creat Clear Calc 202.84 Est GFR (MDRD) Non-Af 106 BUN/Creatinine Ratio 22.5 H Glucose 131 H Calcium 9.0 Total Bilirubin 0.71 AST 27 ALT 37 Alkaline Phosphatase 158 H Total Protein 6.9 Albumin 3.7 Globulin 3.3 Albumin/Globulin Ratio 1.1 Treatment and Re-Evaluation :: Patient may have a mild area of cellulitis. Since there is warmth. Since he has no allergies to antibiotics we will prescribe clindamycin. Suspect his pain is due to neuropathy. In my opinion patient is not ready choir or meet criteria for admission. Therefore will discharge back to nursing facility and have him follow-up with the doctor who has been caring for his wound for the past 2 months. Discharge Plan Triage Chief Complaint: Lower Extremity Injury ED Provider: Elvin Gambino Dx/Rx/DC Orders Clinical Impression: Cellulitis of left leg, Ulcer of left lower extremity with fat layer exposed, SINA (obstructive sleep apnea), Morbid obesity with BMI of 50.0-59.9, adult, Leg wound, left, Venous stasis dermatitis, Physical debility Instructions: ED Cellulitis, ED Neuropathy, Peripheral Prescriptions: New doxycycline monohydrate 100 mg capsule 100 mg PO BID Qty: 14 0RF gabapentin 300 mg capsule 300 mg PO BID Qty: 60 0RF No Action albuterol sulfate 90 mcg/actuation aerosol powdr breath activated 1 inh inhalation Q6H PRN (Reason: shortness of breath) metoprolol succinate 25 mg Tablet Extended Release 24 Hr 25 mg PO DAILY Qty: 0 0RF losartan 50 mg tablet 50 mg PO DAILY 30 Days Qty: 30 1RF baclofen 5 mg tablet 5 mg PO DAILY sulfamethoxazole-trimethoprim [Bactrim DS] 800-160 mg tablet 1 tab PO QHS Dulera 100-5 mcg/actuation HFA aerosol inhaler 2 inh inhalation DAILY loperamide 2 mg capsule 2 mg PO Q12H PRN (Reason: loose stool) tramadol 50 mg tablet 50 mg PO BID cyanocobalamin (vitamin B-12) 1,000 mcg tablet 1,000 mcg PO DAILY cholecalciferol (vitamin D3) 125 mcg (5,000 unit) capsule 125 mcg PO DAILY furosemide 40 mg Tablet 40 mg PO DAILY potassium chloride 20 mEq Tablet,Er Particles/Crystals 20 meq PO DAILY Primary Care Provider: Juliana Cox Referrals: Juliana Cox, [Primary Care Provider] - 3-5 Days Print Language: Macedonian Disposition Disposition: Home, Self Care
[2025-01-02 14:44] VITALS: BMI 72.8
[2025-01-02 14:56] LABS: Hematocrit 42.2 % (40-54); Hemoglobin 14.2 g/dL (13.0-16.5); Mean Corp Hgb Conc 33.6 g/dL (32-36); Mean Corpuscular Volume 88.3 fL (80-94); Mean Platelet Vol. 8.9 fl (6.2-12.0); Platelet Count 237 K/mm3 (150-450); RBC Distribution Width CV 13.2 % (11.6-14.6); RBC Distribution Width SD 42.9 fl (35.1-43.9); Red Blood Count 4.78 M/mm3 (4.6-6.2); White Blood Count 8.1 K/mm3 (4.4-11.0)
[2025-01-02 15:28] LABS: AST(SGOT) 27 U/L (<=37); Alanine Aminotransfer ALT/SGPT 37 U/L (<=46); Albumin, Serum 3.7 g/dL (3.5-5.0); Alkaline Phosphatase 158 U/L (40-129); Anion Gap 10 (5-15); BUN 18 mg/dL (4-19); BUN/Creat Ratio 22.5 RATIO (10-20); Calcium,Total 9.0 mg/dL (7.6-11.0); Carbon Dioxide 23.4 mmol/L (21.0-32.0); Chloride 104 mmol/L (98-108); Estimated Creatinine Clearance 202.84 ml/min (50-250); Globulin 3.3 g/dL (2.2-4.2); Glucose 131 mg/dL (70-99); Potassium 3.8 mmol/L (3.3-5.1)
[2025-01-02 16:00] VITALS: BP 127/67; PULSE 64; RESP 20; O2SAT 92
--- NOTE | 2025-01-02 16:32 | ED.RN ---
pt. updated on time of transport, meal tray ordered
[2025-01-02 18:00] VITALS: BP 121/64; PULSE 71
[2025-01-02 19:12] VITALS: BP 132/81; PULSE 71; RESP 17; TEMP 36.9; O2SAT 91
== END 2025-01-02 21:40 | disposition home or self-care (01) ==
PROVIDERS: Emergency Provider Emergency Medicine; PCP Student in an Organized Health Care Education/Training Program; Visit Provider Emergency Medicine
DX: L03.116 Cellulitis of left lower limb (principal); L97.922 Non-pressure chronic ulcer of unspecified part of left lower leg with fat layer exposed; I50.33 Acute on chronic diastolic (congestive) heart failure; J44.9 Chronic obstructive pulmonary disease, unspecified; E66.01 Morbid (severe) obesity due to excess calories; Z68.43 Body mass index [BMI] 50.0-59.9, adult; F17.210 Nicotine dependence, cigarettes, uncomplicated; G47.33 Obstructive sleep apnea (adult) (pediatric); I87.2 Venous insufficiency (chronic) (peripheral); R53.81 Other malaise; Z79.899 Other long term (current) drug therapy; Z79.51 Long term (current) use of inhaled steroids; Z90.49 Acquired absence of other specified parts of digestive tract
CPT/HCPCS: 80053; 85027; 96374; 96375; 99284; A4216; J2405

== ENCOUNTER → 2025-01-07 | Outpatient (CLI) | payer BC, MEDICAID, SELFPAY ==
--- NOTE | 2025-01-07 14:19 | VDLE_ITS ---
Reason For Study Reason For Study: R/O DVT Procedure LEFT This is a venous duplex using B-mode, color flow and GSV is normal. spectral Doppler. CFV is compressible, spontaneous, phasic, competent, Exam performed in department. and demonstrates normal augmentation. The exam was diagnostic. FV is compressible, spontaneous, phasic, competent The study was technically difficult. and demonstrates normal augmentation. Anjana - RN @ [facility]. POP V is compressible, spontaneous, phasic, competent and demonstrates normal augmentation. T/P Trunk is compressible. PTV is compressible. LT PerV is compressible. VL/Venous Duplex US, Unilateral Interpretation Summary Deep veins of the left lower extremity are patent and compressible segmentally. There is no evidence of left lower extremity deep vein thrombosis. Valvular competence appears intact within the p roximal deep venous system on the left . The left great saphenous vein appears patent and compressible segmentally. Ordering Physician: EMILY STEVENSON Referring Physician: Juliana Cox Performed By: Chris Lozada RVT
== END | disposition home or self-care (01) ==
LOC: CVS 13:53
PROVIDERS: PCP Student in an Organized Health Care Education/Training Program
DX: M79.89 Other specified soft tissue disorders (principal); M79.662 Pain in left lower leg
CPT/HCPCS: 93971